=== PATIENT | male | born 1965 | race Caucasian/White ===

== ENCOUNTER 2016-08-04 14:54 | Emergency (ER) | payer OTHER ==
[2016-08-04 15:00] VITALS: BP 171/98; PULSE 112; RESP 20; TEMP 98.1
[2016-08-04] MEDS ORDERED: ACETAMINOPHEN TAB 500 MG TAB PO STA (15:48)
[2016-08-04] MEDS ORDERED: METHOCARBAMOL 500 MG TAB PO STA (15:49)
[2016-08-04] MEDS ORDERED: LIDOCAINE 5% PATCH TOPICAL STA (15:51)
--- NOTE | 2016-08-04 15:57 | ED ---
Fall HPI - General Chief Complaint: Fall Stated Complaint: Fall. Back pain Time Seen by Provider: 08/04/16 15:23 Source: patient Mode of arrival: ambulatory - History of Present Illness Initial Comments: Patient is a 50-year-old male with chronic back and chronic neck pain presenting after mechanical fall yesterday. Fall happened around 4 PM. Patient states he was walking on a deck and slipped on the top of the deck down the 5 stairs to the point where he hit his lower back and his neck on the stairs. Patient denies running. Patient states deck steps were normal and not excessively sloped. He denies hitting his head or loss of consciousness. Patient denies aspirin or anticoagulation. Patient took a [place] 7.5 for his pain. Patient states he lost "a little bit" of stool and urine from injury but that he normally has incontinence. Patient denies fever, chills, chest pain, shortness breath, nausea, vomiting, diarrhea. Patient was able to ambulate into the hospital. Patient was placed in a c-collar at triage. Patient denies weakness, saddle anesthesia. Chart review shows multiple visit for chronic neck and back pain. Last ortho consult 05/27 confirmed that patient has a history of chronic low back pain and right lower extremity radiculopathy. Patient has previously undergone a lumbar fusion at L4-L5 and L5-S1 in 2007 at [facility]. MRI was done 05/26 showing stable post surgical changes of the lumbar spine. - Related Data Home Medications Medication Instructions Recorded Confirmed Diltiazem Cd [Cardizem CD] 240 mg PO DAILY 01/19/14 08/04/16 Omeprazole 20 mg PO DAILY 10/04/14 08/04/16 HYDROcodone/APAP 7.5-325MG [[place] 1 tab PO QID PRN 06/13/16 08/04/16 7.5-325] Lisinopril 40 mg PO DAILY 06/13/16 08/04/16 Allergies Allergy/AdvReac Type Severity Reaction Status Date / Time morphine Allergy Rash/Hives Verified 08/04/16 16:08 ketorolac tromethamine AdvReac Itching Verified 08/04/16 16:08 [From Toradol] metoclopramide HCl AdvReac Unknown Verified 08/04/16 16:08 [From Reglan] prochlorperazine edisylate AdvReac Unknown Verified 08/04/16 16:08 [From Compazine] prochlorperazine maleate AdvReac Unknown Verified 08/04/16 16:08 [From Compazine] Review of Systems ROS Statement: Those systems with pertinent positive or pertinent negative responses have been documented in the HPI. Constitutional: No fever and no chills. HENT: No congestion, no rhinorrhea and no sore throat. Eyes: No discharge and no redness. Respiratory: No cough and no shortness of breath. Cardiovascular: No chest pain and no palpitations. Gastrointestinal: No nausea, no vomiting, no abdominal pain and no diarrhea. Genitourinary: No dysuria and no hematuria. Musculoskeletal: Positive neck and back pain. Skin: No pallor and no rash. Neurological: No dizziness and No headaches. ROS Other: All systems not noted in ROS Statement are negative. Past Medical History Past Medical History: GERD/Reflux, Hypertension, Myocardial Infarction ([place]), Mitral Valve Prolapse (MVP), Pulmonary Embolus (PE), Renal Disease Additional Past Medical History / Comment(s): kidney stones, UTI with urosepsis , renal cysts, chronic back pain with radiation down bilateral legs at times, mitral valve prolapse, "borderline" diabetes, R lower leg fx as 13 yr old, concussion. Last Myocardial Infarction Date:: 2011 History of Any Multi-Drug Resistant Organisms: C-DIFF, MRSA Date of last positivie culture/infection: 2012 MDRO Source:: stool Past Surgical History: Appendectomy, Back Surgery, Cholecystectomy, Heart Catheterization, Hernia Repair Additional Past Surgical History / Comment(s): 2007 back surgery with decompression fusion at [facility], 2011 cardiac cath and plaque "broke up" so no other intervention done, multiple ESWL/ureteral stents/ double J catheters, L inquinal hernia repair, PICC line for ABX for urosepsis-since removed, summer 2015 MRSA infection L axillae and I&D performed. Past Anesthesia/Blood Transfusion Reactions: No Reported Reaction Past Psychological History: No Psychological Hx Reported Additional Psychological History / Comment(s): Pt resides with his mother and stepfather. He uses a cane prn. He drives. He is a . Smoking Status: Never smoker Past Alcohol Use History: None Reported Past Drug Use History: None Reported - Past Family History Mother Family Medical History: Chest Pain / Angina, Congestive Heart Failure (CHF), Osteoarthritis (OA), Thyroid Disorder General Exam - General Exam Comments Initial Comments: Constitutional: Patient appears well-developed and well-nourished. No distress. Head: Normocephalic and atraumatic. Eyes: Conjunctivae and EOM are normal. Right eye exhibits no discharge. Left eye exhibits no discharge. No scleral icterus. Neck: Midline spinous process tenderness and off to the left. C-collar in place. Cardiovascular: Normal rate and regular rhythm. No murmur heard. Pulmonary/Chest: Effort normal and breath sounds normal. No respiratory distress. No wheezes. Abdominal: Soft. No distension. There is no tenderness. There is no rebound and no guarding. : Rectal exam completed with normal tone. Right shoulder: Nontender, no crepitus, no deformity Left shoulder: Nontender, no crepitus, no deformity Right arm: Nontender, no crepitus, no deformity Left arm: Nontender, no crepitus, no deformity Right hand: Nontender, no crepitus, no deformity Left hand: Nontender, no crepitus, no deformity Chest: Nontender, no crepitus, no deformity Pelvis: Stable, nontender, no crepitus, no deformity Back: Lower midline scar present with tenderness along the midline as well as right lower back, no crepitus, no deformity, no step-offs. Positive straight leg test of right leg. Right leg: Nontender, no crepitus, no deformity Left leg: Nontender, no crepitus, no deformity Distal sensation and pulses are present in all 4 extremities. No saddle anesthesia. Neurological: Patient alert and oriented to person, place, and time. Skin: Skin is warm and dry. Not diaphoretic. Nursing notes and vitals reviewed. Limitations: no limitations Course Vital Signs 08/04/16 14:57 Temperature 98.1 F Pulse Rate 112 H Respiratory 20 Rate Blood Pressure 171/98 O2 Sat by Pulse 98 Oximetry - Reevaluation(s) Reevaluation #1: 08/04/16 17:07 Patient given pain control with lidocaine, Tylenol, Robaxin. He is refusing Toradol as it causes him abdominal pain. Informed patient that we will be avoiding opiate medications until CT scan. He is agreeable to this. Medical Decision Making - Medical Decision Making Patient is a 50-year-old male with chronic back and neck pain presenting after mechanical fall. Patient tried [place] at home with some relief. Patient states he had some incontinence but that is old and typical for him. Patient with normal neurological exam, no sound seizure, and normal rectal tone. Patient was able to spontaneous void. Patient was given Robaxin, lidocaine, Tylenol, steroids for his pain. Computed tomography scan was unremarkable for any fracture/dislocations of neck or lumbar spine. Patient states he has [place] at home as well as Robaxin. Patient states he is unable to take Motrin. Patient not requesting lidocaine patch prescription. Patient encouraged to block the pain for 24 hours and then get into a regular back exercise program. Encouraged to return to primary care doctor for possible physical therapy. Also with concern for his narcotic usage -as in the past- he is encouraged to follow up with pain specialist. Prior to discharge, patient was resting comfortably in bed. Course of stay improved. Patient able to get dressed in the room without any difficulty noted. Discussed physical exam and diagnostic tests with patient. Questions answered and patient is agreeable to discharge with close follow up with Primary Care Physician. Instructed to return to Emergency Department if symptoms worsen. - Lab Data Lab Results 08/04/16 Range/Units 17:50 Urine Color Yellow Urine Appearance Clear (Clear) Urine pH 7.5 (5.0-8.0) Ur Specific [place] 1.018 (1.001-1.035) Urine Protein Trace H (Negative) Urine Glucose (UA) Negative (Negative) Urine Ketones Negative (Negative) Urine Blood Negative (Negative) Urine Nitrate Negative (Negative) Urine Bilirubin Negative (Negative) Urine Urobilinogen <2.0 (<2.0) mg/dL Ur Leukocyte Esterase Negative (Negative) Disposition Clinical Impression: Fall, Chronic back pain Disposition: HOME SELF-CARE Condition: Good Instructions: Fall Prevention for Older Adults (ED), Chronic Back Pain (ED), Lower Back Exercises (ED) Additional Instructions: Follow-up with your PCP and/or the pain management referral you're provided the past. Referrals: None,Stated [Primary Care Provider] - 1-2 days
[2016-08-04] MEDS ORDERED: methylPREDNISolone SOD SUCCI 125 MG/2 ML VIAL IM ONE (17:48)
--- NOTE | 2016-08-04 18:07 | CT ---
EXAMINATION TYPE: CT cervical spine wo con DATE OF EXAM: 08/04/2016 5:46 PM COMPARISON: October 28, 2014 HISTORY: Pain post fall yesterday CT DLP: 773.4 mGycm Automated exposure control for dose reduction was used. TECHNIQUE: CT scan of the cervical spine is obtained without contrast, axial images are obtained, sa gittal and coronal reformatted images are also reviewed. FINDINGS: Cervical spine is visualized in its entirety from C1 through upper thoracic levels, demonst rates satisfactory alignment without evidence of acute fracture or dislocation. Prevertebral soft ti ssue appears within normal limits. The C1-C2 articulation is within normal limits on the coronal miguel angel ges. Postsurgical changes are noted, as are scattered mild to moderate cervical spondylosis changes. IMPRESSION: There is no acute fracture or dislocation evident in the cervical spine.
--- NOTE | 2016-08-04 18:12 | CT ---
EXAMINATION TYPE: CT lumbar spine wo con DATE OF EXAM: 08/04/2016 5:45 PM COMPARISON: December 25, 2014 CT HISTORY: Pain post fall CT DLP: 1918.1 mGycm Automated exposure control for dose reduction was used. TECHNIQUE: Unenhanced CT of the lumbar spine was performed. Bone and soft tissue window settings are submitted as well as coronal and sagittal reconstructions. FINDINGS: There is no fracture or malalignment. Postsurgical spinal changes are appreciated: The orthopedic yamilet dware is intact. There is no focal disc protrusion/extrusion. No gokul nerve root impingement evidenc e. Multilevel degenerative disc changes are appreciated, most advanced at the lumbosacral junction. 2 cm right right renal simple appearing cyst appears stable. 2 mm nonobstructing left renal calcifica tion noted. IMPRESSION: NO ACUTE PROCESS.
[2016-08-04 18:21] LABS: Appearance,Urine Clear (Clear); Bilirubin,Urine Negative (Negative); Glucose,Urine (UA) Negative (Negative); Ketones,Urine Negative (Negative); Leukocyte Esterase,Urine Negative (Negative); Nitrite,Urine Negative (Negative); PH, Urine 7.5 (5.0-8.0); Protein,Urine Trace (Negative); Specific Gravity,Urine 1.018 (1.001-1.035); UA Billing (MACRO vs. MICRO) CHEM; Urobilinogen,Urine <2.0 mg/dL (<2.0)
== END 2016-08-04 18:51 | disposition home or self-care (01) ==
LOC: EC 14:54
DX: G89.29 Other chronic pain (principal); M54.5 Low back pain; M54.2 Cervicalgia; W10.8XXA Fall (on) (from) other stairs and steps, initial encounter; R32 Unspecified urinary incontinence; W19.XXXA Unspecified fall, initial encounter; I10 Essential (primary) hypertension; K21.9 Gastro-esophageal reflux disease without esophagitis; I34.1 Nonrheumatic mitral (valve) prolapse; I25.2 Old myocardial infarction; Z79.899 Other long term (current) drug therapy; Z86.711 Personal history of pulmonary embolism; Z88.5 Allergy status to narcotic agent; Z88.6 Allergy status to analgesic agent; Z88.8 Allergy status to other drugs, medicaments and biological substances; Z98.1 Arthrodesis status
CPT/HCPCS: 81003; 72125; 72131; 96372; 99284; J2930

== ENCOUNTER 2017-02-03 18:41 | Emergency (ER) | payer OTHER ==
[2017-02-03] MEDS ORDERED: ONDANSETRON 4 MG/2 ML VIAL IVP STA (20:23)
[2017-02-03] MEDS ORDERED: SODIUM CHLORIDE 0.9% 1,000 ML IV STA (20:23)
[2017-02-03] MEDS ORDERED: HYDROmorphone 1 MG/ML 1 ML SYRINGE IVP STA ×2 (20:23→23:29)
--- NOTE | 2017-02-03 20:31 | ED ---
Abdominal Pain HPI - General Chief Complaint: Abdominal Pain Stated Complaint: Abd Pain Time Seen by Provider: 02/03/17 20:12 Source: patient, RN notes reviewed Mode of arrival: ambulatory Limitations: no limitations - History of Present Illness Initial Comments: Patient is a 51-year-old male presents to the emergency room for evaluation of abdominal pain. Patient states about a month ago he was diagnosed with hiatal hernia. Patient states he is supposed to have a further test done regarding his hiatal hernia in about a week by Dr. Russell. Patient states today he was lifting up his mother and felt a pop and shooting pain in his mid epigastric area. Patient states he is having 10 out of 10 pain. Patient states he feels nauseous. Patient states this pain does feel consistent with his pain he's had over the past few months regarding his hiatal hernia. Patient states he has had cardiac workup in the past which has been negative. Patient denies shortness of breath. Patient denies chest pain. Patient denies headache or dizziness. Patient denies diarrhea or constipation. patient does state that week ago she noticed that he had darker stools. Patient denies any discoloration of stools or bright red blood in the stools currently. Patient states he is just getting over bronchitis. Patient states he recently finished a course of azithromycin. Patient denies cough, runny nose, ear pain, throat pain, headache. Patient states he has history cholecystectomy and appendectomy. - Related Data Home Medications Medication Instructions Recorded Confirmed Diltiazem Cd [Cardizem CD] 240 mg PO QAM 01/19/14 02/03/17 Omeprazole 20 mg PO QAM 10/04/14 02/03/17 HYDROcodone/APAP 7.5-325MG [[place] 1 tab PO TID PRN 06/13/16 02/03/17 7.5-325] Lisinopril 40 mg PO QAM 06/13/16 02/03/17 Atorvastatin [Lipitor] 40 mg PO DAILY 02/03/17 02/03/17 Chlorthalidone 25 mg PO DAILY 02/03/17 02/03/17 Methocarbamol [Robaxin-750] 750 mg PO DAILY PRN 02/03/17 02/03/17 Allergies Allergy/AdvReac Type Severity Reaction Status Date / Time ketorolac tromethamine Allergy Itching Verified 02/03/17 23:02 [From Toradol] morphine Allergy Rash/Hives Verified 02/03/17 19:03 metoclopramide HCl AdvReac Unknown Verified 02/03/17 19:03 [From Reglan] prochlorperazine edisylate AdvReac Unknown Verified 02/03/17 19:03 [From Compazine] prochlorperazine maleate AdvReac Unknown Verified 02/03/17 19:03 [From Compazine] Review of Systems ROS Statement: Those systems with pertinent positive or pertinent negative responses have been documented in the HPI. ROS Other: All systems not noted in ROS Statement are negative. Past Medical History Past Medical History: GERD/Reflux, Hyperlipidemia, Hypertension, Myocardial Infarction ([place]), Mitral Valve Prolapse (MVP), Pulmonary Embolus (PE), Renal Disease, Sleep Apnea/CPAP/BIPAP Additional Past Medical History / Comment(s): Hx kidney stones, UTI with urosepsis, renal cysts, chronic neck and back pain, "herniated, bulging discs, lumbar spine nerve damage" pain sometimes radiates down bilateral legs, R lower leg fx as 13 yr old, concussion. Current tracheal bronchitis, encouraged to notify Dr Russell. Uses CPAP machine. Last Myocardial Infarction Date:: 2011 History of Any Multi-Drug Resistant Organisms: C-DIFF, MRSA Date of last positivie culture/infection: 2015 MDRO Source:: left axilla Past Surgical History: Appendectomy, Back Surgery, Cholecystectomy, Heart Catheterization, Hernia Repair Additional Past Surgical History / Comment(s): 2007 back surgery with decompression fusion at [facility], 2011 cardiac cath, multiple ESWL/ ureteral stents/ double J catheters, L inquinal hernia repair, PICC line for ABX for urosepsis-since removed. Past Anesthesia/Blood Transfusion Reactions: No Reported Reaction Past Psychological History: No Psychological Hx Reported Smoking Status: Never smoker Past Alcohol Use History: None Reported Past Drug Use History: None Reported - Past Family History Mother Family Medical History: Chest Pain / Angina, Congestive Heart Failure (CHF), Osteoarthritis (OA), Thyroid Disorder General Exam - General Exam Comments Initial Comments: laying in exam room, no acute distress. Limitations: no limitations General appearance: alert, in no apparent distress Head exam: Present: atraumatic, normocephalic, normal inspection Eye exam: Present: normal appearance ENT exam: Present: normal exam Neck exam: Present: normal inspection Respiratory exam: Present: normal lung sounds bilaterally. Absent: respiratory distress Cardiovascular Exam: Present: normal rhythm, tachycardia, normal heart sounds GI/Abdominal exam: Present: soft, tenderness (mid epigastric), normal bowel sounds. Absent: distended, guarding, rebound, rigid Rectal exam: Present: normal inspection, normal rectal tone, heme (-) stool Extremities exam: Present: normal inspection Back exam: Present: normal inspection. Absent: CVA tenderness (R), CVA tenderness (L) Neurological exam: Present: alert, oriented X3, CN II-XII intact, normal gait Psychiatric exam: Present: normal affect, normal mood Skin exam: Present: warm, dry, intact, normal color. Absent: rash Course Vital Signs 02/03/17 02/03/17 02/03/17 19:01 22:10 23:37 Temperature 100.5 F H 98.3 F 98.4 F Pulse Rate 117 H 100 95 Respiratory 20 18 18 Rate Blood Pressure 185/103 174/86 181/99 O2 Sat by Pulse 100 98 96 Oximetry Medical Decision Making - Medical Decision Making patient is a 51-year-old male presents to the emergency of her evaluation of upper midepigastric pain. Patient states he was diagnosed with hiatal hernia about a month ago which is being further worked up by Dr. Russell. Labs show no concerning findings. Cardiac workup negative. CT of abdomen/pelvis negative for any acute findings. Fecal occult negative. Patient advised to follow-up with Dr. Russell. Return parameters discussed. Patient states she understands everything that was discussed with him. Case discussed with Dr. Carrillo. patient also and have elevated BP upon discharge. Patient states he hasn't taken his nighttime blood pressure medications yet. I did offer to give patient his medications here. Patient states he would rather take his medications when he gets home. - Lab Data Result diagrams: 02/03/17 21:25 02/03/17 21:25 Lab Results 02/03/17 02/03/17 02/03/17 Range/Units 21:25 21:25 21:25 WBC 9.1 (3.8-10.6) k/uL RBC 4.28 L (4.30-5.90) m/uL Hgb 12.9 L (13.0-17.5) gm/dL Hct 37.1 L (39.0-53.0) % MCV 86.8 (80.0-100.0) fL MCH 30.2 (25.0-35.0) pg MCHC 34.8 (31.0-37.0) g/dL RDW 14.4 (11.5-15.5) % Plt Count 270 (150-450) k/uL Neutrophils % 75 % Lymphocytes % 17 % Monocytes % 4 % Eosinophils % 2 % Basophils % 0 % Neutrophils # 6.8 (1.3-7.7) k/uL Lymphocytes # 1.6 (1.0-4.8) k/uL Monocytes # 0.4 (0-1.0) k/uL Eosinophils # 0.2 (0-0.7) k/uL Basophils # 0.0 (0-0.2) k/uL PT 9.7 (9.0-12.0) sec INR 0.9 (<1.2) APTT 21.0 L (22.0-30.0) sec Sodium 139 (137-145) mmol/L Potassium 4.3 (3.5-5.1) mmol/L Chloride 104 (98-107) mmol/L Carbon Dioxide 23 (22-30) mmol/L Anion Gap 12 mmol/L BUN 10 (9-20) mg/dL Creatinine 0.72 (0.66-1.25) mg/dL Est GFR (MDRD) Af Amer >60 (>60 ml/min/1.73 sqM) Est GFR (MDRD) Non-Af >60 (>60 ml/min/1.73 sqM) Glucose 98 (74-99) mg/dL Plasma Lactic Acid Edd (0.7-2.0) mmol/L Calcium 9.6 (8.4-10.2) mg/dL Magnesium 2.0 (1.6-2.3) mg/dL Total Bilirubin 0.5 (0.2-1.3) mg/dL AST 29 (17-59) U/L ALT 62 (21-72) U/L Alkaline Phosphatase 71 (38-126) U/L Total Creatine Kinase (55-170) U/L CK-MB (CK-2) (0.0-2.4) ng/mL CK-MB (CK-2) Rel Index Troponin I (0.000-0.034) ng/mL Total Protein 7.4 (6.3-8.2) g/dL Albumin 4.5 (3.5-5.0) g/dL Amylase 59 (30-110) U/L Lipase 128 (23-300) U/L Urine Color Urine Appearance (Clear) Urine pH (5.0-8.0) Ur Specific [place] (1.001-1.035) Urine Protein (Negative) Urine Glucose (UA) (Negative) Urine Ketones (Negative) Urine Blood (Negative) Urine Nitrite (Negative) Urine Bilirubin (Negative) Urine Urobilinogen (<2.0) mg/dL Ur Leukocyte Esterase (Negative) Stool Occult Blood (Negative) 02/03/17 02/03/17 02/03/17 Range/Units 21:25 21:25 22:35 WBC (3.8-10.6) k/uL RBC (4.30-5.90) m/uL Hgb (13.0-17.5) gm/dL Hct (39.0-53.0) % MCV (80.0-100.0) fL MCH (25.0-35.0) pg MCHC (31.0-37.0) g/dL RDW (11.5-15.5) % Plt Count (150-450) k/uL Neutrophils % % Lymphocytes % % Monocytes % % Eosinophils % % Basophils % % Neutrophils # (1.3-7.7) k/uL Lymphocytes # (1.0-4.8) k/uL Monocytes # (0-1.0) k/uL Eosinophils # (0-0.7) k/uL Basophils # (0-0.2) k/uL PT (9.0-12.0) sec INR (<1.2) APTT (22.0-30.0) sec Sodium (137-145) mmol/L Potassium (3.5-5.1) mmol/L Chloride (98-107) mmol/L Carbon Dioxide (22-30) mmol/L Anion Gap mmol/L BUN (9-20) mg/dL Creatinine (0.66-1.25) mg/dL Est GFR (MDRD) Af Amer (>60 ml/min/1.73 sqM) Est GFR (MDRD) Non-Af (>60 ml/min/1.73 sqM) Glucose (74-99) mg/dL Plasma Lactic Acid Edd 1.4 (0.7-2.0) mmol/L Calcium (8.4-10.2) mg/dL Magnesium (1.6-2.3) mg/dL Total Bilirubin (0.2-1.3) mg/dL AST (17-59) U/L ALT (21-72) U/L Alkaline Phosphatase (38-126) U/L Total Creatine Kinase 167 (55-170) U/L CK-MB (CK-2) 0.9 (0.0-2.4) ng/mL CK-MB (CK-2) Rel Index 0.5 Troponin I <0.012 (0.000-0.034) ng/mL Total Protein (6.3-8.2) g/dL Albumin (3.5-5.0) g/dL Amylase (30-110) U/L Lipase (23-300) U/L Urine Color Yellow Urine Appearance Clear (Clear) Urine pH 5.5 (5.0-8.0) Ur Specific [place] 1.022 (1.001-1.035) Urine Protein Negative (Negative) Urine Glucose (UA) Negative (Negative) Urine Ketones Negative (Negative) Urine Blood Negative (Negative) Urine Nitrite Negative (Negative) Urine Bilirubin Negative (Negative) Urine Urobilinogen <2.0 (<2.0) mg/dL Ur Leukocyte Esterase Negative (Negative) Stool Occult Blood (Negative) 02/03/17 Range/Units 22:35 WBC (3.8-10.6) k/uL RBC (4.30-5.90) m/uL Hgb (13.0-17.5) gm/dL Hct (39.0-53.0) % MCV (80.0-100.0) fL MCH (25.0-35.0) pg MCHC (31.0-37.0) g/dL RDW (11.5-15.5) % Plt Count (150-450) k/uL Neutrophils % % Lymphocytes % % Monocytes % % Eosinophils % % Basophils % % Neutrophils # (1.3-7.7) k/uL Lymphocytes # (1.0-4.8) k/uL Monocytes # (0-1.0) k/uL Eosinophils # (0-0.7) k/uL Basophils # (0-0.2) k/uL PT (9.0-12.0) sec INR (<1.2) APTT (22.0-30.0) sec Sodium (137-145) mmol/L Potassium (3.5-5.1) mmol/L Chloride (98-107) mmol/L Carbon Dioxide (22-30) mmol/L Anion Gap mmol/L BUN (9-20) mg/dL Creatinine (0.66-1.25) mg/dL Est GFR (MDRD) Af Amer (>60 ml/min/1.73 sqM) Est GFR (MDRD) Non-Af (>60 ml/min/1.73 sqM) Glucose (74-99) mg/dL Plasma Lactic Acid Edd (0.7-2.0) mmol/L Calcium (8.4-10.2) mg/dL Magnesium (1.6-2.3) mg/dL Total Bilirubin (0.2-1.3) mg/dL AST (17-59) U/L ALT (21-72) U/L Alkaline Phosphatase (38-126) U/L Total Creatine Kinase (55-170) U/L CK-MB (CK-2) (0.0-2.4) ng/mL CK-MB (CK-2) Rel Index Troponin I (0.000-0.034) ng/mL Total Protein (6.3-8.2) g/dL Albumin (3.5-5.0) g/dL Amylase (30-110) U/L Lipase (23-300) U/L Urine Color Urine Appearance (Clear) Urine pH (5.0-8.0) Ur Specific [place] (1.001-1.035) Urine Protein (Negative) Urine Glucose (UA) (Negative) Urine Ketones (Negative) Urine Blood (Negative) Urine Nitrite (Negative) Urine Bilirubin (Negative) Urine Urobilinogen (<2.0) mg/dL Ur Leukocyte Esterase (Negative) Stool Occult Blood Negative (Negative) - Radiology Data Radiology results: report reviewed, image reviewed Disposition Clinical Impression: Abdominal pain Disposition: HOME SELF-CARE Condition: Good Instructions: Abdominal Pain (ED) Additional Instructions: Please follow-up with GI specialist. If any new symptom arises or symptoms worsen, return to ER as soon as possible. Referrals: Trav Muniz MD [Primary Care Provider] - 1-2 days Geronimo Russell MD [STAFF PHYSICIAN] - 1-2 days Time of Disposition: 23:34
[2017-02-03 21:31] LABS: Basophils % (A) 0 %; CH 29.6; CHCM 34.2; Eosinophils # (A) 0.2 k/uL (0-0.7); Eosinophils % (A) 2 %; HCT 37.1 % (39.0-53.0); HGB 12.9 gm/dL (13.0-17.5); Luc # (Auto) 0.15; Luc % (Auto) 2; Lymphocytes # (A) 1.6 k/uL (1.0-4.8); Lymphocytes % (A) 17 %; MCH 30.2 pg (25.0-35.0); MCHC 34.8 g/dL (31.0-37.0); MCV 86.8 fL (80.0-100.0); Mean Platelet Volume 6.5; Monocytes # (A) 0.4 k/uL (0-1.0); Monocytes % (A) 4 %; Neutrophils # (A) 6.8 k/uL (1.3-7.7); Neutrophils % (A) 75 %; RBC 4.28 m/uL (4.30-5.90); RDW 14.4 % (11.5-15.5); WBC 9.1 k/uL (3.8-10.6); WBC (Perox) 9.37
[2017-02-03 21:39] LABS: INR 0.9 (<1.2); Prothrombin Time 9.7 sec (9.0-12.0)
[2017-02-03 21:42] LABS: ALT 62 U/L (21-72); AST 29 U/L (17-59); Alkaline Phosphatase 71 U/L (38-126); Amylase 59 U/L (30-110); Anion Gap 12 mmol/L; Blood Urea Nitrogen 10 mg/dL (9-20); Calcium 9.6 mg/dL (8.4-10.2); Carbon Dioxide 23 mmol/L (22-30); Chloride 104 mmol/L (98-107); Glucose 98 mg/dL (74-99); Non-African American GFR(MDRD) >60 (>60 ml/min/1.73 sqM); Potassium 4.3 mmol/L (3.5-5.1); Sodium 139 mmol/L (137-145); Total Bilirubin 0.5 mg/dL (0.2-1.3); Total Protein 7.4 g/dL (6.3-8.2)
[2017-02-03 21:50] LABS: Creatine Kinase 167 U/L (55-170)
--- NOTE | 2017-02-03 22:01 | XR ---
EXAMINATION TYPE: XR chest 2V DATE OF EXAM: 02/03/2017 COMPARISON: 06/13/2016 HISTORY: Chest pain TECHNIQUE: Frontal and lateral views of the chest are obtained. FINDINGS: There is no heart failure nor confluent pneumonic infiltrate. There are no hilar masses. T here is some pleural thickening along the left and right lateral chest wall probably related to lipom atosis. Bony thorax is intact. IMPRESSION: No active cardiopulmonary disease. No change.
[2017-02-03 22:03] LABS: Creatine Kinase MB 0.9 ng/mL (0.0-2.4); Troponin I <0.012 ng/mL (0.000-0.034)
[2017-02-03 22:12] VITALS: RESP 18
[2017-02-03] MEDS ORDERED: RX INFO: IV CONTRAST WAS GIVEN 1 EACH MISC MISCELLANE PRN (22:17)
[2017-02-03 22:48] LABS: Appearance,Urine Clear (Clear); Bilirubin,Urine Negative (Negative); Glucose,Urine (UA) Negative (Negative); Ketones,Urine Negative (Negative); Leukocyte Esterase,Urine Negative (Negative); Nitrite,Urine Negative (Negative); PH, Urine 5.5 (5.0-8.0); Protein,Urine Negative (Negative); Specific Gravity,Urine 1.022 (1.001-1.035); UA Billing (MACRO vs. MICRO) CHEM; Urobilinogen,Urine <2.0 mg/dL (<2.0)
--- NOTE | 2017-02-03 23:13 | CT ---
EXAM: CT Abdomen and Pelvis With Intravenous Contrast. CLINICAL HISTORY: Reason: Pain TECHNIQUE: Axial computed tomography images of the abdomen and pelvis with intravenous contrast. CTDI is 21.2 mGy and DLP is 1095.5 mGy-cm. This CT exam was performed using one or more of the following dose reduction techniques: automated exposure control, adjustment of the mA and/or kV according to patient size, and/or use of iterative reconstruction technique. COMPARISON: 10/05/14 FINDINGS: Lower thorax: No acute findings. ABDOMEN: Liver: Unremarkable. No mass. Gallbladder and bile ducts: Previous cholecystectomy. No ductal dilation. Pancreas: Unremarkable. No ductal dilation. No mass. Spleen: Unremarkable. No splenomegaly. Adrenals: Unremarkable. No mass. Kidneys and ureters: 2.5 cm right renal cyst. No hydronephrosis. PELVIS: Bladder: Unremarkable. No mass. Reproductive: Unremarkable as visualized. Appendix: No findings to suggest acute appendicitis. ABDOMEN + PELVIS: Stomach and bowel: Unremarkable. No obstruction. No mucosal thickening. Peritoneum: Unremarkable. No significant fluid collection. No free air. Lymph nodes: Unremarkable. No enlarged lymph nodes. Vasculature: Unremarkable. No aortic aneurysm. Bones: Changes of previous lower lumbar laminectomy and posterior fusion. No acute fracture. IMPRESSION: 1. No acute findings in the chest. 2. Previous cholecystectomy. 3. Simple appearing 2.5 cm right renal cyst.
[2017-02-03] MEDS ORDERED: FAMOTIDINE 20 MG/2 ML VIAL IV STA (23:28)
[2017-02-03 23:38] VITALS: PULSE 95; TEMP 98.4
[2017-02-03 23:41] VITALS: BP 181/99
== END 2017-02-03 23:56 | disposition home or self-care (01) ==
LOC: EC 18:41
DX: R10.13 Epigastric pain (principal); R11.0 Nausea; R00.0 Tachycardia, unspecified; E78.5 Hyperlipidemia, unspecified; I10 Essential (primary) hypertension; K21.9 Gastro-esophageal reflux disease without esophagitis; I25.2 Old myocardial infarction; N28.89 Other specified disorders of kidney and ureter; Z79.899 Other long term (current) drug therapy; Z88.5 Allergy status to narcotic agent; Z88.6 Allergy status to analgesic agent; Z88.8 Allergy status to other drugs, medicaments and biological substances; Z90.49 Acquired absence of other specified parts of digestive tract
CPT/HCPCS: 36415; 93005; 80053; 82150; 82550; 82553; 83605; 83690; 83735; 84484; 85025; 85610; 85730; 82272; 81003; 71020; 87040; 74177; 99284; 96374; 96375 ×2; 96376; 96361 ×2; J2405; J1170; Q9967

== ENCOUNTER 2017-03-06 16:03 | Emergency (ER) | payer OTHER ==
[2017-03-06] MEDS ORDERED: DIAZEPAM 5 MG/ML 2 ML SYRINGE IVP STA (16:27)
[2017-03-06] MEDS ORDERED: RX INFO: IV CONTRAST WAS GIVEN 1 EACH MISC MISCELLANE PRN (16:27)
[2017-03-06] MEDS ORDERED: SODIUM CHLORIDE 0.9% 1,000 ML IV ONE (16:27)
[2017-03-06] MEDS ORDERED: IOHEXOL 350 MG/ML 25 ML BOTTLE (ORAL USE) PO PRN (16:27)
--- NOTE | 2017-03-06 16:39 | ED ---
Abdominal Pain HPI - General Chief Complaint: Abdominal Pain Stated Complaint: Abd Pain Time Seen by Provider: 03/06/17 16:15 Source: patient Mode of arrival: ambulatory Limitations: no limitations - History of Present Illness Initial Comments: Patient is a 51-year-old male presents with a chief complaint of abdominal pain. Patient states he was diagnosed with a hernia that is associated with his previous cholecystectomy scar. Patient states that he has been seen by general surgery who is hesitant to operate. Patient states that today around 10 this morning he was lifting a heavy box and felt a pop. He says since that he has had increased pain. He states he takes [place] at home. Review of shows the patient has had several recent [place] prescriptions written. Pain is aggravated by certain movements, though the patient states it is constant today. It is alleviated by pressure MD Complaint: abdominal pain Onset/Timin -: hour(s) Location: RUQ Radiation: none Migration to: no migration Severity: moderate Quality: stabbing, sharp Consistency: constant Improves With: nothing Worsens With: nothing Context: other (Hernia) Associated Symptoms: denies other symptoms - Related Data Home Medications Medication Instructions Recorded Confirmed Diltiazem Cd [Cardizem CD] 240 mg PO DAILY 01/19/14 03/06/17 Omeprazole 20 mg PO DAILY 10/04/14 03/06/17 HYDROcodone/APAP 7.5-325MG [[place] 1 tab PO TID PRN 06/13/16 03/06/17 7.5-325] Lisinopril 40 mg PO DAILY 06/13/16 03/06/17 Atorvastatin [Lipitor] 40 mg PO DAILY 02/03/17 03/06/17 Chlorthalidone 25 mg PO DAILY 02/03/17 03/06/17 Allergies Allergy/AdvReac Type Severity Reaction Status Date / Time ketorolac tromethamine Allergy Itching Verified 03/06/17 17:24 [From Toradol] morphine Allergy Rash/Hives Verified 03/06/17 17:24 metoclopramide HCl AdvReac Unknown Verified 03/06/17 17:24 [From Reglan] prochlorperazine edisylate AdvReac Unknown Verified 03/06/17 17:24 [From Compazine] prochlorperazine maleate AdvReac Unknown Verified 03/06/17 17:24 [From Compazine] Review of Systems ROS Statement: Those systems with pertinent positive or pertinent negative responses have been documented in the HPI. ROS Other: All systems not noted in ROS Statement are negative. Constitutional: Denies: fever, chills Eyes: Denies: vision change ENT: Denies: ear pain, throat pain Respiratory: Denies: cough, dyspnea Cardiovascular: Denies: chest pain, dyspnea on exertion Endocrine: Denies: fatigue Gastrointestinal: Reports: abdominal pain. Denies: nausea, vomiting Genitourinary: Denies: urgency, dysuria Musculoskeletal: Denies: back pain Skin: Denies: rash Neurological: Denies: headache Past Medical History Past Medical History: GERD/Reflux, Hyperlipidemia, Hypertension, Myocardial Infarction ([place]), Mitral Valve Prolapse (MVP), Pulmonary Embolus (PE), Renal Disease, Sleep Apnea/CPAP/BIPAP Additional Past Medical History / Comment(s): Hx kidney stones, UTI with urosepsis, renal cysts, chronic neck and back pain, "herniated, bulging discs, lumbar spine nerve damage" pain sometimes radiates down bilateral legs, R lower leg fx as 13 yr old, concussion. Current tracheal bronchitis, encouraged to notify Dr Russell. Uses CPAP machine. Last Myocardial Infarction Date:: 2011 History of Any Multi-Drug Resistant Organisms: C-DIFF, MRSA Date of last positivie culture/infection: 2015 MDRO Source:: left axilla Past Surgical History: Appendectomy, Back Surgery, Cholecystectomy, Heart Catheterization, Hernia Repair Additional Past Surgical History / Comment(s): 2007 back surgery with decompression fusion at , 2011 cardiac cath, multiple ESWL/ ureteral stents/ double J catheters, L inquinal hernia repair, PICC line for ABX for urosepsis-since removed. Past Anesthesia/Blood Transfusion Reactions: No Reported Reaction Past Psychological History: No Psychological Hx Reported Smoking Status: Never smoker Past Alcohol Use History: None Reported Past Drug Use History: None Reported - Past Family History Mother Family Medical History: Chest Pain / Angina, Congestive Heart Failure (CHF), Osteoarthritis (OA), Thyroid Disorder General Exam Limitations: no limitations General appearance: alert, in distress (Patient is in mild distress secondary to pain.) Head exam: Present: atraumatic, normocephalic Eye exam: Present: normal appearance ENT exam: Present: normal exam Neck exam: Present: normal inspection Respiratory exam: Present: normal lung sounds bilaterally. Absent: respiratory distress, wheezes Cardiovascular Exam: Present: normal rhythm, tachycardia, normal heart sounds GI/Abdominal exam: Present: soft, tenderness (Patient has tenderness along the right upper quadrant incision that he got when he had an open cholecystectomy. There is no obvious defect felt. The skin overlying the affected area is not discolored and appears normal abdomen is non-peritoneal). Absent: distended Rectal exam: Present: deferred Extremities exam: Present: normal inspection Back exam: Present: normal inspection Neurological exam: Present: alert, oriented X3 Psychiatric exam: Present: anxious Skin exam: Present: warm, dry, intact Course Vital Signs 03/06/17 16:04 Temperature 98.5 F Pulse Rate 114 H Respiratory 20 Rate Blood Pressure 178/100 O2 Sat by Pulse 100 Oximetry Medical Decision Making - Medical Decision Making Patient presents with a chief complaint of acute onset abdominal pain starting at 10:00 this morning. Patient states that he has an incisional hernia that he had been followed with surgery for. History and physical examination is somewhat suspect as patient's pain seems out of proportion to exam findings. Exam is limited secondary to body habitus as patient's abdomen is obese. We'll send basic lab work, we'll likely send the patient for CT abdomen and pelvis with contrast. Nursing staff was unable to obtain IV access, therefore access was obtained via ultrasound guidance. 6:34 PM Review of patient's labs are unremarkable including a negative lactic acid, lipase, liver functions. CT exam with IV and oral contrast did not show any acute intra-abdominal abnormality. There is no evidence of incarcerated hernia at this time. On reexamination, after 5 mg of IV Valium, the patient still appears to be in significant pain. He was updated on his results and appears to be satisfied with discharge. report was reviewed, patient is prescribed [place] about every 2 weeks, and there are several different prescribers. This time there is suspicion for drug-seeking behavior. Patient was instructed to follow-up with his primary care doctor and general surgery as needed. He is further instructed to return to the emergency department if his symptoms worsen or change in any way. - Lab Data Result diagrams: 03/06/17 17:11 03/06/17 17:11 Lab Results 03/06/17 03/06/17 03/06/17 Range/Units 17:11 17:11 17:11 WBC 7.8 (3.8-10.6) k/uL RBC 4.53 (4.30-5.90) m/uL Hgb 13.3 (13.0-17.5) gm/dL Hct 40.2 (39.0-53.0) % MCV 88.7 (80.0-100.0) fL MCH 29.4 (25.0-35.0) pg MCHC 33.2 (31.0-37.0) g/dL RDW 14.8 (11.5-15.5) % Plt Count 291 (150-450) k/uL Neutrophils % 76 % Lymphocytes % 16 % Monocytes % 4 % Eosinophils % 2 % Basophils % 1 % Neutrophils # 5.9 (1.3-7.7) k/uL Lymphocytes # 1.3 (1.0-4.8) k/uL Monocytes # 0.3 (0-1.0) k/uL Eosinophils # 0.2 (0-0.7) k/uL Basophils # 0.1 (0-0.2) k/uL Sodium 139 (137-145) mmol/L Potassium 4.4 (3.5-5.1) mmol/L Chloride 106 (98-107) mmol/L Carbon Dioxide 23 (22-30) mmol/L Anion Gap 10 mmol/L BUN 12 (9-20) mg/dL Creatinine 0.75 (0.66-1.25) mg/dL Est GFR (MDRD) Af Amer >60 (>60 ml/min/1.73 sqM) Est GFR (MDRD) Non-Af >60 (>60 ml/min/1.73 sqM) Glucose 97 (74-99) mg/dL Plasma Lactic Acid Edd 1.4 (0.7-2.0) mmol/L Calcium 9.6 (8.4-10.2) mg/dL Magnesium 1.9 (1.6-2.3) mg/dL Total Bilirubin 0.5 (0.2-1.3) mg/dL AST 33 (17-59) U/L ALT 57 (21-72) U/L Alkaline Phosphatase 75 (38-126) U/L Total Protein 7.7 (6.3-8.2) g/dL Albumin 4.8 (3.5-5.0) g/dL Lipase 80 (23-300) U/L Disposition Clinical Impression: Abdominal pain, Muscle spasm, Constipation Disposition: HOME SELF-CARE Condition: Good Instructions: Abdominal Pain (ED), Ventral Hernia (ED) Referrals: Trav Muniz MD [Primary Care Provider] - 1-2 days
[2017-03-06 17:22] LABS: Basophils # (A) 0.1 k/uL (0-0.2); Basophils % (A) 1 %; CH 30.5; CHCM 34.6; Eosinophils # (A) 0.2 k/uL (0-0.7); Eosinophils % (A) 2 %; HCT 40.2 % (39.0-53.0); HDW 2.63; HGB 13.3 gm/dL (13.0-17.5); Luc # (Auto) 0.12; Luc % (Auto) 2; Lymphocytes # (A) 1.3 k/uL (1.0-4.8); Lymphocytes % (A) 16 %; MCH 29.4 pg (25.0-35.0); MCHC 33.2 g/dL (31.0-37.0); MCV 88.7 fL (80.0-100.0); Mean Platelet Volume 6.9; Monocytes # (A) 0.3 k/uL (0-1.0); Monocytes % (A) 4 %; Neutrophils # (A) 5.9 k/uL (1.3-7.7); Neutrophils % (A) 76 %; RBC 4.53 m/uL (4.30-5.90); RDW 14.8 % (11.5-15.5); WBC 7.8 k/uL (3.8-10.6); WBC (Perox) 7.89
[2017-03-06 17:31] LABS: ALT 57 U/L (21-72); AST 33 U/L (17-59); Alkaline Phosphatase 75 U/L (38-126); Anion Gap 10 mmol/L; Blood Urea Nitrogen 12 mg/dL (9-20); Calcium 9.6 mg/dL (8.4-10.2); Carbon Dioxide 23 mmol/L (22-30); Chloride 106 mmol/L (98-107); Glucose 97 mg/dL (74-99); Magnesium 1.9 mg/dL (1.6-2.3); Non-African American GFR(MDRD) >60 (>60 ml/min/1.73 sqM); Potassium 4.4 mmol/L (3.5-5.1); Sodium 139 mmol/L (137-145); Total Bilirubin 0.5 mg/dL (0.2-1.3); Total Protein 7.7 g/dL (6.3-8.2)
--- NOTE | 2017-03-06 18:30 | CT ---
EXAMINATION TYPE: CT abdomen pelvis w con DATE OF EXAM: 03/06/2017 COMPARISON: 01/26/2017 HISTORY: Upper abdominal pain. CT DLP: 1788 mGycm Automated exposure control for dose reduction was used. TECHNIQUE: Helical acquisition of images was performed from the lung bases through the pelvis. CONTRAST: Performed with Oral Contrast and with IV Contrast, patient injected with 100 mL of Omnipaque 300. FINDINGS: Lung bases are clear of consolidation. There is no pleural effusion. Liver shows no focal defect. The re are clips from cholecystectomy. Bile ducts are not dilated. Spleen and pancreas appear normal. There is no adrenal mass. There is a 3 cm cortical cyst on the anterior right kidney. There is no hyd ronephrosis. Ureters are not dilated. There is no retroperitoneal adenopathy. Bladder distends smooth ly. There is no ascites. There is no sign of a pelvic mass. Appendix is not seen. There is no sign of appendicitis. There is metal artifact from lumbar spine surgery. Vertebra have normal alignment. IMPRESSION: RIGHT RENAL CORTICAL CYST. NO SIGN OF ACUTE ABDOMEN AND PELVIS. NO ADVERSE CHANGE COMPARED TO OLD EXA M. I do not see a cause for upper abdominal pain.
[2017-03-06 19:08] VITALS: BP 170/108; PULSE 95; RESP 16; TEMP 97.8
== END 2017-03-06 19:21 | disposition home or self-care (01) ==
LOC: EC 16:03
DX: K59.00 Constipation, unspecified (principal); M62.838 Other muscle spasm; F41.9 Anxiety disorder, unspecified; R00.0 Tachycardia, unspecified; R10.11 Right upper quadrant pain; E78.5 Hyperlipidemia, unspecified; I10 Essential (primary) hypertension; K21.9 Gastro-esophageal reflux disease without esophagitis; N28.89 Other specified disorders of kidney and ureter; I25.2 Old myocardial infarction; Z88.5 Allergy status to narcotic agent; Z88.6 Allergy status to analgesic agent; Z88.8 Allergy status to other drugs, medicaments and biological substances; Z90.49 Acquired absence of other specified parts of digestive tract; Z79.899 Other long term (current) drug therapy
CPT/HCPCS: 36415; 80053; 83605; 83690; 83735; 85025; 74177; 99284; 96374; 96361; J3360; Q9967

== ENCOUNTER 2017-05-22 16:14 | Inpatient (IN) | payer OTHER ==
[2017-05-22] MEDS ORDERED: HYDROmorphone 0.5 MG/0.5 ML SYRINGE IVP STA ×2 (16:25→18:38)
[2017-05-22] MEDS ORDERED: LABETALOL 5 MG/ML VIAL MDV IVP STA (16:25)
[2017-05-22] MEDS ORDERED: SODIUM CHLORIDE 0.9% 500 ML IV STA (16:25)
[2017-05-22] MEDS ORDERED: SODIUM CHLORIDE 0.9% 1,000 ML IV STA (16:25)
[2017-05-22] MEDS ORDERED: ACETAMINOPHEN IV (For NPO) 1,000 MG in EMPTY BAG 1 BAG IVPB STA (16:27)
--- NOTE | 2017-05-22 16:28 | ED ---
General Adult HPI - General Chief complaint: Chest Pain Stated complaint: Chest Pain Time Seen by Provider: 05/22/17 16:24 Source: patient, RN notes reviewed, old records reviewed Mode of arrival: wheelchair Limitations: no limitations - History of Present Illness Initial comments: this is a 51-year-old male to the ER for evaluation. This patient presented for evaluation regarding chest pain service of breath chest heaviness. Patient is prolonged significant medical history. History of chest pain. Symptoms started after going for a walker today. He tried laid down to improved symptoms of symptoms came back and were worse. Patient notes his blood pressure was also elevated. He also had to be mildly sweaty with a recent fever. No travel history no known sick contacts. Patient does not remember when his last time he was evaluated regarding heart or chest pain - Related Data Home Medications Medication Instructions Recorded Confirmed Diltiazem Cd [Cardizem CD] 240 mg PO DAILY 01/19/14 05/22/17 Omeprazole 20 mg PO BID 10/04/14 05/22/17 HYDROcodone/APAP 7.5-325MG [[place] 1 tab PO QID PRN 06/13/16 05/22/17 7.5-325] Atorvastatin [Lipitor] 40 mg PO DAILY 02/03/17 05/22/17 Lisinopril [Prinivil] 20 mg PO DAILY 03/28/17 05/22/17 Chlorthalidone 25 mg PO DAILY 05/22/17 05/22/17 Methocarbamol [Robaxin] 750 mg PO TID 05/22/17 05/22/17 Tamsulosin HCl [Flomax] 0.4 mg PO DAILY 05/22/17 05/22/17 Allergies Allergy/AdvReac Type Severity Reaction Status Date / Time ketorolac tromethamine Allergy Itching Verified 05/22/17 16:59 [From Toradol] morphine Allergy Rash/Hives Verified 05/22/17 16:59 metoclopramide HCl AdvReac Unknown Verified 05/22/17 16:59 [From Reglan] prochlorperazine edisylate AdvReac Unknown Verified 05/22/17 16:59 [From Compazine] prochlorperazine maleate AdvReac Unknown Verified 05/22/17 16:59 [From Compazine] Review of Systems ROS Statement: Those systems with pertinent positive or pertinent negative responses have been documented in the HPI. ROS Other: All systems not noted in ROS Statement are negative. Past Medical History Past Medical History: GERD/Reflux, Hyperlipidemia, Hypertension, Myocardial Infarction ([place]), Mitral Valve Prolapse (MVP), Pulmonary Embolus (PE), Renal Disease, Sleep Apnea/CPAP/BIPAP Additional Past Medical History / Comment(s): Hx kidney stones, UTI with urosepsis, renal cysts, chronic neck and back pain, "herniated, bulging discs, lumbar spine nerve damage" pain sometimes radiates down bilateral legs, R lower leg fx as 13 yr old, concussion. Uses CPAP machine., PT STATES RESCHEDULED ESOPHAGEAL FUNCTION AND MANOMETRY TESTING DUE TO BRONCHITIS WHICH HAS RESOLVED. Last Myocardial Infarction Date:: 2011 History of Any Multi-Drug Resistant Organisms: C-DIFF, MRSA Date of last positivie culture/infection: 2015 MDRO Source:: left axilla Past Surgical History: Appendectomy, Back Surgery, Cholecystectomy, Heart Catheterization, Hernia Repair Additional Past Surgical History / Comment(s): 2007 back surgery with decompression fusion at [facility], 2011 cardiac cath, multiple ESWL/ ureteral stents/ double J catheters, L inquinal hernia repair, PICC line for ABX for urosepsis-since removed. Past Anesthesia/Blood Transfusion Reactions: No Reported Reaction Past Psychological History: No Psychological Hx Reported Smoking Status: Never smoker Past Alcohol Use History: None Reported Past Drug Use History: None Reported - Past Family History Mother Family Medical History: Chest Pain / Angina, Congestive Heart Failure (CHF), Osteoarthritis (OA), Thyroid Disorder General Exam Limitations: no limitations General appearance: alert, in no apparent distress, anxious, obese Head exam: Present: atraumatic, normocephalic, normal inspection Eye exam: Present: normal appearance, PERRL, EOMI. Absent: scleral icterus, conjunctival injection, periorbital swelling ENT exam: Present: normal exam, mucous membranes moist Neck exam: Present: normal inspection. Absent: tenderness, meningismus, lymphadenopathy Respiratory exam: Present: normal lung sounds bilaterally. Absent: respiratory distress, wheezes, rales, rhonchi, stridor Cardiovascular Exam: Present: normal rhythm, tachycardia, normal heart sounds. Absent: systolic murmur, diastolic murmur, rubs, gallop, clicks GI/Abdominal exam: Present: soft, normal bowel sounds. Absent: distended, tenderness, guarding, rebound, rigid Extremities exam: Present: normal inspection, full ROM, normal capillary refill. Absent: tenderness, pedal edema, joint swelling, calf tenderness Back exam: Present: normal inspection Neurological exam: Present: alert, oriented X3, CN II-XII intact Psychiatric exam: Present: normal affect, normal mood Skin exam: Present: warm, dry, intact, normal color. Absent: rash Course Vital Signs 05/22/17 05/22/17 05/22/17 16:15 16:53 17:21 Temperature 100.3 F H Pulse Rate 18 L 115 H 118 H Respiratory 126 H 24 22 Rate Blood Pressure 213/107 178/104 173/108 O2 Sat by Pulse 987 H 99 99 Oximetry 05/22/17 05/22/17 05/22/17 17:40 18:00 18:46 Temperature Pulse Rate 94 89 96 Respiratory 22 22 22 Rate Blood Pressure 153/86 144/84 160/87 O2 Sat by Pulse 97 97 99 Oximetry 05/22/17 19:07 Temperature 99.0 F Pulse Rate 90 Respiratory 18 Rate Blood Pressure 161/87 O2 Sat by Pulse 96 Oximetry - Reevaluation(s) Reevaluation #1: 05/22/17 16:27 patient's about pain control, fever control EKG Findings - EKG Comments: EKG Findings:: EKG shows sinus tachycardia rate of 1.5, para 4, QRS 110, QTc 461. repeat. EKG shows normal sinus rhythm rate of 95, WI 152, QRS 112, QTC 482 Medical Decision Making - Medical Decision Making 51 male the ER for evaluation regarding chest pain and shortness of breath. Patient has history of heart disease coming in for chest pain observation [place] patient is also fever of unknown origin. Will admit patient to observe for fever or febrile changes, symptoms. Otherwise CT at this time is negative for PE. Labwork otherwise normal. - Lab Data Result diagrams: 05/22/17 17:10 05/22/17 17:10 Lab Results 05/22/17 05/22/17 05/22/17 Range/Units 17:10 17:10 17:10 WBC 7.2 (3.8-10.6) k/uL RBC 5.02 (4.30-5.90) m/uL Hgb 14.2 (13.0-17.5) gm/dL Hct 43.5 (39.0-53.0) % MCV 86.8 (80.0-100.0) fL MCH 28.3 (25.0-35.0) pg MCHC 32.7 (31.0-37.0) g/dL RDW 13.7 (11.5-15.5) % Plt Count 305 (150-450) k/uL Neutrophils % 65 % Lymphocytes % 22 % Monocytes % 7 % Eosinophils % 2 % Basophils % 1 % Neutrophils # 4.7 (1.3-7.7) k/uL Lymphocytes # 1.6 (1.0-4.8) k/uL Monocytes # 0.5 (0-1.0) k/uL Eosinophils # 0.2 (0-0.7) k/uL Basophils # 0.1 (0-0.2) k/uL PT (9.0-12.0) sec INR (<1.2) APTT (22.0-30.0) sec D-Dimer (<0.60) mg/L FEU Sodium 142 (137-145) mmol/L Potassium 4.3 (3.5-5.1) mmol/L Chloride 105 (98-107) mmol/L Carbon Dioxide 24 (22-30) mmol/L Anion Gap 13 mmol/L BUN 14 (9-20) mg/dL Creatinine 0.90 (0.66-1.25) mg/dL Est GFR (MDRD) Af Amer >60 (>60 ml/min/1.73 sqM) Est GFR (MDRD) Non-Af >60 (>60 ml/min/1.73 sqM) Glucose 110 H (74-99) mg/dL Plasma Lactic Acid Edd (0.7-2.0) mmol/L Calcium 10.3 H (8.4-10.2) mg/dL Magnesium 2.1 (1.6-2.3) mg/dL Total Bilirubin 0.6 (0.2-1.3) mg/dL AST 34 (17-59) U/L ALT 55 (21-72) U/L Alkaline Phosphatase 83 (38-126) U/L Total Creatine Kinase 263 H (55-170) U/L CK-MB (CK-2) 1.0 (0.0-2.4) ng/mL CK-MB (CK-2) Rel Index 0.4 Troponin I <0.012 (0.000-0.034) ng/mL NT-Pro-B Natriuret Pep pg/mL Total Protein 8.0 (6.3-8.2) g/dL Albumin 4.8 (3.5-5.0) g/dL Lipase 58 (23-300) U/L 05/22/17 05/22/17 05/22/17 Range/Units 17:10 17:10 17:10 WBC (3.8-10.6) k/uL RBC (4.30-5.90) m/uL Hgb (13.0-17.5) gm/dL Hct (39.0-53.0) % MCV (80.0-100.0) fL MCH (25.0-35.0) pg MCHC (31.0-37.0) g/dL RDW (11.5-15.5) % Plt Count (150-450) k/uL Neutrophils % % Lymphocytes % % Monocytes % % Eosinophils % % Basophils % % Neutrophils # (1.3-7.7) k/uL Lymphocytes # (1.0-4.8) k/uL Monocytes # (0-1.0) k/uL Eosinophils # (0-0.7) k/uL Basophils # (0-0.2) k/uL PT 10.1 (9.0-12.0) sec INR 1.0 (<1.2) APTT 24.1 (22.0-30.0) sec D-Dimer 0.73 H (<0.60) mg/L FEU Sodium (137-145) mmol/L Potassium (3.5-5.1) mmol/L Chloride (98-107) mmol/L Carbon Dioxide (22-30) mmol/L Anion Gap mmol/L BUN (9-20) mg/dL Creatinine (0.66-1.25) mg/dL Est GFR (MDRD) Af Amer (>60 ml/min/1.73 sqM) Est GFR (MDRD) Non-Af (>60 ml/min/1.73 sqM) Glucose (74-99) mg/dL Plasma Lactic Acid Edd 1.1 (0.7-2.0) mmol/L Calcium (8.4-10.2) mg/dL Magnesium (1.6-2.3) mg/dL Total Bilirubin (0.2-1.3) mg/dL AST (17-59) U/L ALT (21-72) U/L Alkaline Phosphatase (38-126) U/L Total Creatine Kinase (55-170) U/L CK-MB (CK-2) (0.0-2.4) ng/mL CK-MB (CK-2) Rel Index Troponin I (0.000-0.034) ng/mL NT-Pro-B Natriuret Pep 26 pg/mL Total Protein (6.3-8.2) g/dL Albumin (3.5-5.0) g/dL Lipase (23-300) U/L - Radiology Data Radiology results: report reviewed (chest x-ray and CTA chest are negative for acute disease), image reviewed Critical Care Time Critical Care Time: Yes Total Critical Care Time: 31 Disposition Clinical Impression: Chest pain, Unstable angina pectoris Disposition: ADMITTED IP TO THIS [facility] Condition: Undetermined Referrals: Trav Muniz MD [Primary Care Provider] - 1-2 days
[2017-05-22 17:30] LABS: Basophils # (A) 0.1 k/uL (0-0.2); Basophils % (A) 1 %; CH 29.1; CHCM 33.7; Eosinophils # (A) 0.2 k/uL (0-0.7); Eosinophils % (A) 2 %; HCT 43.5 % (39.0-53.0); HDW 2.67; HGB 14.2 gm/dL (13.0-17.5); Luc # (Auto) 0.21; Luc % (Auto) 3; Lymphocytes # (A) 1.6 k/uL (1.0-4.8); Lymphocytes % (A) 22 %; MCH 28.3 pg (25.0-35.0); MCHC 32.7 g/dL (31.0-37.0); MCV 86.8 fL (80.0-100.0); Mean Platelet Volume 6.4; Monocytes # (A) 0.5 k/uL (0-1.0); Monocytes % (A) 7 %; Neutrophils # (A) 4.7 k/uL (1.3-7.7); Neutrophils % (A) 65 %; RBC 5.02 m/uL (4.30-5.90); RDW 13.7 % (11.5-15.5); WBC 7.2 k/uL (3.8-10.6); WBC (Perox) 6.94
[2017-05-22] MEDS ORDERED: HYDROmorphone 1 MG/ML 1 ML SYRINGE IVP STA ×2 (17:30→18:46)
[2017-05-22 17:40] LABS: ALT 55 U/L (21-72); AST 34 U/L (17-59); Alkaline Phosphatase 83 U/L (38-126); Anion Gap 13 mmol/L; Blood Urea Nitrogen 14 mg/dL (9-20); Calcium 10.3 mg/dL (8.4-10.2); Carbon Dioxide 24 mmol/L (22-30); Chloride 105 mmol/L (98-107); Glucose 110 mg/dL (74-99); Magnesium 2.1 mg/dL (1.6-2.3); Non-African American GFR(MDRD) >60 (>60 ml/min/1.73 sqM); Potassium 4.3 mmol/L (3.5-5.1); Sodium 142 mmol/L (137-145); Total Bilirubin 0.6 mg/dL (0.2-1.3)
[2017-05-22 17:42] LABS: Partial Thromboplastin Time 24.1 sec (22.0-30.0); Prothrombin Time 10.1 sec (9.0-12.0)
[2017-05-22 17:58] LABS: Creatine Kinase 263 U/L (55-170)
--- NOTE | 2017-05-22 18:00 | XR ---
EXAMINATION TYPE: XR chest 2V DATE OF EXAM: 05/22/2017 COMPARISON: EXAMINATION TYPE: XR chest 2V DATE OF EXAM: 05/22/2017 COMPARISON: 02/03/2017 HISTORY: Chest pain TECHNIQUE: 2 views FINDINGS: There is no heart failure nor confluent pneumonic infiltrate. There is symmetric pleural th ickening on the lateral chest wall probably related to lipomatosis. There are no hilar masses. There is no pleural effusion. Bony thorax is intact. IMPRESSION: No active cardiopulmonary disease. No change.
[2017-05-22] MEDS ORDERED: RX INFO: IV CONTRAST WAS GIVEN 1 EACH MISC MISCELLANE PRN (18:04)
[2017-05-22 18:08] LABS: Troponin I <0.012 ng/mL (0.000-0.034)
[2017-05-22] MEDS ORDERED: ONDANSETRON 4 MG/2 ML VIAL IVP STA (18:38)
--- NOTE | 2017-05-22 18:46 | CT ---
EXAMINATION TYPE: CT angio chest DATE OF EXAM: 05/22/2017 6:39 PM COMPARISON: NONE HISTORY: chest pain, SOB, hx of PE CT DLP: 847.4 mGycm Automated exposure control for dose reduction was used. CONTRAST: CTA scan of the thorax is performed with IV Contrast, patient injected with 65 mL of Omnipaque 350, p ulmonary embolism protocol. There are 3-D post processed images.. FINDINGS: The lungs are clear of consolidation. There is no pleural effusion. Heart size is normal. There is no pericardial effusion. Thoracic aorta appears normal. There is no sign of aneurysm or dissection. I see no filling defects i n the pulmonary arteries. There is no mediastinal adenopathy. There are no hilar masses. There are a few bronchial lymph nodes that measure less than 1 cm. The bony thorax is intact. IMPRESSION: NEGATIVE CT ANGIOGRAM OF THE CHEST. NO EVIDENCE OF PULMONARY EMBOLISM.
[2017-05-22] MEDS ORDERED: NITROGLYCERIN SL TABS 0.4 MG TAB SUBLINGUAL PRN (19:27)
[2017-05-22] MEDS ORDERED: HEPARIN SODIUM,PORCINE 5,000 UNIT/ML 1 ML VIAL IV ONE (19:27)
[2017-05-22] MEDS ORDERED: HEPARIN SODIUM,PORCINE 5,000 UNIT/ML 1 ML VIAL IV PRN (19:27)
[2017-05-22] MEDS ORDERED: ASPIRIN 81 MG PO STA (19:27)
[2017-05-22] MEDS ORDERED: HEPARIN SODIUM,PORCINE/D5W PMX 25,000 UNIT in DEXTROSE/WATER 1 500ML.BAG IV SCH (19:30)
[2017-05-22] MEDS: SODIUM CHLORIDE 0.9% 1,000 ML IV SCH (19:58)
[2017-05-22] MEDS: METOPROLOL TARTRATE 50 MG TAB PO SCH (21:01)
[2017-05-22] MEDS: HYDROmorphone 1 MG/ML 1 ML SYRINGE IVP PRN (23:04)
[2017-05-23] LABS: Creatine Kinase 221 U/L (55-170)
[2017-05-23 00:13] LABS: Creatine Kinase MB 0.8 ng/mL (0.0-2.4); Troponin I <0.012 ng/mL (0.000-0.034)
--- NOTE | 2017-05-23 00:13 | P.HPIM ---
History of Present Illness H&P Date: 05/22/17 Chief Complaint: Chest pain The patient is a 51-year-old morbidly obese male with a history of coronary artery disease with history of HI in 2011 reportedly requiring angioplasty at [facility], today he presents with chief complaint of left anterior chest pain. The patient reports he was in his previous normal state of health up until 2 days ago where he began feeling more fatigued week and tired. Earlier today the patient went for a walk with his dog and began feeling short of air and subsequently started having left-sided chest pressure described as squeezing with radiation into his neck associated diaphoresis shortness of air and nausea lightheadedness and presyncope, the patient subsequently went to lay down and took a nap for a couple hours on waking he still had some chest discomfort and subsequently presented here to the ER. The patient last presented here for cardiac workup possibly a year ago where he had left anterior chest wall pain at that time he had a normal stress test and stress echocardiogram. Today in the ER his EKG is negative for any acute ischemia and his troponins are negative Review of Systems Constitutional: Patient reports no fever, no chills, no weight changes, no change in appetite Eyes: Patient reports no double vision, no visual changes ENT: Patient reports no rhinorrhea, no post nasal drip, no sore throat Cardiovascular: Per HPI, no edema, no palpitations, no orthopnea, no paroxysmal nocturnal dyspnea. Respiratory: Patient reports no dyspnea, no cough, no wheeze Gastrointestinal: Patient reports no nausea, no vomiting, no constipation, no diarrhea Genitourinary: Patient reports no dysuria, no urinary frequency, no hematuria. Musculoskeletal: Chronic lumbar pain history of lumbar surgery, no joint swelling or weakness. Patient reports no muscular pain. Psychiatric: Patient reports no changes in mood, no sleeping problems. Patient reports no changes in memory. Endocrine: Patient reports no thirst, no polyuria, no cold intolerance, no heat intolerance. Neurological: Patient reports no unusual paresthesias, no seizures, no paresis , no paralysis, no facila droop, no headache. Heme/Lymphatic: Patient reports no easy bruising, no bleeding tendency, no lymphadenopathy. Allergic/ Immunologic: Patient reports no recent allergic reactions or immunologic history. Skin: Patient reports no rashes or unusual lesions. Past Medical History Past Medical History: GERD/Reflux, Hyperlipidemia, Hypertension, Myocardial Infarction (HI), Mitral Valve Prolapse (MVP), Pulmonary Embolus (PE), Renal Disease, Sleep Apnea/CPAP/BIPAP Additional Past Medical History / Comment(s): Hx kidney stones, UTI with urosepsis, renal cysts, chronic neck and back pain, "herniated, bulging discs, lumbar spine nerve damage" pain sometimes radiates down bilateral legs, R lower leg fx as 13 yr old, concussion. Uses CPAP machine., PT STATES RESCHEDULED ESOPHAGEAL FUNCTION AND MANOMETRY TESTING DUE TO BRONCHITIS WHICH HAS RESOLVED. Last Myocardial Infarction Date:: 2011 History of Any Multi-Drug Resistant Organisms: C-DIFF, MRSA Date of last positivie culture/infection: 2015 MDRO Source:: left axilla Past Surgical History: Appendectomy, Back Surgery, Cholecystectomy, Heart Catheterization, Hernia Repair Additional Past Surgical History / Comment(s): 2007 back surgery with decompression fusion at [facility], 2011 cardiac cath, multiple ESWL/ ureteral stents/ double J catheters, L inquinal hernia repair, PICC line for ABX for urosepsis-since removed. Past Anesthesia/Blood Transfusion Reactions: No Reported Reaction Smoking Status: Never smoker - Past Family History Mother Family Medical History: Chest Pain / Angina, Congestive Heart Failure (CHF), Osteoarthritis (OA), Thyroid Disorder Medications and Allergies Home Medications Medication Instructions Recorded Confirmed Type Diltiazem Cd [Cardizem CD] 240 mg PO DAILY 01/19/14 05/22/17 History Omeprazole 20 mg PO BID 10/04/14 05/22/17 History HYDROcodone/APAP 7.5-325MG [[place] 1 tab PO QID PRN 06/13/16 05/22/17 History 7.5-325] Atorvastatin [Lipitor] 40 mg PO DAILY 02/03/17 05/22/17 History Lisinopril [Prinivil] 20 mg PO DAILY 03/28/17 05/22/17 History Chlorthalidone 25 mg PO DAILY 05/22/17 05/22/17 History Methocarbamol [Robaxin] 750 mg PO TID 05/22/17 05/22/17 History Tamsulosin HCl [Flomax] 0.4 mg PO DAILY 05/22/17 05/22/17 History Allergies Allergy/AdvReac Type Severity Reaction Status Date / Time ketorolac tromethamine Allergy Itching Verified 05/22/17 20:47 [From Toradol] morphine Allergy Rash/Hives Verified 05/22/17 20:47 metoclopramide HCl AdvReac Unknown Verified 05/22/17 20:47 [From Reglan] prochlorperazine edisylate AdvReac Unknown Verified 05/22/17 20:47 [From Compazine] prochlorperazine maleate AdvReac Unknown Verified 05/22/17 20:47 [From Compazine] Physical Exam Vitals: Vital Signs Temp Pulse Pulse Resp BP BP Pulse Ox 05/22/17 23:31 20 05/22/17 20:49 20 05/22/17 20:23 97.8 F 92 20 141/87 99 05/22/17 19:59 88 18 153/80 98 05/22/17 19:07 99.0 F 90 18 161/87 96 05/22/17 18:46 96 22 160/87 99 05/22/17 18:00 89 22 144/84 97 05/22/17 17:40 94 22 153/86 97 05/22/17 17:21 118 H 22 173/108 99 05/22/17 16:53 115 H 24 178/104 99 05/22/17 16:15 100.3 F H 18 L 126 H 213/107 987 H Intake and Output 05/22/17 05/22/17 05/23/17 14:59 22:59 06:59 Other: Voiding Method Toilet Toilet Weight 134.1 kg Patient Weight 05/23/17 06:59 Weight 134.1 kg Constitutional: No acute distress, conversant, pleasant Eyes: Anicteric sclerae, moist conjunctiva, no lid-lag, PERRLA ENMT: NC/AT,Oropharynx clear, no erythema, exudates Neck:Supple, FROM, no masses, or JVD, No carotid bruits; No thyromegaly Lungs: Clear to auscultation, Clear to percussion, Normal respiratory effort, no accessory muscle use Cardiovascular: Heart regular in rate and rhythm, No murmurs, gallops, or rubs no peripheral edema Abdominal: Soft Nontender, nom distended, no guarding, no rebound or rigidity, Normoactive bowel sounds No hepatomegaly, No splenomegaly, No palpable mass No abdominal wall hernia noted Skin: Normal temperature, tone, texture, turgor, No induration No subcutaneous nodules, No rash, lesions, No ulcers Extremities:No digital cyanosis No clubbing, Pedal pulses intact and symmetrical Radial pulses intact and symmetrical Normal gait and station, No calf tenderness Psychiatric: Alert and oriented to person, place and time, Appropriate affect Intact judgement Neuro: Muscles Strength 5/5 in all 4 extremities, Sensation to light touch grossly present throughout, Cranial nerves II-XII grossly intact. No focal sensory deficits Results CBC & Chem 7: 05/22/17 17:10 05/22/17 17:10 Labs: Abnormal Lab Results - Last 24 Hours (Table) 05/22/17 05/22/17 05/22/17 Range/Units 17:10 17:10 17:10 D-Dimer 0.73 H (<0.60) mg/L FEU Glucose 110 H (74-99) mg/dL Calcium 10.3 H (8.4-10.2) mg/dL Total Creatine Kinase 263 H (55-170) U/L Thrombosis Risk Factor Assmnt - Choose All That Apply Any of the Below Risk Factors Present?: Yes Each Factor Represents 1 point: Age 41-60 years, Obesity (BMI >25), Swollen legs (current) Other Risk Factors: Yes Each Risk Factor Represents 3 Points: History of DVT/PE Thrombosis Risk Factor Assessment Total Risk Factor Score: 6 Thrombosis Risk Factor Assessment Level: High Risk Assessment and Plan (1) Chest pain Current Visit: Yes Status: Acute Code(s): R07.9 - CHEST PAIN, UNSPECIFIED SNOMED Code(s): 02037514 (2) Chronic neck pain Current Visit: No Status: Acute Code(s): M54.2 - CERVICALGIA SNOMED Code(s ): 0595691469245 (3) HTN (hypertension) Current Visit: Yes Status: Acute Code(s): I10 - ESSENTIAL (PRIMARY) HYPERTENSION SNOMED Code(s): 42216391 (4) Hyperlipidemia Current Visit: Yes Status: Acute Code(s): E78.5 - HYPERLIPIDEMIA, UNSPECIFIED SNOMED Code(s): 74407754 (5) Hx of coronary artery disease Current Visit: Yes Status: Acute Code(s): Z86.79 - PERSONAL HISTORY OF OTHER DISEASES OF THE CIRCULATORY SYSTEM SNOMED Code(s): 772976879 Plan: The patient is placed on observation anticipate a less than TWO midnight stay with chest pain his initial EKG and cardiac enzymes are negative for any acute ischemia we'll continue to trend his cardiac enzymes and will order a stress echocardiogram await further recommendations from cardiology. This elevated d- dimer subsequent CTA of the chest was ordered this was negative for pulmonary embolism. Continue routine chest pain order set. We'll resume his home medications and continue to monitor his clinical course
[2017-05-23 02:10] LABS: Mean Platelet Volume 7.3
[2017-05-23 02:25] LABS: Cholesterol 216 mg/dL (<200); HDL Cholesterol 32 mg/dL (40-60)
[2017-05-23] MEDS: HYDROmorphone 1 MG/ML 1 ML SYRINGE IVP PRN ×5 (02:48→21:38)
[2017-05-23] MEDS: HYDROcodone/APAP 7.5-325MG 1 EACH TAB PO PRN ×2 (05:28→14:58)
[2017-05-23 06:58] LABS: Creatine Kinase 190 U/L (55-170)
[2017-05-23 07:10] LABS: Creatine Kinase MB 1.1 ng/mL (0.0-2.4); Troponin I <0.012 ng/mL (0.000-0.034)
[2017-05-23] MEDS ORDERED: DOBUTamine DRIP for NUC MED 500 MG in DEXTROSE/WATER 1 250ML.BAG IV ONE (09:00)
[2017-05-23] MEDS ORDERED: ATORVASTATIN 40 MG TAB PO SCH (09:00)
[2017-05-23] MEDS ORDERED: ASPIRIN 325 MG TAB PO SCH (09:00)
[2017-05-23 09:24] LABS: Appearance,Urine Clear (Clear); Bilirubin,Urine Negative (Negative); Glucose,Urine (UA) Negative (Negative); Ketones,Urine Negative (Negative); Leukocyte Esterase,Urine Negative (Negative); Nitrite,Urine Negative (Negative); PH, Urine 5.5 (5.0-8.0); Protein,Urine Trace (Negative); Specific Gravity,Urine 1.039 (1.001-1.035); UA Billing (MACRO vs. MICRO) CHEM
[2017-05-23] MEDS ORDERED: REGADENOSON 0.4 MG/5 ML SYRINGE IV ONE ×2 (10:34→10:52)
[2017-05-23] MEDS ORDERED: AMINOPHYLLINE 500 MG/20 ML VIAL IV PRN ×2 (10:34→10:52)
--- NOTE | 2017-05-23 12:18 | P.CRDCN ---
History of Present Illness Consult date: 05/23/17 History of present illness: This is a 51-year-old male with past medical history significant for hyperlipidemia, hypertension, sleep apnea, PE, gastroesophageal reflux disease and obesity. He states he has underwent cardiac catheterization twice in his life. Once at [facility] and once he states was here, those records cannot be located. He states when he had cath at [facility] they told him he had disease and they performed balloon angioplasty but no stenting. He has followed with Dr. CECELIA Buckley once in the past. We have been asked to see him in consultation for complaints of chest pressure described as crushing chest pain while he was walking his dog yesterday. This was associated with shortness of breath, diaphoresis, nausea, dizziness and radiation of the pain down his left arm and into the left neck. The pain persisted until he went in and sat down. It has returned multiple times since admission and is still mildly present during my exam. Described as soreness. Not reproducible and not associated with cough or deep inspiration. He also states that on Monday he felt fatigued and weak prior to having this episode of chest pain. EKG sinus mechanism with non-specific T-wave abnormality. Chest xray negative for acute cardiopulmonary process. CTA negative for PE. Cardiac enzymes negative x3. LDL 216, triglycerides 496, HDL 32. D-dimer 0.73. On admission he was febril 100.3, tachycardic and hypertensive 213/107 with heart rate 115. Repeat this morning 126/76 and 78 bpm. He received labetolol and dilaudid in ER for pain and hypertension. Current cardiac home medications include lisinopril 20 mg daily, cardizem 240 mg daily, chlorthalidone 25 mg daily and atorvastatin 40 mg daily. Metoprolol and aspirin were added per ER physician. Review of Systems CONSTITUTIONAL: Denies fever. Denies chills. EYES: Denies blurred vision. Denies vision changes. Denies eye pain. EARS, NOSE, MOUTH & THROAT: Denies headache. Denies sore throat. Denies ear pain. CARDIOVASCULAR: Complains of ongoing, intermittent chest pain with associated shortness of breath. Denies orthopnea. Denies PND. Denies palpitations. RESPIRATORY: Denies cough. GASTROINTESTINAL: Denies abdominal pain. Denies diarrhea. Denies constipation. Complains of one episode of nausea. Denies vomiting. MUSCULOSKELETAL: Denies myalgias. INTEGUMENTARY: Denies pruitis. Denies rash. NEUROLOGIC: Denies numbness. Denies tingling. Denies weakness. PSYCHIATRIC: Denies anxiety. Denies depression. ENDOCRINE: Denies fatigue. Denies weight change. Denies polydipsia. Denies polyurina. GENITOURINARY: Denies burning, hematuria or urgency with micturation. HEMATOLOGIC: Denies history of anemia. Denies bleeding. Past Medical History Past Medical History: GERD/Reflux, Hyperlipidemia, Hypertension, Myocardial Infarction (NE), Mitral Valve Prolapse (MVP), Pulmonary Embolus (PE), Renal Disease, Sleep Apnea/CPAP/BIPAP Additional Past Medical History / Comment(s): Hx kidney stones, UTI with urosepsis, renal cysts, chronic neck and back pain, "herniated, bulging discs, lumbar spine nerve damage" pain sometimes radiates down bilateral legs, R lower leg fx as 13 yr old, concussion. Uses CPAP machine., PT STATES RESCHEDULED ESOPHAGEAL FUNCTION AND MANOMETRY TESTING DUE TO BRONCHITIS WHICH HAS RESOLVED. Last Myocardial Infarction Date:: 2011 History of Any Multi-Drug Resistant Organisms: C-DIFF, MRSA Date of last positivie culture/infection: 2015 MDRO Source:: left axilla Past Surgical History: Appendectomy, Back Surgery, Cholecystectomy, Heart Catheterization, Hernia Repair Additional Past Surgical History / Comment(s): 2007 back surgery with decompression fusion at [facility], 2011 cardiac cath, multiple ESWL/ ureteral stents/ double J catheters, L inquinal hernia repair, PICC line for ABX for urosepsis-since removed. Past Anesthesia/Blood Transfusion Reactions: No Reported Reaction Smoking Status: Never smoker - Past Family History Mother Family Medical History: Chest Pain / Angina, Congestive Heart Failure (CHF), Osteoarthritis (OA), Thyroid Disorder Medications and Allergies Home Medications Medication Instructions Recorded Confirmed Type Diltiazem Cd [Cardizem CD] 240 mg PO DAILY 01/19/14 05/22/17 History Omeprazole 20 mg PO BID 10/04/14 05/22/17 History HYDROcodone/APAP 7.5-325MG [[place] 1 tab PO QID PRN 06/13/16 05/22/17 History 7.5-325] Lisinopril [Prinivil] 20 mg PO DAILY 03/28/17 05/22/17 History Chlorthalidone 25 mg PO DAILY 05/22/17 05/22/17 History Methocarbamol [Robaxin] 750 mg PO TID 05/22/17 05/22/17 History Tamsulosin HCl [Flomax] 0.4 mg PO DAILY 05/22/17 05/22/17 History Atorvastatin [Lipitor] 80 mg PO DAILY #30 tab 05/23/17 Rx Allergies Allergy/AdvReac Type Severity Reaction Status Date / Time ketorolac tromethamine Allergy Itching Verified 05/22/17 20:47 [From Toradol] morphine Allergy Rash/Hives Verified 05/22/17 20:47 metoclopramide HCl AdvReac Unknown Verified 05/22/17 20:47 [From Reglan] prochlorperazine edisylate AdvReac Unknown Verified 05/22/17 20:47 [From Compazine] prochlorperazine maleate AdvReac Unknown Verified 05/22/17 20:47 [From Compazine] Physical Exam Vitals: Vital Signs Temp Pulse Pulse Resp BP BP Pulse Ox 05/23/17 07:26 98 F 78 18 126/76 99 05/23/17 04:00 97.9 F 70 20 133/82 05/23/17 03:27 20 05/22/17 23:51 98.1 F 95 20 137/83 95 05/22/17 23:31 20 05/22/17 20:49 20 05/22/17 20:23 97.8 F 92 20 141/87 99 05/22/17 19:59 88 18 153/80 98 05/22/17 19:07 99.0 F 90 18 161/87 96 05/22/17 18:46 96 22 160/87 99 05/22/17 18:00 89 22 144/84 97 05/22/17 17:40 94 22 153/86 97 05/22/17 17:21 118 H 22 173/108 99 05/22/17 16:53 115 H 24 178/104 99 05/22/17 16:15 100.3 F H 18 L 126 H 213/107 987 H Intake and Output 05/22/17 05/23/17 05/23/17 22:59 06:59 14:59 Intake Total 713.6 236 Balance 713.6 236 Intake: IV 280 Sodium Chloride 0.9% 1, 280 000 ml @ 100 mls/hr IV . Q10H [facility] Rx#:[id number] Intake, IV Titration 133.6 Amount Heparin Sodium,Porcine/ 133.6 D5w Pmx 25,000 unit In Dextrose/Water 1 500ml. bag @ 7.6 UNITS/KG/HR 19. 99 mls/hr IV .Q24H [facility] Rx #:[id number] Oral 300 236 Other: Voiding Method Toilet Toilet Toilet # Voids 2 Weight 134.1 kg GENERAL: This is a 51-year-old male in no apparent distress at the time of my examination. Morbidly obese. HEENT: Head is atraumatic, normocephalic. Pupils are equal, round. Sclerae anicteric. Conjunctivae are clear. Mucous membranes of the mouth are moist. Neck is supple. There is no jugular venous distention. No carotid bruit is heard. LUNGS: Clear to auscultation no wheezes, rales or rhonchi. No chest wall tenderness is noted on palpation or with deep breathing. HEART: Regular rate and rhythm without murmurs, rubs or gallops. S1 and S2 heard. ABDOMEN: Soft, nontender. Bowel sounds are heard. No organomegaly noted. EXTREMITIES: 2+ peripheral pulses with no evidence of peripheral edema and no calf tenderness noted. NEUROLOGIC: Patient is awake, alert and oriented x3. Results 05/23/17 01:55 05/22/17 17:10 Cardiac Enzymes 05/22/17 05/22/17 05/22/17 Range/Units 17:10 17:10 23:15 AST 34 (17-59) U/L CK-MB (CK-2) 1.0 0.8 (0.0-2.4) ng/mL Troponin I <0.012 <0.012 (0.000-0.034) ng/mL 05/23/17 Range/Units 05:29 AST (17-59) U/L CK-MB (CK-2) 1.1 (0.0-2.4) ng/mL Troponin I <0.012 (0.000-0.034) ng/mL Coagulation 05/22/17 05/23/17 Range/Units 17:10 01:38 PT 10.1 (9.0-12.0) sec APTT 24.1 23.5 (22.0-30.0) sec Lipids 05/23/17 Range/Units 01:55 Triglycerides 496 H (<150) mg/dL Cholesterol 216 H (<200) mg/dL HDL Cholesterol 32 L (40-60) mg/dL CBC 05/22/17 05/23/17 Range/Units 17:10 01:55 WBC 7.2 (3.8-10.6) k/uL RBC 5.02 (4.30-5.90) m/uL Hgb 14.2 (13.0-17.5) gm/dL Hct 43.5 (39.0-53.0) % Plt Count 305 264 (150-450) k/uL Comprehensive Metabolic Panel 05/22/17 Range/Units 17:10 Sodium 142 (137-145) mmol/L Potassium 4.3 (3.5-5.1) mmol/L Chloride 105 (98-107) mmol/L Carbon Dioxide 24 (22-30) mmol/L BUN 14 (9-20) mg/dL Creatinine 0.90 (0.66-1.25) mg/dL Glucose 110 H (74-99) mg/dL Calcium 10.3 H (8.4-10.2) mg/dL AST 34 (17-59) U/L ALT 55 (21-72) U/L Alkaline Phosphatase 83 (38-126) U/L Total Protein 8.0 (6.3-8.2) g/dL Albumin 4.8 (3.5-5.0) g/dL Current Medications Generic Name Dose Route Start Last Admin Trade Name Freq PRN Reason Stop Dose Admin Hydrocodone Bitart/Acetaminophen 1 each 05/22/17 23:21 05/23/17 05:28 [place] 7.5-325 PO 1 each QID PRN Administration pain scale 1-5 Aspirin 325 mg 05/23/17 09:00 Aspirin PO DAILY [facility] Atorvastatin Calcium 40 mg 05/23/17 09:00 Lipitor PO DAILY [facility] Chlorthalidone 25 mg 05/23/17 09:00 [place] PO DAILY [facility] Diltiazem HCl 240 mg 05/23/17 09:00 Cardizem Cd PO DAILY [facility] Heparin Sodium (Porcine) 0 unit 05/22/17 19:27 05/23/17 02:40 Heparin IV 4,000 unit Q6HR PRN Administration Low PTT Protocol Hydromorphone HCl 1 mg 05/22/17 19:29 05/23/17 07:22 Dilaudid IVP 1 mg Q4HR PRN Administration pain scale 6-10 Heparin Sodium/Dextrose 25,000 500 mls @ 19.99 mls/hr 05/22/17 19:30 02:35 unit/ IV Solution IV 10.6 units/kg/hr .Q24H JOEY 27.88 mls/hr Protocol Titration 7.6 UNITS/KG/HR Sodium Chloride 1,000 mls @ 100 mls/hr 05/22/17 19:30 05/22/17 19:58 Saline 0.9% IV 100 mls/hr .Q10H JOEY Administration Dobutamine HCl/Dextrose 500 mg 250 mls @ 40.23 mls/hr 05/23/17 09:00 / IV Solution IV 05/23/17 15:12 .Q6H13M ONE Protocol 10 MCG/KG/MIN Lisinopril 20 mg 05/23/17 09:00 Zestril PO DAILY [facility] Methocarbamol 750 mg 05/23/17 09:00 Robaxin PO TID [facility] Metoprolol Tartrate 50 mg 05/22/17 21:00 05/22/17 21:01 Lopressor PO 50 mg BID [facility]EY Administration Miscellaneous Information 1 each 05/22/17 18:04 05/22/17 18:52 Rx Info: Iv Contrast Was Given MISCELLANE 05/24/17 18:04 1 each DAILY PRN Administration Per Protocol Nitroglycerin 0.4 mg 05/22/17 19:27 Nitrostat SUBLINGUAL Q5M PRN Chest Pain Pantoprazole Sodium 40 mg 05/23/17 07:30 Protonix PO AC-BID JOEY Tamsulosin HCl 0.4 mg 05/23/17 09:00 Flomax PO DAILY [facility] Intake and Output 05/22/17 05/23/17 05/23/17 22:59 06:59 14:59 Intake Total 713.6 236 Balance 713.6 236 Intake: IV 280 Sodium Chloride 0.9% 1, 280 000 ml @ 100 mls/hr IV . Q10H [facility] Rx#:[id number] Intake, IV Titration 133.6 Amount Heparin Sodium,Porcine/ 133.6 D5w Pmx 25,000 unit In Dextrose/Water 1 500ml. bag @ 7.6 UNITS/KG/HR 19. 99 mls/hr IV .Q24H [facility] Rx #:[id number] Oral 300 236 Other: Voiding Method Toilet Toilet Toilet # Voids 2 Weight 134.1 kg 05/23/17 01:55 05/22/17 17:10 Assessment and Plan Assessment: ASSESSMENT 1. Chest pain, atypical. 2. Hypertension 3. Hyperlipidemia 4. Morbid obesity 5. History of CAD, records unavailable 6. Possible viral syndrome with fever and tachycardia present on admission PLAN Perform lexiscan stress test to rule out reversible cardiac ischemia. Increase atorvastatin to 80 mg daily for better cholesterol control. If stress test is normal, from cardiac perspective, he is stable for discharge home to follow up with Dr. Buckley in 2-3 weeks. Nurse Practitioner note has been reviewed, I agree with a documented findings and plan of care. Patient was seen and examined.
[2017-05-23] MEDS: DILTIAZEM CD 240 MG CAP.ER.24H PO SCH (13:21)
[2017-05-23] MEDS: LISINOPRIL 20 MG TAB PO SCH (13:21)
[2017-05-23] MEDS: TAMSULOSIN 0.4 MG CAP.ER.24H PO SCH (13:21)
[2017-05-23] MEDS: METHOCARBAMOL 750 MG TAB PO SCH ×3 (13:21→20:39)
[2017-05-23] MEDS: METOPROLOL TARTRATE 50 MG TAB PO SCH ×2 (13:21→20:39)
[2017-05-23] MEDS: CHLORTHALIDONE 25 MG TAB PO SCH (13:22)
[2017-05-23] MEDS: PANTOPRAZOLE 40 MG TABLET PO SCH ×2 (13:22→18:43)
--- NOTE | 2017-05-23 14:09 | NM ---
EXAMINATION TYPE: NM stress lexiscan cardiolite DATE OF EXAM: 05/23/2017 COMPARISON: NONE HISTORY: Chest pain TECHNIQUE: After the intravenous administration of 10.3 mCi Tc 99m Sestamibi - Cardiolite resting SP ECT images acquired 40 minutes post injection. The patient received 0.4mg Lexiscan, 29.3 mCi Tc 99m Sestamibi - Stress images obtained [address] injection FINDINGS: Review of stress and rest SPECT images demonstrates decreased uptake along the anterior and inferior devine on stress images as compared to rest images and also into the inferior apical region. Gated an alysis shows questionable paradoxical apical wall motion with an estimated left ventricular ejection fraction of 49 %. IMPRESSION: Pharmacologically induced left ventricular myocardial ischemia. Consider echocardiographic correlatio n for wall motion, ejection fraction
[2017-05-23] MEDS ORDERED: SODIUM CHLORIDE 0.9% 1,000 ML in EMPTY BAG 1 BAG IV ONE (14:32)
[2017-05-23] MEDS ORDERED: ALPRAZolam 0.5 MG TAB PO PRN (14:32)
[2017-05-23] MEDS ORDERED: ALPRAZolam 0.25 MG TAB PO PRN (14:32)
[2017-05-23] MEDS ORDERED: HEPARIN SODIUM,PORCINE 5,000 UNIT/ML 1 ML VIAL IV PRN (14:37)
--- NOTE | 2017-05-23 14:45 | P.PN ---
Progress Note - Text Progress Note Date: 05/23/17 Lexiscan stress test reveals pharmacologically induced left ventricular myocardial ischemia with decreased uptake along the anterior and inferior devine on stress images compared to rest images. These results have been discussed with Mr. Grossman's primary client service consultant Dr. CECELIA Buckley. Cardiac catheterization has been recommended. I have discussed the risks, benefits and alternative therapies for the above-mentioned procedure and for both sedation/ analgesia as well as necessary blood product administration, if indicated, as they pertain to this patient. The patient has indicated understanding and acceptance of the risks and procedures discussed. He has agreed to move forward with the procedure for tomorrow morning. Continue cardiac monitoring and restart heparin drip.
[2017-05-23] MEDS: HEPARIN SODIUM,PORCINE/D5W PMX 25,000 UNIT in DEXTROSE/WATER 1 500ML.BAG IV SCH (15:24)
--- NOTE | 2017-05-23 16:19 | P.PN ---
Subjective Progress Note Date: 05/23/17 Principal diagnosis: patient seen and examined in follow up for chest pain 51-year-old male with history of CAD status post stents back in 2011. Patient presented with the acute onset generalized fatigue. He was walking the dog when suddenly developed left-sided chest pain radiating to the neck associated with nausea and lightheadedness shortness of breath and diaphoresis he took a nap hoping for the pain to resolve however he woke up still having the pain decided to come the hospital. Patient was admitted under observation for further testing. Patient had a positive d-dimer upon presentation CT angiogram the chest was performed which was negative for pulmonary embolism. Patient had underwent Lexiscan stress test today, which showed decreased uptake along the anterior and inferior wall on stress images compared to resting images with clear evidence of pharmacologically-induced left ventricular myocardial ischemia. Cardiology recommended left heart catheterization in the morning. Patient currently continues to have chest pain retrosternal radiating to the left side of the neck and left arm. With some mild improvement with pain medications and nitro. Objective - Vital Signs Vital signs: Vital Signs Temp 98.9 F 05/23/17 15:38 Pulse 80 05/23/17 15:38 Resp 18 05/23/17 15:38 BP 138/78 05/23/17 15:38 Pulse Ox 97 05/23/17 15:38 Intake & Output 05/22/17 05/23/17 05/23/17 18:59 06:59 18:59 Intake Total 713.6 336 Balance 713.6 336 Weight 131.542 kg 134.1 kg Intake: IV 280 Sodium Chloride 0.9% 1, 280 000 ml @ 100 mls/hr IV . Q10H [facility] Rx#:[id number] Intake, IV Titration 133.6 Amount Heparin Sodium,Porcine/ 133.6 D5w Pmx 25,000 unit In Dextrose/Water 1 500ml. bag @ 7.6 UNITS/KG/HR 19. 99 mls/hr IV .Q24H [facility] Rx #:[id number] Oral 300 336 Other: Voiding Method Toilet Toilet # Voids 2 - Exam Constitutional: vital signs stable, patient seems to be in moderate pain, patient is not diaphoretic and able to talk short sentences interrupted by chest pain Lungs: Clear to auscultation bilaterally, clear to percussion Cardiovascular: Regular rate and rhythm, no murmurs, no gallops, no rubs, no peripheral edema Gastrointestinal: Soft, no tenderness to palpation, no palpable hepatosplenomegally, bowel sounds positive Extremities: No digital cyanosis or clubbing, peripheral pulses palpable and equal over bilateral radial arteries and dorsalis pedis artery, no calf muscle tenderness Psych: Alert, oriented to place, person and time - Labs CBC & Chem 7: 05/23/17 01:55 05/22/17 17:10 Labs: Abnormal Lab Results - Last 24 Hours (Table) 05/22/17 05/22/17 05/22/17 Range/Units 17:10 17:10 17:10 D-Dimer 0.73 H (<0.60) mg/L FEU Glucose 110 H (74-99) mg/dL Calcium 10.3 H (8.4-10.2) mg/dL Total Creatine Kinase 263 H (55-170) U/L Triglycerides (<150) mg/dL Cholesterol (<200) mg/dL HDL Cholesterol (40-60) mg/dL Ur Specific [place] (1.001-1.035) Urine Protein (Negative) 05/22/17 05/23/17 05/23/17 Range/Units 23:15 01:55 05:29 D-Dimer (<0.60) mg/L FEU Glucose (74-99) mg/dL Calcium (8.4-10.2) mg/dL Total Creatine Kinase 221 H 190 H (55-170) U/L Triglycerides 496 H (<150) mg/dL Cholesterol 216 H (<200) mg/dL HDL Cholesterol 32 L (40-60) mg/dL Ur Specific [place] (1.001-1.035) Urine Protein (Negative) 05/23/17 Range/Units 08:56 D-Dimer (<0.60) mg/L FEU Glucose (74-99) mg/dL Calcium (8.4-10.2) mg/dL Total Creatine Kinase (55-170) U/L Triglycerides (<150) mg/dL Cholesterol (<200) mg/dL HDL Cholesterol (40-60) mg/dL Ur Specific [place] 1.039 H (1.001-1.035) Urine Protein Trace H (Negative) Assessment and Plan Assessment: 51-year-old male with history of CAD status post stents back in 2011. Presented with acute onset chest pain not resolved with rest, admitted for further workup. D-dimer was positive in the ED CT image of the chest was negative for PE. Patient had underwent Lexiscan stress test today, which showed decreased uptake along the anterior and inferior wall on stress images compared to resting images with clear evidence of pharmacologically-induced left ventricular myocardial ischemia. Cardiology recommended left heart catheterization in the morning. (1) Unstable angina pectoris Narrative/Plan: Positive evidence of pharmacologically induced ischemia with Lexiscan Cardiology recommending left heart cath in the morning Continue with beta ousmane, ELIZABETH inhibitor, aspirin, statin, heparin drip Continue monitoring vital signs closely Morphine/Dilaudid when necessary for pain Oxygen when necessary to keep oxygen saturation above 92% Nitro when necessary Current Visit: Yes Status: Acute Code(s): I20.0 - UNSTABLE ANGINA SNOMED Code(s): 7730991 (2) HTN (hypertension) Current Visit: Yes Status: Acute Code(s): I10 - ESSENTIAL (PRIMARY) HYPERTENSION SNOMED Code(s): 36947576 (3) Hx of coronary artery disease Narrative/Plan: Continue aspirin, statin, beta ousmane, ELIZABETH inhibitor Current Visit: Yes Status: Acute Code(s): Z86.79 - PERSONAL HISTORY OF OTHER DISEASES OF THE CIRCULATORY SYSTEM SNOMED Code(s): 684233516 (4) Hyperlipidemia Narrative/Plan: Continue statin Current Visit: Yes Status: Acute Code(s): E78.5 - HYPERLIPIDEMIA, UNSPECIFIED SNOMED Code(s): 67904276 (5) DVT prophylaxis Narrative/Plan: Currently on heparin drip due to unstable angina Current Visit: Yes Status: Acute Code(s): DAE0305 - SNOMED Code(s): 920886541 Plan: Patient's will be converted to full admission due to active chest pain and positive evidence of pharmacologically induced ischemia on stress test with plans for left heart cath in the morning
[2017-05-23] MEDS: SODIUM CHLORIDE 0.9% 1,000 ML IV SCH ×2 (18:45→18:46)
[2017-05-23] MEDS: ATORVASTATIN 80 MG TAB PO SCH (20:39)
[2017-05-24] MEDS ORDERED: HYDROmorphone 1 MG/ML 1 ML SYRINGE ONE (01:45)
[2017-05-24 04:01] LABS: Basophils # (A) 0.1 k/uL (0-0.2); Basophils % (A) 1 %; CH 28.8; CHCM 32.4; Eosinophils # (A) 0.4 k/uL (0-0.7); Eosinophils % (A) 6 %; HCT 37.5 % (39.0-53.0); HDW 2.67; HGB 12.2 gm/dL (13.0-17.5); Luc # (Auto) 0.16; Luc % (Auto) 3; Lymphocytes # (A) 1.7 k/uL (1.0-4.8); Lymphocytes % (A) 30 %; MCH 29.1 pg (25.0-35.0); MCHC 32.5 g/dL (31.0-37.0); MCV 89.5 fL (80.0-100.0); Mean Platelet Volume 6.8; Monocytes # (A) 0.4 k/uL (0-1.0); Monocytes % (A) 6 %; Neutrophils # (A) 3.1 k/uL (1.3-7.7); Neutrophils % (A) 53 %; RBC 4.19 m/uL (4.30-5.90); RDW 13.8 % (11.5-15.5); WBC 5.7 k/uL (3.8-10.6); WBC (Perox) 6.05
[2017-05-24 04:04] LABS: Anion Gap 11 mmol/L; Blood Urea Nitrogen 21 mg/dL (9-20); Calcium 9.3 mg/dL (8.4-10.2); Carbon Dioxide 22 mmol/L (22-30); Chloride 103 mmol/L (98-107); Glucose 111 mg/dL (74-99); Non-African American GFR(MDRD) >60 (>60 ml/min/1.73 sqM); Potassium 4.2 mmol/L (3.5-5.1); Sodium 136 mmol/L (137-145)
[2017-05-24] MEDS: HYDROmorphone 1 MG/ML 1 ML SYRINGE IVP PRN ×4 (05:44→18:09)
[2017-05-24] MEDS: DILTIAZEM CD 240 MG CAP.ER.24H PO SCH (05:58)
[2017-05-24] MEDS: METHOCARBAMOL 750 MG TAB PO SCH ×3 (05:58→20:04)
[2017-05-24] MEDS: LISINOPRIL 20 MG TAB PO SCH (05:58)
[2017-05-24] MEDS: TAMSULOSIN 0.4 MG CAP.ER.24H PO SCH (05:58)
[2017-05-24] MEDS: METOPROLOL TARTRATE 50 MG TAB PO SCH ×2 (05:58→20:04)
[2017-05-24] MEDS: CHLORTHALIDONE 25 MG TAB PO SCH (05:58)
[2017-05-24] MEDS: PANTOPRAZOLE 40 MG TABLET PO SCH ×2 (05:59→15:22)
[2017-05-24] MEDS ORDERED: ASPIRIN 325 MG TAB PO ONE (06:00)
[2017-05-24] MEDS ORDERED: ATORVASTATIN 80 MG TAB PO SCH (09:00)
[2017-05-24] MEDS: HEPARIN SODIUM,PORCINE/D5W PMX 25,000 UNIT in DEXTROSE/WATER 1 500ML.BAG IV SCH (09:39)
[2017-05-24] MEDS: SODIUM CHLORIDE 0.9% 1,000 ML IV SCH ×2 (09:48→13:27)
--- NOTE | 2017-05-24 10:27 | ECHOF ---
Referral Reason:pain/shortness of breath/post procedure MEASUREMENTS -------- HEIGHT: 180.3 cm WEIGHT: 133.8 kg BP: 126/74 RVIDd: 3.4 cm (< 3.3) IVSd: 1.4 cm (0.6 - 1.1) LVIDd: 4.4 cm (3.9 - 5.3) LVPWd: 1.5 cm (0.6 - 1.1) IVSs: 1.6 cm LVIDs: 3.1 cm LVPWs: 1.9 cm LA Diam: 4.4 cm (2.7 - 3.8) LAESV Index (A-L): 28.40 ml/m Ao Diam: 3.1 cm (2.0 - 3.7) AV Cusp: 2.1 cm (1.5 - 2.6) MV EXCURSION: 12.495 mm (> 18.000) MV EF SLOPE: 109 mm/s (70 - 150) EPSS: 0.6 cm MV E Home: 1.05 m/s MV DecT: 199 ms MV A Home: 0.74 m/s MV E/A Ratio: 1.43 RAP: 15.00 mmHg RVSP: 30.86 mmHg FINDINGS -------- Sinus rhythm. This was a technically good study. The left ventricular size is normal. There is moderate concentric left ventricular hypertrophy. O verall left ventricular systolic function is normal with, an EF between 55 - 60 %. The right ventricle is mildly enlarged. Normal LA size by volume 22+/-6 ml/m2. The right atrium is normal in size. The aortic valve is trileaflet and appears structurally normal. There is trace to mild mitral regurgitation. Mild tricuspid regurgitation present. Right ventricular systolic pressure is normal at < 35 mmHg. The pulmonic valve was not well visualized. The aortic root size is normal. The inferior vena cava is dilated with poor inspiratory collapse which is consistent with estimated r ight atrial pressure of 20 mmHg. There is no pericardial effusion. CONCLUSIONS -------- 1. Sinus rhythm. 2. This was a technically good study. 3. The left ventricular size is normal. 4. There is moderate concentric left ventricular hypertrophy. 5. Overall left ventricular systolic function is normal with, an EF between 55 - 60 %. 6. The right ventricle is mildly enlarged. 7. Normal LA size by volume 22+/-6 ml/m2. 8. The right atrium is normal in size. 9. The aortic valve is trileaflet and appears structurally normal. 10. There is trace to mild mitral regurgitation. 11. Mild tricuspid regurgitation present. 12. Right ventricular systolic pressure is normal at < 35 mmHg. 13. The pulmonic valve was not well visualized. 14. The aortic root size is normal. 15. The inferior vena cava is dilated with poor inspiratory collapse which is consistent with estimat ed right atrial pressure of 20 mmHg. 16. There is no pericardial effusion. CASH REGISTER OPERATOR: Lyudmila Davidson RDCS
--- NOTE | 2017-05-24 10:40 | P.PN ---
Subjective Progress Note Date: 05/24/17 Principal diagnosis: patient seen and examined in follow up for unstable angina 51-year-old male with history of CAD status post stents back in 2011. Patient presented with the acute onset generalized fatigue. He was walking the dog when suddenly developed left-sided chest pain radiating to the neck associated with nausea and lightheadedness shortness of breath and diaphoresis he took a nap hoping for the pain to resolve however he woke up still having the pain decided to come the hospital. Patient was admitted under observation for further testing. Patient had a positive d-dimer upon presentation CT angiogram of the chest was performed which was negative for pulmonary embolism. Patient had underwent Lexiscan stress test today, which showed decreased uptake along the anterior and inferior wall on stress images compared to resting images with clear evidence of pharmacologically-induced left ventricular myocardial ischemia. Cardiology is evaluating old records and most recent left heart cath , to make a final decision wether to repeat one this admission or no. Patient Patient currently continues to have chest pain described as central heaviness and pressure. He feels frustrated about why things taking too long, I explained to him that cardiology team is yet to make a decision regarding left heart cath. otherwise he denies any trouble breathing, headache, nausea or vomiting. Objective - Vital Signs Vital signs: Vital Signs Temp 97.4 F L 05/24/17 07:33 Pulse 74 05/24/17 07:34 Resp 16 05/24/17 07:34 BP 126/74 05/24/17 07:33 Pulse Ox 95 05/24/17 07:33 Intake & Output 05/23/17 05/24/17 05/24/17 18:59 06:59 18:59 Intake Total 336 334.717 Balance 336 334.717 Intake: Intake, IV Titration 334.717 Amount Heparin Sodium,Porcine/ 334.717 D5w Pmx 25,000 unit In Dextrose/Water 1 500ml. bag @ 7.4 UNITS/KG/HR 19. 84 mls/hr IV .Q24H [facility] Rx #:[id number] Oral 336 Other: Voiding Method Toilet Toilet Urinal Urinal # Voids 1 - Exam Constitutional: vital signs stable, patient looks comfortable but does report some central chest heaviness, conversant Lungs: Clear to auscultation bilaterally, no wheezes or rales Cardiovascular: Regular rate and rhythm, no murmurs, no gallops, no rubs, no peripheral edema Gastrointestinal: Soft, no tenderness to palpation, no palpable hepatosplenomegally, bowel sounds positive Extremities: No digital cyanosis or ischemia, peripheral pulses palpable and equal over bilateral radial arteries and dorsalis pedis artery, no calf muscle tenderness Psych: Alert, oriented to place, person and time - Labs CBC & Chem 7: 05/24/17 02:00 05/24/17 02:00 Labs: Abnormal Lab Results - Last 24 Hours (Table) 05/24/17 05/24/17 Range/Units 02:00 02:00 RBC 4.19 L (4.30-5.90) m/uL Hgb 12.2 L (13.0-17.5) gm/dL Hct 37.5 L (39.0-53.0) % Sodium 136 L (137-145) mmol/L BUN 21 H (9-20) mg/dL Glucose 111 H (74-99) mg/dL Microbiology - Last 24 Hours (Table) 05/22/17 17:10 Blood Culture - Preliminary Blood No Growth after 24 hours Assessment and Plan Assessment: 51-year-old male with history of CAD status post stents back in 2011. Presented with acute onset chest pain not resolved with rest, admitted for further workup. D-dimer was positive in the ED CT image of the chest was negative for PE. Patient had underwent Lexiscan stress test today, which showed decreased uptake along the anterior and inferior wall on stress images compared to resting images with clear evidence of pharmacologically-induced left ventricular myocardial ischemia. Cardiology is evaluating old records and most recent left heart cath to make a decision regarding worthiness of repeating another left heart cath this admission (1) Unstable angina pectoris Narrative/Plan: Positive evidence of pharmacologically induced ischemia with Lexiscan Cardiology recommending possible left heart cath today Continue with beta ousmane, ELIZABETH inhibitor, aspirin, statin, heparin drip Continue monitoring vital signs closely Morphine/Dilaudid when necessary for pain Oxygen when necessary to keep oxygen saturation above 92% Nitro SL when necessary xanax low dose for anxiety PRN Current Visit: Yes Status: Acute Code(s): I20.0 - UNSTABLE ANGINA SNOMED Code(s): 8283682 (2) HTN (hypertension) Narrative/Plan: controlled Current Visit: Yes Status: Chronic Code(s): I10 - ESSENTIAL (PRIMARY) HYPERTENSION SNOMED Code(s): 14870506 (3) Hx of coronary artery disease Narrative/Plan: Continue aspirin, statin, beta ousmane, ELIZABETH inhibitor Current Visit: Yes Status: Acute Code(s): Z86.79 - PERSONAL HISTORY OF OTHER DISEASES OF THE CIRCULATORY SYSTEM SNOMED Code(s): 159687602 (4) Hyperlipidemia Narrative/Plan: Continue statin Current Visit: Yes Status: Acute Code(s): E78.5 - HYPERLIPIDEMIA, UNSPECIFIED SNOMED Code(s): 16749167 (5) DVT prophylaxis Narrative/Plan: Currently on heparin drip due to unstable angina Current Visit: Yes Status: Acute Code(s): PJW2484 - SNOMED Code(s): 449393540 Plan: vital signs stabel , labs reviewed and stable except for slight drop in hemoglobin most likely iatrogenic 2/2 frequent blood draws, patient denies any evidence of GI bleeding continue current treatment for unstable angina await cardiology decision regarding left heart cath Possible discharge in AM , to home
--- NOTE | 2017-05-24 11:57 | EST ---
EXERCISE STRESS AGE: 51 SEX: M HT: 72" WT: 295 PROTOCOL: Lexiscan Cardiolite Stress Test HEART RATE REST: 70 BLOOD PRESSURE REST: 230/94 MAXIMUM HEART RATE ACHIEVED: 81 MAXIMUM BLOOD PRESSURE: 200/90 85% MPHR: 145 100% MPHR 170 CLINICAL INFORMATION: Lexiscan nuclear study was performed. Peak heart rate of 81, was achieved, maximum blood pressure over 200/90 mmHg was noted. Resting EKG shows normal sinus rhythm with normal MA interval and QRS duration and normal ST-T waves. No ST-segment depression suggestive of ischemia was noted. The results of the nuclear study will follow. MMODL / IJN: [id number] /
[2017-05-24] MEDS ORDERED: LIDOCAINE 2% INJ 20 MG/ML (20 ML MDV) ONE (12:13)
[2017-05-24] MEDS ORDERED: IV FLUID CONTINUATION 1,000 ML IV ONE (12:35)
[2017-05-24] MEDS ORDERED: MIDAZOLAM 2 MG/2 ML VIAL ONE (12:37)
[2017-05-24] MEDS ORDERED: fentaNYL (PF) 50 MCG/ML 2 ML AMP ONE (12:38)
[2017-05-24] MEDS ORDERED: MIDAZOLAM 2 MG/2 ML VIAL IV ONE (12:41)
[2017-05-24] MEDS ORDERED: fentaNYL (PF) 50 MCG/ML 2 ML AMP IV ONE (12:41)
[2017-05-24] MEDS ORDERED: LIDOCAINE 2% INJ 20 MG/ML SQ ONE (12:44)
[2017-05-24] MEDS ORDERED: IOHEXOL 350 MG/ML 125ML BOTTLE INJ ONE (13:03)
[2017-05-24] MEDS ORDERED: RX INFO: IV CONTRAST WAS GIVEN 1 EACH MISC MISCELLANE PRN (13:30)
--- NOTE | 2017-05-24 15:18 | CC ---
CARDIAC CATHETERIZATION REPORT Mr. Morales is a 51-year-old gentleman who came to the hospital with symptoms suggestive of unstable angina syndrome. Patient's EKGs and cardiac enzymes are normal. Patient underwent cardiac stress test which showed evidence of anterior lateral perfusion defect. In view of that, the patient was recommended to have cardiac catheterization for definitive diagnosis. PROCEDURE: The right groin was prepped and draped in the usual manner and skin was infiltrated with 2% Xylocaine. The right femoral artery was entered using Seldinger technique. A #6-Frisian sheath was placed in. Selective coronary angiography was then performed in multiple projections and the left ventriculography was performed in 30 degree HENDERSON projection. Patient tolerated the procedure well. HEMODYNAMICS: Left ventricular end-diastolic pressure is 12 to 16 mmHg prior to angiography. No gradient is noted across the aortic valve. SELECTIVE CORONARY ANGIOGRAPHY: Left main coronary artery is normal and patent. LAD is a good caliber blood vessel and gives rise to good-sized diagonal branch. LAD and its branches are normal. Circumflex coronary artery gives rise to a good size obtuse marginal branch. Circumflex coronary artery and its branches are normal. Right coronary artery is dominant in distribution and it is normal. Left ventriculography reveals normal left ventricular systolic function. Ascending aorta is normal. FINAL IMPRESSION: This study reveals normal coronary arteries. Left ventricular systolic function is normal. RECOMMENDATIONS: Medical therapy and aggressive risk factor modification. MMODL / IJN: [id number] /
[2017-05-24] MEDS: HYDROcodone/APAP 7.5-325MG 1 EACH TAB PO PRN ×2 (15:21→23:07)
--- NOTE | 2017-05-24 15:27 | PN ---
PROGRESS NOTE This is a 51-year-old obese a gentleman who had a cardiac cath in June at [facility], which was unremarkable. He came in with chest pain yesterday. Pain was atypical. The nuclear scan revealed a question of anterior wall ischemia. However, there was also some artifact. I advised the patient that we will probably not do a cardiac cath since he received radiation already on the day he arrived in the form of CT angiography and again yesterday with a nuclear scan and I feel that the abnormality in the stress test is not very significant and it could be an artifact. I also explained to him that the cardiac cath in the last 11 months was normal. However, after this discussion, patient seemed comfortable, but he continued to have chest pressure and heaviness. I therefore came back and saw him and he was complaining of heaviness and pressure in the chest and seemed to be quite anxious with it. He insisted on having a cardiac catheterization and therefore I requested Dr. Monique Pope and also spoke to Dr. Arora who he sees regularly in the office. Dr. Pope will perform his cardiac cath. The patient is fully aware of the rationale, risks, benefits, and options. He wishes to proceed with the procedure. Vital signs are stable. S1, S2 heard normally, but distantly. Lungs are clear. Abdomen and lower chest exam is unchanged. MMODL / IJN: [id number] /
[2017-05-24] MEDS: ATORVASTATIN 80 MG TAB PO SCH (20:04)
[2017-05-25] MEDS: HYDROcodone/APAP 7.5-325MG 1 EACH TAB PO PRN (05:45)
[2017-05-25] MEDS: SODIUM CHLORIDE 0.9% 1,000 ML IV SCH ×2 (06:31→06:32)
[2017-05-25] MEDS: PANTOPRAZOLE 40 MG TABLET PO SCH (06:31)
[2017-05-25] MEDS: CHLORTHALIDONE 25 MG TAB PO SCH (08:42)
[2017-05-25] MEDS: DILTIAZEM CD 240 MG CAP.ER.24H PO SCH (08:42)
[2017-05-25] MEDS: TAMSULOSIN 0.4 MG CAP.ER.24H PO SCH ×2 (08:42→08:43)
[2017-05-25] MEDS: LISINOPRIL 20 MG TAB PO SCH (08:42)
[2017-05-25] MEDS: METOPROLOL TARTRATE 50 MG TAB PO SCH (08:43)
[2017-05-25] MEDS: METHOCARBAMOL 750 MG TAB PO SCH (08:43)
[2017-05-25 08:51] VITALS: BP 140/100; PULSE 76; RESP 16; TEMP 97.5
--- NOTE | 2017-05-25 10:12 | P.DS ---
Providers Date of admission: 05/23/17 14:59 Expected date of discharge: 05/25/17 Attending physician: Jose Conway MD Consults: 05/22/17 19:28 Consult Physician Urgent Consulting Provider: Obinna Naik Consult Reason/Comments: cp Do you want consulting provider notified?: Yes Primary care physician: Trav Muniz - Discharge Diagnosis(es) (1) Chest pain this is most likely related to non cardiac reasons at this point, patient had clean left heart cath recommendations to follow up with GI , get EGD and evaluated for GERD and esophageal spasms patient counseled regarding measures to decrease acid reflux continue with PPI consider following up with GI as OP Current Visit: Yes Status: Acute (2) Unstable angina pectoris left heart cath was clean Current Visit: Yes Status: Ruled-out (3) HTN (hypertension) controlled Current Visit: Yes Status: Chronic (4) Hx of coronary artery disease Current Visit: Yes Status: Acute (5) Hyperlipidemia Current Visit: Yes Status: Acute (6) DVT prophylaxis Current Visit: Yes Status: Acute Hospital Course: 51-year-old male with history of CAD. Patient presented with the acute onset generalized fatigue. He was walking the dog when suddenly developed left-sided chest pain radiating to the neck associated with nausea and lightheadedness shortness of breath and diaphoresis he took a nap hoping for the pain to resolve however he woke up still having the pain decided to come the hospital. Patient was admitted under observation for further testing. Patient had a positive d-dimer upon presentation CT angiogram of the chest was performed which was negative for pulmonary embolism. Patient had underwent Lexiscan stress test today, which showed decreased uptake along the anterior and inferior wall on stress images compared to resting images with clear evidence of pharmacologically-induced left ventricular myocardial ischemia. cardiology reviewed old records and seems like he does not have significant CAD based on most recent left heart cath, patient chose and insisted on repeating a left heart cath which was done on 05/24/2017 and result was negative, with normal left ventricular ejection fraction. Patient was counseled that the pain is most likely related to non cardiac causes, and recommended to him to follow up with GI , as he did have GERD and hiatal hernia, possibly this is resulting in his chest pain. Patient also reported to me that in the past GI specialist recommended some testing for esophageal spasm that he never got that done . patient seen and examined today, agress with above plan, denies any trouble breathing, GI bleeding, cough, fever, chills. He reports that his chest pain is minimal if any, and currently is chest pain free. Constitutional: vital signs stable, Not in acute distress, pleasant, conversant Lungs: Clear to auscultation bilaterally, clear to percussion, normal respiratory effort Cardiovascular: Regular rate and rhythm, no murmurs, no gallops, no rubs, no peripheral edema Gastrointestinal: Soft, no tenderness to palpation bowel sounds positive, no abdominal wall hernias Extremities: No digital cyanosis or ischemia, peripheral pulses palpable and equal over bilateral radial arteries and dorsalis pedis artery, no calf muscle tenderness, right groin cath access site unremarkable Psych: Alert, oriented to place, person and time patient will be discharged in stable condition to home follow up OP with GI and cardiology and PCP 35 minutes were spent discharging this patient, and more than 50% of the time was spent in counseling the patient and family and in coordinating care. Pertinent Studies: lexiscan stress test, showed changes suggestive of pharmacologically induced ischemic changes. Procedures: left heart cath , negative with normal left ventricular ejection fraction Patient Condition at Discharge: Stable Plan - Discharge Summary Discharge Rx Participant: No New Discharge Prescriptions: New Atorvastatin [Lipitor] 80 mg PO DAILY #30 tab Metoprolol Tartrate [Lopressor] 50 mg PO BID #60 tab Nitroglycerin Sl Tabs [Nitrostat] 0.4 mg SUBLINGUAL Q5M PRN tab PRN Reason: Chest Pain Continue Diltiazem Cd [Cardizem CD] 240 mg PO DAILY Omeprazole 20 mg PO BID HYDROcodone/APAP 7.5-325MG [[place] 7.5-325] 1 tab PO QID PRN PRN Reason: Pain Lisinopril [Prinivil] 20 mg PO DAILY Methocarbamol [Robaxin] 750 mg PO TID Chlorthalidone 25 mg PO DAILY Tamsulosin HCl [Flomax] 0.4 mg PO DAILY Discontinued Atorvastatin [Lipitor] 40 mg PO DAILY Discharge Medication List Diltiazem Cd [Cardizem CD] 240 mg PO DAILY 01/19/14 [History] Omeprazole 20 mg PO BID 10/04/14 [History] HYDROcodone/APAP 7.5-325MG [[place] 7.5-325] 1 tab PO QID PRN 06/13/16 [History] Lisinopril [Prinivil] 20 mg PO DAILY 03/28/17 [History] Chlorthalidone 25 mg PO DAILY 05/22/17 [History] Methocarbamol [Robaxin] 750 mg PO TID 05/22/17 [History] Tamsulosin HCl [Flomax] 0.4 mg PO DAILY 05/22/17 [History] Atorvastatin [Lipitor] 80 mg PO DAILY #30 tab 05/23/17 [Rx] Metoprolol Tartrate [Lopressor] 50 mg PO BID #60 tab 05/25/17 [Rx] Nitroglycerin Sl Tabs [Nitrostat] 0.4 mg SUBLINGUAL Q5M PRN tab 05/25/17 [Rx] Follow up Appointment(s)/Referral(s): Sunny Buckley MD [STAFF PHYSICIAN] - 2 Weeks Trav Muniz MD [Primary Care Provider] - 1-2 days Geronimo Russell MD [STAFF PHYSICIAN] - 1 Week Patient Instructions/Handouts: Diet for Stomach Ulcers and Gastritis (GEN), Gastroesophageal Reflux Disease (GEN), Esophageal Spasm (GEN) Activity/Diet/Wound Care/Special Instructions: diet as tolerated activity as tolerated Discharge Disposition: HOME SELF-CARE
--- NOTE | 2017-05-25 21:13 | CONS ---
CONSULTATION Mr. Jim Morales is doing well. His right groin is clean and dry. He had a cardiac cath performed by Dr. Monique Pope with no significant CAD. Vital signs stable. S1, S2 heard normally. LUNGS: Clear. ABDOMEN AND LOWER EXTREMITIES: Unchanged. PLAN: Discharge the patient and he will see nurse sophia Conteh in the office and then follow up with Dr. Arora on a regular basis. Discharge instructions regarding activity, diet and medications were given. I explained to the patient that there was no obstructive CAD and he was reassured. MMODL / IJN: [id number] /
== END 2017-05-25 10:44 | disposition home or self-care (01) | DRG 192 ==
LOC: EC 16:14 → 3OBS 19:29 → OBSVTOIN 05-23 14:59 → 6SEL 05-23 18:15
PROVIDERS: ADMIT Family Medicine; ATTEND Family Medicine
PROC: B2111ZZ Fluoroscopy of Multiple Coronary Arteries using Low Osmolar Contrast (ICD-10-PCS; 2017-05-24)
PROC: 4A023N7 Measurement of Cardiac Sampling and Pressure, Left Heart, Percutaneous Approach (ICD-10-PCS; principal; 2017-05-24 07:00)
DX: R07.89 Other chest pain (principal); E66.01 Morbid (severe) obesity due to excess calories; I10 Essential (primary) hypertension; K44.9 Diaphragmatic hernia without obstruction or gangrene; M54.2 Cervicalgia; E78.5 Hyperlipidemia, unspecified; G89.29 Other chronic pain; M51.36 Other intervertebral disc degeneration, lumbar region; G47.30 Sleep apnea, unspecified; K21.9 Gastro-esophageal reflux disease without esophagitis; I25.110 Atherosclerotic heart disease of native coronary artery with unstable angina pectoris; I34.1 Nonrheumatic mitral (valve) prolapse; Z88.6 Allergy status to analgesic agent; Z88.8 Allergy status to other drugs, medicaments and biological substances; Z79.899 Other long term (current) drug therapy; Z79.891 Long term (current) use of opiate analgesic; Z82.49 Family history of ischemic heart disease and other diseases of the circulatory system; Z82.61 Family history of arthritis; Z90.49 Acquired absence of other specified parts of digestive tract; Z87.19 Personal history of other diseases of the digestive system; I25.2 Old myocardial infarction; Z86.711 Personal history of pulmonary embolism; Z22.322 Carrier or suspected carrier of Methicillin resistant Staphylococcus aureus; Z86.19 Personal history of other infectious and parasitic diseases; Z87.442 Personal history of urinary calculi; Z95.5 Presence of coronary angioplasty implant and graft; Z87.440 Personal history of urinary (tract) infections
CPT/HCPCS: 36415; 71020; 71275; 78452; 80048; 80053; 80061; 81003; 82550; 82553; 83605; 83690; 83735; 83880; 84484; 85025; 85049; 85379; 85610; 85730; 87040; 93005; 93017; 93306; 93458; 96361; 96374; 96375; 96376; 99291

== ENCOUNTER 2017-07-12 20:46 | Emergency (ER) | payer OTHER ==
[2017-07-12] MEDS ORDERED: SODIUM CHLORIDE 0.9% 1,000 ML IV STA (22:33)
[2017-07-12] MEDS ORDERED: PANTOPRAZOLE 40 MG/10 ML VIAL IVP STA (22:33)
[2017-07-12] MEDS ORDERED: ONDANSETRON 4 MG/2 ML VIAL IVP STA (22:33)
--- NOTE | 2017-07-12 22:44 | ED ---
General Adult HPI - General Source: patient, RN notes reviewed, old records reviewed Mode of arrival: wheelchair Limitations: no limitations <Dwight Gonzales - Last Filed: 07/13/17 00:49> <Gatito Casas - Last Filed: 07/13/17 03:43> - General Chief complaint: Abdominal Pain Stated complaint: Abd Pain Time Seen by Provider: 07/12/17 21:56 - History of Present Illness Initial comments: Chief complaint and history of present illness is a 51-year-old male here with a complaint of epigastric pain. He reports she was showing snow and epigastric pain started he has dry heaves. He denies chest pain. No sweats. Feels nauseated almost vomits. Pain goes through to the back. (Dwight Gonzales) - Related Data Home Medications Medication Instructions Recorded Confirmed Diltiazem Cd [Cardizem CD] 240 mg PO DAILY 01/19/14 07/12/17 Lisinopril [Prinivil] 20 mg PO DAILY 03/28/17 07/12/17 Methocarbamol [Robaxin] 750 mg PO TID 05/22/17 07/12/17 Hydrochlorothiazide Unknown 1 tab PO DAILY 07/12/17 07/12/17 Lyrica Unknown 1 tab PO DIRECTED 07/12/17 07/12/17 Previous Rx's Medication Instructions Recorded Atorvastatin [Lipitor] 80 mg PO DAILY #30 tab 05/23/17 Allergies Allergy/AdvReac Type Severity Reaction Status Date / Time doxycycline Allergy Swelling Verified 07/12/17 21:48 ketorolac tromethamine Allergy Itching Verified 07/12/17 21:48 [From Toradol] morphine Allergy Rash/Hives Verified 07/12/17 21:48 metoclopramide HCl AdvReac Unknown Verified 07/12/17 21:48 [From Reglan] prochlorperazine edisylate AdvReac Unknown Verified 07/12/17 21:48 [From Compazine] prochlorperazine maleate AdvReac Unknown Verified 07/12/17 21:48 [From Compazine] Review of Systems ROS Other: All systems not noted in ROS Statement are negative. <Dwight Gonzales - Last Filed: 07/13/17 00:49> ROS Other: All systems not noted in ROS Statement are negative. <Gatito Casas - Last Filed: 07/13/17 03:43> ROS Statement: Those systems with pertinent positive or pertinent negative responses have been documented in the HPI. review of systems. No headache or visual acuity changes denies any shortness of breath. States the pain is epigastric increases with palpation of the epigastrium. States though it's a knife turning in his stomach area. Patient is having dry heaves. States the pain is being caused by his hiatal hernia. He states she's had this before. He states he's had heart issues in the past but this is different.all systems are reviewed Past medical problems; GERD, hyperlipidemia, hypertension, silent MA, MVP, PE, chronic renal disease, sleep apnea with CPAP and history of kidney stones. Surgeries appendectomy, back surgery, gallbladder, heart catheterization but no stent. Inguinal hernia repair. Back surgery. Patient, nonsmoker, nondrinker. (Dwight Gonzales) Past Medical History Past Medical History: GERD/Reflux, Hyperlipidemia, Hypertension, Myocardial Infarction (MA), Mitral Valve Prolapse (MVP), Pulmonary Embolus (PE), Renal Disease, Sleep Apnea/CPAP/BIPAP Additional Past Medical History / Comment(s): Hx kidney stones, UTI with urosepsis, renal cysts, chronic neck and back pain, "herniated, bulging discs, lumbar spine nerve damage" pain sometimes radiates down bilateral legs, R lower leg fx as 13 yr old, concussion. Uses CPAP machine., PT STATES RESCHEDULED ESOPHAGEAL FUNCTION AND MANOMETRY TESTING DUE TO BRONCHITIS WHICH HAS RESOLVED. Last Myocardial Infarction Date:: 2011 History of Any Multi-Drug Resistant Organisms: C-DIFF, MRSA Date of last positivie culture/infection: 2016 MDRO Source:: left axilla Past Surgical History: Appendectomy, Back Surgery, Cholecystectomy, Heart Catheterization, Hernia Repair Additional Past Surgical History / Comment(s): 2007 back surgery with decompression fusion at [facility], 2011 cardiac cath, multiple ESWL/ ureteral stents/ double J catheters, L inquinal hernia repair, PICC line for ABX for urosepsis-since removed. Past Anesthesia/Blood Transfusion Reactions: No Reported Reaction Past Psychological History: No Psychological Hx Reported Smoking Status: Never smoker Past Alcohol Use History: None Reported Past Drug Use History: None Reported - Past Family History Mother Family Medical History: Chest Pain / Angina, Congestive Heart Failure (CHF), Osteoarthritis (OA), Thyroid Disorder <Dwight Gonzales - Last Filed: 07/13/17 00:49> General Exam Limitations: no limitations <Dwight Gonzales - Last Filed: 07/13/17 00:49> General appearance: alert, in no apparent distress Head exam: Present: atraumatic, normocephalic, normal inspection Eye exam: Present: normal appearance, PERRL, EOMI. Absent: scleral icterus, conjunctival injection, periorbital swelling ENT exam: Present: normal exam, mucous membranes moist Neck exam: Present: normal inspection. Absent: tenderness, meningismus, lymphadenopathy Respiratory exam: Present: normal lung sounds bilaterally. Absent: respiratory distress, wheezes, rales, rhonchi, stridor Cardiovascular Exam: Present: regular rate, normal rhythm, normal heart sounds. Absent: systolic murmur, diastolic murmur, rubs, gallop, clicks GI/Abdominal exam: Present: soft, normal bowel sounds. Absent: distended, tenderness, guarding, rebound, rigid Extremities exam: Present: normal inspection, full ROM, normal capillary refill. Absent: tenderness, pedal edema, joint swelling, calf tenderness Back exam: Present: normal inspection Neurological exam: Present: alert, oriented X3, CN II-XII intact Psychiatric exam: Present: normal affect, normal mood Skin exam: Present: warm, dry, intact, normal color. Absent: rash <Gatito Casas - Last Filed: 07/13/17 03:43> - General Exam Comments Initial Comments: General: The patient is awake and alert, on her distress with dry heaves and epigastric pain that gets worse with pushing on his epigastrium. He states that the pain radiates to the back. Vital signs shows temperature 98.8 pulse 121 respiratory rate 20 pulse ox May percent room air blood pressure 165/100 Eye: Pupils are equal, round and reactive to light, extra-ocular movements are intact ; there is normal conjunctiva bilaterally. No signs of icterus. Ears, nose, mouth and throat: There are moist mucous membranes and no oral lesions. Neck: The neck is supple, there is no tenderness or JVD. Cardiovascular: tachycardic heart rate, 116.. No murmur, rub or gallop is appreciated. Respiratory: Lungs are clear to auscultation, respirations are non-labored, breath sounds are equal. No wheezes, stridor, rales, or rhonchi. Gastrointestinal: pain with palpation to the epigastric region. No organomegaly. Active bowel sounds. Dry heaves. Pain radiates to the back Back: There is no tenderness to palpation in the midline. There is no obvious deformity. No rashes noted. Musculoskeletal: Normal ROM, no tenderness, There is no pedal edema. There is no calf tenderness or swelling. Sensation intact. Neurological: no neuro deficits Skin: Skin is warm and dry and no rashes or lesions are noted. Psychiatric: Cooperative, appropriate mood & affect, normal judgment. (Dwight Gonzales) Course <Dwight Gonzales - Last Filed: 07/13/17 00:49> <Gatito Casas - Last Filed: 07/13/17 03:43> Vital Signs 07/12/17 07/13/17 07/13/17 20:58 00:27 03:13 Temperature 98.8 F Pulse Rate 121 H 106 H 97 Respiratory 20 24 16 Rate Blood Pressure 165/100 166/104 140/75 O2 Sat by Pulse 98 98 95 Oximetry - Reevaluation(s) Reevaluation #1: 07/13/17 03:41 Spoke with patient after CT exam, patient states is feeling much better as far as his symptoms, he would like to follow-up with his surgeon for his hernia instructed states his pain is just like his prior hiatal hernia pain (Gatito Casas) Reevaluation #2: 07/13/17 03:42 Prior heart catheterization is reviewed, normal coronary arteries (Gatito Casas) Medical Decision Making - Lab Data Result diagrams: 07/12/17 23:50 07/12/17 23:50 <Dwight Gonzales - Last Filed: 07/13/17 00:49> - Lab Data Result diagrams: 07/12/17 23:50 07/12/17 23:50 - Radiology Data Radiology results: report reviewed (Chest x-ray is negative for acute disease, CT abdomen and pelvis is negative), image reviewed <Gatito Casas - Last Filed: 07/13/17 03:43> - Medical Decision Making medical decision making; patient's come the emergency room because of epigastric pain that started while shoveling snow. Patient states is different than his chest pain and he states feels it's more like the pain in the epigastric region from hiatal hernia. The patient has been seeing physicians in this is been scheduled to get repaired. The pain goes through to the back.The patient's labs show white count of 10.4 hemoglobin 14 hematocrit of 42, INR 1.0, potassium 4.1. BUN 13 creatinine 0.8 GFR greater than 60. Glucose 1:30. Amylase lipase normal limits. CK 300 and troponin less than 0.012. X-ray of the chest was done and reviewed by radiologist his final impression is ; mild scarring at the left lung base without change compared to old exam. No active cardiopulmonary disease. Normal heart. As read by Dr. Cortes X-ray of the abdomen was done and reviewed by radiologist his findings are there is no sign of intestinal obstruction or pneumoperitoneum. Fecal pattern is normal. There is contrast in the urinary bladder. There is lower lumbar spine fusion surgery with multilevel laminectomy. There are clips from cholecystectomy. There are probably some bilateral renal calcifications. Impression ;nonacute abdomen. There are possible bilateral renal calculi. As read by Dr. Cortes (Dwight Gonzales) 51 male to ER for evaluation of chest pain anterior abdominal pain. Patient states feels is like his prior hiatal hernia pain. Patient is a CT of abdomen and pelvis which was negative, labwork which is normal. Patient stated this point he would now like to see the hospital he is feeling much improved, is reported negative 2 and can be discharged (Gatito Casas) - Lab Data Lab Results 07/12/17 07/12/17 07/12/17 Range/Units 23:50 23:50 23:50 WBC 10.4 (3.8-10.6) k/uL RBC 4.97 (4.30-5.90) m/uL Hgb 14.1 (13.0-17.5) gm/dL Hct 42.7 (39.0-53.0) % MCV 86.0 (80.0-100.0) fL MCH 28.3 (25.0-35.0) pg MCHC 33.0 (31.0-37.0) g/dL RDW 15.1 (11.5-15.5) % Plt Count 361 (150-450) k/uL Neutrophils % 77 % Lymphocytes % 15 % Monocytes % 6 % Eosinophils % 1 % Basophils % 1 % Neutrophils # 8.0 H (1.3-7.7) k/uL Lymphocytes # 1.5 (1.0-4.8) k/uL Monocytes # 0.6 (0-1.0) k/uL Eosinophils # 0.1 (0-0.7) k/uL Basophils # 0.1 (0-0.2) k/uL PT (9.0-12.0) sec INR (<1.2) APTT (22.0-30.0) sec Sodium 142 (137-145) mmol/L Potassium 4.1 (3.5-5.1) mmol/L Chloride 104 (98-107) mmol/L Carbon Dioxide 24 (22-30) mmol/L Anion Gap 14 mmol/L BUN 13 (9-20) mg/dL Creatinine 0.80 (0.66-1.25) mg/dL Est GFR (MDRD) Af Amer >60 (>60 ml/min/1.73 sqM) Est GFR (MDRD) Non-Af >60 (>60 ml/min/1.73 sqM) Glucose 130 H (74-99) mg/dL Plasma Lactic Acid Edd (0.7-2.0) mmol/L Calcium 10.3 H (8.4-10.2) mg/dL Total Bilirubin 0.7 (0.2-1.3) mg/dL AST 28 (17-59) U/L ALT 51 (21-72) U/L Alkaline Phosphatase 80 (38-126) U/L Total Creatine Kinase 300 H (55-170) U/L CK-MB (CK-2) 1.2 (0.0-2.4) ng/mL CK-MB (CK-2) Rel Index 0.4 Troponin I <0.012 (0.000-0.034) ng/mL Total Protein 8.0 (6.3-8.2) g/dL Albumin 4.9 (3.5-5.0) g/dL Amylase 59 (30-110) U/L Lipase 53 (23-300) U/L Urine Color Urine Appearance (Clear) Urine pH (5.0-8.0) Ur Specific [place] (1.001-1.035) Urine Protein (Negative) Urine Glucose (UA) (Negative) Urine Ketones (Negative) Urine Blood (Negative) Urine Nitrite (Negative) Urine Bilirubin (Negative) Urine Urobilinogen (<2.0) mg/dL Ur Leukocyte Esterase (Negative) Urine RBC (0-5) /hpf Urine WBC (0-5) /hpf Urine Mucus (None) /hpf 07/12/17 07/12/17 07/13/17 Range/Units 23:50 23:50 01:13 WBC (3.8-10.6) k/uL RBC (4.30-5.90) m/uL Hgb (13.0-17.5) gm/dL Hct (39.0-53.0) % MCV (80.0-100.0) fL MCH (25.0-35.0) pg MCHC (31.0-37.0) g/dL RDW (11.5-15.5) % Plt Count (150-450) k/uL Neutrophils % % Lymphocytes % % Monocytes % % Eosinophils % % Basophils % % Neutrophils # (1.3-7.7) k/uL Lymphocytes # (1.0-4.8) k/uL Monocytes # (0-1.0) k/uL Eosinophils # (0-0.7) k/uL Basophils # (0-0.2) k/uL PT 9.9 (9.0-12.0) sec INR 1.0 (<1.2) APTT 23.7 (22.0-30.0) sec Sodium (137-145) mmol/L Potassium (3.5-5.1) mmol/L Chloride (98-107) mmol/L Carbon Dioxide (22-30) mmol/L Anion Gap mmol/L BUN (9-20) mg/dL Creatinine (0.66-1.25) mg/dL Est GFR (MDRD) Af Amer (>60 ml/min/1.73 sqM) Est GFR (MDRD) Non-Af (>60 ml/min/1.73 sqM) Glucose (74-99) mg/dL Plasma Lactic Acid Edd 1.2 (0.7-2.0) mmol/L Calcium (8.4-10.2) mg/dL Total Bilirubin (0.2-1.3) mg/dL AST (17-59) U/L ALT (21-72) U/L Alkaline Phosphatase (38-126) U/L Total Creatine Kinase (55-170) U/L CK-MB (CK-2) (0.0-2.4) ng/mL CK-MB (CK-2) Rel Index Troponin I (0.000-0.034) ng/mL Total Protein (6.3-8.2) g/dL Albumin (3.5-5.0) g/dL Amylase (30-110) U/L Lipase (23-300) U/L Urine Color Yellow Urine Appearance Clear (Clear) Urine pH 5.5 (5.0-8.0) Ur Specific [place] 1.050 H (1.001-1.035) Urine Protein 1+ H (Negative) Urine Glucose (UA) Negative (Negative) Urine Ketones Negative (Negative) Urine Blood Trace H (Negative) Urine Nitrite Negative (Negative) Urine Bilirubin Negative (Negative) Urine Urobilinogen <2.0 (<2.0) mg/dL Ur Leukocyte Esterase Negative (Negative) Urine RBC 3 (0-5) /hpf Urine WBC 13 H (0-5) /hpf Urine Mucus Many H (None) /hpf Disposition <Dwight Gonzales - Last Filed: 07/13/17 00:49> <Gatito Casas - Last Filed: 07/13/17 03:43> Clinical Impression: Abdominal pain, Hiatal hernia Disposition: HOME SELF-CARE Condition: Good Instructions: Abdominal Pain (ED) Referrals: Trav Muniz MD [Primary Care Provider] - 1-2 days
--- NOTE | 2017-07-13 00:14 | XR ---
EXAMINATION TYPE: XR chest 2V DATE OF EXAM: 07/13/2017 COMPARISON: 05/22/2017 HISTORY: Chest pain TECHNIQUE: Frontal and lateral views of the chest are obtained. FINDINGS: Heart and mediastinum are normal. Lungs are clear of consolidation. There is small linear density at the left lung base. There is no pleural effusion. Bony thorax is intact. IMPRESSION: Mild scarring at the left lung base without change compared to old exam. No active cardi opulmonary disease. Normal heart.
[2017-07-13] MEDS ORDERED: HYDROmorphone 1 MG/ML 1 ML SYRINGE IVP STA ×3 (00:15→04:53)
[2017-07-13 00:16] LABS: Basophils # (A) 0.1 k/uL (0-0.2); Basophils % (A) 1 %; Eosinophils # (A) 0.1 k/uL (0-0.7); Eosinophils % (A) 1 %; HCT 42.7 % (39.0-53.0); HGB 14.1 gm/dL (13.0-17.5); Lymphocytes # (A) 1.5 k/uL (1.0-4.8); Lymphocytes % (A) 15 %; MCH 28.3 pg (25.0-35.0); Monocytes # (A) 0.6 k/uL (0-1.0); Monocytes % (A) 6 %; Neutrophils % (A) 77 %; Platelet Count 361 k/uL (150-450); RBC 4.97 m/uL (4.30-5.90); RDW 15.1 % (11.5-15.5); WBC 10.4 k/uL (3.8-10.6)
--- NOTE | 2017-07-13 00:16 | XR ---
EXAMINATION TYPE: XR abdomen 2V DATE OF EXAM: 07/13/2017 COMPARISON: 10/30/2015 HISTORY: Abdominal pain TECHNIQUE: 3 views FINDINGS: There is no sign of intestinal obstruction or pneumoperitoneum. Fecal pattern is normal. Th ere is contrast in the urinary bladder. There is lower lumbar spine fusion surgery with multilevel la minectomy. There are clips from cholecystectomy. There are probably some bilateral renal calcificatio ns. IMPRESSION: Nonacute abdomen. There are possible bilateral renal calculi.
[2017-07-13 00:24] LABS: Partial Thromboplastin Time 23.7 sec (22.0-30.0); Prothrombin Time 9.9 sec (9.0-12.0)
[2017-07-13 00:28] LABS: ALT 51 U/L (21-72); AST 28 U/L (17-59); Albumin 4.9 g/dL (3.5-5.0); Alkaline Phosphatase 80 U/L (38-126); Amylase 59 U/L (30-110); Anion Gap 14 mmol/L; Blood Urea Nitrogen 13 mg/dL (9-20); Calcium 10.3 mg/dL (8.4-10.2); Carbon Dioxide 24 mmol/L (22-30); Chloride 104 mmol/L (98-107); Glucose 130 mg/dL (74-99); Lipase 53 U/L (23-300); Potassium 4.1 mmol/L (3.5-5.1); Sodium 142 mmol/L (137-145); Total Bilirubin 0.7 mg/dL (0.2-1.3)
[2017-07-13 00:40] LABS: Creatine Kinase 300 U/L (55-170)
[2017-07-13 00:53] LABS: Creatine Kinase MB 1.2 ng/mL (0.0-2.4); Troponin I <0.012 ng/mL (0.000-0.034)
[2017-07-13] MEDS ORDERED: IOHEXOL 350 MG/ML 25 ML BOTTLE (ORAL USE) PO PRN (00:58)
[2017-07-13] MEDS ORDERED: RX INFO: IV CONTRAST WAS GIVEN 1 EACH MISC MISCELLANE PRN (00:58)
[2017-07-13 01:29] LABS: Appearance,Urine Clear (Clear); Bilirubin,Urine Negative (Negative); Blood,Urine Trace (Negative); Color,Urine Yellow; Glucose,Urine (UA) Negative (Negative); Ketones,Urine Negative (Negative); Leukocyte Esterase,Urine Negative (Negative); Mucus,Urine Many /hpf; Nitrite,Urine Negative (Negative); PH, Urine 5.5 (5.0-8.0); Protein,Urine 1+ (Negative); RBC,Urine 3 /hpf (0-5); Urobilinogen,Urine <2.0 mg/dL (<2.0); WBC,Urine 13 /hpf (0-5)
--- NOTE | 2017-07-13 03:21 | CT ---
EXAM: CT Abdomen and Pelvis With Intravenous Contrast CLINICAL HISTORY: Reason: mod severe epigastric pain hx hiatal hernia TECHNIQUE: Axial computed tomography images of the abdomen and pelvis with intravenous contrast. CTDI is 66.80 mGy and DLP is 2908 mGy-cm. This CT exam was performed using one or more of the following dose reduction techniques: automated exposure control, adjustment of the mA and/or kV according to patient size, and/or use of iterative reconstruction technique. Coronal and sagittal reformatted images were created and reviewed. COMPARISON: 03/06/2017 FINDINGS: Lower thorax: Small hiatal hernia stable in appearance. ABDOMEN: Liver: Fatty infiltration of the liver. Gallbladder and bile ducts: The gallbladder is surgically absent. No ductal dilation. Pancreas: Unremarkable. No mass. No ductal dilation. Spleen: Unremarkable. No splenomegaly. Adrenals: Unremarkable. No mass. Kidneys and ureters: The 3 cm cyst involving the anterior and superior aspect of the right kidney is stable. No calcifications or hydronephrosis. Stomach and bowel: There is a lipoma noted in the wall of the descending colon without evidence of mass effect, stenosis or obstruction. No mucosal thickening. Appendix: The appendix is not visualized. PELVIS: Bladder: Unremarkable. No mass. Reproductive: Unremarkable as visualized. ABDOMEN and PELVIS: Intraperitoneal space: Unremarkable. No free air. No significant fluid collection. Bones/joints: Posterior fusion from L4-S1 is noted with laminectomy defect. No acute fracture. No dislocation. Soft tissues: Unremarkable. Vasculature: Unremarkable. No abdominal aortic aneurysm. Lymph nodes: Unremarkable. No enlarged lymph nodes. IMPRESSION: No acute findings.
[2017-07-13] MEDS ORDERED: DICYCLOMINE 10 MG/ML 2 ML AMP IM STA (03:41)
[2017-07-13 16:26] VITALS: BP 135/78; PULSE 98; RESP 16
[2017-07-13 16:27] VITALS: TEMP 98
== END 2017-07-13 06:01 | disposition home or self-care (01) ==
LOC: EC 20:46
DX: K44.9 Diaphragmatic hernia without obstruction or gangrene (principal); I10 Essential (primary) hypertension; I25.2 Old myocardial infarction; G47.30 Sleep apnea, unspecified; Z86.14 Personal history of Methicillin resistant Staphylococcus aureus infection; Z90.49 Acquired absence of other specified parts of digestive tract; Z95.5 Presence of coronary angioplasty implant and graft; Z79.899 Other long term (current) drug therapy; Z88.1 Allergy status to other antibiotic agents; Z88.6 Allergy status to analgesic agent; Z88.5 Allergy status to narcotic agent; Z88.8 Allergy status to other drugs, medicaments and biological substances; Z99.89 Dependence on other enabling machines and devices
CPT/HCPCS: 99285 ×2; 96374 ×2; 96375 ×4; 96376 ×3; 96361 ×5; 96372 ×2; 36415 ×2; 93005; 80053; 82150; 82550; 82553; 83605; 83690; 84484 ×2; 85025; 85610; 85730; 81001; 87086; 71046; 74019; 74177; J0500; J2405; J1170; Q9967; C9113

== ENCOUNTER 2017-08-13 18:25 | Emergency (ER) | payer OTHER ==
[2017-08-13] MEDS ORDERED: KETOROLAC 30 MG/ML 1 ML VIAL IVP STA (19:09)
[2017-08-13] MEDS ORDERED: HYDROmorphone 4 MG/ML 1 ML SYRINGE IVP STA (19:09)
[2017-08-13] MEDS ORDERED: SODIUM CHLORIDE 0.9% 1,000 ML IV STA ×2 (19:09)
[2017-08-13] MEDS ORDERED: ONDANSETRON 4 MG/2 ML VIAL IVP STA (19:09)
[2017-08-13] MEDS ORDERED: diphenhydrAMINE 50 MG/ML 1 ML VIAL IVP STA (19:11)
[2017-08-13 19:25] LABS: Basophils # (A) 0.1 k/uL (0-0.2); Basophils % (A) 1 %; Eosinophils # (A) 0.5 k/uL (0-0.7); Eosinophils % (A) 5 %; HCT 43.6 % (39.0-53.0); HGB 14.7 gm/dL (13.0-17.5); Lymphocytes # (A) 1.8 k/uL (1.0-4.8); Lymphocytes % (A) 20 %; MCH 28.6 pg (25.0-35.0); MCHC 33.6 g/dL (31.0-37.0); MCV 85.1 fL (80.0-100.0); Mean Platelet Volume 6.7; Monocytes # (A) 0.4 k/uL (0-1.0); Monocytes % (A) 5 %; Neutrophils % (A) 67 %; Platelet Count 304 k/uL (150-450); RBC 5.12 m/uL (4.30-5.90); RDW 13.7 % (11.5-15.5)
--- NOTE | 2017-08-13 19:39 | ED ---
Abdominal Pain HPI - General Chief Complaint: Abdominal Pain Stated Complaint: Flank Pain Time Seen by Provider: 08/13/17 19:02 Source: patient, RN notes reviewed, old records reviewed Mode of arrival: EMS Limitations: no limitations - History of Present Illness Initial Comments: This is a 51-year-old male chief complaint of right-sided flank pain for approximately one day. He reports that he's had a history of multiple kidney stones and follow-up with specialist [facility]. He's had kidney stone removal surgeries. Patient states that he noticed some blood in his urine today and is having severe pain and nausea. He has not had any vomiting episodes normal bowel movements. Patient denies any recent fever, chills, shortness of breath, chest pain, back pain, abdominal pain, nausea vomiting, numbness or tingling, dysuria or hematuria, constipation or diarrhea, headaches or visual changes, or any other current symptoms - Related Data Home Medications Medication Instructions Recorded Confirmed Diltiazem Cd [Cardizem CD] 240 mg PO DAILY 01/19/14 08/13/17 Methocarbamol [Robaxin] 750 mg PO TID 05/22/17 08/13/17 HYDROcodone/APAP 10-325MG [[place] 1 tab PO QID PRN 08/01/17 08/13/17 10-325] Hydrochlorothiazide [Hydrodiuril] 25 mg PO DAILY 08/01/17 08/13/17 Lisinopril 40 mg PO DAILY 08/01/17 08/13/17 Atorvastatin [Lipitor] 20 mg PO DAILY 08/13/17 08/13/17 Tamsulosin HCl [Flomax] 0.4 mg PO DAILY 08/13/17 08/13/17 Allergies Allergy/AdvReac Type Severity Reaction Status Date / Time doxycycline Allergy Swelling Verified 08/13/17 19:06 ketorolac tromethamine Allergy Itching Verified 08/13/17 19:06 [From Toradol] morphine Allergy Rash/Hives Verified 08/13/17 19:06 metoclopramide HCl AdvReac Dystonic Verified 08/13/17 19:06 [From Reglan] Reaction prochlorperazine edisylate AdvReac Dystonic Verified 08/13/17 19:06 [From Compazine] Reaction prochlorperazine maleate AdvReac Dystonic Verified 08/13/17 19:06 [From Compazine] Reaction Review of Systems ROS Statement: Those systems with pertinent positive or pertinent negative responses have been documented in the HPI. ROS Other: All systems not noted in ROS Statement are negative. Past Medical History Past Medical History: Asthma, Chest Pain / Angina, GERD/Reflux, Hyperlipidemia, Hypertension, Myocardial Infarction ([place]), Mitral Valve Prolapse (MVP), Pulmonary Embolus (PE), Sleep Apnea/CPAP/BIPAP Additional Past Medical History / Comment(s): Hx kidney stones, UTI with urosepsis, renal cysts, chronic neck and back pain, "herniated, bulging discs, lumbar spine nerve damage" pain sometimes radiates down bilateral legs, R lower leg fx as 13 yr old, concussion. Uses CPAP machine., hx of bleeding ulcer. Last Myocardial Infarction Date:: 2011 History of Any Multi-Drug Resistant Organisms: MRSA Date of last positivie culture/infection: 2015 MDRO Source:: left axilla Past Surgical History: Appendectomy, Back Surgery, Cholecystectomy, Heart Catheterization, Hernia Repair Additional Past Surgical History / Comment(s): 2007 back surgery with decompression fusion at [facility], 2011 cardiac cath, multiple ESWL/ ureteral stents/ double J catheters, L inquinal hernia repair, PICC line for ABX for urosepsis-since removed., Hx of c-diff. Past Anesthesia/Blood Transfusion Reactions: No Reported Reaction Past Psychological History: No Psychological Hx Reported Smoking Status: Never smoker Past Alcohol Use History: None Reported Past Drug Use History: None Reported - Past Family History Mother Family Medical History: Cancer, Chest Pain / Angina, Congestive Heart Failure ( CHF), Osteoarthritis (OA), Thyroid Disorder General Exam - General Exam Comments Initial Comments: This patient is a 51-year-old male. No distress. Limitations: no limitations General appearance: alert, in no apparent distress Head exam: Present: atraumatic, normocephalic, normal inspection Eye exam: Present: normal appearance, PERRL, EOMI. Absent: scleral icterus, conjunctival injection, periorbital swelling ENT exam: Present: normal exam, mucous membranes moist Neck exam: Present: normal inspection. Absent: tenderness, meningismus, lymphadenopathy Respiratory exam: Present: normal lung sounds bilaterally Cardiovascular Exam: Present: regular rate, normal rhythm, normal heart sounds. Absent: systolic murmur, diastolic murmur, rubs, gallop, clicks GI/Abdominal exam: Present: soft, tenderness (Right lower quadrant and right flank tenderness.), normal bowel sounds. Absent: distended, guarding, rebound, rigid Extremities exam: Present: normal inspection, full ROM, normal capillary refill. Absent: tenderness, pedal edema, joint swelling, calf tenderness Back exam: Present: normal inspection Neurological exam: Present: alert, oriented X3, CN II-XII intact Psychiatric exam: Present: normal affect, normal mood Course Vital Signs 08/13/17 08/13/17 08/13/17 18:27 20:22 21:09 Temperature 98.8 F 98.7 F Pulse Rate 87 95 92 Respiratory 18 17 17 Rate Blood Pressure 173/98 158/94 147/92 O2 Sat by Pulse 98 96 97 Oximetry Medical Decision Making - Medical Decision Making his is a 51-year-old male chief complaint of right-sided flank pain for approximately one day. He reports that he's had a history of multiple kidney stones and follow-up with specialist [facility]. He's had kidney stone removal surgeries. Patient states that he noticed some blood in his urine today and is having severe pain and nausea. He has not had any vomiting episodes normal bowel movements. Patients lab work was I reviewed it with a normal limits. No blood in his urine. He did have something never get flank pain and tenderness, I was given IV fluids and pain medicine. Patients CT was negative for any acute process. Right cortical cyst with in the kidney. Patient will be discharged this time to take us at home he medicine. Discussed following up with urology and PCP. - Lab Data Result diagrams: 08/13/17 19:05 08/13/17 19:05 Lab Results 08/13/17 08/13/17 08/13/17 Range/Units 19:05 19:05 19:05 WBC 9.0 (3.8-10.6) k/uL RBC 5.12 (4.30-5.90) m/uL Hgb 14.7 (13.0-17.5) gm/dL Hct 43.6 (39.0-53.0) % MCV 85.1 (80.0-100.0) fL MCH 28.6 (25.0-35.0) pg MCHC 33.6 (31.0-37.0) g/dL RDW 13.7 (11.5-15.5) % Plt Count 304 (150-450) k/uL Neutrophils % 67 % Lymphocytes % 20 % Monocytes % 5 % Eosinophils % 5 % Basophils % 1 % Neutrophils # 6.0 (1.3-7.7) k/uL Lymphocytes # 1.8 (1.0-4.8) k/uL Monocytes # 0.4 (0-1.0) k/uL Eosinophils # 0.5 (0-0.7) k/uL Basophils # 0.1 (0-0.2) k/uL Sodium 139 (137-145) mmol/L Potassium 5.0 (3.5-5.1) mmol/L Chloride 105 (98-107) mmol/L Carbon Dioxide 20 L (22-30) mmol/L Anion Gap 14 mmol/L BUN 12 (9-20) mg/dL Creatinine 0.70 (0.66-1.25) mg/dL Est GFR (MDRD) Af Amer >60 (>60 ml/min/1.73 sqM) Est GFR (MDRD) Non-Af >60 (>60 ml/min/1.73 sqM) Glucose 112 H (74-99) mg/dL Calcium 10.2 (8.4-10.2) mg/dL Total Bilirubin 0.6 (0.2-1.3) mg/dL AST 53 (17-59) U/L ALT 116 H (21-72) U/L Alkaline Phosphatase 104 (38-126) U/L Total Protein 7.8 (6.3-8.2) g/dL Albumin 4.6 (3.5-5.0) g/dL Amylase 75 (30-110) U/L Lipase 58 (23-300) U/L Urine Color Yellow Urine Appearance Clear (Clear) Urine pH 6.5 (5.0-8.0) Ur Specific [place] 1.018 (1.001-1.035) Urine Protein Negative (Negative) Urine Glucose (UA) Negative (Negative) Urine Ketones Negative (Negative) Urine Blood Negative (Negative) Urine Nitrite Negative (Negative) Urine Bilirubin Negative (Negative) Urine Urobilinogen <2.0 (<2.0) mg/dL Ur Leukocyte Esterase Negative (Negative) - Radiology Data Radiology results: report reviewed Right renal cortical cyst. No evidence of renal stone or obstruction. No sign of acute abdomen or pelvis. No adverse changes compared to old exam. Disposition Clinical Impression: Right flank pain Disposition: HOME SELF-CARE Condition: Good Instructions: Abdominal Pain (ED) Additional Instructions: Patient should take at home pain medicine. Follow-up with urologist and return to the emergency department if any alarming signs or symptoms occur. Referrals: Trav Muniz MD [Primary Care Provider] - 1-2 days Nacho Gaitan MD [STAFF PHYSICIAN] - 1-2 days Time of Disposition: 20:55
[2017-08-13 19:43] LABS: ALT 116 U/L (21-72); AST 53 U/L (17-59); Albumin 4.6 g/dL (3.5-5.0); Alkaline Phosphatase 104 U/L (38-126); Amylase 75 U/L (30-110); Anion Gap 14 mmol/L; Blood Urea Nitrogen 12 mg/dL (9-20); Calcium 10.2 mg/dL (8.4-10.2); Carbon Dioxide 20 mmol/L (22-30); Chloride 105 mmol/L (98-107); Glucose 112 mg/dL (74-99); Lipase 58 U/L (23-300); Sodium 139 mmol/L (137-145); Total Bilirubin 0.6 mg/dL (0.2-1.3); Total Protein 7.8 g/dL (6.3-8.2)
[2017-08-13 19:57] LABS: Appearance,Urine Clear (Clear); Bilirubin,Urine Negative (Negative); Blood,Urine Negative (Negative); Color,Urine Yellow; Glucose,Urine (UA) Negative (Negative); Ketones,Urine Negative (Negative); Leukocyte Esterase,Urine Negative (Negative); Nitrite,Urine Negative (Negative); PH, Urine 6.5 (5.0-8.0); Protein,Urine Negative (Negative); Specific Gravity,Urine 1.018 (1.001-1.035); Urobilinogen,Urine <2.0 mg/dL (<2.0)
--- NOTE | 2017-08-13 20:16 | CT ---
EXAMINATION TYPE: CT abdomen pelvis wo con DATE OF EXAM: 08/13/2017 COMPARISON: 07/13/2017 HISTORY: Right sided flank pain CT DLP: 1871.3 mGycm Automated exposure control for dose reduction was used. TECHNIQUE: Helical acquisition of images was performed from the lung bases through the pelvis. FINDINGS: Lung bases are clear of consolidation. There is no pleural effusion. Liver spleen appear normal. Incr eased appears normal. There are clips from cholecystectomy. Bile ducts are not dilated. There is no adrenal mass. There is a 3 cm cortical cyst on the anterior right kidney. There is no hyd ronephrosis. There is no retroperitoneal adenopathy. Ureters are not dilated. I see no intestinal wall thickening. There are no dilated loops. Appendix is not definitely seen. The re is no sign of appendicitis. There is metal artifact from lumbar spine surgery. I see no bony destr uctive process. IMPRESSION: RIGHT RENAL CORTICAL CYST. NO EVIDENCE OF RENAL STONE OR OBSTRUCTION. NO SIGN OF ACUTE ABDOMEN AND PE LVIS. No adverse change compared to old exam.
--- NOTE | 2017-08-13 20:21 | XR ---
EXAMINATION TYPE: XR KUB DATE OF EXAM: 08/13/2017 COMPARISON: 10/30/2015 HISTORY: Abdominal pain TECHNIQUE: 2 views FINDINGS: There is no sign of intestinal obstruction or pneumoperitoneum. Fecal pattern is normal. Th ere are clips from cholecystectomy. There is lumbar spine fusion surgery. There are no pathologic kamryn cifications over the kidneys. IMPRESSION: Nonacute abdomen. No change.
[2017-08-13 20:23] VITALS: RESP 17
[2017-08-13] MEDS: MORPHINE SULFATE 4 MG/ML SYRINGE IVP STA ×2 (21:03→21:05)
[2017-08-13 21:10] VITALS: BP 147/92; PULSE 92; TEMP 98.7
== END 2017-08-13 21:17 | disposition home or self-care (01) ==
LOC: EC 18:25
DX: R10.9 Unspecified abdominal pain (principal); R31.9 Hematuria, unspecified; R11.0 Nausea; E78.5 Hyperlipidemia, unspecified; I10 Essential (primary) hypertension; I25.2 Old myocardial infarction; G47.30 Sleep apnea, unspecified; Z99.89 Dependence on other enabling machines and devices; Z86.14 Personal history of Methicillin resistant Staphylococcus aureus infection; Z90.49 Acquired absence of other specified parts of digestive tract; Z95.5 Presence of coronary angioplasty implant and graft; Z79.899 Other long term (current) drug therapy; Z88.1 Allergy status to other antibiotic agents; Z88.6 Allergy status to analgesic agent; Z88.5 Allergy status to narcotic agent; Z88.8 Allergy status to other drugs, medicaments and biological substances; Z53.20 Procedure and treatment not carried out because of patient's decision for unspecified reasons
CPT/HCPCS: 36415; 80053; 82150; 83690; 85025; 81003; 74018; 74176; 99285; 96374; 96375 ×3; 96361; J2270; J1200; J2405; J1170

== ENCOUNTER 2017-09-02 20:07 | Emergency (ER) | payer OTHER ==
[2017-09-02 20:20] VITALS: BP 173/84; PULSE 104; RESP 18; TEMP 98.3
[2017-09-02] MEDS ORDERED: methylPREDNISolone SOD SUCCI 125 MG/2 ML VIAL IM STA (20:29)
[2017-09-02] MEDS ORDERED: ORPHENADRINE 30 MG/ML 2 ML VIAL IM STA (20:30)
--- NOTE | 2017-09-02 20:37 | ED ---
Back Pain HPI - General Chief Complaint: Back Pain/Injury Stated Complaint: Back Pain Time Seen by Provider: 09/02/17 20:13 Source: patient, RN/MD, RN notes reviewed Limitations: no limitations - History of Present Illness Initial Comments: This is a 51-year-old male who presents to the emergency department with chief complaint of acute low back pain. Patient states that his mother has been bedridden at home. He states that he has been having to help lift her. Patient states that his mother had a fall last night and he had to help lift her from the ground. He states that today he helped lift her into the ambulance. These 2 incidents put strain on his low back. He states that he has sharp shooting pain down his right leg. Patient states that approximately 4 hours ago he went to get up out of a chair and felt a sharp pinch in his low back. He states he had an isolated incident of bowel and bladder incontinence at that time. Denies previous or subsequent loss of bladder or bowel function. He denies any saddle paresthesias. Patient states he has an extensive history of low back issues. He states he has a surgeon at [place] who is supposed to be performing a nerve block of his low back but patient has yet to follow-up. He states pain is localized to his central low back with radiation down the right leg. Denies fever, chills, chest pain, shortness of breath, abdominal pain, nausea or vomiting, constipation or diarrhea, dysuria or hematuria, headache or vision changes. - Related Data Home Medications Medication Instructions Recorded Confirmed Diltiazem Cd [Cardizem CD] 240 mg PO DAILY 01/19/14 08/13/17 Methocarbamol [Robaxin] 750 mg PO TID 05/22/17 08/13/17 HYDROcodone/APAP 10-325MG [[place] 1 tab PO QID PRN 08/01/17 08/13/17 10-325] Hydrochlorothiazide [Hydrodiuril] 25 mg PO DAILY 08/01/17 08/13/17 Lisinopril 40 mg PO DAILY 08/01/17 08/13/17 Atorvastatin [Lipitor] 20 mg PO DAILY 08/13/17 08/13/17 Tamsulosin HCl [Flomax] 0.4 mg PO DAILY 08/13/17 08/13/17 Allergies Allergy/AdvReac Type Severity Reaction Status Date / Time doxycycline Allergy Swelling Verified 09/02/17 20:15 ketorolac tromethamine Allergy Itching Verified 09/02/17 20:15 [From Toradol] morphine Allergy Rash/Hives Verified 09/02/17 20:15 metoclopramide HCl AdvReac Dystonic Verified 09/02/17 20:15 [From Reglan] Reaction prochlorperazine edisylate AdvReac Dystonic Verified 09/02/17 20:15 [From Compazine] Reaction prochlorperazine maleate AdvReac Dystonic Verified 09/02/17 20:15 [From Compazine] Reaction Review of Systems ROS Statement: Those systems with pertinent positive or pertinent negative responses have been documented in the HPI. ROS Other: All systems not noted in ROS Statement are negative. Past Medical History Past Medical History: Asthma, Chest Pain / Angina, GERD/Reflux, Hyperlipidemia, Hypertension, Myocardial Infarction ([place]), Mitral Valve Prolapse (MVP), Pulmonary Embolus (PE), Sleep Apnea/CPAP/BIPAP Additional Past Medical History / Comment(s): Hx kidney stones, UTI with urosepsis, renal cysts, chronic neck and back pain, "herniated, bulging discs, lumbar spine nerve damage" pain sometimes radiates down bilateral legs, R lower leg fx as 13 yr old, concussion. Uses CPAP machine., hx of bleeding ulcer. Last Myocardial Infarction Date:: 2011 History of Any Multi-Drug Resistant Organisms: C-DIFF, MRSA Date of last positivie culture/infection: 2015 MDRO Source:: left axilla Past Surgical History: Appendectomy, Back Surgery, Cholecystectomy, Heart Catheterization, Hernia Repair Additional Past Surgical History / Comment(s): 2007 back surgery with decompression fusion at [facility], 2011 cardiac cath, multiple ESWL/ ureteral stents/ double J catheters, L inquinal hernia repair, PICC line for ABX for urosepsis-since removed., Hx of c-diff. Past Anesthesia/Blood Transfusion Reactions: No Reported Reaction Past Psychological History: No Psychological Hx Reported Smoking Status: Never smoker Past Alcohol Use History: None Reported Past Drug Use History: None Reported - Past Family History Mother Family Medical History: Cancer, Chest Pain / Angina, Congestive Heart Failure ( CHF), Osteoarthritis (OA), Thyroid Disorder General Exam - General Exam Comments Initial Comments: General: Awake and alert, well-developed; in no apparent distress. Lying on his back on ED stretcher. HEENT: Head atraumatic, normocephalic. Pupils are equal, round and reactive to light. Extraocular movements intact. Oropharynx moist without erythema or exudate. Neck: Supple. Normal ROM. Cardiovascular: Regular rate and rhythm. No murmurs, rubs or gallops. Chest symmetrical. Respiratory: Lungs clear to auscultation bilaterally. No wheezes, rales or rhonchi. Normal respiratory effort with no use of accessory muscles. Musculoskeletal: Normal range of motion. Tenderness on palpation of mid low back. Previous surgical scars noted. Pedal pulses 2+ equal and palpable bilaterally. Sensation is intact. Skin: [place], warm and dry without rashes. Neurological: Alert and oriented x3. CN II-XII grossly intact. Speech is fluent and answers are appropriate. No focal neuro deficits. Psychiatric: Normal mood and affect. No overt signs of depression or anxiety noted. Limitations: no limitations Rectal exam: Present: normal inspection, normal rectal tone Course Vital Signs 09/02/17 20:15 Temperature 98.3 F Pulse Rate 104 H Respiratory 18 Rate Blood Pressure 173/84 O2 Sat by Pulse 100 Oximetry Medical Decision Making - Medical Decision Making This is a 51-year-old male with extensive history of low back issues that presents to the emergency department with chief complaint of acute low back pain. Patient states that pain began yesterday and progressively worsened today after helping to lift his mother who has been bed-ridden. He states that he did have an isolated incident of fecal and urinary incontinence upon standing up when he felt a sharp pinching pain in his low back. He has not had any episodes of incontinence previously or subsequently. In the emergency department, he was given medications which helped improve symptoms. He is able to bear weight, ambulate and rectal tone is normal. X-ray lumbar spine revealed no acute abnormalities. Patient's vital signs are stable and he is in no acute distress. He will be discharged home. He is in agreement and voices understanding. All questions were answered. Disposition Clinical Impression: Strain of lumbar region Disposition: HOME SELF-CARE Condition: Good Instructions: Acute Low Back Pain (ED), Low Back Strain (ED) Additional Instructions: Please follow up with primary care provider within 1-2 days. Return to emergency department if symptoms should worsen or any concerns arise. Referrals: Trav Muniz MD [Primary Care Provider] - 1-2 days Time of Disposition: 22:13
--- NOTE | 2017-09-02 20:49 | XR ---
EXAMINATION TYPE: XR lumbar spine 2 or 3V DATE OF EXAM: 09/02/2017 CLINICAL HISTORY: Low back pain after lifting injury today TECHNIQUE: Frontal, lateral, and oblique images of the lumbar spine are obtained. COMPARISON: CT abdomen and pelvis August 13, 2017 FINDINGS: There are 5 lumbar type vertebral bodies redemonstrated. The lumbar spine redemonstrates stable and satisfactory alignment without evidence of acute fracture or dislocation. There is redemon stration of posterior interpedicular rods and screws bilaterally L4-S1 levels. Laminectomy defects ar e spinous process resection L5 level is redemonstrated. Artificial disc material lumbosacral junction is again seen. There is stable mild to moderate disc space narrowing L4-L5 level. There is prominent spur from anterior superior L4 endplate. There is additional mild multilevel anterior and lateral sp urring. There is mild disc space narrowing with moderate anterior spurring at T11-T12 level redemonst rated. Cholecystectomy clips are noted in overlying soft tissue. IMPRESSION: No acute fracture or dislocation is seen in the lumbar spine. No significant change from recent CT.
[2017-09-02] MEDS ORDERED: HYDROmorphone 0.5 MG/0.5 ML SYRINGE IM STA (20:54)
== END 2017-09-02 23:10 | disposition home or self-care (01) ==
LOC: EC 20:07
DX: S39.012A Strain of muscle, fascia and tendon of lower back, initial encounter (principal); R32 Unspecified urinary incontinence; I10 Essential (primary) hypertension; E78.5 Hyperlipidemia, unspecified; I25.2 Old myocardial infarction; G47.30 Sleep apnea, unspecified; Z99.89 Dependence on other enabling machines and devices; Z86.14 Personal history of Methicillin resistant Staphylococcus aureus infection; Z90.49 Acquired absence of other specified parts of digestive tract; Z98.1 Arthrodesis status; Z79.899 Other long term (current) drug therapy; Z88.1 Allergy status to other antibiotic agents; Z88.5 Allergy status to narcotic agent; Z88.6 Allergy status to analgesic agent; Z88.8 Allergy status to other drugs, medicaments and biological substances; X50.0XXA Overexertion from strenuous movement or load, initial encounter; Y93.F2 Activity, caregiving, lifting; Y92.009 Unspecified place in unspecified non-institutional (private) residence as the place of occurrence of the external cause
CPT/HCPCS: 72100; 96372 ×3; 99284; J2360; J2930; J1170

== ENCOUNTER 2017-12-11 13:45 | Observation (INO) | payer OTHER ==
[2017-12-11] MEDS ORDERED: ASPIRIN 81 MG PO STA (13:58)
[2017-12-11] MEDS ORDERED: NITROGLYCERIN OINT 1 INCH/GM PACKET TOPICAL STA (13:58)
--- NOTE | 2017-12-11 14:01 | ED ---
General Adult HPI - General Chief complaint: Chest Pain Stated complaint: Chest Pain Time Seen by Provider: 12/11/17 13:45 Source: EMS, RN notes reviewed Mode of arrival: EMS Limitations: no limitations - History of Present Illness Initial comments: This is a 52-year-old male who presents emergency Department complaining of jaw pain last evening and chest pain today. Patient states she short of breath with the chest pain and it worsens with exertion. Patient states he has had coronary artery disease in the past and had angioplasty but no stent. Patient also states he has high blood pressure. Patient denies any family history or smoking history. Patient states the pain is currently there. Patient denies any jaw pain at this time. Patient denies any recent fever chills or cough. Patient denies abdominal pain patient denies any nausea vomiting. Patient denies any lightheadedness or dizziness. Patient denies any syncopal or near syncopal episodes. Patient denies headache patient denies numbness weakness. - Related Data Home Medications Medication Instructions Recorded Confirmed Diltiazem Cd [Cardizem CD] 240 mg PO DAILY 01/19/14 12/11/17 Hydrochlorothiazide [Hydrodiuril] 25 mg PO DAILY 08/01/17 12/11/17 Lisinopril 40 mg PO DAILY 08/01/17 12/11/17 Atorvastatin [Lipitor] 20 mg PO DAILY 08/13/17 12/11/17 Tamsulosin HCl [Flomax] 0.4 mg PO DAILY PRN 08/13/17 12/11/17 Hydrocodone/Acetaminophen [[place] 1 tab PO Q8H PRN 12/11/17 12/11/17 7.5-325] Methocarbamol [Robaxin] 500 mg PO TID PRN 12/11/17 12/11/17 Omeprazole [PriLOSEC] 20 mg PO DAILY 12/11/17 12/11/17 Pregabalin [Lyrica] 75 mg PO BID 12/11/17 12/11/17 Allergies Allergy/AdvReac Type Severity Reaction Status Date / Time doxycycline Allergy Swelling Verified 12/11/17 14:27 ketorolac tromethamine Allergy Itching Verified 12/11/17 14:27 [From Toradol] morphine Allergy Rash/Hives Verified 12/11/17 14:27 metoclopramide HCl AdvReac Dystonic Verified 12/11/17 14:27 [From Reglan] Reaction prochlorperazine edisylate AdvReac Dystonic Verified 12/11/17 14:27 [From Compazine] Reaction prochlorperazine maleate AdvReac Dystonic Verified 12/11/17 14:27 [From Compazine] Reaction Review of Systems ROS Statement: Those systems with pertinent positive or pertinent negative responses have been documented in the HPI. ROS Other: All systems not noted in ROS Statement are negative. Past Medical History Past Medical History: Asthma, Chest Pain / Angina, GERD/Reflux, Hyperlipidemia, Hypertension, Myocardial Infarction (MS), Mitral Valve Prolapse (MVP), Pulmonary Embolus (PE), Sleep Apnea/CPAP/BIPAP Additional Past Medical History / Comment(s): Hx kidney stones, UTI with urosepsis, renal cysts, chronic neck and back pain, "herniated, bulging discs, lumbar spine nerve damage" pain sometimes radiates down bilateral legs, R lower leg fx as 13 yr old, concussion. Uses CPAP machine., hx of bleeding ulcer. Last Myocardial Infarction Date:: 2011 History of Any Multi-Drug Resistant Organisms: C-DIFF, MRSA Date of last positivie culture/infection: 2015 MDRO Source:: left axilla Past Surgical History: Appendectomy, Back Surgery, Cholecystectomy, Heart Catheterization, Hernia Repair Additional Past Surgical History / Comment(s): 2007 back surgery with decompression fusion at [facility], 2011 cardiac cath, multiple ESWL/ ureteral stents/ double J catheters, L inquinal hernia repair, PICC line for ABX for urosepsis-since removed., Hx of c-diff. Past Anesthesia/Blood Transfusion Reactions: No Reported Reaction Past Psychological History: No Psychological Hx Reported Smoking Status: Never smoker Past Alcohol Use History: None Reported Past Drug Use History: None Reported - Past Family History Mother Family Medical History: Cancer, Chest Pain / Angina, Congestive Heart Failure ( CHF), Osteoarthritis (OA), Thyroid Disorder General Exam - General Exam Comments Initial Comments: GENERAL: Patient is well-developed and well-nourished. Patient is nontoxic and well- hydrated and is in mild distress. ENT: Neck is soft and supple. No significant lymphadenopathy is noted. Oropharynx is clear. Moist mucous membranes. Neck has full range of motion without eliciting any pain. EYES: The sclera were anicteric and conjunctiva were pink and moist. Extraocular movements were intact and pupils were equal round and reactive to light. Eyelids were unremarkable. PULMONARY: Unlabored respirations. Good breath sounds bilaterally. No audible rales rhonchi or wheezing was noted. CARDIOVASCULAR: There is a regular rate and rhythm without any murmurs gallops or rubs. ABDOMEN: Soft and nontender with normal bowel sounds. No palpable organomegaly was noted. There is no palpable pulsatile mass. SKIN: Skin is clear with no lesions or rashes and otherwise unremarkable. NEUROLOGIC: Patient is alert and oriented x3. Cranial nerves II through XII are grossly intact. Motor and sensory are also intact. Normal speech, volume and content. Symmetrical smile. MUSCULOSKELETAL: Normal extremities with adequate strength and full range of motion. No lower extremity swelling or edema. No calf tenderness. LYMPHATICS: No significant lymphadenopathy is noted PSYCHIATRIC: Normal psychiatric evaluation. Normal interpersonal interactions appears functionally intact in deals appropriately with others. No signs of depression. No signs of anxiety. Limitations: no limitations Course Vital Signs 12/11/17 12/11/17 12/11/17 13:47 14:35 15:03 Temperature 98.5 F Pulse Rate 124 H 108 H 106 H Respiratory 20 20 18 Rate Blood Pressure 138/91 128/84 154/94 O2 Sat by Pulse 100 97 97 Oximetry Medical Decision Making - Medical Decision Making EKG shows sinus tachycardia at 116 bpm NM interval 146 QRS is under 4 QT interval 336 QTC is 467. Patient's EKG shows no ST segment elevation or depression or T wave abnormalities are noted. Chest x-ray shows no acute abnormality. I spoke with the [place] [facility]ist agreed to admit the patient admitted the patient I consult to cardiology and I wrote admitting orders. - Lab Data Result diagrams: 12/11/17 14:30 12/11/17 14:30 Lab Results 12/11/17 12/11/17 12/11/17 Range/Units 14:30 14:30 14:30 WBC 7.1 (3.8-10.6) k/uL RBC 4.72 (4.30-5.90) m/uL Hgb 13.8 (13.0-17.5) gm/dL Hct 39.8 (39.0-53.0) % MCV 84.3 (80.0-100.0) fL MCH 29.1 (25.0-35.0) pg MCHC 34.5 (31.0-37.0) g/dL RDW 14.3 (11.5-15.5) % Plt Count 315 (150-450) k/uL Neutrophils % 73 % Lymphocytes % 18 % Monocytes % 4 % Eosinophils % 3 % Basophils % 1 % Neutrophils # 5.2 (1.3-7.7) k/uL Lymphocytes # 1.3 (1.0-4.8) k/uL Monocytes # 0.3 (0-1.0) k/uL Eosinophils # 0.2 (0-0.7) k/uL Basophils # 0.0 (0-0.2) k/uL Sodium 141 (137-145) mmol/L Potassium 4.4 (3.5-5.1) mmol/L Chloride 105 (98-107) mmol/L Carbon Dioxide 20 L (22-30) mmol/L Anion Gap 16 mmol/L BUN 14 (9-20) mg/dL Creatinine 0.70 (0.66-1.25) mg/dL Est GFR (CKD-EPI)AfAm >90 (>60 ml/min/1.73 sqM) Est GFR (CKD-EPI)NonAf >90 (>60 ml/min/1.73 sqM) Glucose 120 H (74-99) mg/dL Calcium 9.9 (8.4-10.2) mg/dL Magnesium 2.1 (1.6-2.3) mg/dL Total Bilirubin 0.4 (0.2-1.3) mg/dL AST 28 (17-59) U/L ALT 46 (21-72) U/L Alkaline Phosphatase 76 (38-126) U/L Total Creatine Kinase 270 H (55-170) U/L CK-MB (CK-2) 1.2 (0.0-2.4) ng/mL CK-MB (CK-2) Rel Index 0.4 Troponin I <0.012 (0.000-0.034) ng/mL Total Protein 7.4 (6.3-8.2) g/dL Albumin 4.5 (3.5-5.0) g/dL Disposition Clinical Impression: Unstable angina pectoris Disposition: ADMITTED IP TO THIS HOSP Referrals: Trav Muniz MD [Primary Care Provider] - 1-2 days Time of Disposition: 15:21
[2017-12-11 14:40] LABS: Basophils % (A) 1 %; Eosinophils # (A) 0.2 k/uL (0-0.7); Eosinophils % (A) 3 %; HCT 39.8 % (39.0-53.0); HGB 13.8 gm/dL (13.0-17.5); Lymphocytes # (A) 1.3 k/uL (1.0-4.8); Lymphocytes % (A) 18 %; MCH 29.1 pg (25.0-35.0); MCHC 34.5 g/dL (31.0-37.0); MCV 84.3 fL (80.0-100.0); Mean Platelet Volume 6.4; Monocytes # (A) 0.3 k/uL (0-1.0); Monocytes % (A) 4 %; Neutrophils # (A) 5.2 k/uL (1.3-7.7); Neutrophils % (A) 73 %; Platelet Count 315 k/uL (150-450); RBC 4.72 m/uL (4.30-5.90); RDW 14.3 % (11.5-15.5); WBC 7.1 k/uL (3.8-10.6)
[2017-12-11 14:49] LABS: ALT 46 U/L (21-72); AST 28 U/L (17-59); Albumin 4.5 g/dL (3.5-5.0); Alkaline Phosphatase 76 U/L (38-126); Anion Gap 16 mmol/L; Blood Urea Nitrogen 14 mg/dL (9-20); Calcium 9.9 mg/dL (8.4-10.2); Carbon Dioxide 20 mmol/L (22-30); Chloride 105 mmol/L (98-107); Glucose 120 mg/dL (74-99); Magnesium 2.1 mg/dL (1.6-2.3); Potassium 4.4 mmol/L (3.5-5.1); Sodium 141 mmol/L (137-145); Total Bilirubin 0.4 mg/dL (0.2-1.3); Total Protein 7.4 g/dL (6.3-8.2)
[2017-12-11 15:04] LABS: Creatine Kinase 270 U/L (55-170)
--- NOTE | 2017-12-11 15:08 | XR ---
EXAMINATION TYPE: XR chest 2V DATE OF EXAM: 12/11/2017 COMPARISON: Prior chest 07/13/2017 HISTORY: Chest pain TECHNIQUE: Frontal and lateral views of the chest are obtained. FINDINGS: There is no focal air space opacity, pleural effusion, or pneumothorax seen. The cardiac silhouette size is within normal limits. Pleural thickening along the lateral chest margins is stabl e and symmetric. Postop changes are present in the cervical spine. The osseous structures are intact. IMPRESSION: No acute cardiopulmonary process.
[2017-12-11 15:15] LABS: Creatine Kinase MB 1.2 ng/mL (0.0-2.4); Troponin I <0.012 ng/mL (0.000-0.034)
[2017-12-11 16:51] LABS: D-Dimer 0.33 mg/L FEU (<0.60); Prothrombin Time 9.5 sec (9.0-12.0)
[2017-12-11] MEDS: NITROGLYCERIN SL TABS 0.4 MG TAB SUBLINGUAL PRN ×5 (17:14→22:48)
[2017-12-11] MEDS ORDERED: METHOCARBAMOL 500 MG TAB PO PRN (17:21)
[2017-12-11] MEDS ORDERED: TAMSULOSIN 0.4 MG CAP.ER.24H PO PRN (17:21)
[2017-12-11] MEDS: HYDROmorphone 0.5 MG/0.5 ML SYRINGE IVP PRN ×2 (17:34→23:41)
[2017-12-11] MEDS: NITROGLYCERIN OINT 1 INCH/GM PACKET TOPICAL SCH ×2 (17:36→23:42)
[2017-12-11] MEDS: PREGABALIN 75 MG CAP PO SCH (20:54)
[2017-12-11] MEDS: HYDROcodone/APAP 7.5-325MG 1 EACH TAB PO PRN (21:33)
[2017-12-11 21:35] LABS: Creatine Kinase 240 U/L (55-170)
[2017-12-11 21:47] LABS: Creatine Kinase MB 0.9 ng/mL (0.0-2.4); Troponin I <0.012 ng/mL (0.000-0.034)
--- NOTE | 2017-12-12 03:29 | HP ---
HISTORY AND PHYSICAL DATE OF ADMISSION: 12/11/17 CHIEF COMPLAINT: Chest pain. HISTORY OF PRESENT ILLNESS: This 52-year-old gentleman with a past medical history of multiple medical problems including history of asthma, GERD, hypertension, hyperlipidemia, myocardial function, history ofpulmonary embolism being followed by Dr. Trav Muniz in the outpatient setting, was complaining of chest pain. The pain was felt initially as jaw pain and subsequently the pain was felt in the anterior part of the chest which was actually worsening with exertion. The patient does radiate into the shoulder and the patient came to [facility] and admitted for further evaluation and treatment. There is no history of any fever, rigor or chills. No history of headache, loss of consciousness or seizures. Initial EKG in the ER showed sinus tachycardia without any acute changes and a D-dimer was negative and troponin is also negative. There is no history of fever, rigors, chills. No history of headache, loss of consciousness , seizures. PAST MEDICAL HISTORY: History of asthma, GERD, hypertension, hyperlipidemia, history of myocardial infarction, history of , appendectomy, back surgery or MRSA. MEDS: Medications prior to admission include: 1. Flomax 0.4 daily p.r.n. 2. Robaxin 500 mg p.o. t.i.d. p.r.n. 3. HydroDIURIL 25 mg p.o. daily. 4. Lyrica 75 mg p.o. b.i.d. 5. Cardizem CD 240 mg p.o. daily. 6. Lipitor 20 mg p.o. daily. 7. Prilosec 20 mg p.o. daily. 8. [place] 7.5 q.8h p.r.n. 9. Lisinopril 40 mg p.o. daily. ALLERGIES: DOXYCYCLINE, KETOROLAC, MORPHINE, REGLAN, COMPAZINE. FAMILY HISTORY: History of cancer, chest pain, CHF, DJD, hypothyroidism, lung problems. SOCIAL HISTORY: No history of smoking. No history of alcohol intake. REVIEW OF SYSTEMS: ENT: No diminished hearing or vision. CARDIOVASCULAR: As mentioned earlier. RESPIRATORY SYSTEM: As mentioned earlier. GI no nausea. : No dysuria. Nervous system: No numbness or weakness. ALLERGY/IMMUNOLOGY: No asthma or hayfever. Musculoskeletal as mentioned earlier. Hematology/Oncology: No history of anemia. Endocrine: No history of diabetes or hypothyroidism. Constitutional: As mentioned earlier. Dermatology: Negative. Rheumatology: Negative. Psychiatry: As mentioned earlier. PHYSICAL EXAM: Pulse is 108, blood pressure 126/63, respiration 28, temperature 98.1, pulse ox 99% on 2 L. HEENT is conjunctivae normal. Oral mucosa moist. NECK is no jugular venous distention. No lymph node enlargement. CARDIOVASCULAR SYSTEM: S1, S2. RESPIRATION: Breath sounds diminished in the bases. No rhonchi. No crackles. ABDOMEN: Soft, nontender. No mass palpable. LEGS: No edema. No swelling. NERVOUS SYSTEM: Higher functions as mentioned earlier. Moves all 4 limbs. No focal motor or sensory deficits. LYMPHATICS: No lymph nodes palpable in the neck, axillae or groin. SKIN: No ulcer, rash or bleeding. LABS: At this time shows CBC within normal limits and CO2 is 20 and glucose 120. Creatine kinase is 270 and 240. ASSESSMENT: 1. Chest pain possible unstable angina. 2. Sinus tachycardia. 3. Increased creatine kinase. 4. History of asthma. 5. History of gastroesophageal reflux disease. 6. Hypertension. 7. Hyperlipidemia. 8. History of myocardial infarction. 9. History of mitral prolapse. 10.History of pulmonary embolus. 11.History of sleep apnea. 12.History of nephrolithiasis. 13.History of degenerative joint disease. 14.History of MRSA. 15.History of cholecystectomy. RECOMMENDATION AND DISCUSSION: In this 52-year-old gentleman presented with multiple medical issues at this time I recommend continue the current medication, continue symptomatic treatment. Rule out myocardial infarction. Cardiology consultation. Possible stress test. Resume the home medications. See orders for details. Prognosis guarded because of multiple complex medical issues and further recommendations to follow. Discussed with the patient who understands and agrees. MMODL / IJN: [id number] / MTDD
[2017-12-12 04:00] LABS: Cholesterol 221 mg/dL (<200); HDL Cholesterol 37 mg/dL (40-60); LDL Cholesterol,Calculated 112 mg/dL (0-99); Triglycerides 360 mg/dL (<150)
[2017-12-12 04:23] LABS: Creatine Kinase 229 U/L (55-170)
[2017-12-12 04:36] LABS: Creatine Kinase MB 0.8 ng/mL (0.0-2.4); Troponin I <0.012 ng/mL (0.000-0.034)
[2017-12-12] MEDS: HYDROmorphone 0.5 MG/0.5 ML SYRINGE IVP PRN (05:46)
[2017-12-12] MEDS: NITROGLYCERIN OINT 1 INCH/GM PACKET TOPICAL SCH ×2 (05:48→11:32)
[2017-12-12] MEDS ORDERED: ASPIRIN 325 MG TAB PO SCH (09:00)
[2017-12-12] MEDS: HYDROcodone/APAP 7.5-325MG 1 EACH TAB PO PRN ×2 (11:30→20:58)
[2017-12-12] MEDS: ATORVASTATIN 20 MG TAB PO SCH (11:46)
[2017-12-12] MEDS: PANTOPRAZOLE 40 MG TABLET PO SCH (11:46)
[2017-12-12] MEDS: PREGABALIN 75 MG CAP PO SCH ×2 (11:46→20:58)
[2017-12-12] MEDS: LISINOPRIL 20 MG TAB PO SCH (11:46)
[2017-12-12] MEDS: HYDROCHLOROTHIAZIDE 25 MG TAB PO SCH (11:46)
[2017-12-12] MEDS: DILTIAZEM CD 240 MG CAP.ER.24H PO SCH (12:59)
--- NOTE | 2017-12-12 15:13 | P.CRDCN ---
History of Present Illness History of present illness: Mr. Morales is a pleasant 52-year-old female past medical history significant for asthma, gastroesophageal reflux disease, hypertension, dyslipidemia and sleep apnea. We have been asked to see him in consultation for chest pain. He states for the past 2 days he has felt a sharp stabbing sensation in his left precordial region. The pain is intermittent with no specific aggravating or alleviating factors. It is associated with shortness of breath, nausea, diaphoresis, palpitations and dizziness. Yesterday the pain started and persisted for 6-7 hours straight. At the time of my exam he is chest pain free. He recently underwent catheterization in May 2017 after having an abnormal Lexiscan. The catheterization revealed normal coronary arteries with no obstructive disease. EKG reveals sinus mechanism with no acute ST or T-wave abnormalities. Chest xray reveals no acute cardiopulmonary process. Laboratory data reviewed, hgb 13.8, plt 315, d-dimer 0.33, sodium 141, potassium 4.4, cardiac enzymes negative x3, LDL 112, HDL 37, triglycerides 360. Current cardiac medications atorvastatin 20 mg daily, cardizem 240 mg daily, hydrochlorothiazide 25 mg daily, lisinopril 40 mg daily. Most recent echocardiogram 05/2017 revealed preserved LV systolic function with EF 55-60%, mild TR and mild MR. Review of Systems At the time of my exam: CONSTITUTIONAL: Denies fever. Denies chills. EYES: Denies blurred vision. Denies vision changes. Denies eye pain. EARS, NOSE, MOUTH & THROAT: Denies headache. Denies sore throat. Denies ear pain. CARDIOVASCULAR: Denies chest pain. Denies shortness of breath. Denies orthopnea. Denies PND. Denies palpitations. RESPIRATORY: Denies cough. GASTROINTESTINAL: Denies abdominal pain. Denies diarrhea. Denies constipation. Denies nausea. Denies vomiting. MUSCULOSKELETAL: Denies myalgias. INTEGUMENTARY: Denies pruitis. Denies rash. NEUROLOGIC: Denies numbness. Denies tingling. Denies weakness. PSYCHIATRIC: Denies anxiety. Denies depression. ENDOCRINE: Denies fatigue. Denies weight change. Denies polydipsia. Denies polyurina. GENITOURINARY: Denies burning, hematuria or urgency with micturation. HEMATOLOGIC: Denies history of anemia. Denies bleeding. Past Medical History Past Medical History: Asthma, Chest Pain / Angina, GERD/Reflux, Hyperlipidemia, Hypertension, Myocardial Infarction (CA), Mitral Valve Prolapse (MVP), Pulmonary Embolus (PE), Sleep Apnea/CPAP/BIPAP Additional Past Medical History / Comment(s): Hx kidney stones, UTI with urosepsis, renal cysts, chronic neck and back pain, "herniated, bulging discs, lumbar spine nerve damage" pain sometimes radiates down bilateral legs, R lower leg fx as 13 yr old, concussion. Uses CPAP machine., hx of bleeding ulcer.hx c-diff pt stated approx 4 years ago 2013 Last Myocardial Infarction Date:: 2011 History of Any Multi-Drug Resistant Organisms: MRSA Date of last positivie culture/infection: 2015 MDRO Source:: left axilla Past Surgical History: Appendectomy, Back Surgery, Cholecystectomy, Heart Catheterization, Hernia Repair Additional Past Surgical History / Comment(s): 2007 back surgery with decompression fusion at [facility], 2011 cardiac cath, multiple ESWL/ ureteral stents/ double J catheters, L inquinal hernia repair, PICC line for ABX for urosepsis-since removed., Hx of c-diff. Past Anesthesia/Blood Transfusion Reactions: No Reported Reaction Smoking Status: Never smoker - Past Family History Father Family Medical History: Chest Pain / Angina Additional Family Medical History / Comment(s): "lung problems" Mother Family Medical History: Cancer, Chest Pain / Angina, Congestive Heart Failure ( CHF), Osteoarthritis (OA), Thyroid Disorder Medications and Allergies Home Medications Medication Instructions Recorded Confirmed Type Diltiazem Cd [Cardizem CD] 240 mg PO DAILY 01/19/14 12/11/17 History Hydrochlorothiazide [Hydrodiuril] 25 mg PO DAILY 08/01/17 12/11/17 History Lisinopril 40 mg PO DAILY 08/01/17 12/11/17 History Atorvastatin [Lipitor] 20 mg PO DAILY 08/13/17 12/11/17 History Tamsulosin HCl [Flomax] 0.4 mg PO DAILY PRN 08/13/17 12/11/17 History Hydrocodone/Acetaminophen [[place] 1 tab PO Q8H PRN 12/11/17 12/11/17 History 7.5-325] Methocarbamol [Robaxin] 500 mg PO TID PRN 12/11/17 12/11/17 History Omeprazole [PriLOSEC] 20 mg PO DAILY 12/11/17 12/11/17 History Pregabalin [Lyrica] 75 mg PO BID 12/11/17 12/11/17 History Allergies Allergy/AdvReac Type Severity Reaction Status Date / Time doxycycline Allergy Swelling Verified 12/11/17 14:27 ketorolac tromethamine Allergy Itching Verified 12/11/17 14:27 [From Toradol] morphine Allergy Rash/Hives Verified 12/11/17 14:27 metoclopramide HCl AdvReac Dystonic Verified 12/11/17 14:27 [From Reglan] Reaction prochlorperazine edisylate AdvReac Dystonic Verified 12/11/17 14:27 [From Compazine] Reaction prochlorperazine maleate AdvReac Dystonic Verified 12/11/17 14:27 [From Compazine] Reaction Physical Exam Vitals: Vital Signs Temp Pulse Pulse Resp BP BP Pulse Ox 12/12/17 11:15 97.6 F 102 H 18 173/99 99 12/12/17 07:38 97.5 F L 95 18 138/93 97 12/12/17 04:00 97.4 F L 96 18 141/64 96 12/12/17 00:00 97.4 F L 104 H 18 149/98 97 12/11/17 20:00 99.1 F 112 H 18 127/78 97 12/11/17 17:15 97 F L 112 H 18 142/102 94 L 12/11/17 16:26 98.1 F 108 H 20 126/66 99 12/11/17 15:03 106 H 18 154/94 97 Intake and Output 12/11/17 12/12/17 12/12/17 22:59 06:59 14:59 Intake Total 222 240 Balance 222 240 Intake: Oral 222 240 Other: Weight 135.4 kg Blood pressure 138/93 heart rate 95 afebrile maintaining oxygen saturation on nasal cannula 2 L. GENERAL: This is a 52-year-old male in no apparent distress at the time of my examination. HEENT: Head is atraumatic, normocephalic. Pupils are equal, round. Sclerae anicteric. Conjunctivae are clear. Mucous membranes of the mouth are moist. Neck is supple. There is no jugular venous distention. No carotid bruit is heard. LUNGS: Clear to auscultation no wheezes, rales or rhonchi. No chest wall tenderness is noted on palpation or with deep breathing. HEART: Regular rate and rhythm without murmurs, rubs or gallops. S1 and S2 heard. ABDOMEN: Soft, nontender. Bowel sounds are heard. No organomegaly noted. EXTREMITIES: No evidence of peripheral edema and no calf tenderness noted. VASCULAR: Radial and dorsalis pedis pulses palpated, no evidence of clubbing. NEUROLOGIC: Patient is awake, alert and oriented x3. Results 12/11/17 14:30 12/11/17 14:30 Cardiac Enzymes 12/11/17 12/11/17 12/11/17 Range/Units 14:30 14:30 20:48 AST 28 (17-59) U/L CK-MB (CK-2) 1.2 0.9 (0.0-2.4) ng/mL Troponin I <0.012 <0.012 (0.000-0.034) ng/mL 12/12/17 Range/Units 03:06 AST (17-59) U/L CK-MB (CK-2) 0.8 (0.0-2.4) ng/mL Troponin I <0.012 (0.000-0.034) ng/mL Coagulation 12/11/17 Range/Units 16:20 PT 9.5 (9.0-12.0) sec APTT 22.0 (22.0-30.0) sec Lipids 12/12/17 Range/Units 03:06 Triglycerides 360 H (<150) mg/dL Cholesterol 221 H (<200) mg/dL HDL Cholesterol 37 L (40-60) mg/dL Comprehensive Metabolic Panel 12/11/17 Range/Units 14:30 Sodium 141 (137-145) mmol/L Potassium 4.4 (3.5-5.1) mmol/L Chloride 105 (98-107) mmol/L Carbon Dioxide 20 L (22-30) mmol/L BUN 14 (9-20) mg/dL Creatinine 0.70 (0.66-1.25) mg/dL Glucose 120 H (74-99) mg/dL Calcium 9.9 (8.4-10.2) mg/dL AST 28 (17-59) U/L ALT 46 (21-72) U/L Alkaline Phosphatase 76 (38-126) U/L Total Protein 7.4 (6.3-8.2) g/dL Albumin 4.5 (3.5-5.0) g/dL Current Medications Generic Name Dose Route Start Last Admin Trade Name Freq PRN Reason Stop Dose Admin Hydrocodone Bitart/Acetaminophen 1 each 12/11/17 21:05 12/12/17 11:30 [place] 7.5-325 PO 1 each Q8H PRN Administration Pain Aspirin 325 mg 12/12/17 09:00 12/12/17 11:46 Aspirin PO 325 mg DAILY JOEY Administration Atorvastatin Calcium 20 mg 12/12/17 09:00 12/12/17 11:46 Lipitor PO 20 mg DAILY JOEY Administration Diltiazem HCl 240 mg 12/12/17 09:00 12/12/17 12:59 Cardizem Cd PO 240 mg DAILY JOEY Administration Hydrochlorothiazide 25 mg 12/12/17 09:00 12/12/17 11:46 Hydrodiuril PO 25 mg DAILY JOEY Administration Lisinopril 40 mg 12/12/17 09:00 12/12/17 11:46 Zestril PO 40 mg DAILY JOEY Administration Methocarbamol 500 mg 12/11/17 17:21 12/11/17 22:39 Robaxin PO 500 mg TID PRN Administration Muscle Spasm Nitroglycerin 1 inch 12/11/17 18:00 12/12/17 11:32 Nitro-Bid Oint TOPICAL Not Given Q6HR [facility] Nitroglycerin 0.4 mg 12/11/17 15:22 12/11/17 22:48 Nitrostat SUBLINGUAL 0.4 mg Q5M PRN Administration Chest Pain Pantoprazole Sodium 40 mg 12/12/17 09:00 12/12/17 11:46 Protonix PO 40 mg DAILY [facility] Administration Pregabalin 75 mg 12/11/17 21:00 12/12/17 11:46 Lyrica PO 75 mg BID JOEY Administration Tamsulosin HCl 0.4 mg 12/11/17 17:21 Flomax PO DAILY [facility]N [facility] Intake and Output 12/11/17 12/12/17 12/12/17 22:59 06:59 14:59 Intake Total 222 240 Balance 222 240 Intake: Oral 222 240 Other: Weight 135.4 kg 12/11/17 14:30 12/11/17 14:30 Assessment and Plan Assessment: ASSESSMENT 1. Chest pain, atypical. An acute coronary event has been ruled out with no EKG evidence of ischemia and negative cardiac enzymes. 2. Hypertension, uncontrolled 3. Dyslipidemia 4. Gastroesophageal reflux disease 5. Obesity PLAN An acute coronary event has been ruled out with no EKG evidence of ischemia and negative cardiac enzymes. He has had 2 normal cardiac catheterizations since 2016, his pain is atypical and unlikely to be of cardiac origin. Discussed with him the thought of having an outpatient evaluation with GI services. Stable from a cardiac perspective, follow up with Dr. Arora in 2-3 weeks. Thank you kindly for this consultation. Nurse Practitioner note has been reviewed, I agree with a documented findings and plan of care. Patient was seen and examined.
[2017-12-12] MEDS: METOPROLOL TARTRATE 25 MG TAB PO SCH ×2 (15:21→22:48)
[2017-12-13] MEDS: HYDROcodone/APAP 7.5-325MG 1 EACH TAB PO PRN ×2 (04:48→12:01)
[2017-12-13] MEDS ORDERED: ASPIRIN 81 MG PO SCH (09:00)
[2017-12-13 09:18] VITALS: BP 137/76; PULSE 88; RESP 16; TEMP 97
[2017-12-13] MEDS: ATORVASTATIN 20 MG TAB PO SCH (09:20)
[2017-12-13] MEDS: PANTOPRAZOLE 40 MG TABLET PO SCH (09:20)
[2017-12-13] MEDS: HYDROCHLOROTHIAZIDE 25 MG TAB PO SCH (09:20)
[2017-12-13] MEDS: DILTIAZEM CD 240 MG CAP.ER.24H PO SCH (09:20)
[2017-12-13] MEDS: LISINOPRIL 20 MG TAB PO SCH (09:20)
[2017-12-13] MEDS: METOPROLOL TARTRATE 25 MG TAB PO SCH (09:20)
[2017-12-13] MEDS: PREGABALIN 75 MG CAP PO SCH (09:22)
--- NOTE | 2017-12-13 20:00 | P.PN ---
Subjective Progress Note Date: 12/12/17 Principal diagnosis: Chest pain Mr. Morales is a pleasant 52-year-old female past medical history significant for asthma, gastroesophageal reflux disease, hypertension, dyslipidemia and sleep apnea came to ER with complaints of chest pain.. He states for the past 2 days he has felt a sharp stabbing sensation in his left precordial region. The pain is intermittent with no specific aggravating or alleviating factors. It is associated with shortness of breath, nausea, diaphoresis, palpitations and dizziness. Yesterday the pain started and persisted for 6-7 hours straight. He recently underwent catheterization in May 2017 after having an abnormal Lexiscan. The catheterization revealed normal coronary arteries with no obstructive disease. EKG reveals sinus mechanism with no acute ST or T-wave abnormalities. Chest xray reveals no acute cardiopulmonary process. Laboratory data reviewed, hgb 13.8, plt 315, d-dimer 0.33, sodium 141, potassium 4.4, cardiac enzymes negative x3, LDL 112, HDL 37, triglycerides 360. Current cardiac medications atorvastatin 20 mg daily, cardizem 240 mg daily, hydrochlorothiazide 25 mg daily, lisinopril 40 mg daily. Most recent echocardiogram 05/2017 revealed preserved LV systolic function with EF 55-60%, mild TR and mild MR. 12/12/2017 Patient is still complaining of midsternal chest pain which is constant and is requesting pain medications on the clock. No nausea vomiting or abdominal pain. Patient also says that has difficulty swallowing sometimes and has seen gastroenterology previously. No fever no chills. No cough is from production. Patient was seen by cardiology and recommended no further workup at this time. Otherwise patient states that history having chest pain and not feeling very well. D-dimer is negative as well. Cardiac workup was negative recently. Continued on telemetry monitoring. All other review of systems negative except the above Current medications reviewed Objective - Vital Signs Vital signs: Vital Signs Temp 97.7 F 12/12/17 20:00 Pulse 72 12/12/17 20:00 Resp 18 12/12/17 20:00 BP 109/66 12/12/17 20:00 Pulse Ox 97 12/12/17 20:00 Intake & Output 12/12/17 12/12/17 12/13/17 06:59 18:59 06:59 Intake Total 840 Balance 840 Weight 135.4 kg 135.4 kg Intake: Oral 840 - Exam PHYSICAL EXAMINATION: Patient is lying in the bed comfortably, no acute distress, awake alert and oriented.. HEENT: Normocephalic. Neck is supple. Pupils reactive. Nostrils clear. Oral cavity is moist. Ears reveal no drainage. Neck reveals no JVD, carotid bruits, or thyromegaly. CHEST EXAMINATION: Trachea is central. Symmetrical expansion. Lung turner clear to auscultation and percussion. CARDIAC: Normal S1, S2 with no gallops. No murmurs ABDOMEN: Soft. Bowel sounds normal. No organomegaly. No abdominal bruits. Extremities: reveal no edema. No clubbing or cyanosis Neurologically awake, alert, oriented x3 with well-coordinated movements. No focal deficits noted Skin: No rash or skin lesions. Psychiatric: Cooperative. Nonsuicidal Musculoskeletal: No joint swelling or deformity. Normal range of motion. - Labs CBC & Chem 7: 12/11/17 14:30 12/11/17 14:30 Labs: Abnormal Lab Results - Last 24 Hours (Table) 12/12/17 12/12/17 Range/Units 03:06 03:06 Total Creatine Kinase 229 H (55-170) U/L Triglycerides 360 H (<150) mg/dL Cholesterol 221 H (<200) mg/dL LDL Cholesterol, Calc 112 H (0-99) mg/dL HDL Cholesterol 37 L (40-60) mg/dL Assessment and Plan Assessment: 1. Chest pain, atypical. An acute coronary event has been ruled out with no EKG evidence of ischemia and negative cardiac enzymes. 2. Hypertension, uncontrolled 3. Dyslipidemia 4. Gastroesophageal reflux disease 5. Morbid Obesity PLAN An acute coronary event has been ruled out with no EKG evidence of ischemia and negative cardiac enzymes. He has had 2 normal cardiac catheterizations since 2016, his pain is atypical and unlikely to be of cardiac origin. Discussed with him the thought of having an outpatient evaluation with GI services. Patient was seen by cardiology and recommended follow-up as outpatient with Dr. Arora. No further workup needed from cardiology standpoint. Discussed with patient in detail. Continued on pain management with Johnston 7.5. Patient claims that he takes Johnston's 10 at home but his medication showed he has been taking 7.5. Time with Patient: Greater than 30
--- NOTE | 2017-12-13 20:02 | P.DS ---
Providers Date of admission: 12/11/17 15:22 Expected date of discharge: 12/13/17 Attending physician: Redi Deal Consults: 12/11/17 15:22 Consult Physician Urgent Consulting Provider: [facility] Consult Reason/Comments: Unstable angina Do you want consulting provider notified?: Yes Primary care physician: Trav Muniz [facility] Course: Discharge diagnosis 1. Chest pain, atypical. An acute coronary event has been ruled out with no EKG evidence of ischemia and negative cardiac enzymes. 2. Hypertension, uncontrolled 3. Dyslipidemia 4. Gastroesophageal reflux disease 5. Morbid Obesity Hospital course Mr. Morales is a pleasant 52-year-old female past medical history significant for asthma, gastroesophageal reflux disease, hypertension, dyslipidemia and sleep apnea came to ER with complaints of chest pain.. He states for the past 2 days he has felt a sharp stabbing sensation in his left precordial region. The pain is intermittent with no specific aggravating or alleviating factors. It is associated with shortness of breath, nausea, diaphoresis, palpitations and dizziness. Yesterday the pain started and persisted for 6-7 hours straight. He recently underwent catheterization in May 2017 after having an abnormal Lexiscan. The catheterization revealed normal coronary arteries with no obstructive disease. EKG reveals sinus mechanism with no acute ST or T-wave abnormalities. Chest xray reveals no acute cardiopulmonary process. Laboratory data reviewed, hgb 13.8, plt 315, d-dimer 0.33, sodium 141, potassium 4.4, cardiac enzymes negative x3, LDL 112, HDL 37, triglycerides 360. Current cardiac medications atorvastatin 20 mg daily, cardizem 240 mg daily, hydrochlorothiazide 25 mg daily, lisinopril 40 mg daily. Most recent echocardiogram 05/2017 revealed preserved LV systolic function with EF 55-60%, mild TR and mild MR. 12/12/2017 Patient is still complaining of midsternal chest pain which is constant and is requesting pain medications on the clock. No nausea vomiting or abdominal pain. Patient also says that has difficulty swallowing sometimes and has seen gastroenterology previously. No fever no chills. No cough is from production. Patient was seen by cardiology and recommended no further workup at this time. Otherwise patient states that history having chest pain and not feeling very well. D-dimer is negative as well. Cardiac workup was negative recently. Continued on telemetry monitoring. 12/13/2017 Patient says that his chest pain is better today. No other issues at this time. Stable to be discharged home. Recommended to follow with GI clinic and as well as cardiology in 2 weeks. Patient is being discharged home today. Patient is requesting his pain medications to be given now and is also wants transportation to his home. acute coronary event has been ruled out with no EKG evidence of ischemia and negative cardiac enzymes. He has had 2 normal cardiac catheterizations since 2016, his pain is atypical and unlikely to be of cardiac origin. Discussed with him the thought of having an outpatient evaluation with GI services. Patient was seen by cardiology and recommended follow-up as outpatient with Dr. Arora. No further workup needed from cardiology standpoint. Discussed with patient in detail. Continued on pain management with [place] 7.5. Discharge physical examination was done and vitals reviewed. Vital Signs - 24 hr 12/13/17 12/13/17 12/13/17 00:00 04:00 08:00 Temperature 98.0 F 97.4 F L 97.0 F L Pulse Rate [ 107 H 78 88 Pulse Oximetery ] Respiratory 18 16 16 Rate Blood Pressure 128/66 139/79 137/76 [Right Arm] O2 Sat by Pulse 91 L 97 98 Oximetry Patient Condition at Discharge: Stable Plan - Discharge Summary Discharge Rx Participant: No New Discharge Prescriptions: New Metoprolol Tartrate [Lopressor] 25 mg PO BID #30 tab Continue Diltiazem Cd [Cardizem CD] 240 mg PO DAILY Lisinopril 40 mg PO DAILY Atorvastatin [Lipitor] 20 mg PO DAILY Tamsulosin HCl [Flomax] 0.4 mg PO DAILY PRN PRN Reason: KIDNEY STONES Methocarbamol [Robaxin] 500 mg PO TID PRN PRN Reason: Muscle Spasm Pregabalin [Lyrica] 75 mg PO BID Omeprazole [PriLOSEC] 20 mg PO DAILY Hydrocodone/Acetaminophen [[place] 7.5-325] 1 tab PO Q8H PRN PRN Reason: Pain No Action Hydrochlorothiazide [Hydrodiuril] 25 mg PO DAILY Discharge Medication List Diltiazem Cd [Cardizem CD] 240 mg PO DAILY 01/19/14 [History] Hydrochlorothiazide [Hydrodiuril] 25 mg PO DAILY 08/01/17 [History] Lisinopril 40 mg PO DAILY 08/01/17 [History] Atorvastatin [Lipitor] 20 mg PO DAILY 08/13/17 [History] Tamsulosin HCl [Flomax] 0.4 mg PO DAILY PRN 08/13/17 [History] Hydrocodone/Acetaminophen [[place] 7.5-325] 1 tab PO Q8H PRN 12/11/17 [History] Methocarbamol [Robaxin] 500 mg PO TID PRN 12/11/17 [History] Omeprazole [PriLOSEC] 20 mg PO DAILY 12/11/17 [History] Pregabalin [Lyrica] 75 mg PO BID 12/11/17 [History] Metoprolol Tartrate [Lopressor] 25 mg PO BID #30 tab 12/13/17 [Rx] Follow up Appointment(s)/Referral(s): Miguel Arora MD [STAFF PHYSICIAN] - 01/04/18 3:45 pm Trav Muinz MD [Primary Care Provider] - 3 Days (Patient requesting to make follow up appointment for transportation issues.) Patient Instructions/Handouts: Chest Pain (DC) Discharge Disposition: HOME SELF-CARE
== END 2017-12-13 13:39 | disposition home or self-care (01) ==
LOC: EC 13:45 → 6SEL 15:22
PROVIDERS: ADMIT Hospitalist; ATTEND Hospitalist
DX: R07.89 Other chest pain (principal); R61 Generalized hyperhidrosis; R42 Dizziness and giddiness; R11.0 Nausea; R00.2 Palpitations; R00.0 Tachycardia, unspecified; R74.8 Abnormal levels of other serum enzymes; J45.909 Unspecified asthma, uncomplicated; K21.9 Gastro-esophageal reflux disease without esophagitis; I10 Essential (primary) hypertension; E78.5 Hyperlipidemia, unspecified; I25.2 Old myocardial infarction; I34.1 Nonrheumatic mitral (valve) prolapse; G47.30 Sleep apnea, unspecified; G89.29 Other chronic pain; M54.9 Dorsalgia, unspecified; M54.2 Cervicalgia; M19.90 Unspecified osteoarthritis, unspecified site; E66.01 Morbid (severe) obesity due to excess calories; Z68.41 Body mass index [BMI] 40.0-44.9, adult; Z86.711 Personal history of pulmonary embolism; Z86.14 Personal history of Methicillin resistant Staphylococcus aureus infection; Z87.440 Personal history of urinary (tract) infections; Z99.89 Dependence on other enabling machines and devices; Z87.442 Personal history of urinary calculi; Z90.49 Acquired absence of other specified parts of digestive tract; Z98.61 Coronary angioplasty status; Z98.1 Arthrodesis status; Z79.899 Other long term (current) drug therapy; Z88.1 Allergy status to other antibiotic agents; Z88.5 Allergy status to narcotic agent; Z88.8 Allergy status to other drugs, medicaments and biological substances; Z82.49 Family history of ischemic heart disease and other diseases of the circulatory system; Z80.9 Family history of malignant neoplasm, unspecified; Z82.61 Family history of arthritis; Z83.49 Family history of other endocrine, nutritional and metabolic diseases
CPT/HCPCS: 99285 ×2; 96376 ×2; 96374; 36415; 93005; 85379; 80061; 80053; 82550 ×2; 82553 ×2; 83735; 84484 ×2; 85025; 85610; 85730; 71046; G0378 ×3; J1170 ×2

== ENCOUNTER 2018-03-25 10:11 | Observation (INO) | payer OTHER ==
[2018-03-25] MEDS ORDERED: SODIUM CHLORIDE 0.9% 1,000 ML IV STA (10:38)
[2018-03-25] MEDS ORDERED: MORPHINE SULFATE 4 MG/ML SYRINGE IV STA (10:38)
[2018-03-25 11:09] LABS: Basophils % (A) 0 %; Eosinophils # (A) 0.2 k/uL (0-0.7); Eosinophils % (A) 3 %; HCT 43.8 % (39.0-53.0); HGB 14.2 gm/dL (13.0-17.5); Lymphocytes # (A) 1.4 k/uL (1.0-4.8); Lymphocytes % (A) 21 %; MCH 28.2 pg (25.0-35.0); MCHC 32.5 g/dL (31.0-37.0); MCV 86.8 fL (80.0-100.0); Mean Platelet Volume 6.6; Monocytes # (A) 0.4 k/uL (0-1.0); Monocytes % (A) 6 %; Neutrophils # (A) 4.6 k/uL (1.3-7.7); Neutrophils % (A) 67 %; Platelet Count 356 k/uL (150-450); RBC 5.05 m/uL (4.30-5.90); RDW 14.2 % (11.5-15.5); WBC 6.8 k/uL (3.8-10.6)
[2018-03-25 11:22] LABS: ALT 36 U/L (21-72); AST 31 U/L (17-59); Albumin 4.6 g/dL (3.5-5.0); Alkaline Phosphatase 88 U/L (38-126); Anion Gap 10 mmol/L; Blood Urea Nitrogen 13 mg/dL (9-20); Calcium 10.3 mg/dL (8.4-10.2); Carbon Dioxide 22 mmol/L (22-30); Chloride 107 mmol/L (98-107); Glucose 138 mg/dL (74-99); Potassium 4.8 mmol/L (3.5-5.1); Sodium 139 mmol/L (137-145); Total Bilirubin 0.6 mg/dL (0.2-1.3); Total Protein 7.9 g/dL (6.3-8.2)
--- NOTE | 2018-03-25 11:49 | CT ---
EXAMINATION TYPE: CT lumbar spine wo con DATE OF EXAM: 03/25/2018 11:39 AM COMPARISON: Previous study dated 08/05/2016. HISTORY: Low back pain and right leg numbness CT DLP: 2507.4 mGycm Automated exposure control for dose reduction was used. Unenhanced CT of the lumbar spine was performed. Bone and soft tissue window settings are submitted as well as coronal and sagittal reconstructions. FINDINGS: Visualized portions of the lungs are clear. Once again a low attenuating lesion is noted in the anterior aspect of the right upper pole of the right kidney. This likely represents a small cyst . Paraspinal soft tissues are otherwise unremarkable. There is been a previous interpedicular fusion L4, L5 and S1. Vertebral body height and alignment rem ains normal. No fractures are identified. At T12-L1, no definite abnormality is seen. L1-L2: There is a mild, diffuse disc displacement. Intervertebral foramina are well maintained. There are mild hypertrophic changes within the facets. L2-L3: There is mild hypertrophic spondylosis anteriorly. Intervertebral foramina are well maintained . There is a diffuse disc displacement. There are mild hypertrophic changes in the facets. L3-L4: Intervertebral foramina appear well maintained. There is a diffuse disc displacement. There ar e hypertrophic changes in the facets. There is mild trefoiling of the thecal sac. L4-L5: This level is fused. There is bilateral intervertebral foraminal narrowing, worse on the right than the left. There is hypertrophic changes within the facets. There is no significant compressive discopathy. There has been a laminectomy. L5-S1: This level is fused. There is mild, bilateral intervertebral foraminal narrowing. There is no significant compressive discopathy. There is a laminectomy present. IMPRESSION: 1. POSTSURGICAL CHANGE. 2. NO SIGNIFICANT COMPRESSIVE DISCOPATHY. 3. MULTILEVEL INTERVERTEBRAL FORAMINAL NARROWING. 4. PROBABLE RIGHT RENAL CYST. THIS CAN BE CONFIRMED WITH ULTRASOUND.
[2018-03-25 12:11] LABS: Appearance,Urine Clear (Clear); Bilirubin,Urine Negative (Negative); Blood,Urine Negative (Negative); Color,Urine Yellow; Glucose,Urine (UA) Negative (Negative); Ketones,Urine Negative (Negative); Leukocyte Esterase,Urine Negative (Negative); Nitrite,Urine Negative (Negative); PH, Urine 5.5 (5.0-8.0); Protein,Urine Negative (Negative); Specific Gravity,Urine 1.018 (1.001-1.035); Urobilinogen,Urine <2.0 mg/dL (<2.0)
[2018-03-25] MEDS ORDERED: ORPHENADRINE 30 MG/ML 2 ML VIAL IVP STA (13:05)
[2018-03-25] MEDS ORDERED: MORPHINE SULFATE 4 MG/ML SYRINGE IVP STA (13:05)
--- NOTE | 2018-03-25 13:07 | ED ---
Back Pain HPI - General Chief Complaint: Back Pain/Injury Stated Complaint: Back pain Time Seen by Provider: 03/25/18 10:21 Source: patient, RN notes reviewed, old records reviewed Limitations: no limitations - History of Present Illness Initial Comments: Patient is a 52-year-old male with history of chronic back pain. He reports today when he stood up after having a bowel movement he felt a sharp pinching his back and has sudden loss of control his bowel movement. He reports that he had diarrhea his pants. He reports that he has had this happen in the past. He is seen by a orthopedic and is scheduled to have a nerve stimulator placed. His neurologist and back specialist is and [facility]. Patient states that he has increased numbness and tingling into the right leg but he does have range of motion. He reports that over the past few months he has been dealing with issues of this chronic back pain and muscle spasms. Patient has had no fevers or chills, any abdominal pain. Patient heating states that he has no loss of urine control. He denies saddle anesthesia. - Related Data Home Medications Medication Instructions Recorded Confirmed Diltiazem Cd [Cardizem CD] 240 mg PO DAILY 01/19/14 03/25/18 Lisinopril 40 mg PO DAILY 08/01/17 03/25/18 Atorvastatin [Lipitor] 20 mg PO DAILY 08/13/17 03/25/18 Omeprazole [PriLOSEC] 20 mg PO BID 12/11/17 03/25/18 HYDROcodone/APAP 10-325MG [[place] 1 tab PO Q6HR PRN 03/25/18 03/25/18 10-325] Methocarbamol [Robaxin-750] 750 mg PO TID PRN 03/25/18 03/25/18 Allergies Allergy/AdvReac Type Severity Reaction Status Date / Time doxycycline Allergy Swelling Verified 03/25/18 11:22 ketorolac tromethamine Allergy Itching Verified 03/25/18 11:22 [From Toradol] morphine Allergy Rash/Hives Verified 03/25/18 11:22 metoclopramide HCl AdvReac Dystonic Verified 03/25/18 11:22 [From Reglan] Reaction prochlorperazine edisylate AdvReac Dystonic Verified 03/25/18 11:22 [From Compazine] Reaction prochlorperazine maleate AdvReac Dystonic Verified 03/25/18 11:22 [From Compazine] Reaction Review of Systems ROS Statement: Those systems with pertinent positive or pertinent negative responses have been documented in the HPI. ROS Other: All systems not noted in ROS Statement are negative. Past Medical History Past Medical History: Asthma, Chest Pain / Angina, GERD/Reflux, Hyperlipidemia, Hypertension, Myocardial Infarction ([place]), Mitral Valve Prolapse (MVP), Pulmonary Embolus (PE), Sleep Apnea/CPAP/BIPAP Additional Past Medical History / Comment(s): Hx kidney stones, UTI with urosepsis, renal cysts, chronic neck and back pain, "herniated, bulging discs, lumbar spine nerve damage" pain sometimes radiates down bilateral legs, R lower leg fx as 13 yr old, concussion. Uses CPAP machine., hx of bleeding ulcer.hx c-diff pt stated approx 4 years ago 2013 Last Myocardial Infarction Date:: 2011 History of Any Multi-Drug Resistant Organisms: MRSA Date of last positivie culture/infection: 2015 MDRO Source:: left axilla Past Surgical History: Appendectomy, Back Surgery, Cholecystectomy, Heart Catheterization, Hernia Repair Additional Past Surgical History / Comment(s): 2007 back surgery with decompression fusion at [facility], 2011 cardiac cath, multiple ESWL/ ureteral stents/ double J catheters, L inquinal hernia repair, PICC line for ABX for urosepsis-since removed., Hx of c-diff. Past Anesthesia/Blood Transfusion Reactions: No Reported Reaction Past Psychological History: No Psychological Hx Reported Smoking Status: Never smoker Past Alcohol Use History: None Reported Past Drug Use History: None Reported - Past Family History Father Family Medical History: Chest Pain / Angina Additional Family Medical History / Comment(s): "lung problems" Mother Family Medical History: Cancer, Chest Pain / Angina, Congestive Heart Failure ( CHF), Osteoarthritis (OA), Thyroid Disorder General Exam - General Exam Comments Initial Comments: Patient's 52-year-old male presents emergency room today with chief complaint acute laceration chronic back pain. It appears in mild to moderate discomfort. Limitations: no limitations General appearance: alert, in no apparent distress Head exam: Present: atraumatic, normocephalic, normal inspection Eye exam: Present: normal appearance, PERRL, EOMI. Absent: scleral icterus, conjunctival injection, periorbital swelling ENT exam: Present: normal exam, mucous membranes moist Neck exam: Present: normal inspection. Absent: tenderness, meningismus, lymphadenopathy Respiratory exam: Present: normal lung sounds bilaterally. Absent: respiratory distress, wheezes, rales, rhonchi, stridor Cardiovascular Exam: Present: regular rate, normal rhythm, normal heart sounds. Absent: systolic murmur, diastolic murmur, rubs, gallop, clicks GI/Abdominal exam: Present: soft, normal bowel sounds. Absent: distended, tenderness, guarding, rebound, rigid Rectal exam: Present: normal inspection, decreased rectal tone (Patient has somewhat decreased rectal tone. Is still some tone noted on digital rectal exam. Patient had evidence of dried stool within his pants.) Extremities exam: Present: normal inspection, full ROM, normal capillary refill , other (Patient has normal sensation to the lower extremity. Can feel me touch. He has range of motion of the toes and leg. Strength is a 4 out of 5.) . Absent: tenderness, pedal edema, joint swelling, calf tenderness Back exam: Present: normal inspection, tenderness (Patient is lumbar spinal tenderness.) Neurological exam: Present: alert, oriented X3, CN II-XII intact Psychiatric exam: Present: normal affect, normal mood Skin exam: Present: warm, dry, intact, normal color. Absent: rash Course Vital Signs 03/25/18 03/25/18 03/25/18 10:14 11:08 13:31 Temperature 98.4 F 98.0 F Pulse Rate 129 H 111 H 120 H Respiratory 18 20 18 Rate Blood Pressure 167/101 211/109 168/95 O2 Sat by Pulse 97 96 96 Oximetry Medical Decision Making - Medical Decision Making 52-year-old male concerns for worsening chief complaint of acute onset of lower back pain after having a bowel movement stating. He reports that afterwards he had a loss of bowel intraoral and had an episode of Stool incontinence over his pants. He states that pain is worse with certain movements. Does have history of chronic pain. No recent falls or trauma. At this time he does have somewhat diminished rectal tone but it is still palpable on digital rectal exam. Patient has normal sensation to touch over the lower right and left extremity. Does have some mild weakness noted to the right lower extremity. I did discuss the case with on-call spinal physician Dr. Wynn. He recommended starting the Patient on IV steroids and will evaluate the Patient in the morning. Patient has had a similar symptoms in the past. He has no significant saddle anesthesias at this time. Discussed the above Patient for IV pain medication and steroids. Patient is agreeable to this plan. He is able to urinate on his own without difficulty. - Lab Data Result diagrams: 03/25/18 10:58 03/25/18 10:58 Lab Results 03/25/18 03/25/18 03/25/18 Range/Units 10:58 10:58 11:57 WBC 6.8 (3.8-10.6) k/uL RBC 5.05 (4.30-5.90) m/uL Hgb 14.2 (13.0-17.5) gm/dL Hct 43.8 (39.0-53.0) % MCV 86.8 (80.0-100.0) fL MCH 28.2 (25.0-35.0) pg MCHC 32.5 (31.0-37.0) g/dL RDW 14.2 (11.5-15.5) % Plt Count 356 (150-450) k/uL Neutrophils % 67 % Lymphocytes % 21 % Monocytes % 6 % Eosinophils % 3 % Basophils % 0 % Neutrophils # 4.6 (1.3-7.7) k/uL Lymphocytes # 1.4 (1.0-4.8) k/uL Monocytes # 0.4 (0-1.0) k/uL Eosinophils # 0.2 (0-0.7) k/uL Basophils # 0.0 (0-0.2) k/uL Sodium 139 (137-145) mmol/L Potassium 4.8 (3.5-5.1) mmol/L Chloride 107 (98-107) mmol/L Carbon Dioxide 22 (22-30) mmol/L Anion Gap 10 mmol/L BUN 13 (9-20) mg/dL Creatinine 0.64 L (0.66-1.25) mg/dL Est GFR (CKD-EPI)AfAm >90 (>60 ml/min/1.73 sqM) Est GFR (CKD-EPI)NonAf >90 (>60 ml/min/1.73 sqM) Glucose 138 H (74-99) mg/dL Calcium 10.3 H (8.4-10.2) mg/dL Total Bilirubin 0.6 (0.2-1.3) mg/dL AST 31 (17-59) U/L ALT 36 (21-72) U/L Alkaline Phosphatase 88 (38-126) U/L Total Protein 7.9 (6.3-8.2) g/dL Albumin 4.6 (3.5-5.0) g/dL Urine Color Yellow Urine Appearance Clear (Clear) Urine pH 5.5 (5.0-8.0) Ur Specific Sims 1.018 (1.001-1.035) Urine Protein Negative (Negative) Urine Glucose (UA) Negative (Negative) Urine Ketones Negative (Negative) Urine Blood Negative (Negative) Urine Nitrite Negative (Negative) Urine Bilirubin Negative (Negative) Urine Urobilinogen <2.0 (<2.0) mg/dL Ur Leukocyte Esterase Negative (Negative) - Radiology Data Radiology results: report reviewed CT shows postsurgical changes. No significant depression discopathy. Multilevel lunger for tubal foraminal narrowing. Probable right renal cyst. Confirmed with ultrasound. Disposition Clinical Impression: Lower back pain, Bowel incontinence Disposition: ADMITTED IP TO THIS [facility] Condition: Stable Is patient prescribed a controlled substance at d/c from ED?: No Referrals: Trav Muniz MD [Primary Care Provider] - 1-2 days Time of Disposition: 14:07
[2018-03-25] MEDS ORDERED: methylPREDNISolone SOD SUCCI 125 MG/2 ML VIAL IV STA (13:51)
[2018-03-25] MEDS ORDERED: LORazepam 2 MG/ML INJ IV PRN (14:07)
[2018-03-25] MEDS ORDERED: HYDROmorphone 1 MG/ML 1 ML SYRINGE IVP PRN (14:07)
[2018-03-25] MEDS ORDERED: ONDANSETRON 4 MG/2 ML VIAL IVP PRN (14:07)
[2018-03-25] MEDS ORDERED: IBUPROFEN 400 MG TAB PO PRN (14:07)
[2018-03-25] MEDS ORDERED: ACETAMINOPHEN TAB 325 MG TAB PO PRN (14:07)
[2018-03-25] MEDS ORDERED: KETOROLAC 30 MG/ML 1 ML VIAL IVP PRN (14:07)
[2018-03-25] MEDS ORDERED: NALOXONE 0.4 MG/ML 1 ML VIAL IV PRN (14:07)
[2018-03-25] MEDS ORDERED: METHOCARBAMOL 750 MG TAB PO PRN (14:10)
[2018-03-25] MEDS: LISINOPRIL 20 MG TAB PO SCH (15:20)
[2018-03-25] MEDS: DILTIAZEM CD 240 MG CAP.ER.24H PO SCH (15:20)
[2018-03-25] MEDS: PANTOPRAZOLE 40 MG TABLET PO SCH (15:20)
[2018-03-25] MEDS: SODIUM CHLORIDE 0.9% 1,000 ML IV SCH (15:22)
[2018-03-25] MEDS: MORPHINE SULFATE 4 MG/ML SYRINGE IV PRN ×2 (17:31→21:33)
[2018-03-25] MEDS: HYDROcodone/APAP 10-325MG 1 EACH TAB PO PRN (19:41)
[2018-03-25] MEDS ORDERED: TEMAZEPAM 15 MG CAP PO PRN (20:24)
[2018-03-25] MEDS: methylPREDNISolone SOD SUCCI 125 MG/2 ML VIAL IV SCH (21:11)
[2018-03-25] MEDS: ENOXAPARIN 40 MG/0.4 ML SYRINGE SQ SCH (21:11)
[2018-03-25 21:26] LABS: Glucose,Whole Blood 228 mg/dL (75-99)
[2018-03-25] MEDS: INSULIN ASPART 100 UNIT/ML 1 ML 10 ML VIAL SQ SCH (21:32)
--- NOTE | 2018-03-25 23:50 | CONS ---
CONSULTATION REASON FOR CONSULTATION: Advice regarding hypertension and hyperlipidemia requested by Orthopedic Surgery. HISTORY OF PRESENT ILLNESS: This 52-year-old gentleman with past medical history of asthma, GERD, hypertension, hyperlipidemia, pulmonary fibrosis, pulmonary embolism being followed by Dr. Bowens in the outpatient setting was complaining of back pain. The patient had previous back pain and surgery apparently in 2007. Last night the patient had severe back pain radiating into the right leg. Associated with incontinence. Patient came to [facility] and was admitted for further evaluation treatment. Difficulty walking also. CT scan of the lumbar spine showed postsurgical changes. No significant compressive discopathy but multilevel intervertebral foraminal narrowing and probable right renal cyst also. The patient admitted for further evaluation. There is no history of chest pain. No history of palpitations. No history of headache, loss of consciousness or seizures. PAST MEDICAL HISTORY: History of asthma, GERD, hypertension, hyperlipidemia, history of myocardial infarction and mitral valve prolapse and pulmonary embolism. MEDICATIONS: Home medications are: 1. Prilosec 20 mg p.o. b.i.d. 2. Robaxin 750 mg t.i.d. p.r.n. 3. Lisinopril 40 mg p.o. daily. 4. [place] 10 mg q.6 p.r.n. 5. Cardizem CD 240 mg p.o. daily. 6. Lipitor 10 mg p.o. daily. ALLERGIES: DOXYCYCLINE, KETORALAC, MORPHINE, REGLAN AND COMPAZINE. FAMILY HISTORY: History of cancer, chest pain, CHF, DJD, history hypothyroidism, lung problems. SOCIAL HISTORY: History of smoking. No alcohol intake. REVIEW OF SYSTEMS: ENT: No diminished hearing or vision. CARDIOVASCULAR: As mentioned earlier. RESPIRATORY: As mentioned earlier. GI: No nausea or vomiting. no dysuria. Nervous system as mentioned earlier. Musculoskeletal as mentioned earlier. NEUROLOGICAL: As mentioned earlier. Hematology/Oncology: No history of anemia. Endocrine no history of diabetes. Constitutional: As mentioned earlier. Dermatology: Negative. Rheumatology: Negative. Psychiatry: As mentioned earlier. PHYSICAL EXAMINATION: The patient is alert and oriented times three. Pulse 88, blood pressure 158/93, respiration 18, temp 98.4, pulse ox 98% on room air. HEENT: Conjunctivae normal. Oral mucosa moist. Neck is no jugular venous distention. No lymph node enlargement. Cardiovascular: S1, S2. No S3, no S4. RESPIRATORY: Breath sounds diminished in the bases. No rhonchi. No crackles. ABDOMEN: Soft, obese, nontender. No mass palpable. Legs no edema. No swelling. Straight leg raising test is positive on the on the right side. Otherwise nervous system: Higher functions as mentioned. The movements in the lower limbs as mentioned early. Some sensory abnormalities distally. Otherwise skin no ulcer, rash or bleeding. JOINTS: No active deformity arthropathy noted. Lymphatics: No lymph nodes palpable in the neck, axillae or groin. LABS: CBC within normal limits. Calcium 10.3. ASSESSMENT: 1. Back pain, degenerative joint disease, rule out radiculopathy. 2. History of asthma. 3. History of chest pain. 4. Gastroesophageal reflux disease. 5. Hypertension. 6. Hyperlipidemia. 7. History of myocardial infarction. 8. History of mitral valve prolapse. 9. History of pulmonary embolus. 10.Sleep apnea. 11.History of nephrolithiasis. 12.History of degenerative joint disease and back surgery. 13.History of Methicillin-resistant Staphylococcus aureus. 14.Appendectomy. 15.History of cholecystectomy. RECOMMENDATIONS AND DISCUSSION: In this is a 52-year-old gentleman who presented with multiple complex medical issues, we will continue the current medications, monitor the patient closely, continue the current management and recommend symptomatic treatment. Resume the home medications. DVT prophylaxis. IV steroids have been initiated. I would recommend Accu-Cheks a.c. and at bedtime and continue to monitor. We will also order repeat labs also. Thank you for letting us participate in the care of this patient. MMODL / IJN: [id number] / KAY
[2018-03-26] MEDS: methylPREDNISolone SOD SUCCI 125 MG/2 ML VIAL IV SCH ×5 (00:03→23:22)
[2018-03-26] MEDS: MORPHINE SULFATE 4 MG/ML SYRINGE IV PRN ×6 (00:51→23:23)
[2018-03-26] MEDS: HYDROcodone/APAP 10-325MG 1 EACH TAB PO PRN ×4 (03:19→22:21)
[2018-03-26 07:16] LABS: Glucose,Whole Blood 215 mg/dL (75-99)
[2018-03-26 07:23] LABS: Basophils % (A) 0 %; Eosinophils % (A) 1 %; HCT 41.7 % (39.0-53.0); HGB 13.4 gm/dL (13.0-17.5); Lymphocytes # (A) 0.9 k/uL (1.0-4.8); Lymphocytes % (A) 9 %; MCH 28.1 pg (25.0-35.0); MCHC 32.1 g/dL (31.0-37.0); MCV 87.6 fL (80.0-100.0); Mean Platelet Volume 6.8; Monocytes # (A) 0.2 k/uL (0-1.0); Monocytes % (A) 3 %; Neutrophils # (A) 8.4 k/uL (1.3-7.7); Neutrophils % (A) 87 %; Platelet Count 339 k/uL (150-450); RBC 4.76 m/uL (4.30-5.90); RDW 14.1 % (11.5-15.5); WBC 9.6 k/uL (3.8-10.6)
[2018-03-26 07:42] LABS: Anion Gap 16 mmol/L; Blood Urea Nitrogen 19 mg/dL (9-20); Calcium 9.7 mg/dL (8.4-10.2); Carbon Dioxide 16 mmol/L (22-30); Chloride 106 mmol/L (98-107); Glucose 231 mg/dL (74-99); Potassium 4.9 mmol/L (3.5-5.1); Sodium 138 mmol/L (137-145)
[2018-03-26] MEDS: PANTOPRAZOLE 40 MG TABLET PO SCH ×2 (07:48→18:43)
[2018-03-26] MEDS: LISINOPRIL 20 MG TAB PO SCH (07:48)
[2018-03-26] MEDS: ATORVASTATIN 20 MG TAB PO SCH (07:48)
[2018-03-26] MEDS: DILTIAZEM CD 240 MG CAP.ER.24H PO SCH (07:48)
[2018-03-26] MEDS: INSULIN ASPART 100 UNIT/ML 1 ML 10 ML VIAL SQ SCH ×4 (07:48→20:22)
[2018-03-26] MEDS: ENOXAPARIN 40 MG/0.4 ML SYRINGE SQ SCH (07:48)
[2018-03-26] MEDS ORDERED: DILTIAZEM CD 240 MG CAP.ER.24H PO SCH (09:00)
[2018-03-26] MEDS ORDERED: LISINOPRIL 20 MG TAB PO SCH (09:00)
[2018-03-26] MEDS ORDERED: PANTOPRAZOLE 40 MG/10 ML VIAL IV SCH (09:00)
[2018-03-26 12:07] LABS: Glucose,Whole Blood 293 mg/dL (75-99)
[2018-03-26 12:58] LABS: Hemoglobin A1C 6.9 % (4.0-6.0)
[2018-03-26 17:12] LABS: Glucose,Whole Blood 278 mg/dL (75-99)
--- NOTE | 2018-03-26 17:12 | PN ---
PROGRESS NOTE DATE OF SERVICE: 03/26/2018. INTERVAL HISTORY: This 52-year-old gentleman who was admitted after back pain and DJD has possible radiculopathy. The patient is on IV steroids. No chest pain. No palpitations. No fever. Otherwise Orthopedic surgery following the patient closely. Patient also has some mild incontinence also. PHYSICAL EXAM: Alert and oriented times three. Pulse 91, blood pressure 149/78, respiration 18, temperature 97.8, pulse ox 98% on room air. HEENT: Conjunctivae normal. Oral mucosa moist. Neck is no jugular venous distention. No carotid bruit. No lymph node enlargement. Cardiovascular: S1, S2. Breath sounds diminished in the bases. No rhonchi. No crackles. ABDOMEN: Soft, nontender. Legs: Right leg movements are slightly painful. Nervous System: No focal deficits. LABS: CBC within normal limits and glucose to 215, 293. ASSESSMENT: 1. Back pain, degenerative joint disease, possible radiculopathy. 2. History of asthma. 3. 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 4. History of chest pain. 5. Gastroesophageal reflux disease. 6. Hypertension. 7. History of hyperlipidemia. 8. History of myocardial infarction. 9. History of mitral valve prolapse. 10.History of pulmonary embolism. 11.History of sleep apnea. 12.History of nephrolithiasis. 13.History of degenerative joint disease. 14.History of Methicillin-resistant Staphylococcus aureus. 15.Appendectomy. 16.History of cholecystectomy. RECOMMENDATIONS AND DISCUSSION: In this 52-year-old gentleman who presented with multiple complex medical issues, we will monitor the patient closely. Continue the symptomatic treatment. Continue with IV steroids. Monitor blood sugars closely. Recommend continue insulin. I would also recommend Lantus insulin also at least for now since the patient is on IV steroids. Further recommendations to follow. Closely follow with Orthopedic Surgery. MMODL / IJN: [id number] /
--- NOTE | 2018-03-26 17:33 | P.HPOR ---
History of Present Illness H&P Date: 03/26/18 Chief Complaint: Loss of bowel control, intractable LBP, right lower extremity radiculopathy Patient pleasant 52-year-old male who is seen and examined the bedside for further treatment and evaluation in regards to bowel incontinence. Patient states he went to sit on the toilet yesterday when he sttod over the toilet it caused severe pain to his lumbar spine. He states his back locked up at that time. He states he lost control of his bowels and defecated over his pants. He states since that time he has had significant pain and numbness radiating down the right anterior thigh and over the right lower extremity towards the foot. He denies any left lower extremity radiculopathy. He does have some weakness of the right lower extremity as well and has difficulty performing hip flexion and knee flexion. He denies any left lower extremity weakness. He states he has had these similar symptoms happened to him approximately 4 times this year and previously his symptoms improved with rest and steroid medications. He has a history of previous lumbosacral fusion with hardware intact at L4-5 and L5-S1. He states his surgery on his lumbar spine was performed in 2007 at [facility] by an orthopedic spine surgeon. He has been following with a neurosurgeon for further treatment and evaluation he states he is planning to have a neurostimulator placed. He states placement of this neurostimulator has been on hold due to approval by insurance. He has worked through consultation with psychiatric evaluation prior to neurostimulator placement and states he has been cleared. This morning he received his second dose of Solu-Medrol 60 mg and states so far he has not had significant change in her symptoms. He feels he was having some urinary retention yesterday which is resolved. He is urinating without difficulty. He denies specific injury. He states when his back goes out on him happens with light activities including lumbar running and twisting. Patient states since his admittance they have found some elevated glucose levels even though he had not eaten approximately 12 hours. He continues to be seen and examined by medicine. Past Medical History Past Medical History: Asthma, Chest Pain / Angina, GERD/Reflux, Hyperlipidemia, Hypertension, Myocardial Infarction ([place]), Mitral Valve Prolapse ([place]), Pulmonary Embolus ([place]), Sleep Apnea/CPAP/BIPAP Additional Past Medical History / Comment(s): Hx kidney stones, UTI with urosepsis, renal cysts, chronic neck and back pain, "herniated, bulging discs, lumbar spine nerve damage" pain sometimes radiates down bilateral legs, R lower leg fx as 13 yr old, concussion. Uses CPAP machine., hx of bleeding ulcer.hx c-diff pt stated approx 4 years ago 2013 Last Myocardial Infarction Date:: 2011 History of Any Multi-Drug Resistant Organisms: MRSA Date of last positivie culture/infection: 2015 MDRO Source:: left axilla Past Surgical History: Appendectomy, Back Surgery, Cholecystectomy, Heart Catheterization, Hernia Repair Additional Past Surgical History / Comment(s): 2007 back surgery with decompression fusion at [facility], 2011 cardiac cath, multiple ESWL/ ureteral stents/ double J catheters, L inquinal hernia repair, PICC line for ABX for urosepsis-since removed., Hx of c-diff. 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 Smoking Status: Never smoker Past Alcohol Use History: None Reported Past Drug Use History: None Reported - Past Family History Father Family Medical History: Chest Pain / Angina Additional Family Medical History / Comment(s): "lung problems" Mother Family Medical History: Cancer, Chest Pain / Angina, Congestive Heart Failure ( CHF), Osteoarthritis (OA), Thyroid Disorder Medications and Allergies Home Medications Medication Instructions Recorded Confirmed Type Diltiazem Cd [Cardizem CD] 240 mg PO DAILY 01/19/14 03/25/18 History Lisinopril 40 mg PO DAILY 08/01/17 03/25/18 History Atorvastatin [Lipitor] 20 mg PO DAILY 08/13/17 03/25/18 History Omeprazole [PriLOSEC] 20 mg PO BID 12/11/17 03/25/18 History HYDROcodone/APAP 10-325MG [[place] 1 tab PO Q6HR PRN 03/25/18 03/25/18 History 10-325] Methocarbamol [Robaxin-750] 750 mg PO TID PRN 03/25/18 03/25/18 History Allergies Allergy/AdvReac Type Severity Reaction Status Date / Time doxycycline Allergy Swelling Verified 03/25/18 11:22 ketorolac tromethamine Allergy Itching Verified 03/25/18 11:22 [From Toradol] morphine Allergy Rash/Hives Verified 03/25/18 11:22 metoclopramide HCl AdvReac Dystonic Verified 03/25/18 11:22 [From Reglan] Reaction prochlorperazine edisylate AdvReac Dystonic Verified 03/25/18 11:22 [From Compazine] Reaction prochlorperazine maleate AdvReac Dystonic Verified 03/25/18 11:22 [From Compazine] Reaction Physical Examination Physical exam: Patient is awake, alert, and oriented 3 Vital signs stable Good chest excursion with deep inspiration and expiration Abdomen soft nontender Examination of lumbar spine reveals skin is intact with no abrasions, lacerations, or bruises; no erythema, purulence or signs of infection Evidence of large well-healed incision along the midline of the lumbar spine No significant pain with palpation along the lumbar spine Dorsiflexion, plantarflexion, and extensor hallucis longus positive sustained bilaterally Lower extremity strength 5/5 on the left Difficulty with performing right hip flexion and knee extension No lower extremity hyperreflexia bilaterally Positive Lasegue's test in the right No signs or symptoms of DVT; no calf pain No pain with internal and external rotation of the hips bilaterally Neurovascularly intact Results Pertinent studies: CT of the lumbar spine: Postsurgical changes in which rods and screws appeared to be in good alignment and good position at L4-5 and L5-S1; no evidence of significant spinal canal or neuroforaminal compromise; no evidence of vertebral body compression fracture - Labs Labs: Abnormal Lab Results - Last 24 Hours (Table) 03/25/18 03/26/18 03/26/18 Range/Units 21:15 07:07 07:07 Neutrophils # 8.4 H (1.3-7.7) k/uL Lymphocytes # 0.9 L (1.0-4.8) k/uL Carbon Dioxide 16 L (22-30) mmol/L Glucose 231 H (74-99) mg/dL POC Glucose (mg/dL) 228 H (75-99) mg/dL 03/26/18 03/26/18 Range/Units 07:14 12:01 Neutrophils # (1.3-7.7) k/uL Lymphocytes # (1.0-4.8) k/uL Carbon Dioxide (22-30) mmol/L Glucose (74-99) mg/dL POC Glucose (mg/dL) 215 H 293 H (75-99) mg/dL Microbiology - Last 24 Hours (Table) 03/25/18 11:57 Urine Culture - Preliminary Urine,Voided H & H 03/25/18 03/26/18 Range/Units 10:58 07:07 Hgb 14.2 13.4 (13.0-17.5) gm/dL Hct 43.8 41.7 (39.0-53.0) % Result Diagrams: 03/26/18 07:07 03/26/18 07:07 Assessment and Plan Assessment: Assessment: Loss of bowel control Intractable low back pain Right lower extremity radiculopathy with weakness History of lumbosacral fusion L4-5 and L5-S1 (1) Intractable low back pain Current Visit: Yes Status: Acute Code(s): M54.5 - LOW BACK PAIN SNOMED Code(s): 17215332783950114 (2) Lumbar back pain with radiculopathy affecting right lower extremity Current Visit: Yes Status: Acute Code(s): M54.16 - RADICULOPATHY, LUMBAR REGION SNOMED Code(s): 003964455 (3) Bowel incontinence Current Visit: Yes Status: Acute Code(s): R15.9 - FULL INCONTINENCE OF FECES SNOMED Code(s): 07804921 (4) Fusion of spine of lumbosacral region Current Visit: No Status: Acute Code(s): M43.27 - FUSION OF SPINE, LUMBOSACRAL REGION SNOMED Code(s): 17279547 (5) Weakness of right lower extremity Current Visit: No Status: Acute Code(s): M62.81 - MUSCLE WEAKNESS ( GENERALIZED) SNOMED Code(s): 275090222 Plan: Plan: 1. After physical examination of the patient, further discussion with patient and review of imaging, we'll plan to continue conservative treatment at this time in regards to his lumbosacral spine. Patient is also been discussed in detail with Dr. Hai Short. He will continue with Solu-Medrol 60 mg IV every 6 hours to see if this will help improve his symptoms regards to his bowel incontinence and right lower extremity radiculopathy weakness. He has a history of these symptoms which has happened approximately 4 times in 2018. He has a history of previous lumbosacral fusion. He follows with a neurosurgeon at [facility] who is planning for neurostimulator placement. At this time we are not currently planning for surgical intervention in regards to his lumbosacral spine. We're trying to control his pain and symptoms with conservative treatment in anticipation for discharge at which time he may plan a follow-up with his neurosurgeon for further evaluation treatment. 2. Medicine will continue following the patient closely including further evaluation for increased glucose levels 3. Continue pain control with morphine 4 mg IV, [place] 10 M/325 mg, and Dilaudid as ordered as prescribed 4. We'll continue to follow patient closely 5. Patient has been discussed in detail with Dr. Hai Short he agrees with this plan Time with Patient: Greater than 30
[2018-03-26] MEDS: SODIUM CHLORIDE 0.9% 1,000 ML IV SCH (18:57)
[2018-03-26 20:10] LABS: Glucose,Whole Blood 296 mg/dL (75-99)
[2018-03-26] MEDS ORDERED: INSULIN DETEMIR 100 UNIT/ML 10 ML VIAL SQ SCH (21:00)
[2018-03-27] MEDS: MORPHINE SULFATE 4 MG/ML SYRINGE IV PRN ×2 (02:51→06:34)
[2018-03-27] MEDS: HYDROcodone/APAP 10-325MG 1 EACH TAB PO PRN ×2 (04:27→10:55)
[2018-03-27] MEDS: methylPREDNISolone SOD SUCCI 125 MG/2 ML VIAL IV SCH ×2 (06:35→12:23)
[2018-03-27 06:40] LABS: Glucose,Whole Blood 213 mg/dL (75-99)
[2018-03-27 07:35] VITALS: BP 144/79; PULSE 93; RESP 16; TEMP 97.9
[2018-03-27] MEDS: ATORVASTATIN 20 MG TAB PO SCH (08:13)
[2018-03-27] MEDS: DILTIAZEM CD 240 MG CAP.ER.24H PO SCH (08:13)
[2018-03-27] MEDS: PANTOPRAZOLE 40 MG TABLET PO SCH (08:13)
[2018-03-27] MEDS: ENOXAPARIN 40 MG/0.4 ML SYRINGE SQ SCH (08:13)
[2018-03-27] MEDS: INSULIN ASPART 100 UNIT/ML 1 ML 10 ML VIAL SQ SCH ×2 (08:14→12:57)
[2018-03-27] MEDS: LISINOPRIL 20 MG TAB PO SCH (08:14)
[2018-03-27] MEDS: SODIUM CHLORIDE 0.9% 1,000 ML IV SCH (08:18)
[2018-03-27 08:52] LABS: Anion Gap 14 mmol/L; Blood Urea Nitrogen 23 mg/dL (9-20); Calcium 9.7 mg/dL (8.4-10.2); Carbon Dioxide 20 mmol/L (22-30); Chloride 107 mmol/L (98-107); Glucose 227 mg/dL (74-99); Potassium 4.8 mmol/L (3.5-5.1); Sodium 141 mmol/L (137-145)
[2018-03-27 09:13] LABS: Basophils % (A) 0 %; Eosinophils # (A) 0.1 k/uL (0-0.7); Eosinophils % (A) 1 %; HGB 12.9 gm/dL (13.0-17.5); Lymphocytes # (A) 0.9 k/uL (1.0-4.8); Lymphocytes % (A) 6 %; MCH 28.6 pg (25.0-35.0); MCHC 33.2 g/dL (31.0-37.0); MCV 86.1 fL (80.0-100.0); Mean Platelet Volume 7.5; Monocytes # (A) 0.4 k/uL (0-1.0); Monocytes % (A) 3 %; Neutrophils # (A) 13.1 k/uL (1.3-7.7); Neutrophils % (A) 90 %; Platelet Count 390 k/uL (150-450); RBC 4.52 m/uL (4.30-5.90); RDW 14.3 % (11.5-15.5); WBC 14.6 k/uL (3.8-10.6)
[2018-03-27 12:53] LABS: Glucose,Whole Blood 204 mg/dL (75-99)
--- NOTE | 2018-03-27 13:14 | P.DS ---
Providers Date of admission: 03/25/18 13:48 Expected date of discharge: 03/27/18 Attending physician: Paul Short Consults: 03/25/18 14:07 Consult Physician Stat Consulting Provider: Reid Deal Consult Reason/Comments: Medical Management, Back pain, incontinence Do you want consulting provider notified?: Yes Primary care physician: Trav Muniz - Discharge Diagnosis(es) (1) Intractable low back pain Current Visit: Yes Status: Acute (2) Lumbar back pain with radiculopathy affecting right lower extremity Current Visit: Yes Status: Acute (3) Bowel incontinence Current Visit: Yes Status: Acute (4) Fusion of spine of lumbosacral region Current Visit: No Status: Acute (5) Weakness of right lower extremity Current Visit: No Status: Acute Hospital Course: This is a pleasant 52-year-old male who presented with bowel incontinence with exacerbation of low back pain. He is continuing to receive Solu-Medrol 60 mg every 6 hours since his admission. Since being seen him yesterday, his symptoms have improved. He is now able to ambulate the hallways. He feels his legs are stronger. He continues to have ongoing low back pain but states his low back pain is better controlled. His right lower extremity weakness has improved. He feels he is more at his baseline. At this time, he does feel he is ready for discharge home. He does not wish to have a steroid taper discharge as he is currently scheduled to have an epidural injection this coming 03/30/2018, and does not want that medication to have an effect on his ability to have the injection. He will continue to follow up with his neurosurgeon as scheduled for further evaluation and treatment in anticipation for placement of a neurostimulator. He is eating and voiding without difficulty today. He continues to be seen by medicine for further treatment of elevated glucose levels. We discussed he is cleared for discharge from an orthopedic spine stand point once cleared by medicine. We are not planning to have him follow up in outpatient setting for further treatment or evaluation is he will continue to follow with his neurosurgeon at [facility]. May continue with pain medications and outpatient setting as per as he prescribed as needed for relief of his symptoms. We're not planning for prescribing of narcotic pain medications at discharge. Physical exam: Patient is awake, alert, and oriented 3 Vital signs stable Good chest excursion with deep inspiration and expiration Abdomen soft nontender Examination of lumbar spine reveals skin is intact with no abrasions, lacerations, or bruises; no erythema, purulence or signs of infection Evidence of large well-healed incision along the midline of the lumbar spine No significant pain with palpation along the lumbar spine Dorsiflexion, plantarflexion, and extensor hallucis longus positive sustained bilaterally Lower extremity strength 5/5 laterally No signs or symptoms of DVT; no calf pain No pain with internal and external rotation of the hips bilaterally Neurovascularly intact Patient Condition at Discharge: Stable Plan - Discharge Summary Discharge Rx Participant: No New Discharge Prescriptions: No Action Diltiazem Cd [Cardizem CD] 240 mg PO DAILY Lisinopril 40 mg PO DAILY Atorvastatin [Lipitor] 20 mg PO DAILY Omeprazole [PriLOSEC] 20 mg PO BID HYDROcodone/APAP 10-325MG [[place] 10-325] 1 tab PO Q6HR PRN PRN Reason: Pain Methocarbamol [Robaxin-750] 750 mg PO TID PRN PRN Reason: Pain Discharge Medication List Diltiazem Cd [Cardizem CD] 240 mg PO DAILY 01/19/14 [History] Lisinopril 40 mg PO DAILY 08/01/17 [History] Atorvastatin [Lipitor] 20 mg PO DAILY 08/13/17 [History] Omeprazole [PriLOSEC] 20 mg PO BID 12/11/17 [History] HYDROcodone/APAP 10-325MG [[place] 10-325] 1 tab PO Q6HR PRN 03/25/18 [History] Methocarbamol [Robaxin-750] 750 mg PO TID PRN 03/25/18 [History] Follow up Appointment(s)/Referral(s): Trav Muniz MD [Primary Care Provider] - 1-2 days Pool Lin PAC [PHYSICIAN RESOURCING ADVISOR] - As Needed (Patient may follow-up with Pool Lin PA-C or Dr. Hai Short at [facility] on an as-needed basis following discharge. ) Discharge Disposition: HOME SELF-CARE
== END 2018-03-27 15:12 | disposition home or self-care (01) ==
LOC: EC 10:11 → 3OBS 13:48
PROVIDERS: ADMIT Orthopaedic Surgery Orthopaedic Surgery of the Spine; ATTEND Orthopaedic Surgery Orthopaedic Surgery of the Spine
DX: M54.5 Low back pain (principal); M54.16 Radiculopathy, lumbar region; R15.9 Full incontinence of feces; R73.9 Hyperglycemia, unspecified; I10 Essential (primary) hypertension; E78.5 Hyperlipidemia, unspecified; R53.1 Weakness; M54.2 Cervicalgia; G89.29 Other chronic pain; K21.9 Gastro-esophageal reflux disease without esophagitis; J45.909 Unspecified asthma, uncomplicated; I34.1 Nonrheumatic mitral (valve) prolapse; G47.30 Sleep apnea, unspecified; Z99.89 Dependence on other enabling machines and devices; J84.10 Pulmonary fibrosis, unspecified; R26.2 Difficulty in walking, not elsewhere classified; M19.90 Unspecified osteoarthritis, unspecified site; N28.1 Cyst of kidney, acquired; Z79.899 Other long term (current) drug therapy; Z88.1 Allergy status to other antibiotic agents; Z88.5 Allergy status to narcotic agent; Z88.8 Allergy status to other drugs, medicaments and biological substances; Z90.49 Acquired absence of other specified parts of digestive tract; Z98.1 Arthrodesis status; I25.2 Old myocardial infarction; Z86.711 Personal history of pulmonary embolism; Z86.14 Personal history of Methicillin resistant Staphylococcus aureus infection; Z87.442 Personal history of urinary calculi; Z87.820 Personal history of traumatic brain injury; Z87.440 Personal history of urinary (tract) infections; Z87.19 Personal history of other diseases of the digestive system; Z90.89 Acquired absence of other organs; Z87.891 Personal history of nicotine dependence; Z83.49 Family history of other endocrine, nutritional and metabolic diseases; Z82.49 Family history of ischemic heart disease and other diseases of the circulatory system; Z82.61 Family history of arthritis; Z83.6 Family history of other diseases of the respiratory system; Z80.9 Family history of malignant neoplasm, unspecified
CPT/HCPCS: 96375 ×3; 96361 ×3; 96376 ×5; 96374 ×2; 99285 ×2; 96372 ×2; 36415; 80053; 80048 ×2; 85025 ×3; 81003; 87086; 83036; 72131; G0378 ×3; J2270 ×3; J2360; J2930 ×3; J1650 ×2

== ENCOUNTER 2018-04-24 00:12 | Emergency (ER) | payer OTHER ==
[2018-04-24 00:20] VITALS: RESP 20
[2018-04-24] MEDS ORDERED: ORPHENADRINE 30 MG/ML 2 ML VIAL IM STA (01:06)
[2018-04-24] MEDS ORDERED: methylPREDNISolone SOD SUCCI 125 MG/2 ML VIAL IM ONE (01:06)
[2018-04-24] MEDS ORDERED: ONDANSETRON ODT 4 MG TAB PO STA (01:07)
[2018-04-24] MEDS ORDERED: MORPHINE SULFATE 4 MG/ML SYRINGE IM STA (01:27)
--- NOTE | 2018-04-24 01:36 | ED ---
Back Pain HPI - General Chief Complaint: Back Pain/Injury Stated Complaint: Back pain Time Seen by Provider: 04/24/18 00:20 Source: patient Limitations: no limitations - History of Present Illness Initial Comments: This patient is a 52-year-old man who presents to be evaluated for an exacerbation of chronic back pain. The patient states that he was getting out of the shower and slipped on the floor. He was able to reach out to catch himself but states that it did jar his back somewhat. This set off his chronic right lower back pain. He does have radiation to his right leg as he usually does. He has some numbness and tingling to the right leg. The patient states that this is identical to previous episodes. MD Complaint: back pain, back injury Onset/Timin -: hour(s) Similar Symptoms Previously: Yes Place: home Radiation: right leg Severity: severe Quality: burning, aching Consistency: constant Improves With: none Worsens With: movement Context: turning/twisting Associated Symptoms: numbness - Related Data Home Medications Medication Instructions Recorded Confirmed Diltiazem Cd [Cardizem CD] 240 mg PO DAILY 01/19/14 04/24/18 Lisinopril 40 mg PO DAILY 08/01/17 04/24/18 Atorvastatin [Lipitor] 20 mg PO DAILY 08/13/17 04/24/18 Omeprazole [PriLOSEC] 20 mg PO BID 12/11/17 04/24/18 HYDROcodone/APAP 10-325MG [[place] 1 tab PO Q6HR PRN 03/25/18 04/24/18 10-325] Methocarbamol [Robaxin-750] 750 mg PO TID PRN 03/25/18 04/24/18 metFORMIN HCL [Glucophage] 500 mg PO BID 04/24/18 04/24/18 Allergies Allergy/AdvReac Type Severity Reaction Status Date / Time doxycycline Allergy Swelling Verified 03/25/18 11:22 ketorolac tromethamine Allergy Itching Verified 03/25/18 11:22 [From Toradol] morphine Allergy Rash/Hives Verified 03/25/18 11:22 metoclopramide HCl AdvReac Dystonic Verified 03/25/18 11:22 [From Reglan] Reaction prochlorperazine edisylate AdvReac Dystonic Verified 09/16/18 11:22 [From Compazine] Reaction prochlorperazine maleate AdvReac Dystonic Verified 03/25/18 11:22 [From Compazine] Reaction Review of Systems ROS Statement: Those systems with pertinent positive or pertinent negative responses have been documented in the HPI. ROS Other: All systems not noted in ROS Statement are negative. Constitutional: Denies: fever, chills, weakness Respiratory: Denies: cough, dyspnea Cardiovascular: Denies: chest pain Gastrointestinal: Denies: abdominal pain, vomiting Musculoskeletal: Reports: as per HPI, back pain Neurological: Reports: paresthesias. Denies: headache, weakness Past Medical History Past Medical History: Asthma, Chest Pain / Angina, Diabetes Mellitus, GERD/ Reflux, Hyperlipidemia, Hypertension, Myocardial Infarction ([place]), Mitral Valve Prolapse (MVP), Pulmonary Embolus (PE), Sleep Apnea/CPAP/BIPAP Additional Past Medical History / Comment(s): Hx kidney stones, UTI with urosepsis, renal cysts, chronic neck and back pain, "herniated, bulging discs, lumbar spine nerve damage" pain sometimes radiates down bilateral legs, R lower leg fx as 13 yr old, concussion. Uses CPAP machine., hx of bleeding ulcer.hx c-diff pt stated approx 4 years ago 2013 Last Myocardial Infarction Date:: 2011 History of Any Multi-Drug Resistant Organisms: MRSA Date of last positivie culture/infection: 2015 MDRO Source:: left axilla Past Surgical History: Appendectomy, Back Surgery, Cholecystectomy, Heart Catheterization, Hernia Repair Additional Past Surgical History / Comment(s): 2007 back surgery with decompression fusion at [facility], 2011 cardiac cath, multiple ESWL/ ureteral stents/ double J catheters, L inquinal hernia repair, PICC line for ABX for urosepsis-since removed., Hx of c-diff. Past Anesthesia/Blood Transfusion Reactions: No Reported Reaction Past Psychological History: No Psychological Hx Reported Smoking Status: Never smoker Past Alcohol Use History: None Reported Past Drug Use History: None Reported - Past Family History Father Family Medical History: Chest Pain / Angina Additional Family Medical History / Comment(s): "lung problems" Mother Family Medical History: Cancer, Chest Pain / Angina, Congestive Heart Failure ( CHF), Osteoarthritis (OA), Thyroid Disorder General Exam Limitations: no limitations General appearance: alert, in no apparent distress Head exam: Present: atraumatic, normocephalic Eye exam: Present: normal appearance. Absent: scleral icterus, conjunctival injection Neck exam: Present: full ROM Respiratory exam: Present: normal lung sounds bilaterally. Absent: respiratory distress, wheezes, rales, rhonchi, stridor Cardiovascular Exam: Present: regular rate, normal rhythm, normal heart sounds. Absent: systolic murmur, diastolic murmur, rubs, gallop GI/Abdominal exam: Present: soft. Absent: distended, tenderness, guarding, rebound, rigid, mass, pulsatile mass Back exam: Present: normal inspection, full ROM, muscle spasm, paraspinal tenderness. Absent: CVA tenderness (R), CVA tenderness (L), vertebral tenderness Neurological exam: Present: alert, normal gait, reflexes normal. Absent: motor sensory deficit Skin exam: Present: warm, dry, intact, normal color. Absent: rash Course Vital Signs 04/24/18 04/24/18 04/24/18 00:15 01:38 03:25 Temperature 98.5 F 98.4 F Pulse Rate 99 113 H 99 Respiratory 20 20 20 Rate Blood Pressure 209/109 183/97 181/92 O2 Sat by Pulse 98 97 98 Oximetry Disposition Clinical Impression: Back pain Disposition: HOME SELF-CARE Condition: Good Instructions: Chronic Back Pain (ED) Is patient prescribed a controlled substance at d/c from ED?: No Referrals: Trav Muniz MD [Primary Care Provider] - 1-2 days
[2018-04-24] MEDS ORDERED: MORPHINE SULFATE 4 MG/ML SYRINGE IV STA (03:12)
[2018-04-24 04:06] VITALS: BP 181/92; PULSE 99; TEMP 98.4
== END 2018-04-24 03:36 | disposition home or self-care (01) ==
LOC: EC 00:12
DX: M54.5 Low back pain (principal); R20.0 Anesthesia of skin; E11.9 Type 2 diabetes mellitus without complications; E78.5 Hyperlipidemia, unspecified; I10 Essential (primary) hypertension; I25.2 Old myocardial infarction; G47.30 Sleep apnea, unspecified; Z99.89 Dependence on other enabling machines and devices; Z86.14 Personal history of Methicillin resistant Staphylococcus aureus infection; Z79.84 Long term (current) use of oral hypoglycemic drugs; Z79.899 Other long term (current) drug therapy; Z88.1 Allergy status to other antibiotic agents; Z88.5 Allergy status to narcotic agent; Z88.6 Allergy status to analgesic agent; Z88.8 Allergy status to other drugs, medicaments and biological substances; Z98.890 Other specified postprocedural states; Z95.818 Presence of other cardiac implants and grafts; W01.0XXA Fall on same level from slipping, tripping and stumbling without subsequent striking against object, initial encounter; Y92.009 Unspecified place in unspecified non-institutional (private) residence as the place of occurrence of the external cause
CPT/HCPCS: 99283; 96374; 96372 ×3; J2270; J2360; J2930

== ENCOUNTER 2018-05-21 19:32 | Observation (INO) | payer OTHER ==
--- NOTE | 2018-05-21 20:00 | ED ---
Chest Pain HPI - General Chief Complaint: Chest Pain Stated Complaint: chest pain, weakness Time Seen by Provider: 05/21/18 19:44 Source: patient, RN notes reviewed, old records reviewed Mode of arrival: wheelchair Limitations: no limitations - History of Present Illness Initial Comments: This is a 52-year-old male the ER for evaluation of severe chest pain chest pain with nausea anxiety not feeling well. Patient denies any fever no cough positive shortness of breath or abdominal pain as well. Patient states he may have pancreatitis disease history of pancreatitis in the past. Patient feels mildly sweaty. Patient states she's been taking all medication as prescribed MD Complaint: chest pain -: days(s) Onset: during rest, during exertion, after eating Pain Location: left chest, epigastric Pain Radiation: back Severity: moderate Severity scale (1-10): 5 Quality: aching, sharp Consistency: constant Improves With: nothing Worsens With: nothing Anginal Symptoms: nausea, vomiting Treatments Prior to Arrival: none - Related Data Home Medications Medication Instructions Recorded Confirmed Lisinopril 40 mg PO DAILY 08/01/17 05/21/18 Omeprazole [PriLOSEC] 20 mg PO BID 12/11/17 05/21/18 HYDROcodone/APAP 10-325MG [[place] 1 tab PO Q6HR PRN 03/25/18 05/21/18 10-325] Methocarbamol [Robaxin-750] 750 mg PO TID PRN 03/25/18 05/21/18 metFORMIN HCL [Glucophage] 500 mg PO BID 04/24/18 05/21/18 Hydrochlorothiazide [Hydrodiuril] 25 mg PO DAILY 05/21/18 05/21/18 Previous Rx's Medication Instructions Recorded Atorvastatin [Lipitor] 40 mg PO DAILY #90 tab 05/22/18 Diltiazem Cd [Cardizem CD] 300 mg PO DAILY #90 cap.er.[id number] 05/22/18 Allergies Allergy/AdvReac Type Severity Reaction Status Date / Time doxycycline Allergy Swelling Verified 05/21/18 23:46 ketorolac tromethamine Allergy Rash/Hives Verified 05/21/18 23:46 [From Toradol] morphine Allergy Rash/Hives Verified 05/21/18 23:46 metoclopramide HCl AdvReac Dystonic Verified 05/21/18 23:46 [From Reglan] Reaction prochlorperazine edisylate AdvReac Dystonic Verified 05/21/18 23:46 [From Compazine] Reaction prochlorperazine maleate AdvReac Dystonic Verified 05/21/18 23:46 [From Compazine] Reaction Review of Systems ROS Statement: Those systems with pertinent positive or pertinent negative responses have been documented in the HPI. ROS Other: All systems not noted in ROS Statement are negative. EKG Findings - EKG Comments: EKG Findings:: EKG shows sinus tachycardia rate 123, GA 150, QRS 06, QTc 458 Past Medical History Past Medical History: Asthma, Chest Pain / Angina, Diabetes Mellitus, GERD/ Reflux, Hyperlipidemia, Hypertension, Myocardial Infarction ([place]), Mitral Valve Prolapse (MVP), Pulmonary Embolus (PE), Sleep Apnea/CPAP/BIPAP Additional Past Medical History / Comment(s): Hx kidney stones, UTI with urosepsis, renal cysts, chronic neck and back pain, "herniated, bulging discs, lumbar spine nerve damage" pain sometimes radiates down bilateral legs, R lower leg fx as 13 yr old, concussion. Uses CPAP machine., hx of bleeding ulcer.hx c-diff pt stated approx 4 years ago 2013 Last Myocardial Infarction Date:: 2011 History of Any Multi-Drug Resistant Organisms: MRSA Date of last positivie culture/infection: 2015 MDRO Source:: left axilla Past Surgical History: Appendectomy, Back Surgery, Cholecystectomy, Heart Catheterization, Hernia Repair Additional Past Surgical History / Comment(s): 2007 back surgery with decompression fusion at [facility], 2011 cardiac cath, multiple ESWL/ ureteral stents/ double J catheters, L inquinal hernia repair, PICC line for ABX for urosepsis-since removed., Hx of c-diff. Past Anesthesia/Blood Transfusion Reactions: No Reported Reaction Past Psychological History: No Psychological Hx Reported Smoking Status: Never smoker Past Alcohol Use History: None Reported Past Drug Use History: None Reported - Past Family History Father Family Medical History: Chest Pain / Angina Additional Family Medical History / Comment(s): "lung problems" Mother Family Medical History: Cancer, Chest Pain / Angina, Congestive Heart Failure ( CHF), Osteoarthritis (OA), Thyroid Disorder General Exam Limitations: no limitations General appearance: alert, anxious, in distress, obese Head exam: Present: atraumatic, normocephalic, normal inspection Eye exam: Present: normal appearance, PERRL, EOMI. Absent: scleral icterus, conjunctival injection, periorbital swelling ENT exam: Present: normal exam, mucous membranes moist Neck exam: Present: normal inspection. Absent: tenderness, meningismus, lymphadenopathy Respiratory exam: Present: normal lung sounds bilaterally. Absent: respiratory distress, wheezes, rales, rhonchi, stridor Cardiovascular Exam: Present: regular rate, normal rhythm, tachycardia, normal heart sounds. Absent: systolic murmur, diastolic murmur, rubs, gallop, clicks GI/Abdominal exam: Present: soft, normal bowel sounds. Absent: distended, tenderness, guarding, rebound, rigid Extremities exam: Present: normal inspection, full ROM, normal capillary refill. Absent: tenderness, pedal edema, joint swelling, calf tenderness Back exam: Present: normal inspection Neurological exam: Present: alert, oriented X3, CN II-XII intact Psychiatric exam: Present: normal affect, normal mood Skin exam: Present: warm, dry, intact, normal color. Absent: rash Course Vital Signs 05/21/18 05/21/18 05/21/18 19:37 19:52 20:00 Temperature 98.3 F Pulse Rate 131 H 122 H Respiratory 20 20 12 Rate Blood Pressure 197/106 185/112 O2 Sat by Pulse 98 97 Oximetry 05/21/18 05/21/18 05/21/18 20:24 20:30 20:37 Temperature Pulse Rate 128 H 123 H 131 H Respiratory 16 Rate Blood Pressure 144/111 O2 Sat by Pulse 98 Oximetry 05/21/18 05/21/18 05/21/18 21:00 21:30 21:45 Temperature Pulse Rate 125 H 122 H Respiratory 19 16 Rate Blood Pressure 178/119 177/115 138/92 O2 Sat by Pulse 91 L 94 L Oximetry 05/21/18 05/21/18 22:13 22:30 Temperature Pulse Rate 115 H 111 H Respiratory 16 14 Rate Blood Pressure 114/95 114/95 O2 Sat by Pulse 100 95 Oximetry - Reevaluation(s) Reevaluation #1: Medical record is reviewed Patient continuing to have chest pain and elevated blood pressure Studies Patient is CT of chest and abdomen pelvis is negative for acute disease Chest Pain MDM - MDM 52 male the ER for evaluation significant hypertension and chest pain. Pain blood pressure improved here in the emergency room, patient's CAT scan is normal , patient sta and not feeling safe for discharge, patient be admitted for cardiology evaluation and observationtes the pain is been persistent Critical Care Time Critical Care Time: Yes Total Critical Care Time: 31 Disposition Clinical Impression: Chest pain, HTN (hypertension) Disposition: ADMITTED IP TO THIS HOSP Condition: Undetermined Is patient prescribed a controlled substance at d/c from ED?: No
[2018-05-21] MEDS ORDERED: IPRATROPIUM-ALBUTEROL 3 ML NEB INHALATION STA (20:02)
[2018-05-21] MEDS ORDERED: HYDROmorphone 1 MG/ML 1 ML SYRINGE IVP STA ×2 (20:02→21:23)
[2018-05-21] MEDS ORDERED: SODIUM CHLORIDE 0.9% 1,000 ML IV STA ×3 (20:42→22:54)
[2018-05-21] MEDS ORDERED: ENALAPRILAT 1.25 MG/ML 1 ML VIAL IVP STA (20:50)
[2018-05-21 21:12] LABS: Basophils % (A) 1 %; Eosinophils # (A) 0.2 k/uL (0-0.7); Eosinophils % (A) 2 %; HCT 43.8 % (39.0-53.0); HGB 14.4 gm/dL (13.0-17.5); Lymphocytes % (A) 22 %; MCH 27.9 pg (25.0-35.0); MCHC 32.8 g/dL (31.0-37.0); MCV 85.1 fL (80.0-100.0); Mean Platelet Volume 6.2; Monocytes # (A) 0.5 k/uL (0-1.0); Monocytes % (A) 6 %; Neutrophils % (A) 67 %; Platelet Count 361 k/uL (150-450); RBC 5.15 m/uL (4.30-5.90); RDW 14.2 % (11.5-15.5)
--- NOTE | 2018-05-21 21:21 | XR ---
EXAMINATION TYPE: XR chest 2V DATE OF EXAM: 05/21/2018 COMPARISON: Prior chest x-ray 12/11/2017 HISTORY: Chest pain TECHNIQUE: Frontal and lateral views of the chest are obtained. FINDINGS: There is no focal air space opacity, pleural effusion, or pneumothorax seen. The cardiac silhouette size is within normal limits. The osseous structures are intact. There are overlying car diac leads. IMPRESSION: No acute cardiopulmonary process.
[2018-05-21 21:22] LABS: ALT 45 U/L (21-72); AST 29 U/L (17-59); Albumin 4.8 g/dL (3.5-5.0); Alkaline Phosphatase 80 U/L (38-126); Anion Gap 12 mmol/L; Blood Urea Nitrogen 13 mg/dL (9-20); Calcium 10.4 mg/dL (8.4-10.2); Carbon Dioxide 20 mmol/L (22-30); Chloride 106 mmol/L (98-107); Glucose 145 mg/dL (74-99); Lipase 148 U/L (23-300); Potassium 4.4 mmol/L (3.5-5.1); Sodium 138 mmol/L (137-145); Total Bilirubin 0.6 mg/dL (0.2-1.3); Total Protein 7.9 g/dL (6.3-8.2)
[2018-05-21 21:24] LABS: Creatine Kinase 286 U/L (55-170)
[2018-05-21 21:37] LABS: Creatine Kinase MB 1.1 ng/mL (0.0-2.4); Partial Thromboplastin Time 24.5 sec (22.0-30.0); Prothrombin Time 9.8 sec (9.0-12.0); Troponin I <0.012 ng/mL (0.000-0.034)
[2018-05-21] MEDS: LORazepam 2 MG/ML INJ IV STA ×2 (22:01→22:03)
--- NOTE | 2018-05-21 22:04 | CT ---
EXAMINATION TYPE: CT angio chest DATE OF EXAM: 05/21/2018 COMPARISON: Prior chest CT 05/22/2017 HISTORY: Chest and epigastric pain today CT DLP: 675.4 mGycm Automated exposure control for dose reduction was used. CONTRAST: CTA scan of the thorax is performed with IV Contrast, patient injected with 100 mL of Isovue 370, pul monary embolism protocol. MIP images are created and reviewed. 3D reconstructed images are created on an independent workstation and reviewed. FINDINGS: LUNGS: The lungs are grossly clear, there is no concerning parenchymal mass or nodule identified. T here is no pleural effusion or pneumothorax seen. The tracheobronchial tree is patent. AORTA: No additional significant abnormality is seen. MEDIASTINUM: There is satisfactory enhancement of the pulmonary artery and its branches, there is no CT evidence for pulmonary embolism. There are no greater than 1 cm hilar or mediastinal lymph nodes. No pericardial effusion is seen. OTHER: Liver shows low attenuation likely due to hepatic steatosis and may be enlarged. Patient is p ost cholecystectomy. Cortical cyst associated with the right kidney measures 3 cm.. IMPRESSION: NO EVIDENT PULMONARY EMBOLISM.
[2018-05-21] MEDS ORDERED: NITROGLYCERIN SL TABS 0.4 MG TAB SUBLINGUAL PRN (22:53)
[2018-05-21] MEDS ORDERED: IPRATROPIUM-ALBUTEROL 3 ML NEB INHALATION PRN (22:54)
[2018-05-21] MEDS ORDERED: methylPREDNISolone SOD SUCCI 125 MG/2 ML VIAL IV STA (22:54)
[2018-05-21] MEDS ORDERED: LORazepam 2 MG/ML INJ IV PRN (22:54)
[2018-05-21 23:57] VITALS: RESP 18
--- NOTE | 2018-05-22 00:10 | CT ---
EXAMINATION TYPE: CT abdomen pelvis w con DATE OF EXAM: 05/21/2018 COMPARISON: August 13, 2017 HISTORY: Chest and epigastric pain today CT DLP: 1194.6 mGycm Automated exposure control for dose reduction was used. TECHNIQUE: Helical acquisition of images was performed from the lung bases through the pelvis. CONTRAST: Performed without Oral Contrast and with IV Contrast, patient injected with 100 mL of Isovue 370. FINDINGS: Lung bases are clear of consolidation. There is no pleural effusion. There is some fatty infiltration of the liver. Spleen appears normal. There is no pancreatic mass. There are clips from cholecystecto my. Bile ducts are not dilated. Stomach appears normal. There is no adrenal mass. There is 3 cm cyst on the anterior right kidney. There is no hydronephrosis . Ureters are not dilated. Kidneys show satisfactory contrast opacification. There is no retroperiton eal adenopathy. There are rods and screws fusing the lower lumbar spine. Bladder distends smoothly. T here is no inguinal hernia. There is no free fluid in the pelvis. Appendix is not seen. There is no s ign of appendicitis. There is no mesenteric edema or adenopathy. I see no intestinal wall thickening. There are no dilated loops. There is no bony destructive process. There is mild disc space narrowing at L4-5 and L5-S1. IMPRESSION: NEGATIVE CT SCAN ABDOMEN AND PELVIS. I DO NOT SEE A CAUSE FOR ABDOMINAL PAIN. MINIMAL FATTY INFILTRAT ION OF THE LIVER.
[2018-05-22] MEDS: methylPREDNISolone SOD SUCCI 125 MG/2 ML VIAL IV SCH ×3 (00:54→12:08)
[2018-05-22 02:05] LABS: Creatine Kinase 228 U/L (55-170)
[2018-05-22 02:18] LABS: Creatine Kinase MB 0.9 ng/mL (0.0-2.4); Troponin I <0.012 ng/mL (0.000-0.034)
[2018-05-22] MEDS: HYDROmorphone 1 MG/ML 1 ML SYRINGE IVP PRN ×2 (02:19→06:20)
[2018-05-22 06:56] LABS: Glucose,Whole Blood 223 mg/dL (75-99)
[2018-05-22 08:44] LABS: Creatine Kinase 198 U/L (55-170)
[2018-05-22 08:55] LABS: Creatine Kinase MB 0.8 ng/mL (0.0-2.4); Troponin I <0.012 ng/mL (0.000-0.034)
[2018-05-22] MEDS ORDERED: HYDROCHLOROTHIAZIDE 25 MG TAB PO SCH (09:00)
[2018-05-22] MEDS ORDERED: DILTIAZEM CD 240 MG CAP.ER.24H PO SCH (09:00)
[2018-05-22] MEDS ORDERED: LISINOPRIL 20 MG TAB PO SCH (09:00)
[2018-05-22] MEDS ORDERED: ATORVASTATIN 20 MG TAB PO SCH (09:00)
[2018-05-22] MEDS ORDERED: ASPIRIN 325 MG TAB PO SCH (09:00)
[2018-05-22] MEDS ORDERED: DILTIAZEM CD 300 MG CAP.ER.24H PO SCH (09:00)
[2018-05-22] MEDS: INSULIN ASPART 100 UNIT/ML 1 ML 10 ML VIAL SQ SCH ×2 (09:04→12:15)
--- NOTE | 2018-05-22 09:43 | P.CRDCN ---
History of Present Illness History of present illness: This is a pleasant 52-year-old male past medical history significant for hypertension, dyslipidemia, diabetes mellitus, gastroesophageal reflux disease, obstructive sleep apnea and obesity. He has no history of myocardial infarction. He follows with Dr. Arora in the office. We've been asked to see him in consultation for chest pain. He states he took the dog for a walk yesterday without incident or symptoms. Once he came back home and sat down on the couch he started feeling pain in his chest described as a tight sensation with radiation to the upper abdomen with nausea, shortness of breath and palpitations. His symptoms persisted off and on all day with no specific aggravating or alleviating factors. His symptoms have subsided since admission. He talks about having palpitations frequently as well. Mostly when he sits down at night to go to bed he feels his heart start racing. It is described as a regular but fast sensation. He denies dizziness, shortness of breath, diaphoresis, nausea, vomiting or chest pain during his episodes of palpitations. EKG on arrival reveals sinus tachycardia with heart rate 123, no acute ST or T- wave abnormalities. Chest xray negative for an acute cardiopulmonary process. CT angio of the chest negative for pulmonary embolism. Laboratory data reviewed, WBC 9, hemoglobin 14.4, platelets 361, sodium 130, potassium 4.4, creatinine 0.1, magnesium 2.0, cardiac enzymes negative 3, and T proBNP 33. Current cardiac medications include atorvastatin 20 mg daily, Cardizem 240 mg daily, hydrochlorothiazide 25 mg daily, lisinopril 40 mg daily. He underwent cardiac catheterization in May 2017 which revealed normal coronary arteries with no evidence of obstructive disease. At the time of my exam: CONSTITUTIONAL: Denies fever. Denies chills. EYES: Denies blurred vision. Denies vision changes. Denies eye pain. EARS, NOSE, MOUTH & THROAT: Denies headache. Denies sore throat. Denies ear pain. CARDIOVASCULAR: Denies chest pain. Denies shortness of breath. Denies orthopnea. Denies PND. Denies palpitations. RESPIRATORY: Denies cough. GASTROINTESTINAL: Denies abdominal pain. Denies diarrhea. Denies constipation. Denies nausea. Denies vomiting. MUSCULOSKELETAL: Denies myalgias. INTEGUMENTARY: Denies pruitis. Denies rash. NEUROLOGIC: Denies numbness. Denies tingling. Denies weakness. PSYCHIATRIC: Denies anxiety. Denies depression. ENDOCRINE: Denies fatigue. Denies weight change. Denies polydipsia. Denies polyurina. GENITOURINARY: Denies burning, hematuria or urgency with micturation. HEMATOLOGIC: Denies history of anemia. Denies bleeding. Blood pressure 124/83 heart rate 94 afebrile maintaining oxygen saturation on room air GENERAL: This is a 52-year-old male in no apparent distress at the time of my examination. Obese. HEENT: Head is atraumatic, normocephalic. Pupils are equal, round. Sclerae anicteric. Conjunctivae are clear. Mucous membranes of the mouth are moist. Neck is supple. There is no jugular venous distention. No carotid bruit is heard. LUNGS: Clear to auscultation no wheezes, rales or rhonchi. No chest wall tenderness is noted on palpation or with deep breathing. HEART: Regular rate and rhythm without murmurs, rubs or gallops. S1 and S2 heard. ABDOMEN: Soft, nontender. Bowel sounds are heard. No organomegaly noted. EXTREMITIES: No evidence of peripheral edema and no calf tenderness noted. VASCULAR: Radial and dorsalis pedis pulses palpated, no evidence of clubbing. NEUROLOGIC: Patient is awake, alert and oriented x3. ASSESSMENT Chest pain, atypical. An acute coronary event has ruled out with no EKG evidence of ischemia and negative cardiac enzymes. Palpitations Abdominal pain Hypertension, uncontrolled Dyslipidemia Diabetes mellitus Gastroesophageal reflux disease Obstructive sleep apnea Obesity, BMI 41 PLAN An acute coronary event has been ruled out. Normal coronary arteries per catheterization in May 2017. No evidence of obstructive disease. Obtain 2-D echocardiogram and Doppler study to assess cardiac structure and function. Increase diltiazem to 300 mg daily. Check TSH. Apply 15 day event monitor, report to Dr. Arora. Follow up appointment with Dr. Arora in 4 weeks. Thank you kindly for this consultation. Nurse Practitioner note has been reviewed, I agree with a documented findings and plan of care. Patient was seen and examined. Past Medical History Past Medical History: Asthma, Chest Pain / Angina, Diabetes Mellitus, GERD/ Reflux, Hyperlipidemia, Hypertension, Myocardial Infarction ([place]), Mitral Valve Prolapse (MVP), Pulmonary Embolus (PE), Sleep Apnea/CPAP/BIPAP Additional Past Medical History / Comment(s): Hx kidney stones, UTI with urosepsis, renal cysts, chronic neck and back pain, "herniated, bulging discs, lumbar spine nerve damage" pain sometimes radiates down bilateral legs, R lower leg fx as 13 yr old, concussion. Uses CPAP machine., hx of bleeding ulcer.hx c-diff pt stated approx 4 years ago 2013 Last Myocardial Infarction Date:: 2016 History of Any Multi-Drug Resistant Organisms: C-DIFF, MRSA Date of last positivie culture/infection: 2015 MDRO Source:: left axilla Past Surgical History: Appendectomy, Back Surgery, Cholecystectomy, Heart Catheterization, Hernia Repair Additional Past Surgical History / Comment(s): 2007 back surgery with decompression fusion at [facility], 2011 cardiac cath, multiple ESWL/ ureteral stents/ double J catheters, L inquinal hernia repair, PICC line for ABX for urosepsis-since removed., Hx of c-diff. Past Anesthesia/Blood Transfusion Reactions: No Reported Reaction Smoking Status: Never smoker - Past Family History Father Family Medical History: Chest Pain / Angina Additional Family Medical History / Comment(s): "lung problems" Mother Family Medical History: Cancer, Chest Pain / Angina, Congestive Heart Failure ( CHF), Osteoarthritis (OA), Thyroid Disorder Medications and Allergies Home Medications Medication Instructions Recorded Confirmed Type Diltiazem Cd [Cardizem CD] 240 mg PO DAILY 01/19/14 05/21/18 History Lisinopril 40 mg PO DAILY 08/01/17 05/21/18 History Atorvastatin [Lipitor] 20 mg PO DAILY 08/13/17 05/21/18 History Omeprazole [PriLOSEC] 20 mg PO BID 12/11/17 05/21/18 History HYDROcodone/APAP 10-325MG [[place] 1 tab PO Q6HR PRN 03/25/18 05/21/18 History 10-325] Methocarbamol [Robaxin-750] 750 mg PO TID PRN 03/25/18 05/21/18 History metFORMIN HCL [Glucophage] 500 mg PO BID 04/24/18 05/21/18 History Hydrochlorothiazide [Hydrodiuril] 25 mg PO DAILY 05/21/18 05/21/18 History Allergies Allergy/AdvReac Type Severity Reaction Status Date / Time doxycycline Allergy Swelling Verified 11/12/18 23:46 ketorolac tromethamine Allergy Rash/Hives Verified 05/21/18 23:46 [From Toradol] morphine Allergy Rash/Hives Verified 05/21/18 23:46 metoclopramide HCl AdvReac Dystonic Verified 05/21/18 23:46 [From Reglan] Reaction prochlorperazine edisylate AdvReac Dystonic Verified 05/21/18 23:46 [From Compazine] Reaction prochlorperazine maleate AdvReac Dystonic Verified 05/21/18 23:46 [From Compazine] Reaction Physical Exam Vitals: Vital Signs Temp Pulse Pulse Resp BP BP Pulse Ox 05/22/18 04:00 18 05/22/18 03:36 98.2 F 83 18 135/74 96 05/22/18 00:00 18 05/21/18 23:55 97.7 F 103 H 18 171/97 94 L 05/21/18 22:30 111 H 14 114/95 95 05/21/18 22:13 115 H 16 114/95 100 05/21/18 21:45 138/92 05/21/18 21:30 122 H 16 177/115 94 L 05/21/18 21:00 125 H 19 178/119 91 L 05/21/18 20:37 131 H 05/21/18 20:30 123 H 16 144/111 98 05/21/18 20:24 128 H 05/21/18 20:00 122 H 12 185/112 97 05/21/18 19:52 20 05/21/18 19:37 98.3 F 131 H 20 197/106 98 Intake and Output 05/21/18 05/22/18 05/22/18 22:59 06:59 14:59 Other: Voiding Method Toilet Weight 133.81 kg Results 05/21/18 20:05 05/21/18 20:05 Cardiac Enzymes 05/21/18 05/21/18 05/22/18 Range/Units 20:05 20:05 01:14 AST 29 (17-59) U/L CK-MB (CK-2) 1.1 0.9 (0.0-2.4) ng/mL Troponin I <0.012 <0.012 (0.000-0.034) ng/mL Coagulation 05/21/18 Range/Units 20:05 PT 9.8 (9.0-12.0) sec APTT 24.5 (22.0-30.0) sec CBC 05/21/18 Range/Units 20:05 WBC 9.0 (3.8-10.6) k/uL RBC 5.15 (4.30-5.90) m/uL Hgb 14.4 (13.0-17.5) gm/dL Hct 43.8 (39.0-53.0) % Plt Count 361 (150-450) k/uL Comprehensive Metabolic Panel 05/21/18 Range/Units 20:05 Sodium 138 (137-145) mmol/L Potassium 4.4 (3.5-5.1) mmol/L Chloride 106 (98-107) mmol/L Carbon Dioxide 20 L (22-30) mmol/L BUN 13 (9-20) mg/dL Creatinine 0.81 (0.66-1.25) mg/dL Glucose 145 H (74-99) mg/dL Calcium 10.4 H (8.4-10.2) mg/dL AST 29 (17-59) U/L ALT 45 (21-72) U/L Alkaline Phosphatase 80 (38-126) U/L Total Protein 7.9 (6.3-8.2) g/dL Albumin 4.8 (3.5-5.0) g/dL Current Medications Generic Name Dose Route Start Last Admin Trade Name Freq PRN Reason Stop Dose Admin Albuterol/Ipratropium 3 ml 05/21/18 22:54 Duoneb 0.5 Mg-3 Mg/3 Ml Soln INHALATION RT-QID PRN Shortness Of Breath Or Wheezing Aspirin 325 mg 05/22/18 09:00 Aspirin PO DAILY [facility] Atorvastatin Calcium 20 mg 05/22/18 09:00 Lipitor PO DAILY JOEY Diltiazem HCl 240 mg 05/22/18 09:00 Cardizem Cd PO DAILY JOEY Hydrochlorothiazide 25 mg 05/22/18 09:00 Hydrodiuril PO DAILY JOE[facility] Hydromorphone HCl 1 mg 05/21/18 22:54 05/22/18 06:20 Dilaudid IVP 1 mg Q4HR PRN Administration Pain Insulin Aspart 0 unit 05/22/18 07:30 Novolog SQ ACHS JOEY Protocol Lorazepam 1 mg 05/21/18 22:54 Ativan IV Q4HR PRN Anxiety Methylprednisolone Sodium Succinate 60 mg 05/22/18 00:00 05/22/18 05:57 Solu-Medrol IV 60 mg Q6HR [facility] Administration Nitroglycerin 0.4 mg 05/21/18 22:53 Nitrostat SUBLINGUAL Q5M PRN Chest Pain Non-Formulary Medication 40 mg 05/22/18 09:00 Lisinopril [Lisinopril] PO DAILY [facility] Intake and Output 05/21/18 05/22/18 05/22/18 22:59 06:59 14:59 Other: Voiding Method Toilet Weight 133.81 kg 05/21/18 20:05 05/21/18 20:05
[2018-05-22] MEDS ORDERED: HYDROcodone/APAP 10-325MG 1 EACH TAB PO PRN (09:48)
[2018-05-22 11:39] VITALS: BP 143/83; PULSE 105; TEMP 98.4
--- NOTE | 2018-05-22 12:04 | ECHOF ---
Referral Reason:cp MEASUREMENTS -------- HEIGHT: 180.3 cm WEIGHT: 133.8 kg BP: 135/78 RVIDd: 3.2 cm (< 3.3) IVSd: 1.3 cm (0.6 - 1.1) LVIDd: 5.4 cm (3.9 - 5.3) LVPWd: 1.2 cm (0.6 - 1.1) IVSs: 1.9 cm LVIDs: 3.5 cm LVPWs: 1.6 cm LA Diam: 3.5 cm (2.7 - 3.8) LAESV Index (A-L): 25.63 ml/m Ao Diam: 3.6 cm (2.0 - 3.7) AV Cusp: 2.4 cm (1.5 - 2.6) MV EXCURSION: 11.432 mm (> 18.000) MV EF SLOPE: 43 mm/s (70 - 150) EPSS: 0.8 cm MV E Home: 1.19 m/s MV DecT: 284 ms MV A Home: 1.28 m/s MV E/A Ratio: 0.93 AV maxP.93 mmHg AV meanP.94 mmHg FINDINGS -------- Resting tachycardia (HR>100bpm). This was a technically difficult study with suboptimal apical views. The left ventricular size is normal. There is mild concentric left ventricular hypertrophy. Overa ll left ventricular systolic function is normal with, an EF between 55 - 60 %. The right ventricle is normal in size. Normal LA size by volume 22+/-6 ml/m2. The right atrium is normal in size. Lumason used The aortic valve is trileaflet and appears structurally normal. There is trace to mild mitral regurgitation. The tricuspid valve appears structurally normal. Trace/mild (physiologic) pulmonic regurgitation. The aortic root size is normal. IVC Not well visulized. There is no pericardial effusion. CONCLUSIONS -------- 1. Resting tachycardia (HR>100bpm). 2. This was a technically difficult study with suboptimal apical views. 3. The left ventricular size is normal. 4. There is mild concentric left ventricular hypertrophy. 5. Overall left ventricular systolic function is normal with, an EF between 55 - 60 %. 6. The right ventricle is normal in size. 7. Normal LA size by volume 22+/-6 ml/m2. 8. The right atrium is normal in size. 9. Lumason used 10. The aortic valve is trileaflet and appears structurally normal. 11. There is trace to mild mitral regurgitation. 12. The tricuspid valve appears structurally normal. 13. Trace/mild (physiologic) pulmonic regurgitation. 14. The aortic root size is normal. 15. IVC Not well visulized. 16. There is no pericardial effusion. [employer]SEMBLER: Lyudmila Davidson RDCS
[2018-05-22 12:06] LABS: Glucose,Whole Blood 222 mg/dL (75-99)
[2018-05-22 12:40] LABS: Hemoglobin A1C 6.8 % (4.0-6.0)
--- NOTE | 2018-05-22 13:40 | P.HPIM ---
History of Present Illness 52-year-old gentleman with known history of atrial fibrillation came in with chest discomfort tightness sensation radiating to the upper abdomen along with nausea some shortness of breath and palpitations nonpleuritic pain denied any fever chills. Patient had a CAT scan of the abdomen and pelvis along with CAT scan of the chest CAT scan of the chest did not show any pulmonary embolism abdominal CAT scan is not impressive for any acute abnormality. was evaluated by cardiology because of palpitations and the heart racing symptoms along with had his tachycardia and increased his Cardizem dose patient's LDL is elevated as well statin dose was increased and echocardiac was opted by cardiology the cleared him for for discharge. Patient may have gastroesophageal reflux disease because of which I advised him to take Prilosec [id number] 20 mg twice a day for 14 days and received that improves his symptoms his pain is moderate in severity and constant. Review of Systems REVIEW OF SYSTEMS: CONSTITUTIONAL: No fever, no malaise, no fatigue. HEENT: No recent visual problems or hearing problems. Denied any sore throat. CARDIOVASCULAR: No orthopnea, PND, no palpitations, no syncope. PULMONARY: No shortness of breath, no cough, no hemoptysis. GASTROINTESTINAL: No diarrhea, no nausea, no vomiting, Normoactive bowel sounds. NEUROLOGICAL: No headaches, no weakness, no numbness. HEMATOLOGICAL: Denies any bleeding or petechiae. GENITOURINARY: Denies any burning micturition, frequency, or urgency. MUSCULOSKELETAL/RHEUMATOLOGICAL: Denies any joint pain, swelling, or any muscle pain. ENDOCRINE: Denies any polyuria or polydipsia. The rest of the 14-point review of systems is negative. Past Medical History Past Medical History: Asthma, Chest Pain / Angina, Diabetes Mellitus, GERD/ Reflux, Hyperlipidemia, Hypertension, Myocardial Infarction ([place]), Mitral Valve Prolapse (MVP), Pulmonary Embolus (PE), Sleep Apnea/CPAP/BIPAP Additional Past Medical History / Comment(s): Hx kidney stones, UTI with urosepsis, renal cysts, chronic neck and back pain, "herniated, bulging discs, lumbar spine nerve damage" pain sometimes radiates down bilateral legs, R lower leg fx as 13 yr old, concussion. Uses CPAP machine., hx of bleeding ulcer.hx c-diff pt stated approx 4 years ago 2013 Last Myocardial Infarction Date:: 2017 History of Any Multi-Drug Resistant Organisms: C-DIFF, MRSA Date of last positivie culture/infection: 2016 MDRO Source:: left axilla Past Surgical History: Appendectomy, Back Surgery, Cholecystectomy, Heart Catheterization, Hernia Repair Additional Past Surgical History / Comment(s): 2007 back surgery with decompression fusion at [facility], 2011 cardiac cath, multiple ESWL/ ureteral stents/ double J catheters, L inquinal hernia repair, PICC line for ABX for urosepsis-since removed., Hx of c-diff. Past Anesthesia/Blood Transfusion Reactions: No Reported Reaction Smoking Status: Never smoker - Past Family History Father Family Medical History: Chest Pain / Angina Additional Family Medical History / Comment(s): "lung problems" Mother Family Medical History: Cancer, Chest Pain / Angina, Congestive Heart Failure ( CHF), Osteoarthritis (OA), Thyroid Disorder Medications and Allergies Home Medications Medication Instructions Recorded Confirmed Type Lisinopril 40 mg PO DAILY 08/01/17 05/21/18 History Omeprazole [PriLOSEC] 20 mg PO BID 12/11/17 05/21/18 History HYDROcodone/APAP 10-325MG [[place] 1 tab PO Q6HR PRN 03/25/18 05/21/18 History 10-325] Methocarbamol [Robaxin-750] 750 mg PO TID PRN 03/25/18 05/21/18 History metFORMIN HCL [Glucophage] 500 mg PO BID 04/24/18 05/21/18 History Hydrochlorothiazide [Hydrodiuril] 25 mg PO DAILY 05/21/18 05/21/18 History Atorvastatin [Lipitor] 40 mg PO DAILY #90 tab 05/22/18 Rx Diltiazem Cd [Cardizem CD] 300 mg PO DAILY #90 cap.er.24h 05/22/18 Rx Allergies Allergy/AdvReac Type Severity Reaction Status Date / Time doxycycline Allergy Swelling Verified 05/21/18 23:46 ketorolac tromethamine Allergy Rash/Hives Verified 05/21/18 23:46 [From Toradol] morphine Allergy Rash/Hives Verified 05/21/18 23:46 metoclopramide HCl AdvReac Dystonic Verified 05/21/18 23:46 [From Reglan] Reaction prochlorperazine edisylate AdvReac Dystonic Verified 05/21/18 23:46 [From Compazine] Reaction prochlorperazine maleate AdvReac Dystonic Verified 05/21/18 23:46 [From Compazine] Reaction Physical Exam Vitals: Vital Signs Temp Pulse Pulse Resp BP BP Pulse Ox 05/22/18 11:38 98.4 F 105 H 18 143/83 95 05/22/18 09:00 18 05/22/18 07:35 98.3 F 94 18 124/83 95 05/22/18 04:00 18 05/22/18 03:36 98.2 F 83 18 135/74 96 05/22/18 00:00 18 05/21/18 23:55 97.7 F 103 H 18 171/97 94 L 05/21/18 22:30 111 H 14 114/95 95 05/21/18 22:13 115 H 16 114/95 100 05/21/18 21:45 138/92 05/21/18 21:30 122 H 16 177/115 94 L 05/21/18 21:00 125 H 19 178/119 91 L 05/21/18 20:37 131 H 05/21/18 20:30 123 H 16 144/111 98 05/21/18 20:24 128 H 05/21/18 20:00 122 H 12 185/112 97 05/21/18 19:52 20 05/21/18 19:37 98.3 F 131 H 20 197/106 98 Intake and Output 05/21/18 05/22/18 05/22/18 22:59 06:59 14:59 Intake Total 222 Balance 222 Intake: Oral 222 Other: Voiding Method Toilet Weight 133.81 kg PHYSICAL EXAMINATION: GENERAL: The patient is alert and oriented x3, not in any acute distress. Morbidly obese HEENT: Pupils are round and equally reacting to light. EOMI. No scleral icterus. No conjunctival pallor. Normocephalic, atraumatic. No pharyngeal erythema. No thyromegaly. CARDIOVASCULAR: S1 and S2 present. No murmurs, rubs, or gallops. PULMONARY: Chest is clear to auscultation, no wheezing or crackles. ABDOMEN: Soft, nontender, nondistended, normoactive bowel sounds. No palpable organomegaly. MUSCULOSKELETAL: No joint swelling or deformity. EXTREMITIES: No cyanosis, clubbing, or pedal edema. NEUROLOGICAL: Gross neurological examination did not reveal any focal deficits. SKIN: No rashes. Results CBC & Chem 7: 05/21/18 20:05 05/21/18 20:05 Labs: Abnormal Lab Results - Last 24 Hours (Table) 05/21/18 05/21/18 05/22/18 Range/Units 20:05 20:05 01:14 Carbon Dioxide 20 L (22-30) mmol/L Glucose 145 H (74-99) mg/dL POC Glucose (mg/dL) (75-99) mg/dL Hemoglobin A1c (4.0-6.0) % Calcium 10.4 H (8.4-10.2) mg/dL Total Creatine Kinase 286 H 228 H (55-170) U/L Triglycerides (<150) mg/dL Cholesterol (<200) mg/dL LDL Cholesterol, Calc (0-99) mg/dL HDL Cholesterol (40-60) mg/dL 05/22/18 05/22/18 05/22/18 Range/Units 01:14 01:14 06:53 Carbon Dioxide (22-30) mmol/L Glucose (74-99) mg/dL POC Glucose (mg/dL) 223 H (75-99) mg/dL Hemoglobin A1c 6.8 H (4.0-6.0) % Calcium (8.4-10.2) mg/dL Total Creatine Kinase (55-170) U/L Triglycerides 347 H (<150) mg/dL Cholesterol 250 H (<200) mg/dL LDL Cholesterol, Calc 145 H (0-99) mg/dL HDL Cholesterol 36 L (40-60) mg/dL 05/22/18 05/22/18 Range/Units 08:00 12:04 Carbon Dioxide (22-30) mmol/L Glucose (74-99) mg/dL POC Glucose (mg/dL) 222 H (75-99) mg/dL Hemoglobin A1c (4.0-6.0) % Calcium (8.4-10.2) mg/dL Total Creatine Kinase 198 H (55-170) U/L Triglycerides (<150) mg/dL Cholesterol (<200) mg/dL LDL Cholesterol, Calc (0-99) mg/dL HDL Cholesterol (40-60) mg/dL Thrombosis Risk Factor Assmnt - Choose All That Apply Any of the Below Risk Factors Present?: Yes Each Factor Represents 1 point: Abnormal pulmonary function (COPD), Age 41-60 years, Obesity (BMI >25) Other Risk Factors: Yes Each Risk Factor Represents 3 Points: History of DVT/PE Other congenital or acquired thrombophilia - If yes, enter type in comment: No Thrombosis Risk Factor Assessment Total Risk Factor Score: 6 Thrombosis Risk Factor Assessment Level: High Risk Assessment and Plan Plan: -t atypical chest pain: Rule out acute coronary syndromes was a valid by cardiology, cleared for discharge echocardiogram was obtained which did not show any wall motion abnormalities normal ejection fraction -Abdominal pain: May be gastritis Prilosec as mentioned above, CAT scan of the abdomen did not show any other significant abnormality -Rule out pulmonary embolism -Palpitations: Patient was tachycardic for which patient the was given Cardizem appears to be sinus tachycardia dose of 4 Cardizem was increased. Patient is being discharged on Holter monitor -Hypertension -Hyperlipidemia -Type 2 diabetes mellitus -Gastroesophageal reflux disease -Obstructive sleep apnea morbid obesity For other medication problems which are chronic, not changing any of the medications patient will follow with primary care physician in about 3-7 days. And follow with Dr. Naik as an outpatient.
--- NOTE | 2018-05-22 13:40 | P.DS ---
Providers Date of admission: 05/21/18 22:56 Attending physician: Reid Deal Consults: 05/21/18 22:53 Consult Physician Urgent Consulting Provider: Saira Oliveira Consult Reason/Comments: cp Do you want consulting provider notified?: Yes Primary care physician: Trav Muniz [facility] Course: Please refer to my HPI Patient Condition at Discharge: Undetermined Plan - Discharge Summary Discharge Rx Participant: No New Discharge Prescriptions: New Diltiazem Cd [Cardizem CD] 300 mg PO DAILY #90 cap.er.24h Atorvastatin [Lipitor] 40 mg PO DAILY #90 tab Discontinued Diltiazem Cd [Cardizem CD] 240 mg PO DAILY Atorvastatin [Lipitor] 20 mg PO DAILY No Action Lisinopril 40 mg PO DAILY Omeprazole [PriLOSEC] 20 mg PO BID HYDROcodone/APAP 10-325MG [[place] 10-325] 1 tab PO Q6HR PRN PRN Reason: Pain Methocarbamol [Robaxin-750] 750 mg PO TID PRN PRN Reason: Pain metFORMIN HCL [Glucophage] 500 mg PO BID Hydrochlorothiazide [Hydrodiuril] 25 mg PO DAILY Discharge Medication List Lisinopril 40 mg PO DAILY 08/01/17 [History] Omeprazole [PriLOSEC] 20 mg PO BID 12/11/17 [History] HYDROcodone/APAP 10-325MG [[place] 10-325] 1 tab PO Q6HR PRN 03/25/18 [History] Methocarbamol [Robaxin-750] 750 mg PO TID PRN 03/25/18 [History] metFORMIN HCL [Glucophage] 500 mg PO BID 04/24/18 [History] Hydrochlorothiazide [Hydrodiuril] 25 mg PO DAILY 05/21/18 [History] Atorvastatin [Lipitor] 40 mg PO DAILY #90 tab 05/22/18 [Rx] Diltiazem Cd [Cardizem CD] 300 mg PO DAILY #90 cap.er.24h 05/22/18 [Rx] Follow up Appointment(s)/Referral(s): Miguel Arora MD [STAFF PHYSICIAN] - 06/19/18 1:30 pm Trav Muniz MD [Primary Care Provider] - 1-2 days Patient Instructions/Handouts: Chest Pain (ED) Discharge Disposition: HOME SELF-CARE
[2018-05-23] MEDS ORDERED: ATORVASTATIN 40 MG TAB PO SCH (09:00)
== END 2018-05-22 13:45 | disposition home or self-care (01) ==
LOC: EC 19:32 → 1SOBS 22:56
PROVIDERS: ADMIT Hospitalist; ATTEND Hospitalist
DX: R07.89 Other chest pain (principal); R10.13 Epigastric pain; R00.0 Tachycardia, unspecified; I10 Essential (primary) hypertension; E78.5 Hyperlipidemia, unspecified; E11.9 Type 2 diabetes mellitus without complications; K21.9 Gastro-esophageal reflux disease without esophagitis; G47.33 Obstructive sleep apnea (adult) (pediatric); E66.01 Morbid (severe) obesity due to excess calories; Z68.41 Body mass index [BMI] 40.0-44.9, adult; J45.909 Unspecified asthma, uncomplicated; I34.1 Nonrheumatic mitral (valve) prolapse; G89.29 Other chronic pain; M54.2 Cervicalgia; M54.9 Dorsalgia, unspecified; Z99.89 Dependence on other enabling machines and devices; Z79.84 Long term (current) use of oral hypoglycemic drugs; Z79.899 Other long term (current) drug therapy; Z88.1 Allergy status to other antibiotic agents; Z88.5 Allergy status to narcotic agent; Z88.8 Allergy status to other drugs, medicaments and biological substances; Z86.711 Personal history of pulmonary embolism; Z87.442 Personal history of urinary calculi; Z87.440 Personal history of urinary (tract) infections; Z86.14 Personal history of Methicillin resistant Staphylococcus aureus infection; Z90.89 Acquired absence of other organs; Z90.49 Acquired absence of other specified parts of digestive tract; Z98.1 Arthrodesis status; I25.2 Old myocardial infarction; Z87.820 Personal history of traumatic brain injury; Z86.79 Personal history of other diseases of the circulatory system; Z82.49 Family history of ischemic heart disease and other diseases of the circulatory system; Z82.61 Family history of arthritis; Z83.49 Family history of other endocrine, nutritional and metabolic diseases; Z83.6 Family history of other diseases of the respiratory system; Z80.9 Family history of malignant neoplasm, unspecified
CPT/HCPCS: 96376 ×2; 96361; 96374; 96375; 99291; 36415; 94640; 93005; 93270; 93271; 83880; 80061; 80053; 84443; 82550 ×2; 82553 ×2; 83690; 83735; 84484 ×2; 85025; 85610; 85730; 83036; 71046; 71275; 74177; G0378 ×2; C8929; J2930 ×2; J1170 ×2; Q9950; Q9967; 93306

== ENCOUNTER 2018-08-11 15:42 | Inpatient (IN) | payer OTHER ==
[2018-08-11] MEDS ORDERED: SODIUM CHLORIDE 0.9% 1,000 ML IV STA (15:48)
[2018-08-11] MEDS ORDERED: NITROGLYCERIN SL TABS 0.4 MG TAB SUBLINGUAL STA ×2 (15:48)
--- NOTE | 2018-08-11 15:54 | ED ---
Chest Pain HPI - General Stated Complaint: CHEST PAIN Time Seen by Provider: 08/11/18 15:42 Source: patient, EMS, RN notes reviewed, old records reviewed Mode of arrival: EMS Limitations: no limitations - History of Present Illness Initial Comments: This is a 52-year-old male with a history of cholecystectomy in the past who states he been having some intermittent episodes of chest pain since May of this past year who states he had the onset today of chest pain it seemed to resolved and he walked to his mailbox and back which is a quarter mile he started developing retrosternal chest pain or radiated to his back and neck area. It was 6/10 squeezing-type pain. He was given 324 aspirin and one nitroglycerin by paramedics there is some improvement in his squeezing pain he still has some discomfort however at this time. Some shortness of breath no fevers chills or sweats no nausea vomiting. He did take extra blood pressure medication thinking this would help but did not thus far MD Complaint: chest pain - Related Data Home Medications Medication Instructions Recorded Confirmed Lisinopril 40 mg PO DAILY 08/01/17 08/11/18 Omeprazole [PriLOSEC] 20 mg PO BID 12/11/17 08/11/18 HYDROcodone/APAP 10-325MG [[place] 1 tab PO Q6HR PRN 03/25/18 08/11/18 10-325] Methocarbamol [Robaxin-750] 750 mg PO TID PRN 03/25/18 08/11/18 metFORMIN HCL [Glucophage] 500 mg PO BID 04/24/18 08/11/18 Hydrochlorothiazide [Hydrodiuril] 25 mg PO DAILY 05/21/18 08/11/18 Previous Rx's Medication Instructions Recorded Atorvastatin [Lipitor] 40 mg PO DAILY #90 tab 05/22/18 Diltiazem Cd [Cardizem CD] 300 mg PO DAILY #90 cap.er.24h 05/22/18 Allergies Allergy/AdvReac Type Severity Reaction Status Date / Time doxycycline Allergy Swelling Verified 08/11/18 16:15 ketorolac tromethamine Allergy Rash/Hives Verified 08/11/18 16:15 [From Toradol] morphine Allergy Rash/Hives Verified 08/11/18 16:15 metoclopramide HCl AdvReac Dystonic Verified 08/11/18 16:15 [From Reglan] Reaction prochlorperazine edisylate AdvReac Dystonic Verified 08/11/18 16:15 [From Compazine] Reaction prochlorperazine maleate AdvReac Dystonic Verified 08/11/18 16:15 [From Compazine] Reaction Review of Systems ROS Statement: Those systems with pertinent positive or pertinent negative responses have been documented in the HPI. ROS Other: All systems not noted in ROS Statement are negative. EKG Findings - EKG Results: EKG: interpreted by ERMD, sinus rhythm (Sinus tachycardia with a rate 126. Interval 148 QRS duration 108 QT since QTC of 412/96 and complete right bundle- branch block pattern this is consistent with that submitted by EMS today this also is consistent with an EKG submitted from 05/21/2018) Past Medical History Past Medical History: Asthma, Chest Pain / Angina, Diabetes Mellitus, GERD/ Reflux, Hyperlipidemia, Hypertension, Myocardial Infarction ([place]), Mitral Valve Prolapse (MVP), Pulmonary Embolus (PE), Sleep Apnea/CPAP/BIPAP Additional Past Medical History / Comment(s): Hx kidney stones, UTI with urosepsis, renal cysts, chronic neck and back pain, "herniated, bulging discs, lumbar spine nerve damage" pain sometimes radiates down bilateral legs, R lower leg fx as 13 yr old, concussion. Uses CPAP machine., hx of bleeding ulcer.hx c-diff pt stated approx 4 years ago 2013 Last Myocardial Infarction Date:: 2011 History of Any Multi-Drug Resistant Organisms: MRSA Date of last positivie culture/infection: 2015 MDRO Source:: left axilla Past Surgical History: Appendectomy, Back Surgery, Cholecystectomy, Heart Catheterization, Hernia Repair Additional Past Surgical History / Comment(s): 2007 back surgery with decompression fusion at [facility], 2011 cardiac cath, multiple ESWL/ ureteral stents/ double J catheters, L inquinal hernia repair, PICC line for ABX for urosepsis-since removed., Hx of c-diff. Past Anesthesia/Blood Transfusion Reactions: No Reported Reaction Past Psychological History: No Psychological Hx Reported Smoking Status: Never smoker Past Alcohol Use History: None Reported Past Drug Use History: None Reported - Past Family History Father Family Medical History: Chest Pain / Angina Additional Family Medical History / Comment(s): "lung problems" Mother Family Medical History: Cancer, Chest Pain / Angina, Congestive Heart Failure ( CHF), Osteoarthritis (OA), Thyroid Disorder General Exam - General Exam Comments Initial Comments: This is a well-developed well-nourished awake alert oriented 3 male Limitations: no limitations General appearance: alert, anxious Head exam: Present: atraumatic, normocephalic, normal inspection Eye exam: Present: normal appearance, PERRL, EOMI. Absent: scleral icterus, conjunctival injection, periorbital swelling ENT exam: Present: normal exam, mucous membranes moist Neck exam: Present: normal inspection, full ROM, other (No stridor JVD or bruits ). Absent: tenderness, meningismus, lymphadenopathy Respiratory exam: Present: normal lung sounds bilaterally. Absent: respiratory distress, wheezes, rales, rhonchi, stridor, chest wall tenderness Cardiovascular Exam: Present: normal rhythm, tachycardia, normal heart sounds. Absent: systolic murmur, diastolic murmur, rubs, gallop, clicks GI/Abdominal exam: Present: soft, normal bowel sounds. Absent: distended, tenderness, guarding, rebound, rigid Extremities exam: Present: normal inspection, full ROM, normal capillary refill. Absent: tenderness, pedal edema, joint swelling, calf tenderness Back exam: Present: normal inspection Neurological exam: Present: alert, oriented X3, CN II-XII intact Psychiatric exam: Present: normal affect, normal mood Skin exam: Present: warm, dry, intact, normal color. Absent: rash Course Vital Signs 08/11/18 08/11/18 08/11/18 15:46 16:00 17:25 Temperature 98.9 F Pulse Rate 121 H 115 H 108 H Respiratory 24 22 24 Rate Blood Pressure 143/133 143/113 131/89 O2 Sat by Pulse 98 95 96 Oximetry Chest Pain MDM - MDM Patient did get some relief from a component of the pain in the extremes. This will work up however is negative he will be admitted for evaluation by cardiology. I did discuss the case with Dr. Anderson Disposition Clinical Impression: Chest pain, Angina pectoris Disposition: ADMITTED IP TO THIS [facility] Condition: Stable Referrals: Trav Muniz MD [Primary Care Provider] - 1-2 days
--- NOTE | 2018-08-11 16:31 | XR ---
EXAMINATION TYPE: XR chest 2V DATE OF EXAM: 08/11/2018 COMPARISON: Chest x-ray and CT May 21, 2018. HISTORY: Chest pain. TECHNIQUE: Frontal and lateral views of the chest are obtained. FINDINGS: There is no focal air space opacity, pleural effusion, or pneumothorax seen. The cardiac silhouette size is within normal limits. Artificial metallic discs in the lower cervical spine are re demonstrated. IMPRESSION: No acute cardiopulmonary process.
[2018-08-11 16:36] LABS: Basophils % (A) 0 %; Eosinophils # (A) 0.3 k/uL (0-0.7); Eosinophils % (A) 4 %; HCT 40.4 % (39.0-53.0); HGB 13.4 gm/dL (13.0-17.5); Lymphocytes # (A) 1.6 k/uL (1.0-4.8); Lymphocytes % (A) 20 %; MCH 27.9 pg (25.0-35.0); MCHC 33.1 g/dL (31.0-37.0); MCV 84.2 fL (80.0-100.0); Mean Platelet Volume 6.4; Monocytes # (A) 0.4 k/uL (0-1.0); Monocytes % (A) 5 %; Neutrophils # (A) 5.6 k/uL (1.3-7.7); Neutrophils % (A) 69 %; Platelet Count 332 k/uL (150-450); RDW 14.4 % (11.5-15.5)
[2018-08-11 16:50] LABS: D-Dimer 0.31 mg/L FEU (<0.60); INR 0.9 (<1.2); Partial Thromboplastin Time 23.1 sec (22.0-30.0); Prothrombin Time 9.5 sec (9.0-12.0)
[2018-08-11 16:56] LABS: ALT 41 U/L (21-72); AST 33 U/L (17-59); Albumin 4.6 g/dL (3.5-5.0); Alkaline Phosphatase 82 U/L (38-126); Amylase 77 U/L (30-110); Anion Gap 11 mmol/L; Blood Urea Nitrogen 11 mg/dL (9-20); Calcium 9.6 mg/dL (8.4-10.2); Carbon Dioxide 23 mmol/L (22-30); Chloride 108 mmol/L (98-107); Creatine Kinase 317 U/L (55-170); Glucose 170 mg/dL (74-99); Lipase 58 U/L (23-300); Potassium 3.8 mmol/L (3.5-5.1); Sodium 142 mmol/L (137-145); Total Bilirubin 0.5 mg/dL (0.2-1.3)
[2018-08-11 17:08] LABS: Creatine Kinase MB 1.1 ng/mL (0.0-2.4); Troponin I <0.012 ng/mL (0.000-0.034)
[2018-08-11] MEDS ORDERED: HYDROmorphone 1 MG/ML 1 ML SYRINGE IVP STA (17:18)
[2018-08-11] MEDS ORDERED: HEPARIN SODIUM,PORCINE 5,000 UNIT/ML 1 ML VIAL IV ONE (18:14)
[2018-08-11] MEDS ORDERED: NITROGLYCERIN SL TABS 0.4 MG TAB SUBLINGUAL PRN (18:14)
[2018-08-11] MEDS ORDERED: HEPARIN SOD,PORK IN 0.45% NACL 25,000 UNIT in 0.45% NACL 1 250ML.BAG IV SCH (18:15)
[2018-08-11 19:35] VITALS: BMI 43.3
[2018-08-11 19:58] LABS: Glucose,Whole Blood 171 mg/dL (75-99)
[2018-08-11] MEDS: INSULIN ASPART (NovoLOG) 100 UNIT/ML VIAL SQ SCH (21:21)
[2018-08-11] MEDS: HYDROcodone/APAP 10-325MG 1 EACH TAB PO PRN (21:24)
[2018-08-11] MEDS: metFORMIN 500 MG TAB PO SCH (21:24)
[2018-08-11] MEDS: PANTOPRAZOLE 40 MG TABLET PO SCH (21:24)
[2018-08-11] MEDS: SODIUM CHLORIDE 0.9% 1,000 ML IV SCH (21:27)
[2018-08-11] MEDS: METHOCARBAMOL 750 MG TAB PO PRN (22:53)
[2018-08-11] MEDS: NITROGLYCERIN OINT 1 INCH/GM PACKET TOPICAL SCH (23:36)
[2018-08-12] MEDS ORDERED: HYDROmorphone 0.5 MG/0.5 ML SYRINGE IM STA (00:19)
[2018-08-12] MEDS ORDERED: HYDROmorphone 0.5 MG/0.5 ML SYRINGE IVP STA ×2 (00:23→10:48)
[2018-08-12] MEDS ORDERED: HYDROmorphone 1 MG/ML 1 ML SYRINGE ONE (00:30)
[2018-08-12 00:46] LABS: Creatine Kinase 263 U/L (55-170)
[2018-08-12] MEDS ORDERED: HEPARIN SODIUM,PORCINE 5,000 UNIT/ML 1 ML VIAL ONE (00:57)
[2018-08-12] MEDS ORDERED: HEPARIN SODIUM,PORCINE 5,000 UNIT/ML 1 ML VIAL IV PRN (00:58)
[2018-08-12 00:59] LABS: Creatine Kinase MB 0.9 ng/mL (0.0-2.4); Troponin I <0.012 ng/mL (0.000-0.034)
[2018-08-12 03:04] LABS: Cholesterol 215 mg/dL (<200); HDL Cholesterol 33 mg/dL (40-60); LDL Cholesterol,Calculated 139 mg/dL (0-99); Triglycerides 213 mg/dL (<150)
[2018-08-12 04:28] LABS: Creatine Kinase 245 U/L (55-170)
[2018-08-12] MEDS: HYDROcodone/APAP 10-325MG 1 EACH TAB PO PRN ×4 (04:30→21:48)
[2018-08-12] MEDS: NITROGLYCERIN OINT 1 INCH/GM PACKET TOPICAL SCH (04:31)
[2018-08-12 04:41] LABS: Troponin I <0.012 ng/mL (0.000-0.034)
[2018-08-12 06:49] LABS: Glucose,Whole Blood 128 mg/dL (75-99)
[2018-08-12] MEDS: METHOCARBAMOL 750 MG TAB PO PRN (06:49)
[2018-08-12] MEDS: INSULIN ASPART (NovoLOG) 100 UNIT/ML VIAL SQ SCH ×4 (07:26→20:04)
[2018-08-12] MEDS: metFORMIN 500 MG TAB PO SCH ×2 (08:51→20:16)
[2018-08-12] MEDS: ATORVASTATIN 40 MG TAB PO SCH (08:52)
[2018-08-12] MEDS: HYDROCHLOROTHIAZIDE 25 MG TAB PO SCH (08:52)
[2018-08-12] MEDS: DILTIAZEM CD 300 MG CAP.ER.24H PO SCH (08:52)
[2018-08-12] MEDS: LISINOPRIL 20 MG TAB PO SCH (08:52)
[2018-08-12] MEDS: PANTOPRAZOLE 40 MG TABLET PO SCH ×2 (08:52→20:16)
[2018-08-12] MEDS: ASPIRIN 81 MG PO SCH (08:52)
[2018-08-12] MEDS ORDERED: ASPIRIN 325 MG TAB PO SCH (09:00)
--- NOTE | 2018-08-12 10:59 | CONS ---
CONSULTATION HISTORY: Mr. Hager is a 52-year-old male who presented with symptoms of chest discomfort. He is followed usually with Dr. Arora. Has a history of hypertension, hyperlipidemia, diabetes mellitus, but no history of smoking. He has been having discomfort in the chest, worse yesterday. He felt it is may be a little bit worse when he was exerting himself, associated with dyspnea. The discomfort lasted for few hours. He had some dyspnea with it as well as dizziness and mild nausea. He had some palpitations. The patient has been feeling progressively fatigued. He has no history of significant peripheral edema. No PND. No orthopnea. No syncope. He has underwent cardiac catheterization May 2017 that revealed no evidence of obstructive coronary disease. An echocardiogram in May 2018 showed a preserved ventricular size and systolic function. His coronary risk factors are positive for hypertension, hyperlipidemia, and diabetes. MEDICATIONS: Include Glucophage, Prilosec 20 mg twice a day, Robaxin, lisinopril 40 mg daily, hydrochlorothiazide 25 mg daily, diltiazem CD 300 mg daily and atorvastatin 40 mg daily. REVIEW OF SYSTEMS: RESPIRATORY SYSTEM: He has some history of dyspnea. Occasional seasonal asthma. GI SYSTEM: He had remote history of GI bleeding. No recent episodes. No nausea, no vomiting. SYSTEM: No dysuria or hematuria. NERVOUS SYSTEM: No history of stroke or seizure. PHYSICAL EXAMINATION: 52-year-old male, alert, oriented, no apparent distress, obese. Blood pressure 135/70 with a heart in the 80s. HEAD: Normocephalic. Eyes sclerae anicteric. NECK: Good upstroke. No bruit, no jugular venous distention. LUNGS: Clear to auscultation. HEART: Regular rhythm S1, S2. No S3. No S4. No rub. ABDOMEN: Soft, obese, nontender. Positive bowel sounds no megaly. EXTREMITIES: No edema. Intact distal pulses. LAB DATA: Troponin less than 0.012. Cholesterol 215, LDL 139. BUN and creatinine of 11 and 0.77. Hemoglobin of 13.4. Chest x-ray shows no acute infiltrate. EKG revealed a sinus mechanism, rate of [address]-T wave changes. IMPRESSION: 1. Chest discomfort, has atypical features for ischemic heart disease, probably noncardiac. 2. History of hypertension. 3. Hyperlipidemia. 4. Diabetes mellitus. 5. Obesity. RECOMMENDATIONS: From the cardiac standpoint, I see no evidence of active ischemic disease. The patient has underwent cardiac catheterization about a year ago that was unremarkable and his systolic function is normal. From the cardiac standpoint, I will increase his activity. I would expect he should be able to be discharged home soon and follow up as an outpatient with Dr. Arora as scheduled in the next 2 weeks. No further cardiac workup will be needed at this point. Thank you for this consult. MAYA / JORDANN: [id number] /
--- NOTE | 2018-08-12 11:03 | P.HPIM ---
History of Present Illness This is a pleasant 52 years old male with past medical history of possible coronary artery disease, negative stress test in 2017, asthma, diabetes mellitus , GERD, hyperlipidemia, hypertension, mitral valve prolapse, PE, sleep apnea. He presents because of chest pain of one-day duration. He is a patient of Dr. Jane bynum and follow-up with Dr. Arora the fine jewelry sales associate however he missed his appointment last week and he scheduled again for 08/21/2018. Patient states yesterday he woke up around 10:00 in the morning with central chest pain radiating to the back, left jaw and left shoulder, felt sick wheezing and in the deep parts he felt that is like sharp like a knife. 47/10 in severity. When it was started yesterday it was mild, when he went out to get his mail he noticed that it become more severe with exertion he opted to risk for 1 hours and that did not help relieve the pain so decided to come to the hospital. Patient says that his lately has been having worsening exertional dyspnea associated with some dizziness and dry cough however he denies phlegm or hemoptysis. 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 No alcohol or illicit tracts. CBC and BMP were unremarkable. Lipid profile slightly elevated. Chest x-ray: No acute process per Radiologist. Patient has been already evaluated by fine jewelry sales associate and cleared him for discharge from their perspective. Review of Systems CONSTITUTIONAL: No fever, no malaise, no fatigue. HEENT: No recent visual problems or hearing problems. Denied any sore throat. CARDIOVASCULAR: No orthopnea, PND, no palpitations, no syncope. PULMONARY: No shortness of breath, no cough, no hemoptysis. GASTROINTESTINAL: No diarrhea, no nausea, no vomiting, no abdominal pain. Normoactive bowel sounds. NEUROLOGICAL: No headaches, no weakness, no numbness. HEMATOLOGICAL: Denies any bleeding or petechiae. GENITOURINARY: Denies any burning micturition, frequency, or urgency. MUSCULOSKELETAL/RHEUMATOLOGICAL: Denies any joint pain, swelling, or any muscle pain. ENDOCRINE: Denies any polyuria or polydipsia. Past Medical History Past Medical History: Asthma, Chest Pain / Angina, Diabetes Mellitus, GERD/ Reflux, Hyperlipidemia, Hypertension, Myocardial Infarction ([place]), Mitral Valve Prolapse (MVP), Pulmonary Embolus (PE), Sleep Apnea/CPAP/BIPAP Additional Past Medical History / Comment(s): Hx kidney stones, UTI with urosepsis, renal cysts, chronic back pain, "herniated, bulging discs, lumbar spine nerve damage" pain sometimes radiates down bilateral legs, R lower leg fx as 13 yr old, concussion. Uses CPAP machine., hx of bleeding ulcer.hx c-diff pt stated approx 4 years ago 2013 Last Myocardial Infarction Date:: 2011 History of Any Multi-Drug Resistant Organisms: C-DIFF, MRSA Date of last positivie culture/infection: 2015 MDRO Source:: left axilla Past Surgical History: Appendectomy, Back Surgery, Cholecystectomy, Heart Catheterization, Hernia Repair Additional Past Surgical History / Comment(s): 2007 back surgery with decompression fusion at [facility], 2011, 2016 cardiac cath, multiple ESWL/ureteral stents/ double J catheters, L inquinal hernia repair, PICC line for ABX for urosepsis-since removed., Hx of c-diff. 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 Smoking Status: Never smoker Past Alcohol Use History: None Reported Past Drug Use History: None Reported - Past Family History Father Family Medical History: Chest Pain / Angina Additional Family Medical History / Comment(s): "lung problems" Mother Family Medical History: Cancer, Chest Pain / Angina, Congestive Heart Failure ( CHF), Osteoarthritis (OA), Thyroid Disorder Medications and Allergies Home Medications Medication Instructions Recorded Confirmed Type Lisinopril 40 mg PO DAILY 08/01/17 08/11/18 History Omeprazole [PriLOSEC] 20 mg PO BID 12/11/17 08/11/18 History HYDROcodone/APAP 10-325MG [[place] 1 tab PO Q6HR PRN 03/25/18 08/11/18 History 10-325] Methocarbamol [Robaxin-750] 750 mg PO TID PRN 03/25/18 08/11/18 History metFORMIN HCL [Glucophage] 500 mg PO BID 04/24/18 08/11/18 History Hydrochlorothiazide [Hydrodiuril] 25 mg PO DAILY 05/21/18 08/11/18 History Atorvastatin [Lipitor] 40 mg PO DAILY #90 tab 05/22/18 08/11/18 Rx Diltiazem Cd [Cardizem CD] 300 mg PO DAILY #90 cap.er.24h 05/22/18 08/11/18 Rx Allergies Allergy/AdvReac Type Severity Reaction Status Date / Time doxycycline Allergy Swelling Verified 08/11/18 16:15 ketorolac tromethamine Allergy Rash/Hives Verified 08/11/18 16:15 [From Toradol] morphine Allergy Rash/Hives Verified 08/11/18 16:15 metoclopramide HCl AdvReac Dystonic Verified 08/11/18 16:15 [From Reglan] Reaction prochlorperazine edisylate AdvReac Dystonic Verified 08/11/18 16:15 [From Compazine] Reaction prochlorperazine maleate AdvReac Dystonic Verified 08/11/18 16:15 [From Compazine] Reaction Physical Exam Vitals: Vital Signs Temp Pulse Pulse Resp BP BP Pulse Ox 08/12/18 07:36 89 18 08/12/18 07:15 98.3 F 89 18 135/72 95 08/12/18 04:00 97.4 F L 98 16 132/74 94 L 08/12/18 00:00 101 H 15 08/11/18 23:36 98.4 F 101 H 15 164/91 96 08/11/18 20:00 100 16 08/11/18 18:59 97.9 F 100 16 145/89 98 08/11/18 18:51 98.3 F 08/11/18 17:25 108 H 24 131/89 96 08/11/18 16:00 115 H 22 143/113 95 08/11/18 15:46 98.9 F 121 H 24 143/133 98 Intake and Output 08/11/18 08/12/18 08/12/18 22:59 06:59 14:59 Intake Total 60.762 200 Output Total 400 Balance 60.762 -200 Intake: Intake, IV Titration 60.762 Amount Heparin Sod,Pork in 0.45% 60.762 NaCl 25,000 unit In 0.45 % NaCl 1 250ml.bag @ 7.6 UNITS/KG/HR 9.88 mls/hr IV .Q24H [facility] Rx#: [id number] Other 200 Output: Urine 400 Other: Voiding Method Urinal # Voids 2 Weight 130 kg 135.2 kg GENERAL: The patient is alert and oriented x3, not in any acute distress. Obese HEENT: Pupils are round and equally reacting to light. EOMI. No scleral icterus. No conjunctival pallor. Normocephalic, atraumatic. No pharyngeal erythema. No thyromegaly. CARDIOVASCULAR: S1 and S2 present. No murmurs, rubs, or gallops. -PULMONARY: Chest is clear to auscultation, harsh breath sounds bilaterally. no wheezing or crackles. ABDOMEN: Soft, nontender, nondistended, normoactive bowel sounds. No palpable organomegaly. MUSCULOSKELETAL: No joint swelling or deformity. EXTREMITIES: No cyanosis, clubbing, or pedal edema. NEUROLOGICAL: Gross neurological examination did not reveal any focal deficits. SKIN: No rashes. Results CBC & Chem 7: 08/11/18 16:00 08/11/18 16:00 Labs: Abnormal Lab Results - Last 24 Hours (Table) 08/11/18 08/11/18 08/11/18 Range/Units 16:00 16:00 16:00 Chloride 108 H (98-107) mmol/L Glucose 170 H (74-99) mg/dL POC Glucose (mg/dL) (75-99) mg/dL Total Creatine Kinase 317 H (55-170) U/L Triglycerides 213 H (<150) mg/dL Cholesterol 215 H (<200) mg/dL LDL Cholesterol, Calc 139 H (0-99) mg/dL HDL Cholesterol 33 L (40-60) mg/dL 08/11/18 08/12/18 08/12/18 Range/Units 19:57 00:15 03:43 Chloride (98-107) mmol/L Glucose (74-99) mg/dL POC Glucose (mg/dL) 171 H (75-99) mg/dL Total Creatine Kinase 263 H 245 H (55-170) U/L Triglycerides (<150) mg/dL Cholesterol (<200) mg/dL LDL Cholesterol, Calc (0-99) mg/dL HDL Cholesterol (40-60) mg/dL 08/12/18 Range/Units 06:47 Chloride (98-107) mmol/L Glucose (74-99) mg/dL POC Glucose (mg/dL) 128 H (75-99) mg/dL Total Creatine Kinase (55-170) U/L Triglycerides (<150) mg/dL Cholesterol (<200) mg/dL LDL Cholesterol, Calc (0-99) mg/dL HDL Cholesterol (40-60) mg/dL Thrombosis Risk Factor Assmnt - Choose All That Apply Any of the Below Risk Factors Present?: Yes Each Factor Represents 1 point: Age 41-60 years Other Risk Factors: Yes Each Risk Factor Represents 3 Points: History of DVT/PE Other congenital or acquired thrombophilia - If yes, enter type in comment: No Thrombosis Risk Factor Assessment Total Risk Factor Score: 4 Thrombosis Risk Factor Assessment Level: Moderate Risk Assessment and Plan Assessment: Chest pain, cardiac causes has been ruled out. Exertional dyspnea History of asthma History of hypertension Diabetes mellitus History of coronary artery disease History of GERD History of mitral valve prolapse History of PE Sleep apnea Chronic pain, on contract with his PCP Dr. Muniz Obesity Plan: This is a pleasant 52 years old male who presents because of chest pain and exertional dyspnea. Continue with breathing treatment. Senior Financial Analyst evaluated the patient and found him stable for discharge. We'll call pulmonary team for further evaluation Labs and medication were reviewed.. Continue same treatment. Continue with symptomatic treatment. Resume home medication. Monitor lytes and vitals. DVT and GI prophylaxis. Further recommendations of the clinical course of the patient DVT prophylaxis: Subcutaneous heparin GI Prophylaxis: Pepcid Prognosis is guarded
[2018-08-12] MEDS: FAMOTIDINE 20 MG/2 ML VIAL IV SCH ×2 (11:20→20:16)
[2018-08-12] MEDS: HEPARIN SODIUM,PORCINE 5,000 UNIT/ML 1 ML VIAL SQ SCH ×3 (11:21→23:23)
[2018-08-12 11:52] LABS: Glucose,Whole Blood 109 mg/dL (75-99)
[2018-08-12] MEDS: SODIUM CHLORIDE 0.9% 1,000 ML IV SCH (13:24)
[2018-08-12 16:58] LABS: Glucose,Whole Blood 114 mg/dL (75-99)
[2018-08-12 20:03] LABS: Glucose,Whole Blood 125 mg/dL (75-99)
[2018-08-12] MEDS ORDERED: HYDROcodone/APAP 5-325MG 1 EACH TAB PO PRN (23:19)
[2018-08-13 06:39] LABS: Glucose,Whole Blood 124 mg/dL (75-99)
[2018-08-13] MEDS: INSULIN ASPART (NovoLOG) 100 UNIT/ML VIAL SQ SCH ×4 (08:35→23:54)
[2018-08-13] MEDS: ASPIRIN 81 MG PO SCH (09:14)
[2018-08-13] MEDS: ATORVASTATIN 40 MG TAB PO SCH (09:14)
[2018-08-13] MEDS: DILTIAZEM CD 300 MG CAP.ER.24H PO SCH (09:14)
[2018-08-13] MEDS: metFORMIN 500 MG TAB PO SCH ×2 (09:14→23:53)
[2018-08-13] MEDS: HYDROCHLOROTHIAZIDE 25 MG TAB PO SCH (09:14)
[2018-08-13] MEDS: PANTOPRAZOLE 40 MG TABLET PO SCH ×2 (09:15→19:59)
[2018-08-13] MEDS: LISINOPRIL 20 MG TAB PO SCH (09:15)
[2018-08-13] MEDS: HEPARIN SODIUM,PORCINE 5,000 UNIT/ML 1 ML VIAL SQ SCH ×3 (09:15→23:57)
[2018-08-13] MEDS ORDERED: IPRATROPIUM-ALBUTEROL 3 ML NEB INHALATION PRN (11:20)
--- NOTE | 2018-08-13 11:49 | P.PN ---
Subjective This is a pleasant 52-year-old male past medical history significant for hypertension, dyslipidemia and diabetes mellitus. He follows in the office with Dr. Arora. He is being seen and examined this morning resting comfortably in bed laying flat in no acute distress. He presents to the hospital initially with symptoms of chest pain, shortness of breath. He states he has ongoing chest pain described as a squeezing in the mid-sternal region that seems worse with activity and exertion and is associated with dyspnea. An acute coronary event has been ruled out. Laboratory data reviewed, cardiac enzymes negative 3. Blood pressure 102/70 heart rate 78 afebrile maintaining oxygen saturation on room air. Currently maintained on atorvastatin 40 mg daily, diltiazem 300 mg daily, hydrochlorothiazide 25 mg daily and lisinopril 40 mg daily. GENERAL: Well-appearing, well-nourished and in no acute distress. Obese. NECK: Supple without JVD or thyromegaly. LUNGS: Breath sounds clear to auscultation bilaterally. Respiration equal and unlabored. No wheezes, rales or rhonchi. HEART: Regular rate and rhythm without murmurs, rubs or gallops. S1 and S2 heard. EXTREMITIES: Normal range of motion, no edema. No clubbing or cyanosis. Peripheral pulses intact. ASSESSMENT Chest pain, atypical. An acute event has been ruled out. Ongoing chest pain with exertion. Hypertension Dyslipidemia Diabetes mellitus Obesity, BMI 41 PLAN Perform stress echocardiogram to assess for stress induced ischemia. If negative he is stable for discharge home. Other etiology to be investigated per primary care team. Normal heart cath 05/2017, symptoms not suggestive of angina. Nurse Practitioner note has been reviewed, I agree with a documented findings and plan of care. Patient was seen and examined. Objective - Vital Signs Vital signs: Vital Signs Temp 98.4 F 08/13/18 07:11 Pulse 78 08/13/18 07:11 Resp 18 08/13/18 07:11 BP 102/70 08/13/18 07:11 Pulse Ox 97 08/13/18 07:11 Intake & Output 08/12/18 08/13/18 08/13/18 18:59 06:59 18:59 Intake Total 940 Output Total 400 Balance 540 Intake: Oral 540 Other 400 Output: Urine 400 Other: Voiding Method Urinal Urinal # Voids 1 - Labs CBC & Chem 7: 08/11/18 16:00 08/11/18 16:00 Labs: Abnormal Lab Results - Last 24 Hours (Table) 08/12/18 08/12/18 08/12/18 Range/Units 11:49 16:54 20:01 POC Glucose (mg/dL) 109 H 114 H 125 H (75-99) mg/dL 08/13/18 Range/Units 06:37 POC Glucose (mg/dL) 124 H (75-99) mg/dL
[2018-08-13 11:50] LABS: Glucose,Whole Blood 121 mg/dL (75-99)
[2018-08-13] MEDS: HYDROcodone/APAP 5-325MG 1 EACH TAB PO PRN ×2 (11:51→19:59)
--- NOTE | 2018-08-13 11:55 | P.PN ---
Subjective This is a pleasant 52 years old male with past medical history of possible coronary artery disease, negative stress test in 2017, asthma, diabetes mellitus , GERD, hyperlipidemia, hypertension, mitral valve prolapse, PE, sleep apnea. He presents because of chest pain of one-day duration. He is a patient of Dr. Jane bynum and follow-up with Dr. Arora the software asset management analyst however he missed his appointment last week and he scheduled again for 08/21/2018. Patient states yesterday he woke up around 10:00 in the morning with central chest pain radiating to the back, left jaw and left shoulder, felt sick wheezing and in the deep parts he felt that is like sharp like a knife. 47/10 in severity. When it was started yesterday it was mild, when he went out to get his mail he noticed that it become more severe with exertion he opted to risk for 1 hours and that did not help relieve the pain so decided to come to the hospital. Patient says that his lately has been having worsening exertional dyspnea associated with some dizziness and dry cough however he denies phlegm or hemoptysis. 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 No alcohol or illicit tracts. CBC and BMP were unremarkable. Lipid profile slightly elevated. Chest x-ray: No acute process per Radiologist. Patient has been already evaluated by software asset management analyst and cleared him for discharge from their perspective. 08/13/2018 Patient had stress test today after cystoscopy she has some breathing difficulties are not sure if it's related to exertion, he has some scattered wheezing and his lung examined and breathing treatment as provided for the patient. Patient states she still have chest pain. Caldwell is a provided for him however yesterday he told me he was taking 10 mg at home when I checked MAPS but did not show he was prescribed Caldwell by any doctor. Currently we keep him on Caldwell 11/09/2024 every 8 hours. The result of stress test still pending. Pulmonary team are going to see the patient. Objective - Vital Signs Vital signs: Vital Signs Temp 99.3 F 08/13/18 11:22 Pulse 114 H 08/13/18 11:22 Resp 18 08/13/18 11:22 BP 154/84 08/13/18 11:22 Pulse Ox 98 08/13/18 11:22 Intake & Output 08/12/18 08/13/18 08/13/18 18:59 06:59 18:59 Intake Total 940 240 Output Total 400 Balance 540 240 Intake: Oral 540 240 Other 400 Output: Urine 400 Other: Voiding Method Urinal Urinal # Voids 1 - Exam GENERAL: The patient is alert and oriented x3, not in any acute distress. Well developed, well nourished. HEENT: Pupils are round and equally reacting to light. EOMI. No scleral icterus. No conjunctival pallor. Normocephalic, atraumatic. No pharyngeal erythema. No thyromegaly. CARDIOVASCULAR: S1 and S2 present. No murmurs, rubs, or gallops. -PULMONARY: Chest is clear to auscultation, scattered expiratory wheezing and prolonged expiration. ABDOMEN: Soft, nontender, nondistended, normoactive bowel sounds. No palpable organomegaly. MUSCULOSKELETAL: No joint swelling or deformity. EXTREMITIES: No cyanosis, clubbing, or pedal edema. NEUROLOGICAL: Gross neurological examination did not reveal any focal deficits. SKIN: No rashes. - Labs CBC & Chem 7: 08/11/18 16:00 08/11/18 16:00 Labs: Abnormal Lab Results - Last 24 Hours (Table) 08/12/18 08/12/18 08/12/18 Range/Units 11:49 16:54 20:01 POC Glucose (mg/dL) 109 H 114 H 125 H (75-99) mg/dL 08/13/18 Range/Units 06:37 POC Glucose (mg/dL) 124 H (75-99) mg/dL Assessment and Plan Assessment: Chest pain, cardiac causes has been ruled out. Exertional dyspnea History of asthma History of hypertension Diabetes mellitus History of coronary artery disease History of GERD History of mitral valve prolapse History of PE Sleep apnea Chronic pain, on contract with his PCP Dr. Muniz Obesity Plan: This is a pleasant 52 years old male who presents because of chest pain and exertional dyspnea. Continue with breathing treatment. Clinical Trials Specialist evaluated the patient and stress test is pending. We'll call pulmonary team for further evaluation. Continue with pain management and breathing treatment for now.. Labs and medication were reviewed.. Continue same treatment. Continue with symptomatic treatment. Resume home medication. Monitor lytes and vitals. DVT and GI prophylaxis. Further recommendations of the clinical course of the patient DVT prophylaxis: Subcutaneous heparin GI Prophylaxis: Protonix Prognosis is guarded
--- NOTE | 2018-08-13 12:33 | ECHOS ---
STRESS ECHOCARDIOGRAM INDICATIONS: Chest pain. BASELINE HEART RATE: 116 BASELINE BLOOD PRESSURE: 158/73 MAXIMUM HEART RATE: 146 MAXIMUM BLOOD PRESSURE: 161/70 85% MPHR: 144 100% MPHR: 169 METS: 5.6 MAXIMUM STAGE REACHED: 2 TOTAL EXERCISE TIME: 4:00 CLINICAL INFORMATION: The patient was exercised for a total period of 4 minutes a peak heart rate of 146 was achieved. Maximum blood pressure of 161/70 mmHg is noted. Resting EKG shows normal sinus rhythm with normal UT interval and QRS duration and normal ST-T waves. No ST- segment depression suggestive of ischemia is noted. The baseline echocardiographic images reveals normal left ventricular chamber size with normal left ventricular systolic function. In the immediate postexercise period normal increase in the wall thickness and contractility is noted. FINAL IMPRESSION: This stress echocardiographic study is negative for stress-induced ischemia. EKG portion of the stress test is not suggestive of ischemia. Patient's exercise tolerance is below average. MMODL / IJN: [id number] /
--- NOTE | 2018-08-13 14:04 | P.CNPUL ---
History of Present Illness Consult date: 08/13/18 Reason for consult: chest pain History of present illness: 52-year-old male patient, obese with known history of chronic asthmatic bronchitis and obstructive sleep apnea in addition to history of diabetes mellitus hypertension and hyperlipidemia. The patient was having increased cough congestion chest that is wheezing. Subsequently his pain localized over the left lateral chest area and was rather constant and spasming. He also reported some pain which was squeezing in the midsternal area. For that reason he came into the hospital. He was hemodynamically stable. Troponins were negative. EKG was negative. This morning the patient underwent a stress echocardiogram that was negative for any stress-induced ischemia. EKG portion did not show any changes to suggest ischemia. The d-dimer was also negative. Note the patient had history of pulmonary embolism 3 years ago and he was briefly treated with anticoagulation and he was subsequently taken off the anticoagulation. Influenza screen is negative. No leg swelling. No Pain or tenderness. No hemoptysis. The pain is obviously nonpleuritic in nature. Review of Systems Constitutional: Denies chills, Denies fever Eyes: denies as per HPI, denies blurred vision, denies bulging eye, denies decreased vision, denies diplopia, denies discharge, denies dry eye, denies irritation, denies itching, denies pain, denies photophobia, denies loss of peripheral vision, denies loss of vision, denies tunnel vision/blind spots Ears: deny: decreased hearing, ear discharge, earache, tinnitus Ears, nose, mouth and throat: Denies headache, Denies sore throat Cardiovascular: Reports chest pain, Reports dyspnea on exertion Respiratory: Reports dyspnea Gastrointestinal: Denies abdominal pain, Denies diarrhea, Denies nausea, Denies vomiting Genitourinary: Reports as per HPI Musculoskeletal: Reports as per HPI Musculoskeletal: absent: ankle pain, ankle stiffness, ankle swelling, as per HPI , elbow pain, elbow stiffness, elbow swelling, foot pain, foot stiffness, foot swelling, hand pain, hand stiffness, hand swelling, hip pain, hip stiffness, hip swelling, knee pain, knee stiffness, knee swelling, shoulder pain, shoulder stiffness, shoulder swelling, wrist pain, wrist stiffness, wrist swelling Integumentary: Reports as per HPI Neurological: Reports as per HPI Psychiatric: Reports as per HPI Endocrine: Reports as per HPI Hematologic/Lymphatic: Reports as per HPI Allergic/Immunologic: Reports as per HPI Past Medical History Past Medical History: Asthma, Chest Pain / Angina, Diabetes Mellitus, GERD/ Reflux, Hyperlipidemia, Hypertension, Myocardial Infarction (OK), Mitral Valve Prolapse (MVP), Pulmonary Embolus (PE), Sleep Apnea/CPAP/BIPAP Additional Past Medical History / Comment(s): Obesity, chronic asthmatic bronchitis, previous history of pulmonary embolism, objective sleep apnea, diabetes mellitus, hypertension, hyperlipidemia, previous history of myocardial infarction with underlying coronary artery disease, renal cysts, chronic back pain secondary to herniated lumbar disc disease with symptoms of sciatica, history of right lower extremity fracture at the age of 13, history of C. diff colitis approximately 4 years ago, history of bleeding peptic ulcer, nephrolithiasis, previous history of UTI and secondary sepsis. Last Myocardial Infarction Date:: 2011 History of Any Multi-Drug Resistant Organisms: C-DIFF, MRSA Date of last positivie culture/infection: 2015 MDRO Source:: left axilla Past Surgical History: Appendectomy, Back Surgery, Cholecystectomy, Heart Catheterization, Hernia Repair Additional Past Surgical History / Comment(s): 2008 back surgery with decompression fusion at [facility], 2011, 2016 cardiac cath, multiple ESWL/ureteral stents/ double J catheters, L inquinal hernia repair, PICC line for ABX for urosepsis-since removed., Hx of c-diff. 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 Smoking Status: Never smoker Past Alcohol Use History: None Reported Past Drug Use History: None Reported - Past Family History Father Family Medical History: Chest Pain / Angina Additional Family Medical History / Comment(s): "lung problems" Mother Family Medical History: Cancer, Chest Pain / Angina, Congestive Heart Failure ( CHF), Osteoarthritis (OA), Thyroid Disorder Medications and Allergies Home Medications Medication Instructions Recorded Confirmed Type Lisinopril 40 mg PO DAILY 08/01/17 08/11/18 History Omeprazole [PriLOSEC] 20 mg PO BID 12/11/17 08/11/18 History HYDROcodone/APAP 10-325MG [[place] 1 tab PO Q6HR PRN 03/25/18 08/11/18 History 10-325] Methocarbamol [Robaxin-750] 750 mg PO TID PRN 03/25/18 08/11/18 History metFORMIN HCL [Glucophage] 500 mg PO BID 04/24/18 08/11/18 History Hydrochlorothiazide [Hydrodiuril] 25 mg PO DAILY 05/21/18 08/11/18 History Atorvastatin [Lipitor] 40 mg PO DAILY #90 tab 05/22/18 08/11/18 Rx Diltiazem Cd [Cardizem CD] 300 mg PO DAILY #90 cap.er.24h 05/22/18 08/11/18 Rx Allergies Allergy/AdvReac Type Severity Reaction Status Date / Time doxycycline Allergy Swelling Verified 08/11/18 16:15 ketorolac tromethamine Allergy Rash/Hives Verified 08/11/18 16:15 [From Toradol] morphine Allergy Rash/Hives Verified 08/11/18 16:15 metoclopramide HCl AdvReac Dystonic Verified 08/11/18 16:15 [From Reglan] Reaction prochlorperazine edisylate AdvReac Dystonic Verified 08/11/18 16:15 [From Compazine] Reaction prochlorperazine maleate AdvReac Dystonic Verified 08/11/18 16:15 [From Compazine] Reaction Physical Exam Vitals: Vital Signs Temp Pulse Pulse Resp BP BP Pulse Ox 08/13/18 12:53 92 08/13/18 12:43 96 08/13/18 11:22 99.3 F 114 H 18 154/84 98 08/13/18 07:11 98.4 F 78 18 102/70 97 08/13/18 04:00 98.2 F 90 18 150/71 97 08/13/18 00:00 20 08/12/18 23:24 98.2 F 80 20 107/55 96 08/12/18 20:00 18 08/12/18 19:17 98.2 F 82 18 105/68 93 L 08/12/18 16:00 83 18 08/12/18 15:37 98.2 F 83 18 130/75 96 Intake and Output 08/12/18 08/13/18 08/13/18 22:59 06:59 14:59 Intake Total 500 684 Balance 500 684 Intake: Oral 300 684 Other 200 Other: Voiding Method Urinal Urinal # Voids 1 Gen. appearance, comfortable no acute distress obese Head exam was generally normal. There was no scleral icterus or corneal arcus. Mucous membranes were moist. Neck was supple and without jugular venous distension, thyromegaly, or carotid bruits. Carotids were easily palpable bilaterally. There was no adenopathy. Lymphatic less for and the patient has significant crowding of the posterior oropharynx. Lungs sounds are diminished and there is some scattered expiratory wheezes throughout the lung turner bilaterally. No chest wall deformity. Cardiac exam revealed the PMI to be normally situated and sized. The rhythm was regular and no extrasystoles were noted during several minutes of auscultation. The first and second heart sounds were normal and physiologic splitting of the second heart sound was noted. There were no murmurs, rubs, clicks, or gallops. Abdominal exam revealed normal bowel sounds. The abdomen was soft, non-tender, and without masses, organomegaly, or appreciable enlargement of the abdominal aorta. Examination of the extremities revealed easily palpable radial, femoral and pedal pulses. There was no cyanosis, clubbing or edema. Examination of the skin revealed no evidence of significant rashes, suspicious appearing nevi or other concerning lesions. Neurologically awake and alert and there is no focal neurological deficits Psychiatric negative for anxiety or depression Examination of the skin revealed no evidence of significant rashes, suspicious appearing nevi or other concerning lesions. Results - Laboratory Findings CBC and BMP: 08/11/18 16:00 08/11/18 16:00 PT/INR, D-dimer PT 9.5 sec (9.0-12.0) 08/11/18 16:00 INR 0.9 (<1.2) 08/11/18 16:00 D-Dimer 0.31 mg/L FEU (<0.60) 08/11/18 16:00 Abnormal lab findings: Abnormal Labs 08/11/18 08/11/18 08/11/18 16:00 16:00 16:00 Chloride 108 H Glucose 170 H POC Glucose (mg/dL) Total Creatine Kinase 317 H Triglycerides 213 H Cholesterol 215 H LDL Cholesterol, Calc 139 H HDL Cholesterol 33 L 08/11/18 08/12/18 08/12/18 19:57 00:15 03:43 Chloride Glucose POC Glucose (mg/dL) 171 H Total Creatine Kinase 263 H 245 H Triglycerides Cholesterol LDL Cholesterol, Calc HDL Cholesterol 08/12/18 08/12/18 08/12/18 06:47 11:49 16:54 Chloride Glucose POC Glucose (mg/dL) 128 H 109 H 114 H Total Creatine Kinase Triglycerides Cholesterol LDL Cholesterol, Calc HDL Cholesterol 08/12/18 08/13/18 08/13/18 20:01 06:37 11:48 Chloride Glucose POC Glucose (mg/dL) 125 H 124 H 121 H Total Creatine Kinase Triglycerides Cholesterol LDL Cholesterol, Calc HDL Cholesterol - Diagnostic Findings Chest x-ray: image reviewed Assessment and Plan Plan: 1 chest pain, likely skeletal in nature. Cardiac causes have been ruled out and the patient was asked to be seen by pulmonology for the same. Doubt pulmonary embolism session that the patient has a d-dimer that negative and the patient's symptoms are not suggestive. Very much likely the patient had symptoms of bronchitis and secondary to vigorous cough is having pain and spasming along his sternal and left lateral chest area. 2 chronic asthmatic bronchitis with exacerbation 3 obesity with BMI 41.6 4 obstructive sleep apnea maintained on CPAP therapy 5 coronary artery disease 6 diabetes mellitus 7 hypertension 8 remote history of pulmonary embolism 9 comorbidities all mentioned above in history of present illness Plan Put the patient on DuoNeb nebulized treatments around the clock. Put the patient IV Solu Medrol 40 mg every 8 hours. Monitor the blood sugar and tighten the blood sugar control. Obtain a CTA of the chest looking for any parenchymal lung disease along the left lateral chest area and this will be a good opportunity to evaluate this patient for pulmonary embolism. Clinically however my overall suspicion is quite low for pulmonary embolism and it is very much like and we are dealing with a skeletal pain for the reasons mentioned above.
[2018-08-13] MEDS: methylPREDNISolone SOD SUCCI 40 MG/ML 1 ML VIAL IV SCH ×2 (14:27→17:35)
[2018-08-13] MEDS: IPRATROPIUM-ALBUTEROL 3 ML NEB INHALATION SCH ×2 (16:00→20:27)
[2018-08-13 16:45] LABS: Glucose,Whole Blood 205 mg/dL (75-99)
[2018-08-13 20:21] LABS: Glucose,Whole Blood 251 mg/dL (75-99)
[2018-08-13] MEDS: SODIUM CHLORIDE 0.9% 1,000 ML IV SCH (21:20)
[2018-08-14] MEDS: IPRATROPIUM-ALBUTEROL 3 ML NEB INHALATION SCH ×5 (00:23→15:37)
[2018-08-14] MEDS: HYDROcodone/APAP 5-325MG 1 EACH TAB PO PRN ×2 (01:58→10:18)
[2018-08-14] MEDS: methylPREDNISolone SOD SUCCI 40 MG/ML 1 ML VIAL IV SCH ×3 (01:58→12:32)
[2018-08-14 03:41] VITALS: RESP 18
[2018-08-14 06:57] LABS: Glucose,Whole Blood 198 mg/dL (75-99)
[2018-08-14] MEDS: HEPARIN SODIUM,PORCINE 5,000 UNIT/ML 1 ML VIAL SQ SCH ×2 (08:18→16:25)
[2018-08-14] MEDS: INSULIN ASPART (NovoLOG) 100 UNIT/ML VIAL SQ SCH ×3 (08:19→17:30)
[2018-08-14] MEDS: DILTIAZEM CD 300 MG CAP.ER.24H PO SCH (08:19)
[2018-08-14] MEDS: HYDROCHLOROTHIAZIDE 25 MG TAB PO SCH (08:19)
[2018-08-14] MEDS: ATORVASTATIN 40 MG TAB PO SCH (08:19)
[2018-08-14] MEDS: metFORMIN 500 MG TAB PO SCH (08:19)
[2018-08-14] MEDS: LISINOPRIL 20 MG TAB PO SCH (08:19)
[2018-08-14] MEDS: PANTOPRAZOLE 40 MG TABLET PO SCH (08:19)
[2018-08-14] MEDS: ASPIRIN 81 MG PO SCH (08:19)
[2018-08-14 11:15] LABS: Glucose,Whole Blood 185 mg/dL (75-99)
[2018-08-14] MEDS ORDERED: HYDROcodone/APAP 5-325MG 1 EACH TAB PO PRN (11:39)
--- NOTE | 2018-08-14 14:49 | CT ---
EXAMINATION TYPE: CT angio chest DATE OF EXAM: 08/14/2018 COMPARISON: 05/21/2018 HISTORY: Shortness of breath CT DLP: 877.8 mGycm CONTRAST: CT chest with contrast and 3D reconstruction with MIP imaging is performed with IV Contrast, patient injected with 100 mL of Isovue 370. Contrast-enhanced CT of the chest was performed through the course of the pulmonary arteries with mary g and mediastinal window settings submitted. 3D reconstruction with MIP imaging was also performed. PULMONARY ARTERIES: The pulmonary arteries and their major tributaries are patent. I do not see moe dence for sizable filling defect to suggest pulmonary embolic process. LUNGS: The lungs are clear and free of infiltrate. No evidence for atelectasis. No pulmonary nodule or mass is detected. No pleural effusion. MEDIASTINUM: Thoracic aorta is of normal caliber,however, evaluation is limited given timing of the contrast bolus. If there is concern for thoracic aortic pathology consider NGUYỄN. Correlate clinicall y . The heart is not enlarged. No evidence for mediastinal mass. No mediastinal lymph nodes greater than 1cm. HILAR STRUCTURES: No evidence for mass. No hilar lymph nodes greater than 1 cm. UPPER ABDOMEN: No significant abnormality is seen. IMPRESSION: 1. No evidence for Pulmonary embolism at this time.
[2018-08-14 15:38] VITALS: BP 122/71; TEMP 98.1
--- NOTE | 2018-08-14 16:11 | P.PN ---
Subjective Progress Note Date: 08/14/18 Principal diagnosis: Chest pain, likely skeletal in nature, pulmonary embolism has been ruled out, cardiac causes have been ruled out 52-year-old male patient, obese with known history of chronic asthmatic bronchitis and obstructive sleep apnea in addition to history of diabetes mellitus hypertension and hyperlipidemia. The patient was having increased cough congestion chest that is wheezing. Subsequently his pain localized over the left lateral chest area and was rather constant and spasming. He also reported some pain which was squeezing in the midsternal area. For that reason he came into the hospital. He was hemodynamically stable. Troponins were negative. EKG was negative. This morning the patient underwent a stress echocardiogram that was negative for any stress-induced ischemia. EKG portion did not show any changes to suggest ischemia. The d-dimer was also negative. Note the patient had history of pulmonary embolism 3 years ago and he was briefly treated with anticoagulation and he was subsequently taken off the anticoagulation. Influenza screen is negative. No leg swelling. No Pain or tenderness. No hemoptysis. The pain is obviously nonpleuritic in nature. On review 2019 patient seen in follow-up in the observation unit, patient had a CT angios chest today showed no evidence of pulmonary embolism, the lungs were clear and free of infiltrates, no atelectasis, no pulmonary nodules or masses, no pleural effusion. No evidence for mediastinal mass, no mediastinal lymph nodes greater than 1 cm. Vital signs have been stable, room air pulse ox is 95% , hemodynamically patient is stable, afebrile, lung sounds are diminished, no rhonchi or wheezing. No acute events overnight. Stress echocardiogram was negative for stress-induced ischemia. EKG portion of the stress test was not suggestive of ischemia. No new labs or chest x-rays today. From my perspective patient could be discharged home today Objective - Vital Signs Vital signs: Vital Signs Temp 98.1 F 08/14/18 15:37 Pulse 103 H 08/14/18 15:44 Resp 18 08/14/18 15:38 BP 122/71 08/14/18 15:37 Pulse Ox 95 08/14/18 15:37 Intake & Output 08/13/18 08/14/18 08/14/18 18:59 06:59 18:59 Intake Total 906 480 Balance 906 480 Intake: Oral 906 480 Other: Voiding Method Urinal Urinal # Voids 2 - Exam GENERAL EXAM: Alert, obese 52-year-old white male comfortable in no apparent distress. HEAD: Normocephalic/atraumatic. EYES: Normal reaction of pupils, equal size. Conjunctiva pink, sclera white. NOSE: Clear with pink turbinates. THROAT: No erythema or exudates. NECK: No masses, no JVD, no thyroid enlargement, no adenopathy. CHEST: No chest wall deformity. Symmetrical expansion. LUNGS: Equal air entry dementia breath sounds CVS: Regular rate and rhythm, normal S1 and S2, no gallops, no murmurs, no rubs ABDOMEN: Soft, nontender. No hepatosplenomegaly, normal bowel sounds, no guarding or rigidity. EXTREMITIES: No clubbing, no edema, no cyanosis, 2+ pulses and upper and lower extremities. MUSCULOSKELETAL: Muscle strength and tone normal. SPINE: No scoliosis or deformity SKIN: No rashes CENTRAL NERVOUS SYSTEM: Alert and oriented -3. No focal deficits, tone is normal in all 4 extremities. PSYCHIATRIC: Alert and oriented -3. Appropriate affect. Intact judgment and insight. - Labs CBC & Chem 7: 08/11/18 16:00 08/11/18 16:00 Labs: Abnormal Lab Results - Last 24 Hours (Table) 08/13/18 08/13/18 08/14/18 Range/Units 16:34 20:08 06:55 POC Glucose (mg/dL) 205 H 251 H 198 H (75-99) mg/dL 08/14/18 Range/Units 11:14 POC Glucose (mg/dL) 185 H (75-99) mg/dL Assessment and Plan Plan: 1 chest pain, likely skeletal in nature. Cardiac causes have been ruled out and the patient was asked to be seen by pulmonology for the same. Doubt pulmonary embolism session that the patient has a d-dimer that negative and the patient's symptoms are not suggestive. Very much likely the patient had symptoms of bronchitis and secondary to vigorous cough is having pain and spasming along his sternal and left lateral chest area. 2 chronic asthmatic bronchitis with exacerbation 3 obesity with BMI 41.6 4 obstructive sleep apnea maintained on CPAP therapy 5 coronary artery disease 6 diabetes mellitus 7 hypertension 8 remote history of pulmonary embolism 9 comorbidities all mentioned above in history of present illness Plan: CTA chest has been reviewed, and was negative for any evidence of pulmonary embolism, infiltrates, masses, lymphadenopathy. Vital signs are stable, patient is on room air, no fever or chills, patient has been cleared from cardiac standpoint to go home. From pulmonary perspective patient is stable for discharge home today on the oral course of prednisone taper. Need follow- up in the outpatient setting with Dr. Winters in I performed a history & physical examination of the patient and discussed their management with my nurse practitioner, Iva Sutton. I reviewed the nurse practitioner's note and agree with the documented findings and plan of care. Lung sounds are positive for diminished sounds. The findings and the impression was discussed with the patient. I attest to the documentation by the nurse practitioner. Time with Patient: Less than 30
[2018-08-14 16:19] LABS: Glucose,Whole Blood 162 mg/dL (75-99)
[2018-08-14 16:35] VITALS: PULSE 98
--- NOTE | 2018-08-14 16:51 | P.DS ---
Providers Date of admission: 08/14/18 08:19 Expected date of discharge: 08/14/18 Attending physician: Leonard Anderson MD Consults: 08/11/18 18:14 Consult Physician Urgent Consulting Provider: Miguel Arora Consult Reason/Comments: Chest pain Do you want consulting provider notified?: Yes 08/12/18 11:08 Consult Physician Urgent Consulting Provider: Lamont Barrett Consult Reason/Comments: exertional SOB, Chest pain w/cardio clearance Do you want consulting provider notified?: Yes Primary care physician: [facility] Course: Discharge diagnosis Chest pain, cardiac causes has been ruled out. Likely musculoskeletal in nature. D-dimer negative. Exertional dyspnea Acute on chronic persistent asthma hypertension Diabetes mellitus2 History of coronary artery disease GERD History of mitral valve prolapse Remote History of PE Obstructive Sleep apnea Chronic pain, on contract with his PCP Dr. Muniz Morbid obesity with BMI 41.6 This is a pleasant 52 years old male with past medical history of possible coronary artery disease, negative stress test in 2017, asthma, diabetes mellitus , GERD, hyperlipidemia, hypertension, mitral valve prolapse, PE, sleep apnea. He presents because of chest pain of one-day duration. He is a patient of Dr. Jane bynum and follow-up with Dr. Arora the cycle liaison however he missed his appointment last week and he scheduled again for 08/21/2018. Patient states yesterday he woke up around 10:00 in the morning with central chest pain radiating to the back, left jaw and left shoulder, felt sick wheezing and in the deep parts he felt that is like sharp like a knife. 47/10 in severity. When it was started yesterday it was mild, when he went out to get his mail he noticed that it become more severe with exertion he opted to risk for 1 hours and that did not help relieve the pain so decided to come to the hospital. Patient says that his lately has been having worsening exertional dyspnea associated with some dizziness and dry cough however he denies phlegm or hemoptysis. 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 No alcohol or illicit tracts. CBC and BMP were unremarkable. Lipid profile slightly elevated. Chest x-ray: No acute process per Radiologist. Patient has been already evaluated by cycle liaison and cleared him for discharge from their perspective. 08/13/2018 Patient had stress test today after cystoscopy she has some breathing difficulties are not sure if it's related to exertion, he has some scattered wheezing and his lung examined and breathing treatment as provided for the patient. Patient states she still have chest pain. Tolleson is a provided for him however yesterday he told me he was taking 10 mg at home when I checked MAPS but did not show he was prescribed Tolleson by any doctor. Currently we keep him on Tolleson 11/09/2024 every 8 hours. The result of stress test still pending. Pulmonary team are going to see the patient. 08/14/18 Patient denied any complaints of chest pain. No worsening shortness of breath. Patient still having wheezing which is mainly in the operated this. CT angiogram of the chest showed no evidence of pulmonary embolism. Patient is being continued on IV steroids while in the hospital. Pulmonary clear the patient for discharge. Recommended outpatient follow-up. Patient did have stress echocardiogram. Negative for stress-induced ischemia. EKG portion of the stress test is not suggestive of ischemia. Patient's exercise tolerance is below average. Patient was recommended to follow with pulmonary as an outpatient and primary care physician. Discharge physical examination PHYSICAL EXAMINATION: Patient is lying in the bed comfortably, no acute distress, awake alert and oriented.. HEENT: Normocephalic. Neck is supple. Pupils reactive. Nostrils clear. Oral cavity is moist. Ears reveal no drainage. Neck reveals no JVD, carotid bruits, or thyromegaly. CHEST EXAMINATION: Trachea is central. Symmetrical expansion. Bibasilar air entry clear to auscultation. Wheezing with cough mainly upper airways.. CARDIAC: Normal S1, S2 with no gallops. No murmurs ABDOMEN: Soft. Bowel sounds normal. No organomegaly. No abdominal bruits. Extremities: reveal no edema. No clubbing or cyanosis Neurologically awake, alert, oriented x3 with well-coordinated movements. No focal deficits noted Skin: No rash or skin lesions. Psychiatric: Coperative. Nonsuicidal Musculoskeletal: No joint swelling or deformity. Normal range of motion. Vital Signs 08/14/18 08/14/18 08/14/18 08:52 09:02 11:33 Temperature 97.7 F Pulse Rate 92 92 Pulse Rate [ 100 Pulse Oximetery ] Respiratory 18 Rate Blood Pressure 146/81 [Left Arm] O2 Sat by Pulse 97 Oximetry 08/14/18 08/14/18 08/14/18 12:00 12:02 12:11 Temperature Pulse Rate 92 104 H Pulse Rate [ 100 Pulse Oximetery ] Respiratory 18 Rate Blood Pressure [Left Arm] O2 Sat by Pulse Oximetry 08/14/18 08/14/18 08/14/18 15:37 15:38 15:44 Temperature 98.1 F Pulse Rate 101 H 103 H Pulse Rate [ 98 Pulse Oximetery ] Respiratory 18 18 Rate Blood Pressure 122/71 [Left Arm] O2 Sat by Pulse 95 Oximetry 08/14/18 16:00 Temperature Pulse Rate Pulse Rate [ 98 Pulse Oximetery ] Respiratory 18 Rate Blood Pressure [Left Arm] O2 Sat by Pulse Oximetry Total time taken greater than 35 minutes including 18 minutes for counseling and coordination of care. Patient Condition at Discharge: Stable Plan - Discharge Summary Discharge Rx Participant: Yes New Discharge Prescriptions: New predniSONE 40 mg PO DAILY 4 Days #16 tab Continue Lisinopril 40 mg PO DAILY Omeprazole [PriLOSEC] 20 mg PO BID HYDROcodone/APAP 10-325MG [Tolleson 10-325] 1 tab PO Q6HR PRN PRN Reason: Pain Methocarbamol [Robaxin-750] 750 mg PO TID PRN PRN Reason: Pain metFORMIN HCL [Glucophage] 500 mg PO BID Hydrochlorothiazide [Hydrodiuril] 25 mg PO DAILY Diltiazem Cd [Cardizem CD] 300 mg PO DAILY #90 cap.er.24h Atorvastatin [Lipitor] 40 mg PO DAILY #90 tab Discharge Medication List Lisinopril 40 mg PO DAILY 08/01/17 [History] Omeprazole [PriLOSEC] 20 mg PO BID 12/11/17 [History] HYDROcodone/APAP 10-325MG [Tolleson 10-325] 1 tab PO Q6HR PRN 03/25/18 [History] Methocarbamol [Robaxin-750] 750 mg PO TID PRN 03/25/18 [History] metFORMIN HCL [Glucophage] 500 mg PO BID 04/24/18 [History] Hydrochlorothiazide [Hydrodiuril] 25 mg PO DAILY 05/21/18 [History] Atorvastatin [Lipitor] 40 mg PO DAILY #90 tab 05/22/18 [Rx] Diltiazem Cd [Cardizem CD] 300 mg PO DAILY #90 cap.er.24h 05/22/18 [Rx] predniSONE 40 mg PO DAILY 4 Days #16 tab 08/14/18 [Rx] Follow up Appointment(s)/Referral(s): Miguel Arora MD [STAFF PHYSICIAN] - 08/21/18 9:45 am Trav Muniz MD [Primary Care Provider] - 1-2 days Caio Jorge MD [STAFF PHYSICIAN] - 2 Weeks Activity/Diet/Wound Care/Special Instructions: Pt to call insurance for transportation home at discharge and would also like dc rx. Discharge Disposition: HOME SELF-CARE
== END 2018-08-14 17:45 | disposition home or self-care (01) | DRG 202 ==
LOC: EC 15:42 → 1SOBS 18:18 → OBSVTOIN 08-14 08:19
PROVIDERS: ADMIT Internal Medicine; ATTEND Internal Medicine
PROC: 05HF33Z Insertion of Infusion Device into Left Cephalic Vein, Percutaneous Approach (ICD-10-PCS; principal; 2018-08-14 13:45)
DX: J45.31 Mild persistent asthma with (acute) exacerbation (principal); Z68.41 Body mass index [BMI] 40.0-44.9, adult; E11.9 Type 2 diabetes mellitus without complications; E66.01 Morbid (severe) obesity due to excess calories; N28.1 Cyst of kidney, acquired; R07.89 Other chest pain; I25.10 Atherosclerotic heart disease of native coronary artery without angina pectoris; E78.5 Hyperlipidemia, unspecified; G47.33 Obstructive sleep apnea (adult) (pediatric); G89.29 Other chronic pain; I10 Essential (primary) hypertension; I25.2 Old myocardial infarction; I34.1 Nonrheumatic mitral (valve) prolapse; J44.9 Chronic obstructive pulmonary disease, unspecified; K21.9 Gastro-esophageal reflux disease without esophagitis; M51.26 Other intervertebral disc displacement, lumbar region; M54.30 Sciatica, unspecified side; M54.2 Cervicalgia; Z79.84 Long term (current) use of oral hypoglycemic drugs; Z79.899 Other long term (current) drug therapy; Z90.49 Acquired absence of other specified parts of digestive tract; Z87.442 Personal history of urinary calculi; Z86.711 Personal history of pulmonary embolism; Z87.440 Personal history of urinary (tract) infections; Z88.1 Allergy status to other antibiotic agents; Z88.5 Allergy status to narcotic agent; Z88.8 Allergy status to other drugs, medicaments and biological substances; Z98.1 Arthrodesis status; Z82.49 Family history of ischemic heart disease and other diseases of the circulatory system; Z82.61 Family history of arthritis; Z83.49 Family history of other endocrine, nutritional and metabolic diseases
CPT/HCPCS: 36410; 36415; 71046; 71275; 76937; 80053; 80061; 82150; 82550; 82553; 83690; 83735; 83880; 84484; 85025; 85379; 85610; 85730; 87502; 93005; 93351; 94640; 96374; 96375; 99285

== ENCOUNTER 2018-10-03 12:19 | Emergency (ER) | payer OTHER ==
[2018-10-03] MEDS ORDERED: HYDROmorphone 1 MG/ML 1 ML SYRINGE IVP STA ×2 (12:40→16:17)
--- NOTE | 2018-10-03 12:44 | ED ---
General Adult HPI - General Chief complaint: Back Pain/Injury Stated complaint: Fall,back pain Time Seen by Provider: 10/03/18 12:27 Source: patient, EMS Mode of arrival: EMS Limitations: no limitations - History of Present Illness Initial comments: Dictation was produced using [employer] dictation software. please excuse any grammatical, word or spelling errors. Chief Complaint: 52-year-old male with recent lumbar spinal surgery and showed mentation presents with back pain. History of Present Illness: Patient is a 52-year-old male. Approximately 3 weeks ago patient had emergent back surgery performed for acute nerve compression. States that he had multiple piece of hardware placed in his lower back. Patient states that he did report improvement after the surgery. He is here today via EMS for worsening recurrent back pain. She states he did also have 3 episodes of stool incontinence. He called the spinal surgeons office and was told to come to the emergency department. Patient is procedure done to [facility]. Patient was at his spinal surgeons office yesterday. He did report that his pain started after a fall 2 days ago. States that since then he has been having pain as being progressively worse. Patient complains of intense back pain especially to his right lower back and worsened with any sort of movement. The ROS documented in this emergency department record has been reviewed and confirmed by me. Those systems with pertinent positive or negative responses have been documented in the HPI. All other systems are other negative and/or noncontributory. PHYSICAL EXAM: General Impression: Alert and oriented x3, acute distress secondary to pain HEENT: Normocephalic atraumatic, extra-ocular movements intact, pupils equal and reactive to light bilaterally, mucous membranes moist. Cardiovascular: Heart regular rate and rhythm, S1&S2 audible, no murmurs, rubs or gallops Chest: Lungs clear to auscultation bilaterally, no rhonchi, no wheeze, no rales Abdomen: Bowel sounds present, abdomen soft, non-tender, non-distended, no organomegaly Musculoskeletal: Pulses present and equal in all extremities, no peripheral edema Motor: no focal deficits noted Neurological: CN II-XII grossly intact, no focal motor or sensory deficits noted, no clonus, no hyperreflexia to the lower extremities with sensation intact Skin: Intact with no visualized rashes Psych: Normal affect and mood ED course: 52yo male presents with worsening back pain after fall. 3 weeks ago he had spinal surgery performed at [facility]. Vital signs upon arrival shows heart rate of 109, blood pressure 180 10/08/2001, slow signs within acceptable limits. Patient was in significant distress initially. He is given half a milligram of Dilaudid with improvement of symptoms. Laboratory evaluation obtained showing no acute processes. Given patient had recent surgery and has been falling CT was performed for concerns of periprosthetic injury. No acute processes noted at this time. There are findings of postsurgical changes. Patient reevaluated [facility]. Patient case was discussed in detail with Dr. Mendez performed patient's lumbar surgery recently course the patient be transferred to [facility] for stat MRI patient be transferred down to [facility] for stat MRI and further management of back symptoms. Discussed patient case with Dr. Montemayor of [facility] emergency department was willing to accept the transfer. - Related Data Home Medications Medication Instructions Recorded Confirmed Lisinopril 40 mg PO DAILY 08/01/17 10/03/18 Omeprazole [PriLOSEC] 20 mg PO BID 12/11/17 10/03/18 Methocarbamol [Robaxin-750] 750 mg PO TID PRN 03/25/18 10/03/18 metFORMIN HCL [Glucophage] 500 mg PO BID 04/24/18 10/03/18 Hydrochlorothiazide [Hydrodiuril] 25 mg PO DAILY 05/21/18 10/03/18 methylPREDNISolone Dose Pack See Taper PO DIRECTED 10/03/18 10/03/18 [Medrol Dose Pack] oxyCODONE-APAP 10-325MG [Percocet 1 tab PO Q6H 10/03/18 10/03/18 10-325 mg] Previous Rx's Medication Instructions Recorded Atorvastatin [Lipitor] 40 mg PO DAILY #90 tab 05/22/18 Diltiazem Cd [Cardizem CD] 300 mg PO DAILY #90 cap.er.24h 05/22/18 Allergies Allergy/AdvReac Type Severity Reaction Status Date / Time doxycycline Allergy Swelling Verified 10/03/18 13:21 ketorolac tromethamine Allergy Rash/Hives Verified 10/03/18 13:21 [From Toradol] morphine Allergy Rash/Hives Verified 10/03/18 13:21 metoclopramide HCl AdvReac Dystonic Verified 10/03/18 13:21 [From Reglan] Reaction prochlorperazine edisylate AdvReac Dystonic Verified 10/03/18 13:21 [From Compazine] Reaction prochlorperazine maleate AdvReac Dystonic Verified 10/03/18 13:21 [From Compazine] Reaction Review of Systems ROS Statement: Those systems with pertinent positive or pertinent negative responses have been documented in the HPI. ROS Other: All systems not noted in ROS Statement are negative. Past Medical History Past Medical History: Asthma, Chest Pain / Angina, Diabetes Mellitus, GERD/Reflux, Hyperlipidemia, Hypertension, Myocardial Infarction (ID), Mitral Valve Prolapse (MVP), Pulmonary Embolus (PE), Sleep Apnea/CPAP/BIPAP Additional Past Medical History / Comment(s): Obesity, chronic asthmatic bronchitis, previous history of pulmonary embolism, objective sleep apnea, diabetes mellitus, hypertension, hyperlipidemia, previous history of myocardial infarction with underlying coronary artery disease, renal cysts, chronic back pain secondary to herniated lumbar disc disease with symptoms of sciatica, history of right lower extremity fracture at the age of 13, history of C. diff colitis approximately 4 years ago, history of bleeding peptic ulcer, nephrolithiasis, previous history of UTI and secondary sepsis. Last Myocardial Infarction Date:: 2011 History of Any Multi-Drug Resistant Organisms: C-DIFF, MRSA Date of last positivie culture/infection: 2015 MDRO Source:: left axilla Past Surgical History: Appendectomy, Back Surgery, Cholecystectomy, Heart Catheterization, Hernia Repair Additional Past Surgical History / Comment(s): 2007 back surgery with decompression fusion at [facility], 2011, 2016 cardiac cath, multiple ESWL/ureteral stents/ double J catheters, L inquinal hernia repair, PICC line for ABX for urosepsis-since removed., Hx of c-diff. Past Anesthesia/Blood Transfusion Reactions: No Reported Reaction Past Psychological History: No Psychological Hx Reported Smoking Status: Never smoker Past Alcohol Use History: None Reported Past Drug Use History: None Reported - Past Family History Father Family Medical History: Chest Pain / Angina Additional Family Medical History / Comment(s): "lung problems" Mother Family Medical History: Cancer, Chest Pain / Angina, Congestive Heart Failure (CHF), Osteoarthritis (OA), Thyroid Disorder General Exam Limitations: no limitations Course Vital Signs 10/03/18 10/03/18 10/03/18 12:21 13:57 15:00 Temperature 98.2 F Pulse Rate 109 H 104 H 106 H Respiratory 20 20 18 Rate Blood Pressure 184/102 161/99 162/93 O2 Sat by Pulse 99 98 97 Oximetry Medical Decision Making - Lab Data Result diagrams: 10/03/18 13:28 10/03/18 13:28 Lab Results 10/03/18 10/03/18 10/03/18 Range/Units 13:28 13:28 13:28 WBC 7.5 (3.8-10.6) k/uL RBC 4.66 (4.30-5.90) m/uL Hgb 13.1 (13.0-17.5) gm/dL Hct 40.1 (39.0-53.0) % MCV 86.2 (80.0-100.0) fL MCH 28.2 (25.0-35.0) pg MCHC 32.7 (31.0-37.0) g/dL RDW 15.0 (11.5-15.5) % Plt Count 342 (150-450) k/uL Neutrophils % 74 % Lymphocytes % 17 % Monocytes % 5 % Eosinophils % 2 % Basophils % 0 % Neutrophils # 5.5 (1.3-7.7) k/uL Lymphocytes # 1.3 (1.0-4.8) k/uL Monocytes # 0.4 (0-1.0) k/uL Eosinophils # 0.2 (0-0.7) k/uL Basophils # 0.0 (0-0.2) k/uL PT 10.2 (9.0-12.0) sec INR 0.9 (<1.2) Sodium 138 (137-145) mmol/L Potassium 4.7 (3.5-5.1) mmol/L Chloride 106 (98-107) mmol/L Carbon Dioxide 22 (22-30) mmol/L Anion Gap 10 mmol/L BUN 12 (9-20) mg/dL Creatinine 0.71 (0.66-1.25) mg/dL Est GFR (CKD-EPI)AfAm >90 (>60 ml/min/1.73 sqM) Est GFR (CKD-EPI)NonAf >90 (>60 ml/min/1.73 sqM) Glucose 115 H (74-99) mg/dL Calcium 9.9 (8.4-10.2) mg/dL Disposition Clinical Impression: Back pain Disposition: OTHER INSTITUTION NOT DEFINED Condition: Fair Referrals: Trav Muniz MD [Primary Care Provider] - 1-2 days Time of Disposition: 15:24 - Out of Hospital Transfer - Req. Specs Out of Hospital Transfer - Requested Specifics: Other Emergency Center ([facility])
--- NOTE | 2018-10-03 13:19 | CT ---
EXAMINATION TYPE: CT lumbar spine wo con DATE OF EXAM: 10/03/2018 1:07 PM COMPARISON: 05/21/2018 HISTORY: Fall, low back pain, back surgery [address] DLP: 1508 mGycm Automated exposure control for dose reduction was used. TECHNIQUE: Unenhanced CT of the lumbar spine was performed. Bone and soft tissue window settings are submitted as well as coronal and sagittal reconstructions. FINDINGS: The lumbar spine vertebral bodies maintain normal vertebral body height and alignment. Inte rvertebral disc cages seen at L3-L4. Pedicular screws and fixation rods traverse the L3-S1 vertebral bodies. Multilevel facet arthropathy and posterior projecting osteophyte at L5-S1 contributing to mil d bilateral neural foraminal narrowing at L5-S1. No significant scoliosis is seen. Transverse process es and visualized ribs appear intact. Multilevel anterior osteophytes are seen. Donor site for interv ertebral disc autograft is seen of the right iliac bone. L1-L2: There is a broad-based disc bulge without spinal canal stenosis or neural foraminal narrowing. L2-L3: There is a broad-based disc bulge and mild facet arthropathy without significant spinal canal stenosis nor neural foraminal narrowing. L3-L4: Intervertebral disc cages seen with persistent facet arthropathy. No significant spinal canal stenosis. Mild right neural foraminal narrowing is suspected however limited evaluation due to spray artifact from the postsurgical change. L4-L5: Resection of the posterior elements is present. No spinal canal stenosis nor neural foraminal narrowing. L5-S1: Resection of the posterior elements is seen. Mild bilateral neural foraminal narrowing from a small posterior osteophyte and facet arthropathy. IMPRESSION: No lumbar spine vertebral body height loss or malalignment. Postsurgical change and mild multilevel d egenerative disc disease as described
[2018-10-03 13:48] LABS: Basophils % (A) 0 %; Eosinophils # (A) 0.2 k/uL (0-0.7); Eosinophils % (A) 2 %; HCT 40.1 % (39.0-53.0); HGB 13.1 gm/dL (13.0-17.5); Lymphocytes # (A) 1.3 k/uL (1.0-4.8); Lymphocytes % (A) 17 %; MCH 28.2 pg (25.0-35.0); MCHC 32.7 g/dL (31.0-37.0); MCV 86.2 fL (80.0-100.0); Mean Platelet Volume 6.9; Monocytes # (A) 0.4 k/uL (0-1.0); Monocytes % (A) 5 %; Neutrophils # (A) 5.5 k/uL (1.3-7.7); Neutrophils % (A) 74 %; Platelet Count 342 k/uL (150-450); RBC 4.66 m/uL (4.30-5.90); WBC 7.5 k/uL (3.8-10.6)
[2018-10-03 14:02] LABS: Anion Gap 10 mmol/L; Blood Urea Nitrogen 12 mg/dL (9-20); Calcium 9.9 mg/dL (8.4-10.2); Carbon Dioxide 22 mmol/L (22-30); Chloride 106 mmol/L (98-107); Glucose 115 mg/dL (74-99); Sodium 138 mmol/L (137-145)
[2018-10-03 14:04] LABS: INR 0.9 (<1.2); Prothrombin Time 10.2 sec (9.0-12.0)
[2018-10-03 14:14] LABS: Potassium 4.7 mmol/L (3.5-5.1)
[2018-10-03 15:01] VITALS: RESP 18
[2018-10-03 16:20] VITALS: BP 130/95; PULSE 91; TEMP 97.8
== END 2018-10-03 16:42 | disposition short-term general hospital (02) ==
LOC: EC 12:19
DX: M54.5 Low back pain (principal); R15.9 Full incontinence of feces; E11.9 Type 2 diabetes mellitus without complications; I10 Essential (primary) hypertension; J45.909 Unspecified asthma, uncomplicated; I25.119 Atherosclerotic heart disease of native coronary artery with unspecified angina pectoris; I25.2 Old myocardial infarction; K21.9 Gastro-esophageal reflux disease without esophagitis; G47.33 Obstructive sleep apnea (adult) (pediatric); Z82.61 Family history of arthritis; Z88.1 Allergy status to other antibiotic agents; Z88.5 Allergy status to narcotic agent; Z88.6 Allergy status to analgesic agent; Z88.8 Allergy status to other drugs, medicaments and biological substances; Z79.52 Long term (current) use of systemic steroids; Z79.84 Long term (current) use of oral hypoglycemic drugs; Z79.891 Long term (current) use of opiate analgesic; Z79.899 Other long term (current) drug therapy; Z86.14 Personal history of Methicillin resistant Staphylococcus aureus infection; Z98.1 Arthrodesis status; Z99.89 Dependence on other enabling machines and devices; W19.XXXA Unspecified fall, initial encounter
CPT/HCPCS: 36415; 80048; 85025; 85610; 72131; 99285; 96374; 96376; J1170

== ENCOUNTER 2018-10-22 14:15 | Emergency (ER) | payer OTHER ==
[2018-10-22 14:25] VITALS: RESP 18
--- NOTE | 2018-10-22 14:38 | ED ---
Abdominal Pain HPI - General Chief Complaint: Abdominal Pain Stated Complaint: Abd Pain Time Seen by Provider: 10/22/18 14:26 Source: patient Limitations: no limitations - History of Present Illness Initial Comments: 52-year-old male presenting today for chief complaint of right flank pain. Patient states he has history of kidney stones as well as right renal cyst. He states in 2013 he had kidney stones however has not had many issues since. Patient states is chronic low back pain however this feels different. He states symptoms began earlier today ~ 12 hours prior to presentation. He states pain is localized to the "right kidney area". He states he has had increased urgency and frequency of urination. He states he is able to urinate however states a small amount. He denies any prostate issues are known to himself. Patient states he feels as though his right flank is going to explode from the pain. Pt states he had blood in his urine. Pt has seen Dr. Gaitan in the past for urological care. Patient denies any recent trauma injury to the back. He did have a surgery in July, he denies any fever or nightsweats. Denies midline back pain, loss of bowel bladder control loss sensation lower extremities or muscle weakness of the lower extremities. He states he does not feel this is associated with his spine. Pt denies abdominal pain, vomiting diarrhea chest pain dyspnea and dyspnea on exertion. Remaining review of systems negative upon arrival patient appears well. Ambulating without difficulty. - Related Data Home Medications Medication Instructions Recorded Confirmed Lisinopril 40 mg PO DAILY 08/01/17 10/22/18 Omeprazole [PriLOSEC] 20 mg PO BID 12/11/17 10/22/18 Methocarbamol [Robaxin-750] 750 mg PO TID PRN 03/25/18 10/22/18 metFORMIN HCL [Glucophage] 500 mg PO BID 04/24/18 10/22/18 Diclofenac Sodium [Voltaren] 75 mg PO BID 10/22/18 10/22/18 HYDROcodone/APAP 10-325MG [[place] 1 tab PO QID PRN 10/22/18 10/22/18 10-325] Hydrochlorothiazide 12.5 mg PO BID 10/22/18 10/22/18 Previous Rx's Medication Instructions Recorded Atorvastatin [Lipitor] 40 mg PO DAILY #90 tab 11/13/18 Diltiazem Cd [Cardizem CD] 300 mg PO DAILY #90 cap.er.24h 05/22/18 Allergies Allergy/AdvReac Type Severity Reaction Status Date / Time doxycycline Allergy Swelling Verified 10/22/18 14:58 ketorolac tromethamine Allergy Rash/Hives Verified 10/22/18 14:58 [From Toradol] morphine Allergy Rash/Hives Verified 10/22/18 14:58 metoclopramide HCl AdvReac Dystonic Verified 10/22/18 14:58 [From Reglan] Reaction prochlorperazine edisylate AdvReac Dystonic Verified 10/22/18 14:58 [From Compazine] Reaction prochlorperazine maleate AdvReac Dystonic Verified 10/22/18 14:58 [From Compazine] Reaction Review of Systems ROS Statement: Those systems with pertinent positive or pertinent negative responses have been documented in the HPI. ROS Other: All systems not noted in ROS Statement are negative. Past Medical History Past Medical History: Asthma, Chest Pain / Angina, Diabetes Mellitus, GERD/Reflux, Hyperlipidemia, Hypertension, Myocardial Infarction ([place]), Mitral Valve Prolapse (MVP), Pulmonary Embolus (PE), Sleep Apnea/CPAP/BIPAP Additional Past Medical History / Comment(s): Obesity, chronic asthmatic bronchitis, previous history of pulmonary embolism, objective sleep apnea, diabetes mellitus, hypertension, hyperlipidemia, previous history of myocardial infarction with underlying coronary artery disease, renal cysts, chronic back pain secondary to herniated lumbar disc disease with symptoms of sciatica, history of right lower extremity fracture at the age of 13, history of C. diff colitis approximately 4 years ago, history of bleeding peptic ulcer, nephrolithiasis, previous history of UTI and secondary sepsis. Last Myocardial Infarction Date:: 2011 History of Any Multi-Drug Resistant Organisms: C-DIFF, MRSA Date of last positivie culture/infection: 2016 MDRO Source:: left axilla Past Surgical History: Appendectomy, Back Surgery, Cholecystectomy, Heart Catheterization, Hernia Repair Additional Past Surgical History / Comment(s): 2008 back surgery with decompression fusion at [facility], 2011, 2016 cardiac cath, multiple ESWL/ureteral stents/ double J catheters, L inquinal hernia repair, PICC line for ABX for urosepsis-since removed., Hx of c-diff. Past Anesthesia/Blood Transfusion Reactions: No Reported Reaction Past Psychological History: No Psychological Hx Reported Smoking Status: Never smoker Past Alcohol Use History: None Reported Past Drug Use History: None Reported - Past Family History Father Family Medical History: Chest Pain / Angina Additional Family Medical History / Comment(s): "lung problems" Mother Family Medical History: Cancer, Chest Pain / Angina, Congestive Heart Failure (CHF), Osteoarthritis (OA), Thyroid Disorder General Exam - General Exam Comments Initial Comments: General: The patient is awake and alert, in no distress, and does not appear acutely ill. Eye: Pupils are equal, round and reactive to light, extra-ocular movements are intact. No nystagmus. There is normal conjunctiva bilaterally. No signs of icterus. Ears, nose, mouth and throat: There are moist mucous membranes and no oral lesi ons. Neck: The neck is supple, there is no tenderness or JVD. Cardiovascular: There is a regular rate and rhythm. No murmur, rub or gallop is appreciated. Respiratory: Lungs are clear to auscultation, respirations are non-labored, breath sounds are equal. No wheezes, stridor, rales, or rhonchi. Gastrointestinal: Soft, non-distended, non-tender abdomen without masses or organomegaly noted. There is no rebound or guarding present. No CVA tenderness. Bowel sounds are unremarkable. Musculoskeletal: Upon inspection of the cervicothoracic and lumbar spine there are healing scars of the lumbar region. No erythema or tenderness to palpation. No midline tension patient from the cervicothoracic and lumbar spine. Normal ROM, no tenderness of the lower extremities equal and comparison bilaterally. Strength 5/5 of the lower extremities equal comparison bilaterally. Sensation intact of the lower extremities equal and comparison bilaterally including the saddle region. Radial pulses equal bilaterally 2+. Neurological: A&O x 3. CN II-XII intact, There are no obvious motor or sensory deficits. Coordination appears grossly intact. Speech is normal. Skin: Skin is warm and dry and no rashes or lesions are noted. Psychiatric: Cooperative, appropriate mood & affect, normal judgment. Limitations: no limitations Course Vital Signs 10/22/18 10/22/18 10/22/18 14:23 16:38 16:46 Temperature 98.5 F 98.2 F Pulse Rate 113 H 97 Respiratory 18 18 Rate Blood Pressure 168/107 155/100 O2 Sat by Pulse 99 98 Oximetry Medical Decision Making - Medical Decision Making 52-year-old male well-known to the emergency department presenting today for right flank pain. Patient states he is experiencing similar pain in the past. He states it feels like his right kidney. Patient states he use to follow urology for this complaint. Patient states he has had increased urgency or frequency. Urinalysis revealed glucose. No ketones. No findings consistent with infection. No hematuria. Patient pain and right CVA region. No midline or paravertebral tenderness of the spine. Denies numbness tingling or loss sensation of the lower extremities. Patient denies fever or chills night sweats. Patient has no abdominal pain on examination. Patient given pain medication stating and can only take Dilaudid. Pt ambulatory with no neurovascu lar deficits. Denies loss of bowel or bladder control. Patient has history of renal cyst and stones. No stones on US, or evidence of obstruction. I discussed the case and reviewed imaging studies with attending provider and labs Dr. Mishra who is agreeable/recommends discharge at this time. Pt appears well. I discussed return parameters as well as importance of outpatient follow-up, patient verbalizes stating. Patient discharged appearing well. Agreeable with return parameters and outpatient f/u. Ambulated without difficulty upon discharge. - Lab Data Result diagrams: 10/22/18 15:08 10/22/18 15:08 Lab Results 10/22/18 10/22/18 10/22/18 Range/Units 14:00 15:08 15:08 WBC 8.4 (3.8-10.6) k/uL RBC 4.09 L (4.30-5.90) m/uL Hgb 11.6 L (13.0-17.5) gm/dL Hct 34.5 L (39.0-53.0) % MCV 84.4 (80.0-100.0) fL MCH 28.5 (25.0-35.0) pg MCHC 33.7 (31.0-37.0) g/dL RDW 15.0 (11.5-15.5) % Plt Count 317 (150-450) k/uL Neutrophils % 70 % Lymphocytes % 20 % Monocytes % 5 % Eosinophils % 2 % Basophils % 1 % Neutrophils # 5.9 (1.3-7.7) k/uL Lymphocytes # 1.7 (1.0-4.8) k/uL Monocytes # 0.4 (0-1.0) k/uL Eosinophils # 0.2 (0-0.7) k/uL Basophils # 0.0 (0-0.2) k/uL Sodium 140 (137-145) mmol/L Potassium 3.9 (3.5-5.1) mmol/L Chloride 108 H (98-107) mmol/L Carbon Dioxide 21 L (22-30) mmol/L Anion Gap 11 mmol/L BUN 16 (9-20) mg/dL Creatinine 0.69 (0.66-1.25) mg/dL Est GFR (CKD-EPI)AfAm >90 (>60 ml/min/1.73 sqM) Est GFR (CKD-EPI)NonAf >90 (>60 ml/min/1.73 sqM) Glucose 148 H (74-99) mg/dL Calcium 9.9 (8.4-10.2) mg/dL Total Bilirubin 0.4 (0.2-1.3) mg/dL AST 18 (17-59) U/L ALT 62 (21-72) U/L Alkaline Phosphatase 113 (38-126) U/L Total Protein 7.0 (6.3-8.2) g/dL Albumin 4.3 (3.5-5.0) g/dL Urine Color Yellow Urine Appearance Clear (Clear) Urine pH 5.5 (5.0-8.0) Ur Specific [place] 1.025 (1.001-1.035) Urine Protein Trace H (Negative) Urine Glucose (UA) 3+ H (Negative) Urine Ketones Negative (Negative) Urine Blood Negative (Negative) Urine Nitrite Negative (Negative) Urine Bilirubin Negative (Negative) Urine Urobilinogen <2.0 (<2.0) mg/dL Ur Leukocyte Esterase Negative (Negative) Disposition Clinical Impression: Right flank pain Disposition: HOME SELF-CARE Condition: Good Instructions (If sedation given, give patient instructions): Flank Pain (ED) Additional Instructions: Please use medication as discussed. Please follow-up with family doctor in the next 2 days, and urology in next 2-3 days. Please return to emergency room if the symptoms increase or worsen or for any other concerns. Is patient prescribed a controlled substance at d/c from ED?: No Referrals: Trav Muniz MD [Primary Care Provider] - 1-2 days Nacho Gaitan MD [STAFF PHYSICIAN] - 1-2 days Time of Disposition: 16:34
[2018-10-22 15:03] LABS: Appearance,Urine Clear (Clear); Bilirubin,Urine Negative (Negative); Blood,Urine Negative (Negative); Color,Urine Yellow; Glucose,Urine (UA) 3+ (Negative); Ketones,Urine Negative (Negative); Leukocyte Esterase,Urine Negative (Negative); Nitrite,Urine Negative (Negative); PH, Urine 5.5 (5.0-8.0); Protein,Urine Trace (Negative); Specific Gravity,Urine 1.025 (1.001-1.035); Urobilinogen,Urine <2.0 mg/dL (<2.0)
[2018-10-22 15:18] LABS: Basophils % (A) 1 %; Eosinophils # (A) 0.2 k/uL (0-0.7); Eosinophils % (A) 2 %; HCT 34.5 % (39.0-53.0); HGB 11.6 gm/dL (13.0-17.5); Lymphocytes # (A) 1.7 k/uL (1.0-4.8); Lymphocytes % (A) 20 %; MCH 28.5 pg (25.0-35.0); MCHC 33.7 g/dL (31.0-37.0); MCV 84.4 fL (80.0-100.0); Mean Platelet Volume 6.3; Monocytes # (A) 0.4 k/uL (0-1.0); Monocytes % (A) 5 %; Neutrophils # (A) 5.9 k/uL (1.3-7.7); Neutrophils % (A) 70 %; Platelet Count 317 k/uL (150-450); RBC 4.09 m/uL (4.30-5.90); WBC 8.4 k/uL (3.8-10.6)
[2018-10-22] MEDS ORDERED: HYDROmorphone 0.5 MG/0.5 ML SYRINGE IVP STA (15:19)
[2018-10-22 15:27] LABS: ALT 62 U/L (21-72); AST 18 U/L (17-59); Albumin 4.3 g/dL (3.5-5.0); Alkaline Phosphatase 113 U/L (38-126); Anion Gap 11 mmol/L; Blood Urea Nitrogen 16 mg/dL (9-20); Calcium 9.9 mg/dL (8.4-10.2); Carbon Dioxide 21 mmol/L (22-30); Chloride 108 mmol/L (98-107); Glucose 148 mg/dL (74-99); Potassium 3.9 mmol/L (3.5-5.1); Sodium 140 mmol/L (137-145); Total Bilirubin 0.4 mg/dL (0.2-1.3)
--- NOTE | 2018-10-22 16:07 | US ---
EXAMINATION TYPE: US kidneys/renal and bladder DATE OF EXAM: 10/22/2018 COMPARISON: CT May 21, 2018 CLINICAL HISTORY: Pain. Pain right side and back x 12 hours. Hx kidney stones, right renal cyst, righ t ureteral stent, lithotripsy, nephrostomy, ureteroscopy, cystoscopy. EXAM MEASUREMENTS: Right Kidney: 12.8 x 7.2 x 5.5 cm Left Kidney: 14.0 x 5.9 x 7.1 cm Post Void Residual Volume: Not performed Right Kidney: Hypoechoic area seen superior/medial measurin.7 x 3.5 x 3.5 cm. Left Kidney: No hydronephrosis or masses seen Bladder: Not fully distended. Appears anechoic. Bilateral Jets seen: Yes Adjacent liver is heterogeneously hyperechoic with scanning right kidney. Technologist roche 3.7 cm r ound hypoechoic anechoic lesion correlates with simple appearing cyst anteriorly upper pole level rig ht kidney. No hydronephrosis is evident in either kidney. Bladder is poorly distended without intralu ysabel mass. Bilateral distal ureter jets are seen. IMPRESSION: No renal stones or hydronephrosis is evident bilaterally on the ultrasound images saved.
[2018-10-22 16:41] VITALS: BP 155/100; PULSE 97
[2018-10-22 16:47] VITALS: TEMP 98.2
== END 2018-10-22 16:46 | disposition home or self-care (01) ==
LOC: EC 14:15
DX: R10.9 Unspecified abdominal pain (principal); R35.0 Frequency of micturition; R39.15 Urgency of urination; M54.5 Low back pain; G89.29 Other chronic pain; I10 Essential (primary) hypertension; E11.9 Type 2 diabetes mellitus without complications; K21.9 Gastro-esophageal reflux disease without esophagitis; I25.2 Old myocardial infarction; G47.33 Obstructive sleep apnea (adult) (pediatric); I25.119 Atherosclerotic heart disease of native coronary artery with unspecified angina pectoris; Z88.1 Allergy status to other antibiotic agents; Z88.5 Allergy status to narcotic agent; Z88.6 Allergy status to analgesic agent; Z88.8 Allergy status to other drugs, medicaments and biological substances; Z79.1 Long term (current) use of non-steroidal anti-inflammatories (NSAID); Z79.84 Long term (current) use of oral hypoglycemic drugs; Z79.899 Other long term (current) drug therapy; Z87.442 Personal history of urinary calculi; Z87.448 Personal history of other diseases of urinary system; Z90.49 Acquired absence of other specified parts of digestive tract; Z95.818 Presence of other cardiac implants and grafts; Z98.1 Arthrodesis status; Z96.0 Presence of urogenital implants; Z99.89 Dependence on other enabling machines and devices
CPT/HCPCS: 36415; 80053; 85025; 81003; 76770; 99284; 96374; J1170

== ENCOUNTER 2018-11-21 20:55 | Emergency (ER) | payer OTHER ==
[2018-11-21] MEDS ORDERED: HYDROmorphone 0.5 MG/0.5 ML SYRINGE IM STA ×2 (22:10→22:54)
--- NOTE | 2018-11-21 23:14 | CT ---
EXAM: CT Lumbar Spine Without Intravenous Contrast CLINICAL HISTORY: Pain TECHNIQUE: Axial computed tomography images of the lumbar spine without intravenous contrast. CTDI is 0.199, 0.285, 49.4 mGy and DLP is 1751.4 mGy-cm. This CT exam was performed using one or more of the following dose reduction techniques: automated exposure control, adjustment of the mA and/or kV according to patient size, and/or use of iterative reconstruction technique. COMPARISON: 10/03/2018 FINDINGS: Vertebrae: Stable postsurgical changes in the lumbosacral spine with posterior fusion of L3-S1 with pedicle screws and fusion rods. Orthopedic hardware appears intact and there is near-anatomic alignment. No acute fracture. Other bones/joints: Stable postsurgical changes in the right ilium. Discs/spinal canal/neural foramina: Intervertebral disc prosthesis at L3-L4. Mild multilevel degenerative changes with facet arthropathy, thickening of the ligamentum flavum, and minimal multilevel foraminal narrowing. No significant osseous spinal stenosis. Soft tissues: Unremarkable. Kidneys and ureters: Small fluid attenuating right renal lesion, likely a cyst. IMPRESSION: No acute osseous abnormality. Mild multilevel degenerative changes are not significantly progressed since prior exam.
[2018-11-21 23:39] VITALS: BP 130/95; RESP 18; TEMP 97.8
--- NOTE | 2018-11-21 23:44 | ED ---
General Adult HPI - General Chief complaint: Back Pain/Injury Stated complaint: Back pain Time Seen by Provider: 11/21/18 21:40 Source: patient, RN notes reviewed, old records reviewed Mode of arrival: wheelchair Limitations: no limitations - History of Present Illness Initial comments: 53-year-old male patient past medical history of fall in September of 2018 which resulted in a number fracture and cord compression for which she had emergent surgery. Patient continued to exacerbation of back pain. Patient reports that he stood up off couch and felt pain in his back. Patient states the pain is in his midline lumbar back region. Patient states that the pain was great causing him to drop down to his knees. Patient states that this was a controlled d escent, denies any fall. Patient denies any paresthesias. Patient denies any loss of bowel or bladder control. Patient denies any lower extremity weakness. Patient is able ambulatory with pain. Patient denies other complaints. Systemic: Pt denies fatigue, ever/chills, rash. Pt denies weakness, night sweats, weight loss. Neuro: Pt denies headache, visual disturbances, syncope or pre-syncope. HEENT: Pt denies ocular discharge or irritation, otalgia, rhinorrhea, pharyngitis or notable lymphadenopathy. Cardiopulmonary: Pt denies chest pain, SOB, heart palpitations, dyspnea on exertion. Abdominal/GI: Pt denies abdominal pain, n/v/d. : Pt denies dysuria, burning w/ urination, frequency/urgency. Denies new onset urinary or bowel incontinence. MSK: Pt denies loss of strength or function in extremities. Neuro: Pt denies new onset weakness, paresthesias. - Related Data Home Medications Medication Instructions Recorded Confirmed Lisinopril 40 mg PO DAILY 08/01/17 11/21/18 Omeprazole [PriLOSEC] 20 mg PO BID 12/11/17 11/21/18 Methocarbamol [Robaxin-750] 750 mg PO TID PRN 03/25/18 11/21/18 metFORMIN HCL [Glucophage] 500 mg PO BID 04/24/18 11/21/18 Diclofenac Sodium [Voltaren] 75 mg PO BID 10/22/18 11/21/18 HYDROcodone/APAP 10-325MG [[place] 1 tab PO QID PRN 10/22/18 11/21/18 10-325] Hydrochlorothiazide 12.5 mg PO BID 10/22/18 11/21/18 Previous Rx's Medication Instructions Recorded Atorvastatin [Lipitor] 40 mg PO DAILY #90 tab 05/22/18 Diltiazem Cd [Cardizem CD] 300 mg PO DAILY #90 cap.er.24h 05/22/18 Allergies Allergy/AdvReac Type Severity Reaction Status Date / Time doxycycline Allergy Swelling Verified 11/21/18 21:21 ketorolac tromethamine Allergy Rash/Hives Verified 11/21/18 21:21 [From Toradol] morphine Allergy Rash/Hives Verified 11/21/18 21:21 metoclopramide HCl AdvReac Dystonic Verified 11/21/18 21:21 [From Reglan] Reaction prochlorperazine edisylate AdvReac Dystonic Verified 11/21/18 21:21 [From Compazine] Reaction prochlorperazine maleate AdvReac Dystonic Verified 11/21/18 21:21 [From Compazine] Reaction Review of Systems ROS Statement: Those systems with pertinent positive or pertinent negative responses have been documented in the HPI. ROS Other: All systems not noted in ROS Statement are negative. Past Medical History Past Medical History: Asthma, Chest Pain / Angina, Diabetes Mellitus, GERD/Reflux, Hyperlipidemia, Hypertension, Myocardial Infarction ([place]), Mitral Valve Prolapse (MVP), Pulmonary Embolus (PE), Sleep Apnea/CPAP/BIPAP Additional Past Medical History / Comment(s): Obesity, chronic asthmatic bronchitis, previous history of pulmonary embolism, objective sleep apnea, diabetes mellitus, hypertension, hyperlipidemia, previous history of myocardial infarction with underlying coronary artery disease, renal cysts, chronic back pain secondary to herniated lumbar disc disease with symptoms of sciatica, history of right lower extremity fracture at the age of 13, history of C. diff colitis approximately 4 years ago, history of bleeding peptic ulcer, nephrolithiasis, previous history of UTI and secondary sepsis. Last Myocardial Infarction Date:: 2011 History of Any Multi-Drug Resistant Organisms: C-DIFF, MRSA Date of last positivie culture/infection: 2016 MDRO Source:: left axilla Past Surgical History: Appendectomy, Back Surgery, Cholecystectomy, Heart Catheterization, Hernia Repair Additional Past Surgical History / Comment(s): 2007 back surgery with decompression fusion at [facility], 2011, 2016 cardiac cath, multiple ESWL/ureteral stents/ double J catheters, L inquinal hernia repair, PICC line for ABX for urosepsis-since removed., Hx of c-diff. Past Anesthesia/Blood Transfusion Reactions: No Reported Reaction Past Psychological History: No Psychological Hx Reported Smoking Status: Never smoker Past Alcohol Use History: None Reported Past Drug Use History: None Reported - Past Family History Father Family Medical History: Chest Pain / Angina Additional Family Medical History / Comment(s): "lung problems" Mother Family Medical History: Cancer, Chest Pain / Angina, Congestive Heart Failure (CHF), Osteoarthritis (OA), Thyroid Disorder General Exam - General Exam Comments Initial Comments: Constitutional: NAD, AOX3, Pt has pleasant affect. HEENT: NC/AT, trachea midline, neck supple, no lymphadenopathy. Posterior pharynx non erythematous, without exudates. External ears appear normal, without discharge. Mucous membranes moist. Eyes PERRLA, EOM intact. There is no scleral icterus. No pallor noted. Cardiopulmonary: RRR, no murmurs, rubs or gallops, no JVD noted. Lungs CTAB in anterior and posterior turner. No peripheral edema. Abdominal exam: Abdomen soft and non-distended. Abdomen non-tender to palpation in all 4 quadrants. Bowel sounds active in LLQ. No hepatosplenomegaly. No ecchymosis Neuro: CN II-XII grossly intact. No nuchal rigidity. MSK: 5 out of 5 strength psoas and quadriceps muscles. Patient laboratory. Sensation intact in upper and lower extremities. No midline tenderness to palpation cervical thoracic spine. Mild tenderness to palpation in lumbar spine. No posterior calf tenderness bilaterally, homans sign negative bilaterally. Posterior tibialis and radial pulse +2 bilaterally. Sensation int act in upper and lower extremities. Full active ROM in upper and lower extremities, 5/5 stregnth. Limitations: no limitations Course Vital Signs 11/21/18 11/21/18 20:57 23:38 Temperature 97.9 F 97.8 F Pulse Rate 110 H 107 H Respiratory 20 18 Rate Blood Pressure 172/95 130/95 O2 Sat by Pulse 98 96 Oximetry Medical Decision Making - Medical Decision Making 53-year-old male patient past medical history of fall in September of 2018 which resulted in a number fracture and cord compression for which she had emergent surgery. Patient continued to exacerbation of back pain. Patient reports that he stood up off couch and felt pain in his back. Patient states the pain is in his midline lumbar back region. Patient states that the pain was great causing him to drop down to his knees. Patient states that this was a controlled descent, denies any fall. Patient denies any paresthesias. Patient denies any loss of bowel or bladder control. Patient denies any lower extremity weakness. Patient is able ambulatory with pain. Patient denies other complaints. Patient vital signs initially displayed hypertension, resolved after adequate analgesia. Physical exam displayed: 5 out of 5 strength psoas and quadriceps muscles. Patient laboratory. Sensation intact in upper and lower extremities. No midline tenderness to palpation cervical thoracic spine. Mild tenderness to palpation in lumbar spine. Acute lumbar displayed no acute osseous abnormality. Mild multilevel degenerative changes are not significantly progressed since prior exam. Patient will be discharged with follow-up with primary care physi ayesha as well as orthopedic surgeon who conducted surgery. Patient return to ER immediately if condition worsens. Case discussed with Dr. Bates. PT not driving home. Disposition Clinical Impression: Back pain Disposition: HOME SELF-CARE Condition: Stable Instructions (If sedation given, give patient instructions): Acute Low Back Pain (ED), Chronic Back Pain (ED) Additional Instructions: Patient to adhere to previously discussed treatment plan and will take medication(s) as directed. Patient to follow up with PCP in 1-2 days. Patient to return to ED if symptoms do not improve. Follow-up with primary care provider. Follow up with orthopedic surgeon who conducted back operation. Follow-up with both within 1-2 days. Return to ER immediately if condition worsens. Is patient prescribed a controlled substance at d/c from ED?: No Referrals: Trav Muniz MD [Primary Care Provider] - 1-2 days
[2018-11-21 23:51] VITALS: PULSE 104
== END 2018-11-21 23:50 | disposition home or self-care (01) ==
LOC: EC 20:55
DX: M54.9 Dorsalgia, unspecified (principal); I10 Essential (primary) hypertension; K21.9 Gastro-esophageal reflux disease without esophagitis; E11.9 Type 2 diabetes mellitus without complications; I25.2 Old myocardial infarction; G47.30 Sleep apnea, unspecified; I25.119 Atherosclerotic heart disease of native coronary artery with unspecified angina pectoris; E66.9 Obesity, unspecified; Z68.41 Body mass index [BMI] 40.0-44.9, adult; Z79.84 Long term (current) use of oral hypoglycemic drugs; Z79.899 Other long term (current) drug therapy; Z88.1 Allergy status to other antibiotic agents; Z88.5 Allergy status to narcotic agent; Z88.8 Allergy status to other drugs, medicaments and biological substances; Z95.5 Presence of coronary angioplasty implant and graft; Z86.711 Personal history of pulmonary embolism
CPT/HCPCS: 72131; 99284; 96372 ×2; J1170

== ENCOUNTER 2018-11-30 01:46 | Emergency (ER) | payer OTHER ==
[2018-11-30] MEDS ORDERED: HYDROmorphone 1 MG/ML 1 ML SYRINGE IM STA ×2 (02:25→03:14)
--- NOTE | 2018-11-30 02:59 | CT ---
EXAM: CT Lumbar Spine Without Intravenous Contrast CLINICAL HISTORY: ITS.REASON CT Reason: Pain, fall TECHNIQUE: Axial computed tomography images of the lumbar spine without intravenous contrast. CTDI is 41 mGy and DLP is 1698 mGy-cm. This CT exam was performed using one or more of the following dose reduction techniques: automated exposure control, adjustment of the mA and/or kV according to patient size, and/or use of iterative reconstruction technique. COMPARISON: 11/21/18 CT lumbar spine FINDINGS: Vertebrae: No acute fracture. Discs/spinal canal/neural foramina: No spinal canal stenosis. Soft tissues: Unremarkable. Fusion hardware and postsurgical changes are unchanged. IMPRESSION: No acute fracture or subluxation.
--- NOTE | 2018-11-30 03:10 | ED ---
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 Witnessed: no Place Fall Occurred: home Loss of Consciousness: none Prolonged Down Time?: no Location: back Severity: moderate Quality: dull Context: tripped/slipped - Related Data Home Medications Medication Instructions Recorded Confirmed Lisinopril 40 mg PO DAILY 08/01/17 11/21/18 Omeprazole [PriLOSEC] 20 mg PO BID 12/11/17 11/21/18 Methocarbamol [Robaxin-750] 750 mg PO TID PRN 03/25/18 11/21/18 metFORMIN HCL [Glucophage] 500 mg PO BID 04/24/18 11/21/18 Diclofenac Sodium [Voltaren] 75 mg PO BID 10/22/18 11/21/18 HYDROcodone/APAP 10-325MG [[place] 1 tab PO QID PRN 10/22/18 11/21/18 10-325] Hydrochlorothiazide 12.5 mg PO BID 10/22/18 11/21/18 Previous Rx's Medication Instructions Recorded Atorvastatin [Lipitor] 40 mg PO DAILY #90 tab 05/22/18 Diltiazem Cd [Cardizem CD] 300 mg PO DAILY #90 cap.er.24h 05/22/18 Allergies Allergy/AdvReac Type Severity Reaction Status Date / Time doxycycline Allergy Swelling Verified 11/30/18 02:01 ketorolac tromethamine Allergy Rash/Hives Verified 11/30/18 02:01 [From Toradol] morphine Allergy Rash/Hives Verified 11/30/18 02:01 metoclopramide HCl AdvReac Dystonic Verified 11/30/18 02:01 [From Reglan] Reaction prochlorperazine edisylate AdvReac Dystonic Verified 11/30/18 02:01 [From Compazine] Reaction prochlorperazine maleate AdvReac Dystonic Verified 11/30/18 02:01 [From Compazine] Reaction Review of Systems ROS Statement: Those systems with pertinent positive or pertinent negative responses have been documented in the HPI. ROS Other: All systems not noted in ROS Statement are negative. Constitutional: Denies: fever, chills, weakness Respiratory: Denies: cough, dyspnea Cardiovascular: Denies: chest pain, syncope Gastrointestinal: Denies: abdominal pain Genitourinary: Denies: dysuria, frequency Musculoskeletal: Reports: back pain Skin: Denies: rash Neurological: Denies: headache, weakness, numbness Past Medical History Past Medical History: Asthma, Chest Pain / Angina, Diabetes Mellitus, GERD/Reflux, Hyperlipidemia, Hypertension, Myocardial Infarction ([place]), Mitral Valve Prolapse (MVP), Pulmonary Embolus (PE), Sleep Apnea/CPAP/BIPAP Additional Past Medical History / Comment(s): Obesity, chronic asthmatic bronchitis, previous history of pulmonary embolism, objective sleep apnea, diabetes mellitus, hypertension, hyperlipidemia, previous history of myocardial infarction with underlying coronary artery disease, renal cysts, chronic back pain secondary to herniated lumbar disc disease with symptoms of sciatica, history of right lower extremity fracture at the age of 13, history of C. diff colitis approximately 4 years ago, history of bleeding peptic ulcer, nephrolithiasis, previous history of UTI and secondary sepsis. Last Myocardial Infarction Date:: 2011 History of Any Multi-Drug Resistant Organisms: C-DIFF, MRSA Date of last positivie culture/infection: 2015 MDRO Source:: left axilla Past Surgical History: Appendectomy, Back Surgery, Cholecystectomy, Heart Catheterization, Hernia Repair Additional Past Surgical History / Comment(s): 2008 back surgery with decompression fusion at [facility], 2011, 2016 cardiac cath, multiple ESWL/ureteral stents/ double J catheters, L inquinal hernia repair, PICC line for ABX for urosepsis-since removed., Hx of c-diff. Past Anesthesia/Blood Transfusion Reactions: No Reported Reaction Past Psychological History: No Psychological Hx Reported Smoking Status: Never smoker Past Alcohol Use History: None Reported Past Drug Use History: None Reported - Past Family History Father Family Medical History: Chest Pain / Angina Additional Family Medical History / Comment(s): "lung problems" Mother Family Medical History: Cancer, Chest Pain / Angina, Congestive Heart Failure (CHF), Osteoarthritis (OA), Thyroid Disorder General Exam Limitations: no limitations General appearance: alert, in no apparent distress Head exam: Present: atraumatic, normocephalic Eye exam: Present: normal appearance. Absent: scleral icterus, conjunctival injection Respiratory exam: Present: normal lung sounds bilaterally. Absent: respiratory distress, wheezes, rales, rhonchi, stridor Cardiovascular Exam: Present: regular rate, normal rhythm, normal heart sounds. Absent: systolic murmur, diastolic murmur, rubs, gallop GI/Abdominal exam: Present: soft. Absent: tenderness, guarding, rebound, rigid Extremities exam: Present: normal inspection, normal capillary refill. Absent: pedal edema, calf tenderness Back exam: Present: normal inspection, paraspinal tenderness, vertebral tenderness. Absent: CVA tenderness (R), CVA tenderness (L) Skin exam: Present: warm, dry, intact, normal color. Absent: rash Course Vital Signs 11/30/18 11/30/18 01:57 03:32 Temperature 98.9 F 98 F Pulse Rate 126 H 77 Respiratory 22 18 Rate Blood Pressure 183/107 143/79 O2 Sat by Pulse 98 97 Oximetry Medical Decision Making - Medical Decision Making Patient's 53-year-old man with low back pain. He has had recent surgery and therefore imaging ordered, despite relatively low mechanism fall area patient's study is negative and he is feeling somewhat better and wanted to go home. Disposition Clinical Impression: Fall, Low back pain Disposition: HOME SELF-CARE Condition: Fair Instructions (If sedation given, give patient instructions): Fall Prevention for Older Adults (ED), Chronic Back Pain ([place]) Is patient prescribed a controlled substance at d/c from ED?: No Referrals: Trav Muniz MD [Primary Care Provider] - 1-2 days
[2018-11-30 03:33] VITALS: BP 143/79; PULSE 77; RESP 18; TEMP 98
== END 2018-11-30 03:35 | disposition home or self-care (01) ==
LOC: EC 01:46
DX: M54.5 Low back pain (principal); E11.9 Type 2 diabetes mellitus without complications; K21.9 Gastro-esophageal reflux disease without esophagitis; I10 Essential (primary) hypertension; I25.2 Old myocardial infarction; I25.10 Atherosclerotic heart disease of native coronary artery without angina pectoris; G47.30 Sleep apnea, unspecified; Z99.89 Dependence on other enabling machines and devices; E66.9 Obesity, unspecified; Z68.41 Body mass index [BMI] 40.0-44.9, adult; Z86.711 Personal history of pulmonary embolism; Z86.14 Personal history of Methicillin resistant Staphylococcus aureus infection; Z79.84 Long term (current) use of oral hypoglycemic drugs; Z79.899 Other long term (current) drug therapy; Z88.1 Allergy status to other antibiotic agents; Z88.5 Allergy status to narcotic agent; Z88.6 Allergy status to analgesic agent; Z88.8 Allergy status to other drugs, medicaments and biological substances; Z95.818 Presence of other cardiac implants and grafts; W01.0XXA Fall on same level from slipping, tripping and stumbling without subsequent striking against object, initial encounter; Y92.89 Other specified places as the place of occurrence of the external cause
CPT/HCPCS: 99284; 96372 ×2; 72131; J1170

== ENCOUNTER 2018-12-29 08:34 | Emergency (ER) | payer OTHER ==
[2018-12-29 08:42] VITALS: BP 151/87; PULSE 116; RESP 18; TEMP 98.2
[2018-12-29] MEDS ORDERED: HYDROmorphone 0.5 MG/0.5 ML SYRINGE IVP STA (09:12)
--- NOTE | 2018-12-29 09:17 | ED ---
Back Pain HPI - General Chief Complaint: Back Pain/Injury Stated Complaint: back pain, leg numbness Time Seen by Provider: 12/29/18 08:47 Source: patient Limitations: no limitations - History of Present Illness Initial Comments: 53-year-old male with history of cauda equina, degenerative changes of the back and previous herniations presenting today for chief complaint of low back pain right leg is weakness and numbness and loss of bowel control. Patient states this morning he felt like he strained his back. Stand up his right leg gave out secondary to weakness. He states that he has a tingling sensation radial the right leg and this feels similar to the time that he had cauda equina in the past. Patient states that he lost bowel control and this was very concerning to him. Patient states he has not urinated this morning. Patient denies urge to. Patient denies any fever chills night sweats. Patient denies any headache dizziness nausea. Remaining review of system negative. Upon arrival patient appears uncomfortable. - Related Data Home Medications Medication Instructions Recorded Confirmed Lisinopril 40 mg PO DAILY 08/01/17 12/29/18 Omeprazole [PriLOSEC] 20 mg PO BID 12/11/17 12/29/18 Methocarbamol [Robaxin-750] 750 mg PO TID PRN 03/25/18 12/29/18 metFORMIN HCL [Glucophage] 500 mg PO BID 04/24/18 12/29/18 Diclofenac Sodium [Voltaren] 75 mg PO BID 10/22/18 12/29/18 HYDROcodone/APAP 10-325MG [[place] 1 tab PO QID PRN 10/22/18 12/29/18 10-325] Hydrochlorothiazide 12.5 mg PO BID 10/22/18 12/29/18 Previous Rx's Medication Instructions Recorded Atorvastatin [Lipitor] 40 mg PO DAILY #90 tab 05/22/18 Diltiazem Cd [Cardizem CD] 300 mg PO DAILY #90 cap.er.24h 05/22/18 Allergies Allergy/AdvReac Type Severity Reaction Status Date / Time doxycycline Allergy Swelling Verified 12/29/18 09:19 ketorolac tromethamine Allergy Rash/Hives Verified 12/29/18 09:19 [From Toradol] morphine Allergy Rash/Hives Verified 12/29/18 09:19 metoclopramide HCl AdvReac Dystonic Verified 12/29/18 09:19 [From Reglan] Reaction prochlorperazine edisylate AdvReac Dystonic Verified 12/29/18 09:19 [From Compazine] Reaction prochlorperazine maleate AdvReac Dystonic Verified 12/29/18 09:19 [From Compazine] Reaction Review of Systems ROS Statement: Those systems with pertinent positive or pertinent negative responses have been documented in the HPI. ROS Other: All systems not noted in ROS Statement are negative. Past Medical History Past Medical History: Asthma, Chest Pain / Angina, Diabetes Mellitus, SOFÍA D/Reflux, Hyperlipidemia, Hypertension, Myocardial Infarction ([place]), Mitral Valve Prolapse (MVP), Pulmonary Embolus (PE), Sleep Apnea/CPAP/BIPAP Additional Past Medical History / Comment(s): Obesity, chronic asthmatic bronchitis, previous history of pulmonary embolism, objective sleep apnea, diabetes mellitus, hypertension, hyperlipidemia, previous history of myocardial infarction with underlying coronary artery disease, renal cysts, chronic back pain secondary to herniated lumbar disc disease with symptoms of sciatica, history of right lower extremity fracture at the age of 13, history of C. diff colitis approximately 4 years ago, history of bleeding peptic ulcer, nephrolithiasis, previous history of UTI and secondary sepsis. Last Myocardial Infarction Date:: 2011 History of Any Multi-Drug Resistant Organisms: C-DIFF, MRSA Date of last positivie culture/infection: 2016 MDRO Source:: left axilla Past Surgical History: Appendectomy, Back Surgery, Cholecystectomy, Heart Catheterization, Hernia Repair Additional Past Surgical History / Comment(s): 2007 back surgery with decompression fusion at [facility], 2011, 2016 cardiac cath, multiple ESWL/ureteral stents/ double J catheters, L inquinal hernia repair, PICC line for ABX for urosepsis-since removed., Hx of c-diff. Past Anesthesia/Blood Transfusion Reactions: No Reported Reaction Past Psychological History: No Psychological Hx Reported Smoking Status: Never smoker Past Alcohol Use History: None Reported Past Drug Use History: None Reported - Past Family History Father Family Medical History: Chest Pain / Angina Additional Family Medical History / Comment(s): "lung problems" Mother Family Medical History: Cancer, Chest Pain / Angina, Congestive Heart Failure (CHF), Osteoarthritis (OA), Thyroid Disorder General Exam - General Exam Comments Initial Comments: General: The patient is awake and alert, in no distress, and does not appear ac utely ill. Eye: Pupils are equal, round and reactive to light, extra-ocular movements are intact. No nystagmus. There is normal conjunctiva bilaterally. No signs of icterus. Ears, nose, mouth and throat: There are moist mucous membranes and no oral lesions. Neck: The neck is supple, there is no tenderness or JVD. Cardiovascular: There is a regular rate and rhythm. No murmur, rub or gallop is appreciated. Respiratory: Lungs are clear to auscultation, respirations are non-labored, breath sounds are equal. No wheezes, stridor, rales, or rhonchi. Gastrointestinal: Soft, non-distended, non-tender abdomen without masses or organomegaly noted. There is no rebound or guarding present. No CVA tenderness. Bowel sounds are unremarkable. Musculoskeletal: Decreased strenght of RLE. Pt states sensation in right LE is decreased in comparison with left. Decreased DTR on right LE. Normal ROM of hips/knees b/l. Patient complains of bakc pain. (+) SLR b/l. Strength 5/5 of the left LE. Sensation intact left LE. DP pulses equal bilaterally 2+. No rectal tone on exam. Neurological: A&O x 3. CN II-XII intact, There are no obvious motor or sensory deficits. Coordination appears grossly intact. Speech is normal. Skin: Skin is warm and dry and no rashes or lesions are noted. Psychiatric: Cooperative, appropriate mood & affect, normal judgment. Limitations: no limitations Course Vital Signs 12/29/18 08:39 Temperature 98.2 F Pulse Rate 116 H Respiratory 18 Rate Blood Pressure 151/87 O2 Sat by Pulse 99 Oximetry Medical Decision Making - Medical Decision Making 53-year-old male presenting for low back pain and right leg weakness and loss sensation and loss of bowel control. Physical examination findings concerning for cauda equina. Patient had no rectal tone. Patient had weakness of the right leg with decreased/near absent DTR in the right LE. Patient states he refuses to go to [facility] where he previously received emergent decompression. Patient requesting [facility] transfer. I discussed case attending provider he is agreeable to transfer for emergent MRI and surgical decompression. I contacted [facility] speaking with emergency physician, Dr. Butts who accepted transfer. Patient was given IV analagesics and decadron 20mg IV in the ER. Jaramillo placed. Patient transferred by EMS. Disposition Clinical Impression: Cauda equina syndrome Disposition: OTHER INSTITUTION NOT DEFINED Condition: Serious Is patient prescribed a controlled substance at d/c from ED?: No Referrals: Trav Muniz MD [Primary Care Provider] - 1-2 days Time of Disposition: 09:32 - Out of Hospital Transfer - Req. Specs Out of Hospital Transfer - Requested Specifics: Other Emergency Center (Dr. Butts)
[2018-12-29] MEDS ORDERED: DEXAMETHASONE SOD PHOSPHATE 20 MG in DEXTROSE 5% IN WATER 50 ML IV STA ×2 (09:25)
== END 2018-12-29 10:19 | disposition other institution (70) ==
LOC: EC 08:34
DX: G83.4 Cauda equina syndrome (principal); E11.9 Type 2 diabetes mellitus without complications; I10 Essential (primary) hypertension; K21.9 Gastro-esophageal reflux disease without esophagitis; G47.39 Other sleep apnea; I25.2 Old myocardial infarction; Z79.84 Long term (current) use of oral hypoglycemic drugs; Z79.899 Other long term (current) drug therapy; Z88.5 Allergy status to narcotic agent; Z88.8 Allergy status to other drugs, medicaments and biological substances; Z88.1 Allergy status to other antibiotic agents; Z88.6 Allergy status to analgesic agent; Z86.14 Personal history of Methicillin resistant Staphylococcus aureus infection; Z87.440 Personal history of urinary (tract) infections; Z97.8 Presence of other specified devices; Z95.818 Presence of other cardiac implants and grafts; Z99.89 Dependence on other enabling machines and devices
CPT/HCPCS: 99284; 96365; 96375; 51702; J1100; J1170

== ENCOUNTER 2019-01-24 22:08 | Observation (INO) | payer OTHER ==
[2019-01-24] MEDS ORDERED: NITROGLYCERIN SL TABS 0.4 MG TAB SUBLINGUAL PRN (22:42)
[2019-01-24] MEDS ORDERED: HEPARIN SOD,PORK IN 0.45% NACL 25,000 UNIT in 0.45% NACL 1 250ML.BAG IV SCH (22:45)
[2019-01-24] MEDS: NITROGLYCERIN OINT 1 INCH/GM PACKET TOPICAL SCH (22:56)
--- NOTE | 2019-01-24 22:59 | ED ---
General Adult HPI - General Chief complaint: Chest Pain Stated complaint: Chest pain Time Seen by Provider: 01/24/19 22:10 Source: patient, EMS Mode of arrival: EMS Limitations: no limitations - History of Present Illness Initial comments: Dictation was produced using [facility] [facility] dictation software. please excuse any grammatical, word or spelling errors. Chief Complaint: 53-year-old male transferred from [facility] for chest pain. History of Present Illness: CT-year-old male transferred from [facility] for chest pain. Patient states that he initially went to [facility] for chief complaint of chest pain. Patient states that his pain is sharp with radiation to the back. He reports that he was cutting his grass was happening. He also complains of some mild shortness of breath. Patient has history of coronary artery disease. He was seen and evaluated [facility] and transferred for unstable angina. The ROS documented in this emergency department record has been reviewed and confirmed by me. Those systems with pertinent positive or negative responses have been documented in the HPI. All other systems are other negative and/or noncontributory. PHYSICAL EXAM: General Impression: Alert and oriented x3, not in acute distress HEENT: Normocephalic atraumatic, extra-ocular movements intact, pupils equal and reactive to light bilaterally, mucous membranes moist. Cardiovascular: Heart regular rate and rhythm, S1&S2 audible, no murmurs, rubs or gallops Chest: Lungs clear to auscultation bilaterally, no rhonchi, no wheeze, no rales Abdomen: Bowel sounds present, abdomen soft, non-tender, non-distended, no organomegaly Musculoskeletal: Pulses present and equal in all extremities, no peripheral edema Motor: no focal deficits noted Neurological: CN II-XII grossly intact, no focal motor or sensory deficits noted Skin: Intact with no visualized rashes Psych: Normal affect and mood ED course: 53-year-old male transferred from [facility] for concerns of chest pain. He was sent over for tendon diagnosis of unstable angina. Chart was reviewed from [facility]. Patient evaluated bedside from been stable medical condition. EKG was performed here with no acute findings of ischemia or infarction. Patient resting comfortably at [facility]. Continue on heparin and converted to Nitropaste. Patient be admitted to observation for surgical and cardiology consultation. EKG interpretation: Ventricular rate 104, sinus tachycardia,. 162, QRS 110, QTc 512. No ND prolongation, no QTC prolongation, no ST or T-wave changes noted. EKG compared to fibular second 2018 showing no changes. Overall, this EKG is unremarkable - Related Data Home Medications Medication Instructions Recorded Confirmed Lisinopril 40 mg PO DAILY 08/01/17 01/24/19 Omeprazole [PriLOSEC] 20 mg PO BID 12/11/17 01/24/19 Methocarbamol [Robaxin-750] 750 mg PO TID PRN 03/25/18 01/24/19 metFORMIN HCL [Glucophage] 500 mg PO BID 04/24/18 01/24/19 Diclofenac Sodium [Voltaren] 75 mg PO BID 10/22/18 01/24/19 HYDROcodone/APAP 10-325MG [[place] 1 tab PO QID PRN 10/22/18 01/24/19 10-325] Hydrochlorothiazide 12.5 mg PO BID 10/22/18 01/24/19 Previous Rx's Medication Instructions Recorded Atorvastatin [Lipitor] 40 mg PO DAILY #90 tab 05/22/18 Diltiazem Cd [Cardizem CD] 300 mg PO DAILY #90 cap.er.24h 05/22/18 Allergies Allergy/AdvReac Type Severity Reaction Status Date / Time doxycycline Allergy Swelling Verified 01/24/19 22:16 ketorolac tromethamine Allergy Rash/Hives Verified 01/24/19 22:16 [From Toradol] morphine Allergy Rash/Hives Verified 01/24/19 22:16 metoclopramide HCl AdvReac Dystonic Verified 01/24/19 22:16 [From Reglan] Reaction prochlorperazine edisylate AdvReac Dystonic Verified 01/24/19 22:16 [From Compazine] Reaction prochlorperazine maleate AdvReac Dystonic Verified 01/24/19 22:16 [From Compazine] Reaction Review of Systems ROS Statement: Those systems with pertinent positive or pertinent negative responses have been documented in the HPI. ROS Other: All systems not noted in ROS Statement are negative. Past Medical History Past Medical History: Asthma, Chest Pain / Angina, Diabetes Mellitus, GERD/Reflux, Hyperlipidemia, Hypertension, Myocardial Infarction ([place]), Mitral Valve Prolapse (MVP), Pulmonary Embolus ([place]), Sleep Apnea/CPAP/BIPAP Additional Past Medical History / Comment(s): Obesity, chronic asthmatic bronchitis, previous history of pulmonary embolism, objective sleep apnea, diabetes mellitus, hypertension, hyperlipidemia, previous history of myocardial infarction with underlying coronary artery disease, renal cysts, chronic back pain secondary to herniated lumbar disc disease with symptoms of sciatica, history of right lower extremity fracture at the age of 13, history of C. diff colitis approximately 4 years ago, history of bleeding peptic ulcer, nephrolithiasis, previous history of UTI and secondary sepsis. Last Myocardial Infarction Date:: 2011 History of Any Multi-Drug Resistant Organisms: C-DIFF, MRSA Date of last positivie culture/infection: 2015 MDRO Source:: left axilla Past Surgical History: Appendectomy, Back Surgery, Cholecystectomy, Heart Catheterization, Hernia Repair Additional Past Surgical History / Comment(s): 2007 back surgery with deco mpression fusion at [facility], 2011, 2016 cardiac cath, multiple ESWL/ureteral stents/ double J catheters, L inquinal hernia repair, PICC line for ABX for urosepsis-since removed., Hx of c-diff. Past Anesthesia/Blood Transfusion Reactions: No Reported Reaction Past Psychological History: No Psychological Hx Reported Smoking Status: Never smoker Past Alcohol Use History: None Reported Past Drug Use History: None Reported - Past Family History Father Family Medical History: Chest Pain / Angina Additional Family Medical History / Comment(s): "lung problems" Mother Family Medical History: Cancer, Chest Pain / Angina, Congestive Heart Failure (CHF), Osteoarthritis ([place]), Thyroid Disorder General Exam Limitations: no limitations Course Vital Signs 01/24/19 22:33 Temperature 98.7 F Pulse Rate 98 Respiratory 20 Rate Blood Pressure 147/100 O2 Sat by Pulse 100 Oximetry Disposition Clinical Impression: Chest pain Disposition: ADMITTED IP TO THIS HOSP Condition: Fair Referrals: Trav Muniz MD [Primary Care Provider] - 1-2 days Decision Time: 22:59
[2019-01-25] MEDS: HYDROcodone/APAP 10-325MG 1 EACH TAB PO PRN ×3 (00:32→13:59)
[2019-01-25] MEDS: NITROGLYCERIN OINT 1 INCH/GM PACKET TOPICAL SCH (06:16)
[2019-01-25 06:49] LABS: Glucose,Whole Blood 149 mg/dL (75-99)
[2019-01-25 07:22] LABS: Cholesterol 198 mg/dL (<200); HDL Cholesterol 34 mg/dL (40-60); LDL Cholesterol,Calculated 90 mg/dL (0-99); Triglycerides 369 mg/dL (<150)
--- NOTE | 2019-01-25 10:56 | P.CRDCN ---
History of Present Illness History of present illness: This is a pleasant 53-year-old male past medical history significant for diabetes mellitus, hypertension, dyslipidemia, asthma, chronic back pain s/p recent lumbar surgery 2 months ago per the patient. He follows in the office with Dr. Arora. We have been asked to see him in consultation for chest pain. He states yesterday he was cutting grass in the afternoon and became extremely hot and tired. Afterwards he went in to sit down and rest and started having a sharp stabbing pain in the mid-sternal region with radiation to the left shoulder, left upper back and left neck. The pain was constant and persistent. He initially presented to [facility] for evaluation. Initial troponin was negative, EKG unremarkable, chest xray negative for an acute process, CT chest revealed infiltrate in the right lower base with no evidence of aortic dissection or aneurysm. He was transferred here for further evaluation. At the time of my exam he is seen and examined laying flat in bed groaning in pain. He states the pain has been ongoing since yesterday with no relief. He has been given nitro and states it did not relieve his pain and caused a headache. He is also complaining of significant pain in the lower back. EKG reveals sinus mechanism, mildly tachycardic at [address] or T- wave changes. Laboratory reviewed, troponin negative x2, potassium 3.5, sodium 137, lactic acid 2.8, WBC 7.3, hgb 12.5. Current cardiac medications include atorvastatin 40 mg daily, diltiazem 300 mg daily, hydrochlorothiazide 12.5 mg BID and lisinopril 40 mg daily. Most recent stress test performed 08/2018 was a stress echo revealed no evidence of stress induced ischemia. Most recent echocardiogram 05/2018 revealed preserved LV systolic function with EF 55-60%. Most recent catheterization 2016 revealed normal coronary arteries with no obstructive CAD. At the time of my exam: CONSTITUTIONAL: Denies fever. Denies chills. EYES: Denies blurred vision. Denies vision changes. Denies eye pain. EARS, NOSE, MOUTH & THROAT: Denies headache. Denies sore throat. Denies ear pain. CARDIOVASCULAR: Complains of sharp stabbing midsternal chest pain. Denies shortness of breath. Denies orthopnea. Denies PND. Denies palpitations. RESPIRATORY: Denies cough. GASTROINTESTINAL: Denies abdominal pain. Denies diarrhea. Denies constipation. Denies nausea. Denies vomiting. MUSCULOSKELETAL: Complains of aching making lower back pain. INTEGUMENTARY: Denies pruitis. Denies rash. NEUROLOGIC: Denies numbness. Denies tingling. Denies weakness. PSYCHIATRIC: Denies anxiety. Denies depression. ENDOCRINE: Denies fatigue. Denies weight change. Denies polydipsia. Denies polyurina. GENITOURINARY: Denies burning, hematuria or urgency with micturation. HEMATOLOGIC: Denies history of anemia. Denies bleeding. Blood pressure 155/94 heart rate 72 afebrile maintaining oxygen saturation on r oom air GENERAL: This is a 53-year-old male in no apparent distress at the time of my examination. HEENT: Head is atraumatic, normocephalic. Pupils are equal, round. Sclerae anicteric. Conjunctivae are clear. Mucous membranes of the mouth are moist. Neck is supple. There is no jugular venous distention. No carotid bruit is heard. LUNGS: Clear to auscultation no wheezes, rales or rhonchi. No chest wall tenderness is noted on palpation or with deep breathing. HEART: Regular rate and rhythm without murmurs, rubs or gallops. S1 and S2 heard. ABDOMEN: Soft, nontender. Bowel sounds are heard. No organomegaly noted. EXTREMITIES: No evidence of peripheral edema and no calf tenderness noted. VASCULAR: Radial and dorsalis pedis pulses palpated, no evidence of clubbing. NEUROLOGIC: Patient is awake, alert and oriented x3. ASSESSMENT Chest pain, atypical for angina. An acute coronary event has been ruled out. Hypertension Dyslipidemia Diabetes mellitus Chronic back pain PLAN There is no evidence to suggest ischemic coronary artery disease. Recent stress test was unremarkable and normal catheterization in 2017 with no evidence of obstructive disease. An acute coronary event has been ruled out. Repeat echocardiogram and doppler study to assess cardiac structure and function. Follow up with Dr. Arora in 2 weeks. Thank you kindly for this consultation. Nurse Practitioner note has been reviewed, I agree with a documented findings and plan of care. Patient was seen and examined. Past Medical History Past Medical History: Asthma, Chest Pain / Angina, Diabetes Mellitus, GERD/Reflux, Hyperlipidemia, Hypertension, Myocardial Infarction ([place]), Mitral Valve Prolapse (MVP), Pulmonary Embolus (PE), Sleep Apnea/CPAP/BIPAP Additional Past Medical History / Comment(s): Obesity, chronic asthmatic bronchitis, previous history of pulmonary embolism, objective sleep apnea, diabetes mellitus, hypertension, hyperlipidemia, previous history of myocardial infarction with underlying coronary artery disease, renal cysts, chronic back pain secondary to herniated lumbar disc disease with symptoms of sciatica, histo ry of right lower extremity fracture at the age of 13, history of C. diff colitis approximately 4 years ago, history of bleeding peptic ulcer, nephrolithiasis, previous history of UTI and secondary sepsis. Last Myocardial Infarction Date:: 2011 History of Any Multi-Drug Resistant Organisms: C-DIFF, MRSA Date of last positivie culture/infection: 2015 MDRO Source:: left axilla Past Surgical History: Appendectomy, Back Surgery, Cholecystectomy, Heart Catheterization, Hernia Repair Additional Past Surgical History / Comment(s): 2007 back surgery with decompression fusion at [facility], 2011, 2016 cardiac cath, multiple ESWL/ureteral stents/ double J catheters, L inquinal hernia repair, PICC line for ABX for urosepsis-since removed., Hx of c-diff. 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 Smoking Status: Never smoker Past Alcohol Use History: None Reported Past Drug Use History: None Reported - Past Family History Father Family Medical History: Chest Pain / Angina Additional Family Medical History / Comment(s): "lung problems" Mother Family Medical History: Cancer, Chest Pain / Angina, Congestive Heart Failure (CHF), Osteoarthritis (OA), Thyroid Disorder Medications and Allergies Home Medications Medication Instructions Recorded Confirmed Type Lisinopril 40 mg PO DAILY 08/01/17 01/24/19 History Omeprazole [PriLOSEC] 20 mg PO BID 12/11/17 01/24/19 History Methocarbamol [Robaxin-750] 750 mg PO TID PRN 03/25/18 01/24/19 History metFORMIN HCL [Glucophage] 500 mg PO BID 04/24/18 01/24/19 History Atorvastatin [Lipitor] 40 mg PO DAILY #90 tab 05/22/18 01/24/19 Rx Diltiazem Cd [Cardizem CD] 300 mg PO DAILY #90 cap.er.24h 05/22/18 01/24/19 Rx Diclofenac Sodium [Voltaren] 75 mg PO BID 10/22/18 01/24/19 History HYDROcodone/APAP 10-325MG [[place] 1 tab PO QID PRN 10/22/18 01/24/19 History 10-325] Hydrochlorothiazide 12.5 mg PO BID 10/22/18 01/24/19 History Allergies Allergy/AdvReac Type Severity Reaction Status Date / Time doxycycline Allergy Swelling Verified 01/24/19 22:16 ketorolac tromethamine Allergy Rash/Hives Verified 01/24/19 22:16 [From Toradol] morphine Allergy Rash/Hives Verified 01/24/19 22:16 metoclopramide HCl AdvReac Dystonic Verified 01/24/19 22:16 [From Reglan] Reaction prochlorperazine edisylate AdvReac Dystonic Verified 01/24/19 22:16 [From Compazine] Reaction prochlorperazine maleate AdvReac Dystonic Verified 01/24/19 22:16 [From Compazine] Reaction Physical Exam Vitals: Vital Signs Temp Pulse Pulse Resp BP BP Pulse Ox 01/25/19 04:00 97.5 F L 87 16 132/73 96 01/24/19 23:54 98.6 F 99 20 170/76 97 01/24/19 23:33 88 20 140/98 100 01/24/19 22:33 98.7 F 98 20 147/100 100 Intake and Output 01/24/19 01/25/19 01/25/19 22:59 06:59 14:59 Other: Weight 124 kg Results Cardiac Enzymes 01/25/19 Range/Units 06:34 Troponin I <0.012 (0.000-0.034) ng/mL Lipids 01/25/19 Range/Units 06:34 Triglycerides 369 H (<150) mg/dL Cholesterol 198 (<200) mg/dL HDL Cholesterol 34 L (40-60) mg/dL Current Medications Generic Name Dose Route Start Last Admin Trade Name Freq PRN Reason Stop Dose Admin Hydrocodone Bitart/Acetaminophen 1 each 01/25/19 00:17 01/25/19 00:32 [place] 10 PO 1 each Q6H PRN Administration Pain Heparin Sodium/Sodium Chloride 250 mls @ 9.92 mls/hr 01/24/19 22:45 01/24/19 22:59 25,000 unit/ Sodium Chloride IV 8 units/kg/hr .Q24H JOEY 9.92 mls/hr Administration Protocol 8 UNITS/KG/HR Nitroglycerin 1 inch 01/25/19 00:00 01/25/19 06:16 Nitro-Bid Oint TOPICAL Not Given Q6HR [facility] Nitroglycerin 0.4 mg 01/24/19 22:42 Nitrostat SUBLINGUAL Q5M PRN Chest Pain Intake and Output 01/24/19 01/25/19 01/25/19 22:59 06:59 14:59 Other: Weight 124 kg
[2019-01-25 11:49] LABS: Glucose,Whole Blood 138 mg/dL (75-99)
--- NOTE | 2019-01-25 11:57 | ECHOF ---
Referral Reason:cp MEASUREMENTS -------- HEIGHT: 180.3 cm WEIGHT: 123.8 kg BP: 132/3 RVIDd: 3.3 cm (< 3.3) IVSd: 1.4 cm (0.6 - 1.1) LVIDd: 5.4 cm (3.9 - 5.3) LVPWd: 1.6 cm (0.6 - 1.1) IVSs: 1.7 cm LVIDs: 3.9 cm LVPWs: 1.9 cm LA Diam: 3.8 cm (2.7 - 3.8) LAESV Index (A-L): 22.35 ml/m Ao Diam: 2.9 cm (2.0 - 3.7) AV Cusp: 1.8 cm (1.5 - 2.6) MV EXCURSION: 19.783 mm (> 18.000) MV EF SLOPE: 77 mm/s (70 - 150) EPSS: 0.9 cm MV E Home: 0.95 m/s MV DecT: 195 ms MV A Home: 0.82 m/s MV E/A Ratio: 1.15 FINDINGS -------- Sinus rhythm. This was a technically difficult study with suboptimal views. The left ventricular size is normal. There is moderate concentric left ventricular hypertrophy. O verall left ventricular systolic function is normal with, an EF between 60 - 65 %. The right ventricle is mildly enlarged. Normal LA size by volume 22+/-6 ml/m2. The right atrium is normal in size. 5 ml of Lumason was utilized for enhancement of images. The aortic valve is trileaflet and appears structurally normal. Mild mitral regurgitation is present. The tricuspid valve appears structurally normal. There is no pulmonic regurgitation present. The aortic root size is normal. IVC Not well visulized. There is no pericardial effusion. CONCLUSIONS -------- 1. Sinus rhythm. 2. This was a technically difficult study with suboptimal views. 3. The left ventricular size is normal. 4. There is moderate concentric left ventricular hypertrophy. 5. Overall left ventricular systolic function is normal with, an EF between 60 - 65 %. 6. The right ventricle is mildly enlarged. 7. Normal LA size by volume 22+/-6 ml/m2. 8. The right atrium is normal in size. 9. 5 ml of Lumason was utilized for enhancement of images. 10. The aortic valve is trileaflet and appears structurally normal. 11. Mild mitral regurgitation is present. 12. The tricuspid valve appears structurally normal. 13. There is no pulmonic regurgitation present. 14. The aortic root size is normal. 15. IVC Not well visulized. 16. There is no pericardial effusion. SOC[employer] COMMUNITY MANAGER: Lyudmila Davidson RDCS
[2019-01-25 12:13] VITALS: BP 148/96; PULSE 87; RESP 20; TEMP 98.3
--- NOTE | 2019-01-25 15:28 | P.HPIM ---
History of Present Illness Chief Complaint: Chest pains This is a, any significant physical and discharge summary for this patient This very pleasant 53-year-old male with a past medical history significant for hypertension, diabetes, hyperlipidemia, asthma, chronic back pain comes in for chest pain. The patient actually is a transfer from [facility] for evaluation and management for chest pain. He said that he was cutting grass yesterday afternoon and started having stabbing chest pain in the midsternal area radiating to the left shoulder and left upper back in the left neck pain was constant and persistent so he went to [facility]. The patient had extensive work up done and were [facility] including EKG which was unremarkable, troponins were negative, CT of the chest was done which was negative but revealed infiltrate in the right lower lobe. Patient was transferred over here for further evaluation and management of his chest pain. At the time of evaluation the patient was complaining of chest pain which is bet ter but still persistent. He does not complain of any cough or shortness of breath, no abdominal pain, nausea and vomiting, or diarrhea constipation, no tingling numbness on his extremities,, no itch no rash. ER course patient had EKG done in the ER which showed sinus rhythm slightly tachycardic. Temperature is 97.5 pulse 60 blood pressure 130/73 satting 96% on room air presents his troponins have been negative so far. Patient was admitted for further evaluation and management and cardiology consult Review of Systems All systems: negative Past Medical History Past Medical History: Asthma, Chest Pain / Angina, Diabetes Mellitus, GERD/Reflux, Hyperlipidemia, Hypertension, Myocardial Infarction ([place]), Mitral Va lve Prolapse (MVP), Pulmonary Embolus (PE), Sleep Apnea/CPAP/BIPAP Additional Past Medical History / Comment(s): Obesity, chronic asthmatic bronchitis, previous history of pulmonary embolism, objective sleep apnea, diabetes mellitus, hypertension, hyperlipidemia, previous history of myocardial infarction with underlying coronary artery disease, renal cysts, chronic back pa in secondary to herniated lumbar disc disease with symptoms of sciatica, history of right lower extremity fracture at the age of 13, history of C. diff colitis approximately 4 years ago, history of bleeding peptic ulcer, nephrolithiasis, previous history of UTI and secondary sepsis. Last Myocardial Infarction Date:: 2011 History of Any Multi-Drug Resistant Organisms: C-DIFF, MRSA Date of last positivie culture/infection: 2016 MDRO Source:: left axilla Past Surgical History: Appendectomy, Back Surgery, Cholecystectomy, Heart Catheterization, Hernia Repair Additional Past Surgical History / Comment(s): 2007 back surgery with decompression fusion at [facility], 2011, 2016 cardiac cath, multiple ESWL/ureteral stents/ double J catheters, L inquinal hernia repair, PICC line for ABX for urosepsis-since removed., Hx of c-diff. 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 Smoking Status: Never smoker Past Alcohol Use History: None Reported Past Drug Use History: None Reported - Past Family History Father Family Medical History: Chest Pain / Angina Additional Family Medical History / Comment(s): "lung problems" Mother Family Medical History: Cancer, Chest Pain / Angina, Congestive Heart Failure (CHF), Osteoarthritis (OA), Thyroid Disorder Medications and Allergies Home Medications Medication Instructions Recorded Confirmed Type Lisinopril 40 mg PO DAILY 08/01/17 01/24/19 History Omeprazole [PriLOSEC] 20 mg PO BID 12/11/17 01/24/19 History Methocarbamol [Robaxin-750] 750 mg PO TID PRN 03/25/18 01/24/19 History metFORMIN HCL [Glucophage] 500 mg PO BID 04/24/18 01/24/19 History Atorvastatin [Lipitor] 40 mg PO DAILY #90 tab 05/22/18 01/24/19 Rx Diltiazem Cd [Cardizem CD] 300 mg PO DAILY #90 cap.er.24h 05/22/18 01/24/19 Rx Diclofenac Sodium [Voltaren] 75 mg PO BID 10/22/18 01/24/19 History HYDROcodone/APAP 10-325MG [[place] 1 tab PO QID PRN 10/22/18 01/24/19 History 10-325] Hydrochlorothiazide 12.5 mg PO BID 10/22/18 01/24/19 History Allergies Allergy/AdvReac Type Severity Reaction Status Date / Time doxycycline Allergy Swelling Verified 01/24/19 22:16 ketorolac tromethamine Allergy Rash/Hives Verified 01/24/19 22:16 [From Toradol] morphine Allergy Rash/Hives Verified 01/24/19 22:16 metoclopramide HCl AdvReac Dystonic Verified 01/24/19 22:16 [From Reglan] Reaction prochlorperazine edisylate AdvReac Dystonic Verified 01/24/19 22:16 [From Compazine] Reaction prochlorperazine maleate AdvReac Dystonic Verified 01/24/19 22:16 [From Compazine] Reaction Physical Exam Vitals: Vital Signs Temp Pulse Pulse Resp BP BP Pulse Ox 01/25/19 12:00 98.3 F 87 20 148/96 98 01/25/19 08:00 97.5 F L 72 18 155/94 95 01/25/19 04:00 97.5 F L 87 16 132/73 96 01/24/19 23:54 98.6 F 99 20 170/76 97 01/24/19 23:33 88 20 140/98 100 01/24/19 22:33 98.7 F 98 20 147/100 100 On exam, alert and oriented x3. HEENT: Conjunctivae normal. eyes normal. NECK: No JVD. No thyroid enlargement. No LNs CARDIOVASCULAR: S1, S2 muffled. No murmur RESPIRATION: Breath sounds diminished in the bases. No rhonchi or crackles. No bronchial breathing. ABDOMEN: Soft, nontender . No guarding. no masses palpable. No ascites, No hepatosplenomegaly.Bowel sounds heard. LEGS: No edema. no swelling NERVOUS SYSTEM: Cranial N 2-12 grossly normal. Moves all 4 limbs. No focal deficits. No sensory deficit. No signs of cerebellar dysfucntion. Skin: no ulcer no rash Joints: No active swelling. No inflammation. Lymphatic system. No LN neck axilla or groin. Results Labs: Abnormal Lab Results - Last 24 Hours (Table) 01/25/19 01/25/19 01/25/19 Range/Units 06:34 06:47 11:48 POC Glucose (mg/dL) 149 H 138 H (75-99) mg/dL Triglycerides 369 H (<150) mg/dL HDL Cholesterol 34 L (40-60) mg/dL Thrombosis Risk Factor Assmnt - Choose All That Apply Any of the Below Risk Factors Present?: Yes Each Factor Represents 1 point: Abnormal pulmonary function (COPD), Age 41-60 years, Obesity (BMI >25) Other Risk Factors: Yes Each Risk Factor Represents 3 Points: Family history of DVT/PE, History of DVT/PE Thrombosis Risk Factor Assessment Total Risk Factor Score: 9 Thrombosis Risk Factor Assessment Level: High Risk Assessment and Plan Assessment: - Chest pain cardiac causes were ruled out - Probably providing in nature - CT of the chest showing evidence of right lobe infiltrate, patient having no cough no shortness of breath at this time. - Hypertension - Hyperlipidemia - Diabetes mellitus - Chronic back pain Plan - Patient will be admitted to observation with telemetry - Cardiology is consulted. Patient had a recent stress test which was negative. He'll be having an echocardiogram - Continue rest of the medical care - We'll start him on Augmentin for possible pneumonia patient doesn't behave like pneumonia but he's having chest pains which are pruritic in nature - We will resume the patient's medications - DVT and GI prophylaxis - Patient can be discharged if cleared by cardiology on Augmentin to go home. He is ALLERGIC to doxycycline and his QTC is pretty prolonged for him to be put on Levaquin or azithromycin
== END 2019-01-25 15:46 | disposition home or self-care (01) ==
LOC: EC 22:08 → 1SOBS 22:42
PROVIDERS: ADMIT Hospitalist; ATTEND Hospitalist
DX: R07.89 Other chest pain (principal); R91.8 Other nonspecific abnormal finding of lung field; I34.1 Nonrheumatic mitral (valve) prolapse; I25.10 Atherosclerotic heart disease of native coronary artery without angina pectoris; R00.0 Tachycardia, unspecified; I10 Essential (primary) hypertension; E78.5 Hyperlipidemia, unspecified; E11.9 Type 2 diabetes mellitus without complications; G89.29 Other chronic pain; M54.5 Low back pain; K21.9 Gastro-esophageal reflux disease without esophagitis; J44.9 Chronic obstructive pulmonary disease, unspecified; G47.33 Obstructive sleep apnea (adult) (pediatric); Z99.89 Dependence on other enabling machines and devices; N28.1 Cyst of kidney, acquired; G44.40 Drug-induced headache, not elsewhere classified, not intractable; T46.3X5A Adverse effect of coronary vasodilators, initial encounter; M51.16 Intervertebral disc disorders with radiculopathy, lumbar region; E66.9 Obesity, unspecified; Z68.38 Body mass index [BMI] 38.0-38.9, adult; Z79.84 Long term (current) use of oral hypoglycemic drugs; Z79.891 Long term (current) use of opiate analgesic; Z79.899 Other long term (current) drug therapy; Z88.1 Allergy status to other antibiotic agents; Z88.5 Allergy status to narcotic agent; Z88.8 Allergy status to other drugs, medicaments and biological substances; I25.2 Old myocardial infarction; Z87.11 Personal history of peptic ulcer disease; Z87.19 Personal history of other diseases of the digestive system; Z87.440 Personal history of urinary (tract) infections; Z87.442 Personal history of urinary calculi; Z86.19 Personal history of other infectious and parasitic diseases; Z86.711 Personal history of pulmonary embolism; Z86.14 Personal history of Methicillin resistant Staphylococcus aureus infection; Z16.24 Resistance to multiple antibiotics; Z90.49 Acquired absence of other specified parts of digestive tract; Z98.1 Arthrodesis status; Z82.61 Family history of arthritis; Z82.49 Family history of ischemic heart disease and other diseases of the circulatory system; Z83.49 Family history of other endocrine, nutritional and metabolic diseases; Z83.6 Family history of other diseases of the respiratory system; Z80.9 Family history of malignant neoplasm, unspecified
CPT/HCPCS: 99285; 93005; 80061; 84484; 85730; G0378 ×2; C8929; Q9950; J1644; 93306

== ENCOUNTER 2019-02-11 20:16 | Emergency (ER) | payer OTHER ==
[2019-02-11 20:34] VITALS: TEMP 98.5
[2019-02-11] MEDS ORDERED: SODIUM CHLORIDE 0.9% 1,000 ML IV STA (21:20)
[2019-02-11] MEDS ORDERED: HYDROmorphone 1 MG/ML 1 ML SYRINGE IVP STA (21:20)
--- NOTE | 2019-02-11 21:25 | ED ---
General Adult HPI - General Chief complaint: Fall Stated complaint: Fall, back pain Time Seen by Provider: 02/11/19 21:05 Source: patient Mode of arrival: wheelchair Limitations: no limitations - History of Present Illness Initial comments: Dictation was produced using [employer] dictation software. please excuse any grammatical, word or spelling errors. Chief Complaint: 53-year-old male presents with back pain after fall. History of Present Illness: 53-year-old male who presents with lower back pain after fall. Back in September he was seen by me for back pain. This transferred over to [facility]w or he had lumbar spine surgery. Patient states his surgery was back in September. Patient today at approximately noon was in a shower when he slipped. He fell backwards landing on his coccyx. He tried to catch his fall with his hands however is not successfully able to break his fall. After the fall he noted sharp pain in his lower back. Patient states he had itch mentation performed to his lower back for back pain. Patient states he has 40% nerve damage to his right lower extremity. He denies any worsening neuro deficits to the legs. He reports that his pain is worse with moving. The ROS documented in this emergency department record has been reviewed and confirmed by me. Those systems with pertinent positive or negative responses have been documented in the HPI. All other systems are other negative and/or noncontributory. PHYSICAL EXAM: General Impression: Alert and oriented x3, acute distress secondary to pain HEENT: Normocephalic atraumatic, extra-ocular movements intact, pupils equal and reactive to light bilaterally, mucous membranes moist. Cardiovascular: Heart regular rate and rhythm, S1&S2 audible, no murmurs, rubs or gallops Chest: Lungs clear to auscultation bilaterally, no rhonchi, no wheeze, no rales Abdomen: Bowel sounds present, abdomen soft, non-tender, non-distended, no o rganomegaly Musculoskeletal: Pulses present and equal in all extremities, no peripheral edema, tenderness to palpation over the L1-L2 region. Surgical site is clean dry intact. There is a well formed scar vertically over the lumbar spine Motor: no focal deficits noted Neurological: CN II-XII grossly intact, no focal motor or sensory deficits noted Skin: Intact with no visualized rashes Psych: Normal affect and mood ED course: 53 y Old male presents with back pain after fall. Patient has his tory of back surgery. Vital signs upon arrival shows heart rate of 121, first vital signs within acceptable limits. Laboratory evaluation is obtained showing no acute processes. Lumbar spine CT was obtained given that he fell and has history of recent back surgery. Lumbar spine CT shows no acute processes. Patient given analgesia with improved symptoms. Patient's time. Bedside. States his pain is improved however still slightly there. Patient clear for discharge. Told to follow up with his spine surgeon. - Related Data Home Medications Medication Instructions Recorded Confirmed Lisinopril 40 mg PO DAILY 08/01/17 02/11/19 Omeprazole [PriLOSEC] 20 mg PO BID 12/11/17 02/11/19 Methocarbamol [Robaxin-750] 750 mg PO TID PRN 03/25/18 02/11/19 metFORMIN HCL [Glucophage] 500 mg PO BID 04/24/18 02/11/19 Diclofenac Sodium [Voltaren] 75 mg PO BID 10/22/18 02/11/19 HYDROcodone/APAP 10-325MG [[place] 1 tab PO QID PRN 10/22/18 02/11/19 10-325] Hydrochlorothiazide 12.5 mg PO BID 10/22/18 02/11/19 Previous Rx's Medication Instructions Recorded Atorvastatin [Lipitor] 40 mg PO DAILY #90 tab 05/22/18 Diltiazem Cd [Cardizem CD] 300 mg PO DAILY #90 cap.er.24h 05/22/18 Allergies Allergy/AdvReac Type Severity Reaction Status Date / Time doxycycline Allergy Swelling Verified 02/11/19 21:13 ketorolac tromethamine Allergy Rash/Hives Verified 02/11/19 21:13 [From Toradol] morphine Allergy Rash/Hives Verified 02/11/19 21:13 metoclopramide HCl AdvReac Dystonic Verified 02/11/19 21:13 [From Reglan] Reaction prochlorperazine edisylate AdvReac Dystonic Verified 02/11/19 21:13 [From Compazine] Reaction prochlorperazine maleate AdvReac Dystonic Verified 02/11/19 21:13 [From Compazine] Reaction Review of Systems ROS Statement: Those systems with pertinent positive or pertinent negative responses have been documented in the HPI. ROS Other: All systems not noted in ROS Statement are negative. Past Medical History Past Medical History: Asthma, Chest Pain / Angina, Diabetes Mellitus, GERD/Reflux, Hyperlipidemia, Hypertension, Myocardial Infarction (MO), Mitral Valve Prolapse (MVP), Pulmonary Embolus (PE), Sleep Apnea/CPAP/BIPAP Additional Past Medical History / Comment(s): Obesity, chronic asthmatic bronchitis, previous history of pulmonary embolism, objective sleep apnea, diabetes mellitus, hypertension, hyperlipidemia, previous history of myocardial infarction with underlying coronary artery disease, renal cysts, chronic back pain secondary to herniated lumbar disc disease with symptoms of sciatica, history of right lower extremity fracture at the age of 13, history of C. diff colitis approximately 4 years ago, history of bleeding peptic ulcer, nephrolithiasis, previous history of UTI and secondary sepsis. Last Myocardial Infarction Date:: 2011 History of Any Multi-Drug Resistant Organisms: C-DIFF, MRSA Date of last positivie culture/infection: 2015 MDRO Source:: left axilla Past Surgical History: Appendectomy, Back Surgery, Cholecystectomy, Heart Catheterization, Hernia Repair Additional Past Surgical History / Comment(s): 2008 back surgery with decompression fusion at [facility], 2011, 2016 cardiac cath, multiple ESWL/ureteral stents/ double J catheters, L inquinal hernia repair, PICC line for ABX for urosepsis-since removed., Hx of c-diff. Past Anesthesia/Blood Transfusion Reactions: No Reported Reaction Past Psychological History: No Psychological Hx Reported Smoking Status: Never smoker Past Alcohol Use History: None Reported Past Drug Use History: None Reported - Past Family History Father Family Medical History: Chest Pain / Angina Additional Family Medical History / Comment(s): "lung problems" Mother Family Medical History: Cancer, Chest Pain / Angina, Congestive Heart Failure (CHF), Osteoarthritis (OA), Thyroid Disorder General Exam Limitations: no limitations Course Vital Signs 02/11/19 20:30 Temperature 98.5 F Pulse Rate 121 H Respiratory 20 Rate Blood Pressure 163/114 O2 Sat by Pulse 96 Oximetry Medical Decision Making - Lab Data Result diagrams: 02/11/19 21:20 Lab Results 02/11/19 Range/Units 21:20 WBC 7.5 (3.8-10.6) k/uL RBC 4.62 (4.30-5.90) m/uL Hgb 13.2 (13.0-17.5) gm/dL Hct 38.9 L (39.0-53.0) % MCV 84.2 (80.0-100.0) fL MCH 28.6 (25.0-35.0) pg MCHC 33.9 (31.0-37.0) g/dL RDW 14.6 (11.5-15.5) % Plt Count 266 (150-450) k/uL Neutrophils % 63 % Lymphocytes % 25 % Monocytes % 6 % Eosinophils % 3 % Basophils % 1 % Neutrophils # 4.7 (1.3-7.7) k/uL Lymphocytes # 1.9 (1.0-4.8) k/uL Monocytes # 0.5 (0-1.0) k/uL Eosinophils # 0.2 (0-0.7) k/uL Basophils # 0.0 (0-0.2) k/uL Disposition Clinical Impression: Fall, Back pain Disposition: HOME SELF-CARE Condition: Good Instructions (If sedation given, give patient instructions): Fall Prevention for Older Adults (ED) Is patient prescribed a controlled substance at d/c from ED?: No Referrals: Trav Muniz MD [Primary Care Provider] - 1-2 days Time of Disposition: 23:56
[2019-02-11] MEDS ORDERED: HYDROmorphone 1 MG/ML 1 ML SYRINGE IM STA (22:25)
--- NOTE | 2019-02-11 23:13 | CT ---
EXAM: CT Lumbar Spine Without Intravenous Contrast CLINICAL HISTORY: Pain TECHNIQUE: Axial computed tomography images of the lumbar spine without intravenous contrast. CTDI is 0.199, 0.285, 53.1 mGy and DLP is 1980.4 mGy-cm. This CT exam was performed using one or more of the following dose reduction techniques: automated exposure control, adjustment of the mA and/or kV according to patient size, and/or use of iterative reconstruction technique. COMPARISON: 11/30/2018 FINDINGS: Vertebrae: No acute fracture or malalignment. Discs/spinal canal/neural foramina: Fusion hardware postsurgical changes, similar to prior. No significant osseous spinal canal stenosis. Soft tissues: Unremarkable. Kidneys and ureters: Similar hypoattenuating right renal lesion, likely a cyst. No hydronephrosis. IMPRESSION: No acute findings.
[2019-02-11 23:41] LABS: Basophils % (A) 1 %; Eosinophils # (A) 0.2 k/uL (0-0.7); Eosinophils % (A) 3 %; HCT 38.9 % (39.0-53.0); HGB 13.2 gm/dL (13.0-17.5); Lymphocytes # (A) 1.9 k/uL (1.0-4.8); Lymphocytes % (A) 25 %; MCH 28.6 pg (25.0-35.0); MCHC 33.9 g/dL (31.0-37.0); MCV 84.2 fL (80.0-100.0); Mean Platelet Volume 6.5; Monocytes # (A) 0.5 k/uL (0-1.0); Monocytes % (A) 6 %; Neutrophils # (A) 4.7 k/uL (1.3-7.7); Neutrophils % (A) 63 %; Platelet Count 266 k/uL (150-450); RBC 4.62 m/uL (4.30-5.90); RDW 14.6 % (11.5-15.5); WBC 7.5 k/uL (3.8-10.6)
[2019-02-11 23:56] LABS: African American GFR (CKD) >90 (>60 ml/min/1.73 sqM); Anion Gap 11 mmol/L; Blood Urea Nitrogen 12 mg/dL (9-20); Calcium 9.1 mg/dL (8.4-10.2); Carbon Dioxide 23 mmol/L (22-30); Chloride 105 mmol/L (98-107); Glucose 168 mg/dL (74-99); Potassium 3.7 mmol/L (3.5-5.1); Sodium 139 mmol/L (137-145)
[2019-02-12] MEDS ORDERED: HYDROmorphone 1 MG/ML 1 ML SYRINGE IM STA (00:25)
[2019-02-12 00:30] VITALS: BP 180/99; PULSE 96; RESP 18
== END 2019-02-12 00:50 | disposition home or self-care (01) ==
LOC: EC 20:16
DX: M54.5 Low back pain (principal); E11.9 Type 2 diabetes mellitus without complications; K21.9 Gastro-esophageal reflux disease without esophagitis; I10 Essential (primary) hypertension; I25.2 Old myocardial infarction; I25.10 Atherosclerotic heart disease of native coronary artery without angina pectoris; G47.30 Sleep apnea, unspecified; E66.9 Obesity, unspecified; Z68.41 Body mass index [BMI] 40.0-44.9, adult; Z79.84 Long term (current) use of oral hypoglycemic drugs; Z79.899 Other long term (current) drug therapy; Z88.1 Allergy status to other antibiotic agents; Z88.5 Allergy status to narcotic agent; Z88.8 Allergy status to other drugs, medicaments and biological substances; Z95.5 Presence of coronary angioplasty implant and graft; Z98.2 Presence of cerebrospinal fluid drainage device; Z86.711 Personal history of pulmonary embolism; W01.0XXA Fall on same level from slipping, tripping and stumbling without subsequent striking against object, initial encounter; Y93.E1 Activity, personal bathing and showering; Y92.002 Bathroom of unspecified non-institutional (private) residence as the place of occurrence of the external cause
CPT/HCPCS: 36415; 80048; 85025; 72131; 99284; 96372 ×2; J1170 ×2

== ENCOUNTER 2019-03-12 11:34 | Observation (INO) | payer OTHER ==
[2019-03-12] MEDS ORDERED: HYDROmorphone 1 MG/ML 1 ML SYRINGE IM STA (12:05)
[2019-03-12] MEDS ORDERED: DEXAMETHASONE 4 MG TAB PO STA (12:05)
[2019-03-12] MEDS ORDERED: DIAZEPAM 5 MG TAB PO STA (12:05)
[2019-03-12] MEDS ORDERED: IBUPROFEN 800 MG TAB PO STA (12:05)
--- NOTE | 2019-03-12 12:48 | ED ---
Back Pain HPI - General Chief Complaint: Back Pain/Injury Stated Complaint: back pain Time Seen by Provider: 03/12/19 11:48 Source: patient, RN notes reviewed, old records reviewed Limitations: no limitations - History of Present Illness Initial Comments: This is a 53-year-old male the ER for evaluation. Patient under facility for similar visits, patient having severe back pain today. Patient has had significant surgery on his back as well as trials with different kinds of therapy including neural stimulators. Patient states he had some back pain last night and woke up and was worse today, no specific traumatic injury. He denies any neurological complaints he states specifically he has no loss of bowel or bladder able to ambulate and did come in to the ER ambulatory today. Patient states the pain is is very severe he has had his back up before feels similar to that. Patient not currently taking any significant pain medications MD Complaint: back pain -: days(s) Similar Symptoms Previously: Yes Place: home Radiation: none Severity: severe Severity scale (1-10): 10 Quality: sharp, aching Consistency: constant Improves With: none Worsens With: movement, walking Context: while lifting, turning/twisting Associated Symptoms: denies other symptoms - Related Data Home Medications Medication Instructions Recorded Confirmed Lisinopril 40 mg PO DAILY 08/01/17 03/12/19 Omeprazole [PriLOSEC] 20 mg PO BID 12/11/17 03/12/19 Methocarbamol [Robaxin-750] 750 mg PO TID PRN 03/25/18 03/12/19 metFORMIN HCL [Glucophage] 500 mg PO BID 04/24/18 03/12/19 Diclofenac Sodium [Voltaren] 75 mg PO BID PRN 10/22/18 03/12/19 HYDROcodone/APAP 10-325MG [[place] 1 tab PO QID PRN 10/22/18 03/12/19 10-325] Hydrochlorothiazide 12.5 mg PO BID 10/22/18 03/12/19 Carvedilol [Coreg] 12.5 mg PO BID 03/12/19 03/12/19 Previous Rx's Medication Instructions Recorded Atorvastatin [Lipitor] 40 mg PO DAILY #90 tab 05/22/18 Diltiazem Cd [Cardizem CD] 300 mg PO DAILY #90 cap.er.24h 05/22/18 Allergies Allergy/AdvReac Type Severity Reaction Status Date / Time doxycycline Allergy Swelling Verified 03/12/19 12:04 ketorolac tromethamine Allergy Rash/Hives Verified 03/12/19 12:04 [From Toradol] morphine Allergy Rash/Hives Verified 03/12/19 12:04 metoclopramide HCl AdvReac Dystonic Verified 03/12/19 12:04 [From Reglan] Reaction prochlorperazine edisylate AdvReac Dystonic Verified 03/12/19 12:04 [From Compazine] Reaction prochlorperazine maleate AdvReac Dystonic Verified 03/12/19 12:04 [From Compazine] Reaction Review of Systems ROS Statement: Those systems with pertinent positive or pertinent negative responses have been documented in the HPI. ROS Other: All systems not noted in ROS Statement are negative. Past Medical History Past Medical History: Asthma, Chest Pain / Angina, Diabetes Mellitus, GERD/Reflux, Hyperlipidemia, Hypertension, Myocardial Infarction (PR), Mitral Valve Prolapse (MVP), Pulmonary Embolus (PE), Sleep Apnea/CPAP/BIPAP Additional Past Medical History / Comment(s): Obesity, chronic asthmatic bronchitis, previous history of pulmonary embolism, objective sleep apnea, diabetes mellitus, hypertension, hyperlipidemia, previous history of myocardial infarction with underlying coronary artery disease, renal cysts, chronic back pain secondary to herniated lumbar disc disease with symptoms of sciatica, history of right lower extremity fracture at the age of 13, history of C. diff colitis approximately 4 years ago, history of bleeding peptic ulcer, nephrolithiasis, previous history of UTI and secondary sepsis. Last Myocardial Infarction Date:: 2011 History of Any Multi-Drug Resistant Organisms: C-DIFF, MRSA Date of last positivie culture/infection: 2016 MDRO Source:: left axilla Past Surgical History: Appendectomy, Back Surgery, Cholecystectomy, Heart Catheterization, Hernia Repair Additional Past Surgical History / Comment(s): 2008 back surgery with decompression fusion at [facility], 2011, 2016 cardiac cath, multiple ESWL/ureteral stents/ double J catheters, L inquinal hernia repair, PICC line for ABX for urosepsis-since removed., Hx of c-diff. Past Anesthesia/Blood Transfusion Reactions: No Reported Reaction Past Psychological History: No Psychological Hx Reported Smoking Status: Never smoker Past Alcohol Use History: None Reported Past Drug Use History: None Reported - Past Family History Father Family Medical History: Chest Pain / Angina Additional Family Medical History / Comment(s): "lung problems" Mother Family Medical History: Cancer, Chest Pain / Angina, Congestive Heart Failure (CHF), Osteoarthritis (OA), Thyroid Disorder General Exam Limitations: no limitations General appearance: alert, in no apparent distress Head exam: Present: atraumatic, normocephalic, normal inspection Eye exam: Present: normal appearance, PERRL, EOMI. Absent: scleral icterus, conjunctival injection, periorbital swelling ENT exam: Present: normal exam, mucous membranes moist Neck exam: Present: normal inspection. Absent: tenderness, meningismus, lymphadenopathy Respiratory exam: Present: normal lung sounds bilaterally. Absent: respiratory distress, wheezes, rales, rhonchi, stridor Cardiovascular Exam: Present: normal rhythm, tachycardia, normal heart sounds. Absent: systolic murmur, diastolic murmur, rubs, gallop, clicks GI/Abdominal exam: Present: soft, normal bowel sounds. Absent: distended, tenderness, guarding, rebound, rigid Extremities exam: Present: normal inspection, full ROM, normal capillary refill. Absent: tenderness, pedal edema, joint swelling, calf tenderness Back exam: Present: normal inspection Neurological exam: Present: alert, oriented X3, CN II-XII intact Psychiatric exam: Present: normal affect, normal mood Skin exam: Present: warm, dry, intact, normal color. Absent: rash Course Vital Signs 03/12/19 11:37 Temperature 98.1 F Pulse Rate 107 H Respiratory 18 Rate Blood Pressure 173/114 O2 Sat by Pulse 99 Oximetry - Reevaluation(s) Reevaluation #1: 03/12/19 13:07 Medical record review Reevaluation #2: 03/12/19 13:07 Patient has adequate pain control care, and ambulation is better Medical Decision Making - Medical Decision Making 53 male the ER for evaluation presents today for evaluation of back pain acute on chronic back pain states his back went out. Denies any need for imaging currently. Patient has no neurological findings, pain is controlled and can be discharged home Disposition Clinical Impression: Back pain, Low back pain Disposition: HOME SELF-CARE Condition: Good Instructions (If sedation given, give patient instructions): Acute Low Back Pain (ED) Is patient prescribed a controlled substance at d/c from ED?: No Referrals: Trav Muniz MD [Primary Care Provider] - 1-2 days
[2019-03-12] MEDS ORDERED: SODIUM CHLORIDE 0.9% 1,000 ML IV STA (13:51)
[2019-03-12] MEDS ORDERED: HYDROmorphone 1 MG/ML 1 ML SYRINGE IVP STA (13:51)
[2019-03-12] MEDS ORDERED: DIAZEPAM 5 MG/ML 2 ML INJ IVP PRN (15:01)
[2019-03-12] MEDS ORDERED: SODIUM CHLORIDE 0.9% 1,000 ML IV ONE (15:01)
--- NOTE | 2019-03-12 15:03 | ED ---
Medical Decision Making - Medical Decision Making 53 male the ER for evaluation. Patient has back pain intractable here in the ER, we'll observe for continued back pain control and monitoring. Disposition Clinical Impression: Back pain, Low back pain Disposition: ADMITTED IP TO THIS HOSP Condition: Good Instructions (If sedation given, give patient instructions): Acute Low Back Pain (ED) Referrals: Trav Muniz MD [Primary Care Provider] - 1-2 days
[2019-03-12] MEDS ORDERED: METHOCARBAMOL 750 MG TAB PO PRN (15:57)
[2019-03-12] MEDS ORDERED: DICLOFENAC SODIUM 75 MG PO PRN (15:57)
[2019-03-12] MEDS ORDERED: ALPRAZolam 0.25 MG TAB PO PRN (15:59)
[2019-03-12] MEDS ORDERED: TEMAZEPAM 15 MG CAP PO PRN (15:59)
[2019-03-12] MEDS: HYDROcodone/APAP 10-325MG 1 EACH TAB PO PRN (17:06)
[2019-03-12] MEDS ORDERED: CARVEDILOL 12.5 MG TAB PO SCH (17:30)
[2019-03-12] MEDS ORDERED: hydrALAZINE HCL 20 MG/ML 1 ML VIAL IVP PRN (17:53)
[2019-03-12] MEDS: metFORMIN 500 MG TAB PO SCH (18:20)
[2019-03-12] MEDS: ACETAMINOPHEN TAB 325 MG TAB PO SCH ×2 (18:20→21:24)
[2019-03-12] MEDS: ATORVASTATIN 40 MG TAB PO SCH (18:20)
[2019-03-12] MEDS: CARVEDILOL 12.5 MG TAB PO SCH (18:20)
[2019-03-12] MEDS: HYDROmorphone 1 MG/ML 1 ML SYRINGE IVP PRN (18:21)
[2019-03-12 18:38] VITALS: BMI 43.8
[2019-03-12 20:54] LABS: Glucose,Whole Blood 270 mg/dL (75-99)
[2019-03-12] MEDS ORDERED: NON-FORMULARY DRUG (Omeprazole 20 MG) PO SCH (21:00)
[2019-03-12] MEDS: HEPARIN SODIUM,PORCINE 5,000 UNIT/ML 1 ML VIAL SQ SCH (21:23)
[2019-03-12] MEDS: HYDROCHLOROTHIAZIDE 12.5 MG CAP PO SCH (21:24)
[2019-03-12] MEDS: INSULIN ASPART (NovoLOG) 100 UNIT/ML VIAL SQ SCH (21:24)
--- NOTE | 2019-03-12 22:00 | HP ---
HISTORY AND PHYSICAL DATE OF SERVICE: 03/12/2019 CHIEF COMPLAINT: Back pain. HISTORY OF PRESENT ILLNESS: This 53-year-old gentleman with a past medical history of multiple medical problems, including history of asthma, chest pain, diabetes mellitus, hypertension, hyperlipidemia, history of myocardial infarction, mitral valve prolapse, history of sleep apnea, obesity, being followed by Dr. Muniz in the outpatient setting, was complaining of severe back pain. The pain is in the right side, mid back, radiating downwards. The patient also had multiple previous issues, including severe DJD, and the patient was supposed to have a pain pump insertion by Dr. Mustafa from [facility]. There is no history of any fever, rigor or chills. No history of headache, loss of consciousness. The patient came to [facility], and even despite multiple IV pain medications, the patient is not improving significantly. No chest pain. No palpitations. No fever. PAST MEDICAL HISTORY: 1. History of asthma. 2. Chest pain. 3. Diabetes mellitus. 4. GERD. 5. Hypertension. 6. Hyperlipidemia. 7. History of myocardial infarction. 8. Mitral valve prolapse. 9. Pulmonary embolism. 10.Sleep apnea. HOME MEDICATIONS: 1. Metformin 500 mg p.o. b.i.d. 2. Prilosec 20 mg b.i.d. 3. Robaxin 750 mg t.i.d. p.r.n. 4. Lisinopril 40 mg p.o. daily. 5. Hydrochlorothiazide 12.5 mg b.i.d. 6. [place] 10 mg q.i.d. p.r.n. 7. Cardizem CD 300 mg daily. 8. Voltaren 75 mg b.i.d. p.r.n. 9. Coreg 12.5 mg p.o. b.i.d. 10.Lipitor 40 mg p.o. daily. ALLERGIES: 1. DOXYCYCLINE. 2. KETOROLAC. 3. MORPHINE. 4. REGLAN. 5. COMPAZINE. FAMILY HISTORY: History of lung problems, cancer, CHF, DJD, hypothyroidism. SOCIAL HISTORY: No history of smoking. No history of alcohol intake. REVIEW OF SYSTEMS: ENT: No diminished hearing. No diminished vision. CARDIOVASCULAR SYSTEM: No angina, palpitations. RESPIRATORY SYSTEM: As mentioned earlier. GI: No nausea, vomiting. : No dysuria or retention. NERVOUS SYSTEM: No numbness, weakness. ALLERGY/IMMUNOLOGY: As mentioned earlier. MUSCULOSKELETAL: As mentioned earlier. HEMATOLOGY/ONCOLOGY: No history of anemia. ENDOCRINE: Diabetes mellitus. CONSTITUTIONAL: As mentioned earlier. DERMATOLOGY: Negative. RHEUMATOLOGY: Negative. PSYCHIATRY: As mentioned earlier. PHYSICAL EXAMINATION: Patient alert and oriented x3. Pulse 106, blood pressure 151/89, respiration 18, temperature 98.2, pulse ox 96% on room air. HEENT: Conjunctivae normal. NECK: No jugular venous distention. No carotid bruit. No lymph node enlargement. CARDIOVASCULAR SYSTEM: S1, S2 muffled. No S3. No S4. RESPIRATORY SYSTEM: Breath sounds diminished at the bases. A few rhonchi. No crackles. ABDOMEN: Soft, obese, non-tender. No mass palpable. LEGS: No edema. No swelling. NERVOUS SYSTEM: Higher functions as mentioned earlier. Moves all 4 limbs. No focal motor or sensory deficit. LYMPHATIC: No lymph node palpable in neck or axillae. SKIN: No ulcer, rash, bleeding. JOINTS: No active deforming arthropathy. LABS: Recent labs: hematology is normal. Chemistry shows glucose 138. ASSESSMENT: 1. Severe back pain, acute degenerative joint disease, acute exacerbation, with failure of outpatient treatment. 2. History of asthma. 3. History of chest pain, angina. 4. Diabetes mellitus, type 2. 5. Gastroesophageal reflux disease. 6. Hypertension. 7. Hyperlipidemia. 8. History of myocardial infarction. 9. History of mitral valve prolapse. 10.History of pulmonary embolism. 11.Sleep apnea. 12.History of obesity. 13.Chronic asthmatic bronchitis. 14.History of back surgery and decompression at [facility]. 15.For neurostimulator transplantation. 16.History of Clostridium difficile. 17.History of methicillin-resistant Staphylococcus aeruginosa. 18.Obesity with body mass index 41.3. RECOMMENDATIONS AND DISCUSSION: In this 53-year-old gentleman who presented with multiple complex medical issues, we will monitor the patient closely, continue the current management, continue symptomatic treatment. I recommend resuming the home medications. Otherwise, symptomatic treatment of the pain. I would also recommend orthopedic evaluation and DVT prophylaxis. Prognosis is guarded because of multiple complex medical problems. Further recommendations to follow. A copy of this dictation is being forwarded to Dr. Muniz, who is the primary physician. MMODL / IJN: [id number] / KAY
[2019-03-12] MEDS: HYDROmorphone 0.5 MG/0.5 ML SYRINGE IVP PRN (22:31)
[2019-03-13] MEDS: HYDROcodone/APAP 10-325MG 1 EACH TAB PO PRN ×2 (00:32→14:31)
[2019-03-13] MEDS: HYDROmorphone 1 MG/ML 1 ML SYRINGE IVP PRN (02:32)
[2019-03-13] MEDS: ACETAMINOPHEN TAB 325 MG TAB PO SCH ×2 (05:39→12:27)
[2019-03-13 07:02] LABS: Glucose,Whole Blood 274 mg/dL (75-99)
[2019-03-13] MEDS ORDERED: PANTOPRAZOLE 40 MG TABLET PO SCH (07:30)
[2019-03-13] MEDS ORDERED: CARVEDILOL 12.5 MG TAB PO SCH (07:30)
[2019-03-13] MEDS: HYDROmorphone 0.5 MG/0.5 ML SYRINGE IVP PRN ×2 (07:35→12:13)
[2019-03-13] MEDS: CARVEDILOL 12.5 MG TAB PO SCH (08:07)
[2019-03-13] MEDS: metFORMIN 500 MG TAB PO SCH (08:08)
[2019-03-13] MEDS: HEPARIN SODIUM,PORCINE 5,000 UNIT/ML 1 ML VIAL SQ SCH (08:08)
[2019-03-13] MEDS: ATORVASTATIN 40 MG TAB PO SCH (08:08)
[2019-03-13] MEDS: INSULIN ASPART (NovoLOG) 100 UNIT/ML VIAL SQ SCH ×2 (08:12→14:19)
[2019-03-13 08:32] LABS: Basophils % (A) 0 %; Eosinophils % (A) 0 %; HCT 40.6 % (39.0-53.0); HGB 13.4 gm/dL (13.0-17.5); Lymphocytes # (A) 0.8 k/uL (1.0-4.8); Lymphocytes % (A) 10 %; MCH 27.7 pg (25.0-35.0); MCV 83.9 fL (80.0-100.0); Mean Platelet Volume 6.7; Monocytes # (A) 0.4 k/uL (0-1.0); Monocytes % (A) 5 %; Neutrophils # (A) 7.4 k/uL (1.3-7.7); Neutrophils % (A) 85 %; Platelet Count 293 k/uL (150-450); RBC 4.84 m/uL (4.30-5.90); RDW 14.6 % (11.5-15.5); WBC 8.7 k/uL (3.8-10.6)
[2019-03-13 08:58] LABS: African American GFR (CKD) >90 (>60 ml/min/1.73 sqM); Anion Gap 18 mmol/L; Blood Urea Nitrogen 15 mg/dL (9-20); Calcium 9.9 mg/dL (8.4-10.2); Carbon Dioxide 19 mmol/L (22-30); Chloride 100 mmol/L (98-107); Glucose 254 mg/dL (74-99); Potassium 4.1 mmol/L (3.5-5.1); Sodium 137 mmol/L (137-145)
[2019-03-13] MEDS ORDERED: DILTIAZEM CD 300 MG CAP.ER.24H PO SCH (09:00)
[2019-03-13] MEDS ORDERED: LISINOPRIL 20 MG TAB PO SCH (09:00)
[2019-03-13 11:22] LABS: Glucose,Whole Blood 198 mg/dL (75-99)
[2019-03-13] MEDS: HYDROCHLOROTHIAZIDE 12.5 MG CAP PO SCH (12:13)
[2019-03-13 12:18] VITALS: BP 151/82; PULSE 93; RESP 17; TEMP 98.1
--- NOTE | 2019-03-13 15:14 | P.DS ---
Providers Date of admission: 03/12/19 15:01 Expected date of discharge: 03/13/19 Attending physician: Reid Deal Consults: 03/12/19 15:58 Consult Physician Routine Consulting Provider: Paul Short Consult Reason/Comments: back pain Do you want consulting provider notified?: Yes [facility] Course: Final diagnosis Severe back pain, acute degenerative joint disease, acute exacerbation, with failure of outpatient treatment History of asthma History of chest pain, angina Diabetes mellitus type 2 Gastroesophageal reflux disease Hypertension Hyperlipidemia History of myocardial infarction History of mitral valve prolapse History of pulmonary embolism Sleep apnea History of obesity with body mass index of 41.3 Chronic asthmatic bronchitis History of back surgery and decompression at [facility] Neurostimulator transplantation History of Clostridium difficile History of methicillin-resistant Staphylococcus aeruginosa Discharge disposition Patient is being discharged in a stable condition with guarded prognosis to home and will follow-up with Dr. Mustafa from [facility] on Monday as scheduled. Patient will follow-up with Dr. Trav Muniz in the outpatient setting as his primary care provider. History of present illness This is a 53-year-old male with a past medical history of multiple medical problems and was recently admitted for severe back pain and was being closely monitored. Patient continues to have back pain which has minimized since admission. Patient was on IV pain medications in the form of Dilaudid and states that it was helping. Patient is to be receiving a pain pump or stimulator with Dr. Mustafa out of [facility] on Monday. Patient denies any chest pain, palpitations, or shortness of breath at this time. Patient denies any nausea or vomiting and is tolerating diet. Patient's gait is steady. Patient remains afebrile. Patient was also having some blood pressure control issues and has been recently adjusting his medications for better blood pressure control. Patient will follow-up with Dr. Muniz in the outpatient setting. Currently patient's condition is stable with improvement. Guarded prognosis. On exam vital signs are stable. Blood pressure is 151/82, temp is 98.1F, respirations are 17, pulse is 93, oxygen saturation is 95% on room air. 1 and S2 are muffled. Respiratory system shows diminished breath sounds at the bases with a few scattered rhonchi. Abdomen is soft, obese, non-tender. Nervous system shows no focal deficits and gait is steady. Please refer to medication reconciliation sheet for a list of medications. Patient Condition at Discharge: Good Plan - Discharge Summary Discharge Rx Participant: No New Discharge Prescriptions: Continue Lisinopril 40 mg PO DAILY Omeprazole [PriLOSEC] 20 mg PO BID Methocarbamol [Robaxin-750] 750 mg PO TID PRN PRN Reason: Pain metFORMIN HCL [Glucophage] 500 mg PO BID Diltiazem Cd [Cardizem CD] 300 mg PO DAILY #90 cap.er.24h Atorvastatin [Lipitor] 40 mg PO DAILY #90 tab Hydrochlorothiazide 12.5 mg PO BID HYDROcodone/APAP 10-325MG [[place] 10-325] 1 tab PO QID PRN PRN Reason: Pain Diclofenac Sodium [Voltaren] 75 mg PO BID PRN PRN Reason: Pain Carvedilol [Coreg] 12.5 mg PO BID 30 Days #60 tab Discharge Medication List Lisinopril 40 mg PO DAILY 08/01/17 [History] Omeprazole [PriLOSEC] 20 mg PO BID 12/11/17 [History] Methocarbamol [Robaxin-750] 750 mg PO TID PRN 03/25/18 [History] metFORMIN HCL [Glucophage] 500 mg PO BID 04/24/18 [History] Atorvastatin [Lipitor] 40 mg PO DAILY #90 tab 05/22/18 [Rx] Diltiazem Cd [Cardizem CD] 300 mg PO DAILY #90 cap.er.24h 05/22/18 [Rx] Diclofenac Sodium [Voltaren] 75 mg PO BID PRN 10/22/18 [History] HYDROcodone/APAP 10-325MG [[place] 10-325] 1 tab PO QID PRN 10/22/18 [History] Hydrochlorothiazide 12.5 mg PO BID 10/22/18 [History] Carvedilol [Coreg] 12.5 mg PO BID 30 Days #60 tab 03/13/19 [Rx] Follow up Appointment(s)/Referral(s): Trav Muniz MD [Primary Care Provider] - 03/20/19 10:00 am Patient Instructions/Handouts: Carvedilol (By mouth), Acute Low Back Pain (ED) Activity/Diet/Wound Care/Special Instructions: Activity limited until follow up continue current diet follow up with pain specialist on Monday as scheduled Discharge Disposition: HOME SELF-CARE
--- NOTE | 2019-03-13 17:35 | P.CNOR ---
History of Present Illness - [facility] Consult date: 03/13/19 Requesting physician: Reid Deal Consult reason: low back pain History of present illness: Patient is a very pleasant 53-year-old male who was previously seen and examined in the outpatient setting regards his low back pain. Patient states yesterday he performed a twisting movement of the lumbar spine which exacerbate his back pain. He has had significant neck pain since that time. He is not currently experiencing any significant lower extremity radiculopathy or bilaterally. He does state he has some soreness in the right leg. He denies any changes with bowel or bladder function. He has a significant surgical history which includes previous multiple laminectomies and decompressions performed followed with an L4-5 and L5-S1 posterior lateral decompression and fusion performed in 2007 or 2008. At the time he was seen in our office, his imaging was stable and there were no indications for surgical intervention at that time. He states he had an accident and presented to [facility] for further evaluation. He states within 24 hours of his arrival to the hospital he underwent surgical intervention at his lumbar spine requiring a fusion at L3-4 due to spinal cord compression. He states at that time he had loss of bowel and bladder. He states he continue to follow with the surgeon who performed his surgery for 2 visits postoperatively. He is no longer following with that surgeon. He has a regular spine surgeon who performed his previous lumbar spinal fusion. He states he's also undergone a cervical fusion with the same surgeon. At the time of his accident and subsequent surgical intervention on 09/07/2018, he states his regular surgeon was on vacation and his surgery was performed by different surgeon. He is currently scheduled for follow-up with his regular spine surgeon next week and also for follow-up evaluation with his plate painter apprentice. He states he is currently having further workup for possible placement of a neurostimulator. He states his neurostimulator would have been placed already but he was having some difficulty with hypertension. At this time he does not feel he needs further treatment or evaluation. He would like to have his symptoms to be controlled with medication so he can be discharged home and he may follow-up with his other medical providers as scheduled next week. Past Medical History Past Medical History: Asthma, Chest Pain / Angina, Diabetes Mellitus, GERD/Reflux, Hyperlipidemia, Hypertension, Myocardial Infarction ([place]), Mitral Valve Prolapse (MVP), Pulmonary Embolus (PE), Sleep Apnea/CPAP/BIPAP Additional Past Medical History / Comment(s): Obesity, chronic asthmatic bronchitis, previous history of pulmonary embolism, objective sleep apnea, diabetes mellitus, hypertension, hyperlipidemia, previous history of myocardial infarction with underlying coronary artery disease, renal cysts, chronic back pain secondary to herniated lumbar disc disease with symptoms of sciatica, history of right lower extremity fracture at the age of 13, history of C. diff colitis approximately 4 years ago, history of bleeding peptic ulcer, nephrolithiasis, previous history of UTI and secondary sepsis. Last Myocardial Infarction Date:: 2011 History of Any Multi-Drug Resistant Organisms: MRSA Year Discovered:: 2016 MDRO Source:: left axilla Past Surgical History: Appendectomy, Back Surgery, Cholecystectomy, Heart Catheterization, Hernia Repair Additional Past Surgical History / Comment(s): 2007 back surgery with decompression fusion at , 2011, 2016 cardiac cath, multiple ESWL/ureteral stents/ double J catheters, L inquinal hernia repair, PICC line for ABX for urosepsis-since removed., Hx of c-diff. 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 Smoking Status: Never smoker Past Alcohol Use History: None Reported Past Drug Use History: None Reported - Past Family History Father Family Medical History: Chest Pain / Angina Additional Family Medical History / Comment(s): "lung problems" Mother Family Medical History: Cancer, Chest Pain / Angina, Congestive Heart Failure (CHF), Osteoarthritis (OA), Thyroid Disorder Medications and Allergies Home Medications Medication Instructions Recorded Confirmed Type Lisinopril 40 mg PO DAILY 08/01/17 03/12/19 History Omeprazole [PriLOSEC] 20 mg PO BID 12/11/17 03/12/19 History Methocarbamol [Robaxin-750] 750 mg PO TID PRN 03/25/18 03/12/19 History metFORMIN HCL [Glucophage] 500 mg PO BID 04/24/18 03/12/19 History Atorvastatin [Lipitor] 40 mg PO DAILY #90 tab 05/22/18 03/12/19 Rx Diltiazem Cd [Cardizem CD] 300 mg PO DAILY #90 cap.er.24h 05/22/18 03/12/19 Rx Diclofenac Sodium [Voltaren] 75 mg PO BID PRN 10/22/18 03/12/19 History HYDROcodone/APAP 10-325MG [[place] 1 tab PO QID PRN 10/22/18 03/12/19 History 10-325] Hydrochlorothiazide 12.5 mg PO BID 10/22/18 03/12/19 History Carvedilol [Coreg] 25 mg PO BID 30 Days #60 tablet 03/13/19 Rx Allergies Allergy/AdvReac Type Severity Reaction Status Date / Time doxycycline Allergy Swelling Verified 03/12/19 12:04 ketorolac tromethamine Allergy Rash/Hives Verified 03/12/19 12:04 [From Toradol] morphine Allergy Rash/Hives Verified 03/12/19 12:04 metoclopramide HCl AdvReac Dystonic Verified 03/12/19 12:04 [From Reglan] Reaction prochlorperazine edisylate AdvReac Dystonic Verified 03/12/19 12:04 [From Compazine] Reaction prochlorperazine maleate AdvReac Dystonic Verified 03/12/19 12:04 [From Compazine] Reaction Physical Examination Physical exam: Patient is awake, alert, and oriented 3 Vital signs stable Good chest excursion with deep inspiration and expiration Abdomen soft nontender Examination of lumbar spine reveals skin is intact with no abrasions, lacerations, or bruises; no erythema, purulence or signs of infection No significant pain with palpation over the lumbar spine Evidence of a well-healed long midline incision over the lumbar spine Evidence of 2 smaller healed incisions over the paraspinal muscles bilaterally Dorsiflexion, plantarflexion, and extensor hallucis longus positive sustained bilaterally Lower extremity strength 5/5 bilaterally Patellar reflex 0+ bilaterally and Achilles reflexes 0+ bilaterally No lower extremity hyperreflexia bilaterally No signs or symptoms of DVT; no calf pain No pain with internal and external rotation of the hips bilaterally Neurovascularly intact Results Pertinent studies: CT of the lumbar spine taken on 03/12/2019: Screws appear to be in good alignment and position with pedicle screws at L3, L4, L5, and S1 bilaterally; evidence of rods extending from L3-L4 and also from L5-S1; evidence of interbody spacer at L3-4; evidence of previous fusion at L4-S1; no evidence of vertebral body compression fracture - Labs Labs: Abnormal Lab Results - Last 24 Hours (Table) 03/12/19 03/13/19 03/13/19 Range/Units 20:53 07:01 08:00 Lymphocytes # 0.8 L (1.0-4.8) k/uL Carbon Dioxide (22-30) mmol/L Glucose (74-99) mg/dL POC Glucose (mg/dL) 270 H 274 H (75-99) mg/dL 03/13/19 03/13/19 Range/Units 08:00 11:21 Lymphocytes # (1.0-4.8) k/uL Carbon Dioxide 19 L (22-30) mmol/L Glucose 254 H (74-99) mg/dL POC Glucose (mg/dL) 198 H (75-99) mg/dL H & H 03/13/19 Range/Units 08:00 Hgb 13.4 (13.0-17.5) gm/dL Hct 40.6 (39.0-53.0) % Result Diagrams: 03/13/19 08:00 03/13/19 08:00 Assessment and Plan Assessment: Assessment: Acute exacerbation of low back pain History of recent L3-4 posterior lateral decompression and fusion with transforaminal lumbar interbody fusion performed on 09/07/2018 at [facility] History of previous L4-5 and L5-S1 posterior lateral decompression and fusion History of multiple lumbar laminectomies Hypertension (1) Acute low back pain Status: Acute Code(s): M54.5 - LOW BACK PAIN SNOMED Code(s): 718239484 (2) History of lumbar fusion Status: Acute Code(s): Z98.1 - ARTHRODESIS STATUS SNOMED Code(s): 65034548186383 (3) History of laminectomy Status: Acute Code(s): Z98.890 - OTHER SPECIFIED POSTPROCEDURAL STATES SNOMED Code(s): 656686684 (4) HTN (hypertension) Status: Chronic Code(s): I10 - ESSENTIAL (PRIMARY) HYPERTENSION SNOMED Code(s): 69923104 Plan: Plan: 1. Patient has been discussed in detail with Dr. Hai Short and we have reviewed the patient's imaging. After physical examination the patient, further discussion with the patient, and review of imaging, we will plan to continue conservative treatment at this time. Patient has undergone multiple surgical interventions at his lumbar spine with his most recent being performed with a lumbar fusion at L3-4 on 09/07/2018. He is currently scheduled for further evaluation with his regular spine surgeon and plate painter apprentice next week. He is considering neurostimulator placement. At this time we would recommend him continue following with his other medical providers as scheduled. Patient states he does not wish to have any further workup or discuss possible surgical intervention while here at [facility]. He wishes to follow-up in the outpatient setting with his other medical providers as scheduled. We discussed we feel this is a good plan of care. At this time, patient is clear for discharge from an orthopedic spine standpoint. Patient will plan to follow-up with his regular spine surgeon in plate painter apprentice. 2. Patient will continue be seeing examined by medicine. Time with Patient: Greater than 30 (Including obtaining history, physical examination, reviewing of imaging, and dictation.)
== END 2019-03-13 14:35 | disposition home or self-care (01) ==
LOC: EC 11:34 → 3NMEDONC 15:01
PROVIDERS: ADMIT Hospitalist; ATTEND Hospitalist
DX: G89.29 Other chronic pain (principal); M54.5 Low back pain; M54.2 Cervicalgia; M19.90 Unspecified osteoarthritis, unspecified site; E11.9 Type 2 diabetes mellitus without complications; K21.9 Gastro-esophageal reflux disease without esophagitis; M51.16 Intervertebral disc disorders with radiculopathy, lumbar region; I10 Essential (primary) hypertension; I25.10 Atherosclerotic heart disease of native coronary artery without angina pectoris; E78.5 Hyperlipidemia, unspecified; I25.2 Old myocardial infarction; I34.1 Nonrheumatic mitral (valve) prolapse; G47.33 Obstructive sleep apnea (adult) (pediatric); Z99.89 Dependence on other enabling machines and devices; E66.9 Obesity, unspecified; Z68.41 Body mass index [BMI] 40.0-44.9, adult; J44.9 Chronic obstructive pulmonary disease, unspecified; Z98.1 Arthrodesis status; Z79.84 Long term (current) use of oral hypoglycemic drugs; Z79.899 Other long term (current) drug therapy; Z79.891 Long term (current) use of opiate analgesic; Z88.5 Allergy status to narcotic agent; Z88.8 Allergy status to other drugs, medicaments and biological substances; Z88.1 Allergy status to other antibiotic agents; Z87.11 Personal history of peptic ulcer disease; Z86.711 Personal history of pulmonary embolism; Z86.14 Personal history of Methicillin resistant Staphylococcus aureus infection; Z87.440 Personal history of urinary (tract) infections; Z86.19 Personal history of other infectious and parasitic diseases; Z87.442 Personal history of urinary calculi; Z90.49 Acquired absence of other specified parts of digestive tract; Z83.6 Family history of other diseases of the respiratory system; Z80.9 Family history of malignant neoplasm, unspecified; Z82.49 Family history of ischemic heart disease and other diseases of the circulatory system; Z83.49 Family history of other endocrine, nutritional and metabolic diseases; Z82.61 Family history of arthritis
CPT/HCPCS: 80048; 85025; 96361; 96372; 96374; 96376; 99284

== ENCOUNTER 2019-04-29 20:44 | Emergency (ER) | payer OTHER ==
[2019-04-29 20:55] VITALS: TEMP 99.8
[2019-04-29 21:59] VITALS: RESP 18
[2019-04-29] MEDS ORDERED: HYDROmorphone 1 MG/ML 1 ML SYRINGE IM STA (22:48)
--- NOTE | 2019-04-29 22:52 | ED ---
Back Pain HPI - General Chief Complaint: Back Pain/Injury Stated Complaint: Post Op back Pain Time Seen by Provider: 04/29/19 22:30 Source: patient Limitations: no limitations - History of Present Illness Initial Comments: This 53-year-old white male presents with a complaint of low back pain. He states that this is primarily in the midline and does have some radiation down his right leg. It started after lifting some furniture today. He does have a long history of chronic back pain problems. He states that he had surgery in 2007 on his lower back. He then had it again emergently in September of this year. He had a spinal stimulator placed and removed several weeks ago. He sees Dr. Mustafa from neurosurgery about of [facility]. He denies any fevers or chills. There is been no bowel or bladder abnormalities. He has been able to ambulate without difficulty. No other complaints or modifying factors. There is a significantly chronicity into his pain and he does follow up with a pain management doctor. His home [place] has not been helping. - Related Data Home Medications Medication Instructions Recorded Confirmed Lisinopril 40 mg PO DAILY 08/01/17 04/29/19 Omeprazole [PriLOSEC] 20 mg PO BID 12/11/17 04/29/19 metFORMIN HCL [Glucophage] 500 mg PO BID 04/24/18 04/29/19 Diclofenac Sodium [Voltaren] 75 mg PO BID PRN 10/22/18 04/29/19 HYDROcodone/APAP 10-325MG [[place] 1 tab PO QID PRN 10/22/18 04/29/19 10-325] Hydrochlorothiazide 12.5 mg PO BID 10/22/18 04/29/19 Previous Rx's Medication Instructions Recorded Atorvastatin [Lipitor] 40 mg PO DAILY #90 tab 05/22/18 Diltiazem Cd [Cardizem CD] 300 mg PO DAILY #90 cap.er.24h 05/22/18 Carvedilol [Coreg] 25 mg PO BID 30 Days #60 tablet 03/13/19 Allergies Allergy/AdvReac Type Severity Reaction Status Date / Time doxycycline Allergy Swelling Verified 04/29/19 22:04 ketorolac tromethamine Allergy Rash/Hives Verified 04/29/19 22:04 [From Toradol] morphine Allergy Rash/Hives Verified 04/29/19 22:04 metoclopramide HCl AdvReac Dystonic Verified 04/29/19 22:04 [From Reglan] Reaction prochlorperazine edisylate AdvReac Dystonic Verified 04/29/19 22:04 [From Compazine] Reaction prochlorperazine maleate AdvReac Dystonic Verified 04/29/19 22:04 [From Compazine] Reaction Review of Systems ROS Statement: Those systems with pertinent positive or pertinent negative responses have been documented in the HPI. ROS Other: All systems not noted in ROS Statement are negative. Past Medical History Past Medical History: Asthma, Chest Pain / Angina, Diabetes Mellitus, GERD/Reflux, Hyperlipidemia, Hypertension, Myocardial Infarction ([place]), Mitral Valve Prolapse (MVP), Pulmonary Embolus (PE), Sleep Apnea/CPAP/BIPAP Additional Past Medical History / Comment(s): Obesity, chronic asthmatic bronchitis, previous history of pulmonary embolism, objective sleep apnea, diabetes mellitus, hypertension, hyperlipidemia, previous history of myocardial infarction with underlying coronary artery disease, renal cysts, chronic back pain secondary to herniated lumbar disc disease with symptoms of sciatica, history of right lower extremity fracture at the age of 13, history of C. diff colitis approximately 4 years ago, history of bleeding peptic ulcer, nephrolithiasis, previous history of UTI and secondary sepsis. Last Myocardial Infarction Date:: 2011 History of Any Multi-Drug Resistant Organisms: MRSA Date of last positivie culture/infection: 2016 MDRO Source:: left axilla Past Surgical History: Appendectomy, Back Surgery, Cholecystectomy, Heart Catheterization, Hernia Repair Additional Past Surgical History / Comment(s): 2008 back surgery with decompression fusion at [facility], 2011, 2016 cardiac cath, multiple ESWL/ureteral stents/ double J catheters, L inquinal hernia repair, PICC line for ABX for urosepsis-since removed., Hx of c-diff. Past Anesthesia/Blood Transfusion Reactions: No Reported Reaction Past Psychological History: No Psychological Hx Reported Smoking Status: Never smoker Past Alcohol Use History: None Reported Past Drug Use History: None Reported - Past Family History Father Family Medical History: Chest Pain / Angina Additional Family Medical History / Comment(s): "lung problems" Mother Family Medical History: Cancer, Chest Pain / Angina, Congestive Heart Failure (CHF), Osteoarthritis (OA), Thyroid Disorder General Exam - General Exam Comments Initial Comments: GENERAL: The patient is well nourished and well hydrated. VITAL SIGNS: Heart rate, blood pressure, respiratory rate reviewed as recorded in nurse's notes. EYES: Pupils are round and reactive. Extraocular movements are intact. No conjunctival / lid redness or swelling. ENT: No external evidence of injury, swelling, or ecchymosis. Airway is patent. Throat is clear. NECK: Nontender. No swelling or evidence of injury. No subcutaneous emphysema. Trachea is midline. No thyroid mass. HEART: Regular rate and rhythm. Good peripheral pulses. LUNGS/CHEST: Breath sounds clear and equal bilaterally. No rales, rhonchi, or wheezes. No ecchymosis, subcutaneous emphysema, or tenderness. ABDOMEN: Abdomen soft without tenderness. No palpable masses or organomegaly. No peritoneal signs. No abdominal wall swelling or ecchymosis. EXTREMITIES: No extremity tenderness. Normal muscle tone and function. There is some mild tenderness in the midline lower back/lumbar region. NEUROLOGIC: Sensation is grossly intact. Cranial nerve exam reveals face is symmetrical, tongue is midline, speech is clear. SKIN: No abrasions or ecchymosis is noted. No induration or masses noted. PSYCHIATRIC: Alert and oriented. Appropriate behavior and judgment. Limitations: no limitations Course Vital Signs 04/29/19 04/29/19 20:50 21:56 Temperature 99.8 F H Pulse Rate 118 H 114 H Respiratory 20 18 Rate Blood Pressure 155/97 189/116 O2 Sat by Pulse 96 97 Oximetry Medical Decision Making - Medical Decision Making The patient was seen and examined. Old records are reviewed. It does appear that patient does have chronic back pain problems. It appears that he has a acute exacerbation. He is given Dilaudid 2 mg IM and it is felt as though he stable for discharge. He is to follow-up closely with his neurosurgeon. Disposition Clinical Impression: Acute low back pain, Chronic back pain Disposition: HOME SELF-CARE Condition: Good Instructions (If sedation given, give patient instructions): Acute Low Back Pain (ED), Chronic Back Pain (DC) Is patient prescribed a controlled substance at d/c from ED?: No Referrals: Trav Muniz MD [Primary Care Provider] - 1-2 days Time of Disposition: 22:52
[2019-04-29 23:02] VITALS: BP 143/102; PULSE 109
== END 2019-04-29 23:02 | disposition home or self-care (01) ==
LOC: EC 20:44
DX: G89.29 Other chronic pain (principal); M54.5 Low back pain; I25.2 Old myocardial infarction; E11.9 Type 2 diabetes mellitus without complications; K21.9 Gastro-esophageal reflux disease without esophagitis; E78.5 Hyperlipidemia, unspecified; I10 Essential (primary) hypertension; E66.9 Obesity, unspecified; I34.1 Nonrheumatic mitral (valve) prolapse; I25.10 Atherosclerotic heart disease of native coronary artery without angina pectoris; G47.30 Sleep apnea, unspecified; Z79.84 Long term (current) use of oral hypoglycemic drugs; Z79.899 Other long term (current) drug therapy; Z88.1 Allergy status to other antibiotic agents; Z88.5 Allergy status to narcotic agent; Z88.6 Allergy status to analgesic agent; Z88.8 Allergy status to other drugs, medicaments and biological substances; Z86.711 Personal history of pulmonary embolism; Z99.89 Dependence on other enabling machines and devices; Z95.5 Presence of coronary angioplasty implant and graft; Z98.890 Other specified postprocedural states; Z86.14 Personal history of Methicillin resistant Staphylococcus aureus infection; Z68.41 Body mass index [BMI] 40.0-44.9, adult
CPT/HCPCS: 96372; 99283; J1170

== ENCOUNTER 2019-04-30 11:49 | Emergency (ER) | payer OTHER ==
[2019-04-30] MEDS ORDERED: SODIUM CHLORIDE 0.9% 1,000 ML IV STA (13:09)
[2019-04-30] MEDS ORDERED: DIAZEPAM 5 MG/ML 2 ML INJ IVP STA (13:09)
[2019-04-30] MEDS ORDERED: HYDROmorphone 1 MG/ML 1 ML SYRINGE IVP STA (13:10)
--- NOTE | 2019-04-30 14:09 | ED ---
Back Pain HPI - General Chief Complaint: Back Pain/Injury Stated Complaint: Back pain Time Seen by Provider: 04/30/19 12:38 Source: patient, RN notes reviewed, old records reviewed Limitations: no limitations - History of Present Illness Initial Comments: Patient is a 53-year-old male with complaint of back pain. He had outpatient surgery 2 weeks ago when she had a temporary spinal stimulator placed. Patient reports that he had this removed. Yesterday he was seen emergency Department after lifting furniture. He states he tweaked his back. Given IM pain medication, and discharged home. Patient reports that he is continuing to have worsening pain since his last ER visit. No fall or direct trauma to the back. Denies saddle anesthesia. Patient reports that his senior benefits specialist is Dr. Mustafa at [place]. - Related Data Home Medications Medication Instructions Recorded Confirmed Lisinopril 40 mg PO DAILY 08/01/17 04/30/19 Omeprazole [PriLOSEC] 20 mg PO BID 12/11/17 04/30/19 metFORMIN HCL [Glucophage] 500 mg PO BID 04/24/18 04/30/19 Diclofenac Sodium [Voltaren] 75 mg PO BID PRN 10/22/18 04/30/19 HYDROcodone/APAP 10-325MG [[place] 1 tab PO QID PRN 10/22/18 04/30/19 10-325] Hydrochlorothiazide 12.5 mg PO BID 10/22/18 04/30/19 Previous Rx's Medication Instructions Recorded Atorvastatin [Lipitor] 40 mg PO DAILY #90 tab 05/22/18 Diltiazem Cd [Cardizem CD] 300 mg PO DAILY #90 cap.er.24h 05/22/18 Carvedilol [Coreg] 25 mg PO BID 30 Days #60 tablet 03/13/19 Allergies Allergy/AdvReac Type Severity Reaction Status Date / Time doxycycline Allergy Swelling Verified 04/29/19 22:04 ketorolac tromethamine Allergy Rash/Hives Verified 04/29/19 22:04 [From Toradol] morphine Allergy Rash/Hives Verified 04/29/19 22:04 metoclopramide HCl AdvReac Dystonic Verified 04/29/19 22:04 [From Reglan] Reaction prochlorperazine edisylate AdvReac Dystonic Verified 04/29/19 22:04 [From Compazine] Reaction prochlorperazine maleate AdvReac Dystonic Verified 04/29/19 22:04 [From Compazine] Reaction Review of Systems ROS Statement: Those systems with pertinent positive or pertinent negative responses have been documented in the HPI. ROS Other: All systems not noted in ROS Statement are negative. Past Medical History Past Medical History: Asthma, Chest Pain / Angina, Diabetes Mellitus, GERD/Reflux, Hyperlipidemia, Hypertension, Myocardial Infarction ([place]), Mitral Valve Prolapse (MVP), Pulmonary Embolus (PE), Sleep Apnea/CPAP/BIPAP Additional Past Medical History / Comment(s): Obesity, chronic asthmatic bronchitis, previous history of pulmonary embolism, objective sleep apnea, melinda betes mellitus, hypertension, hyperlipidemia, previous history of myocardial infarction with underlying coronary artery disease, renal cysts, chronic back pain secondary to herniated lumbar disc disease with symptoms of sciatica, history of right lower extremity fracture at the age of 13, history of C. diff colitis approximately 4 years ago, history of bleeding peptic ulcer, nephrolithiasis, previous history of UTI and secondary sepsis. Last Myocardial Infarction Date:: 2011 History of Any Multi-Drug Resistant Organisms: MRSA Date of last positivie culture/infection: 2015 MDRO Source:: left axilla Past Surgical History: Appendectomy, Back Surgery, Cholecystectomy, Heart Catheterization, Hernia Repair Additional Past Surgical History / Comment(s): 2007 back surgery with decompression fusion at [facility], 2011, 2016 cardiac cath, multiple ESWL/ureteral stents/ double J catheters, L inquinal hernia repair, PICC line for ABX for urosepsis-since removed., Hx of c-diff. Past Anesthesia/Blood Transfusion Reactions: No Reported Reaction Past Psychological History: No Psychological Hx Reported Smoking Status: Never smoker Past Alcohol Use History: None Reported Past Drug Use History: None Reported - Past Family History Father Family Medical History: Chest Pain / Angina Additional Family Medical History / Comment(s): "lung problems" Mother Family Medical History: Cancer, Chest Pain / Angina, Congestive Heart Failure (CHF), Osteoarthritis (OA), Thyroid Disorder General Exam - General Exam Comments Initial Comments: 53-year-old male. Patient appears in moderate discomfort. Limitations: no limitations General appearance: alert, in no apparent distress Head exam: Present: atraumatic, normocephalic, normal inspection Eye exam: Present: normal appearance, PERRL, EOMI. Absent: scleral icterus, conjunctival injection, periorbital swelling ENT exam: Present: normal exam, mucous membranes moist Neck exam: Present: normal inspection. Absent: tenderness, meningismus, lymp hadenopathy Respiratory exam: Present: normal lung sounds bilaterally Cardiovascular Exam: Present: regular rate GI/Abdominal exam: Present: soft, normal bowel sounds. Absent: distended, tenderness, guarding, rebound, rigid Extremities exam: Present: normal inspection, full ROM, normal capillary refill. Absent: tenderness, pedal edema, joint swelling, calf tenderness Back exam: Present: normal inspection, tenderness (Lower lumbar spine tenderness.) Neurological exam: Present: alert, oriented X3, CN II-XII intact Psychiatric exam: Present: normal affect, normal mood Skin exam: Present: warm, dry, intact, normal color. Absent: rash Course Vital Signs 04/30/19 04/30/19 12:17 16:50 Temperature 99.2 F 98.2 F Pulse Rate 114 H 112 H Respiratory 18 16 Rate Blood Pressure 156/97 161/97 O2 Sat by Pulse 97 95 Oximetry Medical Decision Making - Medical Decision Making 51-year-old male with a chronic back pain. He presents today after taking second sheet. He was seen here at that time was given IM pain medicine and's discharged home. Patient reports he's had persistent pain since then. Symptoms started after an furniture. At this time Patient has no saddle anesthesias. He reports the pain radiates down towards his right leg. He states that is chronic as well. His back specialist is Dr. Perez [facility]. This time Patient seen and drinking without significant difficulty. He was given IM pain medication, muscle x-ray. We did obtain blood work with his history of back procedure and his white blood cell count is normal. Vital signs are stable. U rinalysis negative for infection. At this time Patient had did have a CT of his lumbar spine. Negative for any acute changes compared to last CT arch of this past year. Patient was improving his results. I discussed the Patient have further pain or any other symptoms he could return. He has no saddle anesthesia this time discussed no need for direct transfer at this time. Patient is agreeable to this plan states he has a lot of has to take care of at home and taking care of his family prefers to be discharged home at this time. Discussed resuming his at home pain medication and if there is any worsening signs or symptoms he can always return to ER. - Lab Data Result diagrams: 04/30/19 14:40 04/30/19 14:40 Lab Results 04/30/19 04/30/19 04/30/19 Range/Units 14:40 14:40 15:10 WBC 9.1 (3.8-10.6) k/uL RBC 4.89 (4.30-5.90) m/uL Hgb 14.3 (13.0-17.5) gm/dL Hct 41.9 (39.0-53.0) % MCV 85.8 (80.0-100.0) fL MCH 29.2 (25.0-35.0) pg MCHC 34.1 (31.0-37.0) g/dL RDW 13.6 (11.5-15.5) % Plt Count 337 (150-450) k/uL Neutrophils % 72 % Lymphocytes % 13 % Monocytes % 8 % Eosinophils % 3 % Basophils % 1 % Neutrophils # 6.6 (1.3-7.7) k/uL Lymphocytes # 1.2 (1.0-4.8) k/uL Monocytes # 0.7 (0-1.0) k/uL Eosinophils # 0.2 (0-0.7) k/uL Basophils # 0.1 (0-0.2) k/uL Sodium 136 L (137-145) mmol/L Potassium 4.6 (3.5-5.1) mmol/L Chloride 103 (98-107) mmol/L Carbon Dioxide 18 L (22-30) mmol/L Anion Gap 15 mmol/L BUN 10 (9-20) mg/dL Creatinine 0.56 L (0.66-1.25) mg/dL Est GFR (CKD-EPI)AfAm >90 (>60 ml/min/1.73 sqM) Est GFR (CKD-EPI)NonAf >90 (>60 ml/min/1.73 sqM) Glucose 191 H (74-99) mg/dL Calcium 9.6 (8.4-10.2) mg/dL Total Bilirubin 0.9 (0.2-1.3) mg/dL AST 62 H (17-59) U/L ALT 67 (21-72) U/L Alkaline Phosphatase 123 (38-126) U/L Total Protein 7.8 (6.3-8.2) g/dL Albumin 4.5 (3.5-5.0) g/dL Urine Color Yellow Urine Appearance Cloudy (Clear) Urine pH 5.0 (5.0-8.0) Ur Specific [place] 1.026 (1.001-1.035) Urine Protein Trace H (Negative) Urine Glucose (UA) 4+ H (Negative) Urine Ketones Negative (Negative) Urine Blood Negative (Negative) Urine Nitrite Negative (Negative) Urine Bilirubin Negative (Negative) Urine Urobilinogen <2.0 (<2.0) mg/dL Ur Leukocyte Esterase Trace H (Negative) Urine RBC 2 (0-5) /hpf Urine WBC 11 H (0-5) /hpf Ur Squamous Epith Cells 11 H (0-4) /hpf Urine Mucus Many H (None) /hpf Urine Sperm Rare (None) /hpf Disposition Clinical Impression: Back pain with right-sided radiculopathy, DDD (degenerative disc disease), lumbar Disposition: HOME SELF-CARE Condition: Good Instructions (If sedation given, give patient instructions): Acute Low Back Pain (ED) Additional Instructions: Please use medication as discussed. Please follow up with family doctor if symptoms have not improved over the next two days. Please return to the emergency room if your symptoms increase or worsen or for any other concerns. Is patient prescribed a controlled substance at d/c from ED?: No Referrals: Trav Muniz MD [Primary Care Provider] - 1-2 days Time of Disposition: 16:42
[2019-04-30 14:58] LABS: Basophils # (A) 0.1 k/uL (0-0.2); Basophils % (A) 1 %; Eosinophils # (A) 0.2 k/uL (0-0.7); Eosinophils % (A) 3 %; HCT 41.9 % (39.0-53.0); HGB 14.3 gm/dL (13.0-17.5); Lymphocytes # (A) 1.2 k/uL (1.0-4.8); Lymphocytes % (A) 13 %; MCH 29.2 pg (25.0-35.0); MCHC 34.1 g/dL (31.0-37.0); MCV 85.8 fL (80.0-100.0); Mean Platelet Volume 6.5; Monocytes # (A) 0.7 k/uL (0-1.0); Monocytes % (A) 8 %; Neutrophils # (A) 6.6 k/uL (1.3-7.7); Neutrophils % (A) 72 %; Platelet Count 337 k/uL (150-450); RBC 4.89 m/uL (4.30-5.90); RDW 13.6 % (11.5-15.5); WBC 9.1 k/uL (3.8-10.6)
[2019-04-30 15:10] LABS: ALT 67 U/L (21-72); AST 62 U/L (17-59); African American GFR (CKD) >90 (>60 ml/min/1.73 sqM); Albumin 4.5 g/dL (3.5-5.0); Alkaline Phosphatase 123 U/L (38-126); Anion Gap 15 mmol/L; Blood Urea Nitrogen 10 mg/dL (9-20); Calcium 9.6 mg/dL (8.4-10.2); Carbon Dioxide 18 mmol/L (22-30); Chloride 103 mmol/L (98-107); Glucose 191 mg/dL (74-99); Sodium 136 mmol/L (137-145); Total Bilirubin 0.9 mg/dL (0.2-1.3); Total Protein 7.8 g/dL (6.3-8.2)
[2019-04-30 15:16] LABS: Potassium 4.6 mmol/L (3.5-5.1)
[2019-04-30 15:41] LABS: Appearance,Urine Cloudy (Clear); Bilirubin,Urine Negative (Negative); Blood,Urine Negative (Negative); Color,Urine Yellow; Glucose,Urine (UA) 4+ (Negative); Ketones,Urine Negative (Negative); Leukocyte Esterase,Urine Trace (Negative); Mucus,Urine Many /hpf; Nitrite,Urine Negative (Negative); Protein,Urine Trace (Negative); RBC,Urine 2 /hpf (0-5); Specific Gravity,Urine 1.026 (1.001-1.035); Sperm,Urine Rare /hpf; Squamous Epithelial Cell,Urine 11 /hpf (0-4); Urobilinogen,Urine <2.0 mg/dL (<2.0); WBC,Urine 11 /hpf (0-5)
--- NOTE | 2019-04-30 15:57 | CT ---
EXAMINATION TYPE: CT lumbar spine wo con DATE OF EXAM: 04/30/2019 3:48 PM COMPARISON: CT lumbar spine dated 10/03/2018 HISTORY: Lower back pain CT DLP: 1401.4 mGycm Automated exposure control for dose reduction was used. TECHNIQUE: Unenhanced CT of the lumbar spine was performed. Bone and soft tissue window settings are submitted as well as coronal and sagittal reconstructions. FINDINGS: There is fusion of the L2-S1 vertebral levels with intervertebral disc at L2-L3 and postsur gical changes of the disks at L3-L4 and L4-L5. Vertebral body heights and alignment are maintained. S urgical screws create spray artifact limiting evaluation of the surrounding structures. Slight atroph y of the lower paraspinal musculature. Surgical excision of the spinous processes from L4 inferiorly. Probable right renal cyst measuring 2.9 cm. Partially visualized hepatic steatosis. Mild atheroscler osis of the abdominal aorta. L1-L2: Broad-based disc bulge with bilateral mild neural foraminal narrowing. L2-L3: Facet arthropathy and broad-based disc bulge resulting in mild bilateral neural foraminal narr owing. No spinal canal stenosis. L3-L4: Intervertebral disc age and facet arthropathy. Evaluation of the neural foramina are limited h owever there appears to be at least moderate bilateral neural foraminal narrowing. L4-L5: Resection of the posterior elements and postsurgical change of the disc space. At least mild b ilateral neural foraminal narrowing from facet arthropathy. No spinal canal stenosis. L5-S1: Resection of posterior elements and postsurgical changes of the discs. Evaluation of the neura l foramen are nondiagnostic given spray artifact from the pedicular screws. Donor site for autograft is seen within the right iliac crest. IMPRESSION: Postsurgical change although lumbosacral spine with no new vertebral body height or malalignment. If there is persistent pain MR with contrast could evaluate for epidural fibrosis.
[2019-04-30] MEDS ORDERED: HYDROmorphone 1 MG/ML 1 ML SYRINGE IM STA (16:39)
[2019-04-30] MEDS ORDERED: ORPHENADRINE 30 MG/ML 2 ML VIAL IM STA (16:40)
[2019-04-30 16:57] VITALS: BP 161/97; PULSE 112; RESP 16; TEMP 98.2
== END 2019-04-30 16:50 | disposition home or self-care (01) ==
LOC: EC 11:49
DX: M51.16 Intervertebral disc disorders with radiculopathy, lumbar region (principal); G89.29 Other chronic pain; I10 Essential (primary) hypertension; E11.9 Type 2 diabetes mellitus without complications; I25.2 Old myocardial infarction; G47.30 Sleep apnea, unspecified; I25.10 Atherosclerotic heart disease of native coronary artery without angina pectoris; E66.9 Obesity, unspecified; Z68.41 Body mass index [BMI] 40.0-44.9, adult; Z79.84 Long term (current) use of oral hypoglycemic drugs; Z79.899 Other long term (current) drug therapy; Z88.1 Allergy status to other antibiotic agents; Z88.5 Allergy status to narcotic agent; Z88.8 Allergy status to other drugs, medicaments and biological substances; Z86.711 Personal history of pulmonary embolism
CPT/HCPCS: 36415; 80053; 85025; 81001; 72131; 99284; 96374; 96375; 96372; J3360; J1170

== ENCOUNTER 2019-05-04 18:01 | Emergency (ER) | payer OTHER ==
[2019-05-04 18:20] VITALS: RESP 18; TEMP 99.4
[2019-05-04] MEDS ORDERED: HYDROmorphone 1 MG/ML 1 ML SYRINGE IVP STA (18:46)
[2019-05-04] MEDS ORDERED: HYDROmorphone 1 MG/ML 1 ML SYRINGE IM STA (19:22)
--- NOTE | 2019-05-04 19:31 | ED ---
General Adult HPI - General Chief complaint: Back Pain/Injury Stated complaint: back pain Time Seen by Provider: 05/04/19 18:25 Source: patient, RN notes reviewed, old records reviewed Mode of arrival: ambulatory Limitations: no limitations - History of Present Illness Initial comments: 53-year-old male patient passed history of chronic back pain, COPD exacerbation of chronic back pain. Patient reports that approximately 4 days ago he moved a table and has been having pain in his right lumbar region since. Patient has been seen in this emergency department 2 times last week for similar symptoms. Denies any new or concerning symptoms. Patient does report that today he had an episode of urinary or bowel incontinence. Patient does report that this is a chronic issue for him,. Patient otherwise denies any red flag symptoms. Denies any saddle anesthesia, lower extremity weakness. Denies any recent falls or trauma. Denies any other complaints. Systemic: Pt denies fatigue, fever/chills, rash. Pt denies weakness, night sweats, weight loss. Neuro: Pt denies headache, visual disturbances, syncope or pre-syncope. HEENT: Pt denies ocular discharge or irritation, otalgia, rhinorrhea, pharyngitis or notable lymphadenopathy. Cardiopulmonary: Pt denies chest pain, SOB, heart palpitations, dyspnea on exertion. Abdominal/GI: Pt denies abdominal pain, n/v/d. : Pt denies dysuria, burning w/ urination, frequency/urgency. MSK: Pt denies loss of strength or function in extremities. Neuro: Pt denies new onset weakness, paresthesias. - Related Data Home Medications Medication Instructions Recorded Confirmed Lisinopril 40 mg PO DAILY 08/01/17 04/30/19 Omeprazole [PriLOSEC] 20 mg PO BID 12/11/17 04/30/19 metFORMIN HCL [Glucophage] 500 mg PO BID 04/24/18 04/30/19 Diclofenac Sodium [Voltaren] 75 mg PO BID PRN 10/22/18 04/30/19 HYDROcodone/APAP 10-325MG [[place] 1 tab PO QID PRN 10/22/18 04/30/19 10-325] Hydrochlorothiazide 12.5 mg PO BID 10/22/18 04/30/19 Previous Rx's Medication Instructions Recorded Atorvastatin [Lipitor] 40 mg PO DAILY #90 tab 05/22/18 Diltiazem Cd [Cardizem CD] 300 mg PO DAILY #90 cap.er.24h 05/22/18 Carvedilol [Coreg] 25 mg PO BID 30 Days #60 tablet 03/13/19 Allergies Allergy/AdvReac Type Severity Reaction Status Date / Time doxycycline Allergy Swelling Verified 05/04/19 18:20 ketorolac tromethamine Allergy Rash/Hives Verified 05/04/19 18:20 [From Toradol] morphine Allergy Rash/Hives Verified 05/04/19 18:20 metoclopramide HCl AdvReac Dystonic Verified 05/04/19 18:20 [From Reglan] Reaction prochlorperazine edisylate AdvReac Dystonic Verified 05/04/19 18:20 [From Compazine] Reaction prochlorperazine maleate AdvReac Dystonic Verified 05/04/19 18:20 [From Compazine] Reaction Review of Systems ROS Statement: Those systems with pertinent positive or pertinent negative responses have been documented in the HPI. ROS Other: All systems not noted in ROS Statement are negative. Past Medical History Past Medical History: Asthma, Chest Pain / Angina, Diabetes Mellitus, GERD/Reflux, Hyperlipidemia, Hypertension, Myocardial Infarction ([place]), Mitral Valve Prolapse (MVP), Pulmonary Embolus (PE), Sleep Apnea/CPAP/BIPAP Additional Past Medical History / Comment(s): Obesity, chronic asthmatic bronch itis, previous history of pulmonary embolism, objective sleep apnea, diabetes mellitus, hypertension, hyperlipidemia, previous history of myocardial infarction with underlying coronary artery disease, renal cysts, chronic back pain secondary to herniated lumbar disc disease with symptoms of sciatica, history of right lower extremity fracture at the age of 13, history of C. diff colitis approximately 4 years ago, history of bleeding peptic ulcer, nephrolithiasis, previous history of UTI and secondary sepsis. Last Myocardial Infarction Date:: 2011 History of Any Multi-Drug Resistant Organisms: MRSA Date of last positivie culture/infection: 2015 MDRO Source:: left axilla Past Surgical History: Appendectomy, Back Surgery, Cholecystectomy, Heart Catheterization, Hernia Repair Additional Past Surgical History / Comment(s): 2007 back surgery with decompression fusion at [facility], 2011, 2016 cardiac cath, multiple ESWL/ureteral stents/ double J catheters, L inquinal hernia repair, PICC line for ABX for urosepsis-since removed., Hx of c-diff. Past Anesthesia/Blood Transfusion Reactions: No Reported Reaction Past Psychological History: No Psychological Hx Reported Smoking Status: Never smoker Past Alcohol Use History: None Reported Past Drug Use History: None Reported - Past Family History Father Family Medical History: Chest Pain / Angina Additional Family Medical History / Comment(s): "lung problems" Mother Family Medical History: Cancer, Chest Pain / Angina, Congestive Heart Failure (CHF), Osteoarthritis (OA), Thyroid Disorder General Exam - General Exam Comments Initial Comments: Constitutional: NAD, AOX3, Pt has pleasant affect. HEENT: NC/AT, trachea midline, neck supple, no lymphadenopathy. Posterior pharynx non erythematous, without exudates. External ears appear normal, without discharge. Mucous membranes moist. Eyes PERRLA, EOM intact. There is no scleral icterus. No pallor noted. Cardiopulmonary: RRR, no murmurs, rubs or gallops, no JVD noted. Lungs CTAB in anterior and posterior turner. No peripheral edema. Abdominal exam: Abdomen soft and non-distended. Abdomen non-tender to palpation in all 4 quadrants. Bowel sounds active in LLQ. No hepatosplenomegaly. No ecchymosis Neuro: CN II-XII grossly intact. No nuchal rigidity. No raccon eyes, no zavaleta sign, no hemotympanum. No cervical spinal tenderness. MSK: Right straight leg raise positive, left straight leg raise negative. Cervical thoracic lumbar spine region nontender palpation. No skin changes. 5 out of 5 strength psoas quadriceps muscles. Rectal tone intact. Sensation intact. No posterior calf tenderness bilaterally, homans sign negative bilaterally. Posterior tibialis and radial pulse +2 bilaterally. Sensation in tact in upper and lower extremities. Full active ROM in upper and lower extremities, 5/5 stregnth. Limitations: no limitations Course Vital Signs 05/04/19 18:17 Temperature 99.4 F Pulse Rate 117 H Respiratory 18 Rate Blood Pressure 193/94 O2 Sat by Pulse 97 Oximetry Medical Decision Making - Medical Decision Making 53-year-old male patient does ED for chief complaint of exacerbation of chronic back pain. Patient was signed displayed hypertension, otherwise stable. Physical exam displayed right straight leg raise positive, strength and sensation intact. Rectal tone intact. Denies any otherwise red flag symptoms. Patient is able to bear weight. Discussed case with Dr. Mustafa who operated on patient approximately 3 years ago. Confirms that bowel and bladder incontinence are chronic issues. Patient pain well-controlled ED. Patient was discharged with follow-up with surgeon. Case discussed in depth with Dr. Gusman. Disposition Clinical Impression: Lumbar back pain Disposition: HOME SELF-CARE Condition: Stable Instructions (If sedation given, give patient instructions): Acute Low Back Pain (ED) Additional Instructions: Patient to adhere to previously discussed treatment plan and will take medication(s) as directed. Patient to follow up with PCP in 1-2 days. Patient to return to ED if symptoms do not improve. Follow-up with surgeon Dr. Horowitz tomorrow. Return to ER if condition worsens in any way. Is patient prescribed a controlled substance at d/c from ED?: No Referrals: Trav Muniz MD [Primary Care Provider] - 1-2 days
[2019-05-04] MEDS ORDERED: DIAZEPAM 5 MG TAB PO STA (19:47)
[2019-05-04] MEDS ORDERED: HYDROmorphone 0.5 MG/0.5 ML SYRINGE IM STA (20:39)
[2019-05-04 21:15] VITALS: BP 160/98; PULSE 91
== END 2019-05-04 21:13 | disposition home or self-care (01) ==
LOC: EC 18:01
DX: G89.29 Other chronic pain (principal); M54.5 Low back pain; I10 Essential (primary) hypertension; R32 Unspecified urinary incontinence; K21.9 Gastro-esophageal reflux disease without esophagitis; E11.9 Type 2 diabetes mellitus without complications; I25.2 Old myocardial infarction; I25.119 Atherosclerotic heart disease of native coronary artery with unspecified angina pectoris; E78.5 Hyperlipidemia, unspecified; I34.1 Nonrheumatic mitral (valve) prolapse; G47.33 Obstructive sleep apnea (adult) (pediatric); E66.9 Obesity, unspecified; Z79.84 Long term (current) use of oral hypoglycemic drugs; Z79.899 Other long term (current) drug therapy; Z88.1 Allergy status to other antibiotic agents; Z88.6 Allergy status to analgesic agent; Z88.5 Allergy status to narcotic agent; Z88.8 Allergy status to other drugs, medicaments and biological substances; Z98.890 Other specified postprocedural states; Z95.5 Presence of coronary angioplasty implant and graft; Z99.89 Dependence on other enabling machines and devices; Z86.711 Personal history of pulmonary embolism; Z87.11 Personal history of peptic ulcer disease; Z68.41 Body mass index [BMI] 40.0-44.9, adult; Z86.14 Personal history of Methicillin resistant Staphylococcus aureus infection
CPT/HCPCS: 99284; 96372 ×2; J1170 ×2

== ENCOUNTER 2019-07-20 13:55 | Emergency (ER) | payer OTHER ==
[2019-07-20] MEDS ORDERED: ONDANSETRON 4 MG/2 ML VIAL IVP STA (14:37)
[2019-07-20] MEDS ORDERED: SODIUM CHLORIDE 0.9% 1,000 ML IV STA (14:37)
[2019-07-20] MEDS ORDERED: HYDROmorphone 1 MG/ML 1 ML SYRINGE IVP STA (14:39)
[2019-07-20 14:58] LABS: Glucose,Whole Blood 318 mg/dL (75-99)
--- NOTE | 2019-07-20 14:59 | ED ---
Abdominal Pain HPI - General Chief Complaint: Abdominal Pain Stated Complaint: Flank pain Time Seen by Provider: 07/20/19 14:22 Source: patient Mode of arrival: ambulatory - History of Present Illness Initial Comments: Patient is a 53-year-old male, with multiple comorbidities including diabetes, hypertension, chronic back pain, presenting with a right-sided flank pain since yesterday as well as an increase in urination. Patient states he has a history of kidney stones although he hasn't had one in years. He has history of cholecystectomy and appendectomy, no other abdominal surgeries. He had regular bowel movements. Patient also states his PCP recently switched his insulin and he ran out 2 days ago. Patient states he checked his blood sugar this morning and it was in the 300s. Patient denies fever, chills. He does admit to mild nausea, no vomiting. He has no other complaints at this time. Upon arrival to ER, patient was tachycardia at 128, BP is 169/123, rest of vitals normal. - Related Data Home Medications Medication Instructions Recorded Confirmed Lisinopril 40 mg PO DAILY 08/01/17 04/30/19 Omeprazole [PriLOSEC] 20 mg PO BID 12/11/17 04/30/19 metFORMIN HCL [Glucophage] 500 mg PO BID 04/24/18 04/30/19 Diclofenac Sodium [Voltaren] 75 mg PO BID PRN 10/22/18 04/30/19 HYDROcodone/APAP 10-325MG [[place] 1 tab PO QID PRN 10/22/18 04/30/19 10-325] Hydrochlorothiazide 12.5 mg PO BID 10/22/18 04/30/19 Previous Rx's Medication Instructions Recorded Atorvastatin [Lipitor] 40 mg PO DAILY #90 tab 05/22/18 Diltiazem Cd [Cardizem CD] 300 mg PO DAILY #90 cap.er.24h 05/22/18 Carvedilol [Coreg] 25 mg PO BID 30 Days #60 tablet 03/13/19 Allergies Allergy/AdvReac Type Severity Reaction Status Date / Time doxycycline Allergy Swelling Verified 07/20/19 14:28 ketorolac tromethamine Allergy Rash/Hives Verified 07/20/19 14:28 [From Toradol] morphine Allergy Rash/Hives Verified 07/20/19 14:28 metoclopramide HCl AdvReac Dystonic Verified 07/20/19 14:28 [From Reglan] Reaction prochlorperazine edisylate AdvReac Dystonic Verified 07/20/19 14:28 [From Compazine] Reaction prochlorperazine maleate AdvReac Dystonic Verified 07/20/19 14:28 [From Compazine] Reaction Review of Systems ROS Statement: Those systems with pertinent positive or pertinent negative responses have been documented in the HPI. ROS Other: All systems not noted in ROS Statement are negative. Past Medical History Past Medical History: Asthma, Chest Pain / Angina, Diabetes Mellitus, GERD/Reflux, Hyperlipidemia, Hypertension, Myocardial Infarction ([place]), Mitral Valve Prolapse (MVP), Pulmonary Embolus (PE), Sleep Apnea/CPAP/BIPAP Additional Past Medical History / Comment(s): Obesity, chronic asthmatic bronchitis, previous history of pulmonary embolism, objective sleep apnea, diabetes mellitus, hypertension, hyperlipidemia, previous history of myocardial infarction with underlying coronary artery disease, renal cysts, chronic back pain secondary to herniated lumbar disc disease with symptoms of sciatica, history of right lower extremity fracture at the age of 13, history of C. diff colitis approximately 4 years ago, history of bleeding peptic ulcer, nephrolithiasis, previous history of UTI and secondary sepsis. Last Myocardial Infarction Date:: 2011 History of Any Multi-Drug Resistant Organisms: MRSA Date of last positivie culture/infection: 2015 MDRO Source:: left axilla Past Surgical History: Appendectomy, Back Surgery, Cholecystectomy, Heart Catheterization, Hernia Repair Additional Past Surgical History / Comment(s): 2007 back surgery with decompression fusion at [facility], 2011, 2016 cardiac cath, multiple ESWL/ureteral stents/ double J catheters, L inquinal hernia repair, PICC line for ABX for urosepsis-since removed., Hx of c-diff. Past Anesthesia/Blood Transfusion Reactions: No Reported Reaction Past Psychological History: No Psychological Hx Reported Smoking Status: Never smoker Past Alcohol Use History: None Reported Past Drug Use History: None Reported - Past Family History Father Family Medical History: Chest Pain / Angina Additional Family Medical History / Comment(s): "lung problems" Mother Family Medical History: Cancer, Chest Pain / Angina, Congestive Heart Failure (CHF), Osteoarthritis (OA), Thyroid Disorder General Exam - General Exam Comments Initial Comments: GENERAL: Patient appears anxious, no acute distress. HEAD: Atraumatic, normocephalic. EYES: Pupils equal round and reactive to light, extraocular movements intact, sclera anicteric, conjunctiva are normal. ENT: TMs normal, nares patent, oropharynx clear without exudates. Moist mucous membranes. NECK: Normal range of motion, supple without lymphadenopathy or JVD. LUNGS: Breath sounds clear to auscultation bilaterally and equal. No wheezes rales or rhonchi. HEART: Tachycardia rate and rhythm without murmurs, rubs or gallops. ABDOMEN: Tender to palpation of the right lower quadrant and right sided abdomen. Soft, normoactive bowel sounds. No guarding, no rebound. No masses appreciated. : Deferred EXTREMITIES: Normal range of motion, no pitting or edema. No clubbing or cyanosis. NEUROLOGICAL: Normal speech, normal gait. PSYCH: Normal mood, normal affect. SKIN: Warm, Dry, normal turgor, no rashes or lesions noted. Course Vital Signs 07/20/19 07/20/19 07/20/19 14:22 15:00 16:00 Temperature 98.1 F 97.8 F Pulse Rate 128 H 117 H 112 H Respiratory 22 17 18 Rate Blood Pressure 169/123 155/97 O2 Sat by Pulse 97 98 95 Oximetry 07/20/19 17:00 Temperature Pulse Rate 110 H Respiratory 18 Rate Blood Pressure 140/100 O2 Sat by Pulse 97 Oximetry Medical Decision Making - Medical Decision Making Patient is a 53-year-old male presenting with right flank pain and elevated gluc ose. Patient was recently switched to insulin pen and he is out for the last 2 days. Glucose 318 today. Lab work is unremarkable. Urine shows 4+ glucose, no blood, no signs of infection. Acetone is negative. KUB shows a nonacute abdomen. Patient was given fluids, Zofran, Dilaudid. He reports improvement of symptoms. Blood glucose recheck was 230. I discussed these findings with the patient. Patient is stable for discharge at this time. He'll follow up with his PCP on Monday regarding his insulin. He is in agreement this plan of care. Case discussed with Dr. Dwyer. - Lab Data Result diagrams: 07/20/19 15:14 07/20/19 15:14 Lab Results 07/20/19 07/20/19 07/20/19 Range/Units 14:54 15:14 15:14 WBC 6.7 (3.8-10.6) k/uL RBC 4.81 (4.30-5.90) m/uL Hgb 13.8 (13.0-17.5) gm/dL Hct 40.7 (39.0-53.0) % MCV 84.6 (80.0-100.0) fL MCH 28.7 (25.0-35.0) pg MCHC 33.9 (31.0-37.0) g/dL RDW 13.6 (11.5-15.5) % Plt Count 294 (150-450) k/uL Neutrophils % 66 % Lymphocytes % 22 % Monocytes % 6 % Eosinophils % 3 % Basophils % 1 % Neutrophils # 4.4 (1.3-7.7) k/uL Lymphocytes # 1.5 (1.0-4.8) k/uL Monocytes # 0.4 (0-1.0) k/uL Eosinophils # 0.2 (0-0.7) k/uL Basophils # 0.0 (0-0.2) k/uL PT (9.0-12.0) sec INR (<1.2) APTT (22.0-30.0) sec Sodium 136 L (137-145) mmol/L Potassium 4.4 (3.5-5.1) mmol/L Chloride 102 (98-107) mmol/L Carbon Dioxide 21 L (22-30) mmol/L Anion Gap 13 mmol/L BUN 12 (9-20) mg/dL Creatinine 0.68 (0.66-1.25) mg/dL Est GFR (CKD-EPI)AfAm >90 (>60 ml/min/1.73 sqM) Est GFR (CKD-EPI)NonAf >90 (>60 ml/min/1.73 sqM) Glucose 320 H (74-99) mg/dL POC Glucose (mg/dL) 318 H (75-99) mg/dL POC Glu Assorter ID Rossy Leal Calcium 9.8 (8.4-10.2) mg/dL Total Bilirubin 0.5 (0.2-1.3) mg/dL AST 47 (17-59) U/L ALT 50 H (4-49) U/L Alkaline Phosphatase 138 H (38-126) U/L Total Protein 7.4 (6.3-8.2) g/dL Albumin 4.4 (3.5-5.0) g/dL Amylase 53 (30-110) U/L Lipase 134 (23-300) U/L Urine Color Urine Appearance (Clear) Urine pH (5.0-8.0) Ur Specific [place] (1.001-1.035) Urine Protein (Negative) Urine Glucose (UA) (Negative) Urine Ketones (Negative) Urine Blood (Negative) Urine Nitrite (Negative) Urine Bilirubin (Negative) Urine Urobilinogen (<2.0) mg/dL Ur Leukocyte Esterase (Negative) Acetone, Qual Negative (Negative) 07/20/19 07/20/19 07/20/19 Range/Units 15:14 15:14 17:26 WBC (3.8-10.6) k/uL RBC (4.30-5.90) m/uL Hgb (13.0-17.5) gm/dL Hct (39.0-53.0) % MCV (80.0-100.0) fL MCH (25.0-35.0) pg MCHC (31.0-37.0) g/dL RDW (11.5-15.5) % Plt Count (150-450) k/uL Neutrophils % % Lymphocytes % % Monocytes % % Eosinophils % % Basophils % % Neutrophils # (1.3-7.7) k/uL Lymphocytes # (1.0-4.8) k/uL Monocytes # (0-1.0) k/uL Eosinophils # (0-0.7) k/uL Basophils # (0-0.2) k/uL PT 9.4 (9.0-12.0) sec INR 0.9 (<1.2) APTT 21.0 L (22.0-30.0) sec Sodium (137-145) mmol/L Potassium (3.5-5.1) mmol/L Chloride (98-107) mmol/L Carbon Dioxide (22-30) mmol/L Anion Gap mmol/L BUN (9-20) mg/dL Creatinine (0.66-1.25) mg/dL Est GFR (CKD-EPI)AfAm (>60 ml/min/1.73 sqM) Est GFR (CKD-EPI)NonAf (>60 ml/min/1.73 sqM) Glucose (74-99) mg/dL POC Glucose (mg/dL) 230 H (75-99) mg/dL POC Glu Assorter ID Rossy Leal Calcium (8.4-10.2) mg/dL Total Bilirubin (0.2-1.3) mg/dL AST (17-59) U/L ALT (4-49) U/L Alkaline Phosphatase (38-126) U/L Total Protein (6.3-8.2) g/dL Albumin (3.5-5.0) g/dL Amylase (30-110) U/L Lipase (23-300) U/L Urine Color Light Yellow Urine Appearance Clear (Clear) Urine pH 5.0 (5.0-8.0) Ur Specific [place] 1.033 (1.001-1.035) Urine Protein Negative (Negative) Urine Glucose (UA) 4+ H (Negative) Urine Ketones Negative (Negative) Urine Blood Negative (Negative) Urine Nitrite Negative (Negative) Urine Bilirubin Negative (Negative) Urine Urobilinogen <2.0 (<2.0) mg/dL Ur Leukocyte Esterase Negative (Negative) Acetone, Qual (Negative) Disposition Clinical Impression: Abdominal pain, Hyperglycemia due to type 2 diabetes mellitus Disposition: HOME SELF-CARE Condition: Stable Instructions (If sedation given, give patient instructions): Abdominal Pain (ED) Additional Instructions: Please return to the Emergency Department if symptoms worsen or any other concerns. Follow-up with PCP on Monday as discussed. Is patient prescribed a controlled substance at d/c from ED?: No Referrals: Trav Muniz MD [Primary Care Provider] - 1-2 days
[2019-07-20 15:30] LABS: Basophils % (A) 1 %; Eosinophils # (A) 0.2 k/uL (0-0.7); Eosinophils % (A) 3 %; HCT 40.7 % (39.0-53.0); HGB 13.8 gm/dL (13.0-17.5); Lymphocytes # (A) 1.5 k/uL (1.0-4.8); Lymphocytes % (A) 22 %; MCH 28.7 pg (25.0-35.0); MCHC 33.9 g/dL (31.0-37.0); MCV 84.6 fL (80.0-100.0); Mean Platelet Volume 7.3; Monocytes # (A) 0.4 k/uL (0-1.0); Monocytes % (A) 6 %; Neutrophils # (A) 4.4 k/uL (1.3-7.7); Neutrophils % (A) 66 %; Platelet Count 294 k/uL (150-450); RBC 4.81 m/uL (4.30-5.90); RDW 13.6 % (11.5-15.5); WBC 6.7 k/uL (3.8-10.6)
[2019-07-20 15:35] LABS: Appearance,Urine Clear (Clear); Bilirubin,Urine Negative (Negative); Blood,Urine Negative (Negative); Color,Urine Light Yellow; Glucose,Urine (UA) 4+ (Negative); Ketones,Urine Negative (Negative); Leukocyte Esterase,Urine Negative (Negative); Nitrite,Urine Negative (Negative); Protein,Urine Negative (Negative); Specific Gravity,Urine 1.033 (1.001-1.035); Urobilinogen,Urine <2.0 mg/dL (<2.0)
--- NOTE | 2019-07-20 15:38 | XR ---
EXAMINATION TYPE: XR KUB DATE OF EXAM: 07/20/2019 COMPARISON: 08/13/2017 HISTORY: Right flank pain TECHNIQUE: 2 views upright FINDINGS: Bowel gas pattern is normal. There is no sign of intestinal obstruction or pneumoperitoneum . Fecal pattern is normal. There is no sign of a mass. There is some pleural thickening on the left a nd right lateral chest wall. There is multilevel lumbar spine fusion surgery. There are clips from ch olecystectomy. IMPRESSION: Nonacute abdomen. No adverse change.
[2019-07-20 15:42] LABS: ALT 50 U/L (4-49); AST 47 U/L (17-59); African American GFR (CKD) >90 (>60 ml/min/1.73 sqM); Albumin 4.4 g/dL (3.5-5.0); Alkaline Phosphatase 138 U/L (38-126); Amylase 53 U/L (30-110); Anion Gap 13 mmol/L; Blood Urea Nitrogen 12 mg/dL (9-20); Calcium 9.8 mg/dL (8.4-10.2); Carbon Dioxide 21 mmol/L (22-30); Chloride 102 mmol/L (98-107); Glucose 320 mg/dL (74-99); Non-African American GFR(CKD) >90 (>60 ml/min/1.73 sqM); Potassium 4.4 mmol/L (3.5-5.1); Sodium 136 mmol/L (137-145); Total Bilirubin 0.5 mg/dL (0.2-1.3); Total Protein 7.4 g/dL (6.3-8.2)
[2019-07-20 16:02] LABS: INR 0.9 (<1.2); Prothrombin Time 9.4 sec (9.0-12.0)
[2019-07-20 16:21] VITALS: RESP 18; TEMP 97.8
[2019-07-20] MEDS ORDERED: HYDROmorphone 0.5 MG/0.5 ML SYRINGE IVP STA (16:42)
[2019-07-20 17:29] VITALS: BP 140/100; PULSE 110
[2019-07-20 17:29] LABS: Glucose,Whole Blood 230 mg/dL (75-99)
== END 2019-07-20 17:38 | disposition home or self-care (01) ==
LOC: EC 13:55
DX: E11.65 Type 2 diabetes mellitus with hyperglycemia (principal); K21.9 Gastro-esophageal reflux disease without esophagitis; I10 Essential (primary) hypertension; I25.2 Old myocardial infarction; G47.30 Sleep apnea, unspecified; Z99.89 Dependence on other enabling machines and devices; E66.9 Obesity, unspecified; Z68.41 Body mass index [BMI] 40.0-44.9, adult; Z87.442 Personal history of urinary calculi; Z86.14 Personal history of Methicillin resistant Staphylococcus aureus infection; Z90.49 Acquired absence of other specified parts of digestive tract; Z95.818 Presence of other cardiac implants and grafts; Z79.84 Long term (current) use of oral hypoglycemic drugs; Z79.899 Other long term (current) drug therapy; Z88.1 Allergy status to other antibiotic agents; Z88.6 Allergy status to analgesic agent; Z88.5 Allergy status to narcotic agent; Z88.8 Allergy status to other drugs, medicaments and biological substances
CPT/HCPCS: 36415; 80053; 82150; 82009; 83690; 85025; 85610; 85730; 81003; 74018; 99284; 96374; 96375; 96376; 96361 ×2; J2405; J1170 ×2

== ENCOUNTER 2019-07-22 14:47 | Observation (INO) | payer OTHER ==
[2019-07-22] MEDS ORDERED: SODIUM CHLORIDE 0.9% 500 ML 500 ML IV STA (15:31)
--- NOTE | 2019-07-22 15:35 | ED ---
General Adult HPI - General Chief complaint: Recheck/Abnormal Lab/Rx Stated complaint: blood sugar level high Time Seen by Provider: 07/22/19 15:05 Source: patient, RN notes reviewed, old records reviewed Mode of arrival: ambulatory Limitations: no limitations - History of Present Illness Initial comments: This is a 53-year-old male who presents emergency department with past medical history significant for diabetes. Patient states she was recently started on insulin. Patient states he was in on Monday because his glucose was elevated. Patient states he also is having some near syncopal episodes. Patient states today he had a near syncopal episode again and he states if he didn't sit down he would've passed out. Patient also is noted that he feels warm but has not taken his temperature. Patient denies any cough. Patient denies shortness of breath or difficulty breathing. Patient denies any chest pain or palpitations. Patient denies any headache patient denies numbness weakness. Patient does complain of some right flank pain. Patient states she does have history of UTIs and kidney stones but he has not had a kidney stone in years. Patient denies any anterior abdominal pain. Patient denies any vomiting or diarrhea. Patient denies any skin lesions or rashes. - Related Data Home Medications Medication Instructions Recorded Confirmed Omeprazole [PriLOSEC] 20 mg PO DAILY PRN 12/11/17 07/22/19 metFORMIN HCL [Glucophage] 1,000 mg PO BID 04/24/18 07/22/19 Diclofenac Sodium [Voltaren] 75 mg PO BID 10/22/18 07/22/19 HYDROcodone/APAP 10-325MG [[place] 1 tab PO QID PRN 10/22/18 07/22/19 10-325] Carvedilol [Coreg] 12.5 mg PO BID 07/22/19 07/22/19 Hydrochlorothiazide 25 mg PO BID 07/22/19 07/22/19 Insulin Glargine,Hum.rec.anlog 15 unit SQ HS 07/22/19 07/22/19 [Basaglar Kwikpen U-100] glipiZIDE XL [Glucotrol Xl] 5 mg PO DAILY 07/22/19 07/22/19 Allergies Allergy/AdvReac Type Severity Reaction Status Date / Time doxycycline Allergy Swelling Verified 07/22/19 16:30 ketorolac tromethamine Allergy Rash/Hives Verified 07/22/19 16:30 [From Toradol] morphine Allergy Rash/Hives Verified 07/22/19 16:30 metoclopramide HCl AdvReac Dystonic Verified 07/22/19 16:30 [From Reglan] Reaction prochlorperazine edisylate AdvReac Dystonic Verified 07/22/19 16:30 [From Compazine] Reaction prochlorperazine maleate AdvReac Dystonic Verified 07/22/19 16:30 [From Compazine] Reaction Review of Systems ROS Statement: Those systems with pertinent positive or pertinent negative responses have been documented in the HPI. ROS Other: All systems not noted in ROS Statement are negative. Past Medical History Past Medical History: Asthma, Chest Pain / Angina, Diabetes Mellitus, GERD/Reflux, Hyperlipidemia, Hypertension, Myocardial Infarction ([place]), Mitral Valve Prolapse (MVP), Pulmonary Embolus (PE), Sleep Apnea/CPAP/BIPAP Additional Past Medical History / Comment(s): Obesity, chronic asthmatic bronchitis, previous history of pulmonary embolism, objective sleep apnea, diabetes mellitus, hypertension, hyperlipidemia, previous history of myocardial infarction with underlying coronary artery disease, renal cysts, chronic back pain secondary to herniated lumbar disc disease with symptoms of sciatica, history of right lower extremity fracture at the age of 13, history of C. diff colitis approximately 4 years ago, history of bleeding peptic ulcer, nephrolithiasis, previous history of UTI and secondary sepsis. Last Myocardial Infarction Date:: 2011 History of Any Multi-Drug Resistant Organisms: MRSA Date of last positivie culture/infection: 2015 MDRO Source:: left axilla Past Surgical History: Appendectomy, Back Surgery, Cholecystectomy, Heart C atheterization, Hernia Repair Additional Past Surgical History / Comment(s): 2008 back surgery with decompression fusion at [facility], 2011, 2016 cardiac cath, multiple ESWL/ureteral stents/ double J catheters, L inquinal hernia repair, PICC line for ABX for urosepsis-since removed., Hx of c-diff. Past Anesthesia/Blood Transfusion Reactions: No Reported Reaction Past Psychological History: No Psychological Hx Reported Smoking Status: Never smoker Past Alcohol Use History: None Reported Past Drug Use History: None Reported - Past Family History Father Family Medical History: Chest Pain / Angina Additional Family Medical History / Comment(s): "lung problems" Mother Family Medical History: Cancer, Chest Pain / Angina, Congestive Heart Failure (CHF), Osteoarthritis (OA), Thyroid Disorder General Exam - General Exam Comments Initial Comments: GENERAL: Patient is well-developed and well-nourished. Patient is nontoxic and well- hydrated and is in mild distress. ENT: Neck is soft and supple. No significant lymphadenopathy is noted. Oropharynx is clear. Moist mucous membranes. Neck has full range of motion without eliciting any pain. EYES: The sclera were anicteric and conjunctiva were pink and moist. Extraocular movements were intact and pupils were equal round and reactive to light. Eyelids were unremarkable. PULMONARY: Unlabored respirations. Good breath sounds bilaterally. No audible rales rhonchi or wheezing was noted. CARDIOVASCULAR: Patient is tachycardic. ABDOMEN: Soft and nontender with normal bowel sounds. SKIN: Skin is clear with no lesions or rashes and otherwise unremarkable. NEUROLOGIC: Patient is alert and oriented x3. Cranial nerves II through XII are grossly intact. Motor and sensory are also intact. Normal speech, volume and content. Symmetrical smile. MUSCULOSKELETAL: Normal extremities with adequate strength and full range of motion. No lower extremity swelling or edema. No calf tenderness. LYMPHATICS: No significant lymphadenopathy is noted PSYCHIATRIC: Normal psychiatric evaluation. Limitations: no limitations Course Vital Signs 07/22/19 07/22/19 15:06 16:05 Temperature 99.5 F 99.2 F Pulse Rate 127 H Pulse Rate [ 129 H Sitting] Pulse Rate [ 135 H Standing] Pulse Rate [ 126 H Supine] Respiratory 20 20 Rate Blood Pressure 177/101 Blood Pressure 161/114 [Sitting] Blood Pressure 174/100 [Standing] Blood Pressure 153/106 [Supine] O2 Sat by Pulse 96 95 Oximetry Medical Decision Making - Medical Decision Making EKG shows sinus tachycardia at 127 bpm SC interval is 146 dresses 104 QT interval 412 QTC is 598. Patient has no ST segment elevation or depression Patient was given a liter of fluid but he still felt lightheaded. Patient also was given insulin in the emergency department. I [facility] the [facility] agreed to admit the patient admitted the patient I wrote admitting orders. - Lab Data Result diagrams: 07/22/19 15:30 07/22/19 15:30 Lab Results 07/22/19 07/22/19 07/22/19 Range/Units 15:29 15:30 15:30 WBC 7.7 (3.8-10.6) k/uL RBC 5.08 (4.30-5.90) m/uL Hgb 14.1 (13.0-17.5) gm/dL Hct 43.5 (39.0-53.0) % MCV 85.6 (80.0-100.0) fL MCH 27.7 (25.0-35.0) pg MCHC 32.3 (31.0-37.0) g/dL RDW 13.8 (11.5-15.5) % Plt Count 303 (150-450) k/uL Neutrophils % 70 % Lymphocytes % 19 % Monocytes % 5 % Eosinophils % 3 % Basophils % 1 % Neutrophils # 5.4 (1.3-7.7) k/uL Lymphocytes # 1.4 (1.0-4.8) k/uL Monocytes # 0.4 (0-1.0) k/uL Eosinophils # 0.2 (0-0.7) k/uL Basophils # 0.1 (0-0.2) k/uL Sodium 134 L (137-145) mmol/L Potassium 4.6 (3.5-5.1) mmol/L Chloride 101 (98-107) mmol/L Carbon Dioxide 19 L (22-30) mmol/L Anion Gap 14 mmol/L BUN 16 (9-20) mg/dL Creatinine 0.88 (0.66-1.25) mg/dL Est GFR (CKD-EPI)AfAm >90 (>60 ml/min/1.73 sqM) Est GFR (CKD-EPI)NonAf >90 (>60 ml/min/1.73 sqM) Glucose 414 H (74-99) mg/dL POC Glucose (mg/dL) 403 H (75-99) mg/dL POC Glu Private Equity Associate ID Plasma Lactic Acid Edd (0.7-2.0) mmol/L Calcium 9.7 (8.4-10.2) mg/dL Total Bilirubin 0.4 (0.2-1.3) mg/dL AST 48 (17-59) U/L ALT 39 (4-49) U/L Alkaline Phosphatase 159 H (38-126) U/L Troponin I (0.000-0.034) ng/mL Total Protein 7.5 (6.3-8.2) g/dL Albumin 4.4 (3.5-5.0) g/dL Amylase 74 (30-110) U/L Lipase 325 H (23-300) U/L Urine Color Urine Appearance (Clear) Urine pH (5.0-8.0) Ur Specific [place] (1.001-1.035) Urine Protein (Negative) Urine Glucose (UA) (Negative) Urine Ketones (Negative) Urine Blood (Negative) Urine Nitrite (Negative) Urine Bilirubin (Negative) Urine Urobilinogen (<2.0) mg/dL Ur Leukocyte Esterase (Negative) Influenza Type A RNA (Not Detectd) Influenza Type B (PCR) (Not Detectd) 07/22/19 07/22/19 07/22/19 Range/Units 15:30 15:30 15:30 WBC (3.8-10.6) k/uL RBC (4.30-5.90) m/uL Hgb (13.0-17.5) gm/dL Hct (39.0-53.0) % MCV (80.0-100.0) fL MCH (25.0-35.0) pg MCHC (31.0-37.0) g/dL RDW (11.5-15.5) % Plt Count (150-450) k/uL Neutrophils % % Lymphocytes % % Monocytes % % Eosinophils % % Basophils % % Neutrophils # (1.3-7.7) k/uL Lymphocytes # (1.0-4.8) k/uL Monocytes # (0-1.0) k/uL Eosinophils # (0-0.7) k/uL Basophils # (0-0.2) k/uL Sodium (137-145) mmol/L Potassium (3.5-5.1) mmol/L Chloride (98-107) mmol/L Carbon Dioxide (22-30) mmol/L Anion Gap mmol/L BUN (9-20) mg/dL Creatinine (0.66-1.25) mg/dL Est GFR (CKD-EPI)AfAm (>60 ml/min/1.73 sqM) Est GFR (CKD-EPI)NonAf (>60 ml/min/1.73 sqM) Glucose (74-99) mg/dL POC Glucose (mg/dL) (75-99) mg/dL POC Glu Private Equity Associate ID Plasma Lactic Acid Edd 3.6 H* (0.7-2.0) mmol/L Calcium (8.4-10.2) mg/dL Total Bilirubin (0.2-1.3) mg/dL AST (17-59) U/L ALT (4-49) U/L Alkaline Phosphatase (38-126) U/L Troponin I (0.000-0.034) ng/mL Total Protein (6.3-8.2) g/dL Albumin (3.5-5.0) g/dL Amylase (30-110) U/L Lipase (23-300) U/L Urine Color Light Yellow Urine Appearance Clear (Clear) Urine pH 5.0 (5.0-8.0) Ur Specific [place] 1.029 (1.001-1.035) Urine Protein Negative (Negative) Urine Glucose (UA) 4+ H (Negative) Urine Ketones Negative (Negative) Urine Blood Negative (Negative) Urine Nitrite Negative (Negative) Urine Bilirubin Negative (Negative) Urine Urobilinogen <2.0 (<2.0) mg/dL Ur Leukocyte Esterase Negative (Negative) Influenza Type A RNA Not Detected (Not Detectd) Influenza Type B (PCR) Not Detected (Not Detectd) 07/22/19 Range/Units 15:30 WBC (3.8-10.6) k/uL RBC (4.30-5.90) m/uL Hgb (13.0-17.5) gm/dL Hct (39.0-53.0) % MCV (80.0-100.0) fL MCH (25.0-35.0) pg MCHC (31.0-37.0) g/dL RDW (11.5-15.5) % Plt Count (150-450) k/uL Neutrophils % % Lymphocytes % % Monocytes % % Eosinophils % % Basophils % % Neutrophils # (1.3-7.7) k/uL Lymphocytes # (1.0-4.8) k/uL Monocytes # (0-1.0) k/uL Eosinophils # (0-0.7) k/uL Basophils # (0-0.2) k/uL Sodium (137-145) mmol/L Potassium (3.5-5.1) mmol/L Chloride (98-107) mmol/L Carbon Dioxide (22-30) mmol/L Anion Gap mmol/L BUN (9-20) mg/dL Creatinine (0.66-1.25) mg/dL Est GFR (CKD-EPI)AfAm (>60 ml/min/1.73 sqM) Est GFR (CKD-EPI)NonAf (>60 ml/min/1.73 sqM) Glucose (74-99) mg/dL POC Glucose (mg/dL) (75-99) mg/dL POC Glu Private Equity Associate ID Plasma Lactic Acid Edd (0.7-2.0) mmol/L Calcium (8.4-10.2) mg/dL Total Bilirubin (0.2-1.3) mg/dL AST (17-59) U/L ALT (4-49) U/L Alkaline Phosphatase (38-126) U/L Troponin I <0.012 (0.000-0.034) ng/mL Total Protein (6.3-8.2) g/dL Albumin (3.5-5.0) g/dL Amylase (30-110) U/L Lipase (23-300) U/L Urine Color Urine Appearance (Clear) Urine pH (5.0-8.0) Ur Specific [place] (1.001-1.035) Urine Protein (Negative) Urine Glucose (UA) (Negative) Urine Ketones (Negative) Urine Blood (Negative) Urine Nitrite (Negative) Urine Bilirubin (Negative) Urine Urobilinogen (<2.0) mg/dL Ur Leukocyte Esterase (Negative) Influenza Type A RNA (Not Detectd) Influenza Type B (PCR) (Not Detectd) Disposition Clinical Impression: Near syncope, Hyperglycemia, Dehydration Disposition: ADMITTED IP TO THIS HOSP Referrals: Trav Muniz MD [Primary Care Provider] - 1-2 days Time of Disposition: 17:12
[2019-07-22 15:41] LABS: Glucose,Whole Blood 403 mg/dL (75-99)
[2019-07-22 16:05] LABS: Basophils # (A) 0.1 k/uL (0-0.2); Basophils % (A) 1 %; Eosinophils # (A) 0.2 k/uL (0-0.7); Eosinophils % (A) 3 %; HCT 43.5 % (39.0-53.0); HGB 14.1 gm/dL (13.0-17.5); Lymphocytes # (A) 1.4 k/uL (1.0-4.8); Lymphocytes % (A) 19 %; MCH 27.7 pg (25.0-35.0); MCHC 32.3 g/dL (31.0-37.0); MCV 85.6 fL (80.0-100.0); Monocytes # (A) 0.4 k/uL (0-1.0); Monocytes % (A) 5 %; Neutrophils # (A) 5.4 k/uL (1.3-7.7); Neutrophils % (A) 70 %; Platelet Count 303 k/uL (150-450); RBC 5.08 m/uL (4.30-5.90); RDW 13.8 % (11.5-15.5); WBC 7.7 k/uL (3.8-10.6)
[2019-07-22 16:08] LABS: Appearance,Urine Clear (Clear); Bilirubin,Urine Negative (Negative); Blood,Urine Negative (Negative); Color,Urine Light Yellow; Glucose,Urine (UA) 4+ (Negative); Ketones,Urine Negative (Negative); Leukocyte Esterase,Urine Negative (Negative); Nitrite,Urine Negative (Negative); Protein,Urine Negative (Negative); Specific Gravity,Urine 1.029 (1.001-1.035); Urobilinogen,Urine <2.0 mg/dL (<2.0)
[2019-07-22 16:16] LABS: ALT 39 U/L (4-49); AST 48 U/L (17-59); African American GFR (CKD) >90 (>60 ml/min/1.73 sqM); Albumin 4.4 g/dL (3.5-5.0); Alkaline Phosphatase 159 U/L (38-126); Amylase 74 U/L (30-110); Anion Gap 14 mmol/L; Blood Urea Nitrogen 16 mg/dL (9-20); Calcium 9.7 mg/dL (8.4-10.2); Carbon Dioxide 19 mmol/L (22-30); Chloride 101 mmol/L (98-107); Glucose 414 mg/dL (74-99); Non-African American GFR(CKD) >90 (>60 ml/min/1.73 sqM); Potassium 4.6 mmol/L (3.5-5.1); Sodium 134 mmol/L (137-145); Total Bilirubin 0.4 mg/dL (0.2-1.3); Total Protein 7.5 g/dL (6.3-8.2)
--- NOTE | 2019-07-22 16:23 | XR ---
EXAMINATION TYPE: XR chest 2V DATE OF EXAM: 07/22/2019 COMPARISON: CT January 24, 2019. CTA chest August 14, 2018 outside chest x-ray January 24, 2019 HISTORY: Right flank and chest pain. Hyperglycemia. TECHNIQUE: Frontal and lateral views of the chest are obtained. FINDINGS: Overlying EKG leads are now present. There is no focal air space opacity, pleural effusion, or pneumothorax seen. The cardiac silhouette size is stable and upper limits of normal. The osseo us structures are intact. IMPRESSION: No acute cardiopulmonary process. No significant change from prior studies.
[2019-07-22] MEDS ORDERED: INSULIN ASPART (NovoLOG) 100 UNIT/ML VIAL SQ ONE (16:59)
[2019-07-22] MEDS ORDERED: SODIUM CHLORIDE 0.9% 1,000 ML IV ONE ×2 (17:01→17:13)
[2019-07-22] MEDS ORDERED: HYDROmorphone 1 MG/ML 1 ML SYRINGE IVP STA (17:11)
[2019-07-22 19:19] LABS: Glucose,Whole Blood 197 mg/dL (75-99)
[2019-07-22] MEDS ORDERED: PANTOPRAZOLE 40 MG TABLET PO PRN (22:29)
[2019-07-22] MEDS ORDERED: ETODOLAC 400 MG TAB PO PRN (22:29)
[2019-07-22] MEDS ORDERED: INSULIN DETEMIR (LEVEMIR) 100 UNIT/ML SYR SQ SCH (22:30)
[2019-07-22] MEDS: HYDROcodone/APAP 10-325MG 1 EACH TAB PO PRN (23:00)
[2019-07-22] MEDS: metFORMIN 500 MG TAB PO SCH (23:25)
[2019-07-22 23:26] LABS: Glucose,Whole Blood 258 mg/dL (75-99)
[2019-07-22] MEDS: CARVEDILOL 12.5 MG TAB PO SCH (23:26)
[2019-07-22] MEDS: HYDROCHLOROTHIAZIDE 25 MG TAB PO SCH (23:26)
[2019-07-23] MEDS ORDERED: HYDROmorphone 1 MG/ML 1 ML SYRINGE IVP STA (01:49)
[2019-07-23] MEDS: HYDROcodone/APAP 10-325MG 1 EACH TAB PO PRN ×3 (05:08→18:55)
[2019-07-23 06:48] LABS: Basophils # (A) 0.1 k/uL (0-0.2); Basophils % (A) 1 %; Eosinophils # (A) 0.3 k/uL (0-0.7); Eosinophils % (A) 5 %; HCT 40.9 % (39.0-53.0); HGB 13.1 gm/dL (13.0-17.5); Lymphocytes # (A) 1.5 k/uL (1.0-4.8); Lymphocytes % (A) 27 %; MCH 27.9 pg (25.0-35.0); MCHC 31.9 g/dL (31.0-37.0); MCV 87.2 fL (80.0-100.0); Mean Platelet Volume 7.7; Monocytes # (A) 0.4 k/uL (0-1.0); Monocytes % (A) 6 %; Neutrophils # (A) 3.3 k/uL (1.3-7.7); Neutrophils % (A) 58 %; Platelet Count 244 k/uL (150-450); RBC 4.69 m/uL (4.30-5.90); RDW 13.8 % (11.5-15.5); WBC 5.7 k/uL (3.8-10.6)
[2019-07-23 07:04] LABS: African American GFR (CKD) >90 (>60 ml/min/1.73 sqM); Anion Gap 11 mmol/L; Blood Urea Nitrogen 14 mg/dL (9-20); Calcium 8.9 mg/dL (8.4-10.2); Carbon Dioxide 23 mmol/L (22-30); Chloride 102 mmol/L (98-107); Glucose 214 mg/dL (74-99); Non-African American GFR(CKD) >90 (>60 ml/min/1.73 sqM); Potassium 4.3 mmol/L (3.5-5.1); Sodium 136 mmol/L (137-145)
[2019-07-23] MEDS: CARVEDILOL 12.5 MG TAB PO SCH ×2 (08:27→17:27)
[2019-07-23] MEDS: metFORMIN 500 MG TAB PO SCH ×2 (08:27→20:51)
[2019-07-23] MEDS: DILTIAZEM CD 300 MG CAP.ER.24H PO SCH (08:27)
[2019-07-23] MEDS: HYDROCHLOROTHIAZIDE 25 MG TAB PO SCH ×2 (08:27→21:10)
--- NOTE | 2019-07-23 10:28 | P.HPIM ---
History of Present Illness This is a pleasant 53 years old male with past medical history of asthma, diabetes mellitus, hyperlipidemia, hypertension, mitral valve prolapse, pulmonary embolism, sleep apnea on CPAP, chronic back pain secondary to herniated lumbar disc with sciatica, peptic ulcer disease and kidney stones. Status post urological procedure about 6 years ago with his urologist Dr. Gaitan. Patient came to the hospital because he was feeling unwell, he has polyuria and polydipsia, he had 2 episodes of presyncope associated with palpitation, d izziness and sweating, one happened 3 days ago and the other one just before coming to the hospital. He called his PCP Dr. Muniz he will instructed him to come to the hospital. During both episodes he checked his sugar was elevated more than 300 and 350. On admission his sugar was elevated more than 400. Patient hemoglobin A1c was 10.4% about 3 weeks ago and his PCP Dr. garcia put him on insulin Levemir 12 units and then increase it to 15 units. Patient was able to get his diabetes medication.Patient also is diabetic on metformin 1000 twice a day, glipizide 2.5 mg twice daily, and Levemir 15 units at bedtime. Patient denies smoking, alcohol or illicit drugs The patient has been complaining of from right flank pain for the last 3 days Vitas looks stable. Labs reviewed shown unremarkable CBC and BMP, liver enzymes not elevated. High lactic acid 3.6 came back to normal at 1.8. Troponin is negative at less than 0.012. Showing glucosuria with no suspicious of infection. Influenza B negative. EKG showed sinus tachycardia at [address]-T changes. Chest x-ray: No acute process. Review of Systems CONSTITUTIONAL: No fever, no malaise, no fatigue. HEENT: No recent visual problems or hearing problems. Denied any sore throat. CARDIOVASCULAR: No orthopnea, PND, no palpitations, no syncope. PULMONARY: No shortness of breath, no cough, no hemoptysis. GASTROINTESTINAL: No diarrhea, no nausea, no vomiting, no abdominal pain. Normoactive bowel sounds. NEUROLOGICAL: No headaches, no weakness, no numbness. HEMATOLOGICAL: Denies any bleeding or petechiae. GENITOURINARY: Denies any burning micturition, frequency, or urgency. MUSCULOSKELETAL/RHEUMATOLOGICAL: Denies any joint pain, swelling, or any muscle pain. ENDOCRINE: Denies any polyuria or polydipsia. Past Medical History Past Medical History: Asthma, Chest Pain / Angina, Diabetes Mellitus, GERD/Reflux, Hyperlipidemia, Hypertension, Myocardial Infarction (IA), Mitral Valve Prolapse (MVP), Pulmonary Embolus (PE), Sleep Apnea/CPAP/BIPAP Additional Past Medical History / Comment(s): Obesity, chronic asthmatic bronchitis, previous history of pulmonary embolism, objective sleep apnea, diabetes mellitus, hypertension, hyperlipidemia, previous history of myocardial infarction with underlying coronary artery disease, renal cysts, chronic back pain secondary to herniated lumbar disc disease with symptoms of sciatica, history of right lower extremity fracture at the age of 13, history of C. diff colitis approximately 4 years ago, history of bleeding peptic ulcer, nephrolithiasis, previous history of UTI and secondary sepsis. Last Myocardial Infarction Date:: 2011 History of Any Multi-Drug Resistant Organisms: MRSA Date of last positivie culture/infection: 2015 MDRO Source:: left axilla Past Surgical History: Appendectomy, Back Surgery, Cholecystectomy, Heart Catheterization, Hernia Repair Additional Past Surgical History / Comment(s): 2007 back surgery with decompression fusion at [facility], 2011, 2016 cardiac cath, multiple ESWL/ureteral stents/ double J catheters, L inquinal hernia repair, PICC line for ABX for urosepsis-since removed., Hx of c-diff. 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 Smoking Status: Never smoker Past Alcohol Use History: None Reported Past Drug Use History: None Reported - Past Family History Father Family Medical History: Chest Pain / Angina Additional Family Medical History / Comment(s): "lung problems" Mother Family Medical History: Cancer, Chest Pain / Angina, Congestive Heart Failure (CHF), Osteoarthritis (OA), Thyroid Disorder Medications and Allergies Home Medications Medication Instructions Recorded Confirmed Type Omeprazole [PriLOSEC] 20 mg PO DAILY PRN 12/11/17 07/22/19 History metFORMIN HCL [Glucophage] 1,000 mg PO BID 04/24/18 07/22/19 History Diclofenac Sodium [Voltaren] 75 mg PO BID PRN 10/22/18 07/22/19 History HYDROcodone/APAP 10-325MG [[place] 1 tab PO QID PRN 10/22/18 07/22/19 History 10-325] Carvedilol [Coreg] 12.5 mg PO BID 07/22/19 07/22/19 History Diltiazem HCl [Diltiazem 24Hr ER] 300 mg PO DAILY 07/22/19 07/22/19 History Hydrochlorothiazide 12.5 mg PO BID 07/22/19 07/22/19 History Insulin Glargine,Hum.rec.anlog 15 unit SQ HS 07/22/19 07/22/19 History [Basaglar Kwikpen U-100] glipiZIDE XL [Glucotrol Xl] 5 mg PO DAILY 07/22/19 07/22/19 History Allergies Allergy/AdvReac Type Severity Reaction Status Date / Time doxycycline Allergy Swelling Verified 07/22/19 16:30 ketorolac tromethamine Allergy Rash/Hives Verified 07/22/19 16:30 [From Toradol] morphine Allergy Rash/Hives Verified 07/22/19 16:30 metoclopramide HCl AdvReac Dystonic Verified 07/22/19 16:30 [From Reglan] Reaction prochlorperazine edisylate AdvReac Dystonic Verified 07/22/19 16:30 [From Compazine] Reaction prochlorperazine maleate AdvReac Dystonic Verified 07/22/19 16:30 [From Compazine] Reaction Physical Exam Vitals: Vital Signs Temp Pulse Pulse Pulse Pulse Resp BP 07/23/19 04:00 93 18 07/23/19 00:00 96 22 07/22/19 20:00 102 H 22 07/22/19 19:15 98.1 F 98 21 160/99 07/22/19 17:25 118 H 20 160/99 07/22/19 16:30 108 H 20 150/97 07/22/19 16:05 99.2 F 129 H 135 H 126 H 20 07/22/19 15:06 99.5 F 127 H 20 177/101 BP BP BP Pulse Ox 07/23/19 04:00 107/79 99 07/23/19 00:00 172/109 99 07/22/19 20:00 166/109 97 07/22/19 19:15 99 07/22/19 17:25 97 07/22/19 16:30 95 01/13/20 16:05 161/114 174/100 153/106 95 07/22/19 15:06 96 Intake and Output 07/22/19 07/23/19 07/23/19 22:59 06:59 14:59 Intake Total 237 Output Total 450 Balance -213 Intake: Oral 237 Output: Urine 450 Other: Voiding Method Urinal Urinal Weight 141.521 kg -GENERAL: The patient is alert and oriented x3, not in any acute distress. Obese HEENT: Pupils are round and equally reacting to light. EOMI. No scleral icterus. No conjunctival pallor. Normocephalic, atraumatic. No pharyngeal erythema. No thyromegaly. CARDIOVASCULAR: S1 and S2 present. No murmurs, rubs, or gallops. PULMONARY: Chest is clear to auscultation, no wheezing or crackles. -ABDOMEN: Soft, nontender, nondistended, normoactive bowel sounds. No palpable organomegaly. Right costovertebral angle tenderness MUSCULOSKELETAL: No joint swelling or deformity. EXTREMITIES: No cyanosis, clubbing, or pedal edema. NEUROLOGICAL: Gross neurological examination did not reveal any focal deficits. SKIN: No rashes. No petechiae Results CBC & Chem 7: 07/23/19 06:10 07/23/19 06:10 Labs: Abnormal Lab Results - Last 24 Hours (Table) 07/22/19 07/22/19 07/22/19 Range/Units 15:29 15:30 15:30 Sodium 134 L (137-145) mmol/L Carbon Dioxide 19 L (22-30) mmol/L Creatinine (0.66-1.25) mg/dL Glucose 414 H (74-99) mg/dL POC Glucose (mg/dL) 403 H (75-99) mg/dL Plasma Lactic Acid Edd (0.7-2.0) mmol/L Alkaline Phosphatase 159 H (38-126) U/L Lipase 325 H (23-300) U/L Urine Glucose (UA) 4+ H (Negative) 07/22/19 07/22/19 07/22/19 Range/Units 15:30 19:17 23:24 Sodium (137-145) mmol/L Carbon Dioxide (22-30) mmol/L Creatinine (0.66-1.25) mg/dL Glucose (74-99) mg/dL POC Glucose (mg/dL) 197 H 258 H (75-99) mg/dL Plasma Lactic Acid Edd 3.6 H* (0.7-2.0) mmol/L Alkaline Phosphatase (38-126) U/L Lipase (23-300) U/L Urine Glucose (UA) (Negative) 07/23/19 Range/Units 06:10 Sodium 136 L (137-145) mmol/L Carbon Dioxide (22-30) mmol/L Creatinine 0.64 L (0.66-1.25) mg/dL Glucose 214 H (74-99) mg/dL POC Glucose (mg/dL) (75-99) mg/dL Plasma Lactic Acid Edd (0.7-2.0) mmol/L Alkaline Phosphatase (38-126) U/L Lipase (23-300) U/L Urine Glucose (UA) (Negative) Thrombosis Risk Factor Assmnt - Choose All That Apply Any of the Below Risk Factors Present?: Yes Each Factor Represents 1 point: Age 41-60 years Other Risk Factors: No Other congenital or acquired thrombophilia - If yes, enter type in comment: No Thrombosis Risk Factor Assessment Total Risk Factor Score: 1 Thrombosis Risk Factor Assessment Level: Low Risk Assessment and Plan Assessment: Presyncope, mostly related to dehydration. Rule out cardiology causes Dehydration Uncontrolled Diabetes mellitus with hyperglycemia right flank pain Elevated lactic acid on admission, came back to normal. Hypertension Hyperlipidemia Mitral valve prolapse History of pulmonary embolism Sleep apnea on CPAP Chronic back pain secondary to herniated lumbar disc with sciatica History of peptic ulcer disease Kidney stones Plan: This is a pleasant 53 years old female who presents with presyncope, Related mostly to dehydration and hyperglycemia cardiology consult.Continue with IV hydration. Increase his insulin. Check hemoglobin A1c. Check renal ultrasound Labs and medication were reviewed.. Continue same treatment. Continue with symptomatic treatment. Resume home medication. Monitor lytes and vitals. DVT and GI prophylaxis. Further recommendations of the clinical course of the patient DVT prophylaxis: Subcutaneous heparin GI Prophylaxis: Pepcid PT/OT: Pending Prognosis is guarded
[2019-07-23] MEDS ORDERED: INSULIN DETEMIR (LEVEMIR) 100 UNIT/ML SYR SQ ONE (11:00)
--- NOTE | 2019-07-23 11:16 | US ---
EXAMINATION TYPE: US renals and bladder DATE OF EXAM: 07/23/2019 COMPARISON: CT 05/21/2018, US 10/22/[address] 01/24/2019 CLINICAL HISTORY: History of kidney stone, right flank pain. EXAM MEASUREMENTS: Right Kidney: 11.1 x 6.1 x 6.4 cm Left Kidney: 13.1 x 5.9 x 6.1 cm Right Kidney: No hydronephrosis. Hypoechoic area upper pole measuring 3.1 cm, difficult to visualize on this exam. Possible cyst as seen on previous US Left Kidney: No hydronephrosis or masses seen Bladder: wnl Bilateral Jets seen: Yes Difficult exam due to patient body habitus and overlying bowel gas Kidneys show normal cortical medullary differentiation. Left renal cortex somewhat lobular. IMPRESSION: Cortical cyst upper pole the right kidney is not as well seen on today's exam. No hydronephrosis. Exa m is somewhat limited technically.
[2019-07-23] MEDS: HYDROmorphone 0.5 MG/0.5 ML SYRINGE IVP PRN ×3 (13:13→22:12)
[2019-07-23 13:18] LABS: Glucose,Whole Blood 174 mg/dL (75-99)
[2019-07-23] MEDS: INSULIN ASPART (NovoLOG) 100 UNIT/ML VIAL SQ SCH ×3 (13:18→20:50)
[2019-07-23] MEDS: SODIUM CHLORIDE 0.9% 1,000 ML IV SCH (13:18)
[2019-07-23 16:26] LABS: Hemoglobin A1C 11.1 % (4.0-6.0)
[2019-07-23 16:53] LABS: Glucose,Whole Blood 158 mg/dL (75-99)
[2019-07-23 19:51] LABS: Glucose,Whole Blood 184 mg/dL (75-99)
[2019-07-23] MEDS: FAMOTIDINE 20 MG TAB PO SCH (20:49)
[2019-07-23] MEDS: HEPARIN SODIUM,PORCINE 5,000 UNIT/ML 1 ML VIAL SQ SCH (20:50)
[2019-07-23] MEDS: INSULIN DETEMIR (LEVEMIR) 100 UNIT/ML SYR SQ SCH (20:51)
[2019-07-23] MEDS ORDERED: FAMOTIDINE 20 MG/2 ML VIAL IV SCH (21:00)
[2019-07-24] MEDS: SODIUM CHLORIDE 0.9% 1,000 ML IV SCH ×2 (02:19→13:27)
[2019-07-24] MEDS: HYDROmorphone 0.5 MG/0.5 ML SYRINGE IVP PRN ×2 (02:20→06:22)
[2019-07-24] MEDS: HYDROcodone/APAP 10-325MG 1 EACH TAB PO PRN ×5 (03:51→22:55)
[2019-07-24 07:01] LABS: Glucose,Whole Blood 182 mg/dL (75-99)
[2019-07-24] MEDS: INSULIN ASPART (NovoLOG) 100 UNIT/ML VIAL SQ SCH ×4 (07:45→20:31)
[2019-07-24] MEDS: HEPARIN SODIUM,PORCINE 5,000 UNIT/ML 1 ML VIAL SQ SCH ×2 (07:45→20:33)
[2019-07-24] MEDS: DILTIAZEM CD 300 MG CAP.ER.24H PO SCH (07:46)
[2019-07-24] MEDS: CARVEDILOL 12.5 MG TAB PO SCH ×2 (07:46→17:21)
[2019-07-24] MEDS: FAMOTIDINE 20 MG TAB PO SCH ×2 (07:46→20:32)
[2019-07-24] MEDS: HYDROCHLOROTHIAZIDE 25 MG TAB PO SCH ×2 (07:47→20:32)
[2019-07-24] MEDS: metFORMIN 500 MG TAB PO SCH ×2 (07:47→20:33)
--- NOTE | 2019-07-24 08:05 | P.PN ---
Subjective This is a pleasant 53 years old male with past medical history of asthma, diabetes mellitus, hyperlipidemia, hypertension, mitral valve prolapse, p ulmonary embolism, sleep apnea on CPAP, chronic back pain secondary to herniated lumbar disc with sciatica, peptic ulcer disease and kidney stones. Status post urological procedure about 6 years ago with his urologist Dr. Gaitan. Patient came to the hospital because he was feeling unwell, he has polyuria and polydipsia, he had 2 episodes of presyncope associated with palpitation, dizziness and sweating, one happened 3 days ago and the other one just before coming to the hospital. He called his PCP Dr. Bellamy he will instructed him to come to the hospital. During both episodes he checked his sugar was elevated more than 300 and 350. On admission his sugar was elevated more than 400. Patient hemoglobin A1c was 10.4% about 3 weeks ago and his PCP Dr. garcia put him on insulin Levemir 12 units and then increase it to 15 units. Patient was able to get his diabetes medication.Patient also is diabetic on metformin 1000 twice a day, glipizide 2.5 mg twice daily, and Levemir 15 units at bedtime. Patient denies smoking, alcohol or illicit drugs The patient has been complaining of from right flank pain for the last 3 days Vitas looks stable. Labs reviewed shown unremarkable CBC and BMP, liver enzymes not elevated. High lactic acid 3.6 came back to normal at 1.8. Troponin is negative at less than 0.012. Showing glucosuria with no suspicious of infection. Influenza B negative. EKG showed sinus tachycardia at [address]-T changes. Chest x-ray: No acute process. 07/24/2019 Patient feels better today, his strength is better. No more dizziness. No nausea vomiting, no change in bowel habits. No chest pain or dyspnea. This still complaining of from flank pain, although renal ultrasound was negative. Patient states that he has history of double ureter and sometimes stones that don't show up on imaging test, he said that his right flank pain is exactly the same whenever he has kidney stone. He was asking if he can see a urologist. His hemoglobin A1c is elevated to 11.1, his uncontrolled diabetes contributed to his dehydration and symptoms on presentation which is improved with therapy. We will increase his Levemir from 15 up to 23 units, patient was still in me today he was not getting his Levemir because his prescription was sent to the pharmacy. He stated that he has a follow-up appointment with Dr. bellamy sometimes next week Going to continue with normal saline at 50 mL per hour, stop IV Dilaudid and increased frequency of [place] 10 mg from every 6 to every 4 hours and patient agrees. Patient does not want NSAIDs as his possible going for spinal surgery for his back pain in 2 weeks as is telling me Possible discharge in 24-48 hrs Review of systems CONSTITUTIONAL: No fever, no malaise, no fatigue. HEENT: No recent visual problems or hearing problems. Denied any sore throat. CARDIOVASCULAR: No orthopnea, PND, no palpitations, no syncope. PULMONARY: No shortness of breath, no cough, no hemoptysis. GASTROINTESTINAL: No diarrhea, no nausea, no vomiting, no abdominal pain. Normoactive bowel sounds. NEUROLOGICAL: No headaches, no weakness, no numbness. HEMATOLOGICAL: Denies any bleeding or petechiae. GENITOURINARY: Denies any burning micturition, frequency, or urgency. MUSCULOSKELETAL/RHEUMATOLOGICAL: Denies any joint pain, swelling, or any muscle pain. ENDOCRINE: Denies any polyuria or polydipsia. Objective - Vital Signs Vital signs: Vital Signs Temp 98.1 F 07/24/19 05:38 Pulse 81 07/24/19 05:38 Resp 20 07/24/19 05:38 BP 138/86 07/24/19 05:38 Pulse Ox 97 07/24/19 05:38 Intake & Output 07/23/19 07/24/19 07/24/19 18:59 06:59 18:59 Intake Total 1620 Output Total 1825 500 Balance -205 -500 Weight 136.5 kg Intake: Intake, IV Titration 900 Amount Sodium Chloride 0.9% 1, 900 000 ml @ 75 mls/hr IV . [id number] Rx#:[id number] Oral 720 Output: Urine 1825 500 Other: Voiding Method Toilet Toilet Urinal Urinal # Voids 1 - Exam -GENERAL: The patient is alert and oriented x3, not in any acute distress. Obese HEENT: Pupils are round and equally reacting to light. EOMI. No scleral icterus. No conjunctival pallor. Normocephalic, atraumatic. No pharyngeal erythema. No thyromegaly. CARDIOVASCULAR: S1 and S2 present. No murmurs, rubs, or gallops. PULMONARY: Chest is clear to auscultation, no wheezing or crackles. -ABDOMEN: Soft, nontender, nondistended, normoactive bowel sounds. No palpable organomegaly. Mild right flank tenderness MUSCULOSKELETAL: No joint swelling or deformity. EXTREMITIES: No cyanosis, clubbing, or pedal edema. NEUROLOGICAL: Gross neurological examination did not reveal any focal deficits. SKIN: No rashes. No petechiae - Labs CBC & Chem 7: 07/23/19 06:10 07/23/19 06:10 Labs: Abnormal Lab Results - Last 24 Hours (Table) 07/23/19 07/23/19 07/23/19 Range/Units 06:10 13:17 16:51 POC Glucose (mg/dL) 174 H 158 H (75-99) mg/dL Hemoglobin A1c 11.1 H (4.0-6.0) % 07/23/19 07/24/19 Range/Units 19:50 07:00 POC Glucose (mg/dL) 184 H 182 H (75-99) mg/dL Hemoglobin A1c (4.0-6.0) % Assessment and Plan Assessment: Presyncope, mostly related to dehydration. Improved with hydration Dehydration, improving Uncontrolled Diabetes mellitus with hyperglycemia . Increase Levemir, sugar better controlled right flank pain, mostly renal colic Elevated lactic acid on admission, came back to normal. Hypertension Hyperlipidemia Mitral valve prolapse History of pulmonary embolism Sleep apnea on CPAP Obesity Chronic back pain secondary to herniated lumbar disc with sciatica History of peptic ulcer disease Kidney stones Plan: This is a pleasant 53 years old female who presents with presyncope, Related mostly to dehydration and hyperglycemia .Continue with IV hydration. Increase his insulin. Call urology consult, start Dilaudid, lower IV fluids to 50 mL per hour, continue with [place] every 4 hours. Labs and medication were reviewed.. Continue same treatment. Continue with symptomatic treatment. Resume home medication. Monitor lytes and vitals. DVT and GI prophylaxis. Further recommendations of the clinical course of the patient DVT prophylaxis: Subcutaneous heparin GI Prophylaxis: Pepcid PT/OT: Pending Possible discharge in 24-48 source
[2019-07-24 08:07] LABS: Basophils # (A) 0.1 k/uL (0-0.2); Basophils % (A) 1 %; Eosinophils # (A) 0.2 k/uL (0-0.7); Eosinophils % (A) 4 %; HCT 41.6 % (39.0-53.0); HGB 13.6 gm/dL (13.0-17.5); Lymphocytes # (A) 1.2 k/uL (1.0-4.8); Lymphocytes % (A) 19 %; MCH 28.2 pg (25.0-35.0); MCHC 32.7 g/dL (31.0-37.0); MCV 86.2 fL (80.0-100.0); Monocytes # (A) 0.3 k/uL (0-1.0); Monocytes % (A) 5 %; Neutrophils # (A) 4.3 k/uL (1.3-7.7); Neutrophils % (A) 70 %; Platelet Count 272 k/uL (150-450); RBC 4.83 m/uL (4.30-5.90); RDW 13.7 % (11.5-15.5); WBC 6.2 k/uL (3.8-10.6)
[2019-07-24 08:32] LABS: African American GFR (CKD) >90 (>60 ml/min/1.73 sqM); Anion Gap 13 mmol/L; Blood Urea Nitrogen 13 mg/dL (9-20); Calcium 9.3 mg/dL (8.4-10.2); Carbon Dioxide 21 mmol/L (22-30); Chloride 101 mmol/L (98-107); Glucose 170 mg/dL (74-99); Non-African American GFR(CKD) >90 (>60 ml/min/1.73 sqM); Potassium 4.2 mmol/L (3.5-5.1); Sodium 135 mmol/L (137-145)
[2019-07-24 11:36] LABS: Glucose,Whole Blood 156 mg/dL (75-99)
[2019-07-24 13:02] VITALS: BMI 41.9
--- NOTE | 2019-07-24 13:29 | P.CRDCN ---
History of Present Illness History of present illness: HISTORY OF PRESENTING ILLNESS This is a pleasant 53-year-old male past medical history significant for diabetes mellitus, hypertension, dyslipidemia, asthma, chronic back pain status post surgery and morbid obesity. He follows in the office with Dr. Arora. We have been asked to see in consultation for near syncope. States for the previous 4-5 days his blood sugars have been extremely uncontrolled. History at home have been ranging in the 400's. He has been having right flank pain, nausea, dizziness, headaches and diaphoresis. He denies chest pain, shortness of breath or palpitations. He states when he is feeling this way he eats something and his symptoms subside then he checks his sugar and it is over 400. Since arriving at the hospital in the ER yesterday he continued to feel dizzy until last evening. He id seen and examined sitting up in bed in no acute distress. DIAGNOSTICS EKG reveals sinus tachycardia heart rate 127. Telemetry tracings unremarkable for an acute arrhythmia. Chest xray negative for an acute process. Laboratory reviewed, CBC unremarkable, sodium 135, potassium 4.2, creatinine 0.61, lactic on admission 3.6 repeat 1.8, alkaline phosphate 159, lipase 325 and cardiac enzymes negative x1. Current cardiac medications include hydrochlorothiazide 12.5 mg BID and coreg 12.5 mg BID. Most recent echocardiogram obtained January 2019 reveals preserved LV systolic function with ejection fraction 60-65%. He underwent cardiac catheterization in 2017 revealing normal coronary arteries with nonobstructive CAD. Most recent stress test performed in the office August 2018 was a stress echocardiogram revealing no evidence of stress-induced ischemia. REVIEW OF SYSTEMS At the time of my exam: CONSTITUTIONAL: Denies fever or chills. CARDIOVASCULAR: Denies chest pain, shortness of breath, orthopnea, PND or palpitations. RESPIRATORY: Denies cough. GASTROINTESTINAL: Denies abdominal pain, diarrhea, constipation, nausea or vomiting. MUSCULOSKELETAL: Denies myalgias. NEUROLOGIC: Denies numbness, tingling or weakness. ENDOCRINE: Denies fatigue, weight change, polydipsia or polyurina. GENITOURINARY: Denies burning, hematuria or urgency with micturation. HEMATOLOGIC: Denies history of anemia or bleeding. PHYSICAL EXAMINATION Blood pressure 136 over heart rate 92 afebrile and maintaining oxygen saturation on room air. CONSTITUTIONAL: No apparent distress. HEENT: Head is normocephalic. Pupils are equal, round. Sclerae anicteric. Mucous membranes of the mouth are moist. No JVD. No carotid bruit. CHEST EXAMINATION: Lungs are clear to auscultation. No chest wall tenderness is noted on palpation or with deep breathing. HEART EXAMINATION: Regular rate and rhythm. S1, S2 heard. No murmurs, gallops or rub. ABDOMEN: Soft, nontender. Positive bowel sounds. EXTREMITIES: 2+ peripheral pulses, no lower extremity edema and no calf tenderness. NEUROLOGIC EXAMINATION: Patient is awake, alert and oriented x3. ASSESSMENT Near syncope secondary to dehydration Sinus tachycardia secondary to dehydration and lactic acidosis Lactic acidosis on admission, improved Diabetes mellitus, uncontrolled Right flank pain Hypertension Dyslipidemia Morbid obesity, BMI 42 PLAN Telemetry tracings are unremarkable. Heart rates have improved with hydration. Near syncope secondary to dehydration. Ongoing medical management and evaluation. Follow-up with Dr. Arora upon discharge. We will continue to follow as needed. Thank you kindly for this consultation. Nurse Practitioner note has been reviewed, I agree with a documented findings and plan of care. Patient was seen and examined. Past Medical History Past Medical History: Asthma, Chest Pain / Angina, Diabetes Mellitus, GERD/Reflux, Hyperlipidemia, Hypertension, Myocardial Infarction ([place]), Mitral Valve Prolapse (MVP), Pulmonary Embolus (PE), Sleep Apnea/CPAP/BIPAP Additional Past Medical History / Comment(s): Obesity, chronic asthmatic bronchitis, previous history of pulmonary embolism, objective sleep apnea, diabetes mellitus, hypertension, hyperlipidemia, previous history of myocardial infarction with underlying coronary artery disease, renal cysts, chronic back pain secondary to herniated lumbar disc disease with symptoms of sciatica, history of right lower extremity fracture at the age of 13, history of C. diff colitis approximately 4 years ago, history of bleeding peptic ulcer, nephrolithiasis, previous history of UTI and secondary sepsis. Last Myocardial Infarction Date:: 2011 History of Any Multi-Drug Resistant Organisms: MRSA Date of last positivie culture/infection: 2015 MDRO Source:: left axilla Past Surgical History: Appendectomy, Back Surgery, Cholecystectomy, Heart C atheterization, Hernia Repair Additional Past Surgical History / Comment(s): 2008 back surgery with decompression fusion at [facility], 2011, 2016 cardiac cath, multiple ESWL/ureteral stents/ double J catheters, L inquinal hernia repair, PICC line for ABX for urosepsis-since removed., Hx of c-diff. 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 Smoking Status: Never smoker Past Alcohol Use History: None Reported Past Drug Use History: None Reported - Past Family History Father Family Medical History: Chest Pain / Angina Additional Family Medical History / Comment(s): "lung problems" Mother Family Medical History: Cancer, Chest Pain / Angina, Congestive Heart Failure (CHF), Osteoarthritis (OA), Thyroid Disorder Medications and Allergies Home Medications Medication Instructions Recorded Confirmed Type Omeprazole [PriLOSEC] 20 mg PO DAILY PRN 12/11/17 07/22/19 History metFORMIN HCL [Glucophage] 1,000 mg PO BID 04/24/18 07/22/19 History Diclofenac Sodium [Voltaren] 75 mg PO BID PRN 10/22/18 07/22/19 History HYDROcodone/APAP 10-325MG [[place] 1 tab PO QID PRN 10/22/18 07/22/19 History 10-325] Carvedilol [Coreg] 12.5 mg PO BID 07/22/19 07/22/19 History Diltiazem HCl [Diltiazem 24Hr ER] 300 mg PO DAILY 07/22/19 07/22/19 History Hydrochlorothiazide 12.5 mg PO BID 07/22/19 07/22/19 History Insulin Glargine,Hum.rec.anlog 15 unit SQ HS 07/22/19 07/22/19 History [Basaglar Kwikpen U-100] glipiZIDE XL [Glucotrol Xl] 5 mg PO DAILY 07/22/19 07/22/19 History Allergies Allergy/AdvReac Type Severity Reaction Status Date / Time doxycycline Allergy Swelling Verified 07/22/19 16:30 ketorolac tromethamine Allergy Rash/Hives Verified 07/22/19 16:30 [From Toradol] morphine Allergy Rash/Hives Verified 07/22/19 16:30 metoclopramide HCl AdvReac Dystonic Verified 07/22/19 16:30 [From Reglan] Reaction prochlorperazine edisylate AdvReac Dystonic Verified 07/22/19 16:30 [From Compazine] Reaction prochlorperazine maleate AdvReac Dystonic Verified 07/22/19 16:30 [From Compazine] Reaction Physical Exam Vitals: Vital Signs Temp Pulse Pulse Resp BP Pulse Ox 07/24/19 11:51 98.1 F 92 17 136/89 95 07/24/19 05:38 98.1 F 81 20 138/86 97 07/23/19 20:00 98.5 F 94 20 116/65 93 L 07/23/19 15:15 97.6 F 102 H 18 127/78 98 Intake and Output 07/23/19 07/24/19 07/24/19 22:59 06:59 14:59 Output Total 500 Balance -500 Output: Urine 500 Other: Voiding Method Toilet Toilet Urinal Urinal Weight 136.5 kg 136.5 kg Results 07/24/19 07:07 07/24/19 07:07 CBC 07/24/19 Range/Units 07:07 WBC 6.2 (3.8-10.6) k/uL RBC 4.83 (4.30-5.90) m/uL Hgb 13.6 (13.0-17.5) gm/dL Hct 41.6 (39.0-53.0) % Plt Count 272 (150-450) k/uL Comprehensive Metabolic Panel 07/24/19 Range/Units 07:07 Sodium 135 L (137-145) mmol/L Potassium 4.2 (3.5-5.1) mmol/L Chloride 101 (98-107) mmol/L Carbon Dioxide 21 L (22-30) mmol/L BUN 13 (9-20) mg/dL Creatinine 0.61 L (0.66-1.25) mg/dL Glucose 170 H (74-99) mg/dL Calcium 9.3 (8.4-10.2) mg/dL Current Medications Generic Name Dose Route Start Last Admin Trade Name Freq PRN Reason Stop Dose Admin Hydrocodone Bitart/Acetaminophen 1 each 07/24/19 08:02 07/24/19 13:08 [place] 10 PO 1 each Q4HR PRN Administration Pain Carvedilol 12.5 mg 07/22/19 22:30 07/24/19 07:46 Coreg PO 12.5 mg AC-BID JOEY Administration Diltiazem HCl 300 mg 07/23/19 09:00 07/24/19 07:46 Cardizem Cd PO 300 mg DAILY JOEY Administration Etodolac 400 mg 07/22/19 22:29 [place] PO BID PRN as needed for inflammation Famotidine 20 mg 07/23/19 21:00 07/24/19 07:46 Pepcid PO 20 mg Q12HR JOEY Administration Glipizide 2.5 mg 07/23/19 09:00 07/24/19 07:46 Glucotrol PO 2.5 mg BID JOEY Administration Heparin Sodium (Porcine) 5,000 unit 07/23/19 21:00 07/24/19 07:45 Heparin SQ 5,000 unit Q12HR JOEY Administration Hydrochlorothiazide 12.5 mg 07/22/19 22:30 07/24/19 07:47 Hydrodiuril PO 12.5 mg BID JOEY Administration Sodium Chloride 1,000 mls @ 50 mls/hr 07/23/19 10:30 07/24/19 02:19 Saline 0.9% IV 75 mls/hr .Q20H JOEY Administration Insulin Aspart 0 unit 07/23/19 12:30 07/24/19 13:08 Novolog SQ 2 unit ACHS JOEY Administration Protocol Insulin Detemir 23 unit 07/23/19 21:00 07/23/19 20:51 Levemir SQ 23 unit HS JOEY Administration Metformin HCl 1,000 mg 07/22/19 22:30 07/24/19 07:47 Glucophage PO 1,000 mg BID JOEY Administration Pantoprazole Sodium 40 mg 07/22/19 22:29 Protonix PO DAILY PRN GI Upset Intake and Output 07/23/19 07/24/19 07/24/19 22:59 06:59 14:59 Output Total 500 Balance -500 Output: Urine 500 Other: Voiding Method Toilet Toilet Urinal Urinal Weight 136.5 kg 136.5 kg Patient Weight 07/25/19 06:59 Weight 136.5 kg 07/24/19 07:07 07/24/19 07:07
--- NOTE | 2019-07-24 17:01 | P.GSCN ---
History of Present Illness Consult date: 07/24/19 Reason for Consult: Right flank pain Requesting physician: Leonard E Sheet History of present illness: The patient is a 53-year-old white male well known to Dr. Gaitan. He has a history of intermittent right flank pain which was believed to be secondary to a 7 mm calculus in the lower pole of the right kidney. The patient was initially evaluated at the [facility] in December 2012 and ureteroscopy was performed on 01/05/2013. At that time the calculus appeared to be located within a calyceal diverticulum. The infundibulum was dilated but the calculus could not be well visualized through the flexible ureteroscope. Percutaneous nephrostolithotomy was recommended at that time. The patient was evaluated in [facility] in January 2013 and el ected to proceed with ESWL instead and this was performed on 02/04/13 but was unsuccessful. His pain persisted and he underwent repeat ureteroscopy in April 2013 but the infundibulum to the calyceal diverticulum could not be visualized. He ultimately saw Dr. Ad Quick at [facility], and the calculus was removed via a percutaneous approach. He is now admitted with a four-day history of right flank pain, which he states is identical to the pain which he experienced in 2012. Review of Systems - Constitutional Reports sweats - Gastrointestinal Denies nausea, Denies vomiting - Genitourinary Reports flank pain, Denies dysuria, Denies hematuria Past Medical History Past Medical History: Asthma, Chest Pain / Angina, Diabetes Mellitus, GERD/Reflux, Hyperlipidemia, Hypertension, Myocardial Infarction ([place]), Mitral Valve Prolapse (MVP), Pulmonary Embolus (PE), Sleep Apnea/CPAP/BIPAP Additional Past Medical History / Comment(s): Obesity, chronic asthmatic bronchitis, previous history of pulmonary embolism, objective sleep apnea, diabetes mellitus, hypertension, hyperlipidemia, previous history of myocardial infarction with underlying coronary artery disease, renal cysts, chronic back pain secondary to herniated lumbar disc disease with symptoms of sciatica, history of right lower extremity fracture at the age of 13, history of C. diff colitis approximately 4 years ago, history of bleeding peptic ulcer, nephrolithiasis, previous history of UTI and secondary sepsis. Last Myocardial Infarction Date:: 2011 History of Any Multi-Drug Resistant Organisms: MRSA Year Discovered:: 2016 MDRO Source:: left axilla Past Surgical History: Appendectomy, Back Surgery, Cholecystectomy, Heart Catheterization, Hernia Repair Additional Past Surgical History / Comment(s): 2008 back surgery with decompression fusion at [facility], 2011, 2017 cardiac cath, multiple ESWL/ureteral stents/ double J catheters, L inquinal hernia repair, PICC line for ABX for urosepsis-since removed., Hx of c-diff. 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 Smoking Status: Never smoker Past Alcohol Use History: None Reported Past Drug Use History: None Reported - Past Family History Father Family Medical History: Chest Pain / Angina Additional Family Medical History / Comment(s): "lung problems" Mother Family Medical History: Cancer, Chest Pain / Angina, Congestive Heart Failure (CHF), Osteoarthritis (OA), Thyroid Disorder Medications and Allergies Home Medications Medication Instructions Recorded Confirmed Type Omeprazole [PriLOSEC] 20 mg PO DAILY PRN 12/11/17 07/22/19 History metFORMIN HCL [Glucophage] 1,000 mg PO BID 04/24/18 07/22/19 History Diclofenac Sodium [Voltaren] 75 mg PO BID PRN 10/22/18 07/22/19 History HYDROcodone/APAP 10-325MG [[place] 1 tab PO QID PRN 10/22/18 07/22/19 History 10-325] Carvedilol [Coreg] 12.5 mg PO BID 07/22/19 07/22/19 History Diltiazem HCl [Diltiazem 24Hr ER] 300 mg PO DAILY 07/22/19 07/22/19 History Hydrochlorothiazide 12.5 mg PO BID 07/22/19 07/22/19 History Insulin Glargine,Hum.rec.anlog 15 unit SQ HS 07/22/19 07/22/19 History [Basaglar Kwikpen U-100] glipiZIDE XL [Glucotrol Xl] 5 mg PO DAILY 07/22/19 07/22/19 History Allergies Allergy/AdvReac Type Severity Reaction Status Date / Time doxycycline Allergy Swelling Verified 07/22/19 16:30 ketorolac tromethamine Allergy Rash/Hives Verified 07/22/19 16:30 [From Toradol] morphine Allergy Rash/Hives Verified 07/22/19 16:30 metoclopramide HCl AdvReac Dystonic Verified 07/22/19 16:30 [From Reglan] Reaction prochlorperazine edisylate AdvReac Dystonic Verified 07/22/19 16:30 [From Compazine] Reaction prochlorperazine maleate AdvReac Dystonic Verified 07/22/19 16:30 [From Compazine] Reaction Surgical - Exam Vital Signs Temp Pulse Resp BP Pulse Ox 99.5 F 127 H 20 177/101 96 07/22/19 15:06 07/22/19 15:06 07/22/19 15:06 07/22/19 15:06 07/22/19 15:06 - General well developed, well nourished, no distress - Respiratory normal respiratory effort - Abdomen Abdomen: soft, tender (Right lower quadrant tenderness to palpation), no guard ing, no rigid, no rebound - Genitourinary normal penis with no external lesions, testicles non-tender - Psychiatric oriented to time, oriented to person, oriented to place, speech is normal, memory intact Results - Labs 07/24/19 07:07 07/24/19 07:07 Abnormal Lab Results - Last 24 Hours (Table) 07/23/19 07/23/19 07/23/19 Range/Units 06:10 16:51 19:50 Sodium (137-145) mmol/L Carbon Dioxide (22-30) mmol/L Creatinine (0.66-1.25) mg/dL Glucose (74-99) mg/dL POC Glucose (mg/dL) 158 H 184 H (75-99) mg/dL Hemoglobin A1c 11.1 H (4.0-6.0) % 07/24/19 07/24/19 07/24/19 Range/Units 07:00 07:07 11:30 Sodium 135 L (137-145) mmol/L Carbon Dioxide 21 L (22-30) mmol/L Creatinine 0.61 L (0.66-1.25) mg/dL Glucose 170 H (74-99) mg/dL POC Glucose (mg/dL) 182 H 156 H (75-99) mg/dL Hemoglobin A1c (4.0-6.0) % Diabetes panel 07/23/19 07/24/19 Range/Units 06:10 07:07 Sodium 135 L (137-145) mmol/L Potassium 4.2 (3.5-5.1) mmol/L Chloride 101 (98-107) mmol/L Carbon Dioxide 21 L (22-30) mmol/L BUN 13 (9-20) mg/dL Creatinine 0.61 L (0.66-1.25) mg/dL Glucose 170 H (74-99) mg/dL Hemoglobin A1c 11.1 H (4.0-6.0) % Calcium 9.3 (8.4-10.2) mg/dL Calcium panel 07/24/19 Range/Units 07:07 Calcium 9.3 (8.4-10.2) mg/dL Pituitary panel 07/24/19 Range/Units 07:07 Sodium 135 L (137-145) mmol/L Potassium 4.2 (3.5-5.1) mmol/L Chloride 101 (98-107) mmol/L Carbon Dioxide 21 L (22-30) mmol/L BUN 13 (9-20) mg/dL Creatinine 0.61 L (0.66-1.25) mg/dL Glucose 170 H (74-99) mg/dL Calcium 9.3 (8.4-10.2) mg/dL Adrenal panel 07/24/19 Range/Units 07:07 Sodium 135 L (137-145) mmol/L Potassium 4.2 (3.5-5.1) mmol/L Chloride 101 (98-107) mmol/L Carbon Dioxide 21 L (22-30) mmol/L BUN 13 (9-20) mg/dL Creatinine 0.61 L (0.66-1.25) mg/dL Glucose 170 H (74-99) mg/dL Calcium 9.3 (8.4-10.2) mg/dL - Imaging US - kidney/bladder: report reviewed Assessment and Plan (1) Renal colic on right side Current Visit: Yes Status: Acute Code(s): N23 - UNSPECIFIED RENAL COLIC SNOMED Code(s): 1750330 Plan: Given the patient's history and the fact that his current symptoms are identical to those in 2013, a CT scan of the abdomen and pelvis has been ordered for further evaluation as this wound healed considerably more information than the renal ultrasound, which was unremarkable. Time with Patient: Greater than 30
[2019-07-24 17:15] LABS: Glucose,Whole Blood 131 mg/dL (75-99)
--- NOTE | 2019-07-24 18:19 | CT ---
EXAMINATION TYPE: CT abdomen pelvis wo con DATE OF EXAM: 07/24/2019 COMPARISON: 05/21/2018 HISTORY: right flank pain CT DLP: 2277.1 mGycm Automated exposure control for dose reduction was used. Multiple axial sections were obtained from the diaphragm to the floor the pelvis with no contrast. Lung bases are clear. There is no pleural effusion. Heart size is normal. There is low attenuation throughout the liver related to fatty infiltration. Spleen is intact. Stomac h is intact. There is no pancreatic mass. There are clips from cholecystectomy. The bile ducts are no t dilated. There is no adrenal mass. Kidneys show normal size and contour. There is 3 cm cortical cyst anterior right kidney. Ureters are not dilated. There is no hydronephrosis. There is no retroperitoneal adenop athy. Bladder distends smoothly. There is no inguinal hernia. There is no free fluid in the pelvis. There is no mesenteric edema. There is no ascites or free air. There is no evidence of a bowel obstru ction. Appendix is not seen. There is no sign of thickened appendix. There is posterior fusion surgery in the lower lumbar spine from L3 to S1. Vertebra have normal align ment. Bony pelvis is intact. IMPRESSION: Negative CT scan abdomen and pelvis. Fatty infiltration of the liver. No adverse change compared to o ld exam.
[2019-07-24 19:59] LABS: Glucose,Whole Blood 188 mg/dL (75-99)
[2019-07-24] MEDS: INSULIN DETEMIR (LEVEMIR) 100 UNIT/ML SYR SQ SCH (20:31)
[2019-07-25] MEDS: HYDROcodone/APAP 10-325MG 1 EACH TAB PO PRN ×3 (03:10→12:47)
[2019-07-25 07:05] LABS: Glucose,Whole Blood 159 mg/dL (75-99)
[2019-07-25] MEDS: INSULIN ASPART (NovoLOG) 100 UNIT/ML VIAL SQ SCH ×2 (07:57→12:48)
[2019-07-25] MEDS: CARVEDILOL 12.5 MG TAB PO SCH (07:59)
[2019-07-25] MEDS: HEPARIN SODIUM,PORCINE 5,000 UNIT/ML 1 ML VIAL SQ SCH (09:14)
--- NOTE | 2019-07-25 09:50 | P.PN ---
Progress Note - Text Progress Note Date: 07/25/19 Mr. Morales states that his symptoms are unchanged. I reviewed his CT scan, which shows evidence of a 3 cm right simple renal cyst, but no evidence of urolithiasis or hydronephrosis. A renal cyst would not be expected to cause symptoms, particularly acute symptoms. Urinalysis is negative, and I do not have a reason to suspect that his symptoms are urologic in origin. Please notify me if I can be of any further assistance.
[2019-07-25] MEDS: HYDROCHLOROTHIAZIDE 25 MG TAB PO SCH (10:36)
[2019-07-25] MEDS: metFORMIN 500 MG TAB PO SCH (10:36)
[2019-07-25] MEDS: DILTIAZEM CD 300 MG CAP.ER.24H PO SCH (10:36)
[2019-07-25] MEDS: FAMOTIDINE 20 MG TAB PO SCH (10:36)
[2019-07-25] MEDS: SODIUM CHLORIDE 0.9% 1,000 ML IV SCH (10:39)
[2019-07-25 11:16] LABS: Glucose,Whole Blood 200 mg/dL (75-99)
[2019-07-25 11:35] VITALS: BP 131/82; PULSE 97; RESP 17; TEMP 98.6
--- NOTE | 2019-07-25 12:30 | P.DS ---
Providers Date of admission: 07/22/19 17:13 Attending physician: Víctor Cook Consults: 07/23/19 10:08 Consult Physician Urgent Consulting Provider: Sunny Buckley Consult Reason/Comments: pre-syncope Do you want consulting provider notified?: Yes 07/24/19 08:03 Consult Physician Urgent Consulting Provider: Rickey Ac Consult Reason/Comments: right flank pain similar to his kid stone pain Do you want consulting provider notified?: Yes Primary care physician: Trav Bellamy [facility] Course: Diagnoses: Presyncope, mostly related to dehydration. Improved with hydration Dehydration, improving Uncontrolled Diabetes mellitus with hyperglycemia . Increase Levemir, sugar better controlled right flank pain, mostly renal colic, as it is exactly to his previous renal pain as per patient Elevated lactic acid on admission, came back to normal. 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 Status post urological procedure about 6 years ago with his urologist Dr. Gaitan. Patient came to the hospital because he was feeling unwell, he has polyuria and polydipsia, he had 2 episodes of presyncope associated with palpitation, dizziness and sweating, one happened 3 days ago and the other one just before coming to the hospital. He called his PCP Dr. Bellamy he will instructed him to come to the hospital. During both episodes he checked his sugar was elevated more than 300 and 350. On admission his sugar was elevated more than 400. Patient hemoglobin A1c was 10.4% about 3 weeks ago and his PCP Dr. bellamy put him on insulin Levemir 12 units and then increase it to 15 units. Patient was unable to get his diabetes medication because prescription was sent to the pharmacy.Patient also is diabetic on metformin 1000 twice a day, glipizide 2.5 mg twice daily, and Levemir 15 units at bedtime. Patient on admission was treated with IV fluids, also his Levemir was increased to 23 units, patient hydration status improved and his symptoms of dizziness and others as above all improved. His sugar is running 130s to 180s. Patient was discharge on Levemir 23 units at bedtime because his blood sugar medication. Patient was instructed to keep checking his sugar 4 times a day and he agrees The patient has been complaining of from right flank pain for the last 4 days, patient states is exactly similar to his renal colic. Patient has been evaluated by urologist. Ultrasound and CT of the abdomen were unremarkable. His pain was stable and is not getting worse, possibly related to renal colic, could be related to passage of recent stone, could be musculoskeletal. I offered for the patient to keep him in the hospital and monitor him however he insists on being discharged and follow-up with his PCP in one week. Patient states he already has an appointment with his PCP with the information at his home. Besides his pain is not affecting his mobility as he is Up and go test is normal. No other functional abnormality noted with the patient. Patient was instructed if he develop worsening pain, worsening symptoms or new symptoms to call 911 on come to emergency room immediately and he agrees. Symptoms are explained to him including but not limited to nausea vomiting, change in bowel habits, worsening abdominal pain, fever, blood in stool or anywhere else. Patient denies other symptoms. He denies chest pain or dyspnea. No change in urine or bowel habits. No nausea vomiting. No fever. Patient was cleared for discharge by cardiology and urology services Problems and management plan were discussed with the patient and he verbalized understanding and acceptance Patient was found stable and can be discharged home however he needs follow-up as an outpatient. Patient was instructed to follow up with PCP within one week and patient agrees Gen: patient is a AAOx3, no distress CVS: S1-S2, RRR, no murmur Lungs: B/L CTA, no wheezing Abdomen: soft, no distention, no tenderness, positive bowel sounds Extremity: no leg edema or induration Time spent more than 35 minutes Plan - Discharge Summary Discharge Rx Participant: No New Discharge Prescriptions: New Insulin Detemir (Levemir) [Levemir] 23 unit SQ HS #1 syr Continue Omeprazole [PriLOSEC] 20 mg PO DAILY PRN PRN Reason: Gi Upset metFORMIN HCL [Glucophage] 1,000 mg PO BID HYDROcodone/APAP 10-325MG [[place] 10-325] 1 tab PO QID PRN PRN Reason: Pain Hydrochlorothiazide 12.5 mg PO BID glipiZIDE XL [Glucotrol XL] 5 mg PO DAILY Carvedilol [Coreg] 12.5 mg PO BID Diltiazem HCl [Diltiazem 24Hr ER] 300 mg PO DAILY Discontinued Diclofenac Sodium [Voltaren] 75 mg PO BID PRN PRN Reason: as needed for inflammation Insulin Glargine,Hum.rec.anlog [Basaglar Kwikpen U-100] 15 unit SQ HS Discharge Medication List Omeprazole [PriLOSEC] 20 mg PO DAILY PRN 12/11/17 [History] metFORMIN HCL [Glucophage] 1,000 mg PO BID 04/24/18 [History] HYDROcodone/APAP 10-325MG [[place] 10-325] 1 tab PO QID PRN 10/22/18 [History] Carvedilol [Coreg] 12.5 mg PO BID 07/22/19 [History] Diltiazem HCl [Diltiazem 24Hr ER] 300 mg PO DAILY 07/22/19 [History] Hydrochlorothiazide 12.5 mg PO BID 07/22/19 [History] glipiZIDE XL [Glucotrol XL] 5 mg PO DAILY 07/22/19 [History] Insulin Detemir (Levemir) [Levemir] 23 unit SQ HS #1 syr 07/25/19 [Rx] Follow up Appointment(s)/Referral(s): Nacho Gaitan MD [STAFF PHYSICIAN] - 08/07/19 11:00 am Miguel Arora MD [STAFF PHYSICIAN] - 08/01/19 9:45 am Trav Bellamy MD [Primary Care Provider] - 07/31/19 2:00 pm Patient Instructions/Handouts: Insulin Detemir (By injection), Dehydration (DC), Syncope (DC), Diabetic Hyperglycemia (DC) Activity/Diet/Wound Care/Special Instructions: Diabetic 18 kcal diet Activity is limited till you see your doctor Keep checking her blood sugar 4 times a day, before each meal and at bedtime. Keep it in the leg and presented to Check her sugar and if the level of less than 70 or more than 400 come to emergency room Discharge Disposition: HOME SELF-CARE
== END 2019-07-25 15:30 | disposition home or self-care (01) ==
LOC: EC 14:47 → 3SCARD 17:13 → INTOOBSV 17:13 → 3SCARD 23:11 → 5NMEDONC 07-23 14:11
PROVIDERS: ADMIT Internal Medicine; ATTEND Internal Medicine
DX: R55 Syncope and collapse (principal); E86.0 Dehydration; E87.2 Acidosis; N23 Unspecified renal colic; I10 Essential (primary) hypertension; E78.5 Hyperlipidemia, unspecified; I34.1 Nonrheumatic mitral (valve) prolapse; M54.30 Sciatica, unspecified side; I25.10 Atherosclerotic heart disease of native coronary artery without angina pectoris; G47.33 Obstructive sleep apnea (adult) (pediatric); Z99.89 Dependence on other enabling machines and devices; E66.01 Morbid (severe) obesity due to excess calories; Z68.41 Body mass index [BMI] 40.0-44.9, adult; G89.29 Other chronic pain; M54.9 Dorsalgia, unspecified; Z87.11 Personal history of peptic ulcer disease; Z87.442 Personal history of urinary calculi; I25.2 Old myocardial infarction; Z86.711 Personal history of pulmonary embolism; J45.20 Mild intermittent asthma, uncomplicated; N28.1 Cyst of kidney, acquired; J44.9 Chronic obstructive pulmonary disease, unspecified; E11.65 Type 2 diabetes mellitus with hyperglycemia; Z86.14 Personal history of Methicillin resistant Staphylococcus aureus infection; Z86.19 Personal history of other infectious and parasitic diseases; Z98.1 Arthrodesis status; M51.26 Other intervertebral disc displacement, lumbar region; Z82.49 Family history of ischemic heart disease and other diseases of the circulatory system; Z82.61 Family history of arthritis; Z83.49 Family history of other endocrine, nutritional and metabolic diseases; Z87.440 Personal history of urinary (tract) infections; Z79.4 Long term (current) use of insulin; Z79.899 Other long term (current) drug therapy; Z88.6 Allergy status to analgesic agent; Z88.1 Allergy status to other antibiotic agents; Z88.5 Allergy status to narcotic agent; Z88.8 Allergy status to other drugs, medicaments and biological substances
CPT/HCPCS: 96376 ×2; 96361 ×3; 96372; 96374; 99285; 36415; 93005; 80053; 80048 ×2; 82150; 83605; 83690; 84484; 85025 ×3; 81003; 87502; 83036; 71046; 76770; 74176; G0378 ×5; J1644; J1170 ×4

== ENCOUNTER 2019-07-28 10:51 | Emergency (ER) | payer OTHER ==
[2019-07-28 11:13] VITALS: BP 188/127; PULSE 131; RESP 18; TEMP 99.1
[2019-07-28 11:34] LABS: Glucose,Whole Blood 295 mg/dL (75-99)
[2019-07-28] MEDS ORDERED: SODIUM CHLORIDE 0.9% 1,000 ML IV ONE (11:58)
[2019-07-28] MEDS ORDERED: SODIUM CHLORIDE 0.9% 500 ML 500 ML IV ONE (11:58)
--- NOTE | 2019-07-28 12:09 | ED ---
General Adult HPI - General Chief complaint: Recheck/Abnormal Lab/Rx Stated complaint: High Blood Sugar Time Seen by Provider: 07/28/19 11:10 Source: patient, RN notes reviewed, old records reviewed Mode of arrival: ambulatory Limitations: no limitations - History of Present Illness Initial comments: This is a 53-year-old male who presents emergency Department with a past medical history significant for diabetes. Patient states he was just admitted to the hospital with a high sugar and he went home in for a couple days it was fine but today it was 350 and he started feeling sick so he decided come the emergency department. Patient denies any fever chills or cough. Patient denies any chest pain palpitations or difficulty breathing. Patient denies any abdominal pain patient denies nausea vomiting diarrhea. Patient denies headache patient denies numbness weakness. Patient denies any lightheadedness or dizziness. - Related Data Home Medications Medication Instructions Recorded Confirmed Omeprazole [PriLOSEC] 20 mg PO DAILY PRN 12/11/17 07/22/19 metFORMIN HCL [Glucophage] 1,000 mg PO BID 04/24/18 07/22/19 HYDROcodone/APAP 10-325MG [[place] 1 tab PO QID PRN 10/22/18 07/22/19 10-325] Carvedilol [Coreg] 12.5 mg PO BID 07/22/19 07/22/19 Diltiazem HCl [Diltiazem 24Hr ER] 300 mg PO DAILY 07/22/19 07/22/19 Hydrochlorothiazide 12.5 mg PO BID 07/22/19 07/22/19 glipiZIDE XL [Glucotrol XL] 5 mg PO DAILY 07/22/19 07/22/19 Previous Rx's Medication Instructions Recorded Insulin Detemir (Levemir) [Levemir] 23 unit SQ HS #1 syr 07/25/19 Allergies Allergy/AdvReac Type Severity Reaction Status Date / Time doxycycline Allergy Swelling Verified 07/28/19 11:13 ketorolac tromethamine Allergy Rash/Hives Verified 07/28/19 11:13 [From Toradol] morphine Allergy Rash/Hives Verified 07/28/19 11:13 metoclopramide HCl AdvReac Dystonic Verified 07/28/19 11:13 [From Reglan] Reaction prochlorperazine edisylate AdvReac Dystonic Verified 07/28/19 11:13 [From Compazine] Reaction prochlorperazine maleate AdvReac Dystonic Verified 07/28/19 11:13 [From Compazine] Reaction Review of Systems ROS Statement: Those systems with pertinent positive or pertinent negative responses have been documented in the HPI. ROS Other: All systems not noted in ROS Statement are negative. Past Medical History Past Medical History: Asthma, Chest Pain / Angina, Diabetes Mellitus, GERD/Reflux, Hyperlipidemia, Hypertension, Myocardial Infarction (AR), Mitral Valve Prolapse (MVP), Pulmonary Embolus (PE), Sleep Apnea/CPAP/BIPAP Additional Past Medical History / Comment(s): Obesity, chronic asthmatic bronchitis, previous history of pulmonary embolism, objective sleep apnea, diab etes mellitus, hypertension, hyperlipidemia, previous history of myocardial infarction with underlying coronary artery disease, renal cysts, chronic back pain secondary to herniated lumbar disc disease with symptoms of sciatica, history of right lower extremity fracture at the age of 13, history of C. diff colitis approximately 4 years ago, history of bleeding peptic ulcer, nephrolithiasis, previous history of UTI and secondary sepsis. Last Myocardial Infarction Date:: 2011 History of Any Multi-Drug Resistant Organisms: MRSA Date of last positivie culture/infection: 2016 MDRO Source:: left axilla Past Surgical History: Appendectomy, Back Surgery, Cholecystectomy, Heart Catheterization, Hernia Repair Additional Past Surgical History / Comment(s): 2008 back surgery with decompression fusion at [facility], 2011, 2016 cardiac cath, multiple ESWL/ureteral stents/ double J catheters, L inquinal hernia repair, PICC line for ABX for urosepsis-since removed., Hx of c-diff. Past Anesthesia/Blood Transfusion Reactions: No Reported Reaction Past Psychological History: No Psychological Hx Reported Smoking Status: Never smoker Past Alcohol Use History: None Reported Past Drug Use History: None Reported - Past Family History Father Family Medical History: Chest Pain / Angina Additional Family Medical History / Comment(s): "lung problems" Mother Family Medical History: Cancer, Chest Pain / Angina, Congestive Heart Failure (CHF), Osteoarthritis (OA), Thyroid Disorder General Exam - General Exam Comments Initial Comments: GENERAL: Patient is well-developed and well-nourished. Patient is nontoxic and well- hydrated and is in mild distress. ENT: Neck is soft and supple. No significant lymphadenopathy is noted. Oropharynx is clear. Moist mucous membranes. Neck has full range of motion without eliciting any pain. EYES: The sclera were anicteric and conjunctiva were pink and moist. Extraocular movements were intact and pupils were equal round and reactive to light. Eyelids were unremarkable. PULMONARY: Unlabored respirations. Good breath sounds bilaterally. No audible rales rhonchi or wheezing was noted. CARDIOVASCULAR: There is a regular rate and rhythm without any murmurs gallops or rubs. ABDOMEN: Soft and nontender with normal bowel sounds. SKIN: Skin is clear with no lesions or rashes and otherwise unremarkable. NEUROLOGIC: Patient is alert and oriented x3. Cranial nerves II through XII are grossly intact. Motor and sensory are also intact. Normal speech, volume and content. Symmetrical smile. MUSCULOSKELETAL: Normal extremities with adequate strength and full range of motion. No lower extremity swelling or edema. No calf tenderness. LYMPHATICS: No significant lymphadenopathy is noted PSYCHIATRIC: Normal psychiatric evaluation. Limitations: no limitations Course Vital Signs 07/28/19 11:11 Temperature 99.1 F Pulse Rate 131 H Respiratory 18 Rate Blood Pressure 188/127 O2 Sat by Pulse 98 Oximetry Medical Decision Making - Medical Decision Making EKG shows sinus tachycardia at 122 bpm WA interval 148 QRS 110 QT interval 3:30 QTC is 470. Patient's EKG shows no ST segment elevation or depression. Patient was asking for Dilaudid on multiple occasions. Initially patient did not express to me that he was having any pain whatsoever. Patient states she's been having some chronic right flank pain and is supposed to follow-up with his doctor this week. Patient also states he has [place] home which she will be taking when he gets home. Patient had no vomiting here patient denies any belly pain here. - Lab Data Result diagrams: 07/28/19 12:32 07/28/19 12:32 Lab Results 07/28/19 07/28/19 07/28/19 Range/Units 11:32 12:32 12:32 WBC 8.0 (3.8-10.6) k/uL RBC 5.02 (4.30-5.90) m/uL Hgb 14.4 (13.0-17.5) gm/dL Hct 42.4 (39.0-53.0) % MCV 84.5 (80.0-100.0) fL MCH 28.6 (25.0-35.0) pg MCHC 33.9 (31.0-37.0) g/dL RDW 13.5 (11.5-15.5) % Plt Count 282 (150-450) k/uL Neutrophils % 82 % Lymphocytes % 11 % Monocytes % 3 % Eosinophils % 1 % Basophils % 1 % Neutrophils # 6.6 (1.3-7.7) k/uL Lymphocytes # 0.9 L (1.0-4.8) k/uL Monocytes # 0.3 (0-1.0) k/uL Eosinophils # 0.1 (0-0.7) k/uL Basophils # 0.1 (0-0.2) k/uL Sodium 136 L (137-145) mmol/L Potassium 4.6 (3.5-5.1) mmol/L Chloride 104 (98-107) mmol/L Carbon Dioxide 20 L (22-30) mmol/L Anion Gap 12 mmol/L BUN 15 (9-20) mg/dL Creatinine 0.72 (0.66-1.25) mg/dL Est GFR (CKD-EPI)AfAm >90 (>60 ml/min/1.73 sqM) Est GFR (CKD-EPI)NonAf >90 (>60 ml/min/1.73 sqM) Glucose 271 H (74-99) mg/dL POC Glucose (mg/dL) 295 H (75-99) mg/dL POC Glu Assistant [employer] [facility] Plasma Lactic Acid Edd (0.7-2.0) mmol/L Calcium 9.7 (8.4-10.2) mg/dL Total Bilirubin 0.5 (0.2-1.3) mg/dL AST 68 H (17-59) U/L ALT 67 H (4-49) U/L Alkaline Phosphatase 168 H (38-126) U/L Total Protein 7.8 (6.3-8.2) g/dL Albumin 4.6 (3.5-5.0) g/dL Urine Color Urine Appearance (Clear) Urine pH (5.0-8.0) Ur Specific [place] (1.001-1.035) Urine Protein (Negative) Urine Glucose (UA) (Negative) Urine Ketones (Negative) Urine Blood (Negative) Urine Nitrite (Negative) Urine Bilirubin (Negative) Urine Urobilinogen (<2.0) mg/dL Ur Leukocyte Esterase (Negative) Acetone, Qual Negative (Negative) 07/28/19 07/28/19 07/28/19 Range/Units 12:32 14:05 Unknown WBC (3.8-10.6) k/uL RBC (4.30-5.90) m/uL Hgb (13.0-17.5) gm/dL Hct (39.0-53.0) % MCV (80.0-100.0) fL MCH (25.0-35.0) pg MCHC (31.0-37.0) g/dL RDW (11.5-15.5) % Plt Count (150-450) k/uL Neutrophils % % Lymphocytes % % Monocytes % % Eosinophils % % Basophils % % Neutrophils # (1.3-7.7) k/uL Lymphocytes # (1.0-4.8) k/uL Monocytes # (0-1.0) k/uL Eosinophils # (0-0.7) k/uL Basophils # (0-0.2) k/uL Sodium (137-145) mmol/L Potassium (3.5-5.1) mmol/L Chloride (98-107) mmol/L Carbon Dioxide (22-30) mmol/L Anion Gap mmol/L BUN (9-20) mg/dL Creatinine (0.66-1.25) mg/dL Est GFR (CKD-EPI)AfAm (>60 ml/min/1.73 sqM) Est GFR (CKD-EPI)NonAf (>60 ml/min/1.73 sqM) Glucose (74-99) mg/dL POC Glucose (mg/dL) 283 H (75-99) mg/dL POC Glu Assistant Professor [employer] ID [facility] [place] Plasma Lactic Acid Edd 2.9 H* (0.7-2.0) mmol/L Calcium (8.4-10.2) mg/dL Total Bilirubin (0.2-1.3) mg/dL AST (17-59) U/L ALT (4-49) U/L Alkaline Phosphatase (38-126) U/L Total Protein (6.3-8.2) g/dL Albumin (3.5-5.0) g/dL Urine Color Light Yellow Urine Appearance Clear (Clear) Urine pH 5.5 (5.0-8.0) Ur Specific [place] 1.026 (1.001-1.035) Urine Protein Negative (Negative) Urine Glucose (UA) 4+ H (Negative) Urine Ketones 1+ H (Negative) Urine Blood Negative (Negative) Urine Nitrite Negative (Negative) Urine Bilirubin Negative (Negative) Urine Urobilinogen <2.0 (<2.0) mg/dL Ur Leukocyte Esterase Negative (Negative) Acetone, Qual (Negative) Disposition Clinical Impression: Hyperglycemia Disposition: HOME SELF-CARE Condition: Good Instructions (If sedation given, give patient instructions): Diabetic Hyperglycemia (ED) Is patient prescribed a controlled substance at d/c from ED?: No Referrals: Trav Muniz MD [Primary Care Provider] - 1-2 days Time of Disposition: 14:19
[2019-07-28] MEDS ORDERED: INSULIN ASPART (NovoLOG) 100 UNIT/ML VIAL SQ ONE (12:46)
[2019-07-28 12:52] LABS: Basophils # (A) 0.1 k/uL (0-0.2); Basophils % (A) 1 %; Eosinophils # (A) 0.1 k/uL (0-0.7); Eosinophils % (A) 1 %; HCT 42.4 % (39.0-53.0); HGB 14.4 gm/dL (13.0-17.5); Lymphocytes # (A) 0.9 k/uL (1.0-4.8); Lymphocytes % (A) 11 %; MCH 28.6 pg (25.0-35.0); MCHC 33.9 g/dL (31.0-37.0); MCV 84.5 fL (80.0-100.0); Monocytes # (A) 0.3 k/uL (0-1.0); Monocytes % (A) 3 %; Neutrophils # (A) 6.6 k/uL (1.3-7.7); Neutrophils % (A) 82 %; Platelet Count 282 k/uL (150-450); RBC 5.02 m/uL (4.30-5.90); RDW 13.5 % (11.5-15.5)
[2019-07-28 13:03] LABS: ALT 67 U/L (4-49); AST 68 U/L (17-59); African American GFR (CKD) >90 (>60 ml/min/1.73 sqM); Albumin 4.6 g/dL (3.5-5.0); Alkaline Phosphatase 168 U/L (38-126); Anion Gap 12 mmol/L; Blood Urea Nitrogen 15 mg/dL (9-20); Calcium 9.7 mg/dL (8.4-10.2); Carbon Dioxide 20 mmol/L (22-30); Chloride 104 mmol/L (98-107); Glucose 271 mg/dL (74-99); Non-African American GFR(CKD) >90 (>60 ml/min/1.73 sqM); Potassium 4.6 mmol/L (3.5-5.1); Sodium 136 mmol/L (137-145); Total Bilirubin 0.5 mg/dL (0.2-1.3); Total Protein 7.8 g/dL (6.3-8.2)
--- NOTE | 2019-07-28 13:12 | XR ---
EXAMINATION TYPE: XR chest 2V DATE OF EXAM: 07/28/2019 HISTORY: Difficulty breathing . REFERENCE: Previous study dated 07/22/2019. FINDINGS: There is been previous cervical surgery. The lungs are clear. Pleural spaces are clear. Heart size upper limits of normal. IMPRESSION: BORDERLINE CARDIOMEGALY.
[2019-07-28 13:27] LABS: Appearance,Urine Clear (Clear); Bilirubin,Urine Negative (Negative); Blood,Urine Negative (Negative); Color,Urine Light Yellow; Glucose,Urine (UA) 4+ (Negative); Ketones,Urine 1+ (Negative); Leukocyte Esterase,Urine Negative (Negative); Nitrite,Urine Negative (Negative); PH, Urine 5.5 (5.0-8.0); Protein,Urine Negative (Negative); Specific Gravity,Urine 1.026 (1.001-1.035); Urobilinogen,Urine <2.0 mg/dL (<2.0)
[2019-07-28 14:07] LABS: Glucose,Whole Blood 283 mg/dL (75-99)
== END 2019-07-28 14:25 | disposition home or self-care (01) ==
LOC: EC 10:51
DX: E11.65 Type 2 diabetes mellitus with hyperglycemia (principal); R00.0 Tachycardia, unspecified; G89.29 Other chronic pain; R10.9 Unspecified abdominal pain; K21.9 Gastro-esophageal reflux disease without esophagitis; I10 Essential (primary) hypertension; I25.2 Old myocardial infarction; I25.119 Atherosclerotic heart disease of native coronary artery with unspecified angina pectoris; G47.33 Obstructive sleep apnea (adult) (pediatric); Z88.1 Allergy status to other antibiotic agents; Z88.5 Allergy status to narcotic agent; Z88.6 Allergy status to analgesic agent; Z88.8 Allergy status to other drugs, medicaments and biological substances; Z79.84 Long term (current) use of oral hypoglycemic drugs; Z79.891 Long term (current) use of opiate analgesic; Z79.899 Other long term (current) drug therapy; Z86.14 Personal history of Methicillin resistant Staphylococcus aureus infection; Z99.89 Dependence on other enabling machines and devices; Z98.1 Arthrodesis status
CPT/HCPCS: 36415; 71046; 80053; 81003; 82009; 83605; 85025; 93005; 96360; 99285

== ENCOUNTER 2019-08-25 15:18 | Inpatient (IN) | payer OTHER ==
[2019-08-25] MEDS ORDERED: IPRATROPIUM-ALBUTEROL 3 ML NEB INHALATION STA ×2 (16:09→17:21)
[2019-08-25] MEDS ORDERED: methylPREDNISolone SOD SUCCI 125 MG/2 ML VIAL IV STA (16:09)
--- NOTE | 2019-08-25 16:14 | ED ---
General Adult HPI - General Source: patient, RN notes reviewed Mode of arrival: ambulatory Limitations: no limitations <Carroll Dawson - Last Filed: 08/25/19 17:17> <Gatito Casas - Last Filed: 08/25/19 19:00> - General Chief complaint: Shortness of Breath Stated complaint: Dyspnea Time Seen by Provider: 08/25/19 15:51 - History of Present Illness Initial comments: Patient is a pleasant 53-year-old male presenting to the emergency Department with complaints of cough and source of breath. Onset of symptoms was a couple of days ago. Patient was seen and [address] and did have CT angios chest reported negative for pulmonary embolism. They were going to keep him secondary to high heart rate however he was able to talk to them into discharging him. Patient has had cough that is been nonproductive. Patient has had some mild chest discomfort. Patient has had some low-grade fevers. No leg pain or leg swelling. Patient does have distant history of asthma. (Carroll Dawson) - Related Data Home Medications Medication Instructions Recorded Confirmed Omeprazole [PriLOSEC] 20 mg PO DAILY PRN 12/11/17 07/22/19 metFORMIN HCL [Glucophage] 1,000 mg PO BID 04/24/18 07/22/19 HYDROcodone/APAP 10-325MG [[place] 1 tab PO QID PRN 10/22/18 07/22/19 10-325] Carvedilol [Coreg] 12.5 mg PO BID 07/22/19 07/22/19 Diltiazem HCl [Diltiazem HCl 24Hr 300 mg PO DAILY 07/22/19 07/22/19 ER] Hydrochlorothiazide 12.5 mg PO BID 07/22/19 07/22/19 glipiZIDE XL [Glucotrol XL] 5 mg PO DAILY 07/22/19 07/22/19 Previous Rx's Medication Instructions Recorded Insulin Detemir (Levemir) [Levemir] 23 unit SQ HS #1 syr 07/25/19 Allergies Allergy/AdvReac Type Severity Reaction Status Date / Time doxycycline Allergy Swelling Verified 07/28/19 11:13 ketorolac tromethamine Allergy Rash/Hives Verified 07/28/19 11:13 [From Toradol] morphine Allergy Rash/Hives Verified 07/28/19 11:13 metoclopramide HCl AdvReac Dystonic Verified 07/28/19 11:13 [From Reglan] Reaction prochlorperazine edisylate AdvReac Dystonic Verified 07/28/19 11:13 [From Compazine] Reaction prochlorperazine maleate AdvReac Dystonic Verified 07/28/19 11:13 [From Compazine] Reaction Review of Systems ROS Other: All systems not noted in ROS Statement are negative. Constitutional: Reports: as per HPI Eyes: Denies: eye pain ENT: Denies: throat pain Respiratory: Reports: cough, dyspnea Cardiovascular: Reports: chest pain Endocrine: Denies: fatigue Gastrointestinal: Denies: abdominal pain Genitourinary: Denies: dysuria Musculoskeletal: Denies: back pain Skin: Denies: rash Neurological: Denies: confusion <Carroll Dawson - Last Filed: 08/25/19 17:17> ROS Other: All systems not noted in ROS Statement are negative. <Gatito Casas - Last Filed: 08/25/19 19:00> ROS Statement: Those systems with pertinent positive or pertinent negative responses have been documented in the HPI. Past Medical History Past Medical History: Asthma, Chest Pain / Angina, Diabetes Mellitus, GERD/Reflux, Hyperlipidemia, Hypertension, Myocardial Infarction ([place]), Mitral Valve Prolapse (MVP), Pulmonary Embolus (PE), Sleep Apnea/CPAP/BIPAP Additional Past Medical History / Comment(s): Obesity, chronic asthmatic bronchitis, previous history of pulmonary embolism, objective sleep apnea, diabetes mellitus, hypertension, hyperlipidemia, previous history of myocardial infarction with underlying coronary artery disease, renal cysts, chronic back pain secondary to herniated lumbar disc disease with symptoms of sciatica, history of right lower extremity fracture at the age of 13, history of C. diff colitis approximately 4 years ago, history of bleeding peptic ulcer, nephrolithiasis, previous history of UTI and secondary sepsis. Last Myocardial Infarction Date:: 2011 History of Any Multi-Drug Resistant Organisms: MRSA Date of last positivie culture/infection: 2016 MDRO Source:: left axilla Past Surgical History: Appendectomy, Back Surgery, Cholecystectomy, Heart Catheterization, Hernia Repair Additional Past Surgical History / Comment(s): 2007 back surgery with decompression fusion at [facility], 2011, 2016 cardiac cath, multiple ESWL/ureteral stents/ double J catheters, L inquinal hernia repair, PICC line for ABX for urosepsis-since removed., Hx of c-diff. Past Anesthesia/Blood Transfusion Reactions: No Reported Reaction Past Psychological History: No Psychological Hx Reported Smoking Status: Never smoker Past Alcohol Use History: None Reported Past Drug Use History: None Reported - Past Family History Father Family Medical History: Chest Pain / Angina Additional Family Medical History / Comment(s): "lung problems" Mother Family Medical History: Cancer, Chest Pain / Angina, Congestive Heart Failure (CHF), Osteoarthritis (OA), Thyroid Disorder <Carroll Dawson - Last Filed: 08/25/19 17:17> General Exam Limitations: no limitations General appearance: alert, in no apparent distress Head exam: Present: normocephalic Eye exam: Present: normal appearance, PERRL ENT exam: Present: normal oropharynx Neck exam: Present: normal inspection Respiratory exam: Present: wheezes Cardiovascular Exam: Present: tachycardia Expanded Peripheral pulses: 2+: Radial (R), Radial (L), Dorsalis Pedis (R), Dorsalis Pedis (L) GI/Abdominal exam: Present: soft. Absent: tenderness Extremities exam: Present: normal inspection. 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 Casas (Carroll Dawson) Reevaluation #2: 08/25/19 18:59 Patient feeling improved with pain control. Treatment here in the ER (Gatito Casas) - Consultations Consultation #1: spoke w QASIM andrade for admission (Gatito Casas) EKG Findings - EKG Comments: EKG Findings:: Sinus tachycardia 121. WI 14. QRS 112. QT 334. QTC 474. Norm al axis. Normal QRS. Nonspecific ST-T. <Carroll Dawson - Last Filed: 08/25/19 17:17> Medical Decision Making - Lab Data Result diagrams: 08/25/19 17:01 08/25/19 17:01 - Radiology Data Radiology results: report reviewed (Chest x-ray is negative for acute disease), image reviewed <Gatito Casas - Last Filed: 08/25/19 19:00> - Medical Decision Making 53 male DF for evaluation patient has a for evaluation of shortness of breath chest pain continued chest pain currently patient does have positive flu Reese ette for treatment of flu watch of cardiopulmonary status (Gatito Casas) - Lab Data Lab Results 08/25/19 08/25/19 08/25/19 Range/Units 16:24 17:01 17:01 WBC 7.6 (3.8-10.6) k/uL RBC 4.81 (4.30-5.90) m/uL Hgb 13.4 (13.0-17.5) gm/dL Hct 40.8 (39.0-53.0) % MCV 84.9 (80.0-100.0) fL MCH 27.9 (25.0-35.0) pg MCHC 32.8 (31.0-37.0) g/dL RDW 14.0 (11.5-15.5) % Plt Count 253 (150-450) k/uL Neutrophils % 79 % Lymphocytes % 11 % Monocytes % 5 % Eosinophils % 1 % Basophils % 2 % Neutrophils # 6.1 (1.3-7.7) k/uL Lymphocytes # 0.8 L (1.0-4.8) k/uL Monocytes # 0.4 (0-1.0) k/uL Eosinophils # 0.1 (0-0.7) k/uL Basophils # 0.1 (0-0.2) k/uL PT 9.4 (9.0-12.0) sec INR 0.9 (<1.2) APTT 16.9 L (22.0-30.0) sec Sodium (137-145) mmol/L Potassium (3.5-5.1) mmol/L Chloride (98-107) mmol/L Carbon Dioxide (22-30) mmol/L Anion Gap mmol/L BUN (9-20) mg/dL Creatinine (0.66-1.25) mg/dL Est GFR (CKD-EPI)AfAm (>60 ml/min/1.73 sqM) Est GFR (CKD-EPI)NonAf (>60 ml/min/1.73 sqM) Glucose (74-99) mg/dL Plasma Lactic Acid Edd (0.7-2.0) mmol/L Calcium (8.4-10.2) mg/dL Total Bilirubin (0.2-1.3) mg/dL AST (17-59) U/L ALT (4-49) U/L Alkaline Phosphatase (38-126) U/L Creatine Kinase (55-170) U/L Troponin I (0.000-0.034) ng/mL NT-Pro-B Natriuret Pep pg/mL Total Protein (6.3-8.2) g/dL Albumin (3.5-5.0) g/dL Influenza Type A RNA Detected H (Not Detectd) Influenza Type B (PCR) Not Detected (Not Detectd) 08/25/19 08/25/19 08/25/19 Range/Units 17:01 17:01 17:01 WBC (3.8-10.6) k/uL RBC (4.30-5.90) m/uL Hgb (13.0-17.5) gm/dL Hct (39.0-53.0) % MCV (80.0-100.0) fL MCH (25.0-35.0) pg MCHC (31.0-37.0) g/dL RDW (11.5-15.5) % Plt Count (150-450) k/uL Neutrophils % % Lymphocytes % % Monocytes % % Eosinophils % % Basophils % % Neutrophils # (1.3-7.7) k/uL Lymphocytes # (1.0-4.8) k/uL Monocytes # (0-1.0) k/uL Eosinophils # (0-0.7) k/uL Basophils # (0-0.2) k/uL PT (9.0-12.0) sec INR (<1.2) APTT (22.0-30.0) sec Sodium 132 L (137-145) mmol/L Potassium 4.0 (3.5-5.1) mmol/L Chloride 98 (98-107) mmol/L Carbon Dioxide 20 L (22-30) mmol/L Anion Gap 14 mmol/L BUN 19 (9-20) mg/dL Creatinine 0.83 (0.66-1.25) mg/dL Est GFR (CKD-EPI)AfAm >90 (>60 ml/min/1.73 sqM) Est GFR (CKD-EPI)NonAf >90 (>60 ml/min/1.73 sqM) Glucose 360 H (74-99) mg/dL Plasma Lactic Acid Edd 2.9 H* (0.7-2.0) mmol/L Calcium 9.4 (8.4-10.2) mg/dL Total Bilirubin 0.6 (0.2-1.3) mg/dL AST 67 H (17-59) U/L ALT 52 H (4-49) U/L Alkaline Phosphatase 106 (38-126) U/L Creatine Kinase 414 H (55-170) U/L Troponin I <0.012 (0.000-0.034) ng/mL NT-Pro-B Natriuret Pep pg/mL Total Protein 7.1 (6.3-8.2) g/dL Albumin 4.2 (3.5-5.0) g/dL Influenza Type A RNA (Not Detectd) Influenza Type B (PCR) (Not Detectd) 08/25/19 Range/Units 17:01 WBC (3.8-10.6) k/uL RBC (4.30-5.90) m/uL Hgb (13.0-17.5) gm/dL Hct (39.0-53.0) % MCV (80.0-100.0) fL MCH (25.0-35.0) pg MCHC (31.0-37.0) g/dL RDW (11.5-15.5) % Plt Count (150-450) k/uL Neutrophils % % Lymphocytes % % Monocytes % % Eosinophils % % Basophils % % Neutrophils # (1.3-7.7) k/uL Lymphocytes # (1.0-4.8) k/uL Monocytes # (0-1.0) k/uL Eosinophils # (0-0.7) k/uL Basophils # (0-0.2) k/uL PT (9.0-12.0) sec INR (<1.2) APTT (22.0-30.0) sec Sodium (137-145) mmol/L Potassium (3.5-5.1) mmol/L Chloride (98-107) mmol/L Carbon Dioxide (22-30) mmol/L Anion Gap mmol/L BUN (9-20) mg/dL Creatinine (0.66-1.25) mg/dL Est GFR (CKD-EPI)AfAm (>60 ml/min/1.73 sqM) Est GFR (CKD-EPI)NonAf (>60 ml/min/1.73 sqM) Glucose (74-99) mg/dL Plasma Lactic Acid Edd (0.7-2.0) mmol/L Calcium (8.4-10.2) mg/dL Total Bilirubin (0.2-1.3) mg/dL AST (17-59) U/L ALT (4-49) U/L Alkaline Phosphatase (38-126) U/L Creatine Kinase (55-170) U/L Troponin I (0.000-0.034) ng/mL NT-Pro-B Natriuret Pep 113 pg/mL Total Protein (6.3-8.2) g/dL Albumin (3.5-5.0) g/dL Influenza Type A RNA (Not Detectd) Influenza Type B (PCR) (Not Detectd) Disposition <Carroll Dawson - Last Filed: 08/25/19 17:17> Is patient prescribed a controlled substance at d/c from ED?: No <Gatito Casas - Last Filed: 08/25/19 19:00> Clinical Impression: Asthma with acute exacerbation, Acute exacerbation of chronic obstructive pulmonary disease, Chest pain, Influenza A Disposition: ADMITTED IP TO THIS HOSP Condition: Good Referrals: Trav Muniz MD [Primary Care Provider] - 1-2 days
[2019-08-25 17:18] LABS: Basophils # (A) 0.1 k/uL (0-0.2); Basophils % (A) 2 %; Eosinophils # (A) 0.1 k/uL (0-0.7); Eosinophils % (A) 1 %; HCT 40.8 % (39.0-53.0); HGB 13.4 gm/dL (13.0-17.5); Lymphocytes # (A) 0.8 k/uL (1.0-4.8); Lymphocytes % (A) 11 %; MCH 27.9 pg (25.0-35.0); MCHC 32.8 g/dL (31.0-37.0); MCV 84.9 fL (80.0-100.0); Mean Platelet Volume 7.3; Monocytes # (A) 0.4 k/uL (0-1.0); Monocytes % (A) 5 %; Neutrophils # (A) 6.1 k/uL (1.3-7.7); Neutrophils % (A) 79 %; Platelet Count 253 k/uL (150-450); RBC 4.81 m/uL (4.30-5.90); WBC 7.6 k/uL (3.8-10.6)
[2019-08-25] MEDS ORDERED: diphenhydrAMINE 50 MG/ML 1 ML VIAL IVP STA (17:21)
[2019-08-25] MEDS ORDERED: NAPROXEN 250 MG TAB PO STA (17:21)
[2019-08-25] MEDS ORDERED: HYDROmorphone 1 MG/ML 1 ML SYRINGE IVP STA (17:21)
[2019-08-25 17:28] LABS: ALT 52 U/L (4-49); AST 67 U/L (17-59); African American GFR (CKD) >90 (>60 ml/min/1.73 sqM); Albumin 4.2 g/dL (3.5-5.0); Alkaline Phosphatase 106 U/L (38-126); Anion Gap 14 mmol/L; Blood Urea Nitrogen 19 mg/dL (9-20); Calcium 9.4 mg/dL (8.4-10.2); Carbon Dioxide 20 mmol/L (22-30); Chloride 98 mmol/L (98-107); Creatine Kinase 414 U/L (55-170); Glucose 360 mg/dL (74-99); Non-African American GFR(CKD) >90 (>60 ml/min/1.73 sqM); Sodium 132 mmol/L (137-145); Total Bilirubin 0.6 mg/dL (0.2-1.3); Total Protein 7.1 g/dL (6.3-8.2)
[2019-08-25 17:33] LABS: INR 0.9 (<1.2); Prothrombin Time 9.4 sec (9.0-12.0)
[2019-08-25 17:35] LABS: Partial Thromboplastin Time 16.9 sec (22.0-30.0)
--- NOTE | 2019-08-25 17:52 | XR ---
EXAMINATION TYPE: XR chest 2V DATE OF EXAM: 08/25/2019 COMPARISON: 07/28/2019 TECHNIQUE: PA and lateral views submitted. HISTORY: Difficulty breathing FINDINGS: The lungs are clear and there is no pneumothorax, pleural effusion, or focal pneumonia. Findings chavarria ggest previous surgery and cervical spine. Stable pleural-based thickening bilaterally. Hypertrophic and degenerative change of the spine. Heart size is stable and borderline in size. IMPRESSION: 1. No acute process. Stable bilateral pleural thickening.
[2019-08-25] MEDS ORDERED: ASPIRIN 81 MG PO STA (18:50)
[2019-08-25] MEDS ORDERED: NITROGLYCERIN SL TABS 0.4 MG TAB SUBLINGUAL PRN (18:50)
[2019-08-25] MEDS ORDERED: SODIUM CHLORIDE 0.9% 1,000 ML IV STA (19:00)
[2019-08-25] MEDS ORDERED: OSELTAMIVIR 75 MG CAP PO STA (19:00)
[2019-08-25] MEDS ORDERED: SODIUM CHLORIDE 0.9% 500 ML 500 ML IV STA (19:00)
[2019-08-25 19:01] LABS: Glucose,Whole Blood 347 mg/dL (75-99)
[2019-08-25] MEDS: SODIUM CHLORIDE 0.9% 1,000 ML IV SCH (19:03)
[2019-08-25] MEDS: HYDROmorphone 1 MG/ML 1 ML SYRINGE IVP PRN ×2 (19:43→23:21)
[2019-08-25] MEDS: IPRATROPIUM-ALBUTEROL 3 ML NEB INHALATION SCH ×2 (20:07→23:20)
[2019-08-26] MEDS: IPRATROPIUM-ALBUTEROL 3 ML NEB INHALATION SCH ×6 (03:55→23:49)
[2019-08-26] MEDS: HYDROmorphone 1 MG/ML 1 ML SYRINGE IVP PRN ×4 (04:26→21:53)
[2019-08-26] MEDS: diphenhydrAMINE 50 MG/ML 1 ML VIAL IVP PRN ×2 (04:34→14:22)
[2019-08-26] MEDS: SODIUM CHLORIDE 0.9% 1,000 ML IV SCH ×2 (05:36→18:12)
[2019-08-26] MEDS ORDERED: PANTOPRAZOLE 40 MG TABLET PO PRN (06:02)
[2019-08-26 06:13] LABS: Glucose,Whole Blood 472 mg/dL (75-99)
[2019-08-26 06:40] LABS: Cholesterol 169 mg/dL (<200); HDL Cholesterol 32 mg/dL (40-60); LDL Cholesterol,Calculated 98 mg/dL (0-99); Triglycerides 197 mg/dL (<150)
[2019-08-26] MEDS: INSULIN ASPART (NovoLOG) 100 UNIT/ML VIAL SQ SCH ×4 (07:02→21:32)
[2019-08-26] MEDS: CARVEDILOL 12.5 MG TAB PO SCH ×2 (07:02→17:29)
[2019-08-26] MEDS: ASPIRIN 325 MG TAB PO SCH (08:44)
[2019-08-26] MEDS: OSELTAMIVIR 75 MG CAP PO SCH ×2 (08:44→20:43)
[2019-08-26] MEDS: DILTIAZEM CD 300 MG CAP.ER.24H PO SCH (08:44)
[2019-08-26] MEDS: ENOXAPARIN 40 MG/0.4 ML SYRINGE SQ SCH (08:44)
[2019-08-26] MEDS: HYDROcodone/APAP 10-325MG 1 EACH TAB PO PRN ×2 (11:01→17:29)
[2019-08-26 12:15] LABS: Glucose,Whole Blood 244 mg/dL (75-99)
[2019-08-26] MEDS ORDERED: diphenhydrAMINE 25 MG CAP PO PRN (15:04)
[2019-08-26 16:47] LABS: Glucose,Whole Blood 196 mg/dL (75-99)
--- NOTE | 2019-08-26 17:19 | P.HPIM ---
History of Present Illness This is a pleasant 53 years old male with past medical history of asthma, chest pain, diabetes mellitus, GERD, hyperlipidemia, hypertension, pulmonary embolism, multiple ESWL status post ureteral stent, C. diff He presents this time because of central chest pain of 2 days' duration, not radiating to the back about 10/10, down to 5/10 currently, felt like sharp increased by deep breathing and coughing. Associated with dyspnea which was the main problem for him at some exertional dizziness and low-grade fever. Also patient was covering was some greenish phlegm He denies alcohol or illicit drugs He was recently admitted to the hospital for 2 days for his diabetic problem No abdominal complaints or change in urine or bowel habits On admission patient had low-grade fever of 99.8. Risks of Vitas looks stable, he is slightly tachypneic at 20/m. BMP is unremarkable. Sugar is 200-400. Troponin is negative. He has elevated lactic acid 2.9 came back to normal at 1.2. Liver enzymes slightly elevated at AST 67 and ALT 52, bilirubin is normal 0.6, sodium 132, rest of BMP is unremarkable. Troponins negative less than 0.0 12. Influenza A is positive. Patient was started on Tamiflu and emergency room and normal saline at 100 mL per hour EKG: Sinus tachycardia at [address]-T abnormality, DC is 474. Chest x-ray: No acute process and bilateral pleural thickening by a radiologist MAPS was checked and he is on [place] 10 mg, was started on Dilaudid and I discussed with him and he agrees to be tapered off gradually lowered to day to every 8 hours instead of every 4 hours. Cardiology team already consulted Review of Systems CONSTITUTIONAL: No fever, no malaise, no fatigue. HEENT: No recent visual problems or hearing problems. Denied any sore throat. CARDIOVASCULAR: No orthopnea, PND, no palpitations, no syncope. PULMONARY: No shortness of breath, no cough, no hemoptysis. GASTROINTESTINAL: No diarrhea, no nausea, no vomiting, no abdominal pain. Normoactive bowel sounds. NEUROLOGICAL: No headaches, no weakness, no numbness. HEMATOLOGICAL: Denies any bleeding or petechiae. GENITOURINARY: Denies any burning micturition, frequency, or urgency. MUSCULOSKELETAL/RHEUMATOLOGICAL: Denies any joint pain, swelling, or any muscle pain. ENDOCRINE: Denies any polyuria or polydipsia. Past Medical History Past Medical History: Asthma, Chest Pain / Angina, Diabetes Mellitus, GERD/Reflux, Hyperlipidemia, Hypertension, Myocardial Infarction ([place]), Mitral Valve Prolapse (MVP), Pulmonary Embolus (PE), Sleep Apnea/CPAP/BIPAP Additional Past Medical History / Comment(s): Obesity, chronic asthmatic bron chitis, previous history of pulmonary embolism, objective sleep apnea, diabetes mellitus, hypertension, hyperlipidemia, previous history of myocardial infarction with underlying coronary artery disease, renal cysts, chronic back pain secondary to herniated lumbar disc disease with symptoms of sciatica, history of right lower extremity fracture at the age of 13, history of C. diff colitis approximately 4 years ago, history of bleeding peptic ulcer, nephrolithiasis, previous history of UTI and secondary sepsis. Last Myocardial Infarction Date:: 2011 History of Any Multi-Drug Resistant Organisms: MRSA Date of last positivie culture/infection: 2015 MDRO Source:: left axilla Past Surgical History: Appendectomy, Back Surgery, Cholecystectomy, Heart Catheterization, Hernia Repair Additional Past Surgical History / Comment(s): 2007 back surgery with decompression fusion at [facility], 2011, 2016 cardiac cath, multiple ESWL/ureteral stents/ double J catheters, L inquinal hernia repair, PICC line for ABX for urosepsis-since removed., Hx of c-diff. 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 Smoking Status: Never smoker Past Alcohol Use History: None Reported Past Drug Use History: None Reported - Past Family History Father Family Medical History: Chest Pain / Angina Additional Family Medical History / Comment(s): "lung problems" Mother Family Medical History: Cancer, Chest Pain / Angina, Congestive Heart Failure (CHF), Osteoarthritis (OA), Thyroid Disorder Medications and Allergies Home Medications Medication Instructions Recorded Confirmed Type Omeprazole [PriLOSEC] 20 mg PO DAILY 12/11/17 08/26/19 History metFORMIN HCL [Glucophage] 500 mg PO BID 04/24/18 08/26/19 History HYDROcodone/APAP 10-325MG [[place] 1 tab PO QID PRN 10/22/18 08/26/19 History 10-325] Carvedilol [Coreg] 12.5 mg PO BID 07/22/19 08/26/19 History Hydrochlorothiazide 25 mg PO BID 07/22/19 08/26/19 History glipiZIDE XL [Glucotrol XL] 5 mg PO DAILY 07/22/19 08/26/19 History Atorvastatin [Lipitor] 20 mg PO DAILY 08/26/19 08/26/19 History Diltiazem HCl [Diltiazem HCl 24Hr 240 mg PO DAILY 08/26/19 08/26/19 History ER] Insulin Glargine,Hum.rec.anlog 15 unit SQ HS 08/26/19 08/26/19 History [Basaglar Kwikpen U-100] Lisinopril [Zestril] 40 mg PO DAILY 08/26/19 08/26/19 History Allergies Allergy/AdvReac Type Severity Reaction Status Date / Time doxycycline Allergy Swelling Verified 08/26/19 10:27 ketorolac tromethamine Allergy Rash/Hives Verified 08/26/19 10:27 [From Toradol] morphine Allergy Rash/Hives Verified 08/26/19 10:27 metoclopramide HCl AdvReac Dystonic Verified 08/26/19 10:27 [From Reglan] Reaction prochlorperazine edisylate AdvReac Dystonic Verified 08/26/19 10:27 [From Compazine] Reaction prochlorperazine maleate AdvReac Dystonic Verified 08/26/19 10:27 [From Compazine] Reaction Physical Exam Vitals: Vital Signs Temp Pulse Pulse Resp BP BP Pulse Ox 08/26/19 15:54 98.3 F 87 18 129/70 94 L 08/26/19 12:38 104 H 08/26/19 12:27 100 08/26/19 11:15 98.4 F 89 20 127/70 96 08/26/19 09:12 98.2 F 96 18 124/74 94 L 08/26/19 08:00 96 18 08/26/19 04:10 104 H 08/26/19 04:00 97.9 F 93 20 114/71 96 08/26/19 03:55 100 08/26/19 00:00 97.8 F 100 20 127/71 95 08/25/19 20:45 97.6 F 107 H 20 137/77 95 08/25/19 20:00 98.4 F 113 H 106 H 16 138/77 157/86 98 08/25/19 19:20 99.8 F H 118 H 20 146/85 95 08/25/19 19:07 121 H 24 118/81 93 L 08/25/19 18:27 120 H 08/25/19 18:17 126 H 24 Intake and Output 08/26/19 08/26/19 08/26/19 06:59 14:59 22:59 Intake Total 1000 480 Balance 1000 480 Intake: Oral 1000 480 Other: # Voids 1 Weight 139.4 kg GENERAL: The patient is alert and oriented x3, not in any acute distress. Well developed, well nourished. HEENT: Pupils are round and equally reacting to light. EOMI. No scleral icterus. No conjunctival pallor. Normocephalic, atraumatic. No pharyngeal erythema. No thyromegaly. CARDIOVASCULAR: S1 and S2 present. No murmurs, rubs, or gallops. -PULMONARY: Chest is clear to auscultation, bilateral expiratory wheezing however it looks, from the upper airways as well ABDOMEN: Soft, nontender, nondistended, normoactive bowel sounds. No palpable organomegaly. MUSCULOSKELETAL: No joint swelling or deformity. EXTREMITIES: No cyanosis, clubbing, or pedal edema. NEUROLOGICAL: Gross neurological examination did not reveal any focal deficits. SKIN: No rashes. No petechiae Results CBC & Chem 7: 08/25/19 17:01 08/25/19 17:01 Labs: Abnormal Lab Results - Last 24 Hours (Table) 08/25/19 08/25/19 08/25/19 Range/Units 16:24 17:01 17:01 Lymphocytes # 0.8 L (1.0-4.8) k/uL APTT 16.9 L (22.0-30.0) sec Sodium (137-145) mmol/L Carbon Dioxide (22-30) mmol/L Glucose (74-99) mg/dL POC Glucose (mg/dL) (75-99) mg/dL Plasma Lactic Acid Edd (0.7-2.0) mmol/L AST (17-59) U/L ALT (4-49) U/L Creatine Kinase (55-170) U/L Triglycerides (<150) mg/dL HDL Cholesterol (40-60) mg/dL Influenza Type A RNA Detected H (Not Detectd) 08/25/19 08/25/19 08/25/19 Range/Units 17:01 17:01 19:01 Lymphocytes # (1.0-4.8) k/uL APTT (22.0-30.0) sec Sodium 132 L (137-145) mmol/L Carbon Dioxide 20 L (22-30) mmol/L Glucose 360 H (74-99) mg/dL POC Glucose (mg/dL) 347 H (75-99) mg/dL Plasma Lactic Acid Edd 2.9 H* (0.7-2.0) mmol/L AST 67 H (17-59) U/L ALT 52 H (4-49) U/L Creatine Kinase 414 H (55-170) U/L Triglycerides (<150) mg/dL HDL Cholesterol (40-60) mg/dL Influenza Type A RNA (Not Detectd) 08/26/19 08/26/19 08/26/19 Range/Units 06:06 06:12 11:50 Lymphocytes # (1.0-4.8) k/uL APTT (22.0-30.0) sec Sodium (137-145) mmol/L Carbon Dioxide (22-30) mmol/L Glucose (74-99) mg/dL POC Glucose (mg/dL) 472 H 244 H (75-99) mg/dL Plasma Lactic Acid Edd (0.7-2.0) mmol/L AST (17-59) U/L ALT (4-49) U/L Creatine Kinase (55-170) U/L Triglycerides 197 H (<150) mg/dL HDL Cholesterol 32 L (40-60) mg/dL Influenza Type A RNA (Not Detectd) 08/26/19 Range/Units 16:38 Lymphocytes # (1.0-4.8) k/uL APTT (22.0-30.0) sec Sodium (137-145) mmol/L Carbon Dioxide (22-30) mmol/L Glucose (74-99) mg/dL POC Glucose (mg/dL) 196 H (75-99) mg/dL Plasma Lactic Acid Edd (0.7-2.0) mmol/L AST (17-59) U/L ALT (4-49) U/L Creatine Kinase (55-170) U/L Triglycerides (<150) mg/dL HDL Cholesterol (40-60) mg/dL Influenza Type A RNA (Not Detectd) Assessment and Plan Assessment: Influenza A infection Acute tracheobronchitis secondary to above Elevated lactic acid came back to normal Diabetes mellitus Hypertension Hyperlipidemia Sleep apnea on CPAP/BiPAP History of pulmonary embolism Mitral valve prolapse Gastroesophageal reflux disease History of asthma, not an active issue History of multiple ESWL status post ureteral stents History of C. diff chronic back pain status post back surgery in 2007 with decompression and fusion at [facility] Plan: This is a pleasant 53 years old male who presents with influenza. Continue with Tamiflu, continue with hydration. Follow-up recommendation by switchboard installer. Continue with Levemir Labs and medication were reviewed.. Continue same treatment. Continue with symptomatic treatment. Resume home medication. Monitor lytes and vitals. DVT and GI prophylaxis. Further recommendations of the clinical course of the pat ient DVT prophylaxis: Subcutaneous heparin GI Prophylaxis: Pepcid PT/OT: Pending Prognosis is guarded
[2019-08-26 20:40] LABS: Glucose,Whole Blood 247 mg/dL (75-99)
[2019-08-26] MEDS: INSULIN DETEMIR (LEVEMIR) 100 UNIT/ML SYR SQ SCH (21:32)
[2019-08-27] MEDS: SODIUM CHLORIDE 0.9% 1,000 ML IV SCH ×2 (00:40→18:07)
[2019-08-27] MEDS: HYDROcodone/APAP 10-325MG 1 EACH TAB PO PRN ×3 (00:44→19:51)
[2019-08-27] MEDS: IPRATROPIUM-ALBUTEROL 3 ML NEB INHALATION SCH ×5 (03:37→18:54)
[2019-08-27] MEDS: CARVEDILOL 12.5 MG TAB PO SCH ×2 (06:04→18:07)
[2019-08-27] MEDS: HYDROmorphone 1 MG/ML 1 ML SYRINGE IVP PRN ×3 (06:04→23:58)
[2019-08-27 06:34] LABS: ALT 75 U/L (4-49); AST 154 U/L (17-59); African American GFR (CKD) >90 (>60 ml/min/1.73 sqM); Alkaline Phosphatase 97 U/L (38-126); Anion Gap 14 mmol/L; Bilirubin, Delta 0.4 mg/dL (0.0-0.2); Bilirubin,Unconjugated 0.2 mg/dL (0.0-1.1); Blood Urea Nitrogen 21 mg/dL (9-20); Calcium 9.3 mg/dL (8.4-10.2); Carbon Dioxide 18 mmol/L (22-30); Chloride 104 mmol/L (98-107); Glucose 186 mg/dL (74-99); Non-African American GFR(CKD) >90 (>60 ml/min/1.73 sqM); Potassium 4.1 mmol/L (3.5-5.1); Sodium 136 mmol/L (137-145); Total Bilirubin 0.6 mg/dL (0.2-1.3); Total Protein 6.8 g/dL (6.3-8.2)
--- NOTE | 2019-08-27 08:50 | P.PN ---
Subjective This is a pleasant 53 years old male with past medical history of asthma, chest pain, diabetes mellitus, GERD, hyperlipidemia, hypertension, pulmonary embolism, multiple ESWL status post ureteral stent, C. diff He presents this time because of central chest pain of 2 days' duration, not radiating to the back about 10/10, down to 5/10 currently, felt like sharp increased by deep breathing and coughing. Associated with dyspnea which was the main problem for him at some exertional dizziness and low-grade fever. Also patient was covering was some greenish phlegm He denies alcohol or illicit drugs He was recently admitted to the hospital for 2 days for his diabetic problem No abdominal complaints or change in urine or bowel habits On admission patient had low-grade fever of 99.8. Risks of Vitas looks stable, he is slightly tachypneic at 20/m. BMP is unremarkable. Sugar is 200-400. Troponin is negative. He has elevated lactic acid 2.9 came back to normal at 1.2. Liver enzymes slightly elevated at AST 67 and ALT 52, bilirubin is normal 0.6, sodium 132, rest of BMP is unremarkable. Troponins negative less than 0.012. Influenza A is positive. Patient was started on Tamiflu and emergency room and normal saline at 100 mL per hour EKG: Sinus tachycardia at [address]-T abnormality, DC is 474. Chest x-ray: No acute process and bilateral pleural thickening by a radiologist MAPS was checked and he is on Nisula 10 mg, was started on Dilaudid and I discussed with him and he agrees to be tapered off gradually lowered to day to every 8 hours instead of every 4 hours. Cardiology team already consulted 08/27/2019 Patient still feeling dyspneic with some pleuritic-like chest pain central and on the rib cage especially in the right lower side, he still have coughing with greenish phlegm, Robitussin is added, he can walk to the restroom but he is dizzy at times, vitals stable, no fever, sodium 136, creatinine 0.7, sugar controlled around 196-247, magnesium is normal 2.0. Is slightly worsened, we'll check liver ultrasound and hepatitis panel. Patient continuous on Tamiflu and normal saline at 75 mL/h, his Levemir 23 units and the glipizide 2.5 mg as well as aspirin. Review of systems CONSTITUTIONAL: No fever, no malaise, no fatigue. HEENT: No recent visual problems or hearing problems. Denied any sore throat. CARDIOVASCULAR: No orthopnea, PND, no palpitations, no syncope. PULMONARY: no hemoptysis. GASTROINTESTINAL: No diarrhea, no nausea, no vomiting, no abdominal pain. Normoactive bowel sounds. NEUROLOGICAL: no weakness, no numbness. HEMATOLOGICAL: Denies any bleeding or petechiae. GENITOURINARY: Denies any burning micturition, frequency, or urgency. MUSCULOSKELETAL/RHEUMATOLOGICAL: Denies any joint pain, swelling, or any muscle pain. ENDOCRINE: Denies any polyuria or polydipsia. Active Medications Generic Name Dose Route Start Last Admin Trade Name Freq PRN Reason Stop Dose Admin Hydrocodone Bitart/Acetaminophen 1 each 08/26/19 06:02 08/27/19 00:44 Nisula 10 PO 1 each QID PRN Administration Pain Albuterol/Ipratropium 3 ml 08/25/19 21:00 08/27/19 07:38 Duoneb 0.5 Mg-3 Mg/3 Ml Soln INHALATION 3 ml RT-Q4H JOEY Administration Aspirin 325 mg 08/26/19 09:00 08/26/19 08:44 Aspirin PO 325 mg DAILY JOEY Administration Carvedilol 12.5 mg 08/26/19 07:30 08/27/19 06:04 Coreg PO 12.5 mg AC-BID JOEY Administration Diltiazem HCl 300 mg 08/26/19 09:00 08/26/19 08:44 Cardizem Cd PO 300 mg DAILY JOEY Administration Diphenhydramine HCl 25 mg 08/26/19 15:04 08/26/19 21:52 Benadryl PO 25 mg QID PRN Administration Allergy Symptoms Enoxaparin Sodium 40 mg 08/26/19 09:00 08/26/19 08:44 Lovenox SQ 40 mg DAILY JOEY Administration Glipizide 2.5 mg 08/26/19 09:00 08/26/19 20:43 Glucotrol PO 2.5 mg BID JOEY Administration Hydromorphone HCl 1 mg 08/26/19 17:16 08/27/19 06:04 Dilaudid IVP 1 mg Q8HR PRN Administration Pain Sodium Chloride 1,000 mls @ 75 mls/hr 08/25/19 19:00 08/27/19 00:40 Saline 0.9% IV Not Given .[id number] JOEY Insulin Aspart 0 unit 08/26/19 07:30 08/26/19 21:32 Novolog SQ 5 unit AC-TID JOEY Administration Protocol Insulin Detemir 23 unit 08/26/19 21:00 08/26/19 21:32 Levemir SQ 23 unit HS JOEY Administration Nitroglycerin 0.4 mg 08/25/19 18:50 Nitrostat SUBLINGUAL Q5M PRN Chest Pain Oseltamivir Phosphate 75 mg 08/26/19 09:00 08/26/19 20:43 Tamiflu PO 08/30/19 09:01 75 mg Q12HR JOEY Administration Pantoprazole Sodium 40 mg 08/26/19 06:02 Protonix PO DAILY PRN GI Upset Objective - Vital Signs Vital signs: Vital Signs Temp 97.9 F 08/27/19 04:00 Pulse 100 08/27/19 07:47 Resp 20 08/27/19 04:00 BP 117/76 08/27/19 04:00 Pulse Ox 97 08/27/19 04:00 Intake & Output 08/26/19 08/27/19 08/27/19 18:59 06:59 18:59 Intake Total 720 944 Output Total 600 Balance 720 344 Weight 135.9 kg Intake: Intake, IV Titration 0 Amount Sodium Chloride 0.9% 1, 0 000 ml @ 75 mls/hr IV . [id number] JOEY Rx#:[id number] Oral 720 944 Output: Urine 600 Other: # Voids 1 3 # Bowel Movements 1 - Exam GENERAL: The patient is alert and oriented x3, not in any acute distress. Well developed, well nourished. HEENT: Pupils are round and equally reacting to light. EOMI. No scleral icterus. No conjunctival pallor. Normocephalic, atraumatic. No pharyngeal erythema. No thyromegaly. CARDIOVASCULAR: S1 and S2 present. No murmurs, rubs, or gallops. -PULMONARY: Chest is clear to auscultation, bilateral expiratory wheezing however it looks, from the upper airways as well ABDOMEN: Soft, nontender, nondistended, normoactive bowel sounds. No palpable organomegaly. MUSCULOSKELETAL: No joint swelling or deformity. EXTREMITIES: No cyanosis, clubbing, or pedal edema. NEUROLOGICAL: Gross neurological examination did not reveal any focal deficits. SKIN: No rashes. No petechiae - Labs CBC & Chem 7: 08/25/19 17:01 08/27/19 05:44 Labs: Abnormal Lab Results - Last 24 Hours (Table) 08/26/19 08/26/19 08/26/19 Range/Units 11:50 16:38 20:39 Sodium (137-145) mmol/L Carbon Dioxide (22-30) mmol/L BUN (9-20) mg/dL Glucose (74-99) mg/dL POC Glucose (mg/dL) 244 H 196 H 247 H (75-99) mg/dL Delta Bilirubin (0.0-0.2) mg/dL AST (17-59) U/L ALT (4-49) U/L 08/27/19 Range/Units 05:44 Sodium 136 L (137-145) mmol/L Carbon Dioxide 18 L (22-30) mmol/L BUN 21 H (9-20) mg/dL Glucose 186 H (74-99) mg/dL POC Glucose (mg/dL) (75-99) mg/dL Delta Bilirubin 0.4 H (0.0-0.2) mg/dL AST 154 H (17-59) U/L ALT 75 H (4-49) U/L Assessment and Plan Assessment: Influenza A infection Acute tracheobronchitis secondary to above Elevated lactic acid came back to normal Diabetes mellitus Hypertension Hyperlipidemia Sleep apnea on CPAP/BiPAP History of pulmonary embolism Mitral valve prolapse Gastroesophageal reflux disease History of asthma, not an active issue History of multiple ESWL status post ureteral stents History of C. diff chronic back pain status post back surgery in 2007 with decompression and fusion at [facility] Plan: This is a pleasant 53 years old male who presents with influenza. Continue with Tamiflu, continue with hydration. 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 Continue with Levemir Labs and medication were reviewed.. Continue same treatment. Continue with symptomatic treatment. Resume home medication. Monitor lytes and vitals. DVT and GI prophylaxis. Further recommendations of the clinical course of the patient DVT prophylaxis: Subcutaneous heparin GI Prophylaxis: Pepcid PT/OT: Pending Prognosis is guarded
[2019-08-27] MEDS: OSELTAMIVIR 75 MG CAP PO SCH ×2 (10:07→19:51)
[2019-08-27] MEDS: DILTIAZEM CD 300 MG CAP.ER.24H PO SCH (10:07)
[2019-08-27] MEDS: ASPIRIN 325 MG TAB PO SCH (10:07)
[2019-08-27] MEDS: ENOXAPARIN 40 MG/0.4 ML SYRINGE SQ SCH (10:09)
--- NOTE | 2019-08-27 11:26 | US ---
EXAMINATION TYPE: US liver DATE OF EXAM: 08/27/2019 COMPARISON: NONE CLINICAL HISTORY: elevated liver enz. EXAM MEASUREMENTS: Liver Length: 23.0 cm Gallbladder Wall: Surgically absent CBD: 0.7 cm Right Kidney: 10.9 x 4.3 x 6.1 cm Morbidly obese patient with extensive overlying bowel gas, technically difficult, limited study. Pancreas: Obscured by bowel gas Liver: attenuating, difficult to penetrate, enlarged Gallbladder: Surgically absent Evidence for sonographic Capone's sign: no CBD: wnl Right Kidney: cyst measuring 3.7 x 2.9 x3.2cm IMPRESSION: 1. Hepatomegaly correlate for hepatitis, hepatic steatosis or diffuse hepatocellular disease. 2. Postcholecystectomy.
[2019-08-27 12:25] LABS: Glucose,Whole Blood 186 mg/dL (75-99)
[2019-08-27] MEDS: INSULIN ASPART (NovoLOG) 100 UNIT/ML VIAL SQ SCH ×2 (12:36→18:07)
--- NOTE | 2019-08-27 12:53 | P.CNPUL ---
History of Present Illness Consult date: 08/27/19 Reason for consult: dyspnea Chief complaint: Shortness of breath History of present illness: A pleasant 53-year-old male patient, morbidly obese, history of mild intermittent bronchial asthma, diabetes mellitus hypertension and hyperlipidemia and remote history of pulmonary embolism along with history of obstructive sleep apnea maintained on CPAP therapy. The patient got sick approximately she days back. He was visiting another friend at where he got quite uncomfortable, sick, tachycardic, congested and he started having increased cough. He was taken to the ED and he was suggested to stay overnight however the patient up leaving the hospital. He came in to our ED with similar complaints of chest congestion wheezing shortness of breath and increased respiratory distress. Denies having any fevers. His temperature was 99.8 in the ED. His vitals were stable. He was slightly tachypneic. His blood sugars were slightly elevated. Lactic acid level was at 2.9. LFTs showed some mild abnormalities with elevation of AST compared today of the. The bilirubin was within normal limits. Influenza screen was positive for influenza A. Troponin first set was 0.012. EKG showed no acute abnormalities. Chest x-ray shows some increased interstitial markings. There was no evidence of any clear airspace disease or pneumonia. The patient was started on Tamiflu. The patient was started on bronchodilators and steroids and the patient was admitted to the hospital. He is cardiac catheterization from 2 years back in 2017 was within normal limits. Review of Systems Constitutional: Denies chills, Denies fever Eyes: denies as per HPI, denies blurred vision, denies bulging eye, denies decreased vision, denies diplopia, denies discharge, denies dry eye, denies irritation, denies itching, denies pain, denies photophobia, denies loss of peripheral vision, denies loss of vision, denies tunnel vision/blind spots Ears: deny: decreased hearing, ear discharge, earache, tinnitus Ears, nose, mouth and throat: Denies headache, Denies sore throat Cardiovascular: Reports chest pain, Reports dyspnea on exertion Respiratory: Reports dyspnea, dyspnea, increased cough congestion and wheezing and the patient has obstructive sleep apnea. Gastrointestinal: Denies abdominal pain, Denies diarrhea, Denies nausea, Denies vomiting Genitourinary: Reports as per HPI Musculoskeletal: Reports as per HPI Musculoskeletal: absent: ankle pain, ankle stiffness, ankle swelling, as per HPI, elbow pain, elbow stiffness, elbow swelling, foot pain, foot stiffness, foot swelling, hand pain, hand stiffness, hand swelling, hip pain, hip stiffness, hip swelling, knee pain, knee stiffness, knee swelling, shoulder pain, shoulder stiffness, shoulder swelling, wrist pain, wrist stiffness, wrist swelling Integumentary: Reports as per HPI Neurological: Reports as per HPI Psychiatric: Reports as per HPI Endocrine: Reports as per HPI Hematologic/Lymphatic: Reports as per HPI Allergic/Immunologic: Reports as per HPI Past Medical History Past Medical History: Asthma, Chest Pain / Angina, Diabetes Mellitus, GERD/Reflux, Hyperlipidemia, Hypertension, Myocardial Infarction (NE), Mitral Valve Prolapse (MVP), Pulmonary Embolus (PE), Sleep Apnea/CPAP/BIPAP Additional Past Medical History / Comment(s): Obesity, chronic asthmatic bronchitis, previous history of pulmonary embolism, objective sleep apnea, diab etes mellitus, hypertension, hyperlipidemia, previous history of myocardial infarction with underlying coronary artery disease, renal cysts, chronic back pain secondary to herniated lumbar disc disease with symptoms of sciatica, history of right lower extremity fracture at the age of 13, history of C. diff colitis approximately 4 years ago, history of bleeding peptic ulcer, nephrolithiasis, previous history of UTI and secondary sepsis. Last Myocardial Infarction Date:: 2011 History of Any Multi-Drug Resistant Organisms: MRSA Date of last positivie culture/infection: 2015 MDRO Source:: left axilla Past Surgical History: Appendectomy, Back Surgery, Cholecystectomy, Heart Catheterization, Hernia Repair Additional Past Surgical History / Comment(s): 2007 back surgery with decompression fusion at , 2011, 2016 cardiac cath, multiple ESWL/ureteral stents/ double J catheters, L inquinal hernia repair, PICC line for ABX for urosepsis-since removed., Hx of c-diff. 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 Smoking Status: Never smoker Past Alcohol Use History: None Reported Past Drug Use History: None Reported - Past Family History Father Family Medical History: Chest Pain / Angina Additional Family Medical History / Comment(s): "lung problems" Mother Family Medical History: Cancer, Chest Pain / Angina, Congestive Heart Failure (CHF), Osteoarthritis (OA), Thyroid Disorder Medications and Allergies Home Medications Medication Instructions Recorded Confirmed Type Omeprazole [PriLOSEC] 20 mg PO DAILY 12/11/17 08/26/19 History metFORMIN HCL [Glucophage] 500 mg PO BID 04/24/18 08/26/19 History HYDROcodone/APAP 10-325MG [[place] 1 tab PO QID PRN 10/22/18 08/26/19 History 10-325] Carvedilol [Coreg] 12.5 mg PO BID 07/22/19 08/26/19 History Hydrochlorothiazide 25 mg PO BID 07/22/19 08/26/19 History glipiZIDE XL [Glucotrol XL] 5 mg PO DAILY 07/22/19 08/26/19 History Atorvastatin [Lipitor] 20 mg PO DAILY 08/26/19 08/26/19 History Diltiazem HCl [Diltiazem HCl 24Hr 240 mg PO DAILY 08/26/19 08/26/19 History ER] Insulin Glargine,Hum.rec.anlog 15 unit SQ HS 08/26/19 08/26/19 History [Basaglar Kwikpen U-100] Lisinopril [Zestril] 40 mg PO DAILY 08/26/19 08/26/19 History Allergies Allergy/AdvReac Type Severity Reaction Status Date / Time doxycycline Allergy Swelling Verified 08/26/19 10:27 ketorolac tromethamine Allergy Rash/Hives Verified 08/26/19 10:27 [From Toradol] morphine Allergy Rash/Hives Verified 08/26/19 10:27 metoclopramide HCl AdvReac Dystonic Verified 08/26/19 10:27 [From Reglan] Reaction prochlorperazine edisylate AdvReac Dystonic Verified 08/26/19 10:27 [From Compazine] Reaction prochlorperazine maleate AdvReac Dystonic Verified 08/26/19 10:27 [From Compazine] Reaction Physical Exam Vitals: Vital Signs Temp Pulse Pulse Resp BP Pulse Ox 08/27/19 12:00 98.4 F 74 18 117/57 95 08/27/19 11:45 104 H 08/27/19 11:33 100 08/27/19 10:18 98.6 F 82 20 133/72 95 08/27/19 07:47 100 08/27/19 07:39 96 08/27/19 04:00 97.9 F 94 20 117/76 97 08/26/19 20:00 98.0 F 96 20 101/56 95 08/26/19 17:27 100 08/26/19 17:15 100 08/26/19 15:54 98.3 F 87 18 129/70 94 L Intake and Output 08/26/19 08/27/19 08/27/19 22:59 06:59 14:59 Intake Total 240 944 120 Output Total 600 Balance 240 344 120 Intake: Intake, IV Titration 0 Amount Sodium Chloride 0.9% 1, 0 000 ml @ 75 mls/hr IV . [id number] JOEY Rx#:[id number] Oral 240 944 120 Output: Urine 600 Other: # Voids 1 3 1 # Bowel Movements 1 1 Weight 135.9 kg Gen. appearance, comfortable no acute distress obese Head exam was generally normal. There was no scleral icterus or corneal arcus. Mucous membranes were moist. Neck was supple and without jugular venous distension, thyromegaly, or carotid bruits. Carotids were easily palpable bilaterally. There was no adenopathy. Lymphatic less for and the patient has significant crowding of the posterior oropharynx. Lungs sounds are diminished and there is some scattered expiratory wheezes throughout the lung turner bilaterally. No chest wall deformity. Cardiac exam revealed the PMI to be normally situated and sized. The rhythm was regular and no extrasystoles were noted during several minutes of auscultation. The first and second heart sounds were normal and physiologic splitting of the second heart sound was noted. There were no murmurs, rubs, clicks, or gallops. Abdominal exam revealed normal bowel sounds. The abdomen was soft, non-tender, and without masses, organomegaly, or appreciable enlargement of the abdominal aorta. Examination of the extremities revealed easily palpable radial, femoral and pedal pulses. There was no cyanosis, clubbing or edema. Examination of the skin revealed no evidence of significant rashes, suspicious appearing nevi or other concerning lesions. Neurologically awake and alert and there is no focal neurological deficits Psychiatric negative for anxiety or depression Examination of the skin revealed no evidence of significant rashes, suspicious appearing nevi or other concerning lesions. Results - Laboratory Findings CBC and BMP: 08/25/19 17:01 08/27/19 05:44 PT/INR, D-dimer PT 9.4 sec (9.0-12.0) 08/25/19 17:01 INR 0.9 (<1.2) 08/25/19 17:01 Abnormal lab findings: Abnormal Labs 08/25/19 08/25/19 08/25/19 16:24 17:01 17:01 Lymphocytes # 0.8 L APTT 16.9 L Sodium Carbon Dioxide BUN Glucose POC Glucose (mg/dL) Plasma Lactic Acid Edd Delta Bilirubin AST ALT Creatine Kinase Triglycerides HDL Cholesterol Influenza Type A RNA Detected H 08/25/19 08/25/19 08/25/19 17:01 17:01 19:01 Lymphocytes # APTT Sodium 132 L Carbon Dioxide 20 L BUN Glucose 360 H POC Glucose (mg/dL) 347 H Plasma Lactic Acid Edd 2.9 H* Delta Bilirubin AST 67 H ALT 52 H Creatine Kinase 414 H Triglycerides HDL Cholesterol Influenza Type A RNA 08/26/19 08/26/19 08/26/19 06:06 06:12 11:50 Lymphocytes # APTT Sodium Carbon Dioxide BUN Glucose POC Glucose (mg/dL) 472 H 244 H Plasma Lactic Acid Edd Delta Bilirubin AST ALT Creatine Kinase Triglycerides 197 H HDL Cholesterol 32 L Influenza Type A RNA 08/26/19 08/26/19 08/27/19 16:38 20:39 05:44 Lymphocytes # APTT Sodium 136 L Carbon Dioxide 18 L BUN 21 H Glucose 186 H POC Glucose (mg/dL) 196 H 247 H Plasma Lactic Acid Edd Delta Bilirubin 0.4 H AST 154 H ALT 75 H Creatine Kinase Triglycerides HDL Cholesterol Influenza Type A RNA 08/27/19 11:59 Lymphocytes # APTT Sodium Carbon Dioxide BUN Glucose POC Glucose (mg/dL) 186 H Plasma Lactic Acid Edd Delta Bilirubin AST ALT Creatine Kinase Triglycerides HDL Cholesterol Influenza Type A RNA - Diagnostic Findings Chest x-ray: image reviewed Assessment and Plan Plan: 1 acute influenza a tracheobronchitis with secondary asthma exacerbation. The patient is quite symptomatic bronchospastic wheezing shortness of breath. Underlying early interstitial pneumonia cannot be completely excluded. The patient was started on Tamiflu. The patient is also started on a combination of bronchodilators and steroids. 2 chronic asthmatic bronchitis with exacerbation 3 obesity with BMI 41.6 4 obstructive sleep apnea maintained on CPAP therapy 5 coronary artery disease 6 diabetes mellitus 7 hypertension 8 remote history of pulmonary embolism, currently on no anticoagulants 9 comorbidities all mentioned above in history of present illness, in addition to chronic back pain, previous back and neck surgeries and the patient is cu rrently on medical disability. Plan Agree on Tamiflu Agree on IV Solu-Medrol Monitor the blood sugar and watch for any steroid-induced hyperglycemia. The patient is currently on Lantus along with a sliding-scale coverage Droplet isolation Past the patient to utilize his CPAP machine from home Chest x-ray reviewed Ultrasound of the liver ordered regarding some abnormalities in the liver function is. Nevertheless I think this is related to the viral infection and the ultrasound is within normal limits We'll continue to follow
--- NOTE | 2019-08-27 13:17 | P.CRDCN ---
History of Present Illness Consult date: 08/27/19 Chief complaint: Shortness of breath History of present illness: This is a very pleasant 53-year-old gentleman with a past medical history signif icant for diabetes, hypertension, dyslipidemia, and history of asthma, as well as obesity, presented to the hospital complaining of shortness of breath. The patient initially was visiting a friend at [facility] and at that point he did not feel well where he was experiencing shortness of breath associated with increasing in his heart rate and blood pressure. He presented to the emergency room over there where he had a workup according to him including a computed tomography scan of the chest which did not show any PE and the patient was discharged same day. He was running a fever at that point. He continues not feeling well and because of that he presented to the emergency room. He was seen by the pulmonary team where he was diagnosed with acute tracheobronchitis along with asthma exacerbation. We involved in the care of the patient for chest discomfort. The patient described discomfort in the mid of the chest, as a pressure on the chest, without any radiation to the arms or neck or shoulders, and without any associated symptoms of sweating, nausea, or vomiting. The car diac enzymes were checked and came in to be unremarkable. The EKG showed sinus rhythm with nonspecific changes in the high lateral leads. The patient had a workup for the chest pain back in 2017 and at that point he underwent a stress test and that revealed reversible defect but subsequent heart catheterization showed normal coronaries. Also he underwent an echocardiogram and that showed normal left ventricular systolic function without any significant valvular abnormalities. Past Medical History Past Medical History: Asthma, Chest Pain / Angina, Diabetes Mellitus, GERD/Reflux, Hyperlipidemia, Hypertension, Myocardial Infarction (IN), Mitral Valve Prolapse (MVP), Pulmonary Embolus (PE), Sleep Apnea/CPAP/BIPAP Additional Past Medical History / Comment(s): Obesity, chronic asthmatic bronchitis, previous history of pulmonary embolism, objective sleep apnea, diabetes mellitus, hypertension, hyperlipidemia, previous history of myocardial infarction with underlying coronary artery disease, renal cysts, chronic back pain secondary to herniated lumbar disc disease with symptoms of sciatica, history of right lower extremity fracture at the age of 13, history of C. diff colitis approximately 4 years ago, history of bleeding peptic ulcer, nephrolithiasis, previous history of UTI and secondary sepsis. Last Myocardial Infarction Date:: 2011 History of Any Multi-Drug Resistant Organisms: MRSA Date of last positivie culture/infection: 2016 MDRO Source:: left axilla Past Surgical History: Appendectomy, Back Surgery, Cholecystectomy, Heart Catheterization, Hernia Repair Additional Past Surgical History / Comment(s): 2007 back surgery with decompression fusion at [facility], 2011, 2016 cardiac cath, multiple ESWL/ureteral stents/ double J catheters, L inquinal hernia repair, PICC line for ABX for urosepsis-since removed., Hx of c-diff. 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 Smoking Status: Never smoker Past Alcohol Use History: None Reported Past Drug Use History: None Reported - Past Family History Father Family Medical History: Chest Pain / Angina Additional Family Medical History / Comment(s): "lung problems" Mother Family Medical History: Cancer, Chest Pain / Angina, Congestive Heart Failure (CHF), Osteoarthritis (OA), Thyroid Disorder Medications and Allergies Home Medications Medication Instructions Recorded Confirmed Type Omeprazole [PriLOSEC] 20 mg PO DAILY 12/11/17 08/26/19 History metFORMIN HCL [Glucophage] 500 mg PO BID 04/24/18 08/26/19 History HYDROcodone/APAP 10-325MG [Venus 1 tab PO QID PRN 10/22/18 08/26/19 History 10-325] Carvedilol [Coreg] 12.5 mg PO BID 07/22/19 08/26/19 History Hydrochlorothiazide 25 mg PO BID 07/22/19 08/26/19 History glipiZIDE XL [Glucotrol XL] 5 mg PO DAILY 07/22/19 08/26/19 History Atorvastatin [Lipitor] 20 mg PO DAILY 08/26/19 08/26/19 History Diltiazem HCl [Diltiazem HCl 24Hr 240 mg PO DAILY 08/26/19 08/26/19 History ER] Insulin Glargine,Hum.rec.anlog 15 unit SQ HS 08/26/19 08/26/19 History [Basaglar Kwikpen U-100] Lisinopril [Zestril] 40 mg PO DAILY 08/26/19 08/26/19 History Allergies Allergy/AdvReac Type Severity Reaction Status Date / Time doxycycline Allergy Swelling Verified 08/26/19 10:27 ketorolac tromethamine Allergy Rash/Hives Verified 08/26/19 10:27 [From Toradol] morphine Allergy Rash/Hives Verified 08/26/19 10:27 metoclopramide HCl AdvReac Dystonic Verified 08/26/19 10:27 [From Reglan] Reaction prochlorperazine edisylate AdvReac Dystonic Verified 08/26/19 10:27 [From Compazine] Reaction prochlorperazine maleate AdvReac Dystonic Verified 08/26/19 10:27 [From Compazine] Reaction Physical Exam Vitals: Vital Signs Temp Pulse Pulse Resp BP Pulse Ox 08/27/19 12:00 98.4 F 74 18 117/57 95 08/27/19 11:45 104 H 08/27/19 11:33 100 08/27/19 10:18 98.6 F 82 20 133/72 95 08/27/19 07:47 100 08/27/19 07:39 96 08/27/19 04:00 97.9 F 94 20 117/76 97 08/26/19 20:00 98.0 F 96 20 101/56 95 08/26/19 17:27 100 08/26/19 17:15 100 08/26/19 15:54 98.3 F 87 18 129/70 94 L Intake and Output 08/26/19 08/27/19 08/27/19 22:59 06:59 14:59 Intake Total 240 944 120 Output Total 600 Balance 240 344 120 Intake: Intake, IV Titration 0 Amount Sodium Chloride 0.9% 1, 0 000 ml @ 75 mls/hr IV . [id number] [facility] Rx#:[id number] Oral 240 944 120 Output: Urine 600 Other: # Voids 1 3 1 # Bowel Movements 1 1 Weight 135.9 kg - Constitutional General appearance: no acute distress Results 08/25/19 17:01 08/27/19 05:44 Cardiac Enzymes 08/27/19 Range/Units 05:44 AST 154 H (17-59) U/L Comprehensive Metabolic Panel 08/27/19 Range/Units 05:44 Sodium 136 L (137-145) mmol/L Potassium 4.1 (3.5-5.1) mmol/L Chloride 104 (98-107) mmol/L Carbon Dioxide 18 L (22-30) mmol/L BUN 21 H (9-20) mg/dL Creatinine 0.71 (0.66-1.25) mg/dL Glucose 186 H (74-99) mg/dL Calcium 9.3 (8.4-10.2) mg/dL Unconjugated Bilirubin 0.2 (0.0-1.1) mg/dL AST 154 H (17-59) U/L ALT 75 H (4-49) U/L Alkaline Phosphatase 97 (38-126) U/L Total Protein 6.8 (6.3-8.2) g/dL Albumin 4.0 (3.5-5.0) g/dL Current Medications Generic Name Dose Route Start Last Admin Trade Name Freq PRN Reason Stop Dose Admin Hydrocodone Bitart/Acetaminophen 1 each 08/26/19 06:02 08/27/19 10:07 [place] 10 PO 1 each QID PRN Administration Pain Albuterol/Ipratropium 3 ml 08/25/19 21:00 08/27/19 11:31 Duoneb 0.5 Mg-3 Mg/3 Ml Soln INHALATION 3 ml RT-Q4H JOEY Administration Aspirin 325 mg 08/26/19 09:00 08/27/19 10:07 Aspirin PO 325 mg DAILY JOEY Administration Carvedilol 12.5 mg 08/26/19 07:30 08/27/19 06:04 Coreg PO 12.5 mg AC-BID JOEY Administration Diltiazem HCl 300 mg 08/26/19 09:00 08/27/19 10:07 Cardizem Cd PO 300 mg DAILY JOEY Administration Diphenhydramine HCl 25 mg 08/26/19 15:04 08/26/19 21:52 Benadryl PO 25 mg QID PRN Administration Allergy Symptoms Enoxaparin Sodium 40 mg 08/26/19 09:00 08/27/19 10:09 Lovenox SQ 40 mg DAILY JOEY Administration Glipizide 2.5 mg 08/26/19 09:00 08/27/19 10:07 Glucotrol PO 2.5 mg BID JOEY Administration Hydromorphone HCl 1 mg 08/26/19 17:16 08/27/19 06:04 Dilaudid IVP 1 mg Q8HR PRN Administration Pain Sodium Chloride 1,000 mls @ 75 mls/hr 08/25/19 19:00 08/27/19 00:40 Saline 0.9% IV Not Given .[id number] JOEY Insulin Aspart 0 unit 08/26/19 07:30 08/27/19 12:36 Novolog SQ 3 unit AC-TID JOEY Administration Protocol Insulin Detemir 23 unit 08/26/19 21:00 08/26/19 21:32 Levemir SQ 23 unit HS JOEY Administration Nitroglycerin 0.4 mg 08/25/19 18:50 Nitrostat SUBLINGUAL Q5M PRN Chest Pain Oseltamivir Phosphate 75 mg 08/26/19 09:00 08/27/19 10:07 Tamiflu PO 08/30/19 09:01 75 mg Q12HR JOEY Administration Pantoprazole Sodium 40 mg 08/26/19 06:02 Protonix PO DAILY PRN GI Upset Intake and Output 08/26/19 08/27/19 08/27/19 22:59 06:59 14:59 Intake Total 240 944 120 Output Total 600 Balance 240 344 120 Intake: Intake, IV Titration 0 Amount Sodium Chloride 0.9% 1, 0 000 ml @ 75 mls/hr IV . [id number] JOEY Rx#:[id number] Oral 240 944 120 Output: Urine 600 Other: # Voids 1 3 1 # Bowel Movements 1 1 Weight 135.9 kg 08/25/19 17:01 08/27/19 05:44 Assessment and Plan Assessment: assessment #1 acute influenza tracheobronchitis with secondary asthma exacerbation #2 chest discomfort seems to be atypical #3 diabetes #4 hypertension #5 dyslipidemia Plan #1 acute coronary syndrome was ruled out #2 currently the patient is chest pain-free #3 please note that the patient did have a heart cath in 2017 and that was unremarkable #4 consider repeating the stress test once his tracheobronchitis/asthma improved #5 follow-up with the patient Thank you for allowing us participate in his care
[2019-08-27 17:13] LABS: Glucose,Whole Blood 199 mg/dL (75-99)
[2019-08-27 18:25] LABS: Hepatitis A Antibody IgM Non-Reactive (Non-Reactive); Hepatitis B Core IgM Non-Reactive (Non-Reactive); Hepatitis B Surface Antigen Non-Reactive (Non-Reactive); Hepatitis C IgG Antibody Non-Reactive (Non-Reactive)
[2019-08-27] MEDS: INSULIN DETEMIR (LEVEMIR) 100 UNIT/ML SYR SQ SCH (21:35)
[2019-08-27 21:44] LABS: Glucose,Whole Blood 173 mg/dL (75-99)
[2019-08-27] MEDS: methylPREDNISolone SOD SUCCI 40 MG/ML 1 ML VIAL IV SCH (22:42)
[2019-08-28] MEDS: IPRATROPIUM-ALBUTEROL 3 ML NEB INHALATION SCH ×5 (01:15→20:59)
[2019-08-28] MEDS: SODIUM CHLORIDE 0.9% 1,000 ML IV SCH ×2 (02:24→16:56)
[2019-08-28] MEDS: HYDROcodone/APAP 10-325MG 1 EACH TAB PO PRN ×3 (03:56→18:20)
[2019-08-28 07:30] LABS: Glucose,Whole Blood 354 mg/dL (75-99)
[2019-08-28] MEDS: DILTIAZEM CD 300 MG CAP.ER.24H PO SCH (07:38)
[2019-08-28] MEDS: ASPIRIN 325 MG TAB PO SCH (07:38)
[2019-08-28] MEDS: OSELTAMIVIR 75 MG CAP PO SCH ×2 (07:38→21:12)
[2019-08-28] MEDS: methylPREDNISolone SOD SUCCI 40 MG/ML 1 ML VIAL IV SCH ×2 (07:39→16:53)
[2019-08-28] MEDS: ENOXAPARIN 40 MG/0.4 ML SYRINGE SQ SCH (07:39)
[2019-08-28] MEDS: CARVEDILOL 12.5 MG TAB PO SCH ×2 (07:39→16:54)
[2019-08-28] MEDS: HYDROmorphone 1 MG/ML 1 ML SYRINGE IVP PRN ×2 (07:48→15:56)
[2019-08-28] MEDS: INSULIN ASPART (NovoLOG) 100 UNIT/ML VIAL SQ SCH ×3 (07:48→17:17)
--- NOTE | 2019-08-28 07:48 | P.PN ---
Subjective This is a pleasant 53 years old male with past medical history of asthma, chest pain, diabetes mellitus, GERD, hyperlipidemia, hypertension, pulmonary embolism, multiple ESWL status post ureteral stent, C. diff He presents this time because of central chest pain of 2 days' duration, not radiating to the back about 10/10, down to 5/10 currently, felt like sharp increased by deep breathing and coughing. Associated with dyspnea which was the main problem for him at some exertional dizziness and low-grade fever. Also patient was covering was some greenish phlegm He denies alcohol or illicit drugs He was recently admitted to the hospital for 2 days for his diabetic problem No abdominal complaints or change in urine or bowel habits On admission patient had low-grade fever of 99.8. Risks of Vitas looks stable, he is slightly tachypneic at 20/m. BMP is unremarkable. Sugar is 200-400. Troponin is negative. He has elevated lactic acid 2.9 came back to normal at 1.2. Liver enzymes slightly elevated at AST 67 and ALT 52, bilirubin is normal 0.6, sodium 132, rest of BMP is unremarkable. Troponins negative less than 0.012. Influenza A is positive. Patient was started on Tamiflu and emergency room and normal saline at 100 mL per hour EKG: Sinus tachycardia at [address]-T abnormality, DC is 474. Chest x-ray: No acute process and bilateral pleural thickening by a radiologist MAPS was checked and he is on [place] 10 mg, was started on Dilaudid and I discussed with him and he agrees to be tapered off gradually lowered to day to every 8 hours instead of every 4 hours. Cardiology team already consulted 08/27/2019 Patient still feeling dyspneic with some pleuritic-like chest pain central and on the rib cage especially in the right lower side, he still have coughing with greenish phlegm, Robitussin is added, he can walk to the restroom but he is dizzy at times, vitals stable, no fever, sodium 136, creatinine 0.7, sugar controlled around 196-247, magnesium is normal 2.0. Is slightly worsened, we'll check liver ultrasound and hepatitis panel. Patient continuous on Tamiflu and normal saline at 75 mL/h, his Levemir 23 units and the glipizide 2.5 mg as well as aspirin. 08/28/2019 Patient still with respiratory distress, he has dyspnea and cough with green phlegm, patient dizziness improved with IV fluid however patient started having diarrhea this morning 3, he had a regular bowel movement yesterday, no abdominal pain, no nausea vomiting. He is hemodynamically stable. Liver Enzymes were trending up slightly, hepatitis panel was negative, liver ultrasound showing hepatoma medially suspicious for hepatitis, hepatocellular disease versus other. Patient informed with this problem. We'll check for C. diff continue with normal saline at 75 mL/h. Continue with Tamiflu and Solu- Medrol. Continue monitor sugar. Bladder Cleaner evaluated the patient and recommended a stress test after his epidural was infection resolves, patient informed and he agrees. Review of systems CONSTITUTIONAL: No fever, no malaise, no fatigue. HEENT: No recent visual problems or hearing problems. Denied any sore throat. CARDIOVASCULAR: no palpitations, no syncope. PULMONARY: no hemoptysis. GASTROINTESTINAL: no nausea, no vomiting, no abdominal pain. Normoactive bowel sounds. NEUROLOGICAL: no weakness, no numbness. HEMATOLOGICAL: Denies any bleeding or petechiae. GENITOURINARY: Denies any burning micturition, frequency, or urgency. MUSCULOSKELETAL/RHEUMATOLOGICAL: Denies any joint pain, swelling, or any muscle pain. ENDOCRINE: Denies any polyuria or polydipsia. Active Medications Generic Name Dose Route Start Last Admin Trade Name Freq PRN Reason Stop Dose Admin Hydrocodone Bitart/Acetaminophen 1 each 08/26/19 06:02 08/28/19 03:56 [place] 10 PO 1 each QID PRN Administration Pain Albuterol/Ipratropium 3 ml 08/25/19 21:00 08/28/19 07:41 Duoneb 0.5 Mg-3 Mg/3 Ml Soln INHALATION 3 ml RT-Q4H JOEY Administration Aspirin 325 mg 08/26/19 09:00 08/27/19 10:07 Aspirin PO 325 mg DAILY JOEY Administration Carvedilol 12.5 mg 08/26/19 07:30 08/27/19 18:07 Coreg PO 12.5 mg AC-BID JOEY Administration Diltiazem HCl 300 mg 08/26/19 09:00 08/27/19 10:07 Cardizem Cd PO 300 mg DAILY JOEY Administration Diphenhydramine HCl 25 mg 08/26/19 15:04 08/26/19 21:52 Benadryl PO 25 mg QID PRN Administration Allergy Symptoms Enoxaparin Sodium 40 mg 08/26/19 09:00 08/27/19 10:09 Lovenox SQ 40 mg DAILY JOEY Administration Glipizide 2.5 mg 08/27/19 20:25 Glucotrol PO AC-BID [facility] Hydromorphone HCl 1 mg 08/26/19 17:16 08/27/19 23:58 Dilaudid IVP 1 mg Q8HR PRN Administration Pain Sodium Chloride 1,000 mls @ 75 mls/hr 08/25/19 19:00 08/28/19 02:24 Saline 0.9% IV Not Given .[id number] [facility] Insulin Aspart 0 unit 08/26/19 07:30 08/27/19 18:07 Novolog SQ 3 unit AC-TID JOEY Administration Protocol Insulin Detemir 23 unit 08/26/19 21:00 08/27/19 21:35 Levemir SQ 23 unit HS [facility] Administration Methylprednisolone Sodium Succinate 40 mg 08/27/19 22:30 08/27/19 22:42 Solu-Medrol IV 40 mg Q12HR [facility] Administration Nitroglycerin 0.4 mg 08/25/19 18:50 Nitrostat SUBLINGUAL Q5M PRN Chest Pain Oseltamivir Phosphate 75 mg 08/26/19 09:00 08/27/19 19:51 Tamiflu PO 08/30/19 09:01 75 mg Q12HR JOEY Administration Pantoprazole Sodium 40 mg 08/26/19 06:02 Protonix PO DAILY PRN GI Upset Objective - Vital Signs Vital signs: Vital Signs Temp 98.3 F 08/28/19 05:17 Pulse 87 08/28/19 05:17 Resp 18 08/28/19 05:17 BP 118/81 08/28/19 05:17 Pulse Ox 96 08/28/19 05:17 Intake & Output 08/27/19 08/28/19 08/28/19 18:59 06:59 18:59 Intake Total 360 Balance 360 Intake: Oral 360 Other: # Voids 1 2 # Bowel Movements 1 1 - Exam GENERAL: The patient is alert and oriented x3, not in any acute distress. Well developed, well nourished. HEENT: Pupils are round and equally reacting to light. EOMI. No scleral icterus. No conjunctival pallor. Normocephalic, atraumatic. No pharyngeal erythema. No thyromegaly. CARDIOVASCULAR: S1 and S2 present. No murmurs, rubs, or gallops. -PULMONARY: Chest is clear to auscultation, bilateral expiratory wheezing however it looks, from the upper airways as well ABDOMEN: Soft, nontender, nondistended, normoactive bowel sounds. No palpable organomegaly. MUSCULOSKELETAL: No joint swelling or deformity. EXTREMITIES: No cyanosis, clubbing, or pedal edema. NEUROLOGICAL: Gross neurological examination did not reveal any focal deficits. SKIN: No rashes. No petechiae - Labs CBC & Chem 7: 08/25/19 17:01 08/27/19 05:44 Labs: Abnormal Lab Results - Last 24 Hours (Table) 08/27/19 08/27/19 08/27/19 Range/Units 11:59 17:00 21:25 POC Glucose (mg/dL) 186 H 199 H 173 H (75-99) mg/dL 08/28/19 Range/Units 07:24 POC Glucose (mg/dL) 354 H (75-99) mg/dL Assessment and Plan Assessment: Influenza A infection Acute tracheobronchitis secondary to above Hepatomegaly with elevated liver enzymes, mostly hepatitis related to his viral illness Elevated lactic acid came back to normal Diabetes mellitus Hypertension Hyperlipidemia Sleep apnea on CPAP/BiPAP History of pulmonary embolism Mitral valve prolapse Gastroesophageal reflux disease History of asthma, not an active issue History of multiple ESWL status post ureteral stents History of C. diff chronic back pain status post back surgery in 2007 with decompression and fusion at [facility] Plan: This is a pleasant 53 years old male who presents with influenza. Continue with Tamiflu, and Levaquin and steroids, continue with hydration. Following recommendation by loss prevention research engineer. Follow-up recommendation by ux engineer. Continue with Levemir Labs and medication were reviewed.. Continue same treatment. Continue with symptomatic treatment. Resume home medication. Monitor lytes and vitals. DVT and GI prophylaxis. Further recommendations of the clinical course of the patient DVT prophylaxis: Subcutaneous heparin GI Prophylaxis: Pepcid PT/OT: Pending Prognosis is guarded
[2019-08-28] MEDS ORDERED: ONDANSETRON 4 MG/2 ML VIAL IVP PRN (08:32)
[2019-08-28 10:44] LABS: ALT 69 U/L (4-49); AST 77 U/L (17-59); African American GFR (CKD) >90 (>60 ml/min/1.73 sqM); Albumin 4.1 g/dL (3.5-5.0); Alkaline Phosphatase 101 U/L (38-126); Anion Gap 13 mmol/L; Bilirubin, Delta 0.2 mg/dL (0.0-0.2); Bilirubin,Unconjugated 0.5 mg/dL (0.0-1.1); Blood Urea Nitrogen 18 mg/dL (9-20); Calcium 9.8 mg/dL (8.4-10.2); Carbon Dioxide 21 mmol/L (22-30); Chloride 99 mmol/L (98-107); Glucose 394 mg/dL (74-99); Non-African American GFR(CKD) >90 (>60 ml/min/1.73 sqM); Sodium 133 mmol/L (137-145); Total Bilirubin 0.7 mg/dL (0.2-1.3); Total Protein 6.8 g/dL (6.3-8.2)
[2019-08-28 10:45] LABS: Basophils % (A) 0 %; Eosinophils % (A) 0 %; HCT 45.5 % (39.0-53.0); HGB 14.6 gm/dL (13.0-17.5); Lymphocytes # (A) 0.5 k/uL (1.0-4.8); Lymphocytes % (A) 7 %; MCH 27.4 pg (25.0-35.0); MCHC 32.2 g/dL (31.0-37.0); MCV 85.3 fL (80.0-100.0); Mean Platelet Volume 7.5; Monocytes # (A) 0.1 k/uL (0-1.0); Monocytes % (A) 1 %; Neutrophils # (A) 6.3 k/uL (1.3-7.7); Neutrophils % (A) 90 %; Platelet Count 264 k/uL (150-450); RBC 5.34 m/uL (4.30-5.90); RDW 13.8 % (11.5-15.5)
[2019-08-28 12:06] LABS: Glucose,Whole Blood 290 mg/dL (75-99)
[2019-08-28] MEDS ORDERED: IPRATROPIUM-ALBUTEROL 3 ML NEB INHALATION PRN (13:01)
--- NOTE | 2019-08-28 13:03 | P.PN ---
Subjective Progress Note Date: 08/28/19 A pleasant 53-year-old male patient, morbidly obese, history of mild intermittent bronchial asthma, diabetes mellitus hypertension and hyperlipidemia and remote history of pulmonary embolism along with history of obstructive sleep apnea maintained on CPAP therapy. The patient got sick approximately she days back. He was visiting another friend at [facility] where he got quite uncomfortable, sick, tachycardic, congested and he started having increased cough. He was taken to the ED and he was suggested to stay overnight however the patient up leaving the hospital. He came in to our ED with similar complaints of chest congestion wheezing shortness of breath and increased respiratory distress. Denies having any fevers. His temperature was 99.8 in the ED. His vitals were stable. He was slightly tachypneic. His blood sugars were slightly elevated. Lactic acid level was at 2.9. LFTs showed some mild abnormalities with elevation of AST compared today of the. The bilirubin was within normal limits. Influenza screen was positive for influenza A. Troponin first set was 0.012. EKG showed no acute abnormalities. Chest x-ray shows some increased interstitial markings. There was no evidence of any clear airspace disease or pneumonia. The patient was started on Tamiflu. The patient was started on bronchodilators and steroids and the patient was admitted to the hospital. He is cardiac catheterization from 2 years back in 2017 was within normal limits. On today's evaluation, the patient states that his improvement has been limited. I'm seeing on follow-up on 08/28/2019. I saw him yesterday in the emergency department. He was diagnosed having an acute influenza taken bronchitis with an acute asthma exacerbation. He was extensively bronchospastic and wheezy. On examination he is moving better air compared to yesterday. He seems to be much less bronchospastic and wheezy on today's evaluation. No fever. He did have some loose diarrhea 3 times. I think it's worthwhile to check stool for C. diff. He remains on Tamiflu. He remains on IV Solu Medrol 40 mg every 12 hours. He has developed some steroid-induced hyperglycemia. Objective - Vital Signs Vital signs: Vital Signs Temp 98.3 F 08/28/19 05:17 Pulse 78 08/28/19 11:20 Resp 18 08/28/19 05:17 BP 118/81 08/28/19 05:17 Pulse Ox 96 08/28/19 05:17 Intake & Output 08/27/19 08/28/19 08/28/19 18:59 06:59 18:59 Intake Total 360 Balance 360 Intake: Oral 360 Other: Voiding Method Toilet # Voids 1 2 # Bowel Movements 1 1 - Exam Gen. appearance, comfortable no acute distress obese Head exam was generally normal. There was no scleral icterus or corneal arcus. Mucous membranes were moist. Neck was supple and without jugular venous distension, thyromegaly, or carotid bruits. Carotids were easily palpable bilaterally. There was no adenopathy. Lymphatic less for and the patient has significant crowding of the posterior oropharynx. Lungs sounds are diminished and there is some scattered expiratory wheezes throughout the lung turner bilaterally. No chest wall deformity. Cardiac exam revealed the PMI to be normally situated and sized. The rhythm was regular and no extrasystoles were noted during several minutes of auscultation. The first and second heart sounds were normal and physiologic splitting of the second heart sound was noted. There were no murmurs, rubs, clicks, or gallops. Abdominal exam revealed normal bowel sounds. The abdomen was soft, non-tender, and without masses, organomegaly, or appreciable enlargement of the abdominal aorta. Examination of the extremities revealed easily palpable radial, femoral and pedal pulses. There was no cyanosis, clubbing or edema. Examination of the skin revealed no evidence of significant rashes, suspicious appearing nevi or other concerning lesions. Neurologically awake and alert and there is no focal neurological deficits Psychiatric negative for anxiety or depression Examination of the skin revealed no evidence of significant rashes, suspicious appearing nevi or other concerning lesions. - Labs CBC & Chem 7: 08/28/19 09:53 08/28/19 09:53 Labs: Abnormal Lab Results - Last 24 Hours (Table) 08/27/19 08/27/19 08/28/19 Range/Units 17:00 21:25 07:24 Lymphocytes # (1.0-4.8) k/uL Sodium (137-145) mmol/L Carbon Dioxide (22-30) mmol/L Glucose (74-99) mg/dL POC Glucose (mg/dL) 199 H 173 H 354 H (75-99) mg/dL AST (17-59) U/L ALT (4-49) U/L 08/28/19 08/28/19 08/28/19 Range/Units 09:53 09:53 12:03 Lymphocytes # 0.5 L (1.0-4.8) k/uL Sodium 133 L (137-145) mmol/L Carbon Dioxide 21 L (22-30) mmol/L Glucose 394 H (74-99) mg/dL POC Glucose (mg/dL) 290 H (75-99) mg/dL AST 77 H (17-59) U/L ALT 69 H (4-49) U/L Assessment and Plan Plan: 1 acute influenza a tracheobronchitis with secondary asthma exacerbation. The patient is quite symptomatic bronchospastic wheezing shortness of breath. Underlying early interstitial pneumonia cannot be completely excluded. The patient was started on Tamiflu. The patient is also started on a combination of bronchodilators and steroids. On today's evaluation of 08/28/2019, clinically still symptomatic although on examination there is improved air entry and much less bronchospastic and wheezy compared to yesterday. We'll continue the same treatment for another 24 hours anticipating further improvement. 2 chronic asthmatic bronchitis with exacerbation 3 obesity with BMI 41.6 4 obstructive sleep apnea maintained on CPAP therapy 5 coronary artery disease 6 diabetes mellitus 7 hypertension 8 remote history of pulmonary embolism, currently on no anticoagulants 9 comorbidities all mentioned above in history of present illness, in addition to chronic back pain, previous back and neck surgeries and the patient is currently on medical disability. Plan Continue on Tamiflu Agree on IV Solu-Medrol and he was 40 mg every 6 hours and monitor the blood sugars Add Perforomist and Pulmicort neb treatments twice a day Monitor the blood sugar and watch for any steroid-induced hyperglycemia. The patient is currently on Lantus along with a sliding-scale coverage Droplet isolation ask to bring CPAP machine from home Chest x-ray reviewed, and the repeat chest x-ray will be done tomorrow We'll continue to follow
[2019-08-28 16:58] LABS: Glucose,Whole Blood 274 mg/dL (75-99)
[2019-08-28 20:30] LABS: Glucose,Whole Blood 285 mg/dL (75-99)
[2019-08-28] MEDS: FORMOTEROL FUMARATE 20 MCG/2 ML NEBU INHALATION SCH (20:59)
[2019-08-28] MEDS: BUDESONIDE 1 MG/2 ML NEBU INHALATION SCH (20:59)
[2019-08-28] MEDS: INSULIN DETEMIR (LEVEMIR) 100 UNIT/ML SYR SQ SCH (21:12)
[2019-08-28] MEDS ORDERED: INSULIN DETEMIR (LEVEMIR) 100 UNIT/ML SYR SQ ONE (22:15)
[2019-08-29] MEDS: methylPREDNISolone SOD SUCCI 40 MG/ML 1 ML VIAL IV SCH ×3 (00:38→11:05)
[2019-08-29] MEDS: HYDROcodone/APAP 10-325MG 1 EACH TAB PO PRN ×3 (02:41→17:27)
--- NOTE | 2019-08-29 07:00 | P.PN ---
Subjective This is a pleasant 53 years old male with past medical history of asthma, chest pain, diabetes mellitus, GERD, hyperlipidemia, hypertension, pulmonary embolism, multiple ESWL status post ureteral stent, C. diff He presents this time because of central chest pain of 2 days' duration, not radiating to the back about 10/10, down to 5/10 currently, felt like sharp increased by deep breathing and coughing. Associated with dyspnea which was the main problem for him at some exertional dizziness and low-grade fever. Also patient was covering was some greenish phlegm He denies alcohol or illicit drugs He was recently admitted to the hospital for 2 days for his diabetic problem No abdominal complaints or change in urine or bowel habits On admission patient had low-grade fever of 99.8. Risks of Vitas looks stable, he is slightly tachypneic at 20/m. BMP is unremarkable. Sugar is 200-400. Troponin is negative. He has elevated lactic acid 2.9 came back to normal at 1.2. Liver enzymes slightly elevated at AST 67 and ALT 52, bilirubin is normal 0.6, sodium 132, rest of BMP is unremarkable. Troponins negative less than 0.012. Influenza A is positive. Patient was started on Tamiflu and emergency room and normal saline at 100 mL per hour EKG: Sinus tachycardia at [address]-T abnormality, DC is 474. Chest x-ray: No acute process and bilateral pleural thickening by a radiologist MAPS was checked and he is on Dietrich 10 mg, was started on Dilaudid and I discussed with him and he agrees to be tapered off gradually lowered to day to every 8 hours instead of every 4 hours. Cardiology team already consulted 08/27/2019 Patient still feeling dyspneic with some pleuritic-like chest pain central and on the rib cage especially in the right lower side, he still have coughing with greenish phlegm, Robitussin is added, he can walk to the restroom but he is dizzy at times, vitals stable, no fever, sodium 136, creatinine 0.7, sugar controlled around 196-247, magnesium is normal 2.0. Is slightly worsened, we'll check liver ultrasound and hepatitis panel. Patient continuous on Tamiflu and normal saline at 75 mL/h, his Levemir 23 units and the glipizide 2.5 mg as well as aspirin. 08/28/2019 Patient still with respiratory distress, he has dyspnea and cough with green phlegm, patient dizziness improved with IV fluid however patient started having diarrhea this morning 3, he had a regular bowel movement yesterday, no abdominal pain, no nausea vomiting. He is hemodynamically stable. Liver Enzymes were trending up slightly, hepatitis panel was negative, liver ultrasound showing hepatoma medially suspicious for hepatitis, hepatocellular disease versus other. Patient informed with this problem. We'll check for C. diff continue with normal saline at 75 mL/h. Continue with Tamiflu and Solu- Medrol. Continue monitor sugar. Diesel Fitter Mechanic evaluated the patient and recommended a stress test after his epidural was infection resolves, patient informed and he agrees. 08/29/2019 Patient feels some improvement, it looks more comfortable however he still complaining of from dyspnea especially on exertion and with cough and is still mildly dizzy with some chest tightness although the recent looks improved. His strength is slightly better as well. Patient appropriately gradually. Repeat x-ray and labs are ordered and pending. Chest x-ray looks clear pending final report. Patient aware he needs stress test after his influenza improves as per senior asp net developer Patient liver enzymes started improving yesterday, hepatitis panel negative, ultrasound showing hepatomegaly and patient informed. Looks like secondary to his influenza infection and is improving gradually. Hemodynamically stable, sugar on the high side due to steroid effect, his Levemir decreased from 23 units on admission to 35 units Patient remains on Tamiflu, prior dose of Solu-Medrol and glipizide and aspirin Objective - Vital Signs Vital signs: Vital Signs Temp 98.4 F 08/29/19 06:11 Pulse 86 08/29/19 06:11 Resp 16 08/29/19 06:11 BP 128/76 08/29/19 06:11 Pulse Ox 96 08/29/19 06:11 Intake & Output 08/28/19 08/28/19 08/29/19 06:59 18:59 06:59 Other: Voiding Method Toilet Toilet # Voids 2 2 2 # Bowel Movements 1 - Exam GENERAL: The patient is alert and oriented x3, not in any acute distress. Well developed, well nourished. HEENT: Pupils are round and equally reacting to light. EOMI. No scleral icterus. No conjunctival pallor. Normocephalic, atraumatic. No pharyngeal erythema. No thyromegaly. CARDIOVASCULAR: S1 and S2 present. No murmurs, rubs, or gallops. -PULMONARY: Chest is clear to auscultation, bilateral expiratory wheezing however it looks, from the upper airways as well ABDOMEN: Soft, nontender, nondistended, normoactive bowel sounds. No palpable organomegaly. MUSCULOSKELETAL: No joint swelling or deformity. EXTREMITIES: No cyanosis, clubbing, or pedal edema. NEUROLOGICAL: Gross neurological examination did not reveal any focal deficits. SKIN: No rashes. No petechiae - Labs CBC & Chem 7: 08/28/19 09:53 08/28/19 09:53 Labs: Abnormal Lab Results - Last 24 Hours (Table) 08/28/19 08/28/19 08/28/19 Range/Units 07:24 09:53 09:53 Lymphocytes # 0.5 L (1.0-4.8) k/uL Sodium 133 L (137-145) mmol/L Carbon Dioxide 21 L (22-30) mmol/L Glucose 394 H (74-99) mg/dL POC Glucose (mg/dL) 354 H (75-99) mg/dL AST 77 H (17-59) U/L ALT 69 H (4-49) U/L 08/28/19 08/28/19 08/28/19 Range/Units 12:03 16:54 20:28 Lymphocytes # (1.0-4.8) k/uL Sodium (137-145) mmol/L Carbon Dioxide (22-30) mmol/L Glucose (74-99) mg/dL POC Glucose (mg/dL) 290 H 274 H 285 H (75-99) mg/dL AST (17-59) U/L ALT (4-49) U/L Assessment and Plan Assessment: Influenza A infection Acute tracheobronchitis secondary to above Hepatomegaly with elevated liver enzymes, mostly hepatitis related to his viral illness Elevated lactic acid came back to normal Diabetes mellitus Hypertension Hyperlipidemia Sleep apnea on CPAP/BiPAP History of pulmonary embolism Mitral valve prolapse Gastroesophageal reflux disease History of asthma, not an active issue History of multiple ESWL status post ureteral stents History of C. diff chronic back pain status post back surgery in 2007 with decompression and fusion at [facility] Plan: This is a pleasant 53 years old male who presents with influenza. Continue with Tamiflu, and Levaquin and steroids, continue with hydration. Following recommendation by high school french teacher. Follow-up recommendation by senior asp net developer. Continue with Levemir Labs and medication were reviewed.. Continue same treatment. Continue with symptomatic treatment. Resume home medication. Monitor lytes and vitals. DVT and GI prophylaxis. Further recommendations of the clinical course of the patient DVT prophylaxis: Subcutaneous heparin GI Prophylaxis: Pepcid PT/OT: Pending Prognosis is guarded
[2019-08-29 07:11] LABS: Glucose,Whole Blood 273 mg/dL (75-99)
[2019-08-29] MEDS: ENOXAPARIN 40 MG/0.4 ML SYRINGE SQ SCH (07:11)
[2019-08-29] MEDS: CARVEDILOL 12.5 MG TAB PO SCH ×2 (07:11→17:23)
[2019-08-29] MEDS: OSELTAMIVIR 75 MG CAP PO SCH ×2 (07:11→21:11)
[2019-08-29] MEDS: ASPIRIN 325 MG TAB PO SCH (07:11)
[2019-08-29] MEDS: DILTIAZEM CD 300 MG CAP.ER.24H PO SCH (07:12)
[2019-08-29] MEDS ORDERED: INSULIN DETEMIR (LEVEMIR) 100 UNIT/ML SYR SQ ONE (07:30)
[2019-08-29] MEDS: INSULIN ASPART (NovoLOG) 100 UNIT/ML VIAL SQ SCH ×3 (07:35→17:23)
[2019-08-29] MEDS: HYDROmorphone 1 MG/ML 1 ML SYRINGE IVP PRN ×3 (07:57→15:59)
[2019-08-29] MEDS: IPRATROPIUM-ALBUTEROL 3 ML NEB INHALATION SCH ×3 (08:07→20:27)
[2019-08-29] MEDS: BUDESONIDE 1 MG/2 ML NEBU INHALATION SCH ×2 (08:07→20:27)
[2019-08-29] MEDS: FORMOTEROL FUMARATE 20 MCG/2 ML NEBU INHALATION SCH ×2 (08:07→20:27)
[2019-08-29 09:43] LABS: ALT 50 U/L (4-49); AST 33 U/L (17-59); African American GFR (CKD) >90 (>60 ml/min/1.73 sqM); Alkaline Phosphatase 94 U/L (38-126); Anion Gap 14 mmol/L; Bilirubin, Delta 0.1 mg/dL (0.0-0.2); Bilirubin,Unconjugated 0.7 mg/dL (0.0-1.1); Blood Urea Nitrogen 18 mg/dL (9-20); Calcium 9.4 mg/dL (8.4-10.2); Carbon Dioxide 19 mmol/L (22-30); Chloride 100 mmol/L (98-107); Glucose 391 mg/dL (74-99); Non-African American GFR(CKD) >90 (>60 ml/min/1.73 sqM); Potassium 4.6 mmol/L (3.5-5.1); Sodium 133 mmol/L (137-145); Total Bilirubin 0.8 mg/dL (0.2-1.3); Total Protein 6.8 g/dL (6.3-8.2)
[2019-08-29 09:49] LABS: Basophils % (A) 0 %; Eosinophils % (A) 0 %; HCT 41.4 % (39.0-53.0); HGB 13.4 gm/dL (13.0-17.5); Lymphocytes # (A) 0.7 k/uL (1.0-4.8); Lymphocytes % (A) 7 %; MCH 27.7 pg (25.0-35.0); MCHC 32.4 g/dL (31.0-37.0); MCV 85.4 fL (80.0-100.0); Mean Platelet Volume 7.7; Monocytes # (A) 0.2 k/uL (0-1.0); Monocytes % (A) 2 %; Neutrophils # (A) 7.9 k/uL (1.3-7.7); Neutrophils % (A) 90 %; Platelet Count 297 k/uL (150-450); RBC 4.84 m/uL (4.30-5.90); RDW 13.6 % (11.5-15.5); WBC 8.8 k/uL (3.8-10.6)
--- NOTE | 2019-08-29 11:13 | XR ---
EXAMINATION TYPE: XR chest 1V DATE OF EXAM: 08/29/2019 COMPARISON: Prior chest 08/25/2019, CT 07/24/2019 HISTORY: Follow-up, abnormal chest x-ray TECHNIQUE: Single frontal view of the chest is obtained. FINDINGS: There is no focal air space opacity, pleural effusion, or pneumothorax seen. The cardiac silhouette size is stable, overlying enlarged appearance likely due to prominent epicardial fat. Th e osseous structures are stable, suspect postprocedural changes to the cervical spine. Pleural thicke jamie noted along the lateral pleural margins bilaterally. IMPRESSION: No acute process. Stable findings.
--- NOTE | 2019-08-29 11:57 | P.PN ---
Subjective Progress Note Date: 08/29/19 A pleasant 53-year-old male patient, morbidly obese, history of mild intermittent bronchial asthma, diabetes mellitus hypertension and hyperlipidemia and remote history of pulmonary embolism along with history of obstructive sleep apnea maintained on CPAP therapy. The patient got sick approximately she days back. He was visiting another friend at [facility] where he got quite uncomfortable, sick, tachycardic, congested and he started having increased cough. He was taken to the ED and he was suggested to stay overnight however the patient up leaving the hospital. He came in to our ED with similar complaints of chest congestion wheezing shortness of breath and increased respiratory distress. Denies having any fevers. His temperature was 99.8 in the ED. His vitals were stable. He was slightly tachypneic. His blood sugars were slightly elevated. Lactic acid level was at 2.9. LFTs showed some mild abnormalities with elevation of AST compared today of the. The bilirubin was within normal limits. Influenza screen was positive for influenza A. Troponin first set was 0.012. EKG showed no acute abnormalities. Chest x-ray shows some increased interstitial markings. There was no evidence of any clear airspace disease or pneumonia. The patient was started on Tamiflu. The patient was started on bronchodilators and steroids and the patient was admitted to the hospital. He is cardiac catheterization from 2 years back in 2017 was within normal limits. On today's evaluation, the patient states that his improvement has been limited. I'm seeing on follow-up on 08/28/2019. I saw him yesterday in the emergency department. He was diagnosed having an acute influenza taken bronchitis with an acute asthma exacerbation. He was extensively bronchospastic and wheezy. On examination he is moving better air compared to yesterday. He seems to be much less bronchospastic and wheezy on today's evaluation. No fever. He did have some loose diarrhea 3 times. I think it's worthwhile to check stool for C. diff. He remains on Tamiflu. He remains on IV Solu Medrol 40 mg every 12 hours. He has developed some steroid-induced hyperglycemia. On today's evaluation of 08/29/2019 the patient is improving. Less bronchospastic and wheezy. He is being treated for an acute influenza tracheobronchitis complicated by significant bronchospasm and wheezing. On yesterday's evaluation I had to intensify his IV Solu-Medrol and I also added a combination of Perforomist and Pulmicort nebulized treatments. Obviously things have improved and the patient is less short of breath although not completely recovered. No fever. No chills. He is currently on room air oxygen. Blood sugar is elevated due to steroids. No other significant events overnight. Objective - Vital Signs Vital signs: Vital Signs Temp 98.4 F 08/29/19 06:11 Pulse 84 08/29/19 08:30 Resp 16 08/29/19 06:11 BP 128/76 08/29/19 06:11 Pulse Ox 96 08/29/19 08:10 Intake & Output 08/28/19 08/29/19 08/29/19 18:59 06:59 18:59 Other: Voiding Method Toilet Toilet Toilet # Voids 2 2 3 # Bowel Movements 1 - Exam Gen. appearance, comfortable no acute distress obese Head exam was generally normal. There was no scleral icterus or corneal arcus. Mucous membranes were moist. Neck was supple and without jugular venous distension, thyromegaly, or carotid bruits. Carotids were easily palpable bilaterally. There was no adenopathy. Lymphatic less for and the patient has significant crowding of the posterior oropharynx. Lungs sounds are diminished and adequate air entry bilaterally, less bronchospastic and wheezy. Cardiac exam revealed the PMI to be normally situated and sized. The rhythm was regular and no extrasystoles were noted during several minutes of auscultation. The first and second heart sounds were normal and physiologic splitting of the second heart sound was noted. There were no murmurs, rubs, clicks, or gallops. Abdominal exam revealed normal bowel sounds. The abdomen was soft, non-tender, and without masses, organomegaly, or appreciable enlargement of the abdominal aorta. Examination of the extremities revealed easily palpable radial, femoral and pedal pulses. There was no cyanosis, clubbing or edema. Examination of the skin revealed no evidence of significant rashes, suspicious appearing nevi or other concerning lesions. Neurologically awake and alert and there is no focal neurological deficits Psychiatric negative for anxiety or depression Examination of the skin revealed no evidence of significant rashes, suspicious appearing nevi or other concerning lesions. - Labs CBC & Chem 7: 08/29/19 09:02 08/29/19 09:02 Labs: Abnormal Lab Results - Last 24 Hours (Table) 08/28/19 08/28/19 08/28/19 Range/Units 12:03 16:54 20:28 Neutrophils # (1.3-7.7) k/uL Lymphocytes # (1.0-4.8) k/uL Sodium (137-145) mmol/L Carbon Dioxide (22-30) mmol/L Glucose (74-99) mg/dL POC Glucose (mg/dL) 290 H 274 H 285 H (75-99) mg/dL ALT (4-49) U/L 08/29/19 08/29/19 08/29/19 Range/Units 07:06 09:02 09:02 Neutrophils # 7.9 H (1.3-7.7) k/uL Lymphocytes # 0.7 L (1.0-4.8) k/uL Sodium 133 L (137-145) mmol/L Carbon Dioxide 19 L (22-30) mmol/L Glucose 391 H (74-99) mg/dL POC Glucose (mg/dL) 273 H (75-99) mg/dL ALT 50 H (4-49) U/L Assessment and Plan Plan: 1 acute influenza a tracheobronchitis with secondary asthma exacerbation. Clinically improving 2 chronic asthmatic bronchitis with exacerbation 3 obesity with BMI 41.6 4 obstructive sleep apnea maintained on CPAP therapy 5 coronary artery disease 6 diabetes mellitus 7 hypertension 8 remote history of pulmonary embolism, currently on no anticoagulants 9 comorbidities all mentioned above in history of present illness, in addition to chronic back pain, previous back and neck surgeries and the patient is currently on medical disability. Plan Continue on Tamiflu This continued IV Solu-Medrol and put the patient prednisone burst taper starting with 40 mg Perforomist and Pulmicort neb treatments twice a day Monitor the blood sugar and watch for any steroid-induced hyperglycemia. The patient is currently on Lantus along with a sliding-scale coverage Droplet isolation Chronically improving. Reevaluate in a.m. Possible discharge within the next 24-48 hours.
[2019-08-29 12:07] LABS: Glucose,Whole Blood 272 mg/dL (75-99)
[2019-08-29 17:10] LABS: Glucose,Whole Blood 392 mg/dL (75-99)
[2019-08-29] MEDS: SODIUM CHLORIDE 0.9% 1,000 ML IV SCH (17:30)
[2019-08-29 20:51] LABS: Glucose,Whole Blood 252 mg/dL (75-99)
[2019-08-29] MEDS ORDERED: INSULIN DETEMIR (LEVEMIR) 100 UNIT/ML SYR SQ SCH (21:00)
[2019-08-29] MEDS: INSULIN DETEMIR (LEVEMIR) 100 UNIT/ML SYR SQ SCH (21:11)
[2019-08-30] MEDS: HYDROmorphone 1 MG/ML 1 ML SYRINGE IVP PRN ×4 (00:01→23:47)
[2019-08-30] MEDS: HYDROcodone/APAP 10-325MG 1 EACH TAB PO PRN ×3 (04:02→18:01)
[2019-08-30 07:11] LABS: Glucose,Whole Blood 267 mg/dL (75-99)
[2019-08-30] MEDS: FORMOTEROL FUMARATE 20 MCG/2 ML NEBU INHALATION SCH ×2 (07:19→18:10)
[2019-08-30] MEDS: IPRATROPIUM-ALBUTEROL 3 ML NEB INHALATION SCH ×3 (07:19→18:12)
[2019-08-30] MEDS: BUDESONIDE 1 MG/2 ML NEBU INHALATION SCH ×2 (07:19→18:10)
[2019-08-30] MEDS: ASPIRIN 325 MG TAB PO SCH (07:23)
[2019-08-30] MEDS: OSELTAMIVIR 75 MG CAP PO SCH (07:23)
[2019-08-30] MEDS: INSULIN ASPART (NovoLOG) 100 UNIT/ML VIAL SQ SCH ×3 (07:24→17:19)
[2019-08-30] MEDS: CARVEDILOL 12.5 MG TAB PO SCH ×2 (07:24→17:09)
[2019-08-30] MEDS: predniSONE 20 MG TAB PO SCH (07:24)
[2019-08-30] MEDS: ENOXAPARIN 40 MG/0.4 ML SYRINGE SQ SCH (07:25)
[2019-08-30] MEDS: DILTIAZEM CD 300 MG CAP.ER.24H PO SCH (07:25)
[2019-08-30 09:47] LABS: Basophils % (A) 0 %; Eosinophils % (A) 0 %; HCT 42.5 % (39.0-53.0); HGB 14.2 gm/dL (13.0-17.5); Lymphocytes # (A) 1.6 k/uL (1.0-4.8); Lymphocytes % (A) 17 %; MCHC 33.5 g/dL (31.0-37.0); MCV 83.5 fL (80.0-100.0); Monocytes # (A) 0.7 k/uL (0-1.0); Monocytes % (A) 7 %; Neutrophils # (A) 7.3 k/uL (1.3-7.7); Neutrophils % (A) 75 %; Platelet Count 237 k/uL (150-450); RBC 5.09 m/uL (4.30-5.90); RDW 13.6 % (11.5-15.5); WBC 9.7 k/uL (3.8-10.6)
[2019-08-30 09:57] LABS: African American GFR (CKD) >90 (>60 ml/min/1.73 sqM); Anion Gap 13 mmol/L; Blood Urea Nitrogen 22 mg/dL (9-20); Calcium 9.5 mg/dL (8.4-10.2); Carbon Dioxide 20 mmol/L (22-30); Chloride 104 mmol/L (98-107); Glucose 215 mg/dL (74-99); Non-African American GFR(CKD) >90 (>60 ml/min/1.73 sqM); Potassium 4.5 mmol/L (3.5-5.1); Sodium 137 mmol/L (137-145)
[2019-08-30 11:41] LABS: Glucose,Whole Blood 313 mg/dL (75-99)
--- NOTE | 2019-08-30 13:28 | P.PN ---
Subjective Progress Note Date: 08/30/19 A pleasant 53-year-old male patient, morbidly obese, history of mild intermittent bronchial asthma, diabetes mellitus hypertension and hyperlipidemia and remote history of pulmonary embolism along with history of obstructive sleep apnea maintained on CPAP therapy. The patient got sick approximately she days back. He was visiting another friend at [facility] where he got quite uncomfortable, sick, tachycardic, congested and he started having increased cough. He was taken to the ED and he was suggested to stay overnight however the patient up leaving the hospital. He came in to our ED with similar complaints of chest congestion wheezing shortness of breath and increased respiratory distress. Denies having any fevers. His temperature was 99.8 in the ED. His vitals were stable. He was slightly tachypneic. His blood sugars were slightly elevated. Lactic acid level was at 2.9. LFTs showed some mild abnormalities with elevation of AST compared today of the. The bilirubin was within normal limits. Influenza screen was positive for influenza A. Troponin first set was 0.012. EKG showed no acute abnormalities. Chest x-ray shows some increased interstitial markings. There was no evidence of any clear airspace disease or pneumonia. The patient was started on Tamiflu. The patient was started on bronchodilators and steroids and the patient was admitted to the hospital. He is cardiac catheterization from 2 years back in 2017 was within normal limits. On today's evaluation, the patient states that his improvement has been limited. I'm seeing on follow-up on 08/28/2019. I saw him yesterday in the emergency department. He was diagnosed having an acute influenza taken bronchitis with an acute asthma exacerbation. He was extensively bronchospastic and wheezy. On examination he is moving better air compared to yesterday. He seems to be much less bronchospastic and wheezy on today's evaluation. No fever. He did have some loose diarrhea 3 times. I think it's worthwhile to check stool for C. diff. He remains on Tamiflu. He remains on IV Solu Medrol 40 mg every 12 hours. He has developed some steroid-induced hyperglycemia. On today's evaluation of 08/29/2019 the patient is improving. Less bronchospastic and wheezy. He is being treated for an acute influenza tracheobronchitis complicated by significant bronchospasm and wheezing. On yesterday's evaluation I had to intensify his IV Solu-Medrol and I also added a combination of Perforomist and Pulmicort nebulized treatments. Obviously things have improved and the patient is less short of breath although not completely recovered. No fever. No chills. He is currently on room air oxygen. Blood sugar is elevated due to steroids. No other significant events overnight. Days evaluation of 08/30/2019 and the patient for a follow-up. The patient was feeling better yesterday. Earlier this morning the patient had an acute asthmatic attack and the patient became short of breath and bronchospastic. He was given breathing treatments is improved. He is not fluid recovered. He thinks that he may benefit from another day of inpatient treatment with IV steroids. No angina. Chest is on and off sore. Is doing limited amount of activity. He is being treated for his influenza with Tamiflu. His and droplet isolation. Objective - Vital Signs Vital signs: Vital Signs Temp 99.6 F 08/30/19 04:47 Pulse 88 08/30/19 07:42 Resp 18 08/30/19 04:47 BP 147/84 08/30/19 04:47 Pulse Ox 95 08/30/19 04:47 Intake & Output 08/29/19 08/30/19 08/30/19 18:59 06:59 18:59 Intake Total 540 Balance 540 Intake: Oral 540 Other: Voiding Method Toilet Toilet Toilet # Voids 3 2 # Bowel Movements 1 - Exam Gen. appearance, comfortable no acute distress obese Head exam was generally normal. There was no scleral icterus or corneal arcus. Mucous membranes were moist. Neck was supple and without jugular venous distension, thyromegaly, or carotid bruits. Carotids were easily palpable bilaterally. There was no adenopathy. Lymphatic less for and the patient has significant crowding of the posterior oropharynx. Lungs sounds are diminished and adequate air entry bilaterally, less bronchospastic and wheezy. Cardiac exam revealed the PMI to be normally situated and sized. The rhythm was regular and no extrasystoles were noted during several minutes of auscultation. The first and second heart sounds were normal and physiologic splitting of the second heart sound was noted. There were no murmurs, rubs, clicks, or gallops. Abdominal exam revealed normal bowel sounds. The abdomen was soft, non-tender, and without masses, organomegaly, or appreciable enlargement of the abdominal aorta. Examination of the extremities revealed easily palpable radial, femoral and pedal pulses. There was no cyanosis, clubbing or edema. Examination of the skin revealed no evidence of significant rashes, suspicious appearing nevi or other concerning lesions. Neurologically awake and alert and there is no focal neurological deficits Psychiatric negative for anxiety or depression Examination of the skin revealed no evidence of significant rashes, suspicious appearing nevi or other concerning lesions. - Labs CBC & Chem 7: 08/30/19 07:42 08/30/19 07:42 Labs: Abnormal Lab Results - Last 24 Hours (Table) 08/29/19 08/29/19 08/30/19 Range/Units 17:04 20:50 07:08 Carbon Dioxide (22-30) mmol/L BUN (9-20) mg/dL Glucose (74-99) mg/dL POC Glucose (mg/dL) 392 H 252 H 267 H (75-99) mg/dL 08/30/19 08/30/19 Range/Units 07:42 11:39 Carbon Dioxide 20 L (22-30) mmol/L BUN 22 H (9-20) mg/dL Glucose 215 H (74-99) mg/dL POC Glucose (mg/dL) 313 H (75-99) mg/dL Assessment and Plan Plan: 1 acute influenza a tracheobronchitis with secondary asthma exacerbation. Patient is still being treated for influenza A in addition to asthma exacerbation with a combination of bronchodilators and systemic steroids. His wheezing has somewhat become more active as the patient was tapered to oral steroids. 2 chronic asthmatic bronchitis with exacerbation 3 obesity with BMI 41.6 4 obstructive sleep apnea maintained on CPAP therapy 5 coronary artery disease 6 diabetes mellitus 7 hypertension 8 remote history of pulmonary embolism, currently on no anticoagulants 9 comorbidities all mentioned above in history of present illness, in addition to chronic back pain, previous back and neck surgeries and the patient is currently on medical disability. Plan Continue on Tamiflu prednisone burst taper starting with 40 mg Perforomist and Pulmicort neb treatments twice a day Chronically improving. Reevaluate in a.m. Possible discharge within the next 24-48 hours.
[2019-08-30 16:59] LABS: Glucose,Whole Blood 276 mg/dL (75-99)
--- NOTE | 2019-08-30 17:09 | P.PN ---
Subjective Progress Note Date: 08/30/19 08/30/2019 patient is seen and evaluated for a follow-up. The patient reports that pulmonary evaluated him earlier in the morning and they think he sounds worse than yesterday. Earlier this morning the patient had an acute asthmatic attack and the patient became short of breath and bronchospastic. He was given breathing treatments is improved. He reports that pulmonary service thinks that he may benefit from another day of inpatient treatment with IV steroids. He is being treated for his influenza with Tamiflu. Remains in droplet isolation. Per pulmonary note patient is requesting to continue IV steroids We will continue IV steroids for another 24 hours and discharge patient home tomorrow; this was discussed with patient who refuses to comment on it Objective - Vital Signs Vital signs: Vital Signs Temp 99.6 F 08/30/19 04:47 Pulse 88 08/30/19 07:42 Resp 18 08/30/19 04:47 BP 147/84 08/30/19 04:47 Pulse Ox 95 08/30/19 04:47 Intake & Output 08/29/19 08/30/19 08/30/19 18:59 06:59 18:59 Intake Total 540 Balance 540 Intake: Oral 540 Other: Voiding Method Toilet Toilet Toilet # Voids 3 2 # Bowel Movements 1 - Exam PHYSICAL EXAMINATION: GENERAL: The patient is alert and oriented x3, not in any acute distress. Well developed, well nourished. HEENT: Pupils are round and equally reacting to light. EOMI. No scleral icterus. No conjunctival pallor. Normocephalic, atraumatic. No pharyngeal erythema. No thyromegaly. CARDIOVASCULAR: S1 and S2 present. No murmurs, rubs, or gallops. PULMONARY: Fair air entry with scattered wheezing and rhonchi. ABDOMEN: Soft, nontender, nondistended, normoactive bowel sounds. No palpable organomegaly. MUSCULOSKELETAL: No joint swelling or deformity. EXTREMITIES: No cyanosis, clubbing, or pedal edema. NEUROLOGICAL: Gross neurological examination did not reveal any focal deficits. SKIN: No rashes. - Labs CBC & Chem 7: 08/30/19 07:42 08/30/19 07:42 Labs: Abnormal Lab Results - Last 24 Hours (Table) 08/29/19 08/29/19 08/30/19 Range/Units 17:04 20:50 07:08 Carbon Dioxide (22-30) mmol/L BUN (9-20) mg/dL Glucose (74-99) mg/dL POC Glucose (mg/dL) 392 H 252 H 267 H (75-99) mg/dL 08/30/19 08/30/19 Range/Units 07:42 11:39 Carbon Dioxide 20 L (22-30) mmol/L BUN 22 H (9-20) mg/dL Glucose 215 H (74-99) mg/dL POC Glucose (mg/dL) 313 H (75-99) mg/dL Assessment and Plan Assessment: 1 acute influenza a tracheobronchitis with secondary asthma exacerbation. Patient is still being treated for influenza A in addition to asthma exa cerbation with a combination of bronchodilators and systemic steroids. His wheezing has somewhat become more active as the patient was tapered to oral steroids. 2 chronic asthmatic bronchitis with exacerbation 3 obesity with BMI 41.6 4 obstructive sleep apnea maintained on CPAP therapy 5 coronary artery disease 6 diabetes mellitus 7 hypertension 8 remote history of pulmonary embolism, currently on no anticoagulants 9 comorbidities all mentioned above in history of present illness, in addition to chronic back pain, previous back and neck surgeries and the patient is currently on medical disability.
[2019-08-30] MEDS: SODIUM CHLORIDE 0.9% 1,000 ML IV SCH (17:10)
[2019-08-30 21:11] LABS: Glucose,Whole Blood 152 mg/dL (75-99)
[2019-08-30] MEDS: INSULIN DETEMIR (LEVEMIR) 100 UNIT/ML SYR SQ SCH (21:28)
[2019-08-31] MEDS: HYDROcodone/APAP 10-325MG 1 EACH TAB PO PRN ×2 (02:54→10:15)
[2019-08-31 07:12] LABS: Glucose,Whole Blood 151 mg/dL (75-99)
[2019-08-31] MEDS: IPRATROPIUM-ALBUTEROL 3 ML NEB INHALATION SCH ×2 (07:16→11:13)
[2019-08-31] MEDS: BUDESONIDE 1 MG/2 ML NEBU INHALATION SCH (07:16)
[2019-08-31] MEDS: FORMOTEROL FUMARATE 20 MCG/2 ML NEBU INHALATION SCH (07:16)
[2019-08-31 07:48] VITALS: TEMP 97.9
[2019-08-31] MEDS: predniSONE 20 MG TAB PO SCH (08:17)
[2019-08-31] MEDS: DILTIAZEM CD 300 MG CAP.ER.24H PO SCH (08:18)
[2019-08-31] MEDS: ASPIRIN 325 MG TAB PO SCH (08:18)
[2019-08-31] MEDS: CARVEDILOL 12.5 MG TAB PO SCH (08:18)
[2019-08-31] MEDS: HYDROmorphone 1 MG/ML 1 ML SYRINGE IVP PRN (08:18)
[2019-08-31] MEDS: ENOXAPARIN 40 MG/0.4 ML SYRINGE SQ SCH (08:19)
[2019-08-31] MEDS: INSULIN ASPART (NovoLOG) 100 UNIT/ML VIAL SQ SCH ×2 (08:19→13:30)
[2019-08-31 08:44] LABS: HGB 15.4 gm/dL (13.0-17.5); MCH 28.7 pg (25.0-35.0); MCHC 34.2 g/dL (31.0-37.0); MCV 83.9 fL (80.0-100.0); Mean Platelet Volume 8.2; Platelet Count 195 k/uL (150-450); RBC 5.36 m/uL (4.30-5.90); RDW 13.6 % (11.5-15.5); WBC 7.6 k/uL (3.8-10.6)
--- NOTE | 2019-08-31 10:48 | P.PN ---
Subjective Progress Note Date: 08/31/19 The patient is seen today in August 31 2019 in follow-up on the regular medical floor. He is awake and alert in no acute distress. Maintaining O2 saturation in the 90s on room air. He still has an occasional dry nonproductive cough. No fever chills or night sweats.White count 7.6. Hemoglobin 15.4. Glucose 151. He is continued on DuoNeb inhalations, [place] and Perforomist inhalations, oral prednisone. He has completed his course of Tamiflu. Objective - Vital Signs Vital signs: Vital Signs Temp 97.9 F 08/31/19 07:06 Pulse 100 08/31/19 07:39 Resp 21 08/31/19 07:06 BP 144/81 08/31/19 07:06 Pulse Ox 96 08/31/19 07:06 Intake & Output 08/30/19 08/31/19 08/31/19 18:59 06:59 18:59 Output Total 400 Balance -400 Output: Urine 400 Other: Voiding Method Toilet Toilet # Voids 2 0 # Bowel Movements 1 0 - Exam GENERAL EXAM: Alert, obese 53-year-old gentleman, on room air, comfortable in no apparent distress. HEAD: Normocephalic. EYES: Normal reaction of pupils, equal size. NOSE: Clear with pink turbinates. THROAT: No erythema or exudates. NECK: No masses, no JVD. CHEST: No chest wall deformity. LUNGS: Equal air entry with no crackles, wheeze, rhonchi or dullness. CVS: S1 and S2 normal with no audible murmur, regular rhythm. ABDOMEN: No hepatosplenomegaly, normal bowel sounds, no guarding or rigidity. SPINE: No scoliosis or deformity SKIN: No rashes CENTRAL NERVOUS SYSTEM: No focal deficits, tone is normal in all 4 extremities. EXTREMITIES: There is no peripheral edema. No clubbing, no cyanosis. Peripheral pulses are intact. - Labs CBC & Chem 7: 08/31/19 07:39 08/30/19 07:42 Labs: Abnormal Lab Results - Last 24 Hours (Table) 08/30/19 08/30/19 08/30/19 Range/Units 11:39 16:57 21:08 POC Glucose (mg/dL) 313 H 276 H 152 H (75-99) mg/dL 08/31/19 Range/Units 07:00 POC Glucose (mg/dL) 151 H (75-99) mg/dL Assessment and Plan Assessment: 1 acute influenza A tracheobronchitis with secondary asthma exacerbation. Improved. 2 chronic asthmatic bronchitis with exacerbation 3 obesity with BMI 41.8 4 obstructive sleep apnea maintained on CPAP therapy 5 coronary artery disease 6 diabetes mellitus 7 hypertension 8 remote history of pulmonary embolism, currently on no anticoagulants 9 comorbidities all mentioned above in history of present illness, in addition to chronic back pain, previous back and neck surgeries and the patient is currently on medical disability. Plan The patient was seen and evaluated by Dr. Jorge He is cleared for discharge from the pulmonary standpoint Continue prednisone taper Continue rhonchi dilators and home pulmonary medications Follow-up in our office within 1-2 weeks' He is encouraged to call sooner with any recurrence of symptoms or other questions or concerns I, the cosigning physician, performed a history & physical examination of the patient. Lungs sounds are clear. Maintaining good O2 saturations in the 90s on room air. I discussed the assessment and plan of care with my nurse Yusra bullard. I attest to the above note as dictated by her.
[2019-08-31 10:54] LABS: Lymphocytes # (M) 2.58 k/uL (1.0-4.8); Monocytes # (M) 0.84 k/uL (0-1.0); Neutrophils # (M) 4.18 k/uL (1.3-7.7); Neutrophils % (M) 55 %; Nucleated Red Blood Cells 0 /100 WBC (0-0); Total Cells Counted 100
[2019-08-31 11:59] LABS: Glucose,Whole Blood 229 mg/dL (75-99)
[2019-08-31 13:11] VITALS: BP 145/68; PULSE 87; RESP 20
== END 2019-08-31 14:10 | disposition home or self-care (01) | DRG 194 ==
LOC: EC 15:18 → 1SOBS 18:52 → 3SCARD 21:07 → OBSVTOIN 08-27 09:26 → 6NMEDSUR 08-27 18:36
PROVIDERS: ADMIT Hospitalist; ATTEND Hospitalist
DX: J10.1 Influenza due to other identified influenza virus with other respiratory manifestations (principal); Z68.41 Body mass index [BMI] 40.0-44.9, adult; J44.0 Chronic obstructive pulmonary disease with (acute) lower respiratory infection; J44.1 Chronic obstructive pulmonary disease with (acute) exacerbation; J45.21 Mild intermittent asthma with (acute) exacerbation; E66.01 Morbid (severe) obesity due to excess calories; R16.0 Hepatomegaly, not elsewhere classified; K21.9 Gastro-esophageal reflux disease without esophagitis; J20.9 Acute bronchitis, unspecified; E11.65 Type 2 diabetes mellitus with hyperglycemia; T38.0X5A Adverse effect of glucocorticoids and synthetic analogues, initial encounter; G47.33 Obstructive sleep apnea (adult) (pediatric); I34.1 Nonrheumatic mitral (valve) prolapse; E78.5 Hyperlipidemia, unspecified; G89.29 Other chronic pain; M51.26 Other intervertebral disc displacement, lumbar region; M54.31 Sciatica, right side; I10 Essential (primary) hypertension; I25.10 Atherosclerotic heart disease of native coronary artery without angina pectoris; I25.2 Old myocardial infarction; Z79.4 Long term (current) use of insulin; Z79.899 Other long term (current) drug therapy; Z86.711 Personal history of pulmonary embolism; Z87.448 Personal history of other diseases of urinary system; Z86.19 Personal history of other infectious and parasitic diseases; Z86.14 Personal history of Methicillin resistant Staphylococcus aureus infection; Z87.11 Personal history of peptic ulcer disease; Z87.442 Personal history of urinary calculi; Z87.440 Personal history of urinary (tract) infections; Z87.81 Personal history of (healed) traumatic fracture; Z90.49 Acquired absence of other specified parts of digestive tract; Z98.1 Arthrodesis status; Z99.89 Dependence on other enabling machines and devices; Z98.890 Other specified postprocedural states; Z88.6 Allergy status to analgesic agent; Z88.1 Allergy status to other antibiotic agents; Z88.5 Allergy status to narcotic agent; Z88.8 Allergy status to other drugs, medicaments and biological substances; Z82.49 Family history of ischemic heart disease and other diseases of the circulatory system; Z83.49 Family history of other endocrine, nutritional and metabolic diseases; Z82.61 Family history of arthritis; Z80.9 Family history of malignant neoplasm, unspecified
CPT/HCPCS: 36415; 71045; 71046; 76705; 80048; 80053; 80061; 80074; 80076; 82550; 83605; 83735; 83880; 84484; 85025; 85610; 85730; 87502; 93005; 94640; 94760; 96361; 96374; 96375; 96376; 99285

== ENCOUNTER 2019-09-01 07:58 | Observation (INO) | payer OTHER ==
--- NOTE | 2019-09-01 08:33 | ED ---
General Adult HPI - General Chief complaint: Shortness of Breath Stated complaint: SIRENA/positive flu A/pneumonia Time Seen by Provider: 09/01/19 08:00 Source: patient, RN notes reviewed, old records reviewed Mode of arrival: EMS Limitations: no limitations - History of Present Illness Initial comments: This a 53-year-old male who presents to the emergency department stating he was just discharged from hospital yesterday. Patient states she was in for pneumonia and influenza. Patient states throughout the night he couldn't stop coughing and he describes chest pain radiating to his back secondary to sciatica back to the emergency department. Patient states he had a 99.6 fever this morning. Patient states his chest pain is there even when he is not coughing but it is worsened by coughing. Patient states he is coughing up some sputum. Patient states the chest pain is in the center of his chest. Patient denies any diaphoretic episodes. Patient denies any nausea. Patient states he is short of breath. Patient denies any abdominal pain. Patient denies nausea vomiting diarrhea. Patient denies any swelling to the legs or calf tenderness. - Related Data Home Medications Medication Instructions Recorded Confirmed Omeprazole [PriLOSEC] 20 mg PO DAILY 12/11/17 09/01/19 metFORMIN HCL [Glucophage] 500 mg PO BID 04/24/18 09/01/19 HYDROcodone/APAP 10-325MG [[place] 1 tab PO QID PRN 10/22/18 09/01/19 10-325] Carvedilol [Coreg] 12.5 mg PO BID 07/22/19 09/01/19 Hydrochlorothiazide 25 mg PO BID 07/22/19 09/01/19 glipiZIDE XL [Glucotrol XL] 5 mg PO DAILY 07/22/19 09/01/19 Atorvastatin [Lipitor] 20 mg PO DAILY 08/26/19 09/01/19 Insulin Glargine,Hum.rec.anlog 15 unit SQ HS 08/26/19 09/01/19 [Basaglar Kwikpen U-100] Lisinopril [Zestril] 40 mg PO DAILY 08/26/19 09/01/19 Diltiazem Cd [Cardizem Cd] 300 mg PO DAILY 09/01/19 09/01/19 Previous Rx's Medication Instructions Recorded predniSONE [Deltasone] 40 mg PO DAILY #5 tab 08/31/19 Allergies Allergy/AdvReac Type Severity Reaction Status Date / Time doxycycline Allergy Swelling Verified 09/01/19 10:18 ketorolac tromethamine Allergy Rash/Hives Verified 09/01/19 10:18 [From Toradol] morphine Allergy Rash/Hives Verified 09/01/19 10:18 metoclopramide HCl AdvReac Dystonic Verified 09/01/19 10:18 [From Reglan] Reaction prochlorperazine edisylate AdvReac Dystonic Verified 09/01/19 10:18 [From Compazine] Reaction prochlorperazine maleate AdvReac Dystonic Verified 09/01/19 10:18 [From Compazine] Reaction Review of Systems ROS Statement: Those systems with pertinent positive or pertinent negative responses have been documented in the HPI. ROS Other: All systems not noted in ROS Statement are negative. Past Medical History Past Medical History: Asthma, Chest Pain / Angina, Diabetes Mellitus, GERD/Reflux, Hyperlipidemia, Hypertension, Myocardial Infarction (MO), Mitral Valve Prolapse (MVP), Pulmonary Embolus (PE), Sleep Apnea/CPAP/BIPAP Additional Past Medical History / Comment(s): Obesity, chronic asthmatic bronchitis, previous history of pulmonary embolism, objective sleep apnea, diabetes mellitus, hypertension, hyperlipidemia, previous history of myocardial infarction with underlying coronary artery disease, renal cysts, chronic back pain secondary to herniated lumbar disc disease with symptoms of sciatica, history of right lower extremity fracture at the age of 13, history of C. diff colitis approximately 4 years ago, history of bleeding peptic ulcer, nephrolithiasis, previous history of UTI and secondary sepsis. Last Myocardial Infarction Date:: 2011 History of Any Multi-Drug Resistant Organisms: MRSA Date of last positivie culture/infection: 2016 MDRO Source:: left axilla Past Surgical History: Appendectomy, Back Surgery, Cholecystectomy, Heart Catheterization, Hernia Repair Additional Past Surgical History / Comment(s): 2007 back surgery with decompression fusion at [facility], 2011, 2016 cardiac cath, multiple ESWL/ureteral stents/ double J catheters, L inquinal hernia repair, PICC line for ABX for urosepsis-since removed., Hx of c-diff. Past Anesthesia/Blood Transfusion Reactions: No Reported Reaction Past Psychological History: No Psychological Hx Reported Smoking Status: Never smoker Past Alcohol Use History: None Reported Past Drug Use History: None Reported - Past Family History Father Family Medical History: Chest Pain / Angina Additional Family Medical History / Comment(s): "lung problems" Mother Family Medical History: Cancer, Chest Pain / Angina, Congestive Heart Failure (CHF), Osteoarthritis (OA), Thyroid Disorder General Exam - General Exam Comments Initial Comments: GENERAL: Patient is well-developed and well-nourished. Patient is nontoxic and well- hydrated and is in mild distress. ENT: Neck is soft and supple. No significant lymphadenopathy is noted. Oropharynx is clear. Moist mucous membranes. Neck has full range of motion without eliciting any pain. EYES: The sclera were anicteric and conjunctiva were pink and moist. Extraocular movements were intact and pupils were equal round and reactive to light. Eyelids were unremarkable. PULMONARY: Unlabored respirations. Good breath sounds bilaterally. No audible rales rhonchi or wheezing was noted. CARDIOVASCULAR: There is a regular rate and rhythm without any murmurs gallops or rubs. ABDOMEN: Soft and nontender with normal bowel sounds. SKIN: Skin is clear with no lesions or rashes and otherwise unremarkable. NEUROLOGIC: Patient is alert and oriented x3. Cranial nerves II through XII are grossly intact. Motor and sensory are also intact. Normal speech, volume and content. Symmetrical smile. MUSCULOSKELETAL: Normal extremities with adequate strength and full range of motion. No lower extremity swelling or edema. No calf tenderness. LYMPHATICS: No significant lymphadenopathy is noted PSYCHIATRIC: Normal psychiatric evaluation. 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 Patient was given aspirin and Nitropaste in the emergency department. Patient was asked for narcotics. - Lab Data Result diagrams: 09/01/19 09:44 09/01/19 09:44 Lab Results 09/01/19 09/01/19 09/01/19 Range/Units 09:44 09:44 09:44 WBC 9.6 (3.8-10.6) k/uL RBC 5.25 (4.30-5.90) m/uL Hgb 14.6 (13.0-17.5) gm/dL Hct 44.3 (39.0-53.0) % MCV 84.3 (80.0-100.0) fL MCH 27.9 (25.0-35.0) pg MCHC 33.0 (31.0-37.0) g/dL RDW 13.4 (11.5-15.5) % Plt Count 292 (150-450) k/uL Neutrophils % 65 % Lymphocytes % 26 % Monocytes % 6 % Eosinophils % 2 % Basophils % 0 % Neutrophils # 6.2 (1.3-7.7) k/uL Lymphocytes # 2.5 (1.0-4.8) k/uL Monocytes # 0.6 (0-1.0) k/uL Eosinophils # 0.2 (0-0.7) k/uL Basophils # 0.0 (0-0.2) k/uL Sodium 133 L (137-145) mmol/L Potassium 4.3 (3.5-5.1) mmol/L Chloride 104 (98-107) mmol/L Carbon Dioxide 18 L (22-30) mmol/L Anion Gap 11 mmol/L BUN 16 (9-20) mg/dL Creatinine 0.63 L (0.66-1.25) mg/dL Est GFR (CKD-EPI)AfAm >90 (>60 ml/min/1.73 sqM) Est GFR (CKD-EPI)NonAf >90 (>60 ml/min/1.73 sqM) Glucose 203 H (74-99) mg/dL Plasma Lactic Acid Edd 2.8 H* (0.7-2.0) mmol/L Calcium 8.9 (8.4-10.2) mg/dL Magnesium 1.8 (1.6-2.3) mg/dL Total Bilirubin 0.7 (0.2-1.3) mg/dL AST 37 (17-59) U/L ALT 47 (4-49) U/L Alkaline Phosphatase 107 (38-126) U/L Troponin I (0.000-0.034) ng/mL Total Protein 6.6 (6.3-8.2) g/dL Albumin 3.9 (3.5-5.0) g/dL 09/01/19 Range/Units 09:44 WBC (3.8-10.6) k/uL RBC (4.30-5.90) m/uL Hgb (13.0-17.5) gm/dL Hct (39.0-53.0) % MCV (80.0-100.0) fL MCH (25.0-35.0) pg MCHC (31.0-37.0) g/dL RDW (11.5-15.5) % Plt Count (150-450) k/uL Neutrophils % % Lymphocytes % % Monocytes % % Eosinophils % % Basophils % % Neutrophils # (1.3-7.7) k/uL Lymphocytes # (1.0-4.8) k/uL Monocytes # (0-1.0) k/uL Eosinophils # (0-0.7) k/uL Basophils # (0-0.2) k/uL Sodium (137-145) mmol/L Potassium (3.5-5.1) mmol/L Chloride (98-107) mmol/L Carbon Dioxide (22-30) mmol/L Anion Gap mmol/L BUN (9-20) mg/dL Creatinine (0.66-1.25) mg/dL Est GFR (CKD-EPI)AfAm (>60 ml/min/1.73 sqM) Est GFR (CKD-EPI)NonAf (>60 ml/min/1.73 sqM) Glucose (74-99) mg/dL Plasma Lactic Acid Edd (0.7-2.0) mmol/L Calcium (8.4-10.2) mg/dL Magnesium (1.6-2.3) mg/dL Total Bilirubin (0.2-1.3) mg/dL AST (17-59) U/L ALT (4-49) U/L Alkaline Phosphatase (38-126) U/L Troponin I <0.012 (0.000-0.034) ng/mL Total Protein (6.3-8.2) g/dL Albumin (3.5-5.0) g/dL Disposition Clinical Impression: Chest pain, Cough Disposition: ADMITTED IP TO THIS HOSP Referrals: Trav Muniz MD [Primary Care Provider] - 1-2 days Time of Disposition: 10:40
[2019-09-01] MEDS ORDERED: IPRATROPIUM-ALBUTEROL 3 ML NEB INHALATION STA (08:47)
--- NOTE | 2019-09-01 09:00 | XR ---
EXAMINATION TYPE: XR chest 2V DATE OF EXAM: 09/01/2019 HISTORY: difficulty breathing. REFERENCE: Previous study dated 08/29/2019. FINDINGS: There has been a previous cervical fusion. The lungs are clear. Pleural space are clear. The heart is not enlarged. IMPRESSION: NO ACTIVE INTRATHORACIC DISEASE.
[2019-09-01] MEDS ORDERED: NITROGLYCERIN OINT 1 INCH/GM PACKET TOPICAL STA (09:59)
[2019-09-01] MEDS ORDERED: LISINOPRIL 20 MG TAB PO STA (10:00)
[2019-09-01] MEDS ORDERED: HYDROCHLOROTHIAZIDE 25 MG TAB PO STA (10:00)
[2019-09-01 10:05] LABS: ALT 47 U/L (4-49); AST 37 U/L (17-59); African American GFR (CKD) >90 (>60 ml/min/1.73 sqM); Albumin 3.9 g/dL (3.5-5.0); Alkaline Phosphatase 107 U/L (38-126); Anion Gap 11 mmol/L; Blood Urea Nitrogen 16 mg/dL (9-20); Calcium 8.9 mg/dL (8.4-10.2); Carbon Dioxide 18 mmol/L (22-30); Chloride 104 mmol/L (98-107); Glucose 203 mg/dL (74-99); Magnesium 1.8 mg/dL (1.6-2.3); Non-African American GFR(CKD) >90 (>60 ml/min/1.73 sqM); Potassium 4.3 mmol/L (3.5-5.1); Sodium 133 mmol/L (137-145); Total Bilirubin 0.7 mg/dL (0.2-1.3); Total Protein 6.6 g/dL (6.3-8.2)
[2019-09-01] MEDS ORDERED: SODIUM CHLORIDE 0.9% 1,000 ML IV ONE (10:05)
[2019-09-01] MEDS ORDERED: ASPIRIN 81 MG PO STA (10:05)
[2019-09-01 10:14] LABS: INR 0.9 (<1.2); Prothrombin Time 9.5 sec (9.0-12.0)
[2019-09-01 10:23] LABS: Basophils % (A) 0 %; Eosinophils # (A) 0.2 k/uL (0-0.7); Eosinophils % (A) 2 %; HCT 44.3 % (39.0-53.0); HGB 14.6 gm/dL (13.0-17.5); Lymphocytes # (A) 2.5 k/uL (1.0-4.8); Lymphocytes % (A) 26 %; MCH 27.9 pg (25.0-35.0); MCV 84.3 fL (80.0-100.0); Mean Platelet Volume 7.6; Monocytes # (A) 0.6 k/uL (0-1.0); Monocytes % (A) 6 %; Neutrophils # (A) 6.2 k/uL (1.3-7.7); Neutrophils % (A) 65 %; Platelet Count 292 k/uL (150-450); RBC 5.25 m/uL (4.30-5.90); RDW 13.4 % (11.5-15.5); WBC 9.6 k/uL (3.8-10.6)
[2019-09-01] MEDS ORDERED: NITROGLYCERIN SL TABS 0.4 MG TAB SUBLINGUAL PRN (10:40)
[2019-09-01 10:41] LABS: Partial Thromboplastin Time 17.8 sec (22.0-30.0)
[2019-09-01 11:58] LABS: Glucose,Whole Blood 186 mg/dL (75-99)
[2019-09-01] MEDS ORDERED: ACETAMINOPHEN TAB 325 MG TAB PO PRN (12:32)
[2019-09-01] MEDS ORDERED: guaiFENesin-DM 100-10MG/5ML 10 ML CUP PO PRN (12:33)
[2019-09-01] MEDS ORDERED: KETOROLAC 30 MG/ML 1 ML VIAL IVP PRN (12:57)
[2019-09-01] MEDS: NITROGLYCERIN OINT 1 INCH/GM PACKET TOPICAL SCH ×2 (13:13→17:05)
[2019-09-01] MEDS: guaiFENesin-Coden 100-10MG/5ML 10 ML CUP PO PRN ×2 (13:48→20:27)
[2019-09-01] MEDS: HYDROcodone/APAP 10-325MG 1 EACH TAB PO PRN ×2 (13:48→20:27)
--- NOTE | 2019-09-01 14:48 | P.HPIM ---
History of Present Illness 53-year-old the female came in with compensative chest pain secondary to coughing and musculoskeletal in origin. Constant chest pain. The reason I kept him year is secondary to lactic acidosis lactic acid is 3.5, from 2.6 this is s econdary to metformin and postdated by hydrochlorothiazide patient was started on IV fluids. Patient will not need any further evaluation by cardiology as the patient does have noncardiac chest pain which is musculoskeletal in origin EKG was reviewed. Patient was recently treated in the hospital for influenza pneumonia. Patient denied and diaphoresis patient's chest pain is nonpleuritic worsens with coughing patient is not able to bring up anything. Chest pain constant nonexertional Review of Systems REVIEW OF SYSTEMS: CONSTITUTIONAL: As mentioned in HPI HEENT: No recent visual problems or hearing problems. Denied any sore throat. CARDIOVASCULAR: No orthopnea, PND, no palpitations, no syncope. PULMONARY: No shortness of breath, no cough, no hemoptysis. GASTROINTESTINAL: No diarrhea, no nausea, no vomiting, no abdominal pain. NEUROLOGICAL: No headaches, no weakness, no numbness. HEMATOLOGICAL: Denies any bleeding or petechiae. GENITOURINARY: Denies any burning micturition, frequency, or urgency. MUSCULOSKELETAL/RHEUMATOLOGICAL: Denies any joint pain, swelling, or any muscle pain. ENDOCRINE: Denies any polyuria or polydipsia. The rest of the 14-point review of systems is negative. Past Medical History Past Medical History: Asthma, Chest Pain / Angina, Diabetes Mellitus, GERD/Reflux, Hyperlipidemia, Hypertension, Myocardial Infarction (HI), Mitral Valve Prolapse (MVP), Pulmonary Embolus (PE), Sleep Apnea/CPAP/BIPAP Additional Past Medical History / Comment(s): Obesity, chronic asthmatic bronchitis, previous history of pulmonary embolism, objective sleep apnea, diab etes mellitus, hypertension, hyperlipidemia, previous history of myocardial infarction with underlying coronary artery disease, renal cysts, chronic back pain secondary to herniated lumbar disc disease with symptoms of sciatica, history of right lower extremity fracture at the age of 13, history of C. diff colitis approximately 4 years ago, history of bleeding peptic ulcer, nephrolithiasis, previous history of UTI and secondary sepsis. Last Myocardial Infarction Date:: 2011 History of Any Multi-Drug Resistant Organisms: MRSA Date of last positivie culture/infection: 2015 MDRO Source:: left axilla Past Surgical History: Appendectomy, Back Surgery, Cholecystectomy, Heart Catheterization, Hernia Repair Additional Past Surgical History / Comment(s): 2008 back surgery with decompression fusion at [facility], 2011, 2016 cardiac cath, multiple ESWL/ureteral stents/ double J catheters, L inquinal hernia repair, PICC line for ABX for urosepsis-since removed., Hx of c-diff. 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 Smoking Status: Never smoker Past Alcohol Use History: None Reported Past Drug Use History: None Reported - Past Family History Father Family Medical History: Chest Pain / Angina Additional Family Medical History / Comment(s): "lung problems" Mother Family Medical History: Cancer, Chest Pain / Angina, Congestive Heart Failure (CHF), Osteoarthritis (OA), Thyroid Disorder Medications and Allergies Home Medications Medication Instructions Recorded Confirmed Type Omeprazole [PriLOSEC] 20 mg PO DAILY 12/11/17 09/01/19 History metFORMIN HCL [Glucophage] 500 mg PO BID 04/24/18 09/01/19 History HYDROcodone/APAP 10-325MG [[place] 1 tab PO QID PRN 10/22/18 09/01/19 History 10-325] Carvedilol [Coreg] 12.5 mg PO BID 07/22/19 09/01/19 History Hydrochlorothiazide 25 mg PO BID 07/22/19 09/01/19 History glipiZIDE XL [Glucotrol XL] 5 mg PO DAILY 07/22/19 09/01/19 History Atorvastatin [Lipitor] 20 mg PO DAILY 08/26/19 09/01/19 History Insulin Glargine,Hum.rec.anlog 15 unit SQ HS 08/26/19 09/01/19 History [Basaglar Kwikpen U-100] Lisinopril [Zestril] 40 mg PO DAILY 08/26/19 09/01/19 History predniSONE [Deltasone] 40 mg PO DAILY #5 tab 08/31/19 09/01/19 Rx Diclofenac Sodium [Voltaren] 75 mg PO BID PRN 09/01/19 09/01/19 History Diltiazem Cd [Cardizem Cd] 300 mg PO DAILY 09/01/19 09/01/19 History Allergies Allergy/AdvReac Type Severity Reaction Status Date / Time doxycycline Allergy Swelling Verified 09/01/19 10:18 ketorolac tromethamine Allergy Rash/Hives Verified 09/01/19 10:18 [From Toradol] morphine Allergy Rash/Hives Verified 09/01/19 10:18 metoclopramide HCl AdvReac Dystonic Verified 09/01/19 10:18 [From Reglan] Reaction prochlorperazine edisylate AdvReac Dystonic Verified 09/01/19 10:18 [From Compazine] Reaction prochlorperazine maleate AdvReac Dystonic Verified 09/01/19 10:18 [From Compazine] Reaction Physical Exam Vitals: Vital Signs Temp Pulse Pulse Pulse Resp BP BP 09/01/19 11:33 98.4 F 101 H 131/82 09/01/19 11:02 98.0 F 108 H 20 136/82 09/01/19 10:00 99 20 149/97 09/01/19 09:36 102 H 20 141/103 09/01/19 09:10 120 H 09/01/19 09:00 116 H 09/01/19 08:03 80 20 09/01/19 08:01 98.3 F 121 H 22 149/115 Pulse Ox 09/01/19 11:33 95 09/01/19 11:02 98 09/01/19 10:00 98 09/01/19 09:36 98 09/01/19 09:10 09/01/19 09:00 09/01/19 08:03 09/01/19 08:01 99 Intake and Output 08/31/19 09/01/19 09/01/19 22:59 06:59 14:59 Other: Voiding Method Toilet Weight 136.078 kg PHYSICAL EXAMINATION: GENERAL: The patient is alert and oriented x3, not in any acute distress. Obese HEENT: Pupils are round and equally reacting to light. EOMI. No scleral icterus. No conjunctival pallor. Normocephalic, atraumatic. No pharyngeal erythema. No thyromegaly. CARDIOVASCULAR: S1 and S2 present. No murmurs, rubs, or gallops. PULMONARY: Chest is clear to auscultation, no wheezing or crackles. ABDOMEN: Soft, nontender, nondistended, normoactive bowel sounds. No palpable organomegaly. MUSCULOSKELETAL: No joint swelling or deformity. EXTREMITIES: No cyanosis, clubbing, or pedal edema. NEUROLOGICAL: Gross neurological examination did not reveal any focal deficits. SKIN: No rashes. Results CBC & Chem 7: 09/01/19 09:44 09/01/19 09:44 Labs: Abnormal Lab Results - Last 24 Hours (Table) 09/01/19 09/01/19 09/01/19 Range/Units 09:44 09:44 09:44 APTT 17.8 L (22.0-30.0) sec Sodium 133 L (137-145) mmol/L Carbon Dioxide 18 L (22-30) mmol/L Creatinine 0.63 L (0.66-1.25) mg/dL Glucose 203 H (74-99) mg/dL POC Glucose (mg/dL) (75-99) mg/dL Plasma Lactic Acid Edd 2.8 H* (0.7-2.0) mmol/L 09/01/19 09/01/19 Range/Units 11:56 13:14 APTT (22.0-30.0) sec Sodium (137-145) mmol/L Carbon Dioxide (22-30) mmol/L Creatinine (0.66-1.25) mg/dL Glucose (74-99) mg/dL POC Glucose (mg/dL) 186 H (75-99) mg/dL Plasma Lactic Acid Edd 3.2 H* (0.7-2.0) mmol/L Thrombosis Risk Factor Assmnt - Choose All That Apply Any of the Below Risk Factors Present?: Yes Each Factor Represents 1 point: Age 41-60 years, Obesity (BMI >25) Other Risk Factors: No Other congenital or acquired thrombophilia - If yes, enter type in comment: No Thrombosis Risk Factor Assessment Total Risk Factor Score: 2 Thrombosis Risk Factor Assessment Level: Low Risk Assessment and Plan Plan: -Lactic acidosis: Secondary to metformin and this is frustrated by hydrochlorothiazide both of these medications will be discontinued patient was started on IV fluids repeat met lactic acid tomorrow if that's okay patient will be discharged tomorrow -COPD doubt any present acute exacerbation patient will be continued on inhalational treatments. -Gastroesophageal visual reflux disease -Recent influenza completed his flu treatment -Sleep apnea CPAP machine at home -History of PE presently there is no evidence of pulmonary embolism -Uncontrollable cough for which we'll use Robitussin-DM along with Tessalon Perles and breathing treatments -Chest pain musculoskeletal origin ruled out acute colitis syndromes
[2019-09-01] MEDS: IPRATROPIUM-ALBUTEROL 3 ML NEB INHALATION SCH ×2 (15:21→20:46)
[2019-09-01 16:55] LABS: Glucose,Whole Blood 189 mg/dL (75-99)
[2019-09-01] MEDS: SODIUM CHLORIDE 0.9% 1,000 ML IV SCH (17:05)
[2019-09-01] MEDS: INSULIN ASPART (NovoLOG) 100 UNIT/ML VIAL SQ SCH ×2 (17:05→20:26)
[2019-09-01 20:18] LABS: Glucose,Whole Blood 167 mg/dL (75-99)
[2019-09-01] MEDS: CARVEDILOL 12.5 MG TAB PO SCH (20:27)
[2019-09-01] MEDS ORDERED: INSULIN DETEMIR (LEVEMIR) 100 UNIT/ML SYR SQ SCH (21:00)
[2019-09-01] MEDS ORDERED: metFORMIN 500 MG TAB PO SCH (21:00)
[2019-09-02] MEDS: IPRATROPIUM-ALBUTEROL 3 ML NEB INHALATION SCH ×3 (00:33→07:39)
[2019-09-02 00:47] VITALS: RESP 18
[2019-09-02] MEDS: SODIUM CHLORIDE 0.9% 1,000 ML IV SCH (02:56)
[2019-09-02] MEDS: NITROGLYCERIN OINT 1 INCH/GM PACKET TOPICAL SCH ×2 (02:56→06:35)
[2019-09-02] MEDS: HYDROcodone/APAP 10-325MG 1 EACH TAB PO PRN (02:59)
[2019-09-02] MEDS: guaiFENesin-Coden 100-10MG/5ML 10 ML CUP PO PRN (02:59)
[2019-09-02 06:02] LABS: Cholesterol 162 mg/dL (<200); HDL Cholesterol 44 mg/dL (40-60); LDL Cholesterol,Calculated 60 mg/dL (0-99); Triglycerides 290 mg/dL (<150)
[2019-09-02 07:12] LABS: Glucose,Whole Blood 172 mg/dL (75-99)
[2019-09-02] MEDS ORDERED: PANTOPRAZOLE 40 MG TABLET PO SCH (07:30)
[2019-09-02] MEDS: CARVEDILOL 12.5 MG TAB PO SCH (08:31)
[2019-09-02] MEDS: INSULIN ASPART (NovoLOG) 100 UNIT/ML VIAL SQ SCH (08:31)
[2019-09-02 08:43] VITALS: BP 140/86; PULSE 92; TEMP 98.1
[2019-09-02] MEDS ORDERED: ATORVASTATIN 20 MG TAB PO SCH (09:00)
[2019-09-02] MEDS ORDERED: ASPIRIN 325 MG TAB PO SCH (09:00)
[2019-09-02] MEDS ORDERED: DILTIAZEM CD 300 MG CAP.ER.24H PO SCH (09:00)
[2019-09-02] MEDS ORDERED: predniSONE 20 MG TAB PO SCH ×2 (09:00)
[2019-09-02] MEDS ORDERED: LISINOPRIL 20 MG TAB PO SCH (09:00)
--- NOTE | 2019-09-03 08:44 | P.DS ---
Providers Date of admission: 09/01/19 10:40 Expected date of discharge: 09/02/19 Attending physician: Grey Reynoso MD Primary care physician: Trav Muniz [facility] Course: Final Diagnosis -Lactic acidosis: Secondary to metformin and this is frustrated by hydrochlorothiazide -COPD, not in acute exacerbation -Gastroesophageal reflux disease -Recent influenza completed his flu treatment -Sleep apnea -History of PE presently there is no evidence of pulmonary embolism -Uncontrollable cough -Chest pain musculoskeletal origin ruled out acute coronary syndromes -Hyponatremia Discharge disposition Patient is being discharged in a stable condition with guarded prognosis to home and will follow-up with Dr. Muniz in the outpatient setting upon discharge. Patient will continue on Robitussin along with Tessalon Perles as needed for the cough. Total time taken is 35 minutes History of present illness 53-year-old the female came in with compensative chest pain secondary to coughing and musculoskeletal in origin. Constant chest pain. The reason I kept him year is secondary to lactic acidosis lactic acid is 3.5, from 2.6 this is secondary to metformin and postdated by hydrochlorothiazide patient was started on IV fluids. Patient will not need any further evaluation by cardiology as the patient does have noncardiac chest pain which is musculoskeletal in origin EKG was reviewed. Patient was recently treated in the hospital for influenza pneumonia. Patient denied and diaphoresis patient's chest pain is nonpleuritic worsens with coughing patient is not able to bring up anything. Chest pain constant non-exertional 09/02/2019 Patient is sitting up in bed states that his breathing has improved although he continues to have a cough and unable to expectorate much. Patient's repeat lactic acid was within normal limits patient will like to go home today. Patient states that he has an appointment with his neurologist at 10:30 that he cannot miss. Patient instructed to continue with inhalers and Robitussin before meals along with Tessalon Perles will be provided upon discharge. Currently patient has no reports of chest pain, worsening shortness of breath, or palpitations. Patient is afebrile. No reports of nausea or vomiting and patient is tolerating diet. Patient's condition is stable and is ready for discharge today. On exam vital signs are stable. Temp is 98.1F, pulse is 92, respirations are 18, blood pressure is 140/86, oxygen saturation is 98% on room air. Cardio S1, S2 are present. Respiratory shows diminished breath sounds at the bases otherwise clear to auscultation. Abdomen is soft, obese, nontender. Nervous system shows no focal deficits. Please refer to medication reconciliation sheet for a list of medications. Patient Condition at Discharge: Stable Plan - Discharge Summary Discharge Rx Participant: No New Discharge Prescriptions: New Aspirin 325 mg PO DAILY 30 Days #30 tab guaiFENesin-Coden 100-10MG/5ML [Robitussin AC] 10 ml PO Q6H PRN #120 ml PRN Reason: Cough Benzonatate [Tessalon Perles] 100 mg PO TID PRN #20 cap PRN Reason: Cough Continue Omeprazole [PriLOSEC] 20 mg PO DAILY HYDROcodone/APAP 10-325MG [Fraser 10-325] 1 tab PO QID PRN PRN Reason: Pain glipiZIDE XL [Glucotrol XL] 5 mg PO DAILY Carvedilol [Coreg] 12.5 mg PO BID Lisinopril [Zestril] 40 mg PO DAILY Insulin Glargine,Hum.rec.anlog [Basaglar Kwikpen U-100] 15 unit SQ HS Atorvastatin [Lipitor] 20 mg PO DAILY predniSONE [Deltasone] 40 mg PO DAILY #5 tab Diltiazem Cd [Cardizem CD] 300 mg PO DAILY Diclofenac Sodium [Voltaren] 75 mg PO BID PRN PRN Reason: Pain Discontinued metFORMIN HCL [Glucophage] 500 mg PO BID Hydrochlorothiazide 25 mg PO BID Discharge Medication List Omeprazole [PriLOSEC] 20 mg PO DAILY 12/11/17 [History] HYDROcodone/APAP 10-325MG [Fraser 10-325] 1 tab PO QID PRN 10/22/18 [History] Carvedilol [Coreg] 12.5 mg PO BID 07/22/19 [History] glipiZIDE XL [Glucotrol XL] 5 mg PO DAILY 07/22/19 [History] Atorvastatin [Lipitor] 20 mg PO DAILY 08/26/19 [History] Insulin Glargine,Hum.rec.anlog [Basaglar Kwikpen U-100] 15 unit SQ HS 08/26/19 [History] Lisinopril [Zestril] 40 mg PO DAILY 08/26/19 [History] predniSONE [Deltasone] 40 mg PO DAILY #5 tab 08/31/19 [Rx] Diclofenac Sodium [Voltaren] 75 mg PO BID PRN 09/01/19 [History] Diltiazem Cd [Cardizem CD] 300 mg PO DAILY 09/01/19 [History] Aspirin 325 mg PO DAILY 30 Days #30 tab 09/02/19 [Rx] Benzonatate [Tessalon Perles] 100 mg PO TID PRN #20 cap 09/02/19 [Rx] guaiFENesin-Coden 100-10MG/5ML [Robitussin AC] 10 ml PO Q6H PRN #120 ml 09/02/19 [Rx] Follow up Appointment(s)/Referral(s): Trav Muniz MD [Primary Care Provider] - 1-2 days Activity/Diet/Wound Care/Special Instructions: Activity Limited until follow-up Follow up with primary care provider upon discharge Continue current diet Continue to monitor blood sugars before meals at bedtime and keep a diary Continue to hold metformin and hydrochlorothiazide and discuss with primary care provider May use Robitussin-AC or Tessalon Perles as needed for cough Discharge Disposition: HOME SELF-CARE
== END 2019-09-02 09:20 | disposition home or self-care (01) ==
LOC: EC 07:58 → 1SOBS 10:40
PROVIDERS: ADMIT Internal Medicine; ATTEND Internal Medicine
DX: E87.2 Acidosis (principal); T38.3X5A Adverse effect of insulin and oral hypoglycemic [antidiabetic] drugs, initial encounter; J44.0 Chronic obstructive pulmonary disease with (acute) lower respiratory infection; G47.30 Sleep apnea, unspecified; E87.1 Hypo-osmolality and hyponatremia; Z86.711 Personal history of pulmonary embolism; K21.9 Gastro-esophageal reflux disease without esophagitis; I34.1 Nonrheumatic mitral (valve) prolapse; I10 Essential (primary) hypertension; E78.5 Hyperlipidemia, unspecified; E11.9 Type 2 diabetes mellitus without complications; I25.2 Old myocardial infarction; I25.119 Atherosclerotic heart disease of native coronary artery with unspecified angina pectoris; E66.9 Obesity, unspecified; Z68.41 Body mass index [BMI] 40.0-44.9, adult; N28.1 Cyst of kidney, acquired; M51.26 Other intervertebral disc displacement, lumbar region; G89.29 Other chronic pain; Z88.5 Allergy status to narcotic agent; Z88.1 Allergy status to other antibiotic agents; Z88.8 Allergy status to other drugs, medicaments and biological substances; Z79.899 Other long term (current) drug therapy; Z79.52 Long term (current) use of systemic steroids; Z79.4 Long term (current) use of insulin; Z86.14 Personal history of Methicillin resistant Staphylococcus aureus infection; Z90.49 Acquired absence of other specified parts of digestive tract; Z98.1 Arthrodesis status; Z83.49 Family history of other endocrine, nutritional and metabolic diseases; Z82.49 Family history of ischemic heart disease and other diseases of the circulatory system; Z80.9 Family history of malignant neoplasm, unspecified
CPT/HCPCS: 99285; 36415; 94640 ×2; 93005; 80061; 80053; 83605 ×2; 83735; 84484; 85025; 85610; 85730; 71046; G0378 ×2; J7512

== ENCOUNTER 2019-10-12 13:51 | Inpatient (IN) | payer OTHER ==
[2019-10-12] MEDS ORDERED: SODIUM CHLORIDE 0.9% 1,000 ML IV STA ×2 (14:01→16:08)
[2019-10-12] MEDS ORDERED: ACETAMINOPHEN TAB 500 MG TAB PO STA (14:03)
--- NOTE | 2019-10-12 14:35 | ED ---
General Adult HPI - General Stated complaint: Vomiting Time Seen by Provider: 10/12/19 13:53 Source: patient, EMS, RN notes reviewed Mode of arrival: EMS Limitations: no limitations - History of Present Illness Initial comments: 53-year-old male well-known to this emergency department presents for several complaints. Patient states he has had a cough and shortness of breath since a week ago. States he did have fevers at that time as well. Patient was admitted to [facility] for this last Monday where he had negative Covid testing done. Patient was discharged home however he has not had improvement symptoms. Continues to have cough and fever. He did also vomit today. He has mild chest pain as well which she has had since his cough started. Pain is exacerbated with cough.Patient has no other complaints at this time including chest pain, abdominal pain, headache, or visual changes. - Related Data Home Medications Medication Instructions Recorded Confirmed Omeprazole [PriLOSEC] 20 mg PO DAILY 12/11/17 10/12/19 Carvedilol [Coreg] 12.5 mg PO BID 07/22/19 10/12/19 glipiZIDE XL [Glucotrol XL] 5 mg PO DAILY 07/22/19 10/12/19 Atorvastatin [Lipitor] 20 mg PO DAILY 08/26/19 10/12/19 Insulin Glargine,Hum.rec.anlog 20 unit SQ HS 08/26/19 10/12/19 [Basaglar Kwikpen U-100] Lisinopril [Zestril] 40 mg PO DAILY 08/26/19 10/12/19 Diclofenac Sodium [Voltaren] 75 mg PO BID PRN 09/01/19 10/12/19 Diltiazem Cd [Cardizem CD] 300 mg PO DAILY 09/01/19 10/12/19 Gabapentin [Neurontin] 300 mg PO BID 10/12/19 10/12/19 oxyCODONE-APAP 10-325MG [Percocet 1 tab PO TID PRN 10/12/19 10/12/19 10-325 mg] Previous Rx's Medication Instructions Recorded Aspirin 325 mg PO DAILY 30 Days #30 tab 09/02/19 Allergies Allergy/AdvReac Type Severity Reaction Status Date / Time doxycycline Allergy Swelling Verified 10/12/19 16:28 ketorolac tromethamine Allergy Rash/Hives Verified 10/12/19 16:28 [From Toradol] morphine Allergy Rash/Hives Verified 10/12/19 16:28 metoclopramide HCl AdvReac Dystonic Verified 10/12/19 16:28 [From Reglan] Reaction prochlorperazine edisylate AdvReac Dystonic Verified 10/12/19 16:28 [From Compazine] Reaction prochlorperazine maleate AdvReac Dystonic Verified 10/12/19 16:28 [From Compazine] Reaction Review of Systems ROS Statement: Those systems with pertinent positive or pertinent negative responses have been documented in the HPI. ROS Other: All systems not noted in ROS Statement are negative. Past Medical History Past Medical History: Asthma, Chest Pain / Angina, Diabetes Mellitus, GERD/Reflux, Hyperlipidemia, Hypertension, Myocardial Infarction ([place]), Mitral Valve Prolapse (MVP), Pulmonary Embolus (PE), Sleep Apnea/CPAP/BIPAP Additional Past Medical History / Comment(s): Obesity, chronic asthmatic bronchitis, previous history of pulmonary embolism, objective sleep apnea, diabetes mellitus, hypertension, hyperlipidemia, previous history of myocardial infarction with underlying coronary artery disease, renal cysts, chronic back pain secondary to herniated lumbar disc disease with symptoms of sciatica, history of right lower extremity fracture at the age of 13, history of C. diff colitis approximately 4 years ago, history of bleeding peptic ulcer, nephrolithiasis, previous history of UTI and secondary sepsis. Last Myocardial Infarction Date:: 2011 History of Any Multi-Drug Resistant Organisms: MRSA Date of last positivie culture/infection: 2015 MDRO Source:: left axilla Past Surgical History: Appendectomy, Back Surgery, Cholecystectomy, Heart Catheterization, Hernia Repair Additional Past Surgical History / Comment(s): 2008 back surgery with decompression fusion at [facility], 2011, 2016 cardiac cath, multiple ESWL/ureteral stents/ double J catheters, L inquinal hernia repair, PICC line for ABX for urosepsis-since removed., Hx of c-diff. Past Anesthesia/Blood Transfusion Reactions: No Reported Reaction Past Psychological History: No Psychological Hx Reported Smoking Status: Never smoker Past Alcohol Use History: None Reported Past Drug Use History: None Reported - Past Family History Father Family Medical History: Chest Pain / Angina Additional Family Medical History / Comment(s): "lung problems" Mother Family Medical History: Cancer, Chest Pain / Angina, Congestive Heart Failure (CHF), Osteoarthritis (OA), Thyroid Disorder General Exam Limitations: no limitations General appearance: alert, anxious Head exam: Present: atraumatic, normocephalic, normal inspection Eye exam: Present: normal appearance, PERRL, EOMI. Absent: scleral icterus, conjunctival injection, periorbital swelling ENT exam: Present: normal exam, mucous membranes moist Neck exam: Present: normal inspection, full ROM. Absent: tenderness, meningismus, lymphadenopathy Respiratory exam: Present: normal lung sounds bilaterally. Absent: respiratory distress, wheezes, rales, rhonchi, stridor Cardiovascular Exam: Present: regular rate, normal rhythm, normal heart sounds. Absent: systolic murmur, diastolic murmur, rubs, gallop, clicks GI/Abdominal exam: Present: soft, normal bowel sounds. Absent: distended, tenderness, guarding, rebound, rigid Neurological exam: Present: alert Psychiatric exam: Present: normal affect, normal mood Course Vital Signs 10/12/19 10/12/19 13:55 17:03 Temperature 103.0 F H 101.4 F H Pulse Rate 149 H 135 H Respiratory 19 19 Rate Blood Pressure 192/104 136/73 O2 Sat by Pulse 98 97 Oximetry EKG Findings - EKG Comments: EKG Findings:: Supraventricular tachycardia, ventricular rate 150, QRS 96, QTc 450. 1750: Sinus tachycardia, short NJ interval, ventricular rate 37, NJ interval 104, QTC 576 Medical Decision Making - Medical Decision Making Patient initially presents tachycardic and febrile with a temperature of 103. Patient has many complaints however his main complaint is cough and shortness of breath. Patient states he has had a cough and fever for the past week. States he was admitted at [facility] for tachycardia fever and cough 1 week ago and discharged home. At that time she apparently had a negative covid test and had received a computed tomography scan although we're unsure what this was of. We are unable to obtain his records from [facility] after several attempts. On examination he is well appearing. Blood pressure is stable. He is alert and oriented. He is complaining of some nausea as well, no vomiting. He was given Tylenol and started on IV fluids. X-ray is negative for pneumonia. Urinalysis does not show evidence of infection either. Abdomen is nontender. CBC does not show any evidence of leukocytosis. Lymphocytopenia is present. CMP does show evidence of lactic acidosis with an anion gap of 16. Plasma lactic acid 3.7. patient was given > 30 mls/kg of fluids and given empiric antibiotics in the emergency department. Patient was bolused and heart rate did start to improve. Repeat EKG showed evidence for sinus tachycardia. CT chest angio was additionally obtained which demonstrated he has shows no evidence for PE. Minimal interstitial density at the left lung base slightly increased compared to old exam. No pulmonary consolidation.. I suspect patient likely has coronavirus despite reportedly negative test last week. This is on the basis of lymphocytopenia as well as fever and cough. It is possible that this previous test may have been a false negative or perhaps patient was exposed while at [facility]. PCR pending. Dr. Balbuena evaluated the patient several times at bedside as well. Patient was admitted, they recommended pulm and ID consul ts. - Lab Data Result diagrams: 10/12/19 15:21 10/12/19 15:21 Lab Results 10/12/19 10/12/19 10/12/19 Range/Units 15:21 15:21 15:21 WBC 7.4 (3.8-10.6) k/uL RBC 5.22 (4.30-5.90) m/uL Hgb 15.0 (13.0-17.5) gm/dL Hct 45.4 (39.0-53.0) % MCV 87.0 (80.0-100.0) fL MCH 28.7 (25.0-35.0) pg MCHC 33.0 (31.0-37.0) g/dL RDW 13.9 (11.5-15.5) % Plt Count 250 (150-450) k/uL Neutrophils % 92 % Lymphocytes % 2 % Monocytes % 4 % Eosinophils % 1 % Basophils % 0 % Neutrophils # 6.8 (1.3-7.7) k/uL Lymphocytes # 0.2 L (1.0-4.8) k/uL Monocytes # 0.3 (0-1.0) k/uL Eosinophils # 0.1 (0-0.7) k/uL Basophils # 0.0 (0-0.2) k/uL PT 9.5 (9.0-12.0) sec INR 0.9 (<1.2) APTT 19.4 L (22.0-30.0) sec Sodium 136 L (137-145) mmol/L Potassium 4.7 (3.5-5.1) mmol/L Chloride 100 (98-107) mmol/L Carbon Dioxide 20 L (22-30) mmol/L Anion Gap 16 mmol/L BUN 13 (9-20) mg/dL Creatinine 0.65 L (0.66-1.25) mg/dL Est GFR (CKD-EPI)AfAm >90 (>60 ml/min/1.73 sqM) Est GFR (CKD-EPI)NonAf >90 (>60 ml/min/1.73 sqM) Glucose 332 H (74-99) mg/dL Plasma Lactic Acid Edd (0.7-2.0) mmol/L Calcium 9.4 (8.4-10.2) mg/dL Magnesium 1.5 L (1.6-2.3) mg/dL Total Bilirubin 1.2 (0.2-1.3) mg/dL AST 42 (17-59) U/L ALT 40 (4-49) U/L Alkaline Phosphatase 138 H (38-126) U/L Troponin I (0.000-0.034) ng/mL Total Protein 7.5 (6.3-8.2) g/dL Albumin 4.6 (3.5-5.0) g/dL Urine Color Urine Appearance (Clear) Urine pH (5.0-8.0) Ur Specific Crescent (1.001-1.035) Urine Protein (Negative) Urine Glucose (UA) (Negative) Urine Ketones (Negative) Urine Blood (Negative) Urine Nitrite (Negative) Urine Bilirubin (Negative) Urine Urobilinogen (<2.0) mg/dL Ur Leukocyte Esterase (Negative) 10/12/19 10/12/19 10/12/19 Range/Units 15:21 15:21 15:40 WBC (3.8-10.6) k/uL RBC (4.30-5.90) m/uL Hgb (13.0-17.5) gm/dL Hct (39.0-53.0) % MCV (80.0-100.0) fL MCH (25.0-35.0) pg MCHC (31.0-37.0) g/dL RDW (11.5-15.5) % Plt Count (150-450) k/uL Neutrophils % % Lymphocytes % % Monocytes % % Eosinophils % % Basophils % % Neutrophils # (1.3-7.7) k/uL Lymphocytes # (1.0-4.8) k/uL Monocytes # (0-1.0) k/uL Eosinophils # (0-0.7) k/uL Basophils # (0-0.2) k/uL PT (9.0-12.0) sec INR (<1.2) APTT (22.0-30.0) sec Sodium (137-145) mmol/L Potassium (3.5-5.1) mmol/L Chloride (98-107) mmol/L Carbon Dioxide (22-30) mmol/L Anion Gap mmol/L BUN (9-20) mg/dL Creatinine (0.66-1.25) mg/dL Est GFR (CKD-EPI)AfAm (>60 ml/min/1.73 sqM) Est GFR (CKD-EPI)NonAf (>60 ml/min/1.73 sqM) Glucose (74-99) mg/dL Plasma Lactic Acid Edd 3.7 H* (0.7-2.0) mmol/L Calcium (8.4-10.2) mg/dL Magnesium (1.6-2.3) mg/dL Total Bilirubin (0.2-1.3) mg/dL AST (17-59) U/L ALT (4-49) U/L Alkaline Phosphatase (38-126) U/L Troponin I <0.012 (0.000-0.034) ng/mL Total Protein (6.3-8.2) g/dL Albumin (3.5-5.0) g/dL Urine Color Yellow Urine Appearance Clear (Clear) Urine pH 5.0 (5.0-8.0) Ur Specific Crescent 1.043 H (1.001-1.035) Urine Protein Trace H (Negative) Urine Glucose (UA) 4+ H (Negative) Urine Ketones 1+ H (Negative) Urine Blood Negative (Negative) Urine Nitrite Negative (Negative) Urine Bilirubin Negative (Negative) Urine Urobilinogen <2.0 (<2.0) mg/dL Ur Leukocyte Esterase Negative (Negative) Disposition Clinical Impression: Tachycardia, Fever, Cough Disposition: ADMITTED IP TO THIS HOSP Condition: Fair Is patient prescribed a controlled substance at d/c from ED?: No Time of Disposition: 18:36
--- NOTE | 2019-10-12 15:04 | XR ---
EXAMINATION TYPE: XR chest 1V portable DATE OF EXAM: 10/12/2019 COMPARISON: 09/01/2019 HISTORY: Short of breath. TECHNIQUE: Single view FINDINGS: Heart and mediastinum are normal. Lungs are clear. Diaphragm is normal. Bony thorax appears normal. IMPRESSION: No active cardiopulmonary disease. No change.
[2019-10-12] MEDS ORDERED: HYDROmorphone 0.5 MG/0.5 ML SYRINGE IVP STA ×2 (15:37→17:19)
[2019-10-12 15:40] LABS: AST 42 U/L (17-59); African American GFR (CKD) >90 (>60 ml/min/1.73 sqM); Albumin 4.6 g/dL (3.5-5.0); Alkaline Phosphatase 138 U/L (38-126); Anion Gap 16 mmol/L; Blood Urea Nitrogen 13 mg/dL (9-20); Calcium 9.4 mg/dL (8.4-10.2); Carbon Dioxide 20 mmol/L (22-30); Chloride 100 mmol/L (98-107); Glucose 332 mg/dL (74-99); Magnesium 1.5 mg/dL (1.6-2.3); Non-African American GFR(CKD) >90 (>60 ml/min/1.73 sqM); Potassium 4.7 mmol/L (3.5-5.1); Sodium 136 mmol/L (137-145); Total Bilirubin 1.2 mg/dL (0.2-1.3); Total Protein 7.5 g/dL (6.3-8.2)
[2019-10-12 15:45] LABS: Basophils % (A) 0 %; Eosinophils # (A) 0.1 k/uL (0-0.7); Eosinophils % (A) 1 %; HCT 45.4 % (39.0-53.0); Lymphocytes # (A) 0.2 k/uL (1.0-4.8); Lymphocytes % (A) 2 %; MCH 28.7 pg (25.0-35.0); Mean Platelet Volume 7.5; Monocytes # (A) 0.3 k/uL (0-1.0); Monocytes % (A) 4 %; Neutrophils # (A) 6.8 k/uL (1.3-7.7); Neutrophils % (A) 92 %; Platelet Count 250 k/uL (150-450); RBC 5.22 m/uL (4.30-5.90); RDW 13.9 % (11.5-15.5); WBC 7.4 k/uL (3.8-10.6)
[2019-10-12 15:46] LABS: ALT 40 U/L (4-49)
[2019-10-12 15:48] LABS: INR 0.9 (<1.2); Prothrombin Time 9.5 sec (9.0-12.0)
[2019-10-12 15:54] LABS: Appearance,Urine Clear (Clear); Bilirubin,Urine Negative (Negative); Blood,Urine Negative (Negative); Color,Urine Yellow; Glucose,Urine (UA) 4+ (Negative); Ketones,Urine 1+ (Negative); Leukocyte Esterase,Urine Negative (Negative); Nitrite,Urine Negative (Negative); Protein,Urine Trace (Negative); Specific Gravity,Urine 1.043 (1.001-1.035); Urobilinogen,Urine <2.0 mg/dL (<2.0)
[2019-10-12 15:54] LABS: Partial Thromboplastin Time 19.4 sec (22.0-30.0)
[2019-10-12] MEDS ORDERED: cefTRIAXone IN SWFI 1,000 MG/10 ML SYRINGE IVP STA (16:09)
[2019-10-12] MEDS ORDERED: MAGNESIUM SULFATE-D5W PMX 1 GM in DEXTROSE/WATER 1 100ML.BAG IVPB ONE (16:09)
[2019-10-12] MEDS ORDERED: VANCOMYCIN IV PER PHARMACY 1 EACH MISC MISCELLANE PRN (16:32)
[2019-10-12] MEDS ORDERED: SODIUM CHLORIDE 0.9% 1,000 ML IV ONE (16:33)
[2019-10-12] MEDS ORDERED: VANCOMYCIN 2,000 MG in SODIUM CHLORIDE 0.9% 500 ML 500 ML IVPB ONE (17:00)
[2019-10-12] MEDS ORDERED: NALOXONE 0.4 MG/ML 1 ML VIAL IV PRN (17:07)
[2019-10-12] MEDS ORDERED: ACETAMINOPHEN TAB 325 MG TAB PO PRN (18:25)
--- NOTE | 2019-10-12 18:32 | CT ---
EXAMINATION TYPE: CT chest angio for PE DATE OF EXAM: 10/12/2019 COMPARISON: 08/14/2018 HISTORY: fever, cough CT DLP: 1054.4 mGycm Automated exposure control for dose reduction was used. CONTRAST: Performed with IV Contrast, patient injected with 100 mL of Isovue 370. There are 3-D post processed images. The lungs are clear of consolidation. There is no evidence of a pulmonary mass. There is no pleural e ffusion. Heart size is fairly normal. There is no pericardial effusion. There is low attenuation in t he liver consistent with some fatty infiltration. There is no hilar mass. There is no mediastinal adenopathy. Thoracic aorta is intact without sign of aneurysm or dissection. There is no evidence of filling defect in the pulmonary arteries. Thoracic sp ine is intact. Bony thorax is intact. IMPRESSION: No evidence of pulmonary embolism. Minimal interstitial density at the left lung base slightly increa sed compared to old exam. No pulmonary consolidation.
[2019-10-12 19:54] LABS: C Reactive Protein 37.2 mg/L (<10.0)
[2019-10-12] MEDS ORDERED: oxyCODONE-APAP 10-325MG 1 EACH TAB PO PRN (20:04)
[2019-10-12 20:23] LABS: Glucose,Whole Blood 512 mg/dL (75-99)
[2019-10-12] MEDS ORDERED: INSULIN ASPART (NovoLOG) 100 UNIT/ML VIAL SQ ONE (20:25)
[2019-10-12] MEDS: CARVEDILOL 12.5 MG TAB PO SCH (21:09)
[2019-10-12] MEDS: GABAPENTIN 300 MG CAP PO SCH (21:09)
[2019-10-12] MEDS: INSULIN DETEMIR (LEVEMIR) 100 UNIT/ML SYR SQ SCH (21:10)
[2019-10-12] MEDS: INSULIN ASPART (NovoLOG) 100 UNIT/ML VIAL SQ SCH (21:11)
[2019-10-12] MEDS: HEPARIN SODIUM,PORCINE 5,000 UNIT/ML 1 ML VIAL SQ SCH (23:05)
[2019-10-12] MEDS: SODIUM CHLORIDE 0.9% 1,000 ML IV SCH (23:05)
[2019-10-13] MEDS ORDERED: HYDROmorphone 0.5 MG/0.5 ML SYRINGE IM PRN (00:41)
[2019-10-13] MEDS: ONDANSETRON 4 MG/2 ML VIAL IVP PRN (00:46)
[2019-10-13] MEDS: VANCOMYCIN 2,000 MG in SODIUM CHLORIDE 0.9% 500 ML 500 ML IVPB SCH ×2 (02:11→13:03)
[2019-10-13] MEDS: SODIUM CHLORIDE 0.9% 1,000 ML IV SCH ×3 (02:11→18:24)
[2019-10-13 04:14] LABS: ALT 28 U/L (4-49); AST 28 U/L (17-59); African American GFR (CKD) >90 (>60 ml/min/1.73 sqM); Albumin 3.3 g/dL (3.5-5.0); Alkaline Phosphatase 78 U/L (38-126); Anion Gap 10 mmol/L; Blood Urea Nitrogen 10 mg/dL (9-20); Calcium 7.9 mg/dL (8.4-10.2); Carbon Dioxide 21 mmol/L (22-30); Chloride 102 mmol/L (98-107); Glucose 245 mg/dL (74-99); Magnesium 1.6 mg/dL (1.6-2.3); Non-African American GFR(CKD) >90 (>60 ml/min/1.73 sqM); Potassium 3.6 mmol/L (3.5-5.1); Sodium 133 mmol/L (137-145); Total Bilirubin 0.8 mg/dL (0.2-1.3); Total Protein 5.7 g/dL (6.3-8.2)
[2019-10-13 04:28] LABS: Basophils % (A) 0 %; Eosinophils # (A) 0.1 k/uL (0-0.7); Eosinophils % (A) 1 %; HCT 36.9 % (39.0-53.0); HGB 12.1 gm/dL (13.0-17.5); Lymphocytes # (A) 0.6 k/uL (1.0-4.8); Lymphocytes % (A) 15 %; MCH 28.1 pg (25.0-35.0); MCHC 32.9 g/dL (31.0-37.0); MCV 85.3 fL (80.0-100.0); Mean Platelet Volume 7.7; Monocytes # (A) 0.3 k/uL (0-1.0); Monocytes % (A) 7 %; Neutrophils # (A) 2.9 k/uL (1.3-7.7); Neutrophils % (A) 74 %; Platelet Count 192 k/uL (150-450); RBC 4.32 m/uL (4.30-5.90); RDW 13.9 % (11.5-15.5); WBC 3.9 k/uL (3.8-10.6)
[2019-10-13] MEDS: HYDROmorphone 0.5 MG/0.5 ML SYRINGE IVP PRN ×3 (04:45→13:01)
[2019-10-13 06:14] LABS: Glucose,Whole Blood 277 mg/dL (75-99)
[2019-10-13] MEDS: PANTOPRAZOLE 40 MG TABLET PO SCH (06:18)
[2019-10-13] MEDS: CARVEDILOL 12.5 MG TAB PO SCH ×2 (06:18→15:55)
[2019-10-13] MEDS: INSULIN ASPART (NovoLOG) 100 UNIT/ML VIAL SQ SCH ×4 (06:18→21:33)
[2019-10-13] MEDS: LISINOPRIL 20 MG TAB PO SCH (09:24)
[2019-10-13] MEDS: HEPARIN SODIUM,PORCINE 5,000 UNIT/ML 1 ML VIAL SQ SCH ×2 (09:24→15:55)
[2019-10-13] MEDS: DILTIAZEM CD 300 MG CAP.ER.24H PO SCH (09:24)
[2019-10-13] MEDS: ASPIRIN 325 MG TAB PO SCH (09:24)
[2019-10-13] MEDS: ATORVASTATIN 20 MG TAB PO SCH (09:24)
[2019-10-13] MEDS: guaiFENesin 600 MG TABLET.ER PO SCH ×2 (09:24→21:34)
[2019-10-13] MEDS: GABAPENTIN 300 MG CAP PO SCH ×2 (09:24→21:34)
--- NOTE | 2019-10-13 10:49 | P.CNPUL ---
History of Present Illness Consult date: 10/12/19 Reason for consult: dyspnea History of present illness: A pleasant 53-year-old male patient, morbidly obese, history of mild intermittent bronchial asthma, diabetes mellitus hypertension and hyperlipidemia and remote history of pulmonary embolism along with history of obstructive sleep apnea maintained on CPAP therapy. his patient was recently admitted to the hospital on 08/27/2019 for acute influenza A tracheobronchitis with secondary asthma exacerbation. The patient is quite symptomatic bronchospastic wheezing shortness of breath. The patient was started on Tamiflu. The patient is also started on a combination of bronchodilators and steroids. The patient improved and he was discharged home. The patient came today to the ED with fever and cough and shortness of breath. Apparently this patient had cough admitted to [facility] for similar symptoms approximately became symptomatic approximately week ago and he admitted himself to [facility]. At that time she apparently had a negative covid test. He is complaining of some nausea as well, no vomiting. CXR-ray is negative for pneumonia. Urinalysis does not show evidence of infection either. CBC does not show any evidence of leukocytosis. L ymphocytopenia is present. CMP does show evidence of lactic acidosis with an anion gap of 16. Plasma lactic acid 3.7. patient was given > 30 mls/kg of fluids n the emergency department and he was given empiric antibiotics in the emergency department. Patient was bolused and heart rate did start to improve. Repeat EKG showed evidence for sinus tachycardia. CT chest angio was additionally obtained which demonstrated he has shows no evidence for PE. Minimal interstitial density at the left lung base slightly increased compared to old exam. No pulmonary consolidation.. The patient was suspected to have coronavirus despite reportedly negative test last week. He was retested and he was admitted to the hospital for further evaluation. Review of Systems Constitutional: Denies chills, the patient has high grade fever Eyes: denies as per HPI, denies blurred vision, denies bulging eye, denies de creased vision, denies diplopia, denies discharge, denies dry eye, denies irritation, denies itching, denies pain, denies photophobia, denies loss of peripheral vision, denies loss of vision, denies tunnel vision/blind spots Ears: deny: decreased hearing, ear discharge, earache, tinnitus Ears, nose, mouth and throat: Denies headache, Denies sore throat Cardiovascular: Reports chest pain, Reports dyspnea on exertion Respiratory: Reports dyspnea, dyspnea, increased cough congestion and wheezing and the patient has obstructive sleep apnea. Gastrointestinal: Denies abdominal pain, Denies diarrhea, Denies nausea, Denies vomiting Genitourinary: Reports as per HPI Musculoskeletal: Reports as per HPI Musculoskeletal: absent: ankle pain, ankle stiffness, ankle swelling, as per HPI, elbow pain, elbow stiffness, elbow swelling, foot pain, foot stiffness, foot swelling, hand pain, hand stiffness, hand swelling, hip pain, hip stiffness, hip swelling, knee pain, knee stiffness, knee swelling, shoulder pain, shoulder stiffness, shoulder swelling, wrist pain, wrist stiffness, wrist swelling Integumentary: Reports as per HPI Neurological: Reports as per HPI Psychiatric: Reports as per HPI Endocrine: Reports as per HPI Hematologic/Lymphatic: Reports as per HPI Allergic/Immunologic: Reports as per HPI Past Medical History Past Medical History: Asthma, Chest Pain / Angina, Diabetes Mellitus, GERD/Reflux, Hyperlipidemia, Hypertension, Myocardial Infarction (AR), Mitral Valve Prolapse (MVP), Pulmonary Embolus (PE), Sleep Apnea/CPAP/BIPAP Additional Past Medical History / Comment(s): Obesity, chronic asthmatic bronchitis, previous history of pulmonary embolism, objective sleep apnea, diabetes mellitus, hypertension, hyperlipidemia, previous history of myocardial infarction with underlying coronary artery disease, renal cysts, chronic back pain secondary to herniated lumbar disc disease with symptoms of sciatica, history of right lower extremity fracture at the age of 13, history of C. diff colitis approximately 4 years ago, history of bleeding peptic ulcer, nephrolithiasis, previous history of UTI and secondary sepsis. Last Myocardial Infarction Date:: 2011 History of Any Multi-Drug Resistant Organisms: MRSA Date of last positivie culture/infection: 2016 MDRO Source:: left axilla Past Surgical History: Appendectomy, Back Surgery, Cholecystectomy, Heart Catheterization, Hernia Repair Additional Past Surgical History / Comment(s): 2007 back surgery with decompression fusion at [facility], 2011, 2016 cardiac cath, multiple ESWL/ureteral stents/ double J catheters, L inquinal hernia repair, PICC line for ABX for urosepsis-since removed., Hx of c-diff. Past Anesthesia/Blood Transfusion Reactions: No Reported Reaction Past Psychological History: No Psychological Hx Reported Smoking Status: Never smoker Past Alcohol Use History: None Reported Past Drug Use History: None Reported - Past Family History Father Family Medical History: Chest Pain / Angina Additional Family Medical History / Comment(s): "lung problems" Mother Family Medical History: Cancer, Chest Pain / Angina, Congestive Heart Failure (CHF), Osteoarthritis (OA), Thyroid Disorder Medications and Allergies Home Medications Medication Instructions Recorded Confirmed Type Omeprazole [PriLOSEC] 20 mg PO DAILY 12/11/17 10/12/19 History Carvedilol [Coreg] 12.5 mg PO BID 07/22/19 10/12/19 History glipiZIDE XL [Glucotrol XL] 5 mg PO DAILY 07/22/19 10/12/19 History Atorvastatin [Lipitor] 20 mg PO DAILY 08/26/19 10/12/19 History Insulin Glargine,Hum.rec.anlog 20 unit SQ HS 08/26/19 10/12/19 History [Basaglar Kwikpen U-100] Lisinopril [Zestril] 40 mg PO DAILY 08/26/19 10/12/19 History Diclofenac Sodium [Voltaren] 75 mg PO BID PRN 09/01/19 10/12/19 History Diltiazem Cd [Cardizem CD] 300 mg PO DAILY 09/01/19 10/12/19 History Aspirin 325 mg PO DAILY 30 Days #30 tab 09/02/19 10/12/19 Rx Gabapentin [Neurontin] 300 mg PO BID 10/12/19 10/12/19 History oxyCODONE-APAP 10-325MG [Percocet 1 tab PO TID PRN 10/12/19 10/12/19 History 10-325 mg] Allergies Allergy/AdvReac Type Severity Reaction Status Date / Time doxycycline Allergy Swelling Verified 10/12/19 16:28 ketorolac tromethamine Allergy Rash/Hives Verified 10/12/19 16:28 [From Toradol] morphine Allergy Rash/Hives Verified 10/12/19 16:28 metoclopramide HCl AdvReac Dystonic Verified 10/12/19 16:28 [From Reglan] Reaction prochlorperazine edisylate AdvReac Dystonic Verified 10/12/19 16:28 [From Compazine] Reaction prochlorperazine maleate AdvReac Dystonic Verified 10/12/19 16:28 [From Compazine] Reaction Physical Exam Vitals: Vital Signs Temp Pulse Resp BP Pulse Ox 10/12/19 17:03 101.4 F H 135 H 19 136/73 97 10/12/19 13:55 103.0 F H 149 H 19 192/104 98 Intake and Output 10/12/19 10/12/19 10/12/19 06:59 14:59 22:59 Other: Weight 126.099 kg Gen. appearance, comfortable no acute distress obese Head exam was generally normal. There was no scleral icterus or corneal arcus. Mucous membranes were moist. Neck was supple and without jugular venous distension, thyromegaly, or carotid bruits. Carotids were easily palpable bilaterally. There was no adenopathy. Lymphatic less for and the patient has significant crowding of the posterior oropharynx. Lungs sounds are diminished and there is some scattered expiratory wheezes throughout the lung turner bilaterally. No chest wall deformity. Cardiac exam revealed the PMI to be normally situated and sized. The rhythm was regular and no extrasystoles were noted during several minutes of auscultation. The first and second heart sounds were normal and physiologic splitting of the second heart sound was noted. There were no murmurs, rubs, clicks, or gallops. Abdominal exam revealed normal bowel sounds. The abdomen was soft, non-tender, and without masses, organomegaly, or appreciable enlargement of the abdominal aorta. Examination of the extremities revealed easily palpable radial, femoral and pedal pulses. There was no cyanosis, clubbing or edema. Examination of the skin revealed no evidence of significant rashes, suspicious appearing nevi or other concerning lesions. Neurologically awake and alert and there is no focal neurological deficits Psychiatric negative for anxiety or depression Examination of the skin revealed no evidence of significant rashes, suspicious appearing nevi or other concerning lesions. Results - Laboratory Findings CBC and BMP: 10/13/19 03:30 10/13/19 03:30 PT/INR, D-dimer PT 9.5 sec (9.0-12.0) 10/12/19 15:21 INR 0.9 (<1.2) 10/12/19 15:21 Abnormal lab findings: Abnormal Labs 10/12/19 10/12/19 10/12/19 15:21 15:21 15:21 Lymphocytes # 0.2 L APTT 19.4 L Sodium 136 L Carbon Dioxide 20 L Creatinine 0.65 L Glucose 332 H Plasma Lactic Acid Edd Magnesium 1.5 L Alkaline Phosphatase 138 H Ur Specific [place] Urine Protein Urine Glucose (UA) Urine Ketones 10/12/19 10/12/19 15:21 15:40 Lymphocytes # APTT Sodium Carbon Dioxide Creatinine Glucose Plasma Lactic Acid Edd 3.7 H* Magnesium Alkaline Phosphatase Ur Specific [place] 1.043 H Urine Protein Trace H Urine Glucose (UA) 4+ H Urine Ketones 1+ H Assessment and Plan Plan: 1 acute febrile illness along with a dry cough and SOB. The patient was checked for COVID 19 infection and was found to be negative. Nevertheless, this can be a false negative testing and the test needs to be repeated especially that the cli nical suspicion is high. The patient has fever, lymphopenia and increased cough and SOB. The CT of chest is showing minimal ground glass changes in the lung base. The patient presented with tachicardia and some mild lactic acidosis and he was given IV fluids. 2 chronic asthmatic bronchitis 3 Influenza A tracheobronchitis, requiring hospitalization and the patient was admitted on 08/27/2019 and was treated with Tamiflu and was discharged home 4 obstructive sleep apnea maintained on CPAP therapy 5 coronary artery disease 6 diabetes mellitus 7 hypertension 8 remote history of pulmonary embolism, currently on no anticoagulants 9 obesity with BMI 41.6 9 comorbidities all mentioned above in history of present illness, in addition to chronic back pain, previous back and neck surgeries and the patient is currently on medical disability. plan Droplet isolation Repeat the covid 19 testing and a nasal s swab was obtained IV fluids Tylenol for fever monitor oxygenation Monitor lactic acid level resume all medications including insulin I suggest holding on CPAP therapy We'll continue to follow
[2019-10-13 12:02] LABS: Glucose,Whole Blood 219 mg/dL (75-99)
[2019-10-13] MEDS ORDERED: Magnesium Replacement Protocol 1 EACH MISC MISCELLANE PRN (12:23)
--- NOTE | 2019-10-13 14:58 | P.PN ---
Subjective Progress Note Date: 10/13/19 A pleasant 53-year-old male patient, morbidly obese, history of mild intermittent bronchial asthma, diabetes mellitus hypertension and hyperlipidemia and remote history of pulmonary embolism along with history of obstructive sleep apnea maintained on CPAP therapy. his patient was recently admitted to the hospital on 08/27/2019 for acute influenza A tracheobronchitis with secondary asthma exacerbation. The patient is quite symptomatic bronchospastic wheezing shortness of breath. The patient was started on Tamiflu. The patient is also started on a combination of bronchodilators and steroids. The patient improved and he was discharged home. The patient came today to the ED with fever and cough and shortness of breath. Apparently this patient had cough admitted to [facility] for similar symptoms approximately became symptomatic approximately week ago and he admitted himself to [facility]. At that time she apparently had a negative covid test. He is complaining of some nausea as well, no vomiting. CXR-ray is negative for pneumonia. Urinalysis does not show evidence of infection either. CBC does not show any evidence of leukocytosis. Lymphocytopenia is present. CMP does show evidence of lactic acidosis with an anion gap of 16. Plasma lactic acid 3.7. patient was given > 30 mls/kg of fluids n the emergency department and he was given empiric antibiotics in the emergency department. Patient was bolused and heart rate did start to improve. Repeat EKG showed evidence for sinus tachycardia. CT chest angio was additionally obtained which demonstrated he has shows no evidence for PE. Minimal interstitial density at the left lung base slightly increased compared to old exam. No pulmonary consolidation.. The patient was suspected to have coronavirus despite reportedly negative test last week. He was retested and he was admitted to the hospital for further evaluation. On 10/13/2019 on seeing the patient for a follow-up. Covid 19 evaluation was done and the results came back negative. He has a white cell count of 3.9 with a hemoglobin 12.1. He is acting as limited improvement sounds 1.2. Some limited cough and congestion is still present. No fever. No chills. No night sweats. He is pulse ox of 98% on room air oxygen. His breathing is nonlabored at this point in time. Objective - Vital Signs Vital signs: Vital Signs Temp 98.9 F 10/13/19 08:00 Pulse 102 H 10/13/19 12:00 Resp 22 10/13/19 12:00 BP 160/88 10/13/19 08:00 Pulse Ox 98 10/13/19 08:00 Intake & Output 10/12/19 10/13/19 10/13/19 18:59 06:59 18:59 Intake Total 240 Output Total 450 Balance -450 240 Weight 126.099 kg 135 kg Intake: Oral 240 Output: Urine 450 Other: # Voids 1 1 # Bowel Movements 1 0 - Exam Gen. appearance, comfortable no acute distress obese Head exam was generally normal. There was no scleral icterus or corneal arcus. Mucous membranes were moist. Neck was supple and without jugular venous distension, thyromegaly, or carotid bruits. Carotids were easily palpable bilaterally. There was no adenopathy. Lymphatic less for and the patient has significant crowding of the posterior oropharynx. Lungs sounds are diminished and there is some scattered expiratory wheezes throughout the lung turner bilaterally. No chest wall deformity. Cardiac exam revealed the PMI to be normally situated and sized. The rhythm was regular and no extrasystoles were noted during several minutes of auscultation. The first and second heart sounds were normal and physiologic splitting of the second heart sound was noted. There were no murmurs, rubs, clicks, or gallops. Abdominal exam revealed normal bowel sounds. The abdomen was soft, non-tender, and without masses, organomegaly, or appreciable enlargement of the abdominal aorta. Examination of the extremities revealed easily palpable radial, femoral and pedal pulses. There was no cyanosis, clubbing or edema. Examination of the skin revealed no evidence of significant rashes, suspicious appearing nevi or other concerning lesions. Neurologically awake and alert and there is no focal neurological deficits Psychiatric negative for anxiety or depression Examination of the skin revealed no evidence of significant rashes, suspicious appearing nevi or other concerning lesions. - Labs CBC & Chem 7: 10/13/19 03:30 10/13/19 03:30 Labs: Abnormal Lab Results - Last 24 Hours (Table) 10/12/19 10/12/19 10/12/19 Range/Units 15:21 15:21 15:21 Hgb (13.0-17.5) gm/dL Hct (39.0-53.0) % Lymphocytes # 0.2 L (1.0-4.8) k/uL APTT 19.4 L (22.0-30.0) sec D-Dimer (<0.60) mg/L FEU Sodium 136 L (137-145) mmol/L Carbon Dioxide 20 L (22-30) mmol/L Creatinine 0.65 L (0.66-1.25) mg/dL Glucose 332 H (74-99) mg/dL POC Glucose (mg/dL) (75-99) mg/dL Plasma Lactic Acid Edd (0.7-2.0) mmol/L Calcium (8.4-10.2) mg/dL Magnesium 1.5 L (1.6-2.3) mg/dL Alkaline Phosphatase 138 H (38-126) U/L C-Reactive Protein (<10.0) mg/L Total Protein (6.3-8.2) g/dL Albumin (3.5-5.0) g/dL Ur Specific [place] (1.001-1.035) Urine Protein (Negative) Urine Glucose (UA) (Negative) Urine Ketones (Negative) 10/12/19 10/12/19 10/12/19 Range/Units 15:21 15:36 15:36 Hgb (13.0-17.5) gm/dL Hct (39.0-53.0) % Lymphocytes # (1.0-4.8) k/uL APTT (22.0-30.0) sec D-Dimer 1.78 H (<0.60) mg/L FEU Sodium (137-145) mmol/L Carbon Dioxide (22-30) mmol/L Creatinine (0.66-1.25) mg/dL Glucose (74-99) mg/dL POC Glucose (mg/dL) (75-99) mg/dL Plasma Lactic Acid Edd 3.7 H* (0.7-2.0) mmol/L Calcium (8.4-10.2) mg/dL Magnesium (1.6-2.3) mg/dL Alkaline Phosphatase (38-126) U/L C-Reactive Protein 37.2 H (<10.0) mg/L Total Protein (6.3-8.2) g/dL Albumin (3.5-5.0) g/dL Ur Specific [place] (1.001-1.035) Urine Protein (Negative) Urine Glucose (UA) (Negative) Urine Ketones (Negative) 10/12/19 10/12/19 10/12/19 Range/Units 15:40 19:21 20:20 Hgb (13.0-17.5) gm/dL Hct (39.0-53.0) % Lymphocytes # (1.0-4.8) k/uL APTT (22.0-30.0) sec D-Dimer (<0.60) mg/L FEU Sodium (137-145) mmol/L Carbon Dioxide (22-30) mmol/L Creatinine (0.66-1.25) mg/dL Glucose (74-99) mg/dL POC Glucose (mg/dL) 512 H (75-99) mg/dL Plasma Lactic Acid Edd 2.5 H* (0.7-2.0) mmol/L Calcium (8.4-10.2) mg/dL Magnesium (1.6-2.3) mg/dL Alkaline Phosphatase (38-126) U/L C-Reactive Protein (<10.0) mg/L Total Protein (6.3-8.2) g/dL Albumin (3.5-5.0) g/dL Ur Specific [place] 1.043 H (1.001-1.035) Urine Protein Trace H (Negative) Urine Glucose (UA) 4+ H (Negative) Urine Ketones 1+ H (Negative) 10/12/19 10/13/19 10/13/19 Range/Units 23:09 03:30 03:30 Hgb 12.1 L (13.0-17.5) gm/dL Hct 36.9 L (39.0-53.0) % Lymphocytes # 0.6 L (1.0-4.8) k/uL APTT (22.0-30.0) sec D-Dimer (<0.60) mg/L FEU Sodium 133 L (137-145) mmol/L Carbon Dioxide 21 L (22-30) mmol/L Creatinine 0.54 L (0.66-1.25) mg/dL Glucose 245 H (74-99) mg/dL POC Glucose (mg/dL) (75-99) mg/dL Plasma Lactic Acid Edd 2.2 H* (0.7-2.0) mmol/L Calcium 7.9 L (8.4-10.2) mg/dL Magnesium (1.6-2.3) mg/dL Alkaline Phosphatase (38-126) U/L C-Reactive Protein (<10.0) mg/L Total Protein 5.7 L (6.3-8.2) g/dL Albumin 3.3 L (3.5-5.0) g/dL Ur Specific [place] (1.001-1.035) Urine Protein (Negative) Urine Glucose (UA) (Negative) Urine Ketones (Negative) 10/13/19 10/13/19 Range/Units 06:13 11:55 Hgb (13.0-17.5) gm/dL Hct (39.0-53.0) % Lymphocytes # (1.0-4.8) k/uL APTT (22.0-30.0) sec D-Dimer (<0.60) mg/L FEU Sodium (137-145) mmol/L Carbon Dioxide (22-30) mmol/L Creatinine (0.66-1.25) mg/dL Glucose (74-99) mg/dL POC Glucose (mg/dL) 277 H 219 H (75-99) mg/dL Plasma Lactic Acid Edd (0.7-2.0) mmol/L Calcium (8.4-10.2) mg/dL Magnesium (1.6-2.3) mg/dL Alkaline Phosphatase (38-126) U/L C-Reactive Protein (<10.0) mg/L Total Protein (6.3-8.2) g/dL Albumin (3.5-5.0) g/dL Ur Specific [place] (1.001-1.035) Urine Protein (Negative) Urine Glucose (UA) (Negative) Urine Ketones (Negative) Assessment and Plan Plan: 1 acute febrile illness along with a dry cough and SOB. The patient was checked for COVID 19 infection and was found to be negative. Nevertheless, this can be a false negative testing and the test needs to be repeated especially that the clinical suspicion is high. The patient has fever, lymphopenia and increased cough and SOB. The CT of chest is showing minimal ground glass changes in the lung base. The patient presented with tachicardia and some mild lactic acidosis and he was given IV fluids. The evaluation for Covid 19 was reported on 10/13/2019 being negative and the patient is on room air oxygen with a pulse of 78%. 2 chronic asthmatic bronchitis 3 Influenza A tracheobronchitis, requiring hospitalization and the patient was admitted on 08/27/2019 and was treated with Tamiflu and was discharged home 4 obstructive sleep apnea maintained on CPAP therapy 5 coronary artery disease 6 diabetes mellitus 7 hypertension 8 remote history of pulmonary embolism, currently on no anticoagulants 9 obesity with BMI 41.6 9 comorbidities all mentioned above in history of present illness, in addition to chronic back pain, previous back and neck surgeries and the patient is currently on medical disability. plan repeat Covid 19 reevaluation came back negative Continued IV IV fluids Tylenol for fever monitor oxygenation Monitor lactic acid level in the lactic acid level is improving Add DuoNeb nebulized treatments around the clock May restart using CPAP from home Suggest discontinuing the vancomycin
[2019-10-13] MEDS: oxyCODONE-APAP 10-325MG 1 EACH TAB PO PRN (15:54)
[2019-10-13] MEDS: metroNIDAZOLE 500 MG TAB PO SCH ×2 (15:55→21:34)
[2019-10-13] MEDS: IOPAMIDOL CONTRAST (ORAL USE) VIAL PO PRN ×2 (15:55→16:37)
[2019-10-13] MEDS ORDERED: IPRATROPIUM-ALBUTEROL 3 ML NEB INHALATION SCH (16:00)
[2019-10-13] MEDS: ALBUTEROL HFA INHALER INHALATION SCH (16:10)
[2019-10-13 17:01] LABS: Glucose,Whole Blood 144 mg/dL (75-99)
[2019-10-13] MEDS ORDERED: Potassium Replacement Protocol 1 EACH MISC MISCELLANE PRN (17:26)
--- NOTE | 2019-10-13 17:50 | CT ---
EXAMINATION TYPE: CT abdomen pelvis wo con DATE OF EXAM: 10/13/2019 COMPARISON: 07/24/2019 HISTORY: abdominal pain, fever CT DLP: 1791.2 mGycm Automated exposure control for dose reduction was used. Multiple axial sections were obtained from the diaphragm to the floor the pelvis with no IV contrast. There is oral contrast. There is mild interstitial density at the lung bases. There is diffuse fatty infiltration of the live r. There are clips from cholecystectomy. Spleen is intact. Stomach is intact. There is no evidence of a pancreatic mass. There is no adrenal mass. There is 3 cm cortical cyst anterior right kidney. Kidneys have normal size . There is no hydronephrosis. Ureters are not dilated. There is no retroperitoneal adenopathy. There is hysterectomy. There is high attenuation in the bladder consistent with contrast exam yesterday. Th ere is no inguinal hernia. There is no free fluid in the pelvis. There is no evidence of a pelvic mas s. There are some large bowel fluid levels down to the rectum. There is no mesenteric edema. There is no ascites or free air. There is no sign of a bowel obstructio n. There are some loops of jejunum in the left upper quadrant with mild wall thickening up to 1 cm. There is posterior fusion surgery from L3 to S1. Lumbar vertebra have normal alignment. There is no c ompression fracture. The bony pelvis appears intact. IMPRESSION: There are a few jejunal loops with wall thickening that could relate to gastroenteritis. This appears new compared to old exam. Fatty infiltration of the liver. Large bowel fluid down to the rectum consistent with diarrhea. Mild interstitial increased density in the lower lobes appears new compared to old exam.
[2019-10-13] MEDS ORDERED: POTASSIUM CHLORIDE ER 20 MEQ TAB.ER PO SCH (18:00)
[2019-10-13] MEDS: MAGNESIUM SULFATE-D5W PMX 1 GM in DEXTROSE/WATER 1 100ML.BAG IVPB SCH ×2 (18:24→21:34)
[2019-10-13 20:37] LABS: Glucose,Whole Blood 143 mg/dL (75-99)
[2019-10-13] MEDS: INSULIN DETEMIR (LEVEMIR) 100 UNIT/ML SYR SQ SCH (21:33)
--- NOTE | 2019-10-13 22:33 | P.HPIM ---
History of Present Illness H&P Date: 10/13/19 Chief Complaint: Fever and shortness of breath Patient is a 53-year-old male with a known history of asthma, diabetes type 2, hypertension, hyperlipidemia, GERD, history of [place], mitral valve prolapse, history of PE and obstructive sleep apnea and also morbid obesity came to ER with complaints of fever and shortness of breath and cough. Patient says that he was admitted to [facility] with similar complaints about a week ago and was in the hospital for 4 days. Patient was tested negative for Covid and was sent home. Patient never recovered completely. Has been having nausea vomiting and also diarrhea along with fever and shortness of breath. Patient wa s febrile when he initially presented to the hospital with T-max of 103F and was also tachycardic with shallow breathing. Patient was given empiric antibiotics and IV fluids in the ER. EKG showed sinus tachycardia Chest x-ray showed no acute cardio pulmonary process. No evidence of pneumonia.. CT angiogram showed no evidence of pulmonary embolism. Minimal interstitial density at the left lung base slightly increased compared to old exam. No pulmonary consolidation. Due to fever shortness of breath and dry cough, Covid 90 test was again sent. WBC 7.4 Lymphocytes 0.2, d-dimer 1.78 Lactic acid 3.7, magnesium 1.5, blood sugar 332, CRP 37.2 Covid repeat test is negative. Patient was seen by ID and CT of the abdomen pelvis was ordered due to diarrhea and nausea vomiting. Review of Systems Constitutional: Patient does have fever, chills and generalized weakness.. Abdomen: Nausea vomiting and diarrhea. Minimal abdominal pain. Cardiovascular: Patient denies any chest pain or short of breath no palpitations. Respiratory: patient denied any cough is from production. No shortness of breath Neurologic: Patient denied any numbness or tingling headache. Musculoskeletal: Patient denies any complaints of joint swelling or deformity. Skin: Negative Psychiatric: Negative Endocrine: No heat or cold intolerance. No recent weight gain. Genitourinary: No dysuria or hematuria. All other 14 point ROS negative except the above Past Medical History Past Medical History: Asthma, Chest Pain / Angina, Diabetes Mellitus, GERD/Reflux, Hyperlipidemia, Hypertension, Myocardial Infarction ([place]), Mitral Valve Prolapse (MVP), Pulmonary Embolus (PE), Sleep Apnea/CPAP/BIPAP Additional Past Medical History / Comment(s): Obesity, chronic asthmatic bronch itis, previous history of pulmonary embolism, objective sleep apnea, diabetes mellitus, hypertension, hyperlipidemia, previous history of myocardial infarction with underlying coronary artery disease, renal cysts, chronic back pain secondary to herniated lumbar disc disease with symptoms of sciatica, history of right lower extremity fracture at the age of 13, history of C. diff colitis approximately 4 years ago, history of bleeding peptic ulcer, nephrolithiasis, previous history of UTI and secondary sepsis. Last Myocardial Infarction Date:: 2011 History of Any Multi-Drug Resistant Organisms: MRSA Date of last positivie culture/infection: 2016 MDRO Source:: left axilla Past Surgical History: Appendectomy, Back Surgery, Cholecystectomy, Heart Catheterization, Hernia Repair Additional Past Surgical History / Comment(s): 2007 back surgery with decompression fusion at [facility], 2011, 2016 cardiac cath, multiple ESWL/ureteral stents/ double J catheters, L inquinal hernia repair, PICC line for ABX for urosepsis-since removed., Hx of c-diff. Past Anesthesia/Blood Transfusion Reactions: No Reported Reaction Past Psychological History: No Psychological Hx Reported Smoking Status: Never smoker Past Alcohol Use History: None Reported Past Drug Use History: None Reported - Past Family History Father Family Medical History: Chest Pain / Angina Additional Family Medical History / Comment(s): "lung problems" Mother Family Medical History: Cancer, Chest Pain / Angina, Congestive Heart Failure (CHF), Osteoarthritis (OA), Thyroid Disorder Medications and Allergies Home Medications Medication Instructions Recorded Confirmed Type Omeprazole [PriLOSEC] 20 mg PO DAILY 12/11/17 10/12/19 History Carvedilol [Coreg] 12.5 mg PO BID 07/22/19 10/12/19 History glipiZIDE XL [Glucotrol XL] 5 mg PO DAILY 07/22/19 10/12/19 History Atorvastatin [Lipitor] 20 mg PO DAILY 08/26/19 10/12/19 History Insulin Glargine,Hum.rec.anlog 20 unit SQ HS 08/26/19 10/12/19 History [Basaglar Kwikpen U-100] Lisinopril [Zestril] 40 mg PO DAILY 08/26/19 10/12/19 History Diclofenac Sodium [Voltaren] 75 mg PO BID PRN 09/01/19 10/12/19 History Diltiazem Cd [Cardizem CD] 300 mg PO DAILY 09/01/19 10/12/19 History Aspirin 325 mg PO DAILY 30 Days #30 tab 09/02/19 10/12/19 Rx Gabapentin [Neurontin] 300 mg PO BID 10/12/19 10/12/19 History oxyCODONE-APAP 10-325MG [Percocet 1 tab PO TID PRN 10/12/19 10/12/19 History 10-325 mg] Allergies Allergy/AdvReac Type Severity Reaction Status Date / Time doxycycline Allergy Swelling Verified 10/12/19 16:28 ketorolac tromethamine Allergy Rash/Hives Verified 10/12/19 16:28 [From Toradol] morphine Allergy Rash/Hives Verified 10/12/19 16:28 metoclopramide HCl AdvReac Dystonic Verified 10/12/19 16:28 [From Reglan] Reaction prochlorperazine edisylate AdvReac Dystonic Verified 10/12/19 16:28 [From Compazine] Reaction prochlorperazine maleate AdvReac Dystonic Verified 10/12/19 16:28 [From Compazine] Reaction Physical Exam Vitals: Vital Signs Temp Pulse Pulse Resp BP BP Pulse Ox 10/13/19 12:00 102 H 22 10/13/19 08:00 98.9 F 102 H 22 160/88 98 10/13/19 03:10 98.3 F 111 H 20 130/83 97 10/12/19 23:05 99.4 F 112 H 20 118/64 98 10/12/19 21:00 99.7 F H 10/12/19 20:00 100.1 F H 130 H 22 169/88 97 10/12/19 19:30 22 10/12/19 17:03 101.4 F H 135 H 19 136/73 97 Intake and Output 10/12/19 10/13/19 10/13/19 22:59 06:59 14:59 Intake Total 240 Output Total 450 Balance -450 240 Intake: Oral 240 Output: Urine 450 Other: # Voids 1 1 # Bowel Movements 2 1 0 Weight 126.099 kg 135 kg PHYSICAL EXAMINATION: Patient is lying in the bed comfortably, mild distress, awake alert and oriented.. HEENT: Normocephalic. Neck is supple. Pupils reactive. Nostrils clear. Oral cavity is moist. Ears reveal no drainage. Neck reveals no JVD, carotid bruits, or thyromegaly. CHEST EXAMINATION: Trachea is central. Symmetrical expansion. Bibasilar diminished air entry, scattered rhonchi. Lung turner clear to auscultation and percussion. CARDIAC: Normal S1, S2 with no gallops. No murmurs ABDOMEN: Soft. Bowel sounds normal. No organomegaly. No abdominal bruits. Extremities: reveal no edema. No clubbing or cyanosis Neurologically awake, alert, oriented x3 with well-coordinated movements. No focal deficits noted Skin: No rash or skin lesions. Psychiatric: Coperative. Nonsuicidal Musculoskeletal: No joint swelling or deformity. Normal range of motion. Results CBC & Chem 7: 10/13/19 03:30 10/13/19 03:30 Labs: Abnormal Lab Results - Last 24 Hours (Table) 10/12/19 10/12/19 10/12/19 Range/Units 15:21 15:21 15:21 Hgb (13.0-17.5) gm/dL Hct (39.0-53.0) % Lymphocytes # 0.2 L (1.0-4.8) k/uL APTT 19.4 L (22.0-30.0) sec D-Dimer (<0.60) mg/L FEU Sodium 136 L (137-145) mmol/L Carbon Dioxide 20 L (22-30) mmol/L Creatinine 0.65 L (0.66-1.25) mg/dL Glucose 332 H (74-99) mg/dL POC Glucose (mg/dL) (75-99) mg/dL Plasma Lactic Acid Edd (0.7-2.0) mmol/L Calcium (8.4-10.2) mg/dL Magnesium 1.5 L (1.6-2.3) mg/dL Alkaline Phosphatase 138 H (38-126) U/L C-Reactive Protein (<10.0) mg/L Total Protein (6.3-8.2) g/dL Albumin (3.5-5.0) g/dL Ur Specific [place] (1.001-1.035) Urine Protein (Negative) Urine Glucose (UA) (Negative) Urine Ketones (Negative) 10/12/19 10/12/19 10/12/19 Range/Units 15:21 15:36 15:36 Hgb (13.0-17.5) gm/dL Hct (39.0-53.0) % Lymphocytes # (1.0-4.8) k/uL APTT (22.0-30.0) sec D-Dimer 1.78 H (<0.60) mg/L FEU Sodium (137-145) mmol/L Carbon Dioxide (22-30) mmol/L Creatinine (0.66-1.25) mg/dL Glucose (74-99) mg/dL POC Glucose (mg/dL) (75-99) mg/dL Plasma Lactic Acid Edd 3.7 H* (0.7-2.0) mmol/L Calcium (8.4-10.2) mg/dL Magnesium (1.6-2.3) mg/dL Alkaline Phosphatase (38-126) U/L C-Reactive Protein 37.2 H (<10.0) mg/L Total Protein (6.3-8.2) g/dL Albumin (3.5-5.0) g/dL Ur Specific [place] (1.001-1.035) Urine Protein (Negative) Urine Glucose (UA) (Negative) Urine Ketones (Negative) 10/12/19 10/12/19 10/12/19 Range/Units 15:40 19:21 20:20 Hgb (13.0-17.5) gm/dL Hct (39.0-53.0) % Lymphocytes # (1.0-4.8) k/uL APTT (22.0-30.0) sec D-Dimer (<0.60) mg/L FEU Sodium (137-145) mmol/L Carbon Dioxide (22-30) mmol/L Creatinine (0.66-1.25) mg/dL Glucose (74-99) mg/dL POC Glucose (mg/dL) 512 H (75-99) mg/dL Plasma Lactic Acid Edd 2.5 H* (0.7-2.0) mmol/L Calcium (8.4-10.2) mg/dL Magnesium (1.6-2.3) mg/dL Alkaline Phosphatase (38-126) U/L C-Reactive Protein (<10.0) mg/L Total Protein (6.3-8.2) g/dL Albumin (3.5-5.0) g/dL Ur Specific [place] 1.043 H (1.001-1.035) Urine Protein Trace H (Negative) Urine Glucose (UA) 4+ H (Negative) Urine Ketones 1+ H (Negative) 10/12/19 10/13/19 10/13/19 Range/Units 23:09 03:30 03:30 Hgb 12.1 L (13.0-17.5) gm/dL Hct 36.9 L (39.0-53.0) % Lymphocytes # 0.6 L (1.0-4.8) k/uL APTT (22.0-30.0) sec D-Dimer (<0.60) mg/L FEU Sodium 133 L (137-145) mmol/L Carbon Dioxide 21 L (22-30) mmol/L Creatinine 0.54 L (0.66-1.25) mg/dL Glucose 245 H (74-99) mg/dL POC Glucose (mg/dL) (75-99) mg/dL Plasma Lactic Acid Edd 2.2 H* (0.7-2.0) mmol/L Calcium 7.9 L (8.4-10.2) mg/dL Magnesium (1.6-2.3) mg/dL Alkaline Phosphatase (38-126) U/L C-Reactive Protein (<10.0) mg/L Total Protein 5.7 L (6.3-8.2) g/dL Albumin 3.3 L (3.5-5.0) g/dL Ur Specific [place] (1.001-1.035) Urine Protein (Negative) Urine Glucose (UA) (Negative) Urine Ketones (Negative) 10/13/19 10/13/19 Range/Units 06:13 11:55 Hgb (13.0-17.5) gm/dL Hct (39.0-53.0) % Lymphocytes # (1.0-4.8) k/uL APTT (22.0-30.0) sec D-Dimer (<0.60) mg/L FEU Sodium (137-145) mmol/L Carbon Dioxide (22-30) mmol/L Creatinine (0.66-1.25) mg/dL Glucose (74-99) mg/dL POC Glucose (mg/dL) 277 H 219 H (75-99) mg/dL Plasma Lactic Acid Edd (0.7-2.0) mmol/L Calcium (8.4-10.2) mg/dL Magnesium (1.6-2.3) mg/dL Alkaline Phosphatase (38-126) U/L C-Reactive Protein (<10.0) mg/L Total Protein (6.3-8.2) g/dL Albumin (3.5-5.0) g/dL Ur Specific [place] (1.001-1.035) Urine Protein (Negative) Urine Glucose (UA) (Negative) Urine Ketones (Negative) Thrombosis Risk Factor Assmnt - DVT/VTE Prophylaxis DVT/VTE Prophylaxis: Pharmacologic Prophylaxis ordered - Choose All That Apply Any of the Below Risk Factors Present?: Yes Each Factor Represents 1 point: Abnormal pulmonary function (COPD), Age 41-60 years, Obesity (BMI >25), Serious lung disease incl. pneumonia (< 1month), Swollen legs (current) Other Risk Factors: Yes Each Risk Factor Represents 3 Points: History of DVT/PE Other congenital or acquired thrombophilia - If yes, enter type in comment: No Thrombosis Risk Factor Assessment Total Risk Factor Score: 8 Thrombosis Risk Factor Assessment Level: High Risk Assessment and Plan Assessment: Fever, dry cough and shortness of breath. Suspected Covid 19 while infection. Repeat test is negative. Nausea vomiting and diarrhea. Improving Lactic acidosis Chronic bronchial asthma Recent history of influenza a bronchitis and hospitalization in August 2019 Obstructive sleep apnea on CPAP Morbid obesity BMI 41.5 Hypertension Diabetes type 2 History of pulmonary embolism Mitral valve prolapse history History of C. diff colitis 4 years ago History of peptic ulcer disease. Nephrolithiasis GI and DVT prophylaxis with heparin subcu plan Patient will be continued on IV hydration and follow-up lactic acid level. Replace electrolyte. Was given broad-spectrum antibiotics. Repeat Covid 19 test is negative. Pulmonary is following. Patient was started on ceftriaxone and Flagyl. CT of the abdomen and pelvis was ordered due to diarrhea and abdominal discomfort. Continue with home medications and follow closely. Follow-up culture reports. Fever has resolved now. Anticipate discharge next 24-48 hours once patient improves clinically. Time with Patient: Greater than 30
[2019-10-14] MEDS: oxyCODONE-APAP 10-325MG 1 EACH TAB PO PRN ×3 (00:04→21:20)
[2019-10-14] MEDS: HEPARIN SODIUM,PORCINE 5,000 UNIT/ML 1 ML VIAL SQ SCH ×4 (00:04→23:41)
[2019-10-14] MEDS: SODIUM CHLORIDE 0.9% 1,000 ML IV SCH ×4 (03:59→23:42)
[2019-10-14] MEDS: ALBUTEROL HFA INHALER INHALATION SCH ×5 (06:16→20:07)
[2019-10-14] MEDS: ONDANSETRON 4 MG/2 ML VIAL IVP PRN (06:32)
[2019-10-14 07:00] LABS: Glucose,Whole Blood 179 mg/dL (75-99)
[2019-10-14] MEDS: guaiFENesin 600 MG TABLET.ER PO SCH ×2 (08:00→21:19)
[2019-10-14] MEDS: PANTOPRAZOLE 40 MG TABLET PO SCH (08:00)
[2019-10-14] MEDS: ATORVASTATIN 20 MG TAB PO SCH (08:00)
[2019-10-14] MEDS: DILTIAZEM CD 300 MG CAP.ER.24H PO SCH (08:00)
[2019-10-14] MEDS: ASPIRIN 325 MG TAB PO SCH (08:00)
[2019-10-14] MEDS: GABAPENTIN 300 MG CAP PO SCH ×2 (08:00→21:21)
[2019-10-14] MEDS: metroNIDAZOLE 500 MG TAB PO SCH ×3 (08:00→21:21)
[2019-10-14] MEDS: CARVEDILOL 12.5 MG TAB PO SCH ×2 (08:00→17:27)
[2019-10-14] MEDS: LISINOPRIL 20 MG TAB PO SCH (08:01)
[2019-10-14] MEDS: INSULIN ASPART (NovoLOG) 100 UNIT/ML VIAL SQ SCH ×4 (08:01→21:19)
--- NOTE | 2019-10-14 08:24 | P.CONS ---
History of Present Illness - Reason for Consult Consult date: 10/13/19 FUO Requesting physician: Maximilian Chaparro - Chief Complaint vomiting , diarrhea and fever x few days - History of Present Illness Patient is a 53-year male presenting to the ER with chief complaints of nausea vomiting diarrhea and fever the patient symptom has been going on on for more than a week now patient was recently admitted at [facility] with similar symptoms He did have COVID19 testing that was negative and the patient subsequent discharged home with no further work-up patient did have multiple source of vomiting no hematemesis has been complaining some cramping lower abdominal pain intensity 4 to 5-10 and no radiation and also have multiple loose stools but denies any blood or mucus in the stool with the symptom had the patient was evaluated by the ER physician on arrival to the ER patient did have a fever of 103 F patient has been tachycardic with heart rate 130s patient did have a normal white count did have some lymphopenia LDH was normal blood culture results are currently negative patient did have a chest x-ray which was negative for any acute cardiopulmonary disease CT angiogram was done as well the lungs are clear of consolidation some atelectasis infectious was consulted for further recommendation regarding his persistent fever and no clear source patient did have a UA that was negative influenza PCR was done negative in the coronary tree and repeat testing came back negative as well, patient did mention that he did have a low mom some similar symptoms at home Review of Systems Positive point has been mentioned in HPI rest of the systems are negative Past Medical History Past Medical History: Asthma, Chest Pain / Angina, Diabetes Mellitus, SOFÍA D/Reflux, Hyperlipidemia, Hypertension, Myocardial Infarction ([place]), Mitral Valve Prolapse (MVP), Pulmonary Embolus (PE), Sleep Apnea/CPAP/BIPAP Additional Past Medical History / Comment(s): Obesity, chronic asthmatic bronchitis, previous history of pulmonary embolism, objective sleep apnea, diabetes mellitus, hypertension, hyperlipidemia, previous history of myocardial infarction with underlying coronary artery disease, renal cysts, chronic back pain secondary to herniated lumbar disc disease with symptoms of sciatica, history of right lower extremity fracture at the age of 13, history of C. diff colitis approximately 4 years ago, history of bleeding peptic ulcer, ne phrolithiasis, previous history of UTI and secondary sepsis. Last Myocardial Infarction Date:: 2011 History of Any Multi-Drug Resistant Organisms: MRSA Year Discovered:: 2016 MDRO Source:: left axilla Past Surgical History: Appendectomy, Back Surgery, Cholecystectomy, Heart Catheterization, Hernia Repair Additional Past Surgical History / Comment(s): 2007 back surgery with decompression fusion at [facility], 2011, 2016 cardiac cath, multiple ESWL/ureteral stents/ double J catheters, L inquinal hernia repair, PICC line for ABX for urosepsis-since removed., Hx of c-diff. Past Anesthesia/Blood Transfusion Reactions: No Reported Reaction Past Psychological History: No Psychological Hx Reported Smoking Status: Never smoker Past Alcohol Use History: None Reported Past Drug Use History: None Reported - Past Family History Father Family Medical History: Chest Pain / Angina Additional Family Medical History / Comment(s): "lung problems" Mother Family Medical History: Cancer, Chest Pain / Angina, Congestive Heart Failure (CHF), Osteoarthritis (OA), Thyroid Disorder Medications and Allergies Home Medications Medication Instructions Recorded Confirmed Type Omeprazole [PriLOSEC] 20 mg PO DAILY 12/11/17 10/12/19 History Carvedilol [Coreg] 12.5 mg PO BID 07/22/19 10/12/19 History glipiZIDE XL [Glucotrol XL] 5 mg PO DAILY 07/22/19 10/12/19 History Atorvastatin [Lipitor] 20 mg PO DAILY 08/26/19 10/12/19 History Insulin Glargine,Hum.rec.anlog 20 unit SQ HS 08/26/19 10/12/19 History [Basaglar Kwikpen U-100] Lisinopril [Zestril] 40 mg PO DAILY 08/26/19 10/12/19 History Diclofenac Sodium [Voltaren] 75 mg PO BID PRN 09/01/19 10/12/19 History Diltiazem Cd [Cardizem CD] 300 mg PO DAILY 09/01/19 10/12/19 History Aspirin 325 mg PO DAILY 30 Days #30 tab 09/02/19 10/12/19 Rx Gabapentin [Neurontin] 300 mg PO BID 10/12/19 10/12/19 History oxyCODONE-APAP 10-325MG [Percocet 1 tab PO TID PRN 10/12/19 10/12/19 History 10-325 mg] Allergies Allergy/AdvReac Type Severity Reaction Status Date / Time doxycycline Allergy Swelling Verified 10/12/19 16:28 ketorolac tromethamine Allergy Rash/Hives Verified 10/12/19 16:28 [From Toradol] morphine Allergy Rash/Hives Verified 10/12/19 16:28 metoclopramide HCl AdvReac Dystonic Verified 10/12/19 16:28 [From Reglan] Reaction prochlorperazine edisylate AdvReac Dystonic Verified 10/12/19 16:28 [From Compazine] Reaction prochlorperazine maleate AdvReac Dystonic Verified 10/12/19 16:28 [From Compazine] Reaction Physical Exam Vitals: Vital Signs Temp Pulse Resp BP BP Pulse Ox 10/13/19 20:30 98.2 F 85 20 130/73 97 10/13/19 16:00 98.9 F 86 20 128/73 95 10/13/19 12:00 98.8 F 90 20 135/72 96 10/13/19 08:00 98.9 F 102 H 22 160/88 98 10/13/19 03:10 98.3 F 111 H 20 130/83 97 10/12/19 23:05 99.4 F 112 H 20 118/64 98 Intake and Output 10/13/19 10/13/19 10/13/19 06:59 14:59 22:59 Intake Total 240 240 Balance 240 240 Intake: Oral 240 240 Other: # Voids 1 1 1 # Bowel Movements 1 0 1 Weight 135 kg GENERAL DESCRIPTION: Middle-aged male lying in bed, no distress. No tachypnea or accessory muscle of respiration use. HEENT: Shows Pallor , no scleral icterus. Oral mucous membrane is dry. NECK: Trachea central, no thyromegaly. LUNGS: Unlabored breathing. Clear to auscultation anteriorly. No wheeze or crackle. HEART: S1, S2, regular rate and rhythm. ABDOMEN: Soft, no tenderness , guarding or rigidity EXTREMITIES: No edema of feet. SKIN: No rash, no masses palpable. NEUROLOGICAL: The patient is awake, alert, oriented x3, mood and affect normal. Results CBC & Chem 7: 10/13/19 03:30 10/13/19 03:30 Labs: Abnormal Lab Results - Last 24 Hours (Table) 10/12/19 10/13/19 10/13/19 Range/Units 23:09 03:30 03:30 Hgb 12.1 L (13.0-17.5) gm/dL Hct 36.9 L (39.0-53.0) % Lymphocytes # 0.6 L (1.0-4.8) k/uL Sodium 133 L (137-145) mmol/L Carbon Dioxide 21 L (22-30) mmol/L Creatinine 0.54 L (0.66-1.25) mg/dL Glucose 245 H (74-99) mg/dL POC Glucose (mg/dL) (75-99) mg/dL Plasma Lactic Acid Edd 2.2 H* (0.7-2.0) mmol/L Calcium 7.9 L (8.4-10.2) mg/dL Total Protein 5.7 L (6.3-8.2) g/dL Albumin 3.3 L (3.5-5.0) g/dL 10/13/19 10/13/19 10/13/19 Range/Units 06:13 11:55 16:50 Hgb (13.0-17.5) gm/dL Hct (39.0-53.0) % Lymphocytes # (1.0-4.8) k/uL Sodium (137-145) mmol/L Carbon Dioxide (22-30) mmol/L Creatinine (0.66-1.25) mg/dL Glucose (74-99) mg/dL POC Glucose (mg/dL) 277 H 219 H 144 H (75-99) mg/dL Plasma Lactic Acid Edd (0.7-2.0) mmol/L Calcium (8.4-10.2) mg/dL Total Protein (6.3-8.2) g/dL Albumin (3.5-5.0) g/dL 10/13/19 Range/Units 20:29 Hgb (13.0-17.5) gm/dL Hct (39.0-53.0) % Lymphocytes # (1.0-4.8) k/uL Sodium (137-145) mmol/L Carbon Dioxide (22-30) mmol/L Creatinine (0.66-1.25) mg/dL Glucose (74-99) mg/dL POC Glucose (mg/dL) 143 H (75-99) mg/dL Plasma Lactic Acid Edd (0.7-2.0) mmol/L Calcium (8.4-10.2) mg/dL Total Protein (6.3-8.2) g/dL Albumin (3.5-5.0) g/dL Microbiology - Last 24 Hours (Table) 10/13/19 16:45 Stool Culture - Preliminary Stool 10/12/19 15:21 Blood Culture - Preliminary Blood No Growth after 24 hours Assessment and Plan Assessment: patient presented to the hospital with sepsis in this patient did have a fever and tachycardia patient did have predominantly GI symptoms with concern for gastroenteritis questionably viral versus bacterial versus other intra-abdominal pathology recommend covering for enteric gram-negative both aerobes and anaerobes while waiting for the work-up to finalize (1) Sepsis Current Visit: Yes Status: Acute Code(s): A41.9 - SEPSIS, UNSPECIFIED ORGANISM SNOMED Code(s): 86252783 (2) Gastroenteritis Current Visit: Yes Status: Acute Code(s): K52.9 - NONINFECTIVE GASTROENTERITIS AND COLITIS, UNSPECIFIED SNOMED Code(s): 20930889 Plan: 1-we will check a stool for C. difficile and check stool culture 2-we will obtain a CT of abdominal pelvis 3-empirically add Rocephin 1 g daily and Flagyl 500 p.o. every 8 hour 4-gentle IV fluid We will follow on clinical condition and cultures to further adjust medication if needed Thank you for this consultation we will follow the patient along with you Time with Patient: Greater than 30
[2019-10-14] MEDS ORDERED: VANCOMYCIN TROUGH DUE 1 EACH MISC MISCELLANE ONE (09:00)
[2019-10-14 09:31] LABS: African American GFR (CKD) >90 (>60 ml/min/1.73 sqM); Anion Gap 8 mmol/L; Blood Urea Nitrogen 10 mg/dL (9-20); Calcium 7.9 mg/dL (8.4-10.2); Carbon Dioxide 22 mmol/L (22-30); Chloride 107 mmol/L (98-107); Glucose 172 mg/dL (74-99); Magnesium 1.8 mg/dL (1.6-2.3); Non-African American GFR(CKD) >90 (>60 ml/min/1.73 sqM); Potassium 3.5 mmol/L (3.5-5.1); Sodium 137 mmol/L (137-145)
[2019-10-14 09:45] LABS: Basophils % (A) 0 %; Eosinophils # (A) 0.2 k/uL (0-0.7); Eosinophils % (A) 5 %; HCT 35.1 % (39.0-53.0); HGB 11.7 gm/dL (13.0-17.5); Lymphocytes # (A) 0.8 k/uL (1.0-4.8); Lymphocytes % (A) 20 %; MCH 28.5 pg (25.0-35.0); MCHC 33.4 g/dL (31.0-37.0); MCV 85.4 fL (80.0-100.0); Mean Platelet Volume 7.3; Monocytes # (A) 0.2 k/uL (0-1.0); Monocytes % (A) 5 %; Neutrophils # (A) 2.5 k/uL (1.3-7.7); Neutrophils % (A) 65 %; Platelet Count 220 k/uL (150-450); RBC 4.11 m/uL (4.30-5.90); RDW 13.7 % (11.5-15.5); WBC 3.8 k/uL (3.8-10.6)
[2019-10-14 11:31] LABS: Glucose,Whole Blood 131 mg/dL (75-99)
--- NOTE | 2019-10-14 13:00 | ECHOF ---
Referral Reason:Sepsis, tachycardia MEASUREMENTS -------- HEIGHT: 180.3 cm WEIGHT: 89.4 kg BP: 130/69 RVIDd: 3.8 cm (< 3.3) IVSd: 1.0 cm (0.6 - 1.1) LVIDd: 3.9 cm (3.9 - 5.3) LVPWd: 1.5 cm (0.6 - 1.1) IVSs: 1.7 cm LVIDs: 3.2 cm LVPWs: 2.1 cm LAESV Index (A-L): 33.25 ml/m Ao Diam: 3.0 cm (2.0 - 3.7) AV Cusp: 2.0 cm (1.5 - 2.6) LA Diam: 3.6 cm (2.7 - 3.8) MV EXCURSION: 14.837 mm (> 18.000) MV EF SLOPE: 158 mm/s (70 - 150) EPSS: 0.7 cm MV E Home: 1.17 m/s MV DecT: 130 ms MV A Home: 0.79 m/s MV E/A Ratio: 1.49 RAP: 5.00 mmHg RVSP: 10.74 mmHg FINDINGS -------- Sinus rhythm. This was a technically difficult study with suboptimal views. The left ventricular size is normal. There is mild concentric left ventricular hypertrophy. Overa ll left ventricular systolic function is normal with, an EF between 55 - 60 %. The diastolic fillin g pattern is normal for the age of the patient 10.12. The right ventricle is mild to moderately enlarged. LA is midly dilated 29-33ml/m2. The right atrial size is normal. Lumason used The aortic valve is trileaflet, and appears structurally normal. No aortic stenosis or regurgitation. The mitral valve is normal. There is trace mitral regurgitation. The tricuspid valve appears structurally normal. Mild tricuspid regurgitation present. Right vent ricular systolic pressure is normal at < 35 mmHg. There is no pulmonic regurgitation present. The aortic root size is normal. IVC Not well visulized. There is no pericardial effusion. CONCLUSIONS -------- 1. There is mild concentric left ventricular hypertrophy. 2. Overall left ventricular systolic function is normal with, an EF between 55 - 60 %. 3. The diastolic filling pattern is normal for the age of the patient 10.12 4. The right ventricle is mild to moderately enlarged. 5. LA is midly dilated 29-33ml/m2. 6. Lumason used 7. The aortic valve is trileaflet, and appears structurally normal. No aortic stenosis or regurgitati on. 8. There is trace mitral regurgitation. 9. Mild tricuspid regurgitation present. 10. Right ventricular systolic pressure is normal at < 35 mmHg. 11. IVC Not well visulized. STACK YIELD ENGINEER: Divina Turpin RDCS
--- NOTE | 2019-10-14 13:16 | P.PN ---
Subjective Progress Note Date: 10/14/19 A pleasant 53-year-old male patient, morbidly obese, history of mild intermittent bronchial asthma, diabetes mellitus hypertension and hyperlipidemia and remote history of pulmonary embolism along with history of obstructive sleep apnea maintained on CPAP therapy. his patient was recently admitted to the hospital on 08/27/2019 for acute influenza A tracheobronchitis with secondary asthma exacerbation. The patient is quite symptomatic bronchospastic wheezing shortness of breath. The patient was started on Tamiflu. The patient is also started on a combination of bronchodilators and steroids. The patient improved and he was discharged home. The patient came today to the ED with fever and cough and shortness of breath. Apparently this patient had cough admitted to [facility] for similar symptoms approximately became symptomatic approximately week ago and he admitted himself to [facility]. At that time she apparently had a negative covid test. He is complaining of some nausea as well, no vomiting. CXR-ray is negative for pneumonia. Urinalysis does not show evidence of infection either. CBC does not show any evidence of leukocytosis. Lymphocytopenia is present. CMP does show evidence of lactic acidosis with an anion gap of 16. Plasma lactic acid 3.7. patient was given > 30 mls/kg of fluids n the emergency department and he was given empiric antibiotics in the emergency department. Patient was bolused and heart rate did start to improve. Repeat EKG showed evidence for sinus tachycardia. CT chest angio was additionally obtained which demonstrated he has shows no evidence for PE. Minimal interstitial density at the left lung base slightly increased compared to old exam. No pulmonary consolidation.. The patient was suspected to have coronavirus despite reportedly negative test last week. He was retested and he was admitted to the hospital for further evaluation. On 10/13/2019 on seeing the patient for a follow-up. Covid 19 evaluation was done and the results came back negative. He has a white cell count of 3.9 with a hemoglobin 12.1. He is acting as limited improvement sounds 1.2. Some limited cough and congestion is still present. No fever. No chills. No night sweats. He is pulse ox of 98% on room air oxygen. His breathing is nonlabored at this point in time. The patient is seen today 10/14/2019 in follow-up on the regular medical floor. He is currently resting comfortably in bed laying flat. Awake and alert in no acute distress. Stating he is feeling better today compared to yesterday. Not quite back to his baseline. Continues with a loose nonproductive cough. No fever, chills or night sweats. Blood and stool cultures reveal no growth. White count 3.8. Hemoglobin 11.7. Platelets 220. Sodium 137. Potassium 3.5. Creatinine 0.59. Objective - Vital Signs Vital signs: Vital Signs Temp 97.3 F L 10/14/19 04:50 Pulse 86 10/14/19 04:50 Resp 20 10/14/19 04:50 BP 130/69 10/14/19 04:50 Pulse Ox 97 10/14/19 04:50 Intake & Output 10/13/19 10/14/19 10/14/19 18:59 06:59 18:59 Intake Total 668 796 6077 Output Total 2 Balance 511 491 7447 Intake: IV 1050 Sodium Chloride 0.9% 1, 1000 000 ml @ 125 mls/hr IV . Q8H JOEY Rx#:[id number] cefTRIAXone 2 gm In 50 Sodium Chloride 0.9% 50 ml @ 100 mls/hr IVPB Q24HR JOEY Rx#:[id number] Oral 480 400 Output: Urine/Stool Mix 2 Other: # Voids 1 1 # Bowel Movements 1 1 - Exam GENERAL EXAM: Alert, active, comfortable in no apparent distress. HEAD: Normocephalic. EYES: Normal reaction of pupils, equal size. NOSE: Clear with pink turbinates. THROAT: No erythema or exudates. NECK: No masses, no JVD. CHEST: No chest wall deformity. LUNGS: Equal air entry with no crackles, wheeze, rhonchi or dullness. CVS: S1 and S2 normal with no audible murmur, regular rhythm. ABDOMEN: No hepatosplenomegaly, normal bowel sounds, no guarding or rigidity. SPINE: No scoliosis or deformity SKIN: No rashes CENTRAL NERVOUS SYSTEM: No focal deficits, tone is normal in all 4 extremities. EXTREMITIES: There is no peripheral edema. No clubbing, no cyanosis. Peripheral pulses are intact. - Labs CBC & Chem 7: 10/14/19 09:01 10/14/19 09:01 Labs: Abnormal Lab Results - Last 24 Hours (Table) 10/13/19 10/13/19 10/14/19 Range/Units 16:50 20:29 06:57 RBC (4.30-5.90) m/uL Hgb (13.0-17.5) gm/dL Hct (39.0-53.0) % Lymphocytes # (1.0-4.8) k/uL Creatinine (0.66-1.25) mg/dL Glucose (74-99) mg/dL POC Glucose (mg/dL) 144 H 143 H 179 H (75-99) mg/dL Calcium (8.4-10.2) mg/dL 10/14/19 10/14/19 10/14/19 Range/Units 09:01 09:01 11:27 RBC 4.11 L (4.30-5.90) m/uL Hgb 11.7 L (13.0-17.5) gm/dL Hct 35.1 L (39.0-53.0) % Lymphocytes # 0.8 L (1.0-4.8) k/uL Creatinine 0.59 L (0.66-1.25) mg/dL Glucose 172 H (74-99) mg/dL POC Glucose (mg/dL) 131 H (75-99) mg/dL Calcium 7.9 L (8.4-10.2) mg/dL Microbiology - Last 24 Hours (Table) 10/13/19 16:45 Stool Culture - Preliminary Stool 10/12/19 15:21 Blood Culture - Preliminary Blood No Growth after 24 hours Assessment and Plan Assessment: 1 acute febrile illness along with a dry cough and SOB. The patient was checked for COVID 19 infection and was found to be negative. Nevertheless, this can be a false Recent activity as toleratedgative testing and the test needs to be repeated especially that the clinical suspicion is high. The patient has fever, lymphopenia and increased cough and SOB. The CT of chest is showing minimal ground glass changes in the lung base. The patient presented with tachicardia and some mild lactic acidosis and he was given IV fluids. The evaluation for Covid 19 was reported on 10/13/2019 being negative and the patient is on room air oxygen with a pulse of 78%. 2 chronic asthmatic bronchitis 3 Influenza A tracheobronchitis, requiring hospitalization and the patient was admitted on 08/27/2019 and was treated with Tamiflu and was discharged home 4 obstructive sleep apnea maintained on CPAP therapy 5 coronary artery disease 6 diabetes mellitus 7 hypertension 8 remote history of pulmonary embolism, currently on no anticoagulants 9 obesity with BMI 41.6 9 comorbidities all mentioned above in history of present illness, in addition to chronic back pain, previous back and neck surgeries and the patient is currently on medical disability. plan The patient was seen and evaluated by Dr. Nena Esquivel from the pulmonary standpoint Continue current medications We will continue to follow I, the cosigning physician, performed a history & physical examination of the patient. Lungs sounds are clear. Maintaining good O2 saturations in the 90s on room air. I discussed the assessment and plan of care with my nurse practitioner, Yusra Fernando. I attest to the above note as dictated by her.
[2019-10-14 13:53] VITALS: BMI 41.5
[2019-10-14] MEDS ORDERED: oxyCODONE-APAP 10-325MG 1 EACH TAB PO ONE (14:00)
--- NOTE | 2019-10-14 16:43 | CDI ---
Documentation Clarification Form Date: 10/14/2019 04:15:15 PM From: Georgia Malcolm RN CCDS Admit Date: 10/12/2019 04:40:00 PM Patient Name: Jose Morales Visit Number: [id number] Discharge Date: ATTENTION: The Clinical Documentation Specialists (CDI) and [facility] Coding Staff appreciate your assistance in clarifying documentation. Please respond to the clarification below the line at the bottom and electronically sign. The CDI & [facility] Coding staff will review the response and follow-up if needed. Please note: Queries are made part of the Legal Health Record. If you have any questions, please contact the author of this message via ITS. Dr. Reid Deal Sepsis is documented in the ID consult 10/12 History/Risk Factors: 53-year-old male presents to the ED with fever and shortness of breath. Recent admission to [facility] with negative COVID 19 sent home and still not feeling well. Medical History, Asthma, DM2, HTN, JARED and recent hospitalization in August 2019 for Influenza and bronchitis. Clinical Indicators: Labs 10/11 Wbc 7.4, Lymphocytes 0.2, D-dimer 1.78, Lactic acid 3.7, Mag 1.5, Alk phos 139, c reactive protein 37.2 COVID 19 test Not detected. Vitals signs on admission 10/11: 192/104 149 103.0 F 19 98% ra Treatment: ID Consult: 10/12 patient presented to the hospital with sepsis in this patient did have a fever and tachycardia. patient did have predominantly GI symptoms with concern for gastroenteritis questionably viral vs bacterial vs other intra- abdominal pathology. Antibiotics: IV Bolus: 10/11 0.9ns 3L bolus followed by 125cc/hr, 10/11 Rocephin Ivpb Daily, 10/12 Flagyl po Tid Daily, 10/11 Vancomycin Ivpb Q 8 hrs d/c on 10/12 In your professional opinion, can you please clarify if these findings signify one of the following conditions, whether the condition is POA, and cause, if known? Sepsis POA Sepsis Ruled Out Unable to determine Other, please specify Identify the (suspected) organism SIRS Criteria (2 or more of the following may indicate SIRS): -Core Temperature: < 96.8F(36C) or > 101.3F (38.5C) -Heart Rate: Tachycardia > 2 SD above normal for age or Bradycardia <10th percentile for age (not due to other stimuli or specific causes) -Respiratory Rate: > 2 SD above normal for age or mechanical ventilation (not due to anesthesia or neuromuscular disease) -White Blood Cell Count: Elevated or depressed for age or > 10% bands (not due to chemo) (Last Revision: April 2017) Unable to determine MTDD
[2019-10-14 16:53] LABS: Glucose,Whole Blood 137 mg/dL (75-99)
[2019-10-14 20:49] LABS: Glucose,Whole Blood 135 mg/dL (75-99)
[2019-10-14] MEDS: INSULIN DETEMIR (LEVEMIR) 100 UNIT/ML SYR SQ SCH (21:19)
--- NOTE | 2019-10-15 02:20 | P.PN ---
Subjective Patient is a 53-year-old male with a known history of asthma, diabetes type 2, hypertension, hyperlipidemia, GERD, history of [place], mitral valve prolapse, history of PE and obstructive sleep apnea and also morbid obesity came to ER with complaints of fever and shortness of breath and cough. Patient says that he was admitted to [facility] with similar complaints about a week ago and was in the hospital for 4 days. Patient was tested negative for Covid and was sent home. Patient never recovered completely. Has been having nausea vomiting and also diarrhea along with fever and shortness of breath. Patient was febrile when he initially presented to the hospital with T-max of 103F and was also tachycardic with shallow breathing. Patient was given empiric antibiotics and IV fluids in the ER. EKG showed sinus tachycardia Chest x-ray showed no acute cardio pulmonary process. No evidence of pneumonia.. CT angiogram showed no evidence of pulmonary embolism. Minimal interstitial density at the left lung base slightly increased compared to old exam. No pulmonary consolidation. Due to fever shortness of breath and dry cough, Covid 90 test was again sent. WBC 7.4 Lymphocytes 0.2, d-dimer 1.78 Lactic acid 3.7, magnesium 1.5, blood sugar 332, CRP 37.2 Covid repeat test is negative. Patient was seen by ID and CT of the abdomen pelvis was ordered due to diarrhea and nausea vomiting. 10/15/2019 Patient lying in bed comfortable , pt is still has Some GI symptoms of nausea vomiting and diarrhea but improving gradually and slowly. Patient most likely has Tinnitus per CAT Scan. Covid This Is Negative. Patient was febrile 103 upon admission, his been afebrile for more than 24 hours, his labs including CBC and BMP are stable Blood culture and stool cultures are ordered and results are still pending Continue with Rocephin and Flagyl normal saline at a lower rate of 75 mL/h. Patient is also followed closely by ID and pulmonary teams Patient was asking for more pain medication although he is not in distress Review of systems CONSTITUTIONAL: No fever, no malaise, no fatigue. HEENT: No recent visual problems or hearing problems. Denied any sore throat. CARDIOVASCULAR: No orthopnea, PND, no palpitations, no syncope. PULMONARY: No shortness of breath, no cough, no hemoptysis. NEUROLOGICAL: No headaches, no weakness, no numbness. HEMATOLOGICAL: Denies any bleeding or petechiae. GENITOURINARY: Denies any burning micturition, frequency, or urgency. MUSCULOSKELETAL/RHEUMATOLOGICAL: Denies any joint pain, swelling, or any muscle pain. ENDOCRINE: Denies any polyuria or polydipsia. Active Medications Generic Name Dose Route Start Last Admin Trade Name Freq PRN Reason Stop Dose Admin Acetaminophen 650 mg 10/12/19 18:25 Tylenol Tab PO Q4H PRN Fever Albuterol Sulfate 2 puff 10/13/19 16:00 10/14/19 20:07 Ventolin Hfa Inhaler INHALATION 2 puff RT-QID JOEY Administration Aspirin 325 mg 10/13/19 09:00 10/14/19 08:00 Aspirin PO 325 mg DAILY JOEY Administration Atorvastatin Calcium 20 mg 10/13/19 09:00 10/14/19 08:00 Lipitor PO 20 mg DAILY JOEY Administration Carvedilol 12.5 mg 10/12/19 21:00 10/14/19 17:27 Coreg PO 12.5 mg BID-W/MEALS JOEY Administration Diltiazem HCl 300 mg 10/13/19 09:00 10/14/19 08:00 Cardizem Cd PO 300 mg DAILY JOEY Administration Gabapentin 300 mg 10/12/19 21:00 10/14/19 21:21 Neurontin PO 300 mg BID JOEY Administration Glipizide 2.5 mg 10/13/19 09:00 10/14/19 21:26 Glucotrol PO Not Given BID [facility] Guaifenesin 1,200 mg 10/13/19 09:00 10/14/19 21:19 Mucinex PO 1,200 mg Q12HR JOEY Administration Heparin Sodium (Porcine) 5,000 unit 10/13/19 00:00 10/14/19 23:41 Heparin SQ 5,000 unit Q8HR JOEY Administration Sodium Chloride 1,000 mls @ 125 mls/hr 10/12/19 17:15 10/14/19 23:42 Saline 0.9% IV Not Given .Q8H JOEY Ceftriaxone Sodium 2 gm/ 50 mls @ 100 mls/hr 10/13/19 15:15 10/14/19 08:09 Sodium Chloride IVPB 100 mls/hr Q24HR JOEY Administration Insulin Aspart 0 unit 10/12/19 21:00 10/14/19 21:19 Novolog SQ 1 unit ACHS JOEY Administration Protocol Insulin Detemir 20 unit 10/12/19 21:00 10/14/19 21:19 Levemir SQ 20 unit HS JOEY Administration Lisinopril 40 mg 10/13/19 09:00 10/14/19 08:01 Zestril PO 40 mg DAILY JOEY Administration Metronidazole 500 mg 10/13/19 16:00 10/14/19 21:21 Flagyl PO 500 mg TID JOEY Administration Miscellaneous Information 1 each 10/13/19 12:23 Magnesium Per Protocol MISCELLANE DAILY PRN Per Protocol Protocol Miscellaneous Information 1 each 10/13/19 17:26 Potassium Per Protocol MISCELLANE DAILY PRN Per Protocol Protocol Naloxone HCl 0.2 mg 10/12/19 17:07 Narcan IV Q2M PRN Opioid Reversal Ondansetron HCl 4 mg 10/13/19 00:42 10/14/19 06:32 Zofran IVP 4 mg Q6HR PRN Administration Nausea And Vomiting Oxycodone/Acetaminophen 1 each 10/13/19 15:37 10/14/19 21:20 Percocet 10-325 PO 1 each TID PRN Administration Pain Pantoprazole Sodium 40 mg 10/13/19 07:30 10/14/19 08:00 Protonix PO 40 mg AC-[id number] JOEY Administration Objective - Vital Signs Vital signs: Vital Signs Temp 97.9 F 10/14/19 13:34 Pulse 81 10/14/19 13:34 Resp 18 10/14/19 13:34 BP 131/78 10/14/19 13:34 Pulse Ox 95 10/14/19 13:34 Intake & Output 10/14/19 10/14/19 10/15/19 06:59 18:59 06:59 Intake Total 400 1050 Output Total 2 400 Balance 398 650 Weight 135 kg Intake: IV 1050 Sodium Chloride 0.9% 1, 1000 000 ml @ 125 mls/hr IV . Q8H JOEY Rx#:[id number] cefTRIAXone 2 gm In 50 Sodium Chloride 0.9% 50 ml @ 100 mls/hr IVPB Q24HR JOEY Rx#:[id number] Oral 400 Output: Urine 400 Urine/Stool Mix 2 Other: # Voids 1 # Bowel Movements 1 - Exam GENERAL: The patient is alert and oriented x3, not in any acute distress. Well developed, well nourished. HEENT: Pupils are round and equally reacting to light. EOMI. No scleral icterus. No conjunctival pallor. Normocephalic, atraumatic. No pharyngeal erythema. No thyromegaly. CARDIOVASCULAR: S1 and S2 present. No murmurs, rubs, or gallops. PULMONARY: Chest is clear to auscultation, no wheezing or crackles. ABDOMEN: Soft, nontender, nondistended, normoactive bowel sounds. No palpable organomegaly. MUSCULOSKELETAL: No joint swelling or deformity. EXTREMITIES: No cyanosis, clubbing, or pedal edema. NEUROLOGICAL: Gross neurological examination did not reveal any focal deficits. SKIN: No rashes. no petechiae. - Labs CBC & Chem 7: 10/14/19 09:01 10/14/19 09:01 Labs: Abnormal Lab Results - Last 24 Hours (Table) 10/14/19 10/14/19 10/14/19 Range/Units 06:57 09:01 09:01 RBC 4.11 L (4.30-5.90) m/uL Hgb 11.7 L (13.0-17.5) gm/dL Hct 35.1 L (39.0-53.0) % Lymphocytes # 0.8 L (1.0-4.8) k/uL Creatinine 0.59 L (0.66-1.25) mg/dL Glucose 172 H (74-99) mg/dL POC Glucose (mg/dL) 179 H (75-99) mg/dL Calcium 7.9 L (8.4-10.2) mg/dL 10/14/19 10/14/19 10/14/19 Range/Units 11:27 16:51 20:42 RBC (4.30-5.90) m/uL Hgb (13.0-17.5) gm/dL Hct (39.0-53.0) % Lymphocytes # (1.0-4.8) k/uL Creatinine (0.66-1.25) mg/dL Glucose (74-99) mg/dL POC Glucose (mg/dL) 131 H 137 H 135 H (75-99) mg/dL Calcium (8.4-10.2) mg/dL Microbiology - Last 24 Hours (Table) 10/12/19 15:21 Blood Culture - Preliminary Blood No Growth after 48 hours 10/13/19 16:45 Stool Culture - Preliminary Stool Assessment and Plan Assessment: Fever, dry cough and shortness of breath. Suspected Covid 19 infection. Repeat test is negative. Patient is stable by pulmonary service team evaluation Acute febrile gastroenteritis. Improving Lactic acidosis, improved to normal Chronic bronchial asthma Recent history of influenza a bronchitis and hospitalization in August 2019 Obstructive sleep apnea on CPAP Morbid obesity BMI 41.5 Hypertension Diabetes type 2 History of pulmonary embolism Mitral valve prolapse history History of C. diff colitis 4 years ago History of peptic ulcer disease. Nephrolithiasis GI and DVT prophylaxis with heparin subcu Plan: Patient will be continued on IV hydration and follow-up lactic acid level. Replace electrolyte. Was given broad-spectrum antibiotics. Repeat Covid 19 test is negative. Pulmonary is following. Patient was started on ceftriaxone and Flagyl. Infectious disease on the case. Continue with home medications and follow closely. Follow-up culture reports. Fever has resolved now.
[2019-10-15] MEDS: oxyCODONE-APAP 10-325MG 1 EACH TAB PO PRN ×3 (05:17→20:08)
--- NOTE | 2019-10-15 05:39 | PN ---
PROGRESS NOTE DATE OF SERVICE: 10/14/2019 REASON FOR FOLLOWUP: Acute gastroenteritis possible bacterial. INTERVAL HISTORY: The patient is currently afebrile, has been breathing comfortably. Denies having any chest pain or shortness of breath or cough. No abdominal pain. Still have some vomiting and diarrhea. PHYSICAL EXAMINATION: Blood pressure 131/78 with a pulse of 81, temperature 97.9. He is 95% on room air. General description is a middle-aged male lying in bed in no distress. RESPIRATORY SYSTEM: Unlabored breathing, clear to auscultation anteriorly. HEART: S1, S2. Regular rate and rhythm. ABDOMEN: Soft, no tenderness. LABS: Hemoglobin 11.7, white count 3.8, BUN of 10, creatinine 0.59. Stool culture is pending. DIAGNOSTIC IMPRESSION AND PLAN: Patient admitted to the hospital with fever and acute gastroenteritis, question of bacterial versus viral. Stool culture pending. The patient to continue Rocephin and Flagyl and monitor clinical course closely. MMODL / IJN: [id number] /
[2019-10-15 07:12] LABS: Glucose,Whole Blood 184 mg/dL (75-99)
[2019-10-15] MEDS: ALBUTEROL HFA INHALER INHALATION SCH ×2 (08:06→11:31)
[2019-10-15 08:21] LABS: African American GFR (CKD) >90 (>60 ml/min/1.73 sqM); Anion Gap 8 mmol/L; Blood Urea Nitrogen 11 mg/dL (9-20); Calcium 8.1 mg/dL (8.4-10.2); Carbon Dioxide 20 mmol/L (22-30); Chloride 107 mmol/L (98-107); Glucose 171 mg/dL (74-99); Non-African American GFR(CKD) >90 (>60 ml/min/1.73 sqM); Potassium 3.7 mmol/L (3.5-5.1); Sodium 135 mmol/L (137-145)
[2019-10-15 08:28] LABS: Basophils % (A) 1 %; Eosinophils # (A) 0.3 k/uL (0-0.7); Eosinophils % (A) 6 %; HCT 33.9 % (39.0-53.0); HGB 11.3 gm/dL (13.0-17.5); Lymphocytes # (A) 1.1 k/uL (1.0-4.8); Lymphocytes % (A) 23 %; MCH 28.6 pg (25.0-35.0); MCHC 33.4 g/dL (31.0-37.0); MCV 85.5 fL (80.0-100.0); Mean Platelet Volume 7.9; Monocytes # (A) 0.3 k/uL (0-1.0); Monocytes % (A) 5 %; Neutrophils % (A) 61 %; Platelet Count 241 k/uL (150-450); RBC 3.97 m/uL (4.30-5.90); RDW 13.7 % (11.5-15.5); WBC 4.9 k/uL (3.8-10.6)
[2019-10-15] MEDS: GABAPENTIN 300 MG CAP PO SCH ×2 (09:14→20:10)
[2019-10-15] MEDS: metroNIDAZOLE 500 MG TAB PO SCH ×3 (09:14→20:10)
[2019-10-15] MEDS: LISINOPRIL 20 MG TAB PO SCH (09:14)
[2019-10-15] MEDS: PANTOPRAZOLE 40 MG TABLET PO SCH (09:14)
[2019-10-15] MEDS: guaiFENesin 600 MG TABLET.ER PO SCH ×2 (09:14→20:10)
[2019-10-15] MEDS: ATORVASTATIN 20 MG TAB PO SCH (09:14)
[2019-10-15] MEDS: ASPIRIN 325 MG TAB PO SCH (09:14)
[2019-10-15] MEDS: INSULIN ASPART (NovoLOG) 100 UNIT/ML VIAL SQ SCH ×4 (09:15→20:37)
[2019-10-15] MEDS: CARVEDILOL 12.5 MG TAB PO SCH ×2 (09:15→17:53)
[2019-10-15] MEDS: HEPARIN SODIUM,PORCINE 5,000 UNIT/ML 1 ML VIAL SQ SCH ×3 (09:15→23:13)
[2019-10-15] MEDS: DILTIAZEM CD 300 MG CAP.ER.24H PO SCH (09:17)
--- NOTE | 2019-10-15 10:10 | CDI ---
Documentation Clarification Form Date: 10/15/2019 08:50 AM From: Georgia Malcolm RN CCDS Admit Date: 10/12/2019 04:40:00 PM Patient Name: Jose Morales Visit Number: [id number] Discharge Date: ATTENTION: The Clinical Documentation Specialists (CDI) and [facility] Coding Staff appreciate your assistance in clarifying documentation. Please respond to the clarification below the line at the bottom and electronically sign. The CDI & [facility] Coding staff will review the response and follow-up if needed. Please note: Queries are made part of the Legal Health Record. If you have any questions, please contact the author of this message via ITS. Dr. Reid Deal Suspected COVID 19 infection is documented in the H&P 10/12 and in progress note 10/13 Repeat COVID 19 test is negative is documented in the H&P 10/12 and in progress note 10/13 Patient history/risk factors: 53-year-old male presents to ED with a cough and shortness of breath. Was discharged a week ago from [facility] with negative COVID 19 testing. Medical history asthma, DM2, HTN, [smoking, vaping, COPD, Asthma and Sleep Apnea. Clinical Indicators: Nausea, vomiting, Diarrhea, Fever and Shortness of Breath CXR: 10/11 Lungs are clear Per Pulmonary consult CT of chest is showing minimal ground glass changes in the lung base. Labs: 10/11 Lymphocytes 0.2, D dimer 1.78, Na 136, Lactic acid 3.7, Mag 1.5, Ferritin 148.9, Alk phos 138, Lactate Dehydrogenase 589, C reactive protein 37.2 Viral Panel: 10/11 Coronavirus (PCR) not detected, Influenza Type A and Type B not detected Vital Signs: 10/11 192/104 149 103.0 F 19 98% ra Treatment: 10/11 0.9ns 3L bolus 10/11 Ceftriaxone Ivpb Daily, 10/12 Flagyl po TID, 10/11 Vancomycin Ivpb Q 8hrs d/c 10/12. Consult ID: 10/12 patient presented to hospital with sepsis in this patient did have a fever and tachycardia patient di have predominantly GI symptoms with concern for gastroenteritis questionably viral vs bacterial vs other intra- abdominal pathology recommend covering for enteric gram negative both aerobes and anaerobes while waiting for the work- up to finalize. Stool culture, CT Abd pelvis, empirically add Rocephin and Flagyl In order to capture the severity of condition, please clarify if the above treatment/clinical indicators signify: COVID-19 ruled out COVID-19 ruled in Other, please specify Unable to determine Answered in Progress Note 10/14 COVID [address] Deal (Last Form Revision: September 2019) MTDD
[2019-10-15] MEDS: SODIUM CHLORIDE 0.9% 1,000 ML IV SCH ×2 (11:04→20:39)
--- NOTE | 2019-10-15 12:13 | XR ---
EXAMINATION TYPE: XR chest 1V portable DATE OF EXAM: 10/15/2019 Comparison: 10/12/2019 Clinical History: 53-year-old male shortness of breath Findings: Heart upper limits of normal in size. Mild interstitial prominence. No progressive consolidation. IMPRESSION: Borderline heart size. Chronic appearing changes. No definite acute process.
[2019-10-15] MEDS ORDERED: IPRATROPIUM-ALBUTEROL 3 ML NEB INHALATION PRN (12:21)
[2019-10-15 12:28] LABS: Glucose,Whole Blood 131 mg/dL (75-99)
--- NOTE | 2019-10-15 12:44 | PN ---
PROGRESS NOTE DATE OF SERVICE: 10/15/2019. The patient is again seen today in the room. The patient was seen on October 12 and and today October 14. The patient states that he is doing a bit better. He did apparently have an asthma attack sometime this morning. He states he is still a little bit short of breath. Still wheezing and still coughing. Not producing any phlegm. No fever or chills. No nausea, vomiting or diarrhea. The patient actually looks clinically well to me. It is only after we started evaluating him and examining him that he started coughing and also apparently started to have some wheezes. PHYSICAL EXAMINATION: VITAL SIGNS: Current vital signs are reviewed. Temperature is 98.6, heart rate 76, respiratory rate 24, blood pressure 106/67, mean 80, saturations are 98%. GENERAL: Appears in no acute distress. HEENT: Examination is grossly unremarkable. Mucous membranes are moist. No oral lesions. NECK: Supple. Full range of motion. No adenopathy. Neck veins are flat. CARDIOVASCULAR: Examination reveals regular rhythm and rate. S1, S2 normal. No S3, S4, or murmur. LUNGS: Reveal a few scattered expiratory wheezes. No rhonchi. No crackles. ABDOMEN: Soft. Bowel sounds are heard. EXTREMITIES: Are intact. No cyanosis, clubbing, or edema. SKIN: Without rash. NEUROLOGIC: Examination is brief but nonfocal. LAB DATA: Lab data is reviewed. White count 4.9, hemoglobin 11.3, hematocrit 33.9, platelet count 241,000. Sodium 135, potassium 3.7, chloride 107, CO2 of 20, anion gap 8. BUN and creatinine were 11 and 0.58. Microbiologic data is negative. Chest x-ray from October 14 shows nothing acute. There is some mild cardiomegaly. MEDICATIONS: Medications are reviewed. From the pulmonary standpoint, he has got an albuterol inhaler. He is not on any steroids nor is he on any other inhalers or bronchodilators. ASSESSMENT: 1. Asthma exacerbation complicated by purulent tracheobronchitis. Generally improved but not completely resolved. 2. COVID negative, testing negative x2. 3. Chronic asthmatic bronchitis. 4. Previous admission for influenza A tracheobronchitis in August of this year. 5. History of sleep apnea syndrome. 6. Coronary artery disease. 7. Diabetes mellitus. 8. Hypertension. 9. Remote history of pulmonary embolism. 10.Obesity. 11.Chronic back pain. PLAN: I will go ahead and increase the bronchodilators and anti-inflammatories. Additional recommendations and suggestions are forthcoming. Prognosis is guarded. Hopeful discharge within the next 24 to 48 hours. RIOL / IJN: [id number] /
[2019-10-15] MEDS: predniSONE 20 MG TAB PO SCH (12:46)
[2019-10-15] MEDS: CHOLESTYRAMINE (WITH SUGAR) 4 GM PACKET PO SCH ×2 (12:47→17:53)
[2019-10-15] MEDS: IPRATROPIUM-ALBUTEROL 3 ML NEB INHALATION SCH ×2 (15:56→20:20)
[2019-10-15 17:38] LABS: Glucose,Whole Blood 218 mg/dL (75-99)
--- NOTE | 2019-10-15 17:48 | PN ---
PROGRESS NOTE DATE OF SERVICE: 10/15/2019 This 53-year-old gentleman with a past medical history of multiple medical problems, being followed by Dr. Muniz in the outpatient setting, was admitted with asthma, acute bronchial asthma exacerbation. The patient had possibly tracheobronchitis as well. The patient is complaining of significant diarrhea at this time; multiple episodes with watery loose stools. Interestingly, the patient apparently was also evaluated in [facility] because of fever, tachycardia and respiratory symptoms with recent COVID testing, and the COVID test was repeated. Both tests were negative so far. The patient is being closely monitored, but again the patient is complaining of continued diarrhea and had fever and dry cough also. A CT scan of the abdomen and pelvis was also done which showed thickening of a few jejunal loops and some features of diarrhea. No other acute abnormalities are appreciated. A CTA of the chest was done which is reported as showing no evidence of pulmonary embolism; minimal atelectasis; and slightly increased interstitial density in the left lung base was also noted. Past medical history reviewed. REVIEW OF SYSTEMS: CARDIOVASCULAR SYSTEM: No angina, palpitations. RESPIRATORY SYSTEM: As mentioned earlier. GI: As mentioned earlier. : No dysuria or retention. NERVOUS SYSTEM: No numbness, weakness. CURRENT MEDICATIONS: Reviewed. They include: 1. Tylenol p.r.n. 2. DuoNeb q.i.d. and p.r.n. 3. Lipitor. 4. Symbicort 160/4.5 b.i.d. 5. Coreg 12.5 b.i.d. 6. Rocephin 2 grams daily. 7. Questran. 8. Cardizem. 9. Glucotrol. 10.Mucinex. 11.Zestril. 12.Flagyl. 13.Replacement protocol. 14.Percocet. 15.Protonix. 16.Prednisone. 17.IV fluids. PHYSICAL EXAMINATION: Patient is alert, oriented x3. Pulse is 80, blood pressure 117/76, respirations 16, temperature 97.2, pulse ox 97% on room air. HEENT: Conjunctivae normal. Oral mucosa moist. NECK: No jugular venous distention. No carotid bruit. No lymph node enlargement. CARDIOVASCULAR SYSTEM: S1, S2 muffled. RESPIRATORY SYSTEM: Breath sounds diminished at the bases. Scattered rhonchi and crackles. ABDOMEN: Soft, obese, non-tender. No mass palpable. No guarding. No rigidity. LEGS: No edema. No swelling. NERVOUS SYSTEM: No focal deficit. LABS: Labs at this time show WBC 4.9, hemoglobin 11.3. Sodium 135, potassium 3.7 and glucose 131. Calcium is 8.1. Lactic acid 2.2. C difficile is negative. ASSESSMENT: 1. Bronchial asthma, acute exacerbation, with acute purulent tracheobronchitis and left lower lobe pneumonia, possibly interstitial pneumonia. 2. Fever, dry cough and shortness of breath; COVID-19 ruled out x2. 3. Continued diarrhea and gastrointestinal symptoms; possible acute gastroenteritis. 4. Lactic acidosis, present on admission, improved. 5. Elevated D-dimer. 6. History of chronic bronchial asthma, intermittent. 7. History of recent influenza and hospital admission. 8. Elevated lactic acid, present on admission. 9. Hypomagnesemia, present on admission. 10.Hyponatremia. 11.Anemia, normocytic; anemia of chronic disease. 12.Obesity with a body mass index of 41.5. 13.History of diabetes mellitus, type 2. 14.History of gastroesophageal reflux disease. 15.Hypertension. 16.Hyperlipidemia. 17.Myocardial infarction. 18.History of mitral valve prolapse. 19.History of pulmonary embolism. 20.Sleep apnea. 21.Obesity. 22.History of asthmatic bronchitis. 23.History of obstructive sleep apnea. 24.History of chronic back pain and degenerative joint disease, herniated disc. 25.History of Clostridium difficile colitis. 26.History of bleeding peptic ulcer. 27.Nephrolithiasis. 28.History of urinary tract infection with sepsis. 29.History of methicillin-resistant Staphylococcus aeruginosa. 30.History of degenerative joint disease. 31.History of cholecystectomy. 32.History of urolithiasis with the ESWL and ureteral stents, double. 33.FULL CODE. RECOMMENDATIONS AND DISCUSSION: In this 53-year-old gentleman who presented with multiple complex medical issues, we will monitor the patient closely, continue the antibiotics, continue the bronchodilators and other medication recommended by Pulmonary. However, diarrhea is a concern and COVID is negative x2. I would recommend to continue symptomatic treatment. Questran has been added. Continue with contact precautions. We will continue to monitor. Overall prognosis is guarded because of multiple complex medical issues. We will cut down the diet to clear liquids and order n.p.o. diet if the diarrhea does not subside. IV fluids may be stopped for the time being, to be restarted in case the p.o. intake is poor. Prognosis guarded. Further recommendations to follow. A copy of this dictation is being forwarded to Dr. Muniz, who is the primary physician. MMLORIEL / IJN: [id number] /
[2019-10-15] MEDS ORDERED: SODIUM CHLORIDE 0.9% 1,000 ML IV SCH (18:45)
[2019-10-15 19:08] LABS: ALT 38 U/L (4-49); AST 45 U/L (17-59); African American GFR (CKD) >90 (>60 ml/min/1.73 sqM); Albumin 3.4 g/dL (3.5-5.0); Alkaline Phosphatase 97 U/L (38-126); Anion Gap 8 mmol/L; Blood Urea Nitrogen 11 mg/dL (9-20); Calcium 8.7 mg/dL (8.4-10.2); Carbon Dioxide 19 mmol/L (22-30); Chloride 107 mmol/L (98-107); Glucose 238 mg/dL (74-99); Non-African American GFR(CKD) >90 (>60 ml/min/1.73 sqM); Potassium 4.1 mmol/L (3.5-5.1); Sodium 134 mmol/L (137-145); Total Bilirubin 0.2 mg/dL (0.2-1.3); Total Protein 5.9 g/dL (6.3-8.2)
[2019-10-15] MEDS: SYMBICORT 160-4.5 MCG INHALER INHALATION SCH (20:20)
[2019-10-15] MEDS: INSULIN DETEMIR (LEVEMIR) 100 UNIT/ML SYR SQ SCH (20:37)
[2019-10-15 20:41] LABS: Glucose,Whole Blood 240 mg/dL (75-99)
[2019-10-16] MEDS: oxyCODONE-APAP 10-325MG 1 EACH TAB PO PRN ×4 (03:06→22:19)
--- NOTE | 2019-10-16 06:24 | PN ---
PROGRESS NOTE DATE OF SERVICE: 10/15/2019 REASON FOR FOLLOWUP: Acute gastroenteritis. INTERVAL HISTORY: The patient is currently afebrile, has been breathing comfortably. Still having diarrhea, though slightly forming up. Denies having any chest pain, shortness of breath or cough. No abdominal pain. PHYSICAL EXAMINATION: Blood pressure 131/82 with a pulse of 84, temperature of 97.8. He is 95% on room air. General description is a middle-aged male up in the chair in no distress. RESPIRATORY SYSTEM: Unlabored breathing, clear to auscultation anteriorly. HEART: S1, S2. Regular rate and rhythm. ABDOMEN: Soft, no tenderness. LABS: BUN of 11, creatinine 0.57. Blood culture negative and stool culture currently pending. DIAGNOSTIC IMPRESSION AND PLAN: Patient admitted to the hospital with fever and vomiting, diarrhea, acute gastroenteritis possible bacterial. Stool cultures currently pending. The patient is covered with Rocephin and Flagyl. We will add Questran for symptomatic relief and follow up on the stool cultures. Continue supportive care. MMODL / IJN: [id number] /
[2019-10-16] MEDS ORDERED: ALBUTEROL HFA INHALER INHALATION PRN (07:27)
[2019-10-16 07:41] LABS: Glucose,Whole Blood 186 mg/dL (75-99)
[2019-10-16 07:42] LABS: Basophils % (A) 0 %; Eosinophils # (A) 0.1 k/uL (0-0.7); Eosinophils % (A) 1 %; HCT 36.1 % (39.0-53.0); HGB 11.7 gm/dL (13.0-17.5); Lymphocytes # (A) 1.6 k/uL (1.0-4.8); Lymphocytes % (A) 19 %; MCH 27.7 pg (25.0-35.0); MCHC 32.5 g/dL (31.0-37.0); MCV 85.3 fL (80.0-100.0); Mean Platelet Volume 7.5; Monocytes # (A) 0.4 k/uL (0-1.0); Monocytes % (A) 5 %; Neutrophils # (A) 5.8 k/uL (1.3-7.7); Neutrophils % (A) 71 %; Platelet Count 281 k/uL (150-450); RBC 4.23 m/uL (4.30-5.90); RDW 13.8 % (11.5-15.5); WBC 8.2 k/uL (3.8-10.6)
[2019-10-16] MEDS: SYMBICORT 160-4.5 MCG INHALER INHALATION SCH ×2 (08:08→19:21)
[2019-10-16] MEDS: ALBUTEROL HFA INHALER INHALATION SCH ×4 (08:08→19:21)
[2019-10-16] MEDS: CARVEDILOL 12.5 MG TAB PO SCH ×2 (09:52→16:52)
[2019-10-16] MEDS: predniSONE 20 MG TAB PO SCH (09:52)
[2019-10-16] MEDS: guaiFENesin 600 MG TABLET.ER PO SCH ×2 (09:53→20:13)
[2019-10-16] MEDS: GABAPENTIN 300 MG CAP PO SCH ×2 (09:53→20:13)
[2019-10-16] MEDS: PANTOPRAZOLE 40 MG TABLET PO SCH (09:53)
[2019-10-16] MEDS: metroNIDAZOLE 500 MG TAB PO SCH ×3 (09:53→20:13)
[2019-10-16] MEDS: LISINOPRIL 20 MG TAB PO SCH (09:53)
[2019-10-16] MEDS: ATORVASTATIN 20 MG TAB PO SCH (09:53)
[2019-10-16] MEDS: HEPARIN SODIUM,PORCINE 5,000 UNIT/ML 1 ML VIAL SQ SCH ×2 (09:54→16:52)
[2019-10-16] MEDS: CHOLESTYRAMINE (WITH SUGAR) 4 GM PACKET PO SCH ×2 (09:54→16:52)
[2019-10-16] MEDS: ASPIRIN 325 MG TAB PO SCH (10:00)
[2019-10-16] MEDS: DILTIAZEM CD 300 MG CAP.ER.24H PO SCH (10:00)
[2019-10-16] MEDS: INSULIN ASPART (NovoLOG) 100 UNIT/ML VIAL SQ SCH ×4 (11:16→20:38)
[2019-10-16] MEDS ORDERED: LOPERAMIDE 2 MG CAP PO PRN (11:39)
[2019-10-16 12:10] LABS: Glucose,Whole Blood 237 mg/dL (75-99)
--- NOTE | 2019-10-16 12:16 | P.PN ---
Subjective Progress Note Date: 10/16/19 Principal diagnosis: Acute febrile illness, dry cough and shortness of breath, COVID 19 ruled out A pleasant 53-year-old male patient, morbidly obese, history of mild intermittent bronchial asthma, diabetes mellitus hypertension and hyperlipidemia and remote history of pulmonary embolism along with history of obstructive sleep apnea maintained on CPAP therapy. his patient was recently admitted to the hospital on 08/27/2019 for acute influenza A tracheobronchitis with secondary asthma exacerbation. The patient is quite symptomatic bronchospastic wheezing shortness of breath. The patient was started on Tamiflu. The patient is also started on a combination of bronchodilators and steroids. The patient improved and he was discharged home. The patient came today to the ED with fever and cough and shortness of breath. Apparently this patient had cough admitted to [facility] for similar symptoms approximately became symptomatic approximately week ago and he admitted himself to [facility]. At that time she apparently had a negative covid test. He is complaining of some nausea as well, no vomiting. CXR-ray is negative for pneumonia. Urinalysis does not show evidence of infection either. CBC does not show any evidence of leukocytosis. Lymphocytopenia is present. CMP does show evidence of lactic acidosis with an anion gap of 16. Plasma lactic acid 3.7. patient was given > 30 mls/kg of fluids n the emergency department and he was given empiric antibiotics in the emergency department. Patient was bolused and heart rate did start to improve. Repeat EKG showed evidence for sinus tachycardia. CT chest angio was additionally obtained which demonstrated he has shows no evidence for PE. Minimal interstitial density at the left lung base slightly increased compared to old exam. No pulmonary consolidation.. The patient was suspected to have coronavirus despite reportedly negative test last week. He was retested and he was admitted to the hospital for further evaluation. On 10/13/2019 on seeing the patient for a follow-up. Covid 19 evaluation was done and the results came back negative. He has a white cell count of 3.9 with a hemoglobin 12.1. He is acting as limited improvement sounds 1.2. Some limited cough and congestion is still present. No fever. No chills. No night sweats. He is pulse ox of 98% on room air oxygen. His breathing is nonlabored at this point in time. The patient is seen today 10/14/2019 in follow-up on the regular medical floor. He is currently resting comfortably in bed laying flat. Awake and alert in no acute distress. Stating he is feeling better today compared to yesterday. Not quite back to his baseline. Continues with a loose nonproductive cough. No fever, chills or night sweats. Blood and stool cultures reveal no growth. White count 3.8. Hemoglobin 11.7. Platelets 220. Sodium 137. Potassium 3.5. Creatinine 0.59. On 10/16/2019 patient seen in follow-up on general medical floor, he still complains of wheezing, and dyspnea, but overall she is improving, room air pulse ox of 98%, vital signs are stable, patient has been afebrile lung sounds reveal minimal wheezing, patient has been transitioned over to oral prednisone, no acute events overnight. C. diff was negative, blood culture showed no growth, stool culture is pending, ID service is following. Yesterday chest x-ray showed no definite acute process, clinically patient is stable, from pulmonary perspective patient can be considered for discharge home today. Objective - Vital Signs Vital signs: Vital Signs Temp 97.2 F L 10/16/19 05:59 Pulse 82 10/16/19 05:59 Resp 18 10/16/19 05:59 BP 128/70 10/16/19 05:59 Pulse Ox 98 10/16/19 05:59 Intake & Output 10/15/19 10/16/19 10/16/19 18:59 06:59 18:59 Intake Total 200 650 Output Total 400 500 Balance -200 150 Intake: Intake, IV Titration 500 Amount Sodium Chloride 0.9% 1, 500 000 ml @ 50 mls/hr IV . Q20H [facility] Rx#:[id number] Oral 200 150 Output: Urine 400 500 Other: Voiding Method Urinal # Voids 1 500 # Bowel Movements 0 - Exam GENERAL EXAM: Alert, very pleasant, 53-year-old white male, on room air, with pulse ox of 90% comfortable in no apparent distress. HEAD: Normocephalic/atraumatic. EYES: Normal reaction of pupils, equal size. Conjunctiva pink, sclera white. NOSE: Clear with pink turbinates. THROAT: No erythema or exudates. NECK: No masses, no JVD, no thyroid enlargement, no adenopathy. CHEST: No chest wall deformity. minimal end expiratory wheezes, no crackles, wheeze, rhonchi or dullness. CVS: Regular rate and rhythm, normal S1 and S2, no gallops, no murmurs, no rubs ABDOMEN: Soft, nontender. No hepatosplenomegaly, normal bowel sounds, no guarding or rigidity. EXTREMITIES: No clubbing, no edema, no cyanosis, 2+ pulses and upper and lower extremities. MUSCULOSKELETAL: Muscle strength and tone normal. SPINE: No scoliosis or deformity SKIN: No rashes CENTRAL NERVOUS SYSTEM: Alert and oriented -3. No focal deficits, tone is normal in all 4 extremities. PSYCHIATRIC: Alert and oriented -3. Appropriate affect. Intact judgment and insight. - Labs CBC & Chem 7: 10/16/19 07:09 10/15/19 18:26 Labs: Abnormal Lab Results - Last 24 Hours (Table) 10/15/19 10/15/19 10/15/19 Range/Units 12:21 17:17 18:26 RBC (4.30-5.90) m/uL Hgb (13.0-17.5) gm/dL Hct (39.0-53.0) % Sodium 134 L (137-145) mmol/L Carbon Dioxide 19 L (22-30) mmol/L Creatinine 0.57 L (0.66-1.25) mg/dL Glucose 238 H (74-99) mg/dL POC Glucose (mg/dL) 131 H 218 H (75-99) mg/dL C-Reactive Protein (<10.0) mg/L Total Protein 5.9 L (6.3-8.2) g/dL Albumin 3.4 L (3.5-5.0) g/dL 10/15/19 10/16/19 10/16/19 Range/Units 20:27 07:09 07:09 RBC 4.23 L (4.30-5.90) m/uL Hgb 11.7 L (13.0-17.5) gm/dL Hct 36.1 L (39.0-53.0) % Sodium (137-145) mmol/L Carbon Dioxide (22-30) mmol/L Creatinine (0.66-1.25) mg/dL Glucose (74-99) mg/dL POC Glucose (mg/dL) 240 H (75-99) mg/dL C-Reactive Protein 16.6 H (<10.0) mg/L Total Protein (6.3-8.2) g/dL Albumin (3.5-5.0) g/dL 10/16/19 10/16/19 Range/Units 07:36 12:07 RBC (4.30-5.90) m/uL Hgb (13.0-17.5) gm/dL Hct (39.0-53.0) % Sodium (137-145) mmol/L Carbon Dioxide (22-30) mmol/L Creatinine (0.66-1.25) mg/dL Glucose (74-99) mg/dL POC Glucose (mg/dL) 186 H 237 H (75-99) mg/dL C-Reactive Protein (<10.0) mg/L Total Protein (6.3-8.2) g/dL Albumin (3.5-5.0) g/dL Microbiology - Last 24 Hours (Table) 10/12/19 15:21 Blood Culture - Preliminary Blood No Growth after 72 hours Assessment and Plan Plan: Assessment: 1 acute febrile illness along with a dry cough and SOB. The patient was checked for COVID 19 infection and was found to be negative. Nevertheless, this can be a false Recent activity as toleratedgative testing and the test needs to be repeated especially that the clinical suspicion is high. The patient has fever, lymphopenia and increased cough and SOB. The CT of chest is showing minimal ground glass changes in the lung base. The patient presented with tachicardia and some mild lactic acidosis and he was given IV fluids. The evaluation for Covid 19 was reported on 10/13/2019 being negative and the patient is on room air oxygen with a pulse of 78%. 2 chronic asthmatic bronchitis 3 Influenza A tracheobronchitis, requiring hospitalization and the patient was admitted on 08/27/2019 and was treated with Tamiflu and was discharged home 4 obstructive sleep apnea maintained on CPAP therapy 5 coronary artery disease 6 diabetes mellitus 7 hypertension 8 remote history of pulmonary embolism, currently on no anticoagulants 9 obesity with BMI 41.6 9 comorbidities all mentioned above in history of present illness, in addition to chronic back pain, previous back and neck surgeries and the patient is currently on medical disability. Plan: Clinically patient is stable, breathing is improving, yesterday chest x-ray showed no acute process, no fever or chills, Covid 19 has been ruled out. No acute events overnight, from pulmonary perspective patient can be considered for discharge home today. He eats his attending physician will likely discharge home tomorrow, pulmonary service will sign off and continue seen the patient on as-needed basis. Patient has been transitioned to oral prednisone, he remains on Ventolin and Symbicort. I performed a history & physical examination of the patient and discussed their management with my nurse practitioner, Iva Sutton. I reviewed the nurse practitioner's note and agree with the documented findings and plan of care. Lung sounds are positive for minimal wheezes throughout the lung turner. The findings and the impression was discussed with the patient. I attest to the documentation by the nurse practitioner. Time with Patient: Less than 30
[2019-10-16] MEDS: SODIUM CHLORIDE 0.9% 1,000 ML IV SCH (12:32)
--- NOTE | 2019-10-16 15:57 | PN ---
PROGRESS NOTE DATE OF SERVICE: 10/16/2019 This 53-year-old gentleman who was admitted with acute bronchial asthma with acute purulent tracheobronchitis and left lower lobe pneumonia, possibly interstitial pneumonia, is being closely monitored. The patient had fever, also. The patient is complaining of significant diarrhea at this time. Multiple consultants are following the patient closely. COVID test has been negative twice. Past medical history reviewed. REVIEW OF SYSTEMS: CARDIOVASCULAR SYSTEM: No angina, palpitations. RESPIRATORY SYSTEM: As mentioned earlier. GI: As mentioned earlier. : No dysuria or retention. NERVOUS SYSTEM: No numbness, weakness. CURRENT MEDICATIONS: Reviewed. They include: 1. Tylenol p.r.n. 2. Ventolin q.i.d. p.r.n. 3. Aspirin 325 mg daily. 4. Lipitor 20 mg daily. 5. Symbicort 160/4.5 two puffs b.i.d. 6. Coreg. 7. Rocephin 2 grams daily. 8. Questran. 9. Cardizem CD. 10.Neurontin. 11.Glucotrol. 12.Mucinex. 13.Heparin. 14.NovoLog scale. 15.Levemir. 16.Zestril. 17.Imodium. 18.Flagyl. 19.Narcan. 20.Percocet. 21.Protonix. 22.Prednisone. Doses are reviewed. PHYSICAL EXAMINATION: Patient is alert, oriented x3. Pulse is 82, blood pressure 128/70, respiration 18, temperature 97.2, pulse ox 98% on room air. HEENT: Conjunctivae normal. NECK: No jugular venous distention. CARDIOVASCULAR SYSTEM: S1, S2 muffled. RESPIRATORY SYSTEM: Breath sounds diminished at the bases. A few scattered rhonchi and crackles. ABDOMEN: Soft, non-tender. No mass palpable. LEGS: No edema. No swelling. NERVOUS SYSTEM: Diffusely weak. LABS: WBC 8.2, hemoglobin 11.7, glucose 187. C-reactive protein 16.6. ASSESSMENT: 1. Acute bronchial asthma, acute exacerbation, with acute purulent tracheobronchitis and left lower pneumonia, possibly interstitial pneumonia. 2. Fever, dry cough and shortness of breath. COVID-19 test negative x2. 3. Continued diarrhea and gastrointestinal symptoms; possible acute gastroenteritis, viral. 4. Lactic acidosis, present on admission, improved. 5. Elevated D-dimer. 6. History of chronic bronchial asthma, intermittent. 7. History of recent influenza hospital admission. 8. Elevated lactic acid, present on admission. 9. Hypomagnesemia, present on admission. 10.Hyponatremia. 11.Anemia, normocytic; anemia of chronic disease. 12.Obesity with body mass index of 41.5. 13.History of diabetes mellitus, type 2. 14.History of gastroesophageal reflux disease. 15.Hypertension. 16.Hyperlipidemia. 17.History of myocardial infarction. 18.History of mitral valve prolapse. 19.History of pulmonary embolus. 20.History of sleep apnea. 21.History of obesity. 22.History of asthmatic bronchitis. 23.History of obstructive sleep apnea. 24.History of chronic back pain, degenerative joint disease, herniated disc. 25.History of Clostridium difficile colitis. 26.History of bleeding peptic ulcer. 27.Nephrolithiasis. 28.History of urinary tract infection with sepsis. 29.History of methicillin-resistant Staphylococcus aeruginosa. 30.History of degenerative joint disease. 31.History of cholecystectomy. 32.History urolithiasis with ESWL as well as ureteral stents, double. 33.FULL CODE. RECOMMENDATIONS AND DISCUSSION: In this 53-year-old gentleman who presented with multiple complex medical issues, we will monitor the patient closely, continue the current medications, continue with symptomatic treatment. Otherwise, we will increase the pain medications and use Imodium p.r.n. Continue the empiric antibiotics currently. Continue the bronchodilators. Otherwise, we will keep the patient n.p.o. except medications until the diarrhea is controlled. Once the diarrhea is better, we will start clear liquids and advance as tolerated. Closely follow with multiple consultants and repeat labs also will be ordered for tomorrow. Further recommendations to follow. MMODL / IJN: [id number] /
[2019-10-16 17:14] LABS: Glucose,Whole Blood 250 mg/dL (75-99)
[2019-10-16 20:24] LABS: Glucose,Whole Blood 266 mg/dL (75-99)
[2019-10-16] MEDS: INSULIN DETEMIR (LEVEMIR) 100 UNIT/ML SYR SQ SCH (20:57)
[2019-10-16 21:03] VITALS: RESP 20
--- NOTE | 2019-10-17 00:21 | PN ---
PROGRESS NOTE DATE OF SERVICE: 10/16/2019 REASON FOR FOLLOWUP: Acute gastroenteritis, possibly bacterial. INTERVAL HISTORY: The patient is currently afebrile, has been breathing comfortably. The patient's diarrhea has slowed down. Denies any abdominal pain. No further vomiting. No chest pain, shortness of breath or cough. PHYSICAL EXAMINATION: Blood pressure 151/82 with a pulse of 88, temperature of 98. He is 97% on room air. General description is a middle-aged male lying in bed in no distress. RESPIRATORY SYSTEM: Unlabored breathing. Clear to auscultation anteriorly. HEART: S1, S2. Regular rate and rhythm. ABDOMEN: Soft. Mildly distended. No guarding or rigidity. LABS: Hemoglobin is 11.7, white count 8.2. CRP 16.6. Stool has been negative. DIAGNOSTIC IMPRESSION AND PLAN: Patient admitted to hospital with sepsis in this patient with evidence of acute gastroenteritis with predominant gastrointestinal symptoms. The patient is covered with Rocephin and Flagyl. Cultures remain negative. The patient will continue to finish therapy with a short course of oral Ceftin and Flagyl. Monitor clinical course closely. MMODL / IJN: [id number] /
[2019-10-17] MEDS: HEPARIN SODIUM,PORCINE 5,000 UNIT/ML 1 ML VIAL SQ SCH ×2 (00:50→08:00)
[2019-10-17] MEDS: SODIUM CHLORIDE 0.9% 1,000 ML IV SCH (00:53)
[2019-10-17] MEDS: oxyCODONE-APAP 10-325MG 1 EACH TAB PO PRN ×2 (04:22→10:24)
[2019-10-17] MEDS: CARVEDILOL 12.5 MG TAB PO SCH (04:28)
[2019-10-17 04:53] VITALS: BP 160/102; PULSE 77; TEMP 97.7
[2019-10-17 07:07] LABS: Glucose,Whole Blood 139 mg/dL (75-99)
[2019-10-17 07:29] LABS: Basophils % (A) 0 %; Eosinophils # (A) 0.2 k/uL (0-0.7); Eosinophils % (A) 3 %; HCT 33.6 % (39.0-53.0); HGB 11.4 gm/dL (13.0-17.5); Lymphocytes # (A) 2.2 k/uL (1.0-4.8); Lymphocytes % (A) 26 %; MCH 28.2 pg (25.0-35.0); MCHC 33.8 g/dL (31.0-37.0); MCV 83.4 fL (80.0-100.0); Mean Platelet Volume 8.1; Monocytes # (A) 0.5 k/uL (0-1.0); Monocytes % (A) 6 %; Neutrophils # (A) 5.4 k/uL (1.3-7.7); Neutrophils % (A) 63 %; Platelet Count 293 k/uL (150-450); RBC 4.02 m/uL (4.30-5.90); WBC 8.5 k/uL (3.8-10.6)
[2019-10-17 07:54] LABS: African American GFR (CKD) >90 (>60 ml/min/1.73 sqM); Anion Gap 9 mmol/L; Blood Urea Nitrogen 11 mg/dL (9-20); Calcium 8.5 mg/dL (8.4-10.2); Carbon Dioxide 22 mmol/L (22-30); Chloride 107 mmol/L (98-107); Glucose 113 mg/dL (74-99); Non-African American GFR(CKD) >90 (>60 ml/min/1.73 sqM); Potassium 3.7 mmol/L (3.5-5.1); Sodium 138 mmol/L (137-145)
[2019-10-17] MEDS: ASPIRIN 325 MG TAB PO SCH (07:59)
[2019-10-17] MEDS: INSULIN ASPART (NovoLOG) 100 UNIT/ML VIAL SQ SCH ×2 (07:59→12:30)
[2019-10-17] MEDS: guaiFENesin 600 MG TABLET.ER PO SCH (07:59)
[2019-10-17] MEDS: metroNIDAZOLE 500 MG TAB PO SCH (08:00)
[2019-10-17] MEDS: predniSONE 20 MG TAB PO SCH (08:00)
[2019-10-17] MEDS: ATORVASTATIN 20 MG TAB PO SCH (08:00)
[2019-10-17] MEDS: PANTOPRAZOLE 40 MG TABLET PO SCH (08:00)
[2019-10-17] MEDS: GABAPENTIN 300 MG CAP PO SCH (08:00)
[2019-10-17] MEDS: CHOLESTYRAMINE (WITH SUGAR) 4 GM PACKET PO SCH (08:00)
[2019-10-17] MEDS: LISINOPRIL 20 MG TAB PO SCH (08:00)
[2019-10-17] MEDS: DILTIAZEM CD 300 MG CAP.ER.24H PO SCH (08:02)
[2019-10-17] MEDS: ALBUTEROL HFA INHALER INHALATION SCH ×2 (08:47→12:29)
[2019-10-17] MEDS: SYMBICORT 160-4.5 MCG INHALER INHALATION SCH (08:47)
[2019-10-17 12:00] LABS: Glucose,Whole Blood 189 mg/dL (75-99)
--- NOTE | 2019-10-17 14:07 | P.DS ---
Providers Date of admission: 10/12/19 16:40 Expected date of discharge: 10/17/19 Attending physician: Maximilian Chaparro Consults: 10/12/19 17:53 Consult Physician Routine Consulting Provider: Yaritza Leigh Consult Reason/Comments: FUO Do you want consulting provider notified?: Yes 10/12/19 17:54 Consult Physician Routine Consulting Provider: Caio Jorge Consult Reason/Comments: cough, SOB Do you want consulting provider notified?: Yes Primary care physician: [facility] Course: Final diagnosis Acute bronchial asthma, acute exacerbation, with acute purulent tracheobronchitis and left lower lobe pneumonia, possibly interstitial pneumonia Fever, dry cough, and shortness of breath Covid 19 ruled out with negative tests 2 Continue diarrhea and gastrointestinal symptoms, possibly acute gastroenteritis, viral Lactic acidosis, present on admission, improved Elevated d-dimer History of chronic bronchial asthma, intermittent History of recent influenza hospital admission Elevated lactic acid, present on admission Hypomagnesemia, present on admission Hyponatremia Anemia, normocytic, anemia of chronic disease Obesity with body mass index of 41.5 history of diabetes mellitus, type II history of gastroesophageal reflux disease Hypertension Hyperlipidemia History of myocardial infarction History of mitral valve prolapse History of pulmonary embolus history of sleep apnea History of obesity history of asthmatic bronchitis History of obstructive sleep apnea history of chronic back pain, degenerative joint disease, herniated disc History of clostridium difficile colitis history of bleeding peptic ulcer Nephrolithiasis History of UTI with sepsis History of MRSA History of DJD history of cholecystectomy History of urolithiasis with ESWL as well as ureteral stents, double Full code Discharge disposition Patient is being discharged in a stable condition with guarded prognosis to home. Patient will follow-up with Dr. Muniz upon discharge. Patient will continue on a short course of oral antibiotics in the form of Flagyl 500 mg 3 times a day along with Ceftin 5 mg twice a day for the next one week. Patient will also continue on a prednisone taper in the outpatient setting. Total time taken is 35 minutes. History of present illness This is a 53-year-old male who was recently admitted with acute bronchial asthma with acute purulent tracheobronchitis and left lower lobe pneumonia possibly interstitial pneumonia and was being closely monitored. Patient was tested Covid 19 and was negative 2. Pulmonary was following. During hospitalization patient continue to have significant diarrhea although states has improved and is no longer having diarrhea at this time. Infectious disease was following. Patient will continue on oral antibiotics in the form of Flagyl and Ceftin for the next week. Patient is continue with bronchodilators along with a prednisone taper in the outpatient setting as well. Currently no reports of chest pain, shortness of breath, or palpitations. Patient is afebrile. No reports of nausea or vomiting and patient is tolerating diet. On exam vital signs are stable. Temp is 97.7F, pulse is 77, respirations are 20, blood pressure is 160/102, oxygen saturation is 97% on room air. Cardio S1, S2 are muffled. Respiratory system shows a few scattered rhonchi noted. Abdomen is soft and nontender. Nervous system shows no new focal deficits. Please refer to medication reconciliation sheet for a list of medications. Patient Condition at Discharge: Good Plan - Discharge Summary Discharge Rx Participant: Yes New Discharge Prescriptions: New guaiFENesin [Mucinex] 1,200 mg PO Q12HR 6 Days #12 tablet.er predniSONE 10 mg PO DIRECTED #30 tab Budesonide-Formot 160-4.5 Mcg [Symbicort 160-4.5 Mcg Inhaler] 2 puff INHALATION RT-BID 30 Days #1 puff Albuterol Inhaler [Ventolin Hfa Inhaler] 2 puff INHALATION RT-QID 30 Days #1 puff Albuterol Inhaler [Ventolin Hfa Inhaler] 2 puff INHALATION RT-QID PRN puff PRN Reason: Shortness Of Breath Cefuroxime Axetil [Ceftin] 500 mg PO BID 7 Days #14 tab metroNIDAZOLE [Flagyl] 500 mg PO TID 7 Days #21 tab Continue Omeprazole [PriLOSEC] 20 mg PO DAILY glipiZIDE XL [Glucotrol XL] 5 mg PO DAILY Carvedilol [Coreg] 12.5 mg PO BID Lisinopril [Zestril] 40 mg PO DAILY Insulin Glargine,Hum.rec.anlog [Basaglar Kwikpen U-100] 20 unit SQ HS Atorvastatin [Lipitor] 20 mg PO DAILY Diltiazem Cd [Cardizem CD] 300 mg PO DAILY Diclofenac Sodium [Voltaren] 75 mg PO BID PRN PRN Reason: Pain Aspirin 325 mg PO DAILY 30 Days #30 tab oxyCODONE-APAP 10-325MG [Percocet 10-325 mg] 1 tab PO TID PRN PRN Reason: Pain Gabapentin [Neurontin] 300 mg PO BID Discharge Medication List Omeprazole [PriLOSEC] 20 mg PO DAILY 12/11/17 [History] Carvedilol [Coreg] 12.5 mg PO BID 07/22/19 [History] glipiZIDE XL [Glucotrol XL] 5 mg PO DAILY 07/22/19 [History] Atorvastatin [Lipitor] 20 mg PO DAILY 08/26/19 [History] Insulin Glargine,Hum.rec.anlog [Basaglar Kwikpen U-100] 20 unit SQ HS 08/26/19 [History] Lisinopril [Zestril] 40 mg PO DAILY 08/26/19 [History] Diclofenac Sodium [Voltaren] 75 mg PO BID PRN 09/01/19 [History] Diltiazem Cd [Cardizem CD] 300 mg PO DAILY 09/01/19 [History] Aspirin 325 mg PO DAILY 30 Days #30 tab 09/02/19 [Rx] Gabapentin [Neurontin] 300 mg PO BID 10/12/19 [History] oxyCODONE-APAP 10-325MG [Percocet 10-325 mg] 1 tab PO TID PRN 10/12/19 [History] Albuterol Inhaler [Ventolin Hfa Inhaler] 2 puff INHALATION RT-QID 30 Days #1 puff 10/17/19 [Rx] Albuterol Inhaler [Ventolin Hfa Inhaler] 2 puff INHALATION RT-QID PRN puff 10/17/19 [Rx] Budesonide-Formot 160-4.5 Mcg [Symbicort 160-4.5 Mcg Inhaler] 2 puff INHALATION RT-BID 30 Days #1 puff 10/17/19 [Rx] Cefuroxime Axetil [Ceftin] 500 mg PO BID 7 Days #14 tab 10/17/19 [Rx] guaiFENesin [Mucinex] 1,200 mg PO Q12HR 6 Days #12 tablet.er 10/17/19 [Rx] metroNIDAZOLE [Flagyl] 500 mg PO TID 7 Days #21 tab 10/17/19 [Rx] predniSONE 10 mg PO DIRECTED #30 tab 10/17/19 [Rx] Follow up Appointment(s)/Referral(s): Trav Muniz MD [Primary Care Provider] - 1-2 days Activity/Diet/Wound Care/Special Instructions: Activity Limited until follow-up Follow-up with primary care provider upon discharge Continue with antibiotics until finished Continue with the prednisone taper Consistent Carb diet Discharge Disposition: HOME SELF-CARE
--- NOTE | 2019-10-17 14:21 | PN ---
PROGRESS NOTE DATE OF SERVICE: 10/17/2019 REASON FOR FOLLOWUP: Acute gastroenteritis, possibly bacterial. INTERVAL HISTORY: The patient was seen on rounds this morning. The patient overall is feeling better and breathing comfortably. Denies having any chest pain or any cough. No further nausea or vomiting and diarrhea has resolved. PHYSICAL EXAMINATION: Blood pressure 160/100 with a pulse of 77, temperature 97.7. He is 97% on room air. General description is a middle-aged male lying in bed in no distress. RESPIRATORY SYSTEM: Unlabored breathing. Clear to auscultation anteriorly. HEART: S1, S2. Regular rate and rhythm. ABDOMEN: Soft. No tenderness. LABS: Hemoglobin is 11.4, white count 8.5. Creatinine 0.53. DIAGNOSTIC IMPRESSION AND PLAN: Patient with acute gastroenteritis, possibly bacterial, overall improvement on Rocephin and Flagyl. To finish therapy with oral Ceftin and Flagyl for about a week. Continue with supportive care. MMODL / IJN: [id number] /
== END 2019-10-17 13:27 | disposition home or self-care (01) | DRG 202 ==
LOC: EC 13:51 → 3SCARD 16:40 → 6NMEDSUR 10-13 19:09
PROVIDERS: ADMIT Internal Medicine; ATTEND Internal Medicine
DX: J45.21 Mild intermittent asthma with (acute) exacerbation (principal); J84.9 Interstitial pulmonary disease, unspecified; E87.2 Acidosis; Z68.41 Body mass index [BMI] 40.0-44.9, adult; E87.1 Hypo-osmolality and hyponatremia; J44.0 Chronic obstructive pulmonary disease with (acute) lower respiratory infection; J20.9 Acute bronchitis, unspecified; D63.8 Anemia in other chronic diseases classified elsewhere; A08.4 Viral intestinal infection, unspecified; Z20.828 Contact with and (suspected) exposure to other viral communicable diseases; E66.01 Morbid (severe) obesity due to excess calories; D72.810 Lymphocytopenia; E78.5 Hyperlipidemia, unspecified; K21.9 Gastro-esophageal reflux disease without esophagitis; I10 Essential (primary) hypertension; I25.2 Old myocardial infarction; G47.33 Obstructive sleep apnea (adult) (pediatric); I25.10 Atherosclerotic heart disease of native coronary artery without angina pectoris; I34.1 Nonrheumatic mitral (valve) prolapse; G89.29 Other chronic pain; E83.42 Hypomagnesemia; E11.9 Type 2 diabetes mellitus without complications; H93.19 Tinnitus, unspecified ear; M19.90 Unspecified osteoarthritis, unspecified site; N28.1 Cyst of kidney, acquired; M51.26 Other intervertebral disc displacement, lumbar region; N20.0 Calculus of kidney; Z79.82 Long term (current) use of aspirin; Z79.4 Long term (current) use of insulin; Z79.899 Other long term (current) drug therapy; Z86.19 Personal history of other infectious and parasitic diseases; Z86.711 Personal history of pulmonary embolism; Z86.14 Personal history of Methicillin resistant Staphylococcus aureus infection; Z99.89 Dependence on other enabling machines and devices; Z87.442 Personal history of urinary calculi; Z87.440 Personal history of urinary (tract) infections; Z90.49 Acquired absence of other specified parts of digestive tract; Z98.1 Arthrodesis status; Z87.11 Personal history of peptic ulcer disease; Z98.890 Other specified postprocedural states; Z71.3 Dietary counseling and surveillance; Z88.6 Allergy status to analgesic agent; Z88.1 Allergy status to other antibiotic agents; Z88.5 Allergy status to narcotic agent; Z88.8 Allergy status to other drugs, medicaments and biological substances; Z82.49 Family history of ischemic heart disease and other diseases of the circulatory system; Z82.61 Family history of arthritis; Z83.49 Family history of other endocrine, nutritional and metabolic diseases; Z80.9 Family history of malignant neoplasm, unspecified
CPT/HCPCS: 36415; 71045; 71275; 74176; 80048; 80053; 81003; 82728; 83605; 83615; 83735; 84484; 85025; 85379; 85610; 85730; 86140; 87040; 87045; 87046; 87324; 87502; 87635; 93005; 93306; 94640; 96361; 96365; 96368; 96375; 96376; 99285

== ENCOUNTER 2019-11-02 16:26 | Emergency (ER) | payer OTHER ==
[2019-11-02 16:32] VITALS: TEMP 98.7
[2019-11-02] MEDS ORDERED: HYDROmorphone 0.5 MG/0.5 ML SYRINGE IM STA (17:21)
[2019-11-02] MEDS ORDERED: methylPREDNISolone SOD SUCCI 125 MG/2 ML VIAL IM ONE (17:22)
--- NOTE | 2019-11-02 17:26 | ED ---
General Adult HPI - General Chief complaint: Back Pain/Injury Stated complaint: pinched nerve Time Seen by Provider: 11/02/19 17:05 Source: patient, RN notes reviewed Mode of arrival: ambulatory Limitations: no limitations - History of Present Illness Initial comments: 53-year-old male complicated past medical history including lumbar disc disease, chronic back pain, previous spinal surgery presents to the emergency department for a chief complaint of low back pain. Patient states that he was supposed to have surgery in September. States that he was taking care of his mother yesterday when she fell. States he went to pick her up and felt a sudden pain in his back. Patient denies any weakness of the lower extremities. Denies any numbness or tingling of the groin or buttock. Patient states he is ambulating but it is painful. He denies any fevers. Denies any abdominal pain.Patient has no other complaints at this time including shortness of breath, chest pain, abdominal pain, nausea or vomiting, headache, or visual changes. - Related Data Home Medications Medication Instructions Recorded Confirmed Omeprazole [PriLOSEC] 20 mg PO DAILY 12/11/17 10/12/19 Carvedilol [Coreg] 12.5 mg PO BID 07/22/19 10/12/19 glipiZIDE XL [Glucotrol XL] 5 mg PO DAILY 07/22/19 10/12/19 Atorvastatin [Lipitor] 20 mg PO DAILY 08/26/19 10/12/19 Insulin Glargine,Hum.rec.anlog 20 unit SQ HS 08/26/19 10/12/19 [Basaglar Kwikpen U-100] Lisinopril [Zestril] 40 mg PO DAILY 08/26/19 10/12/19 Diclofenac Sodium [Voltaren] 75 mg PO BID PRN 09/01/19 10/12/19 Diltiazem Cd [Cardizem CD] 300 mg PO DAILY 09/01/19 10/12/19 Gabapentin [Neurontin] 300 mg PO BID 10/12/19 10/12/19 oxyCODONE-APAP 10-325MG [Percocet 1 tab PO TID PRN 10/12/19 10/12/19 10-325 mg] Previous Rx's Medication Instructions Recorded Aspirin 325 mg PO DAILY 30 Days #30 tab 09/02/19 Albuterol Inhaler [Ventolin Hfa 2 puff INHALATION RT-QID 30 Days 10/17/19 Inhaler] #1 puff Albuterol Inhaler [Ventolin Hfa 2 puff INHALATION RT-QID PRN puff 10/17/19 Inhaler] Budesonide-Formot 160-4.5 Mcg 2 puff INHALATION RT-BID 30 Days 10/17/19 [Symbicort 160-4.5 Mcg Inhaler] #1 puff Cefuroxime Axetil [Ceftin] 500 mg PO BID 7 Days #14 tab 10/17/19 guaiFENesin [Mucinex] 1,200 mg PO Q12HR 6 Days #12 10/17/19 tablet.er metroNIDAZOLE [Flagyl] 500 mg PO TID 7 Days #21 tab 10/17/19 predniSONE 10 mg PO DIRECTED #30 tab 10/17/19 Allergies Allergy/AdvReac Type Severity Reaction Status Date / Time doxycycline Allergy Swelling Verified 11/02/19 16:32 ketorolac tromethamine Allergy Rash/Hives Verified 11/02/19 16:32 [From Toradol] morphine Allergy Rash/Hives Verified 11/02/19 16:32 metoclopramide HCl AdvReac Dystonic Verified 11/02/19 16:32 [From Reglan] Reaction prochlorperazine edisylate AdvReac Dystonic Verified 11/02/19 16:32 [From Compazine] Reaction prochlorperazine maleate AdvReac Dystonic Verified 11/02/19 16:32 [From Compazine] Reaction Review of Systems ROS Statement: Those systems with pertinent positive or pertinent negative responses have been documented in the HPI. ROS Other: All systems not noted in ROS Statement are negative. Past Medical History Past Medical History: Asthma, Chest Pain / Angina, Diabetes Mellitus, GERD/Reflux, Hyperlipidemia, Hypertension, Myocardial Infarction ([place]), Mitral Valve Prolapse (MVP), Pulmonary Embolus (PE), Sleep Apnea/CPAP/BIPAP Additional Past Medical History / Comment(s): Obesity, chronic asthmatic bronchitis, previous history of pulmonary embolism, objective sleep apnea, diabetes mellitus, hypertension, hyperlipidemia, previous history of myocardial infarction with underlying coronary artery disease, renal cysts, chronic back pain secondary to herniated lumbar disc disease with symptoms of sciatica, history of right lower extremity fracture at the age of 13, history of C. diff colitis approximately 4 years ago, history of bleeding peptic ulcer, nephrolithiasis, previous history of UTI and secondary sepsis. Last Myocardial Infarction Date:: 2011 History of Any Multi-Drug Resistant Organisms: MRSA Date of last positivie culture/infection: 2016 MDRO Source:: left axilla Past Surgical History: Appendectomy, Back Surgery, Cholecystectomy, Heart Catheterization, Hernia Repair Additional Past Surgical History / Comment(s): 2007 back surgery with decompression fusion at , 2011, 2016 cardiac cath, multiple ESWL/ureteral stents/ double J catheters, L inquinal hernia repair, PICC line for ABX for urosepsis-since removed., Hx of c-diff. Past Anesthesia/Blood Transfusion Reactions: No Reported Reaction Past Psychological History: No Psychological Hx Reported Smoking Status: Never smoker Past Alcohol Use History: None Reported Past Drug Use History: None Reported - Past Family History Father Family Medical History: Chest Pain / Angina Additional Family Medical History / Comment(s): "lung problems" Mother Family Medical History: Cancer, Chest Pain / Angina, Congestive Heart Failure (CHF), Osteoarthritis (OA), Thyroid Disorder General Exam Limitations: no limitations General appearance: alert, in no apparent distress Head exam: Present: atraumatic, normocephalic, normal inspection Eye exam: Present: normal appearance, PERRL, EOMI. Absent: scleral icterus, conjunctival injection, periorbital swelling ENT exam: Present: normal exam, mucous membranes moist Neck exam: Present: normal inspection, full ROM. Absent: tenderness, meningismus, lymphadenopathy Respiratory exam: Present: normal lung sounds bilaterally. Absent: respiratory distress, wheezes, rales, rhonchi, stridor Cardiovascular Exam: Present: regular rate, normal rhythm, normal heart sounds. Absent: systolic murmur, diastolic murmur, rubs, gallop, clicks GI/Abdominal exam: Present: soft, normal bowel sounds. Absent: distended, tenderness, guarding, rebound, rigid Extremities exam: Present: other (Sensation intact, strength 5 out of 5 in the lower extremities bilaterally. DP pulse 2+ bilaterally.) Back exam: Present: paraspinal tenderness (Bilateral paraspinal lumbar tenderness. No significant vertebral tenderness.). Absent: CVA tenderness (R), CVA tenderness (L) Neurological exam: Present: alert Course Vital Signs 11/02/19 11/02/19 16:28 17:48 Temperature 98.7 F Pulse Rate 112 H 104 H Respiratory 18 16 Rate Blood Pressure 162/123 188/118 O2 Sat by Pulse 99 98 Oximetry Medical Decision Making - Medical Decision Making 53-year-old male with a Located past medical history including chronic back pain presents to the emergency department for a chief complaint of back injury. Patient states he went to pick his mother about the floor and felt a strain in his low back. It has been painful despite taking his Percocet. He does not have any difficulty walking but does have pain when doing so. He denies bladder or bowel changes, numbness or tingling or weakness of the lower extremities. He denies fevers or chills. Patient was given Dilaudid and had significant improvement in pain. He is already on steroids at home. Patient was able to ambulate in the emergency room. Patient will be discharged home to follow up with primary care. Patient was hypertensive upon arrival which was likely secondary to pain. This improved throughout patient's stay. He is asymptomat ic, will follow up with primary care for high blood pressure. Disposition Clinical Impression: Mechanical back pain Disposition: HOME SELF-CARE Condition: Good Instructions (If sedation given, give patient instructions): Acute Low Back Pain (ED) Additional Instructions: Please continue to take your pain medication at home. Follow-up with your doctor and surgeon. If you have any worsening symptoms such as numbness or tingling in the groin or buttock, difficulty ambulating, fevers, or weakness of the lower extremities return to the emergency department. Is patient prescribed a controlled substance at d/c from ED?: No Referrals: Trav Muniz MD [Primary Care Provider] - 1-2 days Time of Disposition: 18:09
[2019-11-02 17:48] VITALS: RESP 16
[2019-11-02 18:19] VITALS: BP 154/98; PULSE 86
== END 2019-11-02 18:18 | disposition home or self-care (01) ==
LOC: EC 16:26
DX: G89.29 Other chronic pain (principal); M54.5 Low back pain; S39.92XA Unspecified injury of lower back, initial encounter; I10 Essential (primary) hypertension; I25.2 Old myocardial infarction; E11.9 Type 2 diabetes mellitus without complications; K21.9 Gastro-esophageal reflux disease without esophagitis; E78.5 Hyperlipidemia, unspecified; I34.1 Nonrheumatic mitral (valve) prolapse; G47.30 Sleep apnea, unspecified; E66.9 Obesity, unspecified; G47.39 Other sleep apnea; Z88.8 Allergy status to other drugs, medicaments and biological substances; I25.10 Atherosclerotic heart disease of native coronary artery without angina pectoris; Z79.899 Other long term (current) drug therapy; Z79.4 Long term (current) use of insulin; Z88.1 Allergy status to other antibiotic agents; Z88.6 Allergy status to analgesic agent; Z88.5 Allergy status to narcotic agent; Z99.89 Dependence on other enabling machines and devices; Z95.5 Presence of coronary angioplasty implant and graft; Z98.890 Other specified postprocedural states; Z86.14 Personal history of Methicillin resistant Staphylococcus aureus infection; Z68.37 Body mass index [BMI] 37.0-37.9, adult; W19.XXXA Unspecified fall, initial encounter
CPT/HCPCS: 99283; 96372 ×2; J2930; J1170

== ENCOUNTER 2019-12-01 21:05 | Emergency (ER) | payer OTHER ==
[2019-12-01 21:30] VITALS: TEMP 99
[2019-12-01] MEDS ORDERED: HYDROmorphone 1 MG/ML 1 ML SYRINGE IM STA (21:39)
[2019-12-01] MEDS ORDERED: HYDROmorphone 0.5 MG/0.5 ML SYRINGE IM STA (21:41)
--- NOTE | 2019-12-01 22:42 | ED ---
General Adult HPI - General Chief complaint: Back Pain/Injury Stated complaint: Back Pain Time Seen by Provider: 12/01/19 21:34 Source: patient, RN notes reviewed, old records reviewed Mode of arrival: wheelchair Limitations: physical limitation - History of Present Illness Initial comments: 54-year-old male patient presents to ED for evaluation of back pain. Patient was the pain is chronic in nature. States that he was bending over picking up a laundry basket approximately 3 days ago and believes he strained his lumbar spine region. Denies red flag symptoms. Denies any weakness loss of bowel or bladder control, states that from time to time he has some very very mild paresthesias down the right posterior aspect of the leg which he states is normal for him. Denies any falls. Denies any other complaints. Systemic: Pt denies fatigue, fever/chills, rash. Pt denies weakness, night sweats, weight loss. Neuro: Pt denies headache, visual disturbances, syncope or pre-syncope. HEENT: Pt denies ocular discharge or irritation, otalgia, rhinorrhea, pharyngitis or notable lymphadenopathy. Cardiopulmonary: Pt denies chest pain, SOB, heart palpitations, dyspnea on exertion. Abdominal/GI: Pt denies abdominal pain, n/v/d. : Pt denies dysuria, burning w/ urination, frequency/urgency. Denies new onset urinary or bowel incontinence. MSK: Pt denies myalgia, loss of strength or function in extremities. Neuro: Pt denies new onset weakness, paresthesias. - Related Data Home Medications Medication Instructions Recorded Confirmed Omeprazole [PriLOSEC] 20 mg PO DAILY 12/11/17 10/12/19 Carvedilol [Coreg] 12.5 mg PO BID 07/22/19 10/12/19 glipiZIDE XL [Glucotrol XL] 5 mg PO DAILY 07/22/19 10/12/19 Atorvastatin [Lipitor] 20 mg PO DAILY 08/26/19 10/12/19 Insulin Glargine,Hum.rec.anlog 20 unit SQ HS 08/26/19 10/12/19 [Basaglar Kwikpen U-100] Lisinopril [Zestril] 40 mg PO DAILY 08/26/19 10/12/19 Diclofenac Sodium [Voltaren] 75 mg PO BID PRN 09/01/19 10/12/19 Diltiazem Cd [Cardizem CD] 300 mg PO DAILY 09/01/19 10/12/19 Gabapentin [Neurontin] 300 mg PO BID 10/12/19 10/12/19 oxyCODONE-APAP 10-325MG [Percocet 1 tab PO TID PRN 10/12/19 10/12/19 10-325 mg] Previous Rx's Medication Instructions Recorded Aspirin 325 mg PO DAILY 30 Days #30 tab 09/02/19 Albuterol Inhaler [Ventolin Hfa 2 puff INHALATION RT-QID 30 Days 10/17/19 Inhaler] #1 puff Albuterol Inhaler [Ventolin Hfa 2 puff INHALATION RT-QID PRN puff 10/17/19 Inhaler] Budesonide-Formot 160-4.5 Mcg 2 puff INHALATION RT-BID 30 Days 10/17/19 [Symbicort 160-4.5 Mcg Inhaler] #1 puff Cefuroxime Axetil [Ceftin] 500 mg PO BID 7 Days #14 tab 10/17/19 guaiFENesin [Mucinex] 1,200 mg PO Q12HR 6 Days #12 10/17/19 tablet.er metroNIDAZOLE [Flagyl] 500 mg PO TID 7 Days #21 tab 10/17/19 predniSONE 10 mg PO DIRECTED #30 tab 10/17/19 Allergies Allergy/AdvReac Type Severity Reaction Status Date / Time doxycycline Allergy Swelling Verified 12/01/19 21:30 ketorolac tromethamine Allergy Rash/Hives Verified 12/01/19 21:30 [From Toradol] morphine Allergy Rash/Hives Verified 12/01/19 21:30 metoclopramide HCl AdvReac Dystonic Verified 12/01/19 21:30 [From Reglan] Reaction prochlorperazine edisylate AdvReac Dystonic Verified 12/01/19 21:30 [From Compazine] Reaction prochlorperazine maleate AdvReac Dystonic Verified 12/01/19 21:30 [From Compazine] Reaction Review of Systems ROS Statement: Those systems with pertinent positive or pertinent negative responses have been documented in the HPI. ROS Other: All systems not noted in ROS Statement are negative. Past Medical History Past Medical History: Asthma, Chest Pain / Angina, Diabetes Mellitus, GERD/Reflux, Hyperlipidemia, Hypertension, Myocardial Infarction ([place]), Mitral Valve Prolapse (MVP), Pulmonary Embolus (PE), Sleep Apnea/CPAP/BIPAP Additional Past Medical History / Comment(s): Obesity, chronic asthmatic bronchitis, previous history of pulmonary embolism, objective sleep apnea, diabetes mellitus, hypertension, hyperlipidemia, previous history of myocardial infarction with underlying coronary artery disease, renal cysts, chronic back pain secondary to herniated lumbar disc disease with symptoms of sciatica, history of right lower extremity fracture at the age of 13, history of C. diff colitis approximately 4 years ago, history of bleeding peptic ulcer, nephrolithiasis, previous history of UTI and secondary sepsis. Last Myocardial Infarction Date:: 2011 History of Any Multi-Drug Resistant Organisms: MRSA Date of last positivie culture/infection: 2015 MDRO Source:: left axilla Past Surgical History: Appendectomy, Back Surgery, Cholecystectomy, Heart Catheterization, Hernia Repair Additional Past Surgical History / Comment(s): 2007 back surgery with decompression fusion at [facility], 2011, 2016 cardiac cath, multiple ESWL/ureteral stents/ double J catheters, L inquinal hernia repair, PICC line for ABX for urosepsis-since removed., Hx of c-diff. Past Anesthesia/Blood Transfusion Reactions: No Reported Reaction Past Psychological History: No Psychological Hx Reported Smoking Status: Never smoker Past Alcohol Use History: None Reported Past Drug Use History: None Reported - Past Family History Father Family Medical History: Chest Pain / Angina Additional Family Medical History / Comment(s): "lung problems" Mother Family Medical History: Cancer, Chest Pain / Angina, Congestive Heart Failure (CHF), Osteoarthritis (OA), Thyroid Disorder General Exam - General Exam Comments Initial Comments: Constitutional: NAD, AOX3, Pt has pleasant affect. HEENT: NC/AT, trachea midline, neck supple, no lymphadenopathy. Posterior pharynx non erythematous, without exudates. External ears appear normal, without discharge. Mucous membranes moist. Eyes PERRLA, EOM intact. There is no scleral icterus. No pallor noted. Cardiopulmonary: RRR, no murmurs, rubs or gallops, no JVD noted. Lungs CTAB in anterior and posterior turner. No peripheral edema. Abdominal exam: Abdomen soft and non-distended. Abdomen non-tender to palpation in all 4 quadrants. Bowel sounds active in LLQ. No hepatosplenomegaly. No ecchymosis Neuro: CN II-XII grossly intact. No nuchal rigidity. No raccon eyes, no zavaleta sign, no hemotympanum. No cervical spinal tenderness. MSK: No posterior calf tenderness bilaterally, homans sign negative bilaterally. Posterior tibialis and radial pulse +2 bilaterally. Sensation intact in upper and lower extremities. Full active ROM in upper and lower extremities, 5/5 stregnth. heel to toe walking is intact. 5 out of 5 strength psoas quadriceps muscles. ambulatory without difficulty. Lumbar spine region mildly tender to palpation. No skin changes. Limitations: physical limitation Course Vital Signs 12/01/19 12/01/19 21:25 22:51 Temperature 99.0 F Pulse Rate 132 H 72 Respiratory 22 16 Rate Blood Pressure 145/98 144/86 O2 Sat by Pulse 97 98 Oximetry Medical Decision Making - Medical Decision Making 54-year-old male patient presents to ED for evaluation of back pain. Patient was the pain is chronic in nature. States that he was bending over picking up a laundry basket approximately 3 days ago and believes he strained his lumbar spine region. Denies red flag symptoms. Denies any weakness loss of bowel or bladder control, states that from time to time he has some very very mild paresthesias down the right posterior aspect of the leg which he states is normal for him. Denies any falls. Denies any other complaints. Patient will signs initial displayed mild tachycardia likely secondary to pain. Stable secondary to pain control.. Physical exam displayed heel to toe walking is int act. 5 out of 5 strength psoas quadriceps muscles. Ambulatory without difficulty. Lower Lumbar spine region mildly tender to palpation. No skin changes. Patient was provided analgesia. Is feeling much improved. Discharge will follow-up with primary care provider as well as surgeon on outpatient basis. Case discussed with Dr. Dawson. Disposition Clinical Impression: Chronic back pain Disposition: HOME SELF-CARE Condition: Stable Instructions (If sedation given, give patient instructions): Acute Low Back Pain (ED) Additional Instructions: Follow-up with primary care provider tomorrow. Return to ER if condition worsens. Is patient prescribed a controlled substance at d/c from ED?: No Referrals: Trav Muniz MD [Primary Care Provider] - 1-2 days
[2019-12-01 22:51] VITALS: BP 144/86; PULSE 72; RESP 16
== END 2019-12-01 22:56 | disposition home or self-care (01) ==
LOC: EC 21:05
DX: G89.29 Other chronic pain (principal); M54.9 Dorsalgia, unspecified; R20.2 Paresthesia of skin; E11.9 Type 2 diabetes mellitus without complications; E66.9 Obesity, unspecified; E78.5 Hyperlipidemia, unspecified; I10 Essential (primary) hypertension; I25.2 Old myocardial infarction; I34.1 Nonrheumatic mitral (valve) prolapse; K21.9 Gastro-esophageal reflux disease without esophagitis; I25.119 Atherosclerotic heart disease of native coronary artery with unspecified angina pectoris; G47.39 Other sleep apnea; Z79.4 Long term (current) use of insulin; Z79.899 Other long term (current) drug therapy; R00.0 Tachycardia, unspecified; Z88.1 Allergy status to other antibiotic agents; Z88.6 Allergy status to analgesic agent; Z88.5 Allergy status to narcotic agent; Z88.8 Allergy status to other drugs, medicaments and biological substances; Z99.89 Dependence on other enabling machines and devices; Z87.19 Personal history of other diseases of the digestive system; Z98.890 Other specified postprocedural states; Z86.711 Personal history of pulmonary embolism; Z86.14 Personal history of Methicillin resistant Staphylococcus aureus infection; Z68.39 Body mass index [BMI] 39.0-39.9, adult
CPT/HCPCS: 96372; 99283; J1170

== ENCOUNTER 2019-12-12 21:36 | Emergency (ER) | payer OTHER ==
[2019-12-12] MEDS ORDERED: HYDROmorphone 1 MG/ML 1 ML SYRINGE IM STA ×2 (22:38→23:52)
--- NOTE | 2019-12-12 22:55 | ED ---
Back Pain [facility] - General Chief Complaint: Back Pain/Injury Stated Complaint: Fall, back pain Time Seen by Provider: 12/12/19 22:08 Source: patient Limitations: no limitations - History of Present Illness Initial Comments: Patient is a 54-year-old male presenting to emergency Department with complaints of back pain that has been increasing after he fell 2 days ago. Patient does have history of chronic back pain and states he is having surgery on Monday. Patient states he slipped and fell into a small ditch 2 days ago and ever since then he's been having a lot of spasms and increase in pain. Patient states he did take a pain medicine approximately 3 hours prior to arrival however is not helping. He states he wants to make sure he didn't do anything to his back. He denies any numbness and tingling into his extremities. He denies any bowel or bladder incontinence. He has no further complaints. - Related Data Home Medications Medication Instructions Recorded Confirmed Omeprazole [PriLOSEC] 20 mg PO DAILY 12/11/17 10/12/19 Carvedilol [Coreg] 12.5 mg PO BID 07/22/19 10/12/19 glipiZIDE XL [Glucotrol XL] 5 mg PO DAILY 07/22/19 10/12/19 Atorvastatin [Lipitor] 20 mg PO DAILY 08/26/19 10/12/19 Insulin Glargine,Hum.rec.anlog 20 unit SQ HS 08/26/19 10/12/19 [Basaglar Kwikpen U-100] Lisinopril [Zestril] 40 mg PO DAILY 08/26/19 10/12/19 Diclofenac Sodium [Voltaren] 75 mg PO BID PRN 09/01/19 10/12/19 Diltiazem Cd [Cardizem CD] 300 mg PO DAILY 09/01/19 10/12/19 Gabapentin [Neurontin] 300 mg PO BID 10/12/19 10/12/19 oxyCODONE-APAP 10-325MG [Percocet 1 tab PO TID PRN 10/12/19 10/12/19 10-325 mg] Previous Rx's Medication Instructions Recorded Aspirin 325 mg PO DAILY 30 Days #30 tab 09/02/19 Albuterol Inhaler [Ventolin Hfa 2 puff INHALATION RT-QID 30 Days 10/17/19 Inhaler] #1 puff Albuterol Inhaler [Ventolin Hfa 2 puff INHALATION RT-QID PRN puff 10/17/19 Inhaler] Budesonide-Formot 160-4.5 Mcg 2 puff INHALATION RT-BID 30 Days 10/17/19 [Symbicort 160-4.5 Mcg Inhaler] #1 puff Cefuroxime Axetil [Ceftin] 500 mg PO BID 7 Days #14 tab 10/17/19 guaiFENesin [Mucinex] 1,200 mg PO Q12HR 6 Days #12 10/17/19 tablet.er metroNIDAZOLE [Flagyl] 500 mg PO TID 7 Days #21 tab 10/17/19 predniSONE 10 mg PO DIRECTED #30 tab 10/17/19 Allergies Allergy/AdvReac Type Severity Reaction Status Date / Time doxycycline Allergy Swelling Verified 12/12/19 21:58 ketorolac tromethamine Allergy Rash/Hives Verified 12/12/19 21:58 [From Toradol] morphine Allergy Rash/Hives Verified 12/12/19 21:58 metoclopramide HCl AdvReac Dystonic Verified 12/12/19 21:58 [From Reglan] Reaction prochlorperazine edisylate AdvReac Dystonic Verified 12/12/19 21:58 [From Compazine] Reaction prochlorperazine maleate AdvReac Dystonic Verified 12/12/19 21:58 [From Compazine] Reaction Review of Systems ROS Statement: Those systems with pertinent positive or pertinent negative responses have been documented in the HPI. ROS Other: All systems not noted in ROS Statement are negative. Past Medical History Past Medical History: Asthma, Chest Pain / Angina, Diabetes Mellitus, GERD/Reflux, Hyperlipidemia, Hypertension, Myocardial Infarction ([place]), Mitral Valve Prolapse (MVP), Pulmonary Embolus (PE), Sleep Apnea/CPAP/BIPAP Additional Past Medical History / Comment(s): Obesity, chronic asthmatic bronchitis, previous history of pulmonary embolism, objective sleep apnea, diabetes mellitus, hypertension, hyperlipidemia, previous history of myocardial infarction with underlying coronary artery disease, renal cysts, chronic back pain secondary to herniated lumbar disc disease with symptoms of sciatica, history of right lower extremity fracture at the age of 13, history of C. diff colitis approximately 4 years ago, history of bleeding peptic ulcer, nephrolithiasis, previous history of UTI and secondary sepsis. Last Myocardial Infarction Date:: 2011 History of Any Multi-Drug Resistant Organisms: MRSA Date of last positivie culture/infection: 2016 MDRO Source:: left axilla Past Surgical History: Appendectomy, Back Surgery, Cholecystectomy, Heart Catheterization, Hernia Repair Additional Past Surgical History / Comment(s): 2007 back surgery with decompression fusion at [facility], 2011, 2016 cardiac cath, multiple ESWL/ureteral stents/ double J catheters, L inquinal hernia repair, PICC line for ABX for urosepsis-since removed., Hx of c-diff. Past Anesthesia/Blood Transfusion Reactions: No Reported Reaction Past Psychological History: No Psychological Hx Reported Smoking Status: Never smoker Past Alcohol Use History: None Reported Past Drug Use History: None Reported - Past Family History Father Family Medical History: Chest Pain / Angina Additional Family Medical History / Comment(s): "lung problems" Mother Family Medical History: Cancer, Chest Pain / Angina, Congestive Heart Failure (CHF), Osteoarthritis (OA), Thyroid Disorder General Exam - General Exam Comments Initial Comments: GENERAL: Well-appearing, well-nourished and in no acute distress, but appears uncomfortable. HEAD: Atraumatic, normocephalic. EYES: Pupils equal round and reactive to light, extraocular movements intact, sclera anicteric, conjunctiva are normal. ENT: TMs normal, nares patent, oropharynx clear without exudates. Moist mucous membranes. NECK: Normal range of motion, supple without lymphadenopathy or JVD. LUNGS: Breath sounds clear to auscultation bilaterally and equal. No wheezes rales or rhonchi. HEART: Regular rate and rhythm without murmurs, rubs or gallops. ABDOMEN: Soft, nontender, normoactive bowel sounds. No guarding, no rebound. No masses appreciated. : Deferred EXTREMITIES: No pitting or edema. No clubbing or cyanosis. 5 out of 5 strength in lower extremities. Sensation is equal bilateral. Patient has adequate glut squeeze. Patient has pain with trunk flexion and full extension. NEUROLOGICAL: Cranial nerves II through XII grossly intact. Normal speech, normal gait. PSYCH: Normal mood, normal affect. SKIN: Warm, Dry, normal turgor, no rashes or lesions noted. Limitations: no limitations Course Vital Signs 12/12/19 12/13/19 21:58 00:03 Temperature 98.0 F 97.5 F L Pulse Rate 133 H 126 H Respiratory 22 20 Rate Blood Pressure 155/116 168/101 O2 Sat by Pulse 98 97 Oximetry Medical Decision Making - Medical Decision Making Patient is a 54-year-old male here for acute on chronic low back pain. Patient is having surgery on his back on Monday. Exam reveals no red flag symptoms, no neuro deficits. X-rays revealed no acute changes. Patient was given pain control here in the ER. He will follow up with his back doctor. Patient stable for discharge. He is in agreement with this plan of care. Return parameters were discussed with the patient and he verbalized understanding. Disposition Clinical Impression: Chronic back pain, Fall Disposition: HOME SELF-CARE Condition: Stable Instructions (If sedation given, give patient instructions): Chronic Back Pain (DC) Additional Instructions: Please return to the Emergency Department if symptoms worsen or any other concerns. Follow-up with surgeon as discussed. Is patient prescribed a controlled substance at d/c from ED?: No Referrals: Trav Muniz MD [Primary Care Provider] - 1-2 days
--- NOTE | 2019-12-12 23:26 | XR ---
EXAMINATION TYPE: XR lumbar spine 2 or 3V DATE OF EXAM: 12/12/2019 COMPARISON: 09/02/2017 HISTORY: Back pain TECHNIQUE: 3 views FINDINGS: Vertebra have fairly normal alignment. There is posterior fusion surgery from L3 to S1. The re is disc prosthesis at L3-4. The sacroiliac joints are intact. There is laminectomy defect in the l ower lumbar spine. There are clips from cholecystectomy. Sacroiliac joints are intact. There is mild narrowing of the L4-5 and L5-S1 disc spaces. IMPRESSION: Posterior fusion surgery. Minor spondylotic changes. No significant progression compared to old exam.
[2019-12-13 00:05] VITALS: BP 168/101; PULSE 126; RESP 20; TEMP 97.5
== END 2019-12-13 00:08 | disposition home or self-care (01) ==
LOC: EC 21:36
DX: G89.29 Other chronic pain (principal); M54.5 Low back pain; I25.119 Atherosclerotic heart disease of native coronary artery with unspecified angina pectoris; E11.9 Type 2 diabetes mellitus without complications; I10 Essential (primary) hypertension; E78.5 Hyperlipidemia, unspecified; I25.2 Old myocardial infarction; G47.30 Sleep apnea, unspecified; G47.33 Obstructive sleep apnea (adult) (pediatric); E66.9 Obesity, unspecified; Z68.41 Body mass index [BMI] 40.0-44.9, adult; Z79.02 Long term (current) use of antithrombotics/antiplatelets; Z79.4 Long term (current) use of insulin; Z79.899 Other long term (current) drug therapy; Z88.1 Allergy status to other antibiotic agents; Z88.5 Allergy status to narcotic agent; Z88.8 Allergy status to other drugs, medicaments and biological substances; Z99.89 Dependence on other enabling machines and devices; W01.0XXA Fall on same level from slipping, tripping and stumbling without subsequent striking against object, initial encounter
CPT/HCPCS: 72100; 99283; 96372 ×2; J1170

== ENCOUNTER 2019-12-31 16:21 | Emergency (ER) | payer OTHER ==
--- NOTE | 2019-12-31 17:56 | CT ---
EXAMINATION TYPE: CT thor lumbar spine wo con DATE OF EXAM: 12/31/2019 COMPARISON: 10/12/2019 HISTORY: pain following fall, 5 days post lumbar sx CT DLP: 3211.5 mGycm Automated exposure control for dose reduction was used. Images were obtained from the level of T1-S2 vertebra without contrast. The thoracic and lumbar vertebra have normal alignment. There is disc prosthesis at L3-4. There is mi ld disc space narrowing from L3 to S1. There is posterior fusion surgery from L3 to S1. There is neur al stimulator implant in the lower thoracic spine at T11 and T10 and T9 level. There is no thoracic p araspinal mass. The posterior elements are intact. I see no bony destructive process. There is leslie ctomy defect at L5 level. The sacroiliac joints are intact. IMPRESSION: Mild spondylotic changes as above. No fracture seen. There is no evidence of thoracic or lumbar compr ession fracture. Previous surgery in the lower lumbar spine. Thoracic and lumbar spine appear unchang ed compared to old CT scans of 10/12/2019 and 07/24/2019.
[2019-12-31] MEDS: SODIUM CHLORIDE 0.9% 500 ML 500 ML IV SCH (18:01)
--- NOTE | 2019-12-31 18:05 | XR ---
EXAMINATION TYPE: XR chest 2V DATE OF EXAM: 12/31/2019 COMPARISON: 10/15/2019 HISTORY: Fever TECHNIQUE: FINDINGS: Heart and mediastinum are normal. Lungs are clear. Diaphragm is normal. Bony thorax is inta ct. There is neural stimulator in the lower thoracic spine. IMPRESSION: Normal chest. No change.
--- NOTE | 2019-12-31 18:44 | ED ---
General Adult HPI - General Chief complaint: Back Pain/Injury Stated complaint: Fall, hip injury, spin surgery monday Time Seen by Provider: 12/31/19 16:46 Source: patient, RN notes reviewed Mode of arrival: ambulatory Limitations: no limitations - History of Present Illness Initial comments: 54-year-old male well known to this emergency department with a complicated past medical history presents to the emergency department for back pain. Patient sta trindiad he had a laminectomy and spinal cord stimulator placed 5 days ago. Patient states today he was letting his dog out when he slipped on his deck and fell on his back. Patient reports he has had back pain and left hip pain since that time. Patient denies any bladder or bowel changes, numbness or tingling in the lower extremities, able to ambulating, weakness of the lower extremities. He does report that he had a fever yesterday of 100.0. He states that he has an appointment with his doctor in the next week. Patient states he knows he should have conduct waited for a [facility] as this is where his surgery was performed but did not have a ride.Patient has no other complaints at this time including shortness of breath, chest pain, abdominal pain, nausea or vomiting, headache, or visual changes. - Related Data Home Medications Medication Instructions Recorded Confirmed Omeprazole [PriLOSEC] 20 mg PO DAILY 12/11/17 10/12/19 Carvedilol [Coreg] 12.5 mg PO BID 07/22/19 10/12/19 glipiZIDE XL [Glucotrol XL] 5 mg PO DAILY 07/22/19 10/12/19 Atorvastatin [Lipitor] 20 mg PO DAILY 08/26/19 10/12/19 Insulin Glargine,Hum.rec.anlog 20 unit SQ HS 08/26/19 10/12/19 [Basaglar Kwikpen U-100] Lisinopril [Zestril] 40 mg PO DAILY 08/26/19 10/12/19 Diclofenac Sodium [Voltaren] 75 mg PO BID PRN 09/01/19 10/12/19 Diltiazem Cd [Cardizem CD] 300 mg PO DAILY 09/01/19 10/12/19 Gabapentin [Neurontin] 300 mg PO BID 10/12/19 10/12/19 oxyCODONE-APAP 10-325MG [Percocet 1 tab PO TID PRN 10/12/19 10/12/19 10-325 mg] Previous Rx's Medication Instructions Recorded Aspirin 325 mg PO DAILY 30 Days #30 tab 09/02/19 Albuterol Inhaler [Ventolin Hfa 2 puff INHALATION RT-QID 30 Days 10/17/19 Inhaler] #1 puff Albuterol Inhaler [Ventolin Hfa 2 puff INHALATION RT-QID PRN puff 10/17/19 Inhaler] Budesonide-Formot 160-4.5 Mcg 2 puff INHALATION RT-BID 30 Days 10/17/19 [Symbicort 160-4.5 Mcg Inhaler] #1 puff Cefuroxime Axetil [Ceftin] 500 mg PO BID 7 Days #14 tab 10/17/19 guaiFENesin [Mucinex] 1,200 mg PO Q12HR 6 Days #12 10/17/19 tablet.er metroNIDAZOLE [Flagyl] 500 mg PO TID 7 Days #21 tab 10/17/19 predniSONE 10 mg PO DIRECTED #30 tab 10/17/19 Allergies Allergy/AdvReac Type Severity Reaction Status Date / Time doxycycline Allergy Swelling Verified 12/31/19 16:40 ketorolac tromethamine Allergy Rash/Hives Verified 12/31/19 16:40 [From Toradol] morphine Allergy Rash/Hives Verified 12/31/19 16:40 metoclopramide HCl AdvReac Dystonic Verified 12/31/19 16:40 [From Reglan] Reaction prochlorperazine edisylate AdvReac Dystonic Verified 12/31/19 16:40 [From Compazine] Reaction prochlorperazine maleate AdvReac Dystonic Verified 12/31/19 16:40 [From Compazine] Reaction Review of Systems ROS Statement: Those systems with pertinent positive or pertinent negative responses have been documented in the HPI. ROS Other: All systems not noted in ROS Statement are negative. Past Medical History Past Medical History: Asthma, Chest Pain / Angina, Diabetes Mellitus, GERD/Reflux, Hyperlipidemia, Hypertension, Myocardial Infarction ([place]), Mitral Valve Prolapse (MVP), Pulmonary Embolus (PE), Sleep Apnea/CPAP/BIPAP Additional Past Medical History / Comment(s): Obesity, chronic asthmatic bronchitis, previous history of pulmonary embolism, objective sleep apnea, diabetes mellitus, hypertension, hyperlipidemia, previous history of myocardial infarction with underlying coronary artery disease, renal cysts, chronic back pain secondary to herniated lumbar disc disease with symptoms of sciatica, history of right lower extremity fracture at the age of 13, history of C. diff colitis approximately 4 years ago, history of bleeding peptic ulcer, nephrolithiasis, previous history of UTI and secondary sepsis. Last Myocardial Infarction Date:: 2011 History of Any Multi-Drug Resistant Organisms: MRSA Date of last positivie culture/infection: 2016 MDRO Source:: left axilla Past Surgical History: Appendectomy, Back Surgery, Cholecystectomy, Heart Catheterization, Hernia Repair Additional Past Surgical History / Comment(s): 2007 back surgery with decompression fusion at [facility], 2011, 2016 cardiac cath, multiple ESWL/ureteral stents/ double J catheters, L inquinal hernia repair, PICC line for ABX for urosepsis-since removed., spinal stimulator and lumbar laminectomy 12/27 Past Anesthesia/Blood Transfusion Reactions: No Reported Reaction Past Psychological History: No Psychological Hx Reported Smoking Status: Never smoker Past Alcohol Use History: None Reported Past Drug Use History: None Reported - Past Family History Father Family Medical History: Chest Pain / Angina Additional Family Medical History / Comment(s): "lung problems" Mother Family Medical History: Cancer, Chest Pain / Angina, Congestive Heart Failure (CHF), Osteoarthritis (OA), Thyroid Disorder General Exam Limitations: no limitations General appearance: alert, in no apparent distress Head exam: Present: atraumatic, normocephalic, normal inspection Eye exam: Present: normal appearance, PERRL, EOMI. Absent: scleral icterus, conjunctival injection, periorbital swelling ENT exam: Present: normal exam, mucous membranes moist Neck exam: Present: normal inspection, full ROM. Absent: tenderness, meningismus, lymphadenopathy Respiratory exam: Present: normal lung sounds bilaterally. Absent: respiratory distress, wheezes, rales, rhonchi, stridor Cardiovascular Exam: Present: regular rate, normal rhythm, normal heart sounds. Absent: systolic murmur, diastolic murmur, rubs, gallop, clicks GI/Abdominal exam: Present: soft, normal bowel sounds. Absent: distended, tend erness, guarding, rebound, rigid Extremities exam: Present: normal capillary refill (Capillary refill less than 2 seconds, DP pulse 2+ in lower extremities bilaterally), other (Sensation intact in lower extremities. Strength 5 out of 5 in lower extremities bilaterally) Back exam: Present: vertebral tenderness (Mild thoracolumbar spine tenderness. Surgical incisions with lucia appear healing and noninfectious. There is no erythema or drainage.). Absent: CVA tenderness (R), CVA tenderness (L) Neurological exam: Present: alert Course Vital Signs 12/31/19 12/31/19 16:34 18:59 Temperature 98.6 F Pulse Rate 120 H 101 H Respiratory 20 18 Rate Blood Pressure 155/97 145/92 O2 Sat by Pulse 97 100 Oximetry Medical Decision Making - Medical Decision Making Patient initially presents tachycardic. Patient had laminectomy 5 days ago at [facility] by Dr Fields. Unsure if he had a fusion at that time. Patient here because he had a fever yesterday of 100.0 and then today fell against the stair on his back and has had significantly increased pain. Denies any neurologic deficits in the legs such as weakness or loss of sensation. Denies bladder or bowel changes. CBC is unremarkable. There is no evidence of leukocytosis. Patient is afebrile here, antibiotics were held. Blood culture pending. As patient will be transferred to another facility we will let his surgeon decide on course of antibiotic therapy. CMP does show hyperglycemia of 621. Patient does have a history of insulin-dependent diabetes. Anion gap of 15 without ketones in the urine. Lactic acid also elevated at 2.7, likely secondary to dehydration, patient was given fluids. CT thoracic or lumbar spine showed mild spondylitic changes without fracture seen. No evidence of thoracic or lumbar compression fracture. Thoracic and lumbar spine appear unchanged compared to old CT scans. X-ray of the left hip and pelvis also negative. Given fall postop 5 days as well as possible fever patient will be transferred to [facility] where he had his surgery. - Lab Data Result diagrams: 12/31/19 18:46 12/31/19 18:46 Lab Results 12/31/19 12/31/19 12/31/19 Range/Units 18:46 18:46 18:46 WBC 7.1 (3.8-10.6) k/uL RBC 4.54 (4.30-5.90) m/uL Hgb 12.9 L (13.0-17.5) gm/dL Hct 39.7 (39.0-53.0) % MCV 87.5 (80.0-100.0) fL MCH 28.4 (25.0-35.0) pg MCHC 32.4 (31.0-37.0) g/dL RDW 13.7 (11.5-15.5) % Plt Count 286 (150-450) k/uL Neutrophils % 66 % Lymphocytes % 21 % Monocytes % 6 % Eosinophils % 5 % Basophils % 1 % Neutrophils # 4.7 (1.3-7.7) k/uL Lymphocytes # 1.5 (1.0-4.8) k/uL Monocytes # 0.4 (0-1.0) k/uL Eosinophils # 0.4 (0-0.7) k/uL Basophils # 0.0 (0-0.2) k/uL PT <9.2 (9.0-12.0) sec INR 0.9 (<1.2) APTT 19.3 L (22.0-30.0) sec Sodium 130 L (137-145) mmol/L Potassium 4.8 (3.5-5.1) mmol/L Chloride 95 L (98-107) mmol/L Carbon Dioxide 20 L (22-30) mmol/L Anion Gap 15 mmol/L BUN 20 (9-20) mg/dL Creatinine 0.56 L (0.66-1.25) mg/dL Est GFR (CKD-EPI)AfAm >90 (>60 ml/min/1.73 sqM) Est GFR (CKD-EPI)NonAf >90 (>60 ml/min/1.73 sqM) Glucose 621 H* (74-99) mg/dL Plasma Lactic Acid Edd (0.7-2.0) mmol/L Calcium 9.8 (8.4-10.2) mg/dL Total Bilirubin 0.5 (0.2-1.3) mg/dL AST 44 (17-59) U/L ALT 125 H (4-49) U/L Alkaline Phosphatase 222 H (38-126) U/L Total Protein 6.9 (6.3-8.2) g/dL Albumin 4.1 (3.5-5.0) g/dL Urine Color Urine Appearance (Clear) Urine pH (5.0-8.0) Ur Specific [place] (1.001-1.035) Urine Protein (Negative) Urine Glucose (UA) (Negative) Urine Ketones (Negative) Urine Blood (Negative) Urine Nitrite (Negative) Urine Bilirubin (Negative) Urine Urobilinogen (<2.0) mg/dL Ur Leukocyte Esterase (Negative) 12/31/19 12/31/19 Range/Units 18:46 18:50 WBC (3.8-10.6) k/uL RBC (4.30-5.90) m/uL Hgb (13.0-17.5) gm/dL Hct (39.0-53.0) % MCV (80.0-100.0) fL MCH (25.0-35.0) pg MCHC (31.0-37.0) g/dL RDW (11.5-15.5) % Plt Count (150-450) k/uL Neutrophils % % Lymphocytes % % Monocytes % % Eosinophils % % Basophils % % Neutrophils # (1.3-7.7) k/uL Lymphocytes # (1.0-4.8) k/uL Monocytes # (0-1.0) k/uL Eosinophils # (0-0.7) k/uL Basophils # (0-0.2) k/uL PT (9.0-12.0) sec INR (<1.2) APTT (22.0-30.0) sec Sodium (137-145) mmol/L Potassium (3.5-5.1) mmol/L Chloride (98-107) mmol/L Carbon Dioxide (22-30) mmol/L Anion Gap mmol/L BUN (9-20) mg/dL Creatinine (0.66-1.25) mg/dL Est GFR (CKD-EPI)AfAm (>60 ml/min/1.73 sqM) Est GFR (CKD-EPI)NonAf (>60 ml/min/1.73 sqM) Glucose (74-99) mg/dL Plasma Lactic Acid Edd 2.7 H* (0.7-2.0) mmol/L Calcium (8.4-10.2) mg/dL Total Bilirubin (0.2-1.3) mg/dL AST (17-59) U/L ALT (4-49) U/L Alkaline Phosphatase (38-126) U/L Total Protein (6.3-8.2) g/dL Albumin (3.5-5.0) g/dL Urine Color Light Yellow Urine Appearance Clear (Clear) Urine pH 5.0 (5.0-8.0) Ur Specific [place] 1.028 (1.001-1.035) Urine Protein Negative (Negative) Urine Glucose (UA) 4+ H (Negative) Urine Ketones Negative (Negative) Urine Blood Negative (Negative) Urine Nitrite Negative (Negative) Urine Bilirubin Negative (Negative) Urine Urobilinogen <2.0 (<2.0) mg/dL Ur Leukocyte Esterase Negative (Negative) Disposition Clinical Impression: Back pain, Hyperglycemia, Post-op pain Disposition: OTHER INSTITUTION NOT DEFINED Condition: Fair Is patient prescribed a controlled substance at d/c from ED?: No Referrals: Trav Muniz MD [Primary Care Provider] - 1-2 days Time of Disposition: 20:35 - Out of Hospital Transfer - Req. Specs Out of Hospital Transfer - Requested Specifics: Other Emergency Center ([facility])
[2019-12-31 19:00] VITALS: RESP 18
[2019-12-31 19:00] LABS: Appearance,Urine Clear (Clear); Bilirubin,Urine Negative (Negative); Blood,Urine Negative (Negative); Color,Urine Light Yellow; Glucose,Urine (UA) 4+ (Negative); Ketones,Urine Negative (Negative); Leukocyte Esterase,Urine Negative (Negative); Nitrite,Urine Negative (Negative); Protein,Urine Negative (Negative); Specific Gravity,Urine 1.028 (1.001-1.035); Urobilinogen,Urine <2.0 mg/dL (<2.0)
--- NOTE | 2019-12-31 19:01 | XR ---
EXAMINATION TYPE: XR Hip LT and AP Pelvis DATE OF EXAM: 12/31/2019 COMPARISON: NONE HISTORY: Left hip pain TECHNIQUE: 3 views FINDINGS: The pelvic ring is intact. The sacroiliac joints appear normal. Proximal left femur and hip joint appear intact. Hip joint space is fairly normal. IMPRESSION: No acute abnormality of the pelvis and left hip. No fracture.
[2019-12-31 19:02] LABS: Basophils % (A) 1 %; Eosinophils # (A) 0.4 k/uL (0-0.7); Eosinophils % (A) 5 %; HCT 39.7 % (39.0-53.0); HGB 12.9 gm/dL (13.0-17.5); Lymphocytes # (A) 1.5 k/uL (1.0-4.8); Lymphocytes % (A) 21 %; MCH 28.4 pg (25.0-35.0); MCHC 32.4 g/dL (31.0-37.0); MCV 87.5 fL (80.0-100.0); Mean Platelet Volume 7.7; Monocytes # (A) 0.4 k/uL (0-1.0); Monocytes % (A) 6 %; Neutrophils # (A) 4.7 k/uL (1.3-7.7); Neutrophils % (A) 66 %; Platelet Count 286 k/uL (150-450); RBC 4.54 m/uL (4.30-5.90); RDW 13.7 % (11.5-15.5); WBC 7.1 k/uL (3.8-10.6)
[2019-12-31 19:09] LABS: African American GFR (CKD) >90 (>60 ml/min/1.73 sqM); Albumin 4.1 g/dL (3.5-5.0); Anion Gap 15 mmol/L; Blood Urea Nitrogen 20 mg/dL (9-20); Calcium 9.8 mg/dL (8.4-10.2); Carbon Dioxide 20 mmol/L (22-30); Chloride 95 mmol/L (98-107); Non-African American GFR(CKD) >90 (>60 ml/min/1.73 sqM); Sodium 130 mmol/L (137-145); Total Bilirubin 0.5 mg/dL (0.2-1.3); Total Protein 6.9 g/dL (6.3-8.2)
[2019-12-31 19:36] LABS: ALT 125 U/L (4-49); AST 44 U/L (17-59); Alkaline Phosphatase 222 U/L (38-126); Potassium 4.8 mmol/L (3.5-5.1)
[2019-12-31] MEDS ORDERED: HYDROmorphone 0.5 MG/0.5 ML SYRINGE IVP STA (19:37)
[2019-12-31 19:48] LABS: INR 0.9 (<1.2); Partial Thromboplastin Time 19.3 sec (22.0-30.0); Prothrombin Time <9.2 sec (9.0-12.0)
[2019-12-31 19:59] LABS: Glucose 621 mg/dL (74-99)
[2019-12-31] MEDS ORDERED: SODIUM CHLORIDE 0.9% 1,000 ML IV STA (20:00)
[2019-12-31] MEDS ORDERED: INSULIN REGULAR 100 UNIT/ML VIAL IV STA (20:00)
[2019-12-31 20:52] LABS: Glucose,Whole Blood 377 mg/dL (75-99)
[2019-12-31 20:56] VITALS: BP 160/100; PULSE 110; TEMP 97.6
== END 2019-12-31 22:04 | disposition other institution (70) ==
LOC: EC 16:21
DX: M54.5 Low back pain (principal); G89.18 Other acute postprocedural pain; M25.552 Pain in left hip; E11.65 Type 2 diabetes mellitus with hyperglycemia; K21.9 Gastro-esophageal reflux disease without esophagitis; E78.5 Hyperlipidemia, unspecified; I10 Essential (primary) hypertension; I25.2 Old myocardial infarction; G47.30 Sleep apnea, unspecified; I25.110 Atherosclerotic heart disease of native coronary artery with unstable angina pectoris; I34.1 Nonrheumatic mitral (valve) prolapse; Z88.1 Allergy status to other antibiotic agents; Z88.6 Allergy status to analgesic agent; Z88.5 Allergy status to narcotic agent; Z86.14 Personal history of Methicillin resistant Staphylococcus aureus infection; Z79.899 Other long term (current) drug therapy; Z79.4 Long term (current) use of insulin; Z88.8 Allergy status to other drugs, medicaments and biological substances; Z95.5 Presence of coronary angioplasty implant and graft; Z98.1 Arthrodesis status; Z99.89 Dependence on other enabling machines and devices; W01.198A Fall on same level from slipping, tripping and stumbling with subsequent striking against other object, initial encounter; Y92.89 Other specified places as the place of occurrence of the external cause
CPT/HCPCS: 99285; 96374; 96361 ×2; 36415; 80053; 83605; 85025; 85610; 85730; 81003; 87040; 73502; 71046; 72128; 72131; J1170

== ENCOUNTER 2020-02-09 16:15 | Emergency (ER) | payer OTHER ==
[2020-02-09 16:20] VITALS: BP 156/89; PULSE 105; RESP 20; TEMP 98
[2020-02-09] MEDS ORDERED: HYDROmorphone 1 MG/ML 1 ML SYRINGE IM STA (16:29)
--- NOTE | 2020-02-09 16:35 | ED ---
General Adult HPI - General Chief complaint: Extremity Injury, Lower Stated complaint: Knee popped out of place Time Seen by Provider: 02/09/20 16:22 Source: patient, RN notes reviewed Mode of arrival: wheelchair Limitations: no limitations - History of Present Illness Initial comments: Patient is a 54-year-old male who presents emergency department today for evaluation for concern for left hip and back pain after he fell. He reports that he twisted his right knee and he fell. He heard a pop. Patient states he has pain with ambulation or range of motion of the right knee and left hip. Patient reports that he had spinal stimulator placed on the lower back months ago. Patient denies any head or neck injury. Denies any other significant complaints of pain. He does take Percocet chronically home. - Related Data Home Medications Medication Instructions Recorded Confirmed Omeprazole [PriLOSEC] 20 mg PO DAILY 12/11/17 10/12/19 Carvedilol [Coreg] 12.5 mg PO BID 07/22/19 10/12/19 glipiZIDE XL [Glucotrol XL] 5 mg PO DAILY 07/22/19 10/12/19 Atorvastatin [Lipitor] 20 mg PO DAILY 08/26/19 10/12/19 Insulin Glargine,Hum.rec.anlog 20 unit SQ HS 08/26/19 10/12/19 [Basaglrodrigo Díaz U-100] lisinopriL [Zestril] 40 mg PO DAILY 08/26/19 10/12/19 Diclofenac Sodium [Voltaren] 75 mg PO BID PRN 09/01/19 10/12/19 Diltiazem Cd [Cardizem CD] 300 mg PO DAILY 09/01/19 10/12/19 Gabapentin [Neurontin] 300 mg PO BID 10/12/19 10/12/19 oxyCODONE-APAP 10-325MG [Percocet 1 tab PO TID PRN 10/12/19 10/12/19 10-325 mg] Previous Rx's Medication Instructions Recorded Aspirin 325 mg PO DAILY 30 Days #30 tab 09/02/19 Albuterol Inhaler [Ventolin Hfa 2 puff INHALATION RT-QID 30 Days 10/17/19 Inhaler] #1 puff Albuterol Inhaler [Ventolin Hfa 2 puff INHALATION RT-QID PRN puff 10/17/19 Inhaler] Budesonide-Formot 160-4.5 Mcg 2 puff INHALATION RT-BID 30 Days 10/17/19 [Symbicort 160-4.5 Mcg Inhaler] #1 puff Cefuroxime Axetil [Ceftin] 500 mg PO BID 7 Days #14 tab 10/17/19 guaiFENesin [Mucinex] 1,200 mg PO Q12HR 6 Days #12 10/17/19 tablet.er metroNIDAZOLE [Flagyl] 500 mg PO TID 7 Days #21 tab 10/17/19 predniSONE 10 mg PO DIRECTED #30 tab 10/17/19 Allergies Allergy/AdvReac Type Severity Reaction Status Date / Time doxycycline Allergy Swelling Verified 02/09/20 16:20 ketorolac tromethamine Allergy Rash/Hives Verified 02/09/20 16:20 [From Toradol] morphine Allergy Rash/Hives Verified 02/09/20 16:20 metoclopramide HCl AdvReac Dystonic Verified 02/09/20 16:20 [From Reglan] Reaction prochlorperazine edisylate AdvReac Dystonic Verified 02/09/20 16:20 [From Compazine] Reaction prochlorperazine maleate AdvReac Dystonic Verified 02/09/20 16:20 [From Compazine] Reaction Review of Systems ROS Statement: Those systems with pertinent positive or pertinent negative responses have been documented in the HPI. ROS Other: All systems not noted in ROS Statement are negative. Past Medical History Past Medical History: Asthma, Chest Pain / Angina, Diabetes Mellitus, GERD/Reflux, Hyperlipidemia, Hypertension, Myocardial Infarction ([place]), Mitral Valve Prolapse (MVP), Pulmonary Embolus (PE), Sleep Apnea/CPAP/BIPAP Additional Past Medical History / Comment(s): Obesity, chronic asthmatic bronchitis, previous history of pulmonary embolism, objective sleep apnea, diabetes mellitus, hypertension, hyperlipidemia, previous history of myocardial infarction with underlying coronary artery disease, renal cysts, chronic back pain secondary to herniated lumbar disc disease with symptoms of sciatica, history of right lower extremity fracture at the age of 13, history of C. diff colitis approximately 4 years ago, history of bleeding peptic ulcer, nephrolithiasis, previous history of UTI and secondary sepsis. Last Myocardial Infarction Date:: 2011 History of Any Multi-Drug Resistant Organisms: MRSA Date of last positivie culture/infection: 2016 MDRO Source:: left axilla Past Surgical History: Appendectomy, Back Surgery, Cholecystectomy, Heart Catheterization, Hernia Repair Additional Past Surgical History / Comment(s): 2007 back surgery with decompression fusion at [facility], 2011, 2016 cardiac cath, multiple ESWL/ureteral stents/ double J catheters, L inquinal hernia repair, PICC line for ABX for urosepsis-since removed., spinal stimulator and lumbar laminectomy 12/27 Past Anesthesia/Blood Transfusion Reactions: No Reported Reaction Past Psychological History: No Psychological Hx Reported Smoking Status: Never smoker Past Alcohol Use History: None Reported Past Drug Use History: None Reported - Past Family History Father Family Medical History: Chest Pain / Angina Additional Family Medical History / Comment(s): "lung problems" Mother Family Medical History: Cancer, Chest Pain / Angina, Congestive Heart Failure (CHF), Osteoarthritis (OA), Thyroid Disorder General Exam - General Exam Comments Initial Comments: 4-year-old male. Patient is in moderate discomfort. Limitations: no limitations General appearance: alert, in no apparent distress Head exam: Present: atraumatic, normocephalic, normal inspection Eye exam: Present: normal appearance, PERRL, EOMI. Absent: scleral icterus, conjunctival injection, periorbital swelling ENT exam: Present: normal exam, mucous membranes moist Neck exam: Present: normal inspection. Absent: tenderness, meningismus, lymphadenopathy Respiratory exam: Present: normal lung sounds bilaterally. Absent: respiratory distress, wheezes, rales, rhonchi, stridor Cardiovascular Exam: Present: regular rate GI/Abdominal exam: Present: soft Extremities exam: Present: normal inspection, full ROM Right Upper Leg exam: Present: normal inspection, full ROM Knee exam: Present: normal inspection, tenderness (Patient has tenderness to palpation over the medial and lateral meniscus patella. No significant bruising or swelling noted at this time.) Lower Leg exam: Present: normal inspection, full ROM Ankle exam: Present: normal inspection, full ROM Neurovascular tendon exam: Present: no vascular compromise Back exam: Present: normal inspection, full ROM Neurological exam: Present: alert, oriented X3, CN II-XII intact Psychiatric exam: Present: normal affect, normal mood Skin exam: Present: warm, dry, intact, normal color. Absent: rash Course Vital Signs 02/09/20 16:17 Temperature 98.0 F Pulse Rate 105 H Respiratory 20 Rate Blood Pressure 156/89 O2 Sat by Pulse 96 Oximetry Medical Decision Making - Medical Decision Making Patient is a 54-year-old male presents today with back, left hip pain after fall as well as right knee pain after twisting injury today. Patient has a history of chronic back pain has multiple back surgeries and spinal stimulators back. He has normal sensation to lower extremities at this time. Full range of motion of the legs and toes. Patient x-ray of the lower spine shows no acute changes. Hip x-ray shows no evidence of fracture and right knee x-ray shows no fracture. Patient does complain mainly of right knee pain. Patient be given Bonilla wrap and knee immobilizer. Advise follow-up with psych specialist. - Radiology Data Radiology results: report reviewed Postsurgical changes. No, getting process seen. No change compared old exam. No fracture. Hip x-ray shows minimal spurring. No fracture seen. No adverse changes compared old exam. Negative for any exam. No fracture. Disposition Clinical Impression: Knee sprain, Fall Disposition: HOME SELF-CARE Condition: Good Instructions (If sedation given, give patient instructions): Knee Sprain (ED) Additional Instructions: Follow-up with orthopedic. Remain in the knee immobilizer. Rest ice and elevate the knee. Take at home pain medication. Is patient prescribed a controlled substance at d/c from ED?: No Referrals: Trav Muniz MD [Primary Care Provider] - 1-2 days Paul Short DO [Doctor of Osteopathic Medicine] - 1-2 days Time of Disposition: 18:09
--- NOTE | 2020-02-09 17:24 | XR ---
EXAMINATION TYPE: XR Hip LT and AP Pelvis DATE OF EXAM: 02/09/2020 COMPARISON: 12/31/2019 HISTORY: Fall. Hip pain TECHNIQUE: 3 views FINDINGS: The pelvic ring is intact. Proximal femurs are intact. There is acetabular mild spurring. T here is no evidence of a fracture. There is multilevel lumbar spine fusion surgery. There is no evide nce of hip dysplasia. IMPRESSION: Minimal spurring. No fracture seen. No adverse change compared to old exam.
--- NOTE | 2020-02-09 17:26 | XR ---
EXAMINATION TYPE: XR lumbar spine 2 or 3V DATE OF EXAM: 02/09/2020 COMPARISON: 12/12/2019 HISTORY: Pain TECHNIQUE: 3 views FINDINGS: Lumbar vertebra have normal alignment. There is posterior fusion surgery from L3 to S1. The re is laminectomy defect at L4 and L5. There is disc prosthesis at L3-4. There is narrowing of L4-5 a nd L5-S1 disc spaces. There is no compression fracture. Sacroiliac joints appear intact. I see no foc al bone destruction. There is neural stimulator in the lower thoracic spine. IMPRESSION: Postsurgical changes. No complicating process seen. No change compared to old exam. No fr acture.
--- NOTE | 2020-02-09 17:27 | XR ---
EXAMINATION TYPE: XR knee complete RT DATE OF EXAM: 02/09/2020 COMPARISON: NONE HISTORY: Knee pain TECHNIQUE: 3 views FINDINGS: I see no fracture nor dislocation. Joint spaces are normal. There is no sign of joint effus ion. IMPRESSION: Negative right knee exam. No fracture seen.
[2020-02-09] MEDS ORDERED: traMADol 50 MG TAB PO STA (18:05)
[2020-02-09] MEDS ORDERED: IBUPROFEN 600 MG TAB PO STA (18:05)
== END 2020-02-09 18:14 | disposition home or self-care (01) ==
LOC: EC 16:15
DX: S83.91XA Sprain of unspecified site of right knee, initial encounter (principal); M25.552 Pain in left hip; G89.29 Other chronic pain; M54.5 Low back pain; I25.2 Old myocardial infarction; E11.9 Type 2 diabetes mellitus without complications; K21.9 Gastro-esophageal reflux disease without esophagitis; E78.5 Hyperlipidemia, unspecified; I10 Essential (primary) hypertension; G47.39 Other sleep apnea; I25.119 Atherosclerotic heart disease of native coronary artery with unspecified angina pectoris; Z79.899 Other long term (current) drug therapy; Z79.4 Long term (current) use of insulin; Z95.5 Presence of coronary angioplasty implant and graft; Z96.82 Presence of neurostimulator; Z86.711 Personal history of pulmonary embolism; Z99.89 Dependence on other enabling machines and devices; X50.1XXA Overexertion from prolonged static or awkward postures, initial encounter; Y93.01 Activity, walking, marching and hiking; Y92.89 Other specified places as the place of occurrence of the external cause
CPT/HCPCS: 72100; 73502; 73562; 96372; 99283; L1830; J1170

== ENCOUNTER 2020-02-16 16:02 | Inpatient (IN) | payer OTHER ==
[2020-02-16] MEDS ORDERED: SODIUM CHLORIDE 0.9% 1,000 ML IV STA (16:19)
[2020-02-16] MEDS ORDERED: HYDROmorphone 1 MG/ML 1 ML SYRINGE IVP STA ×2 (16:19→18:02)
--- NOTE | 2020-02-16 16:21 | ED ---
Chest Pain HPI - General Chief Complaint: Chest Pain Stated Complaint: Chest Pain Time Seen by Provider: 02/16/20 16:13 Source: patient, EMS, RN notes reviewed, old records reviewed Mode of arrival: EMS Limitations: no limitations - History of Present Illness Initial Comments: This is a 51-year-old male DF for evaluation patient Dese for evaluation regards to chest pain patient on her facility for chest pain back pain and multiple different issues of pain no real psychiatric history. Patient states the pain started today while he was doing a walk walking to the store walking home the loculated severely short of breath with severe chest pain chest pain his back and between his shoulder blades. No fevers cough or congestion MD Complaint: chest pain -: hour(s) Onset: during rest, during exertion Pain Location: substernal, left chest Pain Radiation: none Severity: mild Severity scale (1-10): 3 Quality: aching Consistency: constant Improves With: nothing Worsens With: nothing Other Symptoms: palpitations Treatments Prior to Arrival: aspirin, nitroglycerin - Related Data Home Medications Medication Instructions Recorded Confirmed Omeprazole [PriLOSEC] 20 mg PO DAILY 12/11/17 10/12/19 Carvedilol [Coreg] 12.5 mg PO BID 07/22/19 10/12/19 glipiZIDE XL [Glucotrol XL] 5 mg PO DAILY 07/22/19 10/12/19 Atorvastatin [Lipitor] 20 mg PO DAILY 08/26/19 10/12/19 Insulin Glargine,Hum.rec.anlog 20 unit SQ HS 08/26/19 10/12/19 [Basaglar Kwikpen U-100] lisinopriL [Zestril] 40 mg PO DAILY 08/26/19 10/12/19 Diclofenac Sodium [Voltaren] 75 mg PO BID PRN 09/01/19 10/12/19 Diltiazem Cd [Cardizem CD] 300 mg PO DAILY 09/01/19 10/12/19 Gabapentin [Neurontin] 300 mg PO BID 10/12/19 10/12/19 oxyCODONE-APAP 10-325MG [Percocet 1 tab PO TID PRN 10/12/19 10/12/19 10-325 mg] Previous Rx's Medication Instructions Recorded Aspirin 325 mg PO DAILY 30 Days #30 tab 09/02/19 Albuterol Inhaler [Ventolin Hfa 2 puff INHALATION RT-QID 30 Days 10/17/19 Inhaler] #1 puff Albuterol Inhaler [Ventolin Hfa 2 puff INHALATION RT-QID PRN puff 10/17/19 Inhaler] Budesonide-Formot 160-4.5 Mcg 2 puff INHALATION RT-BID 30 Days 10/17/19 [Symbicort 160-4.5 Mcg Inhaler] #1 puff Cefuroxime Axetil [Ceftin] 500 mg PO BID 7 Days #14 tab 10/17/19 guaiFENesin [Mucinex] 1,200 mg PO Q12HR 6 Days #12 10/17/19 tablet.er metroNIDAZOLE [Flagyl] 500 mg PO TID 7 Days #21 tab 10/17/19 predniSONE 10 mg PO DIRECTED #30 tab 10/17/19 Allergies Allergy/AdvReac Type Severity Reaction Status Date / Time doxycycline Allergy Swelling Verified 02/09/20 16:20 ketorolac tromethamine Allergy Rash/Hives Verified 02/09/20 16:20 [From Toradol] morphine Allergy Rash/Hives Verified 02/09/20 16:20 metoclopramide HCl AdvReac Dystonic Verified 02/09/20 16:20 [From Reglan] Reaction prochlorperazine edisylate AdvReac Dystonic Verified 02/09/20 16:20 [From Compazine] Reaction prochlorperazine maleate AdvReac Dystonic Verified 02/09/20 16:20 [From Compazine] Reaction Review of Systems ROS Statement: Those systems with pertinent positive or pertinent negative responses have been documented in the HPI. ROS Other: All systems not noted in ROS Statement are negative. EKG Findings - EKG Comments: EKG Findings:: EKG sinus tachycardia 101. MD 158 QRS 110 QTc 505 Past Medical History Past Medical History: Asthma, Chest Pain / Angina, Diabetes Mellitus, GERD/Reflux, Hyperlipidemia, Hypertension, Myocardial Infarction ([place]), Mitral Valve Prolapse (MVP), Pulmonary Embolus (PE), Sleep Apnea/CPAP/BIPAP Additional Past Medical History / Comment(s): Obesity, chronic asthmatic bronchitis, previous history of pulmonary embolism, objective sleep apnea, diabetes mellitus, hypertension, hyperlipidemia, previous history of myocardial infarction with underlying coronary artery disease, renal cysts, chronic back pain secondary to herniated lumbar disc disease with symptoms of sciatica, hi story of right lower extremity fracture at the age of 13, history of C. diff colitis approximately 4 years ago, history of bleeding peptic ulcer, nephrolithiasis, previous history of UTI and secondary sepsis. Last Myocardial Infarction Date:: 2011 History of Any Multi-Drug Resistant Organisms: MRSA Date of last positivie culture/infection: 2015 MDRO Source:: left axilla Past Surgical History: Appendectomy, Back Surgery, Cholecystectomy, Heart Catheterization, Hernia Repair Additional Past Surgical History / Comment(s): 2007 back surgery with decompression fusion at [facility], 2011, 2016 cardiac cath, multiple ESWL/ureteral stents/ double J catheters, L inquinal hernia repair, PICC line for ABX for urosepsis-since removed., spinal stimulator and lumbar laminectomy 12/27 Past Anesthesia/Blood Transfusion Reactions: No Reported Reaction Past Psychological History: No Psychological Hx Reported Smoking Status: Never smoker Past Alcohol Use History: None Reported Past Drug Use History: None Reported - Past Family History Father Family Medical History: Chest Pain / Angina Additional Family Medical History / Comment(s): "lung problems" Mother Family Medical History: Cancer, Chest Pain / Angina, Congestive Heart Failure (CHF), Osteoarthritis (OA), Thyroid Disorder General Exam Limitations: no limitations General appearance: alert, in no apparent distress Head exam: Present: atraumatic, normocephalic, normal inspection Eye exam: Present: normal appearance, PERRL, EOMI. Absent: scleral icterus, conjunctival injection, periorbital swelling ENT exam: Present: normal exam, mucous membranes moist Neck exam: Present: normal inspection. Absent: tenderness, meningismus, lymphadenopathy Respiratory exam: Present: normal lung sounds bilaterally. Absent: respiratory distress, wheezes, rales, rhonchi, stridor Cardiovascular Exam: Present: regular rate, normal rhythm, normal heart sounds. Absent: systolic murmur, diastolic murmur, rubs, gallop, clicks GI/Abdominal exam: Present: soft, normal bowel sounds. Absent: distended, tenderness, guarding, rebound, rigid Extremities exam: Present: normal inspection, full ROM, normal capillary refill. Absent: tenderness, pedal edema, joint swelling, calf tenderness Back exam: Present: normal inspection Neurological exam: Present: alert, oriented X3, CN II-XII intact Psychiatric exam: Present: normal affect, normal mood Skin exam: Present: warm, dry, intact, normal color. Absent: rash Course Vital Signs 02/16/20 02/16/20 02/16/20 16:05 16:09 16:30 Temperature 98.8 F Pulse Rate 109 H 105 H Respiratory 18 17 Rate Blood Pressure 174/104 174/104 174/104 O2 Sat by Pulse 98 98 Oximetry 02/16/20 02/16/20 02/16/20 17:00 17:30 18:00 Temperature Pulse Rate 99 96 92 Respiratory 15 16 14 Rate Blood Pressure 165/105 160/95 179/110 O2 Sat by Pulse 99 97 97 Oximetry - Reevaluation(s) Reevaluation #1: 02/16/20 18:15 Medical records reviewed Reevaluation #2: 02/16/20 18:16 Patient has improved blood pressure and pain control Reevaluation #3: 02/16/20 18:16 Patient informed of results does not fill comfortable with discharge Chest Pain MDM - MDM 51 female DF for evaluation with chest pain patient is history of heart disease will admit for chest pain observation Disposition Clinical Impression: Chest pain, HTN (hypertension) Disposition: ADMITTED IP TO THIS HOSP Condition: Undetermined Is patient prescribed a controlled substance at d/c from ED?: No Referrals: Trav Muniz MD [Primary Care Provider] - 1-2 days
[2020-02-16 17:13] LABS: Basophils # (A) 0.1 k/uL (0-0.2); Basophils % (A) 1 %; Eosinophils # (A) 0.4 k/uL (0-0.7); Eosinophils % (A) 5 %; HGB 13.6 gm/dL (13.0-17.5); Lymphocytes # (A) 1.8 k/uL (1.0-4.8); Lymphocytes % (A) 24 %; MCH 27.4 pg (25.0-35.0); MCHC 32.5 g/dL (31.0-37.0); MCV 84.2 fL (80.0-100.0); Mean Platelet Volume 7.1; Monocytes # (A) 0.4 k/uL (0-1.0); Monocytes % (A) 5 %; Neutrophils # (A) 4.5 k/uL (1.3-7.7); Neutrophils % (A) 62 %; Platelet Count 239 k/uL (150-450); RBC 4.98 m/uL (4.30-5.90); RDW 13.7 % (11.5-15.5); WBC 7.3 k/uL (3.8-10.6)
--- NOTE | 2020-02-16 17:25 | XR ---
EXAMINATION TYPE: XR chest 2V DATE OF EXAM: 02/16/2020 COMPARISON: 12/31/2019 HISTORY: Chest pain. Cough TECHNIQUE: FINDINGS: Heart and mediastinum are normal. Lungs are clear. Costophrenic angles are clear. There is some mild pleural thickening along the lateral chest wall that could relate to lipomatosis. There is neural stimulator in the lower thoracic spine. There are chest leads. Bony thorax is intact. IMPRESSION: No active cardiopulmonary disease. No change.
[2020-02-16 17:29] LABS: ALT 40 U/L (4-49); AST 29 U/L (17-59); African American GFR (CKD) >90 (>60 ml/min/1.73 sqM); Albumin 4.3 g/dL (3.5-5.0); Alkaline Phosphatase 109 U/L (38-126); Anion Gap 10 mmol/L; Blood Urea Nitrogen 11 mg/dL (9-20); Calcium 9.5 mg/dL (8.4-10.2); Carbon Dioxide 22 mmol/L (22-30); Chloride 105 mmol/L (98-107); Glucose 141 mg/dL (74-99); Magnesium 1.8 mg/dL (1.6-2.3); Non-African American GFR(CKD) >90 (>60 ml/min/1.73 sqM); Potassium 4.3 mmol/L (3.5-5.1); Sodium 137 mmol/L (137-145); Total Bilirubin 0.7 mg/dL (0.2-1.3); Total Protein 7.1 g/dL (6.3-8.2)
[2020-02-16 17:32] LABS: INR 0.9 (<1.2); Prothrombin Time 9.5 sec (9.0-12.0)
[2020-02-16 17:37] LABS: Partial Thromboplastin Time 21.4 sec (22.0-30.0)
[2020-02-16] MEDS ORDERED: hydrALAZINE HCL 20 MG/ML 1 ML VIAL IVP STA (17:56)
[2020-02-16] MEDS ORDERED: NITROGLYCERIN SL TABS 0.4 MG TAB SUBLINGUAL PRN (18:14)
--- NOTE | 2020-02-16 18:53 | CT ---
EXAMINATION TYPE: CT angio chest DATE OF EXAM: 02/16/2020 COMPARISON: 10/12/2019 HISTORY: Chest pain with shortness of breath. CT DLP: 851.6 mGycm Automated exposure control for dose reduction was used. CONTRAST: Performed with IV Contrast, patient injected with 100 mL of Isovue 370. There are 3-D post processed images. The lungs are clear of consolidation. There is minimal subsegmental atelectasis at the lung bases. Th ere is no pericardial effusion. Heart size is fairly normal. There are no hilar masses. There is no m ediastinal adenopathy. Thoracic aorta is intact. There is no aneurysm or dissection. There is normal contrast opacification of the pulmonary arteries. There are no filling defects. There is 3.7 cm cortical cyst anterior right kidney. There is some fatty infiltration of the liver. IMPRESSION: No evidence of pulmonary embolism. Fatty infiltration of the liver. No significant change compared to old exam.
[2020-02-16] MEDS ORDERED: METOPROLOL TARTRATE 50 MG TAB PO SCH (21:00)
[2020-02-16] MEDS: HYDROmorphone 1 MG/ML 1 ML SYRINGE IVP PRN (22:38)
[2020-02-17] MEDS: HYDROmorphone 1 MG/ML 1 ML SYRINGE IVP PRN ×5 (03:24→22:20)
[2020-02-17] MEDS: PANTOPRAZOLE 40 MG TABLET PO SCH (06:10)
[2020-02-17 06:27] LABS: Glucose,Whole Blood 178 mg/dL (75-99)
[2020-02-17 06:38] LABS: Cholesterol 178 mg/dL (<200); HDL Cholesterol 40 mg/dL (40-60); LDL Cholesterol,Calculated 74 mg/dL (0-99); Triglycerides 321 mg/dL (<150)
[2020-02-17] MEDS ORDERED: DOBUTamine DRIP for NUC MED 500 MG in DEXTROSE/WATER 1 250ML.BAG IV ONE (08:10)
[2020-02-17] MEDS ORDERED: ASPIRIN 325 MG TAB PO SCH ×2 (09:00)
[2020-02-17] MEDS: ATORVASTATIN 20 MG TAB PO SCH (09:44)
[2020-02-17] MEDS: GABAPENTIN 300 MG CAP PO SCH ×2 (09:44→22:09)
[2020-02-17] MEDS: HEPARIN SODIUM,PORCINE 5,000 UNIT/ML 1 ML VIAL SQ SCH ×2 (09:44→22:09)
[2020-02-17] MEDS: ASPIRIN 81 MG PO SCH (09:44)
[2020-02-17] MEDS: lisinopriL 10 MG TAB PO SCH (09:44)
[2020-02-17] MEDS: glipiZIDE 5 MG TAB PO SCH ×2 (09:45→22:10)
[2020-02-17 12:01] LABS: Glucose,Whole Blood 149 mg/dL (75-99)
[2020-02-17] MEDS: carvediloL 12.5 MG TAB PO SCH ×2 (12:15→19:35)
[2020-02-17] MEDS: INSULIN DETEMIR (LEVEMIR) 100 UNIT/ML SYR SQ SCH ×2 (12:15→22:10)
[2020-02-17] MEDS: INSULIN ASPART (NovoLOG) 100 UNIT/ML VIAL SQ SCH ×6 (12:15→22:09)
--- NOTE | 2020-02-17 12:20 | P.CRDCN ---
History of Present Illness History of present illness: HISTORY OF PRESENTING ILLNESS This is a pleasant 54-year-old male past medical history significant for diabetes mellitus, hypertension, dyslipidemia, asthma, obstructive sleep apnea, morbid obesity and gastroesophageal reflux. He follows in the office with Dr. Arora. We have been asked to see in consultation for chest pain. States yesterday he had to walk approximately 1 mile to check on his car that is in the shock. After returning from the walk he started having chest pressure in the left precordial region associated with shortness of breath and nausea. He took 2 sublingual nitroglycerin and unfortunately started to have a headache so he lay down to rest. When he woke up he continued to have discomfort in his chest but instead of being a pressure was now sharp stabbing pain in the left precordial region that radiated straight through to his back. He continues to have chest discomfort this morning and has been receiving IV Dilaudid for relief. He underwent cardiac catheterization in 2016 that was negative for obstructive disease with normal coronary arteries. Most recent echocardiogram obtained in October 2019 revealed preserved LV systolic function with ejection fraction 55-60% with mild TR noted. DIAGNOSTICS EKG reveals sinus yachycardia. Chest xray negative for an acute cardiopulmonary process. CTA negative for pulmonary embolism with normal-appearing aorta. Laboratory reviewed, cardiac enzymes negative 3, LDL 74, HDL 40, CBC unremarkable, sodium 137, potassium 4.3, creatinine 0.6 and magnesium 1.8. Current cardiac medications include aspirin 325 mg daily, atorvastatin 20 mg daily, Correctol 0.5 mg 3 times a day and Ranexa prescribed by his primary care physician and he is unsure of the dose. REVIEW OF SYSTEMS At the time of my exam: CONSTITUTIONAL: Denies fever or chills. CARDIOVASCULAR: Denies chest pain, shortness of breath, orthopnea, PND or palpitations. RESPIRATORY: Denies cough. GASTROINTESTINAL: Denies abdominal pain, diarrhea, constipation, nausea or vomiting. MUSCULOSKELETAL: Denies myalgias. NEUROLOGIC: Denies numbness, tingling or weakness. ENDOCRINE: Denies fatigue, weight change, polydipsia or polyurina. GENITOURINARY: Denies burning, hematuria or urgency with micturation. HEMATOLOGIC: Denies history of anemia or bleeding. PHYSICAL EXAMINATION Blood pressure 155/103 heart rate 88 afebrile and maintaining oxygen saturation on room air. CONSTITUTIONAL: No apparent distress. HEENT: Head is normocephalic. Pupils are equal, round. Sclerae anicteric. Mucous membranes of the mouth are moist. No JVD. No carotid bruit. CHEST EXAMINATION: Lungs are clear to auscultation. No chest wall tenderness is noted on palpation or with deep breathing. HEART EXAMINATION: Regular rate and rhythm. S1, S2 heard. No murmurs, gallops or rub. ABDOMEN: Soft, nontender. Positive bowel sounds. EXTREMITIES: 2+ peripheral pulses, no lower extremity edema and no calf tenderness. NEUROLOGIC EXAMINATION: Patient is awake, alert and oriented x3. ASSESSMENT Chest pain, an acute coronary event has been ruled out. Recent cardiac catheterization revealing normal coronary arteries. Hypertension, uncontrolled Diabetes mellitus Dyslipidemia Asthma Morbid obesity, BMI 40 PLAN Initiate lisinopril 10 mg daily. Perform dobutamine stress echocardiogram to assess for stress-induced cardiac ischemia. If stress test is normal he is stable for discharge from a cardiac perspective. Given his normal catheterization 3 years ago Ranexa should be discontinued. Follow-up in the office with Dr. Arora upon discharge. Thank you kindly for this consultation. Nurse Practitioner note has been reviewed, I agree with a documented findings and plan of care. Patient was seen and examined. Past Medical History Past Medical History: Asthma, Chest Pain / Angina, Diabetes Mellitus, GERD/Reflux, Hyperlipidemia, Hypertension, Myocardial Infarction ([place]), Mitral Valve Prolapse (MVP), Pulmonary Embolus (PE), Sleep Apnea/CPAP/BIPAP Additional Past Medical History / Comment(s): Obesity, chronic asthmatic bronchitis, previous history of pulmonary embolism, objective sleep apnea, diabetes mellitus, hypertension, hyperlipidemia, previous history of myocardial infarction with underlying coronary artery disease, renal cysts, chronic back pain secondary to herniated lumbar disc disease with symptoms of sciatica, history of right lower extremity fracture at the age of 13, history of C. diff colitis approximately 4 years ago, history of bleeding peptic ulcer, nephrolithiasis, previous history of UTI and secondary sepsis. Last Myocardial Infarction Date:: 2011 History of Any Multi-Drug Resistant Organisms: MRSA Date of last positivie culture/infection: 2015 MDRO Source:: left axilla Past Surgical History: Appendectomy, Back Surgery, Cholecystectomy, Heart Catheterization, Hernia Repair Additional Past Surgical History / Comment(s): 2007 back surgery with decompression fusion at [facility], 2011, 2016 cardiac cath, multiple ESWL/ureteral stents/ double J catheters, L inquinal hernia repair, PICC line for ABX for urosepsis-since removed., spinal stimulator and lumbar laminectomy 12/27 Past Anesthesia/Blood Transfusion Reactions: No Reported Reaction Past Psychological History: No Psychological Hx Reported Smoking Status: Never smoker Past Alcohol Use History: None Reported Past Drug Use History: None Reported - Past Family History Father Family Medical History: Chest Pain / Angina Additional Family Medical History / Comment(s): "lung problems" Mother Family Medical History: Cancer, Chest Pain / Angina, Congestive Heart Failure (CHF), Osteoarthritis (OA), Thyroid Disorder Medications and Allergies Home Medications Medication Instructions Recorded Confirmed Type Omeprazole [PriLOSEC] 20 mg PO DAILY 12/11/17 02/16/20 History Carvedilol [Coreg] 12.5 mg PO BID 07/22/19 02/16/20 History glipiZIDE XL [Glucotrol XL] 5 mg PO BID 07/22/19 02/16/20 History Atorvastatin [Lipitor] 20 mg PO DAILY 08/26/19 02/16/20 History Insulin Glargine,Hum.rec.anlog 30 unit SQ BID 08/26/19 02/16/20 History [Basaglar Kwikpen U-100] Diclofenac Sodium [Voltaren] 75 mg PO BID PRN 09/01/19 02/16/20 History Aspirin 325 mg PO DAILY 30 Days #30 tab 09/02/19 02/16/20 Rx Gabapentin [Neurontin] 300 mg PO BID 10/12/19 02/16/20 History oxyCODONE-APAP 10-325MG [Percocet 1 tab PO QID PRN 10/12/19 02/16/20 History 10-325 mg] INSULIN LISPRO (HumaLOG) [humaLOG] 10 unit SQ TID-W/MEALS 02/16/20 02/16/20 History Ranexa (Unknown Strength) 1 tab PO DIRECTED 02/16/20 02/16/20 History Allergies Allergy/AdvReac Type Severity Reaction Status Date / Time doxycycline Allergy Swelling Verified 02/16/20 20:25 ketorolac tromethamine Allergy Rash/Hives Verified 02/16/20 20:25 [From Toradol] morphine Allergy Rash/Hives Verified 02/16/20 20:25 metoclopramide HCl AdvReac Dystonic Verified 02/16/20 20:25 [From Reglan] Reaction prochlorperazine edisylate AdvReac Dystonic Verified 02/16/20 20:25 [From Compazine] Reaction prochlorperazine maleate AdvReac Dystonic Verified 02/16/20 20:25 [From Compazine] Reaction Physical Exam Vitals: Vital Signs Temp Pulse Pulse Resp BP BP Pulse Ox 02/17/20 03:00 98.4 F 88 18 155/103 99 02/16/20 20:21 97 18 02/16/20 20:15 97.8 F 97 18 155/106 99 02/16/20 19:17 90 18 149/95 98 02/16/20 18:42 97.8 F 82 97 18 165/92 155/106 99 02/16/20 18:14 99 02/16/20 18:00 92 14 179/110 97 02/16/20 17:30 96 16 160/95 97 02/16/20 17:00 99 15 165/105 99 02/16/20 16:30 105 H 17 174/104 98 02/16/20 16:09 174/104 02/16/20 16:05 98.8 F 109 H 18 174/104 98 Intake and Output 02/16/20 02/17/20 02/17/20 22:59 06:59 14:59 Output Total 1400 Balance -1400 Output: Urine 1400 Other: Voiding Method Toilet Toilet # Voids 1 Weight 131.542 kg Results 02/16/20 16:54 02/16/20 16:54 Cardiac Enzymes 02/16/20 02/16/20 02/16/20 Range/Units 16:54 16:54 19:54 AST 29 (17-59) U/L Troponin I <0.012 <0.012 (0.000-0.034) ng/mL 02/16/20 Range/Units 22:31 AST (17-59) U/L Troponin I <0.012 (0.000-0.034) ng/mL Coagulation 02/16/20 Range/Units 16:54 PT 9.5 (9.0-12.0) sec APTT 21.4 L (22.0-30.0) sec Lipids 02/17/20 Range/Units 05:55 Triglycerides 321 H (<150) mg/dL Cholesterol 178 (<200) mg/dL HDL Cholesterol 40 (40-60) mg/dL CBC 02/16/20 Range/Units 16:54 WBC 7.3 (3.8-10.6) k/uL RBC 4.98 (4.30-5.90) m/uL Hgb 13.6 (13.0-17.5) gm/dL Hct 42.0 (39.0-53.0) % Plt Count 239 (150-450) k/uL Comprehensive Metabolic Panel 02/16/20 Range/Units 16:54 Sodium 137 (137-145) mmol/L Potassium 4.3 (3.5-5.1) mmol/L Chloride 105 (98-107) mmol/L Carbon Dioxide 22 (22-30) mmol/L BUN 11 (9-20) mg/dL Creatinine 0.60 L (0.66-1.25) mg/dL Glucose 141 H (74-99) mg/dL Calcium 9.5 (8.4-10.2) mg/dL AST 29 (17-59) U/L ALT 40 (4-49) U/L Alkaline Phosphatase 109 (38-126) U/L Total Protein 7.1 (6.3-8.2) g/dL Albumin 4.3 (3.5-5.0) g/dL Current Medications Generic Name Dose Route Start Last Admin Trade Name Freq PRN Reason Stop Dose Admin Aspirin 81 mg 02/17/20 09:00 Aspirin PO DAILY [facility] Atorvastatin Calcium 20 mg 02/17/20 09:00 Lipitor PO DAILY [facility] Gabapentin 300 mg 02/17/20 09:00 Neurontin PO BID [facility] Glipizide 5 mg 02/17/20 09:00 Glucotrol PO BID [facility] Heparin Sodium (Porcine) 5,000 unit 02/17/20 09:00 Heparin SQ Q12HR [facility] Hydromorphone HCl 1 mg 02/16/20 18:02 02/17/20 03:24 Dilaudid IVP 1 mg Q4HR PRN Administration Pain Insulin Aspart 10 unit 02/17/20 12:00 Novolog SQ TID-W/MEALS [facility] Insulin Aspart 0 unit 02/17/20 12:00 Novolog SQ ACHS [facility] Protocol Insulin Detemir 30 unit 02/17/20 12:00 Levemir SQ BID [facility] Nitroglycerin 0.4 mg 02/16/20 18:14 Nitrostat SUBLINGUAL Q5M PRN Chest Pain Pantoprazole Sodium 40 mg 02/17/20 07:30 02/17/20 06:10 Protonix PO Not Given AC-BRKFST JOEY Intake and Output 02/16/20 02/17/20 02/17/20 22:59 06:59 14:59 Output Total 1400 Balance -1400 Output: Urine 1400 Other: Voiding Method Toilet Toilet # Voids 1 Weight 131.542 kg 02/16/20 16:54 02/16/20 16:54
--- NOTE | 2020-02-17 13:30 | ECHOS ---
STRESS ECHOCARDIOGRAM LUMASON: Vial INDICATIONS: Chest Pain. MEDICATIONS: BASELINE HEART RATE: 89 BASELINE BLOOD PRESSURE: 148/89 MAXIMUM HEART RATE: 145 MAXIMUM BLOOD PRESSURE: 167/87 85% MPHR: 142 100% MPHR: 167 METS: MAXIMUM STAGE REACHED: 3 TOTAL EXERCISE TIME: CLINICAL INFORMATION: Baseline EKG shows sinus rhythm, normal axis, normal intervals. Patient was given intravenous dobutamine over a period of 8 minutes as per protocol. Did not have chest pain or diagnostic ST-segment depression. Baseline echo shows normal left ventricular size, wall motion and systolic function. Post dobutamine, there is normal hyperdynamic response of all segments of myocardium noted. A lumason contrast agent was used used to enhance endocardial visualization. CONCLUSION: 1. Negative stress test by EKG criteria. 2. Negative dobutamine echo. MMODL / IJN: [id number] /
--- NOTE | 2020-02-17 16:13 | P.HPIM ---
History of Present Illness H&P Date: 02/17/20 Chief Complaint: Chest pain Patient is a 54-year-old male with a known history of hypertension, diabetes type 2 insulin-dependent, hyperlipidemia, history of [place], cardiac catheterization with normal coronaries, history of PE, obstructive sleep apnea on CPAP, morbid obesity with a BMI 40.4 and a chronic back pain secondary to herniated disc disease and history of neurostimulator placement on December 27, 2019 and other multiple medical problems presents to ER with complaints of chest pain and also lower back pain. 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 After returning home patient suddenly developed midsternal chest pain rating to the back associated with shortness of breath and diaphoresis and nauseated. Patient took about 2 nitroglycerin tablets and 3 aspirins which did not relieve her symptoms much. Patient also continues to have chest pressure and also lower back pain and lower abdominal pain shooting down to the back. Patient states that he had kidney stones in the past. No fever no chills. No recent illnesses otherwise. Chest x-ray showed no acute cardiopulmonary process. No change. EKG showed sinus tachycardia on admission CT angiogram of the chest was done showed no evidence of pulmonary embolism. Fatty infiltration of the liver. No significant change compared to old exam. Laboratory data showed WBC 7.3, hemoglobin 13.6 and platelets 239 Sodium 137, potassium 4.3, bicarbonate 22 BUN 11 and creatinine 0.60 Troponin x3- Magnesium 1.8 BNP 36 Lipase level is 92 Triglycerides 321, total cholesterol 178 and LDL 74 HDL 40 Review of Systems Constitutional: Patient denies any fever or chills . No generalized weakness or weight loss. Abdomen: Patient denied nausea vomiting and diarrhea and abdominal pain. Cardiovascular: patient complaint of chest pain, shortness of breath. No leg swelling. No palpitations.. Respiratory: patient denied any cough is from production. No shortness of breath Neurologic: Patient denied any numbness or tingling headache. Musculoskeletal: Patient denies any complaints of joint swelling or deformity.patient does have back pain. Skin: Negative Psychiatric: Negative Endocrine: No heat or cold intolerance. No recent weight gain. Genitourinary: No dysuria or hematuria. All other 14 point ROS negative except the above Past Medical History Past Medical History: Asthma, Chest Pain / Angina, Diabetes Mellitus, GERD/ Reflux, Hyperlipidemia, Hypertension, Myocardial Infarction ([place]), Mitral Valve Prolapse (MVP), Pulmonary Embolus (PE), Sleep Apnea/CPAP/BIPAP Additional Past Medical History / Comment(s): Obesity, chronic asthmatic bronchitis, previous history of pulmonary embolism, objective sleep apnea, diabetes mellitus, hypertension, hyperlipidemia, previous history of myocardial infarction with underlying coronary artery disease, renal cysts, chronic back pain secondary to herniated lumbar disc disease with symptoms of sciatica, history of right lower extremity fracture at the age of 13, history of C. diff colitis approximately 4 years ago, history of bleeding peptic ulcer, neph rolithiasis, previous history of UTI and secondary sepsis. Last Myocardial Infarction Date:: 2011 History of Any Multi-Drug Resistant Organisms: MRSA Date of last positivie culture/infection: 2015 MDRO Source:: left axilla Past Surgical History: Appendectomy, Back Surgery, Cholecystectomy, Heart Catheterization, Hernia Repair Additional Past Surgical History / Comment(s): 2007 back surgery with decompression fusion at [facility], 2011, 2016 cardiac cath, multiple ESWL/ureteral stents/ double J catheters, L inquinal hernia repair, PICC line for ABX for urosepsis-since removed., spinal stimulator and lumbar laminectomy 12/27 Past Anesthesia/Blood Transfusion Reactions: No Reported Reaction Past Psychological History: No Psychological Hx Reported Smoking Status: Never smoker Past Alcohol Use History: None Reported Past Drug Use History: None Reported - Past Family History Father Family Medical History: Chest Pain / Angina Additional Family Medical History / Comment(s): "lung problems" Mother Family Medical History: Cancer, Chest Pain / Angina, Congestive Heart Failure (CHF), Osteoarthritis (OA), Thyroid Disorder Medications and Allergies Home Medications Medication Instructions Recorded Confirmed Type Omeprazole [PriLOSEC] 20 mg PO DAILY 12/11/17 02/16/20 History Carvedilol [Coreg] 12.5 mg PO BID 07/22/19 02/16/20 History glipiZIDE XL [Glucotrol XL] 5 mg PO BID 07/22/19 02/16/20 History Atorvastatin [Lipitor] 20 mg PO DAILY 08/26/19 02/16/20 History Insulin Glargine,Hum.rec.anlog 30 unit SQ BID 08/26/19 02/16/20 History [Basaglar Kwikpen U-100] Aspirin 325 mg PO DAILY 30 Days #30 tab 09/02/19 02/16/20 Rx Gabapentin [Neurontin] 300 mg PO BID 10/12/19 02/16/20 History oxyCODONE-APAP 10-325MG [Percocet 1 tab PO QID PRN 10/12/19 02/16/20 History 10-325 mg] INSULIN LISPRO (HumaLOG) [humaLOG] 10 unit SQ TID-W/MEALS 02/16/20 02/16/20 History lisinopriL [Zestril] 10 mg PO DAILY #30 tab 02/17/20 Rx Allergies Allergy/AdvReac Type Severity Reaction Status Date / Time doxycycline Allergy Swelling Verified 02/16/20 20:25 ketorolac tromethamine Allergy Rash/Hives Verified 02/16/20 20:25 [From Toradol] morphine Allergy Rash/Hives Verified 02/16/20 20:25 metoclopramide HCl AdvReac Dystonic Verified 02/16/20 20:25 [From Reglan] Reaction prochlorperazine edisylate AdvReac Dystonic Verified 02/16/20 20:25 [From Compazine] Reaction prochlorperazine maleate AdvReac Dystonic Verified 02/16/20 20:25 [From Compazine] Reaction Physical Exam Vitals: Vital Signs Temp Pulse Pulse Resp BP BP Pulse Ox 02/17/20 03:00 98.4 F 88 18 155/103 99 02/16/20 20:21 97 18 02/16/20 20:15 97.8 F 97 18 155/106 99 02/16/20 19:17 90 18 149/95 98 02/16/20 18:42 97.8 F 82 97 18 165/92 155/106 99 02/16/20 18:14 99 02/16/20 18:00 92 14 179/110 97 02/16/20 17:30 96 16 160/95 97 02/16/20 17:00 99 15 165/105 99 02/16/20 16:30 105 H 17 174/104 98 02/16/20 16:09 174/104 02/16/20 16:05 98.8 F 109 H 18 174/104 98 Intake and Output 08/09/20 08/10/20 08/10/20 22:59 06:59 14:59 Output Total 1400 Balance -1400 Output: Urine 1400 Other: Voiding Method Toilet Toilet # Voids 1 Weight 131.542 kg PHYSICAL EXAMINATION: Patient is lying in the bed comfortably, no acute distress, awake alert and oriented.morbidly obese. HEENT: Normocephalic. Neck is supple. Pupils reactive. Nostrils clear. Oral cavity is moist. Ears reveal no drainage. Neck reveals no JVD, carotid bruits, or thyromegaly. CHEST EXAMINATION: Trachea is central. Symmetrical expansion.bibasilar diminished air entry.Lung turner clear to auscultation and percussion. CARDIAC: Normal S1, S2 with no gallops. No murmurs ABDOMEN: Soft. Bowel sounds normal. No organomegaly. No abdominal bruits. Extremities: reveal no edema. No clubbing or cyanosis Neurologically awake, alert, oriented x3 with well-coordinated movements. No focal deficits noted Skin: No rash or skin lesions. Psychiatric: Coperative. Nonsuicidal, anxious. Musculoskeletal: No joint swelling or deformity. Normal range of motion. Results CBC & Chem 7: 02/16/20 16:54 02/16/20 16:54 Labs: Abnormal Lab Results - Last 24 Hours (Table) 02/16/20 02/16/20 02/17/20 Range/Units 16:54 16:54 05:55 APTT 21.4 L (22.0-30.0) sec Creatinine 0.60 L (0.66-1.25) mg/dL Glucose 141 H (74-99) mg/dL POC Glucose (mg/dL) (75-99) mg/dL Triglycerides 321 H (<150) mg/dL 02/17/20 Range/Units 06:25 APTT (22.0-30.0) sec Creatinine (0.66-1.25) mg/dL Glucose (74-99) mg/dL POC Glucose (mg/dL) 178 H (75-99) mg/dL Triglycerides (<150) mg/dL Thrombosis Risk Factor Assmnt - DVT/VTE Prophylaxis DVT/VTE Prophylaxis: Pharmacologic Prophylaxis ordered - Choose All That Apply Any of the Below Risk Factors Present?: Yes Each Factor Represents 1 point: Age 41-60 years, Obesity (BMI >25) Thrombosis Risk Factor Assessment Total Risk Factor Score: 2 Thrombosis Risk Factor Assessment Level: Low Risk Assessment and Plan Assessment: Atypical chest pain/pressure. Ruled out ACS. Recent cardiac cath showed normal coronaries. Uncontrolled hypertension on admission. Chronic lower back pain status post neurostimulator placement in December 2019 Hypertriglyceridemia Diabetes type 2 insulin-dependent Hyperlipidemia Asthma not in exacerbation Obstructive sleep apnea on CPAP at home History of PE DVT prophylaxis with heparin subcu Plan: Patient will be continued on telemetry monitoring. Serial troponin and EKG x3-. Tachycardia improved. Cardiology recommends dobutamine stress test. Continue with home medications and lisinopril was added to better control blood pressure. Continue with insulin sliding scale and home insulin regimen. Pain management and follow-up closely. Cardiology is on board. Time with Patient: Greater than 30
[2020-02-17 17:08] LABS: Glucose,Whole Blood 136 mg/dL (75-99)
--- NOTE | 2020-02-17 18:02 | XR ---
EXAMINATION TYPE: XR KUB DATE OF EXAM: 02/17/2020 4:51 PM CLINICAL HISTORY: Abdominal and back pain. TECHNIQUE: Two supine KUB images of the abdomen are obtained. COMPARISON: CT abdomen and pelvis October 13, 2019.. FINDINGS there is some positive bowel gas gas seen in mildly prominent stomach. Scattered gas seen in nondistended small and large bowel loops. Postsurgical change to the mid to lower lumbar spine redem onstrated. Spinal stimulator device terminating in the lower thoracic spinal canal is now present. Ch olecystectomy clips are redemonstrated. Lung bases are clear. [id number] axial joint space loss and spurring in both hip joints. IMPRESSION: Overall nonspecific but strongly favor nonobstructive bowel gas pattern.
[2020-02-17 18:48] LABS: Amorphous Sediment,Urine Rare /hpf; Appearance,Urine Cloudy (Clear); Bilirubin,Urine Negative (Negative); Blood,Urine Large (Negative); Color,Urine Yellow; Glucose,Urine (UA) Trace (Negative); Ketones,Urine Negative (Negative); Leukocyte Esterase,Urine Negative (Negative); Mucus,Urine Rare /hpf; Nitrite,Urine Negative (Negative); Protein,Urine Negative (Negative); RBC,Urine >182 /hpf (0-5); Specific Gravity,Urine 1.018 (1.001-1.035); Urobilinogen,Urine <2.0 mg/dL (<2.0); WBC,Urine 1 /hpf (0-5)
[2020-02-17 22:01] LABS: Glucose,Whole Blood 150 mg/dL (75-99)
[2020-02-18] MEDS: HYDROmorphone 1 MG/ML 1 ML SYRINGE IVP PRN ×3 (03:38→11:50)
[2020-02-18 07:08] LABS: Glucose,Whole Blood 157 mg/dL (75-99)
[2020-02-18] MEDS: PANTOPRAZOLE 40 MG TABLET PO SCH (07:12)
[2020-02-18] MEDS: INSULIN ASPART (NovoLOG) 100 UNIT/ML VIAL SQ SCH ×7 (07:12→21:26)
[2020-02-18] MEDS: carvediloL 12.5 MG TAB PO SCH ×2 (07:12→16:54)
[2020-02-18] MEDS: INSULIN DETEMIR (LEVEMIR) 100 UNIT/ML SYR SQ SCH ×2 (07:13→21:34)
[2020-02-18] MEDS: lisinopriL 10 MG TAB PO SCH (09:49)
[2020-02-18] MEDS: HEPARIN SODIUM,PORCINE 5,000 UNIT/ML 1 ML VIAL SQ SCH (09:49)
[2020-02-18] MEDS: GABAPENTIN 300 MG CAP PO SCH ×2 (09:49→21:32)
[2020-02-18] MEDS: ASPIRIN 81 MG PO SCH (09:49)
[2020-02-18] MEDS: ATORVASTATIN 20 MG TAB PO SCH (09:49)
[2020-02-18] MEDS: glipiZIDE 5 MG TAB PO SCH ×2 (09:49→21:32)
[2020-02-18] MEDS: SODIUM CHLORIDE 0.9% 1,000 ML IV SCH (11:12)
[2020-02-18] MEDS ORDERED: ONDANSETRON 4 MG/2 ML VIAL IVP PRN (11:15)
[2020-02-18 11:35] LABS: Glucose,Whole Blood 131 mg/dL (75-99)
[2020-02-18] MEDS: oxyCODONE-APAP 10-325MG 1 EACH TAB PO PRN ×2 (13:57→21:32)
[2020-02-18 16:35] LABS: Glucose,Whole Blood 148 mg/dL (75-99)
--- NOTE | 2020-02-18 18:01 | P.GSCN ---
History of Present Illness Consult date: 02/18/20 Reason for Consult: Hematuria and flank pain History of present illness: The patient is a 54-year-old male admitted through the emergency room for observation on 02/15 after he experienced chest pain with exertion earlier in the day. His cardiac evaluation so far has shown no definite abnormality. At the time of admission the patient also was complaining of intermittent flank pain in the left and right sides. He says that he has experienced some "blood streaks" in his urine over the last few days. I was asked to see the patient for further evaluation as there is concern that he may be passing a kidney stone. The patient is well-known to me but I have not seen him since 2014. At that time he had a calculus in the right lower pole calyx which could not be visualized via ureteroscopy and was eventually successfully treated with per cutaneous nephrostolithotomy at [facility]. He says that he thinks he passed a few small stones since then but has not required any further surgical intervention. He was evaluated by Dr. Ac in 10/2019 due to flank pain but at that time a noncontrast CT scan of the abdomen and pelvis showed no evidence of urolithiasis or hydronephrosis. A benign-appearing cyst was noted in the upper pole of the right kidney. Patient also had a lumbar CT scan on 01/06/2020 and there was no evidence of calculus present in the right or left kidneys at that time. KUB performed earlier today showed no identifiable in the region of the kidneys or ureters.The patient describes his current pain as "stabbing" he says it will sometimes last for only a few minutes and then resolved. He says that his pain is very similar to that experienced with ureteral colic in the past. Review of Systems - Genitourinary Reports as per HPI, Reports urinary frequency, Denies dysuria Past Medical History Past Medical History: Asthma, Chest Pain / Angina, Diabetes Mellitus, GERD/Reflux, Hyperlipidemia, Hypertension, Myocardial Infarction (NH), Mitral Valve Prolapse (MVP), Pulmonary Embolus (PE), Sleep Apnea/CPAP/BIPAP Additional Past Medical History / Comment(s): Obesity, chronic asthmatic bronchitis, previous history of pulmonary embolism, objective sleep apnea, diabetes mellitus, hypertension, hyperlipidemia, previous history of myocardial infarction with underlying coronary artery disease, renal cysts, chronic back pain secondary to herniated lumbar disc disease with symptoms of sciatica, history of right lower extremity fracture at the age of 13, history of C. diff colitis approximately 4 years ago, history of bleeding peptic ulcer, nephrolithiasis, previous history of UTI and secondary sepsis. Last Myocardial Infarction Date:: 2011 History of Any Multi-Drug Resistant Organisms: MRSA Year Discovered:: 2016 MDRO Source:: left axilla Past Surgical History: Appendectomy, Back Surgery, Cholecystectomy, Heart Catheterization, Hernia Repair Additional Past Surgical History / Comment(s): 2007 back surgery with decompression fusion at [facility], 2011, 2016 cardiac cath, multiple ESWL/ureteral stents/ double J catheters, L inquinal hernia repair, PICC line for ABX for urosepsis-since removed., spinal stimulator and lumbar laminectomy 12/27 Past Anesthesia/Blood Transfusion Reactions: No Reported Reaction Past Psychological History: No Psychological Hx Reported Smoking Status: Never smoker Past Alcohol Use History: None Reported Past Drug Use History: None Reported - Past Family History Father Family Medical History: Chest Pain / Angina Additional Family Medical History / Comment(s): "lung problems" Mother Family Medical History: Cancer, Chest Pain / Angina, Congestive Heart Failure (CHF), Osteoarthritis (OA), Thyroid Disorder Medications and Allergies Home Medications Medication Instructions Recorded Confirmed Type Omeprazole [PriLOSEC] 20 mg PO DAILY 12/11/17 02/16/20 History Carvedilol [Coreg] 12.5 mg PO BID 07/22/19 02/16/20 History glipiZIDE XL [Glucotrol XL] 5 mg PO BID 07/22/19 02/16/20 History Atorvastatin [Lipitor] 20 mg PO DAILY 08/26/19 02/16/20 History Insulin Glargine,Hum.rec.anlog 30 unit SQ BID 08/26/19 02/16/20 History [Basaglar Kwikpen U-100] Aspirin 325 mg PO DAILY 30 Days #30 tab 09/02/19 02/16/20 Rx Gabapentin [Neurontin] 300 mg PO BID 10/12/19 02/16/20 History oxyCODONE-APAP 10-325MG [Percocet 1 tab PO QID PRN 10/12/19 02/16/20 History 10-325 mg] INSULIN LISPRO (HumaLOG) [humaLOG] 10 unit SQ TID-W/MEALS 02/16/20 02/16/20 History lisinopriL [Zestril] 10 mg PO DAILY #30 tab 02/17/20 Rx Allergies Allergy/AdvReac Type Severity Reaction Status Date / Time doxycycline Allergy Swelling Verified 02/16/20 20:25 ketorolac tromethamine Allergy Rash/Hives Verified 02/16/20 20:25 [From Toradol] morphine Allergy Rash/Hives Verified 02/16/20 20:25 metoclopramide HCl AdvReac Dystonic Verified 02/16/20 20:25 [From Reglan] Reaction prochlorperazine edisylate AdvReac Dystonic Verified 02/16/20 20:25 [From Compazine] Reaction prochlorperazine maleate AdvReac Dystonic Verified 02/16/20 20:25 [From Compazine] Reaction Surgical - Exam Vital Signs Temp Pulse Resp BP Pulse Ox 98.8 F 109 H 18 174/104 98 02/16/20 16:05 02/16/20 16:05 02/16/20 16:05 02/16/20 16:05 02/16/20 16:05 - General well developed, well nourished, no distress, obese - ENT no hearing loss - Neck no masses, no lymphadectomy - Respiratory normal respiratory effort - Abdomen Abdomen: soft, non tender, no organomegaly Results - Labs 02/16/20 16:54 02/16/20 16:54 Abnormal Lab Results - Last 24 Hours (Table) 02/17/20 02/17/20 02/18/20 Range/Units 17:55 21:59 07:02 POC Glucose (mg/dL) 150 H 157 H (75-99) mg/dL Urine Glucose (UA) Trace H (Negative) Urine Blood Large H (Negative) Urine RBC >182 H (0-5) /hpf Amorphous Sediment Rare H (None) /hpf Urine Mucus Rare H (None) /hpf 02/18/20 02/18/20 Range/Units 11:34 16:33 POC Glucose (mg/dL) 131 H 148 H (75-99) mg/dL Urine Glucose (UA) (Negative) Urine Blood (Negative) Urine RBC (0-5) /hpf Amorphous Sediment (None) /hpf Urine Mucus (None) /hpf - Imaging Abdominal x-ray: image reviewed CT scan - abdomen: image reviewed CT scan - pelvis: image reviewed Assessment and Plan (1) Gross hematuria Narrative/Plan: The source of the patient's flank pain and gross hematuria is not clear. I personally reviewed the CT scans from 10/27 and 12/27 as well as his most recent KUB. It would be unusual for a calculus to have formed over the last 5 weeks since the time of his lumbosacral CT scan and if a calculus has formed it is most likely small and likely to pass spontaneously. I told the patient for the time being would be reasonable for him to continue observation. If his pain continues then outpatient noncontrast CT scan of the abdomen and pelvis and possibly cystoscopy could be set up. Current Visit: Yes Status: Acute Code(s): R31.0 - GROSS HEMATURIA SNOMED Code(s): 855068293
[2020-02-18 21:25] LABS: Glucose,Whole Blood 112 mg/dL (75-99)
--- NOTE | 2020-02-18 22:57 | P.PN ---
Subjective Progress Note Date: 02/18/20 Principal diagnosis: Chest pain abd. pain Patient is a 54-year-old male with a known history of hypertension, diabetes type 2 insulin-dependent, hyperlipidemia, history of ID, cardiac catheterization with normal coronaries, history of PE, obstructive sleep apnea on CPAP, morbid obesity with a BMI 40.4 and a chronic back pain secondary to herniated disc disease and history of neurostimulator placement on December 27, 2019 and other multiple medical problems presents to ER with complaints of chest pain and also lower back pain. Patient states that he went to the car dealership to order picker for his car but was not ready and he has to walk back about 1 mile. After returning home patient suddenly developed midsternal chest pain rating to the back associated with shortness of breath and diaphoresis and nauseated. Patient took about 2 nitroglycerin tablets and 3 aspirins which did not relieve her symptoms much. Patient also continues to have chest pressure and also lower ba ck pain and lower abdominal pain shooting down to the back. Patient states that he had kidney stones in the past. No fever no chills. No recent illnesses otherwise. Chest x-ray showed no acute cardiopulmonary process. No change. EKG showed sinus tachycardia on admission CT angiogram of the chest was done showed no evidence of pulmonary embolism. Fatty infiltration of the liver. No significant change compared to old exam. Laboratory data showed WBC 7.3, hemoglobin 13.6 and platelets 239 Sodium 137, potassium 4.3, bicarbonate 22 BUN 11 and creatinine 0.60 Troponin x3- Magnesium 1.8 BNP 36 Lipase level is 92 Triglycerides 321, total cholesterol 178 and LDL 74 HDL 40 02/18/20 Patient is currently lying in the bed comfortably. Denied any complaints of chest pain. Patient states that he has been having left lower back pain and radiating down the groin area. Patient states that he has been having dark- colored urine. Urinalysis showed greater than 182. Due to prior history of jeannie al stones, urology was consulted for evaluation. Patient otherwise denies any complaints of fever or chills. No leukocytosis. Denied any dysuria. Patient was started on gentle hydration. Current medications reviewed. Objective - Vital Signs Vital signs: Vital Signs Temp 97.9 F 02/18/20 14:26 Pulse 88 02/18/20 14:28 Resp 16 02/18/20 14:28 BP 165/80 02/18/20 14:26 Pulse Ox 95 02/18/20 14:26 Intake & Output 02/18/20 02/18/20 02/19/20 06:59 18:59 06:59 Intake Total 75 480 Output Total 650 Balance 75 -170 Intake: Oral 75 480 Output: Urine 650 Other: Voiding Method Toilet Toilet # Voids 1 2 - Exam PHYSICAL EXAMINATION: Patient is lying in the bed comfortably, no acute distress, awake alert and oriented.morbidly obese. HEENT: Normocephalic. Neck is supple. Pupils reactive. Nostrils clear. Oral cavity is moist. Ears reveal no drainage. Neck reveals no JVD, carotid bruits, or thyromegaly. CHEST EXAMINATION: Trachea is central. Symmetrical expansion.bibasilar diminished air entry.Lung turner clear to auscultation and percussion. CARDIAC: Normal S1, S2 with no gallops. No murmurs ABDOMEN: Soft. Bowel sounds normal. No organomegaly. No abdominal bruits. Extremities: reveal no edema. No clubbing or cyanosis Neurologically awake, alert, oriented x3 with well-coordinated movements. No focal deficits noted Skin: No rash or skin lesions. Psychiatric: Coperative. Nonsuicidal, anxious. Musculoskeletal: No joint swelling or deformity. Normal range of motion. - Labs CBC & Chem 7: 02/16/20 16:54 02/16/20 16:54 Labs: Abnormal Lab Results - Last 24 Hours (Table) 02/17/20 02/18/20 02/18/20 Range/Units 21:59 07:02 11:34 POC Glucose (mg/dL) 150 H 157 H 131 H (75-99) mg/dL 02/18/20 Range/Units 16:33 POC Glucose (mg/dL) 148 H (75-99) mg/dL Assessment and Plan Assessment: Hematuria with history of renal stones. Atypical chest pain/pressure. Ruled out ACS. Recent cardiac cath showed normal coronaries. Uncontrolled hypertension on admission. Chronic lower back pain status post neurostimulator placement in December 2019 Hypertriglyceridemia Diabetes type 2 insulin-dependent Hyperlipidemia Asthma not in exacerbation Obstructive sleep apnea on CPAP at home History of PE DVT prophylaxis with heparin subcu Plan: Patient will be continued on telemetry monitoring. Serial troponin and EKG x3-. Tachycardia improved. Negative dobutamine stress test. Patient was seen by cardiology.Due to hematuria patient was started on IV hydration and monitor H&H. Urology was consulted. Continue with home medications and lisinopril was added to better control blood pressure. Continue with insulin sliding scale and home insulin regimen. Pain management and follow-up closely. Time with Patient: Greater than 30
[2020-02-19] MEDS: oxyCODONE-APAP 10-325MG 1 EACH TAB PO PRN ×3 (03:19→11:43)
[2020-02-19] MEDS: SODIUM CHLORIDE 0.9% 1,000 ML IV SCH (03:33)
[2020-02-19 07:05] LABS: Glucose,Whole Blood 184 mg/dL (75-99)
[2020-02-19] MEDS: carvediloL 12.5 MG TAB PO SCH (07:08)
[2020-02-19] MEDS: INSULIN DETEMIR (LEVEMIR) 100 UNIT/ML SYR SQ SCH (07:08)
[2020-02-19] MEDS: INSULIN ASPART (NovoLOG) 100 UNIT/ML VIAL SQ SCH ×4 (07:08→12:07)
[2020-02-19 08:00] VITALS: BP 142/89; PULSE 58; RESP 20; TEMP 97.8
[2020-02-19] MEDS: PANTOPRAZOLE 40 MG TABLET PO SCH (08:06)
[2020-02-19] MEDS: ATORVASTATIN 20 MG TAB PO SCH (08:06)
[2020-02-19] MEDS: lisinopriL 10 MG TAB PO SCH (08:06)
[2020-02-19] MEDS: GABAPENTIN 300 MG CAP PO SCH (08:06)
[2020-02-19] MEDS: ASPIRIN 81 MG PO SCH (08:06)
[2020-02-19] MEDS: glipiZIDE 5 MG TAB PO SCH (08:09)
[2020-02-19 09:42] LABS: Basophils % (A) 1 %; Eosinophils # (A) 0.4 k/uL (0-0.7); Eosinophils % (A) 7 %; HCT 40.2 % (39.0-53.0); HGB 13.2 gm/dL (13.0-17.5); Lymphocytes # (A) 1.4 k/uL (1.0-4.8); Lymphocytes % (A) 25 %; MCH 28.1 pg (25.0-35.0); MCHC 32.9 g/dL (31.0-37.0); MCV 85.6 fL (80.0-100.0); Mean Platelet Volume 7.2; Monocytes # (A) 0.3 k/uL (0-1.0); Monocytes % (A) 6 %; Neutrophils # (A) 3.4 k/uL (1.3-7.7); Neutrophils % (A) 60 %; Platelet Count 226 k/uL (150-450); RDW 13.4 % (11.5-15.5); WBC 5.7 k/uL (3.8-10.6)
[2020-02-19 09:58] LABS: African American GFR (CKD) >90 (>60 ml/min/1.73 sqM); Anion Gap 8 mmol/L; Blood Urea Nitrogen 10 mg/dL (9-20); Calcium 9.2 mg/dL (8.4-10.2); Carbon Dioxide 22 mmol/L (22-30); Chloride 106 mmol/L (98-107); Glucose 187 mg/dL (74-99); Non-African American GFR(CKD) >90 (>60 ml/min/1.73 sqM); Potassium 4.4 mmol/L (3.5-5.1); Sodium 136 mmol/L (137-145)
[2020-02-19 11:39] LABS: Glucose,Whole Blood 126 mg/dL (75-99)
--- NOTE | 2020-02-21 12:24 | CDI ---
Documentation Clarification Form Date: 02/21/20 From: Bethany Rivers Phone: If you have a question about this query, please contact Carla Gonzalez, Policy Writer Typist at [phone] between 8am and 5pm. Admit Date: 02/19/20 Discharge Date: 02/19/20 Patient Name: MAIN CHEUNG Visit Number: [id number] ATTENTION: The Clinical Documentation Specialists (CDI) and [facility] Coding Staff appreciate your assistance in clarifying documentation. Please respond to the clarification below the line at the bottom and electronically sign. The CDI & [facility] Coding staff will review the response and follow-up if needed. Please note: Queries are made part of the Legal Health Record. If you have any questions, please contact the author of this message via ITS. Dear Dr. Maximilian Chaparro, The patient had uncontrolled hypertension on admission. History/Risk Factors: gross hematuria, morbid obesity, COPD/Asthma, DM Clinical Indicators: Per H&P - uncontrolled hypertension on admission. BP: 02/15-02/18 Unspecified: -174/104, 174/104, 174/104,165/105, 160/95, 179/110, 165/95 Left arm - 155/106, 155/106, 155/103, 161/106, 121/83, 102/70, 128/83, 157/106, 165/80, 114/79, 108/64, 142/89 Treatment: IV fluids, Apresoline IVP 10 mg, Loopressor 50 mg po bid, In your professional opinion, can you please clarify the type of uncontrolled hypertension? Hypertensive urgency Hypertensive emergency Other, please specify Unable to determine Uncontrolled hypertension. Not hypertensive urgency or emergency. MTDD
== END 2020-02-19 12:50 | disposition home or self-care (01) | DRG 696 ==
LOC: EC 16:02 → 3NCARDOBS 18:14 → OBSVTOIN 02-19 09:00
PROVIDERS: ADMIT Hospitalist; ATTEND Hospitalist
DX: R31.0 Gross hematuria (principal); Z68.41 Body mass index [BMI] 40.0-44.9, adult; R07.89 Other chest pain; K76.0 Fatty (change of) liver, not elsewhere classified; E66.01 Morbid (severe) obesity due to excess calories; J44.9 Chronic obstructive pulmonary disease, unspecified; Z79.4 Long term (current) use of insulin; Z20.828 Contact with and (suspected) exposure to other viral communicable diseases; I10 Essential (primary) hypertension; I34.1 Nonrheumatic mitral (valve) prolapse; E78.1 Pure hyperglyceridemia; E78.5 Hyperlipidemia, unspecified; I25.10 Atherosclerotic heart disease of native coronary artery without angina pectoris; G89.29 Other chronic pain; M51.16 Intervertebral disc disorders with radiculopathy, lumbar region; G47.33 Obstructive sleep apnea (adult) (pediatric); K21.9 Gastro-esophageal reflux disease without esophagitis; I25.2 Old myocardial infarction; Z79.82 Long term (current) use of aspirin; Z79.899 Other long term (current) drug therapy; Z87.442 Personal history of urinary calculi; Z86.14 Personal history of Methicillin resistant Staphylococcus aureus infection; Z86.711 Personal history of pulmonary embolism; Z87.448 Personal history of other diseases of urinary system; Z87.11 Personal history of peptic ulcer disease; Z86.19 Personal history of other infectious and parasitic diseases; Z90.49 Acquired absence of other specified parts of digestive tract; Z87.19 Personal history of other diseases of the digestive system; Z98.1 Arthrodesis status; Z96.82 Presence of neurostimulator; Z98.890 Other specified postprocedural states; Z88.6 Allergy status to analgesic agent; Z88.1 Allergy status to other antibiotic agents; Z88.5 Allergy status to narcotic agent; Z88.8 Allergy status to other drugs, medicaments and biological substances; Z82.49 Family history of ischemic heart disease and other diseases of the circulatory system; Z82.61 Family history of arthritis; Z83.49 Family history of other endocrine, nutritional and metabolic diseases; Z80.9 Family history of malignant neoplasm, unspecified
CPT/HCPCS: 36415; 71046; 71275; 74018; 80048; 80053; 80061; 81001; 82550; 83690; 83735; 83880; 84484; 85025; 85610; 85730; 93005; 93351; 96361; 96374; 96375; 96376; 99285

== ENCOUNTER 2020-04-08 14:26 | Emergency (ER) | payer OTHER ==
[2020-04-08 14:34] VITALS: RESP 16; TEMP 100.1
[2020-04-08] MEDS ORDERED: HYDROmorphone 0.5 MG/0.5 ML SYRINGE IVP STA (14:54)
[2020-04-08] MEDS ORDERED: ONDANSETRON 4 MG/2 ML VIAL IVP STA (14:54)
[2020-04-08] MEDS ORDERED: PANTOPRAZOLE 40 MG/10 ML VIAL IVP STA (14:54)
[2020-04-08] MEDS ORDERED: SODIUM CHLORIDE 0.9% 1,000 ML IV STA ×2 (14:54)
--- NOTE | 2020-04-08 15:13 | ED ---
Abdominal Pain HPI - General Source: patient, RN notes reviewed Mode of arrival: ambulatory Limitations: no limitations <Vernell Siddiqui - Last Filed: 04/08/20 18:40> <Yin Gusman - Last Filed: 04/08/20 23:57> - General Chief Complaint: Abdominal Pain Stated Complaint: Post op Abdominal Pain Time Seen by Provider: 04/08/20 14:44 - History of Present Illness Initial Comments: Patient is a 54-year-old male present today with abdominal pain nausea and vomiting for the past 24 hours. Pain is localized left sides abdomen. 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 Pt surgeon was Dr. Foy. Patient states that he has had nausea and vomiting today, as well as fever and chills. Patient states that he's also noticed some dark stools in the past 4 hours, he is not on blood thinners. (Vernell Siddiqui) - Related Data Home Medications Medication Instructions Recorded Confirmed Omeprazole [PriLOSEC] 20 mg PO DAILY 12/11/17 04/08/20 Carvedilol [Coreg] 12.5 mg PO BID 07/22/19 04/08/20 glipiZIDE XL [Glucotrol XL] 5 mg PO BID 07/22/19 04/08/20 Atorvastatin [Lipitor] 20 mg PO DAILY 08/26/19 04/08/20 Insulin Glargine,Hum.rec.anlog 30 unit SQ BID 08/26/19 04/08/20 [Basaglar Kwikpen U-100] Gabapentin [Neurontin] 300 mg PO BID 10/12/19 04/08/20 oxyCODONE-APAP 10-325MG [Percocet 1 tab PO QID PRN 10/12/19 04/08/20 10-325 mg] INSULIN LISPRO (HumaLOG) [humaLOG] 10 unit SQ TID-W/MEALS 02/16/20 04/08/20 Simethicone Chew [Mylicon Chew] 80 mg PO BID PRN 04/08/20 04/08/20 Tamsulosin [Flomax] 0.4 mg PO DAILY 04/08/20 04/08/20 Previous Rx's Medication Instructions Recorded Aspirin 325 mg PO DAILY 30 Days #30 tab 09/02/19 lisinopriL [Zestril] 10 mg PO DAILY #30 tab 02/17/20 Allergies Allergy/AdvReac Type Severity Reaction Status Date / Time doxycycline Allergy Swelling Verified 04/08/20 16:08 ketorolac tromethamine Allergy Rash/Hives Verified 04/08/20 16:08 [From Toradol] morphine Allergy Rash/Hives Verified 04/08/20 16:08 metoclopramide HCl AdvReac Dystonic Verified 04/08/20 16:08 [From Reglan] Reaction prochlorperazine edisylate AdvReac Dystonic Verified 04/08/20 16:08 [From Compazine] Reaction prochlorperazine maleate AdvReac Dystonic Verified 04/08/20 16:08 [From Compazine] Reaction Review of Systems ROS Other: All systems not noted in ROS Statement are negative. <Vernell Siddiqui - Last Filed: 04/08/20 18:40> ROS Other: All systems not noted in ROS Statement are negative. <Yin Gusman - Last Filed: 04/08/20 23:57> ROS Statement: Those systems with pertinent positive or pertinent negative responses have been documented in the HPI. Past Medical History Past Medical History: Asthma, Chest Pain / Angina, Diabetes Mellitus, GERD/Reflux, Hyperlipidemia, Hypertension, Myocardial Infarction (IN), Mitral Valve Prolapse (MVP), Pulmonary Embolus (PE), Sleep Apnea/CPAP/BIPAP Additional Past Medical History / Comment(s): Obesity, chronic asthmatic bronchitis, previous history of pulmonary embolism, objective sleep apnea, diabe [place] mellitus, hypertension, hyperlipidemia, previous history of myocardial infarction with underlying coronary artery disease, renal cysts, chronic back pain secondary to herniated lumbar disc disease with symptoms of sciatica, history of right lower extremity fracture at the age of 13, history of C. diff colitis approximately 4 years ago, history of bleeding peptic ulcer, nephrolithiasis, previous history of UTI and secondary sepsis. Last Myocardial Infarction Date:: 2011 History of Any Multi-Drug Resistant Organisms: MRSA Date of last positivie culture/infection: 2016 MDRO Source:: left axilla Past Surgical History: Appendectomy, Back Surgery, Cholecystectomy, Heart Catheterization, Hernia Repair Additional Past Surgical History / Comment(s): 2007 back surgery with decompression fusion at [facility], 2011, 2016 cardiac cath, multiple ESWL/ureteral stents/ double J catheters, L inquinal hernia repair, PICC line for ABX for urosepsis-since removed., spinal stimulator and lumbar laminectomy 12/27. Colectomy February 2020 Past Anesthesia/Blood Transfusion Reactions: No Reported Reaction Past Psychological History: No Psychological Hx Reported Smoking Status: Never smoker Past Alcohol Use History: None Reported Past Drug Use History: None Reported - Past Family History Father Family Medical History: Chest Pain / Angina Additional Family Medical History / Comment(s): "lung problems" Mother Family Medical History: Cancer, Chest Pain / Angina, Congestive Heart Failure (CHF), Osteoarthritis (OA), Thyroid Disorder <Vernell Siddiqui - Last Filed: 04/08/20 18:40> General Exam Limitations: no limitations General appearance: alert, in no apparent distress Head exam: Present: atraumatic, normocephalic, normal inspection Eye exam: Present: normal appearance, PERRL, EOMI. Absent: scleral icterus, conjunctival injection, periorbital swelling ENT exam: Present: normal exam, mucous membranes moist Neck exam: Present: normal inspection. Absent: tenderness, meningismus, lymphadenopathy Respiratory exam: Present: normal lung sounds bilaterally. Absent: respiratory distress, wheezes, rales, rhonchi, stridor Cardiovascular Exam: Present: regular rate, normal rhythm, normal heart sounds. Absent: systolic murmur, diastolic murmur, rubs, gallop, clicks GI/Abdominal exam: Present: soft, tenderness (Lower abdominal tenderness reading towards left upper and lower quadrant., well-appearing midline incision site.), normal bowel sounds. Absent: distended, guarding, rebound, rigid Extremities exam: Present: normal inspection, full ROM, normal capillary refill. Absent: tenderness, pedal edema, joint swelling, calf tenderness Back exam: Present: normal inspection, full ROM Neurological exam: Present: alert, oriented X3, CN II-XII intact Psychiatric exam: Present: normal affect, normal mood Skin exam: Present: warm, dry, intact, normal color. Absent: rash <Vernell Siddiqui - Last Filed: 04/08/20 18:40> - General Exam Comments Initial Comments: 54-year-old male. Moderate discomfort. (Vernell Siddiqui) Course <Vernell Siddiqui - Last Filed: 04/08/20 18:40> Vital Signs 04/08/20 04/08/20 14:30 18:35 Temperature 100.1 F H Pulse Rate 116 H 86 Respiratory 16 16 Rate Blood Pressure 161/106 174/86 O2 Sat by Pulse 100 99 Oximetry - Reevaluation(s) Reevaluation #1: 04/08/20 18:41 was a difficult IV start. Patient had to have 2 ultrasound that I guided IVs to establish access. (EarleneVernell kelley) Medical Decision Making - Lab Data Result diagrams: 04/08/20 15:40 04/08/20 15:40 - Radiology Data Radiology results: report reviewed <Vernell Siddiqui - Last Filed: 04/08/20 18:40> - Lab Data Result diagrams: 04/08/20 15:40 04/08/20 15:40 <Yin Gusman - Last Filed: 04/08/20 23:57> - Medical Decision Making 54-year-old male presents emergency room today with fever nausea vomiting abdominal pain. Symptoms have been more progressive over the past 2 days. He also reports she's noticed dark stools. His fecal occult was negative at this time. White blood cell count was within normal limits and hemoglobin is stable. Chemistry panels are unremarkable. Patient had a fever 100.1 upon arrival to be diaphoretic. Denies chest pain shortness of breath or other complaints besides abdominal pain. Patient had recent colectomy with lymphoma removal within the past month at [facility]. Patient is a difficult IV start and had an ultrasound guided IV placement Patient was able to have computed tomography scan. CT shows no acute focal abscess there is fat stranding around the left paracolic gutter. This is where Patient is tender. With the fever and fat stranding discussed starting the Patient on empiric antibiotics. Patient was started on IV Zosyn I discussed the case with Attending physician Dr. Gusman, recommend transfer to facility where he had surgery. Discussed with Dr. Darling, whom accepts transfer to [facility]. (Vernell Siddiqui) I was available for consultation in the emergency department. The history and physical exam were done by the midlevel provider. I was consulted for this patients care. I reviewed the case with the midlevel provider and based on their presentation of the patient, I agree with the assessment, medical decision making and plan of care as documented. Chart was dictated using [employer] dictation software. Attempts were made to correct any dictation errors however some typographical errors may persist. Patient was seen during a national state of emergency due to the Covid-19 pandemic. (Yin Gusman) - Lab Data Lab Results 04/08/20 04/08/20 04/08/20 Range/Units 15:40 15:40 15:40 WBC 5.4 (3.8-10.6) k/uL RBC 4.95 (4.30-5.90) m/uL Hgb 13.6 (13.0-17.5) gm/dL Hct 41.9 (39.0-53.0) % MCV 84.5 (80.0-100.0) fL MCH 27.5 (25.0-35.0) pg MCHC 32.6 (31.0-37.0) g/dL RDW 13.8 (11.5-15.5) % Plt Count 236 (150-450) k/uL Neutrophils % 59 % Lymphocytes % 26 % Monocytes % 7 % Eosinophils % 5 % Basophils % 1 % Neutrophils # 3.2 (1.3-7.7) k/uL Lymphocytes # 1.4 (1.0-4.8) k/uL Monocytes # 0.4 (0-1.0) k/uL Eosinophils # 0.3 (0-0.7) k/uL Basophils # 0.1 (0-0.2) k/uL PT 9.5 (9.0-12.0) sec INR 0.9 (<1.2) APTT 22.0 (22.0-30.0) sec Sodium (137-145) mmol/L Potassium (3.5-5.1) mmol/L Chloride (98-107) mmol/L Carbon Dioxide (22-30) mmol/L Anion Gap mmol/L BUN (9-20) mg/dL Creatinine (0.66-1.25) mg/dL Est GFR (CKD-EPI)AfAm (>60 ml/min/1.73 sqM) Est GFR (CKD-EPI)NonAf (>60 ml/min/1.73 sqM) Glucose (74-99) mg/dL Plasma Lactic Acid Edd (0.7-2.0) mmol/L Calcium (8.4-10.2) mg/dL Total Bilirubin (0.2-1.3) mg/dL AST (17-59) U/L ALT (4-49) U/L Alkaline Phosphatase (38-126) U/L Total Protein (6.3-8.2) g/dL Albumin (3.5-5.0) g/dL Amylase (30-110) U/L Lipase (23-300) U/L Urine Color Yellow Urine Appearance Clear (Clear) Urine pH 6.0 (5.0-8.0) Ur Specific [place] 1.025 (1.001-1.035) Urine Protein Negative (Negative) Urine Glucose (UA) 3+ H (Negative) Urine Ketones Negative (Negative) Urine Blood Negative (Negative) Urine Nitrite Negative (Negative) Urine Bilirubin Negative (Negative) Urine Urobilinogen <2.0 (<2.0) mg/dL Ur Leukocyte Esterase Negative (Negative) Stool Occult Blood (Negative) Blood Type Blood Type Recheck Bld Type Recheck Status Antibody Screen Spec Expiration Date 04/08/20 04/08/20 04/08/20 Range/Units 15:40 15:40 15:40 WBC (3.8-10.6) k/uL RBC (4.30-5.90) m/uL Hgb (13.0-17.5) gm/dL Hct (39.0-53.0) % MCV (80.0-100.0) fL MCH (25.0-35.0) pg MCHC (31.0-37.0) g/dL RDW (11.5-15.5) % Plt Count (150-450) k/uL Neutrophils % % Lymphocytes % % Monocytes % % Eosinophils % % Basophils % % Neutrophils # (1.3-7.7) k/uL Lymphocytes # (1.0-4.8) k/uL Monocytes # (0-1.0) k/uL Eosinophils # (0-0.7) k/uL Basophils # (0-0.2) k/uL PT (9.0-12.0) sec INR (<1.2) APTT (22.0-30.0) sec Sodium 138 (137-145) mmol/L Potassium 4.2 (3.5-5.1) mmol/L Chloride 109 H (98-107) mmol/L Carbon Dioxide 19 L (22-30) mmol/L Anion Gap 10 mmol/L BUN 12 (9-20) mg/dL Creatinine 0.56 L (0.66-1.25) mg/dL Est GFR (CKD-EPI)AfAm >90 (>60 ml/min/1.73 sqM) Est GFR (CKD-EPI)NonAf >90 (>60 ml/min/1.73 sqM) Glucose 139 H (74-99) mg/dL Plasma Lactic Acid Edd 1.8 (0.7-2.0) mmol/L Calcium 9.3 (8.4-10.2) mg/dL Total Bilirubin 0.5 (0.2-1.3) mg/dL AST 26 (17-59) U/L ALT 30 (4-49) U/L Alkaline Phosphatase 114 (38-126) U/L Total Protein 7.3 (6.3-8.2) g/dL Albumin 4.4 (3.5-5.0) g/dL Amylase 51 (30-110) U/L Lipase 35 (23-300) U/L Urine Color Urine Appearance (Clear) Urine pH (5.0-8.0) Ur Specific [place] (1.001-1.035) Urine Protein (Negative) Urine Glucose (UA) (Negative) Urine Ketones (Negative) Urine Blood (Negative) Urine Nitrite (Negative) Urine Bilirubin (Negative) Urine Urobilinogen (<2.0) mg/dL Ur Leukocyte Esterase (Negative) Stool Occult Blood (Negative) Blood Type O Positive Blood Type Recheck No Previous Record Bld Type Recheck Status CABO Indicated Antibody Screen NEGATIVE Spec Expiration Date 04/11/2020 - 233904/08/20 Range/Units 15:40 WBC (3.8-10.6) k/uL RBC (4.30-5.90) m/uL Hgb (13.0-17.5) gm/dL Hct (39.0-53.0) % MCV (80.0-100.0) fL MCH (25.0-35.0) pg MCHC (31.0-37.0) g/dL RDW (11.5-15.5) % Plt Count (150-450) k/uL Neutrophils % % Lymphocytes % % Monocytes % % Eosinophils % % Basophils % % Neutrophils # (1.3-7.7) k/uL Lymphocytes # (1.0-4.8) k/uL Monocytes # (0-1.0) k/uL Eosinophils # (0-0.7) k/uL Basophils # (0-0.2) k/uL PT (9.0-12.0) sec INR (<1.2) APTT (22.0-30.0) sec Sodium (137-145) mmol/L Potassium (3.5-5.1) mmol/L Chloride (98-107) mmol/L Carbon Dioxide (22-30) mmol/L Anion Gap mmol/L BUN (9-20) mg/dL Creatinine (0.66-1.25) mg/dL Est GFR (CKD-EPI)AfAm (>60 ml/min/1.73 sqM) Est GFR (CKD-EPI)NonAf (>60 ml/min/1.73 sqM) Glucose (74-99) mg/dL Plasma Lactic Acid Edd (0.7-2.0) mmol/L Calcium (8.4-10.2) mg/dL Total Bilirubin (0.2-1.3) mg/dL AST (17-59) U/L ALT (4-49) U/L Alkaline Phosphatase (38-126) U/L Total Protein (6.3-8.2) g/dL Albumin (3.5-5.0) g/dL Amylase (30-110) U/L Lipase (23-300) U/L Urine Color Urine Appearance (Clear) Urine pH (5.0-8.0) Ur Specific [place] (1.001-1.035) Urine Protein (Negative) Urine Glucose (UA) (Negative) Urine Ketones (Negative) Urine Blood (Negative) Urine Nitrite (Negative) Urine Bilirubin (Negative) Urine Urobilinogen (<2.0) mg/dL Ur Leukocyte Esterase (Negative) Stool Occult Blood Negative (Negative) Blood Type Blood Type Recheck Bld Type Recheck Status Antibody Screen Spec Expiration Date - Radiology Data All CT shows previous surgery and splenic flexure. Surgeries new compared old exam. Stranding in the pericolonic gutter and left upper quadrant could be postsurg ical changes. There is mild diverticulosis without definite sign of diverticulitis. Read by Dr. Cortes. (Vernell Siddiqui) Disposition Is patient prescribed a controlled substance at d/c from ED?: No Time of Disposition: 18:45 <Vernell Siddiqui - Last Filed: 04/08/20 18:40> <Yin Gusman - Last Filed: 04/08/20 23:57> Clinical Impression: Fever, Abdominal pain, Post-op pain Disposition: ADMITTED IP TO THIS HOSP Condition: Stable Referrals: Trav Muniz MD [Primary Care Provider] - 1-2 days
[2020-04-08 15:51] LABS: Basophils # (A) 0.1 k/uL (0-0.2); Basophils % (A) 1 %; Eosinophils # (A) 0.3 k/uL (0-0.7); Eosinophils % (A) 5 %; HCT 41.9 % (39.0-53.0); HGB 13.6 gm/dL (13.0-17.5); Lymphocytes # (A) 1.4 k/uL (1.0-4.8); Lymphocytes % (A) 26 %; MCH 27.5 pg (25.0-35.0); MCHC 32.6 g/dL (31.0-37.0); MCV 84.5 fL (80.0-100.0); Mean Platelet Volume 6.8; Monocytes # (A) 0.4 k/uL (0-1.0); Monocytes % (A) 7 %; Neutrophils # (A) 3.2 k/uL (1.3-7.7); Neutrophils % (A) 59 %; Platelet Count 236 k/uL (150-450); RBC 4.95 m/uL (4.30-5.90); RDW 13.8 % (11.5-15.5); WBC 5.4 k/uL (3.8-10.6)
[2020-04-08 16:00] LABS: ALT 30 U/L (4-49); AST 26 U/L (17-59); African American GFR (CKD) >90 (>60 ml/min/1.73 sqM); Albumin 4.4 g/dL (3.5-5.0); Alkaline Phosphatase 114 U/L (38-126); Amylase 51 U/L (30-110); Anion Gap 10 mmol/L; Blood Urea Nitrogen 12 mg/dL (9-20); Calcium 9.3 mg/dL (8.4-10.2); Carbon Dioxide 19 mmol/L (22-30); Chloride 109 mmol/L (98-107); Glucose 139 mg/dL (74-99); Non-African American GFR(CKD) >90 (>60 ml/min/1.73 sqM); Potassium 4.2 mmol/L (3.5-5.1); Sodium 138 mmol/L (137-145); Total Bilirubin 0.5 mg/dL (0.2-1.3); Total Protein 7.3 g/dL (6.3-8.2)
[2020-04-08] MEDS ORDERED: ACETAMINOPHEN TAB 500 MG TAB PO STA (16:03)
[2020-04-08 16:04] LABS: INR 0.9 (<1.2); Prothrombin Time 9.5 sec (9.0-12.0)
[2020-04-08] MEDS ORDERED: HYDROmorphone 1 MG/ML 1 ML SYRINGE IVP STA ×2 (16:48→19:21)
--- NOTE | 2020-04-08 17:16 | CT ---
EXAMINATION TYPE: CT abdomen pelvis w con DATE OF EXAM: 04/08/2020 COMPARISON: 10/13/2019 HISTORY: Abdominal pain and black stool CT DLP: 09721.8 mGycm Automated exposure control for dose reduction was used. CONTRAST: Performed with IV Contrast, patient injected with 100 mL of Isovue 300. Lung bases are clear. There is no pleural effusion. Heart size is normal. There is no pericardial eff usion. Liver spleen pancreas stomach appear normal. Bile ducts are nondilated. There are clips from c holecystectomy. There are surgical clips at the splenic flexure of the colon. There is no adrenal mass. There is 3 cm cyst anterior right kidney. There is normal contrast opacific ation. There is no hydronephrosis. Delayed images show fairly normal renal excretion. Ureters are not dilated. There is no retroperitoneal adenopathy. Bladder distends smoothly. There is no inguinal her malini. There is no free fluid in the pelvis. There is multilevel posterior fusion surgery from L3 to S1 with rods and screws. There is multilevel laminectomy defect. There are some minimal subcutaneous density at the umbilicus consistent with post surgical changes. Appendix is not seen. There is no sign of thickened appendix. The urinary bladder is somewhat dilated and measures 14.5 cm in length. There is no mesenteric edema. There is no ascites. There is no evidence of free air. There are a few sigmoid diverticula. There is minimal fat stranding in the left paracolic gutter. There is no bowel o bstruction. IMPRESSION: Previous surgery at the splenic flexure of the colon. Surgery is new compared to old exam. Fat strand ing in the paracolic gutter and left upper quadrant could be postsurgical changes. There is mild dive rticulosis without definite sign for diverticulitis.
[2020-04-08 17:22] LABS: Appearance,Urine Clear (Clear); Bilirubin,Urine Negative (Negative); Blood,Urine Negative (Negative); Color,Urine Yellow; Glucose,Urine (UA) 3+ (Negative); Ketones,Urine Negative (Negative); Leukocyte Esterase,Urine Negative (Negative); Nitrite,Urine Negative (Negative); Protein,Urine Negative (Negative); Specific Gravity,Urine 1.025 (1.001-1.035); Urobilinogen,Urine <2.0 mg/dL (<2.0)
[2020-04-08] MEDS ORDERED: PIPERACILLIN-TAZOBACTAM 3.375 GM in SODIUM CHLORIDE 0.9% 100 ML IVPB STA (18:26)
[2020-04-08 18:40] VITALS: BP 174/86; PULSE 86
== END 2020-04-08 19:57 | disposition other institution (70) ==
LOC: EC 14:26
DX: G89.18 Other acute postprocedural pain (principal); R10.9 Unspecified abdominal pain; R50.9 Fever, unspecified; R11.2 Nausea with vomiting, unspecified; I10 Essential (primary) hypertension; E78.5 Hyperlipidemia, unspecified; E11.9 Type 2 diabetes mellitus without complications; K21.9 Gastro-esophageal reflux disease without esophagitis; J44.9 Chronic obstructive pulmonary disease, unspecified; I25.2 Old myocardial infarction; G47.33 Obstructive sleep apnea (adult) (pediatric); Z79.4 Long term (current) use of insulin; Z79.899 Other long term (current) drug therapy; Z79.02 Long term (current) use of antithrombotics/antiplatelets; Z88.1 Allergy status to other antibiotic agents; Z88.5 Allergy status to narcotic agent; Z88.8 Allergy status to other drugs, medicaments and biological substances; Z86.711 Personal history of pulmonary embolism; Z99.89 Dependence on other enabling machines and devices; Z85.72 Personal history of non-Hodgkin lymphomas
CPT/HCPCS: 36415; 86900; 86901; 80053; 82150; 83605; 83690; 85025; 85610; 85730; 86850; 82272; 81003; 87040; 74177; 99285; 96365; 96375 ×3; 96376; 96361 ×4; J2543; J2405; J1170 ×2; C9113; Q9967

== ENCOUNTER 2020-05-07 09:51 | Emergency (ER) | payer OTHER ==
[2020-05-07] MEDS ORDERED: SODIUM CHLORIDE 0.9% 1,000 ML IV STA (10:08)
[2020-05-07] MEDS ORDERED: HYDROmorphone 0.5 MG/0.5 ML SYRINGE IVP STA ×2 (10:29→11:59)
[2020-05-07] MEDS ORDERED: ONDANSETRON 4 MG/2 ML VIAL IVP STA (10:29)
--- NOTE | 2020-05-07 10:33 | ED ---
Abdominal Pain HPI - General Chief Complaint: Abdominal Pain Stated Complaint: abd pain/nausea/vomiting Time Seen by Provider: 05/07/20 10:05 Source: patient, RN notes reviewed Mode of arrival: ambulatory Limitations: no limitations - History of Present Illness Initial Comments: 54-year-old male presents emergency Department chief complaint of left-sided abdominal pain. Patient states that he had this pain one month ago and was evaluated by his surgeon and they told him that he has some narrowing and he can have intermittent pain but there is no surgical knee. Patient is 2 months postoperative for cancerous mass and intussusception on the left side of his colon. Patient states that she's been having bowel movements he states that he gets backed up and causes pain. He did have some nausea and reports no significant fever currently denies any chest pain, headache, dizziness, shortness of breath. Patient states he has no dysuria no hematuria he states he has dark stools but was told this was normal and he also was evaluated for this one month ago. - Related Data Home Medications Medication Instructions Recorded Confirmed Omeprazole [PriLOSEC] 20 mg PO DAILY 12/11/17 05/07/20 Carvedilol [Coreg] 12.5 mg PO BID 07/22/19 05/07/20 glipiZIDE XL [Glucotrol XL] 5 mg PO BID 07/22/19 05/07/20 Atorvastatin [Lipitor] 20 mg PO DAILY 08/26/19 05/07/20 Insulin Glargine,Hum.rec.anlog 30 unit SQ BID 08/26/19 05/07/20 [Basaglar Kwikpen U-100] Gabapentin [Neurontin] 300 mg PO BID 10/12/19 05/07/20 INSULIN LISPRO (HumaLOG) [humaLOG] 10 unit SQ TID-W/MEALS 02/16/20 05/07/20 Simethicone Chew [Mylicon Chew] 80 mg PO BID PRN 04/08/20 05/07/20 Tamsulosin [Flomax] 0.4 mg PO DAILY 04/08/20 05/07/20 Dicyclomine HCl 20 mg PO QID PRN 05/07/20 05/07/20 Mag Hydrox/Aluminum Hyd/Simeth 10 - 20 ml PO ACHS PRN 05/07/20 05/07/20 [Mylanta Maximum Strength Liq] Ondansetron [Zofran] 4 mg PO Q6H PRN 05/07/20 05/07/20 methocarbamoL [Robaxin] 750 mg PO TID PRN 05/07/20 05/07/20 oxyCODONE-APAP 7.5-325MG [Percocet 1 tab PO Q6HR PRN 05/07/20 05/07/20 7.5-325 mg] Previous Rx's Medication Instructions Recorded Aspirin 325 mg PO DAILY 30 Days #30 tab 09/02/19 lisinopriL [Zestril] 10 mg PO DAILY #30 tab 02/17/20 Sennosides/Docusate Sodium [Senna 1 each PO BID PRN #10 tablet 05/07/20 Plus 8.6-50 mg Tablet] Allergies Allergy/AdvReac Type Severity Reaction Status Date / Time doxycycline Allergy Swelling Verified 05/07/20 10:04 ketorolac tromethamine Allergy Rash/Hives Verified 05/07/20 10:04 [From Toradol] morphine Allergy Rash/Hives Verified 05/07/20 10:04 metoclopramide HCl AdvReac Dystonic Verified 05/07/20 10:04 [From Reglan] Reaction prochlorperazine edisylate AdvReac Dystonic Verified 05/07/20 10:04 [From Compazine] Reaction prochlorperazine maleate AdvReac Dystonic Verified 05/07/20 10:04 [From Compazine] Reaction Review of Systems ROS Statement: Those systems with pertinent positive or pertinent negative responses have been documented in the HPI. ROS Other: All systems not noted in ROS Statement are negative. Past Medical History Past Medical History: Asthma, Chest Pain / Angina, Diabetes Mellitus, GERD/Reflux, Hyperlipidemia, Hypertension, Myocardial Infarction (NC), Mitral Valve Prolapse (MVP), Pulmonary Embolus (PE), Sleep Apnea/CPAP/BIPAP Additional Past Medical History / Comment(s): Obesity, chronic asthmatic bronchitis, previous history of pulmonary embolism, objective sleep apnea, diabetes mellitus, hypertension, hyperlipidemia, previous history of myocardial infarction with underlying coronary artery disease, renal cysts, chronic back pain secondary to herniated lumbar disc disease with symptoms of sciatica, history of right lower extremity fracture at the age of 13, history of C. diff colitis approximately 4 years ago, history of bleeding peptic ulcer, nephrolithiasis, previous history of UTI and secondary sepsis. Last Myocardial Infarction Date:: 2011 History of Any Multi-Drug Resistant Organisms: MRSA Date of last positivie culture/infection: 2015 MDRO Source:: left axilla Past Surgical History: Appendectomy, Back Surgery, Cholecystectomy, Heart Catheterization, Hernia Repair Additional Past Surgical History / Comment(s): 2007 back surgery with decompression fusion at [facility], 2011, 2016 cardiac cath, multiple ESWL/ureteral stents/ double J catheters, L inquinal hernia repair, PICC line for ABX for urosepsis-since removed., spinal stimulator and lumbar laminectomy 12/27. Colectomy February 2020 Past Anesthesia/Blood Transfusion Reactions: No Reported Reaction Past Psychological History: No Psychological Hx Reported Smoking Status: Never smoker Past Alcohol Use History: None Reported Past Drug Use History: None Reported - Past Family History Father Family Medical History: Chest Pain / Angina Additional Family Medical History / Comment(s): "lung problems" Mother Family Medical History: Cancer, Chest Pain / Angina, Congestive Heart Failure (CHF), Osteoarthritis (OA), Thyroid Disorder General Exam Limitations: no limitations General appearance: alert, in no apparent distress Head exam: Present: atraumatic, normocephalic, normal inspection Eye exam: Present: normal appearance, PERRL, EOMI. Absent: scleral icterus, conjunctival injection, periorbital swelling ENT exam: Present: normal exam, mucous membranes moist Neck exam: Present: normal inspection, full ROM. Absent: tenderness, meningismus, lymphadenopathy Respiratory exam: Present: normal lung sounds bilaterally. Absent: respiratory distress, wheezes, rales, rhonchi, stridor Cardiovascular Exam: Present: regular rate, normal rhythm, normal heart sounds. Absent: systolic murmur, diastolic murmur, rubs, gallop, clicks GI/Abdominal exam: Present: soft, tenderness (Mild left-sided, healed incision noted), normal bowel sounds. Absent: distended, guarding, rebound, rigid Back exam: Absent: CVA tenderness (R), CVA tenderness (L) Neurological exam: Present: alert, oriented X3 Course Vital Signs 05/07/20 05/07/20 05/07/20 10:01 11:07 11:41 Temperature 97.6 F Pulse Rate 94 86 82 Respiratory 18 18 16 Rate Blood Pressure 160/89 169/109 188/109 O2 Sat by Pulse 100 98 100 Oximetry Medical Decision Making - Medical Decision Making Patient's labs are unremarkable. Patient's symptoms are consistent with prior postsurgical changes. Patient's symptoms are consistent when he was evaluated by his surgeon and was told this was getting ongoing issue. Patient will be discharged in stable condition return parameters were discussed. Patient does have some mild ileus, stool occult up on the left side. Patient states is what happened last time. - Lab Data Result diagrams: 05/07/20 11:07 05/07/20 11:07 Lab Results 05/07/20 05/07/20 05/07/20 Range/Units 11:00 11:07 11:07 WBC 7.5 (3.8-10.6) k/uL RBC 4.75 (4.30-5.90) m/uL Hgb 13.2 (13.0-17.5) gm/dL Hct 39.9 (39.0-53.0) % MCV 83.9 (80.0-100.0) fL MCH 27.8 (25.0-35.0) pg MCHC 33.2 (31.0-37.0) g/dL RDW 14.0 (11.5-15.5) % Plt Count 315 (150-450) k/uL Neutrophils % 78 % Lymphocytes % 15 % Monocytes % 3 % Eosinophils % 3 % Basophils % 0 % Neutrophils # 5.8 (1.3-7.7) k/uL Lymphocytes # 1.1 (1.0-4.8) k/uL Monocytes # 0.2 (0-1.0) k/uL Eosinophils # 0.2 (0-0.7) k/uL Basophils # 0.0 (0-0.2) k/uL PT 9.6 (9.0-12.0) sec INR 0.9 (<1.2) APTT 22.0 (22.0-30.0) sec Sodium (137-145) mmol/L Potassium (3.5-5.1) mmol/L Chloride (98-107) mmol/L Carbon Dioxide (22-30) mmol/L Anion Gap mmol/L BUN (9-20) mg/dL Creatinine (0.66-1.25) mg/dL Est GFR (CKD-EPI)AfAm (>60 ml/min/1.73 sqM) Est GFR (CKD-EPI)NonAf (>60 ml/min/1.73 sqM) Glucose (74-99) mg/dL Plasma Lactic Acid Edd (0.7-2.0) mmol/L Calcium (8.4-10.2) mg/dL Total Bilirubin (0.2-1.3) mg/dL AST (17-59) U/L ALT (4-49) U/L Alkaline Phosphatase (38-126) U/L Total Protein (6.3-8.2) g/dL Albumin (3.5-5.0) g/dL Amylase (30-110) U/L Lipase (23-300) U/L Urine Color Yellow Urine Appearance Clear (Clear) Urine pH 8.0 (5.0-8.0) Ur Specific Crane 1.019 (1.001-1.035) Urine Protein Negative (Negative) Urine Glucose (UA) 1+ H (Negative) Urine Ketones Negative (Negative) Urine Blood Negative (Negative) Urine Nitrite Negative (Negative) Urine Bilirubin Negative (Negative) Urine Urobilinogen <2.0 (<2.0) mg/dL Ur Leukocyte Esterase Negative (Negative) 05/07/20 05/07/20 Range/Units 11:07 11:07 WBC (3.8-10.6) k/uL RBC (4.30-5.90) m/uL Hgb (13.0-17.5) gm/dL Hct (39.0-53.0) % MCV (80.0-100.0) fL MCH (25.0-35.0) pg MCHC (31.0-37.0) g/dL RDW (11.5-15.5) % Plt Count (150-450) k/uL Neutrophils % % Lymphocytes % % Monocytes % % Eosinophils % % Basophils % % Neutrophils # (1.3-7.7) k/uL Lymphocytes # (1.0-4.8) k/uL Monocytes # (0-1.0) k/uL Eosinophils # (0-0.7) k/uL Basophils # (0-0.2) k/uL PT (9.0-12.0) sec INR (<1.2) APTT (22.0-30.0) sec Sodium 137 (137-145) mmol/L Potassium 4.0 (3.5-5.1) mmol/L Chloride 104 (98-107) mmol/L Carbon Dioxide 23 (22-30) mmol/L Anion Gap 10 mmol/L BUN 10 (9-20) mg/dL Creatinine 0.68 (0.66-1.25) mg/dL Est GFR (CKD-EPI)AfAm >90 (>60 ml/min/1.73 sqM) Est GFR (CKD-EPI)NonAf >90 (>60 ml/min/1.73 sqM) Glucose 168 H (74-99) mg/dL Plasma Lactic Acid Edd 1.2 (0.7-2.0) mmol/L Calcium 10.0 (8.4-10.2) mg/dL Total Bilirubin 0.6 (0.2-1.3) mg/dL AST 21 (17-59) U/L ALT 29 (4-49) U/L Alkaline Phosphatase 115 (38-126) U/L Total Protein 7.5 (6.3-8.2) g/dL Albumin 4.4 (3.5-5.0) g/dL Amylase 52 (30-110) U/L Lipase 65 (23-300) U/L Urine Color Urine Appearance (Clear) Urine pH (5.0-8.0) Ur Specific Crane (1.001-1.035) Urine Protein (Negative) Urine Glucose (UA) (Negative) Urine Ketones (Negative) Urine Blood (Negative) Urine Nitrite (Negative) Urine Bilirubin (Negative) Urine Urobilinogen (<2.0) mg/dL Ur Leukocyte Esterase (Negative) Disposition Clinical Impression: Abdominal pain Disposition: HOME SELF-CARE Condition: Stable Instructions (If sedation given, give patient instructions): Abdominal Pain (ED) Additional Instructions: Please return to the Emergency Department if symptoms worsen or any other concerns. Prescriptions: Sennosides/Docusate Sodium [Senna Plus 8.6-50 mg Tablet] 1 each PO BID PRN #10 tablet PRN Reason: Constipation Is patient prescribed a controlled substance at d/c from ED?: No Referrals: Trav Muniz MD [Primary Care Provider] - 1-2 days Time of Disposition: 12:02
[2020-05-07 11:13] LABS: Basophils % (A) 0 %; Eosinophils # (A) 0.2 k/uL (0-0.7); Eosinophils % (A) 3 %; HCT 39.9 % (39.0-53.0); HGB 13.2 gm/dL (13.0-17.5); Lymphocytes # (A) 1.1 k/uL (1.0-4.8); Lymphocytes % (A) 15 %; MCH 27.8 pg (25.0-35.0); MCHC 33.2 g/dL (31.0-37.0); MCV 83.9 fL (80.0-100.0); Mean Platelet Volume 6.7; Monocytes # (A) 0.2 k/uL (0-1.0); Monocytes % (A) 3 %; Neutrophils # (A) 5.8 k/uL (1.3-7.7); Neutrophils % (A) 78 %; Platelet Count 315 k/uL (150-450); RBC 4.75 m/uL (4.30-5.90); WBC 7.5 k/uL (3.8-10.6)
[2020-05-07 11:21] LABS: ALT 29 U/L (4-49); AST 21 U/L (17-59); African American GFR (CKD) >90 (>60 ml/min/1.73 sqM); Albumin 4.4 g/dL (3.5-5.0); Alkaline Phosphatase 115 U/L (38-126); Amylase 52 U/L (30-110); Anion Gap 10 mmol/L; Blood Urea Nitrogen 10 mg/dL (9-20); Carbon Dioxide 23 mmol/L (22-30); Chloride 104 mmol/L (98-107); Glucose 168 mg/dL (74-99); Lipase 65 U/L (23-300); Non-African American GFR(CKD) >90 (>60 ml/min/1.73 sqM); Sodium 137 mmol/L (137-145); Total Bilirubin 0.6 mg/dL (0.2-1.3); Total Protein 7.5 g/dL (6.3-8.2)
[2020-05-07 11:23] LABS: INR 0.9 (<1.2); Prothrombin Time 9.6 sec (9.0-12.0)
--- NOTE | 2020-05-07 11:24 | XR ---
KUB HISTORY: Pain, nausea Frontal KUB and 2 images correlated to prior KUB 02/17/2020 Instrumentation is stable. Lung bases are clear. No evident bowel obstruction or pneumoperitoneum. Ca lcifications are unchanged in the pelvis. There are some air-fluid levels without bowel distention. IMPRESSION: There may be underlying ileus or enteritis, follow-up as indicated
[2020-05-07 11:44] LABS: Appearance,Urine Clear (Clear); Bilirubin,Urine Negative (Negative); Blood,Urine Negative (Negative); Color,Urine Yellow; Glucose,Urine (UA) 1+ (Negative); Ketones,Urine Negative (Negative); Leukocyte Esterase,Urine Negative (Negative); Nitrite,Urine Negative (Negative); Protein,Urine Negative (Negative); Specific Gravity,Urine 1.019 (1.001-1.035); Urobilinogen,Urine <2.0 mg/dL (<2.0)
[2020-05-07] MEDS ORDERED: DOCUSATE 283 MG/5 ML ENEMA RECTAL STA (11:59)
[2020-05-07 12:29] VITALS: BP 169/109; PULSE 86; RESP 18; TEMP 98.3
== END 2020-05-07 12:28 | disposition home or self-care (01) ==
LOC: EC 09:51
DX: R10.9 Unspecified abdominal pain (principal); K56.7 Ileus, unspecified; I10 Essential (primary) hypertension; I25.119 Atherosclerotic heart disease of native coronary artery with unspecified angina pectoris; E11.9 Type 2 diabetes mellitus without complications; E78.5 Hyperlipidemia, unspecified; K21.9 Gastro-esophageal reflux disease without esophagitis; G89.29 Other chronic pain; M54.9 Dorsalgia, unspecified; G47.33 Obstructive sleep apnea (adult) (pediatric); I25.2 Old myocardial infarction; Z79.899 Other long term (current) drug therapy; Z79.4 Long term (current) use of insulin; Z88.1 Allergy status to other antibiotic agents; Z88.6 Allergy status to analgesic agent; Z88.5 Allergy status to narcotic agent; Z88.8 Allergy status to other drugs, medicaments and biological substances; Z86.711 Personal history of pulmonary embolism; Z90.89 Acquired absence of other organs; Z90.49 Acquired absence of other specified parts of digestive tract; Z99.89 Dependence on other enabling machines and devices
CPT/HCPCS: 36415; 80053; 82150; 83605; 83690; 85025; 85610; 85730; 81003; 74018; 99284; 96374; 96375; 96376; 96361; J2405; J1170

== ENCOUNTER 2020-05-19 18:19 | Emergency (ER) | payer OTHER ==
[2020-05-19] MEDS ORDERED: PANTOPRAZOLE 40 MG/10 ML VIAL IVP STA (21:39)
[2020-05-19] MEDS ORDERED: HYDROmorphone 0.5 MG/0.5 ML SYRINGE IVP STA (21:39)
--- NOTE | 2020-05-19 21:56 | XR ---
EXAMINATION TYPE: XR chest 2V DATE OF EXAM: 05/19/2020 COMPARISON: 02/16/2020 HISTORY: Chest pain TECHNIQUE: FINDINGS: Heart and mediastinum are normal. Lungs are clear. Diaphragm is normal. Bony thorax is inta ct. There is neural stimulator in the lower thoracic spine. IMPRESSION: No active cardiopulmonary disease. Normal heart. No change.
[2020-05-19 23:10] LABS: Basophils # (A) 0.1 k/uL (0-0.2); Basophils % (A) 1 %; Eosinophils # (A) 0.3 k/uL (0-0.7); Eosinophils % (A) 3 %; HCT 36.9 % (39.0-53.0); HGB 12.7 gm/dL (13.0-17.5); Lymphocytes # (A) 1.5 k/uL (1.0-4.8); Lymphocytes % (A) 17 %; MCH 28.5 pg (25.0-35.0); MCHC 34.4 g/dL (31.0-37.0); MCV 82.8 fL (80.0-100.0); Mean Platelet Volume 6.6; Monocytes # (A) 0.4 k/uL (0-1.0); Monocytes % (A) 5 %; Neutrophils # (A) 6.1 k/uL (1.3-7.7); Neutrophils % (A) 72 %; Platelet Count 262 k/uL (150-450); RBC 4.45 m/uL (4.30-5.90); RDW 14.2 % (11.5-15.5); WBC 8.4 k/uL (3.8-10.6)
--- NOTE | 2020-05-19 23:12 | ED ---
General Adult HPI - General Source: patient Mode of arrival: wheelchair Limitations: no limitations <Felicity Wiley - Last Filed: 05/19/20 23:08> <Edmond Hernandez - Last Filed: 05/20/20 01:14> - General Chief complaint: Shortness of Breath Stated complaint: SOB Time Seen by Provider: 05/19/20 21:20 - History of Present Illness Initial comments: 54-year-old male presenting today for chief complaint of abdominal pain x 2 weeks. Patient states ever since he had a mass removed from his abdomen that was found be cancerous however he did not need any chemotherapy or radiation he states that he has had chronic on and off abdominal pain. Patient does endorse some shortness of breath and the pain is very intense. He states when he is resting he has no shortness of breath or if he is not moving. Patient states it does not feel like "lungs shortness of breath. He denies any chest pain. Deep inspiration leg swelling or calf pain.. Patient denies any bloody stools dark stools vomiting hematemesis. Patient states she has had nausea this week and was evaluated last week and had an x-ray which showed an ileus. Patient does endorse loose stools he denies constipation. patient denies additional complaints and upon arrival he does appear well nontoxic in no acute respiratory distress. (Felicity Wiley) - Related Data Home Medications Medication Instructions Recorded Confirmed Omeprazole [PriLOSEC] 20 mg PO DAILY 12/11/17 05/19/20 Carvedilol [Coreg] 12.5 mg PO BID 07/22/19 05/19/20 glipiZIDE XL [Glucotrol XL] 5 mg PO BID 07/22/19 05/19/20 Atorvastatin [Lipitor] 20 mg PO DAILY 08/26/19 05/19/20 Insulin Glargine,Hum.rec.anlog 30 unit SQ BID 08/26/19 05/19/20 [Basaglar Kwikpen U-100] Gabapentin [Neurontin] 300 mg PO BID 10/12/19 05/19/20 INSULIN LISPRO (HumaLOG) [humaLOG] 10 unit SQ TID-W/MEALS 02/16/20 05/19/20 Simethicone Chew [Mylicon Chew] 80 mg PO BID PRN 04/08/20 05/19/20 Tamsulosin [Flomax] 0.4 mg PO DAILY 04/08/20 05/19/20 Dicyclomine HCl 20 mg PO QID PRN 05/07/20 05/19/20 Mag Hydrox/Aluminum Hyd/Simeth 10 - 20 ml PO ACHS PRN 05/07/20 05/19/20 [Mylanta Maximum Strength Liq] Ondansetron [Zofran] 4 mg PO Q6H PRN 05/07/20 05/19/20 methocarbamoL [Robaxin] 750 mg PO TID PRN 05/07/20 05/19/20 oxyCODONE-APAP 7.5-325MG [Percocet 1 tab PO Q6HR PRN 05/07/20 05/19/20 7.5-325 mg] Previous Rx's Medication Instructions Recorded Aspirin 325 mg PO DAILY 30 Days #30 tab 09/02/19 lisinopriL [Zestril] 10 mg PO DAILY #30 tab 02/17/20 Sennosides/Docusate Sodium [Senna 1 each PO BID PRN #10 tablet 05/07/20 Plus 8.6-50 mg Tablet] Allergies Allergy/AdvReac Type Severity Reaction Status Date / Time doxycycline Allergy Swelling Verified 05/19/20 23:42 ketorolac tromethamine Allergy Rash/Hives Verified 05/19/20 23:42 [From Toradol] morphine Allergy Rash/Hives Verified 05/19/20 23:42 metoclopramide HCl AdvReac Dystonic Verified 05/19/20 23:42 [From Reglan] Reaction prochlorperazine edisylate AdvReac Dystonic Verified 05/19/20 23:42 [From Compazine] Reaction prochlorperazine maleate AdvReac Dystonic Verified 05/19/20 23:42 [From Compazine] Reaction Review of Systems ROS Other: All systems not noted in ROS Statement are negative. <Felicity Wiley - Last Filed: 05/19/20 23:08> ROS Other: All systems not noted in ROS Statement are negative. <Edmond Hernandez - Last Filed: 05/20/20 01:14> ROS Statement: Those systems with pertinent positive or pertinent negative responses have been documented in the HPI. Past Medical History Past Medical History: Asthma, Chest Pain / Angina, Diabetes Mellitus, GERD/Reflux, Hyperlipidemia, Hypertension, Myocardial Infarction (MS), Mitral Valve Prolapse (MVP), Pulmonary Embolus (PE), Sleep Apnea/CPAP/BIPAP Additional Past Medical History / Comment(s): Obesity, chronic asthmatic bronchitis, previous history of pulmonary embolism, objective sleep apnea, diab etes mellitus, hypertension, hyperlipidemia, previous history of myocardial infarction with underlying coronary artery disease, renal cysts, chronic back pain secondary to herniated lumbar disc disease with symptoms of sciatica, history of right lower extremity fracture at the age of 13, history of C. diff colitis approximately 4 years ago, history of bleeding peptic ulcer, nephrolithiasis, previous history of UTI and secondary sepsis. Last Myocardial Infarction Date:: 2011 History of Any Multi-Drug Resistant Organisms: MRSA Date of last positivie culture/infection: 2016 MDRO Source:: left axilla Past Surgical History: Appendectomy, Back Surgery, Cholecystectomy, Heart Catheterization, Hernia Repair Additional Past Surgical History / Comment(s): 2007 back surgery with decompression fusion at [facility], 2011, 2016 cardiac cath, multiple ESWL/ureteral stents/ double J catheters, L inquinal hernia repair, PICC line for ABX for urosepsis-since removed., spinal stimulator and lumbar laminectomy 12/27. Colectomy February 2020 Past Anesthesia/Blood Transfusion Reactions: No Reported Reaction Past Psychological History: No Psychological Hx Reported Smoking Status: Never smoker Past Alcohol Use History: None Reported Past Drug Use History: None Reported - Past Family History Father Family Medical History: Chest Pain / Angina Additional Family Medical History / Comment(s): "lung problems" Mother Family Medical History: Cancer, Chest Pain / Angina, Congestive Heart Failure (CHF), Osteoarthritis (OA), Thyroid Disorder <Felicity Wiley L - Last Filed: 05/19/20 23:08> General Exam Limitations: no limitations <Felicity Wiley - Last Filed: 05/19/20 23:08> - General Exam Comments Initial Comments: General: The patient is awake and alert, in no distress Eye: +3 mm pupils are equal, round and reactive to light, extra-ocular movements are intact. No nystagmus. There is normal conjunctiva bilaterally. No signs of icterus. Ears, nose, mouth and throat: There are moist mucous membranes and no oral lesions. Neck: The neck is supple, there is no tenderness or JVD. Cardiovascular: There is a regular rate and rhythm. No murmur, rub or gallop is appreciated. Respiratory: Lungs are clear to auscultation, respirations are non-labored, breath sounds are equal. No wheezes, stridor, rales, or rhonchi. Gastrointestinal: Soft, non-distended, Left mid abdominal tenderness to palpation, abdomlen without masses or organomegaly noted. There is no rebound or guarding present. Musculoskeletal: Normal ROM, no tenderness. Strength 5/5. Sensation intact. Radial pulses equal bilaterally 2+. Neurological: A&O x 3. CN II-XII intact, There are no obvious motor or sensory deficits. Coordination appears grossly intact. Speech is normal. Skin: Skin is warm and dry and no rashes or lesions are noted. Psychiatric: Cooperative, appropriate mood & affect, normal judgment. (Felicity Wiley) Course Vital Signs 05/19/20 05/19/20 05/19/20 18:21 20:53 22:05 Temperature 99.3 F 97.9 F Pulse Rate 92 83 82 Respiratory 22 20 18 Rate Blood Pressure 125/76 134/79 140/77 O2 Sat by Pulse 98 99 100 Oximetry 05/19/20 05/19/20 23:00 23:59 Temperature 98.5 F Pulse Rate 78 79 Respiratory 18 18 Rate Blood Pressure 143/70 147/66 O2 Sat by Pulse 99 100 Oximetry EKG Findings - EKG Results: EKG: interpreted by ERMD, sinus rhythm, normal axis, normal QRS, normal ST/T - Blocks, [place], Hypertrophy, ST Abn: Repolarization changes or abnormalities: Q-T interval prolongation <Edmond Hernandez - Last Filed: 05/20/20 01:14> Medical Decision Making <Felicity Wiley - Last Filed: 05/19/20 23:08> - Lab Data Result diagrams: 05/19/20 22:56 05/19/20 22:56 <Edmond Hernandez - Last Filed: 05/20/20 01:14> - Medical Decision Making 54yo male presenting for cc of abdominal pain. Patient brought back after 3+ hours in waiting room. VS stable. Patient was a hard stick and Dr. Leiva performed US guided. 11PM was shift change, patient case discussed with Dr. Hernandez who will take patient as sign out. (Felicity Wiley) I saw this patient in conjunction with the physician certified teacher assistant. I performed independent history and physical exam. Agree with case management. I followed up with the patient and reviewed the study results. The patient is feeling a bit better following the analgesic medication. We discussed appropriate further care and follow-up and the patient would like to follow with the gastrologist he is known to through [facility]. Also discussed that he has had recent known covid exposure and discussed appropriate return parametersfor both abdominal pain and for possible covid exposure (Edmond Hernandez) - Lab Data Lab Results 05/19/20 05/19/20 05/19/20 Range/Units 22:56 22:56 22:56 WBC 8.4 (3.8-10.6) k/uL RBC 4.45 (4.30-5.90) m/uL Hgb 12.7 L (13.0-17.5) gm/dL Hct 36.9 L (39.0-53.0) % MCV 82.8 (80.0-100.0) fL MCH 28.5 (25.0-35.0) pg MCHC 34.4 (31.0-37.0) g/dL RDW 14.2 (11.5-15.5) % Plt Count 262 (150-450) k/uL MPV 6.6 Neutrophils % 72 % Lymphocytes % 17 % Monocytes % 5 % Eosinophils % 3 % Basophils % 1 % Neutrophils # 6.1 (1.3-7.7) k/uL Lymphocytes # 1.5 (1.0-4.8) k/uL Monocytes # 0.4 (0-1.0) k/uL Eosinophils # 0.3 (0-0.7) k/uL Basophils # 0.1 (0-0.2) k/uL PT 9.7 (9.0-12.0) sec INR 0.9 (<1.2) APTT 20.7 L (22.0-30.0) sec Sodium 134 L (137-145) mmol/L Potassium 4.1 (3.5-5.1) mmol/L Chloride 104 (98-107) mmol/L Carbon Dioxide 23 (22-30) mmol/L Anion Gap 7 mmol/L BUN 17 (9-20) mg/dL Creatinine 0.75 (0.66-1.25) mg/dL Est GFR (CKD-EPI)AfAm >90 (>60 ml/min/1.73 sqM) Est GFR (CKD-EPI)NonAf >90 (>60 ml/min/1.73 sqM) Glucose 134 H (74-99) mg/dL Calcium 9.3 (8.4-10.2) mg/dL Magnesium 2.0 (1.6-2.3) mg/dL Total Bilirubin 0.8 (0.2-1.3) mg/dL AST 24 (17-59) U/L ALT 48 (4-49) U/L Alkaline Phosphatase 104 (38-126) U/L Troponin I (0.000-0.034) ng/mL NT-Pro-B Natriuret Pep pg/mL Total Protein 7.2 (6.3-8.2) g/dL Albumin 4.3 (3.5-5.0) g/dL Lipase 74 (23-300) U/L 05/19/20 05/19/20 Range/Units 22:56 22:56 WBC (3.8-10.6) k/uL RBC (4.30-5.90) m/uL Hgb (13.0-17.5) gm/dL Hct (39.0-53.0) % MCV (80.0-100.0) fL MCH (25.0-35.0) pg MCHC (31.0-37.0) g/dL RDW (11.5-15.5) % Plt Count (150-450) k/uL MPV Neutrophils % % Lymphocytes % % Monocytes % % Eosinophils % % Basophils % % Neutrophils # (1.3-7.7) k/uL Lymphocytes # (1.0-4.8) k/uL Monocytes # (0-1.0) k/uL Eosinophils # (0-0.7) k/uL Basophils # (0-0.2) k/uL PT (9.0-12.0) sec INR (<1.2) APTT (22.0-30.0) sec Sodium (137-145) mmol/L Potassium (3.5-5.1) mmol/L Chloride (98-107) mmol/L Carbon Dioxide (22-30) mmol/L Anion Gap mmol/L BUN (9-20) mg/dL Creatinine (0.66-1.25) mg/dL Est GFR (CKD-EPI)AfAm (>60 ml/min/1.73 sqM) Est GFR (CKD-EPI)NonAf (>60 ml/min/1.73 sqM) Glucose (74-99) mg/dL Calcium (8.4-10.2) mg/dL Magnesium (1.6-2.3) mg/dL Total Bilirubin (0.2-1.3) mg/dL AST (17-59) U/L ALT (4-49) U/L Alkaline Phosphatase (38-126) U/L Troponin I <0.012 (0.000-0.034) ng/mL NT-Pro-B Natriuret Pep <11 pg/mL Total Protein (6.3-8.2) g/dL Albumin (3.5-5.0) g/dL Lipase (23-300) U/L Disposition <Felicity Wiley - Last Filed: 05/19/20 23:08> Is patient prescribed a controlled substance at d/c from ED?: No <Edmond Hernandez - Last Filed: 05/20/20 01:14> Clinical Impression: Abdominal pain Disposition: HOME SELF-CARE Condition: Fair Instructions (If sedation given, give patient instructions): Chronic Abdominal Pain (ED) Referrals: None,Stated [Primary Care Provider] - 1-2 days
[2020-05-19 23:17] LABS: ALT 48 U/L (4-49); AST 24 U/L (17-59); African American GFR (CKD) >90 (>60 ml/min/1.73 sqM); Albumin 4.3 g/dL (3.5-5.0); Alkaline Phosphatase 104 U/L (38-126); Anion Gap 7 mmol/L; Blood Urea Nitrogen 17 mg/dL (9-20); Calcium 9.3 mg/dL (8.4-10.2); Carbon Dioxide 23 mmol/L (22-30); Chloride 104 mmol/L (98-107); Glucose 134 mg/dL (74-99); Lipase 74 U/L (23-300); Non-African American GFR(CKD) >90 (>60 ml/min/1.73 sqM); Potassium 4.1 mmol/L (3.5-5.1); Sodium 134 mmol/L (137-145); Total Bilirubin 0.8 mg/dL (0.2-1.3); Total Protein 7.2 g/dL (6.3-8.2)
[2020-05-19 23:45] LABS: INR 0.9 (<1.2); Prothrombin Time 9.7 sec (9.0-12.0)
--- NOTE | 2020-05-19 23:45 | CT ---
EXAMINATION TYPE: CT abdomen pelvis w con DATE OF EXAM: 05/19/2020 COMPARISON: 04/08/2020 HISTORY: abd pain with diarrhea CT DLP: 2259.5 mGycm Automated exposure control for dose reduction was used. CONTRAST: Performed with IV Contrast, patient injected with 100 mL of Isovue 300. Lung bases are clear of consolidation. There is no pleural effusion. Heart size is normal. Liver spleen pancreas appear normal. Bile ducts are not dilated. There are clips from cholecystectomy . There is no adrenal mass. Kidneys show satisfactory contrast opacification. There is no hydronephrosi s. There is 3 cm cortical cyst anterior right kidney. There is no retroperitoneal adenopathy. Ureters are not dilated. Bladder distends smoothly with contrast. There is no inguinal hernia. There is no e vidence of pelvic mass. There is no free fluid in the pelvis. There are surgical clips at the splenic flexure of the colon. There is no evidence of a bowel obstruc tion. There is no mesenteric edema. There is no ascites. There is no free air. There is spinal cathet er noted in the lower thoracic spine with pump implanted on the posterior left side of the lower lumb ar spine. IMPRESSION: No acute abnormality of the abdomen pelvis. No significant change compared to old exam. There is mini mal chronic fat stranding in the left upper quadrant at the surgery site not significantly different than old exam.
[2020-05-19 23:57] VITALS: RESP 18
[2020-05-20] LABS: Partial Thromboplastin Time 20.7 sec (22.0-30.0)
[2020-05-20] MEDS ORDERED: HYDROmorphone 1 MG/ML 1 ML SYRINGE IVP STA (01:12)
[2020-05-20 01:38] VITALS: BP 144/68; PULSE 83; TEMP 98.1
== END 2020-05-20 01:29 | disposition home or self-care (01) ==
LOC: EC 18:19
DX: R10.815 Periumbilic abdominal tenderness (principal); R06.02 Shortness of breath; I20.9 Angina pectoris, unspecified; E11.9 Type 2 diabetes mellitus without complications; K21.9 Gastro-esophageal reflux disease without esophagitis; E78.5 Hyperlipidemia, unspecified; I10 Essential (primary) hypertension; I25.2 Old myocardial infarction; G47.33 Obstructive sleep apnea (adult) (pediatric); Z79.4 Long term (current) use of insulin; Z79.899 Other long term (current) drug therapy; Z95.5 Presence of coronary angioplasty implant and graft; Z90.49 Acquired absence of other specified parts of digestive tract; Z88.1 Allergy status to other antibiotic agents; Z88.5 Allergy status to narcotic agent; Z88.8 Allergy status to other drugs, medicaments and biological substances; Z82.49 Family history of ischemic heart disease and other diseases of the circulatory system; Z20.828 Contact with and (suspected) exposure to other viral communicable diseases; Z86.14 Personal history of Methicillin resistant Staphylococcus aureus infection
CPT/HCPCS: 36415; 93005; 83880; 80053; 83690; 83735; 84484; 85025; 85610; 85730; 71046; 74177; 99285; 96374; 96375; 96376; C9113; J1170; Q9967

== ENCOUNTER 2020-06-02 13:24 | Emergency (ER) | payer OTHER ==
[2020-06-02 13:32] VITALS: BP 167/85; PULSE 112; RESP 20; TEMP 99.1
[2020-06-02] MEDS ORDERED: HYDROmorphone 0.5 MG/0.5 ML SYRINGE IM STA (13:54)
--- NOTE | 2020-06-02 13:55 | ED ---
Back Pain HPI - General Chief Complaint: Back Pain/Injury Stated Complaint: Back pain Time Seen by Provider: 06/02/20 13:42 Source: patient Limitations: no limitations - History of Present Illness Initial Comments: 54-year-old male who frequents the ER frequently for chronic back pain presenting to the ER today for chief complaint of back pain. He states he's been helping a lot with his mother and lifted her he states he had low back pain rating down the right leg he states that that is unlikely usually radiates down he denies weakness sensation deficits. He denies urinary retention loss of bowel bladder control he denies falls or trauma IV drug use. Patient states he does follow up with neurosurgery and has an appointment on Monday. Patient states he does take Percocet for the pain. Patient is able to ambulate. Patient is able to weight-bear on the right leg he denies any sensation loss upon arrival patient appears well and nontoxic. He denies any chest pain or upper back pain - Related Data Home Medications Medication Instructions Recorded Confirmed Omeprazole [PriLOSEC] 20 mg PO DAILY 12/11/17 05/19/20 Carvedilol [Coreg] 12.5 mg PO BID 07/22/19 05/19/20 glipiZIDE XL [Glucotrol XL] 5 mg PO BID 07/22/19 05/19/20 Atorvastatin [Lipitor] 20 mg PO DAILY 08/26/19 05/19/20 Insulin Glargine,Hum.rec.anlog 30 unit SQ BID 08/26/19 05/19/20 [Basaglar Kwikpen U-100] Gabapentin [Neurontin] 300 mg PO BID 10/12/19 05/19/20 INSULIN LISPRO (HumaLOG) [humaLOG] 10 unit SQ TID-W/MEALS 02/16/20 05/19/20 Simethicone Chew [Mylicon Chew] 80 mg PO BID PRN 04/08/20 05/19/20 Tamsulosin [Flomax] 0.4 mg PO DAILY 04/08/20 05/19/20 Dicyclomine HCl 20 mg PO QID PRN 05/07/20 05/19/20 Mag Hydrox/Aluminum Hyd/Simeth 10 - 20 ml PO ACHS PRN 05/07/20 05/19/20 [Mylanta Maximum Strength Liq] Ondansetron [Zofran] 4 mg PO Q6H PRN 05/07/20 05/19/20 methocarbamoL [Robaxin] 750 mg PO TID PRN 05/07/20 05/19/20 oxyCODONE-APAP 7.5-325MG [Percocet 1 tab PO Q6HR PRN 05/07/20 05/19/20 7.5-325 mg] Previous Rx's Medication Instructions Recorded Aspirin 325 mg PO DAILY 30 Days #30 tab 09/02/19 lisinopriL [Zestril] 10 mg PO DAILY #30 tab 02/17/20 Sennosides/Docusate Sodium [Senna 1 each PO BID PRN #10 tablet 05/07/20 Plus 8.6-50 mg Tablet] Allergies Allergy/AdvReac Type Severity Reaction Status Date / Time doxycycline Allergy Swelling Verified 06/02/20 13:32 ketorolac tromethamine Allergy Rash/Hives Verified 06/02/20 13:32 [From Toradol] morphine Allergy Rash/Hives Verified 06/02/20 13:32 metoclopramide HCl AdvReac Dystonic Verified 06/02/20 13:32 [From Reglan] Reaction prochlorperazine edisylate AdvReac Dystonic Verified 06/02/20 13:32 [From Compazine] Reaction prochlorperazine maleate AdvReac Dystonic Verified 06/02/20 13:32 [From Compazine] Reaction Review of Systems ROS Statement: Those systems with pertinent positive or pertinent negative responses have been documented in the HPI. ROS Other: All systems not noted in ROS Statement are negative. Past Medical History Past Medical History: Asthma, Chest Pain / Angina, Diabetes Mellitus, GERD/Reflux, Hyperlipidemia, Hypertension, Myocardial Infarction ([place]), Mitral Valve Prolapse (MVP), Pulmonary Embolus (PE), Sleep Apnea/CPAP/BIPAP Additional Past Medical History / Comment(s): Obesity, chronic asthmatic bronchitis, previous history of pulmonary embolism, objective sleep apnea, diabetes mellitus, hypertension, hyperlipidemia, previous history of myocardial infarction with underlying coronary artery disease, renal cysts, chronic back pain secondary to herniated lumbar disc disease with symptoms of sciatica, history of right lower extremity fracture at the age of 13, history of C. diff colitis approximately 4 years ago, history of bleeding peptic ulcer, nephrolithiasis, previous history of UTI and secondary sepsis. Last Myocardial Infarction Date:: 2011 History of Any Multi-Drug Resistant Organisms: MRSA Date of last positivie culture/infection: 2015 MDRO Source:: left axilla Past Surgical History: Appendectomy, Back Surgery, Cholecystectomy, Heart Catheterization, Hernia Repair Additional Past Surgical History / Comment(s): 2007 back surgery with decompression fusion at [facility], 2011, 2016 cardiac cath, multiple ESWL/ureteral stents/ double J catheters, L inquinal hernia repair, PICC line for ABX for urosepsis-since removed., spinal stimulator and lumbar laminectomy 12/27. Colectomy February 2020 Past Anesthesia/Blood Transfusion Reactions: No Reported Reaction Past Psychological History: No Psychological Hx Reported Smoking Status: Never smoker Past Alcohol Use History: None Reported Past Drug Use History: None Reported - Past Family History Father Family Medical History: Chest Pain / Angina Additional Family Medical History / Comment(s): "lung problems" Mother Family Medical History: Cancer, Chest Pain / Angina, Congestive Heart Failure (CHF), Osteoarthritis (OA), Thyroid Disorder General Exam - General Exam Comments Initial Comments: General: The patient is awake and alert, in no distress Eye: Pupils are equal, round and reactive to light, extra-ocular movements are intact. No nystagmus. There is normal conjunctiva bilaterally. No signs of icterus. Ears, nose, mouth and throat: There are moist mucous membranes and no oral lesions. Neck: The neck is supple, there is no tenderness or JVD. Cardiovascular: There is a regular rate and rhythm. No murmur, rub or gallop is appreciated. Respiratory: Lungs are clear to auscultation, respirations are non-labored, breath sounds are equal. No wheezes, stridor, rales, or rhonchi. Gastrointestinal: Soft, non-distended, non-tender abdomen without masses or organomegaly noted. There is no rebound or guarding present. No pulsatile masses. Musculoskeletal: Normal inspection of the cervical thoracic and lumbar spine. Some midline lumbar pain, as well as paraspinal. Normal ROM, of the LE b/l-SLR + right side. Strength 5/5 of the LE b/l. Sensation intact of the LE b/l including the saddle region. Radial and DP pulses equal bilaterally 2+. Neurological: A&O x 3. CN II-XII intact grossly, There are no obvious motor or sensory deficits. Coordination appears grossly intact. Speech is normal. Skin: Skin is warm and dry and no rashes or lesions are noted. Psychiatric: Cooperative, appropriate mood & affect, normal judgment. Limitations: no limitations Course Vital Signs 06/02/20 13:28 Temperature 99.1 F Pulse Rate 112 H Respiratory 20 Rate Blood Pressure 167/85 O2 Sat by Pulse 100 Oximetry Medical Decision Making - Medical Decision Making Patient given 1 IM dose of Dilaudid. He has no concerning clinical features or history for cauda equina. Patient takes Percocet at home he is to follow up with neurosurgery on Monday and return for worsening symptoms. Pt discharged appearing well. ambulatory. Disposition Clinical Impression: Chronic back pain, Exacerbation of chronic back pain Disposition: HOME SELF-CARE Condition: Good Instructions (If sedation given, give patient instructions): Acute Low Back Pain (ED) Additional Instructions: Please use medication as discussed. Please follow-up with family doctor in the next 2 days. Please return to emergency room if the symptoms increase or worsen or for any other concerns. Is patient prescribed a controlled substance at d/c from ED?: No Referrals: None,Stated [Primary Care Provider] - 1-2 days Time of Disposition: 13:55
== END 2020-06-02 14:31 | disposition home or self-care (01) ==
LOC: EC 13:24
DX: M54.5 Low back pain (principal); G89.29 Other chronic pain; E11.9 Type 2 diabetes mellitus without complications; I20.9 Angina pectoris, unspecified; K21.9 Gastro-esophageal reflux disease without esophagitis; E78.5 Hyperlipidemia, unspecified; I10 Essential (primary) hypertension; I25.2 Old myocardial infarction; G47.33 Obstructive sleep apnea (adult) (pediatric); Z79.01 Long term (current) use of anticoagulants; Z99.89 Dependence on other enabling machines and devices; Z79.4 Long term (current) use of insulin; Z88.1 Allergy status to other antibiotic agents; Z88.5 Allergy status to narcotic agent; Z88.6 Allergy status to analgesic agent; Z88.8 Allergy status to other drugs, medicaments and biological substances; Z86.711 Personal history of pulmonary embolism; Z86.14 Personal history of Methicillin resistant Staphylococcus aureus infection; Z95.5 Presence of coronary angioplasty implant and graft; Z90.49 Acquired absence of other specified parts of digestive tract; X50.0XXA Overexertion from strenuous movement or load, initial encounter
CPT/HCPCS: 96372; 99283; J1170

== ENCOUNTER 2020-07-06 18:44 | Emergency (ER) | payer OTHER ==
[2020-07-06 18:50] VITALS: TEMP 98
[2020-07-06] MEDS ORDERED: HYDROmorphone 1 MG/ML 1 ML SYRINGE IVP STA (19:13)
[2020-07-06] MEDS ORDERED: DEXAMETHASONE SOD PHOSPHATE 10 MG/ML 1 ML VIAL IV STA (19:36)
[2020-07-06 20:41] VITALS: BP 152/102; PULSE 108; RESP 20
[2020-07-06] MEDS ORDERED: HYDROmorphone 0.5 MG/0.5 ML SYRINGE IVP STA (20:56)
--- NOTE | 2020-07-06 20:57 | ED ---
General Adult HPI - General Chief complaint: Back Pain/Injury Stated complaint: back pain Time Seen by Provider: 07/06/20 19:01 Source: patient, RN notes reviewed, old records reviewed Mode of arrival: wheelchair Limitations: no limitations - History of Present Illness Initial comments: 54-year-old male patient ED for evaluation of right paralumbar back pain. Patient reports that his mother had fallen he was helping her up he felt a pop in his right paralumbar back region. Patient really began having radiculopathy extending down the right lower extremity. While in route to hospital patient did have a loss of bowel or bladder control. Patient reports some paresthesias down the right lower extremity as well. He reports that his right lower extremity feels weaker as well. Patient does history of back surgery most recently he had a neurostimulator placed by Dr. Fields in December 2019. Denying any other complaints. Denies falling to the ground. Systemic: Pt denies fatigue, fever/chills, rash. Pt denies weakness, night sweats, weight loss. Neuro: Pt denies headache, visual disturbances, syncope or pre-syncope. HEENT: Pt denies ocular discharge or irritation, otalgia, rhinorrhea, pharyngitis or notable lymphadenopathy. Cardiopulmonary: Pt denies chest pain, SOB, heart palpitations, dyspnea on exertion. Abdominal/GI: Pt denies abdominal pain, n/v/d. : Pt denies dysuria, burning w/ urination, frequency/urgency. MSK: Pt denies loss of strength or function in extremities. - Related Data Home Medications Medication Instructions Recorded Confirmed Omeprazole [PriLOSEC] 20 mg PO DAILY 12/11/17 05/19/20 Carvedilol [Coreg] 12.5 mg PO BID 07/22/19 05/19/20 glipiZIDE XL [Glucotrol XL] 5 mg PO BID 07/22/19 05/19/20 Atorvastatin [Lipitor] 20 mg PO DAILY 08/26/19 05/19/20 Insulin Glargine,Hum.rec.anlog 30 unit SQ BID 08/26/19 05/19/20 [Basaglar Kwikpen U-100] Gabapentin [Neurontin] 300 mg PO BID 10/12/19 05/19/20 INSULIN LISPRO (HumaLOG) [humaLOG] 10 unit SQ TID-W/MEALS 08/09/20 11/10/20 Simethicone Chew [Mylicon Chew] 80 mg PO BID PRN 04/08/20 05/19/20 Tamsulosin [Flomax] 0.4 mg PO DAILY 04/08/20 05/19/20 Dicyclomine HCl 20 mg PO QID PRN 05/07/20 05/19/20 Mag Hydrox/Aluminum Hyd/Simeth 10 - 20 ml PO ACHS PRN 05/07/20 05/19/20 [Mylanta Maximum Strength Liq] Ondansetron [Zofran] 4 mg PO Q6H PRN 05/07/20 05/19/20 methocarbamoL [Robaxin] 750 mg PO TID PRN 05/07/20 05/19/20 oxyCODONE-APAP 7.5-325MG [Percocet 1 tab PO Q6HR PRN 05/07/20 05/19/20 7.5-325 mg] Previous Rx's Medication Instructions Recorded Aspirin 325 mg PO DAILY 30 Days #30 tab 09/02/19 lisinopriL [Zestril] 10 mg PO DAILY #30 tab 02/17/20 Sennosides/Docusate Sodium [Senna 1 each PO BID PRN #10 tablet 05/07/20 Plus 8.6-50 mg Tablet] Allergies Allergy/AdvReac Type Severity Reaction Status Date / Time doxycycline Allergy Swelling Verified 06/02/20 13:32 ketorolac tromethamine Allergy Rash/Hives Verified 06/02/20 13:32 [From Toradol] morphine Allergy Rash/Hives Verified 06/02/20 13:32 metoclopramide HCl AdvReac Dystonic Verified 06/02/20 13:32 [From Reglan] Reaction prochlorperazine edisylate AdvReac Dystonic Verified 06/02/20 13:32 [From Compazine] Reaction prochlorperazine maleate AdvReac Dystonic Verified 06/02/20 13:32 [From Compazine] Reaction Review of Systems ROS Statement: Those systems with pertinent positive or pertinent negative responses have been documented in the HPI. ROS Other: All systems not noted in ROS Statement are negative. Past Medical History Past Medical History: Asthma, Chest Pain / Angina, Diabetes Mellitus, GERD/Reflux, Hyperlipidemia, Hypertension, Myocardial Infarction ([place]), Mitral Valve Prolapse (MVP), Pulmonary Embolus (PE), Sleep Apnea/CPAP/BIPAP Additional Past Medical History / Comment(s): Obesity, chronic asthmatic bronchitis, previous history of pulmonary embolism, objective sleep apnea, diabetes mellitus, hypertension, hyperlipidemia, previous history of myocardial infarction with underlying coronary artery disease, renal cysts, chronic back pain secondary to herniated lumbar disc disease with symptoms of sciatica, history of right lower extremity fracture at the age of 13, history of C. diff colitis approximately 4 years ago, history of bleeding peptic ulcer, nephrolithiasis, previous history of UTI and secondary sepsis. Last Myocardial Infarction Date:: 2011 History of Any Multi-Drug Resistant Organisms: MRSA Date of last positivie culture/infection: 2015 MDRO Source:: left axilla Past Surgical History: Appendectomy, Back Surgery, Cholecystectomy, Heart Catheterization, Hernia Repair Additional Past Surgical History / Comment(s): 2007 back surgery with decompression fusion at [facility], 2011, 2016 cardiac cath, multiple ESWL/ureteral stents/ double J catheters, L inquinal hernia repair, PICC line for ABX for urosepsis-since removed., spinal stimulator and lumbar laminectomy 12/27. Colectomy February 2020 Past Anesthesia/Blood Transfusion Reactions: No Reported Reaction Past Psychological History: No Psychological Hx Reported Smoking Status: Never smoker Past Alcohol Use History: None Reported Past Drug Use History: None Reported - Past Family History Father Family Medical History: Chest Pain / Angina Additional Family Medical History / Comment(s): "lung problems" Mother Family Medical History: Cancer, Chest Pain / Angina, Congestive Heart Failure (CHF), Osteoarthritis (OA), Thyroid Disorder General Exam - General Exam Comments Initial Comments: Constitutional: NAD, AOX3, Pt has pleasant affect. HEENT: NC/AT, trachea midline, neck supple, no lymphadenopathy. External ears appear normal, without discharge. Mucous membranes moist. Eyes PERRLA, EOM intact. There is no scleral icterus. No pallor noted. Cardiopulmonary: RRR, no murmurs, rubs or gallops, no JVD noted. Lungs CTAB in anterior and posterior turner. No peripheral edema. Abdominal exam: Abdomen soft and non-distended. Abdomen non-tender to palpation in all 4 quadrants. Neuro: CN II-XII grossly intact. No nuchal rigidity. MSK: Right paralumbar region moderately tender to palpation. 45 strength right lower extremity 5 out of 5 strength left lower extremity. Gross sensation in lower extremity intact patient subjectively reports that feels slightly diminished on the right side. Slightly decreased rectal tone. Limitations: no limitations Course Vital Signs 07/06/20 07/06/20 18:47 20:38 Temperature 98.0 F Pulse Rate 121 H 108 H Respiratory 18 20 Rate Blood Pressure 180/101 152/102 O2 Sat by Pulse 98 98 Oximetry Medical Decision Making - Medical Decision Making 54-year-old male patient ED for evaluation of a back injury with radiculopathy and loss of bowel or bladder control. Physical exam doesn't display some weakness with a slightly diminished rectal tone. PVR is 100mL. I discussed case with our orthopedic consult team Hakan Cox PA-C who discussed case with his attending physician Dr. Wilkins. He recommended IV steroids 10 mg of Decadron and transferred to facility where patient surgery operates out of. Patient is agreeable to this care plan. Patient will be transferred to [facility] Dr. Hemphill accepts transfer. Patient surgeon Dr. Fields is aware of patient. Case was discussed with Dr. Dawson. Disposition Clinical Impression: Back pain with radiculopathy Disposition: OTHER INSTITUTION NOT DEFINED Condition: Serious Referrals: Trav Muniz MD [Primary Care Provider] - 1-2 days - Out of Hospital Transfer - Req. Specs Out of Hospital Transfer - Requested Specifics: Other Emergency Center ([facility] - Neurosurgery)
== END 2020-07-06 21:21 | disposition other institution (70) ==
LOC: EC 18:44
DX: M54.10 Radiculopathy, site unspecified (principal); I10 Essential (primary) hypertension; E11.9 Type 2 diabetes mellitus without complications; I25.119 Atherosclerotic heart disease of native coronary artery with unspecified angina pectoris; K21.9 Gastro-esophageal reflux disease without esophagitis; E78.5 Hyperlipidemia, unspecified; G47.33 Obstructive sleep apnea (adult) (pediatric); I25.2 Old myocardial infarction; Z79.899 Other long term (current) drug therapy; Z79.4 Long term (current) use of insulin; Z88.1 Allergy status to other antibiotic agents; Z88.5 Allergy status to narcotic agent; Z88.6 Allergy status to analgesic agent; Z88.8 Allergy status to other drugs, medicaments and biological substances; Z99.89 Dependence on other enabling machines and devices; Z86.711 Personal history of pulmonary embolism
CPT/HCPCS: 51798; 99285; 96374; 96375; 96376; J1100; J1170 ×2

== ENCOUNTER 2020-07-19 18:53 | Emergency (ER) | payer OTHER ==
[2020-07-19 19:05] VITALS: TEMP 99.1
[2020-07-19] MEDS ORDERED: HYDROmorphone 1 MG/ML 1 ML SYRINGE IM STA (19:14)
--- NOTE | 2020-07-19 19:34 | ED ---
General Adult HPI - General Chief complaint: Back Pain/Injury Stated complaint: Back pain Time Seen by Provider: 07/19/20 19:06 Source: patient, RN notes reviewed Mode of arrival: ambulatory Limitations: no limitations - History of Present Illness Initial comments: 54-year-old male with a complicated past medical history per since to the emergency room for a chief complaint of acute on chronic back pain. Patient reports that this morning he was getting out of bed when he felt that he "pinched nerve" in his back. States that this tip of penis happened before. He has not had any bladder or bowel changes whatsoever today. He denies any weakness in the lower extremities. Denies any saddle anesthesia. No fevers or chills. Patient did have a nerve stimulator placed in December. He was seen in the emergency room about 2 weeks ago and transferred to the facility where his neurosurgeon works. They turned off the nerve stimulator and patient is going to see his neurosurgeon in 2 days and have an MRI performed. She states overall his pain is improving since that time however when he tweaked it today it worsened somewhat.Patient has no other complaints at this time including shortness of breath, chest pain, abdominal pain, nausea or vomiting, headache, or visual changes. - Related Data Home Medications Medication Instructions Recorded Confirmed Omeprazole [PriLOSEC] 20 mg PO DAILY 12/11/17 05/19/20 Carvedilol [Coreg] 12.5 mg PO BID 07/22/19 05/19/20 glipiZIDE XL [Glucotrol XL] 5 mg PO BID 07/22/19 05/19/20 Atorvastatin [Lipitor] 20 mg PO DAILY 08/26/19 05/19/20 Insulin Glargine,Hum.rec.anlog 30 unit SQ BID 08/26/19 05/19/20 [Basaglar Kwikpen U-100] Gabapentin [Neurontin] 300 mg PO BID 10/12/19 05/19/20 INSULIN LISPRO (HumaLOG) [humaLOG] 10 unit SQ TID-W/MEALS 02/16/20 05/19/20 Simethicone Chew [Mylicon Chew] 80 mg PO BID PRN 04/08/20 05/19/20 Tamsulosin [Flomax] 0.4 mg PO DAILY 04/08/20 05/19/20 Dicyclomine HCl 20 mg PO QID PRN 05/07/20 05/19/20 Mag Hydrox/Aluminum Hyd/Simeth 10 - 20 ml PO ACHS PRN 05/07/20 05/19/20 [Mylanta Maximum Strength Liq] Ondansetron [Zofran] 4 mg PO Q6H PRN 05/07/20 05/19/20 methocarbamoL [Robaxin] 750 mg PO TID PRN 05/07/20 05/19/20 oxyCODONE-APAP 7.5-325MG [Percocet 1 tab PO Q6HR PRN 05/07/20 05/19/20 7.5-325 mg] Previous Rx's Medication Instructions Recorded Aspirin 325 mg PO DAILY 30 Days #30 tab 09/02/19 lisinopriL [Zestril] 10 mg PO DAILY #30 tab 02/17/20 Sennosides/Docusate Sodium [Senna 1 each PO BID PRN #10 tablet 05/07/20 Plus 8.6-50 mg Tablet] Allergies Allergy/AdvReac Type Severity Reaction Status Date / Time doxycycline Allergy Swelling Verified 07/19/20 19:05 ketorolac tromethamine Allergy Rash/Hives Verified 07/19/20 19:05 [From Toradol] morphine Allergy Rash/Hives Verified 07/19/20 19:05 metoclopramide HCl AdvReac Dystonic Verified 07/19/20 19:05 [From Reglan] Reaction prochlorperazine edisylate AdvReac Dystonic Verified 07/19/20 19:05 [From Compazine] Reaction prochlorperazine maleate AdvReac Dystonic Verified 07/19/20 19:05 [From Compazine] Reaction Review of Systems ROS Statement: Those systems with pertinent positive or pertinent negative responses have been documented in the HPI. ROS Other: All systems not noted in ROS Statement are negative. Past Medical History Past Medical History: Asthma, Chest Pain / Angina, Diabetes Mellitus, GERD/Reflux, Hyperlipidemia, Hypertension, Myocardial Infarction ([place]), Mitral Valve Prolapse (MVP), Pulmonary Embolus (PE), Sleep Apnea/CPAP/BIPAP Additional Past Medical History / Comment(s): Obesity, chronic asthmatic bronchitis, previous history of pulmonary embolism, objective sleep apnea, diab etes mellitus, hypertension, hyperlipidemia, previous history of myocardial infarction with underlying coronary artery disease, renal cysts, chronic back pain secondary to herniated lumbar disc disease with symptoms of sciatica, history of right lower extremity fracture at the age of 13, history of C. diff colitis approximately 4 years ago, history of bleeding peptic ulcer, nephrolithiasis, previous history of UTI and secondary sepsis. Last Myocardial Infarction Date:: 2011 History of Any Multi-Drug Resistant Organisms: MRSA Date of last positivie culture/infection: 2015 MDRO Source:: left axilla Past Surgical History: Appendectomy, Back Surgery, Cholecystectomy, Heart Catheterization, Hernia Repair Additional Past Surgical History / Comment(s): 2007 back surgery with decompression fusion at [facility], 2011, 2016 cardiac cath, multiple ESWL/ureteral stents/ double J catheters, L inquinal hernia repair, PICC line for ABX for urosepsis-since removed., spinal stimulator and lumbar laminectomy 12/27. Colectomy February 2020 Past Anesthesia/Blood Transfusion Reactions: No Reported Reaction Past Psychological History: No Psychological Hx Reported Smoking Status: Never smoker Past Alcohol Use History: None Reported Past Drug Use History: None Reported - Past Family History Father Family Medical History: Chest Pain / Angina Additional Family Medical History / Comment(s): "lung problems" Mother Family Medical History: Cancer, Chest Pain / Angina, Congestive Heart Failure (CHF), Osteoarthritis (OA), Thyroid Disorder General Exam Limitations: no limitations General appearance: alert Head exam: Present: atraumatic Eye exam: Present: normal appearance, PERRL, EOMI. Absent: scleral icterus ENT exam: Present: normal exam, mucous membranes moist Neck exam: Present: normal inspection. Absent: tenderness, meningismus, lymphadenopathy Respiratory exam: Present: normal lung sounds bilaterally. Absent: respiratory distress, wheezes, rales, rhonchi, stridor Cardiovascular Exam: Present: regular rate, normal rhythm, normal heart sounds. Absent: clicks GI/Abdominal exam: Present: soft. Absent: distended, tenderness Extremities exam: Present: normal capillary refill (Capillary refill less than 2 seconds in bilateral lower extremities) Back exam: Present: paraspinal tenderness, vertebral tenderness (Generalized low back tenderness without any evidence of trauma) Course Vital Signs 07/19/20 07/19/20 07/19/20 19:02 19:50 19:59 Temperature 99.1 F Pulse Rate 100 104 H 107 H Respiratory 18 18 18 Rate Blood Pressure 153/111 164/114 O2 Sat by Pulse 98 98 98 Oximetry 07/19/20 20:19 Temperature Pulse Rate 107 H Respiratory 20 Rate Blood Pressure 173/107 O2 Sat by Pulse 99 Oximetry Medical Decision Making - Medical Decision Making Patient is complaining of acute on chronic back pain. He does have a significant history of back pain with multiple surgeries. Patient was just evaluated by his neurosurgeon last week and has another follow-up in 2 days. He is not having any red flag symptoms such as bladder or bowel changes, weakness of the lower extremities, numbness of the lower extremities, fevers or saddle anesthesia. Patient will be tested for Covid as he was exposed about 2 weeks ago and developed a cough 3 days ago. Denies fevers. COVID neg. Patient was given pain medication and did have improvement in symptoms. Patient is hyper tensive. Patient reports he did not take his evening blood pressure medication. Patient states his blood pressure is always high. He does not want to wait around for her to go down. He is asymptomatic at this time with no chest pain, shortness of breath, headache or dizziness. He will follow-up with his doctor for high blood pressure. He will return here for any worsening symptoms. - Lab Data Lab Results 07/19/20 Range/Units 19:22 Coronavirus (PCR) Not Detected (Not Detectd) Disposition Clinical Impression: Mechanical back pain Disposition: HOME SELF-CARE Condition: Good Instructions (If sedation given, give patient instructions): Acute Low Back Pain (ED) Additional Instructions: Please follow-up with your doctor in one to 2 days. Return to the emergency room for any worsening symptoms. Is patient prescribed a controlled substance at d/c from ED?: No Referrals: Trav Muniz MD [Primary Care Provider] - 1-2 days Time of Disposition: 20:21
[2020-07-19] MEDS ORDERED: carvediloL 12.5 MG TAB PO STA (19:53)
[2020-07-19 20:19] VITALS: RESP 20
[2020-07-19 20:33] VITALS: BP 150/105; PULSE 110
== END 2020-07-19 20:30 | disposition home or self-care (01) ==
LOC: EC 18:53
DX: G89.29 Other chronic pain (principal); M54.9 Dorsalgia, unspecified; R05 Cough; I10 Essential (primary) hypertension; E11.9 Type 2 diabetes mellitus without complications; E78.5 Hyperlipidemia, unspecified; K21.9 Gastro-esophageal reflux disease without esophagitis; I25.119 Atherosclerotic heart disease of native coronary artery with unspecified angina pectoris; G47.33 Obstructive sleep apnea (adult) (pediatric); E66.9 Obesity, unspecified; Z68.39 Body mass index [BMI] 39.0-39.9, adult; I25.2 Old myocardial infarction; Z79.899 Other long term (current) drug therapy; Z79.4 Long term (current) use of insulin; Z88.1 Allergy status to other antibiotic agents; Z88.6 Allergy status to analgesic agent; Z88.5 Allergy status to narcotic agent; Z88.8 Allergy status to other drugs, medicaments and biological substances; Z99.89 Dependence on other enabling machines and devices; Z86.711 Personal history of pulmonary embolism; Z98.890 Other specified postprocedural states; Z20.822 Contact with and (suspected) exposure to COVID-19
CPT/HCPCS: 99283; 96372; 87635; J1170

== ENCOUNTER 2020-08-20 07:59 | Emergency (ER) | payer OTHER ==
[2020-08-20 08:06] VITALS: RESP 18; TEMP 98.4
[2020-08-20] MEDS ORDERED: oxyCODONE-APAP 7.5-325MG 1 EACH TAB PO STA (08:32)
--- NOTE | 2020-08-20 08:36 | ED ---
Fall HPI - General Source: patient, RN notes reviewed Mode of arrival: wheelchair Limitations: no limitations <Karson Silverman - Last Filed: 08/20/20 10:01> <Yin Gusman - Last Filed: 08/24/20 22:07> - General Chief Complaint: Fall Stated Complaint: fall/back pain Time Seen by Provider: 08/20/20 08:08 - History of Present Illness Initial Comments: This a 54-year-old male presents emergency Department chief complaint of fall, back pain. Patient has chronic back issues in which she states that he try to catch his mom from slipping and falling yesterday getting into the van states that he fell onto his back. Patient complains of diffuse neck pain no localized pain. He denies any bowel, bladder incontinence or retention no saddle anesthesias no lower shunted paresthesias. Patient states he sees a surgeon out of [place]. Patient had multiple surgeries, stimulator placed. Patient has no abdominal pain denies headache dizziness head injury or loss conscious. (Karson Silverman) - Related Data Home Medications Medication Instructions Recorded Confirmed Omeprazole [PriLOSEC] 20 mg PO DAILY 12/11/17 05/19/20 Carvedilol [Coreg] 12.5 mg PO BID 07/22/19 05/19/20 glipiZIDE XL [Glucotrol XL] 5 mg PO BID 07/22/19 05/19/20 Atorvastatin [Lipitor] 20 mg PO DAILY 08/26/19 05/19/20 Insulin Glargine,Hum.rec.anlog 30 unit SQ BID 08/26/19 05/19/20 [Basaglar Kwikpen U-100] Gabapentin [Neurontin] 300 mg PO BID 10/12/19 05/19/20 INSULIN LISPRO (HumaLOG) [humaLOG] 10 unit SQ TID-W/MEALS 02/16/20 05/19/20 Simethicone Chew [Mylicon Chew] 80 mg PO BID PRN 04/08/20 05/19/20 Tamsulosin [Flomax] 0.4 mg PO DAILY 04/08/20 05/19/20 Dicyclomine HCl 20 mg PO QID PRN 05/07/20 05/19/20 Mag Hydrox/Aluminum Hyd/Simeth 10 - 20 ml PO ACHS PRN 05/07/20 05/19/20 [Mylanta Maximum Strength Liq] Ondansetron [Zofran] 4 mg PO Q6H PRN 05/07/20 05/19/20 methocarbamoL [Robaxin] 750 mg PO TID PRN 05/07/20 05/19/20 oxyCODONE-APAP 7.5-325MG [Percocet 1 tab PO Q6HR PRN 05/07/20 05/19/20 7.5-325 mg] Previous Rx's Medication Instructions Recorded Aspirin 325 mg PO DAILY 30 Days #30 tab 09/02/19 lisinopriL [Zestril] 10 mg PO DAILY #30 tab 02/17/20 Sennosides/Docusate Sodium [Senna 1 each PO BID PRN #10 tablet 05/07/20 Plus 8.6-50 mg Tablet] Allergies Allergy/AdvReac Type Severity Reaction Status Date / Time doxycycline Allergy Swelling Verified 08/20/20 19:29 ketorolac tromethamine Allergy Rash/Hives Verified 08/20/20 19:29 [From Toradol] morphine Allergy Rash/Hives Verified 08/20/20 19:29 metoclopramide HCl AdvReac Dystonic Verified 08/20/20 19:29 [From Reglan] Reaction prochlorperazine edisylate AdvReac Dystonic Verified 08/20/20 19:29 [From Compazine] Reaction prochlorperazine maleate AdvReac Dystonic Verified 08/20/20 19:29 [From Compazine] Reaction Review of Systems ROS Other: All systems not noted in ROS Statement are negative. <Karson Silverman - Last Filed: 08/20/20 10:01> ROS Other: All systems not noted in ROS Statement are negative. <Yin Gusman - Last Filed: 08/24/20 22:07> ROS Statement: Those systems with pertinent positive or pertinent negative responses have been documented in the HPI. Past Medical History Past Medical History: Asthma, Chest Pain / Angina, Diabetes Mellitus, GERD/Reflux, Hyperlipidemia, Hypertension, Myocardial Infarction ([place]), Mitral Valve Prolapse (MVP), Pulmonary Embolus (PE), Sleep Apnea/CPAP/BIPAP Additional Past Medical History / Comment(s): Obesity, chronic asthmatic bronchitis, previous history of pulmonary embolism, objective sleep apnea, diabetes mellitus, hypertension, hyperlipidemia, previous history of myocardial infarction with underlying coronary artery disease, renal cysts, chronic back pain secondary to herniated lumbar disc disease with symptoms of sciatica, history of right lower extremity fracture at the age of 13, history of C. diff colitis approximately 4 years ago, history of bleeding peptic ulcer, nephrolithiasis, previous history of UTI and secondary sepsis. Last Myocardial Infarction Date:: 2011 History of Any Multi-Drug Resistant Organisms: MRSA Date of last positivie culture/infection: 2016 MDRO Source:: left axilla Past Surgical History: Appendectomy, Back Surgery, Cholecystectomy, Heart Catheterization, Hernia Repair Additional Past Surgical History / Comment(s): 2007 back surgery with decompression fusion at [facility], 2011, 2016 cardiac cath, multiple ESWL/ureteral stents/ double J catheters, L inquinal hernia repair, PICC line for ABX for urosepsis-since removed., spinal stimulator and lumbar laminectomy 12/27. Colectomy February 2020 Past Anesthesia/Blood Transfusion Reactions: No Reported Reaction Past Psychological History: No Psychological Hx Reported Smoking Status: Never smoker Past Alcohol Use History: None Reported Past Drug Use History: None Reported - Past Family History Father Family Medical History: Chest Pain / Angina Additional Family Medical History / Comment(s): "lung problems" Mother Family Medical History: Cancer, Chest Pain / Angina, Congestive Heart Failure (CHF), Osteoarthritis (OA), Thyroid Disorder <Karson Silverman - Last Filed: 08/20/20 10:01> General Exam Limitations: no limitations General appearance: alert, in no apparent distress Head exam: Present: atraumatic, normocephalic, normal inspection Eye exam: Present: normal appearance, PERRL, EOMI. Absent: scleral icterus, conjunctival injection, periorbital swelling Neck exam: Present: normal inspection, full ROM. Absent: tenderness, meningismus, lymphadenopathy Respiratory exam: Present: normal lung sounds bilaterally. Absent: respiratory distress, wheezes, rales, rhonchi, stridor Cardiovascular Exam: Present: regular rate, normal rhythm, normal heart sounds. Absent: systolic murmur, diastolic murmur, rubs, gallop, clicks GI/Abdominal exam: Present: soft, normal bowel sounds. Absent: distended, tenderness, guarding, rebound, rigid Extremities exam: Present: other (Lower extremity strength equal bilaterally there is equal color equal warmth and neurovascular intact) Back exam: Present: full ROM (Patient does have full range of motion but reports discomfort with any movement.), tenderness (Diffuse thoracic and lumbar), paraspinal tenderness. Absent: normal inspection (Multiple old surgical scars are noted, no erythema), CVA tenderness (R), CVA tenderness (L), muscle spasm, vertebral tenderness Neurological exam: Present: alert, oriented X3, CN II-XII intact, reflexes normal. Absent: motor sensory deficit Skin exam: Present: warm, dry, intact, normal color. Absent: rash <Karson Silverman - Last Filed: 08/20/20 10:01> Course Vital Signs 08/20/20 08/20/20 08:00 10:06 Temperature 98.4 F Pulse Rate 85 88 Respiratory 18 18 Rate Blood Pressure 177/85 132/82 O2 Sat by Pulse 100 99 Oximetry Medical Decision Making <Karson Silverman - Last Filed: 08/20/20 10:01> <Yin Gusman - Last Filed: 08/24/20 22:07> - Medical Decision Making 54-year-old presented for a fall back pain patient is chronic back pain he has no red flag symptoms patient is an bleeding on the room with no difficulty. Patient has a appointment with his surgeon tomorrow will follow-up return parameters were discussed. (Karson Silverman) I was available for consultation in the emergency department. The history and p hysical exam were done by the midlevel provider. I was consulted for this patients care. I reviewed the case with the midlevel provider and based on their presentation of the patient, I agree with the assessment, medical decision making and plan of care as documented. Chart was dictated using [employer] dictation software. Attempts were made to correct any dictation errors however some typographical errors may persist. Patient was seen during a national state of emergency due to the Covid-19 pandemic. (Yin Gusman) Disposition Is patient prescribed a controlled substance at d/c from ED?: No Time of Disposition: 10:02 <Karson Silverman - Last Filed: 08/20/20 10:01> <Yin Gusman - Last Filed: 08/24/20 22:07> Clinical Impression: Chronic back pain, Fall Disposition: HOME SELF-CARE Condition: Stable Instructions (If sedation given, give patient instructions): Fall Prevention for Older Adults (ED) Additional Instructions: Please return to the Emergency Department if symptoms worsen or any other concerns. Referrals: Trav Muniz MD [Primary Care Provider] - 1-2 days
--- NOTE | 2020-08-20 09:35 | XR ---
Thoracic spine and thoracic spine HISTORY: Pain, trauma Frontal lateral views of the thoracic spine submitted on 3 images, frontal lateral views of the lumba r spine submitted on [address] thoracic lumbar spine 12/31/2019 Postop changes are noted in the cervical spine. Surgical clips noted incidentally in the right upper quadrant. Posterior lumbar fusion changes are present at L3-S1, laminectomies are present at L5. Cord stimulato r is noted incidentally with its termination at approximately T9-10. There is multilevel spondylosis present. Thoracic and lumbar vertebral bodies show preserved height, alignment, and bone mineralizati on. Loss of disc height present at intervertebral levels L4-5, L1-2 and L5-S1, intervertebral spacing block present L3-4. Some loss of disc height present at intervertebral levels the midthoracic spine. IMPRESSION: Postop changes. Degenerative disc disease. No acute fracture or subluxation.
[2020-08-20 10:08] VITALS: BP 132/82; PULSE 88
== END 2020-08-20 10:08 | disposition home or self-care (01) ==
LOC: EC 07:59
DX: G89.29 Other chronic pain (principal); M54.9 Dorsalgia, unspecified; J45.909 Unspecified asthma, uncomplicated; I10 Essential (primary) hypertension; E11.9 Type 2 diabetes mellitus without complications; K21.9 Gastro-esophageal reflux disease without esophagitis; E78.5 Hyperlipidemia, unspecified; G47.33 Obstructive sleep apnea (adult) (pediatric); I25.2 Old myocardial infarction; Z79.899 Other long term (current) drug therapy; Z79.4 Long term (current) use of insulin; Z88.1 Allergy status to other antibiotic agents; Z88.6 Allergy status to analgesic agent; Z88.8 Allergy status to other drugs, medicaments and biological substances; Z86.711 Personal history of pulmonary embolism; Z99.89 Dependence on other enabling machines and devices; Z98.890 Other specified postprocedural states
CPT/HCPCS: 99283 ×2; 96372; 72070; 72100; J1170 ×2

== ENCOUNTER 2020-08-20 19:25 | Emergency (ER) | payer OTHER ==
[2020-08-20 19:29] VITALS: RESP 18; TEMP 98
[2020-08-20] MEDS ORDERED: HYDROmorphone 1 MG/ML 1 ML SYRINGE IM STA (19:55)
[2020-08-20] MEDS ORDERED: ONDANSETRON ODT 4 MG TAB PO STA (19:55)
[2020-08-20] MEDS ORDERED: carvediloL 12.5 MG TAB PO STA (19:56)
[2020-08-20] MEDS ORDERED: lisinopriL 10 MG TAB PO STA (19:56)
--- NOTE | 2020-08-20 20:15 | ED ---
General Adult HPI - General Chief complaint: Back Pain/Injury Stated complaint: Back pain-fall Time Seen by Provider: 08/20/20 19:45 Source: patient Mode of arrival: ambulatory Limitations: no limitations - History of Present Illness Initial comments: 54-year-old male with a compensated past medical history including hypertension and chronic back pain presents to the emergency room for back pain. He reports that 2 days ago he was helping his mother into the car when she started to fall and he had to catch her. He strained his back. Patient reports that he consistent with a normal strain for him. He does not have any bladder or bowel changes, numbness or tingling of the lower extremities, fevers, or weakness of the legs. He reports that he came to the hospital earlier and he had a pill that did not work. He went home and pain continued so he came back. He states the pain caused nausea and he was not able to keep down his blood pressure medications. He reports he has an appointment with his surgeon tomorrow. Patient's last surgery was 8 months ago and it was placement of a neurostimulator that is now off. Tomorrow it will be turned back on apparently.Patient has no other complaints at this time including shortness of breath, chest pain, abdominal pain, nausea or vomiting, headache, or visual changes. - Related Data Home Medications Medication Instructions Recorded Confirmed Omeprazole [PriLOSEC] 20 mg PO DAILY 12/11/17 05/19/20 Carvedilol [Coreg] 12.5 mg PO BID 07/22/19 05/19/20 glipiZIDE XL [Glucotrol XL] 5 mg PO BID 07/22/19 05/19/20 Atorvastatin [Lipitor] 20 mg PO DAILY 08/26/19 05/19/20 Insulin Glargine,Hum.rec.anlog 30 unit SQ BID 08/26/19 05/19/20 [Basaglar Kwikpen U-100] Gabapentin [Neurontin] 300 mg PO BID 10/12/19 05/19/20 INSULIN LISPRO (HumaLOG) [humaLOG] 10 unit SQ TID-W/MEALS 02/16/20 05/19/20 Simethicone Chew [Mylicon Chew] 80 mg PO BID PRN 04/08/20 05/19/20 Tamsulosin [Flomax] 0.4 mg PO DAILY 04/08/20 05/19/20 Dicyclomine HCl 20 mg PO QID PRN 05/07/20 05/19/20 Mag Hydrox/Aluminum Hyd/Simeth 10 - 20 ml PO ACHS PRN 05/07/20 05/19/20 [Mylanta Maximum Strength Liq] Ondansetron [Zofran] 4 mg PO Q6H PRN 05/07/20 05/19/20 methocarbamoL [Robaxin] 750 mg PO TID PRN 05/07/20 05/19/20 oxyCODONE-APAP 7.5-325MG [Percocet 1 tab PO Q6HR PRN 05/07/20 05/19/20 7.5-325 mg] Previous Rx's Medication Instructions Recorded Aspirin 325 mg PO DAILY 30 Days #30 tab 09/02/19 lisinopriL [Zestril] 10 mg PO DAILY #30 tab 02/17/20 Sennosides/Docusate Sodium [Senna 1 each PO BID PRN #10 tablet 05/07/20 Plus 8.6-50 mg Tablet] Allergies Allergy/AdvReac Type Severity Reaction Status Date / Time doxycycline Allergy Swelling Verified 08/20/20 19:29 ketorolac tromethamine Allergy Rash/Hives Verified 08/20/20 19:29 [From Toradol] morphine Allergy Rash/Hives Verified 08/20/20 19:29 metoclopramide HCl AdvReac Dystonic Verified 08/20/20 19:29 [From Reglan] Reaction prochlorperazine edisylate AdvReac Dystonic Verified 08/20/20 19:29 [From Compazine] Reaction prochlorperazine maleate AdvReac Dystonic Verified 08/20/20 19:29 [From Compazine] Reaction Review of Systems ROS Statement: Those systems with pertinent positive or pertinent negative responses have been documented in the HPI. ROS Other: All systems not noted in ROS Statement are negative. Past Medical History Past Medical History: Asthma, Chest Pain / Angina, Diabetes Mellitus, GERD/Reflux, Hyperlipidemia, Hypertension, Myocardial Infarction ([place]), Mitral Va lve Prolapse (MVP), Pulmonary Embolus (PE), Sleep Apnea/CPAP/BIPAP Additional Past Medical History / Comment(s): Obesity, chronic asthmatic bronchitis, previous history of pulmonary embolism, objective sleep apnea, diabetes mellitus, hypertension, hyperlipidemia, previous history of myocardial infarction with underlying coronary artery disease, renal cysts, chronic back pa in secondary to herniated lumbar disc disease with symptoms of sciatica, history of right lower extremity fracture at the age of 13, history of C. diff colitis approximately 4 years ago, history of bleeding peptic ulcer, nephrolithiasis, previous history of UTI and secondary sepsis. Last Myocardial Infarction Date:: 2011 History of Any Multi-Drug Resistant Organisms: MRSA Date of last positivie culture/infection: 2015 MDRO Source:: left axilla Past Surgical History: Appendectomy, Back Surgery, Cholecystectomy, Heart Catheterization, Hernia Repair Additional Past Surgical History / Comment(s): 2007 back surgery with decompression fusion at [facility], 2011, 2016 cardiac cath, multiple ESWL/ureteral stents/ double J catheters, L inquinal hernia repair, PICC line for ABX for urosepsis-since removed., spinal stimulator and lumbar laminectomy 12/27. Colectomy February 2020 Past Anesthesia/Blood Transfusion Reactions: No Reported Reaction Past Psychological History: No Psychological Hx Reported Smoking Status: Never smoker Past Alcohol Use History: None Reported Past Drug Use History: None Reported - Past Family History Father Family Medical History: Chest Pain / Angina Additional Family Medical History / Comment(s): "lung problems" Mother Family Medical History: Cancer, Chest Pain / Angina, Congestive Heart Failure (CHF), Osteoarthritis (OA), Thyroid Disorder General Exam Limitations: no limitations General appearance: alert Head exam: Present: atraumatic, normocephalic Eye exam: Present: normal appearance, PERRL, EOMI ENT exam: Present: normal exam, mucous membranes moist Neck exam: Present: normal inspection, full ROM. Absent: tenderness Respiratory exam: Present: normal lung sounds bilaterally. Absent: respiratory distress, wheezes Cardiovascular Exam: Present: regular rate, normal rhythm, normal heart sounds GI/Abdominal exam: Present: soft, normal bowel sounds. Absent: distended, tenderness Extremities exam: Present: normal capillary refill (Refill less than 2 seconds, DP pulses 2+ in lower external ears bilaterally.), other (Strength is 5 out of 5 in lower extremities bilaterally) Back exam: Present: paraspinal tenderness (Minimal lumbar paraspinal tenderness), vertebral tenderness (Minimal lumbar vertebral tenderness) Course Vital Signs 08/20/20 08/20/20 08/20/20 19:26 20:36 21:09 Temperature 98.0 F Pulse Rate 93 84 83 Respiratory 18 18 18 Rate Blood Pressure 166/115 148/108 167/103 O2 Sat by Pulse 99 98 99 Oximetry Medical Decision Making - Medical Decision Making Vitals are stable. Patient initially hypertensive but did not take his evening medications. This did improve with his medications. Patient's pain was treated. He is feeling ready for discharge. He will follow-up with his neurosurgeon tomorrow. He will return for any worsening symptoms. Disposition Clinical Impression: Acute exacerbation of chronic low back pain Disposition: HOME SELF-CARE Instructions (If sedation given, give patient instructions): Acute Low Back Pain (ED) Additional Instructions: Please take your pain medications at home. Follow up with your surgeon. Is patient prescribed a controlled substance at d/c from ED?: No Referrals: Trav Muniz MD [Primary Care Provider] - 1-2 days Time of Disposition: 21:57
[2020-08-20 21:11] VITALS: BP 167/103; PULSE 83
[2020-08-20] MEDS ORDERED: HYDROmorphone 0.5 MG/0.5 ML SYRINGE IM STA (21:56)
== END 2020-08-20 22:05 | disposition home or self-care (01) ==
LOC: EC 19:25
DX: G89.29 Other chronic pain (principal); M54.5 Low back pain; I10 Essential (primary) hypertension; G47.33 Obstructive sleep apnea (adult) (pediatric); E11.9 Type 2 diabetes mellitus without complications; E78.5 Hyperlipidemia, unspecified; K21.9 Gastro-esophageal reflux disease without esophagitis; I25.119 Atherosclerotic heart disease of native coronary artery with unspecified angina pectoris; I25.2 Old myocardial infarction; Z79.899 Other long term (current) drug therapy; Z79.4 Long term (current) use of insulin; Z88.5 Allergy status to narcotic agent; Z88.1 Allergy status to other antibiotic agents; Z88.8 Allergy status to other drugs, medicaments and biological substances; Z88.6 Allergy status to analgesic agent; Z98.1 Arthrodesis status; Z99.89 Dependence on other enabling machines and devices; Z86.711 Personal history of pulmonary embolism
CPT/HCPCS: 99283; 96372 ×2; J1170 ×2

== ENCOUNTER 2020-08-31 19:39 | Observation (INO) | payer OTHER ==
[2020-08-31] MEDS ORDERED: SODIUM CHLORIDE 0.9% 1,000 ML IV STA (20:10)
[2020-08-31] MEDS ORDERED: ONDANSETRON 4 MG/2 ML VIAL IVP STA (20:10)
[2020-08-31] MEDS ORDERED: HYDROmorphone 1 MG/ML 1 ML SYRINGE IVP STA (20:10)
--- NOTE | 2020-08-31 20:30 | ED ---
GI Bleed HPI <SamirCarroll - Last Filed: 08/31/20 22:45> - General Source: patient, RN notes reviewed Mode of arrival: ambulatory Limitations: no limitations <Stas Tristan - Last Filed: 08/31/20 22:51> - General Chief complaint: GI Bleed Stated complaint: Loss of bowel control,Blood in stool Time Seen by Provider: 08/31/20 19:58 - History of Present Illness Initial comments: Patient is a 54-year-old male with a history of colon cancer. He noted that he recently had a scope done and they found an adenoma. He noted this morning when he was helping his mother get ready to come to ER she started about a car he reached down to grab her and kept her awake. He noted that he injured his back started to have increase in bloody stools. He noted that ever since the scope and the diagnosis he's been having difficulties. He does follow-up with Dr. Arora. He said that the pain started off [place] 3-4 out of 10, it is now a 7- 9 out of 10 with no relief from any pain medications or remedies. He noted that he is having severe pain in the left lower quadrant that does not radiate anywhere. At that the last several days she's been having bright red blood per rectum that increased in quantity. He denied any chest pain shortness of breath nausea vomiting constipation fever fatigue chills. (Stas Tristan) - Related Data Home Medications Medication Instructions Recorded Confirmed Omeprazole [PriLOSEC] 20 mg PO DAILY 12/11/17 05/19/20 Carvedilol [Coreg] 12.5 mg PO BID 07/22/19 05/19/20 glipiZIDE XL [Glucotrol XL] 5 mg PO BID 07/22/19 05/19/20 Atorvastatin [Lipitor] 20 mg PO DAILY 08/26/19 05/19/20 Insulin Glargine,Hum.rec.anlog 30 unit SQ BID 08/26/19 05/19/20 [Basaglar Kwikpen U-100] Gabapentin [Neurontin] 300 mg PO BID 10/12/19 05/19/20 INSULIN LISPRO (HumaLOG) [humaLOG] 10 unit SQ TID-W/MEALS 02/16/20 05/19/20 Simethicone Chew [Mylicon Chew] 80 mg PO BID PRN 04/08/20 05/19/20 Tamsulosin [Flomax] 0.4 mg PO DAILY 04/08/20 05/19/20 Dicyclomine HCl 20 mg PO QID PRN 05/07/20 05/19/20 Mag Hydrox/Aluminum Hyd/Simeth 10 - 20 ml PO ACHS PRN 05/07/20 05/19/20 [Mylanta Maximum Strength Liq] Ondansetron [Zofran] 4 mg PO Q6H PRN 05/07/20 05/19/20 methocarbamoL [Robaxin] 750 mg PO TID PRN 05/07/20 05/19/20 oxyCODONE-APAP 7.5-325MG [Percocet 1 tab PO Q6HR PRN 05/07/20 05/19/20 7.5-325 mg] Previous Rx's Medication Instructions Recorded Aspirin 325 mg PO DAILY 30 Days #30 tab 09/02/19 lisinopriL [Zestril] 10 mg PO DAILY #30 tab 02/17/20 Sennosides/Docusate Sodium [Senna 1 each PO BID PRN #10 tablet 05/07/20 Plus 8.6-50 mg Tablet] Allergies Allergy/AdvReac Type Severity Reaction Status Date / Time doxycycline Allergy Swelling Verified 08/31/20 19:50 ketorolac tromethamine Allergy Rash/Hives Verified 08/31/20 19:50 [From Toradol] morphine Allergy Rash/Hives Verified 08/31/20 19:50 metoclopramide HCl AdvReac Dystonic Verified 08/31/20 19:50 [From Reglan] Reaction prochlorperazine edisylate AdvReac Dystonic Verified 08/31/20 19:50 [From Compazine] Reaction prochlorperazine maleate AdvReac Dystonic Verified 08/31/20 19:50 [From Compazine] Reaction Review of Systems ROS Other: All systems not noted in ROS Statement are negative. <Carroll Dawson - Last Filed: 08/31/20 22:45> ROS Other: All systems not noted in ROS Statement are negative. <Stas Tristan - Last Filed: 08/31/20 22:51> ROS Statement: Those systems with pertinent positive or pertinent negative responses have been documented in the HPI. Past Medical History Past Medical History: Asthma, Chest Pain / Angina, Diabetes Mellitus, GERD/Reflux, Hyperlipidemia, Hypertension, Myocardial Infarction ([place]), Mitral Valve Prolapse (MVP), Pulmonary Embolus (PE), Sleep Apnea/CPAP/BIPAP Additional Past Medical History / Comment(s): Obesity, chronic asthmatic bronchitis, previous history of pulmonary embolism, objective sleep apnea, diabetes mellitus, hypertension, hyperlipidemia, previous history of myocardial infarction with underlying coronary artery disease, renal cysts, chronic back pain secondary to herniated lumbar disc disease with symptoms of sciatica, history of right lower extremity fracture at the age of 13, history of C. diff colitis approximately 4 years ago, history of bleeding peptic ulcer, nephrolithiasis, previous history of UTI and secondary sepsis. Last Myocardial Infarction Date:: 2011 History of Any Multi-Drug Resistant Organisms: MRSA Date of last positivie culture/infection: 2015 MDRO Source:: left axilla Past Surgical History: Appendectomy, Back Surgery, Cholecystectomy, Heart Catheterization, Hernia Repair Additional Past Surgical History / Comment(s): 2007 back surgery with decompression fusion at [facility], 2011, 2016 cardiac cath, multiple ESWL/ureteral stents/ double J catheters, L inquinal hernia repair, PICC line for ABX for urosepsis-since removed., spinal stimulator and lumbar laminectomy 12/27. Colectomy February 2020 Past Anesthesia/Blood Transfusion Reactions: No Reported Reaction Past Psychological History: No Psychological Hx Reported Smoking Status: Never smoker Past Alcohol Use History: None Reported Past Drug Use History: None Reported - Past Family History Father Family Medical History: Chest Pain / Angina Additional Family Medical History / Comment(s): "lung problems" Mother Family Medical History: Cancer, Chest Pain / Angina, Congestive Heart Failure (CHF), Osteoarthritis (OA), Thyroid Disorder <Stas Tristan - Last Filed: 08/31/20 22:51> General Exam Limitations: no limitations General appearance: alert, in no apparent distress, obese Head exam: Present: atraumatic, normocephalic, normal inspection Eye exam: Present: normal appearance, PERRL, EOMI. Absent: scleral icterus, conjunctival injection, periorbital swelling Neck exam: Present: normal inspection. Absent: tenderness, meningismus, lymphadenopathy Respiratory exam: Present: normal lung sounds bilaterally. Absent: respiratory distress, wheezes, rales, rhonchi, stridor Cardiovascular Exam: Present: regular rate, normal rhythm, normal heart sounds. Absent: systolic murmur, diastolic murmur, rubs, gallop, clicks GI/Abdominal exam: Present: soft, tenderness (Left lower quadrant), guarding, hypoactive bowel sounds. Absent: distended, rebound, rigid Rectal exam: Present: normal inspection, decreased rectal tone Extremities exam: Present: normal inspection, full ROM, normal capillary refill. Absent: tenderness, pedal edema, joint swelling, calf tenderness Neurological exam: Present: alert, oriented X3, CN II-XII intact Psychiatric exam: Present: normal affect, normal mood Skin exam: Present: warm, dry, intact, normal color. Absent: rash <Stas Tristan - Last Filed: 08/31/20 22:51> Course Vital Signs 08/31/20 19:44 Temperature 98.3 F Pulse Rate 127 H Respiratory 20 Rate Blood Pressure 142/95 O2 Sat by Pulse 97 Oximetry Medical Decision Making - Lab Data Result diagrams: 08/31/20 20:28 08/31/20 20:28 <Carroll Dawson - Last Filed: 08/31/20 22:45> - Lab Data Result diagrams: 08/31/20 20:28 08/31/20 20:28 - Radiology Data Radiology results: report reviewed, image reviewed <Stas Tristan - Last Filed: 08/31/20 22:51> - Medical Decision Making Patient reevaluated by myself, Dr. Dawson. Patient states he's been having abdominal discomfort since his colostomy 2 weeks ago. Patient states he was told he had adenoma and would likely need further treatment. Abdomen is soft with mild tenderness left lower abdomen. Patient states he is having approximately 3 episodes daily of GI hemorrhage. Case discussed with Dr. Mike, who will admit for observation with consult with GI. (Carroll Dawson) 54-year-old male complaining of bright red blood per rectum, with a history of diagnosis of rectal cancer and an adenoma on recent scope. Labs, 1 mg Dilaudid, 4 mg Zofran, 1 L normal saline bolus, CT of abdomen and pelvis with contrast ordered. Occult blood test ordered. Occult blood negative. Rest of labs unremarkable. Case discussed with Dr. Dawson, was decided the patient could be admitted to observation. (Stas Tristan) - Lab Data Lab Results 08/31/20 08/31/20 08/31/20 Range/Units 20:28 20:28 20:28 WBC 7.1 (3.8-10.6) k/uL RBC 5.22 (4.30-5.90) m/uL Hgb 14.6 (13.0-17.5) gm/dL Hct 43.5 (39.0-53.0) % MCV 83.3 (80.0-100.0) fL MCH 27.9 (25.0-35.0) pg MCHC 33.6 (31.0-37.0) g/dL RDW 14.1 (11.5-15.5) % Plt Count 245 (150-450) k/uL MPV 8.0 Neutrophils % 63 % Lymphocytes % 24 % Monocytes % 7 % Eosinophils % 4 % Basophils % 1 % Neutrophils # 4.5 (1.3-7.7) k/uL Lymphocytes # 1.7 (1.0-4.8) k/uL Monocytes # 0.5 (0-1.0) k/uL Eosinophils # 0.3 (0-0.7) k/uL Basophils # 0.0 (0-0.2) k/uL Manual Slide Review Performed RBC Morphology Normal PT (9.0-12.0) sec INR (<1.2) APTT (22.0-30.0) sec Sodium 137 (137-145) mmol/L Potassium 4.1 (3.5-5.1) mmol/L Chloride 104 (98-107) mmol/L Carbon Dioxide 20 L (22-30) mmol/L Anion Gap 13 mmol/L BUN 12 (9-20) mg/dL Creatinine 0.58 L (0.66-1.25) mg/dL Est GFR (CKD-EPI)AfAm >90 (>60 ml/min/1.73 sqM) Est GFR (CKD-EPI)NonAf >90 (>60 ml/min/1.73 sqM) Glucose 210 H (74-99) mg/dL Calcium 9.8 (8.4-10.2) mg/dL Magnesium 1.9 (1.6-2.3) mg/dL Total Bilirubin 0.7 (0.2-1.3) mg/dL AST 44 (17-59) U/L ALT 66 H (4-49) U/L Alkaline Phosphatase 124 (38-126) U/L Troponin I <0.012 (0.000-0.034) ng/mL Total Protein 7.8 (6.3-8.2) g/dL Albumin 4.7 (3.5-5.0) g/dL Lipase 91 (23-300) U/L Stool Occult Blood (Negative) Blood Type Blood Type Recheck Bld Type Recheck Status Antibody Screen Spec Expiration Date 08/31/20 08/31/20 08/31/20 Range/Units 20:46 20:56 21:05 WBC (3.8-10.6) k/uL RBC (4.30-5.90) m/uL Hgb (13.0-17.5) gm/dL Hct (39.0-53.0) % MCV (80.0-100.0) fL MCH (25.0-35.0) pg MCHC (31.0-37.0) g/dL RDW (11.5-15.5) % Plt Count (150-450) k/uL MPV Neutrophils % % Lymphocytes % % Monocytes % % Eosinophils % % Basophils % % Neutrophils # (1.3-7.7) k/uL Lymphocytes # (1.0-4.8) k/uL Monocytes # (0-1.0) k/uL Eosinophils # (0-0.7) k/uL Basophils # (0-0.2) k/uL Manual Slide Review RBC Morphology PT 9.7 (9.0-12.0) sec INR 0.9 (<1.2) APTT 21.1 L (22.0-30.0) sec Sodium (137-145) mmol/L Potassium (3.5-5.1) mmol/L Chloride (98-107) mmol/L Carbon Dioxide (22-30) mmol/L Anion Gap mmol/L BUN (9-20) mg/dL Creatinine (0.66-1.25) mg/dL Est GFR (CKD-EPI)AfAm (>60 ml/min/1.73 sqM) Est GFR (CKD-EPI)NonAf (>60 ml/min/1.73 sqM) Glucose (74-99) mg/dL Calcium (8.4-10.2) mg/dL Magnesium (1.6-2.3) mg/dL Total Bilirubin (0.2-1.3) mg/dL AST (17-59) U/L ALT (4-49) U/L Alkaline Phosphatase (38-126) U/L Troponin I (0.000-0.034) ng/mL Total Protein (6.3-8.2) g/dL Albumin (3.5-5.0) g/dL Lipase (23-300) U/L Stool Occult Blood Negative (Negative) Blood Type O Positive Blood Type Recheck O Pos Bld Type Recheck Status No Antibody Screen NEGATIVE Spec Expiration Date 09/03/20202355 - Radiology Data CT of abdomen and pelvis.: No acute abnormality. (Stas Tristan) Disposition <Carroll Dawson - Last Filed: 08/31/20 22:45> Is patient prescribed a controlled substance at d/c from ED?: No Time of Disposition: 22:51 <Stas Tristan - Last Filed: 08/31/20 22:51> Clinical Impression: Abdominal pain, GI bleed Disposition: ADMITTED IP TO THIS [facility] Condition: Stable Referrals: None,Stated [Primary Care Provider] - 1-2 days
[2020-08-31 20:37] LABS: Basophils % (A) 1 %; Eosinophils # (A) 0.3 k/uL (0-0.7); Eosinophils % (A) 4 %; HCT 43.5 % (39.0-53.0); HGB 14.6 gm/dL (13.0-17.5); Lymphocytes # (A) 1.7 k/uL (1.0-4.8); Lymphocytes % (A) 24 %; MCH 27.9 pg (25.0-35.0); MCHC 33.6 g/dL (31.0-37.0); MCV 83.3 fL (80.0-100.0); Monocytes # (A) 0.5 k/uL (0-1.0); Monocytes % (A) 7 %; Neutrophils # (A) 4.5 k/uL (1.3-7.7); Neutrophils % (A) 63 %; Platelet Count 245 k/uL (150-450); RBC 5.22 m/uL (4.30-5.90); RDW 14.1 % (11.5-15.5); WBC 7.1 k/uL (3.8-10.6)
[2020-08-31 20:43] LABS: Sodium 137 mmol/L (137-145)
[2020-08-31 20:44] LABS: ALT 66 U/L (4-49); AST 44 U/L (17-59); African American GFR (CKD) >90 (>60 ml/min/1.73 sqM); Albumin 4.7 g/dL (3.5-5.0); Alkaline Phosphatase 124 U/L (38-126); Anion Gap 13 mmol/L; Blood Urea Nitrogen 12 mg/dL (9-20); Calcium 9.8 mg/dL (8.4-10.2); Carbon Dioxide 20 mmol/L (22-30); Chloride 104 mmol/L (98-107); Glucose 210 mg/dL (74-99); Lipase 91 U/L (23-300); Magnesium 1.9 mg/dL (1.6-2.3); Non-African American GFR(CKD) >90 (>60 ml/min/1.73 sqM); Potassium 4.1 mmol/L (3.5-5.1); Total Bilirubin 0.7 mg/dL (0.2-1.3); Total Protein 7.8 g/dL (6.3-8.2)
[2020-08-31 21:36] LABS: INR 0.9 (<1.2); Prothrombin Time 9.7 sec (9.0-12.0)
[2020-08-31 21:48] LABS: Partial Thromboplastin Time 21.1 sec (22.0-30.0)
--- NOTE | 2020-08-31 21:51 | CT ---
EXAMINATION TYPE: CT abdomen pelvis w con DATE OF EXAM: 08/31/2020 COMPARISON: 05/19/2020. HISTORY: LLQ abdominal pain and blood in stool. CT DLP: 2302.3 mGycm Automated exposure control for dose reduction was used. TECHNIQUE: Helical acquisition of images was performed from the lung bases through the pelvis. CONTRAST: Performed without Oral Contrast and with IV Contrast, patient injected with 100ml mL of Isovue 300. FINDINGS: LUNG BASES: No significant abnormality is appreciated. LIVER/GB: No acute abnormality is appreciated. Hepatic steatosis and cholecystectomy. PANCREAS: No significant abnormality is seen. SPLEEN: No significant abnormality is seen. ADRENALS: No significant abnormality is seen. KIDNEYS: No acute abnormality is seen. Stable 3.5 cm right renal cyst. Additional sub-5 mm left renal cyst also seen, stable. FREE AIR: No free air is visualized. RETROPERITONEAL ADENOPATHY: None visualized REPRODUCTIVE ORGANS: No significant abnormality is seen URINARY BLADDER: No significant abnormality is seen. PELVIC ADENOPATHY: None visualized. OSSEOUS STRUCTURES: No acute abnormality is seen. L3-S1 fusion and thoracic neurostimulator device s een. BOWEL: No acute abnormality is seen. Post surgical changes involving the splenic colonic flexure. OTHER: None. IMPRESSION: NO ACUTE ABNORMALITY.
[2020-08-31] MEDS ORDERED: ONDANSETRON 4 MG/2 ML VIAL IVP PRN (22:46)
[2020-08-31] MEDS ORDERED: NALOXONE 0.4 MG/ML 1 ML VIAL IV PRN (22:46)
[2020-08-31] MEDS: HYDROmorphone 1 MG/ML 1 ML SYRINGE IVP PRN (23:13)
[2020-08-31] MEDS ORDERED: methocarbamoL 750 MG TAB PO PRN (23:26)
[2020-08-31] MEDS ORDERED: ONDANSETRON 4 MG TAB PO PRN (23:26)
[2020-08-31] MEDS ORDERED: DICYCLOMINE 20 MG TAB PO PRN (23:26)
[2020-08-31] MEDS ORDERED: SIMETHICONE 80 MG CHEWABLE PO PRN (23:26)
[2020-08-31] MEDS ORDERED: SENNOSIDES-DOCUSATE SODIUM 1 EACH TAB PO PRN (23:26)
--- NOTE | 2020-08-31 23:37 | P.HPIM ---
History of Present Illness H&P Date: 08/31/20 Chief Complaint: Left lower quadrant abdominal pain 54-year-old male with hypertension, diabetes Patient comes in due to severe left lower quadrant abdominal pain stabbing in nature localized nonradiating not related to food or mobility no aggravating or alleviating factor. Patient takes Percocet to lower back pain however it was not helping with his abdominal pain he claims that this has been going on for couple days and getting worse. Everything goes back to 2 weeks ago when he had a colonoscopy adenoma was found and biopsy was taken he still waiting for results however since then he noticed initially black bowel movements and then later became over the past couple days loose bowel movement with red colored blood in it he denies any tenesmus he denies any urinary changes he denies any nausea or vomiting. He reports that these loose red bowel movements are h appening couple times a day made him concerned however over the past 2 days he noticed increase left lower quadrant abdominal pain which made him decide to come in today He also claims some weight loss about 10 pounds over the past 2 weeks. He denies any recent traveling Denies any unsanitary food or drink he denies any sick contact denies any fevers chills nausea vomiting chest pain trouble ernestina thing He recalls back in February he was found to have intussusception and mass blocking his bowels which was removed and then surgery was complicated with infection and bleeding at that time. 2 weeks ago he was having a follow-up colonoscopy He also adds that about a year ago back in July or August of last year he had a severe case of recurrent diverticulitis in July and then again in [facility]. In the ED blood work was done showed stable normal hemoglobin no leukocytosis. Labs overall unremarkable. Occult blood test and stool was negative CT of the abdomen was negative showed no acute process However patient kept complaining of severe left lower quadrant abdominal pain barely controlled with IV pain meds for which he is kept in the hospital for pain control IV hydration and evaluation by GI Review of Systems Pertinent positives as noted in HPI. All other systems were reviewed and are negative Past Medical History Past Medical History: Asthma, Chest Pain / Angina, Diabetes Mellitus, GERD/Reflux, Hyperlipidemia, Hypertension, Myocardial Infarction ([place]), Mitral Valve Prolapse (MVP), Pulmonary Embolus (PE), Sleep Apnea/CPAP/BIPAP Additional Past Medical History / Comment(s): Obesity, chronic asthmatic bronchitis, previous history of pulmonary embolism, objective sleep apnea, diabetes mellitus, hypertension, hyperlipidemia, previous history of myocardial infarction with underlying coronary artery disease, renal cysts, chronic back pain secondary to herniated lumbar disc disease with symptoms of sciatica, history of right lower extremity fracture at the age of 13, history of C. diff colitis approximately 4 years ago, history of bleeding peptic ulcer, nephrolithiasis, previous history of UTI and secondary sepsis. Last Myocardial Infarction Date:: 2011 History of Any Multi-Drug Resistant Organisms: MRSA Date of last positivie culture/infection: 2016 MDRO Source:: left axilla Past Surgical History: Appendectomy, Back Surgery, Cholecystectomy, Heart Catheterization, Hernia Repair Additional Past Surgical History / Comment(s): 2007 back surgery with decompression fusion at [facility], 2011, 2016 cardiac cath, multiple ESWL/ureteral stents/ double J catheters, L inquinal hernia repair, PICC line for ABX for urosepsis-since removed., spinal stimulator and lumbar laminectomy 12/27. Colectomy February 2020 Past Anesthesia/Blood Transfusion Reactions: No Reported Reaction Past Psychological History: No Psychological Hx Reported Smoking Status: Never smoker Past Alcohol Use History: None Reported Past Drug Use History: None Reported - Past Family History Father Family Medical History: Chest Pain / Angina Additional Family Medical History / Comment(s): "lung problems" Mother Family Medical History: Cancer, Chest Pain / Angina, Congestive Heart Failure (CHF), Osteoarthritis (OA), Thyroid Disorder Medications and Allergies Home Medications Medication Instructions Recorded Confirmed Type Omeprazole [PriLOSEC] 20 mg PO DAILY 12/11/17 05/19/20 History Carvedilol [Coreg] 12.5 mg PO BID 07/22/19 05/19/20 History glipiZIDE XL [Glucotrol XL] 5 mg PO BID 07/22/19 05/19/20 History Atorvastatin [Lipitor] 20 mg PO DAILY 08/26/19 05/19/20 History Insulin Glargine,Hum.rec.anlog 30 unit SQ BID 08/26/19 05/19/20 History [Basaglar Kwikpen U-100] Aspirin 325 mg PO DAILY 30 Days #30 tab 09/02/19 05/19/20 Rx Gabapentin [Neurontin] 300 mg PO BID 10/12/19 05/19/20 History INSULIN LISPRO (HumaLOG) [humaLOG] 10 unit SQ TID-W/MEALS 02/16/20 05/19/20 History lisinopriL [Zestril] 10 mg PO DAILY #30 tab 02/17/20 05/19/20 Rx Simethicone Chew [Mylicon Chew] 80 mg PO BID PRN 04/08/20 05/19/20 History Tamsulosin [Flomax] 0.4 mg PO DAILY 04/08/20 05/19/20 History Dicyclomine HCl 20 mg PO QID PRN 05/07/20 05/19/20 History Mag Hydrox/Aluminum Hyd/Simeth 10 - 20 ml PO ACHS PRN 05/07/20 05/19/20 History [Mylanta Maximum Strength Liq] Ondansetron [Zofran] 4 mg PO Q6H PRN 05/07/20 05/19/20 History Sennosides/Docusate Sodium [Senna 1 each PO BID PRN #10 tablet 05/07/20 05/19/20 Rx Plus 8.6-50 mg Tablet] methocarbamoL [Robaxin] 750 mg PO TID PRN 05/07/20 05/19/20 History oxyCODONE-APAP 7.5-325MG [Percocet 1 tab PO Q6HR PRN 05/07/20 05/19/20 History 7.5-325 mg] Allergies Allergy/AdvReac Type Severity Reaction Status Date / Time doxycycline Allergy Swelling Verified 08/31/20 19:50 ketorolac tromethamine Allergy Rash/Hives Verified 08/31/20 19:50 [From Toradol] morphine Allergy Rash/Hives Verified 08/31/20 19:50 metoclopramide HCl AdvReac Dystonic Verified 08/31/20 19:50 [From Reglan] Reaction prochlorperazine edisylate AdvReac Dystonic Verified 08/31/20 19:50 [From Compazine] Reaction prochlorperazine maleate AdvReac Dystonic Verified 08/31/20 19:50 [From Compazine] Reaction Physical Exam Vitals: Vital Signs Temp Pulse Resp BP Pulse Ox 08/31/20 19:44 98.3 F 127 H 20 142/95 97 Intake and Output 08/31/20 08/31/2008/31/21 06:59 14:59 22:59 Other: Weight 130.771 kg Constitutional: No acute distress, conversant, pleasant Eyes: Anicteric sclerae, moist conjunctiva, Pupils equal round reactive to light ENMT: NC/AT Oropharynx clear, no erythema, or exudates Neck: Supple, FROM, no masses, or JVD No carotid bruits No thyromegaly Lungs: Clear to auscultation Clear to percussion Normal respiratory effort, no accessory muscle use Cardiovascular: Heart regular in rate and rhythm, No murmurs, gallops, or rubs No peripheral edema Abdominal: Soft Left lower quadrant tenderness to deep palpation, no guarding, rebound or rigidity Abdomen moving with respiration Normoactive bowel sounds No hepatomegaly, No splenomegaly No palpable mass No abdominal wall hernia noted Skin: Normal temperature, tone, texture, turgor No induration No subcutaneous nodules No rash, lesions No ulcers Extremities: No digital cyanosis No clubbing Pedal pulses intact and symmetrical Radial pulses intact and symmetrical No calf tenderness Psychiatric: Alert and oriented to person, place and time Appropriate affect fair judgement Neuro Muscles Strength 5/5 in all 4 extremities Sensation to light touch grossly present throughout Cranial nerves II-XII grossly intact No focal sensory deficits Lymphatics: no palpable cervical or supraclavicular , or inguinal lymph nodes Results CBC & Chem 7: 08/31/20 20:28 08/31/20 20:28 Labs: Abnormal Lab Results - Last 24 Hours (Table) 08/31/20 08/31/20 Range/Units 20:28 21:05 APTT 21.1 L (22.0-30.0) sec Carbon Dioxide 20 L (22-30) mmol/L Creatinine 0.58 L (0.66-1.25) mg/dL Glucose 210 H (74-99) mg/dL ALT 66 H (4-49) U/L Assessment and Plan Assessment: Severe uncontrolled left lower quadrant abdominal pain Rule out GI bleeding Plan Nothing by mouth IV fluid hydration with normal saline Pain control with Dilaudid GI evaluation Monitor hemoglobin PPI Resume home meds simethicone, Bentyl CT abdomen showed no acute pathology Chronic conditions Diabetes mellitus, insulin sliding scale hold oral hypoglycemic agent hold long- acting insulin while patient nothing by mouth Hypertension resume Coreg BPH resume Flomax Preformed a thorough record review from recent hospitalization as summarized in HPI CODE STATUS: Full code DVT prophylaxis: Mechanical Discussed with: Patient, ER, Anticipated length of stay less than [address]: Home A total of 65 minutes was spent on the care of this complex patient more than 50% of the time was spent in counseling and care coordination.
[2020-09-01] MEDS: SODIUM CHLORIDE 0.9% 1,000 ML IV SCH ×2 (01:14→12:30)
[2020-09-01] MEDS: carvediloL 12.5 MG TAB PO SCH ×2 (01:18→09:16)
[2020-09-01] MEDS: HYDROmorphone 1 MG/ML 1 ML SYRINGE IVP PRN ×4 (02:23→12:30)
[2020-09-01] MEDS ORDERED: PANTOPRAZOLE 40 MG TABLET PO SCH (07:30)
[2020-09-01] MEDS: INSULIN ASPART (NovoLOG) 100 UNIT/ML VIAL SQ SCH ×2 (09:00→12:32)
[2020-09-01] MEDS ORDERED: ATORVASTATIN 20 MG TAB PO SCH (09:00)
[2020-09-01] MEDS ORDERED: lisinopriL 10 MG TAB PO SCH (09:00)
[2020-09-01] MEDS ORDERED: GABAPENTIN 300 MG CAP PO SCH (09:00)
[2020-09-01] MEDS ORDERED: TAMSULOSIN 0.4 MG CAP.ER.24H PO SCH (09:00)
[2020-09-01 09:07] LABS: Glucose,Whole Blood 155 mg/dL (75-99)
[2020-09-01 09:12] LABS: Basophils # (A) 0.04 X 10*3/uL (0.00-0.10); Basophils % (A) 0.6 %; Eosinophils # (A) 0.33 X 10*3/uL (0.04-0.35); HCT 37.6 % (39.6-50.0); Lymphocytes # (A) 1.54 X 10*3/uL (0.90-5.00); Lymphocytes % (A) 23.3 %; MCH 27.6 pg (27.0-32.0); MCHC 31.9 g/dL (32.0-37.0); MCV 86.4 fL (80.0-97.0); Mean Platelet Volume 9.8 fL (9.5-12.2); Monocytes # (A) 0.63 X 10*3/uL (0.20-1.00); Monocytes % (A) 9.5 %; Neutrophils # (A) 4.06 X 10*3/uL (1.80-7.70); Neutrophils % (A) 61.3 %; Platelet Count 263 X 10*3/uL (140-440); RBC 4.35 X 10*6/uL (4.40-5.60); RDW 14.3 % (11.5-14.5); WBC 6.62 X 10*3/uL (4.50-10.00)
[2020-09-01] MEDS: oxyCODONE-APAP 7.5-325MG 1 EACH TAB PO PRN ×2 (10:22→16:33)
[2020-09-01 11:43] LABS: Glucose,Whole Blood 161 mg/dL (75-99)
[2020-09-01 14:39] VITALS: BP 103/65; PULSE 78; RESP 14; TEMP 98.1
--- NOTE | 2020-09-01 14:39 | P.PN ---
Subjective Progress Note Date: 09/01/20 Principal diagnosis: Lower GI bleed Hospital course: Patient is a 54-year-old male with a past medical history of CAD with previous [place], hypertension, hyperlipidemia, type 2 insulin-dependent diabetes mellitus, diverticulosis with previous episode of diverticulitis, neuropathy, GERD, BPH, and chronic back pain.. Patient currently admitted under our services for reports of lower GI bleed. Patient reports that he had a colonoscopy 2 weeks ago in which he was told he had findings of an adenoma and a biopsy was o btained. Patient reports over the past 2 weeks he has had a couple episodes of dark black tarry stools and 3 days ago he developed significant pain in his left lower quadrant which was followed the next day with episodes of bright red bloody stools. CT abdomen and pelvis completed in the emergency department was negative for acute abnormality. Labs monitored and have revealed a drop in patient's hemoglobin from 14.6 down to 12.0 over an 8 hour period. Physical exam: Patient was seen and fully evaluated at the bedside this morning. He reports significant tenderness upon palpation to left lower quadrant of abdomen. He denies having any further episodes of hematochezia since admission. Patient denies having any other complaints including headache, lightheadedness, dizziness, chest pain, palpitations, shortness of breath, nausea, or vomiting. Hemoglobin currently 12.0. General: Non toxic, no distress, appears at stated age Derm: warm, dry Head: atraumatic, normocephalic, symmetric Eyes: EOMI, no lid lag, anicteric sclera Mouth: no lip lesion, mucus membranes moist Cardiovascular: S1S2 normal with regular rate and rhythm. No murmur, positive posterior tibial pulses bilaterally, and cap refill less than 2 seconds. Lungs: Respirations even, regular, and unlabored on room air. Lungs CTA bilaterally. No wheezing, rhonchi, or rales noted. No accessory muscle usage. Abdominal: Obese abdomen, soft bowel sounds 4 quadrants, Positive tenderness to palpation in left lower quadrant. No guarding, no appreciable organomegaly. Ext: no gross muscle atrophy, no edema, no contractures Neuro: GCS 15. Speech clear. CN II-XI grossly intact, no focal neuro deficits Psych: Alert, oriented, appropriate affect Assessment and Plan of Care: Lower GI bleed -CT abdomen and pelvis negative for acute process. -GI following, appreciate recommendations. -Awaiting colonoscopy report to be received. -Hemoglobin 12.0 from previous 14.6 yesterday evening. -Will trend H&H every 6 hours. -Continue to monitor for episodes of hematochezia and/or melena. -GI prophylaxis with Protonix 40 mg daily. Diabetes mellitus -Glycemic protocol with NovoLog sliding scale. -Heart healthy and carb consistent low fiber diet. Hypertension -Continue daily medication management with carvedilol and lisinopril. GERD -GI prophylaxis with Protonix 40 mg daily Chronic lower back pain with neuropathy and sciatica -Continue daily medication regimen with gabapentin, dicyclomine, and Percocet. BPH -Continue Flomax CODE STATUS: Full code DVT prophylaxis: SCDs Discussed with: Patient and RN Anticipated discharge date: Clinical course to determine Anticipated discharge place: Home A total of 40 minutes was spent on the care of this complex patient more than 50% of the time was spent in counseling and care coordination. Objective - Vital Signs Vital signs: Vital Signs Temp 98.2 F 09/01/20 08:39 Pulse 81 09/01/20 08:39 Resp 17 09/01/20 08:39 BP 138/78 09/01/20 08:39 Pulse Ox 94 L 09/01/20 08:39 Intake & Output 08/31/20 09/01/20 09/01/20 18:59 06:59 18:59 Weight 130.771 kg - Labs CBC & Chem 7: 09/01/20 04:43 08/31/20 20:28 Labs: Abnormal Lab Results - Last 24 Hours (Table) 08/31/20 08/31/20 09/01/20 Range/Units 20:28 21:05 04:43 RBC 4.35 L (4.40-5.60) X 10*6/uL Hgb 12.0 L (13.0-17.0) g/dL Hct 37.6 L (39.6-50.0) % MCHC 31.9 L (32.0-37.0) g/dL APTT 21.1 L (22.0-30.0) sec Carbon Dioxide 20 L (22-30) mmol/L Creatinine 0.58 L (0.66-1.25) mg/dL Glucose 210 H (74-99) mg/dL POC Glucose (mg/dL) (75-99) mg/dL ALT 66 H (4-49) U/L 09/01/20 Range/Units 08:53 RBC (4.40-5.60) X 10*6/uL Hgb (13.0-17.0) g/dL Hct (39.6-50.0) % MCHC (32.0-37.0) g/dL APTT (22.0-30.0) sec Carbon Dioxide (22-30) mmol/L Creatinine (0.66-1.25) mg/dL Glucose (74-99) mg/dL POC Glucose (mg/dL) 155 H (75-99) mg/dL ALT (4-49) U/L
[2020-09-01 15:25] LABS: HCT 38.8 % (39.0-53.0); HGB 12.9 gm/dL (13.0-17.5); MCH 27.6 pg (25.0-35.0); MCHC 33.4 g/dL (31.0-37.0); MCV 82.6 fL (80.0-100.0); Mean Platelet Volume 6.9; Platelet Count 267 k/uL (150-450); RBC 4.69 m/uL (4.30-5.90); RDW 14.5 % (11.5-15.5)
--- NOTE | 2020-09-01 15:51 | P.DS ---
Providers Date of admission: 08/31/20 22:45 Expected date of discharge: 09/01/20 Attending physician: Cherry Sheikh MD Consults: 08/31/20 22:46 Consult Physician Stat Consulting Provider: Rachael Arora Consult Reason/Comments: GI bleed Do you want consulting provider notified?: Yes Primary care physician: Stated None Hospital Course: Discharge diagnoses : Lower GI bleed Diabetes mellitus Hypertension GERD Chronic lower back pain with neuropathy and sciatica BPH Hospital course: Patient is a 54-year-old male with a past medical history of CAD with previous [place], hypertension, hyperlipidemia, type 2 insulin-dependent diabetes mellitus, diverticulosis with previous episode of diverticulitis, neuropathy, GERD, BPH, and chronic back pain.. Patient currently admitted under our services for reports of lower GI bleed. CT abdomen and pelvis completed in the emergency department was negative for acute abnormality. Labs completing in ED showed CBC, BMP, and coags revealing no significant abnormalities. Upon examination, patient reports that he had a colonoscopy 2 weeks ago in which he was told he had findings of an adenoma and a biopsy was obtained. Patient reports over the past 2 weeks he has had a couple episodes of dark black tarry stools and 3 days ago he developed significant pain in his left lower quadrant which was followed the next day with episodes of bright red bloody stools. Patient was monitored overnight and reports having no further episodes of hematochezia. He was seen and evaluated by GI. Gastroenterology was able to obtain copy of colonoscopy report and cleared patient for discharge at this time. Hgb upon discharge stable at 12.0. Patient being discharged home at this time and to follow up as instructed in 1 week with gastroenterology. Physical exam: Patient was seen and fully evaluated at the bedside. He continues to deny having any further episodes of hematochezia since admission. Patient denies having any other complaints including headache, lightheadedness, dizziness, chest pain, palpitations, shortness of breath, nausea, or vomiting. Hemoglobin currently 12.0. General: Non toxic, no distress, appears at stated age Derm: warm, dry Head: atraumatic, normocephalic, symmetric Eyes: EOMI, no lid lag, anicteric sclera Mouth: no lip lesion, mucus membranes moist Cardiovascular: S1S2 normal with regular rate and rhythm. No murmur, positive posterior tibial pulses bilaterally, and cap refill less than 2 seconds. Lungs: Respirations even, regular, and unlabored on room air. Lungs CTA bilaterally. No wheezing, rhonchi, or rales noted. No accessory muscle usage. Abdominal: Obese abdomen, soft bowel sounds 4 quadrants, Positive tenderness to palpation in left lower quadrant. No guarding, no appreciable organomegaly. Ext: no gross muscle atrophy, no edema, no contractures Neuro: GCS 15. Speech clear. CN II-XI grossly intact, no focal neuro deficits Psych: Alert, oriented, appropriate affect A total of 45 minutes of time were spent preparing this complex discharge summary. Patient Condition at Discharge: Stable Plan - Discharge Summary Discharge Rx Participant: No New Discharge Prescriptions: Continue Omeprazole [PriLOSEC] 20 mg PO BID Carvedilol [Coreg] 12.5 mg PO BID Insulin Glargine,Hum.rec.anlog [Basaglar Kwikpen U-100] 30 unit SQ BID Atorvastatin [Lipitor] 20 mg PO DAILY Gabapentin [Neurontin] 300 mg PO TID PRN PRN Reason: Pain INSULIN LISPRO (HumaLOG) [humaLOG] 10 unit SQ TID-W/MEALS lisinopriL [Zestril] 10 mg PO DAILY #30 tab Tamsulosin [Flomax] 0.4 mg PO DAILY oxyCODONE-APAP 7.5-325MG [Percocet 7.5-325 mg] 1 tab PO Q6HR PRN PRN Reason: Pain Dicyclomine HCl 20 mg PO QID PRN PRN Reason: ibs Discharge Medication List Omeprazole [PriLOSEC] 20 mg PO BID 12/11/17 [History] Carvedilol [Coreg] 12.5 mg PO BID 07/22/19 [History] Atorvastatin [Lipitor] 20 mg PO DAILY 08/26/19 [History] Insulin Glargine,Hum.rec.anlog [Basaglar Kwikpen U-100] 30 unit SQ BID 08/26/19 [History] Gabapentin [Neurontin] 300 mg PO TID PRN 10/12/19 [History] INSULIN LISPRO (HumaLOG) [humaLOG] 10 unit SQ TID-W/MEALS 02/16/20 [History] lisinopriL [Zestril] 10 mg PO DAILY #30 tab 02/17/20 [Rx] Tamsulosin [Flomax] 0.4 mg PO DAILY 04/08/20 [History] Dicyclomine HCl 20 mg PO QID PRN 05/07/20 [History] oxyCODONE-APAP 7.5-325MG [Percocet 7.5-325 mg] 1 tab PO Q6HR PRN 05/07/20 [History] Follow up Appointment(s)/Referral(s): Mike Diallo MD [STAFF PHYSICIAN] - 1 Week Francois Pinon [STAFF PHYSICIAN] - 1-2 Days Activity/Diet/Wound Care/Special Instructions: Activity: As tolerated Diet: Heart healthy carb consistent diet Special Instructions: Avoid NSAIDs. Follow-up with gastroenterology in 1 week. Follow-up with PCP in 1-2 days. Discharge Disposition: HOME SELF-CARE
--- NOTE | 2020-09-02 10:17 | P.CONS ---
History of Present Illness - Reason for Consult Consult date: 09/01/20 GI bleed Requesting physician: Cherry Sheikh - Chief Complaint Blood per rectum - History of Present Illness 54-year-old male with multiple medical comorbidities including asthma, diabetes mellitus, hyperlipidemia, hypertension, prior [place], mitral valve prolapse, prior PE, JARED, obesity, and prior hospitalization for diverticulitis. He reports having EGD and colonoscopy and these were performed on 09/01/2020 with polypectomy and internal hemorrhoids noted on colonoscopy and EGD on 08/18/2020 significant for hiatal hernia and gastritis. Patient presented to the hospital on this occasion with complaints of bright red blood per rectum. However stool testing was negative for occult blood and patient's hemoglobin was found to be stable at 14.6. No further bleeding at that time. He is reporting some cramping diffuse abdominal pain. Review of Systems REVIEW OF SYSTEMS: CONSTITUTIONAL: Denies any fevers, chills, weight change or fatigue. CARDIOVASCULAR: Denies any chest pain, palpitations high or low blood pressures RESPIRATORY: Denies any shortness of breath, hemoptysis or cough. GENITOURINARY: No dysuria or hematuria. MUSCULOSKELETAL: No weakness reported. SKIN: Denies any new rashes or lesions, jaundice or pallor. PSYCHIATRIC: Denies any depression or anxiety. NEUROLOGY: Denies headache, denies any new focal deficits. EARS/NOSE/THROAT: No recent hearing change, congestion, nasal discharge or sore throat. EYES: No pain in eyes, discharge or change in vision. GASTROINTESTINAL: As per HPI. Past Medical History Past Medical History: Asthma, Chest Pain / Angina, Diabetes Mellitus, GERD/Reflux, Hyperlipidemia, Hypertension, Myocardial Infarction (RI), Mitral Valve Prolapse (MVP), Pulmonary Embolus (PE), Sleep Apnea/CPAP/BIPAP Additional Past Medical History / Comment(s): Obesity, chronic asthmatic bronc hitis, previous history of pulmonary embolism, objective sleep apnea, diabetes mellitus, hypertension, hyperlipidemia, previous history of myocardial infarction with underlying coronary artery disease, renal cysts, chronic back pain secondary to herniated lumbar disc disease with symptoms of sciatica, history of right lower extremity fracture at the age of 13, history of C. diff colitis approximately 4 years ago, history of bleeding peptic ulcer, nephrolithiasis, previous history of UTI and secondary sepsis. Last Myocardial Infarction Date:: 2011 History of Any Multi-Drug Resistant Organisms: MRSA Year Discovered:: 2016 MDRO Source:: left axilla Past Surgical History: Appendectomy, Back Surgery, Cholecystectomy, Heart Catheterization, Hernia Repair Additional Past Surgical History / Comment(s): 2007 back surgery with decompression fusion at [facility], 2011, 2016 cardiac cath, multiple ESWL/ureteral stents/ double J catheters, L inquinal hernia repair, PICC line for ABX for urosepsis-since removed., spinal stimulator and lumbar laminectomy 12/27. Colectomy February 2020 Past Anesthesia/Blood Transfusion Reactions: No Reported Reaction Past Psychological History: No Psychological Hx Reported Smoking Status: Never smoker Past Alcohol Use History: None Reported Past Drug Use History: None Reported - Past Family History Father Family Medical History: Chest Pain / Angina Additional Family Medical History / Comment(s): "lung problems" Mother Family Medical History: Cancer, Chest Pain / Angina, Congestive Heart Failure (CHF), Osteoarthritis (OA), Thyroid Disorder Medications and Allergies Home Medications Medication Instructions Recorded Confirmed Type Omeprazole [PriLOSEC] 20 mg PO BID 12/11/17 08/31/20 History Carvedilol [Coreg] 12.5 mg PO BID 07/22/19 08/31/20 History Atorvastatin [Lipitor] 20 mg PO DAILY 08/26/19 08/31/20 History Insulin Glargine,Hum.rec.anlog 30 unit SQ BID 08/26/19 08/31/20 History [Basaglar Kwikpen U-100] Gabapentin [Neurontin] 300 mg PO TID PRN 10/12/19 08/31/20 History INSULIN LISPRO (HumaLOG) [humaLOG] 10 unit SQ TID-W/MEALS 02/16/20 08/31/20 History lisinopriL [Zestril] 10 mg PO DAILY #30 tab 02/17/20 08/31/20 Rx Tamsulosin [Flomax] 0.4 mg PO DAILY 04/08/20 08/31/20 History Dicyclomine HCl 20 mg PO QID PRN 05/07/20 08/31/20 History oxyCODONE-APAP 7.5-325MG [Percocet 1 tab PO Q6HR PRN 05/07/20 08/31/20 History 7.5-325 mg] Allergies Allergy/AdvReac Type Severity Reaction Status Date / Time doxycycline Allergy Swelling Verified 08/31/20 19:50 ketorolac tromethamine Allergy Rash/Hives Verified 08/31/20 19:50 [From Toradol] morphine Allergy Rash/Hives Verified 08/31/20 19:50 metoclopramide HCl AdvReac Dystonic Verified 08/31/20 19:50 [From Reglan] Reaction prochlorperazine edisylate AdvReac Dystonic Verified 08/31/20 19:50 [From Compazine] Reaction prochlorperazine maleate AdvReac Dystonic Verified 08/31/20 19:50 [From Compazine] Reaction Physical Exam Vitals: Vital Signs Temp Pulse Pulse Resp BP BP Pulse Ox 09/01/20 08:39 98.2 F 81 17 138/78 94 L 09/01/20 05:36 99 F 90 18 133/86 96 09/01/20 01:20 98 F 97 18 167/99 97 08/31/20 23:07 104 H 16 167/99 96 08/31/20 19:44 98.3 F 127 H 20 142/95 97 Intake and Output 08/31/20 09/01/20 09/01/20 22:59 06:59 14:59 Output Total 100 Balance -100 Output: Urine 100 Other: # Voids 1 Weight 130.771 kg On physical examination, patient appears comfortable in no apparent distress. HEAD: Normocephalic, atraumatic. EYES: No scleral icterus. No conjunctival injection. MOUTH: No lesions, tongue midline. NECK: Trachea midline, no gross abnormalities. CHEST: Clear to auscultation with no wheezing or rhonchi appreciated. HEART: S1-S2 appreciated. ABDOMEN: Soft, nontender to palpation. Bowel sounds are positive. No organomegaly. No guarding or rigidity. EXTREMITIES: No pedal edema. SKIN: No rashes, no jaundice. NEUROLOGIC: Alert and oriented x3. No focal deficits. Results CBC & Chem 7: 09/01/20 14:59 08/31/20 20:28 Labs: Abnormal Lab Results - Last 24 Hours (Table) 08/31/20 08/31/20 09/01/20 Range/Units 20:28 21:05 04:43 RBC 4.35 L (4.40-5.60) X 10*6/uL Hgb 12.0 L (13.0-17.0) g/dL Hct 37.6 L (39.6-50.0) % MCHC 31.9 L (32.0-37.0) g/dL APTT 21.1 L (22.0-30.0) sec Carbon Dioxide 20 L (22-30) mmol/L Creatinine 0.58 L (0.66-1.25) mg/dL Glucose 210 H (74-99) mg/dL POC Glucose (mg/dL) (75-99) mg/dL ALT 66 H (4-49) U/L 09/01/20 09/01/20 Range/Units 08:53 11:42 RBC (4.40-5.60) X 10*6/uL Hgb (13.0-17.0) g/dL Hct (39.6-50.0) % MCHC (32.0-37.0) g/dL APTT (22.0-30.0) sec Carbon Dioxide (22-30) mmol/L Creatinine (0.66-1.25) mg/dL Glucose (74-99) mg/dL POC Glucose (mg/dL) 155 H 161 H (75-99) mg/dL ALT (4-49) U/L Assessment and Plan (1) GI bleed Narrative/Plan: 54-year-old male with multiple medical comorbidities presenting with blood per rectum. He reports a prior episode of diverticulitis. He has had both EGD and colonoscopy in 08/2020 with findings of gastritis, hiatal hernia, polypectomy and hemorrhoids. Unclear if GI bleed is secondary to hemorrhoids with normal hemoglobin of 14.6, diverticular bleed, or other etiology. No further bleeding since presentation. Status: Acute Code(s): K92.2 - GASTROINTESTINAL HEMORRHAGE, UNSPECIFIED SNOMED Code(s): 88195043 (2) Abdominal pain Status: Acute Code(s): R10.9 - UNSPECIFIED ABDOMINAL PAIN SNOMED Code(s): 78181957 Plan: Supportive care Okay for diet as tolerated Continue dicyclomine therapy Continue to monitor hemoglobin and hematocrit and transfuse as needed No plan for endoscopic evaluation is a patient underwent EGD and colonoscopy at [facility] in 08/2019 Okay for discharge when otherwise medically stable Patient can follow-up in the GI clinic with the rubber stamp maker who performed his EGD and colonoscopy for results of polypectomy and biopsies Thank you for allowing us to participate in the care of the patient
== END 2020-09-01 17:18 | disposition home or self-care (01) ==
LOC: EC 19:39 → 6NMEDSUR 22:45
PROVIDERS: ADMIT Internal Medicine; ATTEND Internal Medicine
DX: K92.1 Melena (principal); R10.32 Left lower quadrant pain; K21.9 Gastro-esophageal reflux disease without esophagitis; D12.6 Benign neoplasm of colon, unspecified; K64.8 Other hemorrhoids; K57.91 Diverticulosis of intestine, part unspecified, without perforation or abscess with bleeding; E78.5 Hyperlipidemia, unspecified; I10 Essential (primary) hypertension; I34.1 Nonrheumatic mitral (valve) prolapse; J44.9 Chronic obstructive pulmonary disease, unspecified; G47.33 Obstructive sleep apnea (adult) (pediatric); Z99.89 Dependence on other enabling machines and devices; I25.10 Atherosclerotic heart disease of native coronary artery without angina pectoris; N28.1 Cyst of kidney, acquired; N40.0 Benign prostatic hyperplasia without lower urinary tract symptoms; E11.42 Type 2 diabetes mellitus with diabetic polyneuropathy; G89.29 Other chronic pain; M51.16 Intervertebral disc disorders with radiculopathy, lumbar region; E66.9 Obesity, unspecified; Z68.41 Body mass index [BMI] 40.0-44.9, adult; Z79.4 Long term (current) use of insulin; Z79.82 Long term (current) use of aspirin; Z79.891 Long term (current) use of opiate analgesic; Z79.899 Other long term (current) drug therapy; Z88.1 Allergy status to other antibiotic agents; Z88.5 Allergy status to narcotic agent; Z88.8 Allergy status to other drugs, medicaments and biological substances; Z85.048 Personal history of other malignant neoplasm of rectum, rectosigmoid junction, and anus; I25.2 Old myocardial infarction; Z86.711 Personal history of pulmonary embolism; Z87.11 Personal history of peptic ulcer disease; Z87.440 Personal history of urinary (tract) infections; Z86.14 Personal history of Methicillin resistant Staphylococcus aureus infection; Z86.19 Personal history of other infectious and parasitic diseases; Z87.442 Personal history of urinary calculi; Z87.81 Personal history of (healed) traumatic fracture; Z90.49 Acquired absence of other specified parts of digestive tract; Z98.1 Arthrodesis status; Z96.82 Presence of neurostimulator; Z98.890 Other specified postprocedural states; Z87.19 Personal history of other diseases of the digestive system; Z86.010 Personal history of colon polyps; Z82.61 Family history of arthritis; Z80.9 Family history of malignant neoplasm, unspecified; Z83.6 Family history of other diseases of the respiratory system; Z83.49 Family history of other endocrine, nutritional and metabolic diseases
CPT/HCPCS: 36415; 74177; 80053; 82272; 83690; 83735; 84484; 85025; 85027; 85610; 85730; 86850; 86900; 86901; 96361; 96374; 96375; 96376; 99285

== ENCOUNTER 2020-10-18 20:29 | Emergency (ER) | payer OTHER ==
[2020-10-18] MEDS ORDERED: HYDROmorphone 1 MG/ML 1 ML SYRINGE IVP STA (22:18)
[2020-10-18] MEDS ORDERED: methylPREDNISolone SOD SUCCI 125 MG/2 ML VIAL IV STA (22:18)
[2020-10-18] MEDS ORDERED: ORPHENADRINE 30 MG/ML 2 ML VIAL IVP STA (22:18)
--- NOTE | 2020-10-18 22:23 | ED ---
Back Pain HPI - General Chief Complaint: Back Pain/Injury Stated Complaint: Back Pain Time Seen by Provider: 10/18/20 22:08 Source: patient, RN notes reviewed Limitations: no limitations - History of Present Illness Initial Comments: Patient is a 54-year-old male that presents to the emergency department complaining of low back pain. He notes that he is in the process of moving and was lifting boxes last week. He noted that over the weekend he was basically couch ridden and couldn't move he was taken as Percocets that he gets from his spine surgeon and muscle relaxers with no relief. He notes that he follows up with spine surgeons at [facility] and has regular else that he does attend. He notes that he needs something today to get him through the night so he can sleep as he has mailed asleep. He noted that he did recently have an MRI that showed several new herniated disks but no cauda equina. She did note that he has an extensive history of back injuries and low back injuries that he's had several spinal surgeons consult good and several procedures done. He denied any urinary bladder incontinence or retention chest pain shortness of breath heada myrtle nausea vomiting diarrhea constipation fever fatigue chills. - Related Data Home Medications Medication Instructions Recorded Confirmed Omeprazole [PriLOSEC] 20 mg PO BID 12/11/17 08/31/20 Carvedilol [Coreg] 12.5 mg PO BID 07/22/19 08/31/20 Atorvastatin [Lipitor] 20 mg PO DAILY 08/26/19 08/31/20 Insulin Glargine,Hum.rec.anlog 30 unit SQ BID 08/26/19 08/31/20 [Basaglar Kwikpen U-100] Gabapentin [Neurontin] 300 mg PO TID PRN 10/12/19 08/31/20 INSULIN LISPRO (HumaLOG) [humaLOG] 10 unit SQ TID-W/MEALS 02/16/20 08/31/20 Tamsulosin [Flomax] 0.4 mg PO DAILY 04/08/20 08/31/20 Dicyclomine HCl 20 mg PO QID PRN 05/07/20 08/31/20 oxyCODONE-APAP 7.5-325MG [Percocet 1 tab PO Q6HR PRN 05/07/20 08/31/20 7.5-325 mg] Previous Rx's Medication Instructions Recorded lisinopriL [Zestril] 10 mg PO DAILY #30 tab 02/17/20 methylPREDNISolone [Medrol Dose 4 mg PO DIRECTED #1 pack 10/18/20 Pack] Allergies Allergy/AdvReac Type Severity Reaction Status Date / Time doxycycline Allergy Swelling Verified 10/18/20 21:41 ketorolac tromethamine Allergy Rash/Hives Verified 10/18/20 21:41 [From Toradol] morphine Allergy Rash/Hives Verified 10/18/20 21:41 metoclopramide HCl AdvReac Dystonic Verified 10/18/20 21:41 [From Reglan] Reaction prochlorperazine edisylate AdvReac Dystonic Verified 10/18/20 21:41 [From Compazine] Reaction prochlorperazine maleate AdvReac Dystonic Verified 10/18/20 21:41 [From Compazine] Reaction Review of Systems ROS Statement: Those systems with pertinent positive or pertinent negative responses have been documented in the HPI. ROS Other: All systems not noted in ROS Statement are negative. Past Medical History Past Medical History: Asthma, Chest Pain / Angina, Diabetes Mellitus, GERD/Reflux, Hyperlipidemia, Hypertension, Myocardial Infarction ([place]), Mitral Valve Prolapse (MVP), Pulmonary Embolus (PE), Sleep Apnea/CPAP/BIPAP Additional Past Medical History / Comment(s): Obesity, chronic asthmatic bronchitis, previous history of pulmonary embolism, objective sleep apnea, diabetes mellitus, hypertension, hyperlipidemia, previous history of myocardial infarction with underlying coronary artery disease, renal cysts, chronic back pain secondary to herniated lumbar disc disease with symptoms of sciatica, history of right lower extremity fracture at the age of 13, history of C. diff colitis approximately 4 years ago, history of bleeding peptic ulcer, nephrolithiasis, previous history of UTI and secondary sepsis. Last Myocardial Infarction Date:: 2011 History of Any Multi-Drug Resistant Organisms: MRSA Date of last positivie culture/infection: 2015 MDRO Source:: left axilla Past Surgical History: Appendectomy, Back Surgery, Cholecystectomy, Heart Catheterization, Hernia Repair Additional Past Surgical History / Comment(s): 2007 back surgery with decompression fusion at [facility], 2011, 2016 cardiac cath, multiple ESWL/ureteral stents/ double J catheters, L inquinal hernia repair, PICC line for ABX for urosepsis-since removed., spinal stimulator and lumbar laminectomy 12/27. Colectomy February 2020 Past Anesthesia/Blood Transfusion Reactions: No Reported Reaction Past Psychological History: No Psychological Hx Reported Smoking Status: Never smoker Past Alcohol Use History: None Reported Past Drug Use History: None Reported - Past Family History Father Family Medical History: Chest Pain / Angina Additional Family Medical History / Comment(s): "lung problems" Mother Family Medical History: Cancer, Chest Pain / Angina, Congestive Heart Failure (CHF), Osteoarthritis (OA), Thyroid Disorder Additional Family Medical History / Comment(s): "female cancer" General Exam Limitations: no limitations General appearance: alert, in no apparent distress, obese Head exam: Present: atraumatic, normocephalic, normal inspection Eye exam: Present: normal appearance, PERRL, EOMI. Absent: scleral icterus, conjunctival injection, periorbital swelling Neck exam: Present: normal inspection. Absent: tenderness, meningismus, lymphadenopathy Respiratory exam: Present: normal lung sounds bilaterally. Absent: respiratory distress, wheezes, rales, rhonchi, stridor Cardiovascular Exam: Present: regular rate, normal rhythm, normal heart sounds. Absent: systolic murmur, diastolic murmur, rubs, gallop, clicks GI/Abdominal exam: Present: soft, normal bowel sounds. Absent: distended, tenderness, guarding, rebound, rigid Extremities exam: Present: normal inspection, full ROM, normal capillary refill. Absent: tenderness, pedal edema, joint swelling, calf tenderness Back exam: Present: normal inspection, tenderness (Dominantly over the right and middle lower back), other (Positive well leg raise test on the right side.) Neurological exam: Present: alert, oriented X3, CN II-XII intact Psychiatric exam: Present: normal affect, normal mood Skin exam: Present: warm, dry, intact, normal color. Absent: rash Course Vital Signs 10/18/20 21:37 Temperature 97.7 F Pulse Rate 112 H Respiratory 20 Rate Blood Pressure 152/102 O2 Sat by Pulse 96 Oximetry Medical Decision Making - Medical Decision Making 54-year-old male with low back pain. X-ray of the lumbar spine, 1 mg of Dilaudid, 60 mg of Norflex, 125 mg of Solu- Medrol ordered. Case discussed with Dr. Dwyer, patient can discharge home with follow-up to his orthopedic spinal surgeon. - Radiology Data Radiology results: report reviewed, image reviewed X-ray of the lumbar spine: There are rods and screws fusing posteriorly of the lumbar spine from L3 to S1 there is disc prosthesis at L3 to 4. Vertebrae have normal alignment. There is no compression fracture. There is a laminectomy at L4-L5. The sacroiliac joints are intact. I see no focal bone destruction. There is no neural stimulator in the lower thoracic spine. Mild narrowing of the disc spaces in the lower lumbar spine. No fracture seen no change compared to recent exam. Disposition Clinical Impression: Low back pain, Right lumbar radiculopathy Disposition: HOME SELF-CARE Condition: Stable Instructions (If sedation given, give patient instructions): Acute Low Back Pain (ED) Additional Instructions: Please return to the Emergency Department if symptoms worsen or any other concerns. Follow-up with orthopedic spinal surgeon as planned. Continue take at home pain medication as prescribed. Avoid any strenuous activity, irregular bending twisting or heavy lifting. Is patient prescribed a controlled substance at d/c from ED?: No Referrals: Trav Muniz MD [Primary Care Provider] - 1-2 days Time of Disposition: 22:57
--- NOTE | 2020-10-18 22:38 | XR ---
EXAMINATION TYPE: XR lumbar spine 2 or 3V DATE OF EXAM: 10/18/2020 COMPARISON: 08/20/2020 HISTORY: Back pain TECHNIQUE: 3 views FINDINGS: There are rods and screws fusing posteriorly the lumbar spine from L3 to S1. There is disc prosthesis at L3-4. Vertebra have normal alignment. There is no compression fracture. There is leslie ctomy at L4 and L5. The sacroiliac joints are intact. I see no focal bone destruction. There is neura l stimulator in the lower thoracic spine. IMPRESSION: Previous surgery. Mild narrowing of the disc spaces in the lower lumbar spine. No fractur e seen. No change compared to recent exam.
[2020-10-18] MEDS ORDERED: HYDROmorphone 1 MG/ML 1 ML SYRINGE IM STA (22:51)
[2020-10-18] MEDS ORDERED: methylPREDNISolone SOD SUCCI 125 MG/2 ML VIAL IM ONE (22:52)
[2020-10-18] MEDS ORDERED: ORPHENADRINE 30 MG/ML 2 ML VIAL IM STA (22:52)
[2020-10-18 23:38] VITALS: BP 156/98; PULSE 90; RESP 18; TEMP 98
== END 2020-10-18 23:36 | disposition home or self-care (01) ==
LOC: EC 20:29
DX: M54.16 Radiculopathy, lumbar region (principal); E11.9 Type 2 diabetes mellitus without complications; J44.9 Chronic obstructive pulmonary disease, unspecified; K21.9 Gastro-esophageal reflux disease without esophagitis; E78.5 Hyperlipidemia, unspecified; I10 Essential (primary) hypertension; I25.2 Old myocardial infarction; I25.10 Atherosclerotic heart disease of native coronary artery without angina pectoris; E66.9 Obesity, unspecified; Z86.711 Personal history of pulmonary embolism; Z95.5 Presence of coronary angioplasty implant and graft; Z90.49 Acquired absence of other specified parts of digestive tract; Z79.52 Long term (current) use of systemic steroids; Z79.4 Long term (current) use of insulin; Z68.41 Body mass index [BMI] 40.0-44.9, adult
CPT/HCPCS: 72100; 99283; 96372 ×3; J2360; J2930; J1170

== ENCOUNTER 2020-10-26 08:01 | Emergency (ER) | payer OTHER ==
[2020-10-26 08:05] VITALS: TEMP 97.6
[2020-10-26 08:15] LABS: Glucose,Whole Blood 316 mg/dL (75-99)
--- NOTE | 2020-10-26 08:30 | ED ---
General Adult HPI - General Chief complaint: Chest Pain Stated complaint: SOB/chest pain Time Seen by Provider: 10/26/20 08:11 Source: patient Mode of arrival: wheelchair Limitations: physical limitation - History of Present Illness Initial comments: 54-year-old male well-known to this emergency room with a complicated past medical history presents to the emergency room for a chief complaint of chest pain. Patient reports that he has had chest pain since last night or about 12 hours. Patient describes the pain as a sharp pain in the center of his chest. Patient nausea or diaphoresis. Patient does state he sentences shortness of breath with this. Patient is also complaining of his blood sugars are high. States he has been using his insulin at home however has been unable to completely control this. Patient was admitted last week for this at another facility.Patient has no other complaints at this time including shortness of breath, abdominal pain, nausea or vomiting, headache, or visual changes. - Related Data Home Medications Medication Instructions Recorded Confirmed RX: Omeprazole [PriLOSEC] 20 mg PO BID 12/11/17 10/26/20 RX: Carvedilol [Coreg] 12.5 mg PO BID 07/22/19 10/26/20 RX: Atorvastatin [Lipitor] 20 mg PO HS 08/26/19 10/26/20 RX: Insulin Glargine,Hum.rec.anlog 30 unit SQ BID 08/26/19 10/26/20 [Basaglar Kwikpen U-100] RX: Gabapentin [Neurontin] 300 mg PO TID 10/12/19 10/26/20 RX: INSULIN LISPRO (HumaLOG) 10 unit SQ AC-TID 02/16/20 10/26/20 [humaLOG] RX: Tamsulosin [Flomax] 0.8 mg PO DAILY 04/08/20 10/26/20 Albuterol Sulfate [Proair Hfa] 2 puff INHALATION RT-QID PRN 10/26/20 10/26/20 Methocarbamol [Robaxin-750] 750 mg PO TID 10/26/20 10/26/20 oxyCODONE-APAP 10-325MG [Percocet 1 tab PO QID 10/26/20 10/26/20 10-325 mg] Previous Rx's Medication Instructions Recorded RX: lisinopriL [Zestril] 10 mg PO DAILY #30 tab 08/10/20 Allergies Allergy/AdvReac Type Severity Reaction Status Date / Time doxycycline Allergy Swelling Verified 10/26/20 11:09 ketorolac tromethamine Allergy Rash/Hives Verified 10/26/20 11:09 [From Toradol] morphine Allergy Rash/Hives Verified 10/26/20 11:09 metoclopramide HCl AdvReac Dystonic Verified 10/26/20 11:09 [From Reglan] Reaction prochlorperazine edisylate AdvReac Dystonic Verified 10/26/20 11:09 [From Compazine] Reaction prochlorperazine maleate AdvReac Dystonic Verified 10/26/20 11:09 [From Compazine] Reaction Review of Systems ROS Statement: Those systems with pertinent positive or pertinent negative responses have been documented in the HPI. ROS Other: All systems not noted in ROS Statement are negative. Past Medical History Past Medical History: Asthma, Chest Pain / Angina, Diabetes Mellitus, GERD/Reflux, Hyperlipidemia, Hypertension, Myocardial Infarction ([place]), Mitral Valve Prolapse (MVP), Pulmonary Embolus (PE), Sleep Apnea/CPAP/BIPAP Additional Past Medical History / Comment(s): Obesity, chronic asthmatic bronchitis, previous history of pulmonary embolism, objective sleep apnea, diabetes mellitus, hypertension, hyperlipidemia, previous history of myocardial infarction with underlying coronary artery disease, renal cysts, chronic back pain secondary to herniated lumbar disc disease with symptoms of sciatica, history of right lower extremity fracture at the age of 13, history of C. diff colitis approximately 4 years ago, history of bleeding peptic ulcer, nephrolithiasis, previous history of UTI and secondary sepsis. Last Myocardial Infarction Date:: 2011 History of Any Multi-Drug Resistant Organisms: MRSA Date of last positivie culture/infection: 2015 MDRO Source:: left axilla Past Surgical History: Appendectomy, Back Surgery, Cholecystectomy, Heart Catheterization, Hernia Repair Additional Past Surgical History / Comment(s): 2007 back surgery with decompression fusion at [facility], 2011, 2016 cardiac cath, multiple ESWL/ureteral stents/ double J catheters, L inquinal hernia repair, PICC line for ABX for urosepsis-since removed., spinal stimulator and lumbar laminectomy 12/27. Colectomy February 2020 Past Anesthesia/Blood Transfusion Reactions: No Reported Reaction Past Psychological History: No Psychological Hx Reported Smoking Status: Never smoker Past Alcohol Use History: None Reported Past Drug Use History: None Reported - Past Family History Father Family Medical History: Chest Pain / Angina Additional Family Medical History / Comment(s): "lung problems" Mother Family Medical History: Cancer, Chest Pain / Angina, Congestive Heart Failure (CHF), Osteoarthritis (OA), Thyroid Disorder Additional Family Medical History / Comment(s): "female cancer" General Exam Limitations: physical limitation General appearance: alert, in no apparent distress Head exam: Present: atraumatic, normocephalic, normal inspection Eye exam: Present: normal appearance, PERRL, EOMI. Absent: scleral icterus, c onjunctival injection, periorbital swelling ENT exam: Present: normal exam, mucous membranes moist Neck exam: Present: normal inspection. Absent: tenderness, meningismus, lymphadenopathy Respiratory exam: Present: normal lung sounds bilaterally. Absent: respiratory distress, wheezes, rales, rhonchi, stridor Cardiovascular Exam: Present: regular rate, normal rhythm, normal heart sounds. Absent: systolic murmur, diastolic murmur, rubs, gallop, clicks GI/Abdominal exam: Present: soft, normal bowel sounds. Absent: distended, tenderness, guarding, rebound, rigid Course Vital Signs 10/26/20 10/26/20 08:03 10:10 Temperature 97.6 F Pulse Rate 121 H 113 H Respiratory 24 18 Rate Blood Pressure 156/95 130/108 O2 Sat by Pulse 99 98 Oximetry - Reevaluation(s) Reevaluation #1: 10/26/20 11:31 Patient did have a negative stress test within the past year. EKG Findings - EKG Comments: EKG Findings:: Sinus tachycardia, ventricular rate 116, OR interval 138, QTc 486 Medical Decision Making - Medical Decision Making Vitals are stable. Patient is tachycardic which is his baseline. He is often tachycardic when seen through the emergency room. CBC is unremarkable. CMP does show mild hyperglycemia of 290. EKG nonischemic. Troponin is negative. Chest x-ray shows no acute cardiopulmonary process. Repeat 3 hour troponin ordered Patient left AGAINST MEDICAL ADVICE, did not want to wait for further evaluation and repeat troponin. - Lab Data Result diagrams: 10/26/20 09:28 10/26/20 09:28 Lab Results 04/10/26/20 10/26/20 Range/Units 08:12 09:28 09:28 WBC 7.1 (3.8-10.6) k/uL RBC 5.57 (4.30-5.90) m/uL Hgb 15.6 (13.0-17.5) gm/dL Hct 45.4 (39.0-53.0) % MCV 81.5 (80.0-100.0) fL MCH 28.0 (25.0-35.0) pg MCHC 34.3 (31.0-37.0) g/dL RDW 14.2 (11.5-15.5) % Plt Count 300 (150-450) k/uL MPV 6.7 Neutrophils % 73 % Lymphocytes % 19 % Monocytes % 5 % Eosinophils % 3 % Basophils % 0 % Neutrophils # 5.1 (1.3-7.7) k/uL Lymphocytes # 1.3 (1.0-4.8) k/uL Monocytes # 0.3 (0-1.0) k/uL Eosinophils # 0.2 (0-0.7) k/uL Basophils # 0.0 (0-0.2) k/uL PT 9.5 (9.0-12.0) sec INR 0.9 (<1.2) APTT 19.4 L (22.0-30.0) sec D-Dimer 0.48 (<0.60) mg/L FEU Sodium (137-145) mmol/L Potassium (3.5-5.1) mmol/L Chloride (98-107) mmol/L Carbon Dioxide (22-30) mmol/L Anion Gap mmol/L BUN (9-20) mg/dL Creatinine (0.66-1.25) mg/dL Est GFR (CKD-EPI)AfAm (>60 ml/min/1.73 sqM) Est GFR (CKD-EPI)NonAf (>60 ml/min/1.73 sqM) Glucose (74-99) mg/dL POC Glucose (mg/dL) 316 H (75-99) mg/dL POC Glu Sand Temperer ID Arzola, Natalie Calcium (8.4-10.2) mg/dL Magnesium (1.6-2.3) mg/dL Total Bilirubin (0.2-1.3) mg/dL AST (17-59) U/L ALT (4-49) U/L Alkaline Phosphatase (38-126) U/L Troponin I (0.000-0.034) ng/mL Total Protein (6.3-8.2) g/dL Albumin (3.5-5.0) g/dL 10/26/20 10/26/20 10/26/20 Range/Units 09:28 09:28 11:57 WBC (3.8-10.6) k/uL RBC (4.30-5.90) m/uL Hgb (13.0-17.5) gm/dL Hct (39.0-53.0) % MCV (80.0-100.0) fL MCH (25.0-35.0) pg MCHC (31.0-37.0) g/dL RDW (11.5-15.5) % Plt Count (150-450) k/uL MPV Neutrophils % % Lymphocytes % % Monocytes % % Eosinophils % % Basophils % % Neutrophils # (1.3-7.7) k/uL Lymphocytes # (1.0-4.8) k/uL Monocytes # (0-1.0) k/uL Eosinophils # (0-0.7) k/uL Basophils # (0-0.2) k/uL PT (9.0-12.0) sec INR (<1.2) APTT (22.0-30.0) sec D-Dimer (<0.60) mg/L FEU Sodium 134 L (137-145) mmol/L Potassium 4.7 (3.5-5.1) mmol/L Chloride 99 (98-107) mmol/L Carbon Dioxide 22 (22-30) mmol/L Anion Gap 13 mmol/L BUN 13 (9-20) mg/dL Creatinine 0.57 L (0.66-1.25) mg/dL Est GFR (CKD-EPI)AfAm >90 (>60 ml/min/1.73 sqM) Est GFR (CKD-EPI)NonAf >90 (>60 ml/min/1.73 sqM) Glucose 290 H (74-99) mg/dL POC Glucose (mg/dL) 182 H (75-99) mg/dL POC Glu Sand Temperer ID Rossy Leal Calcium 9.8 (8.4-10.2) mg/dL Magnesium 1.9 (1.6-2.3) mg/dL Total Bilirubin 0.5 (0.2-1.3) mg/dL AST 26 (17-59) U/L ALT 35 (4-49) U/L Alkaline Phosphatase 138 H (38-126) U/L Troponin I <0.012 (0.000-0.034) ng/mL Total Protein 6.9 (6.3-8.2) g/dL Albumin 4.2 (3.5-5.0) g/dL Disposition Clinical Impression: Chest pain Disposition: Left Against Medical Advice Instructions (If sedation given, give patient instructions): Chest Pain (ED) Additional Instructions: You are leaving AGAINST MEDICAL ADVICE. Please follow up with primary care. Return to the emergency room for any worsening symptoms. Is patient prescribed a controlled substance at d/c from ED?: No Referrals: Trav Muniz MD [Primary Care Provider] - 1-2 days Time of Disposition: 12:01
--- NOTE | 2020-10-26 08:49 | XR ---
EXAMINATION TYPE: XR chest 2V DATE OF EXAM: 10/26/2020 COMPARISON: Chest x-ray 05/19/2020 HISTORY: Chest pain TECHNIQUE: Frontal and lateral views of the chest are obtained. FINDINGS: There is no focal air space opacity, pleural effusion, or pneumothorax seen. The cardiac silhouette size is within normal limits. Thoracic cord stimulator is present as on prior exam over t he midline in the lower thoracic spine. There are overlying leads. Pleural thickening again noted sayra ng the lateral chest margins is stable. The osseous structures are intact. IMPRESSION: No acute cardiopulmonary process.
[2020-10-26] MEDS ORDERED: HYDROmorphone 0.5 MG/0.5 ML SYRINGE IM STA ×2 (09:42→11:09)
[2020-10-26] MEDS ORDERED: ASPIRIN 81 MG PO STA (09:42)
[2020-10-26 09:48] LABS: Basophils % (A) 0 %; Eosinophils # (A) 0.2 k/uL (0-0.7); Eosinophils % (A) 3 %; HCT 45.4 % (39.0-53.0); HGB 15.6 gm/dL (13.0-17.5); Lymphocytes # (A) 1.3 k/uL (1.0-4.8); Lymphocytes % (A) 19 %; MCHC 34.3 g/dL (31.0-37.0); MCV 81.5 fL (80.0-100.0); Mean Platelet Volume 6.7; Monocytes # (A) 0.3 k/uL (0-1.0); Monocytes % (A) 5 %; Neutrophils # (A) 5.1 k/uL (1.3-7.7); Neutrophils % (A) 73 %; Platelet Count 300 k/uL (150-450); RBC 5.57 m/uL (4.30-5.90); RDW 14.2 % (11.5-15.5); WBC 7.1 k/uL (3.8-10.6)
[2020-10-26 10:07] LABS: INR 0.9 (<1.2); Prothrombin Time 9.5 sec (9.0-12.0)
[2020-10-26 10:11] VITALS: BP 130/108; PULSE 113; RESP 18
[2020-10-26 10:21] LABS: Partial Thromboplastin Time 19.4 sec (22.0-30.0)
[2020-10-26 10:34] LABS: ALT 35 U/L (4-49); AST 26 U/L (17-59); African American GFR (CKD) >90 (>60 ml/min/1.73 sqM); Albumin 4.2 g/dL (3.5-5.0); Alkaline Phosphatase 138 U/L (38-126); Anion Gap 13 mmol/L; Blood Urea Nitrogen 13 mg/dL (9-20); Calcium 9.8 mg/dL (8.4-10.2); Carbon Dioxide 22 mmol/L (22-30); Chloride 99 mmol/L (98-107); Glucose 290 mg/dL (74-99); Magnesium 1.9 mg/dL (1.6-2.3); Non-African American GFR(CKD) >90 (>60 ml/min/1.73 sqM); Potassium 4.7 mmol/L (3.5-5.1); Sodium 134 mmol/L (137-145); Total Bilirubin 0.5 mg/dL (0.2-1.3); Total Protein 6.9 g/dL (6.3-8.2)
[2020-10-26] MEDS ORDERED: INSULIN ASPART (NovoLOG) 100 UNIT/ML VIAL SQ STA (11:03)
[2020-10-26 11:58] LABS: Glucose,Whole Blood 182 mg/dL (75-99)
== END 2020-10-26 12:04 | disposition left against medical advice (07) ==
LOC: EC 08:01
DX: R07.9 Chest pain, unspecified (principal); R06.02 Shortness of breath; E11.65 Type 2 diabetes mellitus with hyperglycemia; K21.9 Gastro-esophageal reflux disease without esophagitis; E78.5 Hyperlipidemia, unspecified; I10 Essential (primary) hypertension; I25.2 Old myocardial infarction; E66.9 Obesity, unspecified; G47.33 Obstructive sleep apnea (adult) (pediatric); I25.10 Atherosclerotic heart disease of native coronary artery without angina pectoris; Z86.718 Personal history of other venous thrombosis and embolism; Z79.51 Long term (current) use of inhaled steroids; Z79.4 Long term (current) use of insulin; Z79.899 Other long term (current) drug therapy; Z68.41 Body mass index [BMI] 40.0-44.9, adult
CPT/HCPCS: 36415; 93005; 85379; 80053; 83735; 84484; 85025; 85610; 85730; 71046; 99285; 96372 ×2; J1170

== ENCOUNTER 2020-10-26 18:58 | Observation (INO) | payer OTHER ==
--- NOTE | 2020-10-26 20:06 | ED ---
Chest Pain HPI - General Chief Complaint: Chest Pain Stated Complaint: chest pain Time Seen by Provider: 10/26/20 20:05 Source: patient Mode of arrival: wheelchair Limitations: no limitations - History of Present Illness Initial Comments: 54-year-old male with complex medical history presents to the emergency department with a chief complaint of chest pain. Patient reports chest pain started last night and is located in the mid sternum. States it pain is sharp and occasionally radiates to his jaw. He denies any associated shortness of breath. States he is also concern for his inability to control his blood glucose levels. Patient states he was evaluated this morning in emergency department and had a negative troponin initially. They were going to perform repeat troponins but patient decided to leave AGAINST MEDICAL ADVICE. Patient states after he returned home, he began to develop the pain again around 1600. Patient is also requesting some medical control with Dilaudid. He takes Percocet for chronic pain. He reports feeling slightly lightheaded but not dizzy. Does report feeling clammy as well. - Related Data Home Medications Medication Instructions Recorded Confirmed Omeprazole [PriLOSEC] 20 mg PO BID 12/11/17 10/26/20 Carvedilol [Coreg] 12.5 mg PO BID 07/22/19 10/26/20 Atorvastatin [Lipitor] 20 mg PO HS 08/26/19 10/26/20 Insulin Glargine,Hum.rec.anlog 30 unit SQ BID 08/26/19 10/26/20 [Basaglar Kwikpen U-100] Gabapentin [Neurontin] 300 mg PO TID 10/12/19 10/26/20 INSULIN LISPRO (HumaLOG) [humaLOG] 10 unit SQ AC-TID 02/16/20 10/26/20 Tamsulosin [Flomax] 0.8 mg PO DAILY 04/08/20 10/26/20 Albuterol Sulfate [Proair Hfa] 2 puff INHALATION RT-QID PRN 10/26/20 10/26/20 Methocarbamol [Robaxin-750] 750 mg PO TID 10/26/20 10/26/20 oxyCODONE-APAP 10-325MG [Percocet 1 tab PO QID 10/26/20 10/26/20 10-325 mg] Previous Rx's Medication Instructions Recorded lisinopriL [Zestril] 10 mg PO DAILY #30 tab 02/17/20 Allergies Allergy/AdvReac Type Severity Reaction Status Date / Time doxycycline Allergy Swelling Verified 10/26/20 21:38 ketorolac tromethamine Allergy Rash/Hives Verified 10/26/20 21:38 [From Toradol] morphine Allergy Rash/Hives Verified 10/26/20 21:38 metoclopramide HCl AdvReac Dystonic Verified 10/26/20 21:38 [From Reglan] Reaction prochlorperazine edisylate AdvReac Dystonic Verified 10/26/20 21:38 [From Compazine] Reaction prochlorperazine maleate AdvReac Dystonic Verified 10/26/20 21:38 [From Compazine] Reaction tramadol AdvReac Nausea & Verified 10/26/20 21:38 Vomiting Review of Systems ROS Statement: Those systems with pertinent positive or pertinent negative responses have been documented in the HPI. ROS Other: All systems not noted in ROS Statement are negative. Past Medical History Past Medical History: Asthma, Chest Pain / Angina, Diabetes Mellitus, GERD/Reflux, Hyperlipidemia, Hypertension, Myocardial Infarction ([place]), Mitral Valve Prolapse (MVP), Pulmonary Embolus (PE), Sleep Apnea/CPAP/BIPAP Additional Past Medical History / Comment(s): Obesity, chronic asthmatic bronchitis, previous history of pulmonary embolism, objective sleep apnea, diabetes mellitus, hypertension, hyperlipidemia, previous history of myocardial infarction with underlying coronary artery disease, renal cysts, chronic back pain secondary to herniated lumbar disc disease with symptoms of sciatica, history of right lower extremity fracture at the age of 13, history of C. diff colitis approximately 4 years ago, history of bleeding peptic ulcer, nephrolithiasis, previous history of UTI and secondary sepsis. Last Myocardial Infarction Date:: 2011 History of Any Multi-Drug Resistant Organisms: MRSA Date of last positivie culture/infection: 2015 MDRO Source:: left axilla Past Surgical History: Appendectomy, Back Surgery, Cholecystectomy, Heart Catheterization, Hernia Repair Additional Past Surgical History / Comment(s): 2007 back surgery with de compression fusion at [facility], 2011, 2016 cardiac cath, multiple ESWL/ureteral stents/ double J catheters, L inquinal hernia repair, PICC line for ABX for urosepsis-since removed., spinal stimulator and lumbar laminectomy 6/20. Colectomy February 2020 Past Anesthesia/Blood Transfusion Reactions: No Reported Reaction Past Psychological History: No Psychological Hx Reported Smoking Status: Never smoker Past Alcohol Use History: None Reported Past Drug Use History: None Reported - Past Family History Father Family Medical History: Chest Pain / Angina Additional Family Medical History / Comment(s): "lung problems" Mother Family Medical History: Cancer, Chest Pain / Angina, Congestive Heart Failure (CHF), Osteoarthritis (OA), Thyroid Disorder Additional Family Medical History / Comment(s): "female cancer" General Exam Limitations: no limitations General appearance: alert, in no apparent distress, anxious Head exam: Present: atraumatic, normocephalic, normal inspection Eye exam: Present: normal appearance, PERRL, EOMI Pupils: Present: normal accommodation ENT exam: Present: normal exam, normal oropharynx, mucous membranes moist, TM's normal bilaterally, normal external ear exam Neck exam: Present: normal inspection, full ROM. Absent: tenderness Respiratory exam: Present: normal lung sounds bilaterally. Absent: respiratory distress, wheezes, rales, rhonchi, stridor, chest wall tenderness, accessory muscle use Cardiovascular Exam: Present: regular rate, normal rhythm, normal heart sounds. Absent: systolic murmur, diastolic murmur Extremities exam: Present: normal inspection, full ROM, normal capillary refill. Absent: tenderness, pedal edema, joint swelling Back exam: Present: normal inspection, full ROM. Absent: tenderness, CVA tenderness (R), CVA tenderness (L) Neurological exam: Present: alert, oriented X3, CN II-XII intact, normal gait Psychiatric exam: Present: normal affect, normal mood, anxious Skin exam: Present: warm, dry, intact, normal color Course Vital Signs 10/26/20 10/26/20 19:53 21:53 Temperature 97 F L Pulse Rate 122 H 120 H Respiratory 20 16 Rate Blood Pressure 128/89 155/106 O2 Sat by Pulse 98 Oximetry Chest Pain MDM - MDM 54-year-old male with complex medical history presents emergency Department with chief complaint of chest pain. On physical examination, patient does appear to be slightly anxious. He is tachycardic at baseline. I reviewed his medical records and he was evaluated this morning for the same chief complaint. His cardiac workup was unremarkable. Negative troponins. He left AMA before a second troponin was redrawn. They also obtain a d-dimer which was negative during the same visit. Repeat cardiac evaluation was obtained shows no acute findings. He continues to be tachycardic ranging between low 110 to 120. I did evaluate his previous visit is the patient appears to be tachycardic at baseline. I did apply Nitropaste on him with no significant improvement in his symptoms. Patient was requesting Dilaudid which typically helps with this pain. Does take Percocet for chronic pain. I spoke with Maximus Johnson NP who will admit for Dr Deal. Case discussed with Disposition Clinical Impression: Chest pain Disposition: ADMITTED IP TO THIS HOSP Condition: Fair Instructions (If sedation given, give patient instructions): Chest Pain (ED) Is patient prescribed a controlled substance at d/c from ED?: No Referrals: Trav Muniz MD [Primary Care Provider] - 1-2 days Time of Disposition: 23:03
[2020-10-26] MEDS ORDERED: NITROGLYCERIN OINT 1 INCH/GM PACKET TOPICAL STA (20:15)
[2020-10-26 21:02] LABS: Basophils % (A) 0 %; Eosinophils # (A) 0.3 k/uL (0-0.7); Eosinophils % (A) 3 %; HCT 42.3 % (39.0-53.0); HGB 14.9 gm/dL (13.0-17.5); Lymphocytes # (A) 2.2 k/uL (1.0-4.8); Lymphocytes % (A) 22 %; MCH 28.6 pg (25.0-35.0); MCHC 35.1 g/dL (31.0-37.0); MCV 81.4 fL (80.0-100.0); Mean Platelet Volume 6.7; Monocytes # (A) 0.6 k/uL (0-1.0); Monocytes % (A) 6 %; Neutrophils # (A) 6.8 k/uL (1.3-7.7); Neutrophils % (A) 68 %; Platelet Count 308 k/uL (150-450); RBC 5.19 m/uL (4.30-5.90); RDW 14.5 % (11.5-15.5); WBC 9.9 k/uL (3.8-10.6)
[2020-10-26 21:11] LABS: ALT 33 U/L (4-49); AST 25 U/L (17-59); African American GFR (CKD) >90 (>60 ml/min/1.73 sqM); Albumin 4.2 g/dL (3.5-5.0); Alkaline Phosphatase 136 U/L (38-126); Anion Gap 13 mmol/L; Blood Urea Nitrogen 16 mg/dL (9-20); Calcium 10.4 mg/dL (8.4-10.2); Carbon Dioxide 24 mmol/L (22-30); Chloride 97 mmol/L (98-107); Glucose 261 mg/dL (74-99); Non-African American GFR(CKD) >90 (>60 ml/min/1.73 sqM); Potassium 4.2 mmol/L (3.5-5.1); Sodium 134 mmol/L (137-145); Total Bilirubin 0.3 mg/dL (0.2-1.3); Total Protein 6.8 g/dL (6.3-8.2)
[2020-10-26] MEDS ORDERED: traMADol 50 MG TAB PO STA (21:26)
[2020-10-26 21:32] LABS: INR 0.9 (<1.2); Prothrombin Time 9.6 sec (9.0-12.0)
[2020-10-26] MEDS ORDERED: HYDROmorphone 1 MG/ML 1 ML SYRINGE IVP STA (21:46)
--- NOTE | 2020-10-26 22:18 | XR ---
EXAMINATION TYPE: XR chest 2V DATE OF EXAM: 10/26/2020 CLINICAL HISTORY: Chest Pain that radiates to left shoulder. TECHNIQUE: Frontal and lateral view of the chest. COMPARISON: 10/26/2020 at 8:47 AM, chest radiograph FINDINGS: Redemonstrated thoracic spine stimulator device. It silhouette likely accentuated by sligh tly decreased lung volumes versus prior comparison. Pulmonary vasculature is normal. There is no foca l air space opacity, pleural effusion, or pneumothorax seen. Degenerative changes of the spine. IMPRESSION: Slightly more prominent cardiac silhouette versus comparison at 8:47 AM. Findings may be due to lung volumes versus represent borderline cardiomegaly.
[2020-10-26] MEDS ORDERED: NITROGLYCERIN SL TABS 0.4 MG TAB SUBLINGUAL PRN (22:41)
[2020-10-26] MEDS ORDERED: INSULIN ASPART (NovoLOG) 100 UNIT/ML VIAL SQ ONE (23:21)
[2020-10-27] MEDS: HYDROmorphone 1 MG/ML 1 ML SYRINGE IVP PRN ×6 (02:08→23:45)
[2020-10-27 05:15] LABS: Cholesterol 183 mg/dL (<200); HDL Cholesterol 40 mg/dL (40-60); Triglycerides 420 mg/dL (<150)
[2020-10-27 07:56] LABS: Glucose,Whole Blood 276 mg/dL (75-99)
[2020-10-27] MEDS: ASPIRIN 325 MG TAB PO SCH (08:06)
[2020-10-27] MEDS: INSULIN ASPART (NovoLOG) 100 UNIT/ML VIAL SQ SCH ×5 (08:06→17:53)
[2020-10-27] MEDS ORDERED: ALBUTEROL NEBULIZED 2.5 MG/3 ML INHALATION PRN (10:15)
[2020-10-27] MEDS ORDERED: LIDOCAINE 1% INJ 10MG/ML (20 ML MDV) ONE (10:30)
[2020-10-27] MEDS ORDERED: carvediloL 12.5 MG TAB PO SCH (10:30)
--- NOTE | 2020-10-27 10:46 | P.CRDCN ---
History of Present Illness Consult date: 10/27/20 Chief complaint: Chest pain History of present illness: This is a very pleasant 54-year-old gentleman who sees Dr. Arora in the office on regular basis with a past medical history significant for diabetes and hypertension and dyslipidemia and recurrent hospital admission with a chest discomfort presented back to the hospital complaining of chest discomfort again. He was in his usual state of health until yesterday when he woke up from sleep complaining of chest discomfort in the middle of the chest as a squeezing sensation and he states also sometimes sharp discomfort with radiation to the jaw as well as radiation to the left arm. No associated symptoms of sweating or dizziness or lightheadedness or any feeling of heart racing or fluttering or syncope. Because of that he decided to come to the emergency department. This is his third admission within the last several months. In the past he underwent stress test multiple times and everything came in to be unremarkable. This time the EKG showed sinus rhythm without any significant or ischemic ST or T-wave abnormalities. The troponin came in to be unremarkable. Currently he stated that his chest pain free. Giving the multiple and recurrent hospital admission with a chest discomfort and he is multiple risk factors I think he will benefit from coronary angiogram for definitive diagnosis. The procedure in details was explained to the patient including the risks and benefits as well as alternative and the patient is in full understanding. Past Medical History Past Medical History: Asthma, Chest Pain / Angina, Diabetes Mellitus, GERD/Reflux, Hyperlipidemia, Hypertension, Myocardial Infarction ([place]), Mitral Valve Prolapse (MVP), Pulmonary Embolus (PE), Sleep Apnea/CPAP/BIPAP Additional Past Medical History / Comment(s): Obesity, chronic asthmatic bronchitis, previous history of pulmonary embolism, objective sleep apnea, diabetes mellitus, hypertension, hyperlipidemia, previous history of myocardial infarction with underlying coronary artery disease, renal cysts, chronic back pain secondary to herniated lumbar disc disease with symptoms of sciatica, history of right lower extremity fracture at the age of 13, history of C. diff colitis approximately 4 years ago, history of bleeding peptic ulcer, nephrolithiasis, previous history of UTI and secondary sepsis. Last Myocardial Infarction Date:: 2011 History of Any Multi-Drug Resistant Organisms: MRSA Date of last positivie culture/infection: 2015 MDRO Source:: left axilla Past Surgical History: Appendectomy, Back Surgery, Cholecystectomy, Heart Catheterization, Hernia Repair Additional Past Surgical History / Comment(s): 2007 back surgery with decompression fusion at [facility], 2011, 2016 cardiac cath, multiple ESWL/ureteral stents/ double J catheters, L inquinal hernia repair, PICC line for ABX for urosepsis-since removed., spinal stimulator and lumbar laminectomy 12/27. Colectomy February 2020 Past Anesthesia/Blood Transfusion Reactions: No Reported Reaction Past Psychological History: No Psychological Hx Reported Smoking Status: Never smoker Past Alcohol Use History: None Reported Past Drug Use History: None Reported - Past Family History Father Family Medical History: Chest Pain / Angina Additional Family Medical History / Comment(s): "lung problems" Mother Family Medical History: Cancer, Chest Pain / Angina, Congestive Heart Failure (CHF), Osteoarthritis (OA), Thyroid Disorder Additional Family Medical History / Comment(s): "female cancer" Medications and Allergies Home Medications Medication Instructions Recorded Confirmed Type Omeprazole [PriLOSEC] 20 mg PO BID 12/11/17 10/26/20 History Carvedilol [Coreg] 12.5 mg PO BID 07/22/19 10/26/20 History Atorvastatin [Lipitor] 20 mg PO HS 08/26/19 10/26/20 History Insulin Glargine,Hum.rec.anlog 30 unit SQ BID 08/26/19 10/26/20 History [Basaglar Kwikpen U-100] Gabapentin [Neurontin] 300 mg PO TID 10/12/19 10/26/20 History INSULIN LISPRO (HumaLOG) [humaLOG] 10 unit SQ AC-TID 02/16/20 10/26/20 History lisinopriL [Zestril] 10 mg PO DAILY #30 tab 02/17/20 10/26/20 Rx Tamsulosin [Flomax] 0.8 mg PO DAILY 04/08/20 10/26/20 History Albuterol Sulfate [Proair Hfa] 2 puff INHALATION RT-QID PRN 10/26/20 10/26/20 History Methocarbamol [Robaxin-750] 750 mg PO TID 10/26/20 10/26/20 History oxyCODONE-APAP 10-325MG [Percocet 1 tab PO QID 10/26/20 10/26/20 History 10-325 mg] Allergies Allergy/AdvReac Type Severity Reaction Status Date / Time doxycycline Allergy Swelling Verified 10/26/20 21:38 ketorolac tromethamine Allergy Rash/Hives Verified 10/26/20 21:38 [From Toradol] morphine Allergy Rash/Hives Verified 10/26/20 21:38 metoclopramide HCl AdvReac Dystonic Verified 10/26/20 21:38 [From Reglan] Reaction prochlorperazine edisylate AdvReac Dystonic Verified 10/26/20 21:38 [From Compazine] Reaction prochlorperazine maleate AdvReac Dystonic Verified 10/26/20 21:38 [From Compazine] Reaction tramadol AdvReac Nausea & Verified 10/26/20 21:38 Vomiting Physical Exam Vitals: Vital Signs Temp Pulse Pulse Resp BP Pulse Ox 10/27/20 10:32 98.6 F 112 H 18 140/97 96 10/27/20 08:36 108 H 10/27/20 08:10 110 H 22 137/95 99 10/27/20 06:41 97.9 F 102 H 16 138/96 98 10/27/20 05:03 103 H 16 113/77 98 10/27/20 01:27 112 H 24 127/98 10/26/20 22:30 110 H 22 121/92 96 10/26/20 21:53 120 H 16 155/106 10/26/20 19:53 97 F L 122 H 20 128/89 98 Intake and Output 10/26/20 10/27/20 10/27/20 22:59 06:59 14:59 Other: Voiding Method Toilet Weight 131.542 kg - Constitutional General appearance: no acute distress - Respiratory Respiratory: bilateral: CTA - Cardiovascular Rhythm: regular Heart sounds: normal: S1, S2 Results 10/26/20 20:50 10/26/20 20:50 Cardiac Enzymes 10/26/20 10/26/20 10/26/20 Range/Units 20:50 20:50 23:17 AST 25 (17-59) U/L Troponin I <0.012 <0.012 (0.000-0.034) ng/mL 10/27/20 Range/Units 03:58 AST (17-59) U/L Troponin I <0.012 (0.000-0.034) ng/mL Coagulation 10/26/20 Range/Units 20:50 PT 9.6 (9.0-12.0) sec APTT 19.0 L (22.0-30.0) sec Lipids 10/27/20 Range/Units 03:58 Triglycerides 420 H (<150) mg/dL Cholesterol 183 (<200) mg/dL HDL Cholesterol 40 (40-60) mg/dL CBC 10/26/20 Range/Units 20:50 WBC 9.9 (3.8-10.6) k/uL RBC 5.19 (4.30-5.90) m/uL Hgb 14.9 (13.0-17.5) gm/dL Hct 42.3 (39.0-53.0) % Plt Count 308 (150-450) k/uL Comprehensive Metabolic Panel 10/26/20 Range/Units 20:50 Sodium 134 L (137-145) mmol/L Potassium 4.2 (3.5-5.1) mmol/L Chloride 97 L (98-107) mmol/L Carbon Dioxide 24 (22-30) mmol/L BUN 16 (9-20) mg/dL Creatinine 0.59 L (0.66-1.25) mg/dL Glucose 261 H (74-99) mg/dL Calcium 10.4 H (8.4-10.2) mg/dL AST 25 (17-59) U/L ALT 33 (4-49) U/L Alkaline Phosphatase 136 H (38-126) U/L Total Protein 6.8 (6.3-8.2) g/dL Albumin 4.2 (3.5-5.0) g/dL Current Medications Generic Name Dose Route Start Last Admin Trade Name Freq PRN Reason Stop Dose Admin Albuterol Sulfate 2.5 mg 10/27/20 10:15 Albuterol Nebulized 2.5 Mg/3 Ml INHALATION RT-QID PRN Shortness Of Breath Aspirin 325 mg 10/27/20 09:00 10/27/20 08:06 Aspirin 325 Mg Tab PO 325 mg DAILY JOEY Administration Atorvastatin Calcium 20 mg 10/27/20 21:00 Atorvastatin 20 Mg Tab PO HS JOEY Carvedilol 12.5 mg 10/27/20 10:30 10/27/20 10:23 Carvedilol 12.5 Mg Tab PO 12.5 mg BID-W/MEALS JOEY Administration Gabapentin 300 mg 10/27/20 16:00 Gabapentin 300 Mg Cap PO TID JOEY Hydromorphone HCl 1 mg 10/27/20 01:59 10/27/20 10:22 Hydromorphone 1 Mg/Ml 1 Ml Syringe IVP 1 mg Q4HR PRN Administration Pain Insulin Aspart 0 unit 10/27/20 07:30 10/27/20 08:06 Insulin Aspart (Novolog) 100 Unit/Ml Vial SQ 7 unit AC-TID [facility] Administration Protocol Insulin Aspart 10 unit 10/27/20 12:30 Insulin Aspart (Novolog) 100 Unit/Ml Vial SQ AC-TID JOEY Insulin Detemir 30 unit 10/27/20 21:00 Insulin Detemir (Levemir) 100 Unit/Ml Syr SQ BID@0700,2100 [facility] Lisinopril 10 mg 10/28/20 09:00 Lisinopril 10 Mg Tab PO DAILY JOEY Nitroglycerin 0.4 mg 10/26/20 22:41 Nitroglycerin Sl Tabs 0.4 Mg Tab SUBLINGUAL Q5M PRN Chest Pain Oxycodone/Acetaminophen 1 each 10/27/20 10:15 Oxycodone-Apap 10-325mg 1 Each Tab PO QID PRN Pain Pantoprazole Sodium 40 mg 10/27/20 10:30 Pantoprazole 40 Mg Tablet PO AC-BRKFST [facility] Tamsulosin HCl 0.8 mg 10/28/20 09:00 Tamsulosin 0.4 Mg Cap.Er.24h PO DAILY [facility] Intake and Output 10/26/20 10/27/20 10/27/20 22:59 06:59 14:59 Other: Voiding Method Toilet Weight 131.542 kg 10/26/20 20:50 10/26/20 20:50 Assessment and Plan Assessment: Assessment #1 recurrent chest discomfort #2 multiple risk factors for CAD Plan #1 proceed with coronary angiogram #2 follow-up with the patient
[2020-10-27] MEDS ORDERED: IV FLUID CONTINUATION 925 ML IV ONE (11:00)
[2020-10-27] MEDS: MIDAZOLAM 2 MG/2 ML VIAL IVP ONE ×2 (11:05→11:14)
[2020-10-27] MEDS ORDERED: fentaNYL (PF) 50 MCG/ML 2 ML AMP ONE (11:11)
[2020-10-27] MEDS ORDERED: fentaNYL (PF) 50 MCG/ML 2 ML AMP IVP ONE (11:12)
[2020-10-27] MEDS ORDERED: LIDOCAINE 1% INJ 10MG/ML (20 ML MDV) SQ ONE (11:15)
[2020-10-27] MEDS ORDERED: METOPROLOL TARTRATE 5 MG/5 ML VIAL IVP ONE ×2 (11:22→11:25)
[2020-10-27] MEDS ORDERED: IOPAMIDOL-370 125ML BTL INJ ONE (11:32)
[2020-10-27] MEDS ORDERED: RX INFO: IV CONTRAST WAS GIVEN 1 EACH MISC MISCELLANE PRN (11:36)
[2020-10-27 11:42] LABS: African American GFR (CKD) >90 (>60 ml/min/1.73 sqM); Anion Gap 10 mmol/L; Blood Urea Nitrogen 17 mg/dL (9-20); Calcium 9.5 mg/dL (8.4-10.2); Carbon Dioxide 22 mmol/L (22-30); Chloride 100 mmol/L (98-107); Glucose 237 mg/dL (74-99); Non-African American GFR(CKD) >90 (>60 ml/min/1.73 sqM); Potassium 4.4 mmol/L (3.5-5.1); Sodium 132 mmol/L (137-145)
[2020-10-27] MEDS: SODIUM CHLORIDE 0.9% 1,000 ML IV SCH (11:50)
--- NOTE | 2020-10-27 12:10 | CC ---
CARDIAC CATHETERIZATION REPORT INDICATION: Unstable angina. This is a 54-year-old gentleman who presented to hospital with recurrent episodes of chest discomfort. Dr. Ochoaaf my associate who evaluated him in the emergency room and advised him to undergo cardiac catheterization and I was asked to perform the cardiac catheterization. The patient was explained of risks, benefits and alternatives. PROCEDURE NOTE: After obtaining informed consent, left heart catheterization, coronary angiogram are performed via the right femoral artery using standard Dotty catheters. Patient tolerated the procedure well without any obvious immediate complications. A femoral angiogram was performed and Angio-Seal will be deployed for hemostasis. Patient received moderate conscious sedation. Total sedation time was 12 minutes. FINDINGS: 1. HEMODYNAMICS: Left ventricular end-diastolic pressure is 12 mm. There is no significant gradient across the aortic valve. 2. LEFT VENTRICULOGRAM: Left ventriculogram was not performed. 3. ANGIOGRAPHIC DATA: Left Main Coronary Artery: Left main coronary artery is a normal-sized vessel and is free of stenosis. Divides into left anterior descending coronary artery and circumflex coronary artery. LAD and its branches, circumflex coronary artery and its branches are free of significant stenosis. Right coronary artery is a large dominant vessel and is free of significant disease. CONCLUSIONS: 1. Normal coronary arteries. 2. Patient had sinus tachycardia throughout the study and I gave him intravenous metoprolol. Going back through his records, the patient has had tachycardia at his previous admissions also. I am going to stop the Coreg and put him on Toprol-XL 50 mg daily and give him a dose blood pressure tolerating and if the heart rate continues to be elevated, increase the dose up to 100 mg daily. MMODL / IJN: [id number] /
[2020-10-27 12:14] LABS: Glucose,Whole Blood 199 mg/dL (75-99)
[2020-10-27] MEDS: PANTOPRAZOLE 40 MG TABLET PO SCH (16:52)
[2020-10-27] MEDS: METOPROLOL SUCCINATE (ER) 50 MG TAB.ER.24H PO SCH (16:52)
[2020-10-27] MEDS: GABAPENTIN 300 MG CAP PO SCH ×2 (16:58→19:50)
[2020-10-27] MEDS: oxyCODONE-APAP 10-325MG 1 EACH TAB PO PRN (16:58)
[2020-10-27 17:27] LABS: Glucose,Whole Blood 182 mg/dL (75-99)
[2020-10-27] MEDS: ATORVASTATIN 20 MG TAB PO SCH (19:50)
[2020-10-27 20:40] LABS: Glucose,Whole Blood 141 mg/dL (75-99)
[2020-10-27] MEDS: INSULIN DETEMIR (LEVEMIR) 100 UNIT/ML SYR SQ SCH (21:26)
--- NOTE | 2020-10-28 00:11 | P.HPIM ---
History of Present Illness H&P Date: 10/27/20 Chief Complaint: Chest pain History of ureter stent placement patient is a 54-year-old male with known history of hypertension, hyperlipidemia, GERD, asthma, diabetes type 2 insulin- dependent history of [place], mitral valve prolapse, history of PE, obstructive sleep apnea and morbid obesity with BMI 40.4, chronic back pain due to herniated lumbar disc disease, sciatica and history of cardiac catheterization with no PCI and spinal stimulator and lumbar laminectomy 12/27, history of ureteral stent placement and no prior history of smoking presents to ER with complaints of [address] pain. Patient states that he woke up yesterday with chest pain. Patient also noticed that his blood sugar is high and took his insulin dose. By 3 PM patient had chest pain again and is getting worse. Patient could not walk and also had difficulty in breathing. Patient was catching of breath. Came to ER for evaluation. Patient was evaluated yesterday morning in the ER and had a negative troponin initially. ACS is being ruled out. Patient left AMA and returned to the ER at 4 PM after having chest pain started at 3 PM. Patient states that he takes Percocet at home for chronic pain. Patient states that he was admitted to the hospital 1 week ago at [facility] due to DKA. Patient also had MRI done showed disc herniation as per the patient. Laboratory data showed WBC 9.9, hemoglobin 14.9 and platelets 308 Sodium 134 potassium 4.2 chloride 97 BUN 16 and creatinine 0.59 blood sugar is 261 and calcium 10.4 and troponin x3 - Review of Systems Constitutional: Patient denies any fever or chills . No generalized weakness or weight loss. Abdomen: Patient denied nausea vomiting and diarrhea and abdominal pain. Cardiovascular: Patient is complaining of chest pain associated shortness of breath and exertional dyspnea and no leg swelling. No palpitations. Respiratory: patient denied any cough or sputum production. No shortness of breath Neurologic: Patient denied any numbness or tingling headache. Musculoskeletal: Patient denies any complaints of joint swelling or deformity. Skin: Negative Psychiatric: Negative Endocrine: No heat or cold intolerance. No recent weight gain. Genitourinary: No dysuria or hematuria. All other 14 point ROS negative except the above Past Medical History Past Medical History: Asthma, Chest Pain / Angina, Diabetes Mellitus, GERD/Reflux, Hyperlipidemia, Hypertension, Myocardial Infarction (MO), Mitral Valve Prolapse (MVP), Pulmonary Embolus (PE), Sleep Apnea/CPAP/BIPAP Additional Past Medical History / Comment(s): Obesity, chronic asthmatic br onchitis, previous history of pulmonary embolism, objective sleep apnea, diabetes mellitus, hypertension, hyperlipidemia, previous history of myocardial infarction with underlying coronary artery disease, renal cysts, chronic back pain secondary to herniated lumbar disc disease with symptoms of sciatica, history of right lower extremity fracture at the age of 13, history of C. diff colitis approximately 4 years ago, history of bleeding peptic ulcer, nephrolithiasis, previous history of UTI and secondary sepsis. Last Myocardial Infarction Date:: 2011 History of Any Multi-Drug Resistant Organisms: MRSA Date of last positivie culture/infection: 2015 MDRO Source:: left axilla Past Surgical History: Appendectomy, Back Surgery, Cholecystectomy, Heart Catheterization, Hernia Repair Additional Past Surgical History / Comment(s): 2007 back surgery with decompression fusion at [facility], 2011, 2016 cardiac cath, multiple ESWL/ureteral stents/ double J catheters, L inquinal hernia repair, PICC line for ABX for urosepsis-since removed., spinal stimulator and lumbar laminectomy 12/27. Colectomy February 2020 Past Anesthesia/Blood Transfusion Reactions: No Reported Reaction Past Psychological History: No Psychological Hx Reported Smoking Status: Never smoker Past Alcohol Use History: None Reported Past Drug Use History: None Reported - Past Family History Father Family Medical History: Chest Pain / Angina Additional Family Medical History / Comment(s): "lung problems" Mother Family Medical History: Cancer, Chest Pain / Angina, Congestive Heart Failure (CHF), Osteoarthritis (OA), Thyroid Disorder Additional Family Medical History / Comment(s): "female cancer" Medications and Allergies Home Medications Medication Instructions Recorded Confirmed Type Omeprazole [PriLOSEC] 20 mg PO BID 12/11/17 10/26/20 History Carvedilol [Coreg] 12.5 mg PO BID 07/22/19 10/26/20 History Atorvastatin [Lipitor] 20 mg PO HS 08/26/19 10/26/20 History Insulin Glargine,Hum.rec.anlog 30 unit SQ BID 08/26/19 10/26/20 History [Basaglar Kwikpen U-100] Gabapentin [Neurontin] 300 mg PO TID 10/12/19 10/26/20 History INSULIN LISPRO (HumaLOG) [humaLOG] 10 unit SQ AC-TID 02/16/20 10/26/20 History lisinopriL [Zestril] 10 mg PO DAILY #30 tab 02/17/20 10/26/20 Rx Tamsulosin [Flomax] 0.8 mg PO DAILY 04/08/20 10/26/20 History Albuterol Sulfate [Proair Hfa] 2 puff INHALATION RT-QID PRN 10/26/20 10/26/20 History Methocarbamol [Robaxin-750] 750 mg PO TID 10/26/20 10/26/20 History oxyCODONE-APAP 10-325MG [Percocet 1 tab PO QID 10/26/20 10/26/20 History 10-325 mg] Allergies Allergy/AdvReac Type Severity Reaction Status Date / Time doxycycline Allergy Swelling Verified 10/26/20 21:38 ketorolac tromethamine Allergy Rash/Hives Verified 10/26/20 21:38 [From Toradol] morphine Allergy Rash/Hives Verified 10/26/20 21:38 metoclopramide HCl AdvReac Dystonic Verified 10/26/20 21:38 [From Reglan] Reaction prochlorperazine edisylate AdvReac Dystonic Verified 10/26/20 21:38 [From Compazine] Reaction prochlorperazine maleate AdvReac Dystonic Verified 10/26/20 21:38 [From Compazine] Reaction tramadol AdvReac Nausea & Verified 10/26/20 21:38 Vomiting Physical Exam Vitals: Vital Signs Temp Pulse Pulse Resp BP Pulse Ox 10/27/20 08:36 108 H 10/27/20 08:10 110 H 22 137/95 99 10/27/20 06:41 97.9 F 102 H 16 138/96 98 10/27/20 05:03 103 H 16 113/77 98 10/27/20 01:27 112 H 24 127/98 10/26/20 22:30 110 H 22 121/92 96 10/26/20 21:53 120 H 16 155/106 10/26/20 19:53 97 F L 122 H 20 128/89 98 Intake and Output 10/26/20 10/27/20 10/27/20 22:59 06:59 14:59 Other: Voiding Method Toilet Weight 131.542 kg PHYSICAL EXAMINATION: Patient is lying in the bed comfortably, no acute distress, awake alert and oriented.. HEENT: Normocephalic. Neck is supple. Pupils reactive. Nostrils clear. Oral cavity is moist. Ears reveal no drainage. Neck reveals no JVD, carotid bruits, or thyromegaly. CHEST EXAMINATION: Trachea is central. Symmetrical expansion. Lung turnre clear to auscultation and percussion. CARDIAC: Normal S1, S2 with no gallops. No murmurs ABDOMEN: Soft. Bowel sounds normal. No organomegaly. No abdominal bruits. Extremities: reveal no edema. No clubbing or cyanosis Neurologically awake, alert, oriented x3 with well-coordinated movements. No focal deficits noted Skin: No rash or skin lesions. Psychiatric: Coperative. Nonsuicidal Musculoskeletal: No joint swelling or deformity. Normal range of motion. Results CBC & Chem 7: 10/26/20 20:50 10/27/20 10:24 Labs: Abnormal Lab Results - Last 24 Hours (Table) 10/26/20 10/26/20 10/27/20 Range/Units 20:50 20:50 03:58 APTT 19.0 L (22.0-30.0) sec Sodium 134 L (137-145) mmol/L Chloride 97 L (98-107) mmol/L Creatinine 0.59 L (0.66-1.25) mg/dL Glucose 261 H (74-99) mg/dL POC Glucose (mg/dL) (75-99) mg/dL Calcium 10.4 H (8.4-10.2) mg/dL Alkaline Phosphatase 136 H (38-126) U/L Triglycerides 420 H (<150) mg/dL 10/27/20 Range/Units 07:41 APTT (22.0-30.0) sec Sodium (137-145) mmol/L Chloride (98-107) mmol/L Creatinine (0.66-1.25) mg/dL Glucose (74-99) mg/dL POC Glucose (mg/dL) 276 H (75-99) mg/dL Calcium (8.4-10.2) mg/dL Alkaline Phosphatase (38-126) U/L Triglycerides (<150) mg/dL Thrombosis Risk Factor Assmnt - DVT/VTE Prophylaxis DVT/VTE Prophylaxis: Pharmacologic Prophylaxis ordered Assessment and Plan Assessment: Atypical chest pain with multiple risk factors. Ruled out ACS. Uncontrolled diabetes type 2 with hyperglycemia insulin-dependent History of mitral valve prolapse History of [place] Hypertension Hyperlipidemia GERD History of PE Check for sleep apnea Morbid obesity BMI 40.4 Chronic back pain due to herniated lumbar disc disease, Sciatica. Follows with pain management clinic. History of cardiac catheterization History of spinal stimulator placement and lumbar laminectomy History of ureteral stent placement DVT prophylaxis Plan: Patient will be continued on aspirin, statins and continue with telemetry monitoring. Serial troponin x3 -. Continue with insulin regimen and insulin sliding scale for better blood sugar control. Continue with IV hydration and cardiology is planning for cardiac catheterization today. Continue pain management with Percocet and follow-up closely. Further recommendations based on clinical course. Prognosis guarded with multiple medical problems and comorbid conditions. Time with Patient: Greater than 30
[2020-10-28] MEDS: SODIUM CHLORIDE 0.9% 1,000 ML IV SCH ×2 (04:13→16:55)
[2020-10-28] MEDS: HYDROmorphone 1 MG/ML 1 ML SYRINGE IVP PRN ×5 (04:23→21:39)
[2020-10-28] MEDS: oxyCODONE-APAP 10-325MG 1 EACH TAB PO PRN ×2 (06:16→15:37)
[2020-10-28 08:07] LABS: Glucose,Whole Blood 211 mg/dL (75-99)
[2020-10-28] MEDS: INSULIN ASPART (NovoLOG) 100 UNIT/ML VIAL SQ SCH ×6 (08:10→17:42)
[2020-10-28] MEDS: PANTOPRAZOLE 40 MG TABLET PO SCH (09:00)
[2020-10-28] MEDS: METOPROLOL SUCCINATE (ER) 50 MG TAB.ER.24H PO SCH (09:00)
[2020-10-28] MEDS: ASPIRIN 325 MG TAB PO SCH (09:00)
[2020-10-28] MEDS: INSULIN DETEMIR (LEVEMIR) 100 UNIT/ML SYR SQ SCH ×2 (09:00→20:31)
[2020-10-28] MEDS: lisinopriL 10 MG TAB PO SCH (09:00)
[2020-10-28] MEDS: TAMSULOSIN 0.4 MG CAP.ER.24H PO SCH (09:00)
[2020-10-28] MEDS: GABAPENTIN 300 MG CAP PO SCH ×3 (09:04→21:39)
[2020-10-28 12:07] LABS: Glucose,Whole Blood 224 mg/dL (75-99)
--- NOTE | 2020-10-28 14:14 | P.PN ---
Subjective This a 54-year-old gentleman who sees Dr. Arora in the office on regular basis with a past medical history significant for diabetes and hypertension, obstructive sleep apnea, GERD and dyslipidemia and recurrent hospital admission with a chest discomfort presented back to the hospital complaining of chest discomfort again and exertional shortness of breath. This is his third admission within the last several months. In the past he underwent stress test multiple times and everything came in to be unremarkable. EKG showed sinus rhythm without any significant or ischemic ST or T-wave abnormalities. The troponin negative x 3. Giving the multiple and recurrent hospital admission with a chest discomfort and he is multiple risk factors he will benefit from coronary angiogram for definitive diagnosis. Patient underwent cardiac catheterization with Dr. Arora yesterday 10/27/20 which revealed normal coronary arteries. Patient had sinus tachycardia throughout cardiac cath patient was given IV metoprolol. Patient was switched from Coreg to ToprolXL 50 mg daily. Patient seen and examined at bedside, no acute distress. His vital signs have been stable. He has been in sinus rhythm on the monitor HR 70-80s, occasionally HR 90s. States he continues to have some left- sided chest pain which has improved from yesterday. She also endorses exertional shortness of breath that has been chronic for him. PHYSICAL EXAMINATION Blood pressure 145/81 heart rate 93 afebrile and maintaining oxygen saturation 97% on room air CONSTITUTIONAL: No apparent distress. HEENT: Head is normocephalic. Pupils are equal, round. Sclerae anicteric. Mucous membranes of the mouth are moist. No JVD. No carotid bruit. CHEST EXAMINATION: Lungs are clear to auscultation. No chest wall tenderness is noted on palpation or with deep breathing. HEART EXAMINATION: Regular rate and rhythm. S1, S2 heard. No murmurs, gallops or rub. ABDOMEN: Soft, nontender. Positive bowel sounds. EXTREMITIES: 2+ peripheral pulses, no lower extremity edema and no calf tendern ess. R femoral Cath site, open to air, clean no hematoma noted NEUROLOGIC EXAMINATION: Patient is awake, alert and oriented x3. ASSESSMENT Chest pain, atypical troponin negative x 3, EKG with no evidence of ischemia Type 2 Diabetes Hypertension Obstructive Sleep Apnea GERD Dyslipidemia PLAN Giving the multiple and recurrent hospital admission with a chest discomfort and he is multiple risk factors patient underwent coronary angiogram for definitive diagnosis and revealed normal coronary arteries. At this time we do not believe his symptoms are cardiac related at this time We will discontinue Carvedilol, Start Metoprolol succinate 50mg daily Continue statin Continue lisinopril 10mg daily From cardiology perspective, no further recommendations or workup at this time. We will sign off. Franky reach out for further questions or concerns Patient will follow up with Dr. Arora in the office within 1 week. Nurse Practitioner note has been reviewed, I agree with a documented findings and plan of care. Patient was seen and examined. Objective - Vital Signs Vital signs: Vital Signs Temp 97.5 F L 10/28/20 00:42 Pulse 93 10/28/20 00:42 Resp 16 10/28/20 00:42 BP 145/81 10/28/20 00:42 Pulse Ox 97 10/28/20 00:42 Intake & Output 10/27/20 10/28/20 10/28/20 18:59 06:59 18:59 Intake Total 150 Balance 150 Weight 131.542 kg Intake: IV 150 Other: Voiding Method Toilet # Voids 2 # Bowel Movements 0 - Labs CBC & Chem 7: 10/26/20 20:50 10/27/20 10:24 Labs: Abnormal Lab Results - Last 24 Hours (Table) 10/27/20 10/27/20 10/27/20 Range/Units 12:11 17:26 20:39 POC Glucose (mg/dL) 199 H 182 H 141 H (75-99) mg/dL 10/28/20 Range/Units 08:06 POC Glucose (mg/dL) 211 H (75-99) mg/dL
[2020-10-28 17:15] LABS: Glucose,Whole Blood 179 mg/dL (75-99)
[2020-10-28 20:14] LABS: Glucose,Whole Blood 247 mg/dL (75-99)
[2020-10-28] MEDS: ATORVASTATIN 20 MG TAB PO SCH (20:31)
--- NOTE | 2020-10-28 22:08 | P.PN ---
Subjective Progress Note Date: 10/28/20 Principal diagnosis: Atypical chest pain with multiple risk factors. Ruled out ACS.Cardiac catheterization on 10/27/2020 showed normal coronaries. History of ureter stent placement patient is a 54-year-old male with known history of hypertension, hyperlipidemia, GERD, asthma, diabetes type 2 insulin- dependent history of [place], mitral valve prolapse, history of PE, obstructive sleep apnea and morbid obesity with BMI 40.4, chronic back pain due to herniated lumbar disc disease, sciatica and history of cardiac catheterization with no PCI and spinal stimulator and lumbar laminectomy 12/27, history of ureteral stent placement and no prior history of smoking presents to ER with complaints of chest pain. Patient states that he woke up yesterday with chest pain. Patient also noticed that his blood sugar is high and took his insulin dose. By 3 PM patient had chest pain again and is getting worse. Patient could not walk and also had difficulty in breathing. Patient was catching of breath. Came to ER for evaluation. Patient was evaluated yesterday morning in the ER and had a negative troponin initially. ACS is being ruled out. Patient left AMA and returned to the ER at 4 PM after having chest pain started at 3 PM. Patient states that he takes Percocet at home for chronic pain. Patient states that he was admitted to the hospital 1 week ago at [facility] due to DKA. Patient also had MRI done showed disc herniation as per the patient. Laboratory data showed WBC 9.9, hemoglobin 14.9 and platelets 308 Sodium 134 potassium 4.2 chloride 97 BUN 16 and creatinine 0.59 blood sugar is 261 and calcium 10.4 and troponin x3 - 10/28/2020 Patient is currently lying in the bed awake alert oriented x3. Complains of palpitations and patient states that he woke up with palpitations. Also complaining of back pain. Also complains of exertional short of breath. Yarely ent is requesting to continue his pain medications. Patient underwent cardiac catheterization on 10/27/2020 and revealed normal coronary arteries. Coreg has been discontinued and changed to Toprol-XL 50 mg daily. However his heart rate is controlled in 70s to 80s. No complaints of nausea vomiting abdominal pain or diarrhea. No fever no chills. Laboratory reviewed. Blood sugar was 211 this morning. Continue with insulin sliding scale and with his home regimen. Current medications reviewed. Objective - Vital Signs Vital signs: Vital Signs Temp 97.8 F 10/28/20 19:24 Pulse 90 10/28/20 19:24 Resp 14 10/28/20 19:24 BP 105/66 10/28/20 19:24 Pulse Ox 98 10/28/20 19:24 Intake & Output 10/28/20 10/28/20 10/29/20 06:59 18:59 06:59 Output Total 1 Balance -1 Output: Stool 1 Other: # Voids 2 2 1 # Bowel Movements 0 - Labs CBC & Chem 7: 10/26/20 20:50 10/27/20 10:24 Labs: Abnormal Lab Results - Last 24 Hours (Table) 10/28/20 10/28/20 10/28/20 Range/Units 08:06 12:05 17:07 POC Glucose (mg/dL) 211 H 224 H 179 H (75-99) mg/dL 10/28/20 Range/Units 20:13 POC Glucose (mg/dL) 247 H (75-99) mg/dL Assessment and Plan Assessment: Atypical chest pain with multiple risk factors. Ruled out ACS.Cardiac catheterization on 10/27/2020 showed normal coronaries. Uncontrolled diabetes type 2 with hyperglycemia insulin-dependent History of mitral valve prolapse History of [place] Hypertension Hyperlipidemia GERD History of PE Check for sleep apnea Morbid obesity BMI 40.4 Chronic back pain due to herniated lumbar disc disease, Sciatica. Follows with pain management clinic. History of cardiac catheterization History of spinal stimulator placement and lumbar laminectomy History of ureteral stent placement DVT prophylaxis Plan: Patient will be continued on aspirin, statins and continue with telemetry monitoring. Serial troponin x3 -. Coreg changed to Toprol-XL due to sinus tachycardia. Continue with insulin regimen and insulin sliding scale for better blood sugar control. s/p cardiac catheterization. Continue pain management with Percocet and follow-up closely. Further recommendations based on clinical course. Prognosis guarded with multiple medical problems and comorbid conditions. Time with Patient: Greater than 30
[2020-10-29] MEDS: oxyCODONE-APAP 10-325MG 1 EACH TAB PO PRN ×3 (00:08→14:19)
[2020-10-29] MEDS: SODIUM CHLORIDE 0.9% 1,000 ML IV SCH (00:09)
[2020-10-29] MEDS: HYDROmorphone 1 MG/ML 1 ML SYRINGE IVP PRN ×3 (02:04→10:12)
[2020-10-29 07:11] LABS: Glucose,Whole Blood 188 mg/dL (75-99)
[2020-10-29] MEDS: METOPROLOL SUCCINATE (ER) 50 MG TAB.ER.24H PO SCH (08:58)
[2020-10-29] MEDS: ASPIRIN 325 MG TAB PO SCH (08:58)
[2020-10-29] MEDS: lisinopriL 10 MG TAB PO SCH (08:58)
[2020-10-29] MEDS: TAMSULOSIN 0.4 MG CAP.ER.24H PO SCH (08:58)
[2020-10-29] MEDS: GABAPENTIN 300 MG CAP PO SCH (08:58)
[2020-10-29] MEDS: INSULIN DETEMIR (LEVEMIR) 100 UNIT/ML SYR SQ SCH (08:59)
[2020-10-29] MEDS: INSULIN ASPART (NovoLOG) 100 UNIT/ML VIAL SQ SCH ×4 (08:59→13:08)
[2020-10-29] MEDS: PANTOPRAZOLE 40 MG TABLET PO SCH (09:00)
[2020-10-29 10:10] LABS: Anion Gap 10.1 mmol/L (4.00-12.00); Calcium 8.4 mg/dL (8.7-10.3); Carbon Dioxide 21.9 mmol/L (21.6-31.8); Non-African American GFR(CKD) 114.8 (60.0-200.0); Potassium 4.5 mmol/L (3.5-5.5)
[2020-10-29 11:46] LABS: Glucose,Whole Blood 173 mg/dL (75-99)
[2020-10-29 15:04] VITALS: BP 160/78; PULSE 89; RESP 18; TEMP 97.9
== END 2020-10-29 14:25 | disposition home health service (06) ==
LOC: EC 18:58 → 6NMEDSUR 22:33
PROVIDERS: ADMIT Hospitalist; ATTEND Hospitalist
DX: R07.9 Chest pain, unspecified (principal); R07.2 Precordial pain; R00.0 Tachycardia, unspecified; E11.65 Type 2 diabetes mellitus with hyperglycemia; I34.1 Nonrheumatic mitral (valve) prolapse; I10 Essential (primary) hypertension; E78.5 Hyperlipidemia, unspecified; K21.9 Gastro-esophageal reflux disease without esophagitis; E66.01 Morbid (severe) obesity due to excess calories; Z68.41 Body mass index [BMI] 40.0-44.9, adult; G89.29 Other chronic pain; J45.909 Unspecified asthma, uncomplicated; M54.30 Sciatica, unspecified side; I25.2 Old myocardial infarction; G47.33 Obstructive sleep apnea (adult) (pediatric); J44.9 Chronic obstructive pulmonary disease, unspecified; I25.110 Atherosclerotic heart disease of native coronary artery with unstable angina pectoris; M51.26 Other intervertebral disc displacement, lumbar region; Z79.899 Other long term (current) drug therapy; Z79.891 Long term (current) use of opiate analgesic; Z79.4 Long term (current) use of insulin; Z88.5 Allergy status to narcotic agent; Z88.8 Allergy status to other drugs, medicaments and biological substances; Z88.1 Allergy status to other antibiotic agents; Z96.0 Presence of urogenital implants; Z20.822 Contact with and (suspected) exposure to COVID-19; Z90.49 Acquired absence of other specified parts of digestive tract; Z86.711 Personal history of pulmonary embolism; Z86.14 Personal history of Methicillin resistant Staphylococcus aureus infection; Z87.440 Personal history of urinary (tract) infections; Z98.890 Other specified postprocedural states; Z95.5 Presence of coronary angioplasty implant and graft; Z87.448 Personal history of other diseases of urinary system; Z82.61 Family history of arthritis; Z80.9 Family history of malignant neoplasm, unspecified; Z82.49 Family history of ischemic heart disease and other diseases of the circulatory system
CPT/HCPCS: 96374; 99285; 36415; 94640; 93005 ×2; 93458; 80061; 80053; 80048 ×2; 83735; 84484 ×2; 85025; 85610; 85730; 87635; 71046; G0378 ×4; C1760; C1894; C1769; J2250; J2001; J3010; J1170 ×4; Q9967; 85379; 96372

== ENCOUNTER 2020-10-31 03:58 | Observation (INO) | payer OTHER ==
[2020-10-31] MEDS ORDERED: HYDROmorphone 1 MG/ML 1 ML SYRINGE IVP STA (04:48)
--- NOTE | 2020-10-31 04:49 | ED ---
Recheck HPI - General Chief Complaint: Chest Pain Stated Complaint: Chest Pain Time Seen by Provider: 10/31/20 04:02 Source: patient, EMS, RN notes reviewed, old records reviewed Mode of arrival: EMS Limitations: no limitations - History of Present Illness Initial Comments: This is a 34-year-old male well-known to this facility for chest pain and chroni c pain bodyaches body pain. Patient presents for chest pain today. Patient states recent heart catheterization was done and he felt maybe improved but currently for the last day. She was had significant chest pain. No fever cough or congestion. No other complaints MD Complaint: medication refill request -: days(s) Returns Today for: persistent/worsening pain related to initial visit Symptoms Since Prior Visit: worsening pain Context: ran out of medication Associated Symptoms: none Treatments Prior to Arrival: Given Pain Meds on - Related Data Home Medications Medication Instructions Recorded Confirmed Omeprazole [PriLOSEC] 20 mg PO BID 12/11/17 10/31/20 Atorvastatin [Lipitor] 20 mg PO HS 08/26/19 10/31/20 Insulin Glargine,Hum.rec.anlog 30 unit SQ BID 08/26/19 10/31/20 [Basaglar Kwikpen U-100] Gabapentin [Neurontin] 300 mg PO TID 10/12/19 10/31/20 INSULIN LISPRO (HumaLOG) [humaLOG] 10 unit SQ AC-TID 02/16/20 10/31/20 Tamsulosin [Flomax] 0.8 mg PO DAILY 04/08/20 10/31/20 Albuterol Sulfate [Proair Hfa] 2 puff INHALATION RT-QID PRN 10/26/20 10/31/20 Methocarbamol [Robaxin-750] 750 mg PO TID 10/26/20 10/31/20 oxyCODONE-APAP 10-325MG [Percocet 1 tab PO QID 10/26/20 10/31/20 10-325 mg] Previous Rx's Medication Instructions Recorded lisinopriL [Zestril] 10 mg PO DAILY #30 tab 02/17/20 Isosorbide Mononitrate ER [Imdur] 30 mg PO DAILY #30 tab.er.24h 11/01/20 Metoprolol Tartrate [Lopressor] 75 mg PO BID #60 tab 11/01/20 Nitroglycerin Sl Tabs [Nitrostat] 0.4 mg SUBLINGUAL Q5M PRN #20 tab 11/01/20 Allergies Allergy/AdvReac Type Severity Reaction Status Date / Time doxycycline Allergy Swelling Verified 10/31/20 07:41 ketorolac tromethamine Allergy Rash/Hives Verified 10/31/20 07:41 [From Toradol] morphine Allergy Rash/Hives Verified 10/31/20 07:41 metoclopramide HCl AdvReac Dystonic Verified 10/31/20 07:41 [From Reglan] Reaction prochlorperazine edisylate AdvReac Dystonic Verified 10/31/20 07:41 [From Compazine] Reaction prochlorperazine maleate AdvReac Dystonic Verified 10/31/20 07:41 [From Compazine] Reaction tramadol AdvReac Nausea & Verified 10/31/20 07:41 Vomiting Review of Systems ROS Statement: Those systems with pertinent positive or pertinent negative responses have been documented in the HPI. ROS Other: All systems not noted in ROS Statement are negative. Past Medical History Past Medical History: Asthma, Chest Pain / Angina, Diabetes Mellitus, GERD/Reflux, Hyperlipidemia, Hypertension, Myocardial Infarction ([place]), Mitral Valve Prolapse (MVP), Pulmonary Embolus (PE), Sleep Apnea/CPAP/BIPAP Additional Past Medical History / Comment(s): Obesity, chronic asthmatic bronchitis, previous history of pulmonary embolism, objective sleep apnea, diabetes mellitus, hypertension, hyperlipidemia, previous history of myocardial infarction with underlying coronary artery disease, renal cysts, chronic back pain secondary to herniated lumbar disc disease with symptoms of sciatica, history of right lower extremity fracture at the age of 13, history of C. diff colitis approximately 4 years ago, history of bleeding peptic ulcer, nephrolithiasis, previous history of UTI and secondary sepsis. Last Myocardial Infarction Date:: 2011 History of Any Multi-Drug Resistant Organisms: MRSA Date of last positivie culture/infection: 2016 MDRO Source:: left axilla Past Surgical History: Appendectomy, Back Surgery, Cholecystectomy, Heart Catheterization, Hernia Repair Additional Past Surgical History / Comment(s): 2007 back surgery with decompression fusion at [facility], 2011, 2016 cardiac cath, multiple ESWL/ureteral stents/ double J catheters, L inquinal hernia repair, PICC line for ABX for urosepsis-since removed., spinal stimulator and lumbar laminectomy 12/27. Colectomy February 2020 Past Anesthesia/Blood Transfusion Reactions: No Reported Reaction Past Psychological History: No Psychological Hx Reported Smoking Status: Never smoker Past Alcohol Use History: None Reported Past Drug Use History: None Reported - Past Family History Father Family Medical History: Chest Pain / Angina Additional Family Medical History / Comment(s): "lung problems" Mother Family Medical History: Cancer, Chest Pain / Angina, Congestive Heart Failure (CHF), Osteoarthritis (OA), Thyroid Disorder Additional Family Medical History / Comment(s): "female cancer" General Exam Limitations: no limitations General appearance: alert, in no apparent distress, anxious, obese Head exam: Present: atraumatic, normocephalic, normal inspection Eye exam: Present: normal appearance, PERRL, EOMI. Absent: scleral icterus, conjunctival injection, periorbital swelling ENT exam: Present: normal exam, mucous membranes moist Neck exam: Present: normal inspection. Absent: tenderness, meningismus, lymphadenopathy Respiratory exam: Present: normal lung sounds bilaterally. Absent: respiratory distress, wheezes, rales, rhonchi, stridor Cardiovascular Exam: Present: normal rhythm, tachycardia, normal heart sounds. Absent: systolic murmur, diastolic murmur, rubs, gallop, clicks GI/Abdominal exam: Present: soft, normal bowel sounds. Absent: distended, tenderness, guarding, rebound, rigid Extremities exam: Present: normal inspection, full ROM, normal capillary refill. Absent: tenderness, pedal edema, joint swelling, calf tenderness Back exam: Present: normal inspection Neurological exam: Present: alert, oriented X3, CN II-XII intact Psychiatric exam: Present: normal affect, normal mood Skin exam: Present: warm, dry, intact, normal color. Absent: rash Course Vital Signs 10/31/20 10/31/20 10/31/20 04:06 05:00 05:09 Temperature Pulse Rate 119 H 99 Pulse Rate [ 108 H [employer] ] Respiratory 16 20 Rate Blood Pressure 160/97 160/96 O2 Sat by Pulse 98 99 Oximetry 10/31/20 10/31/20 10/31/20 06:40 06:52 07:18 Temperature 98.2 F 97.9 F Pulse Rate 101 H 105 H Pulse Rate [ [employer] ] Respiratory 20 16 Rate Blood Pressure 171/104 O2 Sat by Pulse 99 98 Oximetry 10/31/20 10/31/20 09:00 12:56 Temperature Pulse Rate 105 H 80 Pulse Rate [ [employer] ] Respiratory 16 16 Rate Blood Pressure 152/102 137/91 O2 Sat by Pulse 98 100 Oximetry - Reevaluation(s) Reevaluation #1: Medical record is reviewed Patient symptoms are significantly improved here in the emergency department Patient family informed of results, questions answered Medical Decision Making - Medical Decision Making 51 female DF for evaluation will admit for recurrent chest pain - Lab Data Result diagrams: 10/31/20 04:47 10/31/20 04:47 Lab Results 10/31/20 10/31/20 10/31/20 Range/Units 04:47 04:47 04:47 WBC 9.2 (3.8-10.6) k/uL RBC 4.79 (4.30-5.90) m/uL Hgb 13.7 (13.0-17.5) gm/dL Hct 39.2 (39.0-53.0) % MCV 81.8 (80.0-100.0) fL MCH 28.5 (25.0-35.0) pg MCHC 34.8 (31.0-37.0) g/dL RDW 14.5 (11.5-15.5) % Plt Count 250 (150-450) k/uL MPV 6.9 Neutrophils % 75 % Lymphocytes % 16 % Monocytes % 6 % Eosinophils % 2 % Basophils % 0 % Neutrophils # 6.8 (1.3-7.7) k/uL Lymphocytes # 1.4 (1.0-4.8) k/uL Monocytes # 0.6 (0-1.0) k/uL Eosinophils # 0.2 (0-0.7) k/uL Basophils # 0.0 (0-0.2) k/uL PT 9.5 (9.0-12.0) sec INR 0.9 (<1.2) APTT 20.1 L (22.0-30.0) sec Sodium 133 L (137-145) mmol/L Potassium 4.5 (3.5-5.1) mmol/L Chloride 101 (98-107) mmol/L Carbon Dioxide 22 (22-30) mmol/L Anion Gap 10 mmol/L BUN 11 (9-20) mg/dL Creatinine 0.50 L (0.66-1.25) mg/dL Est GFR (CKD-EPI)AfAm >90 (>60 ml/min/1.73 sqM) Est GFR (CKD-EPI)NonAf >90 (>60 ml/min/1.73 sqM) Glucose 239 H (74-99) mg/dL Calcium 9.8 (8.4-10.2) mg/dL Magnesium 1.7 (1.6-2.3) mg/dL Total Bilirubin 0.6 (0.2-1.3) mg/dL AST 23 (17-59) U/L ALT 25 (4-49) U/L Alkaline Phosphatase 111 (38-126) U/L Troponin I (0.000-0.034) ng/mL Total Protein 6.8 (6.3-8.2) g/dL Albumin 4.2 (3.5-5.0) g/dL Triglycerides (<150) mg/dL Cholesterol (<200) mg/dL LDL Cholesterol, Calc (0-99) mg/dL HDL Cholesterol (40-60) mg/dL 10/31/20 10/31/20 Range/Units 04:47 04:47 WBC (3.8-10.6) k/uL RBC (4.30-5.90) m/uL Hgb (13.0-17.5) gm/dL Hct (39.0-53.0) % MCV (80.0-100.0) fL MCH (25.0-35.0) pg MCHC (31.0-37.0) g/dL RDW (11.5-15.5) % Plt Count (150-450) k/uL MPV Neutrophils % % Lymphocytes % % Monocytes % % Eosinophils % % Basophils % % Neutrophils # (1.3-7.7) k/uL Lymphocytes # (1.0-4.8) k/uL Monocytes # (0-1.0) k/uL Eosinophils # (0-0.7) k/uL Basophils # (0-0.2) k/uL PT (9.0-12.0) sec INR (<1.2) APTT (22.0-30.0) sec Sodium (137-145) mmol/L Potassium (3.5-5.1) mmol/L Chloride (98-107) mmol/L Carbon Dioxide (22-30) mmol/L Anion Gap mmol/L BUN (9-20) mg/dL Creatinine (0.66-1.25) mg/dL Est GFR (CKD-EPI)AfAm (>60 ml/min/1.73 sqM) Est GFR (CKD-EPI)NonAf (>60 ml/min/1.73 sqM) Glucose (74-99) mg/dL Calcium (8.4-10.2) mg/dL Magnesium (1.6-2.3) mg/dL Total Bilirubin (0.2-1.3) mg/dL AST (17-59) U/L ALT (4-49) U/L Alkaline Phosphatase (38-126) U/L Troponin I <0.012 (0.000-0.034) ng/mL Total Protein (6.3-8.2) g/dL Albumin (3.5-5.0) g/dL Triglycerides 233 H (<150) mg/dL Cholesterol 185 (<200) mg/dL LDL Cholesterol, Calc 93 (0-99) mg/dL HDL Cholesterol 45 (40-60) mg/dL - EKG Data -: EKG Interpreted by Me (EKG shows sinus tachycardia 102 OR 140 QRS 108 QTc 490) - Radiology Data Radiology results: report reviewed (Chest x-rays negative for acute disease), image reviewed Disposition Clinical Impression: Atypical chest pain, Abdominal pain Disposition: HOME SELF-CARE Condition: Good Is patient prescribed a controlled substance at d/c from ED?: No
[2020-10-31 05:30] LABS: Basophils % (A) 0 %; Eosinophils # (A) 0.2 k/uL (0-0.7); Eosinophils % (A) 2 %; HCT 39.2 % (39.0-53.0); HGB 13.7 gm/dL (13.0-17.5); Lymphocytes # (A) 1.4 k/uL (1.0-4.8); Lymphocytes % (A) 16 %; MCH 28.5 pg (25.0-35.0); MCHC 34.8 g/dL (31.0-37.0); MCV 81.8 fL (80.0-100.0); Mean Platelet Volume 6.9; Monocytes # (A) 0.6 k/uL (0-1.0); Monocytes % (A) 6 %; Neutrophils # (A) 6.8 k/uL (1.3-7.7); Neutrophils % (A) 75 %; Platelet Count 250 k/uL (150-450); RBC 4.79 m/uL (4.30-5.90); RDW 14.5 % (11.5-15.5); WBC 9.2 k/uL (3.8-10.6)
[2020-10-31 05:38] LABS: ALT 25 U/L (4-49); AST 23 U/L (17-59); African American GFR (CKD) >90 (>60 ml/min/1.73 sqM); Albumin 4.2 g/dL (3.5-5.0); Alkaline Phosphatase 111 U/L (38-126); Anion Gap 10 mmol/L; Blood Urea Nitrogen 11 mg/dL (9-20); Calcium 9.8 mg/dL (8.4-10.2); Carbon Dioxide 22 mmol/L (22-30); Chloride 101 mmol/L (98-107); Glucose 239 mg/dL (74-99); Magnesium 1.7 mg/dL (1.6-2.3); Non-African American GFR(CKD) >90 (>60 ml/min/1.73 sqM); Potassium 4.5 mmol/L (3.5-5.1); Sodium 133 mmol/L (137-145); Total Bilirubin 0.6 mg/dL (0.2-1.3); Total Protein 6.8 g/dL (6.3-8.2)
[2020-10-31 05:48] LABS: INR 0.9 (<1.2); Prothrombin Time 9.5 sec (9.0-12.0)
--- NOTE | 2020-10-31 05:55 | XR ---
EXAM: XR Chest, 2 Views CLINICAL HISTORY: Its. reason XR Reason: Chest Pain TECHNIQUE: Frontal and lateral views of the chest. COMPARISON: 10/26/20 FINDINGS: Lungs: Slight prominence of the central markings which may reflect low lung volume. This may reflect mild congestion Lung bases suboptimally visualized due to underpenetrated technique. Tiny left effusion is difficult to exclude Pleural space: Unremarkable. No pneumothorax. Heart: Cardiovascular silhouette, upper limits of normal likely accentuated by low lung volume. This is unchanged. Mediastinum: Tortuous thoracic aorta, unchanged. Bones/joints: Unremarkable. Tubes, lines and devices: Overlying chest leads obscure portion of the chest. IMPRESSION: 1. Stable prominent cardiovascular silhouette. 2. Possible mild congestion versus prominent lung markings due to low lung volume.
[2020-10-31 05:58] LABS: Partial Thromboplastin Time 20.1 sec (22.0-30.0)
[2020-10-31] MEDS ORDERED: NITROGLYCERIN SL TABS 0.4 MG TAB SUBLINGUAL PRN (06:23)
[2020-10-31] MEDS ORDERED: ASPIRIN 81 MG PO STA (06:23)
[2020-10-31] MEDS: SODIUM CHLORIDE 0.9% 1,000 ML IV SCH ×2 (06:41→14:37)
[2020-10-31] MEDS: HYDROmorphone 1 MG/ML 1 ML SYRINGE IVP PRN ×4 (06:47→20:57)
[2020-10-31] MEDS ORDERED: METOPROLOL TARTRATE 50 MG TAB PO SCH (09:00)
--- NOTE | 2020-10-31 14:27 | P.CRDCN ---
History of Present Illness History of present illness: HISTORY OF PRESENTING ILLNESS Patient is a 54-year-old male with history of diabetes mellitus type 2, hypertension, hyperlipidemia, asthma, obstructive sleep apnea, morbid obesity, GERD and frequent chest pains who presents secondary to recurrent chest pain. Patient was just seen 5 days ago for episodes of chest pain. He was worked up with normal troponins however given prior normal stress test and recurrent symptoms heart catheterization was recommended which showed normal coronary arteries on 10/27/2020. He states that the chest pain is improved with nitroglycerin as well as Dilaudid. He was told that his blood pressures been somewhat elevated and therefore wonders if there is a correlation and is also concerned that tachycardia may be causing his chest pain as well. Patient has had elevated pressures, 137/91 up to 171/104 and heart rates 80s to low 100 100s. He was recently changed from atenolol to metoprolol however has not noticed any difference however only has been a few days. Patient states there are 2 different types of chest pain when it feels like a pressure, squeezing sensation like someone is squeezing his heart and another one that feels like someone is stabbing his chest. No associated nausea, diaphoresis or shortness breath. No association with any exercise or activity. He states his debilitating enough that he cannot do much of anything. Blood work showed normal troponins and no other acute process. He has been receiving Dilaudid every 4 hours for pain. Blood pressures have been somewhat elevated however also states he is in severe pain currently. REVIEW OF SYSTEMS At the time of my exam: CONSTITUTIONAL: Denies fever or chills. CARDIOVASCULAR: + chest pain, no shortness of breath, orthopnea, PND or palpitations. RESPIRATORY: Denies cough. GASTROINTESTINAL: Chronic abdominal pain, no diarrhea, constipation, nausea or vomiting. MUSCULOSKELETAL: Denies myalgias. NEUROLOGIC: Denies numbness, tingling or weakness. ENDOCRINE: Denies fatigue, weight change, polydipsia or polyurina. GENITOURINARY: Denies burning, hematuria or urgency with micturation. HEMATOLOGIC: Denies history of anemia or bleeding. PHYSICAL EXAMINATION Vital signs reviewed. CONSTITUTIONAL: No apparent distress, obese HEENT: Head is normocephalic. Pupils are equal, round. Sclerae anicteric. Mucous membranes of the mouth are moist. No JVD. No carotid bruit. CHEST EXAMINATION: Lungs are clear to auscultation. No chest wall tenderness is noted on palpation or with deep breathing. HEART EXAMINATION: Regular rate and rhythm. S1, S2 heard. No murmurs, gallops or rub. ABDOMEN: Soft, nontender. Positive bowel sounds. EXTREMITIES: 2+ peripheral pulses, no lower extremity edema and no calf tenderness. NEUROLOGIC EXAMINATION: Patient is awake, alert and oriented x3. ASSESSMENT 1. Atypical chest pain with troponins normal 3 and recent workup with left heart catheterization 10/27/2020 showing normal coronary arteries 2. Hypertension, likely elevated from pain 3. Sinus tachycardia likely related to pain 4. Morbid obesity 5. Diabetes mellitus type 2 6. Hyperlipidemia PLAN Patient's chest pain is atypical and extensive workup with normal heart catheterization 4 days ago. Discussed optimization of antianginals for possible microvascular dysfunction although doubtful chest pain is cardiac in nature and patient is agreeable. Therefore we will increase metoprolol to 75mg and will add Imdur. Question if there is some drug seeking behavior. Would consider non-narcotic pain regimen. No further workup as an inpatient and followup with Dr Arora in 1 week. Please call with questions. Past Medical History Past Medical History: Asthma, Chest Pain / Angina, Diabetes Mellitus, GERD/Reflux, Hyperlipidemia, Hypertension, Myocardial Infarction (ND), Mitral Valve Prolapse (MVP), Pulmonary Embolus (PE), Sleep Apnea/CPAP/BIPAP Additional Past Medical History / Comment(s): Obesity, chronic asthmatic bronchitis, previous history of pulmonary embolism, objective sleep apnea, diabetes mellitus, hypertension, hyperlipidemia, previous history of myocardial infarction with underlying coronary artery disease, renal cysts, chronic back pain secondary to herniated lumbar disc disease with symptoms of sciatica, history of right lower extremity fracture at the age of 13, history of C. diff colitis approximately 4 years ago, history of bleeding peptic ulcer, nephrolithiasis, previous history of UTI and secondary sepsis. Last Myocardial Infarction Date:: 2011 History of Any Multi-Drug Resistant Organisms: MRSA Date of last positivie culture/infection: 2016 MDRO Source:: left axilla Past Surgical History: Appendectomy, Back Surgery, Cholecystectomy, Heart Catheterization, Hernia Repair Additional Past Surgical History / Comment(s): 2007 back surgery with decompression fusion at [facility], 2011, 2016 cardiac cath, multiple ESWL/ureteral stents/ double J catheters, L inquinal hernia repair, PICC line for ABX for urosepsis-since removed., spinal stimulator and lumbar laminectomy 12/27. Colectomy February 2020 Past Anesthesia/Blood Transfusion Reactions: No Reported Reaction Past Psychological History: No Psychological Hx Reported Smoking Status: Never smoker Past Alcohol Use History: None Reported Past Drug Use History: None Reported - Past Family History Father Family Medical History: Chest Pain / Angina Additional Family Medical History / Comment(s): "lung problems" Mother Family Medical History: Cancer, Chest Pain / Angina, Congestive Heart Failure (CHF), Osteoarthritis (OA), Thyroid Disorder Additional Family Medical History / Comment(s): "female cancer" Medications and Allergies Home Medications Medication Instructions Recorded Confirmed Type Omeprazole [PriLOSEC] 20 mg PO BID 12/11/17 10/31/20 History Atorvastatin [Lipitor] 20 mg PO HS 08/26/19 10/31/20 History Insulin Glargine,Hum.rec.anlog 30 unit SQ BID 08/26/19 10/31/20 History [Basaglar Kwikpen U-100] Gabapentin [Neurontin] 300 mg PO TID 10/12/19 10/31/20 History INSULIN LISPRO (HumaLOG) [humaLOG] 10 unit SQ AC-TID 02/16/20 10/31/20 History lisinopriL [Zestril] 10 mg PO DAILY #30 tab 02/17/20 10/31/20 Rx Tamsulosin [Flomax] 0.8 mg PO DAILY 04/08/20 10/31/20 History Albuterol Sulfate [Proair Hfa] 2 puff INHALATION RT-QID PRN 10/26/20 10/31/20 History Methocarbamol [Robaxin-750] 750 mg PO TID 10/26/20 10/31/20 History oxyCODONE-APAP 10-325MG [Percocet 1 tab PO QID 10/26/20 10/31/20 History 10-325 mg] Metoprolol Succinate (ER) [Toprol 50 mg PO DAILY 30 Days #30 10/28/20 10/31/20 Rx XL] tab.er.24h Allergies Allergy/AdvReac Type Severity Reaction Status Date / Time doxycycline Allergy Swelling Verified 10/31/20 07:41 ketorolac tromethamine Allergy Rash/Hives Verified 10/31/20 07:41 [From Toradol] morphine Allergy Rash/Hives Verified 10/31/20 07:41 metoclopramide HCl AdvReac Dystonic Verified 10/31/20 07:41 [From Reglan] Reaction prochlorperazine edisylate AdvReac Dystonic Verified 10/31/20 07:41 [From Compazine] Reaction prochlorperazine maleate AdvReac Dystonic Verified 10/31/20 07:41 [From Compazine] Reaction tramadol AdvReac Nausea & Verified 10/31/20 07:41 Vomiting Physical Exam Vitals: Vital Signs Temp Pulse Pulse Resp BP Pulse Ox 10/31/20 12:56 80 16 137/91 100 10/31/20 09:00 105 H 16 152/102 98 10/31/20 07:18 97.9 F 105 H 16 98 10/31/20 06:52 98.2 F 10/31/20 06:40 101 H 20 171/104 99 10/31/20 05:09 99 20 160/96 99 10/31/20 05:00 108 H 10/31/20 04:06 119 H 16 160/97 98 Intake and Output 10/30/20 10/31/20 10/31/20 22:59 06:59 14:59 Other: Weight 131.542 kg Results 10/31/20 04:47 10/31/20 04:47 Cardiac Enzymes 10/31/20 10/31/20 10/31/20 Range/Units 04:47 04:47 09:12 AST 23 (17-59) U/L Troponin I <0.012 <0.012 (0.000-0.034) ng/mL 10/31/20 Range/Units 12:13 AST (17-59) U/L Troponin I <0.012 (0.000-0.034) ng/mL Coagulation 10/31/20 Range/Units 04:47 PT 9.5 (9.0-12.0) sec APTT 20.1 L (22.0-30.0) sec CBC 10/31/20 Range/Units 04:47 WBC 9.2 (3.8-10.6) k/uL RBC 4.79 (4.30-5.90) m/uL Hgb 13.7 (13.0-17.5) gm/dL Hct 39.2 (39.0-53.0) % Plt Count 250 (150-450) k/uL Comprehensive Metabolic Panel 10/31/20 Range/Units 04:47 Sodium 133 L (137-145) mmol/L Potassium 4.5 (3.5-5.1) mmol/L Chloride 101 (98-107) mmol/L Carbon Dioxide 22 (22-30) mmol/L BUN 11 (9-20) mg/dL Creatinine 0.50 L (0.66-1.25) mg/dL Glucose 239 H (74-99) mg/dL Calcium 9.8 (8.4-10.2) mg/dL AST 23 (17-59) U/L ALT 25 (4-49) U/L Alkaline Phosphatase 111 (38-126) U/L Total Protein 6.8 (6.3-8.2) g/dL Albumin 4.2 (3.5-5.0) g/dL Current Medications Generic Name Dose Route Start Last Admin Trade Name Freq PRN Reason Stop Dose Admin Aspirin 325 mg 11/01/20 09:00 Aspirin 325 Mg Tab PO DAILY JOEY Hydromorphone HCl 1 mg 10/31/20 06:24 10/31/20 11:53 Hydromorphone 1 Mg/Ml 1 Ml Syringe IVP 1 mg Q4HR PRN Administration Pain Sodium Chloride 1,000 mls @ 100 mls/hr 10/31/20 06:30 10/31/20 06:41 Saline 0.9% IV 100 mls/hr .Q10H JOEY Administration Metoprolol Tartrate 50 mg 10/31/20 09:00 10/31/20 09:20 Metoprolol Tartrate 50 Mg Tab PO 50 mg BID JOEY Administration Nitroglycerin 0.4 mg 10/31/20 06:23 10/31/20 06:47 Nitroglycerin Sl Tabs 0.4 Mg Tab SUBLINGUAL 0.4 mg Q5M PRN Administration Chest Pain Intake and Output 10/30/20 10/31/20 10/31/20 22:59 06:59 14:59 Other: Weight 131.542 kg 10/31/20 04:47 10/31/20 04:47
[2020-10-31] MEDS: ISOSORBIDE MONONITRATE ER 30 MG TAB.ER.24H PO SCH (14:37)
[2020-10-31] MEDS: PANTOPRAZOLE 40 MG TABLET PO SCH (15:59)
[2020-10-31] MEDS: GABAPENTIN 300 MG CAP PO SCH ×2 (15:59→20:58)
[2020-10-31] MEDS: methocarbamoL 750 MG TAB PO SCH ×2 (16:13→21:28)
[2020-10-31 17:25] LABS: Glucose,Whole Blood 206 mg/dL (75-99)
[2020-10-31] MEDS: INSULIN ASPART (NovoLOG) 100 UNIT/ML VIAL SQ SCH ×2 (17:27→20:57)
[2020-10-31 20:07] LABS: Glucose,Whole Blood 194 mg/dL (75-99)
[2020-10-31] MEDS: INSULIN DETEMIR (LEVEMIR) 100 UNIT/ML SYR SQ SCH (20:56)
[2020-10-31] MEDS: METOPROLOL TARTRATE 25 MG TAB PO SCH (20:59)
[2020-10-31] MEDS ORDERED: ATORVASTATIN 20 MG TAB PO SCH (21:00)
--- NOTE | 2020-11-01 01:22 | P.HPIM ---
History of Present Illness H&P Date: 10/31/20 Chief Complaint: chest pain Mr. Morales is a 54-year-old male with a past medical history of hypertension, hyperlipidemia, GERD, asthma, type 2 diabetes mellitus, [place], mitral valve prolapse, history of PE, JARED, morbid obesity, ureteral stent placement coming into the ER with a chief complaint of chest pain. Patient states that he woke up with chest pain yesterday and for 12 hours he continuously had this pain so came in for further evaluation. Patient states its mostly substernal, nonradiating. It is not associated with any nausea vomiting or diaphoresis. Patient denies having any orthopnea or PND. No fevers chills or rigors. No cough or difficulty in breathing. No palpitations. He was recently seen in the hospital 5 days back and had a normal stress test done. He also had cardiac catheterization which showed normal coronaries on 10/27/2020. In the ER he had blood work done showing white count of 9.2, hemoglobin 13.7, platelets 250. Sodium 133, potassium 4.5, chloride 101, bicarb 20, BUN 11, creatinine 0.50 blood sugar slightly elevated in 200s to 250s. Coronavirus PCR is negative. Review of Systems All systems: negative Constitutional: none Eyes: denies blurred vision, denies pain Ears, nose, mouth and throat: Denies headache, Denies sore throat Cardiovascular: as per HPI Respiratory: Reports cough with sputum, Reports dyspnea, Denies cough Gastrointestinal: Denies abdominal pain, Denies diarrhea, Denies nausea, Denies vomiting Genitourinary: Denies dysuria, Denies hematuria Musculoskeletal: Denies myalgias Integumentary: Denies pruritus, Denies rash Neurological: Denies numbness, Denies weakness Psychiatric: Denies anxiety, Denies depression Endocrine: Denies fatigue, Denies weight change Past Medical History Past Medical History: Asthma, Chest Pain / Angina, Diabetes Mellitus, GERD/Reflux, Hyperlipidemia, Hypertension, Myocardial Infarction ([place]), Mitral Valve Prolapse (MVP), Pulmonary Embolus (PE), Sleep Apnea/CPAP/BIPAP Additional Past Medical History / Comment(s): Obesity, chronic asthmatic bronchitis, previous history of pulmonary embolism, objective sleep apnea, diabetes mellitus, hypertension, hyperlipidemia, previous history of myocardial infarction with underlying coronary artery disease, renal cysts, chronic back pain secondary to herniated lumbar disc disease with symptoms of sciatica, history of right lower extremity fracture at the age of 13, history of C. diff colitis approximately 4 years ago, history of bleeding peptic ulcer, nephrolithiasis, previous history of UTI and secondary sepsis. Last Myocardial Infarction Date:: 2011 History of Any Multi-Drug Resistant Organisms: MRSA Date of last positivie culture/infection: 2016 MDRO Source:: left axilla Past Surgical History: Appendectomy, Back Surgery, Cholecystectomy, Heart Cath eterization, Hernia Repair Additional Past Surgical History / Comment(s): 2007 back surgery with decompression fusion at [facility], 2011, 2016 cardiac cath, multiple E SWL/ureteral stents/ double J catheters, L inquinal hernia repair, PICC line for ABX for urosepsis-since removed., spinal stimulator and lumbar laminectomy 12/27. Colectomy February 2020 Past Anesthesia/Blood Transfusion Reactions: No Reported Reaction Past Psychological History: No Psychological Hx Reported Smoking Status: Never smoker Past Alcohol Use History: None Reported Past Drug Use History: None Reported - Past Family History Father Family Medical History: Chest Pain / Angina Additional Family Medical History / Comment(s): "lung problems" Mother Family Medical History: Cancer, Chest Pain / Angina, Congestive Heart Failure (CHF), Osteoarthritis (OA), Thyroid Disorder Additional Family Medical History / Comment(s): "female cancer" Medications and Allergies Home Medications Medication Instructions Recorded Confirmed Type Omeprazole [PriLOSEC] 20 mg PO BID 12/11/17 10/31/20 History Atorvastatin [Lipitor] 20 mg PO HS 08/26/19 10/31/20 History Insulin Glargine,Hum.rec.anlog 30 unit SQ BID 08/26/19 10/31/20 History [Basaglar Kwikpen U-100] Gabapentin [Neurontin] 300 mg PO TID 10/12/19 10/31/20 History INSULIN LISPRO (HumaLOG) [humaLOG] 10 unit SQ AC-TID 02/16/20 10/31/20 History lisinopriL [Zestril] 10 mg PO DAILY #30 tab 02/17/20 10/31/20 Rx Tamsulosin [Flomax] 0.8 mg PO DAILY 04/08/20 10/31/20 History Albuterol Sulfate [Proair Hfa] 2 puff INHALATION RT-QID PRN 10/26/20 10/31/20 History Methocarbamol [Robaxin-750] 750 mg PO TID 10/26/20 10/31/20 History oxyCODONE-APAP 10-325MG [Percocet 1 tab PO QID 10/26/20 10/31/20 History 10-325 mg] Metoprolol Succinate (ER) [Toprol 50 mg PO DAILY 30 Days #30 10/28/20 10/31/20 Rx XL] tab.er.24h Allergies Allergy/AdvReac Type Severity Reaction Status Date / Time doxycycline Allergy Swelling Verified 10/31/20 07:41 ketorolac tromethamine Allergy Rash/Hives Verified 10/31/20 07:41 [From Toradol] morphine Allergy Rash/Hives Verified 10/31/20 07:41 metoclopramide HCl AdvReac Dystonic Verified 10/31/20 07:41 [From Reglan] Reaction prochlorperazine edisylate AdvReac Dystonic Verified 10/31/20 07:41 [From Compazine] Reaction prochlorperazine maleate AdvReac Dystonic Verified 10/31/20 07:41 [From Compazine] Reaction tramadol AdvReac Nausea & Verified 10/31/20 07:41 Vomiting Physical Exam Vitals: Vital Signs Temp Pulse Pulse Resp BP Pulse Ox 10/31/20 09:00 105 H 16 152/102 98 10/31/20 07:18 97.9 F 105 H 16 98 10/31/20 06:52 98.2 F 10/31/20 06:40 101 H 20 171/104 99 10/31/20 05:09 99 20 160/96 99 10/31/20 05:00 108 H 10/31/20 04:06 119 H 16 160/97 98 Intake and Output 10/30/20 10/31/20 10/31/20 22:59 06:59 14:59 Other: Weight 131.542 kg GENERAL: The patient is alert and oriented x3, not in any acute distress. Well developed, well nourished. HEENT: Pupils are round and equally reacting to light. EOMI. No scleral icterus. No conjunctival pallor. CARDIOVASCULAR: S1 and S2 present. No murmurs, rubs, or gallops. PULMONARY: Chest is clear to auscultation, no wheezing or crackles. ABDOMEN: Soft, nontender, nondistended, normoactive bowel sounds. No palpable organomegaly. MUSCULOSKELETAL: No joint swelling or deformity. EXTREMITIES: No cyanosis, clubbing, or pedal edema. NEUROLOGICAL: Gross neurological examination did not reveal any focal deficits. SKIN: No rashes. no petechiae. Results CBC & Chem 7: 10/31/20 04:47 10/31/20 04:47 Labs: Abnormal Lab Results - Last 24 Hours (Table) 10/31/20 10/31/20 Range/Units 04:47 04:47 APTT 20.1 L (22.0-30.0) sec Sodium 133 L (137-145) mmol/L Creatinine 0.50 L (0.66-1.25) mg/dL Glucose 239 H (74-99) mg/dL Assessment and Plan Assessment: ASSESSMENT Atypical chest pain Hypertension Sinus tachycardia Type 2 diabetes mellitus poorly controlled Mild hyponatremia Morbid obesity with BMI of 40.4 Hyperlipidemia PLAN: Patient had serial troponins that have been negative. He recently had a cardiac cath on 10/27/2020 which was showing normal coronaries. Cardiology has been consulted, his metoprolol dose has been increased and Imdur was added. Continue with the current medication regimen. Further recommendations to follow depending on the progress of the patient.
[2020-11-01 03:42] LABS: Cholesterol 185 mg/dL (<200); HDL Cholesterol 45 mg/dL (40-60); LDL Cholesterol,Calculated 93 mg/dL (0-99); Triglycerides 233 mg/dL (<150)
[2020-11-01] MEDS: SODIUM CHLORIDE 0.9% 1,000 ML IV SCH ×2 (04:49→11:01)
[2020-11-01 07:10] LABS: Glucose,Whole Blood 237 mg/dL (75-99)
[2020-11-01] MEDS: GABAPENTIN 300 MG CAP PO SCH ×2 (07:51→17:13)
[2020-11-01] MEDS: PANTOPRAZOLE 40 MG TABLET PO SCH (07:51)
[2020-11-01] MEDS: METOPROLOL TARTRATE 25 MG TAB PO SCH (07:51)
[2020-11-01] MEDS: ISOSORBIDE MONONITRATE ER 30 MG TAB.ER.24H PO SCH (07:51)
[2020-11-01] MEDS: INSULIN DETEMIR (LEVEMIR) 100 UNIT/ML SYR SQ SCH (07:52)
[2020-11-01] MEDS: INSULIN ASPART (NovoLOG) 100 UNIT/ML VIAL SQ SCH ×4 (07:52→12:00)
[2020-11-01] MEDS: oxyCODONE-APAP 10-325MG 1 EACH TAB PO SCH ×3 (07:57→17:13)
[2020-11-01] MEDS: methocarbamoL 750 MG TAB PO SCH ×2 (07:57→17:12)
[2020-11-01 08:21] VITALS: BP 156/95; PULSE 77; RESP 18; TEMP 97.5
[2020-11-01] MEDS ORDERED: TAMSULOSIN 0.4 MG CAP.ER.24H PO SCH (09:00)
[2020-11-01] MEDS ORDERED: ASPIRIN 325 MG TAB PO SCH (09:00)
[2020-11-01] MEDS ORDERED: lisinopriL 10 MG TAB PO SCH (09:00)
[2020-11-01 11:40] LABS: Glucose,Whole Blood 206 mg/dL (75-99)
--- NOTE | 2020-11-01 17:06 | P.DS ---
Providers Date of admission: 10/31/20 06:23 Expected date of discharge: 11/01/20 Attending physician: Reid Deal Consults: 10/31/20 06:23 Consult Physician Urgent Consulting Provider: Saira Oliveira Consult Reason/Comments: cp Do you want consulting provider notified?: Yes Primary care physician: [facility] Course: Mr. Morales is a 54-year-old male with a past medical history of hypertension, hyperlipidemia, GERD, asthma, type 2 diabetes mellitus, [place], mitral valve prolapse, history of PE, JARED, morbid obesity, ureteral stent placement coming into the ER with a chief complaint of chest pain. Patient states that he woke up with chest pain yesterday and for 12 hours he continuously had this pain so came in for further evaluation. Patient states its mostly substernal, nonradiating. It is not associated with any nausea vomiting or diaphoresis. Patient denies having any orthopnea or PND. No fevers chills or rigors. No cough or difficulty in breathing. No palpitations. He was recently seen in the hospital 5 days back and had a normal stress test done. He also had cardiac catheterization which showed normal coronaries on 10/27/2020. In the ER he had blood work done showing white count of 9.2, hemoglobin 13.7, platelets 250. Sodium 133, potassium 4.5, chloride 101, bicarb 20, BUN 11, creatinine 0.50 blood sugar slightly elevated in 200s to 250s. Coronavirus PCR is negative. Hospital course - Patient had serial troponins that have been negative. He recently had a cardiac cath on 10/27/2020 which was showing normal coronaries. Cardiology has been consulted, his metoprolol dose has been increased and Imdur was added. And he was cleared by cardiology to be discharged home. So patient is being discharged home in a stable condition, advised him to be compliant with his medications. He was started on Imdur and his metoprolol dose has been increased, these medications have been sent to his pharmacy. He is advised to follow-up with his primary care physician in 2-3 days. DISCHARGE DIAGNOSIS Atypical chest pain Hypertension Sinus tachycardia Type 2 diabetes mellitus poorly controlled Mild hyponatremia Morbid obesity with BMI of 40.4 Hyperlipidemia Follow-up: Advised to follow-up with his PCP in 2-3 days. Patient Condition at Discharge: Good Plan - Discharge Summary New Discharge Prescriptions: New Nitroglycerin Sl Tabs [Nitrostat] 0.4 mg SUBLINGUAL Q5M PRN #20 tab PRN Reason: Chest Pain Isosorbide Mononitrate ER [Imdur] 30 mg PO DAILY #30 tab.er.24h Metoprolol Tartrate [Lopressor] 75 mg PO BID #60 tab Continue Omeprazole [PriLOSEC] 20 mg PO BID Insulin Glargine,Hum.rec.anlog [Basaglar Kwikpen U-100] 30 unit SQ BID Atorvastatin [Lipitor] 20 mg PO HS Gabapentin [Neurontin] 300 mg PO TID INSULIN LISPRO (HumaLOG) [humaLOG] 10 unit SQ AC-TID lisinopriL [Zestril] 10 mg PO DAILY #30 tab Tamsulosin [Flomax] 0.8 mg PO DAILY Methocarbamol [Robaxin-750] 750 mg PO TID Albuterol Sulfate [Proair Hfa] 2 puff INHALATION RT-QID PRN PRN Reason: Shortness Of Breath Metoprolol Succinate (ER) [Toprol XL] 50 mg PO DAILY 30 Days #30 tab.er.24h oxyCODONE-APAP 10-325MG [Percocet 10-325 mg] 1 tab PO QID Discharge Medication List Omeprazole [PriLOSEC] 20 mg PO BID 12/11/17 [History] Atorvastatin [Lipitor] 20 mg PO HS 08/26/19 [History] Insulin Glargine,Hum.rec.anlog [Basaglar Kwikpen U-100] 30 unit SQ BID 08/26/19 [History] Gabapentin [Neurontin] 300 mg PO TID 10/12/19 [History] INSULIN LISPRO (HumaLOG) [humaLOG] 10 unit SQ AC-TID 02/16/20 [History] lisinopriL [Zestril] 10 mg PO DAILY #30 tab 02/17/20 [Rx] Tamsulosin [Flomax] 0.8 mg PO DAILY 04/08/20 [History] Albuterol Sulfate [Proair Hfa] 2 puff INHALATION RT-QID PRN 10/26/20 [History] Methocarbamol [Robaxin-750] 750 mg PO TID 10/26/20 [History] oxyCODONE-APAP 10-325MG [Percocet 10-325 mg] 1 tab PO QID 10/26/20 [History] Metoprolol Succinate (ER) [Toprol XL] 50 mg PO DAILY 30 Days #30 tab.er.24h 10/28/20 [Rx] Isosorbide Mononitrate ER [Imdur] 30 mg PO DAILY #30 tab.er.24h 11/01/20 [Rx] Metoprolol Tartrate [Lopressor] 75 mg PO BID #60 tab 11/01/20 [Rx] Nitroglycerin Sl Tabs [Nitrostat] 0.4 mg SUBLINGUAL Q5M PRN #20 tab 11/01/20 [Rx] Follow up Appointment(s)/Referral(s): Trav Muniz MD [Primary Care Provider] - 1-2 days Patient Instructions/Handouts: Chest Pain (DC) Discharge Disposition: HOME SELF-CARE
== END 2020-11-01 17:30 | disposition home or self-care (01) ==
LOC: EC 03:58 → 6NMEDSUR 06:23
PROVIDERS: ADMIT Hospitalist; ATTEND Hospitalist
DX: R07.89 Other chest pain (principal); E87.1 Hypo-osmolality and hyponatremia; I10 Essential (primary) hypertension; E11.65 Type 2 diabetes mellitus with hyperglycemia; R00.0 Tachycardia, unspecified; E78.5 Hyperlipidemia, unspecified; I25.10 Atherosclerotic heart disease of native coronary artery without angina pectoris; I34.1 Nonrheumatic mitral (valve) prolapse; J44.9 Chronic obstructive pulmonary disease, unspecified; K21.9 Gastro-esophageal reflux disease without esophagitis; G47.33 Obstructive sleep apnea (adult) (pediatric); Z99.89 Dependence on other enabling machines and devices; G89.29 Other chronic pain; M51.26 Other intervertebral disc displacement, lumbar region; E66.01 Morbid (severe) obesity due to excess calories; Z68.41 Body mass index [BMI] 40.0-44.9, adult; N28.1 Cyst of kidney, acquired; Z20.822 Contact with and (suspected) exposure to COVID-19; Z79.4 Long term (current) use of insulin; Z79.891 Long term (current) use of opiate analgesic; Z79.899 Other long term (current) drug therapy; Z88.1 Allergy status to other antibiotic agents; Z88.5 Allergy status to narcotic agent; Z88.8 Allergy status to other drugs, medicaments and biological substances; I25.2 Old myocardial infarction; Z86.14 Personal history of Methicillin resistant Staphylococcus aureus infection; Z90.49 Acquired absence of other specified parts of digestive tract; Z98.890 Other specified postprocedural states; Z86.711 Personal history of pulmonary embolism; Z98.1 Arthrodesis status; Z87.440 Personal history of urinary (tract) infections; Z87.442 Personal history of urinary calculi; Z87.11 Personal history of peptic ulcer disease; Z87.81 Personal history of (healed) traumatic fracture; Z80.9 Family history of malignant neoplasm, unspecified; Z82.61 Family history of arthritis; Z83.6 Family history of other diseases of the respiratory system; Z82.49 Family history of ischemic heart disease and other diseases of the circulatory system; Z83.49 Family history of other endocrine, nutritional and metabolic diseases
CPT/HCPCS: 96376 ×2; 96361 ×3; 93005 ×2; 96374; 99285; 36415; 94760; 80061; 80053; 83735; 84484; 85025; 85610; 85730; 87635; 71046; G0378 ×2; J1170

== ENCOUNTER 2020-11-13 09:24 | Observation (INO) | payer OTHER ==
[2020-11-13] MEDS ORDERED: NITROGLYCERIN OINT 1 INCH/GM PACKET TOPICAL STA (09:32)
[2020-11-13] MEDS ORDERED: ASPIRIN 81 MG PO STA (09:32)
[2020-11-13] MEDS ORDERED: LORazepam 2 MG/ML INJ IV STA (09:35)
--- NOTE | 2020-11-13 09:35 | ED ---
General Adult HPI - General Stated complaint: Chest Pain Time Seen by Provider: 11/13/20 09:25 Source: RN notes reviewed, old records reviewed - History of Present Illness Initial comments: This a 55-year-old male who has a past medical history significant for diabetes hypertension high cholesterol. Patient comes in complaining chest pain radiating to his left jaw and left arm. Patient states it started last night about 10:00. Patient also states he recently had a catheterization they told is clear. Patient is being treated for tachycardia he states he has heard the term atrial fibrillation but he doesn't know if he's been diagnosed with. Patient states he had his beta ousmane recently increased but he still tachycardic. Patient states she is mildly short of breath as well. Patient denies any recent fever chills or cough per patient denies abdominal pain patient denies nausea vomiting or diarrhea. Patient denies any calf tenderness or leg swelling - Related Data Home Medications Medication Instructions Recorded Confirmed Omeprazole [PriLOSEC] 20 mg PO BID 12/11/17 11/13/20 Insulin Glargine,Hum.rec.anlog 30 unit SQ BID 08/26/19 11/13/20 [Basaglar Kwikpen U-100] Gabapentin [Neurontin] 300 mg PO TID 10/12/19 11/13/20 INSULIN LISPRO (HumaLOG) [humaLOG] 10 unit SQ AC-TID 02/16/20 11/13/20 Tamsulosin [Flomax] 0.8 mg PO DAILY 04/08/20 11/13/20 Albuterol Sulfate [Proair Hfa] 2 puff INHALATION RT-QID PRN 10/26/20 11/13/20 Methocarbamol [Robaxin-750] 750 mg PO TID 10/26/20 11/13/20 oxyCODONE-APAP 10-325MG [Percocet 1 tab PO QID 10/26/20 11/13/20 10-325 mg] Atorvastatin [Lipitor] 40 mg PO HS 11/13/20 11/13/20 Previous Rx's Medication Instructions Recorded lisinopriL [Zestril] 10 mg PO DAILY #30 tab 02/17/20 Isosorbide Mononitrate ER [Imdur] 30 mg PO DAILY #30 tab.er.24h 11/01/20 Metoprolol Tartrate [Lopressor] 75 mg PO BID #60 tab 11/01/20 Nitroglycerin Sl Tabs [Nitrostat] 0.4 mg SUBLINGUAL Q5M PRN #20 tab 11/01/20 Allergies Allergy/AdvReac Type Severity Reaction Status Date / Time doxycycline Allergy Swelling Verified 11/13/20 10:16 ketorolac tromethamine Allergy Rash/Hives Verified 11/13/20 10:16 [From Toradol] morphine Allergy Rash/Hives Verified 11/13/20 10:16 metoclopramide HCl AdvReac Dystonic Verified 11/13/20 10:16 [From Reglan] Reaction prochlorperazine edisylate AdvReac Dystonic Verified 11/13/20 10:16 [From Compazine] Reaction prochlorperazine maleate AdvReac Dystonic Verified 11/13/20 10:16 [From Compazine] Reaction tramadol AdvReac Nausea & Verified 11/13/20 10:16 Vomiting Review of Systems ROS Statement: Those systems with pertinent positive or pertinent negative responses have been documented in the HPI. ROS Other: All systems not noted in ROS Statement are negative. Past Medical History Past Medical History: Asthma, Chest Pain / Angina, Diabetes Mellitus, GERD/Reflux, Hyperlipidemia, Hypertension, Myocardial Infarction ([place]), Mitral Valve Prolapse (MVP), Pulmonary Embolus (PE), Sleep Apnea/CPAP/BIPAP Additional Past Medical History / Comment(s): Obesity, chronic asthmatic bronchitis, previous history of pulmonary embolism, objective sleep apnea, diabetes mellitus, hypertension, hyperlipidemia, previous history of myocardial infarction with underlying coronary artery disease, renal cysts, chronic back pain secondary to herniated lumbar disc disease with symptoms of sciatica, history of right lower extremity fracture at the age of 13, history of C. diff colitis approximately 4 years ago, history of bleeding peptic ulcer, nephrolithiasis, previous history of UTI and secondary sepsis. Last Myocardial Infarction Date:: 2011 History of Any Multi-Drug Resistant Organisms: MRSA Date of last positivie culture/infection: 2016 MDRO Source:: left axilla Past Surgical History: Appendectomy, Back Surgery, Cholecystectomy, Heart Catheterization, Hernia Repair Additional Past Surgical History / Comment(s): 2007 back surgery with decompression fusion at [facility], 2011, 2016 cardiac cath, multiple ESWL/ureteral stents/ double J catheters, L inquinal hernia repair, PICC line for ABX for urosepsis-since removed., spinal stimulator and lumbar laminectomy 12/27. Colectomy February 2020 Past Anesthesia/Blood Transfusion Reactions: No Reported Reaction Past Psychological History: No Psychological Hx Reported Smoking Status: Never smoker Past Alcohol Use History: None Reported Past Drug Use History: None Reported - Past Family History Father Family Medical History: Chest Pain / Angina Additional Family Medical History / Comment(s): "lung problems" Mother Family Medical History: Cancer, Chest Pain / Angina, Congestive Heart Failure (CHF), Osteoarthritis (OA), Thyroid Disorder Additional Family Medical History / Comment(s): "female cancer" General Exam - General Exam Comments Initial Comments: GENERAL: Patient is well-developed and well-nourished. Patient is nontoxic and well- hydrated and is in mild distress. ENT: Neck is soft and supple. No significant lymphadenopathy is noted. Oropharynx is clear. Moist mucous membranes. Neck has full range of motion without eliciting any pain. EYES: The sclera were anicteric and conjunctiva were pink and moist. Extraocular movements were intact and pupils were equal round and reactive to light. Ey elids were unremarkable. PULMONARY: Unlabored respirations. Good breath sounds bilaterally. No audible rales rhonchi or wheezing was noted. CARDIOVASCULAR: There is a regular rate and rhythm without any murmurs gallops or rubs. ABDOMEN: Soft and nontender with normal bowel sounds. SKIN: Skin is clear with no lesions or rashes and otherwise unremarkable. NEUROLOGIC: Patient is alert and oriented x3. Cranial nerves II through XII are grossly intact. Motor and sensory are also intact. Normal speech, volume and content. Symmetrical smile. MUSCULOSKELETAL: Normal extremities with adequate strength and full range of motion. No lower extremity swelling or edema. No calf tenderness. LYMPHATICS: No significant lymphadenopathy is noted PSYCHIATRIC: Normal psychiatric evaluation. Course Vital Signs 11/13/20 11/13/20 09:44 11:16 Temperature 98.5 F Pulse Rate 113 H 121 H Respiratory 24 18 Rate Blood Pressure 126/83 140/91 O2 Sat by Pulse 98 97 Oximetry Medical Decision Making - Medical Decision Making EKG shows sinus tachycardia at 106 bpm ME interval 248 QRSs 102 QT interval 336 QTC is 446. Patient's EKG shows no ST segment elevation or depression. Chest x-ray shows no acute abnormality. Patient is constantly asking for Dilaudid. I spoke with because he agreed to admit the patient admitted the patient I consult cardiology. - Lab Data Result diagrams: 11/13/20 09:46 11/13/20 09:46 Lab Results 11/13/20 11/13/20 11/13/20 Range/Units 09:30 09:36 09:46 WBC 5.0 (3.8-10.6) k/uL RBC 4.62 (4.30-5.90) m/uL Hgb 13.3 (13.0-17.5) gm/dL Hct 38.0 L (39.0-53.0) % MCV 82.4 (80.0-100.0) fL MCH 28.8 (25.0-35.0) pg MCHC 35.0 (31.0-37.0) g/dL RDW 14.5 (11.5-15.5) % Plt Count 283 (150-450) k/uL MPV 6.9 Neutrophils % 69 % Lymphocytes % 19 % Monocytes % 6 % Eosinophils % 3 % Basophils % 0 % Neutrophils # 3.5 (1.3-7.7) k/uL Lymphocytes # 1.0 (1.0-4.8) k/uL Monocytes # 0.3 (0-1.0) k/uL Eosinophils # 0.2 (0-0.7) k/uL Basophils # 0.0 (0-0.2) k/uL PT 9.8 (9.0-12.0) sec INR 0.9 (<1.2) APTT 20.2 L (22.0-30.0) sec D-Dimer 0.48 (<0.60) mg/L FEU Sodium (137-145) mmol/L Potassium (3.5-5.1) mmol/L Chloride (98-107) mmol/L Carbon Dioxide (22-30) mmol/L Anion Gap mmol/L BUN (9-20) mg/dL Creatinine (0.66-1.25) mg/dL Est GFR (CKD-EPI)AfAm (>60 ml/min/1.73 sqM) Est GFR (CKD-EPI)NonAf (>60 ml/min/1.73 sqM) Glucose (74-99) mg/dL POC Glucose (mg/dL) 282 H (75-99) mg/dL POC Glu Software Applications Specialist ID Lacie Ravi Calcium (8.4-10.2) mg/dL Magnesium (1.6-2.3) mg/dL Total Bilirubin (0.2-1.3) mg/dL AST (17-59) U/L ALT (4-49) U/L Alkaline Phosphatase (38-126) U/L Troponin I (0.000-0.034) ng/mL NT-Pro-B Natriuret Pep pg/mL Total Protein (6.3-8.2) g/dL Albumin (3.5-5.0) g/dL Urine Opiates Screen (NotDetected) Ur Oxycodone Screen (NotDetected) Urine Methadone Screen (NotDetected) Ur Propoxyphene Screen (NotDetected) Ur Barbiturates Screen (NotDetected) U Tricyclic Antidepress (NotDetected) Ur Phencyclidine Scrn (NotDetected) Ur Amphetamines Screen (NotDetected) U Methamphetamines Scrn (NotDetected) U Benzodiazepines Scrn (NotDetected) Urine Cocaine Screen (NotDetected) U Marijuana (THC) Screen (NotDetected) 11/13/20 11/13/20 11/13/20 Range/Units 09:46 09:46 09:46 WBC (3.8-10.6) k/uL RBC (4.30-5.90) m/uL Hgb (13.0-17.5) gm/dL Hct (39.0-53.0) % MCV (80.0-100.0) fL MCH (25.0-35.0) pg MCHC (31.0-37.0) g/dL RDW (11.5-15.5) % Plt Count (150-450) k/uL MPV Neutrophils % % Lymphocytes % % Monocytes % % Eosinophils % % Basophils % % Neutrophils # (1.3-7.7) k/uL Lymphocytes # (1.0-4.8) k/uL Monocytes # (0-1.0) k/uL Eosinophils # (0-0.7) k/uL Basophils # (0-0.2) k/uL PT (9.0-12.0) sec INR (<1.2) APTT (22.0-30.0) sec D-Dimer (<0.60) mg/L FEU Sodium 134 L (137-145) mmol/L Potassium 4.5 (3.5-5.1) mmol/L Chloride 103 (98-107) mmol/L Carbon Dioxide 20 L (22-30) mmol/L Anion Gap 11 mmol/L BUN 13 (9-20) mg/dL Creatinine 0.57 L (0.66-1.25) mg/dL Est GFR (CKD-EPI)AfAm >90 (>60 ml/min/1.73 sqM) Est GFR (CKD-EPI)NonAf >90 (>60 ml/min/1.73 sqM) Glucose 294 H (74-99) mg/dL POC Glucose (mg/dL) (75-99) mg/dL POC Glu Software Applications Specialist ID Calcium 9.6 (8.4-10.2) mg/dL Magnesium 1.8 (1.6-2.3) mg/dL Total Bilirubin 0.5 (0.2-1.3) mg/dL AST 25 (17-59) U/L ALT 39 (4-49) U/L Alkaline Phosphatase 139 H (38-126) U/L Troponin I <0.012 (0.000-0.034) ng/mL NT-Pro-B Natriuret Pep 26 pg/mL Total Protein 7.2 (6.3-8.2) g/dL Albumin 4.4 (3.5-5.0) g/dL Urine Opiates Screen (NotDetected) Ur Oxycodone Screen (NotDetected) Urine Methadone Screen (NotDetected) Ur Propoxyphene Screen (NotDetected) Ur Barbiturates Screen (NotDetected) U Tricyclic Antidepress (NotDetected) Ur Phencyclidine Scrn (NotDetected) Ur Amphetamines Screen (NotDetected) U Methamphetamines Scrn (NotDetected) U Benzodiazepines Scrn (NotDetected) Urine Cocaine Screen (NotDetected) U Marijuana (THC) Screen (NotDetected) 11/13/20 Range/Units 11:35 WBC (3.8-10.6) k/uL RBC (4.30-5.90) m/uL Hgb (13.0-17.5) gm/dL Hct (39.0-53.0) % MCV (80.0-100.0) fL MCH (25.0-35.0) pg MCHC (31.0-37.0) g/dL RDW (11.5-15.5) % Plt Count (150-450) k/uL MPV Neutrophils % % Lymphocytes % % Monocytes % % Eosinophils % % Basophils % % Neutrophils # (1.3-7.7) k/uL Lymphocytes # (1.0-4.8) k/uL Monocytes # (0-1.0) k/uL Eosinophils # (0-0.7) k/uL Basophils # (0-0.2) k/uL PT (9.0-12.0) sec INR (<1.2) APTT (22.0-30.0) sec D-Dimer (<0.60) mg/L FEU Sodium (137-145) mmol/L Potassium (3.5-5.1) mmol/L Chloride (98-107) mmol/L Carbon Dioxide (22-30) mmol/L Anion Gap mmol/L BUN (9-20) mg/dL Creatinine (0.66-1.25) mg/dL Est GFR (CKD-EPI)AfAm (>60 ml/min/1.73 sqM) Est GFR (CKD-EPI)NonAf (>60 ml/min/1.73 sqM) Glucose (74-99) mg/dL POC Glucose (mg/dL) (75-99) mg/dL POC Glu Software Applications Specialist ID Calcium (8.4-10.2) mg/dL Magnesium (1.6-2.3) mg/dL Total Bilirubin (0.2-1.3) mg/dL AST (17-59) U/L ALT (4-49) U/L Alkaline Phosphatase (38-126) U/L Troponin I (0.000-0.034) ng/mL NT-Pro-B Natriuret Pep pg/mL Total Protein (6.3-8.2) g/dL Albumin (3.5-5.0) g/dL Urine Opiates Screen Not Detected (NotDetected) Ur Oxycodone Screen Detected H (NotDetected) Urine Methadone Screen Not Detected (NotDetected) Ur Propoxyphene Screen Not Detected (NotDetected) Ur Barbiturates Screen Not Detected (NotDetected) U Tricyclic Antidepress Not Detected (NotDetected) Ur Phencyclidine Scrn Not Detected (NotDetected) Ur Amphetamines Screen Not Detected (NotDetected) U Methamphetamines Scrn Not Detected (NotDetected) U Benzodiazepines Scrn Detected H (NotDetected) Urine Cocaine Screen Not Detected (NotDetected) U Marijuana (THC) Screen Not Detected (NotDetected) Disposition Clinical Impression: Chest pain, Tachycardia Disposition: ADMITTED IP TO THIS HOSP Referrals: Trav Muniz MD [Primary Care Provider] - 1-2 days Time of Disposition: 12:35
[2020-11-13 09:39] LABS: Glucose,Whole Blood 282 mg/dL (75-99)
[2020-11-13 10:07] LABS: Basophils % (A) 0 %; Eosinophils # (A) 0.2 k/uL (0-0.7); Eosinophils % (A) 3 %; HGB 13.3 gm/dL (13.0-17.5); Lymphocytes % (A) 19 %; MCH 28.8 pg (25.0-35.0); MCV 82.4 fL (80.0-100.0); Mean Platelet Volume 6.9; Monocytes # (A) 0.3 k/uL (0-1.0); Monocytes % (A) 6 %; Neutrophils # (A) 3.5 k/uL (1.3-7.7); Neutrophils % (A) 69 %; Platelet Count 283 k/uL (150-450); RBC 4.62 m/uL (4.30-5.90); RDW 14.5 % (11.5-15.5)
[2020-11-13 10:13] LABS: ALT 39 U/L (4-49); AST 25 U/L (17-59); African American GFR (CKD) >90 (>60 ml/min/1.73 sqM); Albumin 4.4 g/dL (3.5-5.0); Alkaline Phosphatase 139 U/L (38-126); Anion Gap 11 mmol/L; Blood Urea Nitrogen 13 mg/dL (9-20); Calcium 9.6 mg/dL (8.4-10.2); Carbon Dioxide 20 mmol/L (22-30); Chloride 103 mmol/L (98-107); Glucose 294 mg/dL (74-99); Magnesium 1.8 mg/dL (1.6-2.3); Non-African American GFR(CKD) >90 (>60 ml/min/1.73 sqM); Potassium 4.5 mmol/L (3.5-5.1); Sodium 134 mmol/L (137-145); Total Bilirubin 0.5 mg/dL (0.2-1.3); Total Protein 7.2 g/dL (6.3-8.2)
--- NOTE | 2020-11-13 10:20 | XR ---
EXAMINATION TYPE: XR chest 2V DATE OF EXAM: 11/13/2020 COMPARISON: Chest x-ray October 31, 2020 HISTORY: Chest pain. TECHNIQUE: Frontal and lateral views of the chest are obtained. FINDINGS: There is chronic parenchymal changes bilaterally without suspicious focal air space opacit y, pleural effusion, or pneumothorax seen. The cardiac silhouette size is mildly enlarged with ather osclerotic aorta. Spinal stimulator device lower thoracic spinal canal redemonstrated. IMPRESSION: Mild cardiomegaly and chronic parenchymal changes without acute pulmonary process.
[2020-11-13 10:55] LABS: D-Dimer 0.48 mg/L FEU (<0.60); INR 0.9 (<1.2); Prothrombin Time 9.8 sec (9.0-12.0)
[2020-11-13 11:05] LABS: Partial Thromboplastin Time 20.2 sec (22.0-30.0)
[2020-11-13 11:58] LABS: Amphetamine Screen,Urine Not Detected (NotDetected); Barbiturate Screen,Urine Not Detected (NotDetected); Benzodiazepines Screen,Urine Detected (NotDetected); Cocaine Screen,Urine Not Detected (NotDetected); Methadone Screen, Urine Not Detected (NotDetected); Opiate Screen,Urine Not Detected (NotDetected); Oxycodone Screen, Urine Detected (NotDetected); Phencyclidine Screen,Urine Not Detected (NotDetected); Tricyclic Antidepressant,Urine Not Detected (NotDetected); Urn Cannabinoid Scrn Not Detected (NotDetected)
[2020-11-13] MEDS ORDERED: NITROGLYCERIN SL TABS 0.4 MG TAB SUBLINGUAL PRN (12:35)
[2020-11-13] MEDS ORDERED: oxyCODONE-APAP 10-325MG 1 EACH TAB PO PRN (13:56)
[2020-11-13] MEDS: METOPROLOL TARTRATE 25 MG TAB PO SCH ×2 (14:04→21:02)
--- NOTE | 2020-11-13 16:49 | P.HPIM ---
History of Present Illness 51-year-old male came in with compensative chest pain patient gives me typical symptoms of chest pain with on the left side of the chest radiating to the left arm tingling numbness along with the shortness of breath. Patient had a cardiac catheterization about a week ago which he did not show any significant episodic occlusive disease patient apparently had clean coronaries at that time. Patient was subsequently discharged patient does have history of atrial fibrillation patient does have risk factors including diabetes with us hypertension hyperlipidemia. Patient repeatedly keeps asking for Dilaudid. Patient has back issues for which patient is on Percocet. Does have history of obstructive sleep apnea. Patient is morbidly obese. Patient does have history of mitral valve prolapse in the past history of pulmonary embolism presently not on any anticoagulation. Review of Systems REVIEW OF SYSTEMS: CONSTITUTIONAL: No fever, no malaise, no fatigue. HEENT: No recent visual problems or hearing problems. Denied any sore throat. CARDIOVASCULAR: No orthopnea, PND, no palpitations, no syncope. PULMONARY: No shortness of breath, no cough, no hemoptysis. GASTROINTESTINAL: No diarrhea, no nausea, no vomiting, no abdominal pain. NEUROLOGICAL: No headaches, no weakness, no numbness. HEMATOLOGICAL: Denies any bleeding or petechiae. GENITOURINARY: Denies any burning micturition, frequency, or urgency. MUSCULOSKELETAL/RHEUMATOLOGICAL: Denies any joint pain, swelling, or any muscle pain. ENDOCRINE: Denies any polyuria or polydipsia. The rest of the 14-point review of systems is negative. Past Medical History Past Medical History: Asthma, Coronary Artery Disease (CAD), Chest Pain / Angina, Diabetes Mellitus, GERD/Reflux, GI Bleed, Hyperlipidemia, Hypertension, Myocardial Infarction (NM), Mitral Valve Prolapse (MVP), Pulmonary Embolus (PE), Sleep Apnea/CPAP/BIPAP Additional Past Medical History / Comment(s): Asthmatic bronchitis-chronic, IDDM type II, neuropathy bilateral feet, lower and upper GI bleeds, PUD, diverticulitis, colectomy d/t benign mass/intusseption, BPH, renal cysts, nephrolithiais, UTI with sepsis, chronic back pain 2ndary to herniated lumbar discs/sciatica, JARED does not use his Cpap, MVP, murmur Last Myocardial Infarction Date:: 2011 History of Any Multi-Drug Resistant Organisms: MRSA Date of last positivie culture/infection: 2015 MDRO Source:: left axilla Past Surgical History: Appendectomy, Back Surgery, Cholecystectomy, Heart Catheterization, Hernia Repair Additional Past Surgical History / Comment(s): Lumbar decompression/ fusion/laminectomy, spinal stimulator, T lift procedure, L inguinal hernia repair, multiple ESWLs/stents/double J caths, colonoscopy, 02/2020 colectomy, EGDs for food obstructions and dilations Past Anesthesia/Blood Transfusion Reactions: No Reported Reaction Smoking Status: Never smoker - Past Family History Father Family Medical History: Chest Pain / Angina Additional Family Medical History / Comment(s): "lung problems" Mother Family Medical History: Cancer, Chest Pain / Angina, Congestive Heart Failure (CHF), Osteoarthritis (OA), Thyroid Disorder Additional Family Medical History / Comment(s): "female cancer" Medications and Allergies Home Medications Medication Instructions Recorded Confirmed Type Omeprazole [PriLOSEC] 20 mg PO BID 12/11/17 11/13/20 History Insulin Glargine,Hum.rec.anlog 30 unit SQ BID 08/26/19 11/13/20 History [Basaglar Kwikpen U-100] Gabapentin [Neurontin] 300 mg PO TID 10/12/19 11/13/20 History INSULIN LISPRO (HumaLOG) [humaLOG] 10 unit SQ AC-TID 02/16/20 11/13/20 History lisinopriL [Zestril] 10 mg PO DAILY #30 tab 02/17/20 11/13/20 Rx Tamsulosin [Flomax] 0.8 mg PO DAILY 04/08/20 11/13/20 History Albuterol Sulfate [Proair Hfa] 2 puff INHALATION RT-QID PRN 10/26/20 11/13/20 History Methocarbamol [Robaxin-750] 750 mg PO TID 10/26/20 11/13/20 History oxyCODONE-APAP 10-325MG [Percocet 1 tab PO QID 10/26/20 11/13/20 History 10-325 mg] Isosorbide Mononitrate ER [Imdur] 30 mg PO DAILY #30 tab.er.24h 11/01/20 11/13/20 Rx Metoprolol Tartrate [Lopressor] 75 mg PO BID #60 tab 11/01/20 11/13/20 Rx Nitroglycerin Sl Tabs [Nitrostat] 0.4 mg SUBLINGUAL Q5M PRN #20 tab 11/01/20 11/13/20 Rx Atorvastatin [Lipitor] 40 mg PO HS 11/13/20 11/13/20 History Allergies Allergy/AdvReac Type Severity Reaction Status Date / Time doxycycline Allergy Swelling Verified 11/13/20 10:16 ketorolac tromethamine Allergy Rash/Hives Verified 11/13/20 10:16 [From Toradol] morphine Allergy Rash/Hives Verified 11/13/20 10:16 metoclopramide HCl AdvReac Dystonic Verified 11/13/20 10:16 [From Reglan] Reaction prochlorperazine edisylate AdvReac Dystonic Verified 11/13/20 10:16 [From Compazine] Reaction prochlorperazine maleate AdvReac Dystonic Verified 11/13/20 10:16 [From Compazine] Reaction tramadol AdvReac Nausea & Verified 11/13/20 10:16 Vomiting Physical Exam Vitals: Vital Signs Temp Pulse Pulse Resp BP BP Pulse Ox 11/13/20 16:33 98.2 F 101 H 19 153/86 94 L 11/13/20 16:29 18 11/13/20 16:06 98.2 F 97 18 133/88 99 11/13/20 13:00 120 H 19 120/91 98 11/13/20 11:16 121 H 18 140/91 97 11/13/20 09:44 98.5 F 113 H 24 126/83 98 Intake and Output 11/13/20 11/13/20 11/13/20 06:59 14:59 22:59 Other: Weight 131.088 kg 131.088 kg PHYSICAL EXAMINATION: GENERAL: The patient is alert and oriented x3, not in any acute distress. obese HEENT: Pupils are round and equally reacting to light. EOMI. No scleral icterus. No conjunctival pallor. Normocephalic, atraumatic. No pharyngeal erythema. No thyromegaly. CARDIOVASCULAR: S1 and S2 present. No murmurs, rubs, or gallops. PULMONARY: Chest is clear to auscultation, no wheezing or crackles. ABDOMEN: Soft, nontender, nondistended, normoactive bowel sounds. No palpable organomegaly. MUSCULOSKELETAL: No joint swelling or deformity. EXTREMITIES: No cyanosis, clubbing, or pedal edema. NEUROLOGICAL: Gross neurological examination did not reveal any focal deficits. SKIN: No rashes. Results CBC & Chem 7: 11/13/20 09:46 11/13/20 09:46 Labs: Abnormal Lab Results - Last 24 Hours (Table) 11/13/20 11/13/20 11/13/20 Range/Units 09:30 09:36 09:46 Hct 38.0 L (39.0-53.0) % APTT 20.2 L (22.0-30.0) sec Sodium (137-145) mmol/L Carbon Dioxide (22-30) mmol/L Creatinine (0.66-1.25) mg/dL Glucose (74-99) mg/dL POC Glucose (mg/dL) 282 H (75-99) mg/dL Alkaline Phosphatase (38-126) U/L Ur Oxycodone Screen (NotDetected) U Benzodiazepines Scrn (NotDetected) 11/13/20 11/13/20 Range/Units 09:46 11:35 Hct (39.0-53.0) % APTT (22.0-30.0) sec Sodium 134 L (137-145) mmol/L Carbon Dioxide 20 L (22-30) mmol/L Creatinine 0.57 L (0.66-1.25) mg/dL Glucose 294 H (74-99) mg/dL POC Glucose (mg/dL) (75-99) mg/dL Alkaline Phosphatase 139 H (38-126) U/L Ur Oxycodone Screen Detected H (NotDetected) U Benzodiazepines Scrn Detected H (NotDetected) Thrombosis Risk Factor Assmnt - Choose All That Apply Any of the Below Risk Factors Present?: Yes Each Factor Represents 1 point: Age 41-60 years, Obesity (BMI >25) Other Risk Factors: Yes Each Risk Factor Represents 3 Points: History of DVT/PE Other congenital or acquired thrombophilia - If yes, enter type in comment: No Thrombosis Risk Factor Assessment Total Risk Factor Score: 5 Thrombosis Risk Factor Assessment Level: High Risk Assessment and Plan Plan: chest pain: Patient does have typical features of chest pain although patient had a recent cardiac catheterization which did not show any symptoms and abn ormalities were do not believe his chest pain is cardiac in origin but patient will be monitored and will be evaluated by cardiology. -Chronic back pain for which patient will be resumed on his home medications avoid any intravenous opiates. -Hypertension -History of sinus tachycardia for which patient is on metoprolol which will be continued -Obesity -Obstructive sleep apnea -Hyperlipidemia -Type 2 diabetes mellitus
[2020-11-13 17:15] LABS: Glucose,Whole Blood 368 mg/dL (75-99)
[2020-11-13] MEDS: INSULIN ASPART (NovoLOG) 100 UNIT/ML VIAL SQ SCH (17:20)
[2020-11-13] MEDS ORDERED: NITROGLYCERIN OINT 1 INCH/GM PACKET TOPICAL SCH (18:00)
[2020-11-13 20:26] LABS: Glucose,Whole Blood 199 mg/dL (75-99)
[2020-11-13] MEDS: ATORVASTATIN 40 MG TAB PO SCH (20:52)
[2020-11-13] MEDS: GABAPENTIN 300 MG CAP PO SCH (20:52)
[2020-11-13] MEDS: oxyCODONE-APAP 10-325MG 1 EACH TAB PO PRN (20:52)
[2020-11-13] MEDS: methocarbamoL 750 MG TAB PO SCH (20:53)
[2020-11-13] MEDS: INSULIN DETEMIR (LEVEMIR) 100 UNIT/ML SYR SQ SCH (20:54)
[2020-11-14] MEDS: oxyCODONE-APAP 10-325MG 1 EACH TAB PO PRN ×4 (02:57→20:23)
[2020-11-14 06:45] LABS: Cholesterol 209 mg/dL (<200); HDL Cholesterol 40 mg/dL (40-60); LDL Cholesterol,Calculated 118 mg/dL (0-99); Triglycerides 257 mg/dL (<150)
[2020-11-14 07:36] LABS: Glucose,Whole Blood 216 mg/dL (75-99)
[2020-11-14] MEDS: NITROGLYCERIN SL TABS 0.4 MG TAB SUBLINGUAL PRN ×2 (08:12→08:35)
[2020-11-14] MEDS: PANTOPRAZOLE 40 MG TABLET PO SCH (08:13)
[2020-11-14] MEDS: INSULIN DETEMIR (LEVEMIR) 100 UNIT/ML SYR SQ SCH ×2 (08:14→20:31)
[2020-11-14] MEDS: METOPROLOL TARTRATE 25 MG TAB PO SCH ×2 (08:57→20:23)
[2020-11-14] MEDS: GABAPENTIN 300 MG CAP PO SCH ×3 (08:58→20:23)
[2020-11-14] MEDS: ASPIRIN 325 MG TAB PO SCH (08:58)
[2020-11-14] MEDS: lisinopriL 10 MG TAB PO SCH (08:58)
[2020-11-14] MEDS: ISOSORBIDE MONONITRATE ER 30 MG TAB.ER.24H PO SCH (08:58)
[2020-11-14] MEDS: methocarbamoL 750 MG TAB PO SCH ×3 (08:58→20:32)
[2020-11-14] MEDS: TAMSULOSIN 0.4 MG CAP.ER.24H PO SCH (08:58)
[2020-11-14 11:15] LABS: Glucose,Whole Blood 207 mg/dL (75-99)
[2020-11-14] MEDS: INSULIN ASPART (NovoLOG) 100 UNIT/ML VIAL SQ SCH ×4 (11:56→20:31)
--- NOTE | 2020-11-14 12:14 | P.DS ---
Providers Date of admission: 11/13/20 12:40 Attending physician: Víctor Cook Consults: 11/13/20 12:35 Consult Physician Urgent Consulting Provider: [facility] Consult Reason/Comments: Chest chest pain, tachycardia Do you want consulting provider notified?: Yes [facility] care [facility] Course: 51-year-old male came in with compensative chest pain patient gives me typical symptoms of chest pain with on the left side of the chest radiating to the left arm tingling numbness along with the shortness of breath. Patient had a cardiac catheterization about a week ago which he did not show any significant episodic occlusive disease patient apparently had clean coronaries at that time. Patient was subsequently discharged patient does have history of atrial fibrillation patient does have risk factors including diabetes with us hypertension hyperlipidemia. Patient repeatedly keeps asking for Dilaudid. Patient has back issues for which patient is on Percocet. Does have history of obstructive sleep apnea. Patient is morbidly obese. Patient does have history of mitral valve prolapse in the past history of pulmonary embolism presently not on any anticoagulation. 11/14/2020 Patient is still complaining of chest pain cardiology will evaluate the patient. Patient had a recent radical catheterization all the workup is negative, if cleared by cardiology patient will be discharged today. Avoid any opiates except the medications he takes at home. Constitutional: Denied any fatigue denied any fever. Cardio vascular: As mentioned in the interval history Gastrointestinal denied any nausea vomiting Pulmonary: Denied any shortness of breath cough Neurologic denied any new focal deficits All inpatient medications were reviewed and appropriate changes in these medications as dictated in the interval history and assessment and plan. PHYSICAL EXAMINATION: GENERAL: The patient is alert and oriented x3, not in any acute distress. obese HEENT: Pupils are round and equally reacting to light. EOMI. No scleral icterus. No conjunctival pallor. Normocephalic, atraumatic. No pharyngeal erythema. No thyromegaly. CARDIOVASCULAR: S1 and S2 present. No murmurs, rubs, or gallops. PULMONARY: Expiratory wheezing on exam ABDOMEN: Soft, nontender, nondistended, normoactive bowel sounds. No palpable organomegaly. MUSCULOSKELETAL: No joint swelling or deformity. EXTREMITIES: No cyanosis, clubbing, or pedal edema. NEUROLOGICAL: Gross neurological examination did not reveal any focal deficits. SKIN: No rashes. Assessment and Plan Plan: chest pain: Patient does have typical features of chest pain although patient had a recent cardiac catheterization which did not show any symptoms and abnormalities were do not believe his chest pain is cardiac in origin but patient will be monitored and will be evaluated by cardiology. If cleared by cardiology patient will be discharged today. -Chronic back pain for which patient will be resumed on his home medications avoid any intravenous opiates. -Hypertension -History of sinus tachycardia for which patient is on metoprolol which will be continued -Obesity -Obstructive sleep apnea. Patient has wheezing on exam patient will be started on inhaled steroids patient probably has obesity hypoventilation syndrome. -Hyperlipidemia -Type 2 diabetes mellitus Plan - Discharge Summary Discharge Rx Participant: No New Discharge Prescriptions: New Budesonide-Formot 160-4.5 Mcg [Symbicort 160-4.5 Mcg Inhaler] 2 puff INHALATION BID #1 inhaler Continue Omeprazole [PriLOSEC] 20 mg PO BID Insulin Glargine,Hum.rec.anlog [Basaglar Kwikpen U-100] 30 unit SQ BID Gabapentin [Neurontin] 300 mg PO TID INSULIN LISPRO (HumaLOG) [humaLOG] 10 unit SQ AC-TID lisinopriL [Zestril] 10 mg PO DAILY #30 tab Tamsulosin [Flomax] 0.8 mg PO DAILY Methocarbamol [Robaxin-750] 750 mg PO TID Albuterol Sulfate [Proair Hfa] 2 puff INHALATION RT-QID PRN PRN Reason: Shortness Of Breath Nitroglycerin Sl Tabs [Nitrostat] 0.4 mg SUBLINGUAL Q5M PRN #20 tab PRN Reason: Chest Pain oxyCODONE-APAP 10-325MG [Percocet 10-325 mg] 1 tab PO QID Isosorbide Mononitrate ER [Imdur] 30 mg PO DAILY #30 tab.er.24h Metoprolol Tartrate [Lopressor] 75 mg PO BID #60 tab Atorvastatin [Lipitor] 40 mg PO HS Discharge Medication List Omeprazole [PriLOSEC] 20 mg PO BID 12/11/17 [History] Insulin Glargine,Hum.rec.anlog [Basaglar Kwikpen U-100] 30 unit SQ BID 08/26/19 [History] Gabapentin [Neurontin] 300 mg PO TID 10/12/19 [History] INSULIN LISPRO (HumaLOG) [humaLOG] 10 unit SQ AC-TID 02/16/20 [History] lisinopriL [Zestril] 10 mg PO DAILY #30 tab 02/17/20 [Rx] Tamsulosin [Flomax] 0.8 mg PO DAILY 04/08/20 [History] Albuterol Sulfate [Proair Hfa] 2 puff INHALATION RT-QID PRN 10/26/20 [History] Methocarbamol [Robaxin-750] 750 mg PO TID 10/26/20 [History] oxyCODONE-APAP 10-325MG [Percocet 10-325 mg] 1 tab PO QID 10/26/20 [History] Isosorbide Mononitrate ER [Imdur] 30 mg PO DAILY #30 tab.er.24h 11/01/20 [Rx] Metoprolol Tartrate [Lopressor] 75 mg PO BID #60 tab 11/01/20 [Rx] Nitroglycerin Sl Tabs [Nitrostat] 0.4 mg SUBLINGUAL Q5M PRN #20 tab 11/01/20 [Rx] Atorvastatin [Lipitor] 40 mg PO HS 11/13/20 [History] Budesonide-Formot 160-4.5 Mcg [Symbicort 160-4.5 Mcg Inhaler] 2 puff INHALATION BID #1 inhaler 11/14/20 [Rx] Follow up Appointment(s)/Referral(s): Trav Muniz MD [Primary Care Provider] - 3 Days
[2020-11-14] MEDS: predniSONE 20 MG TAB PO SCH (13:25)
[2020-11-14] MEDS: HEPARIN SODIUM,PORCINE/PF 5,000 UNIT/0.5 ML SYRINGE SQ SCH ×2 (13:25→20:24)
[2020-11-14] MEDS: IPRATROPIUM-ALBUTEROL 3 ML NEB INHALATION PRN ×2 (13:32→19:37)
[2020-11-14 17:08] LABS: Glucose,Whole Blood 334 mg/dL (75-99)
--- NOTE | 2020-11-14 17:42 | CONS ---
CONSULTATION HISTORY OF PRESENT ILLNESS: This is a 55-year-old gentleman. 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 He was seen and underwent a cardiac cath that was performed by Dr. Arora and this was performed on October 27, less than a month ago which revealed no significant obstructive CAD. The patient comes back into the hospital with complaints of having chest pain and also palpitations. Patient is known to have sinus tachycardia, has been on beta blockers. He complains of shortness of breath. I spent quite a bit of time and explained to the patient that there is no evidence to suggest any significant abnormalities. His D- dimer, troponins, EKG are normal and recent cardiac cath was unremarkable. Patient however is upset. He wishes that something was wrong and that we are not able to find it. I explained to him that based on my evaluation and review of data, there is no evidence to suggest any significant abnormalities, but he is welcome to find another cardiology opinion and follow up with anyone he wishes. He is slightly tachycardic, but that has been his baseline. He is on beta blockers. Please refer to detailed consultation by Dr. Arora and also Dr. Rosario within the last 3 weeks. PHYSICAL EXAMINATION: On examination, blood pressure is 140/70, pulse rate is 88 per minute. No JVD. HEENT: Unremarkable. Fundus was not examined by me. Neck is supple. No JVD. I do not hear a carotid bruit. HEART exam reveals S1, S2 heard normally. No significant murmurs. LUNGS revealed bilateral decent air entry. ABDOMEN is soft. Lower EXTREMITIES reveal diminished pulses. CENTRAL NERVOUS SYSTEM is normal. EKG revealed sinus mechanism without any acute changes. IMPRESSION: 1. Atypical chest pain. 2. Anxiety. 3. Recent unremarkable cardiac cath. RECOMMENDATIONS: I am recommending the patient can be discharged home on current medications which include beta blockers. An echo was performed which revealed normal systolic function. Thank you very much for the consult. MMODL / IJN: [id number] /
[2020-11-14] MEDS: BUDESONIDE 0.5 MG/2 ML NEBU INHALATION SCH (19:37)
[2020-11-14 19:40] LABS: Glucose,Whole Blood 406 mg/dL (75-99)
[2020-11-14] MEDS: ATORVASTATIN 40 MG TAB PO SCH (20:23)
[2020-11-14 20:31] LABS: Glucose,Whole Blood 390 mg/dL (75-99)
[2020-11-15 01:58] VITALS: TEMP 97.8
[2020-11-15] MEDS: oxyCODONE-APAP 10-325MG 1 EACH TAB PO PRN ×3 (02:40→14:35)
[2020-11-15 06:50] LABS: Glucose,Whole Blood 251 mg/dL (75-99)
[2020-11-15 07:49] VITALS: BP 150/85
[2020-11-15] MEDS: INSULIN DETEMIR (LEVEMIR) 100 UNIT/ML SYR SQ SCH (07:51)
[2020-11-15] MEDS: INSULIN ASPART (NovoLOG) 100 UNIT/ML VIAL SQ SCH ×4 (07:51→12:42)
[2020-11-15 08:12] VITALS: RESP 18
[2020-11-15] MEDS: BUDESONIDE 0.5 MG/2 ML NEBU INHALATION SCH (08:12)
[2020-11-15 08:27] VITALS: PULSE 80
[2020-11-15] MEDS: METOPROLOL TARTRATE 25 MG TAB PO SCH (08:33)
[2020-11-15] MEDS: GABAPENTIN 300 MG CAP PO SCH (08:33)
[2020-11-15] MEDS: predniSONE 20 MG TAB PO SCH (08:33)
[2020-11-15] MEDS: TAMSULOSIN 0.4 MG CAP.ER.24H PO SCH (08:33)
[2020-11-15] MEDS: ASPIRIN 325 MG TAB PO SCH (08:33)
[2020-11-15] MEDS: methocarbamoL 750 MG TAB PO SCH (08:33)
[2020-11-15] MEDS: HEPARIN SODIUM,PORCINE/PF 5,000 UNIT/0.5 ML SYRINGE SQ SCH (08:34)
[2020-11-15] MEDS: ISOSORBIDE MONONITRATE ER 30 MG TAB.ER.24H PO SCH (08:34)
[2020-11-15] MEDS: lisinopriL 10 MG TAB PO SCH (08:34)
[2020-11-15] MEDS: PANTOPRAZOLE 40 MG TABLET PO SCH (08:34)
[2020-11-15 11:53] LABS: Glucose,Whole Blood 251 mg/dL (75-99)
--- NOTE | 2020-11-15 12:13 | P.DS ---
Providers Date of admission: 11/13/20 12:40 Attending physician: Víctor Cook Consults: 11/13/20 12:35 Consult Physician Urgent Consulting Provider: [facility] Consult Reason/Comments: Chest chest pain, tachycardia Do you want consulting provider notified?: Yes Primary care physician: [facility] Course: 51-year-old male came in with compensative chest pain patient gives me typical symptoms of chest pain with on the left side of the chest radiating to the left arm tingling numbness along with the shortness of breath. Patient had a cardiac catheterization about a week ago which he did not show any significant episodic occlusive disease patient apparently had clean coronaries at that time. Patient was subsequently discharged patient does have history of atrial fibrillation patient does have risk factors including diabetes with us hypertension hyperlipidemia. Patient repeatedly keeps asking for Dilaudid. Patient has back issues for which patient is on Percocet. Does have history of obstructive sleep apnea. Patient is morbidly obese. Patient does have history of mitral valve prolapse in the past history of pulmonary embolism presently not on any anticoagulation. 11/14/2020 Patient is still complaining of chest pain cardiology will evaluate the patient. Patient had a recent radical catheterization all the workup is negative, if cleared by cardiology patient will be discharged today. Avoid any opiates except the medications he takes at home. 11/15/2020 Patient denied any chest or abdominal pain today. Patient was not discharged yesterday wheezing a bit was later in the day patient was started on oral steroids patient wheezing is better today still has mild disease patient will be discharged on short course of prednisone when he is on prednisone patient will need to take long-acting insulin 50 twice a day and once he is done with the prednisone in about 7 days he can go back to 40 twice a day. His blood sugars are not well-controlled on 35 twice a day of long-acting insulin along with other regimen Constitutional: Denied any fatigue denied any fever. Cardio vascular: As mentioned in the interval history Gastrointestinal denied any nausea vomiting Pulmonary: Denied any shortness of breath cough Neurologic denied any new focal deficits All inpatient medications were reviewed and appropriate changes in these medications as dictated in the interval history and assessment and plan. PHYSICAL EXAMINATION: GENERAL: The patient is alert and oriented x3, not in any acute distress. obese HEENT: Pupils are round and equally reacting to light. EOMI. No scleral icterus. No conjunctival pallor. Normocephalic, atraumatic. No pharyngeal erythema. No thyromegaly. CARDIOVASCULAR: S1 and S2 present. No murmurs, rubs, or gallops. PULMONARY: Expiratory wheezing on exam ABDOMEN: Soft, nontender, nondistended, normoactive bowel sounds. No palpable organomegaly. MUSCULOSKELETAL: No joint swelling or deformity. EXTREMITIES: No cyanosis, clubbing, or pedal edema. NEUROLOGICAL: Gross neurological examination did not reveal any focal deficits. SKIN: No rashes. Assessment and Plan Plan: chest pain: Patient does have typical features of chest pain although patient had a recent cardiac catheterization which did not show any symptoms and abnormalities were do not believe his chest pain is cardiac in origin but patient will be monitored and will be evaluated by cardiology. Cardiology evaluated the patient obtain an echocardiogram and cleared for discharge patient had a normal ejection fraction on echo -Chronic back pain for which patient will be resumed on his home medications avoid any intravenous opiates. -Hypertension -History of sinus tachycardia for which patient is on metoprolol which will be continued -Obesity -Obstructive sleep apnea. And possible COPD with acute exacerbation -Hyperlipidemia -Type 2 diabetes mellitus Plan - Discharge Summary Discharge Rx Participant: No New Discharge Prescriptions: New Budesonide-Formot 160-4.5 Mcg [Symbicort 160-4.5 Mcg Inhaler] 2 puff INHALATION BID #1 inhaler predniSONE 10 mg PO DAILY #10 tab Continue Omeprazole [PriLOSEC] 20 mg PO BID Gabapentin [Neurontin] 300 mg PO TID INSULIN LISPRO (HumaLOG) [humaLOG] 10 unit SQ AC-TID lisinopriL [Zestril] 10 mg PO DAILY #30 tab Tamsulosin [Flomax] 0.8 mg PO DAILY Methocarbamol [Robaxin-750] 750 mg PO TID Albuterol Sulfate [Proair Hfa] 2 puff INHALATION RT-QID PRN PRN Reason: Shortness Of Breath Nitroglycerin Sl Tabs [Nitrostat] 0.4 mg SUBLINGUAL Q5M PRN #20 tab PRN Reason: Chest Pain oxyCODONE-APAP 10-325MG [Percocet 10-325 mg] 1 tab PO QID Isosorbide Mononitrate ER [Imdur] 30 mg PO DAILY #30 tab.er.24h Metoprolol Tartrate [Lopressor] 75 mg PO BID #60 tab Atorvastatin [Lipitor] 40 mg PO HS Changed Insulin Glargine,Hum.rec.anlog [Basaglar Kwikpen U-100] 50 unit SQ BID #0 Discharge Medication List Omeprazole [PriLOSEC] 20 mg PO BID 12/11/17 [History] Gabapentin [Neurontin] 300 mg PO TID 10/12/19 [History] INSULIN LISPRO (HumaLOG) [humaLOG] 10 unit SQ AC-TID 02/16/20 [History] lisinopriL [Zestril] 10 mg PO DAILY #30 tab 02/17/20 [Rx] Tamsulosin [Flomax] 0.8 mg PO DAILY 04/08/20 [History] Albuterol Sulfate [Proair Hfa] 2 puff INHALATION RT-QID PRN 10/26/20 [History] Methocarbamol [Robaxin-750] 750 mg PO TID 10/26/20 [History] oxyCODONE-APAP 10-325MG [Percocet 10-325 mg] 1 tab PO QID 10/26/20 [History] Isosorbide Mononitrate ER [Imdur] 30 mg PO DAILY #30 tab.er.24h 11/01/20 [Rx] Metoprolol Tartrate [Lopressor] 75 mg PO BID #60 tab 11/01/20 [Rx] Nitroglycerin Sl Tabs [Nitrostat] 0.4 mg SUBLINGUAL Q5M PRN #20 tab 11/01/20 [Rx] Atorvastatin [Lipitor] 40 mg PO HS 11/13/20 [History] Budesonide-Formot 160-4.5 Mcg [Symbicort 160-4.5 Mcg Inhaler] 2 puff INHALATION BID #1 inhaler 11/14/20 [Rx] Insulin Glargine,Hum.rec.anlog [Basaglar Kwikpen U-100] 50 unit SQ BID #0 11/15/20 [Rx] predniSONE 10 mg PO DAILY #10 tab 11/15/20 [Rx] Follow up Appointment(s)/Referral(s): Miguel Arora MD [STAFF PHYSICIAN] - 1 Week (Please call Monday morning to make appointment) Trav Muniz MD [Primary Care Provider] - 3 Days (Please call Monday morning to make appointment) Patient Instructions/Handouts: COPD (Chronic Obstructive Pulmonary Disease) (DC), Noncardiac Chest Pain (DC) Discharge Disposition: HOME SELF-CARE
== END 2020-11-15 17:08 | disposition home or self-care (01) ==
LOC: EC 09:24 → 6NMEDSUR 12:40
PROVIDERS: ADMIT Internal Medicine; ATTEND Internal Medicine
DX: R07.9 Chest pain, unspecified (principal); R00.0 Tachycardia, unspecified; I48.91 Unspecified atrial fibrillation; G47.33 Obstructive sleep apnea (adult) (pediatric); I10 Essential (primary) hypertension; E78.5 Hyperlipidemia, unspecified; E11.9 Type 2 diabetes mellitus without complications; J45.909 Unspecified asthma, uncomplicated; F41.9 Anxiety disorder, unspecified; M51.26 Other intervertebral disc displacement, lumbar region; G89.29 Other chronic pain; M54.9 Dorsalgia, unspecified; M54.30 Sciatica, unspecified side; Z20.822 Contact with and (suspected) exposure to COVID-19; E78.00 Pure hypercholesterolemia, unspecified; I25.10 Atherosclerotic heart disease of native coronary artery without angina pectoris; I34.1 Nonrheumatic mitral (valve) prolapse; I25.2 Old myocardial infarction; K21.9 Gastro-esophageal reflux disease without esophagitis; N40.0 Benign prostatic hyperplasia without lower urinary tract symptoms; E66.9 Obesity, unspecified; Z68.41 Body mass index [BMI] 40.0-44.9, adult; Z79.4 Long term (current) use of insulin; Z79.899 Other long term (current) drug therapy; Z88.5 Allergy status to narcotic agent; Z88.6 Allergy status to analgesic agent; Z88.8 Allergy status to other drugs, medicaments and biological substances; Z88.1 Allergy status to other antibiotic agents; Z16.24 Resistance to multiple antibiotics; Z86.711 Personal history of pulmonary embolism; Z87.11 Personal history of peptic ulcer disease; Z90.49 Acquired absence of other specified parts of digestive tract; Z83.49 Family history of other endocrine, nutritional and metabolic diseases; Z82.49 Family history of ischemic heart disease and other diseases of the circulatory system; Z80.9 Family history of malignant neoplasm, unspecified; Z82.61 Family history of arthritis
CPT/HCPCS: 96372 ×2; 96374; 99285; 36415; 94640 ×3; 94760; 93005; 93306; 85379; 83880; 80061; 80053; 83735; 84484; 85025; 85610; 85730; 80306; 87636; 71046; G0378 ×3; J2060; J7512 ×2; J1644

== ENCOUNTER 2020-11-20 12:03 | Emergency (ER) | payer OTHER ==
[2020-11-20 12:07] VITALS: BP 144/95; PULSE 125; RESP 18; TEMP 98
[2020-11-20] MEDS ORDERED: ONDANSETRON 4 MG/2 ML VIAL IVP STA (12:56)
[2020-11-20] MEDS ORDERED: HYDROmorphone 1 MG/ML 1 ML SYRINGE IVP STA (12:57)
[2020-11-20] MEDS ORDERED: diphenhydrAMINE 50 MG/ML 1 ML VIAL IVP STA (13:00)
[2020-11-20] MEDS ORDERED: DIAZEPAM 5 MG/ML 2 ML INJ IVP STA (13:18)
--- NOTE | 2020-11-20 13:41 | ED ---
Back Pain HPI - General Chief Complaint: Back Pain/Injury Stated Complaint: leg numbness, back pain Time Seen by Provider: 11/20/20 12:40 Source: patient Limitations: no limitations - History of Present Illness Initial Comments: Patient is a 55-year-old male, with multiple comorbidities, presenting to the emergency Department with complaints of increasing back pain since yesterday. He states he twisted wrong and started having severe lower back pain as well as right leg numbness. He states the pain is shooting down his right leg. He sent has a long history of chronic back pain, he's had lumbar decompression surgery, laminectomies. He follows up with doctors at [facility]. He states he has had a recent MRI a few months ago, showing no new processes. Patient also complains that he lost bowel or bladder control early this morning and again a few hours prior to arrival. He states he did not know he had urinated and defecated. He denies any falls. Denies any fevers or chills. He has no further complaints. - Related Data Home Medications Medication Instructions Recorded Confirmed Omeprazole [PriLOSEC] 20 mg PO BID 12/11/17 11/20/20 Gabapentin [Neurontin] 300 mg PO TID 10/12/19 11/20/20 INSULIN LISPRO (HumaLOG) [humaLOG] 10 unit SQ AC-TID 02/16/20 11/20/20 Tamsulosin [Flomax] 0.8 mg PO DAILY 04/08/20 11/20/20 Albuterol Sulfate [Proair Hfa] 2 puff INHALATION RT-QID PRN 10/26/20 11/20/20 Methocarbamol [Robaxin-750] 750 mg PO TID 10/26/20 11/20/20 oxyCODONE-APAP 10-325MG [Percocet 1 tab PO QID 10/26/20 11/20/20 10-325 mg] Atorvastatin [Lipitor] 40 mg PO HS 11/13/20 11/20/20 Budesonide-Formot 160-4.5 Mcg 2 puff INHALATION RT-BID 11/20/20 11/20/20 [Symbicort 160-4.5 Mcg Inhaler] predniSONE See Taper PO DAILY 11/20/20 11/20/20 Previous Rx's Medication Instructions Recorded lisinopriL [Zestril] 10 mg PO DAILY #30 tab 02/17/20 Isosorbide Mononitrate ER [Imdur] 30 mg PO DAILY #30 tab.er.24h 11/01/20 Metoprolol Tartrate [Lopressor] 75 mg PO BID #60 tab 11/01/20 Nitroglycerin Sl Tabs [Nitrostat] 0.4 mg SUBLINGUAL Q5M PRN #20 tab 11/01/20 Insulin Glargine,Hum.rec.anlog 50 unit SQ BID #0 11/15/20 [Basaglar Dianaikpen U-100] Allergies Allergy/AdvReac Type Severity Reaction Status Date / Time doxycycline Allergy Swelling Verified 11/20/20 12:58 ketorolac tromethamine Allergy Rash/Hives Verified 11/20/20 12:58 [From Toradol] morphine Allergy Rash/Hives Verified 11/20/20 12:58 metoclopramide HCl AdvReac Dystonic Verified 11/20/20 12:58 [From Reglan] Reaction prochlorperazine edisylate AdvReac Dystonic Verified 11/20/20 12:58 [From Compazine] Reaction prochlorperazine maleate AdvReac Dystonic Verified 11/20/20 12:58 [From Compazine] Reaction tramadol AdvReac Nausea & Verified 11/20/20 12:58 Vomiting Review of Systems ROS Statement: Those systems with pertinent positive or pertinent negative responses have been documented in the HPI. ROS Other: All systems not noted in ROS Statement are negative. Past Medical History Past Medical History: Asthma, Coronary Artery Disease (CAD), Chest Pain / Angina, Diabetes Mellitus, GERD/Reflux, GI Bleed, Hyperlipidemia, Hypertension, Myocardial Infarction ([place]), Mitral Valve Prolapse (MVP), Pulmonary Embolus (PE), Sleep Apnea/CPAP/BIPAP Additional Past Medical History / Comment(s): Asthmatic bronchitis-chronic, IDDM type II, neuropathy bilateral feet, lower and upper GI bleeds, PUD, diverticulitis, colectomy d/t benign mass/intusseption, BPH, renal cysts, nephrolithiais, UTI with sepsis, chronic back pain 2ndary to herniated lumbar discs/sciatica, JARED does not use his Cpap, MVP, murmur Last Myocardial Infarction Date:: 2011 History of Any Multi-Drug Resistant Organisms: MRSA Date of last positivie culture/infection: 2016 MDRO Source:: left axilla Past Surgical History: Appendectomy, Back Surgery, Cholecystectomy, Heart Catheterization, Hernia Repair Additional Past Surgical History / Comment(s): Lumbar decompressio n/fusion/laminectomy, spinal stimulator, T lift procedure, L inguinal hernia repair, multiple ESWLs/stents/double J caths, colonoscopy, 02/2020 colectomy, EGDs for food obstructions and dilations Past Anesthesia/Blood Transfusion Reactions: No Reported Reaction Past Psychological History: No Psychological Hx Reported Smoking Status: Never smoker Past Alcohol Use History: None Reported Past Drug Use History: None Reported - Past Family History Father Family Medical History: Chest Pain / Angina Additional Family Medical History / Comment(s): "lung problems" Mother Family Medical History: Cancer, Chest Pain / Angina, Congestive Heart Failure (CHF), Osteoarthritis (OA), Thyroid Disorder Additional Family Medical History / Comment(s): "female cancer" General Exam - General Exam Comments Initial Comments: GENERAL: Patient is well-developed and well-nourished. Patient is nontoxic and in moderate distress. HEAD: Atraumatic, normocephalic. EYES: Pupils equal round and reactive to light, extraocular movements intact, sclera anicteric, conjunctiva are normal. Eyelids were unremarkable. ENT: Nares patent, oropharynx clear without exudates. Moist mucous membranes. NECK: Normal range of motion, supple without lymphadenopathy or JVD. LUNGS: Unlabored respirations. Breath sounds clear to auscultation bilaterally and equal. No wheezes rales or rhonchi. HEART: Regular rate and rhythm without murmurs, rubs or gallops. ABDOMEN: Soft, nontender, normoactive bowel sounds. No guarding, no rebound. No masses appreciated. : Deferred MUSCULOSKELETAL: Normal extremities with adequate strength and normal range of motion, no pitting or edema. No clubbing or cyanosis. Tender to palpation of lumbar musculature. Patient has increased pain in his low back with active range of motion of his right lower leg. Sensation is equal in bilateral lower extremities. NEUROLOGICAL: Patient is alert and oriented x 3. Motor and sensory are also intact. Cranial nerves II through XII grossly intact. Symmetrical smile. Normal speech, normal gait. PSYCH: Normal mood, normal affect. SKIN: Warm, Dry, normal turgor, no rashes or lesions noted. Limitations: no limitations Rectal exam: Present: normal inspection, normal rectal tone Course Vital Signs 11/20/20 12:05 Temperature 98 F Pulse Rate 125 H Respiratory 18 Rate Blood Pressure 144/95 O2 Sat by Pulse 96 Oximetry Medical Decision Making - Medical Decision Making Patient is a 55-year-old male with multiple comorbidities, chronic low back pain presenting for increase in pain since yesterday. He is complaining of pain and numbness running down his right leg. Patient is well-known to this ER for same complaint. He since had no fevers. No falls. Given patient's complaints of bowel or bladder incontinence, I did order a CT of the lumbar spine which shows a stable postoperative appearance of the lumbar spine, no acute disease process. She states he already took one of his Percocets prior to arrival, did give him Valium, Benadryl and Zofran. He states he continues to have increased pain. Patient was able to urinate without difficulty, we did do a bladder scan, there was very small amount of urine left, 50 mL. Patient seems to be moving around the bed without difficulty. His reflexes are intact. I believe patient to be drug seeking. He was able to ambulate into the ER without difficulty, is been going around his head without difficulty, reflexes are normal. He has normal rectal tone, no post-void residual retention. I discussed with the patient that I'm not comfortable giving him narcotics. He can continue with his already prescribed pain medications at home. He needs to follow up with his quality specialist this. He is stable for discharge. Case discussed with Dr. Mishra. Disposition Clinical Impression: Acute exacerbation of chronic low back pain Disposition: HOME SELF-CARE Condition: Stable Instructions (If sedation given, give patient instructions): Acute Low Back Pain (ED) Additional Instructions: Please return to the Emergency Department if symptoms worsen or any other concerns. Follow up with your spine Dr. specialties as discussed. Is patient prescribed a controlled substance at d/c from ED?: No Referrals: Trav Muniz MD [Primary Care Provider] - 1-2 days Time of Disposition: 15:59
--- NOTE | 2020-11-20 14:28 | CT ---
EXAMINATION TYPE: CT lumbar spine wo con DATE OF EXAM: 11/20/2020 COMPARISON: 12/31/2019 HISTORY: Back pain and leg numbness CT DLP: 1565.[address] of the lumbar spine was performed. Bone and soft tissue window settings are submitted as well as coronal and sagittal reconstructions. L1-L2: Normal disc space height. No disc herniation protrusion or central stenosis. No facet joint arthropathy. No evidence for foraminal encroachment. L2-L3: Mild vacuum changes noted. Ventral spondylosis. No herniation or protrusion. No central stenos is. L3-L4: Postoperative changes of fusion. Intervertebral spacer is in place. No changes evident. Pedicu lar screws noted. No evidence for recurrent or residual disease. Streak artifact limits evaluation. L4-L5: Postoperative changes of the decompressive laminectomy. Pedicular screws are in place. Alignme nt is stable and anatomic. No evidence for recurrent or residual disease. No herniation or central st enosis appreciated. L5-S1: Postoperative changes of the decompressive laminectomy. Pedicular screws are in place. Alignme nt is stable and anatomic. No evidence for recurrent or residual disease. No herniation or central st enosis appreciated. No paraspinal masses are identified. Lumbar segments are free if fracture. IMPRESSION: 1. Stable postoperative appearance of the lumbar spine. No evidence for recurrent or residual disease . Normal-appearing alignment.
== END 2020-11-20 16:07 | disposition home or self-care (01) ==
LOC: EC 12:03
DX: G89.29 Other chronic pain (principal); M54.5 Low back pain; M79.604 Pain in right leg; R20.0 Anesthesia of skin; J45.909 Unspecified asthma, uncomplicated; I25.10 Atherosclerotic heart disease of native coronary artery without angina pectoris; E11.40 Type 2 diabetes mellitus with diabetic neuropathy, unspecified; K21.9 Gastro-esophageal reflux disease without esophagitis; I10 Essential (primary) hypertension; E78.5 Hyperlipidemia, unspecified; I25.2 Old myocardial infarction; G47.33 Obstructive sleep apnea (adult) (pediatric); Z86.711 Personal history of pulmonary embolism; Z79.4 Long term (current) use of insulin; Z79.899 Other long term (current) drug therapy; Z79.51 Long term (current) use of inhaled steroids
CPT/HCPCS: 51798; 72131; 99283; 96374; 96375 ×3; J1200; J3360; J2405; J1170

== ENCOUNTER 2020-12-18 22:52 | Emergency (ER) | payer OTHER ==
[2020-12-18 23:03] VITALS: BP 156/99; PULSE 113; RESP 22; TEMP 98
[2020-12-18] MEDS ORDERED: HYDROmorphone 1 MG/ML 1 ML SYRINGE IM STA (23:42)
[2020-12-18] MEDS ORDERED: ORPHENADRINE 30 MG/ML 2 ML VIAL IM STA (23:42)
--- NOTE | 2020-12-18 23:43 | ED ---
General Adult HPI - General Chief complaint: Back Pain/Injury Stated complaint: lower back injury Time Seen by Provider: 12/18/20 23:23 Source: patient Mode of arrival: ambulatory Limitations: no limitations - History of Present Illness Initial comments: 55-year-old male patient presents to the emergency department today for evaluation of low back pain with radiation down the right leg. Patient states he has chronic back pain, symptoms are consistent with his usual pain pattern. States he does have a spinal stimulator however there is a malfunction with the battery and charting sodas not functioning appropriately. Patient states since this started to act up he has had increased pain. Taking his home Percocet, baclofen, and gabapentin without relief. Patient states his been unable to sleep in 3 days. He is requesting something to help his pain. He denies any new symptoms. Denies any saddle anesthesia, loss of bowel or bladder control, or numbness or tingling to the lower extremities. Denies any injuries. Denies fever or chills. - Related Data Home Medications Medication Instructions Recorded Confirmed Omeprazole [PriLOSEC] 20 mg PO BID 12/11/17 11/20/20 Gabapentin [Neurontin] 300 mg PO TID 10/12/19 11/20/20 INSULIN LISPRO (HumaLOG) [humaLOG] 10 unit SQ AC-TID 02/16/20 11/20/20 Tamsulosin [Flomax] 0.8 mg PO DAILY 04/08/20 11/20/20 Albuterol Sulfate [Proair Hfa] 2 puff INHALATION RT-QID PRN 10/26/20 11/20/20 Methocarbamol [Robaxin-750] 750 mg PO TID 10/26/20 11/20/20 oxyCODONE-APAP 10-325MG [Percocet 1 tab PO QID 10/26/20 11/20/20 10-325 mg] Atorvastatin [Lipitor] 40 mg PO HS 11/13/20 11/20/20 Budesonide-Formot 160-4.5 Mcg 2 puff INHALATION RT-BID 11/20/20 11/20/20 [Symbicort 160-4.5 Mcg Inhaler] predniSONE See Taper PO DAILY 11/20/20 11/20/20 Previous Rx's Medication Instructions Recorded lisinopriL [Zestril] 10 mg PO DAILY #30 tab 02/17/20 Isosorbide Mononitrate ER [Imdur] 30 mg PO DAILY #30 tab.er.24h 11/01/20 Metoprolol Tartrate [Lopressor] 75 mg PO BID #60 tab 11/01/20 Nitroglycerin Sl Tabs [Nitrostat] 0.4 mg SUBLINGUAL Q5M PRN #20 tab 11/01/20 Insulin Glargine,Hum.rec.anlog 50 unit SQ BID #0 11/15/20 [Basaglar Kwikpen U-100] Allergies Allergy/AdvReac Type Severity Reaction Status Date / Time doxycycline Allergy Swelling Verified 12/18/20 23:03 ketorolac tromethamine Allergy Rash/Hives Verified 12/18/20 23:03 [From Toradol] morphine Allergy Rash/Hives Verified 12/18/20 23:03 metoclopramide HCl AdvReac Dystonic Verified 12/18/20 23:03 [From Reglan] Reaction prochlorperazine edisylate AdvReac Dystonic Verified 12/18/20 23:03 [From Compazine] Reaction prochlorperazine maleate AdvReac Dystonic Verified 12/18/20 23:03 [From Compazine] Reaction tramadol AdvReac Nausea & Verified 12/18/20 23:03 Vomiting Review of Systems ROS Statement: Those systems with pertinent positive or pertinent negative responses have been documented in the HPI. ROS Other: All systems not noted in ROS Statement are negative. Past Medical History Past Medical History: Asthma, Coronary Artery Disease (CAD), Chest Pain / Ang liz, Diabetes Mellitus, GERD/Reflux, GI Bleed, Hyperlipidemia, Hypertension, Myocardial Infarction ([place]), Mitral Valve Prolapse (MVP), Pulmonary Embolus (PE), Sleep Apnea/CPAP/BIPAP Additional Past Medical History / Comment(s): Asthmatic bronchitis-chronic, IDDM type II, neuropathy bilateral feet, lower and upper GI bleeds, PUD, diverticulitis, colectomy d/t benign mass/intusseption, BPH, renal cysts, nephrolithiais, UTI with sepsis, chronic back pain 2ndary to herniated lumbar discs/sciatica, JARED does not use his Cpap, MVP, murmur Last Myocardial Infarction Date:: 2011 History of Any Multi-Drug Resistant Organisms: MRSA Date of last positivie culture/infection: 2016 MDRO Source:: left axilla Past Surgical History: Appendectomy, Back Surgery, Cholecystectomy, Heart Catheterization, Hernia Repair Additional Past Surgical History / Comment(s): Lumbar decompression/fusion/laminectomy, spinal stimulator, T lift procedure, L inguinal hernia repair, multiple ESWLs/stents/double J caths, colonoscopy, 02/2020 colectomy, EGDs for food obstructions and dilations Past Anesthesia/Blood Transfusion Reactions: No Reported Reaction Past Psychological History: No Psychological Hx Reported Smoking Status: Never smoker Past Alcohol Use History: None Reported Past Drug Use History: None Reported - Past Family History Father Family Medical History: Chest Pain / Angina Additional Family Medical History / Comment(s): "lung problems" Mother Family Medical History: Cancer, Chest Pain / Angina, Congestive Heart Failure (CHF), Osteoarthritis (OA), Thyroid Disorder Additional Family Medical History / Comment(s): "female cancer" General Exam Limitations: no limitations General appearance: alert, in no apparent distress, other (This is a well- developed, well-nourished adult male in no acute distress) Respiratory exam: Present: normal lung sounds bilaterally. Absent: respiratory distress, wheezes, rales, rhonchi, stridor Cardiovascular Exam: Present: regular rate, normal rhythm, normal heart sounds. Absent: systolic murmur, diastolic murmur, rubs, gallop, clicks GI/Abdominal exam: Present: soft, normal bowel sounds. Absent: distended, tenderness, guarding, rebound, rigid Extremities exam: Present: normal inspection, full ROM, normal capillary refill, other (Skin to the lower extremities pink, warm, dry. Cap refill less than 3 seconds. Pedal and posttibial pulses are 2+.). Absent: tenderness, pedal edema, joint swelling, calf tenderness Back exam: Present: normal inspection, vertebral tenderness (Lumbar) Neurological exam: Present: alert, oriented X3, CN II-XII intact Expanded Motor strength exam: RLE: 5, LLE: 5 Psychiatric exam: Present: normal affect, normal mood Skin exam: Present: warm, dry, intact, normal color. Absent: rash Course Vital Signs 12/18/20 22:59 Temperature 98.0 F Pulse Rate 113 H Respiratory 22 Rate Blood Pressure 156/99 O2 Sat by Pulse 97 Oximetry Medical Decision Making - Medical Decision Making 55-year-old male patient with history of chronic low back pain implanted nerve stimulator in his spine presents requesting pain medication. States he is having increased pain due to his spinal stimulator malfunctioning. Physical examination is unremarkable. He reports no new symptoms Has no concerning symptoms for cauda equina. He is afebrile. He is given IM doses of pain medication and muscle relaxer. To be discharged follow-up with his primary care physician and pediatric sports medicine specialist for further evaluation as soon as possible. Return parameters were discussed in detail. He verbalizes understanding and agrees with this plan. My attending is Dr. Hernandez. Disposition Clinical Impression: Low back pain Disposition: HOME SELF-CARE Condition: Good Instructions (If sedation given, give patient instructions): Acute Low Back Pain (ED) Additional Instructions: Follow-up with your primary care physician for recheck in 1-2 days. Return for any new, worsening, or concerning symptoms. Is patient prescribed a controlled substance at d/c from ED?: No Referrals: Trav Muniz MD [Primary Care Provider] - 1-2 days Time of Disposition: 23:43
== END 2020-12-19 | disposition home or self-care (01) ==
LOC: EC 22:52
DX: M54.5 Low back pain (principal); J45.909 Unspecified asthma, uncomplicated; I25.10 Atherosclerotic heart disease of native coronary artery without angina pectoris; K21.9 Gastro-esophageal reflux disease without esophagitis; I10 Essential (primary) hypertension; E78.5 Hyperlipidemia, unspecified; I21.9 Acute myocardial infarction, unspecified; I34.1 Nonrheumatic mitral (valve) prolapse; Z86.711 Personal history of pulmonary embolism; E11.40 Type 2 diabetes mellitus with diabetic neuropathy, unspecified; G47.33 Obstructive sleep apnea (adult) (pediatric); Z79.4 Long term (current) use of insulin; Z79.51 Long term (current) use of inhaled steroids
CPT/HCPCS: 99283; 96372 ×2; J2360; J1170

== ENCOUNTER 2021-01-18 15:01 | Emergency (ER) | payer OTHER ==
[2021-01-18 15:05] VITALS: BP 135/84; PULSE 108; RESP 20; TEMP 99.3
[2021-01-18] MEDS ORDERED: HYDROmorphone 1 MG/ML 1 ML SYRINGE IM STA (15:29)
[2021-01-18] MEDS ORDERED: ORPHENADRINE 30 MG/ML 2 ML VIAL IM STA (15:29)
--- NOTE | 2021-01-18 15:30 | ED ---
Back Pain HPI - General Chief Complaint: Back Pain/Injury Stated Complaint: back pain Time Seen by Provider: 01/18/21 15:18 Source: patient, RN notes reviewed Limitations: no limitations - History of Present Illness Initial Comments: 55-year-old male presents emergency Department chief complaint low back pain. This chronic pain in nature he denies any red flag symptoms including bowel bladder incontinence or retention of setting seasonal lower shunted paresthesias. Patient has pain rates from his right leg which is chronic. Patient is currently dealing with his pain specialist regarding his pain seemed later they've been having issues with discharging he is scheduled to have one more tests done with a on Monday and if it is unsuccessful they are to replace it. Patient denies any abdominal pain no fevers or chills no other complaints. - Related Data Home Medications Medication Instructions Recorded Confirmed Omeprazole [PriLOSEC] 20 mg PO BID 12/11/17 11/20/20 Gabapentin [Neurontin] 300 mg PO TID 10/12/19 11/20/20 INSULIN LISPRO (HumaLOG) [humaLOG] 10 unit SQ AC-TID 02/16/20 11/20/20 Tamsulosin [Flomax] 0.8 mg PO DAILY 04/08/20 11/20/20 Albuterol Sulfate [Proair Hfa] 2 puff INHALATION RT-QID PRN 10/26/20 11/20/20 Methocarbamol [Robaxin-750] 750 mg PO TID 10/26/20 11/20/20 oxyCODONE-APAP 10-325MG [Percocet 1 tab PO QID 10/26/20 11/20/20 10-325 mg] Atorvastatin [Lipitor] 40 mg PO HS 11/13/20 11/20/20 Budesonide-Formot 160-4.5 Mcg 2 puff INHALATION RT-BID 11/20/20 11/20/20 [Symbicort 160-4.5 Mcg Inhaler] predniSONE See Taper PO DAILY 11/20/20 11/20/20 Previous Rx's Medication Instructions Recorded lisinopriL [Zestril] 10 mg PO DAILY #30 tab 02/17/20 Isosorbide Mononitrate ER [Imdur] 30 mg PO DAILY #30 tab.er.24h 11/01/20 Metoprolol Tartrate [Lopressor] 75 mg PO BID #60 tab 11/01/20 Nitroglycerin Sl Tabs [Nitrostat] 0.4 mg SUBLINGUAL Q5M PRN #20 tab 11/01/20 Insulin Glargine,Hum.rec.anlog 50 unit SQ BID #0 11/15/20 [Basaglrodrigo Rosepen U-100] Allergies Allergy/AdvReac Type Severity Reaction Status Date / Time doxycycline Allergy Swelling Verified 01/18/21 15:05 ketorolac tromethamine Allergy Rash/Hives Verified 01/18/21 15:05 [From Toradol] morphine Allergy Rash/Hives Verified 01/18/21 15:05 metoclopramide HCl AdvReac Dystonic Verified 01/18/21 15:05 [From Reglan] Reaction prochlorperazine edisylate AdvReac Dystonic Verified 01/18/21 15:05 [From Compazine] Reaction prochlorperazine maleate AdvReac Dystonic Verified 01/18/21 15:05 [From Compazine] Reaction tramadol AdvReac Nausea & Verified 01/18/21 15:05 Vomiting Review of Systems ROS Statement: Those systems with pertinent positive or pertinent negative responses have been documented in the HPI. ROS Other: All systems not noted in ROS Statement are negative. Past Medical History Past Medical History: Asthma, Coronary Artery Disease (CAD), Chest Pain / Angina, Diabetes Mellitus, GERD/Reflux, GI Bleed, Hyperlipidemia, Hypertension, Myocardial Infarction ([place]), Mitral Valve Prolapse (MVP), Pulmonary Embolus (PE), Sleep Apnea/CPAP/BIPAP Additional Past Medical History / Comment(s): Asthmatic bronchitis-chronic, IDDM type II, neuropathy bilateral feet, lower and upper GI bleeds, PUD, diverticulitis, colectomy d/t benign mass/intusseption, BPH, renal cysts, nephrolithiais, UTI with sepsis, chronic back pain 2ndary to herniated lumbar discs/sciatica, JARED does not use his Cpap, MVP, murmur Last Myocardial Infarction Date:: 2011 History of Any Multi-Drug Resistant Organisms: MRSA Date of last positivie culture/infection: 2015 MDRO Source:: left axilla Past Surgical History: Appendectomy, Back Surgery, Cholecystectomy, Heart Catheterization, Hernia Repair Additional Past Surgical History / Comment(s): Lumbar decompression/fusion/laminectomy, spinal stimulator, T lift procedure, L inguinal hernia repair, multiple ESWLs/stents/double J caths, colonoscopy, 02/2020 colectomy, EGDs for food obstructions and dilations Past Anesthesia/Blood Transfusion Reactions: No Reported Reaction Past Psychological History: No Psychological Hx Reported Smoking Status: Never smoker Past Alcohol Use History: None Reported Past Drug Use History: None Reported - Past Family History Father Family Medical History: Chest Pain / Angina Additional Family Medical History / Comment(s): "lung problems" Mother Family Medical History: Cancer, Chest Pain / Angina, Congestive Heart Failure (CHF), Osteoarthritis (OA), Thyroid Disorder Additional Family Medical History / Comment(s): "female cancer" General Exam Limitations: no limitations General appearance: alert, in no apparent distress Head exam: Present: atraumatic, normocephalic, normal inspection Respiratory exam: Present: normal lung sounds bilaterally. Absent: respiratory distress, wheezes, rales, rhonchi, stridor Cardiovascular Exam: Present: regular rate, normal rhythm, normal heart sounds. Absent: systolic murmur, diastolic murmur, rubs, gallop, clicks GI/Abdominal exam: Present: soft, normal bowel sounds. Absent: distended, tenderness, guarding, rebound, rigid Extremities exam: Present: normal inspection, full ROM, normal capillary refill. Absent: tenderness, pedal edema, joint swelling, calf tenderness Back exam: Present: full ROM, tenderness, paraspinal tenderness. Absent: vertebral tenderness Neurological exam: Present: alert, reflexes normal. Absent: motor sensory deficit Course Vital Signs 01/18/21 15:03 Temperature 99.3 F Pulse Rate 108 H Respiratory 20 Rate Blood Pressure 135/84 O2 Sat by Pulse 99 Oximetry Medical Decision Making - Medical Decision Making Patient provided pain control will be discharged in stable condition is no red flag symptoms he has an appointment Monday for follow-up return parameters were discussed. Disposition Clinical Impression: Low back pain Disposition: HOME SELF-CARE Condition: Stable Instructions (If sedation given, give patient instructions): Acute Low Back Pain (ED) Additional Instructions: Please return to the Emergency Department if symptoms worsen or any other concerns. Is patient prescribed a controlled substance at d/c from ED?: No Referrals: Trav Muniz MD [Primary Care Provider] - 1-2 days Time of Disposition: 15:30
== END 2021-01-18 15:57 | disposition home or self-care (01) ==
LOC: EC 15:01
DX: M54.5 Low back pain (principal); J45.909 Unspecified asthma, uncomplicated; I25.10 Atherosclerotic heart disease of native coronary artery without angina pectoris; E11.9 Type 2 diabetes mellitus without complications; K21.9 Gastro-esophageal reflux disease without esophagitis; E78.5 Hyperlipidemia, unspecified; I10 Essential (primary) hypertension; I25.2 Old myocardial infarction; G47.33 Obstructive sleep apnea (adult) (pediatric); Z99.81 Dependence on supplemental oxygen; Z86.711 Personal history of pulmonary embolism; Z90.89 Acquired absence of other organs; Z90.49 Acquired absence of other specified parts of digestive tract; Z95.5 Presence of coronary angioplasty implant and graft
CPT/HCPCS: 99283; 96372 ×2; J2360; J1170

== ENCOUNTER 2021-02-07 12:43 | Emergency (ER) | payer OTHER ==
[2021-02-07] MEDS ORDERED: HYDROmorphone 0.5 MG/0.5 ML SYRINGE IVP STA (13:12)
[2021-02-07] MEDS ORDERED: SODIUM CHLORIDE 0.9% 1,000 ML IV STA (13:12)
[2021-02-07 13:14] LABS: Basophils % (A) 0 %; Eosinophils # (A) 0.2 k/uL (0-0.7); Eosinophils % (A) 2 %; HGB 14.4 gm/dL (13.0-17.5); Lymphocytes # (A) 1.6 k/uL (1.0-4.8); Lymphocytes % (A) 14 %; MCH 28.6 pg (25.0-35.0); MCHC 33.5 g/dL (31.0-37.0); MCV 85.3 fL (80.0-100.0); Mean Platelet Volume 7.3; Monocytes # (A) 0.4 k/uL (0-1.0); Monocytes % (A) 4 %; Neutrophils % (A) 79 %; Platelet Count 294 k/uL (150-450); RBC 5.04 m/uL (4.30-5.90); RDW 13.6 % (11.5-15.5); WBC 11.5 k/uL (3.8-10.6)
--- NOTE | 2021-02-07 13:16 | ED ---
General Adult HPI - General Chief complaint: Abdominal Pain Stated complaint: Abd Pain, Blood in Urine Time Seen by Provider: 02/07/21 12:49 Source: patient Mode of arrival: ambulatory Limitations: no limitations - History of Present Illness Initial comments: Dictation was produced using [employer] dictation software. please excuse any grammatical, word or spelling errors. Chief Complaint: 55-year-old male with past nuchal history of kidney stones presents with 2 days of right-sided flank pain History of Present Illness: Is a 55-year-old male he has history of kidney stones. States that the last 2 days he developed severe right-sided flank pain. Patient also noted blood in his urine. He's been having urinary hesitancy. Patient states that he has right-sided flank pain that radiates down to the right groin. He also states that his company with nausea. States the pain is colicky in nature. The ROS documented in this emergency department record has been reviewed and confirmed by me. Those systems with pertinent positive or negative responses have been documented in the HPI. All other systems are other negative and/or noncontributory. PHYSICAL EXAM: General Impression: Alert and oriented x3, not in acute distress HEENT: Normocephalic atraumatic, extra-ocular movements intact, pupils equal and reactive to light bilaterally, mucous membranes moist. Cardiovascular: Heart regular rate and rhythm Chest: Able to complete full sentences, no retractions, no tachypnea Abdomen: abdomen soft, non-tender, non-distended, no organomegaly Musculoskeletal: Pulses present and equal in all extremities, no peripheral edema, negative CVA tenderness Motor: no focal deficits noted Neurological: CN II-XII grossly intact, no focal motor or sensory deficits noted Skin: Intact with no visualized rashes Psych: Normal affect and mood ED course: 55-year-old male past medical history of kidney stones presents with clinical presentation consistent with symptomatic nephrolithiasis. Vital signs upon arrival shows her to 129, worse vital signs within acceptable limits. Patient's well-appearing at bedside. Smiling and resting comfortably. He reports that his symptoms are similar to any some pain that he's had in the past . Urinalysis shows 34 white blood cells. CBC and metabolic panel is unremarkable. Patient reevaluated bedside found to be in stable medical condition. Denies any testicular pain. Ultrasound of the kidneys urinary and bladder shows no acute processes. No signs of obstructive uropathy. Patient reevaluated at bedside at 2:15 PM. He wants to try to see if he can handle oral medications. Patient reevaluated at bedside at 2:20 PM found to be in stable medical condition. He is tolerating oral intake. Patient given prescription for antibiotics and analgesics. Patient be discharged. Told to follow-up with his primary care doctor or urologist. - Related Data Home Medications Medication Instructions Recorded Confirmed Omeprazole [PriLOSEC] 20 mg PO BID 12/11/17 02/07/21 Gabapentin [Neurontin] 300 mg PO TID 10/12/19 02/07/21 INSULIN LISPRO (HumaLOG) [humaLOG] 10 unit SQ AC-TID 02/16/20 02/07/21 Methocarbamol [Robaxin-750] 750 mg PO TID 10/26/20 02/07/21 oxyCODONE-APAP 10-325MG [Percocet 1 tab PO TID 10/26/20 02/07/21 10-325 mg] Atorvastatin [Lipitor] 40 mg PO HS 11/13/20 02/07/21 Apixaban [Eliquis] 5 mg PO BID 02/07/21 02/07/21 Diltiazem Cd [Cardizem Cd] 300 mg PO DAILY 02/07/21 02/07/21 Insulin Glargine,Hum.rec.anlog 30 unit SQ BID 02/07/21 02/07/21 [Basaglar Kwikpen U-100] Previous Rx's Medication Instructions Recorded lisinopriL [Zestril] 10 mg PO DAILY #30 tab 02/17/20 Isosorbide Mononitrate ER [Imdur] 30 mg PO DAILY #30 tab.er.24h 11/01/20 Metoprolol Tartrate [Lopressor] 75 mg PO BID #60 tab 11/01/20 Nitroglycerin Sl Tabs [Nitrostat] 0.4 mg SUBLINGUAL Q5M PRN #20 tab 11/01/20 Ciprofloxacin HCl [Cipro] 500 mg PO BID 7 Days #14 tab 02/07/21 oxyCODONE HCL/ACETAMINOPHEN 1 tab PO Q6HR PRN 3 Days #12 tab 02/07/21 [Percocet 5-325 mg] Allergies Allergy/AdvReac Type Severity Reaction Status Date / Time doxycycline Allergy Swelling Verified 02/07/21 13:25 ketorolac tromethamine Allergy Rash/Hives Verified 02/07/21 13:25 [From Toradol] morphine Allergy Rash/Hives Verified 02/07/21 13:25 metoclopramide HCl AdvReac Dystonic Verified 02/07/21 13:25 [From Reglan] Reaction prochlorperazine edisylate AdvReac Dystonic Verified 02/07/21 13:25 [From Compazine] Reaction prochlorperazine maleate AdvReac Dystonic Verified 02/07/21 13:25 [From Compazine] Reaction tramadol AdvReac Nausea & Verified 02/07/21 13:25 Vomiting Review of Systems ROS Statement: Those systems with pertinent positive or pertinent negative responses have been documented in the HPI. ROS Other: All systems not noted in ROS Statement are negative. Past Medical History Past Medical History: Asthma, Coronary Artery Disease (CAD), Chest Pain / Angina, Diabetes Mellitus, GERD/Reflux, GI Bleed, Hyperlipidemia, Hypertension, Myocardial Infarction ([place]), Mitral Valve Prolapse (MVP), Pulmonary Embolus (PE), Sleep Apnea/CPAP/BIPAP Additional Past Medical History / Comment(s): Asthmatic bronchitis-chronic, IDDM type II, neuropathy bilateral feet, lower and upper GI bleeds, PUD, diverticulitis, colectomy d/t benign mass/intusseption, BPH, renal cysts, nephrolithiais, UTI with sepsis, chronic back pain 2ndary to herniated lumbar discs/sciatica, JARED does not use his Cpap, MVP, murmur Last Myocardial Infarction Date:: 2011 History of Any Multi-Drug Resistant Organisms: MRSA Date of last positivie culture/infection: 2015 MDRO Source:: left axilla Past Surgical History: Appendectomy, Back Surgery, Cholecystectomy, Heart Catheterization, Hernia Repair Additional Past Surgical History / Comment(s): Lumbar decompre ssion/fusion/laminectomy, spinal stimulator, T lift procedure, L inguinal hernia repair, multiple ESWLs/stents/double J caths, colonoscopy, 02/2020 colectomy, EGDs for food obstructions and dilations Past Anesthesia/Blood Transfusion Reactions: No Reported Reaction Past Psychological History: No Psychological Hx Reported Smoking Status: Never smoker Past Alcohol Use History: None Reported Past Drug Use History: None Reported - Past Family History Father Family Medical History: Chest Pain / Angina Additional Family Medical History / Comment(s): "lung problems" Mother Family Medical History: Cancer, Chest Pain / Angina, Congestive Heart Failure (CHF), Osteoarthritis (OA), Thyroid Disorder Additional Family Medical History / Comment(s): "female cancer" General Exam Limitations: no limitations Course Vital Signs 02/07/21 02/07/21 12:44 14:32 Temperature 97.8 F 97.7 F Pulse Rate 129 H 105 H Respiratory 20 18 Rate Blood Pressure 176/91 153/99 O2 Sat by Pulse 96 98 Oximetry Medical Decision Making - Lab Data Result diagrams: 02/07/21 13:05 02/07/21 13:05 Lab Results 02/07/21 02/07/21 02/07/21 Range/Units 13:05 13:05 13:05 WBC 11.5 H (3.8-10.6) k/uL RBC 5.04 (4.30-5.90) m/uL Hgb 14.4 (13.0-17.5) gm/dL Hct 43.0 (39.0-53.0) % MCV 85.3 (80.0-100.0) fL MCH 28.6 (25.0-35.0) pg MCHC 33.5 (31.0-37.0) g/dL RDW 13.6 (11.5-15.5) % Plt Count 294 (150-450) k/uL MPV 7.3 Neutrophils % 79 % Lymphocytes % 14 % Monocytes % 4 % Eosinophils % 2 % Basophils % 0 % Neutrophils # 9.0 H (1.3-7.7) k/uL Lymphocytes # 1.6 (1.0-4.8) k/uL Monocytes # 0.4 (0-1.0) k/uL Eosinophils # 0.2 (0-0.7) k/uL Basophils # 0.0 (0-0.2) k/uL Sodium 137 (137-145) mmol/L Potassium 4.0 (3.5-5.1) mmol/L Chloride 106 (98-107) mmol/L Carbon Dioxide 18 L (22-30) mmol/L Anion Gap 13 mmol/L BUN 9 (9-20) mg/dL Creatinine 0.50 L (0.66-1.25) mg/dL Est GFR (CKD-EPI)AfAm >90 (>60 ml/min/1.73 sqM) Est GFR (CKD-EPI)NonAf >90 (>60 ml/min/1.73 sqM) Glucose 190 H (74-99) mg/dL Calcium 9.3 (8.4-10.2) mg/dL Urine Color Yellow Urine Appearance Cloudy (Clear) Urine pH 5.0 (5.0-8.0) Ur Specific [place] 1.021 (1.001-1.035) Urine Protein Negative (Negative) Urine Glucose (UA) 4+ H (Negative) Urine Ketones Negative (Negative) Urine Blood Negative (Negative) Urine Nitrite Negative (Negative) Urine Bilirubin Negative (Negative) Urine Urobilinogen <2.0 (<2.0) mg/dL Ur Leukocyte Esterase Small H (Negative) Urine RBC 2 (0-5) /hpf Urine WBC 34 H (0-5) /hpf Ur Squamous Epith Cells 3 (0-4) /hpf Hyaline Casts 7 H (0-2) /lpf Urine Mucus Occasional H (None) /hpf Disposition Clinical Impression: Kidney stone Disposition: HOME SELF-CARE Condition: Fair Instructions (If sedation given, give patient instructions): Kidney Stones (ED), Urinary Tract Infection in Older Adults (ED) Prescriptions: Ciprofloxacin HCl [Cipro] 500 mg PO BID 7 Days #14 tab oxyCODONE HCL/ACETAMINOPHEN [Percocet 5-325 mg] 1 tab PO Q6HR PRN 3 Days #12 tab PRN Reason: Pain Is patient prescribed a controlled substance at d/c from ED?: Yes If prescribed controlled substance>3 days was MAPS reviewed?: Prescribed <3 Days Referrals: Trav Muniz MD [Primary Care Provider] - 1-2 days
[2021-02-07 13:21] LABS: Appearance,Urine Cloudy (Clear); Bilirubin,Urine Negative (Negative); Blood,Urine Negative (Negative); Color,Urine Yellow; Glucose,Urine (UA) 4+ (Negative); Hyaline Casts,Urine 7 /lpf (0-2); Ketones,Urine Negative (Negative); Leukocyte Esterase,Urine Small (Negative); Mucus,Urine Occasional /hpf; Nitrite,Urine Negative (Negative); Protein,Urine Negative (Negative); RBC,Urine 2 /hpf (0-5); Specific Gravity,Urine 1.021 (1.001-1.035); Squamous Epithelial Cell,Urine 3 /hpf (0-4); Urobilinogen,Urine <2.0 mg/dL (<2.0); WBC,Urine 34 /hpf (0-5)
[2021-02-07 13:23] LABS: African American GFR (CKD) >90 (>60 ml/min/1.73 sqM); Anion Gap 13 mmol/L; Blood Urea Nitrogen 9 mg/dL (9-20); Calcium 9.3 mg/dL (8.4-10.2); Carbon Dioxide 18 mmol/L (22-30); Chloride 106 mmol/L (98-107); Glucose 190 mg/dL (74-99); Non-African American GFR(CKD) >90 (>60 ml/min/1.73 sqM); Sodium 137 mmol/L (137-145)
[2021-02-07] MEDS ORDERED: cefTRIAXone IN SWFI 1,000 MG/10 ML SYRINGE IVP STA (13:24)
[2021-02-07] MEDS ORDERED: ONDANSETRON 4 MG/2 ML VIAL IVP STA ×2 (13:25→14:14)
--- NOTE | 2021-02-07 14:09 | US ---
EXAMINATION TYPE: US kidneys/renal and bladder DATE OF EXAM: 02/07/2021 COMPARISON: NONE CLINICAL HISTORY: flank pain. EXAM MEASUREMENTS: Right Kidney: 10.4 x 5.9 x 6.8 cm Left Kidney: 10.0 x 7.0 x 6.6 cm Right Kidney: Contains an anechoic cyst measuring 4.1 x 3.6 x 3.8 cm. No hydronephrosis or renal calc gill Left Kidney: No hydronephrosis, renal calculi, or mass Bladder: Appears partially distended and unremarkable IMPRESSION: 1. No evidence of obstructive uropathy. 2. Right renal cyst.
[2021-02-07] MEDS ORDERED: oxyCODONE-APAP 7.5-325MG 1 EACH TAB PO STA (14:14)
[2021-02-07 14:32] VITALS: BP 153/99; PULSE 105; RESP 18; TEMP 97.7
== END 2021-02-07 15:14 | disposition home or self-care (01) ==
LOC: EC 12:43
DX: N20.0 Calculus of kidney (principal); E11.40 Type 2 diabetes mellitus with diabetic neuropathy, unspecified; I10 Essential (primary) hypertension; I25.10 Atherosclerotic heart disease of native coronary artery without angina pectoris; I25.2 Old myocardial infarction; E78.5 Hyperlipidemia, unspecified; J45.909 Unspecified asthma, uncomplicated; K21.9 Gastro-esophageal reflux disease without esophagitis; Z79.01 Long term (current) use of anticoagulants; Z79.4 Long term (current) use of insulin; Z79.899 Other long term (current) drug therapy; Z88.5 Allergy status to narcotic agent; Z88.8 Allergy status to other drugs, medicaments and biological substances; Z90.49 Acquired absence of other specified parts of digestive tract; Z83.49 Family history of other endocrine, nutritional and metabolic diseases; Z86.711 Personal history of pulmonary embolism; Z82.49 Family history of ischemic heart disease and other diseases of the circulatory system; Z87.11 Personal history of peptic ulcer disease
CPT/HCPCS: 96374; 96375 ×2; 96376; 96361; 99284; 51798; 36415; 80048; 85025; 81001; 87086; 76770; J2405; J0696; J1170

== ENCOUNTER 2021-02-24 16:59 | Emergency (ER) | payer OTHER ==
[2021-02-24 17:07] VITALS: TEMP 98
[2021-02-24 17:17] LABS: Glucose,Whole Blood 463 mg/dL (75-99)
[2021-02-24] MEDS ORDERED: SODIUM CHLORIDE 0.9% 1,000 ML IV STA (18:38)
--- NOTE | 2021-02-24 19:28 | CT ---
EXAMINATION TYPE: CT brain cspine wo con DATE OF EXAM: 02/24/2021 COMPARISON: None HISTORY: Syncope, fall on blood thinners. CT DLP: 1984.8 mGycm Automated exposure control for dose reduction was used. Images of the brain and cervical spine without contrast. Ventricles have normal size. There is no mass effect nor midline shift. There is no sign of intracran ial hemorrhage. Calvarium is intact. Skull base is intact. There is normal aeration of the mastoid si nuses. Cervical vertebra have normal alignment. There is disc surgery and prosthesis at C4-5 and C5-6. Facet joints are intact. There is no evidence of cervical spine fracture. IMPRESSION: Negative CT scan of the cervical spine. Negative CT scan of the brain.
[2021-02-24 19:34] LABS: Appearance,Urine Clear (Clear); Basophils # (A) 0.1 k/uL (0-0.2); Basophils % (A) 1 %; Bilirubin,Urine Negative (Negative); Blood,Urine Negative (Negative); Color,Urine Light Yellow; Eosinophils # (A) 0.1 k/uL (0-0.7); Eosinophils % (A) 1 %; Glucose,Urine (UA) 4+ (Negative); HCT 43.4 % (39.0-53.0); HGB 14.5 gm/dL (13.0-17.5); Ketones,Urine Negative (Negative); Leukocyte Esterase,Urine Negative (Negative); Lymphocytes # (A) 2.1 k/uL (1.0-4.8); Lymphocytes % (A) 20 %; MCH 28.8 pg (25.0-35.0); MCHC 33.4 g/dL (31.0-37.0); MCV 86.1 fL (80.0-100.0); Mean Platelet Volume 7.6; Monocytes # (A) 0.7 k/uL (0-1.0); Monocytes % (A) 7 %; Neutrophils # (A) 7.2 k/uL (1.3-7.7); Neutrophils % (A) 70 %; Nitrite,Urine Negative (Negative); Platelet Count 315 k/uL (150-450); Protein,Urine Negative (Negative); RBC 5.04 m/uL (4.30-5.90); RDW 14.7 % (11.5-15.5); Specific Gravity,Urine 1.036 (1.001-1.035); Urobilinogen,Urine <2.0 mg/dL (<2.0); WBC 10.3 k/uL (3.8-10.6)
--- NOTE | 2021-02-24 19:43 | XR ---
EXAMINATION TYPE: XR chest 2V DATE OF EXAM: 02/24/2021 COMPARISON: 11/13/2020 HISTORY: Short of breath TECHNIQUE: 2 views FINDINGS: Heart and mediastinum are normal. Lungs are clear. Diaphragm is normal. There is neural sti mulator in the lower thoracic spine. Bony thorax appears intact. IMPRESSION: No active cardiopulmonary disease. No change.
[2021-02-24 19:47] LABS: ALT 34 U/L (4-49); AST 25 U/L (17-59); African American GFR (CKD) >90 (>60 ml/min/1.73 sqM); Albumin 4.7 g/dL (3.5-5.0); Alkaline Phosphatase 131 U/L (38-126); Anion Gap 13 mmol/L; Blood Urea Nitrogen 15 mg/dL (9-20); Carbon Dioxide 19 mmol/L (22-30); Chloride 101 mmol/L (98-107); Glucose 360 mg/dL (74-99); Non-African American GFR(CKD) >90 (>60 ml/min/1.73 sqM); Potassium 4.1 mmol/L (3.5-5.1); Sodium 133 mmol/L (137-145); Total Bilirubin 0.5 mg/dL (0.2-1.3); Total Protein 7.3 g/dL (6.3-8.2)
[2021-02-24 20:04] LABS: INR 0.8 (<1.2); Prothrombin Time 9.4 sec (9.0-12.0)
[2021-02-24 20:05] LABS: Partial Thromboplastin Time 17.8 sec (22.0-30.0)
--- NOTE | 2021-02-24 20:22 | ED ---
General Adult HPI - General Chief complaint: Recheck/Abnormal Lab/Rx Stated complaint: high blood sugar/syncope Time Seen by Provider: 02/24/21 18:16 Source: patient Mode of arrival: ambulatory Limitations: no limitations - History of Present Illness Initial comments: Patient is a 55-year-old male with history of diabetes, heart disease, chronic back pain, presenting to the emergency Department with complaints of elevated glucose levels since last night. Patient states he was feeling very fatigued and "drunk like last night", he checked his blood sugar and it read as high. Patient states he does remember using the restroom the middle of the night, he woke up on the bathroom floor. He does not know how long he was out for. He states he did get up this morning and go to work, he did check his glucose level and again it said high. He states he finished work and then presented to the ER. He states he "should have came in earlier." He has been admitted for DKA in the past. Patient is also complaining of the cough and fatigue, he has a h istory of PE, is currently on eliquis. He denies any fevers or chills, no abdominal pain, some mild nausea but no vomiting, he's had a single episode of diarrhea. He currently has no chest pain. He states he took 10 units of insulin this morning after the read was high. Nothing further. He has no further complaints. - Related Data Home Medications Medication Instructions Recorded Confirmed Omeprazole [PriLOSEC] 20 mg PO BID 12/11/17 02/07/21 Gabapentin [Neurontin] 300 mg PO TID 10/12/19 02/07/21 INSULIN LISPRO (HumaLOG) [humaLOG] 10 unit SQ AC-TID 02/16/20 02/07/21 Methocarbamol [Robaxin-750] 750 mg PO TID 10/26/20 02/07/21 oxyCODONE-APAP 10-325MG [Percocet 1 tab PO TID 10/26/20 02/07/21 10-325 mg] Atorvastatin [Lipitor] 40 mg PO HS 11/13/20 02/07/21 Apixaban [Eliquis] 5 mg PO BID 02/07/21 02/07/21 Diltiazem Cd [Cardizem Cd] 300 mg PO DAILY 02/07/21 02/07/21 Insulin Glargine,Hum.rec.anlog 30 unit SQ BID 02/07/21 02/07/21 [Luanne Rosejosé U-100] Previous Rx's Medication Instructions Recorded lisinopriL [Zestril] 10 mg PO DAILY #30 tab 02/17/20 Isosorbide Mononitrate ER [Imdur] 30 mg PO DAILY #30 tab.er.24h 11/01/20 Metoprolol Tartrate [Lopressor] 75 mg PO BID #60 tab 11/01/20 Nitroglycerin Sl Tabs [Nitrostat] 0.4 mg SUBLINGUAL Q5M PRN #20 tab 11/01/20 Ciprofloxacin HCl [Cipro] 500 mg PO BID 7 Days #14 tab 02/07/21 oxyCODONE HCL/ACETAMINOPHEN 1 tab PO Q6HR PRN 3 Days #12 tab 02/07/21 [Percocet 5-325 mg] Allergies Allergy/AdvReac Type Severity Reaction Status Date / Time doxycycline Allergy Swelling Verified 02/24/21 17:03 ketorolac tromethamine Allergy Rash/Hives Verified 02/24/21 17:03 [From Toradol] morphine Allergy Rash/Hives Verified 02/24/21 17:03 metoclopramide HCl AdvReac Dystonic Verified 02/24/21 17:03 [From Reglan] Reaction prochlorperazine edisylate AdvReac Dystonic Verified 02/24/21 17:03 [From Compazine] Reaction prochlorperazine maleate AdvReac Dystonic Verified 02/24/21 17:03 [From Compazine] Reaction tramadol AdvReac Nausea & Verified 02/24/21 17:03 Vomiting Review of Systems ROS Statement: Those systems with pertinent positive or pertinent negative responses have been documented in the HPI. ROS Other: All systems not noted in ROS Statement are negative. Past Medical History Past Medical History: Asthma, Coronary Artery Disease (CAD), Chest Pain / Angina, Diabetes Mellitus, GERD/Reflux, GI Bleed, Hyperlipidemia, Hypertension, Myocardial Infarction ([place]), Mitral Valve Prolapse (MVP), Pulmonary Embolus (PE), Sleep Apnea/CPAP/BIPAP Additional Past Medical History / Comment(s): Asthmatic bronchitis-chronic, IDDM type II, neuropathy bilateral feet, lower and upper GI bleeds, PUD, diverticulitis, colectomy d/t benign mass/intusseption, BPH, renal cysts, nephrolithiais, UTI with sepsis, chronic back pain 2ndary to herniated lumbar discs/sciatica, JARED does not use his Cpap, MVP, murmur Last Myocardial Infarction Date:: 2011 History of Any Multi-Drug Resistant Organisms: MRSA Date of last positivie culture/infection: 2015 MDRO Source:: left axilla Past Surgical History: Appendectomy, Back Surgery, Cholecystectomy, Heart Catheterization, Hernia Repair Additional Past Surgical History / Comment(s): Lumbar decompression/fusion/laminectomy, spinal stimulator, T lift procedure, L inguinal hernia repair, multiple ESWLs/stents/double J caths, colonoscopy, 02/2020 colectomy, EGDs for food obstructions and dilations Past Anesthesia/Blood Transfusion Reactions: No Reported Reaction Past Psychological History: No Psychological Hx Reported Smoking Status: Never smoker Past Alcohol Use History: None Reported Past Drug Use History: None Reported - Past Family History Father Family Medical History: Chest Pain / Angina Additional Family Medical History / Comment(s): "lung problems" Mother Family Medical History: Cancer, Chest Pain / Angina, Congestive Heart Failure (CHF), Osteoarthritis (OA), Thyroid Disorder Additional Family Medical History / Comment(s): "female cancer" General Exam - General Exam Comments Initial Comments: GENERAL: Patient is well-developed and well-nourished. Patient is nontoxic and in no acute distress. HEAD: Atraumatic, normocephalic. EYES: Pupils equal round and reactive to light, extraocular movements intact, sclera anicteric, conjunctiva are normal. Eyelids were unremarkable. ENT: TMs normal, nares patent, oropharynx clear without exudates. Moist mucous membranes. NECK: Normal range of motion, supple without lymphadenopathy or JVD. LUNGS: Unlabored respirations. Breath sounds clear to auscultation bilaterally and equal. No wheezes rales or rhonchi. HEART: Regular rate and rhythm without murmurs, rubs or gallops. ABDOMEN: Soft, mild generalized discomfort, no specific area pain, normoactive bowel maliha nds. No guarding, no rebound. No masses appreciated. : Deferred MUSCULOSKELETAL: Normal extremities with adequate strength and normal range of motion, no pitting or edema. No clubbing or cyanosis. NEUROLOGICAL: Patient is alert and oriented x 3. Motor and sensory are also intact. Cranial nerves II through XII grossly intact. Symmetrical smile. Normal speech, normal gait. PSYCH: Normal mood, normal affect. SKIN: Warm, Dry, normal turgor, no rashes or lesions noted. Limitations: no limitations Course Vital Signs 02/24/21 02/24/21 17:03 21:20 Temperature 98 F Pulse Rate 116 H 92 Respiratory 18 16 Rate Blood Pressure 179/112 139/98 O2 Sat by Pulse 98 97 Oximetry EKG Findings - EKG Comments: EKG Findings:: Sinus tachycardia otherwise normal ECG, no signs of acute ST segment elevation. Ventricular rate 1:15, ND interval 150, QT 350. Similar to previous on 11/13/2020. Medical Decision Making - Medical Decision Making Patient is a 55-year-old female with history of heart disease, diabetes, chronic back pain presenting for elevated glucose levels since last night. He did have a syncopal event last night, he is on eliquis for a PE. Blood glucose at triage was 463. Labs show a normal white count, stable hemoglobin, glucose is 360, troponin is normal, urine shows 4+ glucose but no signs of infection, acetone is negative. CT of the head and C-spine showed no acute process, chest x-ray is normal today. I discussed these findings the patient. Patient is requesting pain medications for his chronic back pain. I discussed with him that he really needs to manage this with his pain management doctor, he states they're in the process of getting a new nerve stimulator, apparently his battery is not working appropriately. I did agree to a single dose of pain medicine, we'll give him some insulin before discharge. He needs to follow up with his PCP regarding on manage diabetes. He is agreeable to this. He is stable for discharge. Return parameters were discussed with him and he verbalized understanding. Case discussed with Dr. Mishra. Patient is exhibiting drug-seeking behaviors. - Lab Data Result diagrams: 02/24/21 19:30 02/24/21 19:30 Lab Results 02/24/21 02/24/21 02/24/21 Range/Units 17:10 19:30 19:30 WBC 10.3 (3.8-10.6) k/uL RBC 5.04 (4.30-5.90) m/uL Hgb 14.5 (13.0-17.5) gm/dL Hct 43.4 (39.0-53.0) % MCV 86.1 (80.0-100.0) fL MCH 28.8 (25.0-35.0) pg MCHC 33.4 (31.0-37.0) g/dL RDW 14.7 (11.5-15.5) % Plt Count 315 (150-450) k/uL MPV 7.6 Neutrophils % 70 % Lymphocytes % 20 % Monocytes % 7 % Eosinophils % 1 % Basophils % 1 % Neutrophils # 7.2 (1.3-7.7) k/uL Lymphocytes # 2.1 (1.0-4.8) k/uL Monocytes # 0.7 (0-1.0) k/uL Eosinophils # 0.1 (0-0.7) k/uL Basophils # 0.1 (0-0.2) k/uL PT (9.0-12.0) sec INR (<1.2) APTT (22.0-30.0) sec Sodium 133 L (137-145) mmol/L Potassium 4.1 (3.5-5.1) mmol/L Chloride 101 (98-107) mmol/L Carbon Dioxide 19 L (22-30) mmol/L Anion Gap 13 mmol/L BUN 15 (9-20) mg/dL Creatinine 0.62 L (0.66-1.25) mg/dL Est GFR (CKD-EPI)AfAm >90 (>60 ml/min/1.73 sqM) Est GFR (CKD-EPI)NonAf >90 (>60 ml/min/1.73 sqM) Glucose 360 H (74-99) mg/dL POC Glucose (mg/dL) 463 H (75-99) mg/dL POC Glu [employer]at [employer] Supervisor ID Lana Swift Calcium 10.0 (8.4-10.2) mg/dL Total Bilirubin 0.5 (0.2-1.3) mg/dL AST 25 (17-59) U/L ALT 34 (4-49) U/L Alkaline Phosphatase 131 H (38-126) U/L Troponin I (0.000-0.034) ng/mL Total Protein 7.3 (6.3-8.2) g/dL Albumin 4.7 (3.5-5.0) g/dL Urine Color Urine Appearance (Clear) Urine pH (5.0-8.0) Ur Specific [place] (1.001-1.035) Urine Protein (Negative) Urine Glucose (UA) (Negative) Urine Ketones (Negative) Urine Blood (Negative) Urine Nitrite (Negative) Urine Bilirubin (Negative) Urine Urobilinogen (<2.0) mg/dL Ur Leukocyte Esterase (Negative) Acetone, Qual Negative (Negative) 02/24/21 02/24/21 02/24/21 Range/Units 19:30 19:30 19:30 WBC (3.8-10.6) k/uL RBC (4.30-5.90) m/uL Hgb (13.0-17.5) gm/dL Hct (39.0-53.0) % MCV (80.0-100.0) fL MCH (25.0-35.0) pg MCHC (31.0-37.0) g/dL RDW (11.5-15.5) % Plt Count (150-450) k/uL MPV Neutrophils % % Lymphocytes % % Monocytes % % Eosinophils % % Basophils % % Neutrophils # (1.3-7.7) k/uL Lymphocytes # (1.0-4.8) k/uL Monocytes # (0-1.0) k/uL Eosinophils # (0-0.7) k/uL Basophils # (0-0.2) k/uL PT 9.4 (9.0-12.0) sec INR 0.8 (<1.2) APTT 17.8 L (22.0-30.0) sec Sodium (137-145) mmol/L Potassium (3.5-5.1) mmol/L Chloride (98-107) mmol/L Carbon Dioxide (22-30) mmol/L Anion Gap mmol/L BUN (9-20) mg/dL Creatinine (0.66-1.25) mg/dL Est GFR (CKD-EPI)AfAm (>60 ml/min/1.73 sqM) Est GFR (CKD-EPI)NonAf (>60 ml/min/1.73 sqM) Glucose (74-99) mg/dL POC Glucose (mg/dL) (75-99) mg/dL POC Glu V[employer] House Supervisor ID Calcium (8.4-10.2) mg/dL Total Bilirubin (0.2-1.3) mg/dL AST (17-59) U/L ALT (4-49) U/L Alkaline Phosphatase (38-126) U/L Troponin I <0.012 (0.000-0.034) ng/mL Total Protein (6.3-8.2) g/dL Albumin (3.5-5.0) g/dL Urine Color Light Yellow Urine Appearance Clear (Clear) Urine pH 5.0 (5.0-8.0) Ur Specific [place] 1.036 H (1.001-1.035) Urine Protein Negative (Negative) Urine Glucose (UA) 4+ H (Negative) Urine Ketones Negative (Negative) Urine Blood Negative (Negative) Urine Nitrite Negative (Negative) Urine Bilirubin Negative (Negative) Urine Urobilinogen <2.0 (<2.0) mg/dL Ur Leukocyte Esterase Negative (Negative) Acetone, Qual (Negative) Disposition Clinical Impression: Hyperglycemia, Chronic back pain Disposition: HOME SELF-CARE Condition: Stable Instructions (If sedation given, give patient instructions): Diabetic Hyperglycemia (ED) Additional Instructions: Please return to the Emergency Department if symptoms worsen or any other concerns. Please increase your fluid intake, monitor glucose. Follow-up with your primary care physician. Is patient prescribed a controlled substance at d/c from ED?: No Referrals: Trav Muniz MD [Primary Care Provider] - 1-2 days Time of Disposition: 20:57
[2021-02-24] MEDS ORDERED: INSULIN ASPART (NovoLOG) 100 UNIT/ML VIAL SQ ONE (20:52)
[2021-02-24] MEDS ORDERED: HYDROmorphone 0.5 MG/0.5 ML SYRINGE IVP STA (20:53)
[2021-02-24] MEDS ORDERED: ORPHENADRINE 30 MG/ML 2 ML VIAL IM STA (20:53)
[2021-02-24 21:38] VITALS: BP 139/98; PULSE 92; RESP 16
== END 2021-02-24 21:20 | disposition home or self-care (01) ==
LOC: EC 16:59
DX: E11.65 Type 2 diabetes mellitus with hyperglycemia (principal); I10 Essential (primary) hypertension; I25.2 Old myocardial infarction; E78.5 Hyperlipidemia, unspecified; J45.909 Unspecified asthma, uncomplicated; I25.10 Atherosclerotic heart disease of native coronary artery without angina pectoris; K21.9 Gastro-esophageal reflux disease without esophagitis; Z86.711 Personal history of pulmonary embolism; Z79.01 Long term (current) use of anticoagulants; Z79.4 Long term (current) use of insulin; Z88.1 Allergy status to other antibiotic agents; Z90.49 Acquired absence of other specified parts of digestive tract
CPT/HCPCS: 99285; 96374; 96372; 36415; 93005; 80053; 82009; 84484; 85025; 85610; 85730; 81003; 71046; 72125; 70450; J2360; J1170

== ENCOUNTER 2021-02-27 12:45 | Emergency (ER) | payer OTHER ==
[2021-02-27 13:20] VITALS: BP 170/112; PULSE 114; RESP 18; TEMP 98.2
[2021-02-27 13:21] LABS: Glucose,Whole Blood 345 mg/dL (75-99)
== END 2021-02-27 13:22 ==
LOC: EC 12:45
DX: R73.9 Hyperglycemia, unspecified (principal); Z53.21 Procedure and treatment not carried out due to patient leaving prior to being seen by health care provider
CPT/HCPCS: 36415; 99499

== ENCOUNTER 2021-03-08 19:54 | Emergency (ER) | payer OTHER ==
[2021-03-08 20:39] VITALS: TEMP 98
[2021-03-08 20:42] LABS: Glucose,Whole Blood 241 mg/dL (75-99)
--- NOTE | 2021-03-08 22:16 | ED ---
General Adult HPI - General Chief complaint: Recheck/Abnormal Lab/Rx Stated complaint: back and Shoulder injury Time Seen by Provider: 03/08/21 22:01 Source: patient Mode of arrival: ambulatory Limitations: no limitations - History of Present Illness Initial comments: This patient's 55-year-old man with history of diabetes. He presents with 2 complaints. The patient states that his blood sugar had been running high since the morning. He does acknowledge noncompliance with diet. The patient acknowledges polydipsia. He has not noted chest pain, dyspnea, palpitations. No abdominal pain, nausea or vomiting. In addition, the patient complains of right shoulder pain since he helped lift his mother from the ground in the morning. He states that it felt like his shoulder might have popped out of joint. He denies weakness or numbness into the extremity. Onset/Timin -: hour(s) Location: right, upper extremity Radiation: non-radiation Quality: aching Consistency: constant Improves with: none Worsens with: none Associated Symptoms: denies other symptoms Treatments Prior to Arrival: none - Related Data Home Medications Medication Instructions Recorded Confirmed Omeprazole [PriLOSEC] 20 mg PO BID 12/11/17 02/07/21 Gabapentin [Neurontin] 300 mg PO TID 10/12/19 02/07/21 INSULIN LISPRO (HumaLOG) [humaLOG] 10 unit SQ AC-TID 02/16/20 02/07/21 Methocarbamol [Robaxin-750] 750 mg PO TID 10/26/20 02/07/21 oxyCODONE-APAP 10-325MG [Percocet 1 tab PO TID 10/26/20 02/07/21 10-325 mg] Atorvastatin [Lipitor] 40 mg PO HS 11/13/20 02/07/21 Apixaban [Eliquis] 5 mg PO BID 02/07/21 02/07/21 Diltiazem Cd [Cardizem Cd] 300 mg PO DAILY 02/07/21 02/07/21 Insulin Glargine,Hum.rec.anlog 30 unit SQ BID 02/07/21 02/07/21 [Basaglar Kwikpen U-100] Previous Rx's Medication Instructions Recorded lisinopriL [Zestril] 10 mg PO DAILY #30 tab 02/17/20 Isosorbide Mononitrate ER [Imdur] 30 mg PO DAILY #30 tab.er.24h 11/01/20 Metoprolol Tartrate [Lopressor] 75 mg PO BID #60 tab 11/01/20 Nitroglycerin Sl Tabs [Nitrostat] 0.4 mg SUBLINGUAL Q5M PRN #20 tab 11/01/20 Ciprofloxacin HCl [Cipro] 500 mg PO BID 7 Days #14 tab 02/07/21 oxyCODONE HCL/ACETAMINOPHEN 1 tab PO Q6HR PRN 3 Days #12 tab 02/07/21 [Percocet 5-325 mg] Allergies Allergy/AdvReac Type Severity Reaction Status Date / Time doxycycline Allergy Swelling Verified 03/08/21 20:36 ketorolac tromethamine Allergy Rash/Hives Verified 03/08/21 20:36 [From Toradol] morphine Allergy Rash/Hives Verified 03/08/21 20:36 metoclopramide HCl AdvReac Dystonic Verified 03/08/21 20:36 [From Reglan] Reaction prochlorperazine edisylate AdvReac Dystonic Verified 03/08/21 20:36 [From Compazine] Reaction prochlorperazine maleate AdvReac Dystonic Verified 03/08/21 20:36 [From Compazine] Reaction tramadol AdvReac Nausea & Verified 03/08/21 20:36 Vomiting Review of Systems ROS Statement: Those systems with pertinent positive or pertinent negative responses have been documented in the HPI. ROS Other: All systems not noted in ROS Statement are negative. Constitutional: Denies: fever, chills, weakness Respiratory: Denies: cough, dyspnea Cardiovascular: Denies: chest pain, palpitations, orthopnea, edema Endocrine: Reports: polydipsia Gastrointestinal: Denies: abdominal pain, nausea, vomiting, diarrhea Genitourinary: Denies: dysuria, hematuria Musculoskeletal: Denies: back pain Skin: Denies: rash Neurological: Denies: headache, weakness, numbness, paresthesias Past Medical History Past Medical History: Asthma, Coronary Artery Disease (CAD), Chest Pain / Angina, Diabetes Mellitus, GERD/Reflux, GI Bleed, Hyperlipidemia, Hypertension, Myocardial Infarction ([place]), Mitral Valve Prolapse (MVP), Pulmonary Embolus (PE), Sleep Apnea/CPAP/BIPAP Additional Past Medical History / Comment(s): Asthmatic bronchitis-chronic, IDDM type II, neuropathy bilateral feet, lower and upper GI bleeds, PUD, diverticulitis, colectomy d/t benign mass/intusseption, BPH, renal cysts, nephrolithiais, UTI with sepsis, chronic back pain 2ndary to herniated lumbar discs/sciatica, JARED does not use his Cpap, MVP, murmur Last Myocardial Infarction Date:: 2011 History of Any Multi-Drug Resistant Organisms: MRSA Date of last positivie culture/infection: 2015 MDRO Source:: left axilla Past Surgical History: Appendectomy, Back Surgery, Cholecystectomy, Heart Catheterization, Hernia Repair Additional Past Surgical History / Comment(s): Lumbar decompression/fusion/laminectomy, spinal stimulator, T lift procedure, L inguinal hernia repair, multiple ESWLs/stents/double J caths, colonoscopy, 02/2020 colectomy, EGDs for food obstructions and dilations Past Anesthesia/Blood Transfusion Reactions: No Reported Reaction Past Psychological History: No Psychological Hx Reported Smoking Status: Never smoker Past Alcohol Use History: None Reported Past Drug Use History: None Reported - Past Family History Father Family Medical History: Chest Pain / Angina Additional Family Medical History / Comment(s): "lung problems" Mother Family Medical History: Cancer, Chest Pain / Angina, Congestive Heart Failure (CHF), Osteoarthritis (OA), Thyroid Disorder Additional Family Medical History / Comment(s): "female cancer" General Exam Limitations: no limitations General appearance: alert, in no apparent distress Head exam: Present: atraumatic, normocephalic Eye exam: Present: normal appearance. Absent: scleral icterus, conjunctival injection ENT exam: Present: normal oropharynx Neck exam: Present: normal inspection Respiratory exam: Present: normal lung sounds bilaterally. Absent: respiratory distress, wheezes, rales, rhonchi, stridor Cardiovascular Exam: Present: regular rate (Heart rate is 104 at my exam), normal rhythm, normal heart sounds. Absent: systolic murmur, diastolic murmur, rubs, gallop GI/Abdominal exam: Present: soft. Absent: distended, tenderness, guarding, rebo und, rigid, mass Extremities exam: Present: normal inspection, normal capillary refill. Absent: pedal edema, calf tenderness Right Shoulder Exam: Present: normal inspection, tenderness. Absent: full ROM, swelling, abrasion, laceration, ecchymosis, deformity, crepitus, dislocation, erythema Upper Arm exam: Present: normal inspection, full ROM. Absent: tenderness, swelling Elbow exam: Present: normal inspection, full ROM. Absent: tenderness, swelling Forearm Wrist exam: Present: normal inspection, full ROM. Absent: tenderness, swelling Hand Wrist exam: Present: normal inspection, full ROM. Absent: tenderness, swelling Neuro motor exam: Present: wrist extension intact, thumb opposition intact, thumb IP flexion intact, thumb adduction intact, fingers 2-5 abduction intact Neurosensory exam: Present: 2-point discrimination, radial nerve intact, ulnar nerve intact, median nerve intact Vascular: Present: normal capillary refill. Absent: vascular compromise, pulse deficit radial art, pulse deficit ulnar art, pulse deficit brachial art Back exam: Present: normal inspection. Absent: CVA tenderness (R), CVA tenderness (L) Neurological exam: Present: alert Skin exam: Present: warm, dry, intact, normal color. Absent: rash Course Vital Signs 03/08/21 20:36 Temperature 98 F Pulse Rate 122 H Respiratory 18 Rate Blood Pressure 103/97 O2 Sat by Pulse 95 Oximetry Medical Decision Making - Lab Data Result diagrams: 03/08/21 22:59 03/08/21 22:59 Lab Results 03/08/21 03/08/21 03/08/21 Range/Units 20:40 22:59 22:59 WBC 8.3 (3.8-10.6) k/uL RBC 4.79 (4.30-5.90) m/uL Hgb 14.0 (13.0-17.5) gm/dL Hct 41.1 (39.0-53.0) % MCV 85.8 (80.0-100.0) fL MCH 29.3 (25.0-35.0) pg MCHC 34.1 (31.0-37.0) g/dL RDW 15.0 (11.5-15.5) % Plt Count 247 (150-450) k/uL MPV 7.2 Neutrophils % 72 % Lymphocytes % 18 % Monocytes % 6 % Eosinophils % 2 % Basophils % 1 % Neutrophils # 5.9 (1.3-7.7) k/uL Lymphocytes # 1.5 (1.0-4.8) k/uL Monocytes # 0.5 (0-1.0) k/uL Eosinophils # 0.2 (0-0.7) k/uL Basophils # 0.1 (0-0.2) k/uL Sodium 132 L (137-145) mmol/L Potassium 4.1 (3.5-5.1) mmol/L Chloride 100 (98-107) mmol/L Carbon Dioxide 22 (22-30) mmol/L Anion Gap 10 mmol/L BUN 14 (9-20) mg/dL Creatinine 0.62 L (0.66-1.25) mg/dL Est GFR (CKD-EPI)AfAm >90 (>60 ml/min/1.73 sqM) Est GFR (CKD-EPI)NonAf >90 (>60 ml/min/1.73 sqM) Glucose 259 H (74-99) mg/dL POC Glucose (mg/dL) 241 H (75-99) mg/dL POC Glu [employer] SHASHI Carol Chan Calcium 9.6 (8.4-10.2) mg/dL Disposition Clinical Impression: Shoulder pain, right, Hyperglycemia Disposition: HOME SELF-CARE Condition: Good Instructions (If sedation given, give patient instructions): Diabetic Hyperglycemia (ED), Shoulder Pain (ED) Is patient prescribed a controlled substance at d/c from ED?: No Referrals: Trav Muniz MD [Primary Care Provider] - 1-2 days
[2021-03-08] MEDS ORDERED: SODIUM CHLORIDE 0.9% 1,000 ML IV ONE (22:17)
[2021-03-08] MEDS ORDERED: oxyCODONE-APAP 10-325MG 1 EACH TAB PO STA (22:19)
--- NOTE | 2021-03-08 22:29 | XR ---
EXAMINATION TYPE: XR shoulder complete RT DATE OF EXAM: 03/08/2021 COMPARISON: NONE HISTORY: Shoulder pain TECHNIQUE: 3 views FINDINGS: I see no fracture nor dislocation. Glenohumeral joint is intact. There are no pathologic ca lcifications. IMPRESSION: Negative right shoulder exam.
[2021-03-08 23:06] LABS: Basophils # (A) 0.1 k/uL (0-0.2); Basophils % (A) 1 %; Eosinophils # (A) 0.2 k/uL (0-0.7); Eosinophils % (A) 2 %; HCT 41.1 % (39.0-53.0); Lymphocytes # (A) 1.5 k/uL (1.0-4.8); Lymphocytes % (A) 18 %; MCH 29.3 pg (25.0-35.0); MCHC 34.1 g/dL (31.0-37.0); MCV 85.8 fL (80.0-100.0); Mean Platelet Volume 7.2; Monocytes # (A) 0.5 k/uL (0-1.0); Monocytes % (A) 6 %; Neutrophils # (A) 5.9 k/uL (1.3-7.7); Neutrophils % (A) 72 %; Platelet Count 247 k/uL (150-450); RBC 4.79 m/uL (4.30-5.90); WBC 8.3 k/uL (3.8-10.6)
[2021-03-08 23:26] LABS: African American GFR (CKD) >90 (>60 ml/min/1.73 sqM); Anion Gap 10 mmol/L; Blood Urea Nitrogen 14 mg/dL (9-20); Calcium 9.6 mg/dL (8.4-10.2); Carbon Dioxide 22 mmol/L (22-30); Chloride 100 mmol/L (98-107); Glucose 259 mg/dL (74-99); Non-African American GFR(CKD) >90 (>60 ml/min/1.73 sqM); Potassium 4.1 mmol/L (3.5-5.1); Sodium 132 mmol/L (137-145)
[2021-03-08 23:54] LABS: Glucose,Whole Blood 256 mg/dL (75-99)
[2021-03-09] MEDS ORDERED: CYCLOBENZAPRINE 10 MG TAB PO ONE
[2021-03-09] MEDS ORDERED: HYDROmorphone 0.5 MG/0.5 ML SYRINGE IM STA (00:24)
[2021-03-09 00:38] VITALS: BP 107/74; PULSE 87; RESP 15
== END 2021-03-09 00:30 | disposition home or self-care (01) ==
LOC: EC 19:54
DX: M25.511 Pain in right shoulder (principal); E11.65 Type 2 diabetes mellitus with hyperglycemia; J45.909 Unspecified asthma, uncomplicated; I25.10 Atherosclerotic heart disease of native coronary artery without angina pectoris; K21.9 Gastro-esophageal reflux disease without esophagitis; E78.5 Hyperlipidemia, unspecified; I10 Essential (primary) hypertension; I25.2 Old myocardial infarction; Z79.4 Long term (current) use of insulin; Z79.01 Long term (current) use of anticoagulants; Z88.5 Allergy status to narcotic agent; Z88.6 Allergy status to analgesic agent; Z86.711 Personal history of pulmonary embolism; Z90.49 Acquired absence of other specified parts of digestive tract
CPT/HCPCS: 36415; 80048; 82009; 85025; 96372; 99283

== ENCOUNTER 2021-03-15 14:36 | Emergency (ER) | payer OTHER ==
[2021-03-15 14:41] VITALS: TEMP 98.3
[2021-03-15] MEDS ORDERED: HYDROmorphone 1 MG/ML 1 ML SYRINGE IM STA ×2 (15:08→16:40)
[2021-03-15] MEDS ORDERED: BACLOFEN 10 MG TAB PO STA (15:08)
--- NOTE | 2021-03-15 16:03 | XR ---
EXAMINATION TYPE: XR lumbar spine 2 or 3V DATE OF EXAM: 03/15/2021 CLINICAL HISTORY: Back pain, spinal nerve stimulator TECHNIQUE: Frontal, lateral, and oblique images of the lumbar spine are obtained. COMPARISON: Lumbar spine 10/28/2020 FINDINGS: Unchanged spinal nerve stimulator. Unchanged posterior lumbar fusion changes L3-4 and L5-S1 with inte rvertebral disc spacer at L3-4. No acute fracture or malalignment. Moderate degenerative changes most pronounced at L5-S1. Mild degenerative changes bilateral sacroilia c joints. Surgical clips overlie the right upper abdomen. IMPRESSION: 1. No acute fracture or dislocation is seen in the lumbar spine. 2. Unchanged spinal nerve stimulator. 3. Unchanged postsurgical changes of the lower lumbar spine.
--- NOTE | 2021-03-15 16:17 | ED ---
Back Pain HPI - General Chief Complaint: Back Pain/Injury Stated Complaint: R leg numbness Time Seen by Provider: 03/15/21 15:01 Source: patient, RN notes reviewed Limitations: no limitations - History of Present Illness Initial Comments: Patient is a 55-year-old male that presents to the emergency department complaining of low back pain. He notes he does have a pain stimulator is not working and has a left give outpatient procedure to get it fixed on Monday. He notes that he bent weird last night and had increasing pain. He came in to get symptomatic control. He notes that muscle relaxers and 1 shot of Dilaudid usually do the trick. He denied any other new symptoms or pain. He denied any saddle anesthesia bladder or bowel incontinence/retention. He denied any chest pain shortness of breath headache nausea vomiting diarrhea constipation fever fatigue chills - Related Data Home Medications Medication Instructions Recorded Confirmed Omeprazole [PriLOSEC] 20 mg PO BID 12/11/17 03/15/21 Gabapentin [Neurontin] 300 mg PO TID 10/12/19 03/15/21 INSULIN LISPRO (HumaLOG) [humaLOG] 10 unit SQ AC-TID 02/16/20 03/15/21 Methocarbamol [Robaxin-750] 750 mg PO TID 10/26/20 03/15/21 Atorvastatin [Lipitor] 40 mg PO HS 11/13/20 03/15/21 Apixaban [Eliquis] 5 mg PO BID 02/07/21 03/15/21 Diltiazem Cd [Cardizem Cd] 300 mg PO DAILY 02/07/21 03/15/21 Insulin Glargine,Hum.rec.anlog 30 unit SQ BID 02/07/21 03/15/21 [Basaglar Kwikpen U-100] oxyCODONE-APAP 7.5-325MG [Percocet 1 tab PO TID PRN 03/15/21 03/15/21 7.5-325 mg] Previous Rx's Medication Instructions Recorded lisinopriL [Zestril] 10 mg PO DAILY #30 tab 02/17/20 Isosorbide Mononitrate ER [Imdur] 30 mg PO DAILY #30 tab.er.24h 11/01/20 Metoprolol Tartrate [Lopressor] 75 mg PO BID #60 tab 11/01/20 Nitroglycerin Sl Tabs [Nitrostat] 0.4 mg SUBLINGUAL Q5M PRN #20 tab 11/01/20 Baclofen [Lioresal] 5 mg PO TID 7 Days #21 tablet 03/15/21 Allergies Allergy/AdvReac Type Severity Reaction Status Date / Time doxycycline Allergy Swelling Verified 03/15/21 14:41 ketorolac tromethamine Allergy Rash/Hives Verified 03/15/21 14:41 [From Toradol] morphine Allergy Rash/Hives Verified 03/15/21 14:41 metoclopramide HCl AdvReac Dystonic Verified 03/15/21 14:41 [From Reglan] Reaction prochlorperazine edisylate AdvReac Dystonic Verified 03/15/21 14:41 [From Compazine] Reaction prochlorperazine maleate AdvReac Dystonic Verified 03/15/21 14:41 [From Compazine] Reaction tramadol AdvReac Nausea & Verified 03/15/21 14:41 Vomiting Review of Systems ROS Statement: Those systems with pertinent positive or pertinent negative responses have been documented in the HPI. ROS Other: All systems not noted in ROS Statement are negative. Past Medical History Past Medical History: Asthma, Coronary Artery Disease (CAD), Chest Pain / Angina, Diabetes Mellitus, GERD/Reflux, GI Bleed, Hyperlipidemia, Hypertension, Myocardial Infarction ([place]), Mitral Valve Prolapse (MVP), Pulmonary Embolus (PE), Sleep Apnea/CPAP/BIPAP Additional Past Medical History / Comment(s): Asthmatic bronchitis-chronic, IDDM type II, neuropathy bilateral feet, lower and upper GI bleeds, PUD, diverticulitis, colectomy d/t benign mass/intusseption, BPH, renal cysts, nephrolithiais, UTI with sepsis, chronic back pain 2ndary to herniated lumbar discs/sciatica, JARED does not use his Cpap, MVP, murmur Last Myocardial Infarction Date:: 2011 History of Any Multi-Drug Resistant Organisms: MRSA Date of last positivie culture/infection: 2016 MDRO Source:: left axilla Past Surgical History: Appendectomy, Back Surgery, Cholecystectomy, Heart Catheterization, Hernia Repair Additional Past Surgical History / Comment(s): Lumbar decompression/fusion/laminectomy, spinal stimulator, T lift procedure, L in guinal hernia repair, multiple ESWLs/stents/double J caths, colonoscopy, 02/2020 colectomy, EGDs for food obstructions and dilations Past Anesthesia/Blood Transfusion Reactions: No Reported Reaction Past Psychological History: No Psychological Hx Reported Smoking Status: Never smoker Past Alcohol Use History: None Reported Past Drug Use History: None Reported - Past Family History Father Family Medical History: Chest Pain / Angina Additional Family Medical History / Comment(s): "lung problems" Mother Family Medical History: Cancer, Chest Pain / Angina, Congestive Heart Failure (CHF), Osteoarthritis (OA), Thyroid Disorder Additional Family Medical History / Comment(s): "female cancer" General Exam Limitations: no limitations General appearance: alert, in no apparent distress, obese Head exam: Present: atraumatic, normocephalic, normal inspection Eye exam: Present: normal appearance, PERRL, EOMI. Absent: scleral icterus, conjunctival injection, periorbital swelling Neck exam: Present: normal inspection Respiratory exam: Present: normal lung sounds bilaterally. Absent: respiratory distress, wheezes, rales, rhonchi, stridor Cardiovascular Exam: Present: regular rate, normal rhythm, normal heart sounds. Absent: systolic murmur, diastolic murmur, rubs, gallop, clicks GI/Abdominal exam: Present: soft, normal bowel sounds. Absent: distended, tenderness, guarding, rebound, rigid Extremities exam: Present: normal inspection, full ROM, normal capillary refill. Absent: tenderness, pedal edema, joint swelling, calf tenderness Neurological exam: Present: alert, oriented X3 Psychiatric exam: Present: normal affect, normal mood Skin exam: Present: warm, dry, intact, normal color. Absent: rash Course Vital Signs 03/15/21 03/15/21 14:37 16:53 Temperature 98.3 F Pulse Rate 115 H 119 H Respiratory 20 18 Rate Blood Pressure 149/99 141/93 O2 Sat by Pulse 99 96 Oximetry Medical Decision Making - Medical Decision Making 55-year-old male complaining of low back pain. X-ray lumbar spine, 1 mg of Dilaudid, 10 mg of baclofen ordered. X-ray imaging negative for any acute process. Baclofen will be sent to the patient's pharmacy. Case discussed with Dr. Gray, patient can discharge home. - Radiology Data Radiology results: report reviewed, image reviewed X-ray lumbar spine: No acute fracture dislocation is seen. Unchanged spinal nerve stimulator. Unchanged postsurgical changes of the lumbar spine. Disposition Clinical Impression: Low back pain, Right lumbar radiculopathy Disposition: HOME SELF-CARE Condition: Stable Instructions (If sedation given, give patient instructions): Acute Low Back Pain (ED) Additional Instructions: Please return to the Emergency Department if symptoms worsen or any other concerns. Follow-up with surgeon as planned. Take at home pain medications as prescribed. Is patient prescribed a controlled substance at d/c from ED?: No Referrals: Trav Muniz MD [Primary Care Provider] - 1-2 days Time of Disposition: 16:57
[2021-03-15 16:55] VITALS: BP 141/93; PULSE 119; RESP 18
== END 2021-03-15 17:13 | disposition home or self-care (01) ==
LOC: EC 14:36
DX: M54.16 Radiculopathy, lumbar region (principal); I10 Essential (primary) hypertension; E11.9 Type 2 diabetes mellitus without complications; E78.5 Hyperlipidemia, unspecified; I25.2 Old myocardial infarction; J45.909 Unspecified asthma, uncomplicated; G47.33 Obstructive sleep apnea (adult) (pediatric); I25.10 Atherosclerotic heart disease of native coronary artery without angina pectoris; K21.9 Gastro-esophageal reflux disease without esophagitis; N40.0 Benign prostatic hyperplasia without lower urinary tract symptoms; Z86.711 Personal history of pulmonary embolism; Z87.11 Personal history of peptic ulcer disease; Z87.440 Personal history of urinary (tract) infections; Z79.01 Long term (current) use of anticoagulants; Z79.4 Long term (current) use of insulin; Z79.899 Other long term (current) drug therapy; Z88.5 Allergy status to narcotic agent; Z88.8 Allergy status to other drugs, medicaments and biological substances; Z90.49 Acquired absence of other specified parts of digestive tract
CPT/HCPCS: 72100; 99283; 96372 ×2; J1170

== ENCOUNTER 2021-03-24 16:35 | Emergency (ER) | payer OTHER ==
--- NOTE | 2021-03-24 17:04 | ED ---
General Adult HPI - General Chief complaint: Abdominal Pain Stated complaint: kidney stones-revisit Time Seen by Provider: 03/24/21 16:41 Source: patient Mode of arrival: ambulatory Limitations: no limitations - History of Present Illness Initial comments: Dictation was produced using [employer] dictation software. please excuse any grammatical, word or spelling errors. Chief Complaint: 55-year-old male presents to emergency department for right- sided flank pain History of Present Illness: Patient is a 55-year-old male he is well-known to emergency department for multiple visitations secondary to kidney stones and acute on chronic back pain. He has history of kidney stone disease Dr. Gaitan of urology. Patient states that his symptoms are frequent. States that this episode started yesterday. States that he has colicky right-sided flank pain. States that he has associated nausea and he is unable to tolerate his daily medications which include is daily Percocet. Denies any abdominal pain. No diarrhea. He does complain of some urinary hesitancy. The ROS documented in this emergency department record has been reviewed and confirmed by me. Those systems with pertinent positive or negative responses have been documented in the HPI. All other systems are other negative and/or noncontributory. PHYSICAL EXAM: General Impression: Alert and oriented x3, not in acute distress HEENT: Normocephalic atraumatic, extra-ocular movements intact, pupils equal and reactive to light bilaterally, mucous membranes moist. Cardiovascular: Heart regular rate and rhythm Chest: Able to complete full sentences, no retractions, no tachypnea Abdomen: abdomen soft, non-tender, non-distended, no organomegaly Musculoskeletal: Pulses present and equal in all extremities, no peripheral edema Motor: no focal deficits noted Neurological: CN II-XII grossly intact, no focal motor or sensory deficits noted Skin: Intact with no visualized rashes Psych: Normal affect and mood ED course: 55-year-old male presents to the emergency department for right-sided flank pain. He has extensive history of kidney stones. Clinical presentation concerns during for symptomatic nephrolithiasis. Vital signs upon arrival shows heart rate of 121, rest of vital signs within acceptable limits. Patient reports that his symptoms are classic of his kidney stone presentations. No indication for CT imaging at this time. Most recent CT from August of this year shows no acute processes. No renal stones noted. To evaluation obtained. CBC within acceptable limits. Metabolic panel within acceptable limits. Patient has some degree of acidosis normally. Urinalysis shows greater than 182 red blood cells abdominal bladder and ultrasound shows no hydronephrosis. He is reevaluated at bedside at 6:20 PM found to be in stable medical condition. Patient is agreeable to discharge. Clinical presentation likely secondary to the symptomatic nephrolithiasis. He is advised follow-up with urologist. - Related Data Home Medications Medication Instructions Recorded Confirmed Omeprazole [PriLOSEC] 20 mg PO BID 12/11/17 03/15/21 Gabapentin [Neurontin] 300 mg PO TID 10/12/19 03/15/21 INSULIN LISPRO (HumaLOG) [humaLOG] 10 unit SQ AC-TID 02/16/20 03/15/21 Methocarbamol [Robaxin-750] 750 mg PO TID 10/26/20 03/15/21 Atorvastatin [Lipitor] 40 mg PO HS 11/13/20 03/15/21 Apixaban [Eliquis] 5 mg PO BID 02/07/21 03/15/21 Diltiazem Cd [Cardizem Cd] 300 mg PO DAILY 02/07/21 03/15/21 Insulin Glargine,Hum.rec.anlog 30 unit SQ BID 02/07/21 03/15/21 [Basaglar Bre U-100] oxyCODONE-APAP 7.5-325MG [Percocet 1 tab PO TID PRN 03/15/21 03/15/21 7.5-325 mg] Previous Rx's Medication Instructions Recorded lisinopriL [Zestril] 10 mg PO DAILY #30 tab 02/17/20 Isosorbide Mononitrate ER [Imdur] 30 mg PO DAILY #30 tab.er.24h 11/01/20 Metoprolol Tartrate [Lopressor] 75 mg PO BID #60 tab 11/01/20 Nitroglycerin Sl Tabs [Nitrostat] 0.4 mg SUBLINGUAL Q5M PRN #20 tab 11/01/20 Baclofen [Lioresal] 5 mg PO TID 7 Days #21 tablet 03/15/21 Ondansetron Odt [Zofran Odt] 4 mg PO Q8HR PRN #12 tab 03/24/21 Allergies Allergy/AdvReac Type Severity Reaction Status Date / Time doxycycline Allergy Swelling Verified 03/24/21 16:36 ketorolac tromethamine Allergy Rash/Hives Verified 03/24/21 16:36 [From Toradol] morphine Allergy Rash/Hives Verified 03/24/21 16:36 metoclopramide HCl AdvReac Dystonic Verified 03/24/21 16:36 [From Reglan] Reaction prochlorperazine edisylate AdvReac Dystonic Verified 03/24/21 16:36 [From Compazine] Reaction prochlorperazine maleate AdvReac Dystonic Verified 03/24/21 16:36 [From Compazine] Reaction tramadol AdvReac Nausea & Verified 03/24/21 16:36 Vomiting Review of Systems ROS Statement: Those systems with pertinent positive or pertinent negative responses have been documented in the HPI. ROS Other: All systems not noted in ROS Statement are negative. Past Medical History Past Medical History: Asthma, Coronary Artery Disease (CAD), Chest Pain / Angina, Diabetes Mellitus, GERD/Reflux, GI Bleed, Hyperlipidemia, Hypertension, Myocardial Infarction ([place]), Mitral Valve Prolapse (MVP), Pulmonary Embolus (PE), Sleep Apnea/CPAP/BIPAP Additional Past Medical History / Comment(s): Asthmatic bronchitis-chronic, IDDM type II, neuropathy bilateral feet, lower and upper GI bleeds, PUD, diverticulitis, colectomy d/t benign mass/intusseption, BPH, renal cysts, nephrolithiais, UTI with sepsis, chronic back pain 2ndary to herniated lumbar discs/sciatica, JARED does not use his Cpap, MVP, murmur Last Myocardial Infarction Date:: 2011 History of Any Multi-Drug Resistant Organisms: MRSA Date of last positivie culture/infection: 2015 MDRO Source:: left axilla Past Surgical History: Appendectomy, Back Surgery, Cholecystectomy, Heart Catheterization, Hernia Repair Additional Past Surgical History / Comment(s): Lumbar decompression/fusion/laminectomy, spinal stimulator, T lift procedure, L inguinal hernia repair, multiple ESWLs/stents/double J caths, colonoscopy, 02/2020 colectomy, EGDs for food obstructions and dilations Past Anesthesia/Blood Transfusion Reactions: No Reported Reaction Past Psychological History: No Psychological Hx Reported Smoking Status: Never smoker Past Alcohol Use History: None Reported Past Drug Use History: None Reported - Past Family History Father Family Medical History: Chest Pain / Angina Additional Family Medical History / Comment(s): "lung problems" Mother Family Medical History: Cancer, Chest Pain / Angina, Congestive Heart Failure (CHF), Osteoarthritis (OA), Thyroid Disorder Additional Family Medical History / Comment(s): "female cancer" General Exam Limitations: no limitations Course Vital Signs 03/24/21 16:37 Temperature 98.8 F Pulse Rate 121 H Respiratory 20 Rate Blood Pressure 182/107 O2 Sat by Pulse 98 Oximetry Medical Decision Making - Lab Data Result diagrams: 03/24/21 17:02 03/24/21 17:02 Lab Results 03/24/21 03/24/21 03/24/21 Range/Units 17:02 17:02 17:06 WBC 8.0 (3.8-10.6) k/uL RBC 5.11 (4.30-5.90) m/uL Hgb 14.9 (13.0-17.5) gm/dL Hct 42.2 (39.0-53.0) % MCV 82.5 (80.0-100.0) fL MCH 29.1 (25.0-35.0) pg MCHC 35.2 (31.0-37.0) g/dL RDW 14.1 (11.5-15.5) % Plt Count 308 (150-450) k/uL MPV 7.0 Neutrophils % 70 % Lymphocytes % 18 % Monocytes % 5 % Eosinophils % 4 % Basophils % 1 % Neutrophils # 5.6 (1.3-7.7) k/uL Lymphocytes # 1.5 (1.0-4.8) k/uL Monocytes # 0.4 (0-1.0) k/uL Eosinophils # 0.3 (0-0.7) k/uL Basophils # 0.1 (0-0.2) k/uL Sodium 135 L (137-145) mmol/L Potassium 4.3 (3.5-5.1) mmol/L Chloride 103 (98-107) mmol/L Carbon Dioxide 19 L (22-30) mmol/L Anion Gap 13 mmol/L BUN 12 (9-20) mg/dL Creatinine 0.54 L (0.66-1.25) mg/dL Est GFR (CKD-EPI)AfAm >90 (>60 ml/min/1.73 sqM) Est GFR (CKD-EPI)NonAf >90 (>60 ml/min/1.73 sqM) Glucose 236 H (74-99) mg/dL Calcium 10.2 (8.4-10.2) mg/dL Total Bilirubin 0.5 (0.2-1.3) mg/dL AST 29 (17-59) U/L ALT 60 H (4-49) U/L Alkaline Phosphatase 138 H (38-126) U/L Total Protein 7.3 (6.3-8.2) g/dL Albumin 4.5 (3.5-5.0) g/dL Lipase 182 (23-300) U/L Urine Color Yellow Urine Appearance Clear (Clear) Urine pH 5.0 (5.0-8.0) Ur Specific [place] 1.035 (1.001-1.035) Urine Protein Negative (Negative) Urine Glucose (UA) 4+ H (Negative) Urine Ketones Trace H (Negative) Urine Blood Large H (Negative) Urine Nitrite Negative (Negative) Urine Bilirubin Negative (Negative) Urine Urobilinogen <2.0 (<2.0) mg/dL Ur Leukocyte Esterase Negative (Negative) Urine RBC >182 H (0-5) /hpf Urine WBC 1 (0-5) /hpf Ur Squamous Epith Cells <1 (0-4) /hpf Urine Mucus Rare H (None) /hpf Disposition Clinical Impression: Kidney stone Disposition: HOME SELF-CARE Condition: Good Prescriptions: Ondansetron Odt [Zofran Odt] 4 mg PO Q8HR PRN #12 tab PRN Reason: Nausea Is patient prescribed a controlled substance at d/c from ED?: No Referrals: Bogdan Chavez MD [STAFF PHYSICIAN] - 1-2 days
[2021-03-24 17:14] LABS: Basophils # (A) 0.1 k/uL (0-0.2); Basophils % (A) 1 %; Eosinophils # (A) 0.3 k/uL (0-0.7); Eosinophils % (A) 4 %; HCT 42.2 % (39.0-53.0); HGB 14.9 gm/dL (13.0-17.5); Lymphocytes # (A) 1.5 k/uL (1.0-4.8); Lymphocytes % (A) 18 %; MCH 29.1 pg (25.0-35.0); MCHC 35.2 g/dL (31.0-37.0); MCV 82.5 fL (80.0-100.0); Monocytes # (A) 0.4 k/uL (0-1.0); Monocytes % (A) 5 %; Neutrophils # (A) 5.6 k/uL (1.3-7.7); Neutrophils % (A) 70 %; Platelet Count 308 k/uL (150-450); RBC 5.11 m/uL (4.30-5.90); RDW 14.1 % (11.5-15.5)
[2021-03-24 17:25] LABS: Chloride 103 mmol/L (98-107)
[2021-03-24 17:25] LABS: Appearance,Urine Clear (Clear); Bilirubin,Urine Negative (Negative); Blood,Urine Large (Negative); Color,Urine Yellow; Glucose,Urine (UA) 4+ (Negative); Ketones,Urine Trace (Negative); Leukocyte Esterase,Urine Negative (Negative); Mucus,Urine Rare /hpf; Nitrite,Urine Negative (Negative); Protein,Urine Negative (Negative); RBC,Urine >182 /hpf (0-5); Specific Gravity,Urine 1.035 (1.001-1.035); Squamous Epithelial Cell,Urine <1 /hpf (0-4); Urobilinogen,Urine <2.0 mg/dL (<2.0); WBC,Urine 1 /hpf (0-5)
[2021-03-24 17:28] LABS: ALT 60 U/L (4-49); AST 29 U/L (17-59); African American GFR (CKD) >90 (>60 ml/min/1.73 sqM); Albumin 4.5 g/dL (3.5-5.0); Alkaline Phosphatase 138 U/L (38-126); Anion Gap 13 mmol/L; Blood Urea Nitrogen 12 mg/dL (9-20); Calcium 10.2 mg/dL (8.4-10.2); Carbon Dioxide 19 mmol/L (22-30); Glucose 236 mg/dL (74-99); Lipase 182 U/L (23-300); Non-African American GFR(CKD) >90 (>60 ml/min/1.73 sqM); Potassium 4.3 mmol/L (3.5-5.1); Sodium 135 mmol/L (137-145); Total Bilirubin 0.5 mg/dL (0.2-1.3); Total Protein 7.3 g/dL (6.3-8.2)
[2021-03-24] MEDS ORDERED: HYDROmorphone 0.5 MG/0.5 ML SYRINGE IVP STA ×2 (17:54→18:25)
[2021-03-24] MEDS ORDERED: ONDANSETRON 4 MG/2 ML VIAL IVP STA (17:55)
--- NOTE | 2021-03-24 18:12 | US ---
EXAMINATION TYPE: US kidneys/renal and bladder DATE OF EXAM: 03/24/2021 COMPARISON: CT 08/31/2020 US 02/07/2021 CLINICAL HISTORY: flank pain. Right flank pain EXAM MEASUREMENTS: Right Kidney: 13.6 x 5.8 x 6.7 cm Left Kidney: 14.2 x 6.8 x 6.8 cm Right Kidney: No hydronephrosis. Cystic area measuring 3.8 x 3.9 x 4.1 cm Left Kidney: No hydronephrosis or masses seen Bladder: wnl Bilateral Jets seen: no There is no evidence for hydronephrosis at this point in time. No nephrolithiasis is seen. No james s are identified. The urinary bladder is anechoic. Bilateral ureteral jets are seen. IMPRESSION: There is right renal cortical cysts. No evidence of solid renal mass or obstruction. No evidence of b ladder mass.
[2021-03-24 18:37] VITALS: BP 179/88; PULSE 107; RESP 19; TEMP 98.4
== END 2021-03-24 18:42 | disposition home or self-care (01) ==
LOC: EC 16:35
DX: N20.0 Calculus of kidney (principal); I10 Essential (primary) hypertension; I25.10 Atherosclerotic heart disease of native coronary artery without angina pectoris; I25.2 Old myocardial infarction; I34.1 Nonrheumatic mitral (valve) prolapse; E11.9 Type 2 diabetes mellitus without complications; E78.5 Hyperlipidemia, unspecified; K21.9 Gastro-esophageal reflux disease without esophagitis; J45.909 Unspecified asthma, uncomplicated; Z79.4 Long term (current) use of insulin; Z79.01 Long term (current) use of anticoagulants; Z88.1 Allergy status to other antibiotic agents; Z88.5 Allergy status to narcotic agent; Z86.711 Personal history of pulmonary embolism; Z87.440 Personal history of urinary (tract) infections; Z87.11 Personal history of peptic ulcer disease; Z90.49 Acquired absence of other specified parts of digestive tract; Z79.899 Other long term (current) drug therapy
CPT/HCPCS: 99284; 96374; 96375; 96376; 36415; 80053; 83690; 85025; 81001; 76770; J2405; J1170

== ENCOUNTER 2021-04-04 14:48 | Emergency (ER) | payer OTHER ==
[2021-04-04 15:30] VITALS: TEMP 98.2
[2021-04-04 15:30] LABS: Glucose,Whole Blood 312 mg/dL (75-99)
[2021-04-04] MEDS ORDERED: SODIUM CHLORIDE 0.9% 1,000 ML IV STA (17:15)
[2021-04-04] MEDS ORDERED: ONDANSETRON 4 MG/2 ML VIAL IVP STA (17:15)
--- NOTE | 2021-04-04 17:20 | ED ---
General Adult HPI - General Chief complaint: Recheck/Abnormal Lab/Rx Stated complaint: high Blood sugar Time Seen by Provider: 04/04/21 17:04 Source: patient, RN notes reviewed, old records reviewed Mode of arrival: ambulatory Limitations: no limitations - History of Present Illness Initial comments: 55-year-old anxious and hyperventilating white male presents to the emergency room with complaints of elevated blood sugar at home. He states that it was reading high this morning and he gave himself his insulin and an additional 12 units of regular. He states at lunch time he checked it again it was reading high again he gave himself an additional 12 units and came to the emergency room. He was hospitalized for DKA with altered mental status earlier in the year and he is fearful that he might be going back into DKA. He states that his vision seems blurry and he feels his heart racing. Patient was encouraged to slow his breathing down. He states that he's been urinating more often but denies any dysuria. He denies any recent sick contacts or fevers. He states he has nausea but no vomiting or diarrhea. Patient is also complaining of increased chronic back pain. -: days(s) (1) - Related Data Home Medications Medication Instructions Recorded Confirmed Omeprazole [PriLOSEC] 20 mg PO BID 12/11/17 03/15/21 Gabapentin [Neurontin] 300 mg PO TID 10/12/19 03/15/21 INSULIN LISPRO (HumaLOG) [humaLOG] 10 unit SQ AC-TID 02/16/20 03/15/21 Methocarbamol [Robaxin-750] 750 mg PO TID 10/26/20 03/15/21 Atorvastatin [Lipitor] 40 mg PO HS 11/13/20 03/15/21 Apixaban [Eliquis] 5 mg PO BID 02/07/21 03/15/21 Diltiazem Cd [Cardizem Cd] 300 mg PO DAILY 02/07/21 03/15/21 Insulin Glargine,Hum.rec.anlog 30 unit SQ BID 02/07/21 03/15/21 [Basaglar Kwikpen U-100] oxyCODONE-APAP 7.5-325MG [Percocet 1 tab PO TID PRN 03/15/21 03/15/21 7.5-325 mg] Previous Rx's Medication Instructions Recorded lisinopriL [Zestril] 10 mg PO DAILY #30 tab 02/17/20 Isosorbide Mononitrate ER [Imdur] 30 mg PO DAILY #30 tab.er.24h 11/01/20 Metoprolol Tartrate [Lopressor] 75 mg PO BID #60 tab 11/01/20 Nitroglycerin Sl Tabs [Nitrostat] 0.4 mg SUBLINGUAL Q5M PRN #20 tab 11/01/20 Baclofen [Lioresal] 5 mg PO TID 7 Days #21 tablet 03/15/21 Ondansetron Odt [Zofran Odt] 4 mg PO Q8HR PRN #12 tab 03/24/21 Allergies Allergy/AdvReac Type Severity Reaction Status Date / Time doxycycline Allergy Swelling Verified 04/04/21 15:30 ketorolac tromethamine Allergy Rash/Hives Verified 04/04/21 15:30 [From Toradol] morphine Allergy Rash/Hives Verified 04/04/21 15:30 metoclopramide HCl AdvReac Dystonic Verified 04/04/21 15:30 [From Reglan] Reaction prochlorperazine edisylate AdvReac Dystonic Verified 04/04/21 15:30 [From Compazine] Reaction prochlorperazine maleate AdvReac Dystonic Verified 04/04/21 15:30 [From Compazine] Reaction tramadol AdvReac Nausea & Verified 04/04/21 15:30 Vomiting Review of Systems ROS Statement: Those systems with pertinent positive or pertinent negative responses have been documented in the HPI. ROS Other: All systems not noted in ROS Statement are negative. Past Medical History Past Medical History: Asthma, Coronary Artery Disease (CAD), Chest Pain / Angina, Diabetes Mellitus, GERD/Reflux, GI Bleed, Hyperlipidemia, Hypertension, Myocardial Infarction ([place]), Mitral Valve Prolapse (MVP), Pulmonary Embolus ([place]), Sleep Apnea/CPAP/BIPAP Additional Past Medical History / Comment(s): Asthmatic bronchitis-chronic, IDDM type II, neuropathy bilateral feet, lower and upper GI bleeds, PUD, diverticulitis, colectomy d/t benign mass/intusseption, BPH, renal cysts, nephrolithiais, UTI with sepsis, chronic back pain 2ndary to herniated lumbar discs/sciatica, JARED does not use his Cpap, MVP, murmur Last Myocardial Infarction Date:: 2011 History of Any Multi-Drug Resistant Organisms: MRSA Date of last positivie culture/infection: 2015 MDRO Source:: left axilla Past Surgical History: Appendectomy, Back Surgery, Cholecystectomy, Heart Catheterization, Hernia Repair Additional Past Surgical History / Comment(s): Lumbar decompression/fusion/laminectomy, spinal stimulator, T lift procedure, L inguinal hernia repair, multiple ESWLs/stents/double J caths, colonoscopy, 02/2020 colectomy, EGDs for food obstructions and dilations Past Anesthesia/Blood Transfusion Reactions: No Reported Reaction Past Psychological History: No Psychological Hx Reported Smoking Status: Never smoker Past Alcohol Use History: None Reported Past Drug Use History: None Reported - Past Family History Father Family Medical History: Chest Pain / Angina Additional Family Medical History / Comment(s): "lung problems" Mother Family Medical History: Cancer, Chest Pain / Angina, Congestive Heart Failure (CHF), Osteoarthritis (OA), Thyroid Disorder Additional Family Medical History / Comment(s): "female cancer" General Exam Limitations: no limitations General appearance: alert, in no apparent distress Head exam: Present: atraumatic, normocephalic, normal inspection Eye exam: Present: normal appearance, EOMI. Absent: periorbital swelling, periorbital tenderness ENT exam: Present: normal exam, normal oropharynx, mucous membranes moist Neck exam: Present: normal inspection, full ROM. Absent: tenderness, meningismus, lymphadenopathy Respiratory exam: Present: normal lung sounds bilaterally. Absent: respiratory distress, wheezes, rales, rhonchi, stridor Cardiovascular Exam: Present: tachycardia. Absent: JVD GI/Abdominal exam: Present: soft, normal bowel sounds. Absent: distended, tenderness, guarding, rebound, rigid Back exam: Present: normal inspection, full ROM. Absent: tenderness, CVA tenderness (R), CVA tenderness (L) Neurological exam: Present: alert, oriented X3 Psychiatric exam: Present: normal affect, normal mood, anxious Skin exam: Present: warm, dry, intact, normal color. Absent: rash, cyanosis, diaphoretic, erythema, petechiae, pallor, mottled Course Vital Signs 04/04/21 15:28 Temperature 98.2 F Pulse Rate 122 H Respiratory 18 Rate Blood Pressure 181/93 O2 Sat by Pulse 98 Oximetry EKG Findings - EKG Results: EKG: sinus rhythm (Ventricular rate of 113, [place] interval 0.146, QRS of 0.110, QTC of 0.480), not changed from: (02/24/21) Medical Decision Making - Medical Decision Making Blood glucose is 280, lactic acid is normal at 2.0, his troponin is negative at 0.012. EKG shows ventricular rate of 113 with normal sinus rhythm. UA shows 4+ glucose with no ketones. Patient states his vision is improved. Patient was given Percocet for his chronic low back pain. Case discussed with Dr. Quintanilla was agreeable to discharging patient home on his primary care doctor. - Lab Data Result diagrams: 04/04/21 17:34 04/04/21 17:34 Lab Results 04/04/21 04/04/21 04/04/21 Range/Units 15:27 17:34 17:34 WBC 6.8 (3.8-10.6) k/uL RBC 5.10 (4.30-5.90) m/uL Hgb 14.3 (13.0-17.5) gm/dL Hct 43.6 (39.0-53.0) % MCV 85.6 (80.0-100.0) fL MCH 28.1 (25.0-35.0) pg MCHC 32.9 (31.0-37.0) g/dL RDW 13.7 (11.5-15.5) % Plt Count 279 (150-450) k/uL MPV 7.3 Neutrophils % 64 % Lymphocytes % 22 % Monocytes % 5 % Eosinophils % 6 % Basophils % 1 % Neutrophils # 4.4 (1.3-7.7) k/uL Lymphocytes # 1.5 (1.0-4.8) k/uL Monocytes # 0.3 (0-1.0) k/uL Eosinophils # 0.4 (0-0.7) k/uL Basophils # 0.1 (0-0.2) k/uL Sodium (137-145) mmol/L Potassium (3.5-5.1) mmol/L Chloride (98-107) mmol/L Carbon Dioxide (22-30) mmol/L Anion Gap mmol/L BUN (9-20) mg/dL Creatinine (0.66-1.25) mg/dL Est GFR (CKD-EPI)AfAm (>60 ml/min/1.73 sqM) Est GFR (CKD-EPI)NonAf (>60 ml/min/1.73 sqM) Glucose (74-99) mg/dL POC Glucose (mg/dL) 312 H (75-99) mg/dL POC Glu C 40A Crew Chief ID Rossy Leal Plasma Lactic Acid Edd (0.7-2.0) mmol/L Calcium (8.4-10.2) mg/dL Magnesium (1.6-2.3) mg/dL Total Bilirubin (0.2-1.3) mg/dL AST (17-59) U/L ALT (4-49) U/L Alkaline Phosphatase (38-126) U/L Troponin I (0.000-0.034) ng/mL Total Protein (6.3-8.2) g/dL Albumin (3.5-5.0) g/dL Amylase (30-110) U/L Lipase (23-300) U/L Urine Color Yellow Urine Appearance Clear (Clear) Urine pH 5.0 (5.0-8.0) Ur Specific [place] 1.040 H (1.001-1.035) Urine Protein Negative (Negative) Urine Glucose (UA) 4+ H (Negative) Urine Ketones Negative (Negative) Urine Blood Negative (Negative) Urine Nitrite Negative (Negative) Urine Bilirubin Negative (Negative) Urine Urobilinogen <2.0 (<2.0) mg/dL Ur Leukocyte Esterase Negative (Negative) Influenza Type A (PCR) (Not Detectd) Influenza Type B (PCR) (Not Detectd) RSV (PCR) (Not Detectd) SARS-CoV-2 (PCR) (Not Detectd) 04/04/21 04/04/21 04/04/21 Range/Units 17:34 17:34 17:34 WBC (3.8-10.6) k/uL RBC (4.30-5.90) m/uL Hgb (13.0-17.5) gm/dL Hct (39.0-53.0) % MCV (80.0-100.0) fL MCH (25.0-35.0) pg MCHC (31.0-37.0) g/dL RDW (11.5-15.5) % Plt Count (150-450) k/uL MPV Neutrophils % % Lymphocytes % % Monocytes % % Eosinophils % % Basophils % % Neutrophils # (1.3-7.7) k/uL Lymphocytes # (1.0-4.8) k/uL Monocytes # (0-1.0) k/uL Eosinophils # (0-0.7) k/uL Basophils # (0-0.2) k/uL Sodium 135 L (137-145) mmol/L Potassium 4.2 (3.5-5.1) mmol/L Chloride 105 (98-107) mmol/L Carbon Dioxide 17 L (22-30) mmol/L Anion Gap 13 mmol/L BUN 11 (9-20) mg/dL Creatinine 0.49 L (0.66-1.25) mg/dL Est GFR (CKD-EPI)AfAm >90 (>60 ml/min/1.73 sqM) Est GFR (CKD-EPI)NonAf >90 (>60 ml/min/1.73 sqM) Glucose 280 H (74-99) mg/dL POC Glucose (mg/dL) (75-99) mg/dL POC Glu C 40A Crew Chief ID Plasma Lactic Acid Edd 2.0 (0.7-2.0) mmol/L Calcium 9.7 (8.4-10.2) mg/dL Magnesium 2.0 (1.6-2.3) mg/dL Total Bilirubin 0.5 (0.2-1.3) mg/dL AST 25 (17-59) U/L ALT 33 (4-49) U/L Alkaline Phosphatase 143 H (38-126) U/L Troponin I <0.012 (0.000-0.034) ng/mL Total Protein 7.2 (6.3-8.2) g/dL Albumin 4.3 (3.5-5.0) g/dL Amylase 61 (30-110) U/L Lipase 125 (23-300) U/L Urine Color Urine Appearance (Clear) Urine pH (5.0-8.0) Ur Specific [place] (1.001-1.035) Urine Protein (Negative) Urine Glucose (UA) (Negative) Urine Ketones (Negative) Urine Blood (Negative) Urine Nitrite (Negative) Urine Bilirubin (Negative) Urine Urobilinogen (<2.0) mg/dL Ur Leukocyte Esterase (Negative) Influenza Type A (PCR) (Not Detectd) Influenza Type B (PCR) (Not Detectd) RSV (PCR) (Not Detectd) SARS-CoV-2 (PCR) (Not Detectd) 04/04/21 Range/Units 17:34 WBC (3.8-10.6) k/uL RBC (4.30-5.90) m/uL Hgb (13.0-17.5) gm/dL Hct (39.0-53.0) % MCV (80.0-100.0) fL MCH (25.0-35.0) pg MCHC (31.0-37.0) g/dL RDW (11.5-15.5) % Plt Count (150-450) k/uL MPV Neutrophils % % Lymphocytes % % Monocytes % % Eosinophils % % Basophils % % Neutrophils # (1.3-7.7) k/uL Lymphocytes # (1.0-4.8) k/uL Monocytes # (0-1.0) k/uL Eosinophils # (0-0.7) k/uL Basophils # (0-0.2) k/uL Sodium (137-145) mmol/L Potassium (3.5-5.1) mmol/L Chloride (98-107) mmol/L Carbon Dioxide (22-30) mmol/L Anion Gap mmol/L BUN (9-20) mg/dL Creatinine (0.66-1.25) mg/dL Est GFR (CKD-EPI)AfAm (>60 ml/min/1.73 sqM) Est GFR (CKD-EPI)NonAf (>60 ml/min/1.73 sqM) Glucose (74-99) mg/dL POC Glucose (mg/dL) (75-99) mg/dL POC Glu C 40A Crew Chief ID Plasma Lactic Acid Edd (0.7-2.0) mmol/L Calcium (8.4-10.2) mg/dL Magnesium (1.6-2.3) mg/dL Total Bilirubin (0.2-1.3) mg/dL AST (17-59) U/L ALT (4-49) U/L Alkaline Phosphatase (38-126) U/L Troponin I (0.000-0.034) ng/mL Total Protein (6.3-8.2) g/dL Albumin (3.5-5.0) g/dL Amylase (30-110) U/L Lipase (23-300) U/L Urine Color Urine Appearance (Clear) Urine pH (5.0-8.0) Ur Specific [place] (1.001-1.035) Urine Protein (Negative) Urine Glucose (UA) (Negative) Urine Ketones (Negative) Urine Blood (Negative) Urine Nitrite (Negative) Urine Bilirubin (Negative) Urine Urobilinogen (<2.0) mg/dL Ur Leukocyte Esterase (Negative) Influenza Type A (PCR) Not Detected (Not Detectd) Influenza Type B (PCR) Not Detected (Not Detectd) RSV (PCR) Not Detected (Not Detectd) SARS-CoV-2 (PCR) Not Detected (Not Detectd) Disposition Clinical Impression: Hyperglycemia, Low back pain Disposition: HOME SELF-CARE Condition: Good Additional Instructions: Continue taking your medications as previously prescribed. Follow-up with the primary care doctor in 1 week. Return to the emergency room with any new or worsening symptoms. Is patient prescribed a controlled substance at d/c from ED?: No Referrals: Trav Muniz MD [Primary Care Provider] - 1-2 days Time of Disposition: 19:01
[2021-04-04 17:50] LABS: Basophils # (A) 0.1 k/uL (0-0.2); Basophils % (A) 1 %; Eosinophils # (A) 0.4 k/uL (0-0.7); Eosinophils % (A) 6 %; HCT 43.6 % (39.0-53.0); HGB 14.3 gm/dL (13.0-17.5); Lymphocytes # (A) 1.5 k/uL (1.0-4.8); Lymphocytes % (A) 22 %; MCH 28.1 pg (25.0-35.0); MCHC 32.9 g/dL (31.0-37.0); MCV 85.6 fL (80.0-100.0); Mean Platelet Volume 7.3; Monocytes # (A) 0.3 k/uL (0-1.0); Monocytes % (A) 5 %; Neutrophils # (A) 4.4 k/uL (1.3-7.7); Neutrophils % (A) 64 %; Platelet Count 279 k/uL (150-450); RDW 13.7 % (11.5-15.5); WBC 6.8 k/uL (3.8-10.6)
[2021-04-04 17:51] LABS: Appearance,Urine Clear (Clear); Bilirubin,Urine Negative (Negative); Blood,Urine Negative (Negative); Color,Urine Yellow; Glucose,Urine (UA) 4+ (Negative); Ketones,Urine Negative (Negative); Leukocyte Esterase,Urine Negative (Negative); Nitrite,Urine Negative (Negative); Protein,Urine Negative (Negative); Urobilinogen,Urine <2.0 mg/dL (<2.0)
[2021-04-04 18:04] LABS: ALT 33 U/L (4-49); AST 25 U/L (17-59); African American GFR (CKD) >90 (>60 ml/min/1.73 sqM); Albumin 4.3 g/dL (3.5-5.0); Alkaline Phosphatase 143 U/L (38-126); Amylase 61 U/L (30-110); Anion Gap 13 mmol/L; Blood Urea Nitrogen 11 mg/dL (9-20); Calcium 9.7 mg/dL (8.4-10.2); Carbon Dioxide 17 mmol/L (22-30); Chloride 105 mmol/L (98-107); Glucose 280 mg/dL (74-99); Lipase 125 U/L (23-300); Non-African American GFR(CKD) >90 (>60 ml/min/1.73 sqM); Potassium 4.2 mmol/L (3.5-5.1); Sodium 135 mmol/L (137-145); Total Bilirubin 0.5 mg/dL (0.2-1.3); Total Protein 7.2 g/dL (6.3-8.2)
[2021-04-04] MEDS ORDERED: oxyCODONE-APAP 5-325MG 1 EACH TAB PO STA (18:52)
[2021-04-04 19:23] VITALS: BP 156/119; PULSE 98; RESP 22
== END 2021-04-04 19:23 | disposition home or self-care (01) ==
LOC: EC 14:48
DX: E11.65 Type 2 diabetes mellitus with hyperglycemia (principal); M54.5 Low back pain; I10 Essential (primary) hypertension; J45.909 Unspecified asthma, uncomplicated; E78.5 Hyperlipidemia, unspecified; G47.33 Obstructive sleep apnea (adult) (pediatric); E11.40 Type 2 diabetes mellitus with diabetic neuropathy, unspecified; G89.29 Other chronic pain; I25.10 Atherosclerotic heart disease of native coronary artery without angina pectoris; I25.2 Old myocardial infarction; G47.30 Sleep apnea, unspecified; K21.9 Gastro-esophageal reflux disease without esophagitis; N40.0 Benign prostatic hyperplasia without lower urinary tract symptoms; Z20.822 Contact with and (suspected) exposure to COVID-19; Z86.711 Personal history of pulmonary embolism; Z87.11 Personal history of peptic ulcer disease; Z87.440 Personal history of urinary (tract) infections; Z79.01 Long term (current) use of anticoagulants; Z79.4 Long term (current) use of insulin; Z88.5 Allergy status to narcotic agent; Z88.8 Allergy status to other drugs, medicaments and biological substances; Z90.49 Acquired absence of other specified parts of digestive tract
CPT/HCPCS: 36415; 80053; 81003; 82009; 82150; 83605; 83690; 83735; 84484; 85025; 87636; 93005; 99284

== ENCOUNTER 2021-04-27 10:19 | Emergency (ER) | payer OTHER ==
[2021-04-27 10:30] VITALS: PULSE 115; RESP 18; TEMP 99
[2021-04-27] MEDS ORDERED: HYDROmorphone 1 MG/ML 1 ML SYRINGE IVP STA (10:37)
[2021-04-27] MEDS ORDERED: ORPHENADRINE 30 MG/ML 2 ML VIAL IM STA (10:37)
[2021-04-27 11:17] VITALS: BP 161/111
[2021-04-27] MEDS ORDERED: HYDROmorphone 1 MG/ML 1 ML SYRINGE IM STA (11:42)
--- NOTE | 2021-04-27 11:45 | ED ---
Back Pain HPI - General Chief Complaint: Back Pain/Injury Stated Complaint: back pain Time Seen by Provider: 04/27/21 10:30 Source: patient, RN notes reviewed Limitations: physical limitation - History of Present Illness Initial Comments: Patient is a 55-year-old male that presents emergency department complaining of chronic back pain. He notes he has follow-up with his pain medicine specialist tomorrow but was having significant pain so came in for temporary symptomatically. He denied any other issues or complaints. He was otherwise well-appearing. She denied any injury or trauma. He denied any chest pain first breath headache nausea vomiting diarrhea constipation fever fatigue chills. - Related Data Home Medications Medication Instructions Recorded Confirmed Omeprazole [PriLOSEC] 20 mg PO BID 12/11/17 03/15/21 Gabapentin [Neurontin] 300 mg PO TID 10/12/19 03/15/21 INSULIN LISPRO (HumaLOG) [humaLOG] 10 unit SQ AC-TID 02/16/20 03/15/21 Methocarbamol [Robaxin-750] 750 mg PO TID 10/26/20 03/15/21 Atorvastatin [Lipitor] 40 mg PO HS 11/13/20 03/15/21 Apixaban [Eliquis] 5 mg PO BID 02/07/21 03/15/21 Diltiazem Cd [Cardizem Cd] 300 mg PO DAILY 02/07/21 03/15/21 Insulin Glargine,Hum.rec.anlog 30 unit SQ BID 02/07/21 03/15/21 [Basaglar Kwikpen U-100] oxyCODONE-APAP 7.5-325MG [Percocet 1 tab PO TID PRN 03/15/21 03/15/21 7.5-325 mg] Previous Rx's Medication Instructions Recorded lisinopriL [Zestril] 10 mg PO DAILY #30 tab 02/17/20 Isosorbide Mononitrate ER [Imdur] 30 mg PO DAILY #30 tab.er.24h 11/01/20 Metoprolol Tartrate [Lopressor] 75 mg PO BID #60 tab 11/01/20 Nitroglycerin Sl Tabs [Nitrostat] 0.4 mg SUBLINGUAL Q5M PRN #20 tab 11/01/20 Baclofen [Lioresal] 5 mg PO TID 7 Days #21 tablet 03/15/21 Ondansetron Odt [Zofran Odt] 4 mg PO Q8HR PRN #12 tab 03/24/21 Allergies Allergy/AdvReac Type Severity Reaction Status Date / Time doxycycline Allergy Swelling Verified 04/27/21 10:25 ketorolac tromethamine Allergy Rash/Hives Verified 04/27/21 10:25 [From Toradol] morphine Allergy Rash/Hives Verified 04/27/21 10:25 metoclopramide HCl AdvReac Dystonic Verified 04/27/21 10:25 [From Reglan] Reaction prochlorperazine edisylate AdvReac Dystonic Verified 04/27/21 10:25 [From Compazine] Reaction prochlorperazine maleate AdvReac Dystonic Verified 04/27/21 10:25 [From Compazine] Reaction tramadol AdvReac Nausea & Verified 04/27/21 10:25 Vomiting Review of Systems ROS Statement: Those systems with pertinent positive or pertinent negative responses have been documented in the HPI. ROS Other: All systems not noted in ROS Statement are negative. Past Medical History Past Medical History: Asthma, Coronary Artery Disease (CAD), Chest Pain / Angina, Diabetes Mellitus, GERD/Reflux, GI Bleed, Hyperlipidemia, Hypertension, Myocardial Infarction ([place]), Mitral Valve Prolapse (MVP), Pulmonary Embolus (PE), Sleep Apnea/CPAP/BIPAP Additional Past Medical History / Comment(s): Asthmatic bronchitis-chronic, IDDM type II, neuropathy bilateral feet, lower and upper GI bleeds, PUD, diverticulitis, colectomy d/t benign mass/intusseption, BPH, renal cysts, nephrolithiais, UTI with sepsis, chronic back pain 2ndary to herniated lumbar discs/sciatica, JARED does not use his Cpap, MVP, murmur Last Myocardial Infarction Date:: 2011 History of Any Multi-Drug Resistant Organisms: MRSA Date of last positivie culture/infection: 2015 MDRO Source:: left axilla Past Surgical History: Appendectomy, Back Surgery, Cholecystectomy, Heart Catheterization, Hernia Repair Additional Past Surgical History / Comment(s): Lumbar decompression/fusion/laminectomy, spinal stimulator, T lift procedure, L inguinal hernia repair, multiple ESWLs/stents/double J caths, colonoscopy, 02/2020 colectomy, EGDs for food obstructions and dilations Past Anesthesia/Blood Transfusion Reactions: No Reported Reaction Past Psychological History: No Psychological Hx Reported Smoking Status: Never smoker Past Alcohol Use History: None Reported Past Drug Use History: None Reported - Past Family History Father Family Medical History: Chest Pain / Angina Additional Family Medical History / Comment(s): "lung problems" Mother Family Medical History: Cancer, Chest Pain / Angina, Congestive Heart Failure (CHF), Osteoarthritis (OA), Thyroid Disorder Additional Family Medical History / Comment(s): "female cancer" General Exam Limitations: physical limitation General appearance: alert, in no apparent distress Head exam: Present: atraumatic, normocephalic, normal inspection Eye exam: Present: normal appearance, PERRL, EOMI. Absent: scleral icterus, con junctival injection, periorbital swelling ENT exam: Present: normal exam, mucous membranes moist Neck exam: Present: normal inspection Respiratory exam: Present: normal lung sounds bilaterally. Absent: respiratory distress, wheezes, rales, rhonchi, stridor Cardiovascular Exam: Present: regular rate, normal rhythm, normal heart sounds. Absent: systolic murmur, diastolic murmur, rubs, gallop, clicks Extremities exam: Present: normal inspection, full ROM, normal capillary refill. Absent: tenderness, pedal edema, joint swelling, calf tenderness Neurological exam: Present: alert, oriented X3 Psychiatric exam: Present: normal affect, normal mood Skin exam: Present: warm, dry, intact, normal color. Absent: rash Course Vital Signs 04/27/21 10:26 Temperature 99 F Pulse Rate 115 H Respiratory 18 Rate Blood Pressure 161/111 O2 Sat by Pulse 97 Oximetry Medical Decision Making - Medical Decision Making 55-year-old male with chronic back pain with symptomatic relief. 1 mg Dilaudid, 60 mg of Norflex ordered. Patient states that he will follow-up this pain medicine doctor tomorrow as planned. 1 mg of Dilaudid ordered for continuing pain, patient is remote discharge after the secondmedication. Case discussed with Dr. Leiva, patient discharge home with follow-up primary care. Disposition Clinical Impression: Low back pain Disposition: HOME SELF-CARE Condition: Stable Instructions (If sedation given, give patient instructions): Acute Low Back Pain (ED) Additional Instructions: Please return to the Emergency Department if symptoms worsen or any other concerns. Follow-up with primary care 1-2 days. Follow-up with pain medicine specialist as planned. Is patient prescribed a controlled substance at d/c from ED?: No Referrals: Trav Muniz MD [Primary Care Provider] - 1-2 days Time of Disposition: 11:45
== END 2021-04-27 11:58 | disposition home or self-care (01) ==
LOC: EC 10:19
DX: M54.50 Low back pain, unspecified (principal); G89.29 Other chronic pain; J45.909 Unspecified asthma, uncomplicated; I10 Essential (primary) hypertension; I25.2 Old myocardial infarction; I25.10 Atherosclerotic heart disease of native coronary artery without angina pectoris; E11.9 Type 2 diabetes mellitus without complications; K21.9 Gastro-esophageal reflux disease without esophagitis; E78.5 Hyperlipidemia, unspecified; Z79.4 Long term (current) use of insulin; Z79.01 Long term (current) use of anticoagulants; Z88.1 Allergy status to other antibiotic agents; Z88.5 Allergy status to narcotic agent; Z86.711 Personal history of pulmonary embolism; Z87.440 Personal history of urinary (tract) infections; Z90.49 Acquired absence of other specified parts of digestive tract
CPT/HCPCS: 99283 ×2; 96374 ×2; 96372 ×3; J2360; J1170

== ENCOUNTER 2021-05-20 01:58 | Emergency (ER) | payer OTHER ==
[2021-05-20 02:09] VITALS: BP 164/89; PULSE 111; RESP 22; TEMP 97.9
[2021-05-20] MEDS ORDERED: HYDROmorphone 1 MG/ML 1 ML SYRINGE IM STA (02:31)
--- NOTE | 2021-05-20 02:33 | ED ---
Back Pain [facility] - General Chief Complaint: Back Pain/Injury Stated Complaint: Back Pain Time Seen by Provider: 05/20/21 02:29 Source: patient, RN notes reviewed, old records reviewed Limitations: no limitations - History of Present Illness Initial Comments: This is a 55-year-old male to the emergency department today. Patient resents today for evaluation regards to acute on chronic back pain with no traumatic or new injuries. No loss of bowel or bladder and no other significant complaints. Patient is here for requests medication secondary to increase chronic back pain. MD Complaint: back pain -: hour(s) Similar Symptoms Previously: Yes Place: home Radiation: none Severity: severe Severity scale (1-10): 9 Quality: sharp, aching Consistency: intermittent Improves With: immobilization Worsens With: movement, sitting upright, walking Context: while lifting, turning/twisting Associated Symptoms: denies other symptoms Treatments Prior to Arrival: heat therapy, prescription analgesics - Related Data Home Medications Medication Instructions Recorded Confirmed Omeprazole [PriLOSEC] 20 mg PO BID 12/11/17 03/15/21 Gabapentin [Neurontin] 300 mg PO TID 10/12/19 03/15/21 INSULIN LISPRO (HumaLOG) [humaLOG] 10 unit SQ AC-TID 02/16/20 03/15/21 Methocarbamol [Robaxin-750] 750 mg PO TID 10/26/20 03/15/21 Atorvastatin [Lipitor] 40 mg PO HS 11/13/20 03/15/21 Apixaban [Eliquis] 5 mg PO BID 02/07/21 03/15/21 Diltiazem Cd [Cardizem Cd] 300 mg PO DAILY 02/07/21 03/15/21 Insulin Glargine,Hum.rec.anlog 30 unit SQ BID 02/07/21 03/15/21 [Basaglar Kwikpen U-100] oxyCODONE-APAP 7.5-325MG [Percocet 1 tab PO TID PRN 03/15/21 03/15/21 7.5-325 mg] Previous Rx's Medication Instructions Recorded lisinopriL [Zestril] 10 mg PO DAILY #30 tab 02/17/20 Isosorbide Mononitrate ER [Imdur] 30 mg PO DAILY #30 tab.er.24h 11/01/20 Metoprolol Tartrate [Lopressor] 75 mg PO BID #60 tab 11/01/20 Nitroglycerin Sl Tabs [Nitrostat] 0.4 mg SUBLINGUAL Q5M PRN #20 tab 11/01/20 Baclofen [Lioresal] 5 mg PO TID 7 Days #21 tablet 03/15/21 Ondansetron Odt [Zofran Odt] 4 mg PO Q8HR PRN #12 tab 03/24/21 Albuterol Inhaler [Ventolin Hfa 2 puff INHALATION RT-QID #8 gm 06/03/21 Inhaler] predniSONE 50 mg PO DAILY #5 tab 06/03/21 Allergies Allergy/AdvReac Type Severity Reaction Status Date / Time doxycycline Allergy Swelling Verified 06/03/21 08:47 ketorolac tromethamine Allergy Rash/Hives Verified 06/03/21 08:47 [From Toradol] morphine Allergy Rash/Hives Verified 06/03/21 08:47 metoclopramide HCl AdvReac Dystonic Verified 06/03/21 08:47 [From Reglan] Reaction prochlorperazine edisylate AdvReac Dystonic Verified 06/03/21 08:47 [From Compazine] Reaction prochlorperazine maleate AdvReac Dystonic Verified 06/03/21 08:47 [From Compazine] Reaction tramadol AdvReac Nausea & Verified 06/03/21 08:47 Vomiting Review of Systems ROS Statement: Those systems with pertinent positive or pertinent negative responses have been documented in the HPI. ROS Other: All systems not noted in ROS Statement are negative. Past Medical History Past Medical History: Asthma, Coronary Artery Disease (CAD), Chest Pain / Angina, Diabetes Mellitus, GERD/Reflux, GI Bleed, Hyperlipidemia, Hypertension, Myocardial Infarction ([place]), Mitral Valve Prolapse (MVP), Pulmonary Embolus (PE), Sleep Apnea/CPAP/BIPAP Additional Past Medical History / Comment(s): Asthmatic bronchitis-chronic, IDDM type II, neuropathy bilateral feet, lower and upper GI bleeds, PUD, diverticulitis, colectomy d/t benign mass/intusseption, BPH, renal cysts, nephrolithiais, UTI with sepsis, chronic back pain 2ndary to herniated lumbar discs/sciatica, JARED does not use his Cpap, MVP, murmur Last Myocardial Infarction Date:: 2011 History of Any Multi-Drug Resistant Organisms: MRSA Date of last positivie culture/infection: 2016 MDRO Source:: left axilla Past Surgical History: Appendectomy, Back Surgery, Cholecystectomy, Heart Catheterization, Hernia Repair Additional Past Surgical History / Comment(s): Lumbar decompression /fusion/laminectomy, spinal stimulator, T lift procedure, L inguinal hernia repair, multiple ESWLs/stents/double J caths, colonoscopy, 02/2020 colectomy, EGDs for food obstructions and dilations Past Anesthesia/Blood Transfusion Reactions: No Reported Reaction Past Psychological History: No Psychological Hx Reported Smoking Status: Never smoker Past Alcohol Use History: None Reported Past Drug Use History: None Reported - Past Family History Father Family Medical History: Chest Pain / Angina Additional Family Medical History / Comment(s): "lung problems" Mother Family Medical History: Cancer, Chest Pain / Angina, Congestive Heart Failure (CHF), Osteoarthritis (OA), Thyroid Disorder Additional Family Medical History / Comment(s): "female cancer" General Exam Limitations: no limitations General appearance: alert, in no apparent distress Head exam: Present: atraumatic, normocephalic, normal inspection Eye exam: Present: normal appearance, PERRL, EOMI. Absent: scleral icterus, conjunctival injection, periorbital swelling ENT exam: Present: normal exam, mucous membranes moist Neck exam: Present: normal inspection. Absent: tenderness, meningismus, lymphadenopathy Respiratory exam: Present: normal lung sounds bilaterally. Absent: respiratory distress, wheezes, rales, rhonchi, stridor Cardiovascular Exam: Present: regular rate, normal rhythm, normal heart sounds. Absent: systolic murmur, diastolic murmur, rubs, gallop, clicks GI/Abdominal exam: Present: soft, normal bowel sounds. Absent: distended, tenderness, guarding, rebound, rigid Extremities exam: Present: normal inspection, full ROM, normal capillary refill. Absent: tenderness, pedal edema, joint swelling, calf tenderness Back exam: Present: normal inspection Neurological exam: Present: alert, oriented X3, CN II-XII intact Psychiatric exam: Present: normal affect, normal mood Skin exam: Present: warm, dry, intact, normal color. Absent: rash Course Vital Signs 05/20/21 02:07 Temperature 97.9 F Pulse Rate 111 H Respiratory 22 Rate Blood Pressure 164/89 O2 Sat by Pulse 99 Oximetry - Reevaluation(s) Reevaluation #1: Medical record is reviewed Patient symptoms are improved here in the emergency department Patient is informed of results and questions are answered Medical Decision Making - Medical Decision Making 55 male to the emergency department for evaluation of Chronic back pain. Pain is improved here in the ER patient feels comfortable for discharge home Disposition Clinical Impression: Low back pain Disposition: HOME SELF-CARE Condition: Good Instructions (If sedation given, give patient instructions): Acute Low Back Pain (ED) Is patient prescribed a controlled substance at d/c from ED?: No Referrals: Trav Muniz MD [Primary Care Provider] - 1-2 days
[2021-05-20] MEDS ORDERED: LIDOCAINE 5% PATCH TOPICAL STA (02:56)
== END 2021-05-20 03:07 | disposition home or self-care (01) ==
LOC: EC 01:58
DX: M54.50 Low back pain, unspecified (principal); E11.40 Type 2 diabetes mellitus with diabetic neuropathy, unspecified; I10 Essential (primary) hypertension; I25.2 Old myocardial infarction; I25.10 Atherosclerotic heart disease of native coronary artery without angina pectoris; J45.909 Unspecified asthma, uncomplicated; E78.5 Hyperlipidemia, unspecified; Z79.4 Long term (current) use of insulin; Z79.01 Long term (current) use of anticoagulants; Z79.52 Long term (current) use of systemic steroids; Z79.51 Long term (current) use of inhaled steroids; Z79.899 Other long term (current) drug therapy; Z86.711 Personal history of pulmonary embolism
CPT/HCPCS: 99283; 96372; J1170

== ENCOUNTER 2021-05-20 17:42 | Emergency (ER) | payer OTHER ==
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
[2021-05-20] MEDS ORDERED: HYDROcodone/APAP 5-325MG 1 EACH TAB PO STA (21:29)
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
[2021-05-20 23:03] VITALS: BP 168/90; PULSE 100; RESP 18; TEMP 98.6
== END 2021-05-20 23:18 | disposition other institution (70) ==
LOC: EC 17:42
DX: M54.5 Low back pain (principal); R15.9 Full incontinence of feces; V49.50XA Passenger injured in collision with unspecified motor vehicles in traffic accident, initial encounter; Y92.410 Unspecified street and highway as the place of occurrence of the external cause; E11.40 Type 2 diabetes mellitus with diabetic neuropathy, unspecified; I10 Essential (primary) hypertension; I25.10 Atherosclerotic heart disease of native coronary artery without angina pectoris; I25.2 Old myocardial infarction; E78.5 Hyperlipidemia, unspecified; J45.909 Unspecified asthma, uncomplicated; K21.9 Gastro-esophageal reflux disease without esophagitis; Z79.4 Long term (current) use of insulin; Z79.01 Long term (current) use of anticoagulants; Z79.899 Other long term (current) drug therapy; Z86.711 Personal history of pulmonary embolism
CPT/HCPCS: 51798; 70450; 72125; 72131; 99285

== ENCOUNTER 2021-06-03 08:39 | Emergency (ER) | payer OTHER ==
[2021-06-03] MEDS ORDERED: HYDROmorphone 0.5 MG/0.5 ML SYRINGE IVP STA (08:58)
[2021-06-03] MEDS ORDERED: SODIUM CHLORIDE 0.9% 500 ML 500 ML IV ONE (08:58)
--- NOTE | 2021-06-03 09:20 | ED ---
General Adult HPI - General Chief complaint: Chest Pain Stated complaint: cough Time Seen by Provider: 06/03/21 08:41 Source: patient, EMS, RN notes reviewed, old records reviewed Mode of arrival: EMS Limitations: no limitations, language barrier - History of Present Illness Initial comments: 55-year-old male presented for evaluation of cough, and positive exposure to coronavirus. Patient is not vaccinated. He had developed cough over the past 3 days which has worsened and he has developed some central and right-sided chest discomfort as well. Which is associated with his cough. He does have a history of DVT and PE and is currently on eliquis. Patient denies radiating symptoms. Denies diaphoresis or vomiting. Cough is mostly dry. - Related Data Home Medications Medication Instructions Recorded Confirmed Omeprazole [PriLOSEC] 20 mg PO BID 12/11/17 03/15/21 Gabapentin [Neurontin] 300 mg PO TID 10/12/19 03/15/21 INSULIN LISPRO (HumaLOG) [humaLOG] 10 unit SQ AC-TID 02/16/20 03/15/21 Methocarbamol [Robaxin-750] 750 mg PO TID 10/26/20 03/15/21 Atorvastatin [Lipitor] 40 mg PO HS 11/13/20 03/15/21 Apixaban [Eliquis] 5 mg PO BID 02/07/21 03/15/21 Diltiazem Cd [Cardizem Cd] 300 mg PO DAILY 02/07/21 03/15/21 Insulin Glargine,Hum.rec.anlog 30 unit SQ BID 02/07/21 03/15/21 [Basaglrodrigo Díaz U-100] oxyCODONE-APAP 7.5-325MG [Percocet 1 tab PO TID PRN 03/15/21 03/15/21 7.5-325 mg] Previous Rx's Medication Instructions Recorded lisinopriL [Zestril] 10 mg PO DAILY #30 tab 02/17/20 Isosorbide Mononitrate ER [Imdur] 30 mg PO DAILY #30 tab.er.24h 11/01/20 Metoprolol Tartrate [Lopressor] 75 mg PO BID #60 tab 11/01/20 Nitroglycerin Sl Tabs [Nitrostat] 0.4 mg SUBLINGUAL Q5M PRN #20 tab 11/01/20 Baclofen [Lioresal] 5 mg PO TID 7 Days #21 tablet 03/15/21 Ondansetron Odt [Zofran Odt] 4 mg PO Q8HR PRN #12 tab 03/24/21 Albuterol Inhaler [Ventolin Hfa 2 puff INHALATION RT-QID #8 gm 06/03/21 Inhaler] predniSONE 50 mg PO DAILY #5 tab 06/03/21 Allergies Allergy/AdvReac Type Severity Reaction Status Date / Time doxycycline Allergy Swelling Verified 06/03/21 08:47 ketorolac tromethamine Allergy Rash/Hives Verified 06/03/21 08:47 [From Toradol] morphine Allergy Rash/Hives Verified 06/03/21 08:47 metoclopramide HCl AdvReac Dystonic Verified 06/03/21 08:47 [From Reglan] Reaction prochlorperazine edisylate AdvReac Dystonic Verified 06/03/21 08:47 [From Compazine] Reaction prochlorperazine maleate AdvReac Dystonic Verified 06/03/21 08:47 [From Compazine] Reaction tramadol AdvReac Nausea & Verified 06/03/21 08:47 Vomiting Review of Systems ROS Statement: Those systems with pertinent positive or pertinent negative responses have been documented in the HPI. ROS Other: All systems not noted in ROS Statement are negative. Past Medical History Past Medical History: Asthma, Coronary Artery Disease (CAD), Chest Pain / Angina, Diabetes Mellitus, GERD/Reflux, GI Bleed, Hyperlipidemia, Hypertension, Myocardial Infarction (OR), Mitral Valve Prolapse (MVP), Pulmonary Embolus (PE), Sleep Apnea/CPAP/BIPAP Additional Past Medical History / Comment(s): Asthmatic bronchitis-chronic, IDDM type II, neuropathy bilateral feet, lower and upper GI bleeds, PUD, diverticulitis, colectomy d/t benign mass/intusseption, BPH, renal cysts, nephrolithiais, UTI with sepsis, chronic back pain 2ndary to herniated lumbar discs/sciatica, JARED does not use his Cpap, MVP, murmur Last Myocardial Infarction Date:: 2011 History of Any Multi-Drug Resistant Organisms: MRSA Date of last positivie culture/infection: 2015 MDRO Source:: left axilla Past Surgical History: Appendectomy, Back Surgery, Cholecystectomy, Heart Catheterization, Hernia Repair Additional Past Surgical History / Comment(s): Lumbar decompression/fusion/laminectomy, spinal stimulator, T lift procedure, L inguinal hernia repair, multiple ESWLs/stents/double J caths, colonoscopy, 02/2020 colectomy, EGDs for food obstructions and dilations Past Anesthesia/Blood Transfusion Reactions: No Reported Reaction Past Psychological History: No Psychological Hx Reported Smoking Status: Never smoker Past Alcohol Use History: None Reported Past Drug Use History: None Reported - Past Family History Father Family Medical History: Chest Pain / Angina Additional Family Medical History / Comment(s): "lung problems" Mother Family Medical History: Cancer, Chest Pain / Angina, Congestive Heart Failure (CHF), Osteoarthritis (OA), Thyroid Disorder Additional Family Medical History / Comment(s): "female cancer" General Exam Limitations: no limitations, language barrier General appearance: alert, in no apparent distress Head exam: Present: atraumatic, normocephalic Eye exam: Present: normal appearance, PERRL ENT exam: Present: normal exam Neck exam: Present: normal inspection. Absent: tenderness, meningismus Respiratory exam: Present: rhonchi. Absent: respiratory distress, wheezes Cardiovascular Exam: Present: normal rhythm, tachycardia GI/Abdominal exam: Present: soft. Absent: distended, tenderness, guarding Extremities exam: Present: normal inspection, normal capillary refill. Absent: pedal edema Neurological exam: Present: alert, oriented X3, CN II-XII intact. Absent: motor sensory deficit Psychiatric exam: Present: normal affect, normal mood Skin exam: Present: warm, dry, intact. Absent: cyanosis, diaphoretic Course Vital Signs 06/03/21 10:15 Respiratory 20 Rate EKG Findings - EKG Comments: EKG Findings:: EKG: Sinus tachycardia, rate of 116, WA interval 150, QRS duration 110, QTC 486, no ST segment elevation. Medical Decision Making - Medical Decision Making 55-year-old male with cough and exposure to coronavirus. Chest x-ray is clear. No large pneumonia. Patient has negative for coronavirus. His normal CBC, normal CMP with the exception of hyperglycemia., negative troponin. Symptoms more consistent with bronchitis. Will be treated with course of steroids and albuterol. Return parameters discussed. Patient is being prescribed albuterol and steroids. He should monitor his blood glucose closely. - Lab Data Result diagrams: 06/03/21 09:55 06/03/21 09:55 Lab Results 06/03/21 06/03/21 06/03/21 Range/Units 09:45 09:55 09:55 WBC 6.1 (3.8-10.6) k/uL RBC 5.08 (4.30-5.90) m/uL Hgb 14.6 (13.0-17.5) gm/dL Hct 43.7 (39.0-53.0) % MCV 85.9 (80.0-100.0) fL MCH 28.7 (25.0-35.0) pg MCHC 33.4 (31.0-37.0) g/dL RDW 13.5 (11.5-15.5) % Plt Count 265 (150-450) k/uL MPV 6.9 Neutrophils % 71 % Lymphocytes % 19 % Monocytes % 4 % Eosinophils % 3 % Basophils % 1 % Neutrophils # 4.4 (1.3-7.7) k/uL Lymphocytes # 1.2 (1.0-4.8) k/uL Monocytes # 0.3 (0-1.0) k/uL Eosinophils # 0.2 (0-0.7) k/uL Basophils # 0.0 (0-0.2) k/uL PT 9.6 (9.0-12.0) sec INR 0.9 (<1.2) APTT 21.2 L (22.0-30.0) sec Sodium (137-145) mmol/L Potassium (3.5-5.1) mmol/L Chloride (98-107) mmol/L Carbon Dioxide (22-30) mmol/L Anion Gap mmol/L BUN (9-20) mg/dL Creatinine (0.66-1.25) mg/dL Est GFR (CKD-EPI)AfAm (>60 ml/min/1.73 sqM) Est GFR (CKD-EPI)NonAf (>60 ml/min/1.73 sqM) Glucose (74-99) mg/dL Calcium (8.4-10.2) mg/dL Magnesium (1.6-2.3) mg/dL Total Bilirubin (0.2-1.3) mg/dL AST (17-59) U/L ALT (4-49) U/L Alkaline Phosphatase (38-126) U/L Troponin I (0.000-0.034) ng/mL Total Protein (6.3-8.2) g/dL Albumin (3.5-5.0) g/dL Coronavirus (PCR) Not Detected (Not Detectd) 06/03/21 06/03/21 Range/Units 09:55 09:55 WBC (3.8-10.6) k/uL RBC (4.30-5.90) m/uL Hgb (13.0-17.5) gm/dL Hct (39.0-53.0) % MCV (80.0-100.0) fL MCH (25.0-35.0) pg MCHC (31.0-37.0) g/dL RDW (11.5-15.5) % Plt Count (150-450) k/uL MPV Neutrophils % % Lymphocytes % % Monocytes % % Eosinophils % % Basophils % % Neutrophils # (1.3-7.7) k/uL Lymphocytes # (1.0-4.8) k/uL Monocytes # (0-1.0) k/uL Eosinophils # (0-0.7) k/uL Basophils # (0-0.2) k/uL PT (9.0-12.0) sec INR (<1.2) APTT (22.0-30.0) sec Sodium 134 L (137-145) mmol/L Potassium 4.4 (3.5-5.1) mmol/L Chloride 103 (98-107) mmol/L Carbon Dioxide 18 L (22-30) mmol/L Anion Gap 13 mmol/L BUN 13 (9-20) mg/dL Creatinine 0.49 L (0.66-1.25) mg/dL Est GFR (CKD-EPI)AfAm >90 (>60 ml/min/1.73 sqM) Est GFR (CKD-EPI)NonAf >90 (>60 ml/min/1.73 sqM) Glucose 257 H (74-99) mg/dL Calcium 9.8 (8.4-10.2) mg/dL Magnesium 1.9 (1.6-2.3) mg/dL Total Bilirubin 0.6 (0.2-1.3) mg/dL AST 25 (17-59) U/L ALT 32 (4-49) U/L Alkaline Phosphatase 108 (38-126) U/L Troponin I <0.012 (0.000-0.034) ng/mL Total Protein 7.2 (6.3-8.2) g/dL Albumin 4.3 (3.5-5.0) g/dL Coronavirus (PCR) (Not Detectd) Disposition Clinical Impression: Cough, Acute bronchitis Disposition: HOME SELF-CARE Condition: Fair Instructions (If sedation given, give patient instructions): Acute Bronchitis (ED) Prescriptions: predniSONE 50 mg PO DAILY #5 tab Albuterol Inhaler [Ventolin Hfa Inhaler] 2 puff INHALATION RT-QID #8 gm Is patient prescribed a controlled substance at d/c from ED?: No Referrals: Trav Muniz MD [Primary Care Provider] - 1-2 days Time of Disposition: 11:11
[2021-06-03 10:05] LABS: Basophils % (A) 1 %; Eosinophils # (A) 0.2 k/uL (0-0.7); Eosinophils % (A) 3 %; HCT 43.7 % (39.0-53.0); HGB 14.6 gm/dL (13.0-17.5); Lymphocytes # (A) 1.2 k/uL (1.0-4.8); Lymphocytes % (A) 19 %; MCH 28.7 pg (25.0-35.0); MCHC 33.4 g/dL (31.0-37.0); MCV 85.9 fL (80.0-100.0); Mean Platelet Volume 6.9; Monocytes # (A) 0.3 k/uL (0-1.0); Monocytes % (A) 4 %; Neutrophils # (A) 4.4 k/uL (1.3-7.7); Neutrophils % (A) 71 %; Platelet Count 265 k/uL (150-450); RBC 5.08 m/uL (4.30-5.90); RDW 13.5 % (11.5-15.5); WBC 6.1 k/uL (3.8-10.6)
[2021-06-03] MEDS ORDERED: HYDROmorphone 0.5 MG/0.5 ML SYRINGE IM STA (10:18)
[2021-06-03 10:20] LABS: ALT 32 U/L (4-49); AST 25 U/L (17-59); African American GFR (CKD) >90 (>60 ml/min/1.73 sqM); Albumin 4.3 g/dL (3.5-5.0); Alkaline Phosphatase 108 U/L (38-126); Anion Gap 13 mmol/L; Blood Urea Nitrogen 13 mg/dL (9-20); Calcium 9.8 mg/dL (8.4-10.2); Carbon Dioxide 18 mmol/L (22-30); Chloride 103 mmol/L (98-107); Glucose 257 mg/dL (74-99); Magnesium 1.9 mg/dL (1.6-2.3); Non-African American GFR(CKD) >90 (>60 ml/min/1.73 sqM); Potassium 4.4 mmol/L (3.5-5.1); Sodium 134 mmol/L (137-145); Total Bilirubin 0.6 mg/dL (0.2-1.3); Total Protein 7.2 g/dL (6.3-8.2)
[2021-06-03 10:29] LABS: INR 0.9 (<1.2); Prothrombin Time 9.6 sec (9.0-12.0)
--- NOTE | 2021-06-03 10:40 | XR ---
EXAMINATION TYPE: XR chest 1V portable DATE OF EXAM: 06/03/2021 COMPARISON: Chest x-ray February 24, 2021 HISTORY: Chest pain for 2 days. TECHNIQUE: Single AP frontal upright view of the chest is obtained. FINDINGS: There is no suspicious new focal air space opacity, pleural effusion, or pneumothorax seen . The cardiac silhouette size is stable and upper limits of normal. Surgical change to the cervical spine is partially imaged. Stimulator device lower thoracic spinal canal redemonstrated. IMPRESSION: No acute process. No significant change from prior.
[2021-06-03 11:09] LABS: Partial Thromboplastin Time 21.2 sec (22.0-30.0)
[2021-06-03 11:37] VITALS: BP 158/89; PULSE 95; RESP 16
== END 2021-06-03 11:37 | disposition home or self-care (01) ==
LOC: EC 08:39
DX: J20.9 Acute bronchitis, unspecified (principal); J45.909 Unspecified asthma, uncomplicated; I25.10 Atherosclerotic heart disease of native coronary artery without angina pectoris; K21.9 Gastro-esophageal reflux disease without esophagitis; E78.5 Hyperlipidemia, unspecified; I10 Essential (primary) hypertension; I25.2 Old myocardial infarction; E11.40 Type 2 diabetes mellitus with diabetic neuropathy, unspecified; Z79.4 Long term (current) use of insulin; Z79.51 Long term (current) use of inhaled steroids; Z79.01 Long term (current) use of anticoagulants; Z79.899 Other long term (current) drug therapy
CPT/HCPCS: 36415; 80053; 83735; 84484; 85025; 85610; 85730; 87635; 71045; 99285; 96372; J1170; 93005

== ENCOUNTER 2021-06-16 16:13 | Observation (INO) | payer OTHER ==
[2021-06-16] MEDS ORDERED: SODIUM CHLORIDE 0.9% 500 ML 500 ML IV ONE (16:35)
[2021-06-16] MEDS ORDERED: HYDROmorphone 0.5 MG/0.5 ML SYRINGE IVP STA ×2 (16:35→21:13)
--- NOTE | 2021-06-16 16:39 | ED ---
General Adult HPI - General Chief complaint: Chest Pain Stated complaint: chest pain Source: patient, EMS, RN notes reviewed, old records reviewed Mode of arrival: EMS Limitations: no limitations - History of Present Illness Initial comments: 55-year-old male presenting for evaluation of chest pain. Patient has previous history of DVT or PE. He is on the coagulation. He reports a central chest pain which is been intermittent for the past several weeks but has been some mor e constant over the past several days. He states he has had a heart attack in the past but has not had previous stenting. He reports associated nausea and vomiting. He states he had a recent episode of bronchitis and was tested for coronavirus. This was negative. - Related Data Home Medications Medication Instructions Recorded Confirmed Gabapentin [Neurontin] 300 mg PO TID 10/12/19 06/16/21 Atorvastatin [Lipitor] 40 mg PO HS 11/13/20 06/16/21 Apixaban [Eliquis] 5 mg PO BID 02/07/21 06/16/21 Diltiazem Cd [Cardizem Cd] 300 mg PO DAILY 02/07/21 06/16/21 oxyCODONE-APAP 7.5-325MG [Percocet 1 tab PO Q6H PRN 03/15/21 06/16/21 7.5-325 mg] Albuterol Inhaler [Ventolin Hfa 2 puff INHALATION RT-QID PRN 06/16/21 06/16/21 Inhaler] Insulin Lispro [humaLOG Kwikpen] 12 unit SQ TID-W/MEALS 06/16/21 06/16/21 Metoprolol Tartrate [Lopressor] 25 mg PO TID 06/16/21 06/16/21 Omeprazole Magnesium [PriLOSEC OTC] 20 mg PO DAILY PRN 06/16/21 06/16/21 Previous Rx's Medication Instructions Recorded lisinopriL [Zestril] 10 mg PO DAILY #30 tab 02/17/20 Nitroglycerin Sl Tabs [Nitrostat] 0.4 mg SUBLINGUAL Q5M PRN #20 tab 11/01/20 Allergies Allergy/AdvReac Type Severity Reaction Status Date / Time doxycycline Allergy Swelling Verified 06/16/21 16:24 ketorolac tromethamine Allergy Rash/Hives Verified 06/16/21 16:24 [From Toradol] morphine Allergy Rash/Hives Verified 06/16/21 16:24 metoclopramide HCl AdvReac Dystonic Verified 06/16/21 16:24 [From Reglan] Reaction prochlorperazine edisylate AdvReac Dystonic Verified 06/16/21 16:24 [From Compazine] Reaction prochlorperazine maleate AdvReac Dystonic Verified 06/16/21 16:24 [From Compazine] Reaction tramadol AdvReac Nausea & Verified 06/16/21 16:24 Vomiting Review of Systems ROS Statement: Those systems with pertinent positive or pertinent negative responses have been documented in the HPI. ROS Other: All systems not noted in ROS Statement are negative. Past Medical History Past Medical History: Asthma, Coronary Artery Disease (CAD), Chest Pain / Angina, Diabetes Mellitus, GERD/Reflux, GI Bleed, Hyperlipidemia, Hypertension, Myocardial Infarction ([place]), Mitral Valve Prolapse (MVP), Pulmonary Embolus (PE), Sleep Apnea/CPAP/BIPAP Additional Past Medical History / Comment(s): Asthmatic bronchitis-chronic, IDDM type II, neuropathy bilateral feet, lower and upper GI bleeds, PUD, diverticulitis, colectomy d/t benign mass/intusseption, BPH, renal cysts, nephrolithiais, UTI with sepsis, chronic back pain 2ndary to herniated lumbar discs/sciatica, JARED does not use his Cpap, MVP, murmur Last Myocardial Infarction Date:: 2011 History of Any Multi-Drug Resistant Organisms: MRSA Date of last positivie culture/infection: 2015 MDRO Source:: left axilla Past Surgical History: Appendectomy, Back Surgery, Cholecystectomy, Heart Catheterization, Hernia Repair Additional Past Surgical History / Comment(s): Lumbar decompression/fusion/laminectomy, spinal stimulator, T lift procedure, L inguin al hernia repair, multiple ESWLs/stents/double J caths, colonoscopy, 02/2020 colectomy, EGDs for food obstructions and dilations Past Anesthesia/Blood Transfusion Reactions: No Reported Reaction Past Psychological History: No Psychological Hx Reported Smoking Status: Never smoker Past Alcohol Use History: None Reported Past Drug Use History: None Reported - Past Family History Father Family Medical History: Chest Pain / Angina Additional Family Medical History / Comment(s): "lung problems" Mother Family Medical History: Cancer, Chest Pain / Angina, Congestive Heart Failure (CHF), Osteoarthritis (OA), Thyroid Disorder Additional Family Medical History / Comment(s): "female cancer" General Exam Limitations: no limitations General appearance: alert, in no apparent distress Head exam: Present: atraumatic, normocephalic Eye exam: Present: normal appearance, PERRL ENT exam: Present: normal exam Neck exam: Present: normal inspection. Absent: tenderness, meningismus Respiratory exam: Present: decreased breath sounds. Absent: respiratory di stress Cardiovascular Exam: Present: normal rhythm, tachycardia GI/Abdominal exam: Present: soft. Absent: distended, tenderness, guarding Extremities exam: Present: normal inspection, normal capillary refill. Absent: calf tenderness Neurological exam: Present: alert, oriented X3, CN II-XII intact. Absent: motor sensory deficit Psychiatric exam: Present: normal affect, normal mood Skin exam: Present: warm, dry, intact. Absent: cyanosis, diaphoretic Course Vital Signs 06/16/21 16:18 Temperature 98.6 F Pulse Rate 115 H Respiratory 24 Rate Blood Pressure 180/110 O2 Sat by Pulse 99 Oximetry EKG Findings - EKG Comments: EKG Findings:: EKG: Sinus tachycardia, incomplete right bundle-branch block, rate of 117, LA interval 146, QRS duration 106, QTC 42, no ST segment elevation. Medical Decision Making - Medical Decision Making 55-year-old male presenting with chest pain. Patient is tachycardic. He's had mild dyspnea. No significant cough. No fever. His coronavirus testing is negative. EKG does not have ST segment elevation. Chest x-ray is negative. Given the tachycardia and central chest pain, CT angiography is performed, results are pending. Initial troponin is negative. He will be admitted for stroke cardiac enzymes, telemetry, cardiology consultation. - Lab Data Result diagrams: 06/16/21 17:54 06/16/21 17:54 Lab Results 06/16/21 06/16/21 06/16/21 Range/Units 17:54 17:54 17:54 WBC 8.4 (3.8-10.6) k/uL RBC 5.11 (4.30-5.90) m/uL Hgb 14.9 (13.0-17.5) gm/dL Hct 44.4 (39.0-53.0) % MCV 87.0 (80.0-100.0) fL MCH 29.1 (25.0-35.0) pg MCHC 33.4 (31.0-37.0) g/dL RDW 13.5 (11.5-15.5) % Plt Count 208 (150-450) k/uL MPV 7.7 Neutrophils % 73 % Lymphocytes % 18 % Monocytes % 6 % Eosinophils % 2 % Basophils % 0 % Neutrophils # 6.1 (1.3-7.7) k/uL Lymphocytes # 1.5 (1.0-4.8) k/uL Monocytes # 0.5 (0-1.0) k/uL Eosinophils # 0.1 (0-0.7) k/uL Basophils # 0.0 (0-0.2) k/uL Sodium 135 L (137-145) mmol/L Potassium 4.6 (3.5-5.1) mmol/L Chloride 103 (98-107) mmol/L Carbon Dioxide 17 L (22-30) mmol/L Anion Gap 15 mmol/L BUN 13 (9-20) mg/dL Creatinine 0.49 L (0.66-1.25) mg/dL Est GFR (CKD-EPI)AfAm >90 (>60 ml/min/1.73 sqM) Est GFR (CKD-EPI)NonAf >90 (>60 ml/min/1.73 sqM) Glucose 326 H (74-99) mg/dL Calcium 10.1 (8.4-10.2) mg/dL Magnesium 2.1 (1.6-2.3) mg/dL Total Bilirubin 0.5 (0.2-1.3) mg/dL AST 44 (17-59) U/L ALT 101 H (4-49) U/L Alkaline Phosphatase 146 H (38-126) U/L Troponin I <0.012 (0.000-0.034) ng/mL Total Protein 7.5 (6.3-8.2) g/dL Albumin 4.6 (3.5-5.0) g/dL Coronavirus (PCR) (Not Detectd) 06/16/21 Range/Units 17:54 WBC (3.8-10.6) k/uL RBC (4.30-5.90) m/uL Hgb (13.0-17.5) gm/dL Hct (39.0-53.0) % MCV (80.0-100.0) fL MCH (25.0-35.0) pg MCHC (31.0-37.0) g/dL RDW (11.5-15.5) % Plt Count (150-450) k/uL MPV Neutrophils % % Lymphocytes % % Monocytes % % Eosinophils % % Basophils % % Neutrophils # (1.3-7.7) k/uL Lymphocytes # (1.0-4.8) k/uL Monocytes # (0-1.0) k/uL Eosinophils # (0-0.7) k/uL Basophils # (0-0.2) k/uL Sodium (137-145) mmol/L Potassium (3.5-5.1) mmol/L Chloride (98-107) mmol/L Carbon Dioxide (22-30) mmol/L Anion Gap mmol/L BUN (9-20) mg/dL Creatinine (0.66-1.25) mg/dL Est GFR (CKD-EPI)AfAm (>60 ml/min/1.73 sqM) Est GFR (CKD-EPI)NonAf (>60 ml/min/1.73 sqM) Glucose (74-99) mg/dL Calcium (8.4-10.2) mg/dL Magnesium (1.6-2.3) mg/dL Total Bilirubin (0.2-1.3) mg/dL AST (17-59) U/L ALT (4-49) U/L Alkaline Phosphatase (38-126) U/L Troponin I (0.000-0.034) ng/mL Total Protein (6.3-8.2) g/dL Albumin (3.5-5.0) g/dL Coronavirus (PCR) Not Detected (Not Detectd) Disposition Clinical Impression: Chest pain Disposition: HOME SELF-CARE Condition: Stable Is patient prescribed a controlled substance at d/c from ED?: No Referrals: Trav Muniz MD [Primary Care Provider] - 1-2 days Decision to Admit Reason: Admit from EC Decision Date: 06/16/21 Decision Time: 21:25
[2021-06-16 18:02] LABS: Basophils % (A) 0 %; Eosinophils # (A) 0.1 k/uL (0-0.7); Eosinophils % (A) 2 %; HCT 44.4 % (39.0-53.0); HGB 14.9 gm/dL (13.0-17.5); Lymphocytes # (A) 1.5 k/uL (1.0-4.8); Lymphocytes % (A) 18 %; MCH 29.1 pg (25.0-35.0); MCHC 33.4 g/dL (31.0-37.0); Mean Platelet Volume 7.7; Monocytes # (A) 0.5 k/uL (0-1.0); Monocytes % (A) 6 %; Neutrophils # (A) 6.1 k/uL (1.3-7.7); Neutrophils % (A) 73 %; Platelet Count 208 k/uL (150-450); RBC 5.11 m/uL (4.30-5.90); RDW 13.5 % (11.5-15.5); WBC 8.4 k/uL (3.8-10.6)
[2021-06-16 18:13] LABS: ALT 101 U/L (4-49); AST 44 U/L (17-59); African American GFR (CKD) >90 (>60 ml/min/1.73 sqM); Albumin 4.6 g/dL (3.5-5.0); Alkaline Phosphatase 146 U/L (38-126); Anion Gap 15 mmol/L; Blood Urea Nitrogen 13 mg/dL (9-20); Calcium 10.1 mg/dL (8.4-10.2); Carbon Dioxide 17 mmol/L (22-30); Chloride 103 mmol/L (98-107); Glucose 326 mg/dL (74-99); Magnesium 2.1 mg/dL (1.6-2.3); Non-African American GFR(CKD) >90 (>60 ml/min/1.73 sqM); Potassium 4.6 mmol/L (3.5-5.1); Sodium 135 mmol/L (137-145); Total Bilirubin 0.5 mg/dL (0.2-1.3); Total Protein 7.5 g/dL (6.3-8.2)
--- NOTE | 2021-06-16 18:16 | XR ---
EXAMINATION TYPE: XR chest 2V DATE OF EXAM: 06/16/2021 COMPARISON: 06/03/2021 HISTORY: Chest pain TECHNIQUE: FINDINGS: Heart is normal. Lungs are clear of infiltrate. There is no heart failure. There are no hil ar masses. There is neural stimulator in the lower thoracic spine. Thoracic spine is intact. IMPRESSION: No active cardiopulmonary disease. No change.
[2021-06-16] MEDS ORDERED: NALOXONE 0.4 MG/ML 1 ML VIAL IV PRN (21:22)
[2021-06-16] MEDS ORDERED: ACETAMINOPHEN TAB 325 MG TAB PO PRN (21:22)
[2021-06-16 21:44] LABS: INR 0.8 (<1.2); Prothrombin Time 9.4 sec (9.0-12.0)
[2021-06-16 22:28] LABS: Partial Thromboplastin Time 20.6 sec (22.0-30.0)
--- NOTE | 2021-06-16 22:40 | CT ---
EXAMINATION TYPE: CT angio chest DATE OF EXAM: 06/16/2021 COMPARISON: 02/16/2020 HISTORY: Chest pain and tachycardia. CT DLP: 705.7 mGycm Automated exposure control for dose reduction was used. CONTRAST: Performed with IV Contrast, patient injected with 76ml mL of Isovue 370. There are 3-D post processed images. The lungs are clear of consolidation. There is no evidence of a pulmonary mass. There is no pleural e ffusion. Heart size is normal. There is no pericardial effusion. There are no hilar masses. There is no mediastinal adenopathy. Thoracic aorta is intact. There is no aneurysm or dissection. There is normal contrast opacification of the pulmonary arteries. There are no filling defects. The thoracic spine is intact. There is neural stimulator in the lower thoracic spine. There is no com pression fracture. Sternum is intact. IMPRESSION: No evidence of pulmonary embolism. No suspicious pulmonary mass. Mild fatty infiltration of the liver is noted. No adverse change compared to old exam.
[2021-06-17] MEDS: SODIUM CHLORIDE 0.9% 1,000 ML IV SCH ×2 (00:36→09:28)
[2021-06-17] MEDS: HYDROmorphone 0.5 MG/0.5 ML SYRINGE IVP PRN ×7 (00:43→22:28)
[2021-06-17] MEDS ORDERED: HYDROcodone/APAP 5-325MG 1 EACH TAB PO PRN (08:42)
[2021-06-17] MEDS ORDERED: ONDANSETRON 4 MG/2 ML VIAL IVP PRN (08:42)
[2021-06-17] MEDS: APIXABAN 5 MG TAB PO SCH ×2 (09:25→22:27)
[2021-06-17] MEDS: lisinopriL 10 MG TAB PO SCH (09:25)
[2021-06-17] MEDS: DILTIAZEM CD 300 MG CAP.ER.24H PO SCH (09:59)
[2021-06-17] MEDS ORDERED: ALBUTEROL NEBULIZED 2.5 MG/3 ML INHALATION PRN (11:02)
--- NOTE | 2021-06-17 11:18 | P.CRDCN ---
History of Present Illness History of present illness: HISTORY OF PRESENTING ILLNESS Patient is a 54-year-old male with history of diabetes mellitus type 2, hypertension, hyperlipidemia, asthma, obstructive sleep apnea, morbid obesity, GERD PE and DVT on Eliquis, sinus tachycardia and frequent chest pains who presents secondary to recurrent chest pain. Heart catheterization 10/27/20 showed normal coronary arteries. He follows with Dr. Arora. We are being consulted for chest pain. Patient presents to the emergency department with chest pain. Patient appears anxious on exam. He states he has been having recurrent intermittent chest pain over the past 2 weeks. It is located in the center of his chest, nonradiating, nonexertional. He states he's been taking when necessary sublingual nitroglycerin for the past 2 weeks with no relief. He had some nausea. He denies palpitations, shortness of breath, lightheadedness, dizziness, syncope or near syncope. He denies any symptoms of orthopnea or PND. He does not have a history of CAD, [place], or Stroke. He is a non-smoker and denies alcohol use. DIAGNOSTICS EKGsinus tachycardia, heart rate 117, incomplete right bundle branch block. Prior EKGs with similar findings. Chest X-ray no acute cardiopulmonary process. CT angiogram revealed no pulmonary embolism. Mild fatty infiltration of the liver. No suspicious pulmonary mass. Most recent Echo 11/14/2020- EF 55-60%, trace mitral regurgitation, trace tricuspid regurgitation. Most recent Cardiac catheterization- 10/27/20- normal coronary arteries Labs showedCBC unremarkable, troponin negative 3, sodium 135, potassium 4.6, BUN 13, serum creatinine 0.4, magnesium 2.1, covid19 PCR negative REVIEW OF SYSTEMS At the time of my exam: CONSTITUTIONAL: Denies fever or chills. CARDIOVASCULAR: + chest pain, no shortness of breath, orthopnea, PND or palpitations. RESPIRATORY: Denies cough. GASTROINTESTINAL: Chronic abdominal pain, no diarrhea, constipation, nausea or vomiting. MUSCULOSKELETAL: Denies myalgias. NEUROLOGIC: Denies numbness, tingling or weakness. ENDOCRINE: Denies fatigue, weight change, polydipsia or polyurina. GENITOURINARY: Denies burning, hematuria or urgency with micturation. HEMATOLOGIC: Denies history of anemia or bleeding. PHYSICAL EXAMINATION Vital signs reviewed. CONSTITUTIONAL: No apparent distress, obese HEENT: Head is normocephalic. Pupils are equal, round. Sclerae anicteric. Mucous membranes of the mouth are moist. No JVD. No carotid bruit. CHEST EXAMINATION: Lungs are clear to auscultation. No chest wall tenderness is noted on palpation or with deep breathing. HEART EXAMINATION: Regular rate and rhythm. S1, S2 heard. No murmurs, gallops or rub. ABDOMEN: Soft, nontender. Positive bowel sounds. EXTREMITIES: 2+ peripheral pulses, no lower extremity edema and no calf tenderness. NEUROLOGIC EXAMINATION: Patient is awake, alert and oriented x3. ASSESSMENT Atypical chest pain with troponins normal 3 and recent workup with left heart catheterization 10/27/2020 showing normal coronary arteries Hypertension Sinus tachycardia Morbid obesity Diabetes mellitus type 2 Hyperlipidemia Obstructive sleep apnea PLAN We will start nadolol 20mg daily, discontinue metoprolol Check TSH Check serum metanephrines Continue Eliquis, atorvastatin, Cardizem, lisinopril If above workup with no abnormalities, and heart rate improved, ok to discharge from cardiology perspective and follow up with Dr. Arora in 1-2 weeks. Past Medical History Past Medical History: Asthma, Coronary Artery Disease (CAD), Chest Pain / Angina, Diabetes Mellitus, GERD/Reflux, GI Bleed, Hyperlipidemia, Hypertension, Myocardial Infarction ([place]), Mitral Valve Prolapse (MVP), Pulmonary Embolus (PE), Sleep Apnea/CPAP/BIPAP Additional Past Medical History / Comment(s): Asthmatic bronchitis-chronic, IDDM type II, neuropathy bilateral feet, lower and upper GI bleeds, PUD, diverticulitis, colectomy d/t benign mass/intusseption, BPH, renal cysts, nephrolithiais, UTI with sepsis, chronic back pain 2ndary to herniated lumbar discs/sciatica, JARED does not use his Cpap, MVP, murmur Last Myocardial Infarction Date:: 2011 History of Any Multi-Drug Resistant Organisms: MRSA Date of last positivie culture/infection: 2015 MDRO Source:: left axilla Past Surgical History: Appendectomy, Back Surgery, Cholecystectomy, Heart Catheterization, Hernia Repair Additional Past Surgical History / Comment(s): Lumbar dec ompression/fusion/laminectomy, spinal stimulator, T lift procedure, L inguinal hernia repair, multiple ESWLs/stents/double J caths, colonoscopy, 02/2020 colectomy, EGDs for food obstructions and dilations Past Anesthesia/Blood Transfusion Reactions: No Reported Reaction Past Psychological History: No Psychological Hx Reported Smoking Status: Never smoker Past Alcohol Use History: None Reported Past Drug Use History: None Reported - Past Family History Father Family Medical History: Chest Pain / Angina Additional Family Medical History / Comment(s): "lung problems" Mother Family Medical History: Cancer, Chest Pain / Angina, Congestive Heart Failure (CHF), Osteoarthritis (OA), Thyroid Disorder Additional Family Medical History / Comment(s): "female cancer" Medications and Allergies Home Medications Medication Instructions Recorded Confirmed Type Gabapentin [Neurontin] 300 mg PO TID 10/12/19 06/16/21 History lisinopriL [Zestril] 10 mg PO DAILY #30 tab 02/17/20 06/16/21 Rx Atorvastatin [Lipitor] 40 mg PO HS 11/13/20 06/16/21 History Apixaban [Eliquis] 5 mg PO BID 02/07/21 06/16/21 History Diltiazem Cd [Cardizem CD] 300 mg PO DAILY 02/07/21 06/16/21 History oxyCODONE-APAP 7.5-325MG [Percocet 1 tab PO Q6H PRN 03/15/21 06/16/21 History 7.5-325 mg] Albuterol Inhaler [Ventolin Hfa 2 puff INHALATION RT-QID PRN 06/16/21 06/16/21 History Inhaler] Insulin Lispro [humaLOG Kwikpen] 12 unit SQ TID-W/MEALS 06/16/21 06/16/21 History Omeprazole Magnesium [PriLOSEC OTC] 20 mg PO DAILY PRN 06/16/21 06/16/21 History nadoloL [Corgard] 20 mg PO DAILY 30 Days #30 tab 06/17/21 Rx Allergies Allergy/AdvReac Type Severity Reaction Status Date / Time doxycycline Allergy Swelling Verified 06/16/21 16:24 ketorolac tromethamine Allergy Rash/Hives Verified 06/16/21 16:24 [From Toradol] morphine Allergy Rash/Hives Verified 06/16/21 16:24 metoclopramide HCl AdvReac Dystonic Verified 06/16/21 16:24 [From Reglan] Reaction prochlorperazine edisylate AdvReac Dystonic Verified 06/16/21 16:24 [From Compazine] Reaction prochlorperazine maleate AdvReac Dystonic Verified 06/16/21 16:24 [From Compazine] Reaction tramadol AdvReac Nausea & Verified 06/16/21 16:24 Vomiting Physical Exam Vitals: Vital Signs Temp Pulse Resp BP Pulse Ox 06/17/21 04:48 103 H 17 155/90 98 06/17/21 00:46 106 H 17 167/85 96 06/16/21 16:18 98.6 F 115 H 24 180/110 99 Intake and Output 06/16/21 06/17/21 06/17/21 22:59 06:59 14:59 Other: Weight 131.542 kg Results 06/16/21 17:54 06/16/21 17:54 Cardiac Enzymes 06/16/21 06/16/21 06/17/21 Range/Units 17:54 17:54 01:20 AST 44 (17-59) U/L Troponin I <0.012 <0.012 (0.000-0.034) ng/mL 06/17/21 Range/Units 03:40 AST (17-59) U/L Troponin I <0.012 (0.000-0.034) ng/mL Coagulation 06/16/21 Range/Units 21:15 PT 9.4 (9.0-12.0) sec APTT 20.6 L (22.0-30.0) sec CBC 06/16/21 Range/Units 17:54 WBC 8.4 (3.8-10.6) k/uL RBC 5.11 (4.30-5.90) m/uL Hgb 14.9 (13.0-17.5) gm/dL Hct 44.4 (39.0-53.0) % Plt Count 208 (150-450) k/uL Comprehensive Metabolic Panel 06/16/21 Range/Units 17:54 Sodium 135 L (137-145) mmol/L Potassium 4.6 (3.5-5.1) mmol/L Chloride 103 (98-107) mmol/L Carbon Dioxide 17 L (22-30) mmol/L BUN 13 (9-20) mg/dL Creatinine 0.49 L (0.66-1.25) mg/dL Glucose 326 H (74-99) mg/dL Calcium 10.1 (8.4-10.2) mg/dL AST 44 (17-59) U/L ALT 101 H (4-49) U/L Alkaline Phosphatase 146 H (38-126) U/L Total Protein 7.5 (6.3-8.2) g/dL Albumin 4.6 (3.5-5.0) g/dL Current Medications Generic Name Dose Route Start Last Admin Trade Name Freq PRN Reason Stop Dose Admin Acetaminophen 650 mg 06/16/21 21:22 Acetaminophen Tab 325 Mg Tab PO Q6HR PRN Mild Pain or Fever > 100.5 Hydromorphone HCl 0.5 mg 06/16/21 21:22 06/17/21 04:48 Hydromorphone 0.5 Mg/0.5 Ml Syringe IVP 0.5 mg Q3HR PRN Administration Moderate Pain Sodium Chloride 1,000 mls @ 75 mls/hr 06/16/21 21:30 06/17/21 00:36 Saline 0.9% IV 75 mls/hr .[id number] JOEY Administration Naloxone HCl 0.2 mg 06/16/21 21:22 Naloxone 0.4 Mg/Ml 1 Ml Vial IV Q2M PRN Opioid Reversal Intake and Output 06/16/21 06/17/21 06/17/21 22:59 06:59 14:59 Other: Weight 131.542 kg 06/16/21 17:54 06/16/21 17:54
[2021-06-17 12:19] LABS: Glucose,Whole Blood 250 mg/dL (75-99)
[2021-06-17] MEDS: INSULIN ASPART (NovoLOG) 100 UNIT/ML VIAL SQ SCH ×2 (12:34→16:59)
[2021-06-17] MEDS: GABAPENTIN 300 MG CAP PO SCH ×2 (15:28→22:27)
[2021-06-17] MEDS: IPRATROPIUM-ALBUTEROL 3 ML NEB INHALATION PRN ×2 (15:45→20:31)
[2021-06-17 17:05] LABS: Glucose,Whole Blood 224 mg/dL (75-99)
[2021-06-17 19:51] LABS: Glucose,Whole Blood 249 mg/dL (75-99)
[2021-06-17] MEDS ORDERED: ATORVASTATIN 40 MG TAB PO SCH (21:00)
[2021-06-17] MEDS ORDERED: INSULIN DETEMIR (LEVEMIR) 100 UNIT/ML SYR SQ SCH (22:30)
--- NOTE | 2021-06-17 22:36 | P.HPIM ---
History of Present Illness H&P Date: 06/17/21 Chief Complaint: Chest pain Patient is a 55-year-old male with a known history of hypertension, hyperlipidemia, GERD, history of GI bleed, history of NH status post cardiac ca theterization and no PCI, mitral valve prolapse, history of PE on anticoagulation with Eliquis., Obstructive sleep apnea diabetes type 2, chronic asthma, bilateral lower extremity peripheral neuropathy chronic back pain due to herniated disc, obstructive sleep apnea not done CPAP and chronic pain or other medical problems presents to ER with complaints of chest pain. Patient has been having intermittent chest pain for the past 2 weeks and constant over the past couple of days. Mainly mid retrosternal and on the right side of the chest. Associate with nausea and episode of vomiting as per patient. Sometimes radiation to the back. No radiation to the left upper extremity or jaw pain. Patient also felt sweaty. Presents to ER for evaluation. No complaints of fever or chills. Denied any recent illnesses. Chest x-ray showed no active cardiopulmonary disease. EKG showed sinus tachycardia CT angio of the chest showed no evidence of PE. No suspicious pulmonary mass. Mild fatty infiltration of the liver is noted. Laboratory showed sodium 135 potassium 4.6 chloride 103 Blood sugar is 326 BUN 13 and creatinine 0.49 AST 44 ALT 101 alk phos 146 and troponin x3 - and TSH level is 0.258 Free T4 level is pending. Coronavirus PCR not detected. Review of Systems Constitutional: Patient denies any fever or chills . No generalized weakness or weight loss. Abdomen: Patient denied nausea vomiting and diarrhea and abdominal pain. Cardiovascular: Patient denies any chest pain or short of breath no palpitations. Respiratory: patient denied any cough or sputum production. No shortness of breath Neurologic: Patient denied any numbness or tingling headache. Musculoskeletal: Patient denies any complaints of joint swelling or deformity. Complaints of back pain Skin: Negative Psychiatric: Negative Endocrine: No heat or cold intolerance. No recent weight gain. Genitourinary: No dysuria or hematuria. All other 14 point ROS negative except the above Past Medical History Past Medical History: Asthma, Coronary Artery Disease (CAD), Chest Pain / Angina, Diabetes Mellitus, GERD/Reflux, GI Bleed, Hyperlipidemia, Hypertension, Myocardial Infarction ([place]), Mitral Valve Prolapse (MVP), Pulmonary Embolus (PE), Sleep Apnea/CPAP/BIPAP Additional Past Medical History / Comment(s): Asthmatic bronchitis-chronic, IDDM type II, neuropathy bilateral feet, lower and upper GI bleeds, PUD, diverticulitis, colectomy d/t benign mass/intusseption, BPH, renal cysts, nephrolithiais, UTI with sepsis, chronic back pain 2ndary to herniated lumbar discs/sciatica, JARED does not use his Cpap, MVP, murmur Last Myocardial Infarction Date:: 2011 History of Any Multi-Drug Resistant Organisms: MRSA Date of last positivie culture/infection: 2016 MDRO Source:: left axilla Past Surgical History: Appendectomy, Back Surgery, Cholecystectomy, Heart Catheterization, Hernia Repair Additional Past Surgical History / Comment(s): Lumbar decompressio n/fusion/laminectomy, spinal stimulator, T lift procedure, L inguinal hernia repair, multiple ESWLs/stents/double J caths, colonoscopy, 02/2020 colectomy, EGDs for food obstructions and dilations Past Anesthesia/Blood Transfusion Reactions: No Reported Reaction Past Psychological History: No Psychological Hx Reported Smoking Status: Never smoker Past Alcohol Use History: None Reported Past Drug Use History: None Reported - Past Family History Father Family Medical History: Chest Pain / Angina Additional Family Medical History / Comment(s): "lung problems" Mother Family Medical History: Cancer, Chest Pain / Angina, Congestive Heart Failure (CHF), Osteoarthritis (OA), Thyroid Disorder Additional Family Medical History / Comment(s): "female cancer" Medications and Allergies Home Medications Medication Instructions Recorded Confirmed Type Gabapentin [Neurontin] 300 mg PO TID 10/12/19 06/16/21 History lisinopriL [Zestril] 10 mg PO DAILY #30 tab 02/17/20 06/16/21 Rx Atorvastatin [Lipitor] 40 mg PO HS 11/13/20 06/16/21 History Apixaban [Eliquis] 5 mg PO BID 02/07/21 06/16/21 History Diltiazem Cd [Cardizem CD] 300 mg PO DAILY 02/07/21 06/16/21 History oxyCODONE-APAP 7.5-325MG [Percocet 1 tab PO Q6H PRN 03/15/21 06/16/21 History 7.5-325 mg] Albuterol Inhaler [Ventolin Hfa 2 puff INHALATION RT-QID PRN 06/16/21 06/16/21 History Inhaler] Insulin Lispro [humaLOG Kwikpen] 12 unit SQ TID-W/MEALS 06/16/21 06/16/21 History Omeprazole Magnesium [PriLOSEC OTC] 20 mg PO DAILY PRN 06/16/21 06/16/21 History nadoloL [Corgard] 20 mg PO DAILY 30 Days #30 tab 06/17/21 Rx Allergies Allergy/AdvReac Type Severity Reaction Status Date / Time doxycycline Allergy Swelling Verified 06/16/21 16:24 ketorolac tromethamine Allergy Rash/Hives Verified 06/16/21 16:24 [From Toradol] morphine Allergy Rash/Hives Verified 06/16/21 16:24 metoclopramide HCl AdvReac Dystonic Verified 06/16/21 16:24 [From Reglan] Reaction prochlorperazine edisylate AdvReac Dystonic Verified 06/16/21 16:24 [From Compazine] Reaction prochlorperazine maleate AdvReac Dystonic Verified 06/16/21 16:24 [From Compazine] Reaction tramadol AdvReac Nausea & Verified 06/16/21 16:24 Vomiting Physical Exam Vitals: Vital Signs Temp Pulse Resp BP Pulse Ox 06/17/21 04:48 103 H 17 155/90 98 06/17/21 00:46 106 H 17 167/85 96 06/16/21 16:18 98.6 F 115 H 24 180/110 99 Intake and Output 06/16/21 06/17/21 06/17/21 22:59 06:59 14:59 Other: Weight 131.542 kg PHYSICAL EXAMINATION: Patient is lying in the bed comfortably, no acute distress, awake alert and oriented.. HEENT: Normocephalic. Neck is supple. Pupils reactive. Nostrils clear. Oral cavity is moist. Neck reveals no JVD, carotid bruits, or thyromegaly. CHEST EXAMINATION: Trachea is central. Symmetrical expansion.Mild expiratory wheezing. Lung turner clear to auscultation and percussion. CARDIAC: Normal S1, S2 with no gallops. No murmurs ABDOMEN: Soft. Bowel sounds normal. No organomegaly. No abdominal bruits. Extremities: reveal no edema. No clubbing or cyanosis Neurologically awake, alert, oriented x3 with well-coordinated movements. No focal deficits noted Skin: No rash or skin lesions. Psychiatric: Cooperative. Nonsuicidal, anxious. Musculoskeletal: No joint swelling or deformity. Normal range of motion. Results CBC & Chem 7: 06/16/21 17:54 06/16/21 17:54 Labs: Abnormal Lab Results - Last 24 Hours (Table) 06/16/21 06/16/21 06/17/21 Range/Units 17:54 21:15 09:22 APTT 20.6 L (22.0-30.0) sec Sodium 135 L (137-145) mmol/L Carbon Dioxide 17 L (22-30) mmol/L Creatinine 0.49 L (0.66-1.25) mg/dL Glucose 326 H (74-99) mg/dL ALT 101 H (4-49) U/L Alkaline Phosphatase 146 H (38-126) U/L TSH 0.258 L (0.465-4.680) mIU/L Thrombosis Risk Factor Assmnt - DVT/VTE Prophylaxis DVT/VTE Prophylaxis: Pharmacologic Prophylaxis ordered Assessment and Plan Assessment: Atypical chest pain. Ruled out ACS. Prior history of cardiac catheterization in October 2020 showed normal coronaries. Hyperglycemia with uncontrolled diabetes type 2 Uncontrolled hypertension on admission Hyperlipidemia Sinus tachycardia Low TSH level and follow-up free T4 level. Obstructive sleep apnea not on CPAP at home Morbid obesity with BMI 40.4 Chronic bronchial asthma Chronic back pain with herniated disc Bilateral peripheral neuropathy of the feet diabetic History of GI bleed History of NH Mitral valve prolapse History of PE currently on anticoagulation with Eliquis DVT prophylaxis patient is already on full anticoagulation. Plan: Patient will be current telemetry monitoring. Will be started back on insulin regimen and titrate dose as needed. Continue with insulin sliding scale. Cardiology has seen the patient was started on nadolol 20 mg daily and metoprolol has been discontinued. Follow-up free T4 level and methamphetamine levels were also ordered. Continue with home medication including Eliquis, statins and Cardizem and lisinopril. Duo nebs as needed. Continue with pain management with Dilaudid for the next 24 hours. Follow-up closely. Time with Patient: Greater than 30
[2021-06-17 23:45] LABS: Glucose,Whole Blood 245 mg/dL (75-99)
[2021-06-18] MEDS: SODIUM CHLORIDE 0.9% 1,000 ML IV SCH
[2021-06-18] MEDS: HYDROmorphone 0.5 MG/0.5 ML SYRINGE IVP PRN ×4 (02:00→14:26)
[2021-06-18 03:04] VITALS: RESP 18
[2021-06-18 06:13] LABS: African American GFR (CKD) >90 (>60 ml/min/1.73 sqM); Anion Gap 10 mmol/L; Blood Urea Nitrogen 17 mg/dL (9-20); Calcium 8.9 mg/dL (8.4-10.2); Carbon Dioxide 16 mmol/L (22-30); Chloride 107 mmol/L (98-107); Glucose 320 mg/dL (74-99); Non-African American GFR(CKD) >90 (>60 ml/min/1.73 sqM); Sodium 133 mmol/L (137-145)
[2021-06-18 06:14] LABS: Potassium 5.2 mmol/L (3.5-5.1)
[2021-06-18 06:29] LABS: Basophils # (A) 0.1 k/uL (0-0.2); Basophils % (A) 1 %; Eosinophils # (A) 0.3 k/uL (0-0.7); Eosinophils % (A) 5 %; HCT 44.6 % (39.0-53.0); HGB 15.2 gm/dL (13.0-17.5); Lymphocytes # (A) 1.6 k/uL (1.0-4.8); Lymphocytes % (A) 29 %; MCH 30.3 pg (25.0-35.0); MCV 89.1 fL (80.0-100.0); Mean Platelet Volume 8.5; Monocytes # (A) 0.4 k/uL (0-1.0); Monocytes % (A) 7 %; Neutrophils # (A) 3.2 k/uL (1.3-7.7); Neutrophils % (A) 56 %; Platelet Count 198 k/uL (150-450); RBC 5.01 m/uL (4.30-5.90); RDW 14.2 % (11.5-15.5); WBC 5.7 k/uL (3.8-10.6)
[2021-06-18 07:32] LABS: Glucose,Whole Blood 298 mg/dL (75-99)
[2021-06-18] MEDS: IPRATROPIUM-ALBUTEROL 3 ML NEB INHALATION PRN (07:35)
[2021-06-18] MEDS: INSULIN ASPART (NovoLOG) 100 UNIT/ML VIAL SQ SCH ×2 (08:29→12:41)
[2021-06-18] MEDS: GABAPENTIN 300 MG CAP PO SCH (08:30)
[2021-06-18] MEDS: APIXABAN 5 MG TAB PO SCH (08:30)
[2021-06-18] MEDS: lisinopriL 10 MG TAB PO SCH (08:30)
[2021-06-18] MEDS: DILTIAZEM CD 300 MG CAP.ER.24H PO SCH (08:31)
[2021-06-18] MEDS ORDERED: HYDROcodone/APAP 5-325MG 1 EACH TAB PO STA (10:51)
[2021-06-18] MEDS ORDERED: INSULIN DETEMIR (LEVEMIR) 100 UNIT/ML SYR SQ ONE (11:30)
[2021-06-18 12:27] LABS: Glucose,Whole Blood 249 mg/dL (75-99)
[2021-06-18 14:45] VITALS: BP 101/66; PULSE 68; TEMP 98.4
[2021-06-18] MEDS ORDERED: INSULIN DETEMIR (LEVEMIR) 100 UNIT/ML SYR SQ SCH (21:00)
--- NOTE | 2021-06-18 22:21 | P.DS ---
Providers Date of admission: 06/16/21 21:22 Attending physician: Reid Deal Consults: 06/16/21 21:22 Consult Physician Routine Consulting Provider: Miguel Arora Consult Reason/Comments: CP rule out Do you want consulting provider notified?: Yes Primary care physician: Trav Muniz [facility] Course: Activities: Atypical chest pain. Ruled out ACS. Prior history of cardiac catheterization in October 2020 showed normal coronaries. CTA is negative for PE most likely musculoskeletal pain diabetes type 2 hypertension Hyperlipidemia Sinus tachycardia Low TSH level and follow-up free T4 level. Obstructive sleep apnea not on CPAP at home Morbid obesity with BMI 40.4 Chronic bronchial asthma Chronic back pain with herniated disc Bilateral peripheral neuropathy of the feet diabetic History of GI bleed History of [place] Mitral valve prolapse History of PE currently on anticoagulation with Eliquis Hospital course Patient is a 55-year-old male with a known history of hypertension, hyperlipidemia, GERD, history of GI bleed, history of [place] status post cardiac catheterization and no PCI, mitral valve prolapse, history of PE on anticoagulation with Eliquis., Obstructive sleep apnea diabetes type 2, chronic asthma, bilateral lower extremity peripheral neuropathy chronic back pain due to herniated disc, obstructive sleep apnea not done CPAP and chronic pain or other medical problems presents to ER with complaints of chest pain. His symptoms was going on for the last 2 weeks. He denies any dyspnea or coughing. No other complaints. On admission he has negative CTA of the chest for pulmonary embolism Reproduction Specialist also evaluated the patient and recommended to check thyroid function test which was normal free T4 at 1.0. Also they switched his metoprolol and to nadolol. And recommended to continue with Eliquis. Patient cleared for discharge by rag cutting machine operator with recommendation for outpatient follow- up with Dr. Arora. Problems and management plan were discussed with the patient and he verbalized understanding and acceptance Patient was found stable and can be discharged home however he needs follow-up as an outpatient. Patient was instructed to follow up with PCP Dr. Muniz within one week and patient agrees Patient was instructed to follow up with Dr. Arora in 1-2 weeks and he agrees to: Neck is on appointments Physical exam Gen: patient is a AAOx3, no distress CVS: S1-S2, RRR, no murmur Lungs: B/L CTA, no wheezing Abdomen: soft, no distention, no tenderness, positive bowel sounds Extremity: no leg edema or induration Time spent more than 35 minutes Patient Condition at Discharge: Stable Plan - Discharge Summary Discharge Rx Participant: Yes New Discharge Prescriptions: New nadoloL [Corgard] 20 mg PO DAILY 30 Days #30 tab Continue Gabapentin [Neurontin] 300 mg PO TID lisinopriL [Zestril] 10 mg PO DAILY #30 tab Insulin Lispro [humaLOG Kwikpen] 12 unit SQ TID-W/MEALS Albuterol Inhaler [Ventolin Hfa Inhaler] 2 puff INHALATION RT-QID PRN PRN Reason: Shortness Of Breath Omeprazole Magnesium [PriLOSEC OTC] 20 mg PO DAILY PRN PRN Reason: ACID REFLUX Atorvastatin [Lipitor] 40 mg PO HS Diltiazem Cd [Cardizem CD] 300 mg PO DAILY Apixaban [Eliquis] 5 mg PO BID oxyCODONE-APAP 7.5-325MG [Percocet 7.5-325 mg] 1 tab PO Q6H PRN PRN Reason: Pain Discontinued Nitroglycerin Sl Tabs [Nitrostat] 0.4 mg SUBLINGUAL Q5M PRN #20 tab PRN Reason: Chest Pain Metoprolol Tartrate [Lopressor] 25 mg PO TID Discharge Medication List Gabapentin [Neurontin] 300 mg PO TID 10/12/19 [History] lisinopriL [Zestril] 10 mg PO DAILY #30 tab 02/17/20 [Rx] Atorvastatin [Lipitor] 40 mg PO HS 11/13/20 [History] Apixaban [Eliquis] 5 mg PO BID 02/07/21 [History] Diltiazem Cd [Cardizem CD] 300 mg PO DAILY 02/07/21 [History] oxyCODONE-APAP 7.5-325MG [Percocet 7.5-325 mg] 1 tab PO Q6H PRN 03/15/21 [History] Albuterol Inhaler [Ventolin Hfa Inhaler] 2 puff INHALATION RT-QID PRN 06/16/21 [History] Insulin Lispro [humaLOG Kwikpen] 12 unit SQ TID-W/MEALS 06/16/21 [History] Omeprazole Magnesium [PriLOSEC OTC] 20 mg PO DAILY PRN 06/16/21 [History] nadoloL [Corgard] 20 mg PO DAILY 30 Days #30 tab 06/17/21 [Rx] Follow up Appointment(s)/Referral(s): Miguel Arora MD [STAFF PHYSICIAN] - 2 Weeks (follow up your metanephrin test with your doctor please ) Trav Muniz MD [Primary Care Provider] - 1-2 days (follow up your metanephrin test with your doctor please ) Patient Instructions/Handouts: Chest Pain (GEN) Activity/Diet/Wound Care/Special Instructions: heart healthy diet activity is restricted till you see your doctor Continue with insulin home dose of Bagilar insline pen at bedtime We recommend to check your glucose 4 times a day, before each meal and at bedtime, keep the results in a log book and bring it to your doctor on your appointment date If her glucose is less than 70 or more than 400 then call 911 and come to emergency room Discharge Disposition: HOME SELF-CARE
[2021-06-24 22:37] LABS: Metanephrine, Free <25 pg/mL (< OR = 57); Normetanephrine, Free 34 pg/mL (< OR = 148); Total, Free (MN + NMN) 34 pg/mL (< OR = 205)
== END 2021-06-18 15:30 | disposition home or self-care (01) ==
LOC: EC 16:13 → 1SOBS 21:22 → 6NMEDSUR 06-17 08:47
PROVIDERS: ADMIT Hospitalist; ATTEND Hospitalist
DX: R07.2 Precordial pain (principal); E11.42 Type 2 diabetes mellitus with diabetic polyneuropathy; E11.65 Type 2 diabetes mellitus with hyperglycemia; I10 Essential (primary) hypertension; E78.5 Hyperlipidemia, unspecified; R00.0 Tachycardia, unspecified; Z20.822 Contact with and (suspected) exposure to COVID-19; G47.33 Obstructive sleep apnea (adult) (pediatric); E66.01 Morbid (severe) obesity due to excess calories; Z68.41 Body mass index [BMI] 40.0-44.9, adult; K57.90 Diverticulosis of intestine, part unspecified, without perforation or abscess without bleeding; J45.909 Unspecified asthma, uncomplicated; M51.16 Intervertebral disc disorders with radiculopathy, lumbar region; G89.29 Other chronic pain; I25.2 Old myocardial infarction; I34.1 Nonrheumatic mitral (valve) prolapse; I25.10 Atherosclerotic heart disease of native coronary artery without angina pectoris; I45.10 Unspecified right bundle-branch block; K76.0 Fatty (change of) liver, not elsewhere classified; N40.0 Benign prostatic hyperplasia without lower urinary tract symptoms; Z79.899 Other long term (current) drug therapy; Z79.01 Long term (current) use of anticoagulants; Z79.4 Long term (current) use of insulin; Z88.8 Allergy status to other drugs, medicaments and biological substances; Z88.5 Allergy status to narcotic agent; Z88.1 Allergy status to other antibiotic agents; Z88.6 Allergy status to analgesic agent; Z87.442 Personal history of urinary calculi; Z98.1 Arthrodesis status; Z87.11 Personal history of peptic ulcer disease; Z90.49 Acquired absence of other specified parts of digestive tract; Z86.718 Personal history of other venous thrombosis and embolism; Z86.14 Personal history of Methicillin resistant Staphylococcus aureus infection; Z86.711 Personal history of pulmonary embolism; Z82.49 Family history of ischemic heart disease and other diseases of the circulatory system
CPT/HCPCS: 99285; 96376 ×3; 96361 ×2; 96374; 96375; 36415; 94640 ×3; 93005; 83835; 84439; 80053; 80048; 84443; 83735; 84132; 84484 ×2; 85025 ×2; 85610; 85730; 87635; 71046; 71275; G0378 ×3; J2405; J1170 ×3; Q9967

== ENCOUNTER 2021-06-29 19:41 | Emergency (ER) | payer OTHER ==
[2021-06-29 22:53] VITALS: TEMP 98.3
--- NOTE | 2021-06-29 22:57 | ED ---
General Adult HPI - General Stated complaint: Chest Pain Time Seen by Provider: 06/29/21 22:52 - History of Present Illness Initial comments: 55 year-old male patient presents to the emergency department for evaluation of chest pain. States he woke up with the pain this afternoon. Pain is in the center of his chest, states it radiates to his jaw and left arm. Reports nausea and denies vomiting. Denies cough, fever, or chills. Reports shortness of breat h. Does have history of CAD, HTN, DM. Denies any aspirin today. States nitro in the ambulance did help a little. - Related Data Home Medications Medication Instructions Recorded Confirmed Gabapentin [Neurontin] 300 mg PO TID 10/12/19 06/16/21 Atorvastatin [Lipitor] 40 mg PO HS 11/13/20 06/16/21 Apixaban [Eliquis] 5 mg PO BID 02/07/21 06/16/21 Diltiazem Cd [Cardizem CD] 300 mg PO DAILY 02/07/21 06/16/21 oxyCODONE-APAP 7.5-325MG [Percocet 1 tab PO Q6H PRN 03/15/21 06/16/21 7.5-325 mg] Albuterol Inhaler [Ventolin Hfa 2 puff INHALATION RT-QID PRN 06/16/21 06/16/21 Inhaler] Insulin Lispro [humaLOG Kwikpen] 12 unit SQ TID-W/MEALS 06/16/21 06/16/21 Omeprazole Magnesium [PriLOSEC OTC] 20 mg PO DAILY PRN 06/16/21 06/16/21 Previous Rx's Medication Instructions Recorded lisinopriL [Zestril] 10 mg PO DAILY #30 tab 02/17/20 nadoloL [Corgard] 20 mg PO DAILY 30 Days #30 tab 06/17/21 Allergies Allergy/AdvReac Type Severity Reaction Status Date / Time doxycycline Allergy Swelling Verified 06/29/21 22:53 ketorolac tromethamine Allergy Rash/Hives Verified 06/29/21 22:53 [From Toradol] morphine Allergy Rash/Hives Verified 06/29/21 22:53 metoclopramide HCl AdvReac Dystonic Verified 06/29/21 22:53 [From Reglan] Reaction prochlorperazine edisylate AdvReac Dystonic Verified 06/29/21 22:53 [From Compazine] Reaction prochlorperazine maleate AdvReac Dystonic Verified 06/29/21 22:53 [From Compazine] Reaction tramadol AdvReac Nausea & Verified 06/29/21 22:53 Vomiting Review of Systems ROS Statement: Those systems with pertinent positive or pertinent negative responses have been documented in the HPI. ROS Other: All systems not noted in ROS Statement are negative. Past Medical History Past Medical History: Asthma, Coronary Artery Disease (CAD), Chest Pain / Angina, Diabetes Mellitus, GERD/Reflux, GI Bleed, Hyperlipidemia, Hypertension, Myocardial Infarction ([place]), Mitral Valve Prolapse (MVP), Pulmonary Embolus (PE), Sleep Apnea/CPAP/BIPAP Additional Past Medical History / Comment(s): Asthmatic bronchitis-chronic, IDDM type II, neuropathy bilateral feet, lower and upper GI bleeds, PUD, diverticulitis, colectomy d/t benign mass/intusseption, BPH, renal cysts, nephrolithiais, UTI with sepsis, chronic back pain 2ndary to herniated lumbar discs/sciatica, JARED does not use his Cpap, MVP, murmur Last Myocardial Infarction Date:: 2011 History of Any Multi-Drug Resistant Organisms: MRSA Date of last positivie culture/infection: 2015 MDRO Source:: left axilla Past Surgical History: Appendectomy, Back Surgery, Cholecystectomy, Heart Catheterization, Hernia Repair Additional Past Surgical History / Comment(s): Lumbar decompression/fu jose/laminectomy, spinal stimulator, T lift procedure, L inguinal hernia repair, multiple ESWLs/stents/double J caths, colonoscopy, 02/2020 colectomy, EGDs for food obstructions and dilations Past Anesthesia/Blood Transfusion Reactions: No Reported Reaction Past Psychological History: No Psychological Hx Reported Smoking Status: Never smoker Past Alcohol Use History: None Reported Past Drug Use History: None Reported - Past Family History Father Family Medical History: Chest Pain / Angina Additional Family Medical History / Comment(s): "lung problems" Mother Family Medical History: Cancer, Chest Pain / Angina, Congestive Heart Failure (CHF), Osteoarthritis (OA), Thyroid Disorder Additional Family Medical History / Comment(s): "female cancer" General Exam General appearance: alert, in no apparent distress, other (This is a well- developed, well-nourished adult male in no acute distress.) ENT exam: Present: normal exam, normal oropharynx, mucous membranes moist Respiratory exam: Present: normal lung sounds bilaterally. Absent: respiratory distress, wheezes, rales, rhonchi, stridor Cardiovascular Exam: Present: normal rhythm, tachycardia, normal heart sounds. Absent: systolic murmur, diastolic murmur, rubs, gallop, clicks GI/Abdominal exam: Present: soft, normal bowel sounds. Absent: distended, tenderness, guarding, rebound, rigid Neurological exam: Present: alert, oriented X3, CN II-XII intact Psychiatric exam: Present: normal affect, normal mood Skin exam: Present: warm, dry, intact, normal color. 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 Physical examination is unremarkable. Lungs are clear to auscultation with good air movement. Pain started in the early afternoon. Labs reviewed and revealed normal troponin. Normal white blood cell count. Blood sugar is elevated. Chest x-ray negative. EKG showed no changes. He is given IM pain medication. Upon reevaluation he states he is feeling somewhat improved. He was recently admitted for cardiology evaluation and was discharged. He'll be discharged today to follow up with cardiology has primary care physician. Return parameters were discussed in detail. He verbalizes understanding and agrees with this plan. My attending is Dr. Hernandez. - Lab Data Result diagrams: 06/29/21 23:08 06/29/21 23:08 Lab Results 06/29/21 06/29/21 06/29/21 Range/Units 23:08 23:08 23:08 WBC 6.8 (3.8-10.6) k/uL RBC 5.16 (4.30-5.90) m/uL Hgb 14.9 (13.0-17.5) gm/dL Hct 44.4 (39.0-53.0) % MCV 85.9 (80.0-100.0) fL MCH 28.8 (25.0-35.0) pg MCHC 33.5 (31.0-37.0) g/dL RDW 13.4 (11.5-15.5) % Plt Count 274 (150-450) k/uL MPV 7.6 Neutrophils % 63 % Lymphocytes % 24 % Monocytes % 6 % Eosinophils % 4 % Basophils % 1 % Neutrophils # 4.3 (1.3-7.7) k/uL Lymphocytes # 1.7 (1.0-4.8) k/uL Monocytes # 0.4 (0-1.0) k/uL Eosinophils # 0.3 (0-0.7) k/uL Basophils # 0.1 (0-0.2) k/uL PT 9.6 (9.0-12.0) sec INR 0.9 (<1.2) APTT 20.3 L (22.0-30.0) sec Sodium 133 L (137-145) mmol/L Potassium 4.2 (3.5-5.1) mmol/L Chloride 100 (98-107) mmol/L Carbon Dioxide 19 L (22-30) mmol/L Anion Gap 14 mmol/L BUN 17 (9-20) mg/dL Creatinine 0.46 L (0.66-1.25) mg/dL Est GFR (CKD-EPI)AfAm >90 (>60 ml/min/1.73 sqM) Est GFR (CKD-EPI)NonAf >90 (>60 ml/min/1.73 sqM) Glucose 345 H (74-99) mg/dL Calcium 10.0 (8.4-10.2) mg/dL Magnesium 1.9 (1.6-2.3) mg/dL Total Bilirubin 0.5 (0.2-1.3) mg/dL AST 28 (17-59) U/L ALT 39 (4-49) U/L Alkaline Phosphatase 120 (38-126) U/L Troponin I (0.000-0.034) ng/mL Total Protein 7.3 (6.3-8.2) g/dL Albumin 4.4 (3.5-5.0) g/dL Lipase 67 (23-300) U/L 06/29/ Range/Units 23:08 WBC (3.8-10.6) k/uL RBC (4.30-5.90) m/uL Hgb (13.0-17.5) gm/dL Hct (39.0-53.0) % MCV (80.0-100.0) fL MCH (25.0-35.0) pg MCHC (31.0-37.0) g/dL RDW (11.5-15.5) % Plt Count (150-450) k/uL MPV Neutrophils % % Lymphocytes % % Monocytes % % Eosinophils % % Basophils % % Neutrophils # (1.3-7.7) k/uL Lymphocytes # (1.0-4.8) k/uL Monocytes # (0-1.0) k/uL Eosinophils # (0-0.7) k/uL Basophils # (0-0.2) k/uL PT (9.0-12.0) sec INR (<1.2) APTT (22.0-30.0) sec Sodium (137-145) mmol/L Potassium (3.5-5.1) mmol/L Chloride (98-107) mmol/L Carbon Dioxide (22-30) mmol/L Anion Gap mmol/L BUN (9-20) mg/dL Creatinine (0.66-1.25) mg/dL Est GFR (CKD-EPI)AfAm (>60 ml/min/1.73 sqM) Est GFR (CKD-EPI)NonAf (>60 ml/min/1.73 sqM) Glucose (74-99) mg/dL Calcium (8.4-10.2) mg/dL Magnesium (1.6-2.3) mg/dL Total Bilirubin (0.2-1.3) mg/dL AST (17-59) U/L ALT (4-49) U/L Alkaline Phosphatase (38-126) U/L Troponin I <0.012 (0.000-0.034) ng/mL Total Protein (6.3-8.2) g/dL Albumin (3.5-5.0) g/dL Lipase (23-300) U/L - Radiology Data Radiology results: report reviewed, image reviewed 2 views of the chest are obtained. Report was reviewed in its entirety. Impression by Dr. Davila shows no active cardiopulmonary disease. Normal heart. No change. 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 Return to the emergency department for any new, worsening, or concerning symptoms. Is patient prescribed a controlled substance at d/c from ED?: No Referrals: Trav Muniz MD [Primary Care Provider] - 1-2 days Time of Disposition: 01:14
[2021-06-29] MEDS ORDERED: ONDANSETRON 4 MG/2 ML VIAL IVP STA (23:30)
[2021-06-29] MEDS ORDERED: HYDROmorphone 1 MG/ML 1 ML SYRINGE IVP STA (23:30)
[2021-06-29 23:33] LABS: Basophils # (A) 0.1 k/uL (0-0.2); Basophils % (A) 1 %; Eosinophils # (A) 0.3 k/uL (0-0.7); Eosinophils % (A) 4 %; HCT 44.4 % (39.0-53.0); HGB 14.9 gm/dL (13.0-17.5); Lymphocytes # (A) 1.7 k/uL (1.0-4.8); Lymphocytes % (A) 24 %; MCH 28.8 pg (25.0-35.0); MCHC 33.5 g/dL (31.0-37.0); MCV 85.9 fL (80.0-100.0); Mean Platelet Volume 7.6; Monocytes # (A) 0.4 k/uL (0-1.0); Monocytes % (A) 6 %; Neutrophils # (A) 4.3 k/uL (1.3-7.7); Neutrophils % (A) 63 %; Platelet Count 274 k/uL (150-450); RBC 5.16 m/uL (4.30-5.90); RDW 13.4 % (11.5-15.5); WBC 6.8 k/uL (3.8-10.6)
--- NOTE | 2021-06-29 23:40 | XR ---
EXAMINATION TYPE: XR chest 2V DATE OF EXAM: 06/29/2021 COMPARISON: 06/16/2021 HISTORY: Chest pain TECHNIQUE: FINDINGS: Heart and mediastinum appear normal. Lungs are clear. Diaphragm is normal. There is neural stimulator in the lower thoracic spine. There are no hilar masses. Bony thorax is intact. IMPRESSION: No active cardiopulmonary disease. Normal heart. No change.
[2021-06-29 23:44] LABS: ALT 39 U/L (4-49); AST 28 U/L (17-59); African American GFR (CKD) >90 (>60 ml/min/1.73 sqM); Albumin 4.4 g/dL (3.5-5.0); Alkaline Phosphatase 120 U/L (38-126); Anion Gap 14 mmol/L; Blood Urea Nitrogen 17 mg/dL (9-20); Carbon Dioxide 19 mmol/L (22-30); Chloride 100 mmol/L (98-107); Glucose 345 mg/dL (74-99); Lipase 67 U/L (23-300); Magnesium 1.9 mg/dL (1.6-2.3); Non-African American GFR(CKD) >90 (>60 ml/min/1.73 sqM); Potassium 4.2 mmol/L (3.5-5.1); Sodium 133 mmol/L (137-145); Total Bilirubin 0.5 mg/dL (0.2-1.3); Total Protein 7.3 g/dL (6.3-8.2)
[2021-06-29 23:52] LABS: INR 0.9 (<1.2); Prothrombin Time 9.6 sec (9.0-12.0)
[2021-06-30 00:04] LABS: Partial Thromboplastin Time 20.3 sec (22.0-30.0)
[2021-06-30] MEDS ORDERED: INSULIN ASPART (NovoLOG) 100 UNIT/ML VIAL SQ STA (00:10)
[2021-06-30] MEDS ORDERED: HYDROmorphone 1 MG/ML 1 ML SYRINGE IM STA (01:16)
[2021-06-30 01:43] VITALS: BP 170/106; PULSE 103; RESP 18
== END 2021-06-30 01:44 | disposition home or self-care (01) ==
LOC: EC 19:41
DX: R07.89 Other chest pain (principal); J45.909 Unspecified asthma, uncomplicated; E11.9 Type 2 diabetes mellitus without complications; I25.2 Old myocardial infarction; I10 Essential (primary) hypertension; E78.5 Hyperlipidemia, unspecified; K21.9 Gastro-esophageal reflux disease without esophagitis; I25.10 Atherosclerotic heart disease of native coronary artery without angina pectoris; Z88.6 Allergy status to analgesic agent; Z88.8 Allergy status to other drugs, medicaments and biological substances; Z88.5 Allergy status to narcotic agent; Z88.1 Allergy status to other antibiotic agents; Z79.899 Other long term (current) drug therapy; Z79.01 Long term (current) use of anticoagulants; Z79.4 Long term (current) use of insulin
CPT/HCPCS: 36415; 93005; 80053; 83690; 83735; 84484; 85025; 85610; 85730; 71046; 99285; 96374; 96372; 96375; J2405; J1170; 96376

== ENCOUNTER 2021-07-18 08:00 | Observation (INO) | payer OTHER ==
[2021-07-18] MEDS ORDERED: methylPREDNISolone SOD SUCCI 125 MG/2 ML VIAL IV STA (08:37)
[2021-07-18] MEDS ORDERED: ALBUTEROL HFA INHALER INHALATION STA (08:37)
[2021-07-18] MEDS ORDERED: ACETAMINOPHEN TAB 500 MG TAB PO STA (08:40)
[2021-07-18] MEDS ORDERED: SODIUM CHLORIDE 0.9% 500 ML 500 ML IV STA (08:40)
--- NOTE | 2021-07-18 08:40 | ED ---
General Adult HPI - General Chief complaint: Shortness of Breath Stated complaint: SIRENA, cough Time Seen by Provider: 07/18/21 08:03 Source: patient, EMS, RN notes reviewed Mode of arrival: EMS Limitations: no limitations - History of Present Illness Initial comments: Patient is a pleasant 55-year-old male presenting to the emergency Department with cough and difficulty breathing. Onset of symptoms was last night. Patient does have some mild pressure in his chest. Pressure has been waxing and waning. Patient does have cough with occasional sputum, unclear in color. Patient does feel short of breath. Patient has had pneumonia several times previously with some similar symptoms. Patient has not been vaccinated for COVID-19 infection. Patient had temperature of 99. No leg pain or leg swelling. Patient is on Eliquis. Patient has been taking this. - Related Data Home Medications Medication Instructions Recorded Confirmed Gabapentin [Neurontin] 300 mg PO TID 10/12/19 06/16/21 Atorvastatin [Lipitor] 40 mg PO HS 11/13/20 06/16/21 Apixaban [Eliquis] 5 mg PO BID 02/07/21 06/16/21 Diltiazem Cd [Cardizem CD] 300 mg PO DAILY 02/07/21 06/16/21 oxyCODONE-APAP 7.5-325MG [Percocet 1 tab PO Q6H PRN 03/15/21 06/16/21 7.5-325 mg] Albuterol Inhaler [Ventolin Hfa 2 puff INHALATION RT-QID PRN 06/16/21 06/16/21 Inhaler] Insulin Lispro [humaLOG Kwikpen] 12 unit SQ TID-W/MEALS 06/16/21 06/16/21 Omeprazole Magnesium [PriLOSEC OTC] 20 mg PO DAILY PRN 06/16/21 06/16/21 Previous Rx's Medication Instructions Recorded lisinopriL [Zestril] 10 mg PO DAILY #30 tab 02/17/20 nadoloL [Corgard] 20 mg PO DAILY 30 Days #30 tab 06/17/21 Allergies Allergy/AdvReac Type Severity Reaction Status Date / Time doxycycline Allergy Swelling Verified 07/18/21 08:23 ketorolac tromethamine Allergy Rash/Hives Verified 07/18/21 08:23 [From Toradol] morphine Allergy Rash/Hives Verified 07/18/21 08:23 metoclopramide HCl AdvReac Dystonic Verified 07/18/21 08:23 [From Reglan] Reaction prochlorperazine edisylate AdvReac Dystonic Verified 07/18/21 08:23 [From Compazine] Reaction prochlorperazine maleate AdvReac Dystonic Verified 07/18/21 08:23 [From Compazine] Reaction tramadol AdvReac Nausea & Verified 07/18/21 08:23 Vomiting Review of Systems ROS Statement: Those systems with pertinent positive or pertinent negative responses have been documented in the HPI. ROS Other: All systems not noted in ROS Statement are negative. Constitutional: Reports: as per HPI Eyes: Denies: eye pain ENT: Denies: ear pain Respiratory: Reports: as per HPI, cough, dyspnea Cardiovascular: Reports: as per HPI, chest pain Endocrine: Denies: fatigue Gastrointestinal: Denies: abdominal pain Genitourinary: Denies: dysuria Musculoskeletal: Denies: back pain Skin: Denies: rash Neurological: Denies: weakness Past Medical History Past Medical History: Asthma, Coronary Artery Disease (CAD), Chest Pain / Angina, Diabetes Mellitus, GERD/Reflux, GI Bleed, Hyperlipidemia, Hypertension, Myocardial Infarction ([place]), Mitral Valve Prolapse (MVP), Pulmonary Embolus (PE), Sleep Apnea/CPAP/BIPAP Additional Past Medical History / Comment(s): Asthmatic bronchitis-chronic, IDDM type II, neuropathy bilateral feet, lower and upper GI bleeds, PUD, diverticulitis, colectomy d/t benign mass/intusseption, BPH, renal cysts, nephrolithiais, UTI with sepsis, chronic back pain 2ndary to herniated lumbar discs/sciatica, JARED does not use his Cpap, MVP, murmur Last Myocardial Infarction Date:: 2011 History of Any Multi-Drug Resistant Organisms: MRSA Date of last positivie culture/infection: 2015 MDRO Source:: left axilla Past Surgical History: Appendectomy, Back Surgery, Cholecystectomy, Heart Catheterization, Hernia Repair Additional Past Surgical History / Comment(s): Lumbar decompression/fusion/laminectomy, spinal stimulator, T lift procedure, L inguinal hernia repair, multiple ESWLs/stents/double J caths, colonoscopy, 02/2020 colectomy, EGDs for food obstructions and dilations Past Anesthesia/Blood Transfusion Reactions: No Reported Reaction Past Psychological History: No Psychological Hx Reported Smoking Status: Never smoker Past Alcohol Use History: None Reported Past Drug Use History: None Reported - Past Family History Father Family Medical History: Chest Pain / Angina Additional Family Medical History / Comment(s): "lung problems" Mother Family Medical History: Cancer, Chest Pain / Angina, Congestive Heart Failure (CHF), Osteoarthritis (OA), Thyroid Disorder Additional Family Medical History / Comment(s): "female cancer" General Exam Limitations: no limitations General appearance: alert, in no apparent distress Head exam: Present: normocephalic Eye exam: Present: normal appearance Neck exam: Present: normal inspection Respiratory exam: Present: wheezes (Mild expiratory wheeze) Cardiovascular Exam: Present: tachycardia Expanded Peripheral pulses: 2+: Radial (R), Radial (L), Dorsalis Pedis (R), Dorsalis Pedis (L) GI/Abdominal exam: Present: soft. Absent: tenderness Extremities exam: Present: normal inspection. Absent: pedal edema, calf tenderness Neurological exam: Present: alert Psychiatric exam: Present: normal affect, normal mood Skin exam: Present: normal color Course Vital Signs 07/18/21 07/18/21 08:18 08:23 Temperature 98.7 F Pulse Rate 130 H Pulse Rate [ 130 H Sitting Pulse Oximetery] Respiratory 22 Rate Blood Pressure 133/92 O2 Sat by Pulse 96 Oximetry EKG Findings - EKG Comments: EKG Findings:: Sinus tachycardia rate 128. IL 138. QRS 106. QT 328. QTC 470. Normal axis. Normal QRS. No acute ST change. Medical Decision Making - Medical Decision Making Patient reevaluated and updated. Patient requests his Percocet for his chronic pain. Case discussed with Dr. jeong, who will admit covering Dr. Figueroa. Pharmacy did not reviewing questions of patient is taking his Eliquis and therefore d-dimer will be added. - Lab Data Result diagrams: 07/18/21 09:20 07/18/21 09:20 Lab Results 07/18/21 07/18/21 07/18/21 Range/Units 09:20 09:20 09:20 WBC 7.1 (3.8-10.6) k/uL RBC 5.13 (4.30-5.90) m/uL Hgb 14.8 (13.0-17.5) gm/dL Hct 44.0 (39.0-53.0) % MCV 85.7 (80.0-100.0) fL MCH 28.9 (25.0-35.0) pg MCHC 33.7 (31.0-37.0) g/dL RDW 13.4 (11.5-15.5) % Plt Count 221 (150-450) k/uL MPV 7.1 Neutrophils % 74 % Lymphocytes % 18 % Monocytes % 4 % Eosinophils % 2 % Basophils % 0 % Neutrophils # 5.2 (1.3-7.7) k/uL Lymphocytes # 1.3 (1.0-4.8) k/uL Monocytes # 0.3 (0-1.0) k/uL Eosinophils # 0.1 (0-0.7) k/uL Basophils # 0.0 (0-0.2) k/uL PT 9.4 (9.0-12.0) sec INR 0.8 (<1.2) APTT 19.8 L (22.0-30.0) sec Sodium 134 L (137-145) mmol/L Potassium 4.8 (3.5-5.1) mmol/L Chloride 105 (98-107) mmol/L Carbon Dioxide 18 L (22-30) mmol/L Anion Gap 11 mmol/L BUN 10 (9-20) mg/dL Creatinine 0.44 L (0.66-1.25) mg/dL Est GFR (CKD-EPI)AfAm >90 (>60 ml/min/1.73 sqM) Est GFR (CKD-EPI)NonAf >90 (>60 ml/min/1.73 sqM) Glucose 318 H (74-99) mg/dL Plasma Lactic Acid Edd (0.7-2.0) mmol/L Calcium 9.3 (8.4-10.2) mg/dL Total Bilirubin 1.2 (0.2-1.3) mg/dL AST 47 (17-59) U/L ALT 43 (4-49) U/L Alkaline Phosphatase 89 (38-126) U/L Troponin I (0.000-0.034) ng/mL NT-Pro-B Natriuret Pep pg/mL Total Protein 7.3 (6.3-8.2) g/dL Albumin 4.3 (3.5-5.0) g/dL Coronavirus (PCR) (Not Detectd) Influenza Type A RNA (Not Detectd) Influenza Type B (PCR) (Not Detectd) 07/18/21 07/18/21 07/18/21 Range/Units 09:20 09:20 09:20 WBC (3.8-10.6) k/uL RBC (4.30-5.90) m/uL Hgb (13.0-17.5) gm/dL Hct (39.0-53.0) % MCV (80.0-100.0) fL MCH (25.0-35.0) pg MCHC (31.0-37.0) g/dL RDW (11.5-15.5) % Plt Count (150-450) k/uL MPV Neutrophils % % Lymphocytes % % Monocytes % % Eosinophils % % Basophils % % Neutrophils # (1.3-7.7) k/uL Lymphocytes # (1.0-4.8) k/uL Monocytes # (0-1.0) k/uL Eosinophils # (0-0.7) k/uL Basophils # (0-0.2) k/uL PT (9.0-12.0) sec INR (<1.2) APTT (22.0-30.0) sec Sodium (137-145) mmol/L Potassium (3.5-5.1) mmol/L Chloride (98-107) mmol/L Carbon Dioxide (22-30) mmol/L Anion Gap mmol/L BUN (9-20) mg/dL Creatinine (0.66-1.25) mg/dL Est GFR (CKD-EPI)AfAm (>60 ml/min/1.73 sqM) Est GFR (CKD-EPI)NonAf (>60 ml/min/1.73 sqM) Glucose (74-99) mg/dL Plasma Lactic Acid Edd 1.8 (0.7-2.0) mmol/L Calcium (8.4-10.2) mg/dL Total Bilirubin (0.2-1.3) mg/dL AST (17-59) U/L ALT (4-49) U/L Alkaline Phosphatase (38-126) U/L Troponin I <0.012 (0.000-0.034) ng/mL NT-Pro-B Natriuret Pep 28 pg/mL Total Protein (6.3-8.2) g/dL Albumin (3.5-5.0) g/dL Coronavirus (PCR) (Not Detectd) Influenza Type A RNA (Not Detectd) Influenza Type B (PCR) (Not Detectd) 07/18/21 07/18/21 Range/Units 09:20 09:20 WBC (3.8-10.6) k/uL RBC (4.30-5.90) m/uL Hgb (13.0-17.5) gm/dL Hct (39.0-53.0) % MCV (80.0-100.0) fL MCH (25.0-35.0) pg MCHC (31.0-37.0) g/dL RDW (11.5-15.5) % Plt Count (150-450) k/uL MPV Neutrophils % % Lymphocytes % % Monocytes % % Eosinophils % % Basophils % % Neutrophils # (1.3-7.7) k/uL Lymphocytes # (1.0-4.8) k/uL Monocytes # (0-1.0) k/uL Eosinophils # (0-0.7) k/uL Basophils # (0-0.2) k/uL PT (9.0-12.0) sec INR (<1.2) APTT (22.0-30.0) sec Sodium (137-145) mmol/L Potassium (3.5-5.1) mmol/L Chloride (98-107) mmol/L Carbon Dioxide (22-30) mmol/L Anion Gap mmol/L BUN (9-20) mg/dL Creatinine (0.66-1.25) mg/dL Est GFR (CKD-EPI)AfAm (>60 ml/min/1.73 sqM) Est GFR (CKD-EPI)NonAf (>60 ml/min/1.73 sqM) Glucose (74-99) mg/dL Plasma Lactic Acid Edd (0.7-2.0) mmol/L Calcium (8.4-10.2) mg/dL Total Bilirubin (0.2-1.3) mg/dL AST (17-59) U/L ALT (4-49) U/L Alkaline Phosphatase (38-126) U/L Troponin I (0.000-0.034) ng/mL NT-Pro-B Natriuret Pep pg/mL Total Protein (6.3-8.2) g/dL Albumin (3.5-5.0) g/dL Coronavirus (PCR) Not Detected (Not Detectd) Influenza Type A RNA Not Detected (Not Detectd) Influenza Type B (PCR) Not Detected (Not Detectd) Disposition Clinical Impression: Chest pain Disposition: ADMITTED IP TO THIS HOSP Is patient prescribed a controlled substance at d/c from ED?: No Referrals: Trav Muniz MD [Primary Care Provider] - 1-2 days Decision Time: 11:20
--- NOTE | 2021-07-18 09:03 | XR ---
EXAMINATION TYPE: XR chest 2V DATE OF EXAM: 07/18/2021 COMPARISON: Chest x-ray June 29, 2021 HISTORY: Dyspnea TECHNIQUE: Frontal and lateral views of the chest are obtained. FINDINGS: There is no focal air space opacity, pleural effusion, or pneumothorax seen. The cardiac silhouette size is within normal limits. Stimulator device lower thoracic spinal canal redemonstrated . Surgical change cervical spine redemonstrated. IMPRESSION: No acute cardiopulmonary process.
[2021-07-18 09:34] LABS: Basophils % (A) 0 %; Eosinophils # (A) 0.1 k/uL (0-0.7); Eosinophils % (A) 2 %; HGB 14.8 gm/dL (13.0-17.5); Lymphocytes # (A) 1.3 k/uL (1.0-4.8); Lymphocytes % (A) 18 %; MCH 28.9 pg (25.0-35.0); MCHC 33.7 g/dL (31.0-37.0); MCV 85.7 fL (80.0-100.0); Mean Platelet Volume 7.1; Monocytes # (A) 0.3 k/uL (0-1.0); Monocytes % (A) 4 %; Neutrophils # (A) 5.2 k/uL (1.3-7.7); Neutrophils % (A) 74 %; Platelet Count 221 k/uL (150-450); RBC 5.13 m/uL (4.30-5.90); RDW 13.4 % (11.5-15.5); WBC 7.1 k/uL (3.8-10.6)
[2021-07-18 09:43] LABS: ALT 43 U/L (4-49); AST 47 U/L (17-59); African American GFR (CKD) >90 (>60 ml/min/1.73 sqM); Albumin 4.3 g/dL (3.5-5.0); Alkaline Phosphatase 89 U/L (38-126); Anion Gap 11 mmol/L; Blood Urea Nitrogen 10 mg/dL (9-20); Calcium 9.3 mg/dL (8.4-10.2); Carbon Dioxide 18 mmol/L (22-30); Chloride 105 mmol/L (98-107); Glucose 318 mg/dL (74-99); Non-African American GFR(CKD) >90 (>60 ml/min/1.73 sqM); Potassium 4.8 mmol/L (3.5-5.1); Sodium 134 mmol/L (137-145); Total Bilirubin 1.2 mg/dL (0.2-1.3); Total Protein 7.3 g/dL (6.3-8.2)
[2021-07-18 09:50] LABS: INR 0.8 (<1.2); Prothrombin Time 9.4 sec (9.0-12.0)
[2021-07-18 09:53] LABS: Partial Thromboplastin Time 19.8 sec (22.0-30.0)
[2021-07-18] MEDS ORDERED: NITROGLYCERIN SL TABS 0.4 MG TAB SUBLINGUAL PRN (11:21)
[2021-07-18] MEDS ORDERED: ASPIRIN 81 MG PO STA (11:21)
[2021-07-18] MEDS ORDERED: oxyCODONE-APAP 5-325MG 1 EACH TAB PO STA (11:23)
[2021-07-18] MEDS: NITROGLYCERIN OINT 1 INCH/GM PACKET TOPICAL SCH ×2 (12:02→17:56)
[2021-07-18] MEDS ORDERED: oxyCODONE-APAP 5-325MG 1 EACH TAB PO PRN (16:56)
[2021-07-18 19:38] VITALS: RESP 18
[2021-07-18 19:39] VITALS: BP 166/89; PULSE 89; TEMP 97.9
--- NOTE | 2021-07-19 00:47 | P.HPIM ---
History of Present Illness This is a pleasant 55 years old male with past medical history of Asthma, Coronary Artery Disease (CAD), Chest Pain / Angina, Diabetes Mellitus, GERD/Reflux, GI Bleed, Hyperlipidemia, Hypertension, Myocardial Infarction (AK), Mitral Valve Prolapse (MVP), Pulmonary Embolus (PE), Sleep Apnea/CPAP/BIPAP, IDDM type II, neuropathy bilateral feet, lower and upper GI bleeds, PUD, diverticulitis, colectomy d/t benign mass/intusseption, BPH, renal cysts, nephrolithiais, UTI with sepsis, chronic back pain 2ndary to herniated lumbar discs/sciatica, JARED does not use his Cpap, MVP, murmur He has recurrent admission to the hospital with chest pain and dyspnea and he has H time extensive workup he has negative cardiac catheterization about one year ago, also he has negative CTPA of the chest for pulmonary embolism about 1- 2 months ago. Patient is fully awake and oriented to time place and person, he has insight into his illness and when I walked into the emergency room 9 he was documented as informed, he answers questions appropriately He presents with similar complaint this time of 2 days' duration of chest pain about 7-8/10 in severity. Luxiq wheezing and stabbing on the left side radiating to the jaw on and off all the night associated with dyspnea and coughing and wheezing also he has some loose sputum. 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 Chest x-ray showing no acute cardiopulmonary process EKG showing sinus tachycardia at [address]-T changes and QTC 478 Review of Systems CONSTITUTIONAL: No fever, no malaise, no fatigue. HEENT: No recent visual problems or hearing problems. Denied any sore throat. CARDIOVASCULAR: No orthopnea, PND, no palpitations, no syncope. PULMONARY: No shortness of breath, no cough, no hemoptysis. GASTROINTESTINAL: No diarrhea, no nausea, no vomiting, no abdominal pain. Normoactive bowel sounds. NEUROLOGICAL: No headaches, no weakness, no numbness. HEMATOLOGICAL: Denies any bleeding or petechiae. GENITOURINARY: Denies any burning micturition, frequency, or urgency. MUSCULOSKELETAL/RHEUMATOLOGICAL: Denies any joint pain, swelling, or any muscle pain. ENDOCRINE: Denies any polyuria or polydipsia. Past Medical History Past Medical History: Asthma, Coronary Artery Disease (CAD), Chest Pain / Angina, Diabetes Mellitus, GERD/Reflux, GI Bleed, Hyperlipidemia, Hypertension, Myocardial Infarction (AK), Mitral Valve Prolapse (MVP), Pulmonary Embolus (PE), Sleep Apnea/CPAP/BIPAP Additional Past Medical History / Comment(s): Asthmatic bronchitis-chronic, IDDM type II, neuropathy bilateral feet, lower and upper GI bleeds, PUD, diverticulitis, colectomy d/t benign mass/intusseption, BPH, renal cysts, nephrolithiais, UTI with sepsis, chronic back pain 2ndary to herniated lumbar discs/sciatica, JARED does not use his Cpap, MVP, murmur Last Myocardial Infarction Date:: 2011 History of Any Multi-Drug Resistant Organisms: MRSA Date of last positivie culture/infection: 2015 MDRO Source:: left axilla Past Surgical History: Appendectomy, Back Surgery, Cholecystectomy, Heart Catheterization, Hernia Repair Additional Past Surgical History / Comment(s): Lumbar decompression/fusion/laminectomy, spinal stimulator, T lift procedure, L inguinal hernia repair, multiple ESWLs/stents/double J caths, colonoscopy, 02/2020 colectomy, EGDs for food obstructions and dilations Past Anesthesia/Blood Transfusion Reactions: No Reported Reaction Past Psychological History: No Psychological Hx Reported Smoking Status: Never smoker Past Alcohol Use History: None Reported Past Drug Use History: None Reported - Past Family History Father Family Medical History: Chest Pain / Angina Additional Family Medical History / Comment(s): "lung problems" Mother Family Medical History: Cancer, Chest Pain / Angina, Congestive Heart Failure (CHF), Osteoarthritis (OA), Thyroid Disorder Additional Family Medical History / Comment(s): "female cancer" Medications and Allergies Home Medications Medication Instructions Recorded Confirmed Type Gabapentin [Neurontin] 300 mg PO TID 10/12/19 07/18/21 History lisinopriL [Zestril] 10 mg PO DAILY #30 tab 02/17/20 07/18/21 Rx Atorvastatin [Lipitor] 40 mg PO HS 11/13/20 07/18/21 History Apixaban [Eliquis] 5 mg PO BID 02/07/21 07/18/21 History Diltiazem Cd [Cardizem CD] 300 mg PO DAILY 02/07/21 07/18/21 History oxyCODONE-APAP 7.5-325MG [Percocet 1 tab PO Q6H PRN 03/15/21 07/18/21 History 7.5-325 mg] Albuterol Inhaler [Ventolin Hfa 2 puff INHALATION RT-QID PRN 06/16/21 07/18/21 History Inhaler] Insulin Lispro [humaLOG Kwikpen] 12 unit SQ TID-W/MEALS 06/16/21 07/18/21 Hi story Omeprazole Magnesium [PriLOSEC OTC] 20 mg PO DAILY PRN 06/16/21 07/18/21 History nadoloL [Corgard] 20 mg PO DAILY 30 Days #30 tab 06/17/21 07/18/21 Rx Methocarbamol [Robaxin-750] 750 mg PO Q6H PRN 07/18/21 07/18/21 History Tamsulosin HCl [Flomax] 0.4 mg PO DAILY 07/18/21 07/18/21 History Allergies Allergy/AdvReac Type Severity Reaction Status Date / Time doxycycline Allergy Swelling Verified 07/18/21 14:07 ketorolac tromethamine Allergy Rash/Hives Verified 07/18/21 14:07 [From Toradol] morphine Allergy Rash/Hives Verified 07/18/21 14:07 metoclopramide HCl AdvReac Dystonic Verified 07/18/21 14:07 [From Reglan] Reaction prochlorperazine edisylate AdvReac Dystonic Verified 07/18/21 14:07 [From Compazine] Reaction prochlorperazine maleate AdvReac Dystonic Verified 07/18/21 14:07 [From Compazine] Reaction tramadol AdvReac Nausea & Verified 07/18/21 14:07 Vomiting Physical Exam Vitals: Vital Signs Temp Pulse Pulse Resp BP Pulse Ox 07/18/21 12:07 109 H 18 136/90 96 07/18/21 08:23 130 H 07/18/21 08:18 98.7 F 130 H 22 133/92 96 Intake and Output 07/17/21 07/18/21 07/18/21 22:59 06:59 14:59 Other: Weight 126.552 kg -GENERAL: The patient is alert and oriented x3, not in any acute distress. Obese HEENT: Pupils are round and equally reacting to light. EOMI. No scleral icterus. No conjunctival pallor. Normocephalic, atraumatic. No pharyngeal erythema. No thyromegaly. CARDIOVASCULAR: S1 and S2 present. No murmurs, rubs, or gallops. -PULMONARY: Chest is clear to auscultation, very minimal scattered wheezing . No crackles. ABDOMEN: Soft, nontender, nondistended, normoactive bowel sounds. No palpable organomegaly. MUSCULOSKELETAL: No joint swelling or deformity. EXTREMITIES: No cyanosis, clubbing, or pedal edema. NEUROLOGICAL: Gross neurological examination did not reveal any focal deficits. SKIN: No rashes. No petechiae Results CBC & Chem 7: 07/18/21 09:20 07/18/21 09:20 Labs: Abnormal Lab Results - Last 24 Hours (Table) 07/18/21 07/18/21 Range/Units 09:20 09:20 APTT 19.8 L (22.0-30.0) sec Sodium 134 L (137-145) mmol/L Carbon Dioxide 18 L (22-30) mmol/L Creatinine 0.44 L (0.66-1.25) mg/dL Glucose 318 H (74-99) mg/dL Assessment and Plan Assessment: Recurrent episodes of chest pain or dyspnea most likely ALLERGIC reaction and acute asthma exacerbation, pulmonary and cardiology team were consulted to rule out cardiac causes History of coronary artery disease but he has negative cardiac cath about the radical Diabetes mellitus Hyperlipidemia Hypertension Obesity with BMI of 38.9 History of mitral valve prolapse History of pulmonary embolism History of sleep apnea But diabetic neuropathy History of diverticulitis History of BPH History of renal cysts and nephrolithiasis History of UTI History of chronic back pain with herniated disc. Plan: This is a pleasant 55 years old male who presents with possible asthma exacerbation Continue with a breathing treatment Pain management Consult cardiology and pulmonary service Labs and medication were reviewed.. Continue same treatment. Continue with symptomatic treatment. Resume home medication. Monitor lytes and vitals. DVT and GI prophylaxis. Further recommendations depends on the clinical course of the patient
[2021-07-19] MEDS ORDERED: ASPIRIN 325 MG TAB PO SCH (09:00)
== END 2021-07-18 19:30 | disposition left against medical advice (07) ==
LOC: EC 08:00 → 6NMEDSUR 11:21
PROVIDERS: ADMIT Internal Medicine; ATTEND Internal Medicine
DX: R07.89 Other chest pain (principal); J45.901 Unspecified asthma with (acute) exacerbation; I25.10 Atherosclerotic heart disease of native coronary artery without angina pectoris; E11.40 Type 2 diabetes mellitus with diabetic neuropathy, unspecified; I10 Essential (primary) hypertension; E78.5 Hyperlipidemia, unspecified; Z20.822 Contact with and (suspected) exposure to COVID-19; Z53.29 Procedure and treatment not carried out because of patient's decision for other reasons; E66.9 Obesity, unspecified; Z68.38 Body mass index [BMI] 38.0-38.9, adult; I34.1 Nonrheumatic mitral (valve) prolapse; I25.2 Old myocardial infarction; N40.0 Benign prostatic hyperplasia without lower urinary tract symptoms; G47.33 Obstructive sleep apnea (adult) (pediatric); K21.9 Gastro-esophageal reflux disease without esophagitis; K40.90 Unilateral inguinal hernia, without obstruction or gangrene, not specified as recurrent; K57.90 Diverticulosis of intestine, part unspecified, without perforation or abscess without bleeding; G89.29 Other chronic pain; M51.26 Other intervertebral disc displacement, lumbar region; M54.30 Sciatica, unspecified side; N28.1 Cyst of kidney, acquired; Z79.01 Long term (current) use of anticoagulants; Z79.4 Long term (current) use of insulin; Z79.899 Other long term (current) drug therapy; Z88.5 Allergy status to narcotic agent; Z88.8 Allergy status to other drugs, medicaments and biological substances; Z88.6 Allergy status to analgesic agent; Z87.442 Personal history of urinary calculi; Z87.11 Personal history of peptic ulcer disease; Z87.01 Personal history of pneumonia (recurrent); Z86.711 Personal history of pulmonary embolism; Z87.440 Personal history of urinary (tract) infections; Z90.49 Acquired absence of other specified parts of digestive tract; Z86.14 Personal history of Methicillin resistant Staphylococcus aureus infection; Z82.49 Family history of ischemic heart disease and other diseases of the circulatory system; Z83.49 Family history of other endocrine, nutritional and metabolic diseases; Z80.9 Family history of malignant neoplasm, unspecified; Z82.61 Family history of arthritis
CPT/HCPCS: 99285; 96374; 36415; 94640; 93005; 85379; 83880; 80053; 83605; 84484; 85025; 85610; 85730; 87502; 87635; 71046; G0378; J2930

== ENCOUNTER 2021-09-12 01:26 | Inpatient (IN) | payer OTHER ==
[2021-09-12] MEDS ORDERED: SODIUM CHLORIDE 0.9% 1,000 ML IV STA ×3 (02:10→04:57)
[2021-09-12] MEDS ORDERED: diphenhydrAMINE 50 MG/ML 1 ML VIAL IVP STA (02:10)
[2021-09-12] MEDS ORDERED: HYDROmorphone 1 MG/ML 1 ML SYRINGE IVP STA ×2 (02:11→03:27)
--- NOTE | 2021-09-12 02:12 | ED ---
Chest Pain HPI - General Chief Complaint: Chest Pain Stated Complaint: Ches Pain Time Seen by Provider: 09/12/21 01:27 Source: patient, EMS, RN notes reviewed, old records reviewed Mode of arrival: ambulatory Limitations: no limitations - History of Present Illness Initial Comments: This is a 55-year-old male to the ER for evaluation today. Patient Dese for evaluation regards to multiple complaints chest pain back pain nausea no vomiting weakness lightheadedness and dizziness. He does radiate to his right arm. Patient has not had similar symptoms since the past feels like his heart is beating in his chest. Patient resents by EMS to help provide further history patient's heart rate is been in the 150s MD Complaint: chest pain -: hour(s) Onset: awoke with symptoms Pain Location: substernal, left chest, right chest Pain Radiation: RUE Severity: moderate, severe Severity scale (1-10): 8 Quality: aching, sharp Consistency: constant Improves With: nothing Worsens With: nothing Context: recent illness Anginal Symptoms: nausea, diaphoresis, dyspnea Other Symptoms: palpitations Treatments Prior to Arrival: none - Related Data Home Medications Medication Instructions Recorded Confirmed Gabapentin [Neurontin] 300 mg PO TID 10/12/19 09/12/21 Atorvastatin [Lipitor] 40 mg PO HS 11/13/20 09/12/21 Apixaban [Eliquis] 5 mg PO BID 02/07/21 09/12/21 Diltiazem Cd [Cardizem CD] 300 mg PO DAILY 02/07/21 09/12/21 Albuterol Inhaler [Ventolin Hfa 2 puff INHALATION RT-QID PRN 06/16/21 09/12/21 Inhaler] Insulin Lispro [humaLOG Kwikpen] 12 unit SQ TID-W/MEALS 06/16/21 09/12/21 Omeprazole Magnesium [PriLOSEC OTC] 20 mg PO DAILY PRN 06/16/21 09/12/21 Methocarbamol [Robaxin-750] 750 mg PO Q6H PRN 07/18/21 09/12/21 Tamsulosin HCl [Flomax] 0.4 mg PO DAILY 07/18/21 09/12/21 Metoprolol Tartrate [Lopressor] 75 mg PO BID 09/12/21 09/12/21 oxyCODONE-APAP 5-325MG [Percocet 1 tab PO Q6H PRN 09/12/21 09/12/21 5-325 mg] Previous Rx's Medication Instructions Recorded lisinopriL [Zestril] 10 mg PO DAILY #30 tab 02/17/20 Allergies Allergy/AdvReac Type Severity Reaction Status Date / Time doxycycline Allergy Swelling Verified 09/12/21 16:41 ketorolac tromethamine Allergy Rash/Hives Verified 09/12/21 16:41 [From Toradol] morphine Allergy Rash/Hives Verified 09/12/21 16:41 metoclopramide HCl AdvReac Dystonic Verified 09/12/21 16:41 [From Reglan] Reaction prochlorperazine edisylate AdvReac Dystonic Verified 09/12/21 16:41 [From Compazine] Reaction prochlorperazine maleate AdvReac Dystonic Verified 09/12/21 16:41 [From Compazine] Reaction tramadol AdvReac Nausea & Verified 09/12/21 16:41 Vomiting Review of Systems ROS Statement: Those systems with pertinent positive or pertinent negative responses have been documented in the HPI. ROS Other: All systems not noted in ROS Statement are negative. EKG Findings - EKG Comments: EKG Findings:: EKG is sinus tachycardia 141 ND 132 QRS 110 QTc 407 Past Medical History Past Medical History: Asthma, Coronary Artery Disease (CAD), Chest Pain / Angina, Diabetes Mellitus, GERD/Reflux, GI Bleed, Hyperlipidemia, Hypertension, Myocardial Infarction ([place]), Mitral Valve Prolapse (MVP), Pulmonary Embolus (PE), Sleep Apnea/CPAP/BIPAP Additional Past Medical History / Comment(s): Asthmatic bronchitis-chronic, IDDM type II, neuropathy bilateral feet, lower and upper GI bleeds, PUD, diverticulitis, colectomy d/t benign mass/intusseption, BPH, renal cysts, neph rolithiais, UTI with sepsis, chronic back pain 2ndary to herniated lumbar discs/sciatica, JARED does not use his Cpap, MVP, murmur Last Myocardial Infarction Date:: 2011 History of Any Multi-Drug Resistant Organisms: MRSA Date of last positivie culture/infection: 2015 MDRO Source:: left axilla Past Surgical History: Appendectomy, Back Surgery, Cholecystectomy, Heart Catheterization, Hernia Repair Additional Past Surgical History / Comment(s): Lumbar decompression/fusion/laminectomy, spinal stimulator, T lift procedure, L inguinal hernia repair, multiple ESWLs/stents/double J caths, colonoscopy, 02/2020 colectomy, EGDs for food obstructions and dilations Past Anesthesia/Blood Transfusion Reactions: No Reported Reaction Past Psychological History: No Psychological Hx Reported Smoking Status: Never smoker Past Alcohol Use History: None Reported Past Drug Use History: None Reported - Past Family History Father Family Medical History: Chest Pain / Angina Additional Family Medical History / Comment(s): "lung problems" Mother Family Medical History: Cancer, Chest Pain / Angina, Congestive Heart Failure (CHF), Osteoarthritis (OA), Thyroid Disorder Additional Family Medical History / Comment(s): "female cancer" General Exam General appearance: alert, in no apparent distress, anxious Head exam: Present: atraumatic, normocephalic, normal inspection Eye exam: Present: normal appearance, PERRL, EOMI. Absent: scleral icterus, conjunctival injection, periorbital swelling ENT exam: Present: normal exam, mucous membranes moist Neck exam: Present: normal inspection. Absent: tenderness, meningismus, lymphadenopathy Respiratory exam: Present: normal lung sounds bilaterally. Absent: respiratory distress, wheezes, rales, rhonchi, stridor Cardiovascular Exam: Present: normal rhythm, tachycardia, normal heart sounds. Absent: systolic murmur, diastolic murmur, rubs, gallop, clicks GI/Abdominal exam: Present: soft, normal bowel sounds. Absent: distended, tenderness, guarding, rebound, rigid Extremities exam: Present: normal inspection, full ROM, normal capillary refill. Absent: tenderness, pedal edema, joint swelling, calf tenderness Back exam: Present: normal inspection Neurological exam: Present: alert, oriented X3, CN II-XII intact Psychiatric exam: Present: normal affect, normal mood Skin exam: Present: warm, dry, intact, normal color. Absent: rash Course Vital Signs 09/12/21 09/12/21 09/12/21 01:27 01:33 05:00 Temperature Pulse Rate 144 H 138 H 135 H Respiratory 18 18 18 Rate Blood Pressure 156/109 156/109 142/95 O2 Sat by Pulse 96 98 98 Oximetry 09/12/21 09/12/21 09/12/21 06:36 07:40 09:16 Temperature Pulse Rate 137 H 136 H 126 H Respiratory 18 18 18 Rate Blood Pressure 140/91 135/80 120/71 O2 Sat by Pulse 97 95 97 Oximetry 09/12/21 09/12/21 09/12/21 10:59 11:38 13:11 Temperature Pulse Rate 124 H 120 H 113 H Respiratory 18 18 18 Rate Blood Pressure 130/81 146/100 O2 Sat by Pulse 96 96 96 Oximetry 09/12/21 09/12/21 09/12/21 14:36 16:16 17:53 Temperature 99.7 F H 101.3 F H Pulse Rate 112 H 112 H 116 H Respiratory 18 18 20 Rate Blood Pressure 142/98 117/86 125/83 O2 Sat by Pulse 96 96 97 Oximetry 09/12/21 18:52 Temperature Pulse Rate 114 H Respiratory 18 Rate Blood Pressure 130/84 O2 Sat by Pulse 96 Oximetry - Reevaluation(s) Reevaluation #1: 09/12/21 05:02 Medical record is reviewed Reevaluation #2: 09/12/21 05:02 Patient is not having any improvement in symptoms here in the ER heart rate remains elevated Reevaluation #3: 09/12/21 05:02 Patient informed of results and questions are answered - Consultations Consultation #1: Spoke with sound who agrees to admit this patient Chest Pain MDM - MDM 55 male to the emergency department for evaluation. Patient coming in today for evaluation of chest pain weakness palpitations patient has significantly elevated heart rate. Symptoms persisted throughout ER stay and patient will be admitted for cardiology evaluation to tachycardia and chest pain chest x-rays negative for acute disease, CTA negative for acute disease Disposition Clinical Impression: Low back pain, Chest pain, Tachycardia Disposition: ADMITTED IP TO THIS HOSP Condition: Fair Is patient prescribed a controlled substance at d/c from ED?: No
[2021-09-12 02:34] LABS: ALT 41 U/L (4-49); AST 48 U/L (17-59); African American GFR (CKD) >90 (>60 ml/min/1.73 sqM); Albumin 4.7 g/dL (3.5-5.0); Alkaline Phosphatase 153 U/L (38-126); Anion Gap 19 mmol/L; Blood Urea Nitrogen 17 mg/dL (9-20); Calcium 9.9 mg/dL (8.4-10.2); Carbon Dioxide 20 mmol/L (22-30); Chloride 96 mmol/L (98-107); Glucose 421 mg/dL (74-99); Lipase 96 U/L (23-300); Magnesium 1.7 mg/dL (1.6-2.3); Non-African American GFR(CKD) >90 (>60 ml/min/1.73 sqM); Potassium 4.4 mmol/L (3.5-5.1); Sodium 135 mmol/L (137-145); Total Bilirubin 0.9 mg/dL (0.2-1.3); Total Protein 7.6 g/dL (6.3-8.2)
[2021-09-12 02:42] LABS: INR 0.8 (<1.2); Prothrombin Time 9.4 sec (9.0-12.0)
[2021-09-12 02:49] LABS: Partial Thromboplastin Time 20.2 sec (22.0-30.0)
--- NOTE | 2021-09-12 02:54 | XR ---
EXAMINATION TYPE: XR chest 2V DATE OF EXAM: 09/12/2021 COMPARISON: 07/18/2021 HISTORY: Chest pain TECHNIQUE: 2 views FINDINGS: There is no heart failure nor confluent pneumonic infiltrate. Costophrenic angles are clear . There are chest leads. There is neural stimulator in the lower thoracic spine. IMPRESSION: No active cardiopulmonary disease. No change.
[2021-09-12] MEDS ORDERED: SODIUM CHLORIDE 0.9% 500 ML 500 ML IV STA (02:58)
[2021-09-12 03:02] LABS: Basophils % (A) 0 %; Eosinophils # (A) 0.2 k/uL (0-0.7); Eosinophils % (A) 2 %; HCT 47.1 % (39.0-53.0); HGB 16.1 gm/dL (13.0-17.5); Lymphocytes # (A) 0.4 k/uL (1.0-4.8); Lymphocytes % (A) 4 %; MCH 29.8 pg (25.0-35.0); MCHC 34.3 g/dL (31.0-37.0); MCV 86.8 fL (80.0-100.0); Mean Platelet Volume 7.7; Monocytes # (A) 0.4 k/uL (0-1.0); Monocytes % (A) 4 %; Neutrophils # (A) 8.7 k/uL (1.3-7.7); Neutrophils % (A) 89 %; Platelet Count 234 k/uL (150-450); RBC 5.42 m/uL (4.30-5.90); RDW 13.4 % (11.5-15.5); WBC 9.8 k/uL (3.8-10.6)
[2021-09-12] MEDS ORDERED: ONDANSETRON 4 MG/2 ML VIAL IVP STA (03:27)
[2021-09-12] MEDS ORDERED: NALOXONE 0.4 MG/ML 1 ML VIAL IV PRN (04:57)
[2021-09-12] MEDS ORDERED: ONDANSETRON 4 MG/2 ML VIAL IVP PRN (04:57)
[2021-09-12] MEDS ORDERED: ACETAMINOPHEN TAB 500 MG TAB PO STA (05:00)
[2021-09-12] MEDS ORDERED: IBUPROFEN 800 MG TAB PO STA (05:00)
--- NOTE | 2021-09-12 05:40 | CT ---
EXAMINATION TYPE: CT chest angio for PE DATE OF EXAM: 09/12/2021 COMPARISON: 06/16/2021 HISTORY: chest pain, sob, elevated d dimer CT DLP: 951.2 mGycm Automated exposure control for dose reduction was used. CONTRAST: Performed with IV Contrast, patient injected with 90 mL of Isovue 370. Images obtained from the thoracic inlet to the diaphragm with IV contrast. There are Three-D postproc essed images. The lungs are clear of consolidation. There is no pleural effusion or pneumothorax. There is fatty in filtration of the liver. Liver appears enlarged. There is neural stimulator in the lower thoracic spi ne. There is no mediastinal adenopathy. There are no hilar masses. Thoracic aorta is intact. There is no aneurysm or dissection. There is normal contrast opacification of the pulmonary arteries. There are n o filling defects. There is some degenerative spurring in the thoracic spine. Sternum is intact. IMPRESSION: No evidence of pulmonary embolism. No acute lung disease. No adverse change compared to old exam.
[2021-09-12 06:04] LABS: Acetaminophen <10.0 ug/mL; Alcohol <10 mg/dL; Salicylate <1.0 mg/dL
--- NOTE | 2021-09-12 06:31 | P.HPIM ---
History of Present Illness H&P Date: 09/12/21 Chief Complaint: Chest pain 55-year-old male with coronary artery disease, diabetes mellitus, asthma Patient comes in for evaluation of chest pain. He reports that he woke up on Monday pressure feeling nauseous throughout the day pain starts getting worse associated with repeated episodes of vomiting denies any diarrhea or abdominal pain he also reports some subjective fevers. Then later on during the day he started feeling some palpitations and diaphoresis, breathing started becoming heavy for which she decided to come in for the hospital for evaluation At home he was checking his pulse ox and found that his heartrate was in the 130s he was feeling pressure-like chest pain substernal radiating to the neck and to the back. Was getting tired and dizzy for which she decided to come in for evaluation He denies any recent travel or sick contacts, he denies any recreational drugs or alcohol abuse, he claims to be compliant with his medications. He does have history of blood clots in the past. In the ED initial blood work was unremarkable troponins negative 2 CT angiogram the chest negative for acute PE Review of Systems Pertinent positives as noted in HPI. All other systems were reviewed and are negative Past Medical History Past Medical History: Asthma, Coronary Artery Disease (CAD), Chest Pain / Angina, Diabetes Mellitus, GERD/Reflux, GI Bleed, Hyperlipidemia, Hypertension, Myocardial Infarction ([place]), Mitral Valve Prolapse (MVP), Pulmonary Embolus (PE), Sleep Apnea/CPAP/BIPAP Additional Past Medical History / Comment(s): Asthmatic bronchitis-chronic, IDDM type II, neuropathy bilateral feet, lower and upper GI bleeds, PUD, diverticulitis, colectomy d/t benign mass/intusseption, BPH, renal cysts, nephrolithiais, UTI with sepsis, chronic back pain 2ndary to herniated lumbar discs/sciatica, JARED does not use his Cpap, MVP, murmur Last Myocardial Infarction Date:: 2011 History of Any Multi-Drug Resistant Organisms: MRSA Date of last positivie culture/infection: 2016 MDRO Source:: left axilla Past Surgical History: Appendectomy, Back Surgery, Cholecystectomy, Heart Catheterization, Hernia Repair Additional Past Surgical History / Comment(s): Lumbar decompression/fusion/laminectomy, spinal stimulator, T lift procedure, L inguinal hernia repair, multiple ESWLs/stents/double J caths, colonoscopy, 02/2020 colectomy, EGDs for food obstructions and dilations Past Anesthesia/Blood Transfusion Reactions: No Reported Reaction Past Psychological History: No Psychological Hx Reported Smoking Status: Never smoker Past Alcohol Use History: None Reported Past Drug Use History: None Reported - Past Family History Father Family Medical History: Chest Pain / Angina Additional Family Medical History / Comment(s): "lung problems" Mother Family Medical History: Cancer, Chest Pain / Angina, Congestive Heart Failure (CHF), Osteoarthritis (OA), Thyroid Disorder Additional Family Medical History / Comment(s): "female cancer" Medications and Allergies Home Medications Medication Instructions Recorded Confirmed Type Gabapentin [Neurontin] 300 mg PO TID 10/12/19 07/18/21 History lisinopriL [Zestril] 10 mg PO DAILY #30 tab 02/17/20 07/18/21 Rx Atorvastatin [Lipitor] 40 mg PO HS 11/13/20 07/18/21 History Apixaban [Eliquis] 5 mg PO BID 02/07/21 07/18/21 History Diltiazem Cd [Cardizem CD] 300 mg PO DAILY 02/07/21 07/18/21 History oxyCODONE-APAP 7.5-325MG [Percocet 1 tab PO Q6H PRN 03/15/21 07/18/21 History 7.5-325 mg] Albuterol Inhaler [Ventolin Hfa 2 puff INHALATION RT-QID PRN 06/16/21 07/18/21 History Inhaler] Insulin Lispro [humaLOG Kwikpen] 12 unit SQ TID-W/MEALS 06/16/21 07/18/21 History Omeprazole Magnesium [PriLOSEC OTC] 20 mg PO DAILY PRN 06/16/21 07/18/21 History nadoloL [Corgard] 20 mg PO DAILY 30 Days #30 tab 06/17/21 07/18/21 Rx Methocarbamol [Robaxin-750] 750 mg PO Q6H PRN 07/18/21 07/18/21 History Tamsulosin HCl [Flomax] 0.4 mg PO DAILY 07/18/21 07/18/21 History Allergies Allergy/AdvReac Type Severity Reaction Status Date / Time doxycycline Allergy Swelling Verified 07/18/21 14:07 ketorolac tromethamine Allergy Rash/Hives Verified 07/18/21 14:07 [From Toradol] morphine Allergy Rash/Hives Verified 07/18/21 14:07 metoclopramide HCl AdvReac Dystonic Verified 07/18/21 14:07 [From Reglan] Reaction prochlorperazine edisylate AdvReac Dystonic Verified 07/18/21 14:07 [From Compazine] Reaction prochlorperazine maleate AdvReac Dystonic Verified 07/18/21 14:07 [From Compazine] Reaction tramadol AdvReac Nausea & Verified 07/18/21 14:07 Vomiting Physical Exam Vitals: Vital Signs Pulse Resp BP Pulse Ox 09/12/21 05:00 135 H 18 142/95 98 09/12/21 01:33 138 H 18 156/109 98 09/12/21 01:27 144 H 18 156/109 96 Intake and Output 09/11/21 09/11/21 09/12/21 14:59 22:59 06:59 Other: Weight 127.006 kg Constitutional: No acute distress, conversant, pleasant Eyes: Anicteric sclerae, moist conjunctiva, Pupils equal round reactive to light ENMT: NC/AT Oropharynx clear, no erythema, or exudates Neck: Supple, no masses, or JVD No carotid bruits No thyromegaly Lungs: Clear to auscultation Clear to percussion Normal respiratory effort, no accessory muscle use Cardiovascular: Heart tachycardia in rate and rhythm, No murmurs, gallops, or rubs No peripheral edema Abdominal: Soft Nontender, no guarding, rebound or rigidity Abdomen moving with respiration Normoactive bowel sounds No hepatomegaly, No splenomegaly No palpable mass No abdominal wall hernia noted Skin: Normal temperature, tone, texture, turgor No induration No subcutaneous nodules No rash, lesions No ulcers Extremities: No digital cyanosis No clubbing Pedal pulses intact and symmetrical Radial pulses intact and symmetrical No calf tenderness Psychiatric: Alert and oriented to person, place and time Appropriate affect fair judgement Neuro Muscles Strength 5/5 in all 4 extremities Sensation to light touch grossly present throughout Cranial nerves II-XII grossly intact No focal sensory deficits Lymphatics: no palpable cervical or supraclavicular , or inguinal lymph nodes Results CBC & Chem 7: 09/12/21 02:01 09/12/21 02:01 Labs: Abnormal Lab Results - Last 24 Hours (Table) 09/12/21 09/12/21 09/12/21 Range/Units 02:01 02:01 02:01 Neutrophils # 8.7 H (1.3-7.7) k/uL Lymphocytes # 0.4 L (1.0-4.8) k/uL APTT 20.2 L (22.0-30.0) sec D-Dimer (<0.60) mg/L FEU Sodium 135 L (137-145) mmol/L Chloride 96 L (98-107) mmol/L Carbon Dioxide 20 L (22-30) mmol/L Creatinine 0.64 L (0.66-1.25) mg/dL Glucose 421 H (74-99) mg/dL Alkaline Phosphatase 153 H (38-126) U/L 09/12/21 Range/Units 02:01 Neutrophils # (1.3-7.7) k/uL Lymphocytes # (1.0-4.8) k/uL APTT (22.0-30.0) sec D-Dimer 0.86 H (<0.60) mg/L FEU Sodium (137-145) mmol/L Chloride (98-107) mmol/L Carbon Dioxide (22-30) mmol/L Creatinine (0.66-1.25) mg/dL Glucose (74-99) mg/dL Alkaline Phosphatase (38-126) U/L Assessment and Plan Assessment: Atypical chest pain rule out ACS Cardiac monitoring Cardiology consultative Aspirin 325 mg daily Statin Nitro when necessary Pain control with opiates Monitor vital signs Troponins negative 2 Chronic conditions Diabetes mellitus, hyperglycemia, insulin sliding scale Asthma, compensated, inhalers as needed History of peptic ulcer disease, PPI D-dimer was elevated, CT angios the chest negative for acute PE Most recent echocardiogram left ventricular ejection fraction showed 50% EKG sinus tachycardia Heparin subcu 3 times a day for DVT prophylaxis Full code Anticipated length of stay less than 2 midnights
[2021-09-12] MEDS: SODIUM CHLORIDE 0.9% 1,000 ML IV SCH ×3 (06:34→20:57)
[2021-09-12 07:48] LABS: Glucose,Whole Blood 424 mg/dL (75-99)
[2021-09-12] MEDS: HYDROmorphone 1 MG/ML 1 ML SYRINGE IVP PRN ×5 (07:50→20:58)
[2021-09-12] MEDS: INSULIN ASPART (NovoLOG) 100 UNIT/ML VIAL SQ SCH ×7 (07:56→20:57)
[2021-09-12] MEDS ORDERED: HEPARIN SODIUM,PORCINE/PF 5,000 UNIT/0.5 ML SYRINGE SQ SCH (08:00)
[2021-09-12] MEDS ORDERED: PANTOPRAZOLE 40 MG/10 ML VIAL IV SCH (09:00)
[2021-09-12] MEDS ORDERED: HEPARIN SODIUM 1,000 UN/ML (10ML VL) IV PRN (10:13)
[2021-09-12] MEDS ORDERED: HEPARIN SODIUM 1,000 UN/ML (10ML VL) IV ONE (10:13)
[2021-09-12] MEDS ORDERED: HEPARIN SOD,PORK IN 0.45% NACL 25,000 UNIT in 0.45% NACL 1 250ML.BAG IV SCH (10:15)
[2021-09-12] MEDS: LORazepam 2 MG/ML INJ IV PRN ×2 (11:04→18:05)
[2021-09-12 11:05] LABS: Appearance,Urine Clear (Clear); Bilirubin,Urine Negative (Negative); Blood,Urine Negative (Negative); Color,Urine Yellow; Glucose,Urine (UA) 4+ (Negative); Ketones,Urine 1+ (Negative); Leukocyte Esterase,Urine Negative (Negative); Nitrite,Urine Negative (Negative); PH, Urine 5.5 (5.0-8.0); Protein,Urine Trace (Negative); Urobilinogen,Urine <2.0 mg/dL (<2.0)
[2021-09-12] MEDS: METOPROLOL TARTRATE 25 MG TAB PO SCH ×2 (11:24→20:57)
[2021-09-12 11:46] LABS: Basophils % (A) 1 %; Eosinophils # (A) 0.1 k/uL (0-0.7); Eosinophils % (A) 2 %; HCT 40.5 % (39.0-53.0); HGB 13.9 gm/dL (13.0-17.5); Lymphocytes # (A) 0.4 k/uL (1.0-4.8); Lymphocytes % (A) 9 %; MCH 29.3 pg (25.0-35.0); MCHC 34.2 g/dL (31.0-37.0); MCV 85.9 fL (80.0-100.0); Monocytes # (A) 0.2 k/uL (0-1.0); Monocytes % (A) 4 %; Neutrophils # (A) 3.6 k/uL (1.3-7.7); Neutrophils % (A) 84 %; Platelet Count 168 k/uL (150-450); RBC 4.72 m/uL (4.30-5.90); RDW 13.4 % (11.5-15.5); WBC 4.3 k/uL (3.8-10.6)
[2021-09-12 11:47] LABS: Glucose,Whole Blood 310 mg/dL (75-99)
[2021-09-12 12:04] LABS: INR 0.9 (<1.2); Prothrombin Time 9.6 sec (9.0-12.0)
[2021-09-12 12:20] LABS: Partial Thromboplastin Time 21.6 sec (22.0-30.0)
[2021-09-12 13:08] LABS: Glucose,Whole Blood 406 mg/dL (75-99)
[2021-09-12 15:52] LABS: Glucose,Whole Blood 305 mg/dL (75-99)
[2021-09-12 17:49] LABS: Glucose,Whole Blood 301 mg/dL (75-99)
[2021-09-12] MEDS: HEPARIN SODIUM,PORCINE/PF 5,000 UNIT/0.5 ML SYRINGE SQ SCH (18:05)
[2021-09-12] MEDS: ACETAMINOPHEN TAB 325 MG TAB PO PRN (18:06)
[2021-09-12 18:46] LABS: Glucose,Whole Blood 320 mg/dL (75-99)
[2021-09-12 19:24] LABS: Glucose,Whole Blood 303 mg/dL (75-99)
[2021-09-12] MEDS ORDERED: ATORVASTATIN 80 MG TAB PO SCH (21:00)
[2021-09-13] MEDS: HYDROmorphone 1 MG/ML 1 ML SYRINGE IVP PRN ×3 (00:33→06:53)
[2021-09-13] MEDS: ACETAMINOPHEN TAB 325 MG TAB PO PRN (00:34)
[2021-09-13] MEDS: HEPARIN SODIUM,PORCINE/PF 5,000 UNIT/0.5 ML SYRINGE SQ SCH ×2 (00:34→08:34)
[2021-09-13] MEDS: SODIUM CHLORIDE 0.9% 1,000 ML IV SCH (03:37)
[2021-09-13 05:47] LABS: Glucose,Whole Blood 269 mg/dL (75-99)
[2021-09-13] MEDS: INSULIN ASPART (NovoLOG) 100 UNIT/ML VIAL SQ SCH ×2 (06:53→08:34)
[2021-09-13] MEDS ORDERED: PANTOPRAZOLE 40 MG TABLET PO SCH (07:30)
[2021-09-13] MEDS ORDERED: ASPIRIN 81 MG PO SCH (09:00)
[2021-09-13] MEDS ORDERED: DILTIAZEM CD 300 MG CAP.ER.24H PO SCH (09:00)
[2021-09-13] MEDS ORDERED: METOPROLOL TARTRATE 25 MG TAB PO SCH (09:00)
[2021-09-13 09:09] LABS: Basophils % (A) 1 %; Eosinophils # (A) 0.2 k/uL (0-0.7); Eosinophils % (A) 5 %; HCT 37.7 % (39.0-53.0); HGB 13.2 gm/dL (13.0-17.5); Lymphocytes # (A) 0.8 k/uL (1.0-4.8); Lymphocytes % (A) 21 %; MCH 30.4 pg (25.0-35.0); MCV 86.7 fL (80.0-100.0); Mean Platelet Volume 9.2; Monocytes # (A) 0.3 k/uL (0-1.0); Monocytes % (A) 9 %; Neutrophils # (A) 2.2 k/uL (1.3-7.7); Neutrophils % (A) 62 %; RBC 4.35 m/uL (4.30-5.90); RDW 13.4 % (11.5-15.5); WBC 3.6 k/uL (3.8-10.6)
[2021-09-13] MEDS ORDERED: oxyCODONE-APAP 5-325MG 1 EACH TAB PO PRN (09:38)
[2021-09-13] MEDS ORDERED: methocarbamoL 750 MG TAB PO PRN (09:40)
[2021-09-13] MEDS ORDERED: NON FORMULARY DRUG (Omeprazole Magnesium [Prilosec Otc] 20 MG Tablet) PO PRN (09:40)
[2021-09-13] MEDS ORDERED: GABAPENTIN 300 MG CAP PO SCH (09:45)
[2021-09-13] MEDS ORDERED: TAMSULOSIN 0.4 MG CAP.ER.24H PO SCH (09:45)
[2021-09-13] MEDS ORDERED: INSULIN DETEMIR (LEVEMIR) 100 UNIT/ML SYR SQ SCH (10:00)
[2021-09-13 10:19] LABS: Platelet Count 104 k/uL (150-450)
[2021-09-13 10:21] LABS: RBC Morphology Normal
[2021-09-13 10:23] VITALS: BP 172/99; PULSE 114; RESP 18; TEMP 98.4
--- NOTE | 2021-09-13 13:05 | P.PN ---
Subjective HISTORY OF PRESENTING ILLNESS Patient is a 55-year-old male with history of diabetes mellitus type 2, hypertension, hyperlipidemia, asthma, obstructive sleep apnea, morbid obesity, GERD, PE and DVT was treated with Eliquis completed, sinus tachycardia and frequent chest pains who presents secondary to recurrent chest pain. Heart catheterization 10/27/20 showed normal coronary arteries. He follows with Dr. Arora. We are being consulted for chest pain. Patient presents to the emergency department with complaints of chest pain starting Monday and nausea and vomiting. His chest pain was located in the center of his chest, nonradiating, nonexertional. Later in the day, he had episodes of palpitations and diaphoresis. He denies shortness of breath, lightheadedness, dizziness, syncope or near syncope. He denies any symptoms of orthopnea or PND. He does not have a history of CAD, [place], or Stroke. He is a non-smoker and denies alcohol use. He was found to be hyperglycemic with AGAP 19 with ketones in urine concerning for DKA. He was tachycardic, in sinus. Patient was given IV fluids and restarted on metoprolol tartrate 25mg BID with improvement in heart rates. He denies any further chest pain, palpitations. He denies any shortness of b reath. Telemetry reviewed, he is in sinus mechansim HR 90s-120. He is maintained on metoprolol tartrate 25mg BID. PHYSICAL EXAMINATION Vital signs reviewed. CONSTITUTIONAL: No apparent distress, obese HEENT: Neck supple. No JVD. No carotid bruit. CHEST EXAMINATION: Lungs are clear to auscultation. No chest wall tenderness is noted on palpation or with deep breathing. HEART EXAMINATION: Regular rate and rhythm. S1, S2 heard. No murmurs, gallops or rub. ABDOMEN: Soft, nontender. Positive bowel sounds. EXTREMITIES: 2+ peripheral pulses, no lower extremity edema and no calf tenderness. NEUROLOGIC EXAMINATION: Patient is awake, alert and oriented x3. ASSESSMENT Atypical chest pain with troponins normal 3, acute coronary syndrome has been ruled outm left heart catheterization 10/27/2020 showing normal coronary arteries Hypertension Sinus tachycardia Morbid obesity Diabetes mellitus type 2 Hyperglycemia Hyperlipidemia Obstructive sleep apnea PLAN Continue patient's home medications Cardizem, metoprolol, lisinopril and statin From a cardiology perspective, ok to discharge and follow up with Dr. Arora in 1-2 weeks. Objective - Vital Signs Vital signs: Vital Signs Temp 98.4 F 09/13/21 08:00 Pulse 114 H 09/13/21 08:00 Resp 18 09/13/21 08:00 BP 172/99 09/13/21 08:00 Pulse Ox 95 09/13/21 08:00 Intake & Output 09/12/21 09/13/21 09/13/21 18:59 06:59 18:59 Output Total 700 Balance -700 Weight 131.4 kg Output: Urine 700 Other: # Voids 1 # Bowel Movements 1 - Labs CBC & Chem 7: 09/13/21 08:20 09/12/21 02:01 Labs: Abnormal Lab Results - Last 24 Hours (Table) 09/12/21 09/12/21 09/12/21 Range/Units 13:06 15:49 17:48 WBC (3.8-10.6) k/uL Hct (39.0-53.0) % Plt Count (150-450) k/uL Lymphocytes # (1.0-4.8) k/uL POC Glucose (mg/dL) 406 H 305 H 301 H (75-99) mg/dL 09/12/21 09/12/21 09/13/21 Range/Units 18:45 19:22 05:45 WBC (3.8-10.6) k/uL Hct (39.0-53.0) % Plt Count (150-450) k/uL Lymphocytes # (1.0-4.8) k/uL POC Glucose (mg/dL) 320 H 303 H 269 H (75-99) mg/dL 09/13/21 Range/Units 08:20 WBC 3.6 L (3.8-10.6) k/uL Hct 37.7 L (39.0-53.0) % Plt Count 104 L (150-450) k/uL Lymphocytes # 0.8 L (1.0-4.8) k/uL POC Glucose (mg/dL) (75-99) mg/dL
--- NOTE | 2021-09-13 16:28 | P.DS ---
Providers Date of admission: 09/12/21 11:42 Expected date of discharge: 09/13/21 Attending physician: Onofre Torres Consults: 09/12/21 04:59 Consult Physician Routine Consulting Provider: Saira Oliveira Consult Reason/Comments: tachycardia Do you want consulting provider notified?: Yes Primary care physician: [facility] Course: Hospital course: Patient admitted with nausea vomiting chest pain. [place] to be in DKA. Treated as such. Patient was seen by cardiology. No further workup. Follow-up with Dr. Ruben Sawant in outpatient. Today: No chest pain. Breathing better. Patient does take Lantus at home. Given 20 units this morning. Care was discussed with the patient and questions answered. He has a follow-up with his neurosurgeon for his neuro transmitter adjustment. For his back pain. Patient also has a diagnosis of asthma and follows with Dr. Ruben Fritz from pulmonary. Has a prescription for Spiriva and Singulair at home. Patient states he has not on any anticoagulant medication anymore. Discussion and discharge planning more than 35 minutes On examination: VITAL SIGNS: [98.4, 114, 18, 1:30/80, 95% room air] GENERAL APPEARANCE: Average build. Lying in bed, comfortable HEENT: Normal external appearance of nose and ear. Oral cavity normal EYES: Pupils equal. Conjunctiva normal. NECK: JVD not raised. Mass not palpable. RESPIRATORY: Respiratory effort normal. Lungs clear to auscultation. CARDIOVASCULAR: First and second sounds normal. No edema. ABDOMEN: Soft. Liver and spleen not palpable. No tenderness. No mass palpable. PSYCHIATRY: Alert and oriented x3. Mood and affect normal. INVESTIGATIONS, reviewed in the clinical context: White count 3.6 hemoglobin 13.2 platelets 104 Assessment and plan: -Diabetic ketoacidosis -Asthma mild persistent -Nonobstructive coronary artery disease per previous cardiac catheterization -Diabetes mellitus type 2 -GERD -Hyperlipidemia -Essential hypertension U -Mitral valve prolapse -Diabetic peripheral neuropathy -BPH -Chronic low back pain/herniated lumbar disc -Obstructive sleep apnea does not use CPAP Disposition: Home Patient Condition at Discharge: Fair Plan - Discharge Summary Discharge Rx Participant: No New Discharge Prescriptions: New Atorvastatin [Lipitor] 80 mg PO HS #30 tab Omeprazole Magnesium [PriLOSEC OTC] 20 mg PO BID #1 tab Aspirin 81 mg PO DAILY INSULIN ASPART (NovoLOG) [NovoLOG (formulary)] 0 unit SQ ACHS ml Insulin Glargine,Hum.rec.anlog [Lantus Solostar Pen] 30 unit SQ DAILY #1 each Continue Gabapentin [Neurontin] 300 mg PO TID Insulin Lispro [humaLOG Kwikpen] 12 unit SQ TID-W/MEALS Albuterol Inhaler [Ventolin Hfa Inhaler] 2 puff INHALATION RT-QID PRN PRN Reason: Shortness Of Breath Omeprazole Magnesium [PriLOSEC OTC] 20 mg PO DAILY PRN PRN Reason: ACID REFLUX oxyCODONE-APAP 5-325MG [Percocet 5-325 mg] 1 tab PO Q6H PRN PRN Reason: Pain Diltiazem Cd [Cardizem CD] 300 mg PO DAILY Tamsulosin HCl [Flomax] 0.4 mg PO DAILY Methocarbamol [Robaxin-750] 750 mg PO Q6H PRN PRN Reason: Pain Metoprolol Tartrate [Lopressor] 75 mg PO BID Discontinued Atorvastatin [Lipitor] 40 mg PO HS Apixaban [Eliquis] 5 mg PO BID No Action lisinopriL [Zestril] 10 mg PO DAILY #30 tab Discharge Medication List Gabapentin [Neurontin] 300 mg PO TID 10/12/19 [History] lisinopriL [Zestril] 10 mg PO DAILY #30 tab 02/17/20 [Rx] Diltiazem Cd [Cardizem CD] 300 mg PO DAILY 02/07/21 [History] Albuterol Inhaler [Ventolin Hfa Inhaler] 2 puff INHALATION RT-QID PRN 06/16/21 [History] Insulin Lispro [humaLOG Kwikpen] 12 unit SQ TID-W/MEALS 06/16/21 [History] Omeprazole Magnesium [PriLOSEC OTC] 20 mg PO DAILY PRN 06/16/21 [History] Methocarbamol [Robaxin-750] 750 mg PO Q6H PRN 07/18/21 [History] Tamsulosin HCl [Flomax] 0.4 mg PO DAILY 07/18/21 [History] Metoprolol Tartrate [Lopressor] 75 mg PO BID 09/12/21 [History] oxyCODONE-APAP 5-325MG [Percocet 5-325 mg] 1 tab PO Q6H PRN 09/12/21 [History] Aspirin 81 mg PO DAILY 09/13/21 [Rx] Atorvastatin [Lipitor] 80 mg PO HS #30 tab 09/13/21 [Rx] INSULIN ASPART (NovoLOG) [NovoLOG (formulary)] 0 unit SQ ACHS ml 09/13/21 [Rx] Insulin Glargine,Hum.rec.anlog [Lantus Solostar Pen] 30 unit SQ DAILY #1 each 09/13/21 [Rx] Omeprazole Magnesium [PriLOSEC OTC] 20 mg PO BID #1 tab 09/13/21 [Rx] Follow up Appointment(s)/Referral(s): Miguel Arora MD [STAFF PHYSICIAN] - 2 Weeks Trav Muniz MD [Primary Care Provider] - 1-2 days Patient Instructions/Handouts: Chest Pain (DC), Diabetic Ketoacidosis (DC), Acute Low Back Pain (GEN), Tachycardia (GEN) Activity/Diet/Wound Care/Special Instructions: omeprazole is a home medication Basalgar home medication to continue Discharge Disposition: HOME SELF-CARE
--- NOTE | 2021-09-14 16:53 | P.CRDCN ---
History of Present Illness History of present illness: This is Dr. Braxton dictating a consult on this patient The patient was interviewed and examined IMPRESSION / ASSESSMENT: Sinus tachycardia Uncontrolled diabetes with a bicarb of 20, Sinus tachycardia, no evidence for pulmonary embolism Normal cardiac enzymes No evidence for atrial flutter PLAN: Suggest diabetes management Continue current medications taken at home including lisinopril metoprolol diltiazem and atorvastatin and aspirin We will sign off. Please call for any new cardiac issues in the future HPI Patient presented to the emergency room with multiple complaints of chest pain nausea weakness lightheadedness His heart rates were elevated He is found to be in diabetic ketoacidosis Past history type 2 diabetes hypertension history of pulmonary embolism obstructive sleep apnea CAD Cartilages consulted on account of tachycardia, question of atrial flutter The twelve-lead EKG however shows sinus tachycardia not atrial flutter White count 3.6 thousand, hemoglobin normal Sodium 135 potassium 4.49 creatinine 0.64 Elevated blood sugar levels line normal AST and ALT tsh 0.64 coronavirus pcr not detected ROS: No fever chills or rigors, no cough, phlegm or expectoration, no nausea, vomiting or diarrhea, no hematuria, dysuria, no musculoskeletal complaints, no strokes or seizures, no skin lesions. EXAMINATION: Resting comfortably in bed. Tachycardic 100 2130 beats a minute Blood pressure 124/75 Breath sounds are reduced bilaterally Heart sounds tachycardic no murmurs REVIEW OF LABS, ECG & MEDICAL DATA Chest CTA. No evidence for pulmonary embolism no changes from the previous examination No aortic aneurysm or dissection Twelve-lead EKG shows sinus tachycardia 141 beats a minute Past Medical History Past Medical History: Asthma, Coronary Artery Disease (CAD), Chest Pain / Angina, Diabetes Mellitus, GERD/Reflux, GI Bleed, Hyperlipidemia, Hypertension, Myocardial Infarction ([place]), Mitral Valve Prolapse (MVP), Pulmonary Embolus (PE), Sleep Apnea/CPAP/BIPAP Additional Past Medical History / Comment(s): Asthmatic bronchitis-chronic, IDDM type II, neuropathy bilateral feet, lower and upper GI bleeds, PUD, diverticulitis, colectomy d/t benign mass/intusseption, BPH, renal cysts, nephrolithiais, UTI with sepsis, chronic back pain 2ndary to herniated lumbar discs/sciatica, JARED does not use his Cpap, MVP, murmur Last Myocardial Infarction Date:: 2011 History of Any Multi-Drug Resistant Organisms: MRSA Date of last positivie culture/infection: 2016 MDRO Source:: left axilla Past Surgical History: Appendectomy, Back Surgery, Cholecystectomy, Heart Catheterization, Hernia Repair Additional Past Surgical History / Comment(s): Lumbar decompression/fusion/laminectomy, spinal stimulator, T lift procedure, L in guinal hernia repair, multiple ESWLs/stents/double J caths, colonoscopy, 02/2020 colectomy, EGDs for food obstructions and dilations Past Anesthesia/Blood Transfusion Reactions: No Reported Reaction Past Psychological History: No Psychological Hx Reported Smoking Status: Never smoker Past Alcohol Use History: None Reported Past Drug Use History: None Reported - Past Family History Father Family Medical History: Chest Pain / Angina Additional Family Medical History / Comment(s): "lung problems" Mother Family Medical History: Cancer, Chest Pain / Angina, Congestive Heart Failure (CHF), Osteoarthritis (OA), Thyroid Disorder Additional Family Medical History / Comment(s): "female cancer" Medications and Allergies Home Medications Medication Instructions Recorded Confirmed Type Gabapentin [Neurontin] 300 mg PO TID 10/12/19 09/12/21 History lisinopriL [Zestril] 10 mg PO DAILY #30 tab 02/17/20 09/12/21 Rx Diltiazem Cd [Cardizem CD] 300 mg PO DAILY 02/07/21 09/12/21 History Albuterol Inhaler [Ventolin Hfa 2 puff INHALATION RT-QID PRN 06/16/21 09/12/21 History Inhaler] Insulin Lispro [humaLOG Kwikpen] 12 unit SQ TID-W/MEALS 06/16/21 09/12/21 History Omeprazole Magnesium [PriLOSEC OTC] 20 mg PO DAILY PRN 06/16/21 09/12/21 History Methocarbamol [Robaxin-750] 750 mg PO Q6H PRN 07/18/21 09/12/21 History Tamsulosin HCl [Flomax] 0.4 mg PO DAILY 07/18/21 09/12/21 History Metoprolol Tartrate [Lopressor] 75 mg PO BID 09/12/21 09/12/21 History oxyCODONE-APAP 5-325MG [Percocet 1 tab PO Q6H PRN 09/12/21 09/12/21 History 5-325 mg] Aspirin 81 mg PO DAILY 09/13/21 Rx Atorvastatin [Lipitor] 80 mg PO HS #30 tab 09/13/21 Rx INSULIN ASPART (NovoLOG) [NovoLOG 0 unit SQ ACHS ml 09/13/21 Rx (formulary)] Insulin Glargine,Hum.rec.anlog 30 unit SQ DAILY #1 each 09/13/21 Rx [Lantus Solostar Pen] Omeprazole Magnesium [PriLOSEC OTC] 20 mg PO BID #1 tab 09/13/21 Rx Allergies Allergy/AdvReac Type Severity Reaction Status Date / Time doxycycline Allergy Swelling Verified 09/12/21 16:41 ketorolac tromethamine Allergy Rash/Hives Verified 09/12/21 16:41 [From Toradol] morphine Allergy Rash/Hives Verified 09/12/21 16:41 metoclopramide HCl AdvReac Dystonic Verified 09/12/21 16:41 [From Reglan] Reaction prochlorperazine edisylate AdvReac Dystonic Verified 09/12/21 16:41 [From Compazine] Reaction prochlorperazine maleate AdvReac Dystonic Verified 09/12/21 16:41 [From Compazine] Reaction tramadol AdvReac Nausea & Verified 09/12/21 16:41 Vomiting Results 09/13/21 08:20 09/12/21 02:01 09/13/21 08:20 09/12/21 02:01
== END 2021-09-13 10:19 | disposition home or self-care (01) | DRG 638 ==
LOC: EC 01:26 → 3SCARD 04:44 → OBSVTOIN 11:42 → 3SCARD 18:58
PROVIDERS: ADMIT Hospitalist; ATTEND Hospitalist
DX: E11.10 Type 2 diabetes mellitus with ketoacidosis without coma (principal); Z68.41 Body mass index [BMI] 40.0-44.9, adult; E11.42 Type 2 diabetes mellitus with diabetic polyneuropathy; E66.01 Morbid (severe) obesity due to excess calories; E78.5 Hyperlipidemia, unspecified; Z20.822 Contact with and (suspected) exposure to COVID-19; G47.33 Obstructive sleep apnea (adult) (pediatric); R07.89 Other chest pain; R00.0 Tachycardia, unspecified; G89.29 Other chronic pain; J45.30 Mild persistent asthma, uncomplicated; M51.26 Other intervertebral disc displacement, lumbar region; N40.0 Benign prostatic hyperplasia without lower urinary tract symptoms; I10 Essential (primary) hypertension; I25.10 Atherosclerotic heart disease of native coronary artery without angina pectoris; I25.2 Old myocardial infarction; I34.1 Nonrheumatic mitral (valve) prolapse; K21.9 Gastro-esophageal reflux disease without esophagitis; Z79.01 Long term (current) use of anticoagulants; Z79.4 Long term (current) use of insulin; Z79.82 Long term (current) use of aspirin; Z79.899 Other long term (current) drug therapy; Z82.49 Family history of ischemic heart disease and other diseases of the circulatory system; Z86.711 Personal history of pulmonary embolism; Z86.718 Personal history of other venous thrombosis and embolism; Z87.11 Personal history of peptic ulcer disease; Z88.8 Allergy status to other drugs, medicaments and biological substances; Z88.5 Allergy status to narcotic agent
CPT/HCPCS: 36415; 71046; 71275; 80053; 80143; 80179; 80320; 81003; 82009; 83690; 83735; 83880; 84443; 84484; 85025; 85379; 85610; 85730; 87635; 93005; 96361; 96374; 96375; 99285

== ENCOUNTER 2021-10-02 12:52 | Emergency (ER) | payer OTHER ==
--- NOTE | 2021-10-02 13:51 | ED ---
Back Pain HPI - General Chief Complaint: Back Pain/Injury Stated Complaint: back pain Time Seen by Provider: 10/02/21 13:08 Source: patient Limitations: no limitations - History of Present Illness Initial Comments: Patient is a 55-year-old male with a history of hypertension and back pain presenting with chief complaint of back pain. Patient states that he exacerbated his chronic back pain yesterday after assisting with his elderly mother. She began to fall and he went to catch her, causing strain on his lower back. Patient has a stimulator which was not providing relief, at home he took Percocet and applied a heating pad, which did not alleviate his symptoms. Patient states that he has some numbness and tingling shooting down the right leg periodically. He also had numbness and tingling that shoots down the left arm with head extension, this is usual for for him at baseline. Patient is scheduled for outpatient MRI of the cervical and lumbar spine. Additionally at presentation he is hypertensive, patient states that he took his medication today. He denies any saddle paresthesia, loss of bowel or bladder control, chest pain, shortness of breath, nausea, vomiting, headache, vision changes, dizziness, loss of consciousness, pain radiating down the left arm or side of the neck. - Related Data Home Medications Medication Instructions Recorded Confirmed Gabapentin [Neurontin] 300 mg PO TID 10/12/19 09/12/21 Diltiazem Cd [Cardizem CD] 300 mg PO DAILY 02/07/21 09/12/21 Albuterol Inhaler [Ventolin Hfa 2 puff INHALATION RT-QID PRN 06/16/21 09/12/21 Inhaler] Insulin Lispro [humaLOG Kwikpen] 12 unit SQ TID-W/MEALS 06/16/21 09/12/21 Omeprazole Magnesium [PriLOSEC OTC] 20 mg PO DAILY PRN 06/16/21 09/12/21 Methocarbamol [Robaxin-750] 750 mg PO Q6H PRN 07/18/21 09/12/21 Tamsulosin HCl [Flomax] 0.4 mg PO DAILY 07/18/21 09/12/21 Metoprolol Tartrate [Lopressor] 75 mg PO BID 09/12/21 09/12/21 oxyCODONE-APAP 5-325MG [Percocet 1 tab PO Q6H PRN 09/12/21 09/12/21 5-325 mg] Previous Rx's Medication Instructions Recorded lisinopriL [Zestril] 10 mg PO DAILY #30 tab 02/17/20 Aspirin 81 mg PO DAILY 09/13/21 Atorvastatin [Lipitor] 80 mg PO HS #30 tab 09/13/21 INSULIN ASPART (NovoLOG) [NovoLOG 0 unit SQ ACHS ml 09/13/21 (formulary)] Insulin Glargine,Hum.rec.anlog 30 unit SQ DAILY #1 each 09/13/21 [Lantus Solostar Pen] Omeprazole Magnesium [PriLOSEC OTC] 20 mg PO BID #1 tab 09/13/21 Allergies Allergy/AdvReac Type Severity Reaction Status Date / Time doxycycline Allergy Swelling Verified 10/02/21 12:56 ketorolac tromethamine Allergy Rash/Hives Verified 10/02/21 12:56 [From Toradol] morphine Allergy Rash/Hives Verified 10/02/21 12:56 metoclopramide HCl AdvReac Dystonic Verified 10/02/21 12:56 [From Reglan] Reaction prochlorperazine edisylate AdvReac Dystonic Verified 10/02/21 12:56 [From Compazine] Reaction prochlorperazine maleate AdvReac Dystonic Verified 10/02/21 12:56 [From Compazine] Reaction tramadol AdvReac Nausea & Verified 10/02/21 12:56 Vomiting Review of Systems ROS Statement: Those systems with pertinent positive or pertinent negative responses have been documented in the HPI. ROS Other: All systems not noted in ROS Statement are negative. 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, JARED does not use his Cpap, MVP, murmur Last Myocardial Infarction Date:: 2011 History of Any Multi-Drug Resistant Organisms: MRSA Date of last positivie culture/infection: 2016 MDRO Source:: left axilla Past Surgical History: Appendectomy, Back Surgery, Cholecystectomy, Heart Catheterization, Hernia Repair Additional Past Surgical History / Comment(s): Lumbar decompression/fusion/laminectomy, spinal stimulator, T lift procedure, L inguinal hernia repair, multiple ESWLs/stents/double J caths, colonoscopy, 02/2020 colectomy, EGDs for food obstructions and dilations Past Anesthesia/Blood Transfusion Reactions: No Reported Reaction Past Psychological History: No Psychological Hx Reported Smoking Status: Never smoker Past Alcohol Use History: None Reported Past Drug Use History: None Reported - Past Family History Father Family Medical History: Chest Pain / Angina Additional Family Medical History / Comment(s): "lung problems" Mother Family Medical History: Cancer, Chest Pain / Angina, Congestive Heart Failure (CHF), Osteoarthritis (OA), Thyroid Disorder Additional Family Medical History / Comment(s): "female cancer" General Exam Limitations: no limitations General appearance: alert, in distress, obese Head exam: Present: atraumatic, normocephalic, normal inspection Eye exam: Present: normal appearance, PERRL, EOMI. Absent: scleral icterus, conjunctival injection, periorbital swelling Neck exam: Present: normal inspection. Absent: full ROM (Decreased secondary to pain) Respiratory exam: Present: normal lung sounds bilaterally. Absent: respiratory distress, wheezes, rales, rhonchi, stridor Cardiovascular Exam: Present: normal rhythm, tachycardia, normal heart sounds. Absent: regular rate, systolic murmur, diastolic murmur, rubs, gallop, clicks Extremities exam: Present: normal inspection Back exam: Present: normal inspection, muscle spasm. Absent: full ROM (Secondary to pain) Neurological exam: Present: alert, oriented X3, CN II-XII intact Psychiatric exam: Present: normal affect, normal mood Skin exam: Present: warm, dry, intact, normal color. Absent: rash Course Vital Signs 10/02/21 10/02/21 10/02/21 12:53 14:07 15:20 Temperature 97.7 F Pulse Rate 131 H 120 H 118 H Respiratory 18 18 20 Rate Blood Pressure 203/126 157/98 157/94 O2 Sat by Pulse 97 97 99 Oximetry 10/02/21 16:17 Temperature 98.7 F Pulse Rate 100 Respiratory 18 Rate Blood Pressure 158/87 O2 Sat by Pulse 98 Oximetry Medical Decision Making - Medical Decision Making Patient is a 55-year-old male presenting with chief complaint of back pain. Patient admits to chronic back pain, he suffered an injury yesterday after rushing to catch his elderly mother who was about to fall. At home he tried his Percocet prescribed by his pain medicine doctor, and heat. Those methods plus his stimulator were not providing enough relief. He is complaining of intermittent right leg numbness and tingling and intermittent right arm numbness and tingling with neck extension, this is usual for him at baseline. He does not have any saddle paresthesia or loss of bowel or bladder control. Exam is limited due to patient's extreme pain. He still has full range of motion of all limbs. X-ray of lumbar and cervical spine reveal no acute fracture or dislocation, no changes from previous studies. Patient was given 7.5 mg Percocet PO (because he regularly takes this at home) and 60 mg Norflex IM. Upo n reevaluation patient states he was still experiencing a significant amount of pain. A consultation with Dr. Saxena the patient was given 1 mg of Dilaudid. I ensured the patient had someone to drive him home after receiving narcotics in the ER. I instructed the patient to follow up with his pain medicine provider and follow through with his MRI appointment scheduled. I educated on return par ameters, educated on alarm symptoms, and answered all questions. Patient conveyed verbal understanding and agreed to the plan. I discussed this case my attending Dr. Balbuena. - Radiology Data Radiology results: report reviewed Interpreted by me: Cervical spine x-ray: Post surgical changes to the spine. No evidence for acute process. Mild degenerative disc disease changes of the cervical spine Lumbar x-ray: Post surgical changes without significant change from prior. Disposition Clinical Impression: Strain of lumbar region, Mechanical back pain Disposition: HOME SELF-CARE Condition: Good Instructions (If sedation given, give patient instructions): Chronic Back Pain ([place]) Additional Instructions: Follow-up with pain management and orthopedics. Continue to take pain control regimen as prescribed by pain management at home. Report back to ER with any worsening or new onset alarming symptoms, including but not limited to loss of bowel or bladder control, loss numbness or tingling of the genital region, weakness in the lower extremities. Is patient prescribed a controlled substance at d/c from ED?: No Referrals: Trav Muniz MD [Primary Care Provider] - 1-2 days Time of Disposition: 15:56
[2021-10-02] MEDS ORDERED: ORPHENADRINE 30 MG/ML 2 ML VIAL IVP STA (13:56)
--- NOTE | 2021-10-02 13:58 | XR ---
EXAMINATION TYPE: XR cervical spine comp DATE OF EXAM: 10/02/2021 1:37 PM INDICATION: Patient age:Male; 55 years old; Reason for study: back pain; COMPARISON: None TECHNIQUE: The cervical spine was imaged in 4 projections. FINDINGS: Postsurgical changes to the spine No evidence for acute process. The osseous structures show normal alignment without evidence of an acute fracture. There are osteoph ytes noted throughout the cervical spine on the anterior and lateral aspects of the vertebral bodies. The intervertebral disk spaces are otherwise preserved except at C4-5 and C5-6 due to fixation hardw are. Pedicles are intact. Soft tissues are within normal limits. The odontoid appears intact. Calci fication of the nuchal ligament. IMPRESSION: 1. Postsurgical changes to the spine No evidence for acute process. 2. Mild degenerative disc disease changes of the cervical spine.
--- NOTE | 2021-10-02 14:06 | XR ---
EXAMINATION TYPE: XR lumbar spine 2 or 3V DATE OF EXAM: 10/02/2021 1:37 PM INDICATION: Patient age:Male; 55 years old; Reason for study: back pain; COMPARISON: Radiographs 03/15/2021 TECHNIQUE: The lumbar spine was examined in 2 views. FINDINGS: Postsurgical changes L3-S1. There is surgical clips in right upper quadrant. Stimulator dev ice is present. No evidence of any acute osseous pathology. No evidence of loss of vertebral body he ight is seen. There is normal alignment of the lumbar vertebral bodies. IMPRESSION: Postsurgical changes without significant change from prior.
[2021-10-02] MEDS ORDERED: ORPHENADRINE 30 MG/ML 2 ML VIAL IM STA (14:09)
[2021-10-02] MEDS ORDERED: oxyCODONE-APAP 7.5-325MG 1 EACH TAB PO STA (14:09)
[2021-10-02] MEDS ORDERED: HYDROmorphone 1 MG/ML 1 ML SYRINGE IM STA (15:32)
[2021-10-02 16:20] VITALS: BP 158/87; PULSE 100; RESP 18; TEMP 98.7
== END 2021-10-02 16:17 | disposition home or self-care (01) ==
LOC: EC 12:52
DX: S39.012A Strain of muscle, fascia and tendon of lower back, initial encounter (principal); E11.40 Type 2 diabetes mellitus with diabetic neuropathy, unspecified; I10 Essential (primary) hypertension; I25.2 Old myocardial infarction; I25.10 Atherosclerotic heart disease of native coronary artery without angina pectoris; J45.909 Unspecified asthma, uncomplicated; K21.9 Gastro-esophageal reflux disease without esophagitis; E78.5 Hyperlipidemia, unspecified; Z86.711 Personal history of pulmonary embolism; Z79.4 Long term (current) use of insulin; Z79.82 Long term (current) use of aspirin; Z79.899 Other long term (current) drug therapy; X50.0XXA Overexertion from strenuous movement or load, initial encounter
CPT/HCPCS: 72050; 72100; 99283; 96372 ×2; J2360; J1170

== ENCOUNTER 2021-10-30 13:44 | Emergency (ER) | payer OTHER ==
[2021-10-30 13:54] VITALS: BP 167/91; PULSE 131; RESP 18; TEMP 98.6
[2021-10-30] MEDS ORDERED: HYDROmorphone 1 MG/ML 1 ML SYRINGE IM STA (16:40)
[2021-10-30] MEDS ORDERED: ORPHENADRINE 30 MG/ML 2 ML VIAL IM STA (16:44)
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
== END 2021-10-30 17:48 | disposition home or self-care (01) ==
LOC: EC 13:44
DX: M54.2 Cervicalgia (principal); E11.40 Type 2 diabetes mellitus with diabetic neuropathy, unspecified; I10 Essential (primary) hypertension; I25.10 Atherosclerotic heart disease of native coronary artery without angina pectoris; I25.2 Old myocardial infarction; J45.909 Unspecified asthma, uncomplicated; K21.9 Gastro-esophageal reflux disease without esophagitis; E78.5 Hyperlipidemia, unspecified; Z79.4 Long term (current) use of insulin; Z79.82 Long term (current) use of aspirin; Z79.51 Long term (current) use of inhaled steroids; Z79.899 Other long term (current) drug therapy
CPT/HCPCS: 99283; 96372 ×2; J2360; J1170

== ENCOUNTER 2021-11-27 14:44 | Emergency (ER) | payer OTHER ==
[2021-11-27 14:54] VITALS: TEMP 98
[2021-11-27 14:57] LABS: Glucose,Whole Blood 393 mg/dL (75-99)
[2021-11-27 15:39] LABS: Basophils % (A) 1 %; Eosinophils # (A) 0.2 k/uL (0-0.7); Eosinophils % (A) 3 %; HCT 44.8 % (39.0-53.0); HGB 14.6 gm/dL (13.0-17.5); Lymphocytes # (A) 1.3 k/uL (1.0-4.8); Lymphocytes % (A) 24 %; MCH 27.9 pg (25.0-35.0); MCHC 32.7 g/dL (31.0-37.0); MCV 85.3 fL (80.0-100.0); Mean Platelet Volume 7.1; Monocytes # (A) 0.3 k/uL (0-1.0); Monocytes % (A) 5 %; Neutrophils # (A) 3.6 k/uL (1.3-7.7); Neutrophils % (A) 65 %; Platelet Count 259 k/uL (150-450); RBC 5.25 m/uL (4.30-5.90); RDW 13.9 % (11.5-15.5); WBC 5.5 k/uL (3.8-10.6)
[2021-11-27 15:41] LABS: INR 0.8 (<1.2); Prothrombin Time 9.5 sec (9.0-12.0)
[2021-11-27 15:45] LABS: ALT 113 U/L (4-49); AST 74 U/L (17-59); African American GFR (CKD) >90 (>60 ml/min/1.73 sqM); Albumin 4.5 g/dL (3.5-5.0); Alkaline Phosphatase 137 U/L (38-126); Anion Gap 13 mmol/L; Blood Urea Nitrogen 9 mg/dL (9-20); Calcium 9.6 mg/dL (8.4-10.2); Carbon Dioxide 19 mmol/L (22-30); Chloride 101 mmol/L (98-107); Glucose 378 mg/dL (74-99); Non-African American GFR(CKD) >90 (>60 ml/min/1.73 sqM); Potassium 4.8 mmol/L (3.5-5.1); Sodium 133 mmol/L (137-145); Total Bilirubin 0.6 mg/dL (0.2-1.3); Total Protein 7.3 g/dL (6.3-8.2)
--- NOTE | 2021-11-27 16:05 | XR ---
EXAMINATION TYPE: XR chest 2V DATE OF EXAM: 11/27/2021 4:00 PM COMPARISON: Multiple radiographs, with the most recent on 11/20/2021 TECHNIQUE: XR chest 2V Frontal and lateral views of the chest. CLINICAL INDICATION:Male, 56 years old with history of chest pain ; FINDINGS: Lungs/Pleura: There is no evidence of pleural effusion, focal consolidation, or pneumothorax. Pulmonary vascularity: Unremarkable. Heart/mediastinum: Cardiomediastinal silhouette is unremarkable. Musculoskeletal: No acute osseous pathology. There is fixation hardware in the lower cervical spine. Other findings: Unchanged stimulator device. IMPRESSION: No acute cardiopulmonary disease/process.
[2021-11-27] MEDS ORDERED: ASPIRIN 81 MG PO STA (18:06)
[2021-11-27] MEDS ORDERED: SODIUM CHLORIDE 0.9% 1,000 ML IV STA ×2 (18:06→20:41)
--- NOTE | 2021-11-27 18:06 | ED ---
General Adult HPI - General Chief complaint: Chest Pain Stated complaint: Chest pain,hyperglycemia Time Seen by Provider: 11/27/21 17:50 Source: patient, RN notes reviewed Mode of arrival: ambulatory Limitations: no limitations - History of Present Illness Initial comments: 56-year-old male presents to the emergency department for evaluation of crushing chest pain and elevated blood sugar. Patient states his symptoms have been intermittent for the past week, however have been persistent for the past 2 days. Patient states he was in the emergency department a week ago for the same complaint and was given IV fluids with improvement. Patient states he did not follow up with his PCP and has continued to have elevated blood sugars in the 400-500 range. Patient states he has since developed a cough and shortness of breath. Denies fever, chills, headache, dizziness, abdominal pain, nausea, vomiting, dysuria, hematuria, or edema. - Related Data Home Medications Medication Instructions Recorded Confirmed Gabapentin [Neurontin] 300 mg PO TID 10/12/19 09/12/21 Diltiazem Cd [Cardizem CD] 300 mg PO DAILY 02/07/21 09/12/21 Albuterol Inhaler [Ventolin Hfa 2 puff INHALATION RT-QID PRN 06/16/21 09/12/21 Inhaler] Insulin Lispro [humaLOG Kwikpen] 12 unit SQ TID-W/MEALS 06/16/21 09/12/21 Omeprazole Magnesium [PriLOSEC OTC] 20 mg PO DAILY PRN 06/16/21 09/12/21 Methocarbamol [Robaxin-750] 750 mg PO Q6H PRN 07/18/21 09/12/21 Tamsulosin HCl [Flomax] 0.4 mg PO DAILY 07/18/21 09/12/21 Metoprolol Tartrate [Lopressor] 75 mg PO BID 09/12/21 09/12/21 oxyCODONE-APAP 5-325MG [Percocet 1 tab PO Q6H PRN 09/12/21 09/12/21 5-325 mg] Previous Rx's Medication Instructions Recorded lisinopriL [Zestril] 10 mg PO DAILY #30 tab 02/17/20 Aspirin 81 mg PO DAILY 09/13/21 Atorvastatin [Lipitor] 80 mg PO HS #30 tab 09/13/21 INSULIN ASPART (NovoLOG) [NovoLOG 0 unit SQ ACHS ml 09/13/21 (formulary)] Insulin Glargine,Hum.rec.anlog 30 unit SQ DAILY #1 each 09/13/21 [Lantus Solostar Pen] Omeprazole Magnesium [PriLOSEC OTC] 20 mg PO BID #1 tab 09/13/21 Allergies Allergy/AdvReac Type Severity Reaction Status Date / Time doxycycline Allergy Swelling Verified 11/27/21 14:52 ketorolac tromethamine Allergy Rash/Hives Verified 11/27/21 14:52 [From Toradol] morphine Allergy Rash/Hives Verified 11/27/21 14:52 metoclopramide HCl AdvReac Dystonic Verified 11/27/21 14:52 [From Reglan] Reaction prochlorperazine edisylate AdvReac Dystonic Verified 11/27/21 14:52 [From Compazine] Reaction prochlorperazine maleate AdvReac Dystonic Verified 11/27/21 14:52 [From Compazine] Reaction tramadol AdvReac Nausea & Verified 11/27/21 14:52 Vomiting Review of Systems ROS Statement: Those systems with pertinent positive or pertinent negative responses have been documented in the HPI. ROS Other: All systems not noted in ROS Statement are negative. Past Medical History Past Medical History: Asthma, Coronary Artery Disease (CAD), Chest Pain / Angina, Diabetes Mellitus, GERD/Reflux, GI Bleed, Hyperlipidemia, Hypertension, Myocardial Infarction ([place]), Mitral Valve Prolapse (MVP), Pulmonary Embolus (PE), Sleep Apnea/CPAP/BIPAP Additional Past Medical History / Comment(s): Asthmatic bronchitis-chronic, IDDM type II, neuropathy bilateral feet, lower and upper GI bleeds, PUD, diverticulitis, colectomy d/t benign mass/intusseption, BPH, renal cysts, nep hrolithiais, UTI with sepsis, chronic back pain 2ndary to herniated lumbar discs/sciatica, JARED does not use his Cpap, MVP, murmur Last Myocardial Infarction Date:: 2011 History of Any Multi-Drug Resistant Organisms: MRSA Date of last positivie culture/infection: 2015 MDRO Source:: left axilla Past Surgical History: Appendectomy, Back Surgery, Cholecystectomy, Heart Catheterization, Hernia Repair Additional Past Surgical History / Comment(s): Lumbar decompression/fusion/laminectomy, spinal stimulator, T lift procedure, L inguinal hernia repair, multiple ESWLs/stents/double J caths, colonoscopy, 02/2020 colectomy, EGDs for food obstructions and dilations Past Anesthesia/Blood Transfusion Reactions: No Reported Reaction Past Psychological History: No Psychological Hx Reported Smoking Status: Never smoker Past Alcohol Use History: None Reported Past Drug Use History: None Reported - Past Family History Father Family Medical History: Chest Pain / Angina Additional Family Medical History / Comment(s): "lung problems" Mother Family Medical History: Cancer, Chest Pain / Angina, Congestive Heart Failure (C HF), Osteoarthritis (OA), Thyroid Disorder Additional Family Medical History / Comment(s): "female cancer" General Exam Limitations: no limitations (Well-developed, well-nourished male in no acute distress. Initial temperature 98.0, pulse 116, respirations 18, blood pressure 156/95, pulse ox 97% on room air.) General appearance: alert, in no apparent distress Eye exam: Present: normal appearance, PERRL, EOMI. Absent: scleral icterus, conjunctival injection ENT exam: Present: normal exam, mucous membranes moist Neck exam: Present: normal inspection. Absent: tenderness, meningismus, lymphadenopathy Respiratory exam: Present: normal lung sounds bilaterally. Absent: respiratory distress, wheezes, rales, rhonchi, stridor, chest wall tenderness Cardiovascular Exam: Present: normal rhythm, tachycardia, normal heart sounds GI/Abdominal exam: Present: soft, normal bowel sounds. Absent: distended, tenderness, guarding, rebound, rigid Extremities exam: Present: normal inspection, full ROM, normal capillary refill. Absent: tenderness, pedal edema, joint swelling, calf tenderness Neurological exam: Present: alert, oriented X3, CN II-XII intact Psychiatric exam: Present: normal affect, normal mood Skin exam: Present: warm, dry, intact, normal color. Absent: rash Course Vital Signs 11/27/21 11/27/21 11/27/21 14:52 19:47 21:56 Temperature 98 F Pulse Rate 116 H 112 H 104 H Respiratory 18 20 20 Rate Blood Pressure 156/95 157/108 157/108 O2 Sat by Pulse 97 96 97 Oximetry - Reevaluation(s) Reevaluation #1: 11/27/21 19:27 Upon reevaluation, patient continues to be moderately uncomfortable. He has not received his nitroglycerin as he does not have IV access at this time. Nurses present at bedside attempting ultrasound-guided IV insertion. 11/27/21 20:41 Upon reassessment, patient has received his aspirin, nitro, and fluids area and states this chest pressure is relatively unchanged and continues to have ongoing chest, neck, and back discomfort. Blood pressure and heart rate remain elevated. Medical Decision Making - Medical Decision Making This is a 56-year-old male with a past medical history of Type 2 diabetes, CAD, tachycardia, GI bleed, hypertension, asthma, and [place] who is well-known to this department. He complains of chest pain and hyperglycemia. States this chest pain has been ongoing for the past couple of weeks. Upon exam, patient is well- appearing and in no acute distress. His heart rate and blood pressure are elevated, which is not unusual for him. Complains of tight, squeezing, left- sided chest pain which he was given nitro, aspirin, and Dilaudid with some relief. Patient is not short of breath with no increased work of breathing. Laboratory studies were reviewed. D-dimer and proBNP are within normal limits. Troponin is negative 2. Blood glucose is elevated; patient was given IV fluids and will take his home medications. Liver enzymes are elevated, which is not unusual for patient. Chest x-ray is unremarkable. EKG shows sinus tachycardia with no ST segment changes or ectopy. Patient's presentation is consistent with previous visits. He is scheduled to see his neurosurgeon on Monday due to his chronic neck and back pain. He is encouraged to monitor his blood sugar carefully and take his medications as prescribed. Patient will be discharged home to follow-up with his PCP. Return parameters discussed in detail. Patient verbalizes understanding and agrees with this plan. This patient's care was discussed with my attending, Dr. Balbuena. - Lab Data Result diagrams: 11/27/21 14:58 11/27/21 14:58 Lab Results 11/27/21 11/27/21 11/27/21 Range/Units 14:55 14:58 14:58 WBC 5.5 (3.8-10.6) k/uL RBC 5.25 (4.30-5.90) m/uL Hgb 14.6 (13.0-17.5) gm/dL Hct 44.8 (39.0-53.0) % MCV 85.3 (80.0-100.0) fL MCH 27.9 (25.0-35.0) pg MCHC 32.7 (31.0-37.0) g/dL RDW 13.9 (11.5-15.5) % Plt Count 259 (150-450) k/uL MPV 7.1 Neutrophils % 65 % Lymphocytes % 24 % Monocytes % 5 % Eosinophils % 3 % Basophils % 1 % Neutrophils # 3.6 (1.3-7.7) k/uL Lymphocytes # 1.3 (1.0-4.8) k/uL Monocytes # 0.3 (0-1.0) k/uL Eosinophils # 0.2 (0-0.7) k/uL Basophils # 0.0 (0-0.2) k/uL PT 9.5 (9.0-12.0) sec INR 0.8 (<1.2) D-Dimer (<0.60) mg/L FEU Sodium (137-145) mmol/L Potassium (3.5-5.1) mmol/L Chloride (98-107) mmol/L Carbon Dioxide (22-30) mmol/L Anion Gap mmol/L BUN (9-20) mg/dL Creatinine (0.66-1.25) mg/dL Est GFR (CKD-EPI)AfAm (>60 ml/min/1.73 sqM) Est GFR (CKD-EPI)NonAf (>60 ml/min/1.73 sqM) Glucose (74-99) mg/dL POC Glucose (mg/dL) 393 H (75-99) mg/dL POC Glu Mechatronics Engineer ID Rosendo Guy Calcium (8.4-10.2) mg/dL Magnesium (1.6-2.3) mg/dL Total Bilirubin (0.2-1.3) mg/dL AST (17-59) U/L ALT (4-49) U/L Alkaline Phosphatase (38-126) U/L Troponin I (0.000-0.034) ng/mL NT-Pro-B Natriuret Pep pg/mL Total Protein (6.3-8.2) g/dL Albumin (3.5-5.0) g/dL 0511/27/21 11/27/21 Range/Units 14:58 14:58 18:11 WBC (3.8-10.6) k/uL RBC (4.30-5.90) m/uL Hgb (13.0-17.5) gm/dL Hct (39.0-53.0) % MCV (80.0-100.0) fL MCH (25.0-35.0) pg MCHC (31.0-37.0) g/dL RDW (11.5-15.5) % Plt Count (150-450) k/uL MPV Neutrophils % % Lymphocytes % % Monocytes % % Eosinophils % % Basophils % % Neutrophils # (1.3-7.7) k/uL Lymphocytes # (1.0-4.8) k/uL Monocytes # (0-1.0) k/uL Eosinophils # (0-0.7) k/uL Basophils # (0-0.2) k/uL PT (9.0-12.0) sec INR (<1.2) D-Dimer 0.49 (<0.60) mg/L FEU Sodium 133 L (137-145) mmol/L Potassium 4.8 (3.5-5.1) mmol/L Chloride 101 (98-107) mmol/L Carbon Dioxide 19 L (22-30) mmol/L Anion Gap 13 mmol/L BUN 9 (9-20) mg/dL Creatinine 0.61 L (0.66-1.25) mg/dL Est GFR (CKD-EPI)AfAm >90 (>60 ml/min/1.73 sqM) Est GFR (CKD-EPI)NonAf >90 (>60 ml/min/1.73 sqM) Glucose 378 H (74-99) mg/dL POC Glucose (mg/dL) (75-99) mg/dL POC Glu Mechatronics Engineer ID Calcium 9.6 (8.4-10.2) mg/dL Magnesium (1.6-2.3) mg/dL Total Bilirubin 0.6 (0.2-1.3) mg/dL AST 74 H (17-59) U/L ALT 113 H (4-49) U/L Alkaline Phosphatase 137 H (38-126) U/L Troponin I <0.012 (0.000-0.034) ng/mL NT-Pro-B Natriuret Pep pg/mL Total Protein 7.3 (6.3-8.2) g/dL Albumin 4.5 (3.5-5.0) g/dL 11/27/21 11/27/21 11/27/21 Range/Units 18:11 19:43 19:43 WBC (3.8-10.6) k/uL RBC (4.30-5.90) m/uL Hgb (13.0-17.5) gm/dL Hct (39.0-53.0) % MCV (80.0-100.0) fL MCH (25.0-35.0) pg MCHC (31.0-37.0) g/dL RDW (11.5-15.5) % Plt Count (150-450) k/uL MPV Neutrophils % % Lymphocytes % % Monocytes % % Eosinophils % % Basophils % % Neutrophils # (1.3-7.7) k/uL Lymphocytes # (1.0-4.8) k/uL Monocytes # (0-1.0) k/uL Eosinophils # (0-0.7) k/uL Basophils # (0-0.2) k/uL PT (9.0-12.0) sec INR (<1.2) D-Dimer (<0.60) mg/L FEU Sodium (137-145) mmol/L Potassium (3.5-5.1) mmol/L Chloride (98-107) mmol/L Carbon Dioxide (22-30) mmol/L Anion Gap mmol/L BUN (9-20) mg/dL Creatinine (0.66-1.25) mg/dL Est GFR (CKD-EPI)AfAm (>60 ml/min/1.73 sqM) Est GFR (CKD-EPI)NonAf (>60 ml/min/1.73 sqM) Glucose (74-99) mg/dL POC Glucose (mg/dL) (75-99) mg/dL POC Glu Mechatronics Engineer ID Calcium (8.4-10.2) mg/dL Magnesium 2.0 (1.6-2.3) mg/dL Total Bilirubin (0.2-1.3) mg/dL AST (17-59) U/L ALT (4-49) U/L Alkaline Phosphatase (38-126) U/L Troponin I <0.012 (0.000-0.034) ng/mL NT-Pro-B Natriuret Pep 38 pg/mL Total Protein (6.3-8.2) g/dL Albumin (3.5-5.0) g/dL - EKG Data EKG shows normal: sinus rhythm Rate: tachycardia EKG Comments: EKG obtained at 1458 shows sinus tachycardia with moderate intraventricular conduction delay and nonspecific T-wave abnormality. Ventricular rate 117, OK interval 157, QRS duration 120, QT/QTC 380/450. Interpretation: abnormal rhythm ECG. - Radiology Data Radiology results: report reviewed, image reviewed Two-view chest x-ray was obtained. Report was reviewed in its entirety. Impression per Dr. Reddy is no acute cardiopulmonary disease/process. Disposition Clinical Impression: Non-cardiac chest pain, Chronic tachycardia, Hyperglycemia Disposition: HOME SELF-CARE Condition: Stable Instructions (If sedation given, give patient instructions): Chest Pain (ED), Diabetic Hyperglycemia (ED) Additional Instructions: Increase your intake of fluids and take your medications as directed. Follow-up with your PCP for a recheck this week. Keep your appointment as scheduled with neurosurgeon. Return to the emergency department with any new, worsening, or concerning symptoms. Is patient prescribed a controlled substance at d/c from ED?: No Referrals: Trav Muniz MD [Primary Care Provider] - 1-2 days Time of Disposition: 21:42
[2021-11-27] MEDS: NITROGLYCERIN SL TABS 0.4 MG TAB SUBLINGUAL STA ×2 (19:47→20:11)
[2021-11-27 19:48] VITALS: BP 157/108; RESP 20
[2021-11-27] MEDS ORDERED: ONDANSETRON 4 MG/2 ML VIAL IVP STA (20:41)
[2021-11-27] MEDS ORDERED: HYDROmorphone 1 MG/ML 1 ML SYRINGE IVP STA (20:41)
[2021-11-27] MEDS ORDERED: METOPROLOL TARTRATE 25 MG TAB PO STA (21:40)
[2021-11-27 21:57] VITALS: PULSE 104
== END 2021-11-27 21:58 | disposition home or self-care (01) ==
LOC: EC 14:44
DX: R00.0 Tachycardia, unspecified (principal); R73.9 Hyperglycemia, unspecified; J45.909 Unspecified asthma, uncomplicated; E78.5 Hyperlipidemia, unspecified; I10 Essential (primary) hypertension; I25.2 Old myocardial infarction; Z88.1 Allergy status to other antibiotic agents; Z88.5 Allergy status to narcotic agent; Z88.6 Allergy status to analgesic agent; Z88.8 Allergy status to other drugs, medicaments and biological substances; Z88.9 Allergy status to unspecified drugs, medicaments and biological substances
CPT/HCPCS: 36415; 93005; 85379; 83880; 80053; 83735; 84484; 85025; 85610; 71046; 99285; 96374; 96375; J2405; J1170

== ENCOUNTER 2021-12-25 18:31 | Observation (INO) | payer OTHER ==
[2021-12-25] MEDS ORDERED: NITROGLYCERIN OINT 1 INCH/GM PACKET TOPICAL STA (18:42)
[2021-12-25 18:46] LABS: Glucose,Whole Blood 426 mg/dL (70-110)
[2021-12-25] MEDS ORDERED: fentaNYL (PF) 50 MCG/ML 2 ML AMP IV STA (19:11)
--- NOTE | 2021-12-25 19:15 | XR ---
EXAMINATION TYPE: XR chest 2V DATE OF EXAM: 12/25/2021 COMPARISON: NONE HISTORY: Chest pain TECHNIQUE: 2 views FINDINGS: Heart and mediastinum are normal. Lungs are clear. Diaphragm is normal. Bony thorax is inta ct. There is neural stimulator in the lower thoracic spine. IMPRESSION: No active cardiopulmonary disease. No change.
[2021-12-25 19:21] LABS: Basophils # (A) 0.1 k/uL (0-0.2); Basophils % (A) 2 %; Eosinophils # (A) 0.2 k/uL (0-0.7); Eosinophils % (A) 2 %; HCT 42.9 % (39.0-53.0); HGB 14.5 gm/dL (13.0-17.5); Lymphocytes # (A) 1.6 k/uL (1.0-4.8); Lymphocytes % (A) 20 %; MCH 29.4 pg (25.0-35.0); MCHC 33.7 g/dL (31.0-37.0); MCV 87.1 fL (80.0-100.0); Mean Platelet Volume 7.2; Monocytes # (A) 0.5 k/uL (0-1.0); Monocytes % (A) 6 %; Neutrophils # (A) 5.5 k/uL (1.3-7.7); Neutrophils % (A) 69 %; Platelet Count 269 k/uL (150-450); RBC 4.93 m/uL (4.30-5.90); RDW 13.3 % (11.5-15.5)
--- NOTE | 2021-12-25 19:21 | ED ---
Chest Pain HPI - General Chief Complaint: Chest Pain Stated Complaint: Chest pain Time Seen by Provider: 12/25/21 18:31 Source: patient, RN notes reviewed Mode of arrival: EMS Limitations: no limitations - History of Present Illness Initial Comments: 56-year-old male with a history of a recent shoulder dislocation about 2 days ago on the left who presents by EMS complaints of chest pain started this afternoon. He states it radiates to the left shoulder and neck and is feeling like pressure and stabbing in nature moderate in severity. He was brought in by EMS. No known history of cardiac disease. He did also have an elevated blood glucose level. He states the levels of gotten higher than 100. He states she's been urinating frequently. He also states he has a history of pulmonary embolism and is on anticoagulants at this time. MD Complaint: chest pain - Related Data Home Medications Medication Instructions Recorded Confirmed Diltiazem Cd [Cardizem CD] 300 mg PO DAILY 02/07/21 12/25/21 Insulin Lispro [humaLOG Kwikpen] See Protocol SQ AC-TID 06/16/21 12/25/21 Omeprazole Magnesium [PriLOSEC OTC] 20 mg PO DAILY 06/16/21 12/25/21 Metoprolol Tartrate [Lopressor] 50 mg PO BID 09/12/21 12/25/21 oxyCODONE-APAP 5-325MG [Percocet 1 tab PO Q6H PRN 09/12/21 12/25/21 5-325 mg] Apixaban [Eliquis] 5 mg PO BID 12/25/21 12/25/21 Gabapentin [Neurontin] 400 mg PO TID 12/25/21 12/25/21 Insulin Glargine,Hum.rec.anlog 30 unit SQ BID 12/25/21 12/25/21 [Basaglar Kwikpen U-100] Previous Rx's Medication Instructions Recorded Atorvastatin [Lipitor] 80 mg PO HS #30 tab 09/13/21 Allergies Allergy/AdvReac Type Severity Reaction Status Date / Time doxycycline Allergy Swelling Verified 12/25/21 19:50 ketorolac tromethamine Allergy Rash/Hives Verified 12/25/21 19:50 [From Toradol] morphine Allergy Rash/Hives Verified 12/25/21 19:50 metoclopramide HCl AdvReac Dystonic Verified 12/25/21 19:50 [From Reglan] Reaction prochlorperazine edisylate AdvReac Dystonic Verified 12/25/21 19:50 [From Compazine] Reaction prochlorperazine maleate AdvReac Dystonic Verified 12/25/21 19:50 [From Compazine] Reaction Review of Systems ROS Statement: Those systems with pertinent positive or pertinent negative responses have been documented in the HPI. ROS Other: All systems not noted in ROS Statement are negative. EKG Findings - EKG Results: EKG: interpreted by ERMD, sinus rhythm (Sinus tachycardia rate of 1:30. Interval 140 QRS duration 113 daily since QTC 347/424 and complete right bundle- branch block nonspecific T-wave configuration) Past Medical History Past Medical History: Asthma, Coronary Artery Disease (CAD), Chest Pain / Angina, Diabetes Mellitus, GERD/Reflux, GI Bleed, Hyperlipidemia, Hypertension, Myocardial Infarction ([place]), Mitral Valve Prolapse (MVP), Pulmonary Embolus (PE), Sleep Apnea/CPAP/BIPAP Additional Past Medical History / Comment(s): Asthmatic bronchitis-chronic, IDDM type II, neuropathy bilateral feet, lower and upper GI bleeds, PUD, dive rticulitis, colectomy d/t benign mass/intusseption, BPH, renal cysts, nephrolithiais, UTI with sepsis, chronic back pain 2ndary to herniated lumbar discs/sciatica, JARED does not use his Cpap, MVP, murmur Last Myocardial Infarction Date:: 2011 History of Any Multi-Drug Resistant Organisms: MRSA Date of last positivie culture/infection: 2015 MDRO Source:: left axilla Past Surgical History: Appendectomy, Back Surgery, Cholecystectomy, Heart Catheterization, Hernia Repair Additional Past Surgical History / Comment(s): Lumbar decompression/fusion/laminectomy, spinal stimulator, T lift procedure, L inguinal hernia repair, multiple ESWLs/stents/double J caths, colonoscopy, 02/2020 colectomy, EGDs for food obstructions and dilations Past Anesthesia/Blood Transfusion Reactions: No Reported Reaction Past Psychological History: No Psychological Hx Reported Smoking Status: Never smoker Past Alcohol Use History: None Reported Past Drug Use History: None Reported - Past Family History Father Family Medical History: Chest Pain / Angina Additional Family Medical History / Comment(s): "lung problems" Mother Family Medical History: Cancer, Chest Pain / Angina, Congestive Heart Failure (CHF), Osteoarthritis (OA), Thyroid Disorder Additional Family Medical History / Comment(s): "female cancer" General Exam - General Exam Comments Initial Comments: This is a well-developed well-nourished awake alert oriented times 3 male Limitations: no limitations General appearance: alert, in no apparent distress Head exam: Present: atraumatic, normocephalic, normal inspection Eye exam: Present: normal appearance, PERRL, EOMI. Absent: scleral icterus, conjunctival injection, periorbital swelling ENT exam: Present: normal exam, mucous membranes moist Neck exam: Present: normal inspection, tenderness (Tennis palpation on the lateral aspect of the neck musculature), full ROM, other (Sensitivity or bruits). Absent: meningismus, lymphadenopathy Respiratory exam: Present: normal lung sounds bilaterally, chest wall tenderness. Absent: respiratory distress, wheezes, rales, rhonchi, stridor Cardiovascular Exam: Present: normal rhythm, tachycardia, normal heart sounds. Absent: systolic murmur, diastolic murmur, rubs, gallop, clicks GI/Abdominal exam: Present: soft, normal bowel sounds. Absent: distended, tenderness, guarding, rebound, rigid Extremities exam: Present: normal inspection, full ROM, tenderness, normal capillary refill. Absent: pedal edema, joint swelling, calf tenderness Back exam: Present: normal inspection Neurological exam: Present: alert, oriented X3, CN II-XII intact Psychiatric exam: Present: normal affect, normal mood Skin exam: Present: warm, dry, intact, normal color. Absent: rash Course Vital Signs 12/25/21 12/25/21 12/25/21 18:38 18:47 20:30 Temperature 98.4 F Pulse Rate 131 H 117 H Pulse Rate [ 129 H Cover Cutter ] Respiratory 24 20 Rate Blood Pressure 190/114 148/76 O2 Sat by Pulse 98 96 Oximetry Chest Pain MDM - MDM Imaging reviewed no acute findings. Patient persisted having chest pain he also has evidence of hyperglycemia patient will be admitted case discussed with Dr. Chaparro Disposition Clinical Impression: Hyperglycemia, Atypical chest pain Disposition: ADMITTED IP TO THIS [facility] Condition: Fair Referrals: Trav Muniz MD [REFERRING] - 1-2 days Decision Date: 12/25/21 Decision Time: 20:58
[2021-12-25 19:32] LABS: INR 0.9 (<1.2); Prothrombin Time 9.5 sec (9.0-12.0)
[2021-12-25 19:35] LABS: ALT 27 U/L (4-49); AST 27 U/L (17-59); African American GFR (CKD) >90 (>60 ml/min/1.73 sqM); Albumin 4.5 g/dL (3.5-5.0); Alkaline Phosphatase 129 U/L (38-126); Anion Gap 14 mmol/L; Blood Urea Nitrogen 14 mg/dL (9-20); Calcium 9.6 mg/dL (8.4-10.2); Carbon Dioxide 19 mmol/L (22-30); Chloride 102 mmol/L (98-107); Glucose 461 mg/dL (74-99); Lipase 101 U/L (23-300); Magnesium 1.9 mg/dL (1.6-2.3); Non-African American GFR(CKD) >90 (>60 ml/min/1.73 sqM); Partial Thromboplastin Time 21.1 sec (22.0-30.0); Potassium 4.6 mmol/L (3.5-5.1); Sodium 135 mmol/L (137-145); Total Bilirubin 0.4 mg/dL (0.2-1.3); Total Protein 7.3 g/dL (6.3-8.2)
[2021-12-25] MEDS ORDERED: SODIUM CHLORIDE 0.9% 1,000 ML IV STA ×2 (19:51)
[2021-12-25] MEDS ORDERED: INSULIN REGULAR 100 UNIT/ML VIAL (IV) IV ONE (20:22)
[2021-12-25] MEDS ORDERED: NITROGLYCERIN SL TABS 0.4 MG TAB SUBLINGUAL STA (20:32)
[2021-12-25] MEDS ORDERED: NITROGLYCERIN SL TABS 0.4 MG TAB SUBLINGUAL PRN (20:59)
--- NOTE | 2021-12-25 21:05 | ED ---
Medical Decision Making - Lab Data Result diagrams: 12/25/21 18:57 12/25/21 18:57 Lab Results 12/25/21 12/25/21 12/25/21 Range/Units 18:43 18:57 18:57 WBC 8.0 (3.8-10.6) k/uL RBC 4.93 (4.30-5.90) m/uL Hgb 14.5 (13.0-17.5) gm/dL Hct 42.9 (39.0-53.0) % MCV 87.1 (80.0-100.0) fL MCH 29.4 (25.0-35.0) pg MCHC 33.7 (31.0-37.0) g/dL RDW 13.3 (11.5-15.5) % Plt Count 269 (150-450) k/uL MPV 7.2 Neutrophils % 69 % Lymphocytes % 20 % Monocytes % 6 % Eosinophils % 2 % Basophils % 2 % Neutrophils # 5.5 (1.3-7.7) k/uL Lymphocytes # 1.6 (1.0-4.8) k/uL Monocytes # 0.5 (0-1.0) k/uL Eosinophils # 0.2 (0-0.7) k/uL Basophils # 0.1 (0-0.2) k/uL PT 9.5 (9.0-12.0) sec INR 0.9 (<1.2) APTT 21.1 L (22.0-30.0) sec D-Dimer 0.42 (<0.60) mg/L FEU Sodium (137-145) mmol/L Potassium (3.5-5.1) mmol/L Chloride (98-107) mmol/L Carbon Dioxide (22-30) mmol/L Anion Gap mmol/L BUN (9-20) mg/dL Creatinine (0.66-1.25) mg/dL Est GFR (CKD-EPI)AfAm (>60 ml/min/1.73 sqM) Est GFR (CKD-EPI)NonAf (>60 ml/min/1.73 sqM) Glucose (74-99) mg/dL POC Glucose (mg/dL) 426 H (70-110) mg/dL POC Glu Personal Lines Underwriter ID Jg Garces Plasma Lactic Acid Edd (0.7-2.0) mmol/L Calcium (8.4-10.2) mg/dL Magnesium (1.6-2.3) mg/dL Total Bilirubin (0.2-1.3) mg/dL AST (17-59) U/L ALT (4-49) U/L Alkaline Phosphatase (38-126) U/L Troponin I (0.000-0.034) ng/mL NT-Pro-B Natriuret Pep pg/mL Total Protein (6.3-8.2) g/dL Albumin (3.5-5.0) g/dL Lipase (23-300) U/L Acetone, Qual (Negative) 12/25/21 12/25/21 12/25/21 Range/Units 18:57 18:57 18:57 WBC (3.8-10.6) k/uL RBC (4.30-5.90) m/uL Hgb (13.0-17.5) gm/dL Hct (39.0-53.0) % MCV (80.0-100.0) fL MCH (25.0-35.0) pg MCHC (31.0-37.0) g/dL RDW (11.5-15.5) % Plt Count (150-450) k/uL MPV Neutrophils % % Lymphocytes % % Monocytes % % Eosinophils % % Basophils % % Neutrophils # (1.3-7.7) k/uL Lymphocytes # (1.0-4.8) k/uL Monocytes # (0-1.0) k/uL Eosinophils # (0-0.7) k/uL Basophils # (0-0.2) k/uL PT (9.0-12.0) sec INR (<1.2) APTT (22.0-30.0) sec D-Dimer (<0.60) mg/L FEU Sodium 135 L (137-145) mmol/L Potassium 4.6 (3.5-5.1) mmol/L Chloride 102 (98-107) mmol/L Carbon Dioxide 19 L (22-30) mmol/L Anion Gap 14 mmol/L BUN 14 (9-20) mg/dL Creatinine 0.60 L (0.66-1.25) mg/dL Est GFR (CKD-EPI)AfAm >90 (>60 ml/min/1.73 sqM) Est GFR (CKD-EPI)NonAf >90 (>60 ml/min/1.73 sqM) Glucose 461 H (74-99) mg/dL POC Glucose (mg/dL) (70-110) mg/dL POC Glu Personal Lines Underwriter ID Plasma Lactic Acid Edd (0.7-2.0) mmol/L Calcium 9.6 (8.4-10.2) mg/dL Magnesium 1.9 (1.6-2.3) mg/dL Total Bilirubin 0.4 (0.2-1.3) mg/dL AST 27 (17-59) U/L ALT 27 (4-49) U/L Alkaline Phosphatase 129 H (38-126) U/L Troponin I <0.012 (0.000-0.034) ng/mL NT-Pro-B Natriuret Pep 54 pg/mL Total Protein 7.3 (6.3-8.2) g/dL Albumin 4.5 (3.5-5.0) g/dL Lipase 101 (23-300) U/L Acetone, Qual (Negative) 12/25/21 12/25/21 Range/Units 18:57 19:30 WBC (3.8-10.6) k/uL RBC (4.30-5.90) m/uL Hgb (13.0-17.5) gm/dL Hct (39.0-53.0) % MCV (80.0-100.0) fL MCH (25.0-35.0) pg MCHC (31.0-37.0) g/dL RDW (11.5-15.5) % Plt Count (150-450) k/uL MPV Neutrophils % % Lymphocytes % % Monocytes % % Eosinophils % % Basophils % % Neutrophils # (1.3-7.7) k/uL Lymphocytes # (1.0-4.8) k/uL Monocytes # (0-1.0) k/uL Eosinophils # (0-0.7) k/uL Basophils # (0-0.2) k/uL PT (9.0-12.0) sec INR (<1.2) APTT (22.0-30.0) sec D-Dimer (<0.60) mg/L FEU Sodium (137-145) mmol/L Potassium (3.5-5.1) mmol/L Chloride (98-107) mmol/L Carbon Dioxide (22-30) mmol/L Anion Gap mmol/L BUN (9-20) mg/dL Creatinine (0.66-1.25) mg/dL Est GFR (CKD-EPI)AfAm (>60 ml/min/1.73 sqM) Est GFR (CKD-EPI)NonAf (>60 ml/min/1.73 sqM) Glucose (74-99) mg/dL POC Glucose (mg/dL) (70-110) mg/dL POC Glu Personal Lines Underwriter ID Plasma Lactic Acid Edd 4.0 H* (0.7-2.0) mmol/L Calcium (8.4-10.2) mg/dL Magnesium (1.6-2.3) mg/dL Total Bilirubin (0.2-1.3) mg/dL AST (17-59) U/L ALT (4-49) U/L Alkaline Phosphatase (38-126) U/L Troponin I (0.000-0.034) ng/mL NT-Pro-B Natriuret Pep pg/mL Total Protein (6.3-8.2) g/dL Albumin (3.5-5.0) g/dL Lipase (23-300) U/L Acetone, Qual Negative (Negative) Disposition Clinical Impression: Hyperglycemia, Atypical chest pain, Tachycardia, Dehydration Disposition: ADMITTED IP TO THIS HOSP Condition: Fair Referrals: Trav Muniz MD [REFERRING] - 1-2 days
[2021-12-25] MEDS: oxyCODONE-APAP 5-325MG 1 EACH TAB PO PRN (21:32)
[2021-12-25] MEDS: GABAPENTIN 400 MG CAP PO SCH (21:32)
[2021-12-25] MEDS: NITROGLYCERIN OINT 1 INCH/GM PACKET TOPICAL SCH (22:59)
[2021-12-25 23:05] LABS: Glucose,Whole Blood 300 mg/dL (70-110)
[2021-12-26] MEDS: oxyCODONE-APAP 5-325MG 1 EACH TAB PO PRN ×3 (03:46→15:48)
[2021-12-26] MEDS: NITROGLYCERIN OINT 1 INCH/GM PACKET TOPICAL SCH ×3 (06:27→15:37)
[2021-12-26] MEDS: INSULIN ASPART (NovoLOG) 100 UNIT/ML VIAL SQ SCH ×3 (06:27→16:34)
[2021-12-26 06:35] LABS: Glucose,Whole Blood 278 mg/dL (70-110)
[2021-12-26 06:43] LABS: Basophils # (A) 0.1 k/uL (0-0.2); Basophils % (A) 1 %; Eosinophils # (A) 0.4 k/uL (0-0.7); Eosinophils % (A) 6 %; HCT 40.7 % (39.0-53.0); HGB 13.6 gm/dL (13.0-17.5); Lymphocytes # (A) 1.7 k/uL (1.0-4.8); Lymphocytes % (A) 27 %; MCH 29.6 pg (25.0-35.0); MCHC 33.3 g/dL (31.0-37.0); MCV 88.9 fL (80.0-100.0); Mean Platelet Volume 7.5; Monocytes # (A) 0.3 k/uL (0-1.0); Monocytes % (A) 5 %; Neutrophils # (A) 3.6 k/uL (1.3-7.7); Neutrophils % (A) 57 %; Platelet Count 202 k/uL (150-450); RBC 4.58 m/uL (4.30-5.90); RDW 13.8 % (11.5-15.5); WBC 6.4 k/uL (3.8-10.6)
[2021-12-26 07:02] LABS: African American GFR (CKD) >90 (>60 ml/min/1.73 sqM); Anion Gap 9 mmol/L; Blood Urea Nitrogen 12 mg/dL (9-20); Calcium 8.4 mg/dL (8.4-10.2); Carbon Dioxide 18 mmol/L (22-30); Chloride 108 mmol/L (98-107); Glucose 236 mg/dL (74-99); Magnesium 1.8 mg/dL (1.6-2.3); Non-African American GFR(CKD) >90 (>60 ml/min/1.73 sqM); Potassium 4.7 mmol/L (3.5-5.1); Sodium 135 mmol/L (137-145)
[2021-12-26 07:25] VITALS: RESP 18
[2021-12-26] MEDS ORDERED: PANTOPRAZOLE 40 MG TABLET PO SCH (07:30)
[2021-12-26] MEDS: GABAPENTIN 400 MG CAP PO SCH ×2 (07:32→15:48)
--- NOTE | 2021-12-26 07:59 | P.HPIM ---
History of Present Illness 66 years old male with past medical history of Asthma, Coronary Artery Disease Diabetes Mellitus, GERD/Reflux, GI Bleed, Hyperlipidemia, Hypertension, Mitral Valve Prolapse , Pulmonary Embolus, Sleep Apnea/CPAP/BIPAP neuropathy bilateral feet, lower and upper GI bleeds, PUD, diverticulitis, colectomy d/t benign mass/intusseption, BPH, nephrolithiais, chronic back pain 2ndary to herniated lumbar discs/sciatica, s/p Lumbar decompression/fusion/laminectomy, spinal stimulator Patient presents because of chest pain which is started yesterday after he woke up with it, in the middle of the chest radiating to the left arm and shoulder about 8/10 in severity, currently improved to 5/10 in severity. [place] like stabbing with no associated shortness of breath or coughing. However he has some exertional dyspnea. However he has no breathing difficulty now. No fever. No abdominal pain or vomiting or diarrhea. No urinary complaints. No headache or dizziness. He has chronic numbness in his fingers that comes and goes, related to his spinal problem and he follows with a spine surgeon/neurosurgeon as he states that his postop appointment with him tomorrow. However patient agrees to stay in the hospital for now. Patient states that he thinks he dislocated his left shoulder because it spelled out of his position but he managed to put him back by himself. He wants to [facility] and his been told his shoulder x-ray is been negative and to follow up with orthopedic. He still has limitation of movement in his left shoulder He says that it happened to him before and both times his sugar was elevated more than 500. States Lantus 15 units twice a day and insulin sliding scale as he confirms to me. He follow-up with Dr. Jennings who manages his sugar. He denies smoking, alcohol or illicit drugs Patient Is on admission was tachycardic and hypertensive. She is afebrile and saturating 96% on room air. CBC, INR, BMP and liver enzymes are unremarkable. D-dimer is negative at 0.4. Glucose is elevated more than 400, ablated lactic acid at 4.0. Liver enzymes are not elevated. Troponin is negative. Acetone is negative. Lipase is normal at 101. Diabetes mellitus, with hyperglycemia on admission Chest x-ray: No acute process on admission. Patient EKG showing sinus tachycardia at 130, incomplete right bundle branch block and QTC [address]-T changes. On admission patient received nitroglycerin ointment, fentanyl, normal saline, insulin Repeat labs this morning show sodium 135, creatinine 0.5. Lactic acid 1.6, magnesium 1.8. Calcium 8.4. CBC is completely normal. Past Medical History Past Medical History: Asthma, Coronary Artery Disease (CAD), Chest Pain / Angina, Diabetes Mellitus, GERD/Reflux, GI Bleed, Hyperlipidemia, Hypertension, Myocardial Infarction (NC), Mitral Valve Prolapse (MVP), Pulmonary Embolus (PE), Sleep Apnea/CPAP/BIPAP Additional Past Medical History / Comment(s): Asthmatic bronchitis-chronic, IDDM type II, neuropathy bilateral feet, lower and upper GI bleeds, PUD, diverticulitis, colectomy d/t benign mass/intusseption, BPH, renal cysts, nephrolithiais, UTI with sepsis, chronic back pain 2ndary to herniated lumbar discs/sciatica, JARED does not use his Cpap, MVP, murmur Last Myocardial Infarction Date:: 2011 History of Any Multi-Drug Resistant Organisms: MRSA Date of last positivie culture/infection: 2015 MDRO Source:: left axilla Past Surgical History: Appendectomy, Back Surgery, Cholecystectomy, Heart Catheterization, Hernia Repair Additional Past Surgical History / Comment(s): Lumbar decompressio n/fusion/laminectomy, spinal stimulator, T lift procedure, L inguinal hernia repair, multiple ESWLs/stents/double J caths, colonoscopy, 02/2020 colectomy, EGDs for food obstructions and dilations Past Anesthesia/Blood Transfusion Reactions: No Reported Reaction Past Psychological History: No Psychological Hx Reported Smoking Status: Never smoker Past Alcohol Use History: None Reported Past Drug Use History: None Reported - Past Family History Father Family Medical History: Chest Pain / Angina Additional Family Medical History / Comment(s): "lung problems" Mother Family Medical History: Cancer, Chest Pain / Angina, Congestive Heart Failure (CHF), Osteoarthritis (OA), Thyroid Disorder Additional Family Medical History / Comment(s): "female cancer" Medications and Allergies Home Medications Medication Instructions Recorded Confirmed Type Diltiazem Cd [Cardizem CD] 300 mg PO DAILY 02/07/21 12/25/21 History Insulin Lispro [humaLOG Kwikpen] See Protocol SQ AC-TID 06/16/21 12/25/21 History Omeprazole Magnesium [PriLOSEC OTC] 20 mg PO DAILY 06/16/21 12/25/21 History Metoprolol Tartrate [Lopressor] 50 mg PO BID 09/12/21 12/25/21 History oxyCODONE-APAP 5-325MG [Percocet 1 tab PO Q6H PRN 09/12/21 12/25/21 History 5-325 mg] Atorvastatin [Lipitor] 80 mg PO HS #30 tab 09/13/21 12/25/21 Rx Apixaban [Eliquis] 5 mg PO BID 12/25/21 12/25/21 History Gabapentin [Neurontin] 400 mg PO TID 12/25/21 12/25/21 History Insulin Glargine,Hum.rec.anlog 30 unit SQ BID 12/25/21 12/25/21 History [Basaglar Kwikpen U-100] Allergies Allergy/AdvReac Type Severity Reaction Status Date / Time doxycycline Allergy Swelling Verified 12/25/21 19:50 ketorolac tromethamine Allergy Rash/Hives Verified 12/25/21 19:50 [From Toradol] morphine Allergy Rash/Hives Verified 12/25/21 19:50 metoclopramide HCl AdvReac Dystonic Verified 12/25/21 19:50 [From Reglan] Reaction prochlorperazine edisylate AdvReac Dystonic Verified 12/25/21 19:50 [From Compazine] Reaction prochlorperazine maleate AdvReac Dystonic Verified 12/25/21 19:50 [From Compazine] Reaction Physical Exam Vitals: Vital Signs Temp Pulse Pulse Resp BP BP Pulse Ox 12/26/21 04:00 97.7 F 93 17 131/81 96 12/25/21 23:35 98.1 F 113 H 16 128/82 95 12/25/21 20:30 117 H 20 148/76 96 12/25/21 18:47 129 H 12/25/21 18:38 98.4 F 131 H 24 190/114 98 Intake and Output 12/25/21 12/25/21 12/26/21 14:59 22:59 06:59 Other: Voiding Method Urinal Weight 126.552 kg -GENERAL: The patient is alert and oriented x3, not in any acute distress. Obese HEENT: Pupils are round and equally reacting to light. EOMI. No scleral icterus. No conjunctival pallor. Normocephalic, atraumatic. No pharyngeal erythema. No thyromegaly. CARDIOVASCULAR: S1 and S2 present. No murmurs, rubs, or gallops. PULMONARY: Chest is clear to auscultation, no wheezing or crackles. ABDOMEN: Soft, nontender, nondistended, normoactive bowel sounds. No palpable organomegaly. -MUSCULOSKELETAL: No joint swelling or deformity. Left shoulder pain. Patient is able to move his left arm above his head but with difficulty due to pain EXTREMITIES: No cyanosis, clubbing, or pedal edema. NEUROLOGICAL: Gross neurological examination did not reveal any focal deficits. SKIN: No rashes. no petechiae. Results CBC & Chem 7: 12/26/21 05:53 12/26/21 05:53 Labs: Abnormal Lab Results - Last 24 Hours (Table) 12/25/21 12/25/21 12/25/21 Range/Units 18:43 18:57 18:57 APTT 21.1 L (22.0-30.0) sec Sodium 135 L (137-145) mmol/L Carbon Dioxide 19 L (22-30) mmol/L Creatinine 0.60 L (0.66-1.25) mg/dL Glucose 461 H (74-99) mg/dL POC Glucose (mg/dL) 426 H (70-110) mg/dL Plasma Lactic Acid Edd (0.7-2.0) mmol/L Alkaline Phosphatase 129 H (38-126) U/L 12/25/21 12/25/21 12/26/21 Range/Units 18:57 23:04 06:24 APTT (22.0-30.0) sec Sodium (137-145) mmol/L Carbon Dioxide (22-30) mmol/L Creatinine (0.66-1.25) mg/dL Glucose (74-99) mg/dL POC Glucose (mg/dL) 300 H 278 H (70-110) mg/dL Plasma Lactic Acid Edd 4.0 H* (0.7-2.0) mmol/L Alkaline Phosphatase (38-126) U/L Thrombosis Risk Factor Assmnt - Choose All That Apply Each Factor Represents 1 point: Obesity (BMI >25) Each Risk Factor Represents 3 Points: History of DVT/PE Other congenital or acquired thrombophilia - If yes, enter type in comment: No Thrombosis Risk Factor Assessment Total Risk Factor Score: 4 Thrombosis Risk Factor Assessment Level: Moderate Risk Assessment and Plan Assessment: Chest pain, rule out cardiac causes. D-dimer is negative at 0.4 to Left shoulder pain and limitation of movement, suspected dislocation Diabetes mellitus, type II wall with hyperglycemia Hypertension Hyperlipidemia History of pulmonary embolism on liquids History of coronary artery disease History of mitral valve prolapse History of sleep apnea on CPAP/BiPAP, noncompliant. Diabetic neuropathy History of GI bleed Back pain status post surgery BPH History of nephrolithiasis Morbid obesity with BMI of 38.9 Plan: This is a pleasant 56 result male who presents with chest pain and hyperglycemia Serial troponin Continue with Eliquis Cardiology consult Check hemoglobin A1c Orthopedic team consult Labs and medication were reviewed.. Continue same treatment. Continue with symptomatic treatment. Resume home medication. Monitor lytes and vitals. DVT and GI prophylaxis. Further recommendations as per clinical course of the patient DVT prophylaxis: Eliquis GI Prophylaxis: Pepcid PT/OT: Pending Prognosis is guarded i Discussed plan of care with patient and he agrees with
[2021-12-26] MEDS ORDERED: METOPROLOL TARTRATE 50 MG TAB PO SCH (09:00)
[2021-12-26] MEDS ORDERED: APIXABAN 5 MG TAB PO SCH (09:00)
[2021-12-26] MEDS ORDERED: INSULIN DETEMIR (LEVEMIR) 100 UNIT/ML SYR SQ SCH (09:00)
[2021-12-26] MEDS ORDERED: DILTIAZEM CD 300 MG CAP.ER.24H PO SCH (09:00)
--- NOTE | 2021-12-26 09:14 | XR ---
EXAMINATION TYPE: XR shoulder complete LT DATE OF EXAM: 12/26/2021 8:49 AM INDICATION: Patient age:Male; 56 years old; Reason for study: pain; COMPARISON: None TECHNIQUE: The left shoulder was examined in AP, internally rotated and scapular Y projections. . FINDINGS: Mild glenoid osteophyte formation. No evidence of acute osseous pathology, joint dislocation, or sof t tissue swelling. The remaining portions of the visualized chest are unremarkable. Postsurgical antony ges in the neck with hardware in place. IMPRESSION: 1. No acute osseous pathology. 2. Mild right humeral osteoarthrosis.
[2021-12-26] MEDS ORDERED: oxyCODONE-APAP 5-325MG 1 EACH TAB PO STA (11:21)
--- NOTE | 2021-12-26 11:21 | P.CRDCN ---
History of Present Illness History of present illness: 56-year-old gentleman with history of paroxysmal atrial fibrillation comes to hospital with chest pain for which she is admitted and cardiology had been consulted. The primary symptom is left shoulder pain. He has had shoulder dislocation and right shoulder pain he has some pain that radiates across his chest. At the time of my evaluation this morning he is chest pain-free hemodynamically stable and is eager to go home. He has also had palpitations and sinus tachycardia. Which she has had in the past. His troponin is negative. EKG shows sinus tachycardia without acute ST-T wave changes. He had a cardiac catheterization last year that revealed normal coronary arteries. I will better controlled his heart rate by increasing the dose of metoprolol continuing the Cardizem and continue rest of his medications. I will stop the Nitropaste. He doesn't require any further cardiac testing at this time at I will follow him up in the office and may consider doing a stress test if I have to Review of systems: 14 out of 14 review of systems has been performed pertinent set as documented General: The patient is awake and alert, in no distress, and does not appear acutely ill. Skin: Skin is warm and dry and no rashes or lesions are noted. Eye: Pupils are equal, round and reactive to light, extra-ocular movements are intact; there is normal conjunctiva bilaterally. Ears, nose, mouth and throat: There are moist mucous membranes and no oral lesions. Neck: The neck is supple, there is no tenderness or JVD. Cardiovascular: There is a regular rate and rhythm. No murmur, rub or gallop is appreciated. Respiratory: Lungs are clear to auscultation, respirations are non-labored, breath sounds are equal. Gastrointestinal: Soft, non-distended, non-tender abdomen without masses or organomegaly noted. There is no rebound or guarding present. Bowel sounds are unremarkable. Back: There is no tenderness to palpation in the midline. There is no obvious deformity. Musculoskeletal: Normal ROM, no tenderness, There is no pedal edema. There is no calf tenderness or swelling. Extremities: No edema. Vascular: Femoral pulse is normal. Posterior tibial pulses are normal .Dorsalis pedis is palpable. Neurological: CN II-XII intact. There are no obvious motor or sensory deficits. Speech is normal. Psychiatric: Cooperative, appropriate mood & affect, normal judgment. Assessment and plan: Atypical chest pain Paroxysmal atrial fibrillation Left shoulder pain Hypertension Patient is stable for discharge from cardiac standpoint Increase the dose of metoprolol to 50 3 times a day and discharge Past Medical History Past Medical History: Asthma, Coronary Artery Disease (CAD), Chest Pain / Angina, Diabetes Mellitus, GERD/Reflux, GI Bleed, Hyperlipidemia, Hypertension, Myocardial Infarction (DC), Mitral Valve Prolapse (MVP), Pulmonary Embolus (PE), Sleep Apnea/CPAP/BIPAP Additional Past Medical History / Comment(s): Asthmatic bronchitis-chronic, IDDM type II, neuropathy bilateral feet, lower and upper GI bleeds, PUD, diverticulitis, colectomy d/t benign mass/intusseption, BPH, renal cysts, nephrolithiais, UTI with sepsis, chronic back pain 2ndary to herniated lumbar discs/sciatica, JARED does not use his Cpap, MVP, murmur Last Myocardial Infarction Date:: 2011 History of Any Multi-Drug Resistant Organisms: MRSA Date of last positivie culture/infection: 2015 MDRO Source:: left axilla Past Surgical History: Appendectomy, Back Surgery, Cholecystectomy, Heart Catheterization, Hernia Repair Additional Past Surgical History / Comment(s): Lumbar decompression/fusion/laminectomy, spinal stimulator, T lift procedure, L inguinal hernia repair, multiple ESWLs/stents/double J caths, colonoscopy, 02/2020 colectomy, EGDs for food obstructions and dilations Past Anesthesia/Blood Transfusion Reactions: No Reported Reaction Past Psychological History: No Psychological Hx Reported Smoking Status: Never smoker Past Alcohol Use History: None Reported Past Drug Use History: None Reported - Past Family History Father Family Medical History: Chest Pain / Angina Additional Family Medical History / Comment(s): "lung problems" Mother Family Medical History: Cancer, Chest Pain / Angina, Congestive Heart Failure (CHF), Osteoarthritis (OA), Thyroid Disorder Additional Family Medical History / Comment(s): "female cancer" Medications and Allergies Home Medications Medication Instructions Recorded Confirmed Type Diltiazem Cd [Cardizem CD] 300 mg PO DAILY 02/07/21 12/25/21 History Insulin Lispro [humaLOG Kwikpen] See Protocol SQ AC-TID 06/16/21 12/25/21 History Omeprazole Magnesium [PriLOSEC OTC] 20 mg PO DAILY 06/16/21 12/25/21 History Metoprolol Tartrate [Lopressor] 50 mg PO BID 09/12/21 12/25/21 History oxyCODONE-APAP 5-325MG [Percocet 1 tab PO Q6H PRN 09/12/21 12/25/21 History 5-325 mg] Atorvastatin [Lipitor] 80 mg PO HS #30 tab 09/13/21 12/25/21 Rx Apixaban [Eliquis] 5 mg PO BID 12/25/21 12/25/21 History Gabapentin [Neurontin] 400 mg PO TID 12/25/21 12/25/21 History Insulin Glargine,Hum.rec.anlog 30 unit SQ BID 12/25/21 12/25/21 History [Luanne Dianashe U-100] Allergies Allergy/AdvReac Type Severity Reaction Status Date / Time doxycycline Allergy Swelling Verified 12/25/21 19:50 ketorolac tromethamine Allergy Rash/Hives Verified 12/25/21 19:50 [From Toradol] morphine Allergy Rash/Hives Verified 12/25/21 19:50 metoclopramide HCl AdvReac Dystonic Verified 12/25/21 19:50 [From Reglan] Reaction prochlorperazine edisylate AdvReac Dystonic Verified 12/25/21 19:50 [From Compazine] Reaction prochlorperazine maleate AdvReac Dystonic Verified 12/25/21 19:50 [From Compazine] Reaction Physical Exam Vitals: Vital Signs Temp Pulse Pulse Resp BP BP Pulse Ox 12/26/21 07:23 98.4 F 87 18 152/93 97 12/26/21 04:00 97.7 F 93 17 131/81 96 12/25/21 23:35 98.1 F 113 H 16 128/82 95 12/25/21 20:30 117 H 20 148/76 96 12/25/21 18:47 129 H 12/25/21 18:38 98.4 F 131 H 24 190/114 98 Intake and Output 12/25/21 12/26/21 12/26/21 22:59 06:59 14:59 Intake Total 10 Output Total 800 Balance -790 Intake: IV 10 Invasive Line 1 10 Output: Urine 800 Other: Voiding Method Urinal Toilet Urinal Weight 126.552 kg Results 12/26/21 05:53 12/26/21 05:53 Cardiac Enzymes 12/25/21 12/25/21 12/26/21 Range/Units 18:57 18:57 05:53 AST 27 (17-59) U/L Troponin I <0.012 <0.012 (0.000-0.034) ng/mL Coagulation 12/25/21 Range/Units 18:57 PT 9.5 (9.0-12.0) sec APTT 21.1 L (22.0-30.0) sec CBC 12/25/21 12/26/21 Range/Units 18:57 05:53 WBC 8.0 6.4 (3.8-10.6) k/uL RBC 4.93 4.58 (4.30-5.90) m/uL Hgb 14.5 13.6 (13.0-17.5) gm/dL Hct 42.9 40.7 (39.0-53.0) % Plt Count 269 202 (150-450) k/uL Comprehensive Metabolic Panel 12/25/21 12/26/21 Range/Units 18:57 05:53 Sodium 135 L 135 L (137-145) mmol/L Potassium 4.6 4.7 (3.5-5.1) mmol/L Chloride 102 108 H (98-107) mmol/L Carbon Dioxide 19 L 18 L (22-30) mmol/L BUN 14 12 (9-20) mg/dL Creatinine 0.60 L 0.52 L (0.66-1.25) mg/dL Glucose 461 H 236 H (74-99) mg/dL Calcium 9.6 8.4 (8.4-10.2) mg/dL AST 27 (17-59) U/L ALT 27 (4-49) U/L Alkaline Phosphatase 129 H (38-126) U/L Total Protein 7.3 (6.3-8.2) g/dL Albumin 4.5 (3.5-5.0) g/dL Current Medications Generic Name Dose Route Start Last Admin Trade Name Freq PRN Reason Stop Dose Admin Apixaban 5 mg 12/26/21 09:00 12/26/21 07:31 Apixaban 5 Mg Tab PO 5 mg BID JOEY Administration Protocol Atorvastatin Calcium 80 mg 12/26/21 21:00 Atorvastatin 80 Mg Tab PO HS [facility] Diltiazem HCl 300 mg 12/26/21 09:00 12/26/21 07:32 Diltiazem Cd 300 Mg Cap.Er.24h PO 300 mg DAILY JOEY Administration Gabapentin 400 mg 12/25/21 22:00 12/26/21 07:32 Gabapentin 400 Mg Cap PO 400 mg TID [facility] Administration Insulin Aspart 0 unit 12/26/21 07:30 12/26/21 06:27 Insulin Aspart (Novolog) 100 Unit/Ml Vial SQ 7 unit ACHS [facility] Administration Protocol Insulin Detemir 30 unit 12/26/21 09:00 12/26/21 07:32 Insulin Detemir (Levemir) 100 Unit/Ml Syr SQ 30 unit BID [facility] [place] Administration Metoprolol Tartrate 50 mg 12/26/21 09:00 12/26/21 07:32 Metoprolol Tartrate 50 Mg Tab PO 50 mg BID [facility] Administration Nitroglycerin 0.4 mg 12/25/21 20:59 Nitroglycerin Sl Tabs 0.4 Mg Tab SUBLINGUAL Q5M PRN Chest Pain Nitroglycerin 1 inch 12/26/21 00:00 12/26/21 06:27 Nitroglycerin Oint 1 Inch/Gm Packet TOPICAL 1 inch Q6HR [facility] Administration Oxycodone/Acetaminophen 1 each 12/25/21 21:02 12/26/21 09:52 Oxycodone-Apap 5-325mg 1 Each Tab PO 1 each Q6H PRN Administration Pain Pantoprazole Sodium 40 mg 12/26/21 07:30 12/26/21 06:27 Pantoprazole 40 Mg Tablet PO Not Given AC-BRKFST [facility] Intake and Output 12/25/21 12/26/21 12/26/21 22:59 06:59 14:59 Intake Total 10 Output Total 800 Balance -790 Intake: IV 10 Invasive Line 1 10 Output: Urine 800 Other: Voiding Method Urinal Toilet Urinal Weight 126.552 kg 12/26/21 05:53 12/26/21 05:53
[2021-12-26 11:53] LABS: Glucose,Whole Blood 299 mg/dL (70-110)
[2021-12-26 12:04] LABS: Chol/HDL Ratio 4.96 Ratio; LDL Cholesterol,Calculated 89.7 mg/dL (0.0-131.0)
--- NOTE | 2021-12-26 13:27 | P.PN ---
Progress Note - Text Progress Note Date: 12/26/21 Consult reason: left shoulder pain and limitation of movement X-ray of the left shoulder has been reviewed. I have discussed and reviewed the imaging with my attending, Dr. Wilkins. The left shoulder appears stable at this time. Negative for any fractures, dislocations, soft tissue swelling. There is mild osteoarthritis. Clavicle and AC joint are intact. Postsurgical hardware is present in cervical spine. Full consult pending
[2021-12-26 15:47] VITALS: BP 158/95; PULSE 84; TEMP 98
[2021-12-26] MEDS ORDERED: ATORVASTATIN 80 MG TAB PO SCH (21:00)
== END 2021-12-26 17:29 | disposition left against medical advice (07) ==
LOC: EC 18:31 → 3SCARD 20:59
PROVIDERS: ADMIT Internal Medicine; ATTEND Internal Medicine
DX: R07.89 Other chest pain (principal); M19.012 Primary osteoarthritis, left shoulder; E11.65 Type 2 diabetes mellitus with hyperglycemia; Z53.29 Procedure and treatment not carried out because of patient's decision for other reasons; I10 Essential (primary) hypertension; E78.5 Hyperlipidemia, unspecified; Z76.5 Malingerer [conscious simulation]; J45.909 Unspecified asthma, uncomplicated; I25.10 Atherosclerotic heart disease of native coronary artery without angina pectoris; K21.9 Gastro-esophageal reflux disease without esophagitis; I34.1 Nonrheumatic mitral (valve) prolapse; E11.40 Type 2 diabetes mellitus with diabetic neuropathy, unspecified; N40.0 Benign prostatic hyperplasia without lower urinary tract symptoms; G89.29 Other chronic pain; M51.26 Other intervertebral disc displacement, lumbar region; M54.30 Sciatica, unspecified side; R06.09 Other forms of dyspnea; R00.0 Tachycardia, unspecified; I45.10 Unspecified right bundle-branch block; G47.33 Obstructive sleep apnea (adult) (pediatric); I25.2 Old myocardial infarction; E66.01 Morbid (severe) obesity due to excess calories; Z68.38 Body mass index [BMI] 38.0-38.9, adult; I48.0 Paroxysmal atrial fibrillation; E86.0 Dehydration; R00.2 Palpitations; G62.9 Polyneuropathy, unspecified; Z98.1 Arthrodesis status; Z79.4 Long term (current) use of insulin; Z91.19 Patient's noncompliance with other medical treatment and regimen; Z79.899 Other long term (current) drug therapy; Z79.01 Long term (current) use of anticoagulants; Z88.1 Allergy status to other antibiotic agents; Z88.5 Allergy status to narcotic agent; Z88.8 Allergy status to other drugs, medicaments and biological substances; Z87.19 Personal history of other diseases of the digestive system; Z86.711 Personal history of pulmonary embolism; Z86.718 Personal history of other venous thrombosis and embolism; Z87.442 Personal history of urinary calculi; Z87.11 Personal history of peptic ulcer disease; Z87.440 Personal history of urinary (tract) infections; Z86.14 Personal history of Methicillin resistant Staphylococcus aureus infection; Z90.49 Acquired absence of other specified parts of digestive tract; Z82.49 Family history of ischemic heart disease and other diseases of the circulatory system; Z80.9 Family history of malignant neoplasm, unspecified; Z82.61 Family history of arthritis; Z83.49 Family history of other endocrine, nutritional and metabolic diseases
CPT/HCPCS: 96374; 99285; 36415; 93005; 85379; 83880; 80061; 80053; 80048; 82009; 83605 ×2; 83690; 83735 ×2; 84484 ×2; 85025 ×2; 85610; 85730; 83036; 73030; 71046; G0378 ×2; J3010

== ENCOUNTER 2022-01-01 13:13 | Emergency (ER) | payer OTHER ==
[2022-01-01 13:24] VITALS: BP 166/98; PULSE 120; RESP 18; TEMP 99.6
[2022-01-01] MEDS ORDERED: HYDROmorphone 1 MG/ML 1 ML SYRINGE IM STA (13:53)
--- NOTE | 2022-01-01 13:57 | ED ---
General Adult HPI - General Chief complaint: Back Pain/Injury Stated complaint: Back pain Time Seen by Provider: 01/01/22 13:39 Source: patient, RN notes reviewed, old records reviewed Mode of arrival: ambulatory Limitations: no limitations - History of Present Illness Initial comments: 56-year-old male with chronic back pain including neck and lumbar back pain. Patient states that he is scheduled for follow-up with his neurosurgeon on Monday for evaluation of possible cervical spine surgeries had an MRI and is awaiting a definitive surgical plan. He states that he's had increased neck and low back pain. No fall. He did have recent shoulder injury where he was seen at outside hospital and is currently in her left upper extremity sling. He s tates that he had dislocated his shoulder. He states this is also been bothering him. He takes Percocet at home which has helped but not completely alleviated his pain. He denies bowel or bladder dysfunction. He is ambulatory with normal gait, normal lower extremity strength. No numbness or tingling. - Related Data Home Medications Medication Instructions Recorded Confirmed Diltiazem Cd [Cardizem CD] 300 mg PO DAILY 02/07/21 12/25/21 Insulin Lispro [humaLOG Kwikpen] See Protocol SQ AC-TID 06/16/21 12/25/21 Omeprazole Magnesium [PriLOSEC OTC] 20 mg PO DAILY 06/16/21 12/25/21 Metoprolol Tartrate [Lopressor] 50 mg PO BID 09/12/21 12/25/21 oxyCODONE-APAP 5-325MG [Percocet 1 tab PO Q6H PRN 09/12/21 12/25/21 5-325 mg] Apixaban [Eliquis] 5 mg PO BID 12/25/21 12/25/21 Gabapentin [Neurontin] 400 mg PO TID 12/25/21 12/25/21 Insulin Glargine,Hum.rec.anlog 30 unit SQ BID 12/25/21 12/25/21 [Basaglar Kwikpen U-100] Previous Rx's Medication Instructions Recorded Atorvastatin [Lipitor] 80 mg PO HS #30 tab 09/13/21 Allergies Allergy/AdvReac Type Severity Reaction Status Date / Time doxycycline Allergy Swelling Verified 01/01/22 13:20 ketorolac tromethamine Allergy Rash/Hives Verified 01/01/22 13:20 [From Toradol] morphine Allergy Rash/Hives Verified 01/01/22 13:20 metoclopramide HCl AdvReac Dystonic Verified 01/01/22 13:20 [From Reglan] Reaction prochlorperazine edisylate AdvReac Dystonic Verified 01/01/22 13:20 [From Compazine] Reaction prochlorperazine maleate AdvReac Dystonic Verified 01/01/22 13:20 [From Compazine] Reaction Review of Systems ROS Statement: Those systems with pertinent positive or pertinent negative responses have been documented in the HPI. ROS Other: All systems not noted in ROS Statement are negative. Past Medical History Past Medical History: Asthma, Coronary Artery Disease (CAD), Chest Pain / Angina, Diabetes Mellitus, GERD/Reflux, GI Bleed, Hyperlipidemia, Hypertension, Myocardial Infarction ([place]), Mitral Valve Prolapse (MVP), Pulmonary Embolus (PE), Sleep Apnea/CPAP/BIPAP Additional Past Medical History / Comment(s): Asthmatic bronchitis-chronic, IDDM type II, neuropathy bilateral feet, lower and upper GI bleeds, PUD, diverticulitis, colectomy d/t benign mass/intusseption, BPH, renal cysts, nephrolithiais, UTI with sepsis, chronic back pain 2ndary to herniated lumbar discs/sciatica, JARED does not use his Cpap, MVP, murmur Last Myocardial Infarction Date:: 2011 History of Any Multi-Drug Resistant Organisms: MRSA Date of last positivie culture/infection: 2015 MDRO Source:: left axilla Past Surgical History: Appendectomy, Back Surgery, Cholecystectomy, Heart Catheterization, Hernia Repair Additional Past Surgical History / Comment(s): Lumbar decompression/fusion/laminectomy, spinal stimulator, T lift procedure, L inguinal hernia repair, multiple ESWLs/stents/double J caths, colonoscopy, 02/2020 colectomy, EGDs for food obstructions and dilations Past Anesthesia/Blood Transfusion Reactions: No Reported Reaction Past Psychological History: No Psychological Hx Reported Smoking Status: Never smoker Past Alcohol Use History: None Reported Past Drug Use History: None Reported - Past Family History Father Family Medical History: Chest Pain / Angina Additional Family Medical History / Comment(s): "lung problems" Mother Family Medical History: Cancer, Chest Pain / Angina, Congestive Heart Failure (CHF), Osteoarthritis (OA), Thyroid Disorder Additional Family Medical History / Comment(s): "female cancer" General Exam Limitations: no limitations General appearance: alert, in no apparent distress Head exam: Present: atraumatic, normocephalic Eye exam: Present: normal appearance, PERRL ENT exam: Present: normal exam Neck exam: Present: normal inspection. Absent: tenderness, meningismus Respiratory exam: Present: normal lung sounds bilaterally. Absent: respiratory distress Cardiovascular Exam: Present: normal rhythm, tachycardia GI/Abdominal exam: Present: soft. Absent: distended, tenderness, guarding, rebound Extremities exam: Present: normal inspection, normal capillary refill. Absent: pedal edema Back exam: Present: paraspinal tenderness Neurological exam: Present: alert, oriented X3, CN II-XII intact. Absent: motor sensory deficit Psychiatric exam: Present: normal affect, normal mood Skin exam: Present: warm, dry, intact. Absent: cyanosis, diaphoretic Course Vital Signs 01/01/22 13:20 Temperature 99.6 F Pulse Rate 120 H Respiratory 18 Rate Blood Pressure 166/98 O2 Sat by Pulse 96 Oximetry Medical Decision Making - Medical Decision Making 56-year-old male with chronic neck and low back pain. Patient is scheduled to see his neurosurgeon on Monday which is 2 days from now. No fever, normal gait, normal strength in the bilateral upper extremities, no numbness, no bowel or bladder dysfunction, no alarming features. This is a chronic pain issue. He is given a dose of pain medication the emergency department and discharged with return parameters. Disposition Clinical Impression: Chronic neck pain Disposition: HOME SELF-CARE Condition: Fair Instructions (If sedation given, give patient instructions): Pain Management (ED), Chronic Pain (ED) Is patient prescribed a controlled substance at d/c from ED?: No Referrals: Trav Muniz MD [Primary Care Provider] - 1-2 days Time of Disposition: 13:56
== END 2022-01-01 14:37 | disposition home or self-care (01) ==
LOC: EC 13:13
DX: M54.2 Cervicalgia (principal); M54.50 Low back pain, unspecified; J45.909 Unspecified asthma, uncomplicated; I25.2 Old myocardial infarction; E11.9 Type 2 diabetes mellitus without complications; E78.5 Hyperlipidemia, unspecified; I10 Essential (primary) hypertension; I25.10 Atherosclerotic heart disease of native coronary artery without angina pectoris; K21.9 Gastro-esophageal reflux disease without esophagitis; Z88.1 Allergy status to other antibiotic agents; Z88.6 Allergy status to analgesic agent; Z88.5 Allergy status to narcotic agent; Z88.8 Allergy status to other drugs, medicaments and biological substances; Z79.899 Other long term (current) drug therapy; Z79.84 Long term (current) use of oral hypoglycemic drugs; Z79.4 Long term (current) use of insulin; Z79.01 Long term (current) use of anticoagulants
CPT/HCPCS: 99283; 96372; J1170

== ENCOUNTER 2022-02-04 11:52 | Emergency (ER) | payer OTHER ==
[2022-02-04 11:57] LABS: Glucose,Whole Blood 397 mg/dL (70-110)
[2022-02-04] MEDS ORDERED: SODIUM CHLORIDE 0.9% 1,000 ML IV STA (12:14)
[2022-02-04 13:06] LABS: Basophils # (A) 0.1 k/uL (0-0.2); Basophils % (A) 1 %; Eosinophils # (A) 0.2 k/uL (0-0.7); Eosinophils % (A) 2 %; HCT 44.2 % (39.0-53.0); HGB 14.7 gm/dL (13.0-17.5); Lymphocytes # (A) 1.3 k/uL (1.0-4.8); Lymphocytes % (A) 20 %; MCH 28.4 pg (25.0-35.0); MCHC 33.2 g/dL (31.0-37.0); MCV 85.5 fL (80.0-100.0); Mean Platelet Volume 7.1; Monocytes # (A) 0.3 k/uL (0-1.0); Monocytes % (A) 5 %; Neutrophils # (A) 4.9 k/uL (1.3-7.7); Neutrophils % (A) 71 %; Platelet Count 293 k/uL (150-450); RBC 5.17 m/uL (4.30-5.90); RDW 13.5 % (11.5-15.5); WBC 6.8 k/uL (3.8-10.6)
[2022-02-04] MEDS ORDERED: HYDROcodone/APAP 7.5-325MG 1 EACH TAB PO ONE (13:22)
[2022-02-04 13:26] LABS: ALT 50 U/L (4-49); AST 29 U/L (17-59); African American GFR (CKD) >90 (>60 ml/min/1.73 sqM); Albumin 4.6 g/dL (3.5-5.0); Alkaline Phosphatase 144 U/L (38-126); Anion Gap 10 mmol/L; Blood Urea Nitrogen 13 mg/dL (9-20); Calcium 10.1 mg/dL (8.4-10.2); Carbon Dioxide 22 mmol/L (22-30); Chloride 104 mmol/L (98-107); Glucose 391 mg/dL (74-99); Non-African American GFR(CKD) >90 (>60 ml/min/1.73 sqM); Potassium 4.7 mmol/L (3.5-5.1); Sodium 136 mmol/L (137-145); Total Bilirubin 0.6 mg/dL (0.2-1.3); Total Protein 7.3 g/dL (6.3-8.2)
[2022-02-04 13:32] LABS: INR 0.8 (<1.2); Prothrombin Time 9.4 sec (9.0-12.0)
[2022-02-04 13:35] LABS: Partial Thromboplastin Time 20.4 sec (22.0-30.0)
[2022-02-04 13:53] LABS: Appearance,Urine Clear (Clear); Color,Urine Light Yellow; Glucose,Urine (UA) 4+ (Negative); Protein,Urine Negative (Negative); Specific Gravity,Urine 1.035 (1.001-1.035)
[2022-02-04 13:54] LABS: Bilirubin,Urine Negative (Negative); Blood,Urine Trace (Negative); Ketones,Urine Trace (Negative); Leukocyte Esterase,Urine Negative (Negative); Nitrite,Urine Negative (Negative); RBC,Urine <1 /hpf (0-5); Squamous Epithelial Cell,Urine <1 /hpf (0-4); Urobilinogen,Urine <2.0 mg/dL (<2.0)
--- NOTE | 2022-02-04 14:04 | ED ---
General Adult HPI - General Chief complaint: Recheck/Abnormal Lab/Rx Stated complaint: Hyperglycemia Time Seen by Provider: 02/04/22 12:00 Source: patient, EMS Mode of arrival: EMS Limitations: no limitations - History of Present Illness Initial comments: 56-year-old male with past history of diabetes, coronary artery disease, PE on [place] presents to the emergency department with high blood sugar. He has been seen in the emergency department 4 times in the past 2 months for hyperglycemia. Reports that he is supposed to be on a sliding scale however he under doses himself as he is concerned that he is going to take too much insulin and drop his sugars. He normally takes around 10 units with his meals. States that this morning he checked his blood glucose and it was high. He tried to adjust himself with his insulin however was unsuccessful and therefore called EMS. Upon arrival patient does speak of his chronic back pain. Patient req uesting Dilaudid for pain control. Denies any new or worsening symptoms associated with his back pain. No fevers or chills. No nausea or vomiting. No other alleviating, line patroller modifying factors - Related Data Home Medications Medication Instructions Recorded Confirmed Diltiazem Cd [Cardizem CD] 300 mg PO DAILY 02/07/21 12/25/21 Insulin Lispro [humaLOG Kwikpen] See Protocol SQ AC-TID 06/16/21 12/25/21 Omeprazole Magnesium [PriLOSEC OTC] 20 mg PO DAILY 06/16/21 12/25/21 Metoprolol Tartrate [Lopressor] 50 mg PO BID 09/12/21 12/25/21 oxyCODONE-APAP 5-325MG [Percocet 1 tab PO Q6H PRN 09/12/21 12/25/21 5-325 mg] Apixaban [Eliquis] 5 mg PO BID 12/25/21 12/25/21 Gabapentin [Neurontin] 400 mg PO TID 12/25/21 12/25/21 Insulin Glargine,Hum.rec.anlog 30 unit SQ BID 12/25/21 12/25/21 [Basaglar Kwikpen U-100] Previous Rx's Medication Instructions Recorded Atorvastatin [Lipitor] 80 mg PO HS #30 tab 09/13/21 Allergies Allergy/AdvReac Type Severity Reaction Status Date / Time doxycycline Allergy Swelling Verified 02/04/22 12:04 ketorolac tromethamine Allergy Rash/Hives Verified 02/04/22 12:04 [From Toradol] morphine Allergy Rash/Hives Verified 02/04/22 12:04 metoclopramide HCl AdvReac Dystonic Verified 02/04/22 12:04 [From Reglan] Reaction prochlorperazine edisylate AdvReac Dystonic Verified 02/04/22 12:04 [From Compazine] Reaction prochlorperazine maleate AdvReac Dystonic Verified 02/04/22 12:04 [From Compazine] Reaction Review of Systems ROS Statement: Those systems with pertinent positive or pertinent negative responses have been documented in the HPI. ROS Other: All systems not noted in ROS Statement are negative. Past Medical History Past Medical History: Asthma, Coronary Artery Disease (CAD), Chest Pain / Angina, Diabetes Mellitus, GERD/Reflux, GI Bleed, Hyperlipidemia, Hypertension, Myocardial Infarction ([place]), Mitral Valve Prolapse (MVP), Pulmonary Embolus (PE), Sleep Apnea/CPAP/BIPAP Additional Past Medical History / Comment(s): Asthmatic bronchitis-chronic, IDDM type II, neuropathy bilateral feet, lower and upper GI bleeds, PUD, diverticulitis, colectomy d/t benign mass/intusseption, BPH, renal cysts, nephrolithiais, UTI with sepsis, chronic back pain 2ndary to herniated lumbar discs/sciatica, JARED does not use his Cpap, MVP, murmur Last Myocardial Infarction Date:: 2011 History of Any Multi-Drug Resistant Organisms: C-DIFF, MRSA Date of last positivie culture/infection: 2015 MDRO Source:: left axilla Past Surgical History: Appendectomy, Back Surgery, Cholecystectomy, Heart Catheterization, Hernia Repair Additional Past Surgical History / Comment(s): Lumbar decompression/fusion/laminectomy, spinal stimulator, T lift procedure, L inguinal hernia repair, multiple ESWLs/stents/double J caths, colonoscopy, 02/2020 colectomy, EGDs for food obstructions and dilations Past Anesthesia/Blood Transfusion Reactions: No Reported Reaction Past Psychological History: No Psychological Hx Reported Smoking Status: Never smoker Past Alcohol Use History: None Reported Past Drug Use History: None Reported - Past Family History Father Family Medical History: Chest Pain / Angina Additional Family Medical History / Comment(s): "lung problems" Mother Family Medical History: Cancer, Chest Pain / Angina, Congestive Heart Failure (CHF), Osteoarthritis (OA), Thyroid Disorder Additional Family Medical History / Comment(s): "female cancer" General Exam Limitations: no limitations General appearance: alert, in no apparent distress Head exam: Present: atraumatic, normocephalic, normal inspection Eye exam: Present: normal appearance, PERRL, EOMI. Absent: scleral icterus, conjunctival injection, periorbital swelling ENT exam: Present: normal exam, mucous membranes moist Neck exam: Present: normal inspection. Absent: tenderness, meningismus, lymphadenopathy Respiratory exam: Present: normal lung sounds bilaterally. Absent: respiratory distress, wheezes, rales, rhonchi, stridor Cardiovascular Exam: Present: normal rhythm, tachycardia, normal heart sounds. Absent: systolic murmur, diastolic murmur, rubs, gallop, clicks GI/Abdominal exam: Present: soft, normal bowel sounds. Absent: distended, tenderness, guarding, rebound, rigid Extremities exam: Present: normal inspection, full ROM, normal capillary refill. Absent: tenderness, pedal edema, joint swelling, calf tenderness Back exam: Present: normal inspection Neurological exam: Present: alert, oriented X3, CN II-XII intact Psychiatric exam: Present: normal affect, normal mood Skin exam: Present: warm, dry, intact, normal color. Absent: rash Course Vital Signs 02/04/22 02/04/22 11:56 16:22 Temperature 98.7 F 98.1 F Pulse Rate 122 H 106 H Respiratory 20 18 Rate Blood Pressure 142/103 169/93 O2 Sat by Pulse 95 96 Oximetry EKG Findings - EKG Comments: EKG Findings:: EKG at 1233 demonstrates sinus tachycardia with a rate of 126. WA interval 152. QRS 112. QTC of 419. No acute ST segment elevations or depressions Medical Decision Making - Medical Decision Making Upon arrival patient was placed in room 8. Thorough history and physical exam was performed. IV needed to be established by ultrasound guidance which is performed by myself. Laboratory studies are completed and demonstrate a glucose of 397. No signs of DKA. Patient was given 2 L of fluid and 8 units of insulin. Glucose is checked again and is down to 252. Patient will be discharged home at this time and needs to follow up with primary care for further management of his hyperglycemia and diabetes. Return for any new or worsening symptoms. Patient was discharged home in stable condition - Lab Data Result diagrams: 02/04/22 12:29 02/04/22 12:29 Lab Results 02/04/22 02/04/22 02/04/22 Range/Units 11:55 12:29 12:29 WBC 6.8 (3.8-10.6) k/uL RBC 5.17 (4.30-5.90) m/uL Hgb 14.7 (13.0-17.5) gm/dL Hct 44.2 (39.0-53.0) % MCV 85.5 (80.0-100.0) fL MCH 28.4 (25.0-35.0) pg MCHC 33.2 (31.0-37.0) g/dL RDW 13.5 (11.5-15.5) % Plt Count 293 (150-450) k/uL MPV 7.1 Neutrophils % 71 % Lymphocytes % 20 % Monocytes % 5 % Eosinophils % 2 % Basophils % 1 % Neutrophils # 4.9 (1.3-7.7) k/uL Lymphocytes # 1.3 (1.0-4.8) k/uL Monocytes # 0.3 (0-1.0) k/uL Eosinophils # 0.2 (0-0.7) k/uL Basophils # 0.1 (0-0.2) k/uL PT 9.4 (9.0-12.0) sec INR 0.8 (<1.2) APTT 20.4 L (22.0-30.0) sec Sodium (137-145) mmol/L Potassium (3.5-5.1) mmol/L Chloride (98-107) mmol/L Carbon Dioxide (22-30) mmol/L Anion Gap mmol/L BUN (9-20) mg/dL Creatinine (0.66-1.25) mg/dL Est GFR (CKD-EPI)AfAm (>60 ml/min/1.73 sqM) Est GFR (CKD-EPI)NonAf (>60 ml/min/1.73 sqM) Glucose (74-99) mg/dL POC Glucose (mg/dL) 397 H (70-110) mg/dL POC Glu Family Intervention Specialist ID Luli Kirkpatrick Lactic Ac Sepsis Rflx Plasma Lactic Acid Edd (0.7-2.0) mmol/L Calcium (8.4-10.2) mg/dL Magnesium (1.6-2.3) mg/dL Total Bilirubin (0.2-1.3) mg/dL AST (17-59) U/L ALT (4-49) U/L Alkaline Phosphatase (38-126) U/L Troponin I (0.000-0.034) ng/mL Total Protein (6.3-8.2) g/dL Albumin (3.5-5.0) g/dL Urine Color Urine Appearance (Clear) Urine pH (5.0-8.0) Ur Specific [place] (1.001-1.035) Urine Protein (Negative) Urine Glucose (UA) (Negative) Urine Ketones (Negative) Urine Blood (Negative) Urine Nitrite (Negative) Urine Bilirubin (Negative) Urine Urobilinogen (<2.0) mg/dL Ur Leukocyte Esterase (Negative) Urine RBC (0-5) /hpf Ur Squamous Epith Cells (0-4) /hpf Acetone, Qual (Negative) 02/04/22 02/04/22 02/04/22 Range/Units 12:29 12:29 12:29 WBC (3.8-10.6) k/uL RBC (4.30-5.90) m/uL Hgb (13.0-17.5) gm/dL Hct (39.0-53.0) % MCV (80.0-100.0) fL MCH (25.0-35.0) pg MCHC (31.0-37.0) g/dL RDW (11.5-15.5) % Plt Count (150-450) k/uL MPV Neutrophils % % Lymphocytes % % Monocytes % % Eosinophils % % Basophils % % Neutrophils # (1.3-7.7) k/uL Lymphocytes # (1.0-4.8) k/uL Monocytes # (0-1.0) k/uL Eosinophils # (0-0.7) k/uL Basophils # (0-0.2) k/uL PT (9.0-12.0) sec INR (<1.2) APTT (22.0-30.0) sec Sodium 136 L (137-145) mmol/L Potassium 4.7 (3.5-5.1) mmol/L Chloride 104 (98-107) mmol/L Carbon Dioxide 22 (22-30) mmol/L Anion Gap 10 mmol/L BUN 13 (9-20) mg/dL Creatinine 0.51 L (0.66-1.25) mg/dL Est GFR (CKD-EPI)AfAm >90 (>60 ml/min/1.73 sqM) Est GFR (CKD-EPI)NonAf >90 (>60 ml/min/1.73 sqM) Glucose 391 H (74-99) mg/dL POC Glucose (mg/dL) (70-110) mg/dL POC Glu Family Intervention Specialist ID Lactic Ac Sepsis Rflx Plasma Lactic Acid Edd 2.7 H* (0.7-2.0) mmol/L Calcium 10.1 (8.4-10.2) mg/dL Magnesium 2.0 (1.6-2.3) mg/dL Total Bilirubin 0.6 (0.2-1.3) mg/dL AST 29 (17-59) U/L ALT 50 H (4-49) U/L Alkaline Phosphatase 144 H (38-126) U/L Troponin I (0.000-0.034) ng/mL Total Protein 7.3 (6.3-8.2) g/dL Albumin 4.6 (3.5-5.0) g/dL Urine Color Light Yellow Urine Appearance Clear (Clear) Urine pH 7.0 (5.0-8.0) Ur Specific [place] 1.035 (1.001-1.035) Urine Protein Negative (Negative) Urine Glucose (UA) 4+ H (Negative) Urine Ketones Trace H (Negative) Urine Blood Trace H (Negative) Urine Nitrite Negative (Negative) Urine Bilirubin Negative (Negative) Urine Urobilinogen <2.0 (<2.0) mg/dL Ur Leukocyte Esterase Negative (Negative) Urine RBC <1 (0-5) /hpf Ur Squamous Epith Cells <1 (0-4) /hpf Acetone, Qual Negative (Negative) 02/04/22 02/04/22 02/04/22 Range/Units 12:29 13:37 15:20 WBC (3.8-10.6) k/uL RBC (4.30-5.90) m/uL Hgb (13.0-17.5) gm/dL Hct (39.0-53.0) % MCV (80.0-100.0) fL MCH (25.0-35.0) pg MCHC (31.0-37.0) g/dL RDW (11.5-15.5) % Plt Count (150-450) k/uL MPV Neutrophils % % Lymphocytes % % Monocytes % % Eosinophils % % Basophils % % Neutrophils # (1.3-7.7) k/uL Lymphocytes # (1.0-4.8) k/uL Monocytes # (0-1.0) k/uL Eosinophils # (0-0.7) k/uL Basophils # (0-0.2) k/uL PT (9.0-12.0) sec INR (<1.2) APTT (22.0-30.0) sec Sodium (137-145) mmol/L Potassium (3.5-5.1) mmol/L Chloride (98-107) mmol/L Carbon Dioxide (22-30) mmol/L Anion Gap mmol/L BUN (9-20) mg/dL Creatinine (0.66-1.25) mg/dL Est GFR (CKD-EPI)AfAm (>60 ml/min/1.73 sqM) Est GFR (CKD-EPI)NonAf (>60 ml/min/1.73 sqM) Glucose (74-99) mg/dL POC Glucose (mg/dL) 266 H (70-110) mg/dL POC Glu Family Intervention Specialist ID Luli Kirkpatrick Lactic Ac Sepsis Rflx Y Plasma Lactic Acid Edd (0.7-2.0) mmol/L Calcium (8.4-10.2) mg/dL Magnesium (1.6-2.3) mg/dL Total Bilirubin (0.2-1.3) mg/dL AST (17-59) U/L ALT (4-49) U/L Alkaline Phosphatase (38-126) U/L Troponin I <0.012 (0.000-0.034) ng/mL Total Protein (6.3-8.2) g/dL Albumin (3.5-5.0) g/dL Urine Color Urine Appearance (Clear) Urine pH (5.0-8.0) Ur Specific [place] (1.001-1.035) Urine Protein (Negative) Urine Glucose (UA) (Negative) Urine Ketones (Negative) Urine Blood (Negative) Urine Nitrite (Negative) Urine Bilirubin (Negative) Urine Urobilinogen (<2.0) mg/dL Ur Leukocyte Esterase (Negative) Urine RBC (0-5) /hpf Ur Squamous Epith Cells (0-4) /hpf Acetone, Qual (Negative) 02/04/22 Range/Units 16:20 WBC (3.8-10.6) k/uL RBC (4.30-5.90) m/uL Hgb (13.0-17.5) gm/dL Hct (39.0-53.0) % MCV (80.0-100.0) fL MCH (25.0-35.0) pg MCHC (31.0-37.0) g/dL RDW (11.5-15.5) % Plt Count (150-450) k/uL MPV Neutrophils % % Lymphocytes % % Monocytes % % Eosinophils % % Basophils % % Neutrophils # (1.3-7.7) k/uL Lymphocytes # (1.0-4.8) k/uL Monocytes # (0-1.0) k/uL Eosinophils # (0-0.7) k/uL Basophils # (0-0.2) k/uL PT (9.0-12.0) sec INR (<1.2) APTT (22.0-30.0) sec Sodium (137-145) mmol/L Potassium (3.5-5.1) mmol/L Chloride (98-107) mmol/L Carbon Dioxide (22-30) mmol/L Anion Gap mmol/L BUN (9-20) mg/dL Creatinine (0.66-1.25) mg/dL Est GFR (CKD-EPI)AfAm (>60 ml/min/1.73 sqM) Est GFR (CKD-EPI)NonAf (>60 ml/min/1.73 sqM) Glucose (74-99) mg/dL POC Glucose (mg/dL) 252 H (70-110) mg/dL POC Glu Family Intervention Specialist ID SchoofLuli Lactic Ac Sepsis Rflx Plasma Lactic Acid Edd (0.7-2.0) mmol/L Calcium (8.4-10.2) mg/dL Magnesium (1.6-2.3) mg/dL Total Bilirubin (0.2-1.3) mg/dL AST (17-59) U/L ALT (4-49) U/L Alkaline Phosphatase (38-126) U/L Troponin I (0.000-0.034) ng/mL Total Protein (6.3-8.2) g/dL Albumin (3.5-5.0) g/dL Urine Color Urine Appearance (Clear) Urine pH (5.0-8.0) Ur Specific [place] (1.001-1.035) Urine Protein (Negative) Urine Glucose (UA) (Negative) Urine Ketones (Negative) Urine Blood (Negative) Urine Nitrite (Negative) Urine Bilirubin (Negative) Urine Urobilinogen (<2.0) mg/dL Ur Leukocyte Esterase (Negative) Urine RBC (0-5) /hpf Ur Squamous Epith Cells (0-4) /hpf Acetone, Qual (Negative) Disposition Clinical Impression: Hyperglycemia due to diabetes mellitus Disposition: HOME SELF-CARE Condition: Stable Instructions (If sedation given, give patient instructions): Diabetic Hyperglycemia (ED) Additional Instructions: Follow-up with your primary care doctor in 2-4 days. They may recommend a higher sliding scale since your sugars have been difficult to control. Follow up with Dr. Arora for further cardiac evaluation. Return for any new or worsening symptoms Is patient prescribed a controlled substance at d/c from ED?: No Referrals: Trav Muniz MD [Primary Care Provider] - 1-2 days Miguel Arora MD [STAFF PHYSICIAN] - 1-2 days Time of Disposition: 16:03
[2022-02-04] MEDS ORDERED: SODIUM CHLORIDE 0.9% 1,000 ML IV ONE (14:56)
[2022-02-04] MEDS ORDERED: INSULIN REGULAR 100 UNIT/ML VIAL (IM/SQ) SQ ONE (14:57)
[2022-02-04] MEDS ORDERED: HYDROmorphone 0.5 MG/0.5 ML SYRINGE IVP STA (15:00)
[2022-02-04 15:28] LABS: Glucose,Whole Blood 266 mg/dL (70-110)
[2022-02-04 16:22] LABS: Glucose,Whole Blood 252 mg/dL (70-110)
[2022-02-04 16:26] VITALS: BP 169/93; PULSE 106; RESP 18; TEMP 98.1
== END 2022-02-04 16:27 | disposition home or self-care (01) ==
LOC: EC 11:52
DX: E11.65 Type 2 diabetes mellitus with hyperglycemia (principal); J45.909 Unspecified asthma, uncomplicated; I25.10 Atherosclerotic heart disease of native coronary artery without angina pectoris; K21.9 Gastro-esophageal reflux disease without esophagitis; E78.5 Hyperlipidemia, unspecified; I10 Essential (primary) hypertension; I25.2 Old myocardial infarction; Z88.1 Allergy status to other antibiotic agents; Z88.6 Allergy status to analgesic agent; Z88.8 Allergy status to other drugs, medicaments and biological substances; Z79.899 Other long term (current) drug therapy; Z79.51 Long term (current) use of inhaled steroids
CPT/HCPCS: 36415; 93005; 80053; 82009; 83605; 83735; 84484; 85025; 85610; 85730; 81001; 99285; 96374; 96361; J1170

== ENCOUNTER 2022-03-27 10:14 | Emergency (ER) | payer OTHER ==
[2022-03-27] MEDS ORDERED: ORPHENADRINE 30 MG/ML 2 ML VIAL IM STA (10:31)
[2022-03-27] MEDS ORDERED: DEXAMETHASONE SOD PHOSPHATE 10 MG/ML 1 ML VIAL IM STA (10:31)
[2022-03-27] MEDS ORDERED: HYDROmorphone 0.5 MG/0.5 ML SYRINGE IM STA (10:31)
--- NOTE | 2022-03-27 10:36 | ED ---
Back Pain HPI - General Chief Complaint: Back Pain/Injury Stated Complaint: neck & back pain Time Seen by Provider: 03/27/22 10:22 Source: patient, EMS, RN notes reviewed, old records reviewed Limitations: no limitations - History of Present Illness Initial Comments: 56-year-old male presents to the emergency room with complaints of chronic neck pain. Patient states that he slipped yesterday falling onto his right knee which dannie his neck and now has increased neck pain. Patient states he does have history of herniated disks in his neck and is scheduled for surgery on O ctober 3 at [facility]. He states he does have a nerve stimulator in place for low back pain which does not help with his neck pain. He states that his Percocet and Neurontin are not helping with this pain. He states when he has these exacerbations of neck pain he usually comes in and gets muscle relaxer, steroid and pain shot. He denies any bowel or bladder incontinence. No fevers, nausea vomiting or diarrhea. MD Complaint: back pain -: days(s) (2) Similar Symptoms Previously: Yes Place: home Quality: tingling Consistency: constant Improves With: none Worsens With: movement Associated Symptoms: denies other symptoms - Related Data Home Medications Medication Instructions Recorded Confirmed Diltiazem Cd [Cardizem CD] 300 mg PO DAILY 02/07/21 12/25/21 Insulin Lispro [humaLOG Kwikpen] See Protocol SQ AC-TID 06/16/21 12/25/21 Omeprazole Magnesium [PriLOSEC OTC] 20 mg PO DAILY 06/16/21 12/25/21 Metoprolol Tartrate [Lopressor] 50 mg PO BID 09/12/21 12/25/21 oxyCODONE-APAP 5-325MG [Percocet 1 tab PO Q6H PRN 09/12/21 12/25/21 5-325 mg] Apixaban [Eliquis] 5 mg PO BID 12/25/21 12/25/21 Gabapentin [Neurontin] 400 mg PO TID 12/25/21 12/25/21 Insulin Glargine,Hum.rec.anlog 30 unit SQ BID 12/25/21 12/25/21 [Basaglar Kwikpen U-100] Previous Rx's Medication Instructions Recorded Atorvastatin [Lipitor] 80 mg PO HS #30 tab 09/13/21 Allergies Allergy/AdvReac Type Severity Reaction Status Date / Time doxycycline Allergy Swelling Verified 02/04/22 12:04 ketorolac tromethamine Allergy Rash/Hives Verified 02/04/22 12:04 [From Toradol] morphine Allergy Rash/Hives Verified 02/04/22 12:04 metoclopramide HCl AdvReac Dystonic Verified 02/04/22 12:04 [From Reglan] Reaction prochlorperazine edisylate AdvReac Dystonic Verified 02/04/22 12:04 [From Compazine] Reaction prochlorperazine maleate AdvReac Dystonic Verified 02/04/22 12:04 [From Compazine] Reaction Review of Systems ROS Statement: Those systems with pertinent positive or pertinent negative responses have been documented in the HPI. ROS Other: All systems not noted in ROS Statement are negative. Past Medical History Past Medical History: Asthma, Coronary Artery Disease (CAD), Chest Pain / Angina, Diabetes Mellitus, GERD/Reflux, GI Bleed, Hyperlipidemia, Hypertension, Myocardial Infarction (ID), Mitral Valve Prolapse (MVP), Pulmonary Embolus (PE), Sleep Apnea/CPAP/BIPAP Additional Past Medical History / Comment(s): Asthmatic bronchitis-chronic, IDDM type II, neuropathy bilateral feet, lower and upper GI bleeds, PUD, diverticulitis, colectomy d/t benign mass/intusseption, BPH, renal cysts, nephrolithiais, UTI with sepsis, chronic back pain 2ndary to herniated lumbar discs/sciatica, JARED does not use his Cpap, MVP, murmur Last Myocardial Infarction Date:: 2011 History of Any Multi-Drug Resistant Organisms: C-DIFF, MRSA Date of last positivie culture/infection: 2015 MDRO Source:: left axilla Past Surgical History: Appendectomy, Back Surgery, Cholecystectomy, Heart Catheterization, Hernia Repair Additional Past Surgical History / Comment(s): Lumbar decompression/fusion/laminectomy, spinal stimulator, T lift procedure, L inguinal hernia repair, multiple ESWLs/stents/double J caths, colonoscopy, 02/2020 colectomy, EGDs for food obstructions and dilations Past Anesthesia/Blood Transfusion Reactions: No Reported Reaction Past Psychological History: No Psychological Hx Reported Smoking Status: Never smoker Past Alcohol Use History: None Reported Past Drug Use History: None Reported - Past Family History Father Family Medical History: Chest Pain / Angina Additional Family Medical History / Comment(s): "lung problems" Mother Family Medical History: Cancer, Chest Pain / Angina, Congestive Heart Failure (CHF), Osteoarthritis (OA), Thyroid Disorder Additional Family Medical History / Comment(s): "female cancer" General Exam Limitations: no limitations General appearance: alert, in no apparent distress Head exam: Present: atraumatic, normocephalic, normal inspection Neck exam: Present: normal inspection, tenderness. Absent: meningismus Respiratory exam: Absent: respiratory distress, accessory muscle use Cardiovascular Exam: Present: tachycardia Extremities exam: Present: normal capillary refill. Absent: pedal edema Right Knee exam: Present: full knee extension. Absent: tenderness, swelling, abrasion, laceration, ecchymosis, deformity, erythema, effusion Lower Leg exam: Present: normal inspection. Absent: tenderness Ankle exam: Present: normal inspection. Absent: tenderness Neurovascular tendon exam: Present: no vascular compromise. Absent: abnormal cap refill, extremity cold to touch, pallor, foot drop Neurological exam: Present: alert, oriented X3 Psychiatric exam: Present: normal affect, normal mood Skin exam: Present: warm, dry, normal color. Absent: cyanosis, diaphoretic, petechiae, pallor Course Vital Signs 03/27/22 03/27/22 03/27/22 10:17 10:24 11:25 Temperature 98.2 F 97.8 F 97.6 F Pulse Rate 110 H 115 H 98 Respiratory 18 18 18 Rate Blood Pressure 152/120 152/120 147/100 O2 Sat by Pulse 98 98 98 Oximetry 03/27/22 11:40 Temperature 97.8 F Pulse Rate 102 H Respiratory 16 Rate Blood Pressure 145/98 O2 Sat by Pulse 98 Oximetry Medical Decision Making - Medical Decision Making Patient presents with chronic neck pain with similar symptoms in the past. Vital signs are stable. Patient has no focal neurological deficits. Denies any head injury. He was given pain medication and directed to follow up with his primary care doctor, keep his appointment with his surgeon April 11. He was directed to continue with his previously prescribed pain medication regimen. He is agreeable to this plan of care. Discussed with Dr. Balbuena. Disposition Clinical Impression: Chronic neck pain Disposition: HOME SELF-CARE Condition: Good Instructions (If sedation given, give patient instructions): Chronic Neck Pain (DC) Additional Instructions: Continue your previously prescribed pain medications. Keep your appointment with your surgeon is scheduled April 11. Return to the emergency room with any new or concerning symptoms. Is patient prescribed a controlled substance at d/c from ED?: No Referrals: Trav Muniz MD [Primary Care Provider] - 1-2 days Time of Disposition: 11:21
[2022-03-27 11:41] VITALS: BP 145/98; PULSE 102; RESP 16; TEMP 97.8
== END 2022-03-27 11:41 | disposition home or self-care (01) ==
LOC: EC 10:14
DX: G89.29 Other chronic pain (principal); M54.2 Cervicalgia; J45.909 Unspecified asthma, uncomplicated; I25.10 Atherosclerotic heart disease of native coronary artery without angina pectoris; E11.9 Type 2 diabetes mellitus without complications; K21.9 Gastro-esophageal reflux disease without esophagitis; I10 Essential (primary) hypertension; E78.5 Hyperlipidemia, unspecified; I25.2 Old myocardial infarction; Z86.711 Personal history of pulmonary embolism; Z79.4 Long term (current) use of insulin; Z79.01 Long term (current) use of anticoagulants; Z79.899 Other long term (current) drug therapy; Z88.1 Allergy status to other antibiotic agents; Z88.6 Allergy status to analgesic agent; Z88.8 Allergy status to other drugs, medicaments and biological substances; Z88.9 Allergy status to unspecified drugs, medicaments and biological substances
CPT/HCPCS: 99283; 96372; J1100; J2360; J1170

== ENCOUNTER 2022-05-01 17:45 | Emergency (ER) | payer OTHER ==
[2022-05-01 19:32] VITALS: TEMP 98
--- NOTE | 2022-05-01 19:38 | ED ---
General Adult HPI - General Chief complaint: Neck Pain/Injury Stated complaint: Back pain, weakness Time Seen by Provider: 05/01/22 19:10 Source: patient Mode of arrival: ambulatory Limitations: no limitations - History of Present Illness Initial comments: Dictation was produced using [employer] dictation software. please excuse any grammatical, word or spelling errors. Chief Complaint: 56-year-old male presents to emergency department for neck pain, saddle anesthesia, lower back pain, difficulties with bowel and bladder control. History of Present Illness: Patient is a 56-year-old male he is well-known to emergency department for multiple visitations for multiple complaints. He is here today because he woke up this morning with significant neck stiffness. He went to go order picker an object and started to have back pain. Since then he reports that he's been having dribbling of urine and stool mildly. He states that he feels a little dull to his saddle area. Nose complains obtained lean his fingers. 2 weeks ago patient had procedure performed by neurosurgery at [facility]. He states he had injections to his neck. Patient has known chronic history of chronic back pain. After he's had his symptoms he contacted neurosurgery team at [facility]. They asked if he could go to their emergency room however ambulance was not able to bring him all the way over there and stated he was brought to our emergency department. Patient requesting transfer to [facility]. The ROS documented in this emergency department record has been reviewed and confirmed by me. Those systems with pertinent positive or negative responses have been documented in the HPI. All other systems are other negative and/or noncontributory. PHYSICAL EXAM: General Impression: Alert and oriented x3, not in acute distress HEENT: Normocephalic atraumatic, extra-ocular movements intact, pupils equal and reactive to light bilaterally, mucous membranes moist. Cardiovascular: Heart regular rate and rhythm Chest: Able to complete full sentences, no retractions, no tachypnea Abdomen: abdomen soft, non-tender, non-distended, no organomegaly Musculoskeletal: Pulses present and equal in all extremities, no peripheral edema Motor: no focal deficits noted Neurological: CN II-XII grossly intact, reported paresthesias to the bilateral fingers, saddle area, poor rectal tone Skin: Intact with no visualized rashes Psych: Normal affect and mood ED course: 56-year-old male presents emergency department for neck and back anna n. He does have concerning physical exam symptoms associated with back and neck pain including reported loss of control of bowel or bladder function, saddle anesthesia. He does have poor rectal tone as upon arrival are within acceptable limits. he also has urinary retention with elevated bladder scan volume. Patient requesting transfer to [facility] where he gets his spinal care.. Case discussed with transfer team at [facility]. Spoke with Dr. Jiménez of the ER [facility] who is agreeable for ER to ER transfer. Patient has high-risk features associated with back pain. he would benefit from stat MRI evaluation for symptoms suspicious for cord compression. - Related Data Home Medications Medication Instructions Recorded Confirmed Diltiazem Cd [Cardizem CD] 300 mg PO DAILY 02/07/21 12/25/21 Insulin Lispro [humaLOG Kwikpen] See Protocol SQ AC-TID 06/16/21 12/25/21 Omeprazole Magnesium [PriLOSEC OTC] 20 mg PO DAILY 06/16/21 12/25/21 Metoprolol Tartrate [Lopressor] 50 mg PO BID 09/12/21 12/25/21 oxyCODONE-APAP 5-325MG [Percocet 1 tab PO Q6H PRN 09/12/21 12/25/21 5-325 mg] Apixaban [Eliquis] 5 mg PO BID 12/25/21 12/25/21 Gabapentin [Neurontin] 400 mg PO TID 12/25/21 12/25/21 Insulin Glargine,Hum.rec.anlog 30 unit SQ BID 12/25/21 12/25/21 [Basaglar Kwikpen U-100] Previous Rx's Medication Instructions Recorded Atorvastatin [Lipitor] 80 mg PO HS #30 tab 09/13/21 Allergies Allergy/AdvReac Type Severity Reaction Status Date / Time doxycycline Allergy Swelling Verified 05/01/22 18:26 ketorolac tromethamine Allergy Rash/Hives Verified 05/01/22 18:26 [From Toradol] morphine Allergy Rash/Hives Verified 05/01/22 18:26 metoclopramide HCl AdvReac Dystonic Verified 05/01/22 18:26 [From Reglan] Reaction prochlorperazine edisylate AdvReac Dystonic Verified 05/01/22 18:26 [From Compazine] Reaction prochlorperazine maleate AdvReac Dystonic Verified 05/01/22 18:26 [From Compazine] Reaction Review of Systems ROS Statement: Those systems with pertinent positive or pertinent negative responses have been documented in the HPI. ROS Other: All systems not noted in ROS Statement are negative. Past Medical History Past Medical History: Asthma, Coronary Artery Disease (CAD), Chest Pain / Angina, Diabetes Mellitus, GERD/Reflux, GI Bleed, Hyperlipidemia, Hypertension, Myocardial Infarction ([place]), Mitral Valve Prolapse (MVP), Pulmonary Embolus (PE), Sleep Apnea/CPAP/BIPAP Additional Past Medical History / Comment(s): Asthmatic bronchitis-chronic, IDDM type II, neuropathy bilateral feet, lower and upper GI bleeds, PUD, diverticulitis, colectomy d/t benign mass/intusseption, BPH, renal cysts, nephrolithiais, UTI with sepsis, chronic back pain 2ndary to herniated lumbar discs/sciatica, JARED does not use his Cpap, MVP, murmur Last Myocardial Infarction Date:: 2011 History of Any Multi-Drug Resistant Organisms: C-DIFF, MRSA Date of last positivie culture/infection: 2015 MDRO Source:: left axilla Past Surgical History: Appendectomy, Back Surgery, Cholecystectomy, Heart Catheterization, Hernia Repair Additional Past Surgical History / Comment(s): Lumbar decompression/fusion/laminectomy, spinal stimulator, T lift procedure, L inguinal hernia repair, multiple ESWLs/stents/double J caths, colonoscopy, 02/2020 colectomy, EGDs for food obstructions and dilations Past Anesthesia/Blood Transfusion Reactions: No Reported Reaction Past Psychological History: No Psychological Hx Reported Smoking Status: Never smoker Past Alcohol Use History: None Reported Past Drug Use History: None Reported - Past Family History Father Family Medical History: Chest Pain / Angina Additional Family Medical History / Comment(s): "lung problems" Mother Family Medical History: Cancer, Chest Pain / Angina, Congestive Heart Failure (CHF), Osteoarthritis (OA), Thyroid Disorder Additional Family Medical History / Comment(s): "female cancer" General Exam Limitations: no limitations Course Vital Signs 05/01/22 05/01/22 05/01/22 18:23 19:25 19:34 Temperature 97.8 F 98 F Pulse Rate 96 118 H 118 H Respiratory 20 20 20 Rate Blood Pressure 142/100 206/128 159/113 O2 Sat by Pulse 99 98 98 Oximetry Disposition Clinical Impression: Back pain Disposition: OTHER INSTITUTION NOT DEFINED Condition: Serious Referrals: Gonzálze Muñiz MD [Primary Care Provider] - 1-2 days Time of Disposition: 19:49 - Out of Hospital Transfer - Req. Specs Out of Hospital Transfer - Requested Specifics: Other Emergency Center ([facility]
[2022-05-01 20:57] VITALS: BP 150/110; PULSE 86; RESP 110
[2022-05-01] MEDS ORDERED: HYDROmorphone 1 MG/ML 1 ML SYRINGE IVP STA (21:03)
== END 2022-05-01 21:21 | disposition other institution (70) ==
LOC: EC 17:45
DX: M54.50 Low back pain, unspecified (principal); I10 Essential (primary) hypertension; J45.909 Unspecified asthma, uncomplicated; I25.10 Atherosclerotic heart disease of native coronary artery without angina pectoris; E11.9 Type 2 diabetes mellitus without complications; K21.9 Gastro-esophageal reflux disease without esophagitis; E78.5 Hyperlipidemia, unspecified; I25.2 Old myocardial infarction; G47.30 Sleep apnea, unspecified; Z79.84 Long term (current) use of oral hypoglycemic drugs; Z79.83 Long term (current) use of bisphosphonates; Z79.891 Long term (current) use of opiate analgesic; Z79.899 Other long term (current) drug therapy; Z88.1 Allergy status to other antibiotic agents; Z88.6 Allergy status to analgesic agent; Z88.8 Allergy status to other drugs, medicaments and biological substances; Z20.822 Contact with and (suspected) exposure to COVID-19
CPT/HCPCS: 87635; 99284; 96374; J1170

== ENCOUNTER 2022-05-23 13:47 | Observation (INO) | payer OTHER ==
[2022-05-23 14:11] LABS: Glucose,Whole Blood 317 mg/dL (70-110)
[2022-05-23] MEDS ORDERED: HYDROmorphone 1 MG/ML 1 ML SYRINGE IVP STA ×2 (14:25→17:06)
--- NOTE | 2022-05-23 14:26 | ED ---
Chest Pain HPI - General Chief Complaint: Chest Pain Stated Complaint: Back Pain Time Seen by Provider: 05/23/22 14:11 Source: patient, RN notes reviewed Mode of arrival: ambulatory Limitations: no limitations - History of Present Illness Initial Comments: Patient is a 56-year-old male mild to the emergency room who presents today with worsening of chronic back and neck pain not well controlled with his home medications.He is following with neurosurgery and plans for surgery next month. he states in the past he has required emergency surgery for spinal cord compression however he denies any of these symptoms at this time including any bowel or bladder incontinence, numbness tingling, weakness, or saddle paresthesia. He is complaining of some substernal chest pain with shortness of breath which she attributes to uncontrolled pain levels and anxiety. He has had previous cardiac workups in regards to chest pain and intermittent tachycardia with no underlying etiology found on last workup by Dr. Arora in December of this year; report from cardiac consult and progress note report from December admission reviewed. In addition to his tachycardia, back and neck medical history he has a past medical history significant for diabetes, asthma, CAD, GERD, hyperlipidemia, hypertension, [place], mitral valve prolapse, peripheral neuropathy, kidney stones, obstructive sleep apnea and BPH. - Related Data Home Medications Medication Instructions Recorded Confirmed Insulin Lispro [humaLOG Kwikpen] 10 unit SQ AC-TID 06/16/21 05/23/22 Omeprazole Magnesium [PriLOSEC OTC] 20 mg PO HS 06/16/21 05/23/22 oxyCODONE-APAP 5-325MG [Percocet 1 tab PO Q6H 09/12/21 05/23/22 5-325 mg] Gabapentin [Neurontin] 400 mg PO TID 12/25/21 05/23/22 Aspirin EC [Ecotrin Low Dose] 81 mg PO DAILY 05/23/22 05/23/22 Atorvastatin Calcium [Lipitor] 40 mg PO HS 05/23/22 05/23/22 Baclofen 10 mg PO TID 05/23/22 05/23/22 Empagliflozin [Jardiance] 25 mg PO DAILY 05/23/22 05/23/22 Metoprolol Tartrate [Lopressor] 50 mg PO BID 05/23/22 05/23/22 Omeprazole Magnesium [PriLOSEC OTC] 20 mg PO DAILY PRN 05/23/22 05/23/22 lisinopriL [Zestril] 5 mg PO BID 05/23/22 05/23/22 Allergies Allergy/AdvReac Type Severity Reaction Status Date / Time doxycycline Allergy Swelling Verified 05/23/22 19:24 ketorolac tromethamine Allergy Rash/Hives Verified 05/23/22 19:24 [From Toradol] morphine Allergy Rash/Hives Verified 05/23/22 19:24 metoclopramide HCl AdvReac Dystonic Verified 05/23/22 19:24 [From Reglan] Reaction prochlorperazine edisylate AdvReac Dystonic Verified 05/23/22 19:24 [From Compazine] Reaction prochlorperazine maleate AdvReac Dystonic Verified 05/23/22 19:24 [From Compazine] Reaction Review of Systems ROS Statement: Those systems with pertinent positive or pertinent negative responses have been documented in the HPI. ROS Other: All systems not noted in ROS Statement are negative. EKG Findings - EKG Comments: EKG Findings:: EKG completed at 1414 interpreted me shows atrial fibrillation with rapid ventricular response, ventricular heart rate 137 bpm, MT interval * ms, QRS duration 110 ms, QT/QTC 354/434 ms, PRT axes *, 77, 57 Past Medical History Past Medical History: Asthma, Coronary Artery Disease (CAD), Chest Pain / Angina, Diabetes Mellitus, GERD/Reflux, GI Bleed, Hyperlipidemia, Hypertension, Myocardial Infarction ([place]), Mitral Valve Prolapse (MVP), Pulmonary Embolus (PE), Sleep Apnea/CPAP/BIPAP Additional Past Medical History / Comment(s): Asthmatic bronchitis-chronic, IDDM type II, neuropathy bilateral feet, lower and upper GI bleeds, PUD, diverticulitis, colectomy d/t benign mass/intusseption, BPH, renal cysts, nephrolithiais, UTI with sepsis, chronic back pain 2ndary to herniated lumbar discs/sciatica, JARED does not use his Cpap, MVP, murmur Last Myocardial Infarction Date:: 2011 History of Any Multi-Drug Resistant Organisms: C-DIFF, MRSA Date of last positivie culture/infection: 2015 MDRO Source:: left axilla Past Surgical History: Appendectomy, Back Surgery, Cholecystectomy, Heart Catheterization, Hernia Repair Additional Past Surgical History / Comment(s): Lumbar decompression/fusion/laminectomy, spinal stimulator, T lift procedure, L inguinal hernia repair, multiple ESWLs/stents/double J caths, colonoscopy, 02/2020 colectomy, EGDs for food obstructions and dilations Past Anesthesia/Blood Transfusion Reactions: No Reported Reaction Past Psychological History: No Psychological Hx Reported Smoking Status: Never smoker Past Alcohol Use History: None Reported Past Drug Use History: None Reported - Past Family History Father Family Medical History: Chest Pain / Angina Additional Family Medical History / Comment(s): "lung problems" Mother Family Medical History: Cancer, Chest Pain / Angina, Congestive Heart Failure (CHF), Osteoarthritis (OA), Thyroid Disorder Additional Family Medical History / Comment(s): "female cancer" General Exam Limitations: no limitations General appearance: alert, in no apparent distress Head exam: Present: atraumatic, normocephalic, normal inspection Eye exam: Present: normal appearance, PERRL, EOMI. Absent: scleral icterus, conjunctival injection, periorbital swelling ENT exam: Present: normal exam, mucous membranes moist Neck exam: Present: normal inspection. Absent: full ROM (limtied by pain) Respiratory exam: Present: normal lung sounds bilaterally. Absent: respiratory distress, wheezes, rales, rhonchi, stridor Cardiovascular Exam: Present: normal rhythm, tachycardia, normal heart sounds. Absent: systolic murmur, diastolic murmur, rubs, gallop, clicks GI/Abdominal exam: Present: soft, normal bowel sounds. Absent: distended, tenderness, guarding, rebound, rigid Rectal exam: Present: deferred Extremities exam: Present: full ROM. Absent: pedal edema, joint swelling Back exam: Present: tenderness. Absent: full ROM (limited by pain and previous surgical intervention) Neurological exam: Present: alert, oriented X3, CN II-XII intact Psychiatric exam: Present: anxious Skin exam: Present: rash (Scattered maculopapular chest) Course Vital Signs 05/23/22 05/23/22 05/23/22 14:00 14:33 20:37 Temperature 97.7 F Pulse Rate 130 H 129 H 109 H Pulse Rate [ Bilateral] Respiratory 20 24 18 Rate Blood Pressure 185/99 152/111 171/104 O2 Sat by Pulse 97 95 97 Oximetry 11/14/22 11/14/22 20:47 20:55 Temperature Pulse Rate Pulse Rate [ 110 H Bilateral] Respiratory Rate Blood Pressure 152/100 O2 Sat by Pulse Oximetry Chest Pain MDM - MDM 56-year-old male presenting with acute on chronic neck and back pain causing increased anxiety levels resulting in tachycardia and some shortness of breath. Patient of substernal chest pain in triage related to anxiety. Given risk factors will obtain EKG, chest x-ray along with CBC, CMP, troponin, magnesium and coags. Will give Dilaudid for pain. Blood sugar also elevated will add acetone and give 10 units of insulin. Will monitor response. Patient with paroxysmal tachycardia and paroxysmal A. fib in the past requiring IV Cardizem at times. Will defer Cardizem at this time. Cardiac workup completed in December 2021. Previous cardiac catheterization report reviewed showing normal coronary arteries. EKG shows atrial fibrillation with rapid ventricular rate at 137 bpm. Still continued pain after 1 mg of Dilaudid will give dose of Norflex and monitor response. Chest x-ray image read by myself showing no pulmonary infiltrates or atelectasis. Slight improvement in pain after Norflex and Dilaudid will give additional dose of Dilaudid. Mild tachycardia persists but trending downward. Chest pain has transitioned to chest tightness more consistent with his anxiety. He continues to decline further cardiac workup. CBC normal, CMP shows low bicarb normal anion gap, sodium slightly low at 136 potassium normal kidney function normal. Troponin negative, acetone and d-dimer negative. Coags stable. Patient with continued back and neck pain along with persistent tachycardia. Not stable for discharge home. Will plan for admission for intractable back and neck pain along with tachycardia. Will order repeat enzymes. Dr. Gomez patient's primary care provider contacted regarding presentation and findings and recommendation of observation admission. Admission accepted. Case discussed with Dr. Leiva. Disposition Clinical Impression: Intractable back pain, Tachycardia, Neck pain Disposition: ADMITTED IP TO THIS HOSP Condition: Good Is patient prescribed a controlled substance at d/c from ED?: No Time of Disposition: 18:50
[2022-05-23 14:57] LABS: Basophils # (A) 0.1 k/uL (0-0.2); Basophils % (A) 1 %; Eosinophils # (A) 0.2 k/uL (0-0.7); Eosinophils % (A) 2 %; HCT 44.9 % (39.0-53.0); HGB 15.7 gm/dL (13.0-17.5); Lymphocytes # (A) 1.6 k/uL (1.0-4.8); Lymphocytes % (A) 21 %; MCH 29.8 pg (25.0-35.0); MCHC 35.1 g/dL (31.0-37.0); MCV 84.9 fL (80.0-100.0); Mean Platelet Volume 7.3; Monocytes # (A) 0.3 k/uL (0-1.0); Monocytes % (A) 4 %; Neutrophils # (A) 5.2 k/uL (1.3-7.7); Neutrophils % (A) 71 %; Platelet Count 253 k/uL (150-450); RBC 5.28 m/uL (4.30-5.90); WBC 7.4 k/uL (3.8-10.6)
[2022-05-23 15:09] LABS: ALT 58 U/L (4-49); AST 30 U/L (17-59); African American GFR (CKD) >90 (>60 ml/min/1.73 sqM); Albumin 4.8 g/dL (3.5-5.0); Alkaline Phosphatase 164 U/L (38-126); Anion Gap 14 mmol/L; Blood Urea Nitrogen 13 mg/dL (9-20); Carbon Dioxide 17 mmol/L (22-30); Chloride 105 mmol/L (98-107); Glucose 348 mg/dL (74-99); Non-African American GFR(CKD) >90 (>60 ml/min/1.73 sqM); Potassium 4.1 mmol/L (3.5-5.1); Sodium 136 mmol/L (137-145); Total Bilirubin 0.5 mg/dL (0.2-1.3); Total Protein 7.4 g/dL (6.3-8.2)
[2022-05-23] MEDS ORDERED: INSULIN ASPART (NovoLOG) 100 UNIT/ML VIAL SQ ONE (15:10)
--- NOTE | 2022-05-23 15:20 | XR ---
EXAMINATION TYPE: XR chest 2V DATE OF EXAM: 05/23/2022 COMPARISON: 12/25/2021 TECHNIQUE: PA and lateral views submitted. HISTORY: Chest pain FINDINGS: The lungs are clear and there is no pneumothorax, pleural effusion, or focal pneumonia. Previous chavarria rgery involving the cervical spine. Spinal lead catheters seen overlying the thoracic region. Hypertr ophic degenerative changes seen. Bilateral pleural-based thickening. Heart size normal with no overt failure. IMPRESSION: 1. No acute process. Nonspecific pleural thickening is stable and appears chronic.
[2022-05-23 15:22] LABS: INR 0.8 (<1.2); Partial Thromboplastin Time 20.6 sec (22.0-30.0); Prothrombin Time 9.5 sec (9.0-12.0)
[2022-05-23] MEDS ORDERED: ORPHENADRINE 30 MG/ML 2 ML VIAL IVP STA (16:26)
[2022-05-23] MEDS ORDERED: NALOXONE 0.4 MG/ML 1 ML VIAL IV PRN (18:49)
[2022-05-23] MEDS ORDERED: HYDROcodone/APAP 5-325MG 1 EACH TAB PO PRN (18:49)
[2022-05-23] MEDS ORDERED: ACETAMINOPHEN TAB 325 MG TAB PO PRN (18:49)
[2022-05-23] MEDS ORDERED: DEXTROSE 50% SYRINGE 50 ML IVP PRN ×2 (18:51)
[2022-05-23 19:38] LABS: Glucose,Whole Blood 236 mg/dL (70-110)
[2022-05-23] MEDS: INSULIN ASPART (NovoLOG) 100 UNIT/ML VIAL SQ SCH (20:36)
[2022-05-23] MEDS: HYDROmorphone 1 MG/ML 1 ML SYRINGE IVP PRN (20:37)
[2022-05-23] MEDS ORDERED: hydrALAZINE HCL 20 MG/ML 1 ML VIAL IVP PRN (20:52)
[2022-05-23] MEDS ORDERED: PANTOPRAZOLE 40 MG TABLET PO PRN (20:53)
[2022-05-23] MEDS ORDERED: PANTOPRAZOLE 40 MG TABLET PO SCH (21:00)
[2022-05-23] MEDS ORDERED: METOPROLOL TARTRATE 50 MG TAB PO SCH (21:00)
[2022-05-23] MEDS ORDERED: ATORVASTATIN 40 MG TAB PO SCH (21:00)
[2022-05-23] MEDS: lisinopriL 5 MG TAB PO SCH (21:30)
[2022-05-23] MEDS: BACLOFEN 10 MG TAB PO SCH (21:31)
[2022-05-23] MEDS: GABAPENTIN 400 MG CAP PO SCH (21:31)
[2022-05-23] MEDS: oxyCODONE-APAP 5-325MG 1 EACH TAB PO SCH (22:32)
[2022-05-23] MEDS: METOPROLOL TARTRATE 50 MG TAB PO SCH (23:48)
[2022-05-24] MEDS: HYDROmorphone 1 MG/ML 1 ML SYRINGE IVP PRN ×6 (00:27→18:01)
[2022-05-24] MEDS: oxyCODONE-APAP 5-325MG 1 EACH TAB PO SCH ×3 (03:27→16:02)
[2022-05-24 06:17] LABS: Glucose,Whole Blood 312 mg/dL (70-110)
[2022-05-24] MEDS: INSULIN ASPART (NovoLOG) 100 UNIT/ML VIAL SQ SCH ×3 (06:41→17:39)
[2022-05-24] MEDS ORDERED: ASPIRIN 81 MG PO SCH (09:00)
[2022-05-24] MEDS: BACLOFEN 10 MG TAB PO SCH ×2 (09:08→16:02)
[2022-05-24] MEDS: GABAPENTIN 400 MG CAP PO SCH ×2 (09:08→16:02)
[2022-05-24] MEDS: METOPROLOL TARTRATE 50 MG TAB PO SCH (09:08)
[2022-05-24] MEDS: lisinopriL 5 MG TAB PO SCH (09:08)
--- NOTE | 2022-05-24 09:30 | P.CRDCN ---
History of Present Illness Consult date: 05/24/22 Requesting physician: González Muñiz Reason for Consult (text): tachycardia, hypertension Chief complaint: neck and back pain History of present illness: This is a pleasant 56-year-old gentleman who follows with Dr. Arora. He has a history of hypertension, hyperlipidemia, uncontrolled diabetes, prior cardiac catheterization in October 2020 that showed normal coronaries and history of tachycardia. He also has a history of DVT in the past and was previously on Eliquis which has been discontinued.. He presented to the emergency department with complaints of worsening back and neck pain. He's been followed regularly for the neck discomfort and has known ruptured cervical disc and is scheduled to undergo the procedure soon. He's been having worsening pain in the upper back and shoulders. We were asked to see the patient in consultation for tachycardia and hypertension. EKG and admission showed sinus tachycardia and he's been sinus mechanism on the monitor. Carotids have been negative 3. Pressure was initially elevated however is well controlled this morning. Currently on asp irin 81 mg daily, atorvastatin 40 mg by mouth daily at bedtime, hydralazine as needed, lisinopril 5 mg by mouth twice a day and metoprolol tartrate 100 mg by mouth twice a day. Chest x-ray on admission showed no acute process, nonspecific pleural thickening that is stable and appears chronic. Upon examination the patient is resting comfortably in bed. Denies any chest discomfort. Denies any dizziness or lightheadedness. He does feel his heart rate picked up at times, unchanged from previous. He is worn event monitors in the past that have shown sinus mechanism with sinus tachycardia and no evidence of atrial fibrillation. Past Medical History Past Medical History: Asthma, Coronary Artery Disease (CAD), Chest Pain / Angina, Diabetes Mellitus, GERD/Reflux, GI Bleed, Hyperlipidemia, Hypertension, Myocardial Infarction ([place]), Mitral Valve Prolapse (MVP), Pulmonary Embolus (PE), Sleep Apnea/CPAP/BIPAP Additional Past Medical History / Comment(s): Asthmatic bronchitis-chronic, IDDM type II, neuropathy bilateral feet, lower and upper GI bleeds, PUD, diverticulitis, colectomy d/t benign mass/intusseption, BPH, renal cysts, nephrolithiais, UTI with sepsis, chronic back pain 2ndary to herniated lumbar discs/sciatica, JARED does not use his Cpap, MVP, murmur Last Myocardial Infarction Date:: 2011 History of Any Multi-Drug Resistant Organisms: C-DIFF, MRSA Date of last positivie culture/infection: 2015 MDRO Source:: left axilla Past Surgical History: Appendectomy, Back Surgery, Cholecystectomy, Heart Catheterization, Hernia Repair Additional Past Surgical History / Comment(s): Lumbar decompression/fusion/laminectomy, spinal stimulator, T lift procedure, L inguinal hernia repair, multiple ESWLs/stents/double J caths, colonoscopy, 02/2020 colectomy, EGDs for food obstructions and dilations Past Anesthesia/Blood Transfusion Reactions: No Reported Reaction Past Psychological History: No Psychological Hx Reported Additional Psychological History / Comment(s): Pt resides with his mother for whom his is caregiver. Pt is indpendent. He has a cpap but does not use it. He has a glucometer. Smoking Status: Never smoker Past Alcohol Use History: None Reported Past Drug Use History: None Reported - Past Family History Father Family Medical History: Chest Pain / Angina Additional Family Medical History / Comment(s): "lung problems" Mother Family Medical History: Cancer, Chest Pain / Angina, Congestive Heart Failure (CHF), Osteoarthritis (OA), Thyroid Disorder Additional Family Medical History / Comment(s): "female cancer" Medications and Allergies Home Medications Medication Instructions Recorded Confirmed Type Insulin Lispro [humaLOG Kwikpen] 10 unit SQ AC-TID 06/16/21 05/23/22 History Omeprazole Magnesium [PriLOSEC OTC] 20 mg PO HS 06/16/21 05/23/22 History oxyCODONE-APAP 5-325MG [Percocet 1 tab PO Q6H 09/12/21 05/23/22 History 5-325 mg] Gabapentin [Neurontin] 400 mg PO TID 12/25/21 05/23/22 History Aspirin EC [Ecotrin Low Dose] 81 mg PO DAILY 05/23/22 05/23/22 History Atorvastatin Calcium [Lipitor] 40 mg PO HS 05/23/22 05/23/22 History Baclofen 10 mg PO TID 05/23/22 05/23/22 History Empagliflozin [Jardiance] 25 mg PO DAILY 05/23/22 05/23/22 History Metoprolol Tartrate [Lopressor] 50 mg PO BID 05/23/22 05/23/22 History Omeprazole Magnesium [PriLOSEC OTC] 20 mg PO DAILY PRN 05/23/22 05/23/22 History lisinopriL [Zestril] 5 mg PO BID 05/23/22 05/23/22 History Allergies Allergy/AdvReac Type Severity Reaction Status Date / Time doxycycline Allergy Swelling Verified 05/23/22 19:24 ketorolac tromethamine Allergy Rash/Hives Verified 05/23/22 19:24 [From Toradol] morphine Allergy Rash/Hives Verified 05/23/22 19:24 metoclopramide HCl AdvReac Dystonic Verified 05/23/22 19:24 [From Reglan] Reaction prochlorperazine edisylate AdvReac Dystonic Verified 05/23/22 19:24 [From Compazine] Reaction prochlorperazine maleate AdvReac Dystonic Verified 05/23/22 19:24 [From Compazine] Reaction Physical Exam Vitals: Vital Signs Temp Pulse Pulse Pulse Resp BP BP 05/24/22 08:50 05/24/22 07:00 98.5 F 86 20 126/83 05/24/22 02:38 98.0 F 76 19 130/80 05/23/22 22:34 138/89 05/23/22 21:33 98.1 F 109 H 20 151/103 05/23/22 20:55 152/100 05/23/22 20:47 110 H 05/23/22 20:37 109 H 18 171/104 05/23/22 14:33 129 H 24 152/111 05/23/22 14:00 97.7 F 130 H 20 185/99 Pulse Ox FiO2 05/24/22 08:50 98 21 05/24/22 07:00 98 05/24/22 02:38 94 L 05/23/22 22:34 05/23/22 21:33 93 L 05/23/22 20:55 05/23/22 20:47 05/23/22 20:37 97 05/23/22 14:33 95 05/23/22 14:00 97 Intake and Output 05/23/22 05/24/22 05/24/22 22:59 06:59 14:59 Other: # Voids 1 1 Weight 121.563 kg PHYSICAL EXAMINATION: This is a 56-year-old gentleman in no apparent distress at the time of my examination. HEENT: Head is atraumatic, normocephalic. Pupils are equal, round. Sclerae anicteric. Conjunctivae are clear. Mucous membranes of the mouth are moist. Neck is supple. There is no elevated jugular venous pressure. No carotid bruit is heard. CHEST EXAMINATION: Clear to auscultation bilaterally. No wheezes rales or rhonchi. Respirations even and nonlabored. HEART EXAMINATION: Heart regular, positive S1 and S2. No S3. No S4. No clicks, rubs or murmurs. ABDOMEN: Soft, nontender. Bowel sounds are heard. No organomegaly noted. EXTREMITIES: 2+ peripheral pulses with no evidence of peripheral edema and no calf tenderness noted. NEUROLOGIC EXAMINATION: Patient is awake, alert and oriented x3. Results 05/23/22 14:32 05/23/22 14:32 Cardiac Enzymes 05/23/22 05/23/22 05/23/22 Range/Units 14:32 14:32 20:58 AST 30 (17-59) U/L Troponin I <0.012 <0.012 (0.000-0.034) ng/mL 05/24/22 Range/Units 00:47 AST (17-59) U/L Troponin I <0.012 (0.000-0.034) ng/mL Coagulation 05/23/22 Range/Units 14:32 PT 9.5 (9.0-12.0) sec APTT 20.6 L (22.0-30.0) sec CBC 05/23/22 Range/Units 14:32 WBC 7.4 (3.8-10.6) k/uL RBC 5.28 (4.30-5.90) m/uL Hgb 15.7 (13.0-17.5) gm/dL Hct 44.9 (39.0-53.0) % Plt Count 253 (150-450) k/uL Comprehensive Metabolic Panel 05/23/22 Range/Units 14:32 Sodium 136 L (137-145) mmol/L Potassium 4.1 (3.5-5.1) mmol/L Chloride 105 (98-107) mmol/L Carbon Dioxide 17 L (22-30) mmol/L BUN 13 (9-20) mg/dL Creatinine 0.37 L (0.66-1.25) mg/dL Glucose 348 H (74-99) mg/dL Calcium 10.0 (8.4-10.2) mg/dL AST 30 (17-59) U/L ALT 58 H (4-49) U/L Alkaline Phosphatase 164 H (38-126) U/L Total Protein 7.4 (6.3-8.2) g/dL Albumin 4.8 (3.5-5.0) g/dL Current Medications Generic Name Dose Route Start Last Admin Trade Name Freq PRN Reason Stop Dose Admin Acetaminophen 650 mg 05/23/22 18:49 Acetaminophen Tab 325 Mg Tab PO Q6HR PRN Mild Pain or Fever > 100.5 Hydrocodone Bitart/Acetaminophen 1 each 05/23/22 18:49 Hydrocodone/Apap 5-325mg 1 Each Tab PO Q4HR PRN Moderate Pain (Scale 4 to 6) Aspirin 81 mg 05/24/22 09:00 05/24/22 09:08 Aspirin 81 Mg PO 81 mg DAILY JOEY Administration Atorvastatin Calcium 40 mg 05/23/22 21:00 05/23/22 21:31 Atorvastatin 40 Mg Tab PO 40 mg HS JOEY Administration Baclofen 10 mg 05/23/22 22:00 05/24/22 09:08 Baclofen 10 Mg Tab PO 10 mg TID JOEY Administration Dextrose/Water 25 ml 05/23/22 18:51 Dextrose 50% Syringe 50 Ml IVP PER PROTOCOL PRN Hypoglycemia Protocol Dextrose/Water 50 ml 05/23/22 18:51 Dextrose 50% Syringe 50 Ml IVP PER PROTOCOL PRN Hypoglycemia Protocol Gabapentin 400 mg 05/23/22 22:00 05/24/22 09:08 Gabapentin 400 Mg Cap PO 400 mg TID JOEY Administration Hydralazine HCl 10 mg 05/23/22 20:52 Hydralazine Hcl 20 Mg/Ml 1 Ml Vial IVP Q6HR PRN Blood Pressure - High Hydromorphone HCl 1 mg 05/23/22 18:49 05/24/22 09:06 Hydromorphone 1 Mg/Ml 1 Ml Syringe IVP 1 mg Q3HR PRN Administration Severe Pain (Scale 7 to 10) Insulin Aspart 0 unit 05/23/22 21:00 05/24/22 06:41 Insulin Aspart (Novolog) 100 Unit/Ml Vial SQ 12 unit ACHS JOEY Administration Protocol Lisinopril 5 mg 05/23/22 21:00 05/24/22 09:08 Lisinopril 5 Mg Tab PO 5 mg BID JOEY Administration Metoprolol Tartrate 100 mg 05/23/22 23:45 05/24/22 09:08 Metoprolol Tartrate 50 Mg Tab PO 100 mg BID JOEY Administration Naloxone HCl 0.2 mg 05/23/22 18:49 Naloxone 0.4 Mg/Ml 1 Ml Vial IV Q2M PRN Opioid Reversal Oxycodone/Acetaminophen 1 each 05/23/22 21:45 05/24/22 03:27 Oxycodone-Apap 5-325mg 1 Each Tab PO 1 each Q6H JOEY Administration Pantoprazole Sodium 40 mg 05/23/22 20:53 Pantoprazole 40 Mg Tablet PO DAILY PRN GI Upset Pantoprazole Sodium 40 mg 05/23/22 21:00 05/23/22 21:31 Pantoprazole 40 Mg Tablet PO 40 mg HS JOEY Administration Intake and Output 05/23/22 05/24/22 05/24/22 22:59 06:59 14:59 Other: # Voids 1 1 Weight 121.563 kg 05/23/22 14:32 05/23/22 14:32 EKG Interpretations (text) Sinus tachycardia Assessment and Plan Assessment: #1 sinus tachycardia, no evidence of malignant arrhythmia #2 neck and back pain related to cervical spine ruptured disks #3 hypertension #4 hyperlipidemia #5 uncontrolled diabetes with a hemoglobin A1c of 11.6 #6 cardiac catheterization in October 2020 showing normal coronary arteries. Plan: From cardiology's perspective medications were reviewed and we will continue the same. Blood pressure and heart rate appear to be well controlled at this time. There is no evidence of malignant arrhythmia. No need for further cardiac workup at this time as an inpatient. He will follow-up with Dr. Sawant as an outpatient. HERB COUNSELOR note has been reviewed, I agree with a documented findings and plan of care. Patient was seen and examined.
[2022-05-24 12:17] LABS: Glucose,Whole Blood 273 mg/dL (70-110)
[2022-05-24 15:15] VITALS: RESP 16
[2022-05-24 16:32] LABS: Glucose,Whole Blood 340 mg/dL (70-110)
[2022-05-24 16:45] VITALS: BP 109/73; PULSE 81; TEMP 98.3
--- NOTE | 2022-05-25 08:30 | HP ---
HISTORY AND PHYSICAL HISTORY OF PRESENT ILLNESS: A 56-year-old white male, who checkup for his back, and in the ER, he was found to have atrial fibrillation with RVR. He was admitted to the hospital. Cardiology saw him and cleared him for discharge. He has severe pain and anxiety. HOME MEDICATIONS: 1. Cardizem 300 daily. 2. t.i.d. 3. Prilosec 20 daily. 4. Lopressor 50 b.i.d. 5. Percocet 5/325 every 6 hours. 6. Eliquis 5 b.i.d. 7. Neurontin 400 t.i.d. He [place] some kind of pain clinic [place]. He is also on Basaglar 3 units subcu b.i.d. ALLERGIES: See list. REVIEW OF SYSTEMS: A 14-point review of systems otherwise negative except for pain, numbness down his right leg and inability to move his right leg, severe muscle spasm, back pain. EKG; atrial fibrillation, RVR. PAST MEDICAL HISTORY: Asthma, coronary artery disease, angina, diabetes mellitus, GERD, GI bleed, dyslipidemia, hypertension, myocardial infarction, mitral valve prolapse, pulmonary embolism, sleep apnea. FAMILY HISTORY: Father, chest pain and angina. Mother; , chest pain, angina, osteoarthritis. PHYSICAL EXAMINATION: PSYCH: Fair mood and affect, anxious. CARDIOVASCULAR: S1, S2. LUNGS: Clear. MUSCULOSKELETAL: Straight leg raise test 20 degrees, right leg. Limited motion of his right leg. HEMATOLOGY: Negative for Homans. PSYCH: Fair mood and affect. OPHTHALMOLOGICAL: Pupils equal, round, and reactive. VITAL SIGNS: Temperature 97.7, pulse is 120s to 130s, respiratory rate 20 to 24. Blood pressure on admission, currently is better. ASSESSMENT: 1. Lumbar disk herniation, acute. 2. History of atrial fibrillation, rapid ventricular response. 3. History of sleep apnea. 4. New onset lumbar disk disease with herniated disk in the right . 5. Lumbar spasm. Prognosis guarded. Cleared by Cardiology for discharge. will follow up as an outpatient. MMODL / IJN: [id number] /
== END 2022-05-24 20:07 | disposition home or self-care (01) ==
LOC: EC 13:47 → 6NMEDSUR 18:44
PROVIDERS: ADMIT Family Medicine; ATTEND Family Medicine
DX: M51.26 Other intervertebral disc displacement, lumbar region (principal); I48.0 Paroxysmal atrial fibrillation; E11.42 Type 2 diabetes mellitus with diabetic polyneuropathy; J45.909 Unspecified asthma, uncomplicated; I25.10 Atherosclerotic heart disease of native coronary artery without angina pectoris; K21.9 Gastro-esophageal reflux disease without esophagitis; E78.5 Hyperlipidemia, unspecified; I10 Essential (primary) hypertension; I25.2 Old myocardial infarction; G47.33 Obstructive sleep apnea (adult) (pediatric); N40.0 Benign prostatic hyperplasia without lower urinary tract symptoms; F41.9 Anxiety disorder, unspecified; Z86.711 Personal history of pulmonary embolism; Z86.718 Personal history of other venous thrombosis and embolism; Z87.442 Personal history of urinary calculi; Z79.01 Long term (current) use of anticoagulants; Z79.4 Long term (current) use of insulin; Z79.82 Long term (current) use of aspirin; Z79.84 Long term (current) use of oral hypoglycemic drugs; Z79.899 Other long term (current) drug therapy; Z88.1 Allergy status to other antibiotic agents; Z88.5 Allergy status to narcotic agent
CPT/HCPCS: 96372 ×2; 96376 ×2; 96374; 96375; 99285; 36415; 94760; 93005; 85379; 83880; 80053; 84443; 82009; 83735; 84484 ×2; 85025; 85610; 85730; 83036; 71046; G0378 ×3; J2360; J1170 ×2

== ENCOUNTER 2022-06-18 10:27 | Emergency (ER) | payer OTHER ==
[2022-06-18 10:36] VITALS: BP 161/100; PULSE 80; RESP 18; TEMP 97.9
[2022-06-18] MEDS ORDERED: DEXAMETHASONE SOD PHOSPHATE 10 MG/ML 1 ML VIAL IM STA (11:23)
[2022-06-18] MEDS ORDERED: ORPHENADRINE 30 MG/ML 2 ML VIAL IM STA (11:23)
--- NOTE | 2022-06-18 11:52 | CT ---
EXAMINATION TYPE: CT cervical spine wo con DATE OF EXAM: 06/18/2022 COMPARISON: 05/20/2021 HISTORY: Right sided shoulder and neck pain after injury. CT DLP: 708.[address] of the cervical spine was performed with bone and soft tissue window settings submitted . Coronal and sagittal reconstruction is obtained. There is normal alignment and prevertebral soft tissues. I do not see evidence for fracture or sublu xation. The lung apices are clear C2-3: Normal disc space. Ventral spondylosis. No central stenosis. C3-4: No significant degenerative narrowing. Ventral spondylosis. No disc herniation or disc bulge. M ild left foraminal encroachment. C4-5: Disc prosthesis with streak artifact. Limited evaluation of the spinal canal. C5-6:Disc prosthesis with streak artifact. Limited evaluation of the spinal canal. C6-7: Mild degenerative narrowing. Mild posterior disc bulge. No evidence for herniation or central s tenosis. Mild bilateral neural foraminal encroachment. C7-T1: Within normal limits IMPRESSION: 1. Mild bilateral neural foraminal encroachment at C6-7 and left-sided neural foraminal encroachment at C3-4. Mild degenerative disc disease.
--- NOTE | 2022-06-18 12:26 | ED ---
General Adult HPI - General Chief complaint: Extremity Injury, Upper Stated complaint: neck & shoulder pain Time Seen by Provider: 06/18/22 11:03 Source: patient Mode of arrival: ambulatory Limitations: no limitations - History of Present Illness Initial comments: Patient is a 56-year-old male presenting with chief complaint of right-sided neck and arm pain. Patient states that yesterday he was helping his mother out of the shower when she slipped and he had to catch her. Patient does have a history of chronic pain, is currently scheduled for fusion in July. He took his Percocet at home which did not help the pain. States the pain is radiating down from the base of the neck to the end of the arm, admits to pain with range of motion. He is also admitting to sharp pain in the shoulder. No chest pain or difficulty breathing. No palpitations, fever, chills, weakness, abdominal pain, nausea, vomiting, radiation of pain across the back or chest. - Related Data Home Medications Medication Instructions Recorded Confirmed Insulin Lispro [humaLOG Kwikpen] 10 unit SQ AC-TID 06/16/21 05/23/22 Omeprazole Magnesium [PriLOSEC OTC] 20 mg PO HS 06/16/21 05/23/22 oxyCODONE-APAP 5-325MG [Percocet 1 tab PO Q6H 09/12/21 05/23/22 5-325 mg] Gabapentin [Neurontin] 400 mg PO TID 12/25/21 05/23/22 Aspirin EC [Ecotrin Low Dose] 81 mg PO DAILY 05/23/22 05/23/22 Atorvastatin Calcium [Lipitor] 40 mg PO HS 05/23/22 05/23/22 Baclofen 10 mg PO TID 05/23/22 05/23/22 Empagliflozin [Jardiance] 25 mg PO DAILY 05/23/22 05/23/22 Metoprolol Tartrate [Lopressor] 50 mg PO BID 05/23/22 05/23/22 Omeprazole Magnesium [PriLOSEC OTC] 20 mg PO DAILY PRN 05/23/22 05/23/22 lisinopriL [Zestril] 5 mg PO BID 05/23/22 05/23/22 Allergies Allergy/AdvReac Type Severity Reaction Status Date / Time doxycycline Allergy Swelling Verified 06/18/22 10:36 ketorolac tromethamine Allergy Rash/Hives Verified 06/18/22 10:36 [From Toradol] morphine Allergy Rash/Hives Verified 06/18/22 10:36 metoclopramide HCl AdvReac Dystonic Verified 06/18/22 10:36 [From Reglan] Reaction prochlorperazine edisylate AdvReac Dystonic Verified 06/18/22 10:36 [From Compazine] Reaction prochlorperazine maleate AdvReac Dystonic Verified 06/18/22 10:36 [From Compazine] Reaction Review of Systems ROS Statement: Those systems with pertinent positive or pertinent negative responses have been documented in the HPI. ROS Other: All systems not noted in ROS Statement are negative. Past Medical History Past Medical History: Asthma, Coronary Artery Disease (CAD), Chest Pain / Angina, Diabetes Mellitus, GERD/Reflux, GI Bleed, Hyperlipidemia, Hypertension, Myocardial Infarction ([place]), Mitral Valve Prolapse (MVP), Pulmonary Embolus ([place]), Sleep Apnea/CPAP/BIPAP Additional Past Medical History / Comment(s): Asthmatic bronchitis-chronic, IDDM type II, neuropathy bilateral feet, lower and upper GI bleeds, PUD, diverticulitis, colectomy d/t benign mass/intusseption, BPH, renal cysts, nephrolithiais, UTI with sepsis, chronic back pain 2ndary to herniated lumbar discs/sciatica, JARED does not use his Cpap, MVP, murmur Last Myocardial Infarction Date:: 2011 History of Any Multi-Drug Resistant Organisms: C-DIFF, MRSA Date of last positivie culture/infection: 2015 MDRO Source:: left axilla Past Surgical History: Appendectomy, Back Surgery, Cholecystectomy, Heart Catheterization, Hernia Repair Additional Past Surgical History / Comment(s): Lumbar decompression/fusion/laminectomy, spinal stimulator, T lift procedure, L inguinal hernia repair, multiple ESWLs/stents/double J caths, colonoscopy, 02/2020 colectomy, EGDs for food obstructions and dilations Past Anesthesia/Blood Transfusion Reactions: No Reported Reaction Past Psychological History: No Psychological Hx Reported Smoking Status: Never smoker Past Alcohol Use History: None Reported Past Drug Use History: None Reported - Past Family History Father Family Medical History: Chest Pain / Angina Additional Family Medical History / Comment(s): "lung problems" Mother Family Medical History: Cancer, Chest Pain / Angina, Congestive Heart Failure (CHF), Osteoarthritis (OA), Thyroid Disorder Additional Family Medical History / Comment(s): "female cancer" General Exam Limitations: no limitations General appearance: alert, in no apparent distress Head exam: Present: atraumatic, normocephalic, normal inspection Eye exam: Present: normal appearance Neck exam: Present: normal inspection, tenderness Respiratory exam: Present: normal lung sounds bilaterally. Absent: respiratory distress, wheezes, rales, rhonchi, stridor Cardiovascular Exam: Present: regular rate, normal rhythm, normal heart sounds. Absent: systolic murmur, diastolic murmur, rubs, gallop, clicks Extremities exam: Present: normal inspection, tenderness, normal capillary refill. Absent: full ROM, joint swelling Neurological exam: Present: alert, oriented X3, CN II-XII intact Psychiatric exam: Present: normal affect, normal mood Skin exam: Present: warm, dry, intact, normal color. Absent: rash Course Vital Signs 06/18/22 06/18/22 10:33 13:08 Temperature 97.9 F 97.9 F Pulse Rate 80 80 Respiratory 18 18 Rate Blood Pressure 161/100 161/100 O2 Sat by Pulse 98 98 Oximetry Medical Decision Making - Medical Decision Making Patient is a 56-year-old male well known to our ER presenting with chief complaint of neck pain with radiation down the right arm. States that he injured himself, his mother was falling and he went to catch her yesterday. He admits to numbness and tingling and pain with range of motion. On physical examination there is tenderness on palpation of the paraspinal muscles of the neck. CT of the cervical spine shows mild encroachment at C6 through 7 and C3 through 4. Patient has surgery scheduled for July for this chronic neck pain. He is given pain medication and reports improvement.Follow-up with PCP. Report back to ER with any new or worsening symptoms. Discussed return parameters and answered all questions. Patient conveyed verbal understanding and agreed to the plan. I discussed this case in detail with my attending Dr. Dawson Disposition Clinical Impression: Neck pain, Paresthesia Disposition: HOME SELF-CARE Condition: Good Instructions (If sedation given, give patient instructions): Cervical Radiculopathy (ED) Additional Instructions: Follow-up with PCP. Report back to ER with any new or worsening symptoms. Is patient prescribed a controlled substance at d/c from ED?: No Referrals: González Muñiz MD [Primary Care Provider] - 1-2 days Time of Disposition: 12:26
--- NOTE | 2022-06-18 12:47 | XR ---
EXAMINATION TYPE: XR shoulder complete RT DATE OF EXAM: 06/18/2022 CLINICAL HISTORY: pain TECHNIQUE: Three views of the right shoulder are obtained. COMPARISON: None FINDINGS: There is no acute fracture/dislocation evident. The acromioclavicular and glenohumeral alexander int spaces appear within normal limits. The visualized ribs are intact and unremarkable. IMPRESSION: 1. There is no acute fracture or dislocation. ICD 10 NO FRACTURE, INITIAL EVALUATION
[2022-06-18] MEDS ORDERED: HYDROmorphone 1 MG/ML 1 ML SYRINGE IM STA (12:49)
== END 2022-06-18 13:09 | disposition home or self-care (01) ==
LOC: EC 10:27
DX: M54.2 Cervicalgia (principal); R20.2 Paresthesia of skin; K21.9 Gastro-esophageal reflux disease without esophagitis; J45.909 Unspecified asthma, uncomplicated; I11.9 Hypertensive heart disease without heart failure; I25.10 Atherosclerotic heart disease of native coronary artery without angina pectoris; I25.2 Old myocardial infarction; E78.5 Hyperlipidemia, unspecified; M47.812 Spondylosis without myelopathy or radiculopathy, cervical region; E11.9 Type 2 diabetes mellitus without complications; G47.30 Sleep apnea, unspecified; I26.99 Other pulmonary embolism without acute cor pulmonale; Z79.4 Long term (current) use of insulin; Z79.82 Long term (current) use of aspirin; Z79.84 Long term (current) use of oral hypoglycemic drugs; Z79.02 Long term (current) use of antithrombotics/antiplatelets; Z79.899 Other long term (current) drug therapy; Z88.1 Allergy status to other antibiotic agents; Z88.6 Allergy status to analgesic agent; Z88.5 Allergy status to narcotic agent; Z88.9 Allergy status to unspecified drugs, medicaments and biological substances; Z88.8 Allergy status to other drugs, medicaments and biological substances; Z90.49 Acquired absence of other specified parts of digestive tract
CPT/HCPCS: 73030; 72125; 99284; 96372 ×3; J1100; J2360; J1170

== ENCOUNTER 2022-07-18 20:26 | Emergency (ER) | payer OTHER ==
[2022-07-18 20:45] VITALS: BP 154/110; TEMP 97
--- NOTE | 2022-07-18 22:03 | ED ---
Neck Injury/Pain HPI - General Source: RN notes reviewed Mode of arrival: ambulatory Limitations: no limitations - History of Present Illness MD Complaint: neck pain <Sadie Birmingham - Last Filed: 07/18/22 22:14> <Uri Martínez - Last Filed: 07/19/22 03:27> - General Chief Complaint: Neck Pain/Injury Stated Complaint: pinched nerve back Time Seen by Provider: 07/18/22 22:02 - History of Present Illness Initial Comments: Elisa is a 56 year old male who presents to the emergency department with a chief complaint of neck pain. Patient has chronic neck pain and is scheduled for fusion on August 04 with surgeon out of [place]. Patient states he was helping his mom out of bed today which causes increased neck pain. Pain is right sided. There is numbness and tingling down the right arm, unchanged from previous chronic pain. Patient taking muscle relaxer, gabapentin, Percocet, with little relief. No saddle anesthesia. No loss of bowel or bladder function. (Sadie Birmingham) This is a 56-year-old male who presents emergency department for neck pain. The patient stated that he was scheduled to undergo a laser cervical surgery on being in July however got rescheduled to the end of July. 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 The patient stated that this feels like an exacerbation of his neck pain and stated that he has had this before. The patient denied any urinary or fecal incontinence and denied any numbness or tingling. The patient stated that he had pain along the cervical spine which was consistent with his previous pain. The patient did state that he had pain and occasions at home that had not been helping speaking to the emergency department today seeking pain control. (Uri Martínez) - Related Data Home Medications Medication Instructions Recorded Confirmed Insulin Lispro [humaLOG Kwikpen] 10 unit SQ AC-TID 06/16/21 05/23/22 Omeprazole Magnesium [PriLOSEC OTC] 20 mg PO HS 06/16/21 05/23/22 oxyCODONE-APAP 5-325MG [Percocet 1 tab PO Q6H 09/12/21 05/23/22 5-325 mg] Gabapentin [Neurontin] 400 mg PO TID 12/25/21 05/23/22 Aspirin EC [Ecotrin Low Dose] 81 mg PO DAILY 05/23/22 05/23/22 Atorvastatin Calcium [Lipitor] 40 mg PO HS 05/23/22 05/23/22 Baclofen 10 mg PO TID 05/23/22 05/23/22 Empagliflozin [Jardiance] 25 mg PO DAILY 05/23/22 05/23/22 Metoprolol Tartrate [Lopressor] 50 mg PO BID 05/23/22 05/23/22 Omeprazole Magnesium [PriLOSEC OTC] 20 mg PO DAILY PRN 05/23/22 05/23/22 lisinopriL [Zestril] 5 mg PO BID 05/23/22 05/23/22 Allergies Allergy/AdvReac Type Severity Reaction Status Date / Time doxycycline Allergy Swelling Verified 06/18/22 10:36 ketorolac tromethamine Allergy Rash/Hives Verified 06/18/22 10:36 [From Toradol] morphine Allergy Rash/Hives Verified 06/18/22 10:36 metoclopramide HCl AdvReac Dystonic Verified 06/18/22 10:36 [From Reglan] Reaction prochlorperazine edisylate AdvReac Dystonic Verified 06/18/22 10:36 [From Compazine] Reaction prochlorperazine maleate AdvReac Dystonic Verified 06/18/22 10:36 [From Compazine] Reaction Review of Systems ROS Other: All systems not noted in ROS Statement are negative. <Sadie Birmingham - Last Filed: 07/18/22 22:14> ROS Other: All systems not noted in ROS Statement are negative. <Uri Martínez - Last Filed: 07/19/22 03:27> ROS Statement: Those systems with pertinent positive or pertinent negative responses have been documented in the HPI. Past Medical History Past Medical History: Asthma, Coronary Artery Disease (CAD), Chest Pain / Angina, Diabetes Mellitus, GERD/Reflux, GI Bleed, Hyperlipidemia, Hypertension, Myocardial Infarction (IN), Mitral Valve Prolapse (MVP), Pulmonary Embolus (PE), Sleep Apnea/CPAP/BIPAP Additional Past Medical History / Comment(s): Asthmatic bronchitis-chronic, IDDM type II, neuropathy bilateral feet, lower and upper GI bleeds, PUD, diverticulitis, colectomy d/t benign mass/intusseption, BPH, renal cysts, nephrolithiais, UTI with sepsis, chronic back pain 2ndary to herniated lumbar discs/sciatica, JARED does not use his Cpap, MVP, murmur Last Myocardial Infarction Date:: 2011 History of Any Multi-Drug Resistant Organisms: C-DIFF, MRSA Date of last positivie culture/infection: 2015 MDRO Source:: left axilla Past Surgical History: Appendectomy, Back Surgery, Cholecystectomy, Heart Catheterization, Hernia Repair Additional Past Surgical History / Comment(s): Lumbar decompression/fusion/laminectomy, spinal stimulator, T lift procedure, L inguinal hernia repair, multiple ESWLs/stents/double J caths, colonoscopy, 02/2020 colectomy, EGDs for food obstructions and dilations Past Anesthesia/Blood Transfusion Reactions: No Reported Reaction Past Psychological History: No Psychological Hx Reported Smoking Status: Never smoker Past Alcohol Use History: None Reported Past Drug Use History: None Reported - Past Family History Father Family Medical History: Chest Pain / Angina Additional Family Medical History / Comment(s): "lung problems" Mother Family Medical History: Cancer, Chest Pain / Angina, Congestive Heart Failure (CHF), Osteoarthritis (OA), Thyroid Disorder Additional Family Medical History / Comment(s): "female cancer" <ValenciaSadie - Last Filed: 07/18/22 22:14> General Exam Limitations: no limitations <ValenciaSadie - Last Filed: 07/18/22 22:14> Limitations: no limitations General appearance: alert, in no apparent distress Head exam: Present: atraumatic, normocephalic, normal inspection Eye exam: Present: normal appearance, PERRL, EOMI Pupils: Present: normal accommodation ENT exam: Present: normal exam, normal oropharynx, mucous membranes moist Neck exam: Present: tenderness (tenderness to palpation to the midline cervical spine as well as the bilateral paraspinal muscles, consistent with his previous chronic neck pain) Respiratory exam: Present: normal lung sounds bilaterally Cardiovascular Exam: Present: regular rate, normal rhythm, normal heart sounds GI/Abdominal exam: Present: soft, normal bowel sounds Extremities exam: Present: normal inspection, full ROM Back exam: Present: normal inspection, full ROM Neurological exam: Present: alert, oriented X3, CN II-XII intact Psychiatric exam: Present: normal affect, normal mood Skin exam: Present: warm, dry <Uri Martínez - Last Filed: 07/19/22 03:27> Course Vital Signs 07/18/22 07/19/22 20:42 03:12 Temperature 97 F L Pulse Rate 115 H 88 Respiratory 20 16 Rate Blood Pressure 154/110 O2 Sat by Pulse 98 Oximetry Medical Decision Making <Uri Martínez - Last Filed: 07/19/22 03:27> - Medical Decision Making Was pt. sent in by a medical professional or institution (, PA, VARSITY BASEBALL COACH, urgent care, hospital, or long term...) When possible be specific @ -No Did you speak to anyone other than the patient for history (EMS, parent, family, police, friend...)? What history was obtained from this source @ -No Did you review nursing and triage notes (agree or disagree)? Why? @ -I reviewed and agree with nursing and triage notes Were old charts reviewed (outside hosp., previous admission, EMS record, old EKG, old radiological studies, urgent care reports/EKG's, long term records)? Report findings @ -No old charts were reviewed Differential Diagnosis (chest pain, altered mental status, abdominal pain women, abdominal pain men, vaginal bleeding, weakness, fever, dyspnea, syncope, headache, dizziness, GI bleed, back pain, seizure, CVA, palpatations, mental health)? @ -Acute neck pain, cervical spine fracture EKG interpreted by me (3pts min.). @ -None X-rays interpreted by me (1pt min.). @ -None done CT interpreted by me (1pt min.). @ -None done U/S interpreted by me (1pt. min.). @ -None done What testing was considered but not performed or refused? (CT, X-rays, U/S, l abs)? Why? @ -CT of the head and neck were considered however the patient did have an MRI and had previously scheduled surgery for the end of the month. The patient stated MRI performed recently and did not need any further imaging at this time and just needed pain control this time. What meds were considered but not given or refused? Why? @ -None Did you discuss the management of the patient with other professionals (professionals i.e. , PA, VARSITY BASEBALL COACH, lab, RT, psych nurse, social contact worker, director translation, teacher, hazard mitigation officer, case investigator)? Give summary @ -No Was smoking cessation discussed for >3mins.? @ -No Was critical care preformed (if so, how long)? @ -No Were there social determinants of health that impacted care today? How? (Homelessness, low income, unemployed, alcoholism, drug addiction, transpor tation, low edu. Level, literacy, decrease access to med. care, long-term, rehab)? @ -No Was there de-escalation of care discussed even if they declined (Discuss DNR or withdrawal of care, Hospice)? DNR status @ -No What co-morbidities impacted this encounter? (DM, HTN, Smoking, COPD, CAD, Cancer, CVA, ARF, Chemo, Hep., AIDS, mental health diagnosis, sleep apnea, morbid obesity)? @ -Chronic neck pain Was patient admitted / discharged? Hospital course, mention meds given and route, prescriptions, significant lab abnormalities, going to OR and other pertinent info. @ -The patient seen and evaluated emergency department. Physical exam, the patient was resting in bed in minimal distress secondary to neck pain. All of his vital signs were stable and the patient's symptoms were consistent with his chronic neck pain. The patient denied any new symptoms. No imaging was obtained this time and the patient was given IM injections including Norflex, Dilaudid and Decadron. The patient stated that he did not want any prescriptions at this time and had medications at home. The patient on reevaluation stated his pain was significantly improved and he was stable for discharge. The patient was told to follow-up with his surgeon as previous he scheduled on . The patient was agreeable to this and all his questions were answered. The patient was discharged home in stable condition. Undiagnosed new problem with uncertain prognosis? @ -No Drug Therapy requiring intensive monitoring for toxicity (Heparin, Nitro, Insulin, Cardizem)? @ -No Were any procedures done? @ -No Diagnosis/symptom? @ -Neck pain Acute, or Chronic, or Acute on Chronic? @ -Acute on chronic Uncomplicated (without systemic symptoms) or Complicated (systemic symptoms)? @ -Uncomplicated Side effects of treatment? @ -No Exacerbation, Progression, or Severe Exacerbation? @ -No Poses a threat to life or bodily function? How? (Chest pain, [place], [place], pneumonia, PE, COPD, DKA, ARF, appy, cholecystitis, CVA, Diverticulitis, Homicidal, Suicidal, threat to staff... and all critical care pts) @ -No (Uri Martínez) Disposition <Sadie Birmingham - Last Filed: 07/18/22 22:14> Is patient prescribed a controlled substance at d/c from ED?: No Time of Disposition: 03:00 <Uri Martínez - Last Filed: 07/19/22 03:27> Clinical Impression: Neck pain Disposition: HOME SELF-CARE Condition: Stable Instructions (If sedation given, give patient instructions): Chronic Neck Pain (DC) Referrals: González Muñiz MD [Primary Care Provider] - 1-2 days
[2022-07-19] MEDS ORDERED: ORPHENADRINE 30 MG/ML 2 ML VIAL IM STA (02:08)
[2022-07-19] MEDS ORDERED: DEXAMETHASONE SOD PHOSPHATE 10 MG/ML 1 ML VIAL IM STA (02:08)
[2022-07-19] MEDS ORDERED: HYDROmorphone 1 MG/ML 1 ML SYRINGE IM STA (02:08)
[2022-07-19 03:12] VITALS: PULSE 88; RESP 16
== END 2022-07-19 03:15 | disposition home or self-care (01) ==
LOC: EC 20:26
DX: M54.2 Cervicalgia (principal); J45.909 Unspecified asthma, uncomplicated; I25.10 Atherosclerotic heart disease of native coronary artery without angina pectoris; E11.9 Type 2 diabetes mellitus without complications; E78.5 Hyperlipidemia, unspecified; I10 Essential (primary) hypertension; I25.2 Old myocardial infarction; G47.30 Sleep apnea, unspecified; I26.99 Other pulmonary embolism without acute cor pulmonale; K21.9 Gastro-esophageal reflux disease without esophagitis; Z79.82 Long term (current) use of aspirin; Z79.84 Long term (current) use of oral hypoglycemic drugs; Z79.4 Long term (current) use of insulin; Z79.899 Other long term (current) drug therapy; Z79.85 Long-term (current) use of injectable non-insulin antidiabetic drugs; Z88.5 Allergy status to narcotic agent; Z88.1 Allergy status to other antibiotic agents; Z88.6 Allergy status to analgesic agent; Z88.8 Allergy status to other drugs, medicaments and biological substances
CPT/HCPCS: 99283; 96372 ×3; J1100; J2360; J1170

== ENCOUNTER 2022-10-20 13:42 | Inpatient (IN) | payer OTHER ==
--- NOTE | 2022-10-20 14:46 | ED ---
Neck Injury/Pain HPI - General Chief Complaint: Neck Pain/Injury Stated Complaint: neck pain Time Seen by Provider: 10/20/22 14:40 Source: patient, RN notes reviewed Mode of arrival: ambulatory Limitations: no limitations - History of Present Illness Initial Comments: This is a 56-year-old male who presents to the emergency department for neck pain and lower back pain. States that he has a history of multiple spinal problems requiring several surgeries. Yesterday when he went to move a couch, he developed severe pain to the right side of the neck radiating into the right shoulder. Later in the day, he started to develop pain in the lower back as well with numbness in the right leg. He had loss of bowel and bladder control twice earlier today. He has a history of cauda equina, most recently in 2018, and states that this feels that the same. This was able to be treated medically with steroids at that time. Currently follows with spine specialists at [facility]. Denies any fevers, chills, sore throat, cough, dyspnea, chest pain, palpitations, abdominal pain, nausea, vomiting, diarrhea, or headaches. MD Complaint: neck pain, neck injury Onset/Timin -: days(s) - Related Data Home Medications Medication Instructions Recorded Confirmed Insulin Lispro [humaLOG Kwikpen] See Protocol SQ ACHS 06/16/21 10/20/22 oxyCODONE-APAP 5-325MG [Percocet 1 tab PO Q6H 09/12/21 10/20/22 5-325 mg] Gabapentin [Neurontin] 400 mg PO TID 12/25/21 10/20/22 Aspirin EC [Ecotrin Low Dose] 81 mg PO DAILY 05/23/22 10/20/22 Atorvastatin Calcium [Lipitor] 40 mg PO HS 05/23/22 10/20/22 Baclofen 10 mg PO TID 05/23/22 10/20/22 Empagliflozin [Jardiance] 25 mg PO DAILY 05/23/22 10/20/22 Metoprolol Tartrate [Lopressor] 50 mg PO BID 05/23/22 10/20/22 Omeprazole Magnesium [PriLOSEC OTC] 20 mg PO DAILY PRN 05/23/22 10/20/22 lisinopriL [Zestril] 5 mg PO BID 05/23/22 10/20/22 Insulin Glargine,Hum.rec.anlog 24 units SQ BID 10/20/22 10/20/22 [Lantus Solostar Pen] Ondansetron Odt [Zofran Odt] 4 mg PO Q6H PRN 10/20/22 10/20/22 Allergies Allergy/AdvReac Type Severity Reaction Status Date / Time doxycycline Allergy Swelling Verified 10/20/22 20:30 ketorolac tromethamine Allergy Rash/Hives Verified 10/20/22 20:30 [From Toradol] morphine Allergy Rash/Hives Verified 10/20/22 20:30 metoclopramide HCl AdvReac Dystonic Verified 10/20/22 20:30 [From Reglan] Reaction prochlorperazine edisylate AdvReac Dystonic Verified 10/20/22 20:30 [From Compazine] Reaction prochlorperazine maleate AdvReac Dystonic Verified 10/20/22 20:30 [From Compazine] Reaction Review of Systems ROS Statement: Those systems with pertinent positive or pertinent negative responses have been documented in the HPI. ROS Other: All systems not noted in ROS Statement are negative. Past Medical History Past Medical History: Asthma, Coronary Artery Disease (CAD), Chest Pain / Angina, Diabetes Mellitus, GERD/Reflux, GI Bleed, Hyperlipidemia, Hypertension, Myocardial Infarction ([place]), Mitral Valve Prolapse (MVP), Pulmonary Embolus (PE), Sleep Apnea/CPAP/BIPAP Additional Past Medical History / Comment(s): Asthmatic bronchitis-chronic, IDDM type II, neuropathy bilateral feet, lower and upper GI bleeds, PUD, diver ticulitis, colectomy d/t benign mass/intusseption, BPH, renal cysts, nephrolithiais, UTI with sepsis, chronic back pain 2ndary to herniated lumbar discs/sciatica, JARED does not use his Cpap, MVP, murmur Last Myocardial Infarction Date:: 2011 History of Any Multi-Drug Resistant Organisms: C-DIFF, MRSA Date of last positivie culture/infection: 2015 MDRO Source:: left axilla Past Surgical History: Appendectomy, Back Surgery, Cholecystectomy, Heart Catheterization, Hernia Repair Additional Past Surgical History / Comment(s): Lumbar decompression/fusion/laminectomy, spinal stimulator, T lift procedure, L inguinal hernia repair, multiple ESWLs/stents/double J caths, colonoscopy, 02/2020 colectomy, EGDs for food obstructions and dilations Past Anesthesia/Blood Transfusion Reactions: No Reported Reaction Past Psychological History: No Psychological Hx Reported Smoking Status: Never smoker Past Alcohol Use History: None Reported Past Drug Use History: None Reported - Past Family History Father Family Medical History: Chest Pain / Angina Additional Family Medical History / Comment(s): "lung problems" Mother Family Medical History: Cancer, Chest Pain / Angina, Congestive Heart Failure (CHF), Osteoarthritis (OA), Thyroid Disorder Additional Family Medical History / Comment(s): "female cancer" General Exam - General Exam Comments Initial Comments: Visual Physical Exam Vital signs reviewed General: Well-appearing, nontoxic, no acute distress. Head: Normocephalic, atraumatic Eyes: PERRLA, EOMI ENT: Airway patent Chest: Nonlabored breathing Skin: No visual rash, normal skin tone Neuro: Alert and oriented 3 Musculoskeletal: No gross abnormalities Limitations: no limitations General appearance: alert, in distress Head exam: Present: atraumatic, normocephalic, normal inspection Neck exam: Present: tenderness (Tenderness palpation of the left cervical spine and left shoulder) Respiratory exam: Present: normal lung sounds bilaterally. Absent: respiratory distress, wheezes, rales, rhonchi, stridor Cardiovascular Exam: Present: regular rate, normal rhythm, normal heart sounds. Absent: systolic murmur, diastolic murmur, rubs, gallop, clicks GI/Abdominal exam: Present: soft, normal bowel sounds. Absent: distended, tenderness, guarding, rebound, rigid Back exam: Present: tenderness (Lumbar spine). Absent: full ROM (Secondary to pain) Neurological exam: Present: alert, oriented X3, CN II-XII intact, normal gait. Absent: motor sensory deficit Psychiatric exam: Present: normal affect, normal mood Skin exam: Present: warm, dry, intact, normal color. Absent: rash Course Vital Signs 10/20/22 10/20/22 10/20/22 13:54 18:10 19:25 Temperature 98.3 F Pulse Rate 120 H 104 H Respiratory 20 22 Rate Blood Pressure 151/99 153/89 O2 Sat by Pulse 97 97 95 Oximetry 10/20/22 10/20/22 10/20/22 19:30 20:00 20:30 Temperature Pulse Rate Respiratory Rate Blood Pressure 174/95 151/95 147/87 O2 Sat by Pulse 95 92 L 93 L Oximetry 10/20/22 21:00 Temperature 97.8 F Pulse Rate Respiratory Rate Blood Pressure 149/97 O2 Sat by Pulse Oximetry Medical Decision Making - Medical Decision Making This is a 56-year-old male who presents to the emergency department for neck pain and lower back pain. Was pt. sent in by a medical professional or institution? @ -No Did you speak to anyone other than the patient for history? @ -No Did you review nursing and triage notes? @ -Yes, and I agree, it is accurate with regards to the patient's symptoms. Were old charts reviewed? @ -Yes, admission records and orthopedic consult from March [address] Short. Patient had the same symptoms and was treated medically with IV Solu- Medrol. Differential Diagnosis? @ -Differential Back Pain: Strain, zoster, cauda equina syndrome, epidural abscess, vertebral osteomyelitis, discitis, fracture, subluxation, disc herniation, DJD, spinal stenosis, dissection, AAA, pancreatitis, peptic ulcer disease, pyelonephritis, kidney stone, this is not meant to be an all-inclusive list. CT interpreted by me (1pt min.)? @ -Computed tomography scan of the cervical and lumbar spine obtained. My interpretation identifies postoperative changes with lumbar fusion and prosthetic discs in the cervical spine. The surgical hardware does limit my evaluation. What testing was considered but not performed? (CT, X-rays, U/S, labs)? Why? @ -None What meds were considered but not given? Why? @ -None Did you discuss the management of the patient with other professionals? @ -Case discussed with Dr. Burnette, radiology, who spoke with the MRI department. They were unable to bump any other patients or get him in for an MRI any sooner than tomorrow. He then advised we do a computed tomography scan of the cervical and lumbar spine in the emergency department. I then spoke with the ER provider at [facility], who declined the transfer, as she could not find record of the patient being there recently. I then spoke with [facility], who also declined the transfer because their hospital is full. They also did not think that it was medically necessary for him to be transferred at this time, and felt like we could provide adequate care here. I then spoke with the patient's PCP, Dr. Muñiz, who accepts the patient for admission. Did you reconcile home meds? @ -No Was smoking cessation discussed for >3mins.? @ -No Was critical care preformed (if so, how long)? @ -No Were there social determinants of health that impacted care today? How? (Homelessness, low income, unemployed, alcoholism, drug addiction, transportation, low edu. Level, literacy, decrease access to med. care, correction, rehab)? @ -No Was there de-escalation of care discussed even if they declined? (Discuss DNR or withdrawal of care, Hospice)? @ -No What co-morbidities impacted this encounter? (DM, HTN, Smoking, COPD, CAD, Cancer, CVA, Hep., AIDS, mental health diagnosis, sleep apnea, morbid obesity)? @ -Morbid obesity, Degenerative disc disease Was patient admitted / discharged? @ -Admitted. We had initially wanted to obtain an MRI of the spine, however the MRI department could not get him in until tomorrow morning. Per the recommendation of Dr. Burnette, radiology, we proceeded with a computed tomography scan of the cervical and lumbar spine. This revealed no acute findings other than moderate distention of the bladder. Patient does also have a large amount of hardware that limits visualization on the computed tomography scan as well. A postvoid residual bladder scan was obtained revealing 737 mL. The urinary retention associated with bowel and bladder incontinence and saddle anesthesia is concerning for cauda equina. He was given a dose of Decadron in the emergency department. Given that the patient was previously treated at [facility], I did contact their facility regarding a transfer. The ER provider that I spoke with could not find record of him being treated there in over 3 years, and did not think that they would be providing continuity of care. I then spoke with [facility], who declined the transfer because they were full. They also advised that they did not believe that a transfer was medically necessary and that we should be able to handle this here. They did advise that if we were to admit him here and experience problems later on, we could discuss an inpatient to inpatient transfer with them. I then discussed the case with Dr. Muñiz, the patient's PCP, who accepts the patient for admission. He requests orthopedic spine surgery consult. Dr. Short is on-call and a consult for him was placed as well. Undiagnosed new problem with uncertain prognosis? @ -None Drug Therapy requiring intensive monitoring for toxicity (Heparin, Nitro, Insulin, Cardizem)? @ -None Were any procedures done? @ -None Diagnosis/symptom? @ -Cauda equina Acute, or Chronic, or Acute on Chronic? @ -Acute Uncomplicated (without systemic symptoms) or Complicated (systemic symptoms)? @ -Complicated Side effects of treatment? @ -None Exacerbation, Progression, or Severe Exacerbation] @ -Not applicable Poses a threat to life or bodily function? @ -Yes This case was discussed in detail with the attending ED physician, Dr. Mishra. Presentation, findings, and treatment plan discussed in detail as well. - Lab Data Lab Results 10/20/22 Range/Units 16:57 Urine Color Yellow Urine Appearance Clear (Clear) Urine pH 5.0 (5.0-8.0) Ur Specific [place] 1.044 H (1.001-1.035) Urine Protein Negative (Negative) Urine Glucose (UA) 4+ H (Negative) Urine Ketones 1+ H (Negative) Urine Blood Negative (Negative) Urine Nitrite Negative (Negative) Urine Bilirubin Negative (Negative) Urine Urobilinogen <2.0 (<2.0) mg/dL Ur Leukocyte Esterase Negative (Negative) - Radiology Data Radiology results: report reviewed, image reviewed Disposition Clinical Impression: Bowel and bladder incontinence, Saddle anesthesia, Lower back pain Disposition: ADMITTED IP TO THIS HOSP
[2022-10-20] MEDS ORDERED: DEXAMETHASONE SOD PHOSPHATE 10 MG/ML 1 ML VIAL IVP STA ×2 (15:19→17:27)
[2022-10-20] MEDS ORDERED: HYDROmorphone 1 MG/ML 1 ML SYRINGE IVP STA ×2 (15:30→17:27)
--- NOTE | 2022-10-20 16:52 | CT ---
EXAMINATION TYPE: CT cervical spine wo con DATE OF EXAM: 10/20/2022 COMPARISON: 06/18/2022 HISTORY: Neck pain after lifting injury. CT DLP: 609.[address] of the cervical spine was performed with bone and soft tissue window settings submitted . Coronal and sagittal reconstruction is obtained. There is normal alignment and prevertebral soft ti ssues. I do not see evidence for fracture or subluxation. The lung apices are clear C2-3: Normal disc space. Ventral spondylosis. No central stenosis. C3-4: No significant degenerative narrowing. Ventral spondylosis. No disc herniation or disc bulge. M ild left foraminal encroachment. C4-5: Disc prosthesis with streak artifact. Limited evaluation of the spinal canal. C5-6:Disc prosthesis with streak artifact. Limited evaluation of the spinal canal. C6-7: Mild degenerative narrowing. Mild posterior disc bulge. No evidence for herniation or central s tenosis. Mild bilateral neural foraminal encroachment. C7-T1: Within normal limits IMPRESSION: 1 no evidence for central stenosis or herniated disc. 2. No evidence of fracture or malalignment. 3. Postoperative changes with prosthetic disc material noted at C4-5 and C5-6.
--- NOTE | 2022-10-20 16:58 | CT ---
EXAMINATION TYPE: CT lumbar spine wo con DATE OF EXAM: 10/20/2022 COMPARISON: 05/20/2021 HISTORY: Back pain after lifting injury. CT DLP: 1832.[address] of the lumbar spine was performed. Bone and soft tissue window settings are submitted as well as coronal and sagittal reconstructions. L1-L2: Normal disc space height. No disc herniation protrusion or central stenosis. No facet joint arthropathy. No evidence for foraminal encroachment. L2-L3: Normal disc space height. No disc herniation protrusion or central stenosis. No facet joint arthropathy. No evidence for foraminal encroachment. L3-L4: Postsurgical change of laminectomy with pedicular screws in place. Postoperative alignment is within normal limits. Intervertebral body spacer is noted. Streak artifact limits evaluation of the s kai canal. Spinal canal appears to be grossly patent. L4-L5: Postsurgical change of laminectomy with pedicular screws in place. Postoperative alignment is within normal limits. Intervertebral body spacer is noted. Streak artifact limits evaluation of the s kai canal. Spinal canal appears to be grossly patent. L5-S1: Postsurgical change of laminectomy with pedicular screws in place. Postoperative alignment is within normal limits. Intervertebral body spacer is noted. Streak artifact limits evaluation of the s kai canal. Spinal canal appears to be grossly patent. No paraspinal masses are identified. Lumbar segments are free if fracture. There appears to be at le ast moderate distention of the urinary bladder. IMPRESSION: 1. Postoperative changes of the lumbar spine and of the decompressive laminectomy and fusion. Overall appearance is stable relative to the prior examination. Streak artifact limits evaluation of portion s of the study. 2. There is moderate distention of the urinary bladder
[2022-10-20 17:13] LABS: Appearance,Urine Clear (Clear); Bilirubin,Urine Negative (Negative); Blood,Urine Negative (Negative); Color,Urine Yellow; Glucose,Urine (UA) 4+ (Negative); Ketones,Urine 1+ (Negative); Leukocyte Esterase,Urine Negative (Negative); Nitrite,Urine Negative (Negative); Protein,Urine Negative (Negative); Specific Gravity,Urine 1.044 (1.001-1.035); Urobilinogen,Urine <2.0 mg/dL (<2.0)
[2022-10-20] MEDS ORDERED: ACETAMINOPHEN TAB 325 MG TAB PO PRN (18:01)
[2022-10-20] MEDS ORDERED: NALOXONE 0.4 MG/ML 1 ML VIAL IV PRN (18:01)
[2022-10-20] MEDS ORDERED: ONDANSETRON 4 MG/2 ML VIAL IVP PRN (18:01)
--- NOTE | 2022-10-20 20:47 | HP ---
HISTORY AND PHYSICAL HISTORY OF PRESENT ILLNESS: This is a 56-year-old white male who came in to the hospital due to difficulty with his neck pain and lower back pain. He has multiple spinal surgeries. He injured the right arm, right shoulder, moving a couch apparently, which was very heavy due to loss of bowel and bladder control 20 surgery today as his cauda equina 2018, treated with steroids at this time. They tried to transfer him down to the . CAT scans lumbar and cervical reviewed. HOME MEDICINES: Reviewed 1. Neurontin 400 t.i.d. 2. Aspirin 81 daily. 3. Lipitor 40 daily. 4. Jardiance 25 daily. 5. Lopressor 50 b.i.d. 6. Omeprazole 20 daily. 7. Lisinopril 5 mg b.i.d. 8. Percocet 5/325 every 6. ALLERGIES: Please see list. REVIEW OF SYSTEMS: A 14-point review of systems otherwise is negative except for mentioned in HPI. PAST MEDICAL HISTORY: Asthma coronary disease, angina, diabetes, GERD, GI bleed, dyslipidemia, hypertension, myocardial infarction, mitral valve prolapse, PE, sleep apnea, C diff, MRSA. PAST SURGICAL HISTORY: Appendectomy, back surgery, cholecystectomy, heart catheterization, hernia repair. FAMILY HISTORY: Father chest pain, angina. Mother, CHF, osteoarthritis, hypothyroidism. PHYSICAL EXAMINATION: GENERAL: Stable. Afebrile. VITAL SIGNS: Temperature 93, pulse 1.1 14, respiratory rate 18 to 22, blood pressure 150s over 80s, and O2 97%. HEENT: Normocephalic, atraumatic. Pupils equal, round, and reactive. HEMATOLOGY: Negative for Homans. PSYCH: Fair mood and affect. GI: Soft. SKIN: Wound VAC. ASSESSMENT: Cervical lumbar disk disease, rule out cauda equina syndrome, spinal stenosis, disease, pyelonephritis, kidney stones, possibly bladder looks possibly displaced. We will get ultrasound of the pelvis area, KUB, postvoid residual 737. He will need urinary retention treatment with a Jaramillo and urology consult. Prognosis guarded. MMODL / IJN: [id number] /
--- NOTE | 2022-10-20 21:08 | US ---
EXAMINATION TYPE: US abdomen comp/pelvis limited DATE OF EXAM: 10/20/2022 COMPARISON: NONE CLINICAL HISTORY: urine retention/stones. urine retention EXAM MEASUREMENTS: Liver Length: 22.5 cm Gallbladder Wall: Surgically absent CBD: 0.45 cm Spleen: 12.2 cm Right Kidney: 13.3 x 6.7 x 5.7 cm Left Kidney: 14.4 x 6.5 x 7.8 cm Pancreas: Appears wnl Liver: Heterogeneous with increased attenuation Gallbladder: Surgically absent. CBD: wnl Spleen: wnl Right Kidney: Cyst seen in upper pole measuring 4.9 x 4.4 x 4.2 cm. No hydronephrosis. Left Kidney: No hydronephrosis or masses seen Upper IVC: Obscured by overlying bowel gas Abd Aorta: Limited, but appears wnl Bladder: wnl Bilateral Jets Seen Only the left jet visualized IMPRESSION: No acute process.
[2022-10-20] MEDS: HYDROmorphone 1 MG/ML 1 ML SYRINGE IVP PRN (21:56)
[2022-10-20 21:58] LABS: Glucose,Whole Blood 388 mg/dL (70-110)
[2022-10-21] MEDS: HYDROmorphone 1 MG/ML 1 ML SYRINGE IVP PRN ×8 (01:03→21:59)
[2022-10-21] MEDS ORDERED: DEXTROSE 50% SYRINGE 50 ML IVP PRN ×2 (03:05)
[2022-10-21 07:03] LABS: Glucose,Whole Blood 279 mg/dL (70-110)
[2022-10-21 07:58] LABS: AST 25 U/L (17-59); African American GFR (CKD) >90 (>60 ml/min/1.73 sqM); Albumin 3.9 g/dL (3.5-5.0); Albumin/Globulin Ratio 1.4; Anion Gap 13 mmol/L; Blood Urea Nitrogen 14 mg/dL (9-20); Carbon Dioxide 16 mmol/L (22-30); Chloride 104 mmol/L (98-107); Globulin 2.7 g/dL; Glucose 287 mg/dL (74-99); Non-African American GFR(CKD) >90 (>60 ml/min/1.73 sqM); Sodium 133 mmol/L (137-145); Total Bilirubin 0.9 mg/dL (0.2-1.3); Total Protein 6.6 g/dL (6.3-8.2)
[2022-10-21 08:30] LABS: ALT 35 U/L (4-49); Alkaline Phosphatase 86 U/L (38-126); Potassium 4.7 mmol/L (3.5-5.1)
[2022-10-21] MEDS: TAMSULOSIN 0.4 MG CAP.ER.24H PO SCH (08:30)
[2022-10-21] MEDS: INSULIN ASPART (NovoLOG) 100 UNIT/ML VIAL SQ SCH ×4 (08:30→21:39)
[2022-10-21 08:43] LABS: Basophils % (A) 0 %; Eosinophils % (A) 0 %; HGB 14.8 gm/dL (13.0-17.5); Lymphocytes # (A) 0.9 k/uL (1.0-4.8); Lymphocytes % (A) 10 %; MCH 29.2 pg (25.0-35.0); MCHC 34.3 g/dL (31.0-37.0); MCV 85.2 fL (80.0-100.0); Mean Platelet Volume 8.6; Monocytes # (A) 0.3 k/uL (0-1.0); Monocytes % (A) 4 %; Neutrophils # (A) 6.9 k/uL (1.3-7.7); Neutrophils % (A) 85 %; Platelet Count 240 k/uL (150-450); RBC 5.05 m/uL (4.30-5.90); RDW 13.3 % (11.5-15.5); WBC 8.2 k/uL (3.8-10.6)
--- NOTE | 2022-10-21 09:29 | P.CNOR ---
History of Present Illness - [facility] Consult date: 10/21/22 Requesting physician: Naima Chaney Consult reason: low back pain (Possible cauda equina; right lower extremity ra diculopathy) History of present illness: Patient is a very pleasant 56-year-old male who is seen and the bedside for further evaluation of his spine. He has a significant history regards to his spine. He states approximately 2 days ago he was moving a couch and has had some increased pain since that time. He's been experiencing some pain towards the right side of his cervical spine and right shoulder. More significantly, he's been experiencing increased thoracic and lumbar pain with significant pain radiating down his right lower extremity. He has difficulty with active range of motion of his right lower extremity due to his pain. He states yesterday prior to his presentation to the emergency department he had 2 episodes of loss of bowel and 2 episodes of loss of bladder. He is now experiencing urinary retention. Jaramillo catheter has been placed. He denies specific lower extremity or upper extremity weakness bilaterally. He does feel weakness in the right lower extremity due to pain. He states he does have some different saddle sensation. In regards to his spine, he has a history of previous C4-5 and C5-6 disc replacement surgery. He has had multiple surgical interventions at his lumbar spine. He previously underwent surgical intervention [address] Loaiza. He subsequently underwent an L3-S1 lumbar fusion in [address] Bowie, who has since left the area. He is now following with Dr. Loaiza again in the outpatient setting. He would like to continue following with him in regards to spine treatment. He also follows with a furniture painter in the outpatient setting. He has had significant evaluation for his cervical spine. He has worked through 6 weeks of physical therapy without significant improvement. He states he is currently scheduled to undergo cervical ablation in approximately a week and a half in the outpatient setting. Patient also has a neurostimulator placed. Battery is intact. This n eurostimulator continues to function. He states he is able to undergo MRI imaging if the neurostimulator is turned off. He has had some difficulty obtaining MRI imaging in the past when a clearance representative is not readily available. He is undergone CT myelogram imaging in the past without difficulty and states he would be willing to undergo further CT monogram imaging during his evaluation here at [facility]. Patient states he has a history of cauda equina syndrome in 2018. However, he has been able to resume normal urinary function prior to the onset of these new symptoms 2 days ago. Consultation has been placed with urology. He has not been evaluated yet this morning. He has been started on Flomax. He is currently receiving IV Dilaudid for pain control. He is comfortable at the bedside. 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, JARED does not use his Cpap, MVP, murmur Last Myocardial Infarction Date:: 2011 History of Any Multi-Drug Resistant Organisms: C-DIFF, MRSA Year Discovered:: 2016 MDRO Source:: left axilla Past Surgical History: Appendectomy, Back Surgery, Cholecystectomy, Heart Catheterization, Hernia Repair Additional Past Surgical History / Comment(s): Lumbar decompre ssion/fusion/laminectomy, spinal stimulator, T lift procedure, L inguinal hernia repair, multiple ESWLs/stents/double J caths, colonoscopy, 02/2020 colectomy, EGDs for food obstructions and dilations Past Anesthesia/Blood Transfusion Reactions: No Reported Reaction Past Psychological History: No Psychological Hx Reported Smoking Status: Never smoker Past Alcohol Use History: None Reported Past Drug Use History: None Reported - Past Family History Father Family Medical History: Chest Pain / Angina Additional Family Medical History / Comment(s): "lung problems" Mother Family Medical History: Cancer, Chest Pain / Angina, Congestive Heart Failure (CHF), Osteoarthritis (OA), Thyroid Disorder Additional Family Medical History / Comment(s): "female cancer" Medications and Allergies Home Medications Medication Instructions Recorded Confirmed Type Insulin Lispro [humaLOG Kwikpen] See Protocol SQ ACHS 06/16/21 10/20/22 History oxyCODONE-APAP 5-325MG [Percocet 1 tab PO Q6H 09/12/21 10/20/22 History 5-325 mg] Gabapentin [Neurontin] 400 mg PO TID 12/25/21 10/20/22 History Aspirin EC [Ecotrin Low Dose] 81 mg PO DAILY 05/23/22 10/20/22 History Atorvastatin Calcium [Lipitor] 40 mg PO HS 05/23/22 10/20/22 History Baclofen 10 mg PO TID 05/23/22 10/20/22 History Empagliflozin [Jardiance] 25 mg PO DAILY 05/23/22 10/20/22 History Metoprolol Tartrate [Lopressor] 50 mg PO BID 05/23/22 10/20/22 History Omeprazole Magnesium [PriLOSEC OTC] 20 mg PO DAILY PRN 05/23/22 10/20/22 History lisinopriL [Zestril] 5 mg PO BID 05/23/22 10/20/22 History Insulin Glargine,Hum.rec.anlog 24 units SQ BID 10/20/22 10/20/22 History [Lantus Solostar Pen] Ondansetron Odt [Zofran Odt] 4 mg PO Q6H PRN 10/20/22 10/20/22 History Allergies Allergy/AdvReac Type Severity Reaction Status Date / Time doxycycline Allergy Swelling Verified 10/20/22 20:30 ketorolac tromethamine Allergy Rash/Hives Verified 10/20/22 20:30 [From Toradol] morphine Allergy Rash/Hives Verified 10/20/22 20:30 metoclopramide HCl AdvReac Dystonic Verified 10/20/22 20:30 [From Reglan] Reaction prochlorperazine edisylate AdvReac Dystonic Verified 10/20/22 20:30 [From Compazine] Reaction prochlorperazine maleate AdvReac Dystonic Verified 10/20/22 20:30 [From Compazine] Reaction Physical Examination Osteopathic Statement: *. No significant issues noted on an osteopathic structural exam other than those noted in the History and Physical/Consult. Physical exam: Patient is awake, alert, and oriented 3 Vital signs stable Good chest excursion with deep inspiration and expiration Examination of thoracic and lumbar spine reveals skin is intact with no abrasions, lacerations, or bruises; no erythema, purulence or signs of infection Multiple well-healed incisions; 3 well-healed incisions on the midline and paraspinals of the lumbar spine; evidence of a midline healed incision of the mid to lower thoracic spine; evidence of a well-healed incision over the left fl ank with neurostimulator battery placement Significant increased pain in the right lower extremity pain throughout active range of motion of the right lower extremity Increased right lower extremity pain with passive range of motion of the right lower extremity Increased right lower extremity leg pain with Lasegue's testing. Active full range of motion of the right lower extremity actively and passively without difficulty Patient is able to perform dorsiflexion and plantarflexion bilaterally but has significant increased pain of the right lower extremity when doing so on the right No lower extremity hyperreflexia bilaterally No signs or symptoms of DVT; no calf pain No pain with internal and external rotation of the hips bilaterally Neurovascularly intact Jaramillo catheter intact Results Pertinent studies: CT of the cervical spine taken on 10/20/2022: Evidence of postoperative change with disc replacement at C4-5 and C5-6 which appears to be in adequate position; C6-7 mild degenerative disc disease; C3-4 anterior osteophytic spurring; loss of cervical lordosis; no obvious herniated nucleus pulposus or canal stenosis CT of the lumbar spine taken on 10/20/2022: Evidence of postoperative change with retained hardware L3-S1 with rods and screws intact; L3-4 interbody device intact; partially visualized neurostimulator placement covering at least T10-11; evidence of neurostimulator battery placement in the left flank; no vertebral body compression fracture; no obvious spinal stenosis or large herniated nucleus pulposus - Labs Labs: Abnormal Lab Results - Last 24 Hours (Table) 10/20/22 10/20/22 10/21/22 Range/Units 16:57 21:57 06:54 Lymphocytes # 0.9 L (1.0-4.8) k/uL Sodium (137-145) mmol/L Carbon Dioxide (22-30) mmol/L Creatinine (0.66-1.25) mg/dL Glucose (74-99) mg/dL POC Glucose (mg/dL) 388 H (70-110) mg/dL Ur Specific [place] 1.044 H (1.001-1.035) Urine Glucose (UA) 4+ H (Negative) Urine Ketones 1+ H (Negative) 10/21/22 10/21/22 Range/Units 06:54 07:01 Lymphocytes # (1.0-4.8) k/uL Sodium 133 L (137-145) mmol/L Carbon Dioxide 16 L (22-30) mmol/L Creatinine 0.48 L (0.66-1.25) mg/dL Glucose 287 H (74-99) mg/dL POC Glucose (mg/dL) 279 H (70-110) mg/dL Ur Specific [place] (1.001-1.035) Urine Glucose (UA) (Negative) Urine Ketones (Negative) H & H 10/21/22 Range/Units 06:54 Hgb 14.8 (13.0-17.5) gm/dL Hct 43.0 (39.0-53.0) % Result Diagrams: 10/21/22 06:54 10/21/22 06:54 Assessment and Plan Assessment: Assessment: Acute on chronic right-sided cervical pain and right shoulder pain currently being managed the outpatient setting Acute on chronic low back pain Status post injury while lifting couch 2 days ago Thoracolumbar pain Acute right lower extremity radiculopathy Possible cauda equina History of cauda equina 2018 Episode of loss of bladder 2 yesterday, 10/20/2022 Episode of loss of bowel 2 yesterday, 10/20/2022 History of cauda equina syndrome in 2018 Saddle and station changes Current urinary retention with Jaramillo catheter intact Difficulties with mobility of the right lower extremity due to pain History L3-S1 lumbar fusion with retained hardware History C4-5 and C5-6 disc replacement with retained hardware History of neurostimulator placement with retained hardware and battery Coronary artery disease Diabetes mellitus Hyperlipidemia Hypertension History of myocardial infarction History of GI bleed History of pulmonary embolism (1) Thoracolumbar back pain Current Visit: Yes Status: Acute Code(s): M54.50 - LOW BACK PAIN, UN SPECIFIED; M54.6 - PAIN IN THORACIC SPINE SNOMED Code(s): 283488307 (2) Spinal cord neurostimulator device in situ Current Visit: Yes Status: Acute Code(s): Z96.82 - PRESENCE OF NEUROSTIMULATOR SNOMED Code(s): 524623682 (3) Acute low back pain Current Visit: No Status: Acute Code(s): M54.5 - LOW BACK PAIN * DO NOT USE * SNOMED Code(s): 643372316 (4) Bowel and bladder incontinence Current Visit: Yes Status: Acute Code(s): R32 - UNSPECIFIED URINARY INCONTINENCE; R15.9 - FULL INCONTINENCE OF FECES SNOMED Code(s): 93994969 (5) Cauda equina syndrome Current Visit: No Status: Acute Code(s): G83.4 - CAUDA EQUINA SYNDROME SNOMED Code(s): 511201954 (6) Fusion of spine of lumbosacral region Current Visit: No Status: Acute Code(s): M43.27 - FUSION OF SPINE, LUMBOSACRAL REGION SNOMED Code(s): 47730139 (7) Fusion of spine, cervical region Current Visit: No Status: Acute Code(s): M43.22 - FUSION OF SPINE, CERVICAL REGION SNOMED Code(s): 639999952 (8) History of laminectomy Current Visit: No Status: Acute Code(s): Z98.890 - OTHER SPECIFIED POSTPROCEDURAL STATES SNOMED Code(s): 319780362 (9) Lumbar back pain with radiculopathy affecting right lower extremity Current Visit: No Status: Acute Code(s): M54.16 - RADICULOPATHY, LUMBAR REGION SNOMED Code(s): 727761300 (10) Neck pain Current Visit: No Status: Acute Code(s): M54.2 - CERVICALGIA SNOMED Code(s): 52784676 (11) Right lumbar radiculopathy Current Visit: No Status: Acute Code(s): M54.16 - RADICULOPATHY, LUMBAR REGION SNOMED Code(s): 197741031 (12) Saddle anesthesia Current Visit: Yes Status: Acute Code(s): R20.0 - ANESTHESIA OF SKIN SNOMED Code(s): 94606533 (13) Diabetes mellitus Current Visit: Yes Status: Acute Code(s): E11.9 - TYPE 2 DIABETES MELLITUS WITHOUT COMPLICATIONS SNOMED Code(s): 37868601 (14) History of myocardial infarction Current Visit: Yes Status: Acute Code(s): I25.2 - OLD MYOCARDIAL INFARCTION SNOMED Code(s): 544413331 (15) History of GI bleed Current Visit: Yes Status: Acute Code(s): Z87.19 - PERSONAL HISTORY OF OTHER DISEASES OF THE DIGESTIVE SYSTEM SNOMED Code(s): 474797745 (16) History of pulmonary embolism Current Visit: Yes Status: Acute Code(s): Z86.711 - PERSONAL HISTORY OF PULMONARY EMBOLISM SNOMED Code(s): 241497440 (17) Degenerative cervical disc Current Visit: Yes Status: Acute Code(s): M50.30 - OTHER CERVICAL DISC DEGENERATION, UNSP CERVICAL REGION SNOMED Code(s): 11412673 (18) Osteophyte Current Visit: Yes Status: Acute Code(s): M25.70 - OSTEOPHYTE, UNSPECIFIED JOINT SNOMED Code(s): 748482193806077 (19) Hx of coronary artery disease Current Visit: No Status: Acute Code(s): Z86.79 - PERSONAL HISTORY OF OTHER DISEASES OF THE CIRCULATORY SYSTEM SNOMED Code(s): 883119143 (20) Hyperlipidemia Current Visit: No Status: Acute Code(s): E78.5 - HYPERLIPIDEMIA, UNSPECIFIED SNOMED Code(s): 59462589 (21) HTN (hypertension) Current Visit: No Status: Chronic Code(s): I10 - ESSENTIAL (PRIMARY) HYPERTENSION SNOMED Code(s): 21412782 Plan: Plan: 1. Patient has a significant medical history regards to his spine. He has previously went through multiple surgical interventions at his spine which includes L3-S1 lumbar fusion with retained hardware, C4-5 and C5-6 disc replacement with retained hardware, and neurostimulator placement with retained hardware and battery. He continues to follow with Dr. Loaiza in regards to his spine in the outpatient setting. He also follows with an outpatient pain clinic. He is currently scheduled to undergo cervical ablation in approximately week and a half in the outpatient setting. Patient would like to continue following with his spine surgeon as well as his outpatient pain management clin ic following discharge from the hospital. He presented to [facility] after new acute onset symptoms which includes thoracolumbar pain, severe right lower extremity radiculopathy with range of motion, episodes of loss of bladder and bowel, saddle sensation changes, and current urinary retention. CT imaging of the lumbar spine shows his postoperative change and evidence of neurostimulator placement without evidence of significant herniated nucleus pulposus or canal stenosis. Patient states he is able to have her MRI imaging if his neurostimulator is turned off that he's had difficulty having MRI imaging performed when neurostimulator clearance representative has not been readily available. He has had CT myelogram imaging in the past without difficulty. He will be willing to proceed forward with CT myelogram imaging. We did discuss his chronic symptoms in detail and his curre nt imaging and surgical history. Given his new symptoms and lack of significant findings on lumbar CT imaging, we feel it is warranted and necessary for him to have CT myelogram imaging of his thoracic spine and lumbar spine to rule out cauda equina syndrome, herniated nucleus pulposus, or spinal stenosis. This imaging has been ordered. We will plan to review this imaging and will determine plan of care proceeding forward depending on results of his imaging. Patient feels this is a good plan of care would like to proceed forward with this imaging. We will continue to follow patient closely. 2. Patient will continue be seen examined by medicine for his other diagnoses. 3. Patient currently waiting for consultation with pain management. I reviewed the imaging and discussed patient of. We have planned for a CT myelogram of thoracic and lumbar spine. We'll have further amputation space on those results. He should continue his current management. Time with Patient: Greater than 30 (Including obtaining history, physical examination, reviewing of imaging, and dictation.)
--- NOTE | 2022-10-21 10:42 | P.GSCN ---
History of Present Illness Consult date: 10/21/22 Reason for Consult: Urine retention Requesting physician: González Muñiz History of present illness: The patient is a 56-year-old male with an extensive past medical history including asthma, CAD, diabetes mellitus, GI bleed, hyperlipidemia, hypertension, myocardial infarction, mitral valve prolapse, PE, and JARED. He p resented to the emergency department on 10/20/22 for neck pain and lower back pain. The patient attempted to move a couch the previous day and developed severe pain to the right side of the neck radiating to the right shoulder. He also developed pain in the lower back and numbness in the right leg. He also experienced loss of bowel and bladder control. He has a history of cauda equina, most recently in 2018, and states that this feels that the same. This was able to be treated medically with steroids at that time. Currently follows with appraisal specialist, Dr. Loaiza, at [place]. The patient is being followed by orthopedics. Given his new symptoms and lack of significant findings on lumbar CT imaging, we feel it is warranted and necessary for him to have CT myelogram imaging of his thoracic spine and lumbar spine to rule out cauda equina syndrome, herniated nucleus pulposus, or spinal stenosis. The patient reports difficulty with urination and incontinence. Per the EMR, the patient also had urinary retention with a bladder scan of 737 mL resulting in placement of a Jaramillo catheter. We are consulted for this reason. Review of Systems - Constitutional Reports chronic pain - Gastrointestinal Denies nausea, Denies vomiting - Genitourinary Reports incontinence - Musculoskeletal Reports leg numbness/tingling, Reports neck pain Past Medical History Past Medical History: Asthma, Coronary Artery Disease (CAD), Chest Pain / Angina, Diabetes Mellitus, GERD/Reflux, GI Bleed, Hyperlipidemia, Hypertension, Myocardial Infarction (MN), Mitral Valve Prolapse (MVP), Pulmonary Embolus (PE), Sleep Apnea/CPAP/BIPAP Additional Past Medical History / Comment(s): Asthmatic bronchitis-chronic, IDDM type II, neuropathy bilateral feet, lower and upper GI bleeds, PUD, diverticulitis, colectomy d/t benign mass/intusseption, BPH, renal cysts, nephrolithiais, UTI with sepsis, chronic back pain 2ndary to herniated lumbar discs/sciatica, JARED does not use his Cpap, MVP, murmur Last Myocardial Infarction Date:: 2011 History of Any Multi-Drug Resistant Organisms: C-DIFF, MRSA Year Discovered:: 2016 MDRO Source:: left axilla Past Surgical History: Appendectomy, Back Surgery, Cholecystectomy, Heart Catheterization, Hernia Repair Additional Past Surgical History / Comment(s): Lumbar decompression/fusion/laminectomy, spinal stimulator, T lift procedure, L inguinal hernia repair, multiple ESWLs/stents/double J caths, colonoscopy, 02/2020 colectomy, EGDs for food obstructions and dilations Past Anesthesia/Blood Transfusion Reactions: No Reported Reaction Past Psychological History: No Psychological Hx Reported Smoking Status: Never smoker Past Alcohol Use History: None Reported Past Drug Use History: None Reported - Past Family History Father Family Medical History: Chest Pain / Angina Additional Family Medical History / Comment(s): "lung problems" Mother Family Medical History: Cancer, Chest Pain / Angina, Congestive Heart Failure (CHF), Osteoarthritis (OA), Thyroid Disorder Additional Family Medical History / Comment(s): "female cancer" Medications and Allergies Home Medications Medication Instructions Recorded Confirmed Type Insulin Lispro [humaLOG Kwikpen] See Protocol SQ ACHS 06/16/21 10/20/22 History oxyCODONE-APAP 5-325MG [Percocet 1 tab PO Q6H 09/12/21 10/20/22 History 5-325 mg] Gabapentin [Neurontin] 400 mg PO TID 12/25/21 10/20/22 History Aspirin EC [Ecotrin Low Dose] 81 mg PO DAILY 05/23/22 10/20/22 History Atorvastatin Calcium [Lipitor] 40 mg PO HS 05/23/22 10/20/22 History Baclofen 10 mg PO TID 05/23/22 10/20/22 History Empagliflozin [Jardiance] 25 mg PO DAILY 05/23/22 10/20/22 History Metoprolol Tartrate [Lopressor] 50 mg PO BID 05/23/22 10/20/22 History Omeprazole Magnesium [PriLOSEC OTC] 20 mg PO DAILY PRN 05/23/22 10/20/22 History lisinopriL [Zestril] 5 mg PO BID 05/23/22 10/20/22 History Insulin Glargine,Hum.rec.anlog 24 units SQ BID 10/20/22 10/20/22 History [Lantus Solostar Pen] Ondansetron Odt [Zofran Odt] 4 mg PO Q6H PRN 10/20/22 10/20/22 History Allergies Allergy/AdvReac Type Severity Reaction Status Date / Time doxycycline Allergy Swelling Verified 10/20/22 20:30 ketorolac tromethamine Allergy Rash/Hives Verified 10/20/22 20:30 [From Toradol] morphine Allergy Rash/Hives Verified 10/20/22 20:30 metoclopramide HCl AdvReac Dystonic Verified 10/20/22 20:30 [From Reglan] Reaction prochlorperazine edisylate AdvReac Dystonic Verified 10/20/22 20:30 [From Compazine] Reaction prochlorperazine maleate AdvReac Dystonic Verified 10/20/22 20:30 [From Compazine] Reaction Surgical - Exam Vital Signs Temp Pulse Resp BP Pulse Ox 98.3 F 120 H 20 151/99 97 10/20/22 13:54 10/20/22 13:54 10/20/22 13:54 10/20/22 13:54 10/20/22 13:54 General: Well developed, well nourished. No acute distress. HEENT: Head is atraumatic, normocephalic. Lungs: Respirations even and nonlabored. Abdomen/GI: Soft, non-distended. : Jaramillo catheter draining clear yellow urine; Normal scrotum and testes. ROSS: Diminished sphincter tone, no recetal mass. Prostate moderately enlarged and smooth. Skin: Warm and dry Neurologic: Alert and oriented 3 Psychiatric: Appears anxious Results - Labs 10/21/22 06:54 10/21/22 06:54 Abnormal Lab Results - Last 24 Hours (Table) 10/20/22 10/20/22 10/21/22 Range/Units 16:57 21:57 06:54 Lymphocytes # 0.9 L (1.0-4.8) k/uL Sodium (137-145) mmol/L Carbon Dioxide (22-30) mmol/L Creatinine (0.66-1.25) mg/dL Glucose (74-99) mg/dL POC Glucose (mg/dL) 388 H (70-110) mg/dL Ur Specific [place] 1.044 H (1.001-1.035) Urine Glucose (UA) 4+ H (Negative) Urine Ketones 1+ H (Negative) 10/21/22 10/21/22 Range/Units 06:54 07:01 Lymphocytes # (1.0-4.8) k/uL Sodium 133 L (137-145) mmol/L Carbon Dioxide 16 L (22-30) mmol/L Creatinine 0.48 L (0.66-1.25) mg/dL Glucose 287 H (74-99) mg/dL POC Glucose (mg/dL) 279 H (70-110) mg/dL Ur Specific [place] (1.001-1.035) Urine Glucose (UA) (Negative) Urine Ketones (Negative) Diabetes panel 10/21/22 Range/Units 06:54 Sodium 133 L (137-145) mmol/L Potassium 4.7 (3.5-5.1) mmol/L Chloride 104 (98-107) mmol/L Carbon Dioxide 16 L (22-30) mmol/L BUN 14 (9-20) mg/dL Creatinine 0.48 L (0.66-1.25) mg/dL Glucose 287 H (74-99) mg/dL Calcium 9.0 (8.4-10.2) mg/dL AST 25 (17-59) U/L ALT 35 (4-49) U/L Alkaline Phosphatase 86 (38-126) U/L Total Protein 6.6 (6.3-8.2) g/dL Albumin 3.9 (3.5-5.0) g/dL Calcium panel 10/21/22 Range/Units 06:54 Calcium 9.0 (8.4-10.2) mg/dL Albumin 3.9 (3.5-5.0) g/dL Pituitary panel 10/21/22 Range/Units 06:54 Sodium 133 L (137-145) mmol/L Potassium 4.7 (3.5-5.1) mmol/L Chloride 104 (98-107) mmol/L Carbon Dioxide 16 L (22-30) mmol/L BUN 14 (9-20) mg/dL Creatinine 0.48 L (0.66-1.25) mg/dL Glucose 287 H (74-99) mg/dL Calcium 9.0 (8.4-10.2) mg/dL Adrenal panel 10/21/22 Range/Units 06:54 Sodium 133 L (137-145) mmol/L Potassium 4.7 (3.5-5.1) mmol/L Chloride 104 (98-107) mmol/L Carbon Dioxide 16 L (22-30) mmol/L BUN 14 (9-20) mg/dL Creatinine 0.48 L (0.66-1.25) mg/dL Glucose 287 H (74-99) mg/dL Calcium 9.0 (8.4-10.2) mg/dL Total Bilirubin 0.9 (0.2-1.3) mg/dL AST 25 (17-59) U/L ALT 35 (4-49) U/L Alkaline Phosphatase 86 (38-126) U/L Total Protein 6.6 (6.3-8.2) g/dL Albumin 3.9 (3.5-5.0) g/dL - Imaging US - abdomen: report reviewed Assessment and Plan Assessment: The patient reports a history of multiple kidney stones requiring surgical intervention. The patient has not had any kidney stones and several years and was last seen at [facility] by Dr. Wilder. The patient also reports having previous voiding difficulties with prior back injuries. He is able to WAY, but great reports pain with right leg movement. He also reports bowel and bladder incontinence twice since this back injury. Digital rectal exam by Dr. Ac reveals a moderately enlarged prostate, no nodules, and a diminished sphincter tone. Patient is to have a CT myelogram of his thoracic and lumbar spine. Recommend maintaining his Jaramillo catheter until imaging completed and lower extremities symptoms improve. Plan: - Awaiting CT myelogram - Maintain Jaramillo catheter until lower extremity symptoms improve Thank you for this consultation Impression and plan of care have been directed as dictated by the signing physician. Rosemarie Cheng nurse practitioner acting as scribe for signing physician. Rosemarie Cheng [facility] Palliative Care/Urology [place]ink [phone] Email: [email or web address] I have personally seen and examined the patient, reviewed the documentation and agree with the assessment and plan as written. Number of minutes spent on the visit: 35. Rickey Ac MD Time with Patient: Greater than 30
[2022-10-21 11:19] LABS: Glucose,Whole Blood 342 mg/dL (70-110)
--- NOTE | 2022-10-21 12:47 | P.PN ---
Subjective Progress Note Date: 10/21/22 History of present illness; patient is a 56-year-old male with an extensive past medical history including asthma, CAD, diabetes mellitus, GI bleed, hyperlipidemia, hypertension, myocardial infarction, mitral valve prolapse, PE, and JARED. He presented to the emergency department on 10/20/22 for neck pain and lower back pain. The patient attempted to move a couch the previous day and developed severe pain to the right side of the neck radiating to the right shoulder. He also developed pain in the lower back and numbness in the right leg. He also experienced loss of bowel and bladder control. He has a history of cauda equina, most recently in 2018, and states that this feels that the same. 10/21. Patient seen and examined. Still complaining of back pain and numbness of the right lower extremity. Denies any new weakness. Complaining of loss of bowel or urine control. REVIEW OF SYSTEMS: CONSTITUTIONAL: No fever, no malaise,. CARDIOVASCULAR: No chest pain, no palpitations, no syncope. PULMONARY: No shortness of breath, no cough, GASTROINTESTINAL: no nausea, no vomiting, no abdominal pain. Complaining of fecal incontinence yesterday NEUROLOGICAL: No headaches, no weakness, PHYSICAL EXAMINATION: GENERAL: The patient is alert and oriented x3, not in any acute distress. Well developed, well nourished. HEENT: Pupils are round and equally reacting to light. EOMI. No scleral icterus. No conjunctival pallor. Normocephalic, atraumatic. No pharyngeal erythema. No thyromegaly. CARDIOVASCULAR: S1 and S2 present. No murmurs, rubs, or gallops. PULMONARY: Chest is clear to auscultation, no wheezing or crackles. ABDOMEN: Soft, nontender, nondistended, normoactive bowel sounds. No palpable organomegaly. MUSCULOSKELETAL: No joint swelling or deformity. EXTREMITIES: No cyanosis, clubbing, or pedal edema. NEUROLOGICAL: Gross neurological examination did not reveal any focal deficits. SKIN: No rashes. Assessment and plan Acute on chronic right-sided cervical pain and right shoulder pain currently being managed the outpatient setting Acute on chronic low back pain Status post injury while lifting couch 2 days ago Thoracolumbar pain Acute right lower extremity radiculopathy Possible cauda equina History of cauda equina 2018 Episode of loss of bladder 2 yesterday, 10/20/2022 Episode of loss of bowel 2 yesterday, 10/20/2022 History of cauda equina syndrome in 2018 Current urinary retention with Jaramillo catheter intact Difficulties with mobility of the right lower extremity due to pain History L3-S1 lumbar fusion with retained hardware History C4-5 and C5-6 disc replacement with retained hardware History of neurostimulator placement with retained hardware and battery Coronary artery disease Diabetes mellitus Hyperlipidemia Hypertension History of myocardial infarction History of GI bleed History of pulmonary embolism Plan; Monitor vital signs Monitor CBC Monitor CMP CT myelogram of the thoracic and lumbar spine ordered Continue pain management Continue bowel regimen Continue home Follow-up on orthopedic recommendations Urology consulted, they recommend maintaining Jaramillo catheter for now DVT prophylaxis: Objective - Vital Signs Vital signs: Vital Signs Temp 97.9 F 10/21/22 07:26 Pulse 99 10/21/22 07:26 Resp 20 10/21/22 07:26 BP 157/78 10/21/22 07:26 Pulse Ox 97 10/21/22 07:26 FiO2 Intake & Output 10/20/22 10/21/22 10/21/22 18:59 06:59 18:59 Intake Total 1080 Output Total 737 2900 500 Balance -737 -1820 -500 Weight 122.016 kg 122.016 kg Intake: Oral 1080 Output: Urine 2900 500 Post Void Residual 737 Other: Voiding Method Indwelling Catheter - Labs CBC & Chem 7: 10/21/22 06:54 10/21/22 06:54 Labs: Abnormal Lab Results - Last 24 Hours (Table) 10/20/22 10/20/22 10/21/22 Range/Units 16:57 21:57 06:54 Lymphocytes # 0.9 L (1.0-4.8) k/uL Sodium (137-145) mmol/L Carbon Dioxide (22-30) mmol/L Creatinine (0.66-1.25) mg/dL Glucose (74-99) mg/dL POC Glucose (mg/dL) 388 H (70-110) mg/dL Ur Specific [place] 1.044 H (1.001-1.035) Urine Glucose (UA) 4+ H (Negative) Urine Ketones 1+ H (Negative) 10/21/22 10/21/22 Range/Units 06:54 07:01 Lymphocytes # (1.0-4.8) k/uL Sodium 133 L (137-145) mmol/L Carbon Dioxide 16 L (22-30) mmol/L Creatinine 0.48 L (0.66-1.25) mg/dL Glucose 287 H (74-99) mg/dL POC Glucose (mg/dL) 279 H (70-110) mg/dL Ur Specific [place] (1.001-1.035) Urine Glucose (UA) (Negative) Urine Ketones (Negative)
[2022-10-21] MEDS ORDERED: PANTOPRAZOLE 40 MG TABLET PO PRN (13:00)
--- NOTE | 2022-10-21 15:48 | FL ---
INDICATION: Patient age:Male; 56 years old; Reason for study: R/O cauda equina,R LE radiculop, Urinary retention; PHH, with history of lumbar and thoracic R/O cauda equina,R LE radiculop, Urinary retention. COMPARISON: CT lumbar spine study from 10/20/2022. After the procedure was explained and informed consent was obtained from the patient, the patient was prepped and draped in the usual sterile fashion. Patient was put in the prone position and the lower lumbar spine was imaged. 1% Lidocaine was used as local anesthetic using a 25 gauge needle. A 22 gau 23press spinal needle was then advanced into the thecal sac using fluoroscopic guidance. Approximately 18 cc of M200 contrast was injected into the thecal sac. The needle was then removed and a Band-Aid was applied. The patient tolerated procedure well. The patient was then sent to the CT unit for CT exam. Postsurgical changes of the lumbar spine with bilateral pedicular screws and rods involving L3-S1 wit h interdisc spacer. Fluoroscopic time: 15 seconds Fluoroscopic images: 4 IMPRESSIONS: Successful myelogram with CT myelogram to follow.
--- NOTE | 2022-10-21 15:56 | CT ---
EXAMINATION TYPE: CT thor lumbar spine w con CT DLP: 3220.5 mGycm, Automated exposure control for dose reduction was used. DATE OF EXAM: 10/21/2022 3:30 PM COMPARISON: 4 stable bowing of 10/21/2022, CT lumbar spine 10/20/2022.. CLINICAL INDICATION:Male, 56 years old with history of pain; PHH, Myelogram TECHNIQUE: Multiple axial images were obtained of the thoracic and lumbar spine after fluoroscopic m yelogram. Soft tissue and bone windows in coronal and sagittal planes were obtained and reviewed. FINDINGS: Alignment: There are 5 lumbar type vertebral bodies within normal alignment. Bone: No evidence of fracture is identified. Postsurgical with bilateral pedicular screws and rods i nvolving L3-S1. Hardware appears intact. Limited RT changes demonstrated at L4-5 and L5-S1 Post surgi kamryn changes of the right iliac bone from harvesting. Discs: Conus medullaris terminates at T12-L1. Thoracic discs: Stimulator lead is demonstrated terminating at T9 and is posterior to the thecal sac. No significant central canal or neural foraminal stenosis identified involving the thoracic spine. Lumbar discs: T12-L1: No spinal canal or neural foraminal stenosis is identified. L1-L2: No spinal canal or neural foraminal stenosis is identified. L2-L3: No central canal stenosis. The neural foramen are patent bilaterally. L3-L4: Post surgical changes with bilateral pedicular screws in place. Disc spacer identified. No rehana tral canal stenosis. The neural foramen are patent bilaterally. L4-L5: Postsurgical changes from laminectomy with pedicular screws in place. No central canal stenos is. The neural foramen are patent bilaterally. L5-S1: Postsurgical changes from laminectomy with pedicular screws in place. No central canal stenosi s. The neural foramen are patent bilaterally. Other: Right renal cyst measuring up to 3.6 cm. Electronic device demonstrated within the left glutea l soft tissues extending into the spinal canal and terminating at the T9 vertebral body. IMPRESSION: 1. No evidence of fracture of the lumbar spine. 2. No significant central canal or neural foraminal stenosis involving the thoracolumbar spine. 3. Postsurgical changes of L3-S1. Hardware appears intact.
[2022-10-21] MEDS: GABAPENTIN 400 MG CAP PO SCH ×2 (16:08→21:01)
[2022-10-21] MEDS: BACLOFEN 10 MG TAB PO SCH ×2 (16:08→21:01)
[2022-10-21 17:08] LABS: Glucose,Whole Blood 348 mg/dL (70-110)
[2022-10-21 21:01] LABS: Glucose,Whole Blood 343 mg/dL (70-110)
[2022-10-21] MEDS: lisinopriL 5 MG TAB PO SCH (21:01)
[2022-10-21] MEDS: ATORVASTATIN 40 MG TAB PO SCH (21:01)
[2022-10-21] MEDS: METOPROLOL TARTRATE 50 MG TAB PO SCH (21:01)
[2022-10-21] MEDS ORDERED: CYCLOBENZAPRINE 10 MG TAB PO SCH ×2 (21:30→22:00)
[2022-10-21] MEDS: INSULIN DETEMIR (LEVEMIR) 100 UNIT/ML SYR SQ SCH (21:38)
[2022-10-22] MEDS: HYDROmorphone 1 MG/ML 1 ML SYRINGE IVP PRN ×7 (01:20→20:54)
[2022-10-22 07:59] LABS: Glucose,Whole Blood 209 mg/dL (70-110)
[2022-10-22] MEDS: GABAPENTIN 400 MG CAP PO SCH ×3 (08:13→20:53)
[2022-10-22] MEDS: DAPAGLIFLOZIN PROPANEDIOL 10 MG TABLET PO SCH (08:13)
[2022-10-22] MEDS: TAMSULOSIN 0.4 MG CAP.ER.24H PO SCH (08:13)
[2022-10-22] MEDS: INSULIN ASPART (NovoLOG) 100 UNIT/ML VIAL SQ SCH ×4 (08:13→22:36)
[2022-10-22] MEDS: METOPROLOL TARTRATE 50 MG TAB PO SCH ×2 (08:13→20:53)
[2022-10-22] MEDS: lisinopriL 5 MG TAB PO SCH ×2 (08:13→20:53)
[2022-10-22] MEDS: BACLOFEN 10 MG TAB PO SCH ×3 (08:13→20:53)
[2022-10-22] MEDS: INSULIN DETEMIR (LEVEMIR) 100 UNIT/ML SYR SQ SCH ×2 (08:14→22:36)
[2022-10-22] MEDS ORDERED: ASPIRIN 81 MG PO SCH (09:00)
[2022-10-22 09:26] LABS: HCT 41.5 % (39.0-53.0); HGB 14.5 gm/dL (13.0-17.5); MCH 29.4 pg (25.0-35.0); Mean Platelet Volume 7.3; Platelet Count 204 k/uL (150-450); RBC 4.95 m/uL (4.30-5.90); RDW 13.4 % (11.5-15.5); WBC 6.2 k/uL (3.8-10.6)
[2022-10-22 09:50] LABS: ALT 32 U/L (4-49); AST 27 U/L (17-59); African American GFR (CKD) >90 (>60 ml/min/1.73 sqM); Albumin 3.5 g/dL (3.5-5.0); Albumin/Globulin Ratio 1.4; Alkaline Phosphatase 79 U/L (38-126); Anion Gap 8 mmol/L; Blood Urea Nitrogen 15 mg/dL (9-20); Carbon Dioxide 23 mmol/L (22-30); Chloride 104 mmol/L (98-107); Globulin 2.5 g/dL; Glucose 256 mg/dL (74-99); Non-African American GFR(CKD) >90 (>60 ml/min/1.73 sqM); Potassium 4.1 mmol/L (3.5-5.1); Sodium 135 mmol/L (137-145); Total Bilirubin 0.8 mg/dL (0.2-1.3)
--- NOTE | 2022-10-22 10:06 | P.PN ---
Progress Note - Text Progress Note Date: 10/22/22 Orthopedic spine: History of present illness: Patient is a very pleasant 56-year-old male who is seen and the bedside for follow-up evaluation of his spine. Since being seen and examined yesterday, he underwent CT myelogram of the thoracic and lumbar spines. He has not had any significant change in regards to his symptoms as compared to yesterday. He has a significant history regards to his spine. He states approximately 3 days ago he was moving a couch and has had some increased pain since that time. He's been experiencing some pain towards the right side of his cervical spine and right shoulder. More significantly, he's been experiencing increased thoracic and lumbar pain with significant pain radiating down his right lower extremity. He has difficulty with active range of motion of his right lower extremity due to his pain. He states prior to his presentation to the emergency department he had 2 episodes of loss of bowel and 2 episodes of loss of bladder. He is now experiencing urinary retention. Jaramillo catheter has been placed. He denies specific lower extremity or upper extremity weakness bilaterally. He does feel weakness in the right lower extremity due to pain. He does continue to have some pain with active range of motion of his right lower extremity. He states he does have some different saddle sensation. We did discuss his CT myelogram of the thoracic and lumbar spine and significant detail. We did discuss there is no evidence of significant stenosis throughout his thoracic or lumbar spines. Patient states he thought this may be the case. He also states he would like to continue following with his spine surgeon along with his spray painting machine operator in the outpatient setting. Consultation has been placed with urology. He was seen and evaluated yesterday. Patient states states urology was unsure of the exact cause of his retention given his history of cauda equina past with some difficulty with urination, current enlarged prostate and his significant history in regards to his lumbar spine. Urology was planning to keep the Jaramillo catheter intact until his CT myelogram of the thoracic and lumbar spine had been completed and reviewed. He has been started on Flomax. Patient states he would like this to be discontinued today. Patient had also reported to urology that he has history of surgical intervention for kidney stones. He is currently receiving IV Dilaudid for pain control. He is comfortable at the bedside. Patient history: In regards to his spine, he has a history of previous C4-5 and C5-6 disc replacement surgery. He has had multiple surgical interventions at his lumbar spine. He previously underwent surgical intervention [address] Loaiza. He subsequently underwent an L3-S1 lumbar fusion in [address] Bowie, who has since left the area. He is now following with Dr. Loaiza again in the outpatient setting. He would like to continue following with him in regards to spine treatment. He also follows with a spray painting machine operator in the outpatient setting. He has had significant evaluation for his cervical spine. He has worked through 6 weeks of physical therapy without significant improvement. He states he is currently scheduled to undergo cervical ablation in approximately a week and a half in the outpatient setting. Patient also has a neurostimulator placed. Battery is intact. This neurostimulator continues to function but states today he has had a turned off over the past couple months as he found it less effective than it used to be. He states he has reached out to see if this can be adjusted so he may resume its use. Patient states he has a history of cauda equina syndrome in 2018. However, he states he was previously able to resume normal urinary function prior to the onset of these new symptoms. Physical exam: Patient is awake, alert, and oriented 3 Vital signs stable Good chest excursion with deep inspiration and expiration Examination of thoracic and lumbar spine reveals skin is intact with no abrasions, lacerations, or bruises; no erythema, purulence or signs of infection Multiple well-healed incisions; 3 well-healed incisions on the midline and paraspinals of the lumbar spine; evidence of a midline healed incision of the mid to lower thoracic spine; evidence of a well-healed incision over the left flank with neurostimulator battery placement Significant increased pain in the right lower extremity pain throughout active range of motion of the right lower extremity Increased right lower extremity pain with passive range of motion of the right lower extremity Increased right lower extremity leg pain with Lasegue's testing. Active full range of motion of the right lower extremity actively and passively without difficulty Patient is able to perform dorsiflexion and plantarflexion bilaterally but has significant increased pain of the right lower extremity when doing so on the right No lower extremity hyperreflexia bilaterally No signs or symptoms of DVT; no calf pain No pain with internal and external rotation of the hips bilaterally Neurovascularly intact Jaramillo catheter intact Pertinent studies: CT myelogram of the thoracic and lumbar spines taken on 10/22/2022: No evidence of significant spinal stenosis about the thoracic or lumbar spine; no evidence of compression fracture deformity; postoperative change with retained hardware L3-S1; evidence of neurostimulator placement CT of the cervical spine taken on 10/20/2022: Evidence of postoperative change with disc replacement at C4-5 and C5-6 which appears to be in adequate position; C6-7 mild degenerative disc disease; C3-4 anterior osteophytic spurring; loss of cervical lordosis; no obvious herniated nucleus pulposus or canal stenosis CT of the lumbar spine taken on 10/20/2022: Evidence of postoperative change with retained hardware L3-S1 with rods and screws intact; L3-4 interbody device intact; partially visualized neurostimulator placement covering at least T10-11; evidence of neurostimulator battery placement in the left flank; no vertebral body compression fracture; no obvious spinal stenosis or large herniated nucleus pulposus Assessment: No evidence of thoracic or lumbar stenosis to correlate with cauda equina Acute on chronic right-sided cervical pain and right shoulder pain currently being managed the outpatient setting Acute on chronic low back pain Status post injury while lifting couch 3 days ago Thoracolumbar pain Acute right lower extremity radiculopathy History of cauda equina 2018 Episode of loss of bladder 2 yesterday, 10/20/2022 Episode of loss of bowel 2 yesterday, 10/20/2022 History of cauda equina syndrome in 2018 Saddle and station changes Current urinary retention with Jaramillo catheter intact Difficulties with mobility of the right lower extremity due to pain History L3-S1 lumbar fusion with retained hardware History C4-5 and C5-6 disc replacement with retained hardware History of neurostimulator placement with retained hardware and battery Coronary artery disease Diabetes mellitus Hyperlipidemia Hypertension History of myocardial infarction History of GI bleed History of pulmonary embolism Enlarged prostate History of kidney stones requiring surgical intervention Plan: 1. Patient has a significant medical history regards to his spine. He has previously went through multiple surgical interventions at his spine which includes L3-S1 lumbar fusion with retained hardware, C4-5 and C5-6 disc replacement with retained hardware, and neurostimulator placement with retained hardware and battery. He presented to [facility] after new acute onset symptoms which includes thoracolumbar pain, severe right lower extremity radiculopathy with range of motion, episodes of loss of bladder and bowel, saddle sensation changes, and current urinary retention. CT imaging of the lumbar spine shows his postoperative change and evidence of neurostimulator placement without evidence of significant herniated nucleus pulposus or canal stenosis. Yesterday he underwent thoracic and lumbar CT myelogram imaging which did not show any evidence of significant spinal canal stenosis or significant herniated nucleus pulposus throughout the thoracic or lumbar spines. We discussed his previous CT and CT myelogram imaging in significant detail. We did discuss his chronic symptoms in detail and his current imaging and surgical history. After reviewing all of his imaging, currently, we are not planning for any acute surgical intervention in regards to his thoracic or lumbar spines. He does not have evidence of spinal stenosis at his thoracic or lumbar spines. There are not root indications which surgical intervention would provide any significant movement of his symptoms is difficult to determine the exact cause of his current symptoms. Patient states he is happy with the results of his CT myelogram imaging. He would prefer to follow-up in the outpatient setting with his known spine surgeon, Dr. Loaiza, as well as his spray painting machine operator. He is currently scheduled to undergo cervical ablation in approximately week and a half in the outpatient setting. He states he is also been in contact with the customer development representative for his neurostimulator about adjusting the settings and restarting the use of the stimulator. From an orthopedic spine standpoint, patient is clear for discharge. He would plan to follow up with us in the outpatient setting only on an as-needed basis. 2. In regards to his urinary retention, it is difficult to determine exact cause of this retention, but it does not appear to be specifically related to his thoracic or lumbar spines. He has been seen by neurology and started on Flomax. Jaramillo catheter remains intact. Urology may plan to discontinue his Jaramillo catheter today to see the patient is able to void independently. Patient had stated following evaluation with urology, urology unsure if his symptoms were in relation to his history of cauda equina syndrome in 2018, in regards to his significant history at his lumbar spine, or possibly due to his enlarged prostate. Urology was planning for further evaluation until the completion and review of his CT myelogram of the thoracic and lumbar spines. On physical examination by urology, patient did have a large prostate. Patient also has a history of surgical intervention for kidney stones. At this time, we would defer treatment for his urinary retention to urology. 3. Patient will continue be seen examined by medicine for his other diagnoses.
[2022-10-22 11:41] LABS: Glucose,Whole Blood 212 mg/dL (70-110)
--- NOTE | 2022-10-22 16:12 | P.PN ---
Subjective Progress Note Date: 10/22/22 Principal diagnosis: Urinary retention The Jaramillo catheter remains in place, draining clear yellow urine. A CT myelogram performed yesterday showed no evidence of spinal stenosis. Patient continues to report lower extremity symptoms. Objective - Vital Signs Vital signs: Vital Signs Temp 98.4 F 10/22/22 13:10 Pulse 81 10/22/22 13:10 Resp 18 10/22/22 13:10 BP 122/77 10/22/22 13:10 Pulse Ox 95 10/22/22 13:10 FiO2 Intake & Output 10/21/22 10/22/22 10/22/22 18:59 06:59 18:59 Intake Total 1200 Output Total 2325 1700 1100 Balance -2325 -500 -1100 Intake: Oral 1200 Output: Urine 2325 1700 1100 Uretheral (Jaramillo) 650 1700 Other: Voiding Method Indwelling Catheter Indwelling Catheter Indwelling Catheter - Constitutional General appearance: Present: average body habitus, no acute distress - Respiratory Details: Normal respiratory effort - Gastrointestinal Gastrointestinal Comment(s): Soft, non-tender, no mass - Psychiatric Psychiatric: Present: A&O x's 3 - Labs CBC & Chem 7: 10/22/22 08:49 10/22/22 08:49 Labs: Abnormal Lab Results - Last 24 Hours (Table) 10/21/22 10/21/22 10/22/22 Range/Units 17:06 21:00 07:58 Sodium (137-145) mmol/L Creatinine (0.66-1.25) mg/dL Glucose (74-99) mg/dL POC Glucose (mg/dL) 348 H 343 H 209 H (70-110) mg/dL Hemoglobin A1c (0.0-6.0) % Total Protein (6.3-8.2) g/dL 10/22/22 10/22/22 10/22/22 Range/Units 08:49 08:49 11:40 Sodium 135 L (137-145) mmol/L Creatinine 0.54 L (0.66-1.25) mg/dL Glucose 256 H (74-99) mg/dL POC Glucose (mg/dL) 212 H (70-110) mg/dL Hemoglobin A1c 11.2 H (0.0-6.0) % Total Protein 6.0 L (6.3-8.2) g/dL Assessment and Plan Assessment: The cause of Mr. Morales's urinary retention is indeterminate at this time. Plan: - Continue tamsulosin - Remove Jaramillo catheter on October 24 for voiding trial
[2022-10-22 16:17] VITALS: BMI 37.5
[2022-10-22 17:30] LABS: Glucose,Whole Blood 174 mg/dL (70-110)
--- NOTE | 2022-10-22 17:48 | XR ---
EXAMINATION TYPE: XR chest 2V DATE OF EXAM: 10/22/2022 5:14 PM COMPARISON: Chest x-ray 05/23/2022 TECHNIQUE: XR chest 2V . CLINICAL INDICATION:Male, 56 years old with history of radha; FINDINGS: Lungs/Pleura: There is no evidence of pleural effusion, focal consolidation, or pneumothorax. Pulmonary vascularity: Unremarkable. Heart/mediastinum: Cardiomediastinal silhouette is unremarkable. Musculoskeletal: No acute osseous pathology. Partially visualized cervical hardware. Other findings: Spinal cord stimulator projects of the lower thoracic spine. IMPRESSION: No acute cardiopulmonary disease/process.
[2022-10-22 20:49] LABS: Glucose,Whole Blood 241 mg/dL (70-110)
[2022-10-22] MEDS: ATORVASTATIN 40 MG TAB PO SCH ×2 (20:52→20:53)
--- NOTE | 2022-10-22 22:39 | PN ---
PROGRESS NOTE SUBJECTIVE: This is a 56-year-old white male, still unable to move his right lower extremity more than a couple of inches. Dr. Pisano wants his Jaramillo catheter he left inside. Neurology was consulted due to difficulty with movement of his leg. His hemoglobin A1c is 11.2, will fine-tune his diabetes, sugars in the mid 2 to 300s. Thoracic lumbar spine reviewed. We will get Neurology involved as orthopedic surgery wants further workup for numbness in the right leg. Dr. Pisano says. Continue the Jaramillo catheter. Continue further workup why he can move his right leg. Prognosis guarded. OBJECTIVE: PSYCH: Fair mood and affect. CARDIOVASCULAR: S1, S2. LUNGS: Clear. GI: Soft. Hematologic is 2+. Able to straight leg raise test up to, lying flat on the bed up to 2-3 inches off the ground on the right leg, about 5 inches on the left leg. Prognosis is guarded. Continue current treatment. MMODL / IJN: [id number] /
[2022-10-23] MEDS: HYDROmorphone 1 MG/ML 1 ML SYRINGE IVP PRN ×4 (00:29→11:27)
[2022-10-23 07:51] LABS: Glucose,Whole Blood 164 mg/dL (70-110)
[2022-10-23] MEDS: BACLOFEN 10 MG TAB PO SCH ×3 (08:06→21:12)
[2022-10-23] MEDS: DAPAGLIFLOZIN PROPANEDIOL 10 MG TABLET PO SCH (08:06)
[2022-10-23] MEDS: GABAPENTIN 400 MG CAP PO SCH ×3 (08:06→21:12)
[2022-10-23] MEDS: INSULIN DETEMIR (LEVEMIR) 100 UNIT/ML SYR SQ SCH ×2 (08:06→21:11)
[2022-10-23] MEDS: METOPROLOL TARTRATE 50 MG TAB PO SCH ×2 (08:06→21:11)
[2022-10-23] MEDS: INSULIN ASPART (NovoLOG) 100 UNIT/ML VIAL SQ SCH ×4 (08:06→21:10)
[2022-10-23] MEDS: lisinopriL 5 MG TAB PO SCH ×2 (08:06→21:11)
[2022-10-23] MEDS: TAMSULOSIN 0.4 MG CAP.ER.24H PO SCH (08:07)
[2022-10-23 10:03] LABS: ALT 34 U/L (4-49); AST 28 U/L (17-59); African American GFR (CKD) >90 (>60 ml/min/1.73 sqM); Albumin 3.5 g/dL (3.5-5.0); Albumin/Globulin Ratio 1.3; Alkaline Phosphatase 86 U/L (38-126); Anion Gap 9 mmol/L; Blood Urea Nitrogen 15 mg/dL (9-20); Calcium 8.8 mg/dL (8.4-10.2); Carbon Dioxide 21 mmol/L (22-30); Chloride 105 mmol/L (98-107); Globulin 2.6 g/dL; Glucose 157 mg/dL (74-99); Non-African American GFR(CKD) >90 (>60 ml/min/1.73 sqM); Potassium 4.2 mmol/L (3.5-5.1); Sodium 135 mmol/L (137-145); Total Bilirubin 0.7 mg/dL (0.2-1.3); Total Protein 6.1 g/dL (6.3-8.2)
[2022-10-23] MEDS ORDERED: ONDANSETRON ODT 4 MG TAB PO PRN (11:43)
[2022-10-23 11:59] LABS: Glucose,Whole Blood 178 mg/dL (70-110)
[2022-10-23] MEDS: oxyCODONE-APAP 5-325MG 1 EACH TAB PO SCH ×3 (13:00→23:59)
[2022-10-23] MEDS: methylPREDNISolone SOD SUCCI 125 MG/2 ML VIAL IV SCH ×2 (13:01→21:09)
[2022-10-23 14:21] LABS: Basophils % (A) 0 %; Eosinophils # (A) 0.2 k/uL (0-0.7); Eosinophils % (A) 2 %; HCT 42.3 % (39.0-53.0); HGB 14.4 gm/dL (13.0-17.5); Lymphocytes # (A) 1.7 k/uL (1.0-4.8); Lymphocytes % (A) 20 %; MCH 29.3 pg (25.0-35.0); MCV 86.1 fL (80.0-100.0); Mean Platelet Volume 6.9; Monocytes # (A) 0.4 k/uL (0-1.0); Monocytes % (A) 4 %; Neutrophils % (A) 72 %; Platelet Count 242 k/uL (150-450); RBC 4.91 m/uL (4.30-5.90); RDW 13.2 % (11.5-15.5); WBC 8.3 k/uL (3.8-10.6)
--- NOTE | 2022-10-23 14:37 | P.CNNES ---
History of Present Illness Consult date: 10/23/22 Requesting physician: González Muñiz Reason for Consult: lefg weakness History of Present Illness: (A 56-year-old gentleman with history of cauda equina syndrome status post surgery, multiple spinal surgeries and bladder stimulator who presented emergency department because right leg weakness, weird sensation in the groin region. Since this past he's been having right leg weakness and the has been having paresthesia. He stated that she was picking up a couch then he noticed that his right leg Became weak and weird sensation in that the inguinal region as well as some the numbness in the right thigh. It seems the patient has been having urinary retention for the past at least 3 days. He has chronic neck pain and stiffness central region as well as chronic lower back pain but he feels back pain in the lower back is radiating down over the anterior region. Today he stated that he had bowel movements. She states that whenever he he has an injury to his back will have urinary retention and this is not the first time that this happened and would take some time for her to improve. As a result patient has a Jaramillo catheter. As stated earlier patient at has noticed that the today there is somewhat improvement since has a bowel movement. He denies of any weakness in upper extremity that is new. Of note patient stated that he had a cauda equina in the past and had the emergent surgical intervention at [facility]. 2018 had L3 to S1 ruptured disks and had to be replaced. Because of 15 he had 2 herniated discs at to have surgery seems around his neck. 2019 he had a spinal stimulator. He also has a bad rotator cuff and needs the surgical intervention. He also has an ablation to the cervical neck pending to be done about in a month for now Some of the workup during his hospital visit consisted of: CT thoracic lumbar is reported as no evidence of fracture of the lumbar spine. No evidence of central canal neuroforaminal stenosis involving the thoracolumbar spine. Postsurgical changes L3 the to S1. Hardware appears intact. CT cervical spine was reported as no evidence for central stenosis or herniated disc. No evidence of fracture or malalignment. Postoperative changes with prosthetic disc material noted C4 C5 and C5-C6. T2 myelogram of the thoracic and lumbar region no evidence of signal spinal stenosis about the thoracic and or lumbar. No evidence of compression fracture deformity. Postoperative changes with retained hardware L3 S1. Evidence of neurostimulator placement reported by orthopedic team and it's reported also as postsurgical changes of lumbar spine with bilateral pedicular screws and rods involving L3-S1 with interdisc spacer. Review of Systems Review of system: The 12 point system was reviewed and apparent positive and negative per HPI. Past Medical History Past Medical History: Asthma, Coronary Artery Disease (CAD), Chest Pain / Angina, Diabetes Mellitus, GERD/Reflux, GI Bleed, Hyperlipidemia, Hypertension, Myocardial Infarction ([place]), Mitral Valve Prolapse (MVP), Pulmonary Embolus (PE), Sleep Apnea/CPAP/BIPAP Additional Past Medical History / Comment(s): Asthmatic bronchitis-chronic, IDDM type II, neuropathy bilateral feet, lower and upper GI bleeds, PUD, diverticulitis, colectomy d/t benign mass/intusseption, BPH, renal cysts, nephrolithiais, UTI with sepsis, chronic back pain 2ndary to herniated lumbar discs/sciatica, JARED does not use his Cpap, MVP, murmur Last Myocardial Infarction Date:: 2011 History of Any Multi-Drug Resistant Organisms: C-DIFF, MRSA Date of last positivie culture/infection: 2015 MDRO Source:: left axilla Past Surgical History: Appendectomy, Back Surgery, Cholecystectomy, Heart Catheterization, Hernia Repair Additional Past Surgical History / Comment(s): Lumbar decompression/fusion/laminectomy, spinal stimulator, T lift procedure, L in guinal hernia repair, multiple ESWLs/stents/double J caths, colonoscopy, 02/2020 colectomy, EGDs for food obstructions and dilations Past Anesthesia/Blood Transfusion Reactions: No Reported Reaction Past Psychological History: No Psychological Hx Reported Smoking Status: Never smoker Past Alcohol Use History: None Reported Past Drug Use History: None Reported - Past Family History Father Family Medical History: Chest Pain / Angina Additional Family Medical History / Comment(s): "lung problems" Mother Family Medical History: Cancer, Chest Pain / Angina, Congestive Heart Failure (CHF), Osteoarthritis (OA), Thyroid Disorder Additional Family Medical History / Comment(s): "female cancer" Medications and Allergies Home Medications Medication Instructions Recorded Confirmed Type Insulin Lispro [humaLOG Kwikpen] See Protocol SQ ACHS 06/16/21 10/20/22 History oxyCODONE-APAP 5-325MG [Percocet 1 tab PO Q6H 09/12/21 10/20/22 History 5-325 mg] Gabapentin [Neurontin] 400 mg PO TID 12/25/21 10/20/22 History Aspirin EC [Ecotrin Low Dose] 81 mg PO DAILY 05/23/22 10/20/22 History Atorvastatin Calcium [Lipitor] 40 mg PO HS 05/23/22 10/20/22 History Baclofen 10 mg PO TID 05/23/22 10/20/22 History Empagliflozin [Jardiance] 25 mg PO DAILY 05/23/22 10/20/22 History Metoprolol Tartrate [Lopressor] 50 mg PO BID 05/23/22 10/20/22 History Omeprazole Magnesium [PriLOSEC OTC] 20 mg PO DAILY PRN 05/23/22 10/20/22 History lisinopriL [Zestril] 5 mg PO BID 05/23/22 10/20/22 History Insulin Glargine,Hum.rec.anlog 24 units SQ BID 10/20/22 10/20/22 History [Lantus Solostar Pen] Ondansetron Odt [Zofran Odt] 4 mg PO Q6H PRN 10/20/22 10/20/22 History Allergies Allergy/AdvReac Type Severity Reaction Status Date / Time doxycycline Allergy Swelling Verified 10/20/22 20:30 ketorolac tromethamine Allergy Rash/Hives Verified 10/20/22 20:30 [From Toradol] morphine Allergy Rash/Hives Verified 10/20/22 20:30 metoclopramide HCl AdvReac Dystonic Verified 10/20/22 20:30 [From Reglan] Reaction prochlorperazine edisylate AdvReac Dystonic Verified 10/20/22 20:30 [From Compazine] Reaction prochlorperazine maleate AdvReac Dystonic Verified 10/20/22 20:30 [From Compazine] Reaction Physical Examination - Vital Signs Vital Signs: Vital Signs Temp Pulse Resp BP Pulse Ox 10/23/22 08:40 81 19 10/23/22 07:47 97.9 F 81 19 126/75 96 10/23/22 03:21 97.9 F 76 16 107/69 98 10/22/22 22:30 87 18 10/22/22 19:58 98.2 F 87 18 147/68 97 Intake and Output 10/22/22 10/23/22 10/23/22 22:59 06:59 14:59 Output Total 750 1300 Balance -750 -1300 Output: Urine 750 1300 Uretheral (Jaramillo) 1300 Other: Voiding Method Indwelling Catheter Indwelling Catheter Weight 122.016 kg GENERAL: The patient is lying in bed and is mild in acute distress. CHEST: The heart rate is regular rate rhythm. No murmurs to auscultation. LUNG: Clear to auscultation bilaterally no wheezing noted throughout. Not labored breathing. ABDOMEN/GI: Bowel sounds present in all 4 quadrants. No tenderness to palpation throughout. NEUROLOGICAL: Higher mental function: The patient is awake, alert, oriented to self, place and time. Patient is following commands. No aphasia and no neglect. Cranial nerves: The pupils are round, equal and reactive to light and accommodation. Visual turner are full to confrontation throughout. Extraocular movement is intact no nystagmus is noted. Facial sensation is normal to touch throughout. The facial strength is normal throughout. Hearing is normal bilaterally to hand rub. Tongue is midline and moved [id number] without any difficulty. No dysarthria is noted. Shoulder shrug is normal bilaterally. Motor: Gait is deferred because of weakness in lower. The strength is limited in right lower because of pain in back but has at least weak 3. Right upper is also limited because of shoulder pain (old) is at least 4+. Bilateral hand inspector conveyor line are 5/5. Left lower is 5/5 Has normal tone and bulk. Cerebellum: Normal finger to nose bilaterally. Sensation: Sensation is normal to touch throughout. Reflexes (right/left): Patellar are 2-3+ bilaterally. Ankles are 0-1 bilaterally. Otherwise 2+. Plantars is left is upgoing while right is mute. Rectal tone is poor. Results - Laboratory Findings CBC and BMP: 10/22/22 08:49 10/23/22 08:04 Abnormal Lab Findings: Abnormal Labs 10/20/22 10/20/22 10/21/22 16:57 21:57 06:54 Lymphocytes # 0.9 L Sodium Carbon Dioxide Creatinine Glucose POC Glucose (mg/dL) 388 H Hemoglobin A1c Total Protein Ur Specific [place] 1.044 H Urine Glucose (UA) 4+ H Urine Ketones 1+ H 10/21/22 10/21/22 10/21/22 06:54 07:01 11:18 Lymphocytes # Sodium 133 L Carbon Dioxide 16 L Creatinine 0.48 L Glucose 287 H POC Glucose (mg/dL) 279 H 342 H Hemoglobin A1c Total Protein Ur Specific [place] Urine Glucose (UA) Urine Ketones 10/21/22 10/21/22 10/22/22 17:06 21:00 07:58 Lymphocytes # Sodium Carbon Dioxide Creatinine Glucose POC Glucose (mg/dL) 348 H 343 H 209 H Hemoglobin A1c Total Protein Ur Specific [place] Urine Glucose (UA) Urine Ketones 10/22/22 10/22/22 10/22/22 08:49 08:49 11:40 Lymphocytes # Sodium 135 L Carbon Dioxide Creatinine 0.54 L Glucose 256 H POC Glucose (mg/dL) 212 H Hemoglobin A1c 11.2 H Total Protein 6.0 L Ur Specific [place] Urine Glucose (UA) Urine Ketones 10/22/22 10/22/22 10/23/22 17:29 20:47 07:50 Lymphocytes # Sodium Carbon Dioxide Creatinine Glucose POC Glucose (mg/dL) 174 H 241 H 164 H Hemoglobin A1c Total Protein Ur Specific [place] Urine Glucose (UA) Urine Ketones 10/23/22 10/23/22 08:04 11:57 Lymphocytes # Sodium 135 L Carbon Dioxide 21 L Creatinine 0.45 L Glucose 157 H POC Glucose (mg/dL) 178 H Hemoglobin A1c Total Protein 6.1 L Ur Specific [place] Urine Glucose (UA) Urine Ketones Assessment and Plan Assessment: This is a 56-year-old gentleman with history of cauda equina in the remote past that had that surgical intervention, multiple spinal surgeries, spinal stimulator who presented because of right leg weakness, paresthesia around the groin as well as urinary retention after lifting his couch since this past . he has lower back pain that radiates right lower. Acute right leg weakness with paresthesia in the thigh and inguinal paresthesia with urinary retention. On examination has poor rectal tone: Possible cauda equina but CT myelogram is negative. Possible right lumbosacral radiculopathy/plexopathy. History of cauda equina that needed that emergent surgical intervention History of multiple spinal surgeries (cervical and lumbosacral). Neurostimulator Rotator cuff injury on the right Plan: Orthopedic surgery team is on board. And they did not feel the patient is a surgical intervention since they did not feel was cauda equina. I personally called Dr. Short and he stated that he might had after picking up to furniture it cannot possibly compressed on one of the nerve roots temporarily as a result causes symptoms but since the CT myelogram looked fine no surgical intervention is needed. And recommends medical management. I recommended consideration of MRI of the lumbar even thoracic spine as an outpatient since cannot be performed as an inpatient because of his stimulator Consider EMG with nerve conduction study of lowers as an outpatient Patient is making improvement today compared to the past couple days in which he is having a bowel movement today. I consulted physical therapy and occupation therapy Urology team is on board We'll defer the rest of the medical medical Department to The plan was discussed with the patient, orthopedic surgeon and his nurse. Thank you for the consultation. Dr. Glynn will start neurology service tomorrow A.M. Time with Patient: Greater than 30
--- NOTE | 2022-10-23 15:06 | PN ---
PROGRESS NOTE SUBJECTIVE: This 56-year-old white male comes in with significant leg weakness. Tried to work him up after he had acute disc herniation or unable to use the legs for whatever reason. OBJECTIVE: VITAL SIGNS: Blood pressure 126/75, temperature 97.9, pulse 81, respiratory rate 16 to 18, and O2 96 on room air. CARDIOVASCULAR: S1, S2. LUNGS: Clear. Straight leg raises are 6 inches bilaterally, lying flat. LABORATORY DATA: Sodium 135, potassium 4.2, GFR 0.45, glucose mid 200s. TSH 1.3. He had a chest x-ray last night, which was negative. He had Dr. Pisano see him, he had large amount of urinary retention and a PSA level, elevated prostate enlargement, has clear yellow urine. CT myelogram showed no spinal stenosis. Indeterminate per Dr. Ac is why he has urinary retention and continue tamsulosin, remove Jaramillo catheter today for voiding trial. May have to do abdominal CAT scan. Pelvis ultrasound to see if there is anything else going on in there. He has severe urinary retention. He did have an abdominal ultrasound on admission, which shows negative, await for Neurology recommendation severe pain and difficulty elevating his legs. His hypertension is under good control, metoprolol, gabapentin 400 t.i.d. for neuropathy. He is on dyslipidemia pills, GERD pills, BPH pills. Prognosis guarded. Please wait for neurology workup. MMODL / IJN: [id number] /
[2022-10-23] MEDS: HYDROmorphone 0.5 MG/0.5 ML SYRINGE IVP PRN ×2 (15:59→21:06)
[2022-10-23 17:41] LABS: Glucose,Whole Blood 373 mg/dL (70-110)
[2022-10-23 20:19] LABS: Glucose,Whole Blood 351 mg/dL (70-110)
[2022-10-24] MEDS: HYDROmorphone 0.5 MG/0.5 ML SYRINGE IVP PRN ×3 (01:43→10:17)
[2022-10-24] MEDS: methylPREDNISolone SOD SUCCI 125 MG/2 ML VIAL IV SCH ×4 (04:15→23:26)
[2022-10-24] MEDS: oxyCODONE-APAP 5-325MG 1 EACH TAB PO SCH ×4 (05:19→23:06)
[2022-10-24 07:22] LABS: Glucose,Whole Blood 228 mg/dL (70-110)
[2022-10-24] MEDS: DAPAGLIFLOZIN PROPANEDIOL 10 MG TABLET PO SCH (08:31)
[2022-10-24] MEDS: TAMSULOSIN 0.4 MG CAP.ER.24H PO SCH (08:31)
[2022-10-24] MEDS: BACLOFEN 10 MG TAB PO SCH ×3 (08:31→23:07)
[2022-10-24] MEDS: lisinopriL 5 MG TAB PO SCH ×2 (08:31→23:07)
[2022-10-24] MEDS: METOPROLOL TARTRATE 50 MG TAB PO SCH ×2 (08:31→23:15)
[2022-10-24] MEDS: ASPIRIN 81 MG PO SCH (08:31)
[2022-10-24] MEDS: GABAPENTIN 400 MG CAP PO SCH ×3 (08:32→23:06)
[2022-10-24] MEDS: INSULIN ASPART (NovoLOG) 100 UNIT/ML VIAL SQ SCH ×4 (08:32→23:08)
[2022-10-24] MEDS: INSULIN DETEMIR (LEVEMIR) 100 UNIT/ML SYR SQ SCH ×2 (08:32→23:07)
[2022-10-24 11:25] LABS: Glucose,Whole Blood 302 mg/dL (70-110)
[2022-10-24 17:22] LABS: Glucose,Whole Blood 228 mg/dL (70-110)
--- NOTE | 2022-10-24 19:40 | P.PN ---
Subjective Progress Note Date: 10/24/22 Patient initially seen by Dr. Dev Barrett. Please refer to his note for details. Patient is a 56-year-old male with right leg weakness, urinary retention, paresthesias of groin and poor rectal tone. Dr. Barrett felt it was cauda equina. Patient underwent CT myelogram and is negative. Orthopedic spine also on board, who do not feel patient has cauda equina. They feel it is more of radiculopathy or impingement of the spinal cord stimulator on the nerve. Patient cannot have MRI. Patient tells me that he had undergone placement of spinal cord stimulator in 2019 for chronic back pain. 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 The spinal cord stim later worked well for a while. Recently he was lifting small couch/sofa come bed and he was moving it out of house. He did it on , 10/20/2022. He started having back pain right away, which attenuated to get worse. He has been having difficulty controlling his bowels or bladder. He could hardly walk. He states he has low back pain, which extends to the front of the right thigh to just below the right knee. He has pins and needle sensation and a lot of throbbing. His low back pain feels like a "steady pinch". Foleys catheter was removed, and he is able to pass urine. Patient states that about couple months ago, he was tried to catch his mother who was falling due to slipping. He hurt his right shoulder and has some r otator cuff issues. He also complains of 3 disc herniations in the neck for which she follows up with pain specialist Dr. Collier who is planning to perform nerve ablation for his 3 disc herniation in the neck. Patient is currently on Neurontin. He states that Lyrica was not covered by his insurance. He has had EMG performed several years ago. CT cervical spine showed no evidence for central canal stenosis or herniated disc. No evidence of fracture or malalignment. Postoperative changes with prosthetic disc material noted at C4 5 and C5 6. Objective - Vital Signs Vital signs: Vital Signs Temp 97.7 F 10/24/22 12:43 Pulse 90 10/24/22 12:43 Resp 18 10/24/22 12:43 BP 163/78 10/24/22 12:43 Pulse Ox 94 L 10/24/22 12:43 FiO2 Intake & Output 10/23/22 10/24/22 10/24/22 18:59 06:59 18:59 Intake Total 480 Output Total 2500 3750 2962 Balance -2019 -2796 -2 Intake: Oral 480 Output: Urine 2500 3750 2850 Uretheral (Jaramillo) 650 Post Void Residual 112 Other: Voiding Method Indwelling Catheter Indwelling Catheter # Voids 2 # Bowel Movements 1 - Exam Patient's mental status, speech and language functions are normal. Cranial nerves are normal. Muscle strength is normal in the arms and legs. Right hip flexion is slightly weak because of give away from pain. Reflexes are (right/left) biceps 1+/1+, brachioradialis 1+/1+, knees 1/2, ankles trace/trace and plantars are probably flat versus downgoing. There is no Babinski. - Labs CBC & Chem 7: 10/23/22 13:55 10/23/22 08:04 Labs: Abnormal Lab Results - Last 24 Hours (Table) 10/23/22 10/23/22 10/24/22 Range/Units 17:39 20:18 07:21 POC Glucose (mg/dL) 373 H 351 H 228 H (70-110) mg/dL 10/24/22 Range/Units 11:24 POC Glucose (mg/dL) 302 H (70-110) mg/dL Assessment and Plan Assessment: This is a 56-year-old gentleman with history of cauda equina in the remote past that had that surgical intervention, multiple spinal surgeries, spinal stimulator who presented because of right leg weakness, paresthesia around the groin as well as urinary retention after lifting his couch since this past . He has presented with lower back pain that radiates right lower. Acute right leg weakness with paresthesia in the thigh and inguinal paresthesia with urinary retention. On examination has poor rectal tone(mentioned by Dr. Barrett): Possible cauda equina but CT myelogram is negative. Possible right lumbosacral radiculopathy/plexopathy. History of cauda equina that needed that emergent surgical intervention History of multiple spinal surgeries (cervical and lumbosacral). Neurostimulator Rotator cuff injury on the right Mild B12 deficiency/insufficiency Diabetes, poorly controlled Plan: CT of the thoracic and lumbar spine with contrast (CT myelogram) revealed no evidence of fracture of the lumbar spine. No significant central canal or neural foraminal stenosis involving the thoracolumbar spine. Post surgical changes of L3 to S1. Hardware appears intact. Orthopedic surgery team is on board. And they did not feel the patient is a surgical intervention since they did not feel there was any obvious disc herniation noted on CT myelogram, that would produce cauda equina. Orthopedic spine recommending medical management. Patient currently on Neurontin 400 mg 3 times a day. Patient states that his insurance does not cover Lyrica, which may be an alternate choice. I recommended Cymbalta, but patient declined starting in the hospital, as he wants to discuss with his pain specialist before starting Cymbalta. Consider EMG with nerve conduction study of lowers as an outpatient Patient's hemoglobin A1c 11.2, consistent with very poorly controlled diabetes. Patient needs to optimize control of diabetes to target A1c < 7.0. TSH is normal. B12 borderline 350, folate 17.5. We will start B12 replacement. Patient is making improvement, as he has started having bowel movement and not retaining urine. Continue Physical therapy and occupation therapy Urology team is on board Patient to follow up with his pain specialist Dr. Collier. Patient does have spinal cord stimulator but is turned off. He needs to up regulate the spinal cord stimulator. We'll defer the rest of the medical medical Department to primary team.
[2022-10-24 20:57] LABS: Glucose,Whole Blood 340 mg/dL (70-110)
[2022-10-24] MEDS: ATORVASTATIN 40 MG TAB PO SCH (23:07)
[2022-10-25] MEDS: oxyCODONE-APAP 5-325MG 1 EACH TAB PO SCH (05:31)
[2022-10-25] MEDS: methylPREDNISolone SOD SUCCI 125 MG/2 ML VIAL IV SCH (05:39)
[2022-10-25 07:22] LABS: Glucose,Whole Blood 337 mg/dL (70-110)
[2022-10-25 08:05] VITALS: BP 147/84; PULSE 81; RESP 20; TEMP 97.9
[2022-10-25] MEDS: lisinopriL 5 MG TAB PO SCH (08:53)
[2022-10-25] MEDS: GABAPENTIN 400 MG CAP PO SCH (08:53)
[2022-10-25] MEDS: TAMSULOSIN 0.4 MG CAP.ER.24H PO SCH (08:53)
[2022-10-25] MEDS: INSULIN ASPART (NovoLOG) 100 UNIT/ML VIAL SQ SCH (08:53)
[2022-10-25] MEDS: METOPROLOL TARTRATE 50 MG TAB PO SCH (08:53)
[2022-10-25] MEDS: BACLOFEN 10 MG TAB PO SCH (08:53)
[2022-10-25] MEDS: DAPAGLIFLOZIN PROPANEDIOL 10 MG TABLET PO SCH (08:53)
[2022-10-25] MEDS: INSULIN DETEMIR (LEVEMIR) 100 UNIT/ML SYR SQ SCH (08:53)
[2022-10-25] MEDS: ASPIRIN 81 MG PO SCH (08:53)
--- NOTE | 2022-10-25 09:31 | PN ---
PROGRESS NOTE SUBJECTIVE: 56-year-old white male whose legs are moving 50% better with IV steroids for 24 hours. We will switch him to oral steroids and possible discharge home in the morning. From medical standpoint, he is improved with IV steroids. We will give him a Medrol Dosepak. Continue with his current treatment of medications at home and we will discharge him home in the morning as he is greatly improved. OBJECTIVE: VITAL SIGNS: Stable, afebrile. CARDIOVASCULAR: S1, S2. PSYCH: Fair mood and affect. LUNGS: Clear. GI: Soft. MUSCULOSKELETAL: He is able to bend his knee and elevate his leg for the first time since admission. ASSESSMENT AND PLAN: He is able to urinate without his Jaramillo catheter for BPH with urinary retention, which is improved. He will follow up as an outpatient. His condition is stable. Prognosis is guarded. MAYA / JORDANN: [id number] /
[2022-10-25] MEDS ORDERED: CYANOCOBALAMIN 1,000 MCG/ML 1 ML VIAL IM ONE (10:00)
[2022-10-26] MEDS ORDERED: CYANOCOBALAMIN 500 MCG TAB PO SCH (09:00)
== END 2022-10-25 10:41 | disposition home or self-care (01) | DRG 347 ==
LOC: EC 13:42 → 5NMEDONC 20:07
PROVIDERS: ADMIT Family Medicine; ATTEND Family Medicine
DX: M54.16 Radiculopathy, lumbar region (principal); E11.42 Type 2 diabetes mellitus with diabetic polyneuropathy; G83.4 Cauda equina syndrome; I34.1 Nonrheumatic mitral (valve) prolapse; I10 Essential (primary) hypertension; J44.9 Chronic obstructive pulmonary disease, unspecified; E11.65 Type 2 diabetes mellitus with hyperglycemia; N40.1 Benign prostatic hyperplasia with lower urinary tract symptoms; R33.8 Other retention of urine; M51.26 Other intervertebral disc displacement, lumbar region; I25.10 Atherosclerotic heart disease of native coronary artery without angina pectoris; E78.5 Hyperlipidemia, unspecified; G47.33 Obstructive sleep apnea (adult) (pediatric); G89.29 Other chronic pain; M54.30 Sciatica, unspecified side; N32.89 Other specified disorders of bladder; E53.8 Deficiency of other specified B group vitamins; M50.30 Other cervical disc degeneration, unspecified cervical region; R15.9 Full incontinence of feces; R32 Unspecified urinary incontinence; M25.78 Osteophyte, vertebrae; M51.9 Unspecified thoracic, thoracolumbar and lumbosacral intervertebral disc disorder; X50.0XXA Overexertion from strenuous movement or load, initial encounter; Z98.1 Arthrodesis status; Z97.8 Presence of other specified devices; Z86.14 Personal history of Methicillin resistant Staphylococcus aureus infection; I25.2 Old myocardial infarction; Z87.11 Personal history of peptic ulcer disease; Z86.711 Personal history of pulmonary embolism; Z79.82 Long term (current) use of aspirin; Z79.84 Long term (current) use of oral hypoglycemic drugs; Z79.891 Long term (current) use of opiate analgesic; Z79.899 Other long term (current) drug therapy; Z87.19 Personal history of other diseases of the digestive system; Z28.310 Unvaccinated for COVID-19; Z79.4 Long term (current) use of insulin
CPT/HCPCS: 36415; 62305; 71046; 72125; 72129; 72131; 72132; 76700; 76857; 80053; 81003; 82550; 82607; 82746; 83036; 83880; 84443; 85025; 85027; 96374; 96375; 96376; 99285

== ENCOUNTER 2022-10-31 04:10 | Emergency (ER) | payer OTHER ==
[2022-10-31 04:16] VITALS: TEMP 97.5
--- NOTE | 2022-10-31 04:31 | ED ---
General Adult HPI - General Chief complaint: Chest Pain Stated complaint: palpitations Time Seen by Provider: 10/31/22 04:17 Source: patient Mode of arrival: ambulatory Limitations: no limitations - History of Present Illness Initial comments: This is a 56-year-old male with an extensive past medical history including hypertension, diabetes, previous PEs on Eliquis, previous cauda equina syndrome, and asthma presents emergency department for palpitations and shortness of breath. The patient stated since 10:00 PM, he started to have palpitations and increasing exertional shortness of breath. The patient stated that the last time this happened he was found to have a blood clot in his lungs. The patient stated that he thought his heart rate would decrease on its own however did not therefore he came to the emergency department for evaluation. The patient had been recently seen one week ago and was admitted to rule out cauda equina. The patient stated that he was not having any acute back pain at this time nor any numbness or tingling. The patient denied any lightheadedness or dizziness and any active chest pain but stated that he felt as if his heart was racing throughout the evening. The patient denied any fevers or chills. - Related Data Home Medications Medication Instructions Recorded Confirmed Insulin Lispro [humaLOG Kwikpen] See Protocol SQ ACHS 06/16/21 10/20/22 oxyCODONE-APAP 5-325MG [Percocet 1 tab PO Q6H 09/12/21 10/20/22 5-325 mg] Gabapentin [Neurontin] 400 mg PO TID 12/25/21 10/20/22 Aspirin EC [Ecotrin Low Dose] 81 mg PO DAILY 05/23/22 10/20/22 Atorvastatin Calcium [Lipitor] 40 mg PO HS 05/23/22 10/20/22 Baclofen 10 mg PO TID 05/23/22 10/20/22 Empagliflozin [Jardiance] 25 mg PO DAILY 05/23/22 10/20/22 Metoprolol Tartrate [Lopressor] 50 mg PO BID 05/23/22 10/20/22 Omeprazole Magnesium [PriLOSEC OTC] 20 mg PO DAILY PRN 05/23/22 10/20/22 lisinopriL [Zestril] 5 mg PO BID 05/23/22 10/20/22 Insulin Glargine,Hum.rec.anlog 24 units SQ BID 10/20/22 10/20/22 [Lantus Solostar Pen] Ondansetron Odt [Zofran ODT] 4 mg PO Q6H PRN 10/20/22 10/20/22 Previous Rx's Medication Instructions Recorded Tamsulosin [Flomax] 0.4 mg PO PC-BRKFST 90 Days #90 cap 10/25/22 Allergies Allergy/AdvReac Type Severity Reaction Status Date / Time doxycycline Allergy Swelling Verified 10/20/22 20:30 ketorolac tromethamine Allergy Rash/Hives Verified 10/20/22 20:30 [From Toradol] morphine Allergy Rash/Hives Verified 10/20/22 20:30 metoclopramide HCl AdvReac Dystonic Verified 10/20/22 20:30 [From Reglan] Reaction prochlorperazine edisylate AdvReac Dystonic Verified 10/20/22 20:30 [From Compazine] Reaction prochlorperazine maleate AdvReac Dystonic Verified 10/20/22 20:30 [From Compazine] Reaction Review of Systems ROS Statement: Those systems with pertinent positive or pertinent negative responses have been documented in the HPI. ROS Other: All systems not noted in ROS Statement are negative. Past Medical History Past Medical History: Asthma, Coronary Artery Disease (CAD), Chest Pain / Angina, Diabetes Mellitus, GERD/Reflux, GI Bleed, Hyperlipidemia, Hypertension, Myocardial Infarction ([place]), Mitral Valve Prolapse (MVP), Pulmonary Embolus (PE), Sleep Apnea/CPAP/BIPAP Additional Past Medical History / Comment(s): Asthmatic bronchitis-chronic, IDDM type II, neuropathy bilateral feet, lower and upper GI bleeds, PUD, diverticulitis, colectomy d/t benign mass/intusseption, BPH, renal cysts, nephrolithiais, UTI with sepsis, chronic back pain 2ndary to herniated lumbar discs/sciatica, JARED does not use his Cpap, MVP, murmur Last Myocardial Infarction Date:: 2011 History of Any Multi-Drug Resistant Organisms: C-DIFF, MRSA Date of last positivie culture/infection: 2015 MDRO Source:: left axilla Past Surgical History: Appendectomy, Back Surgery, Cholecystectomy, Heart Cat heterization, Hernia Repair Additional Past Surgical History / Comment(s): Lumbar decompression/fusion/laminectomy, spinal stimulator, T lift procedure, L inguinal hernia repair, multiple ESWLs/stents/double J caths, colonoscopy, 02/2020 colectomy, EGDs for food obstructions and dilations Past Anesthesia/Blood Transfusion Reactions: No Reported Reaction Past Psychological History: No Psychological Hx Reported Smoking Status: Never smoker Past Alcohol Use History: None Reported Past Drug Use History: None Reported - Past Family History Father Family Medical History: Chest Pain / Angina Additional Family Medical History / Comment(s): "lung problems" Mother Family Medical History: Cancer, Chest Pain / Angina, Congestive Heart Failure (CHF), Osteoarthritis (OA), Thyroid Disorder Additional Family Medical History / Comment(s): "female cancer" General Exam Limitations: no limitations General appearance: alert, in no apparent distress, obese Head exam: Present: atraumatic, normocephalic, normal inspection Eye exam: Present: normal appearance, PERRL Pupils: Present: normal accommodation ENT exam: Present: normal exam, normal oropharynx, mucous membranes moist Neck exam: Present: normal inspection, full ROM Respiratory exam: Present: normal lung sounds bilaterally Cardiovascular Exam: Present: normal rhythm, tachycardia GI/Abdominal exam: Present: soft, normal bowel sounds Extremities exam: Present: normal inspection, full ROM Back exam: Present: normal inspection, full ROM Neurological exam: Present: alert, oriented X3, CN II-XII intact Psychiatric exam: Present: normal affect, normal mood Skin exam: Present: warm, dry Course Vital Signs 10/31/22 10/31/22 10/31/22 04:12 04:20 04:21 Temperature 97.5 F L Pulse Rate 99 125 H Pulse Rate [ Tour Actor ] Respiratory 20 22 Rate Blood Pressure 184/100 194/145 O2 Sat by Pulse 99 100 99 Oximetry 10/31/22 10/31/22 10/31/22 04:23 04:30 04:40 Temperature Pulse Rate 122 H 113 H Pulse Rate [ 123 H Tour Actor ] Respiratory 22 24 20 Rate Blood Pressure 183/112 164/108 O2 Sat by Pulse 98 100 Oximetry 10/31/22 10/31/22 10/31/22 05:30 05:40 05:45 Temperature Pulse Rate 118 H 111 H 106 H Pulse Rate [ Tour Actor ] Respiratory 20 20 Rate Blood Pressure 171/111 170/111 170/111 O2 Sat by Pulse 97 98 99 Oximetry 10/31/22 10/31/22 05:59 06:00 Temperature Pulse Rate 105 H 105 H Pulse Rate [ Tour Actor ] Respiratory 19 Rate Blood Pressure 175/105 O2 Sat by Pulse 100 Oximetry EKG Findings - EKG Comments: EKG Findings:: An EKG was obtained and was interpreted by myself showing a rate of 122, PA interval 135, QRS duration 115 and QTC of 420. This EKG showed a sinus tachycardia without any ST segment elevation or depression noted. Medical Decision Making - Medical Decision Making Was pt. sent in by a medical professional or institution (, [employer], [employer], urgent care, hospital, or custodial...) When possible be specific @ -No Did you speak to anyone other than the patient for history (EMS, parent, family, police, friend...)? What history was obtained from this source @ -No Did you review nursing and triage notes (agree or disagree)? Why? @ -I reviewed and agree with nursing and triage notes Were old charts reviewed (outside hosp., previous admission, EMS record, old EKG, old radiological studies, urgent care reports/EKG's, custodial records)? Report findings @ -No old charts were reviewed Differential Diagnosis (chest pain, altered mental status, abdominal pain women, abdominal pain men, vaginal bleeding, weakness, fever, dyspnea, syncope, headache, dizziness, GI bleed, back pain, seizure, CVA, palpatations, mental health)? @ -ACS, pneumonia, pneumothorax, PE EKG interpreted by me (3pts min.). @ -As above X-rays interpreted by me (1pt min.). @ -Chest x-ray was obtained and was interpreted by myself showing no acute process. CT interpreted by me (1pt min.). @ -None done U/S interpreted by me (1pt. min.). @ -None done What testing was considered but not performed or refused? (CT, X-rays, U/S, labs)? Why? @ -None What meds were considered but not given or refused? Why? @ -None Did you discuss the management of the patient with other professionals (monico lobo i.e. , [employer], [employer], lab, RT, psych nurse, social sciences chair, combined rail operator, teacher, chief operations officer, protective services case worker)? Give summary @ -No Was smoking cessation discussed for >3mins.? @ -No Was critical care preformed (if so, how long)? @ -No Were there social determinants of health that impacted care today? How? (Homelessness, low income, unemployed, alcoholism, drug addiction, transportation, low edu. Level, literacy, decrease access to med. care, intermediate, rehab)? @ -No Was there de-escalation of care discussed even if they declined (Discuss DNR or withdrawal of care, Hospice)? DNR status @ -No What co-morbidities impacted this encounter? (DM, HTN, Smoking, COPD, CAD, Cancer, CVA, ARF, Chemo, Hep., AIDS, mental health diagnosis, sleep apnea, morbid obesity)? @ -Multiple comorbidities including hypertension, diabetes, previous pulmonary emboli on Eliquis and previous cauda equina syndrome Was patient admitted / discharged? Hospital course, mention meds given and route, prescriptions, significant lab abnormalities, going to OR and other pertinent info. @ -The patient was seen and evaluated emergency department. Physical exam, the patient was resting in bed with slight anxiety. Vital signs admission showed tachycardia with elevated blood pressure. Laboratory workup, imaging and EKG were obtained. All laboratory workup was negative including a d-dimer. Chest x-ray and EKG were negative. The patient's heart rate remained stable but was elevated with a sinus tachycardia noted. The patient received 1 L no saline fluid as well as 50 mcg of fentanyl IV. On reevaluation, the patient's heart rate did decrease to 99 and the patient stated that his symptoms were improving. The patient was offered observation and evaluation by cardiology but he stated that he had multiple things going on at home including caretaking for his mother who was to follow-up in the office for possible procedure. The patient stated that he did not want to stay for observation and instead wanted to just make sure nothing was okay to be discharged home. The patient stated that he would follow-up in the emergency department if he had worsening pain or symptoms. The patient also had follow-up with his primary care physician, Dr. Muñiz tomorrow and he did state that he would follow-up and informed him of this visit. The patient also stated that he was to follow-up with his regulatory submissions associate as he wanted to evaluate his consistently elevated heart rate as an outpatient. The patient did receive his home dose of Percocet and was stable for discharge home. The patient was discharged in stable condition. Undiagnosed new problem with uncertain prognosis? @ -No Drug Therapy requiring intensive monitoring for toxicity (Heparin, Nitro, Insulin, Cardizem)? @ -No Were any procedures done? @ -No Diagnosis/symptom? @ -Palpitations, NOS Acute, or Chronic, or Acute on Chronic? @ -Acute on chronic Uncomplicated (without systemic symptoms) or Complicated (systemic symptoms)? @ -Uncomplicated Side effects of treatment? @ -No Exacerbation, Progression, or Severe Exacerbation? @ -No Poses a threat to life or bodily function? How? (Chest pain, [place], [place], pneumonia, PE, COPD, DKA, ARF, appy, cholecystitis, CVA, Diverticulitis, Homicidal, Suicidal, threat to staff... and all critical care pts) @ -No - Lab Data Result diagrams: 10/31/22 04:50 10/31/22 04:50 Lab Results 10/31/22 10/31/22 10/31/22 Range/Units 04:50 04:50 04:50 WBC 8.8 (3.8-10.6) k/uL RBC 5.52 (4.30-5.90) m/uL Hgb 16.1 (13.0-17.5) gm/dL Hct 47.6 (39.0-53.0) % MCV 86.3 (80.0-100.0) fL MCH 29.2 (25.0-35.0) pg MCHC 33.9 (31.0-37.0) g/dL RDW 13.1 (11.5-15.5) % Plt Count 262 (150-450) k/uL MPV 7.0 Neutrophils % 77 % Lymphocytes % 17 % Monocytes % 5 % Eosinophils % 1 % Basophils % 0 % Neutrophils # 6.8 (1.3-7.7) k/uL Lymphocytes # 1.5 (1.0-4.8) k/uL Monocytes # 0.4 (0-1.0) k/uL Eosinophils # 0.1 (0-0.7) k/uL Basophils # 0.0 (0-0.2) k/uL PT 9.4 (9.0-12.0) sec INR 0.9 (<1.2) APTT 18.7 L (22.0-30.0) sec D-Dimer 0.30 (<0.60) mg/L FEU Sodium 133 L (137-145) mmol/L Potassium 4.7 (3.5-5.1) mmol/L Chloride 101 (98-107) mmol/L Carbon Dioxide 17 L (22-30) mmol/L Anion Gap 15 mmol/L BUN 11 (9-20) mg/dL Creatinine 0.39 L (0.66-1.25) mg/dL Est GFR (CKD-EPI)AfAm >90 (>60 ml/min/1.73 sqM) Est GFR (CKD-EPI)NonAf >90 (>60 ml/min/1.73 sqM) Glucose 290 H (74-99) mg/dL Calcium 10.2 (8.4-10.2) mg/dL Magnesium 1.9 (1.6-2.3) mg/dL Total Bilirubin 1.2 (0.2-1.3) mg/dL AST 27 (17-59) U/L ALT 35 (4-49) U/L Alkaline Phosphatase 127 H (38-126) U/L Troponin I (0.000-0.034) ng/mL NT-Pro-B Natriuret Pep pg/mL Total Protein 8.1 (6.3-8.2) g/dL Albumin 4.9 (3.5-5.0) g/dL Lipase 119 (23-300) U/L 10/31/22 10/31/22 Range/Units 04:50 04:50 WBC (3.8-10.6) k/uL RBC (4.30-5.90) m/uL Hgb (13.0-17.5) gm/dL Hct (39.0-53.0) % MCV (80.0-100.0) fL MCH (25.0-35.0) pg MCHC (31.0-37.0) g/dL RDW (11.5-15.5) % Plt Count (150-450) k/uL MPV Neutrophils % % Lymphocytes % % Monocytes % % Eosinophils % % Basophils % % Neutrophils # (1.3-7.7) k/uL Lymphocytes # (1.0-4.8) k/uL Monocytes # (0-1.0) k/uL Eosinophils # (0-0.7) k/uL Basophils # (0-0.2) k/uL PT (9.0-12.0) sec INR (<1.2) APTT (22.0-30.0) sec D-Dimer (<0.60) mg/L FEU Sodium (137-145) mmol/L Potassium (3.5-5.1) mmol/L Chloride (98-107) mmol/L Carbon Dioxide (22-30) mmol/L Anion Gap mmol/L BUN (9-20) mg/dL Creatinine (0.66-1.25) mg/dL Est GFR (CKD-EPI)AfAm (>60 ml/min/1.73 sqM) Est GFR (CKD-EPI)NonAf (>60 ml/min/1.73 sqM) Glucose (74-99) mg/dL Calcium (8.4-10.2) mg/dL Magnesium (1.6-2.3) mg/dL Total Bilirubin (0.2-1.3) mg/dL AST (17-59) U/L ALT (4-49) U/L Alkaline Phosphatase (38-126) U/L Troponin I <0.012 (0.000-0.034) ng/mL NT-Pro-B Natriuret Pep 104 pg/mL Total Protein (6.3-8.2) g/dL Albumin (3.5-5.0) g/dL Lipase (23-300) U/L Disposition Clinical Impression: Palpitations, Anxiety Disposition: HOME SELF-CARE Condition: Stable Instructions (If sedation given, give patient instructions): Heart Palpitations (DC) Is patient prescribed a controlled substance at d/c from ED?: No Referrals: González Muñiz MD [Primary Care Provider] - 11/01/22 Time of Disposition: 06:00
[2022-10-31 05:00] LABS: Basophils % (A) 0 %; Eosinophils # (A) 0.1 k/uL (0-0.7); Eosinophils % (A) 1 %; HCT 47.6 % (39.0-53.0); HGB 16.1 gm/dL (13.0-17.5); Lymphocytes # (A) 1.5 k/uL (1.0-4.8); Lymphocytes % (A) 17 %; MCH 29.2 pg (25.0-35.0); MCHC 33.9 g/dL (31.0-37.0); MCV 86.3 fL (80.0-100.0); Monocytes # (A) 0.4 k/uL (0-1.0); Monocytes % (A) 5 %; Neutrophils # (A) 6.8 k/uL (1.3-7.7); Neutrophils % (A) 77 %; Platelet Count 262 k/uL (150-450); RBC 5.52 m/uL (4.30-5.90); RDW 13.1 % (11.5-15.5); WBC 8.8 k/uL (3.8-10.6)
[2022-10-31 05:12] LABS: ALT 35 U/L (4-49); AST 27 U/L (17-59); African American GFR (CKD) >90 (>60 ml/min/1.73 sqM); Albumin 4.9 g/dL (3.5-5.0); Alkaline Phosphatase 127 U/L (38-126); Anion Gap 15 mmol/L; Blood Urea Nitrogen 11 mg/dL (9-20); Calcium 10.2 mg/dL (8.4-10.2); Carbon Dioxide 17 mmol/L (22-30); Chloride 101 mmol/L (98-107); Glucose 290 mg/dL (74-99); Lipase 119 U/L (23-300); Magnesium 1.9 mg/dL (1.6-2.3); Non-African American GFR(CKD) >90 (>60 ml/min/1.73 sqM); Potassium 4.7 mmol/L (3.5-5.1); Sodium 133 mmol/L (137-145); Total Bilirubin 1.2 mg/dL (0.2-1.3); Total Protein 8.1 g/dL (6.3-8.2)
[2022-10-31] MEDS ORDERED: SODIUM CHLORIDE 0.9% 1,000 ML IV ONE (05:13)
[2022-10-31] MEDS ORDERED: fentaNYL (PF) 50 MCG/ML 2 ML AMP IVP STA (05:18)
--- NOTE | 2022-10-31 05:24 | XR ---
EXAMINATION TYPE: XR chest 2V DATE OF EXAM: 10/31/2022 COMPARISON: Chest x-ray 9 days ago HISTORY: Chest pain. TECHNIQUE: Frontal and lateral views of the chest are obtained. FINDINGS: There is chronic parenchymal change without suspicious focal air space opacity, pleural ef fusion, or pneumothorax seen. The cardiac silhouette size is stable and within normal limits. Lower thoracic stimulator device redemonstrated. Surgical changes in the cervical spine are partially image d. IMPRESSION: Chronic changes without acute pulmonary process.
[2022-10-31 05:52] LABS: INR 0.9 (<1.2); Prothrombin Time 9.4 sec (9.0-12.0)
[2022-10-31 05:56] LABS: Partial Thromboplastin Time 18.7 sec (22.0-30.0)
[2022-10-31] MEDS ORDERED: oxyCODONE-APAP 5-325MG 1 EACH TAB PO STA (06:15)
[2022-10-31 06:19] VITALS: BP 166/116; PULSE 99; RESP 18
== END 2022-10-31 06:27 | disposition home or self-care (01) ==
LOC: EC 04:10
DX: R00.2 Palpitations (principal); I10 Essential (primary) hypertension; I25.10 Atherosclerotic heart disease of native coronary artery without angina pectoris; I25.2 Old myocardial infarction; F41.9 Anxiety disorder, unspecified; E78.5 Hyperlipidemia, unspecified; G47.33 Obstructive sleep apnea (adult) (pediatric); J45.909 Unspecified asthma, uncomplicated; K21.9 Gastro-esophageal reflux disease without esophagitis; E11.9 Type 2 diabetes mellitus without complications; Z79.4 Long term (current) use of insulin; Z79.82 Long term (current) use of aspirin; Z79.84 Long term (current) use of oral hypoglycemic drugs; Z79.01 Long term (current) use of anticoagulants; Z79.899 Other long term (current) drug therapy; Z88.8 Allergy status to other drugs, medicaments and biological substances; Z90.49 Acquired absence of other specified parts of digestive tract; Z86.711 Personal history of pulmonary embolism
CPT/HCPCS: 36415; 93005; 85379; 83880; 80053; 83690; 83735; 84484; 85025; 85610; 85730; 71046; 99285; 96374; 96361; J3010

== ENCOUNTER 2022-11-13 10:31 | Emergency (ER) | payer OTHER ==
[2022-11-13 10:54] VITALS: RESP 18; TEMP 98
[2022-11-13 11:15] LABS: Appearance,Urine Clear (Clear); Bilirubin,Urine Negative (Negative); Blood,Urine Large (Negative); Color,Urine Yellow; Glucose,Urine (UA) 4+ (Negative); Ketones,Urine Negative (Negative); Leukocyte Esterase,Urine Negative (Negative); Nitrite,Urine Negative (Negative); Protein,Urine Negative (Negative); RBC,Urine >182 /hpf (0-5); Specific Gravity,Urine 1.034 (1.001-1.035); Squamous Epithelial Cell,Urine 1 /hpf (0-4); Urobilinogen,Urine <2.0 mg/dL (<2.0); WBC,Urine <1 /hpf (0-5)
[2022-11-13] MEDS ORDERED: SODIUM CHLORIDE 0.9% 1,000 ML IV STA (11:21)
[2022-11-13] MEDS ORDERED: HYDROmorphone 1 MG/ML 1 ML SYRINGE IVP STA ×3 (11:21→14:26)
--- NOTE | 2022-11-13 11:40 | ED ---
Back Pain HPI - General Chief Complaint: Back Pain/Injury Stated Complaint: kidney pain and blood in urine Time Seen by Provider: 11/13/22 10:58 Source: patient, RN notes reviewed Mode of arrival: wheelchair Limitations: no limitations - History of Present Illness Initial Comments: This is a 57-year-old male who presents to the emergency department for right flank pain. States that this started 2 days ago. Pain is occurring intermittently. Reports a history of kidney stones and states that this feels the same. He has associated urinary hesitancy and hematuria. He takes oxycodone and gabapentin, which has not been effectively managing his pain. Denies any nausea or vomiting. Denies any fevers, chills, sore throat, palpitations, abdominal pain, nausea, vomiting, diarrhea, or headaches. MD Complaint: back pain Onset/Timin -: days(s) - Related Data Home Medications Medication Instructions Recorded Confirmed Insulin Lispro [humaLOG Kwikpen] See Protocol SQ ACHS 06/16/21 10/20/22 oxyCODONE-APAP 5-325MG [Percocet 1 tab PO Q6H 09/12/21 10/20/22 5-325 mg] Gabapentin [Neurontin] 400 mg PO TID 12/25/21 10/20/22 Aspirin EC [Ecotrin Low Dose] 81 mg PO DAILY 05/23/22 10/20/22 Atorvastatin Calcium [Lipitor] 40 mg PO HS 05/23/22 10/20/22 Baclofen 10 mg PO TID 05/23/22 10/20/22 Empagliflozin [Jardiance] 25 mg PO DAILY 05/23/22 10/20/22 Metoprolol Tartrate [Lopressor] 50 mg PO BID 05/23/22 10/20/22 Omeprazole Magnesium [PriLOSEC OTC] 20 mg PO DAILY PRN 05/23/22 10/20/22 lisinopriL [Zestril] 5 mg PO BID 05/23/22 10/20/22 Insulin Glargine,Hum.rec.anlog 24 units SQ BID 10/20/22 10/20/22 [Lantus Solostar Pen] Ondansetron Odt [Zofran ODT] 4 mg PO Q6H PRN 10/20/22 10/20/22 Previous Rx's Medication Instructions Recorded Tamsulosin [Flomax] 0.4 mg PO PC-BRKFST 90 Days #90 cap 10/25/22 Azithromycin [Zithromax] 250 mg PO DAILY 4 Days #4 tab 11/13/22 Allergies Allergy/AdvReac Type Severity Reaction Status Date / Time doxycycline Allergy Swelling Verified 11/13/22 10:54 ketorolac tromethamine Allergy Rash/Hives Verified 11/13/22 10:54 [From Toradol] morphine Allergy Rash/Hives Verified 11/13/22 10:54 metoclopramide HCl AdvReac Dystonic Verified 11/13/22 10:54 [From Reglan] Reaction prochlorperazine edisylate AdvReac Dystonic Verified 11/13/22 10:54 [From Compazine] Reaction prochlorperazine maleate AdvReac Dystonic Verified 11/13/22 10:54 [From Compazine] Reaction Review of Systems ROS Statement: Those systems with pertinent positive or pertinent negative responses have been documented in the HPI. ROS Other: All systems not noted in ROS Statement are negative. Past Medical History Past Medical History: Asthma, Coronary Artery Disease (CAD), Chest Pain / Angina, Diabetes Mellitus, GERD/Reflux, GI Bleed, Hyperlipidemia, Hypertension, Myocardial Infarction (AL), Mitral Valve Prolapse (MVP), Pulmonary Embolus (PE), Sleep Apnea/CPAP/BIPAP Additional Past Medical History / Comment(s): Asthmatic bronchitis-chronic, IDDM type II, neuropathy bilateral feet, lower and upper GI bleeds, PUD, diverticulitis, colectomy d/t benign mass/intusseption, BPH, renal cysts, nephrolithiais, UTI with sepsis, chronic back pain 2ndary to herniated lumbar discs/sciatica, JARED does not use his Cpap, MVP, murmur Last Myocardial Infarction Date:: 2011 History of Any Multi-Drug Resistant Organisms: C-DIFF, MRSA Date of last positivie culture/infection: 2015 MDRO Source:: left axilla Past Surgical History: Appendectomy, Back Surgery, Cholecystectomy, Heart Catheterization, Hernia Repair Additional Past Surgical History / Comment(s): Lumbar decompression/fusion/laminectomy, spinal stimulator, T lift procedure, L inguinal hernia repair, multiple ESWLs/stents/double J caths, colonoscopy, 02/2020 colectomy, EGDs for food obstructions and dilations Past Anesthesia/Blood Transfusion Reactions: No Reported Reaction Past Psychological History: No Psychological Hx Reported Smoking Status: Never smoker Past Alcohol Use History: None Reported Past Drug Use History: None Reported - Past Family History Father Family Medical History: Chest Pain / Angina Additional Family Medical History / Comment(s): "lung problems" Mother Family Medical History: Cancer, Chest Pain / Angina, Congestive Heart Failure (CHF), Osteoarthritis (OA), Thyroid Disorder Additional Family Medical History / Comment(s): "female cancer" General Exam Limitations: no limitations General appearance: alert, in no apparent distress Head exam: Present: atraumatic, normocephalic, normal inspection Respiratory exam: Present: normal lung sounds bilaterally. Absent: respiratory distress, wheezes, rales, rhonchi, stridor Cardiovascular Exam: Present: regular rate, normal rhythm, normal heart sounds. Absent: systolic murmur, diastolic murmur, rubs, gallop, clicks GI/Abdominal exam: Present: soft, normal bowel sounds. Absent: distended, tenderness, guarding, rebound, rigid Back exam: Present: CVA tenderness (R). Absent: CVA tenderness (L) Neurological exam: Present: alert, oriented X3, CN II-XII intact Psychiatric exam: Present: normal affect, normal mood Skin exam: Present: warm, dry, intact, normal color. Absent: rash Course Vital Signs 11/13/22 11/13/22 11/13/22 10:51 12:50 13:02 Temperature 98 F Pulse Rate 111 H 104 H 108 H Respiratory 18 18 Rate Blood Pressure 145/96 160/100 O2 Sat by Pulse 96 97 Oximetry 11/13/22 11/13/22 13:13 14:37 Temperature Pulse Rate 106 H 104 H Respiratory 18 Rate Blood Pressure 151/96 O2 Sat by Pulse 95 Oximetry Medical Decision Making - Medical Decision Making This is a 57-year-old male who presents to the emergency department for right flank pain. Was pt. sent in by a medical professional or institution? @ -No Did you speak to anyone other than the patient for history? @ -No Did you review nursing and triage notes? @ -Yes, and I agree, it is accurate with regards to the patient's symptoms. Were old charts reviewed? @ -No Differential Diagnosis? @ -Differential Back Pain: Strain, zoster, cauda equina syndrome, epidural abscess, vertebral osteomyelitis, discitis, fracture, subluxation, disc herniation, DJD, spinal stenosis, dissection, AAA, pancreatitis, peptic ulcer disease, pyelonephritis, kidney stone, this is not meant to be an all-inclusive list. EKG interpreted by me (3 pts min.)? @ -Sinus tachycardia. Ventricular rate 106 bpm, IN interval 148 ms, QRS duration 118 ms, QTC 433 ms. X-ray interpreted by me (1pt min.)? @ -Chest x-ray obtained, my interpretation identifies no localized cons olidations or infiltrates. CT interpreted by me (1pt min.)? @ -Computed tomography scan of the abdomen and pelvis obtained. My interpretation identifies no evidence of bowel wall thickening or ureteral calculus. What testing was considered but not performed? (CT, X-rays, U/S, labs)? Why? @ -None What meds were considered but not given? Why? @ -None Did you discuss the management of the patient with other professionals? @ -No Did you reconcile home meds? @ -No Was smoking cessation discussed for >3mins.? @ -No Was critical care preformed (if so, how long)? @ -No Were there social determinants of health that impacted care today? How? (Homelessness, low income, unemployed, alcoholism, drug addiction, transpor tation, low edu. Level, literacy, decrease access to med. care, longterm, rehab)? @ -No Was there de-escalation of care discussed even if they declined? (Discuss DNR or withdrawal of care, Hospice)? @ -No What co-morbidities impacted this encounter? (DM, HTN, Smoking, COPD, CAD, Cancer, CVA, Hep., AIDS, mental health diagnosis, sleep apnea, morbid obesity)? @ -CAD, DM, GERD, chronic back pain, HLD, HTN. Was patient admitted / discharged? @ -Discharged. Urinalysis does have a large amount of blood, however upon review of prior UAs, this has been a somewhat constant finding for the patient. Computed tomography scan of the abdomen and pelvis obtained revealing no intra- abdominal pathology aside from moderate stool burden. However, it did identify bilateral lower lobe ground glass opacities suggestive of atypical pneumonia. Patient states that he has had some shortness of breath, chest pain, and coughing over the last week. Cardiac workup and chest x-ray were subsequently obtained. Chest x-ray demonstrated no acute findings. Lab work was found to be nonactionable and EKG revealed no acute changes. Findings discussed with the patient, will start him on a course of azithromycin for pneumonia. The first dose was administered in the emergency department and a prescription for the additional 4 days was provided with dosing instructions reviewed. Undiagnosed new problem with uncertain prognosis? @ -None Drug Therapy requiring intensive monitoring for toxicity (Heparin, Nitro, Insulin, Cardizem)? @ -None Were any procedures done? @ -None Diagnosis/symptom? @ -Right flank pain, atypical pneumonia Acute, or Chronic, or Acute on Chronic? @ -Acute Uncomplicated (without systemic symptoms) or Complicated (systemic symptoms)? @ -Uncomplicated Side effects of treatment? @ -None Exacerbation, Progression, or Severe Exacerbation] @ -Not applicable Poses a threat to life or bodily function? @ -No Return precautions reviewed in depth, the patient is instructed to return to the emergency department with any new, worsening, or concerning symptoms. Patient verbalized understanding. This case was discussed in detail with the attending ED physician, Dr. Balbuena. Presentation, findings, and treatment plan discussed in detail as well. - Lab Data Result diagrams: 11/13/22 12:16 11/13/22 12:16 Lab Results 11/13/22 11/13/22 11/13/22 Range/Units 10:55 12:16 12:16 WBC 5.9 (3.8-10.6) k/uL RBC 5.13 (4.30-5.90) m/uL Hgb 14.7 (13.0-17.5) gm/dL Hct 42.8 (39.0-53.0) % MCV 83.4 (80.0-100.0) fL MCH 28.5 (25.0-35.0) pg MCHC 34.2 (31.0-37.0) g/dL RDW 14.1 (11.5-15.5) % Plt Count 233 (150-450) k/uL MPV 6.9 Neutrophils % 74 % Lymphocytes % 18 % Monocytes % 4 % Eosinophils % 2 % Basophils % 0 % Neutrophils # 4.4 (1.3-7.7) k/uL Lymphocytes # 1.1 (1.0-4.8) k/uL Monocytes # 0.2 (0-1.0) k/uL Eosinophils # 0.1 (0-0.7) k/uL Basophils # 0.0 (0-0.2) k/uL PT (9.0-12.0) sec INR (<1.2) APTT (22.0-30.0) sec D-Dimer (<0.60) mg/L FEU Sodium 135 L (137-145) mmol/L Potassium 4.1 (3.5-5.1) mmol/L Chloride 102 (98-107) mmol/L Carbon Dioxide 21 L (22-30) mmol/L Anion Gap 12 mmol/L BUN 14 (9-20) mg/dL Creatinine 0.43 L (0.66-1.25) mg/dL Est GFR (CKD-EPI)AfAm >90 (>60 ml/min/1.73 sqM) Est GFR (CKD-EPI)NonAf >90 (>60 ml/min/1.73 sqM) Glucose 255 H (74-99) mg/dL Plasma Lactic Acid Edd (0.7-2.0) mmol/L Calcium 9.6 (8.4-10.2) mg/dL Total Bilirubin 0.7 (0.2-1.3) mg/dL AST 23 (17-59) U/L ALT 62 H (4-49) U/L Alkaline Phosphatase 115 (38-126) U/L Troponin I (0.000-0.034) ng/mL Total Protein 7.1 (6.3-8.2) g/dL Albumin 4.3 (3.5-5.0) g/dL Urine Color Yellow Urine Appearance Clear (Clear) Urine pH 6.0 (5.0-8.0) Ur Specific Hilliard 1.034 (1.001-1.035) Urine Protein Negative (Negative) Urine Glucose (UA) 4+ H (Negative) Urine Ketones Negative (Negative) Urine Blood Large H (Negative) Urine Nitrite Negative (Negative) Urine Bilirubin Negative (Negative) Urine Urobilinogen <2.0 (<2.0) mg/dL Ur Leukocyte Esterase Negative (Negative) Urine RBC >182 H (0-5) /hpf Urine WBC <1 (0-5) /hpf Ur Squamous Epith Cells 1 (0-4) /hpf Influenza Type A (PCR) (Not Detectd) Influenza Type B (PCR) (Not Detectd) RSV (PCR) (Not Detectd) SARS-CoV-2 (PCR) (Not Detectd) 11/13/22 11/13/22 11/13/22 Range/Units 12:16 12:16 12:16 WBC (3.8-10.6) k/uL RBC (4.30-5.90) m/uL Hgb (13.0-17.5) gm/dL Hct (39.0-53.0) % MCV (80.0-100.0) fL MCH (25.0-35.0) pg MCHC (31.0-37.0) g/dL RDW (11.5-15.5) % Plt Count (150-450) k/uL MPV Neutrophils % % Lymphocytes % % Monocytes % % Eosinophils % % Basophils % % Neutrophils # (1.3-7.7) k/uL Lymphocytes # (1.0-4.8) k/uL Monocytes # (0-1.0) k/uL Eosinophils # (0-0.7) k/uL Basophils # (0-0.2) k/uL PT 9.4 (9.0-12.0) sec INR 0.9 (<1.2) APTT 20.7 L (22.0-30.0) sec D-Dimer 0.40 (<0.60) mg/L FEU Sodium (137-145) mmol/L Potassium (3.5-5.1) mmol/L Chloride (98-107) mmol/L Carbon Dioxide (22-30) mmol/L Anion Gap mmol/L BUN (9-20) mg/dL Creatinine (0.66-1.25) mg/dL Est GFR (CKD-EPI)AfAm (>60 ml/min/1.73 sqM) Est GFR (CKD-EPI)NonAf (>60 ml/min/1.73 sqM) Glucose (74-99) mg/dL Plasma Lactic Acid Edd 1.3 (0.7-2.0) mmol/L Calcium (8.4-10.2) mg/dL Total Bilirubin (0.2-1.3) mg/dL AST (17-59) U/L ALT (4-49) U/L Alkaline Phosphatase (38-126) U/L Troponin I <0.012 (0.000-0.034) ng/mL Total Protein (6.3-8.2) g/dL Albumin (3.5-5.0) g/dL Urine Color Urine Appearance (Clear) Urine pH (5.0-8.0) Ur Specific Hilliard (1.001-1.035) Urine Protein (Negative) Urine Glucose (UA) (Negative) Urine Ketones (Negative) Urine Blood (Negative) Urine Nitrite (Negative) Urine Bilirubin (Negative) Urine Urobilinogen (<2.0) mg/dL Ur Leukocyte Esterase (Negative) Urine RBC (0-5) /hpf Urine WBC (0-5) /hpf Ur Squamous Epith Cells (0-4) /hpf Influenza Type A (PCR) (Not Detectd) Influenza Type B (PCR) (Not Detectd) RSV (PCR) (Not Detectd) SARS-CoV-2 (PCR) (Not Detectd) 11/13/22 Range/Units 12:45 WBC (3.8-10.6) k/uL RBC (4.30-5.90) m/uL Hgb (13.0-17.5) gm/dL Hct (39.0-53.0) % MCV (80.0-100.0) fL MCH (25.0-35.0) pg MCHC (31.0-37.0) g/dL RDW (11.5-15.5) % Plt Count (150-450) k/uL MPV Neutrophils % % Lymphocytes % % Monocytes % % Eosinophils % % Basophils % % Neutrophils # (1.3-7.7) k/uL Lymphocytes # (1.0-4.8) k/uL Monocytes # (0-1.0) k/uL Eosinophils # (0-0.7) k/uL Basophils # (0-0.2) k/uL PT (9.0-12.0) sec INR (<1.2) APTT (22.0-30.0) sec D-Dimer (<0.60) mg/L FEU Sodium (137-145) mmol/L Potassium (3.5-5.1) mmol/L Chloride (98-107) mmol/L Carbon Dioxide (22-30) mmol/L Anion Gap mmol/L BUN (9-20) mg/dL Creatinine (0.66-1.25) mg/dL Est GFR (CKD-EPI)AfAm (>60 ml/min/1.73 sqM) Est GFR (CKD-EPI)NonAf (>60 ml/min/1.73 sqM) Glucose (74-99) mg/dL Plasma Lactic Acid Edd (0.7-2.0) mmol/L Calcium (8.4-10.2) mg/dL Total Bilirubin (0.2-1.3) mg/dL AST (17-59) U/L ALT (4-49) U/L Alkaline Phosphatase (38-126) U/L Troponin I (0.000-0.034) ng/mL Total Protein (6.3-8.2) g/dL Albumin (3.5-5.0) g/dL Urine Color Urine Appearance (Clear) Urine pH (5.0-8.0) Ur Specific Hilliard (1.001-1.035) Urine Protein (Negative) Urine Glucose (UA) (Negative) Urine Ketones (Negative) Urine Blood (Negative) Urine Nitrite (Negative) Urine Bilirubin (Negative) Urine Urobilinogen (<2.0) mg/dL Ur Leukocyte Esterase (Negative) Urine RBC (0-5) /hpf Urine WBC (0-5) /hpf Ur Squamous Epith Cells (0-4) /hpf Influenza Type A (PCR) Not Detected (Not Detectd) Influenza Type B (PCR) Not Detected (Not Detectd) RSV (PCR) Not Detected (Not Detectd) SARS-CoV-2 (PCR) Not Detected (Not Detectd) - Radiology Data Radiology results: report reviewed, image reviewed Disposition Clinical Impression: Pneumonia, Right flank pain Disposition: HOME SELF-CARE Instructions (If sedation given, give patient instructions): Community Acquired Pneumonia (ED), Flank Pain (ED) Additional Instructions: Return to the emergency department with any new, worsening, or concerning symptoms. Take the antibiotic as prescribed for an additional 4 days, with your next dose beginning tomorrow, as you received a dose in the emergency department today. Follow up with your primary care provider in 1-2 days. Prescriptions: Azithromycin [Zithromax] 250 mg PO DAILY 4 Days #4 tab Is patient prescribed a controlled substance at d/c from ED?: No Referrals: González Muñiz MD [Primary Care Provider] - 1-2 days
--- NOTE | 2022-11-13 11:57 | CT ---
EXAMINATION TYPE: CT abdomen pelvis wo con CT DLP: 1412 mGycm, Automated exposure control for dose reduction was used. DATE OF EXAM: 11/13/2022 11:50 AM COMPARISON: CT abdomen pelvis most recent from 08/31/2020 CLINICAL INDICATION:Male, 57 years old with history of Right flank pain; Right sided flank pain TECHNIQUE: Axial CT of the abdomen and pelvis. Sagittal and coronal reformats were created on a [employer] workstation. Contrast used: None Oral contrast used: without Oral Contrast FINDINGS: LOWER CHEST: Scattered groundglass opacities are seen throughout the lung bases. ABDOMEN LIVER: Diffusely hypoattenuating parenchyma. GALLBLADDER AND BILE DUCTS: The gallbladder surgically absent. PANCREAS: Unremarkable. SPLEEN: Unremarkable. ADRENAL GLANDS: Unremarkable. KIDNEYS AND URETERS: No evidence of hydronephrosis or renal calculus. The ureters are unremarkable. Right hepatic cyst. PELVIS BLADDER: Unremarkable REPRODUCTIVE: Unremarkable. ABDOMEN & PELVIS STOMACH AND BOWEL: No evidence of bowel obstruction. Large stool burden throughout the colon. Appendi x not definitively visualized but there is no evidence for acute appendicitis. PERITONEUM/RETROPERITONEUM: No evidence of pneumoperitoneum or free fluid. VASCULATURE: No evidence of aortic aneurysm. MUSCULOSKELETAL: No acute osseous abnormalities, postsurgical changes to the lower spine. Hardware ap pears intact. Stimulator device with lead entering the thecal sac and terminating posterior thecal sa c of the lower thoracic spine. LYMPH NODES: No gross evidence for lymphadenopathy. SOFT TISSUE/ABDOMINAL WALL: Unremarkable IMPRESSION: 1. Ground glass opacities throughout the lung bases correlate for atypical pneumonia. 2. No right sided abdominal process to explain the patient's pain no obstructive uropathy. The append ix is not definitively visualized there is no secondary signs of appendicitis. 3. Moderate stool burden around the colon. 4. Hepatic steatosis.
[2022-11-13] MEDS ORDERED: IPRATROPIUM-ALBUTEROL 3 ML NEB INHALATION STA (12:10)
[2022-11-13 12:24] LABS: Basophils % (A) 0 %; Eosinophils # (A) 0.1 k/uL (0-0.7); Eosinophils % (A) 2 %; HCT 42.8 % (39.0-53.0); HGB 14.7 gm/dL (13.0-17.5); Lymphocytes # (A) 1.1 k/uL (1.0-4.8); Lymphocytes % (A) 18 %; MCH 28.5 pg (25.0-35.0); MCHC 34.2 g/dL (31.0-37.0); MCV 83.4 fL (80.0-100.0); Mean Platelet Volume 6.9; Monocytes # (A) 0.2 k/uL (0-1.0); Monocytes % (A) 4 %; Neutrophils # (A) 4.4 k/uL (1.3-7.7); Neutrophils % (A) 74 %; Platelet Count 233 k/uL (150-450); RBC 5.13 m/uL (4.30-5.90); RDW 14.1 % (11.5-15.5); WBC 5.9 k/uL (3.8-10.6)
[2022-11-13 12:47] LABS: INR 0.9 (<1.2); Prothrombin Time 9.4 sec (9.0-12.0)
[2022-11-13 12:54] LABS: Partial Thromboplastin Time 20.7 sec (22.0-30.0)
--- NOTE | 2022-11-13 12:56 | XR ---
EXAMINATION TYPE: XR chest 2V DATE OF EXAM: 11/13/2022 12:32 PM COMPARISON: Chest radiographs from 423 10/31/2022 TECHNIQUE: XR chest 2V Frontal and lateral views of the chest. CLINICAL INDICATION:Male, 57 years old with history of difficulty breathing; FINDINGS: Lungs/Pleura: There is no evidence of pleural effusion, focal consolidation, or pneumothorax. Pulmonary vascularity: Unremarkable. Heart/mediastinum: Cardiomediastinal silhouette is unremarkable. Musculoskeletal: No acute osseous pathology. Surgical changes to the neck. There is a neurostimulator projecting over the spine. IMPRESSION: No acute cardiopulmonary disease/process. No significant change from prior.
[2022-11-13 13:06] LABS: ALT 62 U/L (4-49); AST 23 U/L (17-59); African American GFR (CKD) >90 (>60 ml/min/1.73 sqM); Albumin 4.3 g/dL (3.5-5.0); Alkaline Phosphatase 115 U/L (38-126); Anion Gap 12 mmol/L; Blood Urea Nitrogen 14 mg/dL (9-20); Calcium 9.6 mg/dL (8.4-10.2); Carbon Dioxide 21 mmol/L (22-30); Chloride 102 mmol/L (98-107); Glucose 255 mg/dL (74-99); Non-African American GFR(CKD) >90 (>60 ml/min/1.73 sqM); Potassium 4.1 mmol/L (3.5-5.1); Sodium 135 mmol/L (137-145); Total Bilirubin 0.7 mg/dL (0.2-1.3); Total Protein 7.1 g/dL (6.3-8.2)
[2022-11-13] MEDS ORDERED: AZITHROMYCIN 500 MG TAB PO STA (13:07)
[2022-11-13 14:38] VITALS: BP 151/96; PULSE 104
== END 2022-11-13 15:00 | disposition home or self-care (01) ==
LOC: EC 10:31
DX: J18.9 Pneumonia, unspecified organism (principal); R10.9 Unspecified abdominal pain; R31.9 Hematuria, unspecified; E11.40 Type 2 diabetes mellitus with diabetic neuropathy, unspecified; I10 Essential (primary) hypertension; I25.2 Old myocardial infarction; I25.10 Atherosclerotic heart disease of native coronary artery without angina pectoris; J45.909 Unspecified asthma, uncomplicated; E78.5 Hyperlipidemia, unspecified; K21.9 Gastro-esophageal reflux disease without esophagitis; Z20.822 Contact with and (suspected) exposure to COVID-19; Z79.4 Long term (current) use of insulin; Z79.84 Long term (current) use of oral hypoglycemic drugs; Z79.899 Other long term (current) drug therapy; Z88.1 Allergy status to other antibiotic agents; Z88.5 Allergy status to narcotic agent; Z88.8 Allergy status to other drugs, medicaments and biological substances; Z86.711 Personal history of pulmonary embolism; Z90.49 Acquired absence of other specified parts of digestive tract
CPT/HCPCS: 36415; 94640; 93005; 85379; 80053; 83605; 84484; 85025; 85610; 85730; 81001; 87636; 71046; 74176; 99284; 96374; 96376 ×2; 96361; J1170

== ENCOUNTER 2022-11-14 06:32 | Emergency (ER) | payer OTHER ==
[2022-11-14] MEDS ORDERED: guaiFENesin-DM 600/30MG 1 EACH TAB.ER.12H PO STA (06:46)
[2022-11-14] MEDS ORDERED: IPRATROPIUM-ALBUTEROL 3 ML NEB INHALATION STA ×2 (06:46→09:06)
[2022-11-14] MEDS ORDERED: ONDANSETRON 4 MG/2 ML VIAL IVP STA (06:47)
[2022-11-14] MEDS ORDERED: HYDROmorphone 1 MG/ML 1 ML SYRINGE IVP STA ×3 (06:47→10:56)
--- NOTE | 2022-11-14 06:52 | ED ---
SOB HPI - General Chief Complaint: Upper Respiratory Infection Stated Complaint: Chest Pain, Abdominal pain, Difficulty Breathing Time Seen by Provider: 11/14/22 06:38 Source: patient, RN notes reviewed Mode of arrival: wheelchair Limitations: no limitations - History of Present Illness Initial Comments: This is a 57-year-old male who presents to the emergency department for right flank pain, shortness of breath, and coughing. I evaluated the patient here yesterday for the same complaints. He is also well known to this emergency department for very similar complaints. Workup yesterday did not reveal any evidence of kidney stones, however he was diagnosed with an atypical pneumonia. He was given a dose of azithromycin here and discharged home in stable condition. States that overnight, he started to have increasing pain again. States that the pain started to make him vomit. He also felt increasingly short of breath despite giving himself a breathing treatment and could not control his coughing. He does not have any chest heaviness or tightness, just discomfort from all the coughing. Denies any fevers, chills, sore throat, palpitations, diarrhea, or headaches. MD Complaint: shortness of breath, cough - Related Data Home Medications Medication Instructions Recorded Confirmed Insulin Lispro [humaLOG Kwikpen] See Protocol SQ ACHS 06/16/21 10/20/22 oxyCODONE-APAP 5-325MG [Percocet 1 tab PO Q6H 09/12/21 10/20/22 5-325 mg] Gabapentin [Neurontin] 400 mg PO TID 12/25/21 10/20/22 Aspirin EC [Ecotrin Low Dose] 81 mg PO DAILY 05/23/22 10/20/22 Atorvastatin Calcium [Lipitor] 40 mg PO HS 05/23/22 10/20/22 Baclofen 10 mg PO TID 05/23/22 10/20/22 Empagliflozin [Jardiance] 25 mg PO DAILY 05/23/22 10/20/22 Metoprolol Tartrate [Lopressor] 50 mg PO BID 05/23/22 10/20/22 Omeprazole Magnesium [PriLOSEC OTC] 20 mg PO DAILY PRN 05/23/22 10/20/22 lisinopriL [Zestril] 5 mg PO BID 05/23/22 10/20/22 Insulin Glargine,Hum.rec.anlog 24 units SQ BID 10/20/22 10/20/22 [Lantus Solostar Pen] Ondansetron Odt [Zofran ODT] 4 mg PO Q6H PRN 10/20/22 10/20/22 Previous Rx's Medication Instructions Recorded Tamsulosin [Flomax] 0.4 mg PO PC-BRKFST 90 Days #90 cap 10/25/22 Azithromycin [Zithromax] 250 mg PO DAILY 4 Days #4 tab 11/13/22 predniSONE 50 mg PO DAILY 5 Days #5 tab 11/14/22 Allergies Allergy/AdvReac Type Severity Reaction Status Date / Time doxycycline Allergy Swelling Verified 11/13/22 10:54 ketorolac tromethamine Allergy Rash/Hives Verified 11/13/22 10:54 [From Toradol] morphine Allergy Rash/Hives Verified 11/13/22 10:54 metoclopramide HCl AdvReac Dystonic Verified 11/13/22 10:54 [From Reglan] Reaction prochlorperazine edisylate AdvReac Dystonic Verified 11/13/22 10:54 [From Compazine] Reaction prochlorperazine maleate AdvReac Dystonic Verified 11/13/22 10:54 [From Compazine] Reaction Review of Systems ROS Statement: Those systems with pertinent positive or pertinent negative responses have been documented in the HPI. ROS Other: All systems not noted in ROS Statement are negative. Past Medical History Past Medical History: Asthma, Coronary Artery Disease (CAD), Chest Pain / Angina, Diabetes Mellitus, GERD/Reflux, GI Bleed, Hyperlipidemia, Hypertension, Myocardial Infarction (MA), Mitral Valve Prolapse (MVP), Pulmonary Embolus (PE), Sleep Apnea/CPAP/BIPAP Additional Past Medical History / Comment(s): Asthmatic bronchitis-chronic, IDDM type II, neuropathy bilateral feet, lower and upper GI bleeds, PUD, diverticulitis, colectomy d/t benign mass/intusseption, BPH, renal cysts, nephrolithiais, UTI with sepsis, chronic back pain 2ndary to herniated lumbar discs/sciatica, JARED does not use his Cpap, MVP, murmur Last Myocardial Infarction Date:: 2011 History of Any Multi-Drug Resistant Organisms: C-DIFF, MRSA Date of last positivie culture/infection: 2016 MDRO Source:: left axilla Past Surgical History: Appendectomy, Back Surgery, Cholecystectomy, Heart Catheterization, Hernia Repair Additional Past Surgical History / Comment(s): Lumbar decompression/fusion/laminectomy, spinal stimulator, T lift procedure, L inguinal hernia repair, multiple ESWLs/stents/double J caths, colonoscopy, 02/2020 colectomy, EGDs for food obstructions and dilations Past Anesthesia/Blood Transfusion Reactions: No Reported Reaction Past Psychological History: No Psychological Hx Reported Smoking Status: Never smoker Past Alcohol Use History: None Reported Past Drug Use History: None Reported - Past Family History Father Family Medical History: Chest Pain / Angina Additional Family Medical History / Comment(s): "lung problems" Mother Family Medical History: Cancer, Chest Pain / Angina, Congestive Heart Failure (CHF), Osteoarthritis (OA), Thyroid Disorder Additional Family Medical History / Comment(s): "female cancer" General Exam Limitations: no limitations General appearance: alert, anxious Head exam: Present: atraumatic, normocephalic, normal inspection Respiratory exam: Present: wheezes, decreased breath sounds, prolonged expiratory Cardiovascular Exam: Present: normal rhythm, tachycardia GI/Abdominal exam: Present: soft, tenderness (RLQ), normal bowel sounds. Absent: distended, guarding, rebound, rigid Back exam: Present: CVA tenderness (R). Absent: CVA tenderness (L) Neurological exam: Present: alert, oriented X3, CN II-XII intact Psychiatric exam: Present: anxious Skin exam: Present: warm, dry, intact, normal color. Absent: rash Course Vital Signs 11/14/22 11/14/22 11/14/22 06:33 06:51 07:31 Temperature 98.3 F 99.0 F Pulse Rate 104 H 110 H 104 H Respiratory 20 20 20 Rate Blood Pressure 156/94 186/114 O2 Sat by Pulse 98 97 Oximetry 11/14/22 11/14/22 11/14/22 07:41 08:00 09:30 Temperature Pulse Rate 109 H 110 H 108 H Respiratory 22 22 Rate Blood Pressure 159/80 153/97 O2 Sat by Pulse 97 96 Oximetry 11/14/22 11/14/22 11/14/22 09:36 09:46 11:28 Temperature Pulse Rate 112 H 113 H 104 H Respiratory 22 Rate Blood Pressure 144/93 O2 Sat by Pulse 97 Oximetry Medical Decision Making - Medical Decision Making This is a 57-year-old male who presents to the emergency department for coughing, shortness of breath, and right flank pain. Was pt. sent in by a medical professional or institution? @ -No Did you speak to anyone other than the patient for history? @ -No Did you review nursing and triage notes? @ -Yes, and I agree, it is accurate with regards to the patient's symptoms. Were old charts reviewed? @ -Yes, blood work, chest x-ray, and CT scan from yesterday. Differential Diagnosis? @ -Differential Dyspnea: Coronary syndrome, arrhythmia, tamponade, asthma, COPD, pulmonary embolism, pneumonia, pneumothorax, pulmonary effusion, anaphylaxis, diabetic ketoacidosis, flailed chest, pulmonary contusion, diaphragmatic rupture, anemia, neuromuscular, this is not meant to be an all-inclusive list. -Differential Back Pain: Strain, zoster, cauda equina syndrome, epidural abscess, vertebral osteomyelitis, discitis, fracture, subluxation, disc herniation, DJD, spinal s tenosis, dissection, AAA, pancreatitis, peptic ulcer disease, pyelonephritis, kidney stone, this is not meant to be an all-inclusive list. EKG interpreted by me (3pts min.)? @ -Sinus tachycardia. Ventricular rate 114 bpm, MI interval 156 ms, QRS duration 112 ms, QTC 423 ms. X-rays interpreted by me (1pt min.)? @ -Chest x-ray obtained, my interpretation identifies no localized consolidations or infiltrates. What testing was considered but not performed? (CT, X-rays, U/S, labs)? Why? @ -None What meds were considered but not given? Why? @ -None Did you discuss the management of the patient with other professionals? @ -No Did you reconcile home meds? @ -No Was smoking cessation discussed for >3mins.? @ -No Was critical care preformed (if so, how long)? @ -No Were there social determinants of health that impacted care today? How? (Homelessness, low income, unemployed, alcoholism, drug addiction, transportation, low edu. Level, literacy, decrease access to med. care, group home, rehab)? @ -No Was there de-escalation of care discussed even if they declined? (Discuss DNR or withdrawal of care, Hospice)? @ -No What co-morbidities impacted this encounter? (DM, HTN, Smoking, COPD, CAD, Cancer, CVA, Hep., AIDS, mental health diagnosis, sleep apnea, morbid obesity)? @ -Asthma, COPD, CAD, DM, HTN, HLD, GERD Was patient admitted / discharged? @ -Discharged. Blood work, computed tomography scan of the abdomen and pelvis, and chest x-ray from yesterday were thoroughly reviewed. Atypical pneumonia and a stool burden were diagnosed, there were no other acute findings to account for his symptoms. COVID, influenza, and RSV testing were negative yesterday, did not repeat today. Temperature slightly elevated at 99 degrees F, which was subse quently treated with Tylenol. Chest x-ray revealed no acute findings. However, this was the same case yesterday and the ground glass opacities were only identified on the computed tomography scan. Work up obtained today was also nonactionable. He was given 2 DuoNeb breathing treatments in the emergency department and pain was well controlled. Advised the patient that this can continue to be managed on an outpatient basis and there is no indication for admission at this time. Case management got him an appointment with his primary care provider for tomorrow. He will follow up as scheduled. He is instructed to continue taking the antibiotic and prednisone as prescribed. Undiagnosed new problem with uncertain prognosis? @ -None Drug Therapy requiring intensive monitoring for toxicity (Heparin, Nitro, Insulin, Cardizem)? @ -None Were any procedures done? @ -None Diagnosis/symptom? @ -Atypical pneumonia, right flank pain Acute, or Chronic, or Acute on Chronic? @ -Acute Uncomplicated (without systemic symptoms) or Complicated (systemic symptoms)? @ -Uncomplicated Side effects of treatment? @ -None Exacerbation, Progression, or Severe Exacerbation] @ -Not applicable Poses a threat to life or bodily function? @ -No Return precautions reviewed in depth, the patient is instructed to return to the emergency department with any new, worsening, or concerning symptoms. Patient verbalized understanding. This case was discussed in detail with the attending ED physician, Dr. Gusman. Presentation, findings, and treatment plan discussed in detail as well. - Lab Data Result diagrams: 11/14/22 07:16 11/14/22 07:16 Lab Results 11/14/22 11/14/22 11/14/22 Range/Units 07:16 07:16 07:16 WBC 4.5 (3.8-10.6) k/uL RBC 5.22 (4.30-5.90) m/uL Hgb 14.7 (13.0-17.5) gm/dL Hct 43.6 (39.0-53.0) % MCV 83.6 (80.0-100.0) fL MCH 28.2 (25.0-35.0) pg MCHC 33.7 (31.0-37.0) g/dL RDW 14.1 (11.5-15.5) % Plt Count 266 (150-450) k/uL MPV 7.1 Neutrophils % 67 % Lymphocytes % 21 % Monocytes % 5 % Eosinophils % 3 % Basophils % 0 % Neutrophils # 3.0 (1.3-7.7) k/uL Lymphocytes # 1.0 (1.0-4.8) k/uL Monocytes # 0.2 (0-1.0) k/uL Eosinophils # 0.1 (0-0.7) k/uL Basophils # 0.0 (0-0.2) k/uL PT 9.3 (9.0-12.0) sec INR 0.9 (<1.2) APTT 21.1 L (22.0-30.0) sec D-Dimer 0.42 (<0.60) mg/L FEU Sodium (137-145) mmol/L Potassium (3.5-5.1) mmol/L Chloride (98-107) mmol/L Carbon Dioxide (22-30) mmol/L Anion Gap mmol/L BUN (9-20) mg/dL Creatinine (0.66-1.25) mg/dL Est GFR (CKD-EPI)AfAm (>60 ml/min/1.73 sqM) Est GFR (CKD-EPI)NonAf (>60 ml/min/1.73 sqM) Glucose (74-99) mg/dL Lactic Ac Sepsis Rflx Plasma Lactic Acid Edd (0.7-2.0) mmol/L Calcium (8.4-10.2) mg/dL Total Bilirubin (0.2-1.3) mg/dL AST (17-59) U/L ALT (4-49) U/L Alkaline Phosphatase (38-126) U/L Troponin I (0.000-0.034) ng/mL Total Protein (6.3-8.2) g/dL Albumin (3.5-5.0) g/dL Urine Color Light Yellow Urine Appearance Clear (Clear) Urine pH 6.0 (5.0-8.0) Ur Specific [place] 1.036 H (1.001-1.035) Urine Protein Negative (Negative) Urine Glucose (UA) 4+ H (Negative) Urine Ketones Trace H (Negative) Urine Blood Large H (Negative) Urine Nitrite Negative (Negative) Urine Bilirubin Negative (Negative) Urine Urobilinogen <2.0 (<2.0) mg/dL Ur Leukocyte Esterase Negative (Negative) Urine RBC >182 H (0-5) /hpf Urine WBC 2 (0-5) /hpf Ur Squamous Epith Cells <1 (0-4) /hpf Urine Opiates Screen (NotDetected) Ur Oxycodone Screen (NotDetected) Urine Methadone Screen (NotDetected) Ur Propoxyphene Screen (NotDetected) Ur Barbiturates Screen (NotDetected) U Tricyclic Antidepress (NotDetected) Ur Phencyclidine Scrn (NotDetected) Ur Amphetamines Screen (NotDetected) U Methamphetamines Scrn (NotDetected) U Benzodiazepines Scrn (NotDetected) Urine Cocaine Screen (NotDetected) U Marijuana (THC) Screen (NotDetected) 11/14/22 11/14/22 11/14/22 Range/Units 07:16 07:16 07:16 WBC (3.8-10.6) k/uL RBC (4.30-5.90) m/uL Hgb (13.0-17.5) gm/dL Hct (39.0-53.0) % MCV (80.0-100.0) fL MCH (25.0-35.0) pg MCHC (31.0-37.0) g/dL RDW (11.5-15.5) % Plt Count (150-450) k/uL MPV Neutrophils % % Lymphocytes % % Monocytes % % Eosinophils % % Basophils % % Neutrophils # (1.3-7.7) k/uL Lymphocytes # (1.0-4.8) k/uL Monocytes # (0-1.0) k/uL Eosinophils # (0-0.7) k/uL Basophils # (0-0.2) k/uL PT (9.0-12.0) sec INR (<1.2) APTT (22.0-30.0) sec D-Dimer (<0.60) mg/L FEU Sodium 134 L (137-145) mmol/L Potassium 4.9 (3.5-5.1) mmol/L Chloride 101 (98-107) mmol/L Carbon Dioxide 20 L (22-30) mmol/L Anion Gap 13 mmol/L BUN 11 (9-20) mg/dL Creatinine 0.42 L (0.66-1.25) mg/dL Est GFR (CKD-EPI)AfAm >90 (>60 ml/min/1.73 sqM) Est GFR (CKD-EPI)NonAf >90 (>60 ml/min/1.73 sqM) Glucose 295 H (74-99) mg/dL Lactic Ac Sepsis Rflx Plasma Lactic Acid Edd 2.4 H* (0.7-2.0) mmol/L Calcium 9.5 (8.4-10.2) mg/dL Total Bilirubin 0.9 (0.2-1.3) mg/dL AST 31 (17-59) U/L ALT 51 H (4-49) U/L Alkaline Phosphatase 113 (38-126) U/L Troponin I <0.012 (0.000-0.034) ng/mL Total Protein 7.5 (6.3-8.2) g/dL Albumin 4.4 (3.5-5.0) g/dL Urine Color Urine Appearance (Clear) Urine pH (5.0-8.0) Ur Specific [place] (1.001-1.035) Urine Protein (Negative) Urine Glucose (UA) (Negative) Urine Ketones (Negative) Urine Blood (Negative) Urine Nitrite (Negative) Urine Bilirubin (Negative) Urine Urobilinogen (<2.0) mg/dL Ur Leukocyte Esterase (Negative) Urine RBC (0-5) /hpf Urine WBC (0-5) /hpf Ur Squamous Epith Cells (0-4) /hpf Urine Opiates Screen (NotDetected) Ur Oxycodone Screen (NotDetected) Urine Methadone Screen (NotDetected) Ur Propoxyphene Screen (NotDetected) Ur Barbiturates Screen (NotDetected) U Tricyclic Antidepress (NotDetected) Ur Phencyclidine Scrn (NotDetected) Ur Amphetamines Screen (NotDetected) U Methamphetamines Scrn (NotDetected) U Benzodiazepines Scrn (NotDetected) Urine Cocaine Screen (NotDetected) U Marijuana (THC) Screen (NotDetected) 11/14/22 11/14/22 Range/Units 07:16 08:58 WBC (3.8-10.6) k/uL RBC (4.30-5.90) m/uL Hgb (13.0-17.5) gm/dL Hct (39.0-53.0) % MCV (80.0-100.0) fL MCH (25.0-35.0) pg MCHC (31.0-37.0) g/dL RDW (11.5-15.5) % Plt Count (150-450) k/uL MPV Neutrophils % % Lymphocytes % % Monocytes % % Eosinophils % % Basophils % % Neutrophils # (1.3-7.7) k/uL Lymphocytes # (1.0-4.8) k/uL Monocytes # (0-1.0) k/uL Eosinophils # (0-0.7) k/uL Basophils # (0-0.2) k/uL PT (9.0-12.0) sec INR (<1.2) APTT (22.0-30.0) sec D-Dimer (<0.60) mg/L FEU Sodium (137-145) mmol/L Potassium (3.5-5.1) mmol/L Chloride (98-107) mmol/L Carbon Dioxide (22-30) mmol/L Anion Gap mmol/L BUN (9-20) mg/dL Creatinine (0.66-1.25) mg/dL Est GFR (CKD-EPI)AfAm (>60 ml/min/1.73 sqM) Est GFR (CKD-EPI)NonAf (>60 ml/min/1.73 sqM) Glucose (74-99) mg/dL Lactic Ac Sepsis Rflx Y Plasma Lactic Acid Edd (0.7-2.0) mmol/L Calcium (8.4-10.2) mg/dL Total Bilirubin (0.2-1.3) mg/dL AST (17-59) U/L ALT (4-49) U/L Alkaline Phosphatase (38-126) U/L Troponin I (0.000-0.034) ng/mL Total Protein (6.3-8.2) g/dL Albumin (3.5-5.0) g/dL Urine Color Urine Appearance (Clear) Urine pH (5.0-8.0) Ur Specific [place] (1.001-1.035) Urine Protein (Negative) Urine Glucose (UA) (Negative) Urine Ketones (Negative) Urine Blood (Negative) Urine Nitrite (Negative) Urine Bilirubin (Negative) Urine Urobilinogen (<2.0) mg/dL Ur Leukocyte Esterase (Negative) Urine RBC (0-5) /hpf Urine WBC (0-5) /hpf Ur Squamous Epith Cells (0-4) /hpf Urine Opiates Screen Detected H (NotDetected) Ur Oxycodone Screen Detected H (NotDetected) Urine Methadone Screen Not Detected (NotDetected) Ur Propoxyphene Screen Not Detected (NotDetected) Ur Barbiturates Screen Not Detected (NotDetected) U Tricyclic Antidepress Not Detected (NotDetected) Ur Phencyclidine Scrn Not Detected (NotDetected) Ur Amphetamines Screen Not Detected (NotDetected) U Methamphetamines Scrn Not Detected (NotDetected) U Benzodiazepines Scrn Not Detected (NotDetected) Urine Cocaine Screen Not Detected (NotDetected) U Marijuana (THC) Screen Not Detected (NotDetected) - Radiology Data Radiology results: report reviewed, image reviewed Disposition Clinical Impression: Pneumonia, Right flank pain Disposition: HOME SELF-CARE Instructions (If sedation given, give patient instructions): Community Acquired Pneumonia (ED) Additional Instructions: Return to the emergency department with any new, worsening, or concerning symptoms. Continue taking the antibiotics as prescribed. Take the prednisone daily for 5 days. Use [id number] cough medication as needed. Use the breathing treatments consistently every 4-6 hours. Follow up with Dr. Muñiz at 2:15pm tomorrow. Prescriptions: predniSONE 50 mg PO DAILY 5 Days #5 tab Is patient prescribed a controlled substance at d/c from ED?: No Referrals: González Muñiz MD [Primary Care Provider] - 11/15/22 2:15 pm
[2022-11-14 06:58] VITALS: TEMP 99
[2022-11-14] MEDS ORDERED: ACETAMINOPHEN TAB 500 MG TAB PO STA (07:02)
--- NOTE | 2022-11-14 07:39 | XR ---
EXAMINATION TYPE: XR chest 2V DATE OF EXAM: 11/14/2022 COMPARISON: 11/13/2022 HISTORY: 57 year-old male shortness of breath, difficulty breathing TECHNIQUE: PA and lateral views FINDINGS: ACDF hardware. Spinal stimulator centered along the lower thoracic spinal canal. Heart normal size. M ild hyperinflation. No consolidation or pleural effusion. [facility] in the mid thoracic spine. IMPRESSION: COPD. No acute cardiopulmonary process.
[2022-11-14 08:04] VITALS: RESP 22
[2022-11-14 08:45] LABS: Appearance,Urine Clear (Clear); Basophils % (A) 0 %; Bilirubin,Urine Negative (Negative); Blood,Urine Large (Negative); Color,Urine Light Yellow; Eosinophils # (A) 0.1 k/uL (0-0.7); Eosinophils % (A) 3 %; Glucose,Urine (UA) 4+ (Negative); HCT 43.6 % (39.0-53.0); HGB 14.7 gm/dL (13.0-17.5); Ketones,Urine Trace (Negative); Leukocyte Esterase,Urine Negative (Negative); Lymphocytes % (A) 21 %; MCH 28.2 pg (25.0-35.0); MCHC 33.7 g/dL (31.0-37.0); MCV 83.6 fL (80.0-100.0); Mean Platelet Volume 7.1; Monocytes # (A) 0.2 k/uL (0-1.0); Monocytes % (A) 5 %; Neutrophils % (A) 67 %; Nitrite,Urine Negative (Negative); Platelet Count 266 k/uL (150-450); Protein,Urine Negative (Negative); RBC 5.22 m/uL (4.30-5.90); RBC,Urine >182 /hpf (0-5); RDW 14.1 % (11.5-15.5); Specific Gravity,Urine 1.036 (1.001-1.035); Squamous Epithelial Cell,Urine <1 /hpf (0-4); Urobilinogen,Urine <2.0 mg/dL (<2.0); WBC 4.5 k/uL (3.8-10.6); WBC,Urine 2 /hpf (0-5)
[2022-11-14 08:51] LABS: ALT 51 U/L (4-49); AST 31 U/L (17-59); African American GFR (CKD) >90 (>60 ml/min/1.73 sqM); Albumin 4.4 g/dL (3.5-5.0); Alkaline Phosphatase 113 U/L (38-126); Anion Gap 13 mmol/L; Blood Urea Nitrogen 11 mg/dL (9-20); Calcium 9.5 mg/dL (8.4-10.2); Carbon Dioxide 20 mmol/L (22-30); Chloride 101 mmol/L (98-107); Glucose 295 mg/dL (74-99); Non-African American GFR(CKD) >90 (>60 ml/min/1.73 sqM); Sodium 134 mmol/L (137-145); Total Bilirubin 0.9 mg/dL (0.2-1.3); Total Protein 7.5 g/dL (6.3-8.2)
[2022-11-14 08:56] LABS: Potassium 4.9 mmol/L (3.5-5.1)
[2022-11-14] MEDS ORDERED: SODIUM CHLORIDE 0.9% 1,000 ML IV STA (09:05)
[2022-11-14 09:11] LABS: INR 0.9 (<1.2); Prothrombin Time 9.3 sec (9.0-12.0)
[2022-11-14 09:20] LABS: Partial Thromboplastin Time 21.1 sec (22.0-30.0)
[2022-11-14 09:46] LABS: Amphetamine Screen,Urine Not Detected (NotDetected); Barbiturate Screen,Urine Not Detected (NotDetected); Benzodiazepines Screen,Urine Not Detected (NotDetected); Cocaine Screen,Urine Not Detected (NotDetected); Methadone Screen, Urine Not Detected (NotDetected); Opiate Screen,Urine Detected (NotDetected); Phencyclidine Screen,Urine Not Detected (NotDetected); Tricyclic Antidepressant,Urine Not Detected (NotDetected); Urn Cannabinoid Scrn Not Detected (NotDetected)
[2022-11-14 09:47] LABS: Oxycodone Screen, Urine Detected (NotDetected)
[2022-11-14] MEDS ORDERED: LORazepam 2 MG/ML INJ IV STA (10:56)
[2022-11-14 11:35] VITALS: BP 144/93; PULSE 104
== END 2022-11-14 11:35 | disposition home or self-care (01) ==
LOC: EC 06:32
DX: J18.9 Pneumonia, unspecified organism (principal); R10.9 Unspecified abdominal pain; I10 Essential (primary) hypertension; E11.9 Type 2 diabetes mellitus without complications; E78.5 Hyperlipidemia, unspecified; G47.33 Obstructive sleep apnea (adult) (pediatric); I25.10 Atherosclerotic heart disease of native coronary artery without angina pectoris; I25.2 Old myocardial infarction; J44.0 Chronic obstructive pulmonary disease with (acute) lower respiratory infection; K21.9 Gastro-esophageal reflux disease without esophagitis; Z79.4 Long term (current) use of insulin; Z79.52 Long term (current) use of systemic steroids; Z79.82 Long term (current) use of aspirin; Z79.84 Long term (current) use of oral hypoglycemic drugs; Z79.899 Other long term (current) drug therapy; Z88.8 Allergy status to other drugs, medicaments and biological substances; Z88.5 Allergy status to narcotic agent
CPT/HCPCS: 36415; 94640 ×2; 93005; 85379; 80053; 83605; 84484; 85025; 85610; 85730; 81001; 80306; 71046; 99285; 96374; 96375; 96376 ×2; 96361; J2405; J1170

== ENCOUNTER 2022-12-19 10:50 | Emergency (ER) | payer OTHER ==
[2022-12-19 10:53] VITALS: RESP 20; TEMP 98.2
[2022-12-19] MEDS ORDERED: ACETAMINOPHEN TAB 500 MG TAB PO STA (12:23)
--- NOTE | 2022-12-19 12:25 | ED ---
Back Pain HPI - General Chief Complaint: Back Pain/Injury Stated Complaint: back pain Time Seen by Provider: 12/19/22 12:00 Source: patient Limitations: no limitations - History of Present Illness Initial Comments: 57-year-old male well known to the ED since with the chief complaint of back pain. Patient states she was helping his friend move yesterday when his right leg slipped causing him to fall backwards onto the wooden stairs. His neck hyperextended and now notes neck pain. Also notes low back pain. Denies head injury at this time. Denies nausea or vomiting. Denies numbness or weakness. Denies incontinence or saddle anesthesia. No other complaints. - Related Data Home Medications Medication Instructions Recorded Confirmed Insulin Lispro [humaLOG Kwikpen] See Protocol SQ ACHS 06/16/21 10/20/22 oxyCODONE-APAP 5-325MG [Percocet 1 tab PO Q6H 09/12/21 10/20/22 5-325 mg] Gabapentin [Neurontin] 400 mg PO TID 12/25/21 10/20/22 Aspirin EC [Ecotrin Low Dose] 81 mg PO DAILY 05/23/22 10/20/22 Atorvastatin Calcium [Lipitor] 40 mg PO HS 05/23/22 10/20/22 Baclofen 10 mg PO TID 05/23/22 10/20/22 Empagliflozin [Jardiance] 25 mg PO DAILY 05/23/22 10/20/22 Metoprolol Tartrate [Lopressor] 50 mg PO BID 05/23/22 10/20/22 Omeprazole Magnesium [PriLOSEC OTC] 20 mg PO DAILY PRN 05/23/22 10/20/22 lisinopriL [Zestril] 5 mg PO BID 05/23/22 10/20/22 Insulin Glargine,Hum.rec.anlog 24 units SQ BID 10/20/22 10/20/22 [Lantus Solostar Pen] Ondansetron Odt [Zofran ODT] 4 mg PO Q6H PRN 10/20/22 10/20/22 Previous Rx's Medication Instructions Recorded Tamsulosin [Flomax] 0.4 mg PO PC-BRKFST 90 Days #90 cap 10/25/22 Azithromycin [Zithromax] 250 mg PO DAILY 4 Days #4 tab 11/13/22 predniSONE 50 mg PO DAILY 5 Days #5 tab 11/14/22 Allergies Allergy/AdvReac Type Severity Reaction Status Date / Time doxycycline Allergy Swelling Verified 11/13/22 10:54 ketorolac tromethamine Allergy Rash/Hives Verified 11/13/22 10:54 [From Toradol] morphine Allergy Rash/Hives Verified 11/13/22 10:54 metoclopramide HCl AdvReac Dystonic Verified 11/13/22 10:54 [From Reglan] Reaction prochlorperazine edisylate AdvReac Dystonic Verified 11/13/22 10:54 [From Compazine] Reaction prochlorperazine maleate AdvReac Dystonic Verified 11/13/22 10:54 [From Compazine] Reaction Review of Systems ROS Statement: Those systems with pertinent positive or pertinent negative responses have been documented in the HPI. ROS Other: All systems not noted in ROS Statement are negative. Past Medical History Past Medical History: Asthma, Coronary Artery Disease (CAD), Chest Pain / Angina, Diabetes Mellitus, GERD/Reflux, GI Bleed, Hyperlipidemia, Hypertension, Myocardial Infarction (NM), Mitral Valve Prolapse (MVP), Pulmonary Embolus (PE), Sleep Apnea/CPAP/BIPAP Additional Past Medical History / Comment(s): Asthmatic bronchitis-chronic, IDDM type II, neuropathy bilateral feet, lower and upper GI bleeds, PUD, diverticulitis, colectomy d/t benign mass/intusseption, BPH, renal cysts, nephrolithiais, UTI with sepsis, chronic back pain 2ndary to herniated lumbar discs/sciatica, JARED does not use his Cpap, MVP, murmur Last Myocardial Infarction Date:: 2011 History of Any Multi-Drug Resistant Organisms: C-DIFF, MRSA Date of last positivie culture/infection: 2016 MDRO Source:: left axilla Past Surgical History: Appendectomy, Back Surgery, Cholecystectomy, Heart Catheterization, Hernia Repair Additional Past Surgical History / Comment(s): Lumbar decompression/fusion/laminectomy, spinal stimulator, T lift procedure, L inguinal hernia repair, multiple ESWLs/stents/double J caths, colonoscopy, 02/2020 colectomy, EGDs for food obstructions and dilations Past Anesthesia/Blood Transfusion Reactions: No Reported Reaction Past Psychological History: No Psychological Hx Reported Smoking Status: Never smoker Past Alcohol Use History: None Reported Past Drug Use History: None Reported - Past Family History Father Family Medical History: Chest Pain / Angina Additional Family Medical History / Comment(s): "lung problems" Mother Family Medical History: Cancer, Chest Pain / Angina, Congestive Heart Failure (CHF), Osteoarthritis (OA), Thyroid Disorder Additional Family Medical History / Comment(s): "female cancer" General Exam Limitations: no limitations General appearance: alert, in no apparent distress Head exam: Present: atraumatic, normocephalic Eye exam: Present: normal appearance ENT exam: Present: mucous membranes moist Neck exam: Present: other (No midline cervical spinal tenderness to palpation) Respiratory exam: Present: normal lung sounds bilaterally Cardiovascular Exam: Present: regular rate (At time of evaluation patients regular rate.) Extremities exam: Present: other (-Bilateral upper extremities equal and intact. Strength in the right lower extremity 4/5, strength and left lower extremity 5 out of 5 she states this is baseline for him.) Back exam: Present: other (No midline thoracic or lumbar spinal tenderness to palpation) Neurological exam: Present: alert, oriented X3 Skin exam: Present: warm, dry Course Vital Signs 12/19/22 12/19/22 10:51 15:27 Temperature 98.2 F 98.2 F Pulse Rate 113 H 76 Respiratory 20 20 Rate Blood Pressure 179/97 146/82 O2 Sat by Pulse 99 99 Oximetry - Reevaluation(s) Reevaluation #1: 12/19/22 13:05 Spoke with radiology. May be new lucency cervical x-ray, recommended computed tomography scan. Medical Decision Making - Medical Decision Making Was pt. sent in by a medical professional or institution (, PA, [employer], urgent care, hospital, or jail...) When possible be specific @ -No Did you speak to anyone other than the patient for history (EMS, parent, family, police, friend...)? What history was obtained from this source @ -No Did you review nursing and triage notes (agree or disagree)? Why? @ -I reviewed and agree with nursing and triage notes Were old charts reviewed (outside hosp., previous admission, EMS record, old EKG, old radiological studies, urgent care reports/EKG's, jail records)? Report findings @ -Old charts reviewed showing multiple visits for the same in the past. Patient has been given Tylenol multiple times during his past visits due to known ALLERGIES to Toradol and morphine. Differential Diagnosis (chest pain, altered mental status, abdominal pain women, abdominal pain men, vaginal bleeding, weakness, fever, dyspnea, syncope, headache, dizziness, GI bleed, back pain, seizure, CVA, palpatations, mental health, musculoskeletal)? @ -Differential Back Pain: Strain, zoster, cauda equina syndrome, epidural abscess, vertebral osteomyelitis, discitis, fracture, subluxation, disc herniation, DJD, spinal stenosis, dissection, AAA, pancreatitis, peptic ulcer disease, pyelonephritis, kidney stone, this is not meant to be an all-inclusive list. EKG interpreted by me (3pts min.). @ -As above X-rays interpreted by me (1pt min.). @ -X-ray of the lumbar spine unremarkable however x-ray of cervical spine showed a linear lucency at the level of C4 to C5 new from prior possibly representing a fracture. CT interpreted by me (1pt min.). @ -CT shows stable old lucency within C4-C5 with no acute fracture U/S interpreted by me (1pt. min.). @ -None done What testing was considered but not performed or refused? (CT, X-rays, U/S, labs)? Why? @ -None What meds were considered but not given or refused? Why? @ -None Did you discuss the management of the patient with other professionals (professionals i.e. , PA, [employer], lab, RT, psych nurse, certified social workers in health care, twister operator, teacher, immigration officer, leather case finisher)? Give summary @ -No Was smoking cessation discussed for >3mins.? @ -No Was critical care preformed (if so, how long)? @ -No Were there social determinants of health that impacted care today? How? (Homelessness, low income, unemployed, alcoholism, drug addiction, transportation, low edu. Level, literacy, decrease access to med. care, group home, rehab)? @ -No Was there de-escalation of care discussed even if they declined (Discuss DNR or withdrawal of care, Hospice)? DNR status @ -No What co-morbidities impacted this encounter? (DM, HTN, Smoking, COPD, CAD, Cancer, CVA, ARF, Chemo, Hep., AIDS, mental health diagnosis, sleep apnea, morbid obesity)? @ -None Was patient admitted / discharged? Hospital course, mention meds given and route, prescriptions, significant lab abnormalities, going to OR and other pertinent info. @ -Discharged. Provided 1 g Tylenol in home dose of Percocet while here. X-ray And CT findings as above. Patient discharged in stable condition. Undiagnosed new problem with uncertain prognosis? @ -No Drug Therapy requiring intensive monitoring for toxicity (Heparin, Nitro, Insulin, Cardizem)? @ -No Were any procedures done? @ -No Diagnosis/symptom? @ -Neck pain, back pain Acute, or Chronic, or Acute on Chronic? @ -Acute on chronic Uncomplicated (without systemic symptoms) or Complicated (systemic symptoms)? @ -Uncomplicated Side effects of treatment? @ -No Exacerbation, Progression, or Severe Exacerbation? @ -No Poses a threat to life or bodily function? How? (Chest pain, USA, NM, pneumonia, PE, COPD, DKA, ARF, appy, cholecystitis, CVA, Diverticulitis, Homicidal, Suicidal, threat to staff... and all critical care pts) @ -No Disposition Clinical Impression: Neck pain, Back pain Disposition: HOME SELF-CARE Condition: Good Instructions (If sedation given, give patient instructions): Acute Low Back Pain (ED), Acute Neck Pain (ED) Additional Instructions: Please return to the Emergency Department if symptoms worsen or any other concerns. Is patient prescribed a controlled substance at d/c from ED?: No Referrals: González Muñiz MD [Primary Care Provider] - 1-2 days Time of Disposition: 15:51
--- NOTE | 2022-12-19 13:07 | XR ---
EXAMINATION TYPE: XR cervical spine comp DATE OF EXAM: 12/19/2022 COMPARISON: NONE HISTORY: Neck pain TECHNIQUE: Four views are submitted. FINDINGS: The odontoid is intact. There are no compression deformities. The prevertebral soft tissue structur es are within normal limits. Postsurgical change with intervertebral spacers stable in appearance re lative to the prior exam. There is multilevel facet arthropathy and moderate degenerative disc disease with hypertrophic spurri ng. Multilevel bilateral foraminal encroachment. On the lateral view there is a linear lucency anteriorly at the level C4-C5 which is new from the livier or exam representing a fracture through the surgical ankylosis. Report called to referring clinician 1:04 PM 12/19/2022 IMPRESSION: 1. On the lateral view there is a linear lucency anteriorly at the level C4-C5 which is new from the prior exam representing a fracture through the surgical ankylosis. Recommend CT scan. 2. Postsurgical changes are again noted with multilevel moderate hypertrophic and degenerative disc d isease with facet arthropathy and multilevel foraminal encroachment.
--- NOTE | 2022-12-19 13:10 | XR ---
EXAM TYPE: LUMBAR SPINE X RAY SERIES COMPARISON: 10/02/2021 HISTORY: pain TECHNIQUE: Three views are submitted. FINDINGS: Postsurgical changes L3-S1. There is surgical clips in right upper quadrant. Stimulator device is pre sent. No evidence of any acute osseous pathology. No evidence of loss of vertebral body height is see n. There is normal alignment of the lumbar vertebral bodies. IMPRESSION: 1. Postsurgical changes without significant change from prior.
[2022-12-19] MEDS ORDERED: oxyCODONE-APAP 5-325MG 1 EACH TAB PO STA (13:15)
--- NOTE | 2022-12-19 15:13 | CT ---
EXAMINATION TYPE: CT cervical spine wo con DATE OF EXAM: 12/19/2022 COMPARISON: 12/19/2022 cervical spine, 10/20/2022 HISTORY: New lucency on Cervical x-ray, r/o fracture CT DLP: 599.5 mGycm CONTRAST: None CT of the cervical spine is performed in the axial plane at 2 mm thick sections. Reconstructed image s in the coronal, and sagittal plane are reviewed on the computer. Lucency within the anterior spur at C4-5 appears to have some cortical margins suggesting this is sub acute or old. This appears stable from 10/20/2022 CT. Soft tissues in this region appear normal. No acute fractures are evident. Spina bifida occulta of C1 is present posteriorly. Vertebral body alignment is normal. Disc spacers are present C4-5 C5-6. Vertebral body heights are preserved. No spinal canal stenosis is evident No neural foraminal stenosis is evident. IMPRESSIONS: 1. Stable old lucency within the anterior C4-5 spurring. Acute fracture not identified.
[2022-12-19 15:28] VITALS: BP 146/82; PULSE 76
== END 2022-12-19 16:04 | disposition home or self-care (01) ==
LOC: EC 10:50
DX: M54.2 Cervicalgia (principal); M54.9 Dorsalgia, unspecified; J45.909 Unspecified asthma, uncomplicated; I25.10 Atherosclerotic heart disease of native coronary artery without angina pectoris; E78.5 Hyperlipidemia, unspecified; K21.9 Gastro-esophageal reflux disease without esophagitis; I10 Essential (primary) hypertension; I25.2 Old myocardial infarction; Z88.5 Allergy status to narcotic agent; Z88.8 Allergy status to other drugs, medicaments and biological substances; Z79.4 Long term (current) use of insulin; Z79.82 Long term (current) use of aspirin; Z79.899 Other long term (current) drug therapy
CPT/HCPCS: 72050; 72100; 72125; 99284

== ENCOUNTER 2023-01-23 12:19 | Emergency (ER) | payer OTHER ==
[2023-01-23 12:25] VITALS: TEMP 98.4
[2023-01-23] MEDS ORDERED: MORPHINE SULFATE 4 MG/ML SYRINGE IVP STA (13:12)
[2023-01-23] MEDS ORDERED: PANTOPRAZOLE 40 MG/10 ML VIAL IVP STA (13:12)
[2023-01-23] MEDS ORDERED: ONDANSETRON 4 MG/2 ML VIAL IVP STA (13:12)
[2023-01-23 13:47] VITALS: RESP 20
[2023-01-23 13:58] LABS: Basophils % (A) 1 %; Eosinophils # (A) 0.1 k/uL (0-0.7); Eosinophils % (A) 2 %; HCT 43.5 % (39.0-53.0); HGB 14.9 gm/dL (13.0-17.5); Lymphocytes # (A) 1.4 k/uL (1.0-4.8); Lymphocytes % (A) 23 %; MCH 30.1 pg (25.0-35.0); MCHC 34.2 g/dL (31.0-37.0); MCV 88.1 fL (80.0-100.0); Mean Platelet Volume 7.1; Monocytes # (A) 0.3 k/uL (0-1.0); Monocytes % (A) 5 %; Neutrophils % (A) 69 %; Platelet Count 229 k/uL (150-450); RBC 4.94 m/uL (4.30-5.90); RDW 13.1 % (11.5-15.5); WBC 5.8 k/uL (3.8-10.6)
[2023-01-23 14:00] LABS: Appearance,Urine Clear (Clear); Bilirubin,Urine Negative (Negative); Blood,Urine Negative (Negative); Color,Urine Yellow; Glucose,Urine (UA) 4+ (Negative); Ketones,Urine Trace (Negative); Leukocyte Esterase,Urine Negative (Negative); Nitrite,Urine Negative (Negative); Protein,Urine Trace (Negative); Specific Gravity,Urine 1.039 (1.001-1.035); Urobilinogen,Urine <2.0 mg/dL (<2.0)
[2023-01-23 14:16] LABS: INR 0.9 (<1.2); Prothrombin Time 9.7 sec (9.0-12.0)
[2023-01-23 14:18] LABS: Partial Thromboplastin Time 19.1 sec (22.0-30.0)
--- NOTE | 2023-01-23 14:33 | XR ---
EXAMINATION TYPE: XR KUB DATE OF EXAM: 01/23/2023 COMPARISON: 05/07/2020 HISTORY: Pain TECHNIQUE: One view abdominal series FINDINGS: The osseous structures are intact. The bowel gas pattern is nonspecific. Lung bases are clear. Pleu ral thickening along the left lateral lung base. Hypertrophic and degenerative changes spine. Surgical clips right upper quadrant. Stimulator device i s seen extending overlying the lower thoracic spine. The leads are somewhat uncoiled but stable. Hype rtrophic arthropathy of the hips. IMPRESSION: 1. Nonspecific abdomen.
[2023-01-23 15:11] LABS: ALT 30 U/L (4-49); African American GFR (CKD) >90 (>60 ml/min/1.73 sqM); Albumin 4.3 g/dL (3.5-5.0); Amylase 70 U/L (30-110); Anion Gap 12 mmol/L; Blood Urea Nitrogen 8 mg/dL (9-20); Carbon Dioxide 20 mmol/L (22-30); Chloride 103 mmol/L (98-107); Glucose 221 mg/dL (74-99); Lipase 170 U/L (23-300); Non-African American GFR(CKD) >90 (>60 ml/min/1.73 sqM); Sodium 135 mmol/L (137-145); Total Protein 7.1 g/dL (6.3-8.2)
[2023-01-23 15:15] LABS: AST 33 U/L (17-59); Alkaline Phosphatase 84 U/L (38-126); Potassium 4.2 mmol/L (3.5-5.1)
[2023-01-23 15:50] VITALS: PULSE 100
[2023-01-23] MEDS ORDERED: HYDROmorphone 0.5 MG/0.5 ML SYRINGE IVP STA (15:56)
--- NOTE | 2023-01-23 16:45 | ED ---
General Adult HPI - General Source: patient, RN notes reviewed, old records reviewed Mode of arrival: ambulatory Limitations: no limitations <Nba Gray - Last Filed: 01/23/23 16:41> <Gatito Casas - Last Filed: 02/01/23 05:58> - General Chief complaint: Urogenital Stated complaint: kidney pain Time Seen by Provider: 01/23/23 12:56 - History of Present Illness Initial comments: Patient is a 57-year-old male who presents emergency Department complaining of abdominal pain. Complained of left flank pain. Recently was admitted to hospital for CHF exacerbation. Currently has no acute complaints at this time. Endorses acute left flank pain that does not radiate, somewhat towards her back. Denies any chest pain or shortness of breath. Denies any nausea or vomiting. Denies diarrhea or constipation. His no urinary complaints. Presents for further evaluation at this time. (Nba Gray) 57 male well-known to this emergency department for different psychiatric peptic pain acute on chronic pain here today with flank pain abdominal pain and back pain. (Gatito Casas) - Related Data Home Medications Medication Instructions Recorded Confirmed Insulin Lispro [humaLOG Kwikpen] See Protocol SQ ACHS 06/16/21 10/20/22 oxyCODONE-APAP 5-325MG [Percocet 1 tab PO Q6H 09/12/21 10/20/22 5-325 mg] Gabapentin [Neurontin] 400 mg PO TID 12/25/21 10/20/22 Aspirin EC [Ecotrin Low Dose] 81 mg PO DAILY 05/23/22 10/20/22 Atorvastatin Calcium [Lipitor] 40 mg PO HS 05/23/22 10/20/22 Baclofen 10 mg PO TID 05/23/22 10/20/22 Empagliflozin [Jardiance] 25 mg PO DAILY 05/23/22 10/20/22 Metoprolol Tartrate [Lopressor] 50 mg PO BID 05/23/22 10/20/22 Omeprazole Magnesium [PriLOSEC OTC] 20 mg PO DAILY PRN 05/23/22 10/20/22 lisinopriL [Zestril] 5 mg PO BID 05/23/22 10/20/22 Insulin Glargine,Hum.rec.anlog 24 units SQ BID 10/20/22 10/20/22 [Lantus Solostar Pen] Ondansetron Odt [Zofran ODT] 4 mg PO Q6H PRN 10/20/22 10/20/22 Previous Rx's Medication Instructions Recorded Tamsulosin [Flomax] 0.4 mg PO PC-BRKFST 90 Days #90 cap 10/25/22 Azithromycin [Zithromax] 250 mg PO DAILY 4 Days #4 tab 11/13/22 predniSONE 50 mg PO DAILY 5 Days #5 tab 11/14/22 Allergies Allergy/AdvReac Type Severity Reaction Status Date / Time doxycycline Allergy Swelling Verified 01/23/23 12:25 ketorolac tromethamine Allergy Rash/Hives Verified 01/23/23 12:25 [From Toradol] morphine Allergy Rash/Hives Verified 01/23/23 12:25 metoclopramide HCl AdvReac Dystonic Verified 01/23/23 12:25 [From Reglan] Reaction prochlorperazine edisylate AdvReac Dystonic Verified 01/23/23 12:25 [From Compazine] Reaction prochlorperazine maleate AdvReac Dystonic Verified 01/23/23 12:25 [From Compazine] Reaction Review of Systems ROS Other: All systems not noted in ROS Statement are negative. <Nba Gray - Last Filed: 01/23/23 16:41> ROS Other: All systems not noted in ROS Statement are negative. <Gatito Casas - Last Filed: 02/01/23 05:58> ROS Statement: Those systems with pertinent positive or pertinent negative responses have been documented in the HPI. Review of Systems: CONST: Denies fever EYES: Denies blurry vision ENT: Denies nasal congestion C/V: Denies Chest pain RESP: Denies shortness of breath GI: Endorses left flank pain : Denies dysuria SKIN: Denies rash. MSK: Denies joint pain. NEURO: Denies headache (Nba Gray) Past Medical History Past Medical History: Asthma, Coronary Artery Disease (CAD), Chest Pain / Angina, Diabetes Mellitus, GERD/Reflux, GI Bleed, Hyperlipidemia, Hypertension, Myocardial Infarction (MS), Mitral Valve Prolapse (MVP), Pulmonary Embolus (PE), Sleep Apnea/CPAP/BIPAP Additional Past Medical History / Comment(s): Asthmatic bronchitis-chronic, IDDM type II, neuropathy bilateral feet, lower and upper GI bleeds, PUD, diverticulitis, colectomy d/t benign mass/intusseption, BPH, renal cysts, nephrolithiais, UTI with sepsis, chronic back pain 2ndary to herniated lumbar discs/sciatica, JARED does not use his Cpap, MVP, murmur Last Myocardial Infarction Date:: 2011 History of Any Multi-Drug Resistant Organisms: C-DIFF, MRSA Date of last positivie culture/infection: 2015 MDRO Source:: left axilla Past Surgical History: Appendectomy, Back Surgery, Cholecystectomy, Heart Catheterization, Hernia Repair Additional Past Surgical History / Comment(s): Lumbar decom pression/fusion/laminectomy, spinal stimulator, T lift procedure, L inguinal hernia repair, multiple ESWLs/stents/double J caths, colonoscopy, 02/2020 colectomy, EGDs for food obstructions and dilations Past Anesthesia/Blood Transfusion Reactions: No Reported Reaction Past Psychological History: No Psychological Hx Reported Smoking Status: Never smoker Past Alcohol Use History: None Reported Past Drug Use History: None Reported - Past Family History Father Family Medical History: Chest Pain / Angina Additional Family Medical History / Comment(s): "lung problems" Mother Family Medical History: Cancer, Chest Pain / Angina, Congestive Heart Failure (CHF), Osteoarthritis (OA), Thyroid Disorder Additional Family Medical History / Comment(s): "female cancer" <Nba Gray - Last Filed: 01/23/23 16:41> General Exam Limitations: no limitations <Nba Gray - Last Filed: 01/23/23 16:41> General appearance: alert, in no apparent distress Head exam: Present: atraumatic, normocephalic, normal inspection Eye exam: Present: normal appearance, PERRL, EOMI. Absent: scleral icterus, conjunctival injection, periorbital swelling ENT exam: Present: normal exam, mucous membranes moist Neck exam: Present: normal inspection. Absent: tenderness, meningismus, lymphadenopathy Respiratory exam: Present: normal lung sounds bilaterally. Absent: respiratory distress, wheezes, rales, rhonchi, stridor Cardiovascular Exam: Present: regular rate, normal rhythm, normal heart sounds. Absent: systolic murmur, diastolic murmur, rubs, gallop, clicks GI/Abdominal exam: Present: soft, normal bowel sounds. Absent: distended, tenderness, guarding, rebound, rigid Extremities exam: Present: normal inspection, full ROM, normal capillary refill. Absent: tenderness, pedal edema, joint swelling, calf tenderness Back exam: Present: normal inspection Neurological exam: Present: alert, oriented X3, CN II-XII intact Psychiatric exam: Present: normal affect, normal mood Skin exam: Present: warm, dry, intact, normal color. Absent: rash <Gatito Casas - Last Filed: 02/01/23 05:58> - General Exam Comments Initial Comments: General: Appears in no acute distress. HEAD: Normal with no signs of head trauma. EYES: PERRLA, EOMI, conjunctiva normal, no discharge. ENT: Hearing grossly intact, normal oropharynx. RESPIRATORY: Clear breath sounds bilaterally. No wheezes, rales, or rhonchi. C/V: Regular rate and rhythm. S1 and S2 auscultated, no edema, peripheral pulses 2+ and intact throughout ABD: Abd is soft, nontender, nondistended. Mild tenderness palpation of the left flank. No guarding. No rebound tenderness. No peritoneal signs. EXT: Normal range of motion, no obvious deformity SKIN: No rashes or lesions observed on exposed skin. NEURO: Alert and oriented 4. (Nba Gray) Course <Gatito Casas - Last Filed: 02/01/23 05:58> Vital Signs 01/23/23 01/23/23 01/23/23 12:22 13:46 15:00 Temperature 98.4 F Pulse Rate 127 H 110 H 100 Respiratory 17 20 20 Rate Blood Pressure 181/109 150/110 135/72 O2 Sat by Pulse 97 98 98 Oximetry 01/23/23 01/23/23 17:00 18:10 Temperature Pulse Rate 100 100 Respiratory 20 20 Rate Blood Pressure 130/87 150/98 O2 Sat by Pulse 98 100 Oximetry - Reevaluation(s) Reevaluation #1: 01/23/23 16:47 Medical records reviewed (Gatito Casas) Reevaluation #2: 01/23/23 16:47 Patient's symptoms continued to improve (Gatito Casas) Reevaluation #3: Patient informed results questions are answered, feels well for discharge (Gatito Casas) Reevaluation #4: 01/23/23 16:47 Was pt. sent in by a medical professional or institution? @ -no Did you speak to anyone other than the patient for history? @ -no Did you review nursing and triage notes? @ -agree Were old charts reviewed? @ -yes Differential Diagnosis? @ -prior EKG interpreted by me (3pts min.)? @ -no X-rays interpreted by me (1pt min.)? @ -no CT interpreted by me (1pt min.)? @ -yes U/S interpreted by me (1pt. min.)? @ -no What testing was considered but not performed? (CT, X-rays, U/S, labs)? Why? @ -no What meds were considered but not given? Why? @ -no Did you discuss the management of the patient with other professionals? @ -no Did you reconcile home meds? @ -no Was smoking cessation discussed for >3mins.? @ -no Was critical care preformed (if so, how long)? @ -no Were there social determinants of health that impacted care today? How? (Homelessness, low income, unemployed, alcoholism, drug addiction, transportation, low edu. Level, literacy, decrease access to med. care, mcc, rehab)? @ -no Was there de-escalation of care discussed even if they declined? (Discuss DNR or withdrawal of care, Hospice)? @ -no What co-morbidities impacted this encounter? (DM, HTN, Smoking, COPD, CAD, Ca ncer, CVA, Hep., AIDS, mental health diagnosis, sleep apnea, morbid obesity)? @ -none Was patient admitted / discharged? @ -57 male to the emergency department for evaluation of acute on chronic pain. Imaging is negative here in the emergency Department, patient feels well again is good for discharge home Discharge Undiagnosed new problem with uncertain prognosis? @ -no Drug Therapy requiring intensive monitoring for toxicity (Heparin, Nitro, Insulin, Cardizem)? @ -no Were any procedures done? @ -no Diagnosis/symptom? @ -Abdominal pain, chest pain, back pain Acute, or Chronic, or Acute on Chronic? @ -acute Uncomplicated (without systemic symptoms) or Complicated (systemic symptoms)? @ -complicated Side effects of treatment? @ -no Exacerbation, Progression, or Severe Exacerbation] @ -no Poses a threat to life or bodily function? @ -no (Gatito Casas) Reevaluation #5: 01/23/23 16:47 Differential Abdominal Pain Women: Appendicitis, Cholecystitis, diverticulosis, ischemic bowel, pancreatitis, hepatitis, UTI, gastroenteritis, AAA, incarcerated hernia, bowel obstruction, constipation, inflammatory bowel, hepatitis, peptic ulcer disease, splenic infarction, perforated viscus, vulvitis, ovarian torsion, PID, kidney stone, placenta abruption, this is not meant to be an all-inclusive list (Manjeet Casas) Medical Decision Making - Lab Data Result diagrams: 01/23/23 13:12 01/23/23 13:12 <Nba Gray - Last Filed: 01/23/23 16:41> - Lab Data Result diagrams: 01/23/23 13:12 01/23/23 13:12 <Gatito Casas - Last Filed: 02/01/23 05:58> - Medical Decision Making Was pt. sent in by a medical professional or institution (, PA, CAMPAIGN MANAGEMENT SENIOR MANAGER, urgent care, hospital, or [place] [facility] facility...) When possible be specific @ -No Did you speak to anyone other than the patient for history (EMS, parent, family, police, friend...)? What history was obtained from this source @ -No Did you review nursing and triage notes (agree or disagree)? Why? @ -I reviewed and agree with nursing and triage notes Were old charts reviewed (outside hosp., previous admission, EMS record, old EKG, old radiological studies, urgent care reports/EKG's, [place] health [facility] facility records)? Report findings @ -No old charts were reviewed Differential Diagnosis (chest pain, altered mental status, abdominal pain women, abdominal pain men, vaginal bleeding, weakness, fever, dyspnea, syncope, headache, dizziness, GI bleed, back pain, seizure, CVA, palpatations, mental health, musculoskeletal)? @ -Differential Abdominal Pain Men: Appendicitis, cholecystitis, diverticulosis, ischemic bowel, pancreatitis, hepatitis, UTI, gastroenteritis, AAA, incarcerated hernia, bowel obstruction, constipation, inflammatory bowel, hepatitis, peptic ulcer disease, splenic infarction, perforated viscus, testicular torsion, this is not meant to be an all-inclusive list EKG interpreted by me (3pts min.). @ -None done X-rays interpreted by me (1pt min.). @ -KUB x-ray negative for any obvious acute intra-abdominal process. CT interpreted by me (1pt min.). @ -Pending U/S interpreted by me (1pt. min.). @ -None done What testing was considered but not performed or refused? (CT, X-rays, U/S, labs)? Why? @ -None What meds were considered but not given or refused? Why? @ -None Did you discuss the management of the patient with other professionals (professionals i.e. Dr., PA, CAMPAIGN MANAGEMENT SENIOR MANAGER, lab, RT, psych nurse, social services analyst, stud driver, teacher, investigation officer, manager case)? Give summary @ -No Was smoking cessation discussed for >3mins.? @ -No Was critical care preformed (if so, how long)? @ -No Were there social determinants of health that impacted care today? How? (Homelessness, low income, unemployed, alcoholism, drug addiction, transportation, low edu. Level, literacy, decrease access to med. care, mcc, rehab)? @ -No Was there de-escalation of care discussed even if they declined (Discuss DNR or withdrawal of care, Hospice)? DNR status @ -No What co-morbidities impacted this encounter? (DM, HTN, Smoking, COPD, CAD, Cancer, CVA, ARF, Chemo, Hep., AIDS, mental health diagnosis, sleep apnea, morbid obesity)? @ -None Was patient admitted / discharged? Hospital course, mention meds given and route, prescriptions, significant lab abnormalities, going to OR and other pertinent info. @ -Based on the patient's presentation and physical exam, I'm concerned for acute intrapelvic process at this time. We will obtain abdominal laboratory studies. We'll also obtain an abdominal imaging. He will be symptomatically treated with IV morphine, Zofran, Protonix. He was in agreement this plan. Vital signs are within acceptable limits. Laboratory studies are unremarkable. KUB x-ray unremarkable. Ultrasound was still pending of the bladder and kidneys, however do not believe this is necessary at this time as there is no evidence of nephrolithiasis. This was canceled. Due to his continued left flank. We will obtain CT imaging at this time. He was in agreement this plan. CT imaging is still pending. Patient signed out to Dr. Casas Pending results of CT. Undiagnosed new problem with uncertain prognosis? @ -No Drug Therapy requiring intensive monitoring for toxicity (Heparin, Nitro, I nsulin, Cardizem)? @ -No Were any procedures done? @ -No (Nba Gray) 57 male to the emergency department for evaluation of acute on chronic pain. Imaging is negative here in the emergency Department, patient feels well again is good for discharge home (Gatito Casas) - Lab Data Lab Results 01/23/23 01/23/23 01/23/23 Range/Units 13:12 13:12 13:12 WBC 5.8 (3.8-10.6) k/uL RBC 4.94 (4.30-5.90) m/uL Hgb 14.9 (13.0-17.5) gm/dL Hct 43.5 (39.0-53.0) % MCV 88.1 (80.0-100.0) fL MCH 30.1 (25.0-35.0) pg MCHC 34.2 (31.0-37.0) g/dL RDW 13.1 (11.5-15.5) % Plt Count 229 (150-450) k/uL MPV 7.1 Neutrophils % 69 % Lymphocytes % 23 % Monocytes % 5 % Eosinophils % 2 % Basophils % 1 % Neutrophils # 4.0 (1.3-7.7) k/uL Lymphocytes # 1.4 (1.0-4.8) k/uL Monocytes # 0.3 (0-1.0) k/uL Eosinophils # 0.1 (0-0.7) k/uL Basophils # 0.0 (0-0.2) k/uL PT 9.7 (9.0-12.0) sec INR 0.9 (<1.2) APTT 19.1 L (22.0-30.0) sec Sodium (137-145) mmol/L Potassium (3.5-5.1) mmol/L Chloride (98-107) mmol/L Carbon Dioxide (22-30) mmol/L Anion Gap mmol/L BUN (9-20) mg/dL Creatinine (0.66-1.25) mg/dL Est GFR (CKD-EPI)AfAm (>60 ml/min/1.73 sqM) Est GFR (CKD-EPI)NonAf (>60 ml/min/1.73 sqM) Glucose (74-99) mg/dL Calcium (8.4-10.2) mg/dL Total Bilirubin (0.2-1.3) mg/dL AST (17-59) U/L ALT (4-49) U/L Alkaline Phosphatase (38-126) U/L Total Protein (6.3-8.2) g/dL Albumin (3.5-5.0) g/dL Amylase (30-110) U/L Lipase (23-300) U/L Urine Color Yellow Urine Appearance Clear (Clear) Urine pH 5.0 (5.0-8.0) Ur Specific [place] 1.039 H (1.001-1.035) Urine Protein Trace H (Negative) Urine Glucose (UA) 4+ H (Negative) Urine Ketones Trace H (Negative) Urine Blood Negative (Negative) Urine Nitrite Negative (Negative) Urine Bilirubin Negative (Negative) Urine Urobilinogen <2.0 (<2.0) mg/dL Ur Leukocyte Esterase Negative (Negative) 01/23/23 Range/Units 13:12 WBC (3.8-10.6) k/uL RBC (4.30-5.90) m/uL Hgb (13.0-17.5) gm/dL Hct (39.0-53.0) % MCV (80.0-100.0) fL MCH (25.0-35.0) pg MCHC (31.0-37.0) g/dL RDW (11.5-15.5) % Plt Count (150-450) k/uL MPV Neutrophils % % Lymphocytes % % Monocytes % % Eosinophils % % Basophils % % Neutrophils # (1.3-7.7) k/uL Lymphocytes # (1.0-4.8) k/uL Monocytes # (0-1.0) k/uL Eosinophils # (0-0.7) k/uL Basophils # (0-0.2) k/uL PT (9.0-12.0) sec INR (<1.2) APTT (22.0-30.0) sec Sodium 135 L (137-145) mmol/L Potassium 4.2 (3.5-5.1) mmol/L Chloride 103 (98-107) mmol/L Carbon Dioxide 20 L (22-30) mmol/L Anion Gap 12 mmol/L BUN 8 L (9-20) mg/dL Creatinine 0.43 L (0.66-1.25) mg/dL Est GFR (CKD-EPI)AfAm >90 (>60 ml/min/1.73 sqM) Est GFR (CKD-EPI)NonAf >90 (>60 ml/min/1.73 sqM) Glucose 221 H (74-99) mg/dL Calcium 9.0 (8.4-10.2) mg/dL Total Bilirubin 1.0 (0.2-1.3) mg/dL AST 33 (17-59) U/L ALT 30 (4-49) U/L Alkaline Phosphatase 84 (38-126) U/L Total Protein 7.1 (6.3-8.2) g/dL Albumin 4.3 (3.5-5.0) g/dL Amylase 70 (30-110) U/L Lipase 170 (23-300) U/L Urine Color Urine Appearance (Clear) Urine pH (5.0-8.0) Ur Specific [place] (1.001-1.035) Urine Protein (Negative) Urine Glucose (UA) (Negative) Urine Ketones (Negative) Urine Blood (Negative) Urine Nitrite (Negative) Urine Bilirubin (Negative) Urine Urobilinogen (<2.0) mg/dL Ur Leukocyte Esterase (Negative) Disposition <Nba Gray - Last Filed: 01/23/23 16:41> Is patient prescribed a controlled substance at d/c from ED?: No Time of Disposition: 17:50 <Gatito Casas - Last Filed: 02/01/23 05:58> Clinical Impression: Abdominal pain, Atypical chest pain, Acute low back pain Disposition: HOME SELF-CARE Condition: Fair Instructions (If sedation given, give patient instructions): Abdominal Pain (ED) Referrals: González Muñiz MD [Primary Care Provider] - 1-2 days
--- NOTE | 2023-01-23 17:10 | CT ---
EXAMINATION TYPE: CT abdomen pelvis w con CT DLP: 2396.8 mGycm, Automated exposure control for dose reduction was used. DATE OF EXAM: 01/23/2023 4:54 PM COMPARISON: CT abdomen pelvis most recent from 11/13/2022. CLINICAL INDICATION:Male, 57 years old with history of left flank pain; flank pain TECHNIQUE: Axial CT of the abdomen and pelvis. Sagittal and coronal reformats were created on a [employer] workstation. Contrast used:100 mL of Isovue 300 with IV Contrast, (none if empty) Oral contrast used: without Oral Contrast (none if empty) FINDINGS: LOWER CHEST: Unremarkable ABDOMEN LIVER: Diffusely hypoattenuating parenchyma. GALLBLADDER AND BILE DUCTS: The gallbladder surgically absent. PANCREAS: Unremarkable. SPLEEN: Unremarkable. ADRENAL GLANDS: Unremarkable. KIDNEYS AND URETERS: No evidence of hydronephrosis or renal calculus. The ureters are unremarkable. Right simple appearing renal cysts. PELVIS BLADDER: Unremarkable REPRODUCTIVE: Unremarkable. ABDOMEN & PELVIS STOMACH AND BOWEL: No evidence of bowel obstruction. Postsurgical change within the left upper quadra nt. There are some mild inflammation changes at at and around the assess anastomotic site which appea r on prior on 11/13/2022 and could represent postsurgical scarring. PERITONEUM/RETROPERITONEUM: No evidence of pneumoperitoneum or free fluid. VASCULATURE: No evidence of aortic aneurysm. MUSCULOSKELETAL: No acute osseous abnormalities, postsurgical change to L3-S1. Hardware appears intac t. Discectomy at L2-L4. Nerve stimulator leads terminating in the posterior thecal sac. LYMPH NODES: No gross evidence for lymphadenopathy. SOFT TISSUE/ABDOMINAL WALL: Fat-containing umbilical hernia. IMPRESSION: Postsurgical change with anastomotic site in the left upper quadrant. No definitive acute intra-abdom inal process to explain the patient's left flank pain. No obstructive uropathy or renal calculus.
[2023-01-23 18:12] VITALS: BP 150/98
== END 2023-01-23 18:12 | disposition home or self-care (01) ==
LOC: EC 12:19
DX: M54.50 Low back pain, unspecified (principal); R10.9 Unspecified abdominal pain; R07.89 Other chest pain; I11.0 Hypertensive heart disease with heart failure; I50.9 Heart failure, unspecified; J45.909 Unspecified asthma, uncomplicated; K21.9 Gastro-esophageal reflux disease without esophagitis; I25.2 Old myocardial infarction; I25.10 Atherosclerotic heart disease of native coronary artery without angina pectoris; E78.5 Hyperlipidemia, unspecified; E11.9 Type 2 diabetes mellitus without complications; Z79.4 Long term (current) use of insulin; E11.40 Type 2 diabetes mellitus with diabetic neuropathy, unspecified; Z79.82 Long term (current) use of aspirin; Z79.84 Long term (current) use of oral hypoglycemic drugs; Z79.899 Other long term (current) drug therapy; Z90.49 Acquired absence of other specified parts of digestive tract; Z88.8 Allergy status to other drugs, medicaments and biological substances; Z88.5 Allergy status to narcotic agent; Z88.1 Allergy status to other antibiotic agents
CPT/HCPCS: 36415; 80053; 82150; 83690; 85025; 85610; 85730; 81003; 74018; 74177; 99285; 96374; 96375 ×3; J2270; J2405; C9113; J1170; Q9967

== ENCOUNTER 2023-02-14 03:05 | Emergency (ER) | payer OTHER ==
[2023-02-14 03:12] VITALS: RESP 20; TEMP 99.3
[2023-02-14] MEDS ORDERED: NITROGLYCERIN SL TABS 0.4 MG TAB SUBLINGUAL STA (03:37)
--- NOTE | 2023-02-14 04:17 | ED ---
General Adult HPI - General Chief complaint: Chest Pain Stated complaint: Chest Pain, Shortness of Breath Time Seen by Provider: 02/14/23 03:09 Source: patient, RN notes reviewed, old records reviewed Mode of arrival: ambulatory Limitations: no limitations - History of Present Illness Initial comments: 57-year-old male presents for ongoing chest discomfort and dyspnea. Patient states he had a admission at outside hospital where he received echocardiogram and had cardiology evaluation. He states he had symptoms of chest pain and dyspnea. He does report minor cough. No fever. Patient is currently on our requests. He has a history of DVT has a history of CAD, multiple comorbidities. - Related Data Home Medications Medication Instructions Recorded Confirmed Insulin Lispro [humaLOG Kwikpen] See Protocol SQ ACHS 06/16/21 10/20/22 oxyCODONE-APAP 5-325MG [Percocet 1 tab PO Q6H 09/12/21 10/20/22 5-325 mg] Gabapentin [Neurontin] 400 mg PO TID 12/25/21 10/20/22 Aspirin EC [Ecotrin Low Dose] 81 mg PO DAILY 05/23/22 10/20/22 Atorvastatin Calcium [Lipitor] 40 mg PO HS 05/23/22 10/20/22 Baclofen 10 mg PO TID 05/23/22 10/20/22 Empagliflozin [Jardiance] 25 mg PO DAILY 05/23/22 10/20/22 Metoprolol Tartrate [Lopressor] 50 mg PO BID 05/23/22 10/20/22 Omeprazole Magnesium [PriLOSEC OTC] 20 mg PO DAILY PRN 05/23/22 10/20/22 lisinopriL [Zestril] 5 mg PO BID 05/23/22 10/20/22 Insulin Glargine,Hum.rec.anlog 24 units SQ BID 10/20/22 10/20/22 [Lantus Solostar Pen] Ondansetron Odt [Zofran ODT] 4 mg PO Q6H PRN 10/20/22 10/20/22 Previous Rx's Medication Instructions Recorded Tamsulosin [Flomax] 0.4 mg PO PC-BRKFST 90 Days #90 cap 10/25/22 Azithromycin [Zithromax] 250 mg PO DAILY 4 Days #4 tab 11/13/22 predniSONE 50 mg PO DAILY 5 Days #5 tab 11/14/22 Allergies Allergy/AdvReac Type Severity Reaction Status Date / Time doxycycline Allergy Swelling Verified 02/14/23 03:12 ketorolac tromethamine Allergy Rash/Hives Verified 02/14/23 03:12 [From Toradol] morphine Allergy Rash/Hives Verified 02/14/23 03:12 metoclopramide HCl AdvReac Dystonic Verified 02/14/23 03:12 [From Reglan] Reaction prochlorperazine edisylate AdvReac Dystonic Verified 02/14/23 03:12 [From Compazine] Reaction prochlorperazine maleate AdvReac Dystonic Verified 02/14/23 03:12 [From Compazine] Reaction Review of Systems ROS Statement: Those systems with pertinent positive or pertinent negative responses have been documented in the HPI. ROS Other: All systems not noted in ROS Statement are negative. Past Medical History Past Medical History: Asthma, Coronary Artery Disease (CAD), Chest Pain / Angina, Diabetes Mellitus, GERD/Reflux, GI Bleed, Hyperlipidemia, Hypertension, Myocardial Infarction (MT), Mitral Valve Prolapse (MVP), Pulmonary Embolus (PE), Sleep Apnea/CPAP/BIPAP Additional Past Medical History / Comment(s): Asthmatic bronchitis-chronic, IDDM type II, neuropathy bilateral feet, lower and upper GI bleeds, PUD, diverticulitis, colectomy d/t benign mass/intusseption, BPH, renal cysts, nephrolithiais, UTI with sepsis, chronic back pain 2ndary to herniated lumbar discs/sciatica, JARED does not use his Cpap, MVP, murmur Last Myocardial Infarction Date:: 2011 History of Any Multi-Drug Resistant Organisms: C-DIFF, MRSA Date of last positivie culture/infection: 2015 MDRO Source:: left axilla Past Surgical History: Appendectomy, Back Surgery, Cholecystectomy, Heart Catheterization, Hernia Repair Additional Past Surgical History / Comment(s): Lumbar decompression/fusion/laminectomy, spinal stimulator, T lift procedure, L inguinal hernia repair, multiple ESWLs/stents/double J caths, colonoscopy, 02/2020 colectomy, EGDs for food obstructions and dilations Past Anesthesia/Blood Transfusion Reactions: No Reported Reaction Past Psychological History: No Psychological Hx Reported Smoking Status: Never smoker Past Alcohol Use History: None Reported Past Drug Use History: None Reported - Past Family History Father Family Medical History: Chest Pain / Angina Additional Family Medical History / Comment(s): "lung problems" Mother Family Medical History: Cancer, Chest Pain / Angina, Congestive Heart Failure (CHF), Osteoarthritis (OA), Thyroid Disorder Additional Family Medical History / Comment(s): "female cancer" General Exam Limitations: no limitations General appearance: alert, in no apparent distress Head exam: Present: atraumatic, normocephalic Eye exam: Present: normal appearance, PERRL ENT exam: Present: normal exam Neck exam: Present: normal inspection. Absent: tenderness, meningismus Respiratory exam: Present: normal lung sounds bilaterally. Absent: respiratory distress, wheezes Cardiovascular Exam: Present: normal rhythm, tachycardia GI/Abdominal exam: Present: soft. Absent: distended, tenderness, guarding Extremities exam: Present: normal inspection, normal capillary refill Neurological exam: Present: alert, oriented X3, CN II-XII intact Skin exam: Present: warm, dry Course Vital Signs 02/14/23 02/14/23 02/14/23 03:10 04:47 05:35 Temperature 99.3 F Pulse Rate 108 H 112 H 105 H Respiratory 20 20 20 Rate Blood Pressure 157/92 160/105 172/103 O2 Sat by Pulse 98 96 Oximetry 02/14/23 06:31 Temperature Pulse Rate 110 H Respiratory 20 Rate Blood Pressure 176/101 O2 Sat by Pulse 97 Oximetry Medical Decision Making - Medical Decision Making Was pt. sent in by a medical professional or institution (, PA, SPORTS EQUIPMENT RACKER, urgent care, hospital, or fci...) When possible be specific @ -No Did you speak to anyone other than the patient for history (EMS, parent, family, police, friend...)? What history was obtained from this source @ -No Did you review nursing and triage notes (agree or disagree)? Why? @ -I reviewed and agree with nursing and triage notes Were old charts reviewed (outside hosp., previous admission, EMS record, old EKG, old radiological studies, urgent care reports/EKG's, fci records)? Report findings @ -No old charts were reviewed Differential Diagnosis (chest pain, altered mental status, abdominal pain women, abdominal pain men, vaginal bleeding, weakness, fever, dyspnea, syncope, headache, dizziness, GI bleed, back pain, seizure, CVA, palpatations, mental health, musculoskeletal)? @ -[Differential Chest Pain: Stable Angina, Unstable Angina, STEMI, NSTEMI Aortic Dissection, Pneumothorax, Musculoskeletal, Esophageal Spasm GERD, Cholecystitis, Pancreatitis, Zoster, this is not meant to be an all-inclusive list. EKG interpreted by me (3pts min.). @ Sinus tachycardia, rate of 104, AR interval 151, QRS duration 118, QTC 433, no ST segment elevation. X-rays interpreted by me (1pt min.). @ -Chest x-ray performed, no acute findings CT interpreted by me (1pt min.). @ -None done U/S interpreted by me (1pt. min.). @ -None done What testing was considered but not performed or refused? (CT, X-rays, U/S, labs)? Why? @ -None What meds were considered but not given or refused? Why? @ -None Did you discuss the management of the patient with other professionals (professionals i.e. , PA, SPORTS EQUIPMENT RACKER, lab, RT, psych nurse, social professionals, integrity consultant, teacher, corporate responsibility officer, child support case officer)? Give summary @ -No Was smoking cessation discussed for >3mins.? @ -No Was critical care preformed (if so, how long)? @ -No Were there social determinants of health that impacted care today? How? (Homelessness, low income, unemployed, alcoholism, drug addiction, transportation, low edu. Level, literacy, decrease access to med. care, correction, rehab)? @ -No Was there de-escalation of care discussed even if they declined (Discuss DNR or withdrawal of care, Hospice)? DNR status @ -No What co-morbidities impacted this encounter? (DM, HTN, Smoking, COPD, CAD, Cancer, CVA, ARF, Chemo, Hep., AIDS, mental health diagnosis, sleep apnea, morbid obesity)? @ -[Diabetes, coronary artery disease Was patient admitted / discharged? Hospital course, mention meds given and route, prescriptions, significant lab abnormalities, going to OR and other perti nent info. @ -57-year-old male presenting with recurrent chest pain after recent evaluation at outside hospital. Patient's has EKG which is sinus without ST segment elevation. Chest x-ray is clear. He has normal CBC, normal CMP with the exception of hyperglycemia. He has a negative troponin. I do feel given the ongoing nature of his symptoms in the continued negative troponin and he is stable for discharge with outpatient follow-up. Undiagnosed new problem with uncertain prognosis? @ -No Drug Therapy requiring intensive monitoring for toxicity (Heparin, Nitro, Insulin, Cardizem)? @ -No Were any procedures done? @ -No Diagnosis/symptom? @ -Chest discomfort Acute, or Chronic, or Acute on Chronic? @ -[Chronic Uncomplicated (without systemic symptoms) or Complicated (systemic symptoms)? @ -default Side effects of treatment? @ -No Exacerbation, Progression, or Severe Exacerbation? @ -No Poses a threat to life or bodily function? How? (Chest pain, USA, MT, pneumonia, PE, COPD, DKA, ARF, appy, cholecystitis, CVA, Diverticulitis, Homicidal, Suic idal, threat to staff... and all critical care pts) @ -[Gas, chest. - Lab Data Result diagrams: 02/14/23 03:29 02/14/23 03:29 Lab Results 02/14/23 02/14/23 02/14/23 Range/Units 03:29 03:29 03:29 WBC 5.5 (3.8-10.6) k/uL RBC 4.91 (4.30-5.90) m/uL Hgb 14.7 (13.0-17.5) gm/dL Hct 43.4 (39.0-53.0) % MCV 88.5 (80.0-100.0) fL MCH 30.0 (25.0-35.0) pg MCHC 33.8 (31.0-37.0) g/dL RDW 13.2 (11.5-15.5) % Plt Count 272 (150-450) k/uL MPV 7.4 Neutrophils % 54 % Lymphocytes % 30 % Monocytes % 7 % Eosinophils % 5 % Basophils % 1 % Neutrophils # 3.0 (1.3-7.7) k/uL Lymphocytes # 1.7 (1.0-4.8) k/uL Monocytes # 0.4 (0-1.0) k/uL Eosinophils # 0.3 (0-0.7) k/uL Basophils # 0.0 (0-0.2) k/uL PT 9.5 (9.0-12.0) sec INR 0.9 (<1.2) APTT 20.9 L (22.0-30.0) sec Sodium 134 L (137-145) mmol/L Potassium 4.2 (3.5-5.1) mmol/L Chloride 100 (98-107) mmol/L Carbon Dioxide 22 (22-30) mmol/L Anion Gap 12 mmol/L BUN 13 (9-20) mg/dL Creatinine 0.50 L (0.66-1.25) mg/dL Est GFR (CKD-EPI)AfAm >90 (>60 ml/min/1.73 sqM) Est GFR (CKD-EPI)NonAf >90 (>60 ml/min/1.73 sqM) Glucose 343 H (74-99) mg/dL Calcium 9.8 (8.4-10.2) mg/dL Magnesium 1.9 (1.6-2.3) mg/dL Total Bilirubin 0.5 (0.2-1.3) mg/dL AST 24 (17-59) U/L ALT 49 (4-49) U/L Alkaline Phosphatase 125 (38-126) U/L Troponin I (0.000-0.034) ng/mL Total Protein 7.1 (6.3-8.2) g/dL Albumin 4.3 (3.5-5.0) g/dL 02/14/23 Range/Units 03:29 WBC (3.8-10.6) k/uL RBC (4.30-5.90) m/uL Hgb (13.0-17.5) gm/dL Hct (39.0-53.0) % MCV (80.0-100.0) fL MCH (25.0-35.0) pg MCHC (31.0-37.0) g/dL RDW (11.5-15.5) % Plt Count (150-450) k/uL MPV Neutrophils % % Lymphocytes % % Monocytes % % Eosinophils % % Basophils % % Neutrophils # (1.3-7.7) k/uL Lymphocytes # (1.0-4.8) k/uL Monocytes # (0-1.0) k/uL Eosinophils # (0-0.7) k/uL Basophils # (0-0.2) k/uL PT (9.0-12.0) sec INR (<1.2) APTT (22.0-30.0) sec Sodium (137-145) mmol/L Potassium (3.5-5.1) mmol/L Chloride (98-107) mmol/L Carbon Dioxide (22-30) mmol/L Anion Gap mmol/L BUN (9-20) mg/dL Creatinine (0.66-1.25) mg/dL Est GFR (CKD-EPI)AfAm (>60 ml/min/1.73 sqM) Est GFR (CKD-EPI)NonAf (>60 ml/min/1.73 sqM) Glucose (74-99) mg/dL Calcium (8.4-10.2) mg/dL Magnesium (1.6-2.3) mg/dL Total Bilirubin (0.2-1.3) mg/dL AST (17-59) U/L ALT (4-49) U/L Alkaline Phosphatase (38-126) U/L Troponin I <0.012 (0.000-0.034) ng/mL Total Protein (6.3-8.2) g/dL Albumin (3.5-5.0) g/dL Disposition Clinical Impression: Chest pain Disposition: HOME SELF-CARE Condition: Fair Instructions (If sedation given, give patient instructions): Chest Pain (ED) Is patient prescribed a controlled substance at d/c from ED?: No Referrals: González Muñiz MD [Primary Care Provider] - 1-2 days Time of Disposition: 05:46
[2023-02-14 04:48] LABS: Basophils % (A) 1 %; Eosinophils # (A) 0.3 k/uL (0-0.7); Eosinophils % (A) 5 %; HCT 43.4 % (39.0-53.0); HGB 14.7 gm/dL (13.0-17.5); Lymphocytes # (A) 1.7 k/uL (1.0-4.8); Lymphocytes % (A) 30 %; MCHC 33.8 g/dL (31.0-37.0); MCV 88.5 fL (80.0-100.0); Mean Platelet Volume 7.4; Monocytes # (A) 0.4 k/uL (0-1.0); Monocytes % (A) 7 %; Neutrophils % (A) 54 %; Platelet Count 272 k/uL (150-450); RBC 4.91 m/uL (4.30-5.90); RDW 13.2 % (11.5-15.5); WBC 5.5 k/uL (3.8-10.6)
[2023-02-14] MEDS ORDERED: ONDANSETRON 4 MG/2 ML VIAL IVP STA (04:50)
[2023-02-14 05:02] LABS: INR 0.9 (<1.2); Prothrombin Time 9.5 sec (9.0-12.0)
[2023-02-14 05:14] LABS: Partial Thromboplastin Time 20.9 sec (22.0-30.0)
[2023-02-14 05:17] LABS: ALT 49 U/L (4-49); AST 24 U/L (17-59); African American GFR (CKD) >90 (>60 ml/min/1.73 sqM); Albumin 4.3 g/dL (3.5-5.0); Alkaline Phosphatase 125 U/L (38-126); Anion Gap 12 mmol/L; Blood Urea Nitrogen 13 mg/dL (9-20); Calcium 9.8 mg/dL (8.4-10.2); Carbon Dioxide 22 mmol/L (22-30); Chloride 100 mmol/L (98-107); Glucose 343 mg/dL (74-99); Magnesium 1.9 mg/dL (1.6-2.3); Non-African American GFR(CKD) >90 (>60 ml/min/1.73 sqM); Potassium 4.2 mmol/L (3.5-5.1); Sodium 134 mmol/L (137-145); Total Bilirubin 0.5 mg/dL (0.2-1.3); Total Protein 7.1 g/dL (6.3-8.2)
[2023-02-14] MEDS ORDERED: MORPHINE SULFATE 4 MG/ML SYRINGE IVP STA (05:20)
[2023-02-14 06:33] VITALS: BP 176/101; PULSE 110
--- NOTE | 2023-02-14 06:54 | XR ---
EXAMINATION TYPE: XR chest 2V DATE OF EXAM: 02/14/2023 COMPARISON: 11/14/2022 HISTORY: Shortness of breath TECHNIQUE: Frontal and lateral views of the chest are obtained. FINDINGS: Scattered senescent parenchymal changes noted. Hyperinflation compatible with COPD. No evidence for infiltrate. No evidence for atelectasis. Heart size is stable. Mediastinal structures are stable and grossly unremarkable. No evidence for hilar prominence. Degenerative changes dorsal spine. IMPRESSION: 1. No evidence for acute pulmonary disease.
== END 2023-02-14 06:40 | disposition home or self-care (01) ==
LOC: EC 03:05
DX: R07.89 Other chest pain (principal); E11.65 Type 2 diabetes mellitus with hyperglycemia; E11.40 Type 2 diabetes mellitus with diabetic neuropathy, unspecified; I25.10 Atherosclerotic heart disease of native coronary artery without angina pectoris; I10 Essential (primary) hypertension; J45.909 Unspecified asthma, uncomplicated; K21.9 Gastro-esophageal reflux disease without esophagitis; E78.5 Hyperlipidemia, unspecified; I25.2 Old myocardial infarction; Z79.82 Long term (current) use of aspirin; Z79.4 Long term (current) use of insulin; Z79.84 Long term (current) use of oral hypoglycemic drugs; Z88.1 Allergy status to other antibiotic agents; Z88.8 Allergy status to other drugs, medicaments and biological substances; Z88.5 Allergy status to narcotic agent; Z90.49 Acquired absence of other specified parts of digestive tract
CPT/HCPCS: 36415; 93005; 80053; 83735; 84484; 85025; 85610; 85730; 71046; 99285; 96374; 96375; J2270; J2405

== ENCOUNTER 2023-02-25 21:43 | Emergency (ER) | payer OTHER ==
[2023-02-25 21:49] VITALS: BP 167/106; TEMP 98.4
[2023-02-25] MEDS ORDERED: GLUCAGON 1 MG/ML VIAL IVP STA (21:56)
[2023-02-25] MEDS ORDERED: GLUCAGON 1 MG/ML VIAL IM STA (22:48)
--- NOTE | 2023-02-25 22:50 | ED ---
ENT HPI - General Chief complaint: ENT Stated complaint: Food stuck in throat Time Seen by Provider: 02/25/23 21:52 Source: patient Mode of arrival: ambulatory Limitations: no limitations - History of Present Illness Initial comments: 57-year-old male presenting with chief complaint of esophageal foreign body. He states he was eating steak around 10 AM today and feels that there is a piece lodged in his throat. When he attempts to drink fluids states that he spits them up shortly after. No difficulty breathing or chest pain. - Related Data Home Medications Medication Instructions Recorded Confirmed Insulin Lispro [humaLOG Kwikpen] See Protocol SQ ACHS 06/16/21 10/20/22 oxyCODONE-APAP 5-325MG [Percocet 1 tab PO Q6H 09/12/21 10/20/22 5-325 mg] Gabapentin [Neurontin] 400 mg PO TID 12/25/21 10/20/22 Aspirin EC [Ecotrin Low Dose] 81 mg PO DAILY 05/23/22 10/20/22 Atorvastatin Calcium [Lipitor] 40 mg PO HS 05/23/22 10/20/22 Baclofen 10 mg PO TID 05/23/22 10/20/22 Empagliflozin [Jardiance] 25 mg PO DAILY 05/23/22 10/20/22 Metoprolol Tartrate [Lopressor] 50 mg PO BID 05/23/22 10/20/22 Omeprazole Magnesium [PriLOSEC OTC] 20 mg PO DAILY PRN 05/23/22 10/20/22 lisinopriL [Zestril] 5 mg PO BID 05/23/22 10/20/22 Insulin Glargine,Hum.rec.anlog 24 units SQ BID 10/20/22 10/20/22 [Lantus Solostar Pen] Ondansetron Odt [Zofran ODT] 4 mg PO Q6H PRN 10/20/22 10/20/22 Previous Rx's Medication Instructions Recorded Tamsulosin [Flomax] 0.4 mg PO PC-BRKFST 90 Days #90 cap 10/25/22 Azithromycin [Zithromax] 250 mg PO DAILY 4 Days #4 tab 11/13/22 predniSONE 50 mg PO DAILY 5 Days #5 tab 11/14/22 Allergies Allergy/AdvReac Type Severity Reaction Status Date / Time doxycycline Allergy Swelling Verified 02/14/23 03:12 ketorolac tromethamine Allergy Rash/Hives Verified 02/14/23 03:12 [From Toradol] morphine Allergy Rash/Hives Verified 02/14/23 03:12 metoclopramide HCl AdvReac Dystonic Verified 02/14/23 03:12 [From Reglan] Reaction prochlorperazine edisylate AdvReac Dystonic Verified 02/14/23 03:12 [From Compazine] Reaction prochlorperazine maleate AdvReac Dystonic Verified 02/14/23 03:12 [From Compazine] Reaction Review of Systems ROS Statement: Those systems with pertinent positive or pertinent negative responses have been documented in the HPI. ROS Other: All systems not noted in ROS Statement are negative. Past Medical History Past Medical History: Asthma, Coronary Artery Disease (CAD), Chest Pain / Angina, Diabetes Mellitus, GERD/Reflux, GI Bleed, Hyperlipidemia, Hypertension, Myocardial Infarction (MO), Mitral Valve Prolapse (MVP), Pulmonary Embolus (PE), Sleep Apnea/CPAP/BIPAP Additional Past Medical History / Comment(s): Asthmatic bronchitis-chronic, IDDM type II, neuropathy bilateral feet, lower and upper GI bleeds, PUD, diverticulitis, colectomy d/t benign mass/intusseption, BPH, renal cysts, nephr olithiais, UTI with sepsis, chronic back pain 2ndary to herniated lumbar discs/sciatica, JARED does not use his Cpap, MVP, murmur Last Myocardial Infarction Date:: 2011 History of Any Multi-Drug Resistant Organisms: C-DIFF, MRSA Date of last positivie culture/infection: 2015 MDRO Source:: left axilla Past Surgical History: Appendectomy, Back Surgery, Cholecystectomy, Heart Catheterization, Hernia Repair Additional Past Surgical History / Comment(s): Lumbar decompression/fusion/laminectomy, spinal stimulator, T lift procedure, L inguinal hernia repair, multiple ESWLs/stents/double J caths, colonoscopy, 02/2020 colectomy, EGDs for food obstructions and dilations Past Anesthesia/Blood Transfusion Reactions: No Reported Reaction Past Psychological History: No Psychological Hx Reported Smoking Status: Never smoker Past Alcohol Use History: None Reported Past Drug Use History: None Reported - Past Family History Father Family Medical History: Chest Pain / Angina Additional Family Medical History / Comment(s): "lung problems" Mother Family Medical History: Cancer, Chest Pain / Angina, Congestive Heart Failure (CHF), Osteoarthritis (OA), Thyroid Disorder Additional Family Medical History / Comment(s): "female cancer" General Exam Limitations: no limitations General appearance: alert, in no apparent distress Head exam: Present: atraumatic, normocephalic, normal inspection Eye exam: Present: normal appearance, EOMI ENT exam: Present: normal oropharynx, mucous membranes moist Neck exam: Present: normal inspection, full ROM Respiratory exam: Present: normal lung sounds bilaterally. Absent: respiratory distress, wheezes, rales, rhonchi, stridor Cardiovascular Exam: Present: regular rate, normal rhythm, normal heart sounds. Absent: systolic murmur, diastolic murmur, rubs, gallop, clicks Neurological exam: Present: alert, oriented X3, CN II-XII intact Psychiatric exam: Present: normal affect, normal mood Skin exam: Present: warm, dry, intact, normal color. Absent: rash Course Vital Signs 02/25/23 02/25/23 21:44 23:34 Temperature 98.4 F Pulse Rate 130 H 81 Respiratory 20 18 Rate Blood Pressure 167/106 O2 Sat by Pulse 95 98 Oximetry Medical Decision Making - Medical Decision Making Was pt. sent in by a medical professional or institution (MAGGIE Oliveros, TRANSIT PLANNER, urgent care, hospital, or care home...) When possible be specific @ -No Did you speak to anyone other than the patient for history (EMS, parent, family, police, friend...)? What history was obtained from this source @ -No Did you review nursing and triage notes (agree or disagree)? Why? @ -I reviewed and agree with nursing and triage notes Were old charts reviewed (outside hosp., previous admission, EMS record, old EKG, old radiological studies, urgent care reports/EKG's, care home records)? Report findings @ -No old charts were reviewed Differential Diagnosis (chest pain, altered mental status, abdominal pain women, abdominal pain men, vaginal bleeding, weakness, fever, dyspnea, syncope, headache, dizziness, GI bleed, back pain, seizure, CVA, palpatations, mental health, musculoskeletal)? @ -not applicable EKG interpreted by me (3pts min.). @ -As above X-rays interpreted by me (1pt min.). @ -None done CT interpreted by me (1pt min.). @ -None done U/S interpreted by me (1pt. min.). @ -None done What testing was considered but not performed or refused? (CT, X-rays, U/S, labs)? Why? @ -None What meds were considered but not given or refused? Why? @ -None Did you discuss the management of the patient with other professionals (professionals i.e. , PA, TRANSIT PLANNER, lab, RT, psych nurse, psychiatric social worker, final inspector truck trailer, teacher, chief informatics officer, case management associate)? Give summary @ -No Was smoking cessation discussed for >3mins.? @ -No Was critical care preformed (if so, how long)? @ -No Were there social determinants of health that impacted care today? How? (Homelessness, low income, unemployed, alcoholism, drug addiction, transportation, low edu. Level, literacy, decrease access to med. care, longterm, rehab)? @ -No Was there de-escalation of care discussed even if they declined (Discuss DNR or withdrawal of care, Hospice)? DNR status @ -No What co-morbidities impacted this encounter? (DM, HTN, Smoking, COPD, CAD, Cancer, CVA, ARF, Chemo, Hep., AIDS, mental health diagnosis, sleep apnea, morbid obesity)? @ -None Was patient admitted / discharged? Hospital course, mention meds given and route, prescriptions, significant lab abnormalities, going to OR and other pertinent info. @ -57-year-old male presenting with chief complaint of foreign body sensation in the esophagus. He states that he was eating steak around 10 AM today and has been unable to eat or drink since then. He states that he immediately spits up liquids. No difficulty breathing. Patient is given glucagon, Valium, and carbonated beverage. He is still able to dislodge the foreign body. He is able to drink water and was able to swallow a pill here in the ER. He was given Percocet for back pain which he takes at home. Follow-up with PCP. Report back to ER with any new or worsening symptoms. Discussed return parameters and answered all questions. Patient conveyed verbal understanding and agreed to the plan. I discussed this case in detail with my attending Dr. Martínez Undiagnosed new problem with uncertain prognosis? @ -No Drug Therapy requiring intensive monitoring for toxicity (Heparin, Nitro, Insulin, Cardizem)? @ -No Were any procedures done? @ -No Diagnosis/symptom? @ -Esophageal foreign body Acute, or Chronic, or Acute on Chronic? @ -Acute Uncomplicated (without systemic symptoms) or Complicated (systemic symptoms)? @ -uncomplicated Side effects of treatment? @ -No Exacerbation, Progression, or Severe Exacerbation? @ -No Poses a threat to life or bodily function? How? (Chest pain, USA, MO, pneumonia, PE, COPD, DKA, ARF, appy, cholecystitis, CVA, Diverticulitis, Homicidal, Suicidal, threat to staff... and all critical care pts) @ -yes Disposition Clinical Impression: Impacted esophageal foreign body Disposition: HOME SELF-CARE Condition: Good Instructions (If sedation given, give patient instructions): Esophageal Foreign Body (ED) Additional Instructions: Follow-up with PCP. Report back to ER with any new or worsening symptoms. Is patient prescribed a controlled substance at d/c from ED?: No Referrals: González Muñiz MD [Primary Care Provider] - 1-2 days Time of Disposition: 01:59 - Out of Hospital Transfer - Req. Specs Out of Hospital Transfer - Requested Specifics: Other Emergency Center ([facility])
[2023-02-25 23:35] VITALS: PULSE 81; RESP 18
[2023-02-26] MEDS ORDERED: oxyCODONE-APAP 5-325MG 1 EACH TAB PO STA (01:50)
== END 2023-02-26 02:13 | disposition home or self-care (01) ==
LOC: EC 21:43
DX: T18.128A Food in esophagus causing other injury, initial encounter (principal); J45.909 Unspecified asthma, uncomplicated; K21.9 Gastro-esophageal reflux disease without esophagitis; I25.10 Atherosclerotic heart disease of native coronary artery without angina pectoris; I10 Essential (primary) hypertension; E11.9 Type 2 diabetes mellitus without complications; E78.5 Hyperlipidemia, unspecified; I25.2 Old myocardial infarction; Z88.8 Allergy status to other drugs, medicaments and biological substances; Z88.5 Allergy status to narcotic agent; Z79.4 Long term (current) use of insulin; Z79.82 Long term (current) use of aspirin; Z79.84 Long term (current) use of oral hypoglycemic drugs; Z79.899 Other long term (current) drug therapy
CPT/HCPCS: 99283; 96372 ×2; J1610

== ENCOUNTER 2023-03-10 09:15 | Inpatient (IN) | payer OTHER ==
[2023-03-10] MEDS ORDERED: SODIUM CHLORIDE 0.9% 500 ML 500 ML IV STA (09:50)
[2023-03-10] MEDS ORDERED: NITROGLYCERIN OINT 1 INCH/GM PACKET TOPICAL STA (09:50)
[2023-03-10] MEDS ORDERED: hydrALAZINE HCL 20 MG/ML 1 ML VIAL IVP STA (09:51)
--- NOTE | 2023-03-10 09:54 | ED ---
General Adult HPI - General Chief complaint: Chest Pain Stated complaint: sob Time Seen by Provider: 03/10/23 09:25 Source: patient, RN notes reviewed, old records reviewed Mode of arrival: wheelchair - History of Present Illness Initial comments: This is a 57-year-old male with a past medical history significant for an MT and angioplasty. Patient also states he has had a history of blood clots and is on eliquis. Patient states he had a PE in the past. Patient comes in today because he started having chest pain that radiates to his back and anytime he exerts himself but all his extremities short of breath per patient states this started about 2 days ago. Patient states he spoke with Dr. Muñiz and he wanted to him to come to the emergency department immediately. Patient denies any fever chills or cough per patient denies any lightheadedness or dizziness per patient denies any headache. Patient denies any abdominal pain patient is not vomiting diarrhea. Patient states the pain in the chest occasionally radiates to his back. - Related Data Home Medications Medication Instructions Recorded Confirmed Insulin Lispro [humaLOG Kwikpen] See Protocol SQ ACHS 06/16/21 10/20/22 oxyCODONE-APAP 5-325MG [Percocet 1 tab PO Q6H 09/12/21 10/20/22 5-325 mg] Gabapentin [Neurontin] 400 mg PO TID 12/25/21 10/20/22 Aspirin EC [Ecotrin Low Dose] 81 mg PO DAILY 05/23/22 10/20/22 Atorvastatin Calcium [Lipitor] 40 mg PO HS 05/23/22 10/20/22 Baclofen 10 mg PO TID 05/23/22 10/20/22 Empagliflozin [Jardiance] 25 mg PO DAILY 05/23/22 10/20/22 Metoprolol Tartrate [Lopressor] 50 mg PO BID 05/23/22 10/20/22 Omeprazole Magnesium [PriLOSEC OTC] 20 mg PO DAILY PRN 05/23/22 10/20/22 lisinopriL [Zestril] 5 mg PO BID 05/23/22 10/20/22 Insulin Glargine,Hum.rec.anlog 24 units SQ BID 10/20/22 10/20/22 [Lantus Solostar Pen] Ondansetron Odt [Zofran ODT] 4 mg PO Q6H PRN 10/20/22 10/20/22 Previous Rx's Medication Instructions Recorded Tamsulosin [Flomax] 0.4 mg PO PC-BRKFST 90 Days #90 cap 10/25/22 Azithromycin [Zithromax] 250 mg PO DAILY 4 Days #4 tab 11/13/22 predniSONE 50 mg PO DAILY 5 Days #5 tab 11/14/22 Allergies Allergy/AdvReac Type Severity Reaction Status Date / Time doxycycline Allergy Swelling Verified 03/10/23 09:25 ketorolac tromethamine Allergy Rash/Hives Verified 03/10/23 09:25 [From Toradol] morphine Allergy Rash/Hives Verified 03/10/23 09:25 metoclopramide HCl AdvReac Dystonic Verified 03/10/23 09:25 [From Reglan] Reaction prochlorperazine edisylate AdvReac Dystonic Verified 03/10/23 09:25 [From Compazine] Reaction prochlorperazine maleate AdvReac Dystonic Verified 03/10/23 09:25 [From Compazine] Reaction Review of Systems ROS Statement: Those systems with pertinent positive or pertinent negative responses have been documented in the HPI. ROS Other: All systems not noted in ROS Statement are negative. Past Medical History Past Medical History: Asthma, Coronary Artery Disease (CAD), Chest Pain / Angina, Diabetes Mellitus, GERD/Reflux, GI Bleed, Hyperlipidemia, Hypertension, Myocardial Infarction (MT), Mitral Valve Prolapse (MVP), Pulmonary Embolus (PE), Sleep Apnea/CPAP/BIPAP Additional Past Medical History / Comment(s): Asthmatic bronchitis-chronic, IDDM type II, neuropathy bilateral feet, lower and upper GI bleeds, PUD, divertic ulitis, colectomy d/t benign mass/intusseption, BPH, renal cysts, nephrolithiais, UTI with sepsis, chronic back pain 2ndary to herniated lumbar discs/sciatica, JARED does not use his Cpap, MVP, murmur Last Myocardial Infarction Date:: 2011 History of Any Multi-Drug Resistant Organisms: C-DIFF, MRSA Date of last positivie culture/infection: 2015 MDRO Source:: left axilla Past Surgical History: Appendectomy, Back Surgery, Cholecystectomy, Heart Catheterization, Hernia Repair Additional Past Surgical History / Comment(s): Lumbar decompression/fusion /laminectomy, spinal stimulator, T lift procedure, L inguinal hernia repair, multiple ESWLs/stents/double J caths, colonoscopy, 02/2020 colectomy, EGDs for food obstructions and dilations Past Anesthesia/Blood Transfusion Reactions: No Reported Reaction Past Psychological History: No Psychological Hx Reported Smoking Status: Never smoker Past Alcohol Use History: None Reported Past Drug Use History: None Reported - Past Family History Father Family Medical History: Chest Pain / Angina Additional Family Medical History / Comment(s): "lung problems" Mother Family Medical History: Cancer, Chest Pain / Angina, Congestive Heart Failure (CHF), Osteoarthritis (OA), Thyroid Disorder Additional Family Medical History / Comment(s): "female cancer" General Exam - General Exam Comments Initial Comments: GENERAL: Patient is well-developed and well-nourished. Patient is nontoxic and well- hydrated and is in mild distress. ENT: Neck is soft and supple. No significant lymphadenopathy is noted. Oropharynx is clear. Moist mucous membranes. Neck has full range of motion without eliciting any pain. EYES: The sclera were anicteric and conjunctiva were pink and moist. Extraocular movements were intact and pupils were equal round and reactive to light. Eyelids were unremarkable. PULMONARY: Unlabored respirations. Good breath sounds bilaterally. No audible rales rhonchi or wheezing was noted. CARDIOVASCULAR: Patient is tachycardic at about 125 bpm ABDOMEN: Soft and nontender with normal bowel sounds. SKIN: Skin is clear with no lesions or rashes and otherwise unremarkable. NEUROLOGIC: Patient is alert and oriented x3. Cranial nerves II through XII are grossly intact. Motor and sensory are also intact. Normal speech, volume and content. Symmetrical smile. MUSCULOSKELETAL: Normal extremities with adequate strength and full range of motion. No lower extremity swelling or edema. No calf tenderness. LYMPHATICS: No significant lymphadenopathy is noted PSYCHIATRIC: Normal psychiatric evaluation. Course Vital Signs 03/10/23 03/10/23 03/10/23 09:22 09:38 11:05 Temperature 97.1 F L Pulse Rate 120 H 117 H 129 H Respiratory 24 22 Rate Blood Pressure 150/93 193/119 O2 Sat by Pulse 97 95 93 L Oximetry 03/10/23 03/10/23 03/10/23 11:10 11:20 11:30 Temperature Pulse Rate 126 H 110 H 123 H Respiratory 22 Rate Blood Pressure 154/91 154/91 174/103 O2 Sat by Pulse 97 95 95 Oximetry 03/10/23 03/10/23 03/10/23 11:50 12:10 12:30 Temperature Pulse Rate 128 H 130 H Respiratory 14 18 Rate Blood Pressure 156/96 156/96 156/96 O2 Sat by Pulse 96 97 96 Oximetry 03/10/23 13:00 Temperature Pulse Rate 126 H Respiratory 13 Rate Blood Pressure 156/96 O2 Sat by Pulse 97 Oximetry Medical Decision Making - Medical Decision Making EKG was interpreted by myself EKG shows sinus tachycardia at 117 bpm FL interval is 242 QRS is 114 QT interval 344 QTC is 413. Patient's EKG shows no ST segment elevation or depression. Was pt. sent in by a medical professional or institution (MAGGIE Oliveros, FARM EQUIPMENT ENGINEER, urgent care, hospital, or long-term...) When possible be specific @ -[No] Did you speak to anyone other than the patient for history (EMS, parent, family, police, friend...)? What history was obtained from this source @ -[No] Did you review nursing and triage notes (agree or disagree)? Why? @ -[I reviewed and agree with nursing and triage notes] Were old charts reviewed (outside hosp., previous admission, EMS record, old EKG, old radiological studies, urgent care reports/EKG's, long-term records)? Report findings @ -I Reviewed prior charts prior laboratory radiological studies. Differential Diagnosis (chest pain, altered mental status, abdominal pain women, abdominal pain men, vaginal bleeding, weakness, fever, dyspnea, syncope, headache, dizziness, GI bleed, back pain, seizure, CVA, palpatations, mental health, musculoskeletal)? @ -Differential Chest Pain: Stable Angina, Unstable Angina, STEMI, NSTEMI Aortic Dissection, Pneumothorax, Musculoskeletal, Esophageal Spasm GERD, Cholecystitis, Pancreatitis, Zoster, this is not meant to be an all-inclusive list. EKG interpreted by me (3pts min.). @ -[As above] X-rays interpreted by me (1pt min.). @ -X-ray showed no acute abnormality. CT interpreted by me (1pt min.). @ -CT of the chest showed no pulmonary embolism U/S interpreted by me (1pt. min.). @ -[None done] What testing was considered but not performed or refused? (CT, X-rays, U/S, labs)? Why? @ -[None] What meds were considered but not given or refused? Why? @ -[None] Did you discuss the management of the patient with other professionals (professionals i.e. , PA, FARM EQUIPMENT ENGINEER, lab, RT, psych nurse, social group worker, solder making supervisor, teacher, ecological technical officer, case picker)? Give summary @ -I spoke with Dr. Muñiz and he agreed to admit the patient Was smoking cessation discussed for >3mins.? @ -No Was critical care preformed (if so, how long)? @ -[No] Were there social determinants of health that impacted care today? How? (Homelessness, low income, unemployed, alcoholism, drug addiction, transportation, low edu. Level, literacy, decrease access to med. care, shelter, rehab)? @ -[No] Was there de-escalation of care discussed even if they declined (Discuss DNR or withdrawal of care, Hospice)? DNR status @ -[No] What co-morbidities impacted this encounter? (DM, HTN, Smoking, COPD, CAD, Cancer, CVA, ARF, Chemo, Hep., AIDS, mental health diagnosis, sleep apnea, morbid obesity)? @ -[None] Was patient admitted / discharged? Hospital course, mention meds given and route, prescriptions, significant lab abnormalities, going to OR and other pertinent info. @ -Patient was in DKA psychiatric the patient an insulin bolus with an insulin drip and I also gave the patient 2 L of fluid. Patient had negative troponins and a normal CT of the chest however he complained of chest pain radiating to his back psych consulted cardiology and wrote admitting orders. Undiagnosed new problem with uncertain prognosis? @ -[No] Drug Therapy requiring intensive monitoring for toxicity (Heparin, Nitro, Insulin, Cardizem)? @ -[No] Were any procedures done? @ -[No] Diagnosis/symptom? @ -Chest pain Acute, or Chronic, or Acute on Chronic? @ -Acute Uncomplicated (without systemic symptoms) or Complicated (systemic symptoms)? @ -Complicated Side effects of treatment? @ -[No] Exacerbation, Progression, or Severe Exacerbation? @ -[No] Poses a threat to life or bodily function? How? (Chest pain, USA, MT, pneumonia, PE, COPD, DKA, ARF, appy, cholecystitis, CVA, Diverticulitis, Homicidal, Suicidal, threat to staff... and all critical care pts) @ -Yes this could lead to poor perfusion and and/or dysfunction Diagnosis/symptom? @ -DKA Acute, or Chronic, or Acute on Chronic? @ -Acute Uncomplicated (without systemic symptoms) or Complicated (systemic symptoms)? @ -Complicated Side effects of treatment? @ -[none] Exacerbation, Progression, or Severe Exacerbation] @ -[no] Poses a threat to life or bodily function? @ -Yes this could lead to watch light abnormalities severe dehydration and poor perfusion which all lead to some end organ dysfunction - Lab Data Result diagrams: 03/10/23 10:08 03/10/23 10:08 Lab Results 03/10/23 03/10/23 03/10/23 Range/Units 10:08 10:08 10:08 WBC 5.2 (3.8-10.6) k/uL RBC 5.21 (4.30-5.90) m/uL Hgb 15.6 (13.0-17.5) gm/dL Hct 45.5 (39.0-53.0) % MCV 87.2 (80.0-100.0) fL MCH 29.9 (25.0-35.0) pg MCHC 34.4 (31.0-37.0) g/dL RDW 12.8 (11.5-15.5) % Plt Count 261 (150-450) k/uL MPV 7.4 Neutrophils % 81 % Lymphocytes % 13 % Monocytes % 3 % Eosinophils % 1 % Basophils % 1 % Neutrophils # 4.3 (1.3-7.7) k/uL Lymphocytes # 0.7 L (1.0-4.8) k/uL Monocytes # 0.1 (0-1.0) k/uL Eosinophils # 0.1 (0-0.7) k/uL Basophils # 0.0 (0-0.2) k/uL PT 9.4 (9.0-12.0) sec INR 0.9 (<1.2) APTT 20.2 L (22.0-30.0) sec Sodium 132 L (137-145) mmol/L Potassium 5.2 H (3.5-5.1) mmol/L Chloride 101 (98-107) mmol/L Carbon Dioxide 19 L (22-30) mmol/L Anion Gap 12 mmol/L BUN 17 (9-20) mg/dL Creatinine 0.45 L (0.66-1.25) mg/dL Est GFR (CKD-EPI)AfAm >90 (>60 ml/min/1.73 sqM) Est GFR (CKD-EPI)NonAf >90 (>60 ml/min/1.73 sqM) Glucose 425 H (74-99) mg/dL POC Glucose (mg/dL) (70-110) mg/dL POC Glu Supervisor Painting Department ID Calcium 10.1 (8.4-10.2) mg/dL Magnesium 2.1 (1.6-2.3) mg/dL Total Bilirubin 0.8 (0.2-1.3) mg/dL AST 35 (17-59) U/L ALT 72 H (4-49) U/L Alkaline Phosphatase 170 H (38-126) U/L Troponin I (0.000-0.034) ng/mL Total Protein 7.9 (6.3-8.2) g/dL Albumin 4.6 (3.5-5.0) g/dL Acetone, Qual (Negative) 03/10/23 03/10/23 03/10/23 Range/Units 10:08 10:08 12:52 WBC (3.8-10.6) k/uL RBC (4.30-5.90) m/uL Hgb (13.0-17.5) gm/dL Hct (39.0-53.0) % MCV (80.0-100.0) fL MCH (25.0-35.0) pg MCHC (31.0-37.0) g/dL RDW (11.5-15.5) % Plt Count (150-450) k/uL MPV Neutrophils % % Lymphocytes % % Monocytes % % Eosinophils % % Basophils % % Neutrophils # (1.3-7.7) k/uL Lymphocytes # (1.0-4.8) k/uL Monocytes # (0-1.0) k/uL Eosinophils # (0-0.7) k/uL Basophils # (0-0.2) k/uL PT (9.0-12.0) sec INR (<1.2) APTT (22.0-30.0) sec Sodium (137-145) mmol/L Potassium (3.5-5.1) mmol/L Chloride (98-107) mmol/L Carbon Dioxide (22-30) mmol/L Anion Gap mmol/L BUN (9-20) mg/dL Creatinine (0.66-1.25) mg/dL Est GFR (CKD-EPI)AfAm (>60 ml/min/1.73 sqM) Est GFR (CKD-EPI)NonAf (>60 ml/min/1.73 sqM) Glucose (74-99) mg/dL POC Glucose (mg/dL) 393 H (70-110) mg/dL POC Glu Supervisor Painting Department ID Natalie Hancock Calcium (8.4-10.2) mg/dL Magnesium (1.6-2.3) mg/dL Total Bilirubin (0.2-1.3) mg/dL AST (17-59) U/L ALT (4-49) U/L Alkaline Phosphatase (38-126) U/L Troponin I <0.012 (0.000-0.034) ng/mL Total Protein (6.3-8.2) g/dL Albumin (3.5-5.0) g/dL Acetone, Qual Positive (Negative) Disposition Clinical Impression: Diabetic ketoacidosis, Chest pain Disposition: ADMITTED IP TO THIS HOSP Referrals: González Muñiz MD [Primary Care Provider] - 1-2 days Time of Disposition: 13:22
[2023-03-10 10:19] LABS: Basophils % (A) 1 %; Eosinophils # (A) 0.1 k/uL (0-0.7); Eosinophils % (A) 1 %; HCT 45.5 % (39.0-53.0); HGB 15.6 gm/dL (13.0-17.5); Lymphocytes # (A) 0.7 k/uL (1.0-4.8); Lymphocytes % (A) 13 %; MCH 29.9 pg (25.0-35.0); MCHC 34.4 g/dL (31.0-37.0); MCV 87.2 fL (80.0-100.0); Mean Platelet Volume 7.4; Monocytes # (A) 0.1 k/uL (0-1.0); Monocytes % (A) 3 %; Neutrophils # (A) 4.3 k/uL (1.3-7.7); Neutrophils % (A) 81 %; Platelet Count 261 k/uL (150-450); RBC 5.21 m/uL (4.30-5.90); RDW 12.8 % (11.5-15.5); WBC 5.2 k/uL (3.8-10.6)
[2023-03-10 10:38] LABS: ALT 72 U/L (4-49); African American GFR (CKD) >90 (>60 ml/min/1.73 sqM); Albumin 4.6 g/dL (3.5-5.0); Anion Gap 12 mmol/L; Blood Urea Nitrogen 17 mg/dL (9-20); Calcium 10.1 mg/dL (8.4-10.2); Carbon Dioxide 19 mmol/L (22-30); Chloride 101 mmol/L (98-107); Glucose 425 mg/dL (74-99); Non-African American GFR(CKD) >90 (>60 ml/min/1.73 sqM); Sodium 132 mmol/L (137-145); Total Bilirubin 0.8 mg/dL (0.2-1.3); Total Protein 7.9 g/dL (6.3-8.2)
[2023-03-10 10:54] LABS: INR 0.9 (<1.2); Partial Thromboplastin Time 20.2 sec (22.0-30.0); Prothrombin Time 9.4 sec (9.0-12.0)
[2023-03-10 10:58] LABS: AST 35 U/L (17-59); Alkaline Phosphatase 170 U/L (38-126); Magnesium 2.1 mg/dL (1.6-2.3); Potassium 5.2 mmol/L (3.5-5.1)
[2023-03-10] MEDS ORDERED: HYDROmorphone 0.5 MG/0.5 ML SYRINGE IVP STA (11:08)
--- NOTE | 2023-03-10 11:58 | CT ---
EXAMINATION TYPE: CT chest angio for PE DATE OF EXAM: 03/10/2023 COMPARISON: None HISTORY: 57-year-old male Chest pain, history of clots TECHNIQUE: Contiguous axial scanning of the chest performed with IV Contrast, patient injected with 1 00 ml mL of Isovue 370. Coronal/sagittal MIP reconstructions performed. CT DLP: 778.3 mGycm Automated exposure control for dose reduction was used. FINDINGS: Heart upper limits of normal in size. No pericardial effusion. Conventional vessel branching anatomy. No thoracic lymphadenopathy by CT size criteria. The patient is breathing through the scan. This markedly degrades the assessment for pulmonary embolu s. No obvious large central main branch pulmonary embolus is seen. Lobar, segmental, and more distal arterial branches are essentially nondiagnostic emboli in these loc ations cannot be excluded on the basis of this exam. No gokul consolidation or pleural effusion. Severe hepatic steatosis in the visualized upper abdomen. Spinal stimulator ray centered along the lo wer thoracic spinal canal. DISH in the mid and lower thoracic spine. IMPRESSION: 1. THE PATIENT IS BREATHING THROUGH THE SCAN. NO OBVIOUS LARGE CENTRAL MAIN BRANCH OR SADDLE PULMONAR Y EMBOLUS. OTHERWISE HOWEVER, THE LOBAR, SEGMENTAL, AND MORE DISTAL ARTERIAL BRANCHES ARE NONDIAGNOST IC AND EMBOLI IN THESE LOCATIONS CANNOT BE EXCLUDED ON THE BASIS OF THIS EXAM. 2. SEVERE HEPATIC STEATOSIS. THE VISUALIZED UPPER ABDOMEN. APPROPRIATE CLINICAL MANAGEMENT RECOMMENDE Ariadna.
--- NOTE | 2023-03-10 12:44 | XR ---
EXAMINATION TYPE: XR chest 2V DATE OF EXAM: 03/10/2023 COMPARISON: 02/14/2023 TECHNIQUE: PA and lateral views submitted. HISTORY: Chest FINDINGS: The lungs are clear and there is no pneumothorax, pleural effusion, or focal pneumonia. Heart size normal and no overt failure. Osseous structures demonstrate hypertrophic and degenerative changes of the spine. Intrathecal catheter. Bilateral pleural thickening and surgical change of the cervical sp ine. IMPRESSION: 1. No acute process.
[2023-03-10 12:53] LABS: Glucose,Whole Blood 393 mg/dL (70-110)
[2023-03-10] MEDS ORDERED: SODIUM CHLORIDE 0.9% 2,000 ML IV ONE (13:16)
[2023-03-10] MEDS ORDERED: INSULIN REGULAR BOLUS (FROM DRIP BAG) IV ONE (13:16)
[2023-03-10] MEDS ORDERED: INSULIN REGULAR 100 UNIT in SODIUM CHLORIDE 0.9% 100 ML IV SCH (13:30)
[2023-03-10] MEDS: SODIUM CHLORIDE 0.9% 1,000 ML IV SCH ×2 (13:32→19:59)
[2023-03-10 13:35] LABS: Glucose,Whole Blood 378 mg/dL (70-110)
[2023-03-10] MEDS: oxyCODONE-APAP 5-325MG 1 EACH TAB PO PRN ×2 (14:46→20:47)
[2023-03-10 15:02] LABS: Glucose,Whole Blood 311 mg/dL (70-110)
[2023-03-10 15:51] LABS: Glucose,Whole Blood 271 mg/dL (70-110)
[2023-03-10] MEDS: D5-0.45% NACL WITH KCL 20MEQ/L 1,000 ML IV SCH (16:14)
[2023-03-10 16:42] LABS: Glucose,Whole Blood 199 mg/dL (70-110)
[2023-03-10 17:49] LABS: Glucose,Whole Blood 187 mg/dL (70-110)
[2023-03-10] MEDS ORDERED: Potassium Replacement Protocol 1 EACH MISC MISCELLANE PRN (18:15)
[2023-03-10] MEDS ORDERED: DEXTROSE 50% SYRINGE 50 ML IVP PRN ×2 (18:15)
[2023-03-10] MEDS ORDERED: Magnesium Replacement Protocol 1 EACH MISC MISCELLANE PRN (18:15)
[2023-03-10] MEDS ORDERED: ONDANSETRON ODT 4 MG TAB PO PRN (18:18)
[2023-03-10] MEDS: INSULIN REGULAR 100 UNIT in SODIUM CHLORIDE 0.9% 100 ML IV SCH ×2 (18:31→20:35)
[2023-03-10 18:46] LABS: Glucose,Whole Blood 185 mg/dL (70-110)
[2023-03-10 19:43] LABS: Glucose,Whole Blood 186 mg/dL (70-110)
[2023-03-10 19:56] LABS: African American GFR (CKD) >90 (>60 ml/min/1.73 sqM); Anion Gap 10 mmol/L; Blood Urea Nitrogen 14 mg/dL (9-20); Carbon Dioxide 18 mmol/L (22-30); Chloride 107 mmol/L (98-107); Glucose 162 mg/dL (74-99); Non-African American GFR(CKD) >90 (>60 ml/min/1.73 sqM); Phosphorus 3.5 mg/dL (2.5-4.5); Potassium 4.3 mmol/L (3.5-5.1); Sodium 135 mmol/L (137-145)
[2023-03-10] MEDS: SYMBICORT 80-4.5 MCG INHALER INHALATION SCH (20:30)
[2023-03-10 20:42] LABS: Glucose,Whole Blood 238 mg/dL (70-110)
[2023-03-10] MEDS: BACLOFEN 10 MG TAB PO SCH (20:46)
[2023-03-10] MEDS: ATORVASTATIN 40 MG TAB PO SCH (20:47)
[2023-03-10] MEDS: GABAPENTIN 400 MG CAP PO SCH (20:47)
[2023-03-10] MEDS: PANTOPRAZOLE 40 MG TABLET PO SCH (20:47)
[2023-03-10] MEDS: carvediloL 12.5 MG TAB PO SCH (20:48)
[2023-03-10 21:50] LABS: Glucose,Whole Blood 286 mg/dL (70-110)
[2023-03-10] MEDS: HYDROmorphone 0.5 MG/0.5 ML SYRINGE IVP PRN (22:25)
[2023-03-10 22:58] LABS: Glucose,Whole Blood 296 mg/dL (70-110)
[2023-03-10 23:49] LABS: Glucose,Whole Blood 289 mg/dL (70-110)
[2023-03-11 00:15] LABS: Basophils % (A) 0 %; Eosinophils # (A) 0.3 k/uL (0-0.7); Eosinophils % (A) 4 %; HCT 38.6 % (39.0-53.0); Lymphocytes # (A) 2.2 k/uL (1.0-4.8); Lymphocytes % (A) 30 %; MCH 30.3 pg (25.0-35.0); MCHC 33.8 g/dL (31.0-37.0); MCV 89.6 fL (80.0-100.0); Mean Platelet Volume 7.5; Monocytes # (A) 0.3 k/uL (0-1.0); Monocytes % (A) 5 %; Neutrophils # (A) 4.5 k/uL (1.3-7.7); Neutrophils % (A) 61 %; Platelet Count 268 k/uL (150-450); RBC 4.31 m/uL (4.30-5.90); RDW 13.2 % (11.5-15.5); WBC 7.4 k/uL (3.8-10.6)
[2023-03-11 00:39] LABS: African American GFR (CKD) >90 (>60 ml/min/1.73 sqM); Anion Gap 12 mmol/L; Blood Urea Nitrogen 15 mg/dL (9-20); Carbon Dioxide 14 mmol/L (22-30); Chloride 103 mmol/L (98-107); Glucose 249 mg/dL (74-99); Non-African American GFR(CKD) >90 (>60 ml/min/1.73 sqM); Potassium 3.7 mmol/L (3.5-5.1); Sodium 129 mmol/L (137-145)
[2023-03-11 01:56] LABS: Glucose,Whole Blood 225 mg/dL (70-110)
[2023-03-11 02:58] LABS: Glucose,Whole Blood 102 mg/dL (70-110)
[2023-03-11] MEDS: oxyCODONE-APAP 5-325MG 1 EACH TAB PO PRN ×3 (03:02→18:44)
[2023-03-11 03:57] LABS: Glucose,Whole Blood 101 mg/dL (70-110)
[2023-03-11] MEDS: INSULIN REGULAR 100 UNIT in SODIUM CHLORIDE 0.9% 100 ML IV SCH (04:03)
[2023-03-11 05:23] LABS: Glucose,Whole Blood 183 mg/dL (70-110)
[2023-03-11 06:20] LABS: Glucose,Whole Blood 184 mg/dL (70-110)
[2023-03-11] MEDS: carvediloL 12.5 MG TAB PO SCH ×2 (06:22→17:01)
[2023-03-11] MEDS: D5-0.45% NACL WITH KCL 20MEQ/L 1,000 ML IV SCH ×4 (06:23→18:49)
[2023-03-11 07:04] LABS: Glucose,Whole Blood 204 mg/dL (70-110)
[2023-03-11] MEDS: SYMBICORT 80-4.5 MCG INHALER INHALATION SCH (08:23)
[2023-03-11 09:02] LABS: Glucose,Whole Blood 246 mg/dL (70-110)
[2023-03-11] MEDS: GABAPENTIN 400 MG CAP PO SCH ×3 (09:03→20:11)
[2023-03-11] MEDS: TAMSULOSIN 0.4 MG CAP.ER.24H PO SCH (09:03)
[2023-03-11] MEDS: NIFEdipine XL 30 MG TAB.ER.24 PO SCH (09:03)
[2023-03-11] MEDS: HYDROmorphone 0.5 MG/0.5 ML SYRINGE IVP PRN ×4 (09:03→21:05)
[2023-03-11] MEDS: ASPIRIN 81 MG PO SCH (09:03)
[2023-03-11] MEDS: PANTOPRAZOLE 40 MG TABLET PO SCH ×2 (09:03→20:11)
[2023-03-11] MEDS: BACLOFEN 10 MG TAB PO SCH ×3 (09:03→20:11)
[2023-03-11 10:03] LABS: Glucose,Whole Blood 266 mg/dL (70-110)
[2023-03-11 10:37] LABS: African American GFR (CKD) >90 (>60 ml/min/1.73 sqM); Anion Gap 10 mmol/L; Blood Urea Nitrogen 13 mg/dL (9-20); Calcium 8.5 mg/dL (8.4-10.2); Carbon Dioxide 15 mmol/L (22-30); Chloride 110 mmol/L (98-107); Glucose 267 mg/dL (74-99); Non-African American GFR(CKD) >90 (>60 ml/min/1.73 sqM); Sodium 135 mmol/L (137-145)
[2023-03-11 11:02] LABS: Glucose,Whole Blood 260 mg/dL (70-110)
[2023-03-11] MEDS: IPRATROPIUM-ALBUTEROL 3 ML NEB INHALATION SCH ×3 (11:38→19:40)
[2023-03-11 12:04] LABS: Glucose,Whole Blood 223 mg/dL (70-110)
--- NOTE | 2023-03-11 12:33 | HP ---
HISTORY AND PHYSICAL HISTORY OF PRESENT ILLNESS: This is a 57-year-old white male who has been severe short of breath for 2-3 days after he aspirated water and food into his lungs. He came to the ER for that. He was sent home. He has been having shortness of breath for the last 2-3 days since his happened. He came in with elevated blood sugars and shortness of breath. He had a chest CTA due to worsening shortness of breath when he came in. Scan shows no obvious aortic branches are nondiagnostic and they could not tell for sure. His sugar has been 100 to 200. He is on DKA protocol. PHYSICAL EXAMINATION: VITALS: On admission were good at temperature 98.1, pulse 100, respiratory rate 16 to 18, blood pressure 123/75, and O2 97 on room air. CARDIOVASCULAR: S1, S2. LUNGS: Transmitted upper sounds, scattered wheeze. HEMATOLOGY: Negative for Homans. GI: Soft, nontender. PSYCH: Appears anxious, nervous. NEUROLOGIC: Cranial nerves intact. Plan, will do a swallowing test and check for aspiration pneumonia and treat him for asthma, COPD exacerbation versus aspiration pneumonia, do breathing treatments with steroids. We will also rule out dysphagia with a swallow eval, DKA protocol for DKA and dehydration. Consult Dr. Fritz, we got a sleep apnea test ordered for him in about 2 to 3 weeks. PAST MEDICAL HISTORY: PE, sleep apnea not treated, asthma, coronary artery disease, angina, diabetes, GERD, dyslipidemia, hypertension, myocardial infarction, mitral valve prolapse, type 2 diabetes, BPH, recurrent UTIs, and lumbar disk disease. FAMILY HISTORY: Father, chest pain, angina. Mother, CHF, osteoarthritis, hypothyroidism. PAST SURGICAL HISTORY: Lumbar decompressive laminectomy, spinal stimulator, [facility], multiple stents colonoscopy, left inguinal hernia repair, EGD for food obstructions, dilations. PROGNOSIS: Guarded. Please see further orders. MMODL / IJN: [id number] /
[2023-03-11 13:03] LABS: Glucose,Whole Blood 194 mg/dL (70-110)
[2023-03-11 14:55] LABS: Glucose,Whole Blood 179 mg/dL (70-110)
[2023-03-11 15:48] LABS: African American GFR (CKD) >90 (>60 ml/min/1.73 sqM); Anion Gap 7 mmol/L; Blood Urea Nitrogen 10 mg/dL (9-20); Calcium 8.2 mg/dL (8.4-10.2); Carbon Dioxide 18 mmol/L (22-30); Chloride 106 mmol/L (98-107); Glucose 154 mg/dL (74-99); Non-African American GFR(CKD) >90 (>60 ml/min/1.73 sqM); Sodium 131 mmol/L (137-145)
[2023-03-11 16:05] LABS: Glucose,Whole Blood 169 mg/dL (70-110)
[2023-03-11] MEDS ORDERED: DEXTROSE 50% SYRINGE 50 ML IVP PRN ×2 (16:13)
[2023-03-11] MEDS: INSULIN ASPART (NovoLOG) 100 UNIT/ML VIAL SQ SCH ×2 (17:02→20:11)
[2023-03-11] MEDS: BUDESONIDE 0.5 MG/2 ML NEBU INHALATION SCH (19:40)
[2023-03-11 20:01] LABS: Glucose,Whole Blood 247 mg/dL (70-110)
[2023-03-11] MEDS: ATORVASTATIN 40 MG TAB PO SCH (20:11)
[2023-03-11] MEDS: INSULIN DETEMIR (LEVEMIR) 100 UNIT/ML SYR SQ SCH (20:12)
[2023-03-12] MEDS: HYDROmorphone 0.5 MG/0.5 ML SYRINGE IVP PRN ×6 (01:10→22:32)
[2023-03-12] MEDS: oxyCODONE-APAP 5-325MG 1 EACH TAB PO PRN ×3 (04:03→20:04)
[2023-03-12 06:09] LABS: Glucose,Whole Blood 253 mg/dL (70-110)
[2023-03-12] MEDS: carvediloL 12.5 MG TAB PO SCH ×2 (06:21→16:54)
[2023-03-12] MEDS: INSULIN ASPART (NovoLOG) 100 UNIT/ML VIAL SQ SCH ×4 (06:22→20:06)
[2023-03-12] MEDS: INSULIN DETEMIR (LEVEMIR) 100 UNIT/ML SYR SQ SCH ×2 (06:22→20:04)
[2023-03-12] MEDS: IPRATROPIUM-ALBUTEROL 3 ML NEB INHALATION SCH ×4 (08:23→20:22)
[2023-03-12] MEDS: BUDESONIDE 0.5 MG/2 ML NEBU INHALATION SCH ×2 (08:23→20:22)
[2023-03-12] MEDS: NIFEdipine XL 30 MG TAB.ER.24 PO SCH (09:04)
[2023-03-12] MEDS: TAMSULOSIN 0.4 MG CAP.ER.24H PO SCH (09:04)
[2023-03-12] MEDS: PANTOPRAZOLE 40 MG TABLET PO SCH ×2 (09:04→20:05)
[2023-03-12] MEDS: GABAPENTIN 400 MG CAP PO SCH ×3 (09:04→20:04)
[2023-03-12] MEDS: BACLOFEN 10 MG TAB PO SCH ×3 (09:04→20:13)
[2023-03-12] MEDS: ASPIRIN 81 MG PO SCH (09:04)
[2023-03-12 11:10] LABS: ALT 48 U/L (4-49); AST 46 U/L (17-59); African American GFR (CKD) >90 (>60 ml/min/1.73 sqM); Albumin 3.7 g/dL (3.5-5.0); Alkaline Phosphatase 86 U/L (38-126); Anion Gap 10 mmol/L; Blood Urea Nitrogen 12 mg/dL (9-20); Calcium 9.4 mg/dL (8.4-10.2); Carbon Dioxide 15 mmol/L (22-30); Chloride 109 mmol/L (98-107); Glucose 265 mg/dL (74-99); Non-African American GFR(CKD) >90 (>60 ml/min/1.73 sqM); Sodium 134 mmol/L (137-145); Total Bilirubin 0.8 mg/dL (0.2-1.3); Total Protein 6.4 g/dL (6.3-8.2)
[2023-03-12 11:18] LABS: Basophils % (A) 1 %; Eosinophils # (A) 0.2 k/uL (0-0.7); Eosinophils % (A) 4 %; HCT 40.8 % (39.0-53.0); HGB 14.1 gm/dL (13.0-17.5); Lymphocytes # (A) 1.2 k/uL (1.0-4.8); Lymphocytes % (A) 27 %; MCH 30.1 pg (25.0-35.0); MCHC 34.4 g/dL (31.0-37.0); MCV 87.3 fL (80.0-100.0); Mean Platelet Volume 9.1; Monocytes # (A) 0.3 k/uL (0-1.0); Monocytes % (A) 6 %; Neutrophils # (A) 2.6 k/uL (1.3-7.7); Neutrophils % (A) 59 %; Platelet Count 217 k/uL (150-450); RBC 4.68 m/uL (4.30-5.90); RDW 12.8 % (11.5-15.5); WBC 4.4 k/uL (3.8-10.6)
[2023-03-12 11:30] LABS: Potassium 5.4 mmol/L (3.5-5.1)
[2023-03-12 12:02] LABS: Glucose,Whole Blood 256 mg/dL (70-110)
[2023-03-12 16:31] LABS: Glucose,Whole Blood 215 mg/dL (70-110)
[2023-03-12 17:54] VITALS: BMI 36.6
[2023-03-12 19:59] LABS: Glucose,Whole Blood 265 mg/dL (70-110)
[2023-03-12] MEDS: ATORVASTATIN 40 MG TAB PO SCH (20:04)
--- NOTE | 2023-03-12 23:37 | PN ---
PROGRESS NOTE A 57-year-old white male, remains on Pulmicort, DuoNeb for COPD, wears oxygen at night. He woke up last night with short of breath in the middle of the night. He has had outpatient sleep study that is pending. Sodium is 134, potassium 5.4, carbon dioxide is 15. Sugars in the mid 200s. Creatinine is over 90. He is about 30% better than admission. He has had a swallow study pending. aspirated food and water 4 days ago. He is on GERD precautions, potassium replacement protocol, Flomax, nifedipine, insulin. He is on Levemir 24 units subcu b.i.d., Accu-Chek protocol. Hypoglycemia midline. . Fluid barium swallow is pending. Sat 98% on 2 L. Blood pressure 144/87, pulse 88 to 90, respiratory rate 16 to 18. Insulin-dependent diabetes mellitus. DKA. COPD. Sleep apnea, hypertension. Prognosis guarded. MMODL / IJN: [id number] /
[2023-03-13] MEDS: oxyCODONE-APAP 5-325MG 1 EACH TAB PO PRN ×3 (01:37→17:29)
[2023-03-13] MEDS: HYDROmorphone 0.5 MG/0.5 ML SYRINGE IVP PRN ×3 (04:05→14:32)
[2023-03-13 06:11] LABS: Glucose,Whole Blood 224 mg/dL (70-110)
[2023-03-13] MEDS: carvediloL 12.5 MG TAB PO SCH ×2 (06:21→17:29)
[2023-03-13] MEDS: INSULIN DETEMIR (LEVEMIR) 100 UNIT/ML SYR SQ SCH ×2 (06:21→21:05)
[2023-03-13] MEDS: INSULIN ASPART (NovoLOG) 100 UNIT/ML VIAL SQ SCH ×4 (06:22→21:06)
[2023-03-13] MEDS: BUDESONIDE 0.5 MG/2 ML NEBU INHALATION SCH ×2 (07:44→20:50)
[2023-03-13] MEDS: IPRATROPIUM-ALBUTEROL 3 ML NEB INHALATION SCH ×4 (07:44→20:50)
[2023-03-13] MEDS: NIFEdipine XL 30 MG TAB.ER.24 PO SCH (08:21)
[2023-03-13] MEDS: ASPIRIN 81 MG PO SCH (08:21)
[2023-03-13] MEDS: PANTOPRAZOLE 40 MG TABLET PO SCH ×2 (08:21→21:06)
[2023-03-13] MEDS: GABAPENTIN 400 MG CAP PO SCH ×3 (08:21→21:06)
[2023-03-13] MEDS: TAMSULOSIN 0.4 MG CAP.ER.24H PO SCH (08:21)
[2023-03-13] MEDS: BACLOFEN 10 MG TAB PO SCH ×3 (08:21→21:06)
[2023-03-13 11:43] LABS: Glucose,Whole Blood 312 mg/dL (70-110)
[2023-03-13 12:05] LABS: Basophils % (A) 0 %; Eosinophils # (A) 0.2 k/uL (0-0.7); Eosinophils % (A) 5 %; HCT 41.3 % (39.0-53.0); HGB 13.6 gm/dL (13.0-17.5); Lymphocytes # (A) 1.4 k/uL (1.0-4.8); Lymphocytes % (A) 29 %; MCH 29.3 pg (25.0-35.0); MCV 88.6 fL (80.0-100.0); Mean Platelet Volume 7.6; Monocytes # (A) 0.2 k/uL (0-1.0); Monocytes % (A) 4 %; Neutrophils # (A) 2.9 k/uL (1.3-7.7); Neutrophils % (A) 60 %; Platelet Count 237 k/uL (150-450); RBC 4.66 m/uL (4.30-5.90); RDW 12.9 % (11.5-15.5); WBC 4.8 k/uL (3.8-10.6)
[2023-03-13 12:21] LABS: ALT 43 U/L (4-49); AST 35 U/L (17-59); African American GFR (CKD) >90 (>60 ml/min/1.73 sqM); Albumin 3.7 g/dL (3.5-5.0); Alkaline Phosphatase 98 U/L (38-126); Anion Gap 6 mmol/L; Blood Urea Nitrogen 13 mg/dL (9-20); Calcium 9.2 mg/dL (8.4-10.2); Carbon Dioxide 21 mmol/L (22-30); Chloride 105 mmol/L (98-107); Glucose 283 mg/dL (74-99); Non-African American GFR(CKD) >90 (>60 ml/min/1.73 sqM); Potassium 4.5 mmol/L (3.5-5.1); Sodium 132 mmol/L (137-145); Total Bilirubin 0.6 mg/dL (0.2-1.3); Total Protein 6.4 g/dL (6.3-8.2)
[2023-03-13 16:38] LABS: Glucose,Whole Blood 189 mg/dL (70-110)
[2023-03-13] MEDS ORDERED: HYDROmorphone 1 MG/ML 1 ML SYRINGE IVP STA (18:03)
[2023-03-13 20:04] LABS: Glucose,Whole Blood 249 mg/dL (70-110)
[2023-03-13] MEDS: ATORVASTATIN 40 MG TAB PO SCH (21:06)
--- NOTE | 2023-03-13 22:16 | PN ---
PROGRESS NOTE SUBJECTIVE: A 57-year-old white male, remains on pulmonary breathing treatments for shortness of breath. He was DKA, which is improving. Recent EKG is within normal limits. He is going to get a swallow eval in the morning. OBJECTIVE: VITAL SIGNS: Blood pressure 129/86, O2 is 99% on 2 L, pulse 80s to 90s, respiratory rate 16 to 18. CARDIOVASCULAR: S1, S2. LUNGS: Rales at the bases. Mild wheeze. HEMATOLOGY: Negative Homans. PSYCH: Fair mood and affect. ASSESSMENT: Hyponatremia, diabetes mellitus, probable sleep apnea as a chronic obstructive pulmonary disease exacerbation, swallow evaluation, this is to be done in the morning and possibly discharge home after that. Prognosis guarded. MMODL / IJN: [id number] /
[2023-03-14] MEDS: HYDROmorphone 0.5 MG/0.5 ML SYRINGE IVP PRN ×5 (00:08→16:45)
[2023-03-14] MEDS: INSULIN DETEMIR (LEVEMIR) 100 UNIT/ML SYR SQ SCH (06:00)
[2023-03-14] MEDS: carvediloL 12.5 MG TAB PO SCH ×2 (06:00→16:45)
[2023-03-14 06:03] LABS: Glucose,Whole Blood 203 mg/dL (70-110)
[2023-03-14] MEDS: INSULIN ASPART (NovoLOG) 100 UNIT/ML VIAL SQ SCH ×3 (06:11→16:45)
[2023-03-14] MEDS: IPRATROPIUM-ALBUTEROL 3 ML NEB INHALATION SCH ×3 (08:07→15:16)
[2023-03-14] MEDS: BUDESONIDE 0.5 MG/2 ML NEBU INHALATION SCH (08:07)
[2023-03-14] MEDS: BACLOFEN 10 MG TAB PO SCH ×2 (09:04→15:16)
[2023-03-14] MEDS: PANTOPRAZOLE 40 MG TABLET PO SCH (09:04)
[2023-03-14] MEDS: GABAPENTIN 400 MG CAP PO SCH ×2 (09:04→15:16)
[2023-03-14] MEDS: NIFEdipine XL 30 MG TAB.ER.24 PO SCH (09:04)
[2023-03-14] MEDS: TAMSULOSIN 0.4 MG CAP.ER.24H PO SCH (09:04)
[2023-03-14] MEDS: ASPIRIN 81 MG PO SCH (09:04)
--- NOTE | 2023-03-14 09:43 | CT ---
EXAMINATION TYPE: CT thoracic spine wo con CT DLP: 1777.4 mGycm, Automated exposure control for dose reduction was used. DATE OF EXAM: 03/14/2023 9:28 AM COMPARISON: 03/10/2023 CT chest. CLINICAL INDICATION:Male, 57 years old with history of thoracic radiculopathy, Thoracic Radiculopathy TECHNIQUE: Axial images of the thoracic spine were obtained without contrast. Coronal and sagittal re formats were performed. FINDINGS: Multilevel disc degeneration changes are seen throughout the spine with large anterior and lateral osteophytes. Spinal canal and neural foramen appear grossly intact. There is no stimulator de vice present from T9 to T11. There is no evidence of fracture. The gallbladder is surgically absent. Circumscribed dense object within the esophagus which may possi karen relate to medicine at the level just below the leeanna. IMPRESSION: 1. Mild multilevel disc degeneration changes with stimulator present. No evidence for significant sp inal canal or neural foraminal stenosis given the limitations of CT technique. 2. High density circumscribe object in the esophagus could represent stuck medicine.
[2023-03-14] MEDS: oxyCODONE-APAP 5-325MG 1 EACH TAB PO PRN (11:26)
[2023-03-14 11:46] LABS: Glucose,Whole Blood 279 mg/dL (70-110)
--- NOTE | 2023-03-14 12:05 | FL ---
EXAMINATION TYPE: FL barium swallow DATE OF EXAM: 03/14/2023 CLINICAL INDICATION: 57-year-old male with difficulty swallowing, aspiration COMPARISON: None Total Fluoroscopy Time: 2 minutes 29 seconds DOSE AREA PRODUCT (DAP) UGY*M,MGY*CM: 753.04 64 images obtained. FINDINGS: The swallowing mechanism is normal. There are C4-C5 and C5-C6 intervertebral disc prostheses. On the frontal swallowing images, there is focal indentation along the left lateral wall of the cervical eso phagus at the C6 level. No corresponding abnormal narrowing or abnormal CP muscle hypertrophy identif ied on the lateral view or diverticulum. The thoracic portion has a normal course and caliber. There is moderate esophageal dysmotility with b lunted secondary stripping waves and mild tertiary peristalsis. This results in prolonged pooling of contrast throughout the esophagus. The mucosa is normal and no persistent filling defect is encountered. No sizable hiatal hernia seen. Valsalva and positional maneuvers were unsuccessful and elicited any g astroesophageal reflux. IMPRESSION: 1. Focal indentation along the left lateral wall of the cervical esophagus at the C6 level may be due to some asymmetric peristalsis or scarring from patient's prior cervical spine surgery. No correspon ding abnormal narrowing seen on the lateral view or abnormal CP muscle hypertrophy. Correlate with fi ndings on endoscopy. Contrast-enhanced CT soft tissue neck can also be considered if endoscopy shows no specific explanation for the patient's symptoms. 2. Moderate esophageal dysmotility with blunted secondary stripping waves. 3. Otherwise, no specific abnormality seen.
--- NOTE | 2023-03-14 14:48 | P.CONS ---
History of Present Illness - Reason for Consult Consult date: 03/14/23 Esophageal dysmotility, EGD Requesting physician: González Muñiz - Chief Complaint Shortness of breath, chest pain - History of Present Illness 57-year-old male who presented to the emergency department 4 days ago with complaints of shortness of breath and chest pain. Patient has multiple comorbidities including history of pulmonary embolism, DVT, coronary artery disease, diabetes mellitus, GERD, hypertension, GI bleed, history of dysphagia and esophageal dilation, diverticulosis, previous cervical surgery and previous colectomy. Patient states a he was admitted with shortness of breath and chest pain, and diabetic ketoacidosis. He states complains of some dysphagia. States he was in the emergency department 1-2 weeks ago with food bolus, patient was going to be transferred to facility with the gastroenterology however eventually pass. States that it happened about 3 months ago as well. States he's had a history in the past of food boluses where he said to undergo EGD with esophageal dilation. Please last EGD was around age 51 as well as this screening colonoscopy. States his previous EGDs have been done by Dr. Arias and Dr. Arora at [facility]. Patient underwent a barium swallow ported esophageal dysmotility. Gastroenterology was consulted for the above. Review of Systems REVIEW OF SYSTEMS: CARDIOPULMONARY: No chest pain or shortness of breath. Gastrointestinal: He does report acid reflux. Dysphagia with solids. No nausea or vomiting. No hematemesis, coffee-ground emesis. No rectal bleeding, or melena. GENITOURINARY: No dysuria or hematuria. MUSCULOSKELETAL: Reports normal range of motion. SKIN: No rashes. No jaundice. ENDOCRINE: No chills, fevers. No excessive weight gain or loss. No polydipsia or polyuria. PSYCHIATRIC: Unremarkable. NEUROLOGY: No change in mental status. Denies dizziness, headache. ENT: Vision unremarkable. CONSTITUTIONAL: No recent weight loss. No fever, chills, night sweats. Past Medical History Past Medical History: Asthma, Coronary Artery Disease (CAD), Chest Pain / Angina, Diabetes Mellitus, GERD/Reflux, GI Bleed, Hyperlipidemia, Hypertension, Myocardial Infarction ([place]), Mitral Valve Prolapse (MVP), Pulmonary Embolus (PE), Sleep Apnea/CPAP/BIPAP Additional Past Medical History / Comment(s): Asthmatic bronchitis-chronic, IDDM type II, neuropathy bilateral feet, lower and upper GI bleeds, PUD, diverticulitis, colectomy d/t benign mass/intusseption, BPH, renal cysts, nephrolithiais, UTI with sepsis, chronic back pain 2ndary to herniated lumbar discs/sciatica, JARED does not use his Cpap, MVP, murmur Last Myocardial Infarction Date:: 2011 History of Any Multi-Drug Resistant Organisms: C-DIFF, MRSA Year Discovered:: 2016 MDRO Source:: left axilla Past Surgical History: Appendectomy, Back Surgery, Cholecystectomy, Heart Catheterization, Hernia Repair Additional Past Surgical History / Comment(s): Lumbar decompression/fusi on/laminectomy, spinal stimulator, T lift procedure, L inguinal hernia repair, multiple ESWLs/stents/double J caths, colonoscopy, 02/2020 colectomy, EGDs for food obstructions and dilations Past Anesthesia/Blood Transfusion Reactions: No Reported Reaction Past Psychological History: No Psychological Hx Reported Additional Psychological History / Comment(s): Pt resides with his mother for whom he is caregiver. Pt is indpendent. He has a cpap but does not use it. He has a glucometer. Smoking Status: Never smoker Past Alcohol Use History: None Reported Past Drug Use History: None Reported - Past Family History Father Family Medical History: Chest Pain / Angina Additional Family Medical History / Comment(s): "lung problems" Mother Family Medical History: Cancer, Chest Pain / Angina, Congestive Heart Failure (CHF), Osteoarthritis (OA), Thyroid Disorder Additional Family Medical History / Comment(s): "female cancer" Medications and Allergies Home Medications Medication Instructions Recorded Confirmed Type Insulin Lispro [humaLOG Kwikpen] See Protocol SQ ACHS 06/16/21 03/10/23 History oxyCODONE-APAP 5-325MG [Percocet 1 tab PO Q6H 09/12/21 03/10/23 History 5-325 mg] Gabapentin [Neurontin] 400 mg PO TID 12/25/21 03/10/23 History Aspirin EC [Ecotrin Low Dose] 81 mg PO DAILY 05/23/22 03/10/23 History Atorvastatin Calcium [Lipitor] 40 mg PO HS 05/23/22 03/10/23 History Baclofen 10 mg PO TID 05/23/22 03/10/23 History lisinopriL [Zestril] 5 mg PO BID 05/23/22 03/10/23 History Insulin Glargine,Hum.rec.anlog 24 units SQ BID 10/20/22 03/10/23 History [Lantus Solostar Pen] Ondansetron Odt [Zofran ODT] 4 mg PO Q6H PRN 10/20/22 03/10/23 History Tamsulosin [Flomax] 0.4 mg PO PC-BRKFST 90 Days #90 cap 10/25/22 03/10/23 Rx Dulaglutide [Trulicity] 0.75 mg SQ TH 03/10/23 03/10/23 History Fluticasone Propion/Salmeterol 1 puff INHALATION RT-BID 03/10/23 03/10/23 History [Advair 250-50 Diskus] NIFEdipine XL [Procardia Xl] 30 mg PO DAILY 03/10/23 03/10/23 History Omeprazole 20 mg PO BID 03/10/23 03/10/23 History Sacubitril/Valsartan [Entresto 24 1 tab PO BID 03/10/23 03/10/23 History mg-26 mg Tablet] carvediloL [Coreg] 25 mg PO BID 03/10/23 03/10/23 History Allergies Allergy/AdvReac Type Severity Reaction Status Date / Time doxycycline Allergy Swelling Verified 03/10/23 13:51 ketorolac tromethamine Allergy Rash/Hives Verified 03/10/23 13:51 [From Toradol] morphine Allergy Rash/Hives Verified 03/10/23 13:51 metoclopramide HCl AdvReac Dystonic Verified 03/10/23 13:51 [From Reglan] Reaction prochlorperazine edisylate AdvReac Dystonic Verified 03/10/23 13:51 [From Compazine] Reaction prochlorperazine maleate AdvReac Dystonic Verified 03/10/23 13:51 [From Compazine] Reaction Physical Exam Vitals: Vital Signs Temp Pulse Pulse Resp BP Pulse Ox 03/14/23 11:34 97.8 F 96 18 130/77 97 03/14/23 11:28 80 03/14/23 11:15 80 03/14/23 08:25 84 03/14/23 08:15 80 03/14/23 08:00 98 F 86 20 145/84 97 03/14/23 04:00 97.9 F 81 19 136/74 94 L 03/14/23 00:00 97.9 F 82 19 130/77 97 03/13/23 20:59 76 03/13/23 20:50 76 03/13/23 20:00 98.2 F 87 18 130/75 96 03/13/23 18:58 89 18 03/13/23 17:17 89 18 130/80 99 03/13/23 15:40 84 03/13/23 15:31 80 Intake and Output 03/13/23 03/14/23 03/14/23 22:59 06:59 14:59 Intake Total 118 240 Balance 118 240 Intake: Oral 118 240 Other: Voiding Method Urinal Urinal Urinal # Voids 3 1 General appearance: The patient is alert, oriented, appears in no acute distress. Obese. HET: Head is normocephalic and atraumatic. Conjunctiva pink. Sclera anicteric. Neck: Supple without lymphadenopathy. Trachea midline. Heart: S1 S2. Regular rate and rhythm. Lungs: Clear to auscultation. Abdomen: Soft, nontender, nondistended with bowel sounds. No guarding or rigidity. Skin: No rashes. No jaundice. Extremities: Normal skin color and turgor. No pedal edema. Neurological: No focal deficits. Alert and oriented x3. Results CBC & Chem 7: 03/13/23 11:16 03/13/23 11:16 Labs: Abnormal Lab Results - Last 24 Hours (Table) 03/13/23 03/13/23 03/14/23 Range/Units 16:36 20:02 06:01 POC Glucose (mg/dL) 189 H 249 H 203 H (70-110) mg/dL 03/14/23 Range/Units 11:45 POC Glucose (mg/dL) 279 H (70-110) mg/dL Comments: Barium swallow: Focal indentation along the left lateral wall of the cervical esophagus at the C6 level may be due to some asymmetric peristalsis or scarring from patient's prior cervical spine surgery. No corresponding abnormal narrowing seen on the lateral view or abnormal CP muscle hypertrophy. Correlate with findings on endoscopy. Contrast-enhanced CT soft tissue neck scan can also be considered endoscopy shows no specific explanation for the patient's symptoms. Moderate esophageal dysmotility with blunted secondary stripping waves. Otherwise no specific abnormality seen. CT thoracic spine without contrast: Mild multilevel disc degeneration changes with stimulator present. No evidence for significant spinal canal or neural for minimal stenosis given the limitations of CT technique. High density circumscribed object in the esophagus could represent stuck medicine. Chest CTA: Patient is breathing through the scan. No obvious large central vein branch or saddle pulmonary embolus. Otherwise however the lobar segmental and more distal arterial branches are nondiagnostic and emboli in these locations cannot be excluded on the basis of this exam. Severe hepatic steatosis. Visualized upper abdomen. Appropriate clinical management recommended. Assessment and Plan (1) Dysphagia Narrative/Plan: 57-year-old male who presented with chest pain and shortness of breath with previous history of food bolus status post EGD and possible dilation however no records are available at this time. Patient has mentioned that he was continu ing to have some difficulty with swallowing solids especially meat such as steak and roast beef, sandwiches in which he feels as though food sometimes gets stuck. He underwent a barium swallow showing moderate esophageal dysmotility with no esophageal stricture reported. Patient apparently was recently seen in the ER 1-2 weeks ago for food bolus which resolved prior to patient needed to be transferred to tertiary facility. Currently patient has been on aspirin 81 mg daily for the last 4-5 days duration, recommend holding aspirin and patient will be scheduled for outpatient EGD next week Current Visit: Yes Status: Acute Code(s): R13.10 - DYSPHAGIA, UNSPECIFIED SNOMED Code(s): 58264597 (2) Shortness of breath Current Visit: Yes Status: Acute Code(s): R06.02 - SHORTNESS OF BREATH SNOMED Code(s): 193868085 (3) Chest pain Current Visit: Yes Status: Acute Code(s): R07.9 - CHEST PAIN, UNSPECIFIED SNOMED Code(s): 27310534 Plan: 1. Continue symptomatic and supportive care 2. Recommend finely chopped food, stay away from breads and dense meats. Take small sips of water after eating 3. Aspirin needs to be held at least 5 days prior to endoscopic evaluation 4. Plan for outpatient upper endoscopy with possible esophageal dilation next week. This was discussed with the patient. 5. Thank you for this consultation, patient is cleared from gastroenterology for discharge Dr. Crystal Arora I agree with the dictator's note, documented as a scribe by Yudith Gautam.
--- NOTE | 2023-03-14 15:22 | CT ---
EXAMINATION TYPE: CT neck chest w con CT DLP: 1619.2 mGycm, Automated exposure control for dose reduction was used. DATE OF EXAM: 03/14/2023 3:19 PM COMPARISON: 12/19/2022. CLINICAL INDICATION:Male, 57 years old with history of cervical obstruction; TECHNIQUE: Standard enhanced CT of the neck and chest. Axial sections with coronal and sagittal refo rmats were obtained. Contrast used:100 mL of Isovue 300 with IV Contrast, (none if empty) Oral contrast used: (none if empty) FINDINGS: Brain: Visualized portions are grossly unremarkable. Orbits: Unremarkable Sinuses: Grossly unremarkable. Spaces of the neck: Clear and symmetric. Musculoskeletal: Postsurgical change at C4-C5 and C5-C6. Hardware appears intact. Scattered mild oste ophyte formation and disc space narrowing. Facet and uncovertebral joint arthropathy are present. The airway is patent. Lymph nodes: Multiple nonenlarged lymph nodes are seen along both anterior chains of the neck. Vascular structures: Visualized major arteries are patent without evidence of aneurysm. Thoracic Inlet/airway: Airway is patent. The lung apices are clear. Soft tissues/Thyroid: Thyroid and remainder of the soft tissues are unremarkable. Other: none. LUNGS/ PLEURA: Streaky atelectasis in the lung bases. No evidence for focal consolidation, pneumothor ax or pleural effusion. AIRWAY: Patent and unremarkable. HEART: The heart is mildly enlarged for size. MEDIASTINUM: No gross evidence of adenopathy. The visualized portions of the esophagus are within nor mal limits. VASCULATURE: No aortic aneurysm. MUSCULOSKELETAL: No acute osseous abnormalities SOFT TISSUES/LYMPH NODES: Unremarkable. LOWER NECK: No significant findings. UPPER ABDOMEN: Diffuse low-attenuation to the liver parenchyma. IMPRESSION 1. No definite evidence for abscess or significant abnormality. 2. Postsurgical changes to the spine without evidence for hardware failure. No evidence for significa nt spinal canal or neural foraminal stenosis. 3. The esophagus appears within normal limits without evidence for obstruction. 4. Hepatic steatosis.
[2023-03-14 15:45] VITALS: BP 141/73; PULSE 96; RESP 20; TEMP 98.3
[2023-03-14 16:32] LABS: Glucose,Whole Blood 210 mg/dL (70-110)
--- NOTE | 2023-03-14 22:34 | PN ---
PROGRESS NOTE SUBJECTIVE: This is a 57-year-old white male, history of sleep apnea. He had a barium swallow that showed tertiary contractions, difficulty with his esophagus on the barium swallow. Recommended neck and chest CT, esophagus looked like, this was with normal limits without obstruction. GI doctor saw the patient with dysphagia and tertiary contractions. Possible aspiration. Hold aspirin. He is going to need outpatient EGD next week. Shortness of breath. Continue current treatment. Stay away from bread, finely chopped food, small sips of water. Outpatient endoscopy with possible dilation next week. Please see further orders. Prognosis guarded. MMODL / IJN: [id number] /
== END 2023-03-14 17:27 | disposition home or self-care (01) | DRG 420 ==
LOC: EC 09:15 → 3SCARD 13:17
PROVIDERS: ADMIT Family Medicine; ATTEND Family Medicine
PROC: 05H933Z Insertion of Infusion Device into Right Brachial Vein, Percutaneous Approach (ICD-10-PCS; principal; 2023-03-10 15:20)
DX: E11.10 Type 2 diabetes mellitus with ketoacidosis without coma (principal); G47.33 Obstructive sleep apnea (adult) (pediatric); I25.10 Atherosclerotic heart disease of native coronary artery without angina pectoris; K21.9 Gastro-esophageal reflux disease without esophagitis; N40.0 Benign prostatic hyperplasia without lower urinary tract symptoms; G89.29 Other chronic pain; J44.1 Chronic obstructive pulmonary disease with (acute) exacerbation; M54.9 Dorsalgia, unspecified; E87.1 Hypo-osmolality and hyponatremia; E86.0 Dehydration; R13.10 Dysphagia, unspecified; K57.90 Diverticulosis of intestine, part unspecified, without perforation or abscess without bleeding; T17.908A Unspecified foreign body in respiratory tract, part unspecified causing other injury, initial encounter; E11.40 Type 2 diabetes mellitus with diabetic neuropathy, unspecified; K22.4 Dyskinesia of esophagus; I10 Essential (primary) hypertension; E78.5 Hyperlipidemia, unspecified; I25.2 Old myocardial infarction; Z79.4 Long term (current) use of insulin; Z86.711 Personal history of pulmonary embolism; Z87.440 Personal history of urinary (tract) infections; Z86.14 Personal history of Methicillin resistant Staphylococcus aureus infection; Z86.718 Personal history of other venous thrombosis and embolism; Z79.899 Other long term (current) drug therapy; Z79.84 Long term (current) use of oral hypoglycemic drugs; Z79.82 Long term (current) use of aspirin; Z79.01 Long term (current) use of anticoagulants
CPT/HCPCS: 36410; 36415; 70491; 71046; 71260; 71275; 72128; 74220; 76937; 80048; 80051; 80053; 82009; 82565; 82947; 83735; 84100; 84145; 84484; 84520; 85025; 85379; 85610; 85730; 93005; 94640; 94760; 96361; 96374; 96375; 99285

== ENCOUNTER 2023-04-13 03:39 | Emergency (ER) | payer OTHER ==
--- NOTE | 2023-04-13 03:47 | ED ---
Chest Pain HPI - General Stated Complaint: Chest Pain, Difficulty Breathing - History of Present Illness Initial Comments: Cr berman is a 57-year-old male who presents to the ER today via ambulance for evaluation of chest pain and difficulty in breathing. Patient reports he woke up with chest pain and difficulty in breathing. He has a history of 2 pulmonary embolisms earlier this year he was advised that they were caused by infection and that he didn't need long-term anticoagulation. He is not currently anticoagulated. Patient denies any recent illness, any coughing. Pain began this evening, is worse with deep inspiration it makes it feel like he can't take a deep breath. No exertional chest pain no diaphoresis lightheadedness no cough. No fevers or chills. No known sick contacts. - Related Data Home Medications Medication Instructions Recorded Confirmed Insulin Lispro [humaLOG Kwikpen] See Protocol SQ ACHS 06/16/21 03/27/23 oxyCODONE-APAP 5-325MG [Percocet 1 tab PO Q6H 09/12/21 03/27/23 5-325 mg] Gabapentin [Neurontin] 400 mg PO TID 12/25/21 03/27/23 Aspirin EC [Ecotrin Low Dose] 81 mg PO DAILY 05/23/22 03/27/23 Atorvastatin Calcium [Lipitor] 40 mg PO HS 05/23/22 03/27/23 Baclofen 10 mg PO TID 05/23/22 03/27/23 Insulin Glargine,Hum.rec.anlog 36 units SQ BID 10/20/22 03/27/23 [Lantus Solostar Pen] Dulaglutide [Trulicity] 0.75 mg SQ TH 03/10/23 03/27/23 NIFEdipine XL [Procardia XL] 30 mg PO DAILY 03/10/23 03/27/23 Omeprazole 20 mg PO BID 03/10/23 03/27/23 carvediloL [Coreg] 25 mg PO BID 03/10/23 03/27/23 Previous Rx's Medication Instructions Recorded Tamsulosin [Flomax] 0.4 mg PO PC-BRKFST 90 Days #90 cap 10/25/22 Budesonide [Pulmicort] 0.5 mg INHALATION RT-BID 30 Days 03/14/23 #60 ml Ipratropium-Albuterol Nebulize 3 ml INHALATION RT-QID 30 Days 03/14/23 [Duoneb 0.5 mg-3 mg/3 ml Soln] #120 each Allergies Allergy/AdvReac Type Severity Reaction Status Date / Time doxycycline Allergy Swelling Verified 03/27/23 15:09 ketorolac tromethamine Allergy Rash/Hives Verified 03/27/23 15:09 [From Toradol] morphine Allergy Rash/Hives Verified 03/27/23 15:09 metoclopramide HCl AdvReac Dystonic Verified 03/27/23 15:09 [From Reglan] Reaction prochlorperazine edisylate AdvReac Dystonic Verified 03/27/23 15:09 [From Compazine] Reaction prochlorperazine maleate AdvReac Dystonic Verified 03/27/23 15:09 [From Compazine] Reaction Review of Systems ROS Statement: Those systems with pertinent positive or pertinent negative responses have been documented in the HPI. ROS Other: All systems not noted in ROS Statement are negative. EKG Findings - EKG Comments: EKG Findings:: EKG interpreted by me, EKG obtained due to complaint of shortness of breath EKG obtained at 3:45 AM, rate is 110 rhythm is sinus tach. QRS [address] elevations or depressions or evidence of acute ischemia or infarction. Past Medical History Past Medical History: Asthma, Coronary Artery Disease (CAD), Chest Pain / Angina, Diabetes Mellitus, GERD/Reflux, GI Bleed, Hyperlipidemia, Hypertension, Myocardial Infarction ([place]), Mitral Valve Prolapse (MVP), Pulmonary Embolus (PE), Sleep Apnea/CPAP/BIPAP Additional Past Medical History / Comment(s): Asthmatic bronchitis-chronic, IDDM type II, neuropathy bilateral feet, lower and upper GI bleeds, PUD, diverticulitis, colectomy d/t benign mass/intusseption, BPH, renal cysts, nephrolithiais, UTI with sepsis, chronic back pain 2ndary to herniated lumbar discs/sciatica, JARED does not use his Cpap, MVP, murmur, chronic dysphagia Last Myocardial Infarction Date:: 2011 History of Any Multi-Drug Resistant Organisms: C-DIFF, MRSA Date of last positivie culture/infection: 2015 MDRO Source:: left axilla Past Surgical History: Appendectomy, Back Surgery, Cholecystectomy, Heart Catheterization, Hernia Repair, Orthopedic Surgery Additional Past Surgical History / Comment(s): Lumbar decompression/fusion/laminectomy, spinal stimulator, T lift procedure, L inguinal hernia repair, multiple ESWLs/stents/double J caths, colonoscopy, 02/2020 colectomy, EGDs for food obstructions and dilations Past Anesthesia/Blood Transfusion Reactions: No Reported Reaction Past Psychological History: No Psychological Hx Reported Additional Psychological History / Comment(s): Pt resides with his mother for whom he is caregiver. Pt is indpendent. He has a cpap but does not use it. He has a glucometer. Smoking Status: Never smoker Past Alcohol Use History: None Reported Past Drug Use History: None Reported - Past Family History Father Family Medical History: Chest Pain / Angina Additional Family Medical History / Comment(s): "lung problems" Mother Family Medical History: Blood Disorder, Cancer, Chest Pain / Angina, Congestive Heart Failure (CHF), Osteoarthritis (OA), Thyroid Disorder Additional Family Medical History / Comment(s): "learning analyst cancer" blood clots General Exam - General Exam Comments Initial Comments: Physical Exam GENERAL: Patient is well-developed and well-nourished. Patient is nontoxic and well- hydrated and is in no distress. Obese HENT: Normocephalic, Atraumatic. EYES: PERRL, EOMI PULMONARY: Unlabored respirations. No audible rales rhonchi or wheezing was noted. CARDIOVASCULAR: There is a regular rate and rhythm without any murmurs gallops or rubs. ABDOMEN: Soft and nontender with normal bowel sounds. SKIN: Skin is clear with no lesions or rashes and otherwise unremarkable. : Deferred NEUROLOGIC: Patient is alert and oriented x3. Moving all extremities spontaneously MUSCULOSKELETAL: Normal extremities with adequate strength and full range of motion. No lower extremity swelling or edema. No calf tenderness. PSYCHIATRIC: Normal psychiatric evaluation. Course Vital Signs 04/13/23 04/13/23 04/13/23 03:45 04:00 05:10 Temperature 98.3 F Pulse Rate 109 H 108 H 103 H Respiratory 22 20 18 Rate Blood Pressure 175/104 156/104 178/107 O2 Sat by Pulse 95 96 96 Oximetry 04/13/23 04/13/23 06:07 07:32 Temperature 98.1 F Pulse Rate 104 H 97 Respiratory 17 18 Rate Blood Pressure 157/108 135/97 O2 Sat by Pulse 96 97 Oximetry Chest Pain MDM - MDM Was pt. sent in by a medical professional or institution (, MAGGIE, RAIL SWITCH OPERATOR, urgent care, hospital, or correction...) When possible be specific @ -No Did you speak to anyone other than the patient for history (EMS, parent, family, police, friend...)? What history was obtained from this source @ -No Did you review nursing and triage notes (agree or disagree)? Why? @ -I reviewed and agree with nursing and triage notes Were old charts reviewed (outside hosp., previous admission, EMS record, old EKG, old radiological studies, urgent care reports/EKG's, correction records)? Report findings @ -Previous hospitalizations were reviewed Differential Diagnosis (chest pain, altered mental status, abdominal pain women, abdominal pain men, vaginal bleeding, weakness, fever, dyspnea, syncope, headache, dizziness, GI bleed, back pain, seizure, CVA, palpatations, mental health, musculoskeletal)? @ -Differential Dyspnea: Coronary syndrome, arrhythmia, tamponade, asthma, COPD, pulmonary embolism, pneumonia, pneumothorax, pulmonary effusion, anaphylaxis, diabetic ketoacidosis, flailed chest, pulmonary contusion, diaphragmatic rupture, anemia, neuromuscular, this is not meant to be an all-inclusive list. EKG interpreted by me (3pts min.). @ -As above X-rays interpreted by me (1pt min.). @ -No pneumothorax CT interpreted by me (1pt min.). @ -No obvious pulmonary embolism U/S interpreted by me (1pt. min.). @ -None done What testing was considered but not performed or refused? (CT, X-rays, U/S, labs)? Why? @ -Observation for serial troponins and evaluation by cardiology - patient declined What meds were considered but not given or refused? Why? @ -None Did you discuss the management of the patient with other professionals (professionals i.e. , MAGGIE, RAIL SWITCH OPERATOR, lab, RT, psych nurse, social work nurse, hot dipper, teacher, casino surveillance officer, case supervisor)? Give summary @ -No Was smoking cessation discussed for >3mins.? @ -No Was critical care preformed (if so, how long)? @ -No Were there social determinants of health that impacted care today? How? (Ho melessness, low income, unemployed, alcoholism, drug addiction, transportation, low edu. Level, literacy, decrease access to med. care, [place] [facility], rehab)? @ -No Was there de-escalation of care discussed even if they declined (Discuss DNR or withdrawal of care, Hospice)? DNR status @ -No What co-morbidities impacted this encounter? (DM, HTN, Smoking, COPD, CAD, Cancer, CVA, ARF, Chemo, Hep., AIDS, mental health diagnosis, sleep apnea, morbid obesity)? @ -None Was patient admitted / discharged? Hospital course, mention meds given and route, prescriptions, significant lab abnormalities, going to OR and other pertinent info. @ -Discharged Patient was seen and evaluated history is obtained from the patient patient had pleuritic chest pain and shortness of breath, EKG was nonischemic labs were ordered PE study was completed. Labs are relatively unremarkable, troponin was negative. I did offer admission to the hospital however patient felt reassured that his workup was negative for pulmonary embolism and COVID he is comfortable for discharge home. Undiagnosed new problem with uncertain prognosis? @ -No Drug Therapy requiring intensive monitoring for toxicity (Heparin, Nitro, Insulin, Cardizem)? @ -No Were any procedures done? @ -No Diagnosis/symptom? @ -Noncardiac chest pain Acute, or Chronic, or Acute on Chronic? @ -default Uncomplicated (without systemic symptoms) or Complicated (systemic symptoms)? @ -default Side effects of treatment? @ -No Exacerbation, Progression, or Severe Exacerbation? @ -No Poses a threat to life or bodily function? How? (Chest pain, [place], [place], pneumonia, PE, COPD, DKA, ARF, appy, cholecystitis, CVA, Diverticulitis, Homicidal, Suicidal, threat to staff... and all critical care pts) @ -No Disposition Clinical Impression: Shortness of breath, History of pulmonary embolism Disposition: HOME SELF-CARE Condition: Stable Is patient prescribed a controlled substance at d/c from ED?: No Referrals: González Muñiz MD [Primary Care Provider] - 1-2 days
[2023-04-13] MEDS ORDERED: HYDROmorphone 0.5 MG/0.5 ML SYRINGE IVP STA (04:44)
[2023-04-13] MEDS ORDERED: ASPIRIN 81 MG PO STA (04:44)
[2023-04-13 04:48] LABS: Glucose,Whole Blood 250 mg/dL (70-110)
[2023-04-13 05:33] LABS: VBG PH 7.44 (7.31-7.41)
[2023-04-13 05:34] LABS: Basophils % (A) 0 %; Eosinophils # (A) 0.2 k/uL (0-0.7); Eosinophils % (A) 4 %; Lymphocytes # (A) 1.4 k/uL (1.0-4.8); Lymphocytes % (A) 26 %; MCH 29.9 pg (25.0-35.0); MCHC 34.8 g/dL (31.0-37.0); Mean Platelet Volume 7.1; Monocytes # (A) 0.3 k/uL (0-1.0); Monocytes % (A) 5 %; Neutrophils # (A) 3.4 k/uL (1.3-7.7); Neutrophils % (A) 64 %; Platelet Count 254 k/uL (150-450); WBC 5.3 k/uL (3.8-10.6)
[2023-04-13 05:48] LABS: INR 0.9 (<1.2); Partial Thromboplastin Time 21.3 sec (22.0-30.0); Prothrombin Time 9.7 sec (9.0-12.0)
[2023-04-13 05:58] LABS: ALT 79 U/L (4-49); AST 34 U/L (17-59); African American GFR (CKD) >90 (>60 ml/min/1.73 sqM); Albumin 4.1 g/dL (3.5-5.0); Alkaline Phosphatase 112 U/L (38-126); Anion Gap 13 mmol/L; Blood Urea Nitrogen 11 mg/dL (9-20); Carbon Dioxide 22 mmol/L (22-30); Chloride 100 mmol/L (98-107); Glucose 271 mg/dL (74-99); Lipase 84 U/L (23-300); Magnesium 1.9 mg/dL (1.6-2.3); Non-African American GFR(CKD) >90 (>60 ml/min/1.73 sqM); Potassium 4.5 mmol/L (3.5-5.1); Sodium 135 mmol/L (137-145); Total Bilirubin 0.6 mg/dL (0.2-1.3); Total Protein 6.9 g/dL (6.3-8.2)
[2023-04-13 06:07] LABS: NT-Pro-B-Type Natriuretic Pept 30 pg/mL
--- NOTE | 2023-04-13 06:17 | XR ---
EXAMINATION TYPE: XR chest 2V DATE OF EXAM: 04/13/2023 5:11 AM CLINICAL INDICATION:Male, 57 years old with history of Chest Pain; [facility] COMPARISON: Chest radiographs from 03/10/2023 TECHNIQUE: XR chest 2V Frontal and lateral views of the chest. FINDINGS: Lungs/Pleura: There is no evidence of pleural effusion, focal consolidation, or pneumothorax. Pulmonary vascularity: Unremarkable. Heart/mediastinum: Cardiomediastinal silhouette is unremarkable. Musculoskeletal: No acute osseous pathology. Other findings: Nerve stimulator projects over the spine. IMPRESSION: No acute cardiopulmonary disease/process.
[2023-04-13] MEDS ORDERED: HYDROmorphone 1 MG/ML 1 ML SYRINGE IVP STA (06:39)
--- NOTE | 2023-04-13 07:25 | CT ---
EXAMINATION TYPE: CT chest angio for PE DATE OF EXAM: 04/13/2023 COMPARISON: 03/10/2023 HISTORY: 57-year-old male shortness of breath, dyspnea, history of PE TECHNIQUE: Contiguous axial scanning of the chest performed with IV Contrast, patient injected with 1 00 mL of Isovue 370. Coronal/sagittal MIP reconstructions performed. CT DLP: 797 mGycm Automated exposure control for dose reduction was used. FINDINGS: The heart is normal size without pericardial effusion. No flattening of the interventricular septum r eflux of contrast into the hepatic veins. Aorta normal caliber with conventional arch vessel branching anatomy. There is optimal opacification of the pulmonary canal system but no definite pulmonary embolus seen. Mildly enlarged right hilar lymph node measuring 1.5 cm not clearly seen previously. Otherwise, no th oracic lymphadenopathy by CT size criteria. No consolidation or pleural effusion. Visualized upper abdomen shows low-attenuation of the liver parenchyma and partially visualized cyst measuring at least 3.7 cm anterior right kidney. Bones: Spinal stimulator array center lung the lower thoracic spinal canal. DISH mid and lower thorac ic spine. IMPRESSION: 1. SUBOPTIMAL CONTRAST BOLUS. HOWEVER, NO DEFINITE PULMONARY EMBOLUS. 2. A MILDLY ENLARGED RIGHT HILAR LYMPH NODE MEASURING 1.5 CM PROBABLY REACTIVE/POST INFLAMMATORY. REC OMMEND PRECAUTIONARY 6 MONTH FOLLOW-UP CT TO ENSURE STABILITY/RESOLUTION. 3. HEPATIC STEATOSIS IN THE VISUALIZED UPPER ABDOMEN. APPROPRIATE CLINICAL MANAGEMENT ADVISED.
[2023-04-13 07:39] VITALS: BP 135/97; PULSE 97; RESP 18; TEMP 98.1
== END 2023-04-13 09:09 | disposition home or self-care (01) ==
LOC: EC 03:39
DX: R06.02 Shortness of breath (principal); R07.89 Other chest pain; E11.40 Type 2 diabetes mellitus with diabetic neuropathy, unspecified; I10 Essential (primary) hypertension; I25.10 Atherosclerotic heart disease of native coronary artery without angina pectoris; E78.5 Hyperlipidemia, unspecified; I25.2 Old myocardial infarction; J45.909 Unspecified asthma, uncomplicated; K21.9 Gastro-esophageal reflux disease without esophagitis; Z20.822 Contact with and (suspected) exposure to COVID-19; Z79.4 Long term (current) use of insulin; Z79.85 Long-term (current) use of injectable non-insulin antidiabetic drugs; Z79.82 Long term (current) use of aspirin; Z79.899 Other long term (current) drug therapy; Z88.8 Allergy status to other drugs, medicaments and biological substances; Z86.711 Personal history of pulmonary embolism; Z90.49 Acquired absence of other specified parts of digestive tract
CPT/HCPCS: 99285 ×2; 96374 ×2; 96376 ×2; 36415; 93005; 83880; 80053; 82803; 83605; 83690; 83735; 84484; 85025; 85610; 85730; 87636; 71046; 71275; J1170 ×2; Q9967

== ENCOUNTER 2023-05-09 12:59 | Observation (INO) | payer OTHER ==
[2023-05-09 14:39] LABS: HCT 46.2 % (39.0-53.0); HGB 15.9 gm/dL (13.0-17.5); MCH 29.7 pg (25.0-35.0); MCHC 34.4 g/dL (31.0-37.0); MCV 86.4 fL (80.0-100.0); Mean Platelet Volume 8.7; RBC 5.34 m/uL (4.30-5.90); RDW 13.5 % (11.5-15.5); WBC 7.1 k/uL (3.8-10.6)
--- NOTE | 2023-05-09 14:49 | ED ---
Back Pain HPI - General Source: patient Limitations: no limitations <Yin Gusman - Last Filed: 05/09/23 14:47> <Carroll Dawson - Last Filed: 05/09/23 16:50> - General Chief Complaint: Back Pain/Injury Stated Complaint: back pain Time Seen by Provider: 05/09/23 13:10 - History of Present Illness Initial Comments: 57-year-old male with past history of chronic back pain presents to the emergency department reporting urinary retention or rectal incontinence. States that he has had issues with this in the past however his symptoms have worsened over the past 2 days. States he's had 3 episodes of rectal incontinence and has been unable to void. He denies any new injuries. Admits to right leg pain. No fevers. He was hospitalized 2 weeks ago for similar complaint. Was told to follow-up with his surgeon which she has not done. Continues to take his medications as directed and states that nothing is getting better. (Yin Gusman) - Related Data Home Medications Medication Instructions Recorded Confirmed Insulin Lispro [humaLOG Kwikpen] See Protocol SQ ACHS 06/16/21 04/19/23 oxyCODONE-APAP 5-325MG [Percocet 1 tab PO Q6H 09/12/21 04/19/23 5-325 mg] Gabapentin [Neurontin] 400 mg PO TID 12/25/21 04/19/23 Aspirin EC [Ecotrin Low Dose] 81 mg PO DAILY 05/23/22 04/19/23 Atorvastatin Calcium [Lipitor] 40 mg PO HS 05/23/22 04/19/23 Baclofen 10 mg PO TID 05/23/22 04/19/23 Insulin Glargine,Hum.rec.anlog 28 units SQ BID 10/20/22 04/19/23 [Lantus Solostar Pen] Dulaglutide [Trulicity] 0.75 mg SQ TH 03/10/23 04/19/23 NIFEdipine XL [Procardia XL] 30 mg PO DAILY 03/10/23 04/19/23 Omeprazole 20 mg PO BID 03/10/23 04/19/23 carvediloL [Coreg] 25 mg PO BID 03/10/23 04/19/23 Previous Rx's Medication Instructions Recorded Tamsulosin [Flomax] 0.4 mg PO PC-BRKFST 90 Days #90 cap 10/25/22 Budesonide [Pulmicort] 0.5 mg INHALATION RT-BID 30 Days 03/14/23 #60 ml Ipratropium-Albuterol Nebulize 3 ml INHALATION RT-QID 30 Days 03/14/23 [Duoneb 0.5 mg-3 mg/3 ml Soln] #120 each Allergies Allergy/AdvReac Type Severity Reaction Status Date / Time doxycycline Allergy Swelling Verified 05/09/23 13:08 ketorolac tromethamine Allergy Rash/Hives Verified 05/09/23 13:08 [From Toradol] morphine Allergy Rash/Hives Verified 05/09/23 13:08 metoclopramide HCl AdvReac Dystonic Verified 05/09/23 13:08 [From Reglan] Reaction prochlorperazine edisylate AdvReac Dystonic Verified 05/09/23 13:08 [From Compazine] Reaction prochlorperazine maleate AdvReac Dystonic Verified 05/09/23 13:08 [From Compazine] Reaction Review of Systems ROS Other: All systems not noted in ROS Statement are negative. <Yin Gusman - Last Filed: 05/09/23 14:47> ROS Other: All systems not noted in ROS Statement are negative. <Carroll Dawson - Last Filed: 05/09/23 16:50> ROS Statement: Those systems with pertinent positive or pertinent negative responses have been documented in the HPI. Past Medical History Past Medical History: Asthma, Coronary Artery Disease (CAD), Chest Pain / Angina, Diabetes Mellitus, GERD/Reflux, GI Bleed, Hyperlipidemia, Hypertension, Myocardial Infarction (CO), Mitral Valve Prolapse (MVP), Pulmonary Embolus (PE), Sleep Apnea/CPAP/BIPAP Additional Past Medical History / Comment(s): Asthmatic bronchitis-chronic, IDDM type II, neuropathy bilateral feet, lower and upper GI bleeds, PUD, diverticulitis, colectomy d/t benign mass/intusseption, BPH, renal cysts, nephrolithiais, UTI with sepsis, chronic back pain 2ndary to herniated lumbar discs/sciatica, JARED does not use his Cpap, MVP, murmur, chronic dysphagia Last Myocardial Infarction Date:: 2011 History of Any Multi-Drug Resistant Organisms: C-DIFF, MRSA Date of last positivie culture/infection: 2015 MDRO Source:: left axilla Past Surgical History: Appendectomy, Back Surgery, Cholecystectomy, Heart Catheterization, Hernia Repair, Orthopedic Surgery Additional Past Surgical History / Comment(s): Lumbar decompression/fusion/laminectomy, spinal stimulator, T lift procedure, L inguinal hernia repair, multiple ESWLs/stents/double J caths, colonoscopy, 02/2020 colectomy, EGDs for food obstructions and dilations Past Anesthesia/Blood Transfusion Reactions: No Reported Reaction Past Psychological History: No Psychological Hx Reported Smoking Status: Never smoker Past Alcohol Use History: None Reported Past Drug Use History: None Reported - Past Family History Father Family Medical History: Chest Pain / Angina Additional Family Medical History / Comment(s): "lung problems" Mother Family Medical History: Blood Disorder, Cancer, Chest Pain / Angina, Congestive Heart Failure (CHF), Osteoarthritis (OA), Thyroid Disorder Additional Family Medical History / Comment(s): "supervisor gate services cancer" blood clots <Yin Gusman - Last Filed: 05/09/23 14:47> General Exam Limitations: no limitations General appearance: alert, in no apparent distress Head exam: Present: atraumatic, normocephalic, normal inspection Eye exam: Present: normal appearance, PERRL, EOMI. Absent: scleral icterus, conjunctival injection, periorbital swelling ENT exam: Present: normal exam, mucous membranes moist Neck exam: Present: normal inspection. Absent: tenderness, meningismus, lymphadenopathy Respiratory exam: Present: normal lung sounds bilaterally. Absent: respiratory distress, wheezes, rales, rhonchi, stridor Cardiovascular Exam: Present: regular rate, normal rhythm, normal heart sounds. Absent: systolic murmur, diastolic murmur, rubs, gallop, clicks GI/Abdominal exam: Present: soft, normal bowel sounds. Absent: distended, tenderness, guarding, rebound, rigid Rectal exam: Present: decreased rectal tone Extremities exam: Present: full ROM, normal capillary refill, other (Decreased strength to the right lower extremity). Absent: tenderness, pedal edema, joint swelling, calf tenderness Back exam: Present: normal inspection Neurological exam: Present: alert, oriented X3, CN II-XII intact Psychiatric exam: Present: normal affect, normal mood Skin exam: Present: warm, dry, intact, normal color. Absent: rash <Yin Gusman - Last Filed: 05/09/23 14:47> Course Vital Signs 05/09/23 13:06 Temperature 98.1 F Pulse Rate 118 H Respiratory 22 Rate Blood Pressure 138/84 O2 Sat by Pulse 99 Oximetry Medical Decision Making <Yin Gusman - Last Filed: 05/09/23 14:47> - Lab Data Result diagrams: 05/09/23 14:17 05/09/23 14:17 <SamirCarroll - Last Filed: 05/09/23 16:50> - Medical Decision Making Was pt. sent in by a medical professional or institution (, PA, ASPHALT ROLLER OPERATOR, urgent care, hospital, or snf...) When possible be specific @ -[No] Did you speak to anyone other than the patient for history (EMS, parent, family, police, friend...)? What history was obtained from this source @ -[No] Did you review nursing and triage notes (agree or disagree)? Why? @ -[I reviewed and agree with nursing and triage notes] Were old charts reviewed (outside hosp., previous admission, EMS record, old EKG, old radiological studies, urgent care reports/EKG's, snf records)? Report findings @ -[No old charts were reviewed] Differential Diagnosis (chest pain, altered mental status, abdominal pain women, abdominal pain men, vaginal bleeding, weakness, fever, dyspnea, syncope, headache, dizziness, GI bleed, back pain, seizure, CVA, palpatations, mental health, musculoskeletal)? @ -[not applicable] EKG interpreted by me (3pts min.). @ -[As above] X-rays interpreted by me (1pt min.). @ -[None done] CT interpreted by me (1pt min.). @ -[None done] U/S interpreted by me (1pt. min.). @ -[None done] What testing was considered but not performed or refused? (CT, X-rays, U/S, labs)? Why? @ -[None] What meds were considered but not given or refused? Why? @ -[None] Did you discuss the management of the patient with other professionals (professionals i.e. , PA, ASPHALT ROLLER OPERATOR, lab, RT, psych nurse, director of social work, slab depiler operator, teacher, first aid officer, telephonic case manager)? Give summary @ -[No] Was smoking cessation discussed for >3mins.? @ -[No] Was critical care preformed (if so, how long)? @ -[No] Were there social determinants of health that impacted care today? How? (Homelessness, low income, unemployed, alcoholism, drug addiction, transportation, low edu. Level, literacy, decrease access to med. care, half-way, rehab)? @ -[No] Was there de-escalation of care discussed even if they declined (Discuss DNR or withdrawal of care, Hospice)? DNR status @ -[No] What co-morbidities impacted this encounter? (DM, HTN, Smoking, COPD, CAD, Cancer, CVA, ARF, Chemo, Hep., AIDS, mental health diagnosis, sleep apnea, morbid obesity)? @ -[None] Was patient admitted / discharged? Hospital course, mention meds given and route, prescriptions, significant lab abnormalities, going to OR and other perti nent info. @ -Upon arrival patient is placed in room 31. History and physical exam is performed. Due to worsening symptoms laboratory studies and CT are obtained. Patient will be signed out to Dr. Dawson pending results Undiagnosed new problem with uncertain prognosis? @ -[No] Drug Therapy requiring intensive monitoring for toxicity (Heparin, Nitro, Insulin, Cardizem)? @ -[No] Were any procedures done? @ -[No] Diagnosis/symptom? @ -[default] Acute, or Chronic, or Acute on Chronic? @ -[default] Uncomplicated (without systemic symptoms) or Complicated (systemic symptoms)? @ -[default] Side effects of treatment? @ -[No] Exacerbation, Progression, or Severe Exacerbation? @ -[No] Poses a threat to life or bodily function? How? (Chest pain, [place], CO, pneumonia, PE, COPD, DKA, ARF, appy, cholecystitis, CVA, Diverticulitis, Homicidal, Suicidal, threat to staff... and all critical care pts) @ -[No] (Yin Gusman) Patient reevaluated and resting comfortably in bed. Patient presents with back pain. Patient does complain of some urinary retention and rectal incontinence. Patient states he has had similar symptoms 5 times. Sleep. Patient states pain has increased over the past several days. Patient does have chronic right leg nerve damage. Patient states there is some increased weakness and decreased sensation more than chronic. Patient does have some decreased reported sensation light-touch the leg. Patient does have some weakness with plantar flexion and extension of the right foot. Case was discussed in detail with Dr. Muñiz who is very familiar with this patient. He states it is okay to admit this patient here with consult with Dr. Short. Patient will be admitted. Admission orders written. Diagnosis: Lower back pain. Acute on chronic. (Carroll Dawson) - Lab Data Lab Results 05/09/23 05/09/23 Range/Units 14:17 14:17 WBC 7.1 (3.8-10.6) k/uL RBC 5.34 (4.30-5.90) m/uL Hgb 15.9 (13.0-17.5) gm/dL Hct 46.2 (39.0-53.0) % MCV 86.4 (80.0-100.0) fL MCH 29.7 (25.0-35.0) pg MCHC 34.4 (31.0-37.0) g/dL RDW 13.5 (11.5-15.5) % Plt Count 255 (150-450) k/uL MPV 8.7 Neutrophils % (Manual) 60 % Lymphocytes % (Manual) 35 % Monocytes % (Manual) 5 % Neutrophils # (Manual) 4.26 (1.3-7.7) k/uL Lymphocytes # (Manual) 2.49 (1.0-4.8) k/uL Monocytes # (Manual) 0.36 (0-1.0) k/uL Nucleated RBCs 0 (0-0) /100 WBC Manual Slide Review Performed RBC Morphology Normal Sodium 136 L (137-145) mmol/L Potassium 4.1 (3.5-5.1) mmol/L Chloride 106 (98-107) mmol/L Carbon Dioxide 17 L (22-30) mmol/L Anion Gap 13 mmol/L BUN 11 (9-20) mg/dL Creatinine 0.36 L (0.66-1.25) mg/dL Est GFR (CKD-EPI)AfAm >90 (>60 ml/min/1.73 sqM) Est GFR (CKD-EPI)NonAf >90 (>60 ml/min/1.73 sqM) Glucose 272 H (74-99) mg/dL Calcium 9.1 (8.4-10.2) mg/dL Total Bilirubin 0.7 (0.2-1.3) mg/dL AST 25 (17-59) U/L ALT 31 (4-49) U/L Alkaline Phosphatase 129 H (38-126) U/L Total Protein 7.0 (6.3-8.2) g/dL Albumin 4.0 (3.5-5.0) g/dL Disposition <Yin Gusman - Last Filed: 05/09/23 14:47> Is patient prescribed a controlled substance at d/c from ED?: No Time of Disposition: 16:50 <Carroll Dawson - Last Filed: 05/09/23 16:50> Clinical Impression: Low back pain Disposition: ADMITTED IP TO THIS HOSP Referrals: González Muñiz MD [Primary Care Provider] - 1-2 days
[2023-05-09 15:00] LABS: ALT 31 U/L (4-49); AST 25 U/L (17-59); African American GFR (CKD) >90 (>60 ml/min/1.73 sqM); Alkaline Phosphatase 129 U/L (38-126); Anion Gap 13 mmol/L; Blood Urea Nitrogen 11 mg/dL (9-20); Calcium 9.1 mg/dL (8.4-10.2); Carbon Dioxide 17 mmol/L (22-30); Chloride 106 mmol/L (98-107); Glucose 272 mg/dL (74-99); Non-African American GFR(CKD) >90 (>60 ml/min/1.73 sqM); Potassium 4.1 mmol/L (3.5-5.1); Sodium 136 mmol/L (137-145); Total Bilirubin 0.7 mg/dL (0.2-1.3)
--- NOTE | 2023-05-09 15:28 | CT ---
EXAMINATION TYPE: CT thor lumbar spine wo con DATE OF EXAM: 05/09/2023 COMPARISON: 04/19/2023 HISTORY: 57-year-old male Worsening retention, rectal incontinence TECHNIQUE: Contiguous axial scanning of the thoracic and lumbar spine without IV contrast. Coronal an d sagittal reconstructions performed. CT DLP: 2542.4 mGycm Automated exposure control for dose reduction was used. FINDINGS: THORACIC SPINE: Intervertebral disc prosthesis noted at the C5-C6 level. There is some DISH within the mid thoracic spine. Vertebral body heights are preserved and alignment is maintained. Spinal stimulator array centered along the lower thoracic spinal canal with leads entering via the T1 1-T12 interlaminar space. Some facet arthropathy up right lower thoracic spine. This results in moderate neuroforaminal stenosi s on the right at T1-T2 and on the left at T4-T5 and T10-T11. Incidental underlying hepatic steatosis. Cholecystectomy clips. 3.8 cm right renal cortical cyst. LUMBAR SPINE: Post surgical change of L5 left laminectomy. Posterior interbody lumbar fusion extending from L3 thro ugh S1 levels. By CT, no evident canal compromise is appreciated though the surgical levels are limited by metal art ifact. Vertebral body heights are preserved and alignment is maintained. On the left, there is mild neuroforaminal stenosis at L3-L4 and L5-S1. On the right, there is more moderate neural foraminal stenosis from L3 through S1 levels. Prominent distention of the urinary bladder. IMPRESSION: THORACIC SPINE: 1. DISH MID THORACIC SPINE. SOME MILD SCATTERED FACET ARTHROPATHY. NO VERTEBRAL COMPRESSION COLLAPSE OR MALALIGNMENT. SPINAL STIMULATOR ARRAY IS UNCHANGED. No evidence of compromise by CT. Lumbar spine: 2. Status post L3-S1 posterior and interbody fusion with L5 laminectomies. 3. No vertebral compression collapse or malalignment. 4. Moderate right-sided neuroforaminal stenosis L3-S1 levels. 5. No obvious canal compromise by CT. The surgical levels are limited by prominent metal artifact. 6. Prominent distention of the urinary bladder. Correlate to exclude urinary retention.
[2023-05-09 16:05] LABS: Lymphocytes # (M) 2.49 k/uL (1.0-4.8); Monocytes # (M) 0.36 k/uL (0-1.0); Neutrophils # (M) 4.26 k/uL (1.3-7.7); Neutrophils % (M) 60 %; Nucleated Red Blood Cells 0 /100 WBC (0-0); Total Cells Counted 100
[2023-05-09 16:06] LABS: RBC Morphology Normal
[2023-05-09 16:07] LABS: Platelet Count 255 k/uL (150-450)
[2023-05-09] MEDS ORDERED: HYDROmorphone 0.5 MG/0.5 ML SYRINGE IVP PRN (16:52)
[2023-05-09] MEDS ORDERED: NALOXONE 0.4 MG/ML 1 ML VIAL IV PRN (16:52)
[2023-05-09] MEDS ORDERED: ACETAMINOPHEN TAB 325 MG TAB PO PRN (16:52)
[2023-05-09] MEDS: DEXAMETHASONE SOD PHOSPHATE 4 MG/ML 1 ML VIAL IVP SCH (20:47)
[2023-05-09 21:08] LABS: Glucose,Whole Blood 226 mg/dL (70-110)
[2023-05-09] MEDS: HYDROmorphone 1 MG/ML 1 ML SYRINGE IVP PRN (23:47)
[2023-05-10] MEDS: DEXAMETHASONE SOD PHOSPHATE 4 MG/ML 1 ML VIAL IVP SCH ×5 (02:41→23:58)
[2023-05-10] MEDS: HYDROmorphone 1 MG/ML 1 ML SYRINGE IVP PRN ×7 (03:32→23:44)
[2023-05-10] MEDS: INSULIN DETEMIR (LEVEMIR) 100 UNIT/ML SYR SQ SCH ×2 (07:06→21:16)
[2023-05-10] MEDS: TAMSULOSIN 0.4 MG CAP.ER.24H PO SCH (08:28)
[2023-05-10] MEDS: carvediloL 12.5 MG TAB PO SCH ×2 (08:28→21:15)
[2023-05-10] MEDS: NIFEdipine XL 30 MG TAB.ER.24 PO SCH (08:28)
[2023-05-10] MEDS: BACLOFEN 10 MG TAB PO SCH ×3 (08:28→21:16)
[2023-05-10] MEDS: GABAPENTIN 400 MG CAP PO SCH ×3 (08:28→21:15)
[2023-05-10] MEDS: PANTOPRAZOLE 40 MG TABLET PO SCH (08:28)
[2023-05-10] MEDS: IPRATROPIUM-ALBUTEROL 3 ML NEB INHALATION SCH ×4 (08:36→18:36)
[2023-05-10] MEDS: BUDESONIDE 0.5 MG/2 ML NEBU INHALATION SCH ×2 (08:36→18:36)
[2023-05-10] MEDS: ASPIRIN 81 MG PO SCH (09:42)
[2023-05-10] MEDS: oxyCODONE-APAP 5-325MG 1 EACH TAB PO PRN ×2 (11:38→18:34)
--- NOTE | 2023-05-10 11:49 | P.HPIM ---
History of Present Illness H&P Date: 05/10/23 Chief Complaint: Back pain with radiating tingling sensation in the right leg 57-year-old morbidly obese male with diabetes mellitus presented emergency department with 2 day history of the shooting pain in the right lower extremity along with numbness intermittent tingling sensation patient has a history of the spinal stenosis with intermittent frequent exacerbation patient had a surgery done at [facility] 5 years ago and has been happening intermittent prolapse but that patient has problem with urinary retention bowel incontinence came into the hospital for further evaluation patient was attempted to transferred to [facility] has been unsuccessful due to lack of availability of bed and accepting physician. Patient has been seen by Dr. Short in the past and he is on consult, other active medical problems includes, congestive heart failure, BPH, GERD, COPD, insulin-requiring diabetes mellitus, obstructive sleep apnea on CPAP. Post admission has been started on Decadron to reduce inflammation and pain medicine and supportive care, thoracic lumbar computed tomography scan shows mid dish Murillo scattered fisted arthropathy and vertebral decompression and misalignment spinal stimulator unchanged posterior L3 to S1 posterior interbody fusion with L5 laminectomy no vertebral compression on misalignment seen mild right-sided neural foraminal stenosis L3 to L1, distended bladder Review of Systems All systems: negative Past Medical History Past Medical History: Asthma, Coronary Artery Disease (CAD), Chest Pain / Angina, Diabetes Mellitus, GERD/Reflux, GI Bleed, Hyperlipidemia, Hypertension, Myocardial Infarction ([place]), Mitral Valve Prolapse (MVP), Pulmonary Embolus (PE), Sleep Apnea/CPAP/BIPAP Additional Past Medical History / Comment(s): Asthmatic bronchitis-chronic, IDDM type II, neuropathy bilateral feet, lower and upper GI bleeds, PUD, diverticulitis, colectomy d/t benign mass/intusseption, BPH, renal cysts, ne phrolithiais, UTI with sepsis, chronic back pain 2ndary to herniated lumbar discs/sciatica, JARED does not use his Cpap, MVP, murmur, chronic dysphagia Last Myocardial Infarction Date:: 2011 History of Any Multi-Drug Resistant Organisms: C-DIFF, MRSA Date of last positivie culture/infection: 2015 MDRO Source:: left axilla Past Surgical History: Appendectomy, Back Surgery, Cholecystectomy, Heart Catheterization, Hernia Repair, Orthopedic Surgery Additional Past Surgical History / Comment(s): Lumbar decompression/fusion/laminectomy, spinal stimulator, T lift procedure, L inguinal hernia repair, multiple ESWLs/stents/double J caths, colonoscopy, colectomy, EGDs for food obstructions and dilations Past Anesthesia/Blood Transfusion Reactions: No Reported Reaction Past Psychological History: No Psychological Hx Reported Additional Psychological History / Comment(s): Pt resides with his mother for whom he is caregiver. Pt is indpendent. He has a cpap but does not use it. He has a glucometer. Smoking Status: Never smoker Past Alcohol Use History: None Reported Past Drug Use History: None Reported - Past Family History Father Family Medical History: Chest Pain / Angina Additional Family Medical History / Comment(s): "lung problems" Mother Family Medical History: Blood Disorder, Cancer, Chest Pain / Angina, Congestive Heart Failure (CHF), Osteoarthritis (OA), Thyroid Disorder Additional Family Medical History / Comment(s): "expanded function dental assistant cancer" blood clots Medications and Allergies Home Medications Medication Instructions Recorded Confirmed Type Insulin Lispro [humaLOG Kwikpen] See Protocol SQ ACHS 06/16/21 05/09/23 History oxyCODONE-APAP 5-325MG [Percocet 1 tab PO Q6H 09/12/21 05/09/23 History 5-325 mg] Gabapentin [Neurontin] 400 mg PO TID 12/25/21 05/09/23 History Aspirin EC [Ecotrin Low Dose] 81 mg PO DAILY 05/23/22 05/09/23 History Atorvastatin Calcium [Lipitor] 40 mg PO HS 05/23/22 05/09/23 History Baclofen 10 mg PO TID 05/23/22 05/09/23 History Insulin Glargine,Hum.rec.anlog 28 units SQ BID 10/20/22 05/09/23 History [Lantus Solostar Pen] Tamsulosin [Flomax] 0.4 mg PO PC-BRKFST 90 Days #90 cap 10/25/22 05/09/23 Rx Dulaglutide [Trulicity] 0.75 mg SQ TH 03/10/23 05/09/23 History NIFEdipine XL [Procardia XL] 30 mg PO DAILY 03/10/23 05/09/23 History Omeprazole 20 mg PO BID 03/10/23 05/09/23 History carvediloL [Coreg] 25 mg PO BID 03/10/23 05/09/23 History Budesonide [Pulmicort] 0.5 mg INHALATION RT-BID 30 Days 03/14/23 05/09/23 Rx #60 ml Ipratropium-Albuterol Nebulize 3 ml INHALATION RT-QID 30 Days 03/14/23 05/09/23 Rx [Duoneb 0.5 mg-3 mg/3 ml Soln] #120 each Allergies Allergy/AdvReac Type Severity Reaction Status Date / Time doxycycline Allergy Swelling Verified 05/09/23 18:30 ketorolac tromethamine Allergy Rash/Hives Verified 05/09/23 18:30 [From Toradol] morphine Allergy Rash/Hives Verified 05/09/23 18:30 metoclopramide HCl AdvReac Dystonic Verified 05/09/23 18:30 [From Reglan] Reaction prochlorperazine edisylate AdvReac Dystonic Verified 05/09/23 18:30 [From Compazine] Reaction prochlorperazine maleate AdvReac Dystonic Verified 05/09/23 18:30 [From Compazine] Reaction Physical Exam Vitals: Vital Signs Temp Pulse Pulse Resp BP BP Pulse Ox 05/10/23 07:00 97.7 F 113 H 16 180/107 97 05/10/23 04:00 112 H 18 152/85 98 05/10/23 02:44 102 H 18 155/92 94 L 05/09/23 23:50 109 H 18 149/90 93 L 05/09/23 23:10 111 H 18 148/87 94 L 05/09/23 20:46 111 H 18 139/94 96 05/09/23 13:06 98.1 F 118 H 22 138/84 99 Intake and Output 05/09/23 05/10/23 05/10/23 22:59 06:59 14:59 Output Total 2500 Balance -2500 Output: Urine 2500 Other: Voiding Method Indwelling Catheter Weight 122.47 kg - Constitutional General appearance: average body habitus, cooperative, disheveled - EENT Eyes: EOMI, PERRLA ENT: normal oropharynx Ears: bilateral: normal - Neck Carotids: bilateral: upstroke normal Thyroid: bilateral: normal size - Respiratory Respiratory: bilateral: CTA - Cardiovascular Rhythm: regular Heart sounds: normal: S1, S2 - Gastrointestinal General gastrointestinal: normal bowel sounds, soft - Integumentary Integumentary: normal turgor - Neurologic Neurologic: CNII-XII intact - Musculoskeletal Musculoskeletal: gait normal, generalized weakness, strength equal bilaterally - Psychiatric Psychiatric: A&O x's 3, appropriate affect, intact judgment & insight Results CBC & Chem 7: 05/09/23 14:17 05/09/23 14:17 Labs: Abnormal Lab Results - Last 24 Hours (Table) 05/09/23 05/09/23 Range/Units 14:17 21:07 Sodium 136 L (137-145) mmol/L Carbon Dioxide 17 L (22-30) mmol/L Creatinine 0.36 L (0.66-1.25) mg/dL Glucose 272 H (74-99) mg/dL POC Glucose (mg/dL) 226 H (70-110) mg/dL Alkaline Phosphatase 129 H (38-126) U/L Thrombosis Risk Factor Assmnt - Choose All That Apply Any of the Below Risk Factors Present?: Yes Each Factor Represents 1 point: Age 41-60 years Other Risk Factors: No Thrombosis Risk Factor Assessment Total Risk Factor Score: 1 Thrombosis Risk Factor Assessment Level: Low Risk Assessment and Plan Assessment: Back pain related to right-sided L3 S1 foraminotomy stenosis Neurogenic bladder Type 2 diabetes mellitus insulin-dependent Congestive heart failure chronic diastolic heart failure Sleep disorder breathing and sleep apnea Hypertension hypertensive cardiovascular disease Morbid obesity Dyslipidemia GERD BPH Plan: Consult spine surgery, Decadron to reduce inflammation, pain control with o xycodone Continue short and long-acting insulin and oral hypoglycemic agent, monitor Accu-Cheks and sugar closely Continue home medications for dyslipidemia with high intensity statins, Coreg For peripheral neuropathy continue Neurontin monitor closely Continue on Prozac for GERD Bronchodilators as needed Further workup and evaluation pending as per clinical response of the patient Time with Patient: Greater than 30
[2023-05-10 12:38] LABS: Glucose,Whole Blood 357 mg/dL (70-110)
[2023-05-10] MEDS: INSULIN ASPART (NovoLOG) 100 UNIT/ML VIAL SQ SCH ×3 (13:25→21:16)
--- NOTE | 2023-05-10 16:53 | P.CNOR ---
History of Present Illness - [facility] Consult date: 05/10/23 Consult reason: low back pain (Lumbar radiculopathy) History of present illness: This is a 57-year-old male who has been seen recently by our spine service for similar symptoms that brought him in last night. The patient has history of lumbar decompression and fusion from L3-S1 in 2018 by a spine surgeon at [facility]. Approximately 6 months ago the patient began experiencing symptoms that were concerning for cauda equina syndrome and was admitted to [facility]. His symptoms did improve with steroids. He was seen at that time by Dr. Short and advised to follow-up with his spine surgeon in [place]. The patient was seen again on 04/20/2023 for a similar flareup in which his symptoms improved with steroids. Patient was encouraged to follow-up with his surgeon. He states that he has been unable to get a prior authorization from his insurance to see his surgeon in [place]. He is also having difficulties with his car which is currently not running. He is admitted last evening with complaint of increasing right leg numbness and tingling as well as urinary retention. He also had several episodes of incontinence of stool. He was admitted last evening and placed on IV steroids. We are consulted for orthopedic spine evaluation. He did have a CT scan of the lumbar spine which revealed postsurgical changes and some right-sided stenosis with minimal interval change from previous CT scan. He states that he has not had fecal incontinence since last night. He presently has a Jaramillo catheter in place. Patient states that he is able to ambulate to the bathroom independently today and without assistive device. Past Medical History Past Medical History: Asthma, Coronary Artery Disease (CAD), Chest Pain / Angina, Diabetes Mellitus, GERD/Reflux, GI Bleed, Hyperlipidemia, Hypertension, Myocardial Infarction (ND), Mitral Valve Prolapse (MVP), Pulmonary Embolus (PE), Sleep Apnea/CPAP/BIPAP Additional Past Medical History / Comment(s): Asthmatic bronchitis-chronic, IDDM type II, neuropathy bilateral feet, lower and upper GI bleeds, PUD, diverticulitis, colectomy d/t benign mass/intusseption, BPH, renal cysts, nephrolithiais, UTI with sepsis, chronic back pain 2ndary to herniated lumbar discs/sciatica, JARED does not use his Cpap, MVP, murmur, chronic dysphagia Last Myocardial Infarction Date:: 2011 History of Any Multi-Drug Resistant Organisms: C-DIFF, MRSA Year Discovered:: 2016 MDRO Source:: left axilla Past Surgical History: Appendectomy, Back Surgery, Cholecystectomy, Heart Catheterization, Hernia Repair, Orthopedic Surgery Additional Past Surgical History / Comment(s): Lumbar decompression/fusion/laminectomy, spinal stimulator, T lift procedure, L inguinal hernia repair, multiple ESWLs/stents/double J caths, colonoscopy, 02/2020 colectomy, EGDs for food obstructions and dilations Past Anesthesia/Blood Transfusion Reactions: No Reported Reaction Past Psychological History: No Psychological Hx Reported Additional Psychological History / Comment(s): Pt resides with his mother for whom he is caregiver. Pt is indpendent. He has a cpap but does not use it. He has a glucometer. Smoking Status: Never smoker Past Alcohol Use History: None Reported Past Drug Use History: None Reported - Past Family History Father Family Medical History: Chest Pain / Angina Additional Family Medical History / Comment(s): "lung problems" Mother Family Medical History: Blood Disorder, Cancer, Chest Pain / Angina, Congestive Heart Failure (CHF), Osteoarthritis (OA), Thyroid Disorder Additional Family Medical History / Comment(s): "extension course coordinator cancer" blood clots Medications and Allergies Home Medications Medication Instructions Recorded Confirmed Type Insulin Lispro [humaLOG Kwikpen] See Protocol SQ ACHS 06/16/21 05/09/23 History oxyCODONE-APAP 5-325MG [Percocet 1 tab PO Q6H 09/12/21 05/09/23 History 5-325 mg] Gabapentin [Neurontin] 400 mg PO TID 12/25/21 05/09/23 History Aspirin EC [Ecotrin Low Dose] 81 mg PO DAILY 05/23/22 05/09/23 History Atorvastatin Calcium [Lipitor] 40 mg PO HS 05/23/22 05/09/23 History Baclofen 10 mg PO TID 05/23/22 05/09/23 History Insulin Glargine,Hum.rec.anlog 28 units SQ BID 10/20/22 05/09/23 History [Lantus Solostar Pen] Tamsulosin [Flomax] 0.4 mg PO PC-BRKFST 90 Days #90 cap 10/25/22 05/09/23 Rx Dulaglutide [Trulicity] 0.75 mg SQ TH 03/10/23 05/09/23 History NIFEdipine XL [Procardia XL] 30 mg PO DAILY 03/10/23 05/09/23 History Omeprazole 20 mg PO BID 03/10/23 05/09/23 History carvediloL [Coreg] 25 mg PO BID 03/10/23 05/09/23 History Budesonide [Pulmicort] 0.5 mg INHALATION RT-BID 30 Days 03/14/23 05/09/23 Rx #60 ml Ipratropium-Albuterol Nebulize 3 ml INHALATION RT-QID 30 Days 03/14/23 05/09/23 Rx [Duoneb 0.5 mg-3 mg/3 ml Soln] #120 each Allergies Allergy/AdvReac Type Severity Reaction Status Date / Time doxycycline Allergy Swelling Verified 05/09/23 18:30 ketorolac tromethamine Allergy Rash/Hives Verified 05/09/23 18:30 [From Toradol] morphine Allergy Rash/Hives Verified 05/09/23 18:30 metoclopramide HCl AdvReac Dystonic Verified 05/09/23 18:30 [From Reglan] Reaction prochlorperazine edisylate AdvReac Dystonic Verified 05/09/23 18:30 [From Compazine] Reaction prochlorperazine maleate AdvReac Dystonic Verified 05/09/23 18:30 [From Compazine] Reaction Physical Examination Osteopathic Statement: *. No significant issues noted on an osteopathic structural exam other than those noted in the History and Physical/Consult. This is a pleasant 57-year-old male in no acute distress. He is alert and oriented 3. Exam of his head and neck reveal no obvious deformity. He has full cervical spine motion without difficulty or pain. Exam of the thoracic and lumbar spine reveal no obvious deformity. Surgical Scar is well-healed. Exam of the lower extremities reveals no obvious deformity or shortening. He is able to lift each leg off the bed independently. He has 4/5 strength with dorsi flexion and plantarflexion of the foot against resistance compared to 5/5 on the left. He is able to flex and hip his knee actively in bed. No obvious neural deficits noted to the lower extremities on exam today. Results CT scan of the Thoracic and lumbar Spine reveals minimal interval change from previous studies. Post surgical changes noted with right-sided foraminal stenosis. No acute fractures noted. - Labs Labs: Abnormal Lab Results - Last 24 Hours (Table) 05/09/23 05/10/23 Range/Units 21:07 12:37 POC Glucose (mg/dL) 226 H 357 H (70-110) mg/dL H & H 05/09/23 Range/Units 14:17 Hgb 15.9 (13.0-17.5) gm/dL Hct 46.2 (39.0-53.0) % Result Diagrams: 05/09/23 14:17 05/09/23 14:17 Assessment and Plan (1) Low back pain Current Visit: Yes Status: Acute Code(s): M54.5 - LOW BACK PAIN * DO NOT USE * SNOMED Code(s): 041108506 (2) Urinary retention Current Visit: Yes Status: Acute Code(s): R33.9 - RETENTION OF URINE, UNSPECIFIED SNOMED Code(s): 925879121 Plan: The clinical findings are discussed with the patient. I have reviewed the case with Dr. Short as well. His symptoms do seem to be resolving with the steroid treatment. He is ambulating to the bathroom independently. He has decent strength to his right lower extremity. His fecal incontinence is improving. It is recommended that he follow-up with his original spine surgeon as soon as possible. I recommend continuing a taper dose of steroids at discharge. The patient was seen and examined at bedside yesterday. He is known to our service as he had similar episode a few weeks ago. He had improvement and followed up with urology and was made progress. He was voiding freely. The day before his admission he had episodes of bowel incontinence was brought here to the hospital. He says he still is able have regular bowel movements. He has made improvement in the hospital. He has a catheter intact. He feels overall that he is doing better. He has been ambulatory in his room. He has scheduled follow up with his spine center in regards to his neurostimulator next week. He also has arranged for preauthorization referral for evaluation with his surgery Center at [facility]. He says he plans to follow up with this and has planned for continued management treatment with them. I think that is appropriate and it is okay for him to try to mobilize. He should continue with this oral steroid and follow-up as he plans.
[2023-05-10 17:19] LABS: Glucose,Whole Blood 297 mg/dL (70-110)
[2023-05-10 20:28] LABS: Glucose,Whole Blood 410 mg/dL (70-110)
[2023-05-10] MEDS ORDERED: ATORVASTATIN 40 MG TAB PO SCH (21:00)
[2023-05-10] MEDS ORDERED: INSULIN ASPART (NovoLOG) 100 UNIT/ML VIAL SQ ONE (21:04)
[2023-05-11] MEDS: oxyCODONE-APAP 5-325MG 1 EACH TAB PO PRN ×2 (01:29→08:54)
[2023-05-11] MEDS: HYDROmorphone 1 MG/ML 1 ML SYRINGE IVP PRN ×3 (03:26→11:23)
[2023-05-11 06:15] LABS: Glucose,Whole Blood 296 mg/dL (70-110)
[2023-05-11] MEDS: PANTOPRAZOLE 40 MG TABLET PO SCH (06:19)
[2023-05-11] MEDS: DEXAMETHASONE SOD PHOSPHATE 4 MG/ML 1 ML VIAL IVP SCH ×2 (06:19→11:23)
[2023-05-11] MEDS: INSULIN ASPART (NovoLOG) 100 UNIT/ML VIAL SQ SCH ×2 (06:20→13:08)
[2023-05-11] MEDS: INSULIN DETEMIR (LEVEMIR) 100 UNIT/ML SYR SQ SCH (06:20)
[2023-05-11] MEDS: BUDESONIDE 0.5 MG/2 ML NEBU INHALATION SCH (07:38)
[2023-05-11] MEDS: IPRATROPIUM-ALBUTEROL 3 ML NEB INHALATION SCH ×2 (07:38→10:52)
[2023-05-11 08:04] VITALS: BP 133/82; PULSE 85; RESP 20; TEMP 98
[2023-05-11] MEDS: TAMSULOSIN 0.4 MG CAP.ER.24H PO SCH (08:53)
[2023-05-11] MEDS: ASPIRIN 81 MG PO SCH (08:53)
[2023-05-11] MEDS: BACLOFEN 10 MG TAB PO SCH (08:54)
[2023-05-11] MEDS: GABAPENTIN 400 MG CAP PO SCH (08:54)
[2023-05-11] MEDS: NIFEdipine XL 30 MG TAB.ER.24 PO SCH (08:55)
[2023-05-11] MEDS: carvediloL 12.5 MG TAB PO SCH (08:55)
[2023-05-11] MEDS ORDERED: NON FORMULARY DRUG (Dulaglutide [Trulicity] 0.75 MG/0.5 ML Each) SQ SCH (09:00)
[2023-05-11 12:41] LABS: Glucose,Whole Blood 320 mg/dL (70-110)
== END 2023-05-11 15:01 | disposition home or self-care (01) ==
LOC: EC 12:59 → 6NMEDSUR 16:54
PROVIDERS: ADMIT Family Medicine; ATTEND Family Medicine
DX: G89.29 Other chronic pain (principal); M54.50 Low back pain, unspecified; M48.07 Spinal stenosis, lumbosacral region; N31.9 Neuromuscular dysfunction of bladder, unspecified; I25.10 Atherosclerotic heart disease of native coronary artery without angina pectoris; K21.9 Gastro-esophageal reflux disease without esophagitis; E78.5 Hyperlipidemia, unspecified; I11.0 Hypertensive heart disease with heart failure; I50.32 Chronic diastolic (congestive) heart failure; E11.42 Type 2 diabetes mellitus with diabetic polyneuropathy; N40.0 Benign prostatic hyperplasia without lower urinary tract symptoms; G47.33 Obstructive sleep apnea (adult) (pediatric); J44.89 Other specified chronic obstructive pulmonary disease; I25.2 Old myocardial infarction; E66.01 Morbid (severe) obesity due to excess calories; Z68.37 Body mass index [BMI] 37.0-37.9, adult; Z86.711 Personal history of pulmonary embolism; Z87.11 Personal history of peptic ulcer disease; Z90.49 Acquired absence of other specified parts of digestive tract; Z79.4 Long term (current) use of insulin; Z79.82 Long term (current) use of aspirin; Z79.899 Other long term (current) drug therapy; Z79.85 Long-term (current) use of injectable non-insulin antidiabetic drugs; Z88.1 Allergy status to other antibiotic agents; Z88.5 Allergy status to narcotic agent; Z88.6 Allergy status to analgesic agent
CPT/HCPCS: 96376 ×4; 96372 ×3; 96374; 96375; 99285; 51798; 36415; 80053; 85025; 72128; 72131; G0378 ×3; J1100 ×3; J1170 ×4

== ENCOUNTER 2023-05-16 06:06 | Observation (INO) | payer OTHER ==
[2023-05-16] MEDS ORDERED: ONDANSETRON 4 MG/2 ML VIAL IVP PRN (06:32)
[2023-05-16] MEDS ORDERED: NALOXONE 0.4 MG/ML 1 ML VIAL IV PRN (06:32)
[2023-05-16] MEDS ORDERED: SODIUM CHLORIDE 0.9% 1,000 ML IV STA (06:32)
[2023-05-16] MEDS ORDERED: HYDROmorphone 0.5 MG/0.5 ML SYRINGE IVP STA (06:33)
--- NOTE | 2023-05-16 06:36 | ED ---
Chest Pain HPI - General Chief Complaint: Chest Pain Stated Complaint: Chest Pain Time Seen by Provider: 05/16/23 06:10 Source: patient, RN/MD, EMS, RN notes reviewed, old records reviewed Mode of arrival: EMS Limitations: no limitations - History of Present Illness Initial Comments: This is a 57-year-old male to the emergency department to the emergency department for evaluation of abdominal pain back pain. Patient accepted in transfer from outside facility for chest pain main concern today is chest pain he does suffer from chronic back pain chronic pain. Patient is long chronic medical history COPD diabetes and hypertension heart disease but no recent fevers cough or congestion currently complaining of severe chest pain left-sided chest pain back pain MD Complaint: chest pain -: hour(s) Onset: during rest, during exertion Pain Location: substernal Pain Radiation: none Severity: moderate Severity scale (1-10): 6 Quality: aching Consistency: constant Improves With: nothing Worsens With: nothing Anginal Symptoms: sense of impending doom Other Symptoms: cough, palpitations Treatments Prior to Arrival: none - Related Data Home Medications Medication Instructions Recorded Confirmed Insulin Lispro [humaLOG Kwikpen] See Protocol SQ ACHS 06/16/21 05/20/23 oxyCODONE-APAP 5-325MG [Percocet 1 tab PO Q6H 09/12/21 05/20/23 5-325 mg] Gabapentin [Neurontin] 400 mg PO TID 12/25/21 05/20/23 Aspirin EC [Ecotrin Low Dose] 81 mg PO DAILY 05/23/22 05/20/23 Atorvastatin Calcium [Lipitor] 40 mg PO HS 05/23/22 05/20/23 Baclofen 10 mg PO TID 05/23/22 05/20/23 Insulin Glargine,Hum.rec.anlog 28 units SQ BID 10/20/22 05/20/23 [Lantus Solostar Pen] Dulaglutide [Trulicity] 0.75 mg SQ TH 03/10/23 05/20/23 NIFEdipine XL [Procardia XL] 30 mg PO DAILY 03/10/23 05/20/23 Omeprazole 20 mg PO BID 03/10/23 05/20/23 carvediloL [Coreg] 25 mg PO BID 03/10/23 05/20/23 Previous Rx's Medication Instructions Recorded Tamsulosin [Flomax] 0.4 mg PO PC-BRKFST 90 Days #90 cap 10/25/22 Budesonide [Pulmicort] 0.5 mg INHALATION RT-BID 30 Days 03/14/23 #60 ml Ipratropium-Albuterol Nebulize 3 ml INHALATION RT-QID 30 Days 03/14/23 [Duoneb 0.5 mg-3 mg/3 ml Soln] #120 each Allergies Allergy/AdvReac Type Severity Reaction Status Date / Time doxycycline Allergy Swelling Verified 05/20/23 21:03 ketorolac tromethamine Allergy Rash/Hives Verified 05/20/23 21:03 [From Toradol] morphine Allergy Rash/Hives Verified 05/20/23 21:03 metoclopramide HCl AdvReac Dystonic Verified 05/20/23 21:03 [From Reglan] Reaction prochlorperazine edisylate AdvReac Dystonic Verified 05/20/23 21:03 [From Compazine] Reaction prochlorperazine maleate AdvReac Dystonic Verified 05/20/23 21:03 [From Compazine] Reaction Review of Systems ROS Statement: Those systems with pertinent positive or pertinent negative responses have been documented in the HPI. ROS Other: All systems not noted in ROS Statement are negative. Past Medical History Past Medical History: Asthma, Coronary Artery Disease (CAD), Chest Pain / Angina, Diabetes Mellitus, GERD/Reflux, GI Bleed, Hyperlipidemia, Hypertension, Myocardial Infarction (TX), Mitral Valve Prolapse (MVP), Pulmonary Embolus (PE), Sleep Apnea/CPAP/BIPAP Additional Past Medical History / Comment(s): Asthmatic bronchitis-chronic, IDDM type II, neuropathy bilateral feet, lower and upper GI bleeds, PUD, diverticulitis, colectomy d/t benign mass/intusseption, BPH, renal cysts, nephrolithiais, UTI with sepsis, chronic back pain 2ndary to herniated lumbar discs/sciatica, JARED does not use his Cpap, MVP, murmur, chronic dysphagia Last Myocardial Infarction Date:: 2011 History of Any Multi-Drug Resistant Organisms: C-DIFF, MRSA Date of last positivie culture/infection: 2015 MDRO Source:: left axilla Past Surgical History: Appendectomy, Back Surgery, Cholecystectomy, Heart Catheterization, Hernia Repair, Orthopedic Surgery Additional Past Surgical History / Comment(s): Lumbar decompression/fusion/laminectomy, spinal stimulator, T lift procedure, L inguinal hernia repair, multiple ESWLs/stents/double J caths, colonoscopy, 02/2020 colectomy, EGDs for food obstructions and dilations Past Anesthesia/Blood Transfusion Reactions: No Reported Reaction Past Psychological History: No Psychological Hx Reported Smoking Status: Never smoker Past Alcohol Use History: None Reported Past Drug Use History: None Reported - Past Family History Father Family Medical History: Chest Pain / Angina Additional Family Medical History / Comment(s): "lung problems" Mother Family Medical History: Blood Disorder, Cancer, Chest Pain / Angina, Congestive Heart Failure (CHF), Osteoarthritis (OA), Thyroid Disorder Additional Family Medical History / Comment(s): "test developer cancer" blood clots General Exam General appearance: alert, in no apparent distress, anxious Head exam: Present: atraumatic, normocephalic, normal inspection Eye exam: Present: normal appearance, PERRL, EOMI. Absent: scleral icterus, conjunctival injection, periorbital swelling ENT exam: Present: normal exam, mucous membranes moist Neck exam: Present: normal inspection. Absent: tenderness, meningismus, lymphadenopathy Respiratory exam: Present: normal lung sounds bilaterally. Absent: respiratory distress, wheezes, rales, rhonchi, stridor Cardiovascular Exam: Present: regular rate, normal rhythm, normal heart sounds. Absent: systolic murmur, diastolic murmur, rubs, gallop, clicks GI/Abdominal exam: Present: soft, normal bowel sounds. Absent: distended, tenderness, guarding, rebound, rigid Extremities exam: Present: normal inspection, full ROM, normal capillary refill. Absent: tenderness, pedal edema, joint swelling, calf tenderness Back exam: Present: normal inspection Neurological exam: Present: alert, oriented X3, CN II-XII intact Psychiatric exam: Present: normal affect, normal mood Skin exam: Present: warm, dry, intact, normal color. Absent: rash Course Vital Signs 05/16/23 05/16/23 05/16/23 06:19 08:25 09:03 Temperature 98.1 F Pulse Rate 103 H 107 H 111 H Respiratory 20 18 20 Rate Blood Pressure 150/84 167/108 143/106 O2 Sat by Pulse 96 95 95 Oximetry 11/07/23 11/07/23 10:52 12:09 Temperature 99.1 F 99.0 F Pulse Rate 117 H 104 H Respiratory 20 19 Rate Blood Pressure 168/107 161/104 O2 Sat by Pulse 94 L 96 Oximetry - Reevaluation(s) Reevaluation #1: 05/16/23 06:35 Medical record is reviewed Reevaluation #2: 05/16/23 06:35 Patient symptoms and pain are improved Reevaluation #3: 05/16/23 06:35 patient 40 results questions answered Reevaluation #4: 05/16/23 06:35 Was pt. sent in by a medical professional or institution (, [facility], ASSISTANT COUNTY ENGINEER, urgent care, hospital, or usp...) When possible be specific @ -no Did you speak to anyone other than the patient for history (EMS, parent, family, police, friend...)? What history was obtained from this source @ -no Did you review nursing and triage notes (agree or disagree)? Why? @ -agree Are old charts reviewed (outside hosp., previous admission, EMS record, old EKG, old radiological studies, urgent care reports/EKG's, usp records)? Report findings @ -yes Differential Diagnosis (chest pain, altered mental status, abdominal pain women, abdominal pain men, vaginal bleeding, weakness, fever, dyspnea, syncope, headache, dizziness, GI bleed, back pain, seizure, CVA, palpatations, mental health, musculoskeletal)? @ -prior EKG interpreted by me (3pts min.). @ -yes X-rays interpreted by me (1pt min.). @ -yes CT interpreted by me (1pt min.). @ -no U/S interpreted by me (1pt. min.). @ -no What testing was considered but not performed or refused? (CT, X-rays, U/S, labs)? Why? @ -none What meds were considered but not given or refused? Why? @ -none Did you discuss the management of the patient with other professionals (professionals i.e. MAGGIE Oliveros, ASSISTANT COUNTY ENGINEER, lab, RT, psych nurse, social director, lease examiner, teacher, executive officer, caseworker intake)? Give summary @ -no Was smoking cessation discussed for >3mins.? @ -no Was critical care preformed (if so, how long)? @ -no Were there social determinants of health that impacted care today? How? (Homelessness, low income, unemployed, alcoholism, drug addiction, transportation, low edu. Level, literacy, decrease access to med. care, custodial, rehab)? @ -none Was there de-escalation of care discussed even if they declined (Discuss DNR or withdrawal of care, Hospice)? DNR status @ -no What co-morbidities impacted this encounter? (DM, HTN, Smoking, COPD, CAD, Cancer, CVA, ARF, Chemo, Hep., AIDS, mental health diagnosis, sleep apnea, morbid obesity)? @ -none Was patient admitted / discharged? Hospital course, mention meds given and route, prescriptions, significant lab abnormalities, going to OR and other pertinent info. @ - 57 male be admitted for chest pain observation with severe chronic pain chest pain history of heart disease Admitted Undiagnosed new problem with uncertain prognosis? @ -no Drug Therapy requiring intensive monitoring for toxicity (Heparin, Nitro, Insulin, Cardizem)? @ -no Were any procedures done? @ -no Diagnosis/symptom? @ -Chest pain Acute, or Chronic, or Acute on Chronic? @ -Acute Uncomplicated (without systemic symptoms) or Complicated (systemic symptoms)? @ -Complicated Side effects of treatment? @ -no Exacerbation, Progression, or Severe Exacerbation? @ -exacerbation Poses a threat to life or bodily function? How? (Chest pain, [place], [place], pneumonia, PE, COPD, DKA, ARF, appy, cholecystitis, CVA, Diverticulitis, Homicidal, Suicidal, threat to staff... and all critical care pts) @ -yes Reevaluation #5: 05/16/23 06:35 Differential Chest Pain: Stable Angina, Unstable Angina, STEMI, NSTEMI Aortic Dissection, Pneumothorax, Musculoskeletal, Esophageal Spasm GERD, Cholecystitis, Pancreatitis, Zoster, this is not meant to be an all-inclusive list. - Consultations Consultation #1: Spoke with Dr. Miguel for Dr. Muñiz who will admit this patient Chest Pain MDM - MDM 57 male be admitted for chest pain observation with severe chronic pain chest pain history of heart disease Critical Care Time Critical Care Time: Yes Total Critical Care Time: 31 Disposition Clinical Impression: Intractable back pain, Chest pain, Unstable angina pectoris, Back pain Disposition: ADMITTED IP TO THIS HOSP Condition: Fair Is patient prescribed a controlled substance at d/c from ED?: No Time of Disposition: 06:35
[2023-05-16] MEDS: HYDROmorphone 1 MG/ML 1 ML SYRINGE IVP PRN ×5 (08:05→23:09)
[2023-05-16 08:31] LABS: Basophils % (A) 0 %; Eosinophils # (A) 0.2 k/uL (0-0.7); Eosinophils % (A) 2 %; HCT 41.8 % (39.0-53.0); HGB 14.3 gm/dL (13.0-17.5); Lymphocytes # (A) 1.5 k/uL (1.0-4.8); Lymphocytes % (A) 23 %; MCH 29.8 pg (25.0-35.0); MCHC 34.3 g/dL (31.0-37.0); MCV 86.7 fL (80.0-100.0); Mean Platelet Volume 6.7; Monocytes # (A) 0.3 k/uL (0-1.0); Monocytes % (A) 5 %; Neutrophils # (A) 4.3 k/uL (1.3-7.7); Neutrophils % (A) 67 %; Platelet Count 257 k/uL (150-450); RBC 4.82 m/uL (4.30-5.90); RDW 13.4 % (11.5-15.5); WBC 6.4 k/uL (3.8-10.6)
[2023-05-16 08:42] LABS: ALT 34 U/L (4-49); AST 25 U/L (17-59); African American GFR (CKD) >90 (>60 ml/min/1.73 sqM); Albumin 3.9 g/dL (3.5-5.0); Alkaline Phosphatase 100 U/L (38-126); Anion Gap 11 mmol/L; Blood Urea Nitrogen 11 mg/dL (9-20); Carbon Dioxide 19 mmol/L (22-30); Chloride 104 mmol/L (98-107); Glucose 258 mg/dL (74-99); Magnesium 1.9 mg/dL (1.6-2.3); Non-African American GFR(CKD) >90 (>60 ml/min/1.73 sqM); Phosphorus 3.4 mg/dL (2.5-4.5); Potassium 4.3 mmol/L (3.5-5.1); Sodium 134 mmol/L (137-145); Total Bilirubin 0.9 mg/dL (0.2-1.3); Total Protein 6.8 g/dL (6.3-8.2)
[2023-05-16 08:50] LABS: NT-Pro-B-Type Natriuretic Pept <20 pg/mL
[2023-05-16 08:53] LABS: INR 0.8 (<1.2); Prothrombin Time 9.6 sec (10.0-12.5)
[2023-05-16 09:00] LABS: Partial Thromboplastin Time 21.2 sec (22.0-30.0)
[2023-05-16] MEDS ORDERED: RX INFO: IV CONTRAST WAS GIVEN 1 EACH MISC MISCELLANE PRN (09:53)
[2023-05-16] MEDS: methylPREDNISolone SOD SUCCI 40 MG/ML 1 ML VIAL IV SCH ×2 (10:46→15:51)
--- NOTE | 2023-05-16 12:14 | CT ---
EXAMINATION TYPE: CT angio chest DATE OF EXAM: 05/16/2023 COMPARISON: 03/14/2023 HISTORY: 57-year-old male SOB, PE TECHNIQUE: Contiguous axial scanning of the chest performed with IV Contrast, patient injected with 1 00 mL of Isovue 370. Coronal/sagittal MIP reconstructions performed. CT DLP: 771 mGycm Automated exposure control for dose reduction was used. FINDINGS: The heart is normal size without pericardial effusion. No flattening of the interventricular septum r eflux of contrast into the hepatic veins. Aorta normal caliber with conventional arch vessel branching anatomy. No thoracic lymphadenopathy by CT size criteria. Satisfactory opacification of the pulmonary arterial system. No evidence for pulmonary embolus. Strandy scarring or atelectasis in the lower lungs. No consolidation or pleural effusion. Visualized upper abdomen shows severe fatty infiltration of the liver. Spinal stimulator array along the lower thoracic spinal canal. DISH throughout the mid and lower thor acic spine. IMPRESSION: 1. NO EVIDENCE FOR PULMONARY EMBOLUS OR ACUTE PULMONARY PROCESS. SOME STRANDY SCARRING OR ATELECTASIS IN THE LOWER LUNGS. 2. SEVERE HEPATIC STEATOSIS. APPROPRIATE CLINICAL MANAGEMENT ADVISED.
--- NOTE | 2023-05-16 12:33 | P.CRDCN ---
History of Present Illness Consult date: 05/16/23 Requesting physician: González Muñiz Reason for Consult (text): This is a 57-year-old gentleman who previously followed with Dr. Arora. Has a history of hypertension, hyperlipidemia, diabetes mellitus type 2, cardiac catheterization in October 2020 that showed normal coronaries, sinus tachycardia, admitted to [facility] in January of this year and underwent cardiac workup according the patient including a cardiac catheterization that did not show significant blockage he apparently also had a stress test at that time. He presented to the emergency department at [facility] with complaints of shortness of breath chronic back pain and chest discomfort. EKG and cardiac enzymes have been unremarkable. He was recommended discharge home but requested further workup and was transferred here for further evaluation. CT of the chest was negative for PE. Upon examination he is sitting up in bed. He appears to be having some discomfort that he attributes to his chronic back pain. His breathing overall is feeling a bit better. He has occasional palpitations. He has occasional chest discomfort unchanged from his previous episodes. He has no orthopnea, PND or edema. He's had no syncope or near syncope. He's had no nausea or vomiting. Past Medical History Past Medical History: Asthma, Coronary Artery Disease (CAD), Chest Pain / Angina, Diabetes Mellitus, GERD/Reflux, GI Bleed, Hyperlipidemia, Hypertension, Myocardial Infarction ([place]), Mitral Valve Prolapse (MVP), Pulmonary Embolus (PE), Sleep Apnea/CPAP/BIPAP Additional Past Medical History / Comment(s): Asthmatic bronchitis-chronic, IDDM type II, neuropathy bilateral feet, lower and upper GI bleeds, PUD, diverticulitis, colectomy d/t benign mass/intusseption, BPH, renal cysts, nephrolithiais, UTI with sepsis, chronic back pain 2ndary to herniated lumbar discs/sciatica, JARED does not use his Cpap, MVP, murmur, chronic dysphagia Last Myocardial Infarction Date:: 2011 History of Any Multi-Drug Resistant Organisms: C-DIFF, MRSA Date of last positivie culture/infection: 2015 MDRO Source:: left axilla Past Surgical History: Appendectomy, Back Surgery, Cholecystectomy, Heart Catheterization, Hernia Repair, Orthopedic Surgery Additional Past Surgical History / Comment(s): Lumbar decompression/fusion/laminectomy, spinal stimulator, T lift procedure, L inguinal hernia repair, multiple ESWLs/stents/double J caths, colonoscopy, 02/2020 colectomy, EGDs for food obstructions and dilations Past Anesthesia/Blood Transfusion Reactions: No Reported Reaction Past Psychological History: No Psychological Hx Reported Smoking Status: Never smoker Past Alcohol Use History: None Reported Past Drug Use History: None Reported - Past Family History Father Family Medical History: Chest Pain / Angina Additional Family Medical History / Comment(s): "lung problems" Mother Family Medical History: Blood Disorder, Cancer, Chest Pain / Angina, Congestive Heart Failure (CHF), Osteoarthritis (OA), Thyroid Disorder Additional Family Medical History / Comment(s): "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" blood clots Medications and Allergies Home Medications Medication Instructions Recorded Confirmed Type Insulin Lispro [humaLOG Kwikpen] See Protocol SQ ACHS 06/16/21 05/16/23 History oxyCODONE-APAP 5-325MG [Percocet 1 tab PO Q6H 09/12/21 05/16/23 History 5-325 mg] Gabapentin [Neurontin] 400 mg PO TID 12/25/21 05/16/23 History Aspirin EC [Ecotrin Low Dose] 81 mg PO DAILY 05/23/22 05/16/23 History Atorvastatin Calcium [Lipitor] 40 mg PO HS 05/23/22 05/16/23 History Baclofen 10 mg PO TID 05/23/22 05/16/23 History Insulin Glargine,Hum.rec.anlog 28 units SQ BID 10/20/22 05/16/23 History [Lantus Solostar Pen] Tamsulosin [Flomax] 0.4 mg PO PC-BRKFST 90 Days #90 cap 10/25/22 05/16/23 Rx Dulaglutide [Trulicity] 0.75 mg SQ TH 03/10/23 05/16/23 History NIFEdipine XL [Procardia XL] 30 mg PO DAILY 03/10/23 05/16/23 History Omeprazole 20 mg PO BID 03/10/23 05/16/23 History carvediloL [Coreg] 25 mg PO BID 03/10/23 05/16/23 History Budesonide [Pulmicort] 0.5 mg INHALATION RT-BID 30 Days 03/14/23 05/16/23 Rx #60 ml Ipratropium-Albuterol Nebulize 3 ml INHALATION RT-QID 30 Days 03/14/23 05/16/23 Rx [Duoneb 0.5 mg-3 mg/3 ml Soln] #120 each Allergies Allergy/AdvReac Type Severity Reaction Status Date / Time doxycycline Allergy Swelling Verified 05/16/23 07:24 ketorolac tromethamine Allergy Rash/Hives Verified 05/16/23 07:24 [From Toradol] morphine Allergy Rash/Hives Verified 05/16/23 07:24 metoclopramide HCl AdvReac Dystonic Verified 05/16/23 07:24 [From Reglan] Reaction prochlorperazine edisylate AdvReac Dystonic Verified 05/16/23 07:24 [From Compazine] Reaction prochlorperazine maleate AdvReac Dystonic Verified 05/16/23 07:24 [From Compazine] Reaction Physical Exam Vitals: Vital Signs Temp Pulse Resp BP Pulse Ox 05/16/23 12:09 99.0 F 104 H 19 161/104 96 05/16/23 10:52 99.1 F 117 H 20 168/107 94 L 05/16/23 09:03 111 H 20 143/106 95 05/16/23 08:25 98.1 F 107 H 18 167/108 95 05/16/23 06:19 103 H 20 150/84 96 Intake and Output 05/15/23 05/16/23 05/16/23 22:59 06:59 14:59 Other: Weight 122.016 kg PHYSICAL EXAMINATION: This is a 57-year-old gentleman who appears to be having some discomfort at the time of my examination. VITAL SIGNS: Reviewed HEENT: Head is atraumatic, normocephalic. Pupils are equal, round. Sclerae anicteric. Conjunctivae are clear. Mucous membranes of the mouth are moist. Neck is supple. There is no elevated jugular venous pressure. No carotid bruit is heard. CHEST EXAMINATION: Clear to auscultation bilaterally. No wheezes rales or rhonchi. Respirations even and nonlabored. HEART EXAMINATION: Heart regular, positive S1 and S2. No S3. No S4. No clicks, rubs or murmurs. ABDOMEN: Soft, nontender. Bowel sounds are heard. No organomegaly noted. EXTREMITIES: 2+ peripheral pulses with no evidence of peripheral edema and no calf tenderness noted. NEUROLOGIC EXAMINATION: Patient is awake, alert and oriented x3. Results 05/16/23 08:20 05/16/23 08:20 Cardiac Enzymes 05/16/23 05/16/23 Range/Units 08:20 08:20 AST 25 (17-59) U/L Troponin I <0.012 (0.000-0.034) ng/mL Coagulation 05/16/23 Range/Units 08:20 PT 9.6 L (10.0-12.5) sec APTT 21.2 L (22.0-30.0) sec CBC 05/16/23 Range/Units 08:20 WBC 6.4 (3.8-10.6) k/uL RBC 4.82 (4.30-5.90) m/uL Hgb 14.3 (13.0-17.5) gm/dL Hct 41.8 (39.0-53.0) % Plt Count 257 (150-450) k/uL Comprehensive Metabolic Panel 05/16/23 Range/Units 08:20 Sodium 134 L (137-145) mmol/L Potassium 4.3 (3.5-5.1) mmol/L Chloride 104 (98-107) mmol/L Carbon Dioxide 19 L (22-30) mmol/L BUN 11 (9-20) mg/dL Creatinine 0.39 L (0.66-1.25) mg/dL Glucose 258 H (74-99) mg/dL Calcium 9.0 (8.4-10.2) mg/dL AST 25 (17-59) U/L ALT 34 (4-49) U/L Alkaline Phosphatase 100 (38-126) U/L Total Protein 6.8 (6.3-8.2) g/dL Albumin 3.9 (3.5-5.0) g/dL Current Medications Generic Name Dose Route Start Last Admin Trade Name Freq PRN Reason Stop Dose Admin Hydromorphone HCl 1 mg 05/16/23 06:32 05/16/23 10:46 Hydromorphone 1 Mg/Ml 1 Ml Syringe IVP 1 mg Q3HR PRN Administration Severe Pain (Scale 7 to 10) Sodium Chloride 1,000 mls @ 130 mls/hr 05/16/23 06:32 05/16/23 08:05 Saline 0.9% IV 05/16/23 14:13 130 mls/hr .[id number] STA Administration Methylprednisolone Sodium Succinate 40 mg 05/16/23 10:00 05/16/23 10:46 Methylprednisolone Sod Succi 40 Mg/Ml 1 Ml Vial IV 40 mg Q8HR JOEY Administration Miscellaneous Information 1 each 05/16/23 09:53 Rx Info: Iv Contrast Was Given 1 Each Misc MISCELLANE 05/18/23 09:53 DAILY PRN Per Protocol Naloxone HCl 0.2 mg 05/16/23 06:32 Naloxone 0.4 Mg/Ml 1 Ml Vial IV Q2M PRN Opioid Reversal Ondansetron HCl 4 mg 05/16/23 06:32 Ondansetron 4 Mg/2 Ml Vial IVP Q8HR PRN Nausea And Vomiting Intake and Output 05/15/23 05/16/23 05/16/23 22:59 06:59 14:59 Other: Weight 122.016 kg 05/16/23 08:20 05/16/23 08:20 EKG Interpretations (text) Sinus rhythm with no evidence of ischemia Assessment and Plan Assessment: #1 chest pain, noncardiac #2 hypertension #3 hyperlipidemia #4 diabetes mellitus type 2 #5 chronic back pain Plan: From cardiology's perspective and acute coronary event has been ruled out. Patient's chest discomfort appears to be noncardiac with recent cardiac workup including a heart catheterization in January of this year with no significant findings. At this time we will follow the patient on an as-needed basis. Please do not hesitate to contact us with questions. [employer] note has been reviewed, I agree with a documented findings and plan of care. Patient was seen and examined.
[2023-05-16 12:36] LABS: Glucose,Whole Blood 388 mg/dL (70-110)
[2023-05-16] MEDS: carvediloL 12.5 MG TAB PO SCH ×2 (13:16→19:44)
[2023-05-16] MEDS: oxyCODONE-APAP 5-325MG 1 EACH TAB PO SCH ×2 (13:16→17:49)
[2023-05-16] MEDS: PANTOPRAZOLE 40 MG TABLET PO SCH ×2 (13:16→19:44)
[2023-05-16] MEDS: INSULIN ASPART (NovoLOG) 100 UNIT/ML VIAL SQ SCH ×3 (13:17→20:43)
[2023-05-16] MEDS: TAMSULOSIN 0.4 MG CAP.ER.24H PO SCH (13:22)
[2023-05-16] MEDS: ASPIRIN 81 MG PO SCH (13:22)
[2023-05-16] MEDS: NIFEdipine XL 30 MG TAB.ER.24 PO SCH (13:22)
[2023-05-16] MEDS: BACLOFEN 10 MG TAB PO SCH ×2 (15:51→20:43)
[2023-05-16] MEDS: GABAPENTIN 400 MG CAP PO SCH ×2 (15:51→20:43)
--- NOTE | 2023-05-16 16:04 | P.HPIM ---
History of Present Illness H&P Date: 05/16/23 Chief Complaint: Chest pain and back pain started 2 days ago had been progre ssively 57-year-old male who has progressive increase pain in chest as well as in the back for last 2 days, off note that patient recently was hospitalized for severe back pain treated with IV steroids patient prior medical history significant for diabetes mellitus presented emergency department with 2 day history of the shooting pain in the right lower extremity along with numbness intermittent t ingling sensation patient has a history of the spinal stenosis with intermittent frequent exacerbation patient had a surgery done at [facility] 5 years ago and has been happening intermittent prolapse but that patient has problem with urinary retention bowel incontinence came into the hospital for further evaluation patient was attempted to transferred to [facility] has been unsuccessful due to lack of availability of bed and accepting physician. Patient has been seen by Dr. Short in the past and he is on consult, other active medical problems includes, congestive heart failure, BPH, GERD, COPD, insulin-requiring diabetes mellitus, obstructive sleep apnea on CPAP. Post admission has been started on Decadron to reduce inflammation and pain medicine and supportive care, thoracic lumbar computed tomography scan shows mid dish Murillo scattered fisted arthropathy and vertebral decompression and misalignment spinal stimulator unchanged posterior L3 to S1 posterior interbody fusion with L5 laminectomy no vertebral compression on misalignment seen mild right-sided neural foraminal stenosis L3 to L1, distended bladder Review of Systems All systems: negative Past Medical History Past Medical History: Asthma, Coronary Artery Disease (CAD), Chest Pain / Angina, Diabetes Mellitus, GERD/Reflux, GI Bleed, Hyperlipidemia, Hypertension, Myocardial Infarction ([place]), Mitral Valve Prolapse (MVP), Pulmonary Embolus (PE), Sleep Apnea/CPAP/BIPAP Additional Past Medical History / Comment(s): Asthmatic bronchitis-chronic, IDDM type II, neuropathy bilateral feet, lower and upper GI bleeds, PUD, diverticulitis, colectomy d/t benign mass/intusseption, BPH, renal cysts, nephrolithiais, UTI with sepsis, chronic back pain 2ndary to herniated lumbar discs/sciatica, JARED does not use his Cpap, MVP, murmur, chronic dysphagia Last Myocardial Infarction Date:: 2011 History of Any Multi-Drug Resistant Organisms: C-DIFF, MRSA Date of last positivie culture/infection: 2016 MDRO Source:: left axilla Past Surgical History: Appendectomy, Back Surgery, Cholecystectomy, Heart Catheterization, Hernia Repair, Orthopedic Surgery Additional Past Surgical History / Comment(s): Lumbar decompression/fusion/laminectomy, spinal stimulator, T lift procedure, L inguinal hernia repair, multiple ESWLs/stents/double J caths, colonoscopy, 02/2020 colectomy, EGDs for food obstructions and dilations Past Anesthesia/Blood Transfusion Reactions: No Reported Reaction Past Psychological History: No Psychological Hx Reported Smoking Status: Never smoker Past Alcohol Use History: None Reported Past Drug Use History: None Reported - Past Family History Father Family Medical History: Chest Pain / Angina Additional Family Medical History / Comment(s): "lung problems" Mother Family Medical History: Blood Disorder, Cancer, Chest Pain / Angina, Congestive Heart Failure (CHF), Osteoarthritis (OA), Thyroid Disorder Additional Family Medical History / Comment(s): "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" blood clots Medications and Allergies Home Medications Medication Instructions Recorded Confirmed Type Insulin Lispro [humaLOG Kwikpen] See Protocol SQ ACHS 06/16/21 05/16/23 History oxyCODONE-APAP 5-325MG [Percocet 1 tab PO Q6H 09/12/21 05/16/23 History 5-325 mg] Gabapentin [Neurontin] 400 mg PO TID 12/25/21 05/16/23 History Aspirin EC [Ecotrin Low Dose] 81 mg PO DAILY 05/23/22 05/16/23 History Atorvastatin Calcium [Lipitor] 40 mg PO HS 05/23/22 05/16/23 History Baclofen 10 mg PO TID 05/23/22 05/16/23 History Insulin Glargine,Hum.rec.anlog 28 units SQ BID 10/20/22 05/16/23 History [Lantus Solostar Pen] Tamsulosin [Flomax] 0.4 mg PO PC-BRKFST 90 Days #90 cap 10/25/22 05/16/23 Rx Dulaglutide [Trulicity] 0.75 mg SQ TH 03/10/23 05/16/23 History NIFEdipine XL [Procardia XL] 30 mg PO DAILY 03/10/23 05/16/23 History Omeprazole 20 mg PO BID 03/10/23 05/16/23 History carvediloL [Coreg] 25 mg PO BID 03/10/23 05/16/23 History Budesonide [Pulmicort] 0.5 mg INHALATION RT-BID 30 Days 03/14/23 05/16/23 Rx #60 ml Ipratropium-Albuterol Nebulize 3 ml INHALATION RT-QID 30 Days 03/14/23 05/16/23 Rx [Duoneb 0.5 mg-3 mg/3 ml Soln] #120 each Allergies Allergy/AdvReac Type Severity Reaction Status Date / Time doxycycline Allergy Swelling Verified 05/16/23 07:24 ketorolac tromethamine Allergy Rash/Hives Verified 05/16/23 07:24 [From Toradol] morphine Allergy Rash/Hives Verified 05/16/23 07:24 metoclopramide HCl AdvReac Dystonic Verified 05/16/23 07:24 [From Reglan] Reaction prochlorperazine edisylate AdvReac Dystonic Verified 05/16/23 07:24 [From Compazine] Reaction prochlorperazine maleate AdvReac Dystonic Verified 05/16/23 07:24 [From Compazine] Reaction Physical Exam Vitals: Vital Signs Temp Pulse Pulse Resp BP BP Pulse Ox 05/16/23 13:08 110 H 05/16/23 12:52 98.3 F 116 H 18 163/96 96 05/16/23 12:09 99.0 F 104 H 19 161/104 96 05/16/23 10:52 99.1 F 117 H 20 168/107 94 L 05/16/23 09:03 111 H 20 143/106 95 05/16/23 08:25 98.1 F 107 H 18 167/108 95 05/16/23 06:19 103 H 20 150/84 96 Intake and Output 05/16/23 05/16/23 05/16/23 06:59 14:59 22:59 Intake Total 240 Balance 240 Intake: Oral 240 Other: Weight 122.016 kg 122.016 kg - Constitutional General appearance: average body habitus, cooperative, disheveled, mild distress - EENT Eyes: EOMI, PERRLA ENT: normal oropharynx Ears: bilateral: normal - Neck Carotids: bilateral: upstroke normal Thyroid: bilateral: normal size - Respiratory Respiratory: bilateral: CTA - Cardiovascular Rhythm: regular Heart sounds: normal: S1, S2 - Gastrointestinal General gastrointestinal: normal bowel sounds - Integumentary Integumentary: normal, normal turgor - Neurologic Neurologic: CNII-XII intact - Musculoskeletal Musculoskeletal: gait normal, generalized weakness, strength equal bilaterally, right sided weakness - Psychiatric Psychiatric: A&O x's 3, appropriate affect, intact judgment & insight Results CBC & Chem 7: 05/16/23 08:20 05/16/23 08:20 Labs: Abnormal Lab Results - Last 24 Hours (Table) 05/16/23 05/16/23 05/16/23 Range/Units 08:20 08:20 12:34 PT 9.6 L (10.0-12.5) sec APTT 21.2 L (22.0-30.0) sec Sodium 134 L (137-145) mmol/L Carbon Dioxide 19 L (22-30) mmol/L Creatinine 0.39 L (0.66-1.25) mg/dL Glucose 258 H (74-99) mg/dL POC Glucose (mg/dL) 388 H (70-110) mg/dL CT scan - chest: report reviewed, image reviewed (ECG sinus tachycardia computed tomography scan of the chest negative for pulmonary embolism or acute pulmonary process some stranding atelectasis at the bases seen along with hepatic steatosis) Thrombosis Risk Factor Assmnt - Choose All That Apply Any of the Below Risk Factors Present?: Yes Each Factor Represents 1 point: Age 41-60 years Other Risk Factors: No Thrombosis Risk Factor Assessment Total Risk Factor Score: 1 Thrombosis Risk Factor Assessment Level: Low Risk Assessment and Plan Assessment: Atypical chest pain thought to be related to spine related problems or issues, spine surgery have been consulted but patient declined to see him, cardiology have been consulted as well Back pain related to right-sided L3 S1 foraminotomy stenosis Neurogenic bladder Type 2 diabetes mellitus insulin-dependent Congestive heart failure chronic diastolic heart failure Sleep disorder breathing and sleep apnea Hypertension hypertensive cardiovascular disease Morbid obesity Dyslipidemia GERD BPH Plan: Corticosteroids to reduce inflammation, pain control with oxycodone Continue short and long-acting insulin and oral hypoglycemic agent, monitor Accu-Cheks and sugar closely Continue home medications for dyslipidemia with high intensity statins, Coreg For peripheral neuropathy continue Neurontin monitor closely Continue on Prozac for GERD Bronchodilators as needed Further workup and evaluation pending as per clinical response of the patient Time with Patient: Greater than 30
[2023-05-16] MEDS: IPRATROPIUM-ALBUTEROL 3 ML NEB INHALATION SCH ×2 (16:05→21:10)
[2023-05-16 17:15] LABS: Glucose,Whole Blood 324 mg/dL (70-110)
[2023-05-16] MEDS: ATORVASTATIN 40 MG TAB PO SCH (19:44)
[2023-05-16 20:17] LABS: Glucose,Whole Blood 377 mg/dL (70-110)
[2023-05-16] MEDS: INSULIN DETEMIR (LEVEMIR) 100 UNIT/ML SYR SQ SCH (20:43)
[2023-05-16] MEDS: BUDESONIDE 0.5 MG/2 ML NEBU INHALATION SCH (21:10)
[2023-05-17] MEDS: oxyCODONE-APAP 5-325MG 1 EACH TAB PO SCH ×4 (00:37→18:18)
[2023-05-17] MEDS: methylPREDNISolone SOD SUCCI 40 MG/ML 1 ML VIAL IV SCH ×3 (00:37→16:31)
[2023-05-17] MEDS: HYDROmorphone 1 MG/ML 1 ML SYRINGE IVP PRN ×7 (02:18→22:56)
[2023-05-17 06:35] LABS: Glucose,Whole Blood 320 mg/dL (70-110)
[2023-05-17] MEDS: INSULIN ASPART (NovoLOG) 100 UNIT/ML VIAL SQ SCH ×4 (06:54→20:51)
[2023-05-17] MEDS: INSULIN DETEMIR (LEVEMIR) 100 UNIT/ML SYR SQ SCH ×2 (06:54→20:51)
[2023-05-17] MEDS: carvediloL 12.5 MG TAB PO SCH ×2 (06:55→16:32)
[2023-05-17] MEDS: GABAPENTIN 400 MG CAP PO SCH ×3 (08:14→20:50)
[2023-05-17] MEDS: TAMSULOSIN 0.4 MG CAP.ER.24H PO SCH (08:14)
[2023-05-17] MEDS: PANTOPRAZOLE 40 MG TABLET PO SCH ×2 (08:14→20:50)
[2023-05-17] MEDS: ASPIRIN 81 MG PO SCH (08:14)
[2023-05-17] MEDS: NIFEdipine XL 30 MG TAB.ER.24 PO SCH (08:14)
[2023-05-17] MEDS: BACLOFEN 10 MG TAB PO SCH ×3 (08:15→20:50)
[2023-05-17] MEDS: IPRATROPIUM-ALBUTEROL 3 ML NEB INHALATION SCH ×4 (08:55→20:57)
[2023-05-17] MEDS: BUDESONIDE 0.5 MG/2 ML NEBU INHALATION SCH ×2 (08:55→20:57)
[2023-05-17 09:00] LABS: Basophils # (A) 0.01 X 10*3/uL (0.00-0.10); Basophils % (A) 0.1 %; Eosinophils # (A) 0 X 10*3/uL (0.04-0.35); Eosinophils % (A) 0 %; HCT 39.8 % (39.6-50.0); HGB 13.2 d/dL (13.0-17.0); Lymphocytes # (A) 0.48 X 10*3/uL (0.90-5.00); Lymphocytes % (A) 6.6 %; MCH 28.6 pg (27.0-32.0); MCHC 33.2 d/dL (32.0-37.0); MCV 86.1 FL (80.0-97.0); Mean Platelet Volume 9.3 FL (9.5-12.2); Monocytes % (A) 1.4 %; NRBC Per 100 WBC 0 X 10*3/uL (0.00-0.01); Neutrophils # (A) 6.68 X 10*3/uL (1.80-7.70); Neutrophils % (A) 91.5 %; Platelet Count 243 X 10*3/uL (140-440); RBC 4.62 X 10*6/uL (4.40-5.60); RDW 13.4 % (11.5-14.5)
[2023-05-17 11:27] LABS: ALT 66 U/L (10-49); AST 29 U/L (14-35); Alkaline Phosphatase 114 U/L (41-126); Blood Urea Nitrogen 15.4 mg/dL (9.0-27.0); Calcium 9.3 mg/dL (8.7-10.3); Chloride 100 mmol/L (96-109); Globulin 2.1 g/dL (1.6-3.3); Glucose 323 mg/dL (70-110); Magnesium 2.2 mg/dL (1.5-2.4); Phosphorus 3.4 mg/dL (2.4-5.1); Potassium 4.2 mmol/L (3.5-5.5); Sodium 133 mmol/L (135-145); Total Bilirubin 0.6 mg/dL (0.3-1.2); Total Protein 6.1 g/dL (6.2-8.2)
[2023-05-17 11:58] LABS: Glucose,Whole Blood 352 mg/dL (70-110)
[2023-05-17 17:11] LABS: Glucose,Whole Blood 284 mg/dL (70-110)
[2023-05-17 20:48] LABS: Glucose,Whole Blood 378 mg/dL (70-110)
[2023-05-17] MEDS: ATORVASTATIN 40 MG TAB PO SCH (20:50)
[2023-05-18] MEDS: methylPREDNISolone SOD SUCCI 40 MG/ML 1 ML VIAL IV SCH ×2 (00:36→08:18)
[2023-05-18] MEDS: oxyCODONE-APAP 5-325MG 1 EACH TAB PO SCH ×3 (00:36→13:09)
--- NOTE | 2023-05-18 00:39 | PN ---
PROGRESS NOTE DATE OF SERVICE: 05/17/2023 SUBJECTIVE: This 57-year-old white male complains of chest pain, weakness, cardiology cleared for discharge. CTA is negative for pulmonary embolism. Sent home on his breathing treatments and medications that he takes at home. He is going to get a sleep study outpatient next week. Cardiology has cleared. OBJECTIVE: VITAL SIGNS: Stable, afebrile. LUNGS: Clear. CARDIOVASCULAR: S1, S2. MUSCULOSKELETAL: Palpation thoracic lumbar spine. He is going to follow up with Neurosurgery as an outpatient. Anesthesia does not want to do an epidural while in the hospital. Please see further orders. MMODL / IJN: [id number] /
[2023-05-18] MEDS: HYDROmorphone 1 MG/ML 1 ML SYRINGE IVP PRN ×5 (02:12→15:30)
[2023-05-18 06:14] LABS: Glucose,Whole Blood 292 mg/dL (70-110)
[2023-05-18] MEDS: carvediloL 12.5 MG TAB PO SCH (06:29)
[2023-05-18] MEDS: INSULIN ASPART (NovoLOG) 100 UNIT/ML VIAL SQ SCH ×2 (06:29→13:09)
[2023-05-18] MEDS: INSULIN DETEMIR (LEVEMIR) 100 UNIT/ML SYR SQ SCH (06:30)
[2023-05-18 07:58] VITALS: RESP 18
[2023-05-18] MEDS: PANTOPRAZOLE 40 MG TABLET PO SCH (08:18)
[2023-05-18] MEDS: TAMSULOSIN 0.4 MG CAP.ER.24H PO SCH (08:18)
[2023-05-18] MEDS: ASPIRIN 81 MG PO SCH (08:18)
[2023-05-18] MEDS: GABAPENTIN 400 MG CAP PO SCH (08:18)
[2023-05-18] MEDS: BACLOFEN 10 MG TAB PO SCH (08:18)
[2023-05-18] MEDS: NIFEdipine XL 30 MG TAB.ER.24 PO SCH (08:18)
[2023-05-18] MEDS: IPRATROPIUM-ALBUTEROL 3 ML NEB INHALATION SCH ×3 (08:30→16:01)
[2023-05-18] MEDS: BUDESONIDE 0.5 MG/2 ML NEBU INHALATION SCH (08:30)
[2023-05-18 12:26] LABS: Glucose,Whole Blood 383 mg/dL (70-110)
[2023-05-18 14:27] VITALS: BP 146/87; PULSE 104; TEMP 97.7
== END 2023-05-18 16:47 | disposition home or self-care (01) ==
LOC: EC 06:06 → 6NMEDSUR 06:33
PROVIDERS: ADMIT Internal Medicine Sleep Medicine; ATTEND Internal Medicine Sleep Medicine
DX: R07.89 Other chest pain (principal); G89.29 Other chronic pain; M51.16 Intervertebral disc disorders with radiculopathy, lumbar region; M48.07 Spinal stenosis, lumbosacral region; N31.9 Neuromuscular dysfunction of bladder, unspecified; T85.193A Other mechanical complication of implanted electronic neurostimulator, generator, initial encounter; I11.0 Hypertensive heart disease with heart failure; I50.32 Chronic diastolic (congestive) heart failure; J44.9 Chronic obstructive pulmonary disease, unspecified; G47.33 Obstructive sleep apnea (adult) (pediatric); E11.42 Type 2 diabetes mellitus with diabetic polyneuropathy; M48.14 Ankylosing hyperostosis [Forestier], thoracic region; I25.10 Atherosclerotic heart disease of native coronary artery without angina pectoris; I34.1 Nonrheumatic mitral (valve) prolapse; E78.5 Hyperlipidemia, unspecified; K57.90 Diverticulosis of intestine, part unspecified, without perforation or abscess without bleeding; R00.2 Palpitations; R13.10 Dysphagia, unspecified; K76.0 Fatty (change of) liver, not elsewhere classified; K21.9 Gastro-esophageal reflux disease without esophagitis; N40.0 Benign prostatic hyperplasia without lower urinary tract symptoms; I25.2 Old myocardial infarction; E66.01 Morbid (severe) obesity due to excess calories; Z68.37 Body mass index [BMI] 37.0-37.9, adult; Z79.82 Long term (current) use of aspirin; Z79.4 Long term (current) use of insulin; Z79.85 Long-term (current) use of injectable non-insulin antidiabetic drugs; Z79.51 Long term (current) use of inhaled steroids; Z79.899 Other long term (current) drug therapy; Z88.1 Allergy status to other antibiotic agents; Z88.5 Allergy status to narcotic agent; Z88.8 Allergy status to other drugs, medicaments and biological substances; Z86.711 Personal history of pulmonary embolism; Z96.82 Presence of neurostimulator; Z98.890 Other specified postprocedural states; Z16.39 Resistance to other specified antimicrobial drug; Z86.14 Personal history of Methicillin resistant Staphylococcus aureus infection; Z98.1 Arthrodesis status; Z90.49 Acquired absence of other specified parts of digestive tract; Z87.19 Personal history of other diseases of the digestive system; Z87.440 Personal history of urinary (tract) infections; Z87.442 Personal history of urinary calculi; Z82.49 Family history of ischemic heart disease and other diseases of the circulatory system; Z83.49 Family history of other endocrine, nutritional and metabolic diseases; Z82.61 Family history of arthritis; Z83.6 Family history of other diseases of the respiratory system; Z83.2 Family history of diseases of the blood and blood-forming organs and certain disorders involving the immune mechanism; Z80.49 Family history of malignant neoplasm of other genital organs
CPT/HCPCS: 96376 ×4; 96361; 96374; 96375; 99285; 99291; 94640 ×4; 93005; 83880; 80053 ×2; 83605; 83735 ×2; 84100 ×2; 84484; 85025 ×2; 85610; 85730; 71275; G0378 ×3; J2920 ×3; J1170 ×4; Q9967

== ENCOUNTER 2023-05-20 19:04 | Emergency (ER) | payer OTHER ==
[2023-05-20 19:23] VITALS: TEMP 98.6
[2023-05-20 19:28] LABS: Glucose,Whole Blood 388 mg/dL (70-110)
--- NOTE | 2023-05-20 19:55 | ED ---
General Adult HPI - General Chief complaint: Chest Pain Stated complaint: Chest Pain Time Seen by Provider: 05/20/23 19:06 Source: EMS Mode of arrival: EMS - History of Present Illness Initial comments: Dictation was produced using [employer] dictation software. please excuse any grammatical, word or spelling errors. Chief Complaint: 57-year-old male presents to the emergency department for chest pain History of Present Illness: Is a 57-year-old male presents emergency department for chest pain. He is well-known to emergency department for multiple visitati ons for chest and back pain. Patient was just discharged 2 days ago for chest pain. He was seen by cardiology and discharge. Patient states he has a chest pressure to substernal chest that radiates to the back. Not associated with nausea and diaphoresis. States that similar to when he presented with 4 days ago. The ROS documented in this emergency department record has been reviewed and con firmed by me. Those systems with pertinent positive or negative responses have been documented in the HPI. All other systems are other negative and/or noncontributory. - Related Data Home Medications Medication Instructions Recorded Confirmed Insulin Lispro [humaLOG Kwikpen] See Protocol SQ ACHS 06/16/21 05/20/23 oxyCODONE-APAP 5-325MG [Percocet 1 tab PO Q6H 09/12/21 05/20/23 5-325 mg] Gabapentin [Neurontin] 400 mg PO TID 12/25/21 05/20/23 Aspirin EC [Ecotrin Low Dose] 81 mg PO DAILY 05/23/22 05/20/23 Atorvastatin Calcium [Lipitor] 40 mg PO HS 05/23/22 05/20/23 Baclofen 10 mg PO TID 05/23/22 05/20/23 Insulin Glargine,Hum.rec.anlog 28 units SQ BID 10/20/22 05/20/23 [Lantus Solostar Pen] Dulaglutide [Trulicity] 0.75 mg SQ TH 03/10/23 05/20/23 NIFEdipine XL [Procardia XL] 30 mg PO DAILY 03/10/23 05/20/23 Omeprazole 20 mg PO BID 03/10/23 05/20/23 carvediloL [Coreg] 25 mg PO BID 03/10/23 05/20/23 Previous Rx's Medication Instructions Recorded Tamsulosin [Flomax] 0.4 mg PO PC-BRKFST 90 Days #90 cap 10/25/22 Budesonide [Pulmicort] 0.5 mg INHALATION RT-BID 30 Days 03/14/23 #60 ml Ipratropium-Albuterol Nebulize 3 ml INHALATION RT-QID 30 Days 03/14/23 [Duoneb 0.5 mg-3 mg/3 ml Soln] #120 each Allergies Allergy/AdvReac Type Severity Reaction Status Date / Time doxycycline Allergy Swelling Verified 05/20/23 21:03 ketorolac tromethamine Allergy Rash/Hives Verified 05/20/23 21:03 [From Toradol] morphine Allergy Rash/Hives Verified 05/20/23 21:03 metoclopramide HCl AdvReac Dystonic Verified 05/20/23 21:03 [From Reglan] Reaction prochlorperazine edisylate AdvReac Dystonic Verified 05/20/23 21:03 [From Compazine] Reaction prochlorperazine maleate AdvReac Dystonic Verified 05/20/23 21:03 [From Compazine] Reaction Review of Systems ROS Statement: Those systems with pertinent positive or pertinent negative responses have been documented in the HPI. ROS Other: All systems not noted in ROS Statement are negative. Past Medical History Past Medical History: Asthma, Coronary Artery Disease (CAD), Chest Pain / Angina, Diabetes Mellitus, GERD/Reflux, GI Bleed, Hyperlipidemia, Hypertension, Myocardial Infarction (ND), Mitral Valve Prolapse (MVP), Pulmonary Embolus (PE), Sleep Apnea/CPAP/BIPAP Additional Past Medical History / Comment(s): Asthmatic bronchitis-chronic, IDDM type II, neuropathy bilateral feet, lower and upper GI bleeds, PUD, diverticulitis, colectomy d/t benign mass/intusseption, BPH, renal cysts, nephrolithiais, UTI with sepsis, chronic back pain 2ndary to herniated lumbar discs/sciatica, JARED does not use his Cpap, MVP, murmur, chronic dysphagia Last Myocardial Infarction Date:: 2011 History of Any Multi-Drug Resistant Organisms: C-DIFF, MRSA Date of last positivie culture/infection: 2015 MDRO Source:: left axilla Past Surgical History: Appendectomy, Back Surgery, Cholecystectomy, Heart Catheterization, Hernia Repair, Orthopedic Surgery Additional Past Surgical History / Comment(s): Lumbar decompression/fusion/laminectomy, spinal stimulator, T lift procedure, L inguinal hernia repair, multiple ESWLs/stents/double J caths, colonoscopy, 02/2020 colectomy, EGDs for food obstructions and dilations Past Anesthesia/Blood Transfusion Reactions: No Reported Reaction Past Psychological History: No Psychological Hx Reported Smoking Status: Never smoker Past Alcohol Use History: None Reported Past Drug Use History: None Reported - Past Family History Father Family Medical History: Chest Pain / Angina Additional Family Medical History / Comment(s): "lung problems" Mother Family Medical History: Blood Disorder, Cancer, Chest Pain / Angina, Congestive Heart Failure (CHF), Osteoarthritis (OA), Thyroid Disorder Additional Family Medical History / Comment(s): "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 Cardiovascular: Heart regular rate and rhythm Chest: Able to complete full sentences, no retractions, no tachypnea Abdomen: abdomen soft, non-tender, non-distended, no organomegaly Musculoskeletal: Pulses present and equal in all extremities, no peripheral edema Motor: no focal deficits noted Neurological: CN II-XII grossly intact, no focal motor or sensory deficits noted Skin: Intact with no visualized rashes Psych: Normal affect and mood Course Vital Signs 05/20/23 05/20/23 05/20/23 19:05 19:31 20:00 Temperature 98.6 F Pulse Rate 129 H 100 Pulse Rate [ 126 H Mobile Ui Developer ] Respiratory 22 20 Rate Blood Pressure 201/100 O2 Sat by Pulse 97 Oximetry 05/20/23 05/20/23 05/20/23 20:18 20:30 21:30 Temperature Pulse Rate 99 105 H 98 Pulse Rate [ Mobile Ui Developer ] Respiratory 18 19 20 Rate Blood Pressure 140/104 O2 Sat by Pulse 97 97 Oximetry - Reevaluation(s) Reevaluation #1: 05/20/23 19:53 Chart review was performed showing the patient was recently admitted. He is discharged 2 days ago. He was admitted for chest pain again. He had a negative workup was evaluated by cardiology and discharge. EKG Findings - EKG Comments: EKG Findings:: My EKG interpretation: Ventricular rate of 25, sinus tachycardia, WV interval 147, QRS 105, QTC 408. No WV prolongation, no QTC prolongation, no ST or T-wave changes noted. EKG compared to 05/16/2023 showing no changes. Overall, this EKG is unremarkable Medical Decision Making - Medical Decision Making Was pt. sent in by a medical professional or institution (, [facility], [employer], urgent care, hospital, or group home...) When possible be specific @ -No Did you speak to anyone other than the patient for history (EMS, parent, family, police, friend...)? What history was obtained from this source @ -No Did you review nursing and triage notes (agree or disagree)? Why? @ -I reviewed and agree with nursing and triage notes Were old charts reviewed (outside hosp., previous admission, EMS record, old EKG, old radiological studies, urgent care reports/EKG's, group home records)? Report findings @ -No old charts were reviewed Differential Diagnosis (chest pain, altered mental status, abdominal pain women, abdominal pain men, vaginal bleeding, musculoskeletal, weakness, fever, dyspnea, syncope, headache, dizziness, GI bleed, back pain, seizure, CVA, palpatations, mental health)? @ -Differential Chest Pain: Stable Angina, Unstable Angina, STEMI, NSTEMI Aortic Dissection, Pneumothorax, Musculoskeletal, Esophageal Spasm GERD, Cholecystitis, Pancreatitis, Zoster, this is not meant to be an all-inclusive list. EKG interpreted by me (3pts min.). @ -As above X-rays interpreted by me (1pt min.). @ -Chest x-ray is unremarkable. CT interpreted by me (1pt min.). @ -None done U/S interpreted by me (1pt. min.). @ -None done What testing was considered but not performed or refused? (CT, X-rays, U/S, labs)? Why? @ -None What meds were considered but not given or refused? Why? @ -None Did you discuss the management of the patient with other professionals (professionals i.e. [facility] Oliveros, [employer], lab, RT, psych nurse, health social work professor, moth proofer, teacher, immigration officer, caser)? Give summary @ -Case discussed with Dr. Muñiz guarding patient's clinical presentation. Dr. Muñiz is agreeable for patient to be discharge to his negative workup and has undergone multiple inpatient workups for chest pain. Was smoking cessation discussed for >3mins.? @ -No Was critical care preformed (if so, how long)? @ -No Were there social determinants of health that impacted care today? How? (Homelessness, low income, unemployed, alcoholism, drug addiction, transpo rtation, low edu. Level, literacy, decrease access to med. care, senior living, rehab)? @ -No Was there de-escalation of care discussed even if they declined (Discuss DNR or withdrawal of care, Hospice)? DNR status @ -No What co-morbidities impacted this encounter? (DM, HTN, Smoking, COPD, CAD, Cancer, CVA, ARF, Chemo, Hep., AIDS, mental health diagnosis, sleep apnea, morbid obesity)? @ -None Was patient admitted / discharged? Hospital course, mention meds given and route, prescriptions, significant lab abnormalities, going to OR and other pertinent info. @ -57-year-old male presents yet again to the emergency department for chest pain. Just discharged recently after having seen by cardiology and had negative workup. States that he had chest pain for the whole day since waking up this morning. Labs are unremarkable. Troponin is negative. Patient discharged. Undiagnosed new problem with uncertain prognosis? @ -No Drug Therapy requiring intensive monitoring for toxicity (Heparin, Nitro, Insulin, Cardizem)? @ -No Were any procedures done? @ -No Diagnosis/symptom? Acute, or Chronic, or Acute on Chronic? Uncomplicated (with out systemic symptoms) or Complicated (systemic symptoms)? @ -Chest Pain Side effects of treatment? @ -No Exacerbation, Progression, or Severe Exacerbation? @ -No Poses a threat to life or bodily function? How? (Chest pain, USA, ND, pneumonia, PE, COPD, DKA, ARF, appy, cholecystitis, CVA, Diverticulitis, Homicidal, Suicidal, threat to staff... and all critical care pts) @ -No - Lab Data Result diagrams: 05/20/23 19:55 05/20/23 19:55 Lab Results 05/20/23 05/20/23 05/20/23 Range/Units 19:25 19:55 19:55 WBC 8.9 (3.8-10.6) k/uL RBC 5.22 (4.30-5.90) m/uL Hgb 15.5 (13.0-17.5) gm/dL Hct 44.3 (39.0-53.0) % MCV 84.9 (80.0-100.0) fL MCH 29.8 (25.0-35.0) pg MCHC 35.1 (31.0-37.0) g/dL RDW 13.4 (11.5-15.5) % Plt Count 204 (150-450) k/uL MPV 7.1 Neutrophils % 69 % Lymphocytes % 25 % Monocytes % 4 % Eosinophils % 1 % Basophils % 0 % Neutrophils # 6.1 (1.3-7.7) k/uL Lymphocytes # 2.2 (1.0-4.8) k/uL Monocytes # 0.4 (0-1.0) k/uL Eosinophils # 0.1 (0-0.7) k/uL Basophils # 0.0 (0-0.2) k/uL Sodium 133 L (137-145) mmol/L Potassium 4.0 (3.5-5.1) mmol/L Chloride 102 (98-107) mmol/L Carbon Dioxide 18 L (22-30) mmol/L Anion Gap 13 mmol/L BUN 13 (9-20) mg/dL Creatinine 0.40 L (0.66-1.25) mg/dL Est GFR (CKD-EPI)AfAm >90 (>60 ml/min/1.73 sqM) Est GFR (CKD-EPI)NonAf >90 (>60 ml/min/1.73 sqM) Glucose 279 H (74-99) mg/dL POC Glucose (mg/dL) 388 H (70-110) mg/dL POC Glu Cardiac Rehabilitation Specialist ID Yin Castillo Calcium 9.5 (8.4-10.2) mg/dL Magnesium 1.9 (1.6-2.3) mg/dL Total Bilirubin 0.7 (0.2-1.3) mg/dL AST 31 (17-59) U/L ALT 37 (4-49) U/L Alkaline Phosphatase 157 H (38-126) U/L Troponin I (0.000-0.034) ng/mL Total Protein 6.6 (6.3-8.2) g/dL Albumin 4.0 (3.5-5.0) g/dL 05/20/23 Range/Units 19:55 WBC (3.8-10.6) k/uL RBC (4.30-5.90) m/uL Hgb (13.0-17.5) gm/dL Hct (39.0-53.0) % MCV (80.0-100.0) fL MCH (25.0-35.0) pg MCHC (31.0-37.0) g/dL RDW (11.5-15.5) % Plt Count (150-450) k/uL MPV Neutrophils % % Lymphocytes % % Monocytes % % Eosinophils % % Basophils % % Neutrophils # (1.3-7.7) k/uL Lymphocytes # (1.0-4.8) k/uL Monocytes # (0-1.0) k/uL Eosinophils # (0-0.7) k/uL Basophils # (0-0.2) k/uL Sodium (137-145) mmol/L Potassium (3.5-5.1) mmol/L Chloride (98-107) mmol/L Carbon Dioxide (22-30) mmol/L Anion Gap mmol/L BUN (9-20) mg/dL Creatinine (0.66-1.25) mg/dL Est GFR (CKD-EPI)AfAm (>60 ml/min/1.73 sqM) Est GFR (CKD-EPI)NonAf (>60 ml/min/1.73 sqM) Glucose (74-99) mg/dL POC Glucose (mg/dL) (70-110) mg/dL POC Glu Cardiac Rehabilitation Specialist ID Calcium (8.4-10.2) mg/dL Magnesium (1.6-2.3) mg/dL Total Bilirubin (0.2-1.3) mg/dL AST (17-59) U/L ALT (4-49) U/L Alkaline Phosphatase (38-126) U/L Troponin I <0.012 (0.000-0.034) ng/mL Total Protein (6.3-8.2) g/dL Albumin (3.5-5.0) g/dL Disposition Clinical Impression: Chest pain Disposition: HOME SELF-CARE Condition: Good Instructions (If sedation given, give patient instructions): Chest Pain (ED) Is patient prescribed a controlled substance at d/c from ED?: No Referrals: González Muñiz MD [Primary Care Provider] - 1-2 days Time of Disposition: 22:20
--- NOTE | 2023-05-20 20:41 | XR ---
EXAMINATION TYPE: XR chest 2V DATE OF EXAM: 05/20/2023 7:58 PM CLINICAL INDICATION:Male, 57 years old with history of Chest Pain; [facility] COMPARISON: 04/13/2023 TECHNIQUE: XR chest 2V Frontal and lateral views of the chest. FINDINGS: Lines/Tubes/Devices: EKG leads overlie the chest. Partially seen hardware over the lower cervical spine at the midline. Ne urostimulator again seen with its distal portion the posterior aspect of the lower thoracic spinal ca nal. Lungs/Pleura: There is no evidence of pleural effusion, focal consolidation, or pneumothorax. Pulmonary vascularity: Unremarkable. Heart/mediastinum: Cardiomediastinal silhouette is unremarkable. Heart is not grossly enlarged. Musculoskeletal: No acute osseous pathology. Multilevel endplate spurring in the spine. Other findings: None IMPRESSION: No acute chest abnormality.
[2023-05-20 21:16] LABS: Basophils % (A) 0 %; Eosinophils # (A) 0.1 k/uL (0-0.7); Eosinophils % (A) 1 %; HCT 44.3 % (39.0-53.0); HGB 15.5 gm/dL (13.0-17.5); Lymphocytes # (A) 2.2 k/uL (1.0-4.8); Lymphocytes % (A) 25 %; MCH 29.8 pg (25.0-35.0); MCHC 35.1 g/dL (31.0-37.0); MCV 84.9 fL (80.0-100.0); Mean Platelet Volume 7.1; Monocytes # (A) 0.4 k/uL (0-1.0); Monocytes % (A) 4 %; Neutrophils # (A) 6.1 k/uL (1.3-7.7); Neutrophils % (A) 69 %; Platelet Count 204 k/uL (150-450); RBC 5.22 m/uL (4.30-5.90); RDW 13.4 % (11.5-15.5); WBC 8.9 k/uL (3.8-10.6)
[2023-05-20 21:26] LABS: ALT 37 U/L (4-49); AST 31 U/L (17-59); African American GFR (CKD) >90 (>60 ml/min/1.73 sqM); Alkaline Phosphatase 157 U/L (38-126); Anion Gap 13 mmol/L; Blood Urea Nitrogen 13 mg/dL (9-20); Calcium 9.5 mg/dL (8.4-10.2); Carbon Dioxide 18 mmol/L (22-30); Chloride 102 mmol/L (98-107); Glucose 279 mg/dL (74-99); Magnesium 1.9 mg/dL (1.6-2.3); Non-African American GFR(CKD) >90 (>60 ml/min/1.73 sqM); Sodium 133 mmol/L (137-145); Total Bilirubin 0.7 mg/dL (0.2-1.3); Total Protein 6.6 g/dL (6.3-8.2)
[2023-05-20 21:54] VITALS: BP 140/104; PULSE 98; RESP 20
[2023-05-20] MEDS ORDERED: oxyCODONE-APAP 7.5-325MG 1 EACH TAB PO STA (22:16)
== END 2023-05-20 22:44 | disposition home or self-care (01) ==
LOC: EC 19:04
DX: R07.89 Other chest pain (principal); R00.0 Tachycardia, unspecified; J45.909 Unspecified asthma, uncomplicated; I10 Essential (primary) hypertension; I25.10 Atherosclerotic heart disease of native coronary artery without angina pectoris; I25.2 Old myocardial infarction; K21.9 Gastro-esophageal reflux disease without esophagitis; E78.5 Hyperlipidemia, unspecified; Z88.8 Allergy status to other drugs, medicaments and biological substances; Z88.5 Allergy status to narcotic agent; Z79.4 Long term (current) use of insulin; Z79.82 Long term (current) use of aspirin; Z79.899 Other long term (current) drug therapy
CPT/HCPCS: 36415; 71046; 80053; 83735; 84484; 85025; 93005; 99285

== ENCOUNTER 2023-07-10 09:41 | Emergency (ER) | payer OTHER ==
[2023-07-10] MEDS ORDERED: SODIUM CHLORIDE 0.9% 500 ML 500 ML IV STA (10:02)
[2023-07-10] MEDS ORDERED: SODIUM CHLORIDE 0.9% 1,000 ML IV STA (10:02)
[2023-07-10] MEDS ORDERED: droPERidol 5 MG/2 ML VIAL IVP ONE (10:03)
[2023-07-10 10:06] VITALS: TEMP 98.2
--- NOTE | 2023-07-10 10:09 | ED ---
Male Urogenital HPI - General Chief complaint: Urogenital Stated complaint: Abd pain,vomiting Time Seen by Provider: 07/10/23 09:54 Source: patient, RN notes reviewed Mode of arrival: ambulatory Limitations: no limitations - History of Present Illness Initial comments: 57-year-old male presents emergency Department chief complaint right flank pain, hematuria. Patient states that history kidney stones he states pain started 1 day has worsen. He does admit to nausea vomiting throughout the night. Patient denies any reported fever today states he fell again a few the other day. Denies any chest pain shortness breath denies any back pain he states is able to urinate but states that there is some dysuria. - Related Data Home Medications Medication Instructions Recorded Confirmed Insulin Lispro [humaLOG Kwikpen] See Protocol SQ ACHS 06/16/21 05/20/23 oxyCODONE-APAP 5-325MG [Percocet 1 tab PO Q6H 09/12/21 05/20/23 5-325 mg] Gabapentin [Neurontin] 400 mg PO TID 12/25/21 05/20/23 Aspirin EC [Ecotrin Low Dose] 81 mg PO DAILY 05/23/22 05/20/23 Atorvastatin Calcium [Lipitor] 40 mg PO HS 05/23/22 05/20/23 Baclofen 10 mg PO TID 05/23/22 05/20/23 Insulin Glargine,Hum.rec.anlog 28 units SQ BID 10/20/22 05/20/23 [Lantus Solostar Pen] Dulaglutide [Trulicity] 0.75 mg SQ TH 03/10/23 05/20/23 NIFEdipine XL [Procardia XL] 30 mg PO DAILY 03/10/23 05/20/23 Omeprazole 20 mg PO BID 03/10/23 05/20/23 carvediloL [Coreg] 25 mg PO BID 03/10/23 05/20/23 Previous Rx's Medication Instructions Recorded Tamsulosin [Flomax] 0.4 mg PO PC-BRKFST 90 Days #90 cap 10/25/22 Budesonide [Pulmicort] 0.5 mg INHALATION RT-BID 30 Days 03/14/23 #60 ml Ipratropium-Albuterol Nebulize 3 ml INHALATION RT-QID 30 Days 03/14/23 [Duoneb 0.5 mg-3 mg/3 ml Soln] #120 each Ondansetron Odt [Zofran Odt] 4 mg PO Q8HR PRN #10 tab 07/10/23 Tamsulosin [Flomax] 0.4 mg PO DAILY #7 cap 07/10/23 Allergies Allergy/AdvReac Type Severity Reaction Status Date / Time doxycycline Allergy Swelling Verified 07/10/23 09:49 ketorolac tromethamine Allergy Rash/Hives Verified 07/10/23 09:49 [From Toradol] morphine Allergy Rash/Hives Verified 07/10/23 09:49 metoclopramide HCl AdvReac Dystonic Verified 07/10/23 09:49 [From Reglan] Reaction prochlorperazine edisylate AdvReac Dystonic Verified 07/10/23 09:49 [From Compazine] Reaction prochlorperazine maleate AdvReac Dystonic Verified 07/10/23 09:49 [From Compazine] Reaction Review of Systems ROS Statement: Those systems with pertinent positive or pertinent negative responses have been documented in the HPI. ROS Other: All systems not noted in ROS Statement are negative. Past Medical History Past Medical History: Asthma, Coronary Artery Disease (CAD), Chest Pain / Angina, Diabetes Mellitus, GERD/Reflux, GI Bleed, Hyperlipidemia, Hypertension, Myocardial Infarction ([place]), Mitral Valve Prolapse (MVP), Pulmonary Embolus (PE), Sleep Apnea/CPAP/BIPAP Additional Past Medical History / Comment(s): Asthmatic bronchitis-chronic, IDDM type II, neuropathy bilateral feet, lower and upper GI bleeds, PUD, diverticulitis, colectomy d/t benign mass/intusseption, BPH, renal cysts, nephrolithiais, UTI with sepsis, chronic back pain 2ndary to herniated lumbar discs/sciatica, JARED does not use his Cpap, MVP, murmur, chronic dysphagia Last Myocardial Infarction Date:: 2011 History of Any Multi-Drug Resistant Organisms: C-DIFF, MRSA Date of last positivie culture/infection: 2016 MDRO Source:: left axilla Past Surgical History: Appendectomy, Back Surgery, Cholecystectomy, Heart Catheterization, Hernia Repair, Orthopedic Surgery Additional Past Surgical History / Comment(s): Lumbar decompression/fusion/laminectomy, spinal stimulator, T lift procedure, L inguinal hernia repair, multiple ESWLs/stents/double J caths, colonoscopy, 02/2020 colectomy, EGDs for food obstructions and dilations Past Anesthesia/Blood Transfusion Reactions: No Reported Reaction Past Psychological History: No Psychological Hx Reported Smoking Status: Never smoker Past Alcohol Use History: None Reported Past Drug Use History: None Reported - Past Family History Father Family Medical History: Chest Pain / Angina Additional Family Medical History / Comment(s): "lung problems" Mother Family Medical History: Blood Disorder, Cancer, Chest Pain / Angina, Congestive Heart Failure (CHF), Osteoarthritis (OA), Thyroid Disorder Additional Family Medical History / Comment(s): "stope miner cancer" blood clots General Exam Limitations: no limitations General appearance: alert, in no apparent distress Head exam: Present: atraumatic, normocephalic, normal inspection Respiratory exam: Present: normal lung sounds bilaterally. Absent: respiratory distress, wheezes, rales, rhonchi, stridor Cardiovascular Exam: Present: regular rate, normal rhythm, normal heart sounds. Absent: systolic murmur, diastolic murmur, rubs, gallop, clicks GI/Abdominal exam: Present: soft, tenderness, normal bowel sounds. Absent: distended, guarding, rebound, rigid Back exam: Present: CVA tenderness (R). Absent: CVA tenderness (L) Course Vital Signs 07/10/23 07/10/23 09:47 11:26 Temperature 98.2 F Pulse Rate 120 H 103 H Respiratory 18 20 Rate Blood Pressure 157/92 137/89 O2 Sat by Pulse 98 96 Oximetry Medical Decision Making - Medical Decision Making Was pt. sent in by a medical professional or institution (, PA, CUSTOM WOOD STAIR BUILDER, urgent care, hospital, or intermediate...) When possible be specific @ -No Did you speak to anyone other than the patient for history (EMS, parent, family, police, friend...)? What history was obtained from this source @ -No Did you review nursing and triage notes (agree or disagree)? Why? @ -I reviewed and agree with nursing and triage notes Were old charts reviewed (outside hosp., previous admission, EMS record, old EKG, old radiological studies, urgent care reports/EKG's, intermediate records)? Report findings @ -Reviewed prior laboratory studies Differential Diagnosis (chest pain, altered mental status, abdominal pain women, abdominal pain men, vaginal bleeding, weakness, fever, dyspnea, syncope, headache, dizziness, GI bleed, back pain, seizure, CVA, palpatations, mental health, musculoskeletal)? @ -Differential Abdominal Pain Men: Appendicitis, cholecystitis, diverticulosis, ischemic bowel, pancreatitis, hepatitis, UTI, gastroenteritis, AAA, incarcerated hernia, bowel obstruction, constipation, inflammatory bowel, hepatitis, peptic ulcer disease, splenic infarction, perforated viscus, testicular torsion, this is not meant to be an all-inclusive liste EKG interpreted by me (3pts min.). @ -[None X-rays interpreted by me (1pt min.). @ -X-ray KUB nonspecific bowel gas pattern no definite calcification noted CT interpreted by me (1pt min.). @ -None done U/S interpreted by me (1pt. min.). @ -None done What testing was considered but not performed or refused? (CT, X-rays, U/S, labs)? Why? @ -None What meds were considered but not given or refused? Why? @ -None Did you discuss the management of the patient with other professionals (professionals i.e. , PA, CUSTOM WOOD STAIR BUILDER, lab, RT, psych nurse, social services technician, acid blower, teacher, assistant chief nursing officer, case mgr)? Give summary @ -No Was smoking cessation discussed for >3mins.? @ -No Was critical care preformed (if so, how long)? @ -No Were there social determinants of health that impacted care today? How? (Homelessness, low income, unemployed, alcoholism, drug addiction, transportation, low edu. Level, literacy, decrease access to med. care, penitentiary, rehab)? @ -No Was there de-escalation of care discussed even if they declined (Discuss DNR or withdrawal of care, Hospice)? DNR status @ -No What co-morbidities impacted this encounter? (DM, HTN, Smoking, COPD, CAD, Cancer, CVA, ARF, Chemo, Hep., AIDS, mental health diagnosis, sleep apnea, morbi d obesity)? @ -None Was patient admitted / discharged? Hospital course, mention meds given and route, prescriptions, significant lab abnormalities, going to OR and other pertinent info. @ -Discharge patient went right flank pain with a history kidney stones and noted hematuria patient has no associated infection, laboratory studies shows mi ld hyperglycemia otherwise no acute process pain is improved to be discharged in stable condition to follow-up with urology. Undiagnosed new problem with uncertain prognosis? @ -No Drug Therapy requiring intensive monitoring for toxicity (Heparin, Nitro, Insulin, Cardizem)? @ -No Were any procedures done? @ -No Diagnosis/symptom? @ -[ flank pain, hematuria, history kidney stones Acute, or Chronic, or Acute on Chronic? @ -Acute Uncomplicated (without systemic symptoms) or Complicated (systemic symptoms)? @ -Uncomplicated Side effects of treatment? @ -No Exacerbation, Progression, or Severe Exacerbation? @ -No Poses a threat to life or bodily function? How? (Chest pain, [place], [place], pneumonia, PE, COPD, DKA, ARF, appy, cholecystitis, CVA, Diverticulitis, Homicidal, Suicid al, threat to staff... and all critical care pts) @ -No - Lab Data Result diagrams: 07/10/23 10:09 07/10/23 10:09 Lab Results 07/10/23 07/10/23 07/10/23 Range/Units 10:09 10:09 10:09 WBC 6.2 (3.8-10.6) k/uL RBC 5.14 (4.30-5.90) m/uL Hgb 15.0 (13.0-17.5) gm/dL Hct 44.9 (39.0-53.0) % MCV 87.4 (80.0-100.0) fL MCH 29.2 (25.0-35.0) pg MCHC 33.5 (31.0-37.0) g/dL RDW 13.7 (11.5-15.5) % Plt Count 300 (150-450) k/uL MPV 7.1 Neutrophils % 63 % Lymphocytes % 23 % Monocytes % 5 % Eosinophils % 5 % Basophils % 1 % Neutrophils # 3.9 (1.3-7.7) k/uL Lymphocytes # 1.4 (1.0-4.8) k/uL Monocytes # 0.3 (0-1.0) k/uL Eosinophils # 0.3 (0-0.7) k/uL Basophils # 0.1 (0-0.2) k/uL Sodium 134 L (137-145) mmol/L Potassium 4.6 (3.5-5.1) mmol/L Chloride 101 (98-107) mmol/L Carbon Dioxide 18 L (22-30) mmol/L Anion Gap 15 mmol/L BUN 11 (9-20) mg/dL Creatinine 0.39 L (0.66-1.25) mg/dL Est GFR (CKD-EPI)AfAm >90 (>60 ml/min/1.73 sqM) Est GFR (CKD-EPI)NonAf >90 (>60 ml/min/1.73 sqM) Glucose 345 H (74-99) mg/dL Calcium 10.1 (8.4-10.2) mg/dL Total Bilirubin 0.7 (0.2-1.3) mg/dL AST 24 (17-59) U/L ALT 39 (4-49) U/L Alkaline Phosphatase 156 H (38-126) U/L Total Protein 7.2 (6.3-8.2) g/dL Albumin 4.3 (3.5-5.0) g/dL Lipase 158 (23-300) U/L Urine Color Colorless Urine Appearance Clear (Clear) Urine pH 5.0 (5.0-8.0) Ur Specific [place] 1.035 (1.001-1.035) Urine Protein Negative (Negative) Urine Glucose (UA) 4+ H (Negative) Urine Ketones Negative (Negative) Urine Blood Large H (Negative) Urine Nitrite Negative (Negative) Urine Bilirubin Negative (Negative) Urine Urobilinogen <2.0 (<2.0) mg/dL Ur Leukocyte Esterase Negative (Negative) Urine RBC 170 H (0-5) /hpf Ur Squamous Epith Cells 1 (0-4) /hpf Urine Mucus Rare H (None) /hpf Disposition Clinical Impression: Kidney stones, Hematuria, Right flank pain Disposition: HOME SELF-CARE Condition: Stable Instructions (If sedation given, give patient instructions): Kidney Stones (ED) Additional Instructions: Please return to the Emergency Department if symptoms worsen or any other concerns. Prescriptions: Tamsulosin [Flomax] 0.4 mg PO DAILY #7 cap Ondansetron Odt [Zofran Odt] 4 mg PO Q8HR PRN #10 tab PRN Reason: Nausea Is patient prescribed a controlled substance at d/c from ED?: No Referrals: González Muñiz MD [Primary Care Provider] - 1-2 days Bogdan Chavez MD [STAFF PHYSICIAN] - 1-2 days Time of Disposition: 10:58
[2023-07-10 10:18] LABS: Basophils # (A) 0.1 k/uL (0-0.2); Basophils % (A) 1 %; Eosinophils # (A) 0.3 k/uL (0-0.7); Eosinophils % (A) 5 %; HCT 44.9 % (39.0-53.0); Lymphocytes # (A) 1.4 k/uL (1.0-4.8); Lymphocytes % (A) 23 %; MCH 29.2 pg (25.0-35.0); MCHC 33.5 g/dL (31.0-37.0); MCV 87.4 fL (80.0-100.0); Mean Platelet Volume 7.1; Monocytes # (A) 0.3 k/uL (0-1.0); Monocytes % (A) 5 %; Neutrophils # (A) 3.9 k/uL (1.3-7.7); Neutrophils % (A) 63 %; Platelet Count 300 k/uL (150-450); RBC 5.14 m/uL (4.30-5.90); RDW 13.7 % (11.5-15.5); WBC 6.2 k/uL (3.8-10.6)
[2023-07-10 10:29] LABS: ALT 39 U/L (4-49); AST 24 U/L (17-59); African American GFR (CKD) >90 (>60 ml/min/1.73 sqM); Albumin 4.3 g/dL (3.5-5.0); Alkaline Phosphatase 156 U/L (38-126); Anion Gap 15 mmol/L; Blood Urea Nitrogen 11 mg/dL (9-20); Calcium 10.1 mg/dL (8.4-10.2); Carbon Dioxide 18 mmol/L (22-30); Chloride 101 mmol/L (98-107); Glucose 345 mg/dL (74-99); Lipase 158 U/L (23-300); Non-African American GFR(CKD) >90 (>60 ml/min/1.73 sqM); Potassium 4.6 mmol/L (3.5-5.1); Sodium 134 mmol/L (137-145); Total Bilirubin 0.7 mg/dL (0.2-1.3); Total Protein 7.2 g/dL (6.3-8.2)
[2023-07-10 10:47] LABS: Appearance,Urine Clear (Clear); Bilirubin,Urine Negative (Negative); Blood,Urine Large (Negative); Color,Urine Colorless; Glucose,Urine (UA) 4+ (Negative); Ketones,Urine Negative (Negative); Leukocyte Esterase,Urine Negative (Negative); Mucus,Urine Rare /hpf; Nitrite,Urine Negative (Negative); Protein,Urine Negative (Negative); RBC,Urine 170 /hpf (0-5); Specific Gravity,Urine 1.035 (1.001-1.035); Squamous Epithelial Cell,Urine 1 /hpf (0-4); Urobilinogen,Urine <2.0 mg/dL (<2.0)
[2023-07-10] MEDS ORDERED: TAMSULOSIN 0.4 MG CAP.ER.24H PO STA (10:56)
[2023-07-10] MEDS ORDERED: HYDROmorphone 1 MG/ML 1 ML SYRINGE IVP STA (10:56)
--- NOTE | 2023-07-10 11:16 | XR ---
EXAMINATION TYPE: XR KUB DATE OF EXAM: 07/10/2023 COMPARISON: 01/23/2023 INDICATION: Abdomen pain TECHNIQUE: Single view abdomen upright view FINDINGS: There is a normal bowel gas pattern. Psoas margins are normal. Hepatomegaly may be present. Clinical correlation recommended. There is prior lumbar fixation L3-S1. Thoracic Stimulator leads in the electronic device or the left pelvis IMPRESSION: 1. No acute changes. 2. Hepatomegaly
[2023-07-10 11:46] VITALS: BP 137/89; PULSE 103; RESP 20
== END 2023-07-10 11:34 | disposition home or self-care (01) ==
LOC: EC 09:41
DX: N20.0 Calculus of kidney (principal); R16.0 Hepatomegaly, not elsewhere classified; J45.909 Unspecified asthma, uncomplicated; I25.10 Atherosclerotic heart disease of native coronary artery without angina pectoris; E11.9 Type 2 diabetes mellitus without complications; I10 Essential (primary) hypertension; I25.2 Old myocardial infarction; E78.5 Hyperlipidemia, unspecified; K21.9 Gastro-esophageal reflux disease without esophagitis; G47.30 Sleep apnea, unspecified; Z79.4 Long term (current) use of insulin; Z79.82 Long term (current) use of aspirin; Z79.899 Other long term (current) drug therapy; Z88.5 Allergy status to narcotic agent; Z88.8 Allergy status to other drugs, medicaments and biological substances
CPT/HCPCS: 36415; 80053; 83690; 85025; 81001; 74018; 99284; 96374; 96375; 96361; J1170; J1790

== ENCOUNTER 2023-08-26 11:17 | Emergency (ER) | payer OTHER ==
--- NOTE | 2023-08-26 11:48 | ED ---
General Adult HPI - General Chief complaint: Urogenital Stated complaint: Flank pain Time Seen by Provider: 08/26/23 11:22 Source: patient, EMS, RN notes reviewed Mode of arrival: EMS Limitations: no limitations - History of Present Illness Initial comments: Patient is a pleasant 57-year-old male present to the emergency department with right flank pain. Onset of symptoms was around 24 hours ago. Discomfort has been waxing and waning. Discomfort has been moving location. Discomfort is mostly right posterior flank. Patient denies any midline back pain however has some chronic midline back problems. Patient has been having some urinary frequency and urgency. Patient questions if he had a fever last night - Related Data Home Medications Medication Instructions Recorded Confirmed Insulin Lispro [humaLOG Kwikpen] See Protocol SQ ACHS 06/16/21 05/20/23 oxyCODONE-APAP 5-325MG [Percocet 1 tab PO Q6H 09/12/21 05/20/23 5-325 mg] Gabapentin [Neurontin] 400 mg PO TID 12/25/21 05/20/23 Aspirin EC [Ecotrin Low Dose] 81 mg PO DAILY 05/23/22 05/20/23 Atorvastatin Calcium [Lipitor] 40 mg PO HS 05/23/22 05/20/23 Baclofen 10 mg PO TID 05/23/22 05/20/23 Insulin Glargine,Hum.rec.anlog 28 units SQ BID 10/20/22 05/20/23 [Lantus Solostar Pen] Dulaglutide [Trulicity] 0.75 mg SQ TH 03/10/23 05/20/23 NIFEdipine XL [Procardia XL] 30 mg PO DAILY 03/10/23 05/20/23 Omeprazole 20 mg PO BID 03/10/23 05/20/23 carvediloL [Coreg] 25 mg PO BID 03/10/23 05/20/23 Previous Rx's Medication Instructions Recorded Tamsulosin [Flomax] 0.4 mg PO PC-BRKFST 90 Days #90 cap 10/25/22 Budesonide [Pulmicort] 0.5 mg INHALATION RT-BID 30 Days 03/14/23 #60 ml Ipratropium-Albuterol Nebulize 3 ml INHALATION RT-QID 30 Days 03/14/23 [Duoneb 0.5 mg-3 mg/3 ml Soln] #120 each Ondansetron Odt [Zofran Odt] 4 mg PO Q8HR PRN #10 tab 07/10/23 Tamsulosin [Flomax] 0.4 mg PO DAILY #7 cap 07/10/23 Allergies Allergy/AdvReac Type Severity Reaction Status Date / Time doxycycline Allergy Swelling Verified 07/10/23 09:49 ketorolac tromethamine Allergy Rash/Hives Verified 07/10/23 09:49 [From Toradol] morphine Allergy Rash/Hives Verified 07/10/23 09:49 metoclopramide HCl AdvReac Dystonic Verified 07/10/23 09:49 [From Reglan] Reaction prochlorperazine edisylate AdvReac Dystonic Verified 07/10/23 09:49 [From Compazine] Reaction prochlorperazine maleate AdvReac Dystonic Verified 07/10/23 09:49 [From Compazine] Reaction Review of Systems ROS Statement: Those systems with pertinent positive or pertinent negative responses have been documented in the HPI. ROS Other: All systems not noted in ROS Statement are negative. Constitutional: Reports: as per HPI Eyes: Denies: eye pain ENT: Denies: ear pain Respiratory: Denies: cough Cardiovascular: Denies: chest pain Endocrine: Denies: fatigue Gastrointestinal: Reports: as per HPI, nausea. Denies: vomiting Musculoskeletal: Reports: as per HPI Past Medical History Past Medical History: Asthma, Coronary Artery Disease (CAD), Chest Pain / Brigitte na, Diabetes Mellitus, GERD/Reflux, GI Bleed, Hyperlipidemia, Hypertension, Myocardial Infarction (NH), Mitral Valve Prolapse (MVP), Pulmonary Embolus (PE), Sleep Apnea/CPAP/BIPAP Additional Past Medical History / Comment(s): Asthmatic bronchitis-chronic, IDDM type II, neuropathy bilateral feet, lower and upper GI bleeds, PUD, diverticulitis, colectomy d/t benign mass/intusseption, BPH, renal cysts, nephrolithiais, UTI with sepsis, chronic back pain 2ndary to herniated lumbar discs/sciatica, JARED does not use his Cpap, MVP, murmur, chronic dysphagia Last Myocardial Infarction Date:: 2011 History of Any Multi-Drug Resistant Organisms: C-DIFF, MRSA Date of last positivie culture/infection: 2015 MDRO Source:: left axilla Past Surgical History: Appendectomy, Back Surgery, Cholecystectomy, Heart Catheterization, Hernia Repair, Orthopedic Surgery Additional Past Surgical History / Comment(s): Lumbar decompression/fusio n/laminectomy, spinal stimulator, T lift procedure, L inguinal hernia repair, multiple ESWLs/stents/double J caths, colonoscopy, 02/2020 colectomy, EGDs for food obstructions and dilations Past Anesthesia/Blood Transfusion Reactions: No Reported Reaction Past Psychological History: No Psychological Hx Reported Smoking Status: Never smoker Past Alcohol Use History: None Reported Past Drug Use History: None Reported - Past Family History Father Family Medical History: Chest Pain / Angina Additional Family Medical History / Comment(s): "lung problems" Mother Family Medical History: Blood Disorder, Cancer, Chest Pain / Angina, Congestive Heart Failure (CHF), Osteoarthritis (OA), Thyroid Disorder Additional Family Medical History / Comment(s): "brick molder hand cancer" blood clots General Exam Limitations: no limitations General appearance: alert, in no apparent distress Head exam: Present: normocephalic Eye exam: Present: normal appearance Neck exam: Present: normal inspection Respiratory exam: Present: normal lung sounds bilaterally Cardiovascular Exam: Present: regular rate, normal rhythm Expanded Peripheral pulses: 2+: Posterior Tibialis (R), Posterior Tibialis (L) GI/Abdominal exam: Present: soft. Absent: distended, tenderness Extremities exam: Present: normal inspection Back exam: Present: normal inspection Neurological exam: Present: alert. Absent: motor sensory deficit Psychiatric exam: Present: normal affect, normal mood Skin exam: Present: normal color Course Vital Signs 08/26/23 08/26/23 08/26/23 11:21 12:46 13:24 Temperature 98.4 F Pulse Rate 100 100 100 Respiratory 18 18 18 Rate Blood Pressure 172/101 142/88 151/96 O2 Sat by Pulse 98 96 100 Oximetry Medical Decision Making - Medical Decision Making Was pt. sent in by a medical professional or institution (, PA, LAMINATING MACHINE FEEDER, urgent care, hospital, or [facility]...) When possible be specific @ -No Did you speak to anyone other than the patient for history (EMS, parent, family, police, friend...)? What history was obtained from this source @ -No Did you review nursing and triage notes (agree or disagree)? Why? @ -I reviewed and agree with nursing and triage notes Were old charts reviewed (outside hosp., previous admission, EMS record, old EKG, old radiological studies, urgent care reports/EKG's, [facility] records)? Report findings @ -Previous CT reports reviewed Differential Diagnosis (chest pain, altered mental status, abdominal pain women, abdominal pain men, vaginal bleeding, weakness, fever, dyspnea, syncope, headache, dizziness, GI bleed, back pain, seizure, CVA, palpatations, mental health, musculoskeletal)? @ -Differential Abdominal Pain Men: Appendicitis, cholecystitis, diverticulosis, ischemic bowel, pancreatitis, hepatitis, UTI, gastroenteritis, AAA, incarcerated hernia, bowel obstruction, constipation, inflammatory bowel, hepatitis, peptic ulcer disease, splenic infarction, perforated viscus, testicular torsion, this is not meant to be an all-inclusive list Differential Back Pain: Strain, zoster, cauda equina syndrome, epidural abscess, vertebral osteomyelitis, discitis, fracture, subluxation, disc herniation, DJD, spinal stenosis, dissection, AAA, pancreatitis, peptic ulcer disease, pyelonephritis, kidney stone, this is not meant to be an all-inclusive list. EKG interpreted by me (3pts min.). @ -As above X-rays interpreted by me (1pt min.). @ -None done CT interpreted by me (1pt min.). @ -CT scan abdomen pelvis without acute abnormality U/S interpreted by me (1pt. min.). @ -None done What testing was considered but not performed or refused? (CT, X-rays, U/S, labs)? Why? @ -None What meds were considered but not given or refused? Why? @ -None Did you discuss the management of the patient with other professionals (professionals i.e. , PA, LAMINATING MACHINE FEEDER, lab, RT, psych nurse, social media community manager, deputy county attorney, teacher, parcel post officer, manager rn case)? Give summary @ -No Was smoking cessation discussed for >3mins.? @ -No Was critical care preformed (if so, how long)? @ -No Were there social determinants of health that impacted care today? How? (Homelessness, low income, unemployed, alcoholism, drug addiction, transpor tation, low edu. Level, literacy, decrease access to med. care, halfway, rehab)? @ -No Was there de-escalation of care discussed even if they declined (Discuss DNR or withdrawal of care, Hospice)? DNR status @ -No What co-morbidities impacted this encounter? (DM, HTN, Smoking, COPD, CAD, Cancer, CVA, ARF, Chemo, Hep., AIDS, mental health diagnosis, sleep apnea, morbid obesity)? @ -None Was patient admitted / discharged? Hospital course, mention meds given and route, prescriptions, significant lab abnormalities, going to OR and other pertinent info. @ -Patient reevaluated. Patient resting comfortably in bed. Patient states pain medicine has helped however starting to wear off and does request more. Patient states he will follow-up with his doctor beginning of the week. Undiagnosed new problem with uncertain prognosis? @ -No Drug Therapy requiring intensive monitoring for toxicity (Heparin, Nitro, Insulin, Cardizem)? @ -No Were any procedures done? @ -No Diagnosis/symptom? @ -Back pain Acute, or Chronic, or Acute on Chronic? @ -Acute on chronic Uncomplicated (without systemic symptoms) or Complicated (systemic symptoms)? @ -Default Side effects of treatment? @ -No Exacerbation, Progression, or Severe Exacerbation? @ -No Poses a threat to life or bodily function? How? (Chest pain, USA, NH, pneumonia, PE, COPD, DKA, ARF, appy, cholecystitis, CVA, Diverticulitis, Homicidal, Suicidal, threat to staff... and all critical care pts) @ -No - Lab Data Result diagrams: 08/26/23 11:52 08/26/23 11:52 Lab Results 08/26/23 08/26/23 08/26/23 Range/Units 11:52 11:52 11:52 WBC 6.8 (3.8-10.6) k/uL RBC 5.40 (4.30-5.90) m/uL Hgb 15.8 (13.0-17.5) gm/dL Hct 46.4 (39.0-53.0) % MCV 85.9 (80.0-100.0) fL MCH 29.3 (25.0-35.0) pg MCHC 34.1 (31.0-37.0) g/dL RDW 12.9 (11.5-15.5) % Plt Count 278 (150-450) k/uL MPV 7.2 Neutrophils % 65 % Lymphocytes % 23 % Monocytes % 6 % Eosinophils % 3 % Basophils % 1 % Neutrophils # 4.5 (1.3-7.7) k/uL Lymphocytes # 1.5 (1.0-4.8) k/uL Monocytes # 0.4 (0-1.0) k/uL Eosinophils # 0.2 (0-0.7) k/uL Basophils # 0.0 (0-0.2) k/uL PT 10.2 (10.0-12.5) sec INR 0.9 (<1.2) APTT 22.5 (22.0-30.0) sec Sodium (137-145) mmol/L Potassium (3.5-5.1) mmol/L Chloride (98-107) mmol/L Carbon Dioxide (22-30) mmol/L Anion Gap mmol/L BUN (9-20) mg/dL Creatinine (0.66-1.25) mg/dL Est GFR (CKD-EPI)AfAm (>60 ml/min/1.73 sqM) Est GFR (CKD-EPI)NonAf (>60 ml/min/1.73 sqM) Glucose (74-99) mg/dL Calcium (8.4-10.2) mg/dL Total Bilirubin (0.2-1.3) mg/dL AST (17-59) U/L ALT (4-49) U/L Alkaline Phosphatase (38-126) U/L Total Protein (6.3-8.2) g/dL Albumin (3.5-5.0) g/dL Amylase (30-110) U/L Lipase (23-300) U/L Urine Color Yellow Urine Appearance Cloudy (Clear) Urine pH 5.0 (5.0-8.0) Ur Specific [place] 1.028 (1.001-1.035) Urine Protein Negative (Negative) Urine Glucose (UA) 4+ H (Negative) Urine Ketones Negative (Negative) Urine Blood Large H (Negative) Urine Nitrite Negative (Negative) Urine Bilirubin Negative (Negative) Urine Urobilinogen <2.0 (<2.0) mg/dL Ur Leukocyte Esterase Negative (Negative) Urine RBC 135 H (0-5) /hpf Urine WBC 3 (0-5) /hpf Ur Squamous Epith Cells 6 H (0-4) /hpf Urine Mucus Many H (None) /hpf 08/26/23 Range/Units 11:52 WBC (3.8-10.6) k/uL RBC (4.30-5.90) m/uL Hgb (13.0-17.5) gm/dL Hct (39.0-53.0) % MCV (80.0-100.0) fL MCH (25.0-35.0) pg MCHC (31.0-37.0) g/dL RDW (11.5-15.5) % Plt Count (150-450) k/uL MPV Neutrophils % % Lymphocytes % % Monocytes % % Eosinophils % % Basophils % % Neutrophils # (1.3-7.7) k/uL Lymphocytes # (1.0-4.8) k/uL Monocytes # (0-1.0) k/uL Eosinophils # (0-0.7) k/uL Basophils # (0-0.2) k/uL PT (10.0-12.5) sec INR (<1.2) APTT (22.0-30.0) sec Sodium 136 L (137-145) mmol/L Potassium 4.2 (3.5-5.1) mmol/L Chloride 104 (98-107) mmol/L Carbon Dioxide 20 L (22-30) mmol/L Anion Gap 12 mmol/L BUN 10 (9-20) mg/dL Creatinine 0.57 L (0.66-1.25) mg/dL Est GFR (CKD-EPI)AfAm >90 (>60 ml/min/1.73 sqM) Est GFR (CKD-EPI)NonAf >90 (>60 ml/min/1.73 sqM) Glucose 263 H (74-99) mg/dL Calcium 9.9 (8.4-10.2) mg/dL Total Bilirubin 0.8 (0.2-1.3) mg/dL AST 22 (17-59) U/L ALT 23 (4-49) U/L Alkaline Phosphatase 111 (38-126) U/L Total Protein 7.2 (6.3-8.2) g/dL Albumin 4.5 (3.5-5.0) g/dL Amylase 85 (30-110) U/L Lipase 250 (23-300) U/L Urine Color Urine Appearance (Clear) Urine pH (5.0-8.0) Ur Specific [place] (1.001-1.035) Urine Protein (Negative) Urine Glucose (UA) (Negative) Urine Ketones (Negative) Urine Blood (Negative) Urine Nitrite (Negative) Urine Bilirubin (Negative) Urine Urobilinogen (<2.0) mg/dL Ur Leukocyte Esterase (Negative) Urine RBC (0-5) /hpf Urine WBC (0-5) /hpf Ur Squamous Epith Cells (0-4) /hpf Urine Mucus (None) /hpf Disposition Clinical Impression: Back pain Disposition: HOME SELF-CARE Condition: Stable Instructions (If sedation given, give patient instructions): Back Pain (ED) Additional Instructions: Please do follow-up with your primary care physician Monday as planned. Please also follow-up with your back doctor on Monday. Return for increased pain, weakness, loss of control of bowel or bladder, worsening symptoms or any other concerns. Please follow-up with your urologist regarding hematuria. Is patient prescribed a controlled substance at d/c from ED?: No Referrals: González Muñiz MD [Primary Care Provider] - 1-2 days Trav Darling MD [STAFF PHYSICIAN] - 1-2 days Time of Disposition: 15:23
[2023-08-26 11:58] VITALS: RESP 18
[2023-08-26] MEDS: SODIUM CHLORIDE 0.9% 1,000 ML IV STA (11:58)
[2023-08-26] MEDS: ONDANSETRON 4 MG/2 ML VIAL IVP STA (12:00)
[2023-08-26] MEDS: HYDROmorphone 1 MG/ML 1 ML SYRINGE IVP STA ×3 (12:01→15:32)
[2023-08-26 12:14] LABS: Basophils % (A) 1 %; Eosinophils # (A) 0.2 k/uL (0-0.7); Eosinophils % (A) 3 %; HCT 46.4 % (39.0-53.0); HGB 15.8 gm/dL (13.0-17.5); Lymphocytes # (A) 1.5 k/uL (1.0-4.8); Lymphocytes % (A) 23 %; MCH 29.3 pg (25.0-35.0); MCHC 34.1 g/dL (31.0-37.0); MCV 85.9 fL (80.0-100.0); Mean Platelet Volume 7.2; Monocytes # (A) 0.4 k/uL (0-1.0); Monocytes % (A) 6 %; Neutrophils # (A) 4.5 k/uL (1.3-7.7); Neutrophils % (A) 65 %; Platelet Count 278 k/uL (150-450); RDW 12.9 % (11.5-15.5); WBC 6.8 k/uL (3.8-10.6)
[2023-08-26 12:20] LABS: ALT 23 U/L (4-49); AST 22 U/L (17-59); African American GFR (CKD) >90 (>60 ml/min/1.73 sqM); Albumin 4.5 g/dL (3.5-5.0); Alkaline Phosphatase 111 U/L (38-126); Amylase 85 U/L (30-110); Anion Gap 12 mmol/L; Blood Urea Nitrogen 10 mg/dL (9-20); Calcium 9.9 mg/dL (8.4-10.2); Carbon Dioxide 20 mmol/L (22-30); Chloride 104 mmol/L (98-107); Glucose 263 mg/dL (74-99); Lipase 250 U/L (23-300); Non-African American GFR(CKD) >90 (>60 ml/min/1.73 sqM); Potassium 4.2 mmol/L (3.5-5.1); Sodium 136 mmol/L (137-145); Total Bilirubin 0.8 mg/dL (0.2-1.3); Total Protein 7.2 g/dL (6.3-8.2)
[2023-08-26 12:29] LABS: INR 0.9 (<1.2); Partial Thromboplastin Time 22.5 sec (22.0-30.0); Prothrombin Time 10.2 sec (10.0-12.5)
[2023-08-26 12:32] LABS: Appearance,Urine Cloudy (Clear); Bilirubin,Urine Negative (Negative); Blood,Urine Large (Negative); Color,Urine Yellow; Glucose,Urine (UA) 4+ (Negative); Ketones,Urine Negative (Negative); Leukocyte Esterase,Urine Negative (Negative); Mucus,Urine Many /hpf; Nitrite,Urine Negative (Negative); Protein,Urine Negative (Negative); RBC,Urine 135 /hpf (0-5); Specific Gravity,Urine 1.028 (1.001-1.035); Squamous Epithelial Cell,Urine 6 /hpf (0-4); Urobilinogen,Urine <2.0 mg/dL (<2.0); WBC,Urine 3 /hpf (0-5)
--- NOTE | 2023-08-26 12:42 | CT ---
EXAMINATION TYPE: CT abdomen pelvis wo con CT DLP: 1367.9 mGycm, Automated exposure control for dose reduction was used. DATE OF EXAM: 08/26/2023 12:31 PM COMPARISON: 05/16/2023 01/23/2023 CLINICAL INDICATION:Male, 57 years old with history of abdominal pain; abd pain TECHNIQUE: Axial CT abdomen pelvis wo con;Sagittal and coronal reformats were created on a separate workstation. Contrast used: mL of , (none if empty) Oral contrast used: without Oral Contrast (none if empty) FINDINGS: LOWER CHEST: Unremarkable ABDOMEN LIVER: Diffusely hypoattenuating parenchyma. GALLBLADDER AND BILE DUCTS: Gallbladder surgically absent. PANCREAS: Unremarkable. SPLEEN: Unremarkable. ADRENAL GLANDS: Unremarkable. KIDNEYS AND URETERS: No evidence of hydronephrosis or renal calculus. The ureters are unremarkable. Simple right renal cyst. PELVIS BLADDER: Unremarkable REPRODUCTIVE: Unremarkable. ABDOMEN & PELVIS STOMACH AND BOWEL: No evidence of bowel obstruction. Postsurgical changes of left upper quadrant sage l with small bowel feces at the anastomotic site. The colon extending away from this is relatively no ndistended. PERITONEUM/RETROPERITONEUM: No evidence of pneumoperitoneum or free fluid. VASCULATURE: No evidence of aortic aneurysm. MUSCULOSKELETAL: No acute osseous abnormalities, postsurgical changes of the spine at L3-S1. Discecto my at L3-L4. There is 2 sets of fixation rods on both sides L2-L3 and L4-L5. Postprocedural changes r ight posterior iliac bone. LYMPH NODES: No gross evidence for lymphadenopathy. SOFT TISSUE/ABDOMINAL WALL: Nerve stimulator battery pack with leads terminating in the thecal sac po steriorly. IMPRESSION: 1. No evidence for obstructive uropathy or renal calculus. Appendix is not definitively visualized. No evidence for acute right sided process. 2. Hepatic steatosis. 3. Postsurgical changes to the splenic flexure of the colon.
[2023-08-26 15:37] VITALS: BP 146/71; PULSE 96; TEMP 98.1
== END 2023-08-26 16:09 | disposition home or self-care (01) ==
LOC: EC 11:17
DX: M54.9 Dorsalgia, unspecified (principal); E11.9 Type 2 diabetes mellitus without complications; E78.5 Hyperlipidemia, unspecified; I25.10 Atherosclerotic heart disease of native coronary artery without angina pectoris; I25.2 Old myocardial infarction; I10 Essential (primary) hypertension; K21.9 Gastro-esophageal reflux disease without esophagitis; G47.30 Sleep apnea, unspecified; J45.909 Unspecified asthma, uncomplicated; Z79.4 Long term (current) use of insulin; Z79.82 Long term (current) use of aspirin; Z79.899 Other long term (current) drug therapy; Z88.5 Allergy status to narcotic agent; Z88.8 Allergy status to other drugs, medicaments and biological substances
CPT/HCPCS: 99285 ×2; 96374 ×2; 96375 ×2; 96376 ×3; 96361 ×5; 36415; 80053; 82150; 83690; 85025; 85610; 85730; 81001; 74176; J2405; J1170

== ENCOUNTER 2023-09-20 14:10 | Emergency (ER) | payer OTHER ==
--- NOTE | 2023-09-20 15:11 | ED ---
Back Pain [facility] - General Chief Complaint: Back Pain/Injury Stated Complaint: fall,back pain Time Seen by Provider: 09/20/23 14:40 Source: patient, RN notes reviewed Limitations: no limitations - History of Present Illness Initial Comments: 57-year-old male, with past medical history of a thoracic spinal cord stimulator, to the emergency department chief complaint of back pain. Patient states that he has had increasing back pain with bilateral lower extremity paresthesias worsening since yesterday evening. Patient states that he has taken Percocet, muscle relaxer, ibuprofen yesterday evening. Denies loss of bladder or bowel continence or recent injury. patient has follow-up appointment with neurology and spine surgeon at the end of this calendar month. - Related Data Home Medications Medication Instructions Recorded Confirmed Insulin Lispro [humaLOG Kwikpen] See Protocol SQ ACHS 06/16/21 05/20/23 oxyCODONE-APAP 5-325MG [Percocet 1 tab PO Q6H 09/12/21 05/20/23 5-325 mg] Gabapentin [Neurontin] 400 mg PO TID 12/25/21 05/20/23 Aspirin EC [Ecotrin Low Dose] 81 mg PO DAILY 05/23/22 05/20/23 Atorvastatin Calcium [Lipitor] 40 mg PO HS 05/23/22 05/20/23 Baclofen 10 mg PO TID 05/23/22 05/20/23 Insulin Glargine,Hum.rec.anlog 28 units SQ BID 10/20/22 05/20/23 [Lantus Solostar Pen] Dulaglutide [Trulicity] 0.75 mg SQ TH 03/10/23 05/20/23 NIFEdipine XL [Procardia XL] 30 mg PO DAILY 03/10/23 05/20/23 Omeprazole 20 mg PO BID 03/10/23 05/20/23 carvediloL [Coreg] 25 mg PO BID 03/10/23 05/20/23 Previous Rx's Medication Instructions Recorded Tamsulosin [Flomax] 0.4 mg PO PC-BRKFST 90 Days #90 cap 10/25/22 Budesonide [Pulmicort] 0.5 mg INHALATION RT-BID 30 Days 03/14/23 #60 ml Ipratropium-Albuterol Nebulize 3 ml INHALATION RT-QID 30 Days 03/14/23 [Duoneb 0.5 mg-3 mg/3 ml Soln] #120 each Ondansetron Odt [Zofran Odt] 4 mg PO Q8HR PRN #10 tab 07/10/23 Tamsulosin [Flomax] 0.4 mg PO DAILY #7 cap 07/10/23 Allergies Allergy/AdvReac Type Severity Reaction Status Date / Time doxycycline Allergy Swelling Verified 07/10/23 09:49 ketorolac tromethamine Allergy Rash/Hives Verified 07/10/23 09:49 [From Toradol] morphine Allergy Rash/Hives Verified 07/10/23 09:49 metoclopramide HCl AdvReac Dystonic Verified 07/10/23 09:49 [From Reglan] Reaction prochlorperazine edisylate AdvReac Dystonic Verified 07/10/23 09:49 [From Compazine] Reaction prochlorperazine maleate AdvReac Dystonic Verified 07/10/23 09:49 [From Compazine] Reaction Review of Systems ROS Statement: Those systems with pertinent positive or pertinent negative responses have been documented in the HPI. ROS Other: All systems not noted in ROS Statement are negative. Past Medical History Past Medical History: Asthma, Coronary Artery Disease (CAD), Chest Pain / Angina, Diabetes Mellitus, GERD/Reflux, GI Bleed, Hyperlipidemia, Hypertension, Myocardial Infarction (IA), Mitral Valve Prolapse (MVP), Pulmonary Embolus (PE), Sleep Apnea/CPAP/BIPAP Additional Past Medical History / Comment(s): Asthmatic bronchitis-chronic, IDDM type II, neuropathy bilateral feet, lower and upper GI bleeds, PUD, diverticulitis, colectomy d/t benign mass/intusseption, BPH, renal cysts, nephrolithiais, UTI with sepsis, chronic back pain 2ndary to herniated lumbar discs/sciatica, JARED does not use his Cpap, MVP, murmur, chronic dysphagia Last Myocardial Infarction Date:: 2011 History of Any Multi-Drug Resistant Organisms: C-DIFF, MRSA Date of last positivie culture/infection: 2015 MDRO Source:: left axilla Past Surgical History: Appendectomy, Back Surgery, Cholecystectomy, Heart Catheterization, Hernia Repair, Orthopedic Surgery Additional Past Surgical History / Comment(s): Lumbar decompression/fusion/laminectomy, spinal stimulator, T lift procedure, L inguinal hernia repair, multiple ESWLs/stents/double J caths, colonoscopy, 02/2020 colectomy, EGDs for food obstructions and dilations, NERVE STIMULATOR Past Anesthesia/Blood Transfusion Reactions: No Reported Reaction Past Psychological History: No Psychological Hx Reported Smoking Status: Never smoker Past Alcohol Use History: None Reported Past Drug Use History: None Reported - Past Family History Father Family Medical History: Chest Pain / Angina Additional Family Medical History / Comment(s): "lung problems" Mother Family Medical History: Blood Disorder, Cancer, Chest Pain / Angina, Congestive Heart Failure (CHF), Osteoarthritis (OA), Thyroid Disorder Additional Family Medical History / Comment(s): "obgyn specialist cancer" blood clots General Exam Limitations: no limitations General appearance: alert, in no apparent distress Head exam: Present: atraumatic, normocephalic, normal inspection Eye exam: Present: normal appearance, PERRL, EOMI. Absent: scleral icterus, conjunctival injection, periorbital swelling ENT exam: Present: normal exam, mucous membranes moist Neck exam: Present: normal inspection. Absent: tenderness, meningismus, lymphadenopathy Respiratory exam: Present: normal lung sounds bilaterally. Absent: respiratory distress, wheezes, rales, rhonchi, stridor Cardiovascular Exam: Present: regular rate, normal rhythm, normal heart sounds. Absent: systolic murmur, diastolic murmur, rubs, gallop, clicks GI/Abdominal exam: Present: soft, normal bowel sounds. Absent: distended, tenderness, guarding, rebound, rigid Extremities exam: Present: normal inspection, full ROM, normal capillary refill. Absent: tenderness, pedal edema, joint swelling, calf tenderness Back exam: Present: tenderness (lumbar and sacral ). Absent: CVA tenderness (R) Neurological exam: Present: alert, oriented X3, CN II-XII intact Psychiatric exam: Present: normal affect, normal mood Skin exam: Present: warm, dry, intact, normal color. Absent: rash Course Vital Signs 09/20/23 14:16 Temperature 98.3 F Pulse Rate 118 H Respiratory 20 Rate Blood Pressure 169/93 O2 Sat by Pulse 99 Oximetry Medical Decision Making - Medical Decision Making Was pt. sent in by a medical professional or institution (, PA, COMPOSING ROOM MACHINIST APPRENTICE, urgent care, hospital, or halfway...) When possible be specific @ -No Did you speak to anyone other than the patient for history (EMS, parent, family, police, friend...)? What history was obtained from this source @ -No Did you review nursing and triage notes (agree or disagree)? Why? @ -I reviewed and agree with nursing and triage notes Were old charts reviewed (outside hosp., previous admission, EMS record, old EKG, old radiological studies, urgent care reports/EKG's, halfway records)? Report findings @ -previous charts reviewed showing degenerative back changes Differential Diagnosis (chest pain, altered mental status, abdominal pain women, abdominal pain men, vaginal bleeding, weakness, fever, dyspnea, syncope, headache, dizziness, GI bleed, back pain, seizure, CVA, palpatations, mental health, musculoskeletal)? @ -Differential Musculoskeletal Muscular strain, contusion, ligament sprain, fracture, arthritis, septic arthritis, bursitis, cellulitis, muscle spasm, nerve compression, DVT, arterial occlusion, herpes zoster, electrolyte abnormality, tumor.... This is not meant to be in all inclusive list EKG interpreted by me (3pts min.). @ -None X-rays interpreted by me (1pt min.). @ -None done CT interpreted by me (1pt min.). @ -None done U/S interpreted by me (1pt. min.). @ -None done What testing was considered but not performed or refused? (CT, X-rays, U/S, labs)? Why? @ -None What meds were considered but not given or refused? Why? @ -None Did you discuss the management of the patient with other professionals (professionals i.e. , PA, COMPOSING ROOM MACHINIST APPRENTICE, lab, RT, psych nurse, school social worker, commissioned defence force officer, teacher, chief accounting officer, child welfare caseworker)? Give summary @ -No Was smoking cessation discussed for >3mins.? @ -No Was critical care preformed (if so, how long)? @ -No Were there social determinants of health that impacted care today? How? (Homelessness, low income, unemployed, alcoholism, drug addiction, transportation, low edu. Level, literacy, decrease access to med. care, fci, rehab)? @ -No Was there de-escalation of care discussed even if they declined (Discuss DNR or withdrawal of care, Hospice)? DNR status @ -No What co-morbidities impacted this encounter? (DM, HTN, Smoking, COPD, CAD, Cancer, CVA, ARF, Chemo, Hep., AIDS, mental health diagnosis, sleep apnea, morbid obesity)? @ -None Was patient admitted / discharged? Hospital course, mention meds given and route, prescriptions, significant lab abnormalities, going to OR and other pertinent info. @ -Discharged. 57-year-old male presents emergency department chief complaint of back pain. Due to patient's extensive history, and no recent injury and or trauma to the area, patient's pain has markedly improved after administration of Dilaudid. Patient is amendable and agreeable to discharge. Recommend follow-up with neurology and spine surgeon. Undiagnosed new problem with uncertain prognosis? @ -No Drug Therapy requiring intensive monitoring for toxicity (Heparin, Nitro, Insulin, Cardizem)? @ -No Were any procedures done? @ -No Diagnosis/symptom? @ -Back pain Acute, or Chronic, or Acute on Chronic? @ -chronic Uncomplicated (without systemic symptoms) or Complicated (systemic symptoms)? @ -Uncomplicated Side effects of treatment? @ -No Exacerbation, Progression, or Severe Exacerbation? @ -No Poses a threat to life or bodily function? How? (Chest pain, USA, IA, pneumonia, PE, COPD, DKA, ARF, appy, cholecystitis, CVA, Diverticulitis, Homicidal, Suicidal, threat to staff... and all critical care pts) @ -No Disposition Clinical Impression: Back pain of lumbar region with sciatica Narrative: Please return to the Emergency Department if symptoms worsen or any other concerns. Disposition: HOME SELF-CARE Condition: Good Instructions (If sedation given, give patient instructions): Acute Low Back Pain (ED) Is patient prescribed a controlled substance at d/c from ED?: No Referrals: Trav Muñiz MD [Primary Care Provider] - 1-2 days
[2023-09-20] MEDS: HYDROmorphone 1 MG/ML 1 ML SYRINGE IVP STA (16:17)
[2023-09-20] MEDS: HYDROmorphone 1 MG/ML 1 ML SYRINGE IM STA (16:17)
[2023-09-20 16:53] VITALS: RESP 18
[2023-09-20 17:55] VITALS: BP 161/115; PULSE 115; TEMP 98.1
== END 2023-09-20 17:36 | disposition home or self-care (01) ==
LOC: EC 14:10
DX: M54.40 Lumbago with sciatica, unspecified side (principal); Z90.49 Acquired absence of other specified parts of digestive tract
CPT/HCPCS: 99283; 96372; J1170

== ENCOUNTER 2023-11-13 19:10 | Emergency (ER) | payer OTHER ==
--- NOTE | 2023-11-13 19:18 | ED ---
General Adult HPI - General Source: patient Mode of arrival: EMS Limitations: no limitations <Dominick Garibay - Last Filed: 11/13/23 19:17> - General Source: RN notes reviewed, old records reviewed Mode of arrival: EMS Limitations: no limitations - History of Present Illness -: hour(s) Location: chest, back, abdomen Radiation: back Severity scale (1-10): 10 Quality: sharp Consistency: constant Improves with: none Worsens with: none Associated Symptoms: chest pain, weakness Treatments Prior to Arrival: none <Gatito Casas - Last Filed: 11/13/23 23:14> - General Stated complaint: Chest Pain Time Seen by Provider: 11/13/23 19:17 - History of Present Illness Initial comments: 58-year-old male presenting with chief complaint of chest pain. He stopped his blood thinner 3 days ago. (Dominick Garibay) This is a 58-year-old male to the ER for evaluation patient is well-known to our emergency department presenting today for evaluation of chest pain severe pain chronic pain recently off blood thinners (Gatito Casas) - Related Data Home Medications Medication Instructions Recorded Confirmed Insulin Lispro [humaLOG Kwikpen] See Protocol SQ ACHS 06/16/21 05/20/23 oxyCODONE-APAP 5-325MG [Percocet 1 tab PO Q6H 09/12/21 05/20/23 5-325 mg] Gabapentin [Neurontin] 400 mg PO TID 12/25/21 05/20/23 Aspirin EC [Ecotrin Low Dose] 81 mg PO DAILY 05/23/22 05/20/23 Atorvastatin Calcium [Lipitor] 40 mg PO HS 05/23/22 05/20/23 Baclofen 10 mg PO TID 05/23/22 05/20/23 Insulin Glargine,Hum.rec.anlog 28 units SQ BID 10/20/22 05/20/23 [Lantus Solostar Pen] Dulaglutide [Trulicity] 0.75 mg SQ TH 03/10/23 05/20/23 NIFEdipine XL [Procardia XL] 30 mg PO DAILY 03/10/23 05/20/23 Omeprazole 20 mg PO BID 03/10/23 05/20/23 carvediloL [Coreg] 25 mg PO BID 03/10/23 05/20/23 Previous Rx's Medication Instructions Recorded Tamsulosin [Flomax] 0.4 mg PO PC-BRKFST 90 Days #90 cap 10/25/22 Budesonide [Pulmicort] 0.5 mg INHALATION RT-BID 30 Days 03/14/23 #60 ml Ipratropium-Albuterol Nebulize 3 ml INHALATION RT-QID 30 Days 03/14/23 [Duoneb 0.5 mg-3 mg/3 ml Soln] #120 each Ondansetron Odt [Zofran Odt] 4 mg PO Q8HR PRN #10 tab 07/10/23 Tamsulosin [Flomax] 0.4 mg PO DAILY #7 cap 07/10/23 Allergies Allergy/AdvReac Type Severity Reaction Status Date / Time doxycycline Allergy Swelling Verified 11/13/23 19:17 ketorolac tromethamine Allergy Rash/Hives Verified 11/13/23 19:17 [From Toradol] morphine Allergy Rash/Hives Verified 11/13/23 19:17 metoclopramide HCl AdvReac Dystonic Verified 11/13/23 19:17 [From Reglan] Reaction prochlorperazine edisylate AdvReac Dystonic Verified 11/13/23 19:17 [From Compazine] Reaction prochlorperazine maleate AdvReac Dystonic Verified 11/13/23 19:17 [From Compazine] Reaction Review of Systems ROS Other: All systems not noted in ROS Statement are negative. <Dominick Garibay - Last Filed: 11/13/23 19:17> ROS Other: All systems not noted in ROS Statement are negative. <Gatito Casas - Last Filed: 11/13/23 23:14> ROS Statement: Those systems with pertinent positive or pertinent negative responses have been documented in the HPI. Past Medical History Past Medical History: Asthma, Coronary Artery Disease (CAD), Chest Pain / A ngina, Diabetes Mellitus, GERD/Reflux, GI Bleed, Hyperlipidemia, Hypertension, Myocardial Infarction (AR), Mitral Valve Prolapse (MVP), Pulmonary Embolus (PE), Sleep Apnea/CPAP/BIPAP Additional Past Medical History / Comment(s): Asthmatic bronchitis-chronic, IDDM type II, neuropathy bilateral feet, lower and upper GI bleeds, PUD, diverticulitis, colectomy d/t benign mass/intusseption, BPH, renal cysts, nephrolithiais, UTI with sepsis, chronic back pain 2ndary to herniated lumbar discs/sciatica, JARED does not use his Cpap, MVP, murmur, chronic dysphagia Last Myocardial Infarction Date:: 2011 History of Any Multi-Drug Resistant Organisms: C-DIFF, MRSA Date of last positivie culture/infection: 2015 MDRO Source:: left axilla Past Surgical History: Appendectomy, Back Surgery, Cholecystectomy, Heart Catheterization, Hernia Repair, Orthopedic Surgery Additional Past Surgical History / Comment(s): Lumbar decompression/fusion/laminectomy, spinal stimulator, T lift procedure, L inguinal hernia repair, multiple ESWLs/stents/double J caths, colonoscopy, 02/2020 colectomy, EGDs for food obstructions and dilations, NERVE STIMULATOR Past Anesthesia/Blood Transfusion Reactions: No Reported Reaction Past Psychological History: No Psychological Hx Reported Smoking Status: Never smoker Past Alcohol Use History: None Reported Past Drug Use History: None Reported - Past Family History Father Family Medical History: Chest Pain / Angina Additional Family Medical History / Comment(s): "lung problems" Mother Family Medical History: Blood Disorder, Cancer, Chest Pain / Angina, Congestive Heart Failure (CHF), Osteoarthritis (OA), Thyroid Disorder Additional Family Medical History / Comment(s): "telecommunications analyst cancer" blood clots <Dominick Garibay - Last Filed: 11/13/23 19:17> General Exam <Dominick Garibay - Last Filed: 11/13/23 19:17> General appearance: alert, in no apparent distress Head exam: Present: atraumatic, normocephalic, normal inspection Eye exam: Present: normal appearance, PERRL, EOMI. Absent: scleral icterus, conjunctival injection, periorbital swelling ENT exam: Present: normal exam, mucous membranes moist Neck exam: Present: normal inspection. Absent: tenderness, meningismus, lymphadenopathy Respiratory exam: Present: normal lung sounds bilaterally. Absent: respiratory distress, wheezes, rales, rhonchi, stridor Cardiovascular Exam: Present: regular rate, normal rhythm, normal heart sounds. Absent: systolic murmur, diastolic murmur, rubs, gallop, clicks GI/Abdominal exam: Present: soft, normal bowel sounds. Absent: distended, tenderness, guarding, rebound, rigid Extremities exam: Present: normal inspection, full ROM, normal capillary refill. Absent: tenderness, pedal edema, joint swelling, calf tenderness Back exam: Present: normal inspection Neurological exam: Present: alert, oriented X3, CN II-XII intact Psychiatric exam: Present: normal affect, normal mood Skin exam: Present: warm, dry, intact, normal color. Absent: rash <Gatito Casas - Last Filed: 11/13/23 23:14> - General Exam Comments Initial Comments: Visual Physical Exam Vital signs reviewed General: Well-appearing, nontoxic, no acute distress. Head: Normocephalic, atraumatic Eyes: PERRLA, EOMI ENT: Airway patent Chest: Nonlabored breathing Skin: No visual rash, normal skin tone Neuro: Alert and oriented 3 Musculoskeletal: No gross abnormalities (Dominick Garibay) Course <Gatito Casas - Last Filed: 11/13/23 23:14> Vital Signs 11/13/23 19:15 Temperature 98.1 F Pulse Rate 120 H Respiratory 24 Rate Blood Pressure 99/74 O2 Sat by Pulse 98 Oximetry - Reevaluation(s) Reevaluation #1: 11/13/23 23:13 Medical records reviewed (Gatito Casas) Reevaluation #2: 11/13/23 23:13 Patient symptoms are improved (Gatito Casas) Reevaluation #3: 11/13/23 23:13 Patient informed of results and questions answered (Gatito Casas) Reevaluation #4: 11/13/23 23:13 Was pt. sent in by a medical professional or institution (, PA, ADJUNCT ENGLISH INSTRUCTOR, urgent care, hospital, or group home...) When possible be specific @ -no Did you speak to anyone other than the patient for history (EMS, parent, family, police, friend...)? What history was obtained from this source @ -no Did you review nursing and triage notes (agree or disagree)? Why? @ -agree Are old charts reviewed (outside hosp., previous admission, EMS record, old EKG, old radiological studies, urgent care reports/EKG's, group home records)? Report findings @ -yes Differential Diagnosis (chest pain, altered mental status, abdominal pain women, abdominal pain men, vaginal bleeding, weakness, fever, dyspnea, syncope, headache, dizziness, GI bleed, back pain, seizure, CVA, palpatations, mental health, musculoskeletal)? @ -prior EKG interpreted by me (3pts min.). @ -yes X-rays interpreted by me (1pt min.). @ -yes negative for acute disease CT interpreted by me (1pt min.). @ -no U/S interpreted by me (1pt. min.). @ -no What testing was considered but not performed or refused? (CT, X-rays, U/S, labs)? Why? @ -none What meds were considered but not given or refused? Why? @ -none Did you discuss the management of the patient with other professionals (professionals i.e. , PA, ADJUNCT ENGLISH INSTRUCTOR, lab, RT, psych nurse, social services designee, animal ride manager, teacher, chairman and chief executive officer, case management director)? Give summary @ -no Was smoking cessation discussed for >3mins.? @ -no Was critical care preformed (if so, how long)? @ -no Were there social determinants of health that impacted care today? How? (Homelessness, low income, unemployed, alcoholism, drug addiction, transportation, low edu. Level, literacy, decrease access to med. care, long-term, rehab)? @ -none Was there de-escalation of care discussed even if they declined (Discuss DNR or withdrawal of care, Hospice)? DNR status @ -no What co-morbidities impacted this encounter? (DM, HTN, Smoking, COPD, CAD, Cancer, CVA, ARF, Chemo, Hep., AIDS, mental health diagnosis, sleep apnea, morbid obesity)? @ -none Was patient admitted / discharged? Hospital course, mention meds given and route, prescriptions, significant lab abnormalities, going to OR and other pertinent info. @ - Undiagnosed new problem with uncertain prognosis? @ -no Drug Therapy requiring intensive monitoring for toxicity (Heparin, Nitro, Insulin, Cardizem)? @ -no Were any procedures done? @ -no Diagnosis/symptom? @ - Acute, or Chronic, or Acute on Chronic? @ -Acute Uncomplicated (without systemic symptoms) or Complicated (systemic symptoms)? @ -Complicated Side effects of treatment? @ -no Exacerbation, Progression, or Severe Exacerbation? @ -exacerbation Poses a threat to life or bodily function? How? (Chest pain, USA, AR, pneumonia, PE, COPD, DKA, ARF, appy, cholecystitis, CVA, Diverticulitis, Homicidal, Suicidal, threat to staff... and all critical care pts) @ -yes (Gatito Casas) Reevaluation #5: Differential Chest Pain: Stable Angina, Unstable Angina, STEMI, NSTEMI Aortic Dissection, Pneumothorax, Musculoskeletal, Esophageal Spasm GERD, Cholecystitis, Pancreatitis, Zoster, this is not meant to be an all-inclusive list. (Gatito Casas) Medical Decision Making <Dominick Garibay - Last Filed: 11/13/23 19:17> - Radiology Data Radiology results: report reviewed (X-rays negative for acute disease), image reviewed <Gatito Casas - Last Filed: 11/13/23 23:14> - Medical Decision Making I performed the quick note portion of this visit, electronically signed Dominick Garibay PA-C (Dominick Garibay) 58 male to the ER for evaluation patient has adequate pain control here in the ER refusing further testing and labs, patient will be discharged home (Gatito Casas) Disposition <Dominick Garibay - Last Filed: 11/13/23 19:17> Is patient prescribed a controlled substance at d/c from ED?: No Time of Disposition: 22:00 <Gatito Casas - Last Filed: 11/13/23 23:14> Clinical Impression: Back pain, Atypical chest pain Disposition: HOME SELF-CARE Condition: Fair Instructions (If sedation given, give patient instructions): Chest Pain (ED) Referrals: González Muñiz MD [Primary Care Provider] - 1-2 days
[2023-11-13 19:32] VITALS: TEMP 98.1
--- NOTE | 2023-11-13 21:07 | XR ---
EXAMINATION TYPE: XR chest 2V DATE OF EXAM: 11/13/2023 COMPARISON: 05/20/2023 HISTORY: Chest pain TECHNIQUE: Frontal and lateral views of the chest are obtained. FINDINGS: There is no focal air space opacity, pleural effusion, or pneumothorax seen. The cardiac silhouette size is within normal limits. There is cervical spine fusion. There is a TENS unit in the lower thor acic spine. IMPRESSION: No acute cardiopulmonary process.
[2023-11-13] MEDS: diphenhydrAMINE 50 MG CAP PO STA (23:31)
[2023-11-13] MEDS: LIDOCAINE 4% PATCH TOPICAL ONE (23:31)
[2023-11-13] MEDS: HYDROmorphone 1 MG/ML 1 ML SYRINGE IM STA (23:32)
[2023-11-13 23:44] VITALS: BP 121/78; PULSE 115; RESP 20
== END 2023-11-13 23:46 | disposition home or self-care (01) ==
LOC: EC 19:10
DX: R07.89 Other chest pain (principal); M54.9 Dorsalgia, unspecified; Z88.5 Allergy status to narcotic agent; Z88.8 Allergy status to other drugs, medicaments and biological substances
CPT/HCPCS: 93005; 71046; 99285; 96372; J1170

== ENCOUNTER 2023-12-01 04:25 | Emergency (ER) | payer OTHER ==
--- NOTE | 2023-12-01 05:41 | ED ---
Back Pain HPI - General Chief Complaint: Back Pain/Injury Stated Complaint: Post-op complications Time Seen by Provider: 12/01/23 04:38 Source: patient, EMS Limitations: no limitations - History of Present Illness Initial Comments: Jim is a 58-year-old gentleman with a history chronic back pain. Patient is presents the ER today for evaluation of worsening pain at his surgical site. Patient reports he had his lumbar nerve stimulator replaced last week at a surgical center in [place]. Patient states that the dressing that was placed over the surgical site became saturated with fluid so he bought new dressings and over the past couple days he has noted increasing pain in that area. Patient states he has had some chills and felt flushed but has not checked his temperature at home. He is having worsening pain and developed nausea today. Patient tried to take his home oral pain medication last night and vomited it up. His pains been out of control so he came to the ER for further evaluation. - Related Data Home Medications Medication Instructions Recorded Confirmed Insulin Lispro [humaLOG Kwikpen] See Protocol SQ ACHS 06/16/21 05/20/23 oxyCODONE-APAP 5-325MG [Percocet 1 tab PO Q6H 09/12/21 05/20/23 5-325 mg] Gabapentin [Neurontin] 400 mg PO TID 12/25/21 05/20/23 Aspirin EC [Ecotrin Low Dose] 81 mg PO DAILY 05/23/22 05/20/23 Atorvastatin Calcium [Lipitor] 40 mg PO HS 05/23/22 05/20/23 Baclofen 10 mg PO TID 05/23/22 05/20/23 Insulin Glargine,Hum.rec.anlog 28 units SQ BID 10/20/22 05/20/23 [Lantus Solostar Pen] Dulaglutide [Trulicity] 0.75 mg SQ TH 03/10/23 05/20/23 NIFEdipine XL [Procardia XL] 30 mg PO DAILY 03/10/23 05/20/23 Omeprazole 20 mg PO BID 03/10/23 05/20/23 carvediloL [Coreg] 25 mg PO BID 03/10/23 05/20/23 Previous Rx's Medication Instructions Recorded Tamsulosin [Flomax] 0.4 mg PO PC-BRKFST 90 Days #90 cap 10/25/22 Budesonide [Pulmicort] 0.5 mg INHALATION RT-BID 30 Days 03/14/23 #60 ml Ipratropium-Albuterol Nebulize 3 ml INHALATION RT-QID 30 Days 03/14/23 [Duoneb 0.5 mg-3 mg/3 ml Soln] #120 each Ondansetron Odt [Zofran Odt] 4 mg PO Q8HR PRN #10 tab 07/10/23 Tamsulosin [Flomax] 0.4 mg PO DAILY #7 cap 07/10/23 Allergies Allergy/AdvReac Type Severity Reaction Status Date / Time doxycycline Allergy Swelling Verified 12/01/23 04:30 ketorolac tromethamine Allergy Rash/Hives Verified 12/01/23 04:30 [From Toradol] morphine Allergy Rash/Hives Verified 12/01/23 04:30 metoclopramide HCl AdvReac Dystonic Verified 12/01/23 04:30 [From Reglan] Reaction prochlorperazine edisylate AdvReac Dystonic Verified 12/01/23 04:30 [From Compazine] Reaction prochlorperazine maleate AdvReac Dystonic Verified 12/01/23 04:30 [From Compazine] Reaction Review of Systems ROS Statement: Those systems with pertinent positive or pertinent negative responses have been documented in the HPI. ROS Other: All systems not noted in ROS Statement are negative. Past Medical History Past Medical History: Asthma, Coronary Artery Disease (CAD), Chest Pain / Angina, Diabetes Mellitus, GERD/Reflux, GI Bleed, Hyperlipidemia, Hypertension, Myocardial Infarction (PR), Mitral Valve Prolapse (MVP), Pulmonary Embolus (PE), Sleep Apnea/CPAP/BIPAP Additional Past Medical History / Comment(s): Asthmatic bronchitis-chronic, IDDM type II, neuropathy bilateral feet, lower and upper GI bleeds, PUD, diverticulitis, colectomy d/t benign mass/intusseption, BPH, renal cysts, nephrolithiais, UTI with sepsis, chronic back pain 2ndary to herniated lumbar discs/sciatica, JARED does not use his Cpap, MVP, murmur, chronic dysphagia Last Myocardial Infarction Date:: 2011 History of Any Multi-Drug Resistant Organisms: C-DIFF, MRSA Date of last positivie culture/infection: 2015 MDRO Source:: left axilla Past Surgical History: Appendectomy, Back Surgery, Cholecystectomy, Heart Catheterization, Hernia Repair, Orthopedic Surgery Additional Past Surgical History / Comment(s): Lumbar decompression/fusion/lami nectomy, spinal stimulator, T lift procedure, L inguinal hernia repair, multiple ESWLs/stents/double J caths, colonoscopy, 02/2020 colectomy, EGDs for food obstructions and dilations, NERVE STIMULATOR Past Anesthesia/Blood Transfusion Reactions: No Reported Reaction Past Psychological History: No Psychological Hx Reported Smoking Status: Never smoker Past Alcohol Use History: None Reported Past Drug Use History: None Reported - Past Family History Father Family Medical History: Chest Pain / Angina Additional Family Medical History / Comment(s): "lung problems" Mother Family Medical History: Blood Disorder, Cancer, Chest Pain / Angina, Congestive Heart Failure (CHF), Osteoarthritis (OA), Thyroid Disorder Additional Family Medical History / Comment(s): "elephant tamer cancer" blood clots General Exam - General Exam Comments Initial Comments: Physical Exam GENERAL: Obese gentleman sitting on the cot appears uncomfortable nontoxic HENT: Normocephalic, Atraumatic. EYES: PERRL, EOMI PULMONARY: Unlabored respirations. No audible rales rhonchi or wheezing was noted. CARDIOVASCULAR: And well-perfused extremities ABDOMEN: Soft, nontender SKIN: Well-healing surgical incision over the left lower back, small amount of clear fluid can be extruded with palpation no purulent drainage. The surrounding skin is irritated appears to have a contact dermatitis in the shape of previous dressing : Deferred NEUROLOGIC: Patient is alert and oriented x3. Moving all extremities spontaneously MUSCULOSKELETAL: Normal extremities with adequate strength and full range of motion. No lower extremity swelling or edema. No calf tenderness. PSYCHIATRIC: Normal psychiatric evaluation. Limitations: no limitations Course Vital Signs 12/01/23 12/01/23 12/01/23 04:27 07:34 08:16 Temperature 97.9 F 98.0 F Pulse Rate 100 107 H 104 H Respiratory 20 18 16 Rate Blood Pressure 177/108 157/94 166/97 O2 Sat by Pulse 98 96 97 Oximetry Medical Decision Making - Medical Decision Making Was pt. sent in by a medical professional or institution (, PA, YARD ENGINEER, urgent care, hospital, or custodial...) When possible be specific @ -No Did you speak to anyone other than the patient for history (EMS, parent, family, police, friend...)? What history was obtained from this source @ -No Did you review nursing and triage notes (agree or disagree)? Why? @ -I reviewed and agree with nursing and triage notes Were old charts reviewed (outside hosp., previous admission, EMS record, old EKG, old radiological studies, urgent care reports/EKG's, custodial records)? Report findings @ -No old charts were reviewed Differential Diagnosis (chest pain, altered mental status, abdominal pain women, abdominal pain men, vaginal bleeding, weakness, fever, dyspnea, syncope, headache, dizziness, GI bleed, back pain, seizure, CVA, palpatations, mental health)? @ -Differential Back Pain: Strain, zoster, cauda equina syndrome, epidural abscess, vertebral osteomyelitis, discitis, fracture, subluxation, disc herniation, DJD, spinal stenosis, dissection, AAA, pancreatitis, peptic ulcer disease, pyelonephritis, kidney stone, this is not meant to be an all-inclusive list. EKG interpreted by me (3pts min.). @ -As above X-rays interpreted by me (1pt min.). @ -None done CT interpreted by me (1pt min.). @ -None done U/S interpreted by me (1pt. min.). @ -None done What testing was considered but not performed or refused? (CT, X-rays, U/S, labs)? Why? @ -None What meds were considered but not given or refused? Why? @ -None Did you discuss the management of the patient with other professionals (professionals i.e. , PA, YARD ENGINEER, lab, RT, psych nurse, social worker health services, replenishment merchandising associate, teacher, patrol community service officer, piano case and bench assembler)? Give summary @ -No Was smoking cessation discussed for >3mins.? @ -No Was critical care preformed (if so, how long)? @ -No Were there social determinants of health that impacted care today? How? (Homelessness, low income, unemployed, alcoholism, drug addiction, transportation, low edu. Level, literacy, decrease access to med. care, fci, rehab)? @ -No Was there de-escalation of care discussed even if they declined (Discuss DNR or withdrawal of care, Hospice)? DNR status @ -No What co-morbidities impacted this encounter? (DM, HTN, Smoking, COPD, CAD, Cancer, CVA, ARF, Chemo, Hep., AIDS, mental health diagnosis, sleep apnea, morbid obesity)? @ -None Was patient admitted / discharged? Hospital course, mention meds given and route, prescriptions, significant lab abnormalities, going to OR and other pertinent info. @ -Discharged Patient was seen and evaluated. Patient has chronic pain, pain worse after having his nerve stimulator replaced in his back. Surgical site is unremarkable there is no signs of infection though the patient does have some contact dermatitis from the adhesive from his dressing rashes and a perfectly square shape consistent with contact dermatitis. Labs were obtained and are unremarkable there is no leukocytosis CRP is not elevated I have very low suspicion for infection based on these findings. CT was obtained there is no signs of infection or fluid collection. Patient received a dose of pain medication and will be discharged home he states he can follow-up with his surgeon later today. Undiagnosed new problem with uncertain prognosis? @ -No Drug Therapy requiring intensive monitoring for toxicity (Heparin, Nitro, Insulin, Cardizem)? @ -No Were any procedures done? @ -No Diagnosis/symptom? @ -Acute on chronic back pain Acute, or Chronic, or Acute on Chronic? @ -Acute on chronic Uncomplicated (without systemic symptoms) or Complicated (systemic symptoms)? @ -Default Side effects of treatment? @ -No Exacerbation, Progression, or Severe Exacerbation? @ -No Poses a threat to life or bodily function? How? (Chest pain, USA, PR, pneumonia, PE, COPD, DKA, ARF, appy, cholecystitis, CVA, Diverticulitis, Homicidal, Suicidal, threat to staff... and all critical care pts) @ -No - Lab Data Result diagrams: 12/01/23 05:30 12/01/23 05:30 Lab Results 12/01/23 12/01/23 12/01/23 Range/Units 05:30 05:30 05:30 WBC 6.6 (3.8-10.6) k/uL RBC 4.98 (4.30-5.90) m/uL Hgb 14.2 (13.0-17.5) gm/dL Hct 43.4 (39.0-53.0) % MCV 87.2 (80.0-100.0) fL MCH 28.6 (25.0-35.0) pg MCHC 32.8 (31.0-37.0) g/dL RDW 13.5 (11.5-15.5) % Plt Count 255 (150-450) k/uL MPV 7.0 Neutrophils % 73 % Lymphocytes % 17 % Monocytes % 4 % Eosinophils % 3 % Basophils % 1 % Neutrophils # 4.9 (1.3-7.7) k/uL Lymphocytes # 1.2 (1.0-4.8) k/uL Monocytes # 0.3 (0-1.0) k/uL Eosinophils # 0.2 (0-0.7) k/uL Basophils # 0.0 (0-0.2) k/uL PT 9.3 L (10.0-12.5) sec INR 0.8 (<1.2) APTT 21.8 L (22.0-30.0) sec Sodium 135 L (137-145) mmol/L Potassium 4.3 (3.5-5.1) mmol/L Chloride 105 (98-107) mmol/L Carbon Dioxide 21 L (22-30) mmol/L Anion Gap 9 mmol/L BUN 14 (9-20) mg/dL Creatinine 0.45 L (0.66-1.25) mg/dL Est GFR (CKD-EPI)AfAm >90 (>60 ml/min/1.73 sqM) Est GFR (CKD-EPI)NonAf >90 (>60 ml/min/1.73 sqM) Glucose 366 H (74-99) mg/dL Plasma Lactic Acid Edd (0.7-2.0) mmol/L Calcium 9.5 (8.4-10.2) mg/dL Total Bilirubin 0.5 (0.2-1.3) mg/dL AST 23 (17-59) U/L ALT 52 H (4-49) U/L Alkaline Phosphatase 172 H (38-126) U/L C-Reactive Protein 0.5 (<1.0) mg/dL Total Protein 7.1 (6.3-8.2) g/dL Albumin 4.2 (3.5-5.0) g/dL Procalcitonin (0.02-0.09) ng/mL 05/24/24 05/24/24 Range/Units 05:30 05:30 WBC (3.8-10.6) k/uL RBC (4.30-5.90) m/uL Hgb (13.0-17.5) gm/dL Hct (39.0-53.0) % MCV (80.0-100.0) fL MCH (25.0-35.0) pg MCHC (31.0-37.0) g/dL RDW (11.5-15.5) % Plt Count (150-450) k/uL MPV Neutrophils % % Lymphocytes % % Monocytes % % Eosinophils % % Basophils % % Neutrophils # (1.3-7.7) k/uL Lymphocytes # (1.0-4.8) k/uL Monocytes # (0-1.0) k/uL Eosinophils # (0-0.7) k/uL Basophils # (0-0.2) k/uL PT (10.0-12.5) sec INR (<1.2) APTT (22.0-30.0) sec Sodium (137-145) mmol/L Potassium (3.5-5.1) mmol/L Chloride (98-107) mmol/L Carbon Dioxide (22-30) mmol/L Anion Gap mmol/L BUN (9-20) mg/dL Creatinine (0.66-1.25) mg/dL Est GFR (CKD-EPI)AfAm (>60 ml/min/1.73 sqM) Est GFR (CKD-EPI)NonAf (>60 ml/min/1.73 sqM) Glucose (74-99) mg/dL Plasma Lactic Acid Edd 1.6 (0.7-2.0) mmol/L Calcium (8.4-10.2) mg/dL Total Bilirubin (0.2-1.3) mg/dL AST (17-59) U/L ALT (4-49) U/L Alkaline Phosphatase (38-126) U/L C-Reactive Protein (<1.0) mg/dL Total Protein (6.3-8.2) g/dL Albumin (3.5-5.0) g/dL Procalcitonin 0.11 H (0.02-0.09) ng/mL Disposition Clinical Impression: Back pain Disposition: HOME SELF-CARE Condition: Stable Additional Instructions: Follow up with your surgeon Is patient prescribed a controlled substance at d/c from ED?: No Referrals: González Muñiz MD [Primary Care Provider] - 1-2 days
[2023-12-01 05:58] LABS: Basophils % (A) 1 %; Eosinophils # (A) 0.2 k/uL (0-0.7); Eosinophils % (A) 3 %; HCT 43.4 % (39.0-53.0); HGB 14.2 gm/dL (13.0-17.5); Lymphocytes # (A) 1.2 k/uL (1.0-4.8); Lymphocytes % (A) 17 %; MCH 28.6 pg (25.0-35.0); MCHC 32.8 g/dL (31.0-37.0); MCV 87.2 fL (80.0-100.0); Monocytes # (A) 0.3 k/uL (0-1.0); Monocytes % (A) 4 %; Neutrophils # (A) 4.9 k/uL (1.3-7.7); Neutrophils % (A) 73 %; Platelet Count 255 k/uL (150-450); RBC 4.98 m/uL (4.30-5.90); RDW 13.5 % (11.5-15.5); WBC 6.6 k/uL (3.8-10.6)
[2023-12-01] MEDS: SODIUM CHLORIDE 0.9% 500 ML 500 ML IV SCH (05:58)
[2023-12-01] MEDS: HYDROmorphone 0.5 MG/0.5 ML SYRINGE IVP STA ×2 (05:58→08:12)
[2023-12-01] MEDS: ONDANSETRON 4 MG/2 ML VIAL IVP STA (05:59)
[2023-12-01 06:11] LABS: ALT 52 U/L (4-49); AST 23 U/L (17-59); African American GFR (CKD) >90 (>60 ml/min/1.73 sqM); Albumin 4.2 g/dL (3.5-5.0); Alkaline Phosphatase 172 U/L (38-126); Anion Gap 9 mmol/L; Blood Urea Nitrogen 14 mg/dL (9-20); C Reactive Protein 0.5 mg/dL (<1.0); Calcium 9.5 mg/dL (8.4-10.2); Carbon Dioxide 21 mmol/L (22-30); Chloride 105 mmol/L (98-107); Glucose 366 mg/dL (74-99); Non-African American GFR(CKD) >90 (>60 ml/min/1.73 sqM); Potassium 4.3 mmol/L (3.5-5.1); Sodium 135 mmol/L (137-145); Total Bilirubin 0.5 mg/dL (0.2-1.3); Total Protein 7.1 g/dL (6.3-8.2)
[2023-12-01 06:15] LABS: INR 0.8 (<1.2); Prothrombin Time 9.3 sec (10.0-12.5)
[2023-12-01 06:16] LABS: Partial Thromboplastin Time 21.8 sec (22.0-30.0)
[2023-12-01 08:06] VITALS: TEMP 98
[2023-12-01 09:05] VITALS: BP 166/97; PULSE 104; RESP 16
--- NOTE | 2023-12-01 11:36 | CT ---
EXAMINATION TYPE: CT lumbar spine w con CT DLP: 1348.4 mGycm, Automated exposure control for dose reduction was used. DATE OF EXAM: 12/01/2023 11:25 AM COMPARISON: 05/09/2023. CLINICAL INDICATION:Male, 58 years old with history of pain s/p stimulator placement; PHH, Pain post op stimulator placement. TECHNIQUE: Multiple axial images were obtained from the midportion of T11 through the sacroiliac luis nts. Soft tissue and bone windows in coronal and sagittal planes were obtained and reviewed. 3-D ref ormats of the bones were created on a separate workstation and submitted for review. Contrast used:100 mL of Isovue 300 with IV Contrast, (None, if empty). Oral contrast used: (None, if empty). FINDINGS: Alignment: There are 5 lumbar type vertebral bodies within normal alignment. Bone: There are stimulator leads partially visualized and terminating in the posterior thecal sac. P ost surgical changes at L3-S1 with hardware intact. There is discectomy at L3-L4. Lumpectomy changes at L4 and L5. There is osseous fusion of the lateral elements bilaterally left greater than right. Ev idence of fracture. Multilevel osteophyte formation disc space narrowing and facet joint arthropathy. Discs: T12-L1: No spinal canal or neural foraminal stenosis is identified. L1-L2: No spinal canal or neural foraminal stenosis is identified. L2-L3: No spinal canal or neural foraminal stenosis is identified. L3-L4: Facet joint arthropathy and disc bulging result without significant spinal canal stenosis or n eural foraminal stenosis. L4-L5: Facet joint arthropathy and disc bulging result without significant spinal canal stenosis or n eural foraminal stenosis. L5-S1: Facet joint arthropathy and disc bulging result without significant spinal canal stenosis or n eural foraminal stenosis. Other: None IMPRESSION: 1. No evidence for spinal fracture. 2. Postsurgical changes with hardware intact. 3. Multilevel degeneration changes without evidence of significant spinal canal or neural foraminal stenosis. 4. There are stimulator leads terminating in the posterior thecal sac.
== END 2023-12-01 08:23 | disposition home or self-care (01) ==
LOC: EC 04:25
DX: G89.29 Other chronic pain (principal); M54.50 Low back pain, unspecified; L25.9 Unspecified contact dermatitis, unspecified cause; Z88.1 Allergy status to other antibiotic agents; Z88.6 Allergy status to analgesic agent; Z88.8 Allergy status to other drugs, medicaments and biological substances
CPT/HCPCS: 36415; 80053; 83605; 85025; 85610; 85730; 86140; 87040; 84145; 72132; 99285; 96374; 96375; 96376; 96361 ×2; J2405; J1170; Q9967

== ENCOUNTER 2024-01-08 12:08 | Emergency (ER) | payer OTHER ==
--- NOTE | 2024-01-08 12:38 | ED ---
General Adult HPI - General Chief complaint: Upper Respiratory Infection Stated complaint: Vomiting,Headache-Covid exp. Time Seen by Provider: 01/08/24 12:10 Source: patient, RN notes reviewed, old records reviewed Mode of arrival: ambulatory Limitations: no limitations - History of Present Illness Initial comments: This is a 58-year-old male presents to the emergency department stating that on Monday started having a sore throat and a mild headache. Patient states he continued to have a sore throat and a headache through the weekend and again to day he states he has a lot of bodyaches today as well. Patient states he also vomited twice this morning. Patient denies chest pain difficulty breathing. Patient states he did have a fever on Monday of 101.1. Patient states he did have an exposure to COVID. Patient denies any back pain. Patient denies abdominal pain. Patient denies any diarrhea. Patient denies any numbness or weakness - Related Data Home Medications Medication Instructions Recorded Confirmed Insulin Lispro [humaLOG Kwikpen] See Protocol SQ ACHS 06/16/21 05/20/23 oxyCODONE-APAP 5-325MG [Percocet 1 tab PO Q6H 09/12/21 05/20/23 5-325 mg] Gabapentin [Neurontin] 400 mg PO TID 12/25/21 05/20/23 Aspirin EC [Ecotrin Low Dose] 81 mg PO DAILY 05/23/22 05/20/23 Atorvastatin Calcium [Lipitor] 40 mg PO HS 05/23/22 05/20/23 Baclofen 10 mg PO TID 05/23/22 05/20/23 Insulin Glargine,Hum.rec.anlog 28 units SQ BID 10/20/22 05/20/23 [Lantus Solostar Pen] Dulaglutide [Trulicity] 0.75 mg SQ TH 03/10/23 05/20/23 NIFEdipine XL [Procardia XL] 30 mg PO DAILY 03/10/23 05/20/23 Omeprazole 20 mg PO BID 03/10/23 05/20/23 carvediloL [Coreg] 25 mg PO BID 03/10/23 05/20/23 Previous Rx's Medication Instructions Recorded Tamsulosin [Flomax] 0.4 mg PO PC-BRKFST 90 Days #90 cap 10/25/22 Budesonide [Pulmicort] 0.5 mg INHALATION RT-BID 30 Days 03/14/23 #60 ml Ipratropium-Albuterol Nebulize 3 ml INHALATION RT-QID 30 Days 03/14/23 [Duoneb 0.5 mg-3 mg/3 ml Soln] #120 each Ondansetron Odt [Zofran Odt] 4 mg PO Q8HR PRN #10 tab 07/10/23 Tamsulosin [Flomax] 0.4 mg PO DAILY #7 cap 07/10/23 Allergies Allergy/AdvReac Type Severity Reaction Status Date / Time doxycycline Allergy Swelling Verified 01/08/24 12:11 ketorolac tromethamine Allergy Rash/Hives Verified 01/08/24 12:11 [From Toradol] morphine Allergy Rash/Hives Verified 01/08/24 12:11 metoclopramide HCl AdvReac Dystonic Verified 01/08/24 12:11 [From Reglan] Reaction prochlorperazine edisylate AdvReac Dystonic Verified 01/08/24 12:11 [From Compazine] Reaction prochlorperazine maleate AdvReac Dystonic Verified 01/08/24 12:11 [From Compazine] Reaction Review of Systems ROS Statement: Those systems with pertinent positive or pertinent negative responses have been documented in the HPI. ROS Other: All systems not noted in ROS Statement are negative. Past Medical History Past Medical History: Asthma, Coronary Artery Disease (CAD), Chest Pain / Angina, Diabetes Mellitus, GERD/Reflux, GI Bleed, Hyperlipidemia, Hypertension, Myocardial Infarction (ME), Mitral Valve Prolapse (MVP), Pulmonary Embolus (PE), Sleep Apnea/CPAP/BIPAP Additional Past Medical History / Comment(s): Asthmatic bronchitis-chronic, IDDM type II, neuropathy bilateral feet, lower and upper GI bleeds, PUD, diverticulitis, colectomy d/t benign mass/intusseption, BPH, renal cysts, nephrolithiais, UTI with sepsis, chronic back pain 2ndary to herniated lumbar discs/sciatica, JARED does not use his Cpap, MVP, murmur, chronic dysphagia Last Myocardial Infarction Date:: 2011 History of Any Multi-Drug Resistant Organisms: C-DIFF, MRSA Date of last positivie culture/infection: 2015 MDRO Source:: left axilla Past Surgical History: Appendectomy, Back Surgery, Cholecystectomy, Heart Catheterization, Hernia Repair, Orthopedic Surgery Additional Past Surgical History / Comment(s): Lumbar decompression/fusion/laminectomy, spinal stimulator, T lift procedure, L inguinal hernia repair, multiple ESWLs/stents/double J caths, colonoscopy, 02/2020 colectomy, EGDs for food obstructions and dilations, NERVE STIMULATOR Past Anesthesia/Blood Transfusion Reactions: No Reported Reaction Past Psychological History: No Psychological Hx Reported Smoking Status: Never smoker Past Alcohol Use History: None Reported Past Drug Use History: None Reported - Past Family History Father Family Medical History: Chest Pain / Angina Additional Family Medical History / Comment(s): "lung problems" Mother Family Medical History: Blood Disorder, Cancer, Chest Pain / Angina, Congestive Heart Failure (CHF), Osteoarthritis (OA), Thyroid Disorder Additional Family Medical History / Comment(s): "obstetrician gynecologist cancer" blood clots General Exam - General Exam Comments Initial Comments: GENERAL: Patient is well-developed and well-nourished. Patient is nontoxic and well- hydrated and is in mild distress. ENT: Neck is soft and supple. No significant lymphadenopathy is noted. Oropharynx is clear. Moist mucous membranes. Neck has full range of motion without eliciting any pain. EYES: The sclera were anicteric and conjunctiva were pink and moist. Extraocular movements were intact and pupils were equal round and reactive to light. Eyel ids were unremarkable. PULMONARY: Unlabored respirations. Good breath sounds bilaterally. No audible rales rhonchi or wheezing was noted. CARDIOVASCULAR: There is a regular rate and rhythm without any murmurs gallops or rubs. ABDOMEN: Soft and nontender with normal bowel sounds. SKIN: Skin is clear with no lesions or rashes and otherwise unremarkable. NEUROLOGIC: Patient is alert and oriented x3. Cranial nerves II through XII are grossly intact. Motor and sensory are also intact. Normal speech, volume and content. Symmetrical smile. MUSCULOSKELETAL: Normal extremities with adequate strength and full range of motion. LYMPHATICS: No significant lymphadenopathy is noted PSYCHIATRIC: Normal psychiatric evaluation. Limitations: no limitations Course Vital Signs 01/08/24 01/08/24 12:09 13:59 Temperature 98 F Pulse Rate 104 H 84 Respiratory 22 14 Rate Blood Pressure 147/88 142/93 O2 Sat by Pulse 100 99 Oximetry Medical Decision Making - Medical Decision Making EKG is interpreted by myself EKG shows a sinus rhythm at 91 bpm. 157 QRS 120 QT interval 392 QTc is 441. Patient EKG shows no ST segment elevation or depressio n. Was pt. sent in by a medical professional or institution (MAGGIE Oliveros, NEWS ASSIGNMENT EDITOR, urgent care, hospital, or halfway...) When possible be specific @ -No Did you speak to anyone other than the patient for history (EMS, parent, family, police, friend...)? What history was obtained from this source @ -No Did you review nursing and triage notes (agree or disagree)? Why? @ -I reviewed and agree with nursing and triage notes Were old charts reviewed (outside hosp., previous admission, EMS record, old E KG, old radiological studies, urgent care reports/EKG's, halfway records)? Report findings @ -No old charts were reviewed Differential Diagnosis (chest pain, altered mental status, abdominal pain women, abdominal pain men, vaginal bleeding, weakness, fever, dyspnea, syncope, headache, dizziness, GI bleed, back pain, seizure, CVA, palpatations, mental health, musculoskeletal)? @ -Upper respiratory infection, strep throat, COVID, influenza, this is not an all-inclusive list EKG interpreted by me (3pts min.). @ -As above X-rays interpreted by me (1pt min.). @ -None done CT interpreted by me (1pt min.). @ -None done U/S interpreted by me (1pt. min.). @ -None done What testing was considered but not performed or refused? (CT, X-rays, U/S, labs)? Why? @ -None What meds were considered but not given or refused? Why? @ -None Did you discuss the management of the patient with other professionals (professionals i.e. MAGGIE Oliveros, NEWS ASSIGNMENT EDITOR, lab, RT, psych nurse, health and social care teacher, pluck trimmer, teacher, environmental protection officer, rehabilitation caseworker)? Give summary @ -No Was smoking cessation discussed for >3mins.? @ -No Was critical care preformed (if so, how long)? @ -No Were there social determinants of health that impacted care today? How? (Homelessness, low income, unemployed, alcoholism, drug addiction, transportatio n, low edu. Level, literacy, decrease access to med. care, senior care, rehab)? @ -No Was there de-escalation of care discussed even if they declined (Discuss DNR or withdrawal of care, Hospice)? DNR status @ -No What co-morbidities impacted this encounter? (DM, HTN, Smoking, COPD, CAD, Cancer, CVA, ARF, Chemo, Hep., AIDS, mental health diagnosis, sleep apnea, morbid obesity)? @ -None Was patient admitted / discharged? Hospital course, mention meds given and route, prescriptions, significant lab abnormalities, going to OR and other pertinent info. @ -Hospital course Undiagnosed new problem with uncertain prognosis? @ -No Drug Therapy requiring intensive monitoring for toxicity (Heparin, Nitro, Insu rosa, Cardizem)? @ -No Were any procedures done? @ -No Diagnosis/symptom? @ -COVID Acute, or Chronic, or Acute on Chronic? @ -Default Uncomplicated (without systemic symptoms) or Complicated (systemic symptoms)? @ -uncomplicated Side effects of treatment? @ -No Exacerbation, Progression, or Severe Exacerbation? @ -No Poses a threat to life or bodily function? How? (Chest pain, USA, ME, pneumonia, PE, COPD, DKA, ARF, appy, cholecystitis, CVA, Diverticulitis, Homicidal, Suicidal, threat to staff... and all critical care pts) @ -No - Lab Data Result diagrams: 01/08/24 12:38 01/08/24 12:38 Lab Results 01/08/24 01/08/24 01/08/24 Range/Units 12:38 12:38 13:35 WBC 3.9 (3.8-10.6) k/uL RBC 4.92 (4.30-5.90) m/uL Hgb 14.4 (13.0-17.5) gm/dL Hct 43.1 (39.0-53.0) % MCV 87.7 (80.0-100.0) fL MCH 29.3 (25.0-35.0) pg MCHC 33.3 (31.0-37.0) g/dL RDW 13.1 (11.5-15.5) % Plt Count 212 (150-450) k/uL MPV 7.3 Neutrophils % 56 % Lymphocytes % 34 % Monocytes % 6 % Eosinophils % 3 % Basophils % 1 % Neutrophils # 2.2 (1.3-7.7) k/uL Lymphocytes # 1.3 (1.0-4.8) k/uL Monocytes # 0.2 (0-1.0) k/uL Eosinophils # 0.1 (0-0.7) k/uL Basophils # 0.0 (0-0.2) k/uL Sodium 138 (137-145) mmol/L Potassium 4.1 (3.5-5.1) mmol/L Chloride 105 (98-107) mmol/L Carbon Dioxide 24 (22-30) mmol/L Anion Gap 9 mmol/L BUN 9 (9-20) mg/dL Creatinine 0.46 L (0.66-1.25) mg/dL Est GFR (CKD-EPI)AfAm >90 (>60 ml/min/1.73 sqM) Est GFR (CKD-EPI)NonAf >90 (>60 ml/min/1.73 sqM) Glucose 186 H (74-99) mg/dL Calcium 9.2 (8.4-10.2) mg/dL Total Bilirubin 1.0 (0.2-1.3) mg/dL AST 28 (17-59) U/L ALT 22 (4-49) U/L Alkaline Phosphatase 70 (38-126) U/L Total Protein 7.0 (6.3-8.2) g/dL Albumin 4.3 (3.5-5.0) g/dL Influenza Type A (PCR) Not Detected (Not Detectd) Influenza Type B (PCR) Not Detected (Not Detectd) RSV (PCR) Not Detected (Not Detectd) SARS-CoV-2 (PCR) Detected A (Not Detectd) Disposition Clinical Impression: COVID Disposition: HOME SELF-CARE Condition: Good Instructions (If sedation given, give patient instructions): COVID-19 (Coronavirus Disease 2019) (ED) Is patient prescribed a controlled substance at d/c from ED?: No Referrals: González Muñiz MD [Primary Care Provider] - 1-2 days Time of Disposition: 14:18
[2024-01-08] MEDS: ACETAMINOPHEN TAB 500 MG TAB PO STA (13:48)
[2024-01-08] MEDS: SODIUM CHLORIDE 0.9% 1,000 ML IV ONE (13:48)
[2024-01-08] MEDS: ONDANSETRON 4 MG/2 ML VIAL IVP STA (13:48)
[2024-01-08 13:56] LABS: Basophils % (A) 1 %; Eosinophils # (A) 0.1 k/uL (0-0.7); Eosinophils % (A) 3 %; HCT 43.1 % (39.0-53.0); HGB 14.4 gm/dL (13.0-17.5); Lymphocytes # (A) 1.3 k/uL (1.0-4.8); Lymphocytes % (A) 34 %; MCH 29.3 pg (25.0-35.0); MCHC 33.3 g/dL (31.0-37.0); MCV 87.7 fL (80.0-100.0); Mean Platelet Volume 7.3; Monocytes # (A) 0.2 k/uL (0-1.0); Monocytes % (A) 6 %; Neutrophils # (A) 2.2 k/uL (1.3-7.7); Neutrophils % (A) 56 %; Platelet Count 212 k/uL (150-450); RBC 4.92 m/uL (4.30-5.90); RDW 13.1 % (11.5-15.5); WBC 3.9 k/uL (3.8-10.6)
[2024-01-08 14:00] VITALS: PULSE 84
[2024-01-08 14:05] LABS: ALT 22 U/L (4-49); African American GFR (CKD) >90 (>60 ml/min/1.73 sqM); Albumin 4.3 g/dL (3.5-5.0); Anion Gap 9 mmol/L; Blood Urea Nitrogen 9 mg/dL (9-20); Calcium 9.2 mg/dL (8.4-10.2); Carbon Dioxide 24 mmol/L (22-30); Chloride 105 mmol/L (98-107); Glucose 186 mg/dL (74-99); Non-African American GFR(CKD) >90 (>60 ml/min/1.73 sqM); Sodium 138 mmol/L (137-145)
[2024-01-08 14:12] LABS: AST 28 U/L (17-59); Alkaline Phosphatase 70 U/L (38-126); Potassium 4.1 mmol/L (3.5-5.1)
[2024-01-08] MEDS: ONDANSETRON 4 MG ODT STARTER PACK 2 TAB BTL PO STA (14:53)
[2024-01-08 14:57] VITALS: BP 147/93; RESP 20; TEMP 97.5
== END 2024-01-08 15:00 | disposition home or self-care (01) ==
LOC: EC 12:08
DX: U07.1 COVID-19 (principal); Z88.6 Allergy status to analgesic agent; Z88.5 Allergy status to narcotic agent; Z88.8 Allergy status to other drugs, medicaments and biological substances
CPT/HCPCS: 36415; 93005; 80053; 85025; 87636; 99284; 96374; 96361; J2405

== ENCOUNTER 2024-02-10 14:18 | Emergency (ER) | payer OTHER ==
--- NOTE | 2024-02-10 14:34 | ED ---
General Adult HPI - General Source: patient, RN notes reviewed Mode of arrival: ambulatory Limitations: no limitations <Karson Silverman - Last Filed: 02/10/24 14:33> - General Source: patient, RN notes reviewed Mode of arrival: ambulatory Limitations: no limitations <Marielle Smith - Last Filed: 02/11/24 03:35> - General Stated complaint: fall-on thinners Time Seen by Provider: 02/10/24 14:23 - History of Present Illness Initial comments: Quick [id number] male presents emerged from after a fall. Patient has chronic back pain he states he fell today striking his head and neck region he states he is on Eliquis for blood clots. He states he is having issues with the stimulator in which she has been evaluated by neurosurgery. (Karson Silverman) 58-year-old male presented to ER with a chief complaint of a fall. Patient states while getting out of bed this morning his bilateral lower extremities went numb causing him to fall. He states he hit the right side of his neck. He denies any head injury, loss of consciousness. He does take Eliquis for blood clots. He denies any dizziness, lightheadedness, chest pain, shortness of breath prior to fall. He does state he has a neurostimulator in his back due to chronic back pain. He does state he is having issues and is following up with his surgeon on 02-20-2024. Patient has taken prescribed Percocet and Robaxin for pain relief prior to arrival. He denies any bowel or bladder incontinence, saddle paresthesias, fevers, chills, nausea, vomiting, cough, congestion, chest pain, shortness of breath, abdominal pain, constipation/diarrhea or peripheral edema. (Marielle Smith) - Related Data Home Medications Medication Instructions Recorded Confirmed Insulin Lispro [humaLOG Kwikpen] See Protocol SQ ACHS 06/16/21 05/20/23 oxyCODONE-APAP 5-325MG [Percocet 1 tab PO Q6H 09/12/21 05/20/23 5-325 mg] Gabapentin [Neurontin] 400 mg PO TID 12/25/21 05/20/23 Aspirin EC [Ecotrin Low Dose] 81 mg PO DAILY 05/23/22 05/20/23 Atorvastatin Calcium [Lipitor] 40 mg PO HS 05/23/22 05/20/23 Baclofen 10 mg PO TID 05/23/22 05/20/23 Insulin Glargine,Hum.rec.anlog 28 units SQ BID 10/20/22 05/20/23 [Lantus Solostar Pen] Dulaglutide [Trulicity] 0.75 mg SQ TH 03/10/23 05/20/23 NIFEdipine XL [Procardia XL] 30 mg PO DAILY 03/10/23 05/20/23 Omeprazole 20 mg PO BID 03/10/23 05/20/23 carvediloL [Coreg] 25 mg PO BID 03/10/23 05/20/23 Previous Rx's Medication Instructions Recorded Tamsulosin [Flomax] 0.4 mg PO PC-BRKFST 90 Days #90 cap 10/25/22 Budesonide [Pulmicort] 0.5 mg INHALATION RT-BID 30 Days 03/14/23 #60 ml Ipratropium-Albuterol Nebulize 3 ml INHALATION RT-QID 30 Days 03/14/23 [Duoneb 0.5 mg-3 mg/3 ml Soln] #120 each Ondansetron Odt [Zofran Odt] 4 mg PO Q8HR PRN #10 tab 07/10/23 Tamsulosin [Flomax] 0.4 mg PO DAILY #7 cap 07/10/23 Allergies Allergy/AdvReac Type Severity Reaction Status Date / Time doxycycline Allergy Swelling Verified 02/10/24 15:28 ketorolac tromethamine Allergy Rash/Hives Verified 02/10/24 15:28 [From Toradol] morphine Allergy Rash/Hives Verified 02/10/24 15:28 metoclopramide HCl AdvReac Dystonic Verified 02/10/24 15:28 [From Reglan] Reaction prochlorperazine edisylate AdvReac Dystonic Verified 02/10/24 15:28 [From Compazine] Reaction prochlorperazine maleate AdvReac Dystonic Verified 02/10/24 15:28 [From Compazine] Reaction Review of Systems ROS Other: All systems not noted in ROS Statement are negative. <Karson Silverman - Last Filed: 02/10/24 14:33> ROS Other: All systems not noted in ROS Statement are negative. <Marielle Smith - Last Filed: 02/11/24 03:35> ROS Statement: Those systems with pertinent positive or pertinent negative responses have been documented in the HPI. Past Medical History Past Medical History: Asthma, Coronary Artery Disease (CAD), Chest Pain / Angina, Diabetes Mellitus, GERD/Reflux, GI Bleed, Hyperlipidemia, Hypertension, Myocardial Infarction (OR), Mitral Valve Prolapse (MVP), Pulmonary Embolus (PE), Sleep Apnea/CPAP/BIPAP Additional Past Medical History / Comment(s): Asthmatic bronchitis-chronic, IDDM type II, neuropathy bilateral feet, lower and upper GI bleeds, PUD, diverticulitis, colectomy d/t benign mass/intusseption, BPH, renal cysts, nephrolithiais, UTI with sepsis, chronic back pain 2ndary to herniated lumbar discs/sciatica, JARED does not use his Cpap, MVP, murmur, chronic dysphagia Last Myocardial Infarction Date:: 2011 History of Any Multi-Drug Resistant Organisms: C-DIFF, MRSA Date of last positivie culture/infection: 2015 MDRO Source:: left axilla Past Surgical History: Appendectomy, Back Surgery, Cholecystectomy, Heart Catheterization, Hernia Repair, Orthopedic Surgery Additional Past Surgical History / Comment(s): Lumbar decompression/fusion/laminectomy, spinal stimulator, T lift procedure, L inguinal hernia repair, multiple ESWLs/stents/double J caths, colonoscopy, 02/2020 colectomy, EGDs for food obstructions and dilations, NERVE STIMULATOR Past Anesthesia/Blood Transfusion Reactions: No Reported Reaction Past Psychological History: No Psychological Hx Reported Smoking Status: Never smoker Past Alcohol Use History: None Reported Past Drug Use History: None Reported - Past Family History Father Family Medical History: Chest Pain / Angina Additional Family Medical History / Comment(s): "lung problems" Mother Family Medical History: Blood Disorder, Cancer, Chest Pain / Angina, Congestive Heart Failure (CHF), Osteoarthritis (OA), Thyroid Disorder Additional Family Medical History / Comment(s): "closet organizer cancer" blood clots <Karson Silverman - Last Filed: 02/10/24 14:33> General Exam <Karson Silverman - Last Filed: 02/10/24 14:33> Limitations: no limitations General appearance: alert, in no apparent distress Head exam: Present: atraumatic, normocephalic, normal inspection Eye exam: Present: normal appearance, PERRL, EOMI. Absent: scleral icterus, conjunctival injection, periorbital swelling ENT exam: Present: normal exam, mucous membranes moist Neck exam: Present: normal inspection. Absent: tenderness, meningismus, lymphadenopathy Respiratory exam: Present: normal lung sounds bilaterally. Absent: respiratory distress, wheezes, rales, rhonchi, stridor Cardiovascular Exam: Present: regular rate, normal rhythm, normal heart sounds. Absent: systolic murmur, diastolic murmur, rubs, gallop, clicks Extremities exam: Present: normal inspection, full ROM, normal capillary refill. Absent: tenderness, pedal edema, joint swelling, calf tenderness Back exam: Present: normal inspection, other (Healed midline surgical wounds sca r lumbar spine. No surrounding erythema or purulent drainage. 4 cm healed surgical scar to left lumbar region. No surrounding erythema or purulent drainage.) Neurological exam: Present: alert, oriented X3, CN II-XII intact Skin exam: Present: warm, dry, intact, normal color. Absent: rash <Marielle Smith - Last Filed: 02/11/24 03:35> - General Exam Comments Initial Comments: Visual Physical Exam Vital signs reviewed General: Well-appearing, nontoxic, no acute distress. Head: Normocephalic, atraumatic Eyes: PERRLA, EOMI ENT: Airway patent Chest: Nonlabored breathing Skin: No visual rash, normal skin tone Neuro: Alert and oriented 3 Musculoskeletal: No gross abnormalities (Karson Silverman) Course Vital Signs 02/10/24 02/10/24 15:25 16:36 Temperature 100.2 F H 98.4 F Pulse Rate 112 H 110 H Respiratory 20 18 Rate Blood Pressure 153/82 180/90 O2 Sat by Pulse 99 98 Oximetry Medical Decision Making <Karson Silverman - Last Filed: 02/10/24 14:33> - Radiology Data Radiology results: report reviewed, image reviewed <Marielle Smith - Last Filed: 02/11/24 03:35> - Medical Decision Making I completed the quick note portion of this chart signed Karson Silverman PA-C (Karson Silverman) Was pt. sent in by a medical professional or institution (MAGGIE Oliveros, INSTRUMENT MAKER AND REPAIRER, urgent care, hospital, or senior living...) When possible be specific @ -No Did you speak to anyone other than the patient for history (EMS, parent, family, police, friend...)? What history was obtained from this source @ -No Did you review nursing and triage notes (agree or disagree)? Why? @ -I reviewed and agree with nursing and triage notes Were old charts reviewed (outside hosp., previous admission, EMS record, old EKG, old radiological studies, urgent care reports/EKG's, senior living records)? Report findings @ -No old charts were reviewed Differential Diagnosis (chest pain, altered mental status, abdominal pain women, abdominal pain men, vaginal bleeding, weakness, fever, dyspnea, syncope, headache, dizziness, GI bleed, back pain, seizure, CVA, palpatations, mental health, musculoskeletal)? @ -Fracture, dislocation, contusion, hematoma, intracranial hemorrhage, concussion, abrasion, laceration this list does not like to be all-inclusive EKG interpreted by me (3pts min.). @ -None X-rays interpreted by me (1pt min.). @ -Lumbar spine x-rays interpreted by me negative for acute osseous process. CT interpreted by me (1pt min.). @ -CT brain C-spine negative for acute intracranial process. No acute fracture or malalignment of the cervical spine. U/S interpreted by me (1pt. min.). @ -None done What testing was considered but not performed or refused? (CT, X-rays, U/S, labs)? Why? @ -None What meds were considered but not given or refused? Why? @ -Refused analgesic medications. Did you discuss the management of the patient with other professionals (professionals i.e. , PA, INSTRUMENT MAKER AND REPAIRER, lab, RT, psych nurse, outreach and education social worker, corporate travel expert, teacher, desk officer, director case)? Give summary @ -No Was smoking cessation discussed for >3mins.? @ -No Was critical care preformed (if so, how long)? @ -No Were there social determinants of health that impacted care today? How? (Homelessness, low income, unemployed, alcoholism, drug addiction, transportat ion, low edu. Level, literacy, decrease access to med. care, halfway, rehab)? @ -No Was there de-escalation of care discussed even if they declined (Discuss DNR or withdrawal of care, Hospice)? DNR status @ -No What co-morbidities impacted this encounter? (DM, HTN, Smoking, COPD, CAD, Cancer, CVA, ARF, Chemo, Hep., AIDS, mental health diagnosis, sleep apnea, morbid obesity)? @ -None Was patient admitted / discharged? Hospital course, mention meds given and route, prescriptions, significant lab abnormalities, going to OR and other pertinent info. @ -Discharge. 58-year-old male presented to ER with a chief complaint of a fall. History and physical exam completed. Vitals stable. Patient no signs of acute distress and nontoxic-appearing. GCS of 15. No acute neurologic findings on exam. No red flag back pain symptoms indicative cauda equina syndrome. Bilateral upper and lower extremities neurovascular intact. CT brain C-spine negative for acute process. Lumbar spine x-rays also negative for acute process. Patient refused analgesic medications. Upon reevaluation, patient resting comfortably in exam room no signs of acute distress. Results discussed with patient, all questions answered. Advised close follow-up with PCP and neurosurgery specialist. Return parameters discussed. Patient discharged in stable condition. Patient verbally expressed understanding agree with care plan. Case discussed with ED attending, Dr. Gusman. Undiagnosed new problem with uncertain prognosis? @ -No Drug Therapy requiring intensive monitoring for toxicity (Heparin, Nitro, Insulin, Cardizem)? @ -No Were any procedures done? @ -No Diagnosis/symptom? @ -Fall/chronic back pain Acute, or Chronic, or Acute on Chronic? @ -Acute Uncomplicated (without systemic symptoms) or Complicated (systemic symptoms)? @ -Uncomplicated Side effects of treatment? @ -No Exacerbation, Progression, or Severe Exacerbation? @ -No Poses a threat to life or bodily function? How? (Chest pain, USA, OR, pneumonia, PE, COPD, DKA, ARF, appy, cholecystitis, CVA, Diverticulitis, Homicidal, Suicidal, threat to staff... and all critical care pts) @ -No (Marielle Smith) Disposition <Karson Silverman - Last Filed: 02/10/24 14:33> Is patient prescribed a controlled substance at d/c from ED?: No Time of Disposition: 16:34 <Marielle Smith - Last Filed: 02/11/24 03:35> Clinical Impression: Fall, Chronic back pain Disposition: HOME SELF-CARE Condition: Stable Instructions (If sedation given, give patient instructions): Fall Prevention for Older Adults (ED) Additional Instructions: Follow-up with PCP and casework specialist as scheduled. Return to the ER for any new or worsening concerns. Referrals: González Muñiz MD [Primary Care Provider] - 1-2 days
--- NOTE | 2024-02-10 15:12 | XR ---
EXAMINATION TYPE: XR lumbar spine 3V DATE OF EXAM: 02/10/2024 Comparison: 03/17/2023 Clinical History: 58-year-old male with low back pain after fall Findings: Cholecystectomy clips. Generator device projecting at the left lower back with leads extending up bey ond the [id number] at the midline. Post surgical change L3-S1 posterior and interbody fusion. Mild degenerative disc disease along the nonfused levels as well as yejn-rn-ygsosktt facet arthropathy. V ertebral body heights and alignment are obtained. Laminectomy change along the mid to lower lumbar sp ine. Impression: No vertebral compression collapse or malalignment. Similar postsurgical change L3-S1 posterior and in terbody fusion. Mild degenerative disc disease and mild to moderate facet arthropathy along the nonfu sed levels.
--- NOTE | 2024-02-10 15:48 | CT ---
EXAMINATION TYPE: CT brain luis a wo con DATE OF EXAM: 02/10/2024 COMPARISON: 04/19/2023 HISTORY: 58-year-old male pain after fall CT DLP: 1436.6 mGycm Automated exposure control for dose reduction was used. Technique: Examination of the head was done in axial plane without intravenous contrast. Coronal and sagittal reconstructions performed. CT of the cervical spine was obtained in axial plane without intravenous injection of contrast mater ial. Coronal and sagittal reformatted images were obtained from the axial views for evaluation of f ractures, spinal alignment and canal. FINDINGS: Head: There is no evidence of acute intracranial hemorrhage, acute ischemic changes, mass, mass-effect, or extra-axial fluid collection. There is no effacement of cerebral sulci or basal subarachnoid cister ns. There is no hydrocephalus. There is no midline shift. Street-white matter distinction is preserv ed. Lobulated mucosal thickening floor of the right maxillary sinus. Mastoid air cells are well pneumatiz ed. Orbits and globes are intact. Cervical spine: No previous cervical junction anomaly, predental space widening, or prevertebral soft tissue swelling . Degenerative change of the C1 dens articulation. Mild degenerative disc disease throughout. Previous intervertebral disc prostheses at C4-C5 and C5-C6 . Hypertrophic facet arthropathy especially toward the left in the mid cervical spine. No acute fracture seen. Moderate bilateral neuroforaminal stenoses at C5-C6 and C6-C7. Sagittal and coronal reformatted images confirm above findings. COMBINED IMPRESSION: 1. No acute intracranial abnormality seen. 2. No acute fracture or malalignment of the cervical spine. Mild to moderate spondylotic change. Prev ious intervertebral disc prostheses at C4-C5 and C5-C6.
[2024-02-10 16:41] VITALS: BP 180/90; PULSE 110; RESP 18; TEMP 98.4
== END 2024-02-10 16:46 | disposition home or self-care (01) ==
LOC: EC 14:18
CPT/HCPCS: 70450; 72100; 72125; 99284

== ENCOUNTER 2024-02-12 21:53 | Emergency (ER) | payer OTHER ==
[2024-02-13] MEDS ORDERED: MORPHINE SULFATE 4 MG/ML SYRINGE ONE (02:45)
[2024-02-13] MEDS ORDERED: oxyCODONE-APAP 10-325MG 1 EACH TAB ONE (03:01)
[2024-02-13] MEDS ORDERED: oxyCODONE-APAP 7.5-325MG 1 EACH TAB ONE (07:50)
== END 2024-02-13 08:00 | disposition home or self-care (01) ==
LOC: EC 21:53
DX: G89.29 Other chronic pain (principal); M54.50 Low back pain, unspecified
CPT/HCPCS: 99283

== ENCOUNTER 2024-03-07 12:41 | Emergency (ER) | payer OTHER ==
[2024-03-07 13:03] VITALS: RESP 18
--- NOTE | 2024-03-07 13:03 | ED ---
Fall HPI - General Chief Complaint: Fall Stated Complaint: Fall/Back Pain Time Seen by Provider: 03/07/24 13:00 Source: patient, RN notes reviewed, old records reviewed Mode of arrival: ambulatory - History of Present Illness Initial Comments: This is a 58-year-old male well-known to this emergency department. Patient had a trip and fall mechanical fall today landing on his back and spine. 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 Fall Witnessed: no Place Fall Occurred: home Loss of Consciousness: none Prolonged Down Time?: no Symptoms Prior to Fall: none Location: head, chest, back, pelvis Quality: sharp Context: tripped/slipped Associated Symptoms: denies - Related Data Home Medications Medication Instructions Recorded Confirmed Insulin Lispro [humaLOG Kwikpen] See Protocol SQ ACHS 06/16/21 05/20/23 oxyCODONE-APAP 5-325MG [Percocet 1 tab PO Q6H 09/12/21 05/20/23 5-325 mg] Gabapentin [Neurontin] 400 mg PO TID 12/25/21 05/20/23 Aspirin EC [Ecotrin Low Dose] 81 mg PO DAILY 05/23/22 05/20/23 Atorvastatin Calcium [Lipitor] 40 mg PO HS 05/23/22 05/20/23 Baclofen 10 mg PO TID 05/23/22 05/20/23 Insulin Glargine,Hum.rec.anlog 28 units SQ BID 10/20/22 05/20/23 [Lantus Solostar Pen] Dulaglutide [Trulicity] 0.75 mg SQ TH 03/10/23 05/20/23 NIFEdipine XL [Procardia XL] 30 mg PO DAILY 03/10/23 05/20/23 Omeprazole 20 mg PO BID 03/10/23 05/20/23 carvediloL [Coreg] 25 mg PO BID 03/10/23 05/20/23 Previous Rx's Medication Instructions Recorded Tamsulosin [Flomax] 0.4 mg PO PC-BRKFST 90 Days #90 cap 10/25/22 Budesonide [Pulmicort] 0.5 mg INHALATION RT-BID 30 Days 03/14/23 #60 ml Ipratropium-Albuterol Nebulize 3 ml INHALATION RT-QID 30 Days 03/14/23 [Duoneb 0.5 mg-3 mg/3 ml Soln] #120 each Ondansetron Odt [Zofran Odt] 4 mg PO Q8HR PRN #10 tab 07/10/23 Tamsulosin [Flomax] 0.4 mg PO DAILY #7 cap 07/10/23 Allergies Allergy/AdvReac Type Severity Reaction Status Date / Time doxycycline Allergy Swelling Verified 02/10/24 15:28 ketorolac tromethamine Allergy Rash/Hives Verified 02/10/24 15:28 [From Toradol] morphine Allergy Rash/Hives Verified 02/10/24 15:28 metoclopramide HCl AdvReac Dystonic Verified 02/10/24 15:28 [From Reglan] Reaction prochlorperazine edisylate AdvReac Dystonic Verified 02/10/24 15:28 [From Compazine] Reaction prochlorperazine maleate AdvReac Dystonic Verified 02/10/24 15:28 [From Compazine] Reaction Review of Systems ROS Statement: Those systems with pertinent positive or pertinent negative responses have been documented in the HPI. ROS Other: All systems not noted in ROS Statement are negative. Past Medical History Past Medical History: Asthma, Coronary Artery Disease (CAD), Chest Pain / Angina, Diabetes Mellitus, GERD/Reflux, GI Bleed, Hyperlipidemia, Hypertension, Myocardial Infarction (ID), Mitral Valve Prolapse (MVP), Pulmonary Embolus (PE), Sleep Apnea/CPAP/BIPAP Additional Past Medical History / Comment(s): Asthmatic bronchitis-chronic, IDDM type II, neuropathy bilateral feet, lower and upper GI bleeds, PUD, diverticulitis, colectomy d/t benign mass/intusseption, BPH, renal cysts, nephrolithiais, UTI with sepsis, chronic back pain 2ndary to herniated lumbar discs/sciatica, JARED does not use his Cpap, MVP, murmur, chronic dysphagia Last Myocardial Infarction Date:: 2011 History of Any Multi-Drug Resistant Organisms: C-DIFF, MRSA Date of last positivie culture/infection: 2015 MDRO Source:: left axilla Past Surgical History: Appendectomy, Back Surgery, Cholecystectomy, Heart Catheterization, Hernia Repair, Orthopedic Surgery Additional Past Surgical History / Comment(s): Lumbar decompression/fusion/laminectomy, spinal stimulator, T lift procedure, L inguinal hernia repair, multiple ESWLs/stents/double J caths, colonoscopy, 02/2020 colectomy, EGDs for food obstructions and dilations, NERVE STIMULATOR Past Anesthesia/Blood Transfusion Reactions: No Reported Reaction Past Psychological History: No Psychological Hx Reported Smoking Status: Never smoker Past Alcohol Use History: None Reported Past Drug Use History: None Reported - Past Family History Father Family Medical History: Chest Pain / Angina Additional Family Medical History / Comment(s): "lung problems" Mother Family Medical History: Blood Disorder, Cancer, Chest Pain / Angina, Congestive Heart Failure (CHF), Osteoarthritis (OA), Thyroid Disorder Additional Family Medical History / Comment(s): "special needs babysitter cancer" blood clots General Exam Limitations: no limitations General appearance: alert, in no apparent distress Head exam: Present: atraumatic, normocephalic, normal inspection Eye exam: Present: normal appearance, PERRL, EOMI. Absent: scleral icterus, conjunctival injection, periorbital swelling ENT exam: Present: normal exam, mucous membranes moist Neck exam: Present: normal inspection. Absent: tenderness, meningismus, lymphadenopathy Respiratory exam: Present: normal lung sounds bilaterally. Absent: respiratory distress, wheezes, rales, rhonchi, stridor Cardiovascular Exam: Present: regular rate, normal rhythm, normal heart sounds. Absent: systolic murmur, diastolic murmur, rubs, gallop, clicks GI/Abdominal exam: Present: soft, normal bowel sounds. Absent: distended, tenderness, guarding, rebound, rigid Extremities exam: Present: normal inspection, full ROM, normal capillary refill. Absent: tenderness, pedal edema, joint swelling, calf tenderness Back exam: Present: normal inspection Neurological exam: Present: alert, oriented X3, CN II-XII intact Psychiatric exam: Present: normal affect, normal mood Skin exam: Present: warm, dry, intact, normal color. Absent: rash Course Vital Signs 03/07/24 03/07/24 12:59 16:33 Temperature 98 F 98.7 F Pulse Rate 108 H 111 H Respiratory 18 18 Rate Blood Pressure 176/108 154/96 O2 Sat by Pulse 99 97 Oximetry - Reevaluation(s) Reevaluation #1: 08/29/24 16:36 Medical records reviewed Reevaluation #2: 03/07/24 16:36 Patient's pain is improved Reevaluation #3: 03/07/24 16:36 Patient informed of results and questions answered Reevaluation #4: Was pt. sent in by a medical professional or institution (, [facility], MEDIA CENTER ASSISTANT, urgent care, hospital, or half-way...) When possible be specific @ -no Did you speak to anyone other than the patient for history (EMS, parent, family, police, friend...)? What history was obtained from this source @ -no Did you review nursing and triage notes (agree or disagree)? Why? @ -agree Are old charts reviewed (outside hosp., previous admission, EMS record, old EKG, old radiological studies, urgent care reports/EKG's, half-way records)? Report findings @ -yes Differential Diagnosis (chest pain, altered mental status, abdominal pain women, abdominal pain men, vaginal bleeding, weakness, fever, dyspnea, syncope, headache, dizziness, GI bleed, back pain, seizure, CVA, palpatations, mental health, musculoskeletal)? @ -prior EKG interpreted by me (3pts min.). @ -no X-rays interpreted by me (1pt min.). @ -no CT interpreted by me (1pt min.). @ -yes negative for acute disease U/S interpreted by me (1pt. min.). @ -no What testing was considered but not performed or refused? (CT, X-rays, U/S, labs)? Why? @ -none What meds were considered but not given or refused? Why? @ -none Did you discuss the management of the patient with other professionals (professionals i.e. MAGGIE Oliveros, MEDIA CENTER ASSISTANT, lab, RT, psych nurse, healthcare social worker, button facing machine operator, teacher, loss prevention officer, egg caser)? Give summary @ -no Was smoking cessation discussed for >3mins.? @ -no Was critical care preformed (if so, how long)? @ -no Were there social determinants of health that impacted care today? How? (Homelessness, low income, unemployed, alcoholism, drug addiction, transportation, low edu. Level, literacy, decrease access to med. care, longterm, rehab)? @ -none Was there de-escalation of care discussed even if they declined (Discuss DNR or withdrawal of care, Hospice)? DNR status @ -no What co-morbidities impacted this encounter? (DM, HTN, Smoking, COPD, CAD, Cancer, CVA, ARF, Chemo, Hep., AIDS, mental health diagnosis, sleep apnea, morbid obesity)? @ -none Was patient admitted / discharged? Hospital course, mention meds given and route, prescriptions, significant lab abnormalities, going to OR and other pertinent info. @ - 58 male to ER for evaluation of a fall fall from standing back pain thoracic back pain with minor head injury. Patient is on Eliquis, patient has negative imaging here in the ER and can be discharged home Discharge Undiagnosed new problem with uncertain prognosis? @ -no Drug Therapy requiring intensive monitoring for toxicity (Heparin, Nitro, Insulin, Cardizem)? @ -no Were any procedures done? @ -no Diagnosis/symptom? @ -Back pain Acute, or Chronic, or Acute on Chronic? @ -Acute Uncomplicated (without systemic symptoms) or Complicated (systemic symptoms)? @ -Complicated Side effects of treatment? @ -no Exacerbation, Progression, or Severe Exacerbation? @ -exacerbation Poses a threat to life or bodily function? How? (Chest pain, USA, ID, pneumonia, PE, COPD, DKA, ARF, appy, cholecystitis, CVA, Diverticulitis, Homicidal, Suicidal, threat to staff... and all critical care pts) @ -yes severe back issues Reevaluation #5: Differential Back Pain: Strain, zoster, cauda equina syndrome, epidural abscess, vertebral osteomyelitis, discitis, fracture, subluxation, disc herniation, DJD, spinal stenosis, dissection, AAA, pancreatitis, peptic ulcer disease, pyelonephritis, kidney stone, this is not meant to be an all-inclusive list. Medical Decision Making - Medical Decision Making 58 male to ER for evaluation of a fall fall from standing back pain thoracic back pain with minor head injury. Patient is on Eliquis, patient has negative imaging here in the ER and can be discharged home - Radiology Data Radiology results: report reviewed (CT brain C-spine and thoracolumbar spine negative for traumatic injury), image reviewed Disposition Clinical Impression: Fall Disposition: HOME SELF-CARE Condition: Fair Instructions (If sedation given, give patient instructions): Fall Prevention for Older Adults (ED) Is patient prescribed a controlled substance at d/c from ED?: No Referrals: González Muñiz MD [Primary Care Provider] - 1-2 days Time of Disposition: 15:30
[2024-03-07] MEDS: HYDROmorphone 1 MG/ML 1 ML SYRINGE IM STA ×2 (14:09→16:19)
--- NOTE | 2024-03-07 15:16 | CT ---
EXAMINATION TYPE: CT brain cspine wo con CT DLP: 1883 mGycm, Automated exposure control for dose reduction was used. DATE OF EXAM: 03/07/2024 3:06 PM COMPARISON: CT brain C-spine 02/10/2024. CLINICAL INDICATION:Male, 58 years old with history of fall; fall TECHNIQUE: Brain: Multiple axial CT images of the brain were obtained without IV contrast. Cspine: Axial CT images from the skull base to the inferior aspect of T2 we obtained without intraven ous contrast. Coronal and sagittal reformatted images were also reviewed. FINDINGS: Brain: Extra-axial spaces: No abnormal extra-axial fluid collections. Ventricular system: Within normal limits Cerebral parenchyma: No acute intraparenchymal hemorrhage or mass effect. The wu-white junction is well differentiated. Cerebellum: Unremarkable. Mass effect: No evidence of midline shift. Intracranial vasculature: unremarkable Soft tissues: Normal. Calvarium/osseous structures: No depressed skull fracture. Paranasal sinuses and mastoid air cells: Mastoid air cells are clear. Right inferior maxillary sinus 1.5 cm a tendinosis with adjacent minimal mucosal thickening. Visualized orbits: Orbital contents are intact. Cervical spine: Fracture: None. Osseous structures: Mild degenerative disc disease throughout. Previous intervertebral disc prosthesi s at C4-C5 and C5-C6. Hypertrophic facet arthropathy especially towards the left in the mid cervical spine. Incomplete fusion of the posterior arch of C1. Degenerative changes of the C1 dens articulatio n. Vertebral alignment: Within normal limits. Spinal canal/Neural Foramina: Moderate bilateral neuroforaminal stenosis at C5-C6 and C6-C7. No signi ficant central canal stenosis. Neck soft tissues: Prevertebral soft tissues are within normal limits. Enlarged submandibular and sub mental lymph nodes measuring up to 9 mm short axis. Other: The airway is patent. The lung apices are clear. IMPRESSION: 1. No acute intracranial process. 2. No evidence of cervical spine fracture. 3. Mild multilevel degenerative disc disease. Previous intravertebral disc prosthesis at C4-C5 and C 5-C6. 4. Nonspecific mildly enlarged submandibular and submental lymph nodes.
--- NOTE | 2024-03-07 15:27 | CT ---
EXAMINATION TYPE: CT thor lumbar spine wo con CT DLP: 1383.5 mGycm, Automated exposure control for dose reduction was used. DATE OF EXAM: 03/07/2024 3:08 PM CLINICAL INDICATION:Male, 58 years old with history of fall; back pain, fall COMPARISON: CT thoracolumbar spine 05/09/2023, CT lumbar spine 12/01/2023. TECHNIQUE: Axial images of the thoracic and lumbar spine were obtained without contrast. Coronal and sagittal reformats were performed. CT Contrast: Contrast used: none. Oral contrast used: none. FINDINGS: Thoracic: There is some DISH within the mid thoracic spine. The thoracic vertebral bodies have preserved heigh ts and alignment. Spinal stimulator array centered along the lower thoracic spine canal with leads en tering via the T11-T12 intralaminar space. Facet arthropathy of the right lower thoracic spine redemo nstrated. Results in moderate neural foraminal stenosis on the right at T1-T2 and on the left at T4-T 5 and T10-T11. I do not see any evidence of extradural defects nor significant spinal canal narrowing at any thoraci c vertebral body level. Please refer to CT cervical spine for findings related to the cervical spine of the same day. Visualized lungs are clear. Fatty infiltration of the visualized liver. Right renal 3.8 cm cyst. Lumbar: Alignment: There are 5 lumbar type vertebral bodies within normal alignment. Bone: No evidence of fracture is identified. Postsurgical changes at L3-S1 with hardware intact. Dis cectomy at L3-L4. Laminectomy changes at L5. Osseous fusion of the lateral, and bilaterally with left or the right. Multilevel osteophyte formation with disc space narrowing and facet joint arthropathy. Bone marrow signal the right iliac bone. Partial visualization of left gluteal neurostimulator power pack. Discs: Evaluation is limited due to streak artifact from lumbar hardware. T12-L1: No spinal canal or neural foraminal stenosis is identified. L1-L2: No spinal canal or neural foraminal stenosis is identified. L2-L3: No spinal canal or neural foraminal stenosis is identified. L3-L4: Disc spacer. Facet joint arthropathy without significant spinal canal stenosis or neural oz inal stenosis. L4-L5: Facet joint arthropathy without significant spinal canal stenosis. Mild right neural foramina l stenosis. The left neural foramen is patent. L5-S1: Facet joint arthropathy without significant spinal canal stenosis or neural foraminal stenosis . IMPRESSION: 1. No evidence of fracture of the thoracolumbar spine. 2. Postsurgical changes of L3-S1 with laminectomy at L5. Hardware is intact with appropriate alignmen t. 3. Multilevel degenerative changes without significant spinal canal stenosis.
[2024-03-07 16:42] VITALS: BP 154/96; PULSE 111; TEMP 98.7
== END 2024-03-07 16:42 | disposition home or self-care (01) ==
LOC: EC 12:41
DX: R52 Pain, unspecified
CPT/HCPCS: 70450; 72125; 72128; 72131; 96372; 99284

== ENCOUNTER 2024-03-25 13:19 | Emergency (ER) | payer OTHER ==
[2024-03-25 13:27] VITALS: RESP 18; TEMP 99
[2024-03-25 13:27] LABS: Glucose,Whole Blood 324 mg/dL (70-110)
[2024-03-25] MEDS: HYDROmorphone 0.5 MG/0.5 ML SYRINGE IVP STA ×2 (14:00→16:52)
[2024-03-25] MEDS: SODIUM CHLORIDE 0.9% 1,000 ML IV ONE (14:00)
[2024-03-25 14:06] LABS: VBG PH 7.44 (7.31-7.41)
[2024-03-25 14:07] LABS: Basophils % (A) 1 %; Eosinophils # (A) 0.1 k/uL (0-0.7); Eosinophils % (A) 2 %; HCT 43.7 % (39.0-53.0); HGB 14.5 gm/dL (13.0-17.5); Lymphocytes # (A) 0.9 k/uL (1.0-4.8); Lymphocytes % (A) 14 %; MCH 29.1 pg (25.0-35.0); MCHC 33.1 g/dL (31.0-37.0); Mean Platelet Volume 6.8; Monocytes # (A) 0.2 k/uL (0-1.0); Monocytes % (A) 4 %; Neutrophils # (A) 4.9 k/uL (1.3-7.7); Neutrophils % (A) 79 %; Platelet Count 237 k/uL (150-450); RBC 4.97 m/uL (4.30-5.90); RDW 13.6 % (11.5-15.5); WBC 6.3 k/uL (3.8-10.6)
[2024-03-25 14:22] LABS: ALT 84 U/L (4-49); AST 34 U/L (17-59); African American GFR (CKD) >90 (>60 ml/min/1.73 sqM); Albumin 4.5 g/dL (3.5-5.0); Alkaline Phosphatase 116 U/L (38-126); Anion Gap 14 mmol/L; Blood Urea Nitrogen 7 mg/dL (9-20); Calcium 9.7 mg/dL (8.4-10.2); Carbon Dioxide 19 mmol/L (22-30); Chloride 104 mmol/L (98-107); Glucose 339 mg/dL (74-99); Non-African American GFR(CKD) >90 (>60 ml/min/1.73 sqM); Sodium 137 mmol/L (137-145); Total Bilirubin 0.9 mg/dL (0.2-1.3); Total Protein 7.4 g/dL (6.3-8.2)
[2024-03-25 14:31] LABS: INR 0.8 (<1.2); Partial Thromboplastin Time 21.7 sec (22.0-30.0); Prothrombin Time 9.6 sec (10.0-12.5)
[2024-03-25] MEDS: SODIUM CHLORIDE 0.9% 1,000 ML IV STA (15:32)
--- NOTE | 2024-03-25 15:50 | CT ---
EXAMINATION TYPE: CT brain luis a ordaz con DATE OF EXAM: 03/25/2024 COMPARISON: 03/07/2024 HISTORY: Fall CT DLP: 1656.9 mGycm Automated exposure control for dose reduction was used. TECHNIQUE: CT scan of the head and cervical spine are performed without contrast. Findings: Head CT: Ventricles, basal cisterns and sulci over convexities within normal limits and there is no mass, mass effect or shift of midline structures. No abnormal density is seen throughout the brain parenchyma and there is no acute intra or extra-axia l hemorrhage. Posterior fossa including the brainstem, fourth ventricle and cerebellar pontine angles are grossly n ormal. Chronic inflammatory change in the right maxillary sinus. The mastoid air cells are well aerated. The intraorbital contents are normal and symmetric. CT cervical spine: Craniovertebral junction relationships and prevertebral soft tissues are normal. The cervical vertebral segments are normal in height and alignment and there is no fracture subluxati on. There is interbody fusion C4-5 and C5-6. The bony cervical canal is widely patent and there is no bony encroachment of the neural foramina. Note is again made of mildly enlarged submental and submandibular lymph nodes. IMPRESSION: 1. Head CT: No acute bleed or mass effect. 2. CT cervical spine: No acute trauma. 3. Note is again made of multiple enlarged submental and submandibular lymph nodes [facility], , 03/25/2024 3:48 PM
--- NOTE | 2024-03-25 15:53 | CT ---
EXAMINATION TYPE: CT thoracic spine wo con DATE OF EXAM: 03/25/2024 COMPARISON: 03/14/2023 HISTORY: Fall CT DLP: 1432 mGycm Automated exposure control for dose reduction was used. FINDINGS: The thoracic vertebral segments are normal in height and alignment there is no fracture. Paraspinal soft tissues unremarkable. There is no significant bony compromise of the thoracic spinal canal. There is multilevel degenerative disease with anterior osteophytes in the midthoracic spine. The lower thoracic spine there is a TENS unit. IMPRESSION: 1. NO EVIDENCE OF TRAUMA. 2. STABLE MILD DEGENERATIVE DISC DISEASE AT MULTIPLE LEVELS IN THE MIDTHORACIC SPINE. 3. TENS UNIT IN THE LOWER THORACIC SPINE [facility], , 03/25/2024 3:51 PM
--- NOTE | 2024-03-25 16:23 | XR ---
EXAMINATION TYPE: XR chest 1V portable DATE OF EXAM: 03/25/2024 COMPARISON: 11/13/2023 HISTORY: Chest pain TECHNIQUE: Single frontal view of the chest is obtained. FINDINGS: There is no focal air space opacity, pleural effusion, or pneumothorax seen. The cardiac silhouette size is within normal limits. The osseous structures are intact. IMPRESSION: No acute process. [facility], , 03/25/2024 4:21 PM
--- NOTE | 2024-03-25 16:25 | XR ---
Pelvis. HISTORY: Fall. COMPARISON: None TECHNIQUE: Single AP view the pelvis is obtained. FINDINGS: The pelvis is intact and there is no fracture or focal intraosseous abnormality. There is no diastasi s or sclerosis of the SI joints or pubic symphysis. Hips are symmetric and normal bilaterally. There postoperative changes of lower lumbar spine laminectomy and metallic fusion. IMPRESSION: Unremarkable pelvis and hips. [facility], Workstation: [id number] 03/25/2024 4:23 PM
[2024-03-25 16:43] LABS: Glucose,Whole Blood 258 mg/dL (70-110)
--- NOTE | 2024-03-25 16:51 | ED ---
General Adult HPI - General Chief complaint: Fall Stated complaint: Fall w/neck pain,Hyperglycemia Time Seen by Provider: 03/25/24 13:25 Source: patient, EMS, RN notes reviewed, old records reviewed Mode of arrival: EMS - History of Present Illness Initial comments: Patient is a 58-year-old male who frequents our emergency department complaining of a fall on blood thinners. Patient states that he experienced a fall after feeling nauseous and landed on the ground and reaggravated pain in his neck and his back which is chronic. Patient also has a history of poorly controlled diabetes. Does not believe his head to his head. Does not believe he lost consciousness. Patient is on blood thinners. Presents for further evaluation at this time. No other obvious injury at this time. Patient has a past medical history remarkable for diabetes, asthma, CAD, hypertension, hyperlipidemia, recurrent blood clots. - Related Data Home Medications Medication Instructions Recorded Confirmed Insulin Lispro [humaLOG Kwikpen] See Protocol SQ ACHS 06/16/21 03/25/24 Insulin Glargine,Hum.rec.anlog 36 units SQ DAILY 10/20/22 03/25/24 [Lantus Solostar Pen] carvediloL [Coreg] 25 mg PO BID 03/10/23 03/25/24 Cyanocobalamin [Vitamin B-12 1,000 mcg SQ Q7D 03/25/24 03/25/24 Injection] Gabapentin 600 mg PO TID 03/25/24 03/25/24 Insulin Lispro [humaLOG Kwikpen] 10 unit SQ AC-TID 03/25/24 03/25/24 Valsartan [Diovan] 80 mg PO DAILY 03/25/24 03/25/24 methocarbamoL [Robaxin-750] 750 mg PO TID 03/25/24 03/25/24 oxyCODONE-APAP 7.5-325MG [Percocet 1 tab PO QID 03/25/24 03/25/24 7.5-325 mg] Allergies Allergy/AdvReac Type Severity Reaction Status Date / Time doxycycline Allergy Swelling Verified 03/25/24 14:29 ketorolac tromethamine Allergy Rash/Hives Verified 03/25/24 14:29 [From Toradol] morphine Allergy Rash/Hives Verified 03/25/24 14:29 metoclopramide HCl AdvReac Dystonic Verified 03/25/24 14:29 [From Reglan] Reaction prochlorperazine edisylate AdvReac Dystonic Verified 03/25/24 14:29 [From Compazine] Reaction prochlorperazine maleate AdvReac Dystonic Verified 03/25/24 14:29 [From Compazine] Reaction Review of Systems ROS Statement: Those systems with pertinent positive or pertinent negative responses have been documented in the HPI. Review of Systems: CONST: Denies fever EYES: Denies blurry vision ENT: Denies nasal congestion C/V: Denies Chest pain RESP: Denies shortness of breath GI: Denies abdominal pain : Denies dysuria SKIN: Denies rash. MSK: Endorses neck pain, back pain NEURO: Denies headache ROS Other: All systems not noted in ROS Statement are negative. Past Medical History Past Medical History: Asthma, Coronary Artery Disease (CAD), Chest Pain / Angina, Diabetes Mellitus, GERD/Reflux, GI Bleed, Hyperlipidemia, Hypertension, Myocardial Infarction (SC), Mitral Valve Prolapse (MVP), Pulmonary Embolus (PE), Sleep Apnea/CPAP/BIPAP Additional Past Medical History / Comment(s): Asthmatic bronchitis-chronic, IDDM type II, neuropathy bilateral feet, lower and upper GI bleeds, PUD, diverticulitis, colectomy d/t benign mass/intusseption, BPH, renal cysts, nephrolithiais, UTI with sepsis, chronic back pain 2ndary to herniated lumbar discs/sciatica, JARED does not use his Cpap, MVP, murmur, chronic dysphagia Last Myocardial Infarction Date:: 2011 History of Any Multi-Drug Resistant Organisms: C-DIFF, MRSA Date of last positivie culture/infection: 2015 MDRO Source:: left axilla Past Surgical History: Appendectomy, Back Surgery, Cholecystectomy, Heart Catheterization, Hernia Repair, Orthopedic Surgery Additional Past Surgical History / Comment(s): Lumbar decompression/fusion/laminectomy, spinal stimulator, T lift procedure, L inguinal hernia repair, multiple ESWLs/stents/double J caths, colonoscopy, 02/2020 colectomy, EGDs for food obstructions and dilations, NERVE STIMULATOR Past Anesthesia/Blood Transfusion Reactions: No Reported Reaction Past Psychological History: No Psychological Hx Reported Smoking Status: Never smoker Past Alcohol Use History: None Reported Past Drug Use History: None Reported - Past Family History Father Family Medical History: Chest Pain / Angina Additional Family Medical History / Comment(s): "lung problems" Mother Family Medical History: Blood Disorder, Cancer, Chest Pain / Angina, Congestive Heart Failure (CHF), Osteoarthritis (OA), Thyroid Disorder Additional Family Medical History / Comment(s): "stiff leg derrick operator cancer" blood clots General Exam - General Exam Comments Initial Comments: General: Appears in no acute distress. HEAD: Normal with no signs of head trauma. Negative Salas sign. Negative raccoon eyes. EYES: PERRLA, EOMI, conjunctiva normal, no discharge. Pupils are 3 mm and equal bilaterally. ENT: Hearing grossly intact, normal oropharynx. RESPIRATORY: Clear breath sounds bilaterally. No wheezes, rales, or rhonchi. C/V: Regular rate and rhythm. S1 and S2 auscultated, no edema, peripheral pulses 2+ and intact throughout ABD: Abd is soft, nontender, nondistended EXT: Normal range of motion, no obvious deformity no step-offs or deformities of the spine appreciated. Patient does have some mild tenderness to palpation of midline cervical and thoracic spine. No lumbar spine tenderness to palpation. Pelvis is stable. SKIN: No rashes or lesions observed on exposed skin. NEURO: Alert and oriented x 4. Cranial nerves II-XII intact. No focal sensory or strength deficits. 0. GCS of 15. Course Vital Signs 03/25/24 03/25/24 13:21 16:50 Temperature 99.0 F Pulse Rate 125 H 104 H Respiratory 18 18 Rate Blood Pressure 167/111 164/107 O2 Sat by Pulse 97 99 Oximetry Medical Decision Making - Medical Decision Making Was pt. sent in by a medical professional or institution (, PA, DOOR CAPTAIN, urgent care, hospital, or senior living...) When possible be specific @ -No Did you speak to anyone other than the patient for history (EMS, parent, family, police, friend...)? What history was obtained from this source @ -No Did you review nursing and triage notes (agree or disagree)? Why? @ -I reviewed and agree with nursing and triage notes Were old charts reviewed (outside hosp., previous admission, EMS record, old EKG, old radiological studies, urgent care reports/EKG's, senior living records)? Report findings @ -Charts reviewed confirming patient is chronically on Percocet as well as a blood thinner per patient. Differential Diagnosis (chest pain, altered mental status, abdominal pain women, abdominal pain men, vaginal bleeding, weakness, fever, dyspnea, syncope, headache, dizziness, GI bleed, back pain, seizure, CVA, palpatations, mental health, musculoskeletal)? @ -Differential Musculoskeletal Muscular strain, contusion, ligament sprain, fracture, arthritis, septic arthritis, bursitis, cellulitis, muscle spasm, nerve compression, DVT, arterial occlusion, herpes zoster, electrolyte abnormality, tumor.... This is not meant to be in all inclusive list EKG interpreted by me (3pts min.). @ -As above X-rays interpreted by me (1pt min.). @ -Chest x-ray and pelvis x-ray showed no obvious acute injury or acute process. CT interpreted by me (1pt min.). @ -CT brain, C-spine, T-spine negative for any obvious acute injury or process. Patient does have chronic degenerative changes of the spine. U/S interpreted by me (1pt. min.). @ -None done What testing was considered but not performed or refused? (CT, X-rays, U/S, labs)? Why? @ -None What meds were considered but not given or refused? Why? @ -None Did you discuss the management of the patient with other professionals (professionals i.e. , PA, DOOR CAPTAIN, lab, RT, psych nurse, secondary social studies teacher, milling general superintendent, teacher, public affairs officer, case mgr)? Give summary @ -No Was smoking cessation discussed for >3mins.? @ -No Was critical care preformed (if so, how long)? @ -No Were there social determinants of health that impacted care today? How? (Homelessness, low income, unemployed, alcoholism, drug addiction, transportation, low edu. Level, literacy, decrease access to med. care, usp, rehab)? @ -No Was there de-escalation of care discussed even if they declined (Discuss DNR or withdrawal of care, Hospice)? DNR status @ -No What co-morbidities impacted this encounter? (DM, HTN, Smoking, COPD, CAD, Cancer, CVA, ARF, Chemo, Hep., AIDS, mental health diagnosis, sleep apnea, morbid obesity)? @ -None Was patient admitted / discharged? Hospital course, mention meds given and route, prescriptions, significant lab abnormalities, going to OR and other pertinent info. @ -Patient presents as a fall on blood thinners. Does not meet trauma activation criteria. Vital signs within acceptable limits other than mild tachycardia. Patient be given analgesia medications and IV fluids. Patient was found to be hyperglycemic and we will obtain basic trauma labs as well as DKA r ule out. Patient was in agreement this plan. Imaging will be obtained of the brain as well as spine and chest and pelvis. EKG showed sinus tachycardia. Laboratory studies are all within acceptable limits other than hyperglycemia which improved following fluids to 258. No evidence of DKA on workup. Imaging all negative for any acute injuries or process. Cervical collar removed. Updated the patient. He will be discharged home at this time. He was in agreement this plan. Vital signs within acceptable limits. Patient is an insulin-dependent diabetic and he did not take his normal as ne eded insulin today. This is likely because of his acute hyperglycemia. It did improve with fluids. Recommended he continue his normal regimen at home. I instructed the patient to follow up with their PCP in the next 1-3 days. I explained that the patient should return to the emergency department if they experience any worsening symptoms. Strict return precautions were discussed with the patient. The patient expressed understanding of these instructions. I answered all questions that the patient had. The patient was discharged home in good condition with their prescriptions and follow up information. Undiagnosed new problem with uncertain prognosis? @ -No Drug Therapy requiring intensive monitoring for toxicity (Heparin, Nitro, Insulin, Cardizem)? @ -No Were any procedures done? @ -No Diagnosis/symptom? @ -Fall, hyper glycemia, chronic pain Acute, or Chronic, or Acute on Chronic? @ -Acute Uncomplicated (without systemic symptoms) or Complicated (systemic symptoms)? @ -Uncomplicated Side effects of treatment? @ -No Exacerbation, Progression, or Severe Exacerbation? @ -No Poses a threat to life or bodily function? How? (Chest pain, USA, SC, pneumonia, PE, COPD, DKA, ARF, appy, cholecystitis, CVA, Diverticulitis, Homicidal, Suicidal, threat to staff... and all critical care pts) @ -No - Lab Data Result diagrams: 03/25/24 13:56 03/25/24 13:56 Lab Results 03/25/24 03/25/2403/25/24 Range/Units 13:25 13:56 13:56 WBC 6.3 (3.8-10.6) k/uL RBC 4.97 (4.30-5.90) m/uL Hgb 14.5 (13.0-17.5) gm/dL Hct 43.7 (39.0-53.0) % MCV 88.0 (80.0-100.0) fL MCH 29.1 (25.0-35.0) pg MCHC 33.1 (31.0-37.0) g/dL RDW 13.6 (11.5-15.5) % Plt Count 237 (150-450) k/uL MPV 6.8 Neutrophils % 79 % Lymphocytes % 14 % Monocytes % 4 % Eosinophils % 2 % Basophils % 1 % Neutrophils # 4.9 (1.3-7.7) k/uL Lymphocytes # 0.9 L (1.0-4.8) k/uL Monocytes # 0.2 (0-1.0) k/uL Eosinophils # 0.1 (0-0.7) k/uL Basophils # 0.0 (0-0.2) k/uL PT 9.6 L (10.0-12.5) sec INR 0.8 (<1.2) APTT 21.7 L (22.0-30.0) sec VBG pH (7.31-7.41) VBG pCO2 (37-51) mmHg VBG HCO3 (24-28) mmol/L Sodium (137-145) mmol/L Potassium (3.5-5.1) mmol/L Chloride (98-107) mmol/L Carbon Dioxide (22-30) mmol/L Anion Gap mmol/L BUN (9-20) mg/dL Creatinine (0.66-1.25) mg/dL Est GFR (CKD-EPI)AfAm (>60 ml/min/1.73 sqM) Est GFR (CKD-EPI)NonAf (>60 ml/min/1.73 sqM) Glucose (74-99) mg/dL POC Glucose (mg/dL) 324 H (70-110) mg/dL POC Glu Back Sewer ID Celena Carlos Calcium (8.4-10.2) mg/dL Total Bilirubin (0.2-1.3) mg/dL AST (17-59) U/L ALT (4-49) U/L Alkaline Phosphatase (38-126) U/L Total Protein (6.3-8.2) g/dL Albumin (3.5-5.0) g/dL Acetone, Qual (Negative) 03/25/24 03/25/24 03/25/24 Range/Units 13:56 13:56 16:36 WBC (3.8-10.6) k/uL RBC (4.30-5.90) m/uL Hgb (13.0-17.5) gm/dL Hct (39.0-53.0) % MCV (80.0-100.0) fL MCH (25.0-35.0) pg MCHC (31.0-37.0) g/dL RDW (11.5-15.5) % Plt Count (150-450) k/uL MPV Neutrophils % % Lymphocytes % % Monocytes % % Eosinophils % % Basophils % % Neutrophils # (1.3-7.7) k/uL Lymphocytes # (1.0-4.8) k/uL Monocytes # (0-1.0) k/uL Eosinophils # (0-0.7) k/uL Basophils # (0-0.2) k/uL PT (10.0-12.5) sec INR (<1.2) APTT (22.0-30.0) sec VBG pH 7.44 H (7.31-7.41) VBG pCO2 33 L (37-51) mmHg VBG HCO3 22 L (24-28) mmol/L Sodium 137 (137-145) mmol/L Potassium 4.0 (3.5-5.1) mmol/L Chloride 104 (98-107) mmol/L Carbon Dioxide 19 L (22-30) mmol/L Anion Gap 14 mmol/L BUN 7 L (9-20) mg/dL Creatinine 0.43 L (0.66-1.25) mg/dL Est GFR (CKD-EPI)AfAm >90 (>60 ml/min/1.73 sqM) Est GFR (CKD-EPI)NonAf >90 (>60 ml/min/1.73 sqM) Glucose 339 H (74-99) mg/dL POC Glucose (mg/dL) 258 H (70-110) mg/dL POC Glu Back Sewer ID Divina Sims Calcium 9.7 (8.4-10.2) mg/dL Total Bilirubin 0.9 (0.2-1.3) mg/dL AST 34 (17-59) U/L ALT 84 H (4-49) U/L Alkaline Phosphatase 116 (38-126) U/L Total Protein 7.4 (6.3-8.2) g/dL Albumin 4.5 (3.5-5.0) g/dL Acetone, Qual Negative (Negative) - EKG Data -: EKG Interpreted by Me EKG Comments: 12-lead Electrocardiogram Interpretation Note EKG was reviewed and interpreted by myself. 12-lead ECG performed at 1422 is interpreted by me as revealing sinus tachycardia at a rate of 112 beats per minute. [place] is normal. [place] interval is 161 ms, QRS duration is 116 ms, QTc is 424 ms.. There were no ST or T wave abnormalities to suggest myocardial ischemia or injury. R wave progression across the precordium was satisfactory. By my interpretation this EKG is non-diagnostic for acute ischemia. Disposition Clinical Impression: Chronic pain, Fall, Hyperglycemia Disposition: HOME SELF-CARE Condition: Good Instructions (If sedation given, give patient instructions): Fall Prevention for Older Adults (ED) Is patient prescribed a controlled substance at d/c from ED?: No Referrals: González Muñiz MD [Primary Care Provider] - 1-2 days Time of Disposition: 16:50
[2024-03-25 16:55] VITALS: BP 164/107; PULSE 104
== END 2024-03-25 16:50 | disposition home or self-care (01) ==
LOC: EC 13:19
DX: M54.2 Cervicalgia (principal); E11.65 Type 2 diabetes mellitus with hyperglycemia; G89.29 Other chronic pain; Z88.8 Allergy status to other drugs, medicaments and biological substances; Z90.49 Acquired absence of other specified parts of digestive tract; W18.39XA Other fall on same level, initial encounter
CPT/HCPCS: 36415; 70450; 71045; 72125; 72128; 72170; 80053; 82009; 82803; 85025; 85610; 85730; 93005; 96361; 96374; 96376; 99285

== ENCOUNTER 2024-04-12 14:32 | Emergency (ER) | payer OTHER ==
--- NOTE | 2024-04-12 14:55 | ED ---
Abdominal Pain HPI - General Chief Complaint: Abdominal Pain Stated Complaint: R Flank Pain Time Seen by Provider: 04/12/24 14:36 Source: patient, EMS, RN notes reviewed Mode of arrival: wheelchair Limitations: no limitations - History of Present Illness Initial Comments: This is a 58-year-old male who is well-known to this emergency department who presents for multiple complaints. Reports difficulty urinating and right flank pain for the past 2 days. Also reports diarrhea, abdominal pain, loose stools, and dark and tarry stools. Also states that he has been nauseous and vomiting multiple times. Reports a history of kidney stones and states that symptoms feel similar to that. However, states that the abdominal pain feels similar to diverticulitis. He reports a history of colon cancer in 2019. Denies any fevers or chills. MD Complaint: abdominal pain, flank pain - Related Data Home Medications Medication Instructions Recorded Confirmed Insulin Lispro [humaLOG Kwikpen] See Protocol SQ ACHS 06/16/21 04/12/24 Insulin Glargine,Hum.rec.anlog 36 units SQ DAILY 10/20/22 04/12/24 [Lantus Solostar Pen] Cyanocobalamin [Vitamin B-12 1,000 mcg SQ Q7D 03/25/24 04/12/24 Injection] Gabapentin 600 mg PO TID 03/25/24 04/12/24 Insulin Lispro [humaLOG Kwikpen] 10 unit SQ AC-TID 03/25/24 04/12/24 Valsartan [Diovan] 80 mg PO DAILY 03/25/24 04/12/24 methocarbamoL [Robaxin-750] 750 mg PO TID 03/25/24 04/12/24 oxyCODONE-APAP 7.5-325MG [Percocet 1 tab PO QID 03/25/24 04/12/24 7.5-325 mg] Dulaglutide [Trulicity] 1.5 mg SQ SA 04/12/24 04/12/24 carvediloL [Coreg] 3.125 mg PO BID 04/12/24 04/12/24 Allergies Allergy/AdvReac Type Severity Reaction Status Date / Time doxycycline Allergy Swelling Verified 04/12/24 15:51 ketorolac tromethamine Allergy Rash/Hives Verified 04/12/24 15:51 [From Toradol] morphine Allergy Rash/Hives Verified 04/12/24 15:51 metoclopramide HCl AdvReac Dystonic Verified 04/12/24 15:51 [From Reglan] Reaction prochlorperazine edisylate AdvReac Dystonic Verified 04/12/24 15:51 [From Compazine] Reaction prochlorperazine maleate AdvReac Dystonic Verified 04/12/24 15:51 [From Compazine] Reaction Review of Systems ROS Statement: Those systems with pertinent positive or pertinent negative responses have been documented in the HPI. ROS Other: All systems not noted in ROS Statement are negative. Past Medical History Past Medical History: Asthma, Coronary Artery Disease (CAD), Chest Pain / Angina, Diabetes Mellitus, GERD/Reflux, GI Bleed, Hyperlipidemia, Hypertension, Myocardial Infarction (DE), Mitral Valve Prolapse (MVP), Pulmonary Embolus (PE), Sleep Apnea/CPAP/BIPAP Additional Past Medical History / Comment(s): Asthmatic bronchitis-chronic, IDDM type II, neuropathy bilateral feet, lower and upper GI bleeds, PUD, divert iculitis, colectomy d/t benign mass/intusseption, BPH, renal cysts, nephrolithiais, UTI with sepsis, chronic back pain 2ndary to herniated lumbar discs/sciatica, JARED does not use his Cpap, MVP, murmur, chronic dysphagia Last Myocardial Infarction Date:: 2011 History of Any Multi-Drug Resistant Organisms: C-DIFF, MRSA Date of last positivie culture/infection: 2015 MDRO Source:: left axilla Past Surgical History: Appendectomy, Back Surgery, Cholecystectomy, Heart Catheterization, Hernia Repair, Orthopedic Surgery Additional Past Surgical History / Comment(s): Lumbar decompression/fusion/laminectomy, spinal stimulator, T lift procedure, L inguin al hernia repair, multiple ESWLs/stents/double J caths, colonoscopy, 02/2020 colectomy, EGDs for food obstructions and dilations, NERVE STIMULATOR Past Anesthesia/Blood Transfusion Reactions: No Reported Reaction Past Psychological History: No Psychological Hx Reported Smoking Status: Never smoker Past Alcohol Use History: None Reported Past Drug Use History: None Reported - Past Family History Father Family Medical History: Chest Pain / Angina Additional Family Medical History / Comment(s): "lung problems" Mother Family Medical History: Blood Disorder, Cancer, Chest Pain / Angina, Congestive Heart Failure (CHF), Osteoarthritis (OA), Thyroid Disorder Additional Family Medical History / Comment(s): "frozen pie maker cancer" blood clots General Exam Limitations: no limitations General appearance: alert, in distress Head exam: Present: atraumatic, normocephalic, normal inspection Respiratory exam: Present: normal lung sounds bilaterally. Absent: respiratory distress, wheezes, rales, rhonchi, stridor Cardiovascular Exam: Present: regular rate, normal rhythm, normal heart sounds. Absent: systolic murmur, diastolic murmur, rubs, gallop, clicks GI/Abdominal exam: Present: soft, tenderness (diffuse), normal bowel sounds. Absent: distended Back exam: Present: CVA tenderness (R) Neurological exam: Present: alert, oriented X3, CN II-XII intact Psychiatric exam: Present: normal affect, normal mood Skin exam: Present: warm, dry, intact, normal color. Absent: rash Course Vital Signs 04/12/24 04/12/24 04/12/24 14:42 16:29 18:26 Temperature 97.5 F L Pulse Rate 131 H 114 H 76 Respiratory 18 18 17 Rate Blood Pressure 185/121 130/91 170/86 O2 Sat by Pulse 97 98 98 Oximetry Medical Decision Making - Medical Decision Making This is a 58 year old male who presents to the emergency department for flank pain and abdominal pain. Was pt. sent in by a medical professional or institution? @ -No Did you speak to anyone other than the patient for history? @ -No Did you review nursing and triage notes? @ -Yes, and I agree, it is accurate with regards to the patient's symptoms. Were old charts reviewed? @ -No Differential Diagnosis? @ -Differential Abdominal Pain Men: Appendicitis, cholecystitis, diverticulosis, ischemic bowel, pancreatitis, hepatitis, UTI, gastroenteritis, AAA, incarcerated hernia, bowel obstruction, constipation, inflammatory bowel, hepatitis, peptic ulcer disease, splenic infarction, perforated viscus, testicular torsion, this is not meant to be an all-inclusive list EKG interpreted by me (3pts min.)? @ -EKG interpreted by me demonstrating the following: Sinus tachycardia. Ventricular rate 125 bpm, QRS duration 118 ms, QTc 434 ms. X-rays interpreted by me (1pt min.)? @ -Not obtained CT interpreted by me (1pt min.)? @ -CT scan of the abdomen and pelvis obtained. My interpretation identifies no evidence of a ureteral calculus. U/S interpreted by me (1pt. min.)? @ -Not obtained What testing was considered but not performed? (CT, X-rays, U/S, labs)? Why? @ -None What meds were considered but not given? Why? @ -None Did you discuss the management of the patient with other professionals? @ -No Did you reconcile home meds? @ -No Was smoking cessation discussed for >3mins.? @ -No Was critical care preformed (if so, how long)? @ -No Were there social determinants of health that impacted care today? How? (H omelessness, low income, unemployed, alcoholism, drug addiction, transportation, low edu. Level, literacy, decrease access to med. care, [facility], rehab)? @ -No Was there de-escalation of care discussed even if they declined? (Discuss DNR or withdrawal of care, Hospice)? @ -No What co-morbidities impacted this encounter? (DM, HTN, Smoking, COPD, CAD, Cancer, CVA, Hep., AIDS, mental health diagnosis, sleep apnea, morbid obesity)? @ -Asthma, CAD, DM, chronic back pain Was patient admitted / discharged? @ -Discharged. Lab work demonstrates an elevated lactic acid of 3.5 and was otherwise relatively unremarkable. Hemoglobin within normal limits. Urinalysis contains a large amount of blood but is negative for signs of infection. It appears that his UAs typically contain a large amount of blood. CT scan of the abdomen and pelvis reveals no suspicious abnormalities to account for ill- defined acute abdominal pain. No evidence of a ureteral calculus or obstructive uropathy was present. He has a mild focal ileus in the left mid abdomen duodenum, which is not consistent with his symptoms or with the location of his pain. Symptoms were managed in the emergency department. He was given 1.5 L of IV fluids. Recheck of lactic acid was within normal limits. Patient discharged home in stable condition and advised follow-up with his PCP. Case discussed with ED attending Dr. Gray. Return precautions reviewed in depth, the patient is instructed to return to the emergency department with any new, worsening, or concerning symptoms. Patient verbalized understanding. Undiagnosed new problem with uncertain prognosis? @ -None Drug Therapy requiring intensive monitoring for toxicity (Heparin, Nitro, Insulin, Cardizem)? @ -None Were any procedures done? @ -None Diagnosis/symptom? @ -Abdominal pain, flank pain, hematuria Acute, or Chronic, or Acute on Chronic? @ -Acute Uncomplicated (without systemic symptoms) or Complicated (systemic symptoms)? @ -Uncomplicated Side effects of treatment? @ -None Exacerbation, Progression, or Severe Exacerbation] @ -Not applicable Poses a threat to life or bodily function? @ -No - Lab Data Result diagrams: 04/12/24 14:45 04/12/24 14:45 Lab Results 04/12/24 04/12/24 04/12/24 Range/Units 14:41 14:45 14:45 WBC 6.0 (3.8-10.6) k/uL RBC 4.86 (4.30-5.90) m/uL Hgb 14.3 (13.0-17.5) gm/dL Hct 42.7 (39.0-53.0) % MCV 87.7 (80.0-100.0) fL MCH 29.3 (25.0-35.0) pg MCHC 33.5 (31.0-37.0) g/dL RDW 13.4 (11.5-15.5) % Plt Count 265 (150-450) k/uL MPV 6.6 Neutrophils % 68 % Lymphocytes % 21 % Monocytes % 5 % Eosinophils % 3 % Basophils % 0 % Neutrophils # 4.1 (1.3-7.7) k/uL Lymphocytes # 1.2 (1.0-4.8) k/uL Monocytes # 0.3 (0-1.0) k/uL Eosinophils # 0.2 (0-0.7) k/uL Basophils # 0.0 (0-0.2) k/uL Sodium (137-145) mmol/L Potassium (3.5-5.1) mmol/L Chloride (98-107) mmol/L Carbon Dioxide (22-30) mmol/L Anion Gap mmol/L BUN (9-20) mg/dL Creatinine (0.66-1.25) mg/dL Est GFR (CKD-EPI)AfAm (>60 ml/min/1.73 sqM) Est GFR (CKD-EPI)NonAf (>60 ml/min/1.73 sqM) Glucose (74-99) mg/dL POC Glucose (mg/dL) 240 H (70-110) mg/dL POC Glu Animal Control Supervisor ID Caitieval Kiana Lactic Ac Sepsis Rflx Plasma Lactic Acid Edd (0.7-2.0) mmol/L Calcium (8.4-10.2) mg/dL Magnesium (1.6-2.3) mg/dL Total Bilirubin (0.2-1.3) mg/dL AST (17-59) U/L ALT (4-49) U/L Alkaline Phosphatase (38-126) U/L Total Protein (6.3-8.2) g/dL Albumin (3.5-5.0) g/dL Amylase (30-110) U/L Lipase (23-300) U/L Urine Color Light Yellow Urine Appearance Clear (Clear) Urine pH 5.0 (5.0-8.0) Ur Specific Morton 1.038 H (1.001-1.035) Urine Protein Negative (Negative) Urine Glucose (UA) 4+ H (Negative) Urine Ketones Negative (Negative) Urine Blood Large H (Negative) Urine Nitrite Negative (Negative) Urine Bilirubin Negative (Negative) Urine Urobilinogen <2.0 (<2.0) mg/dL Ur Leukocyte Esterase Negative (Negative) Urine RBC >182 H (0-5) /hpf Ur Squamous Epith Cells 1 (0-4) /hpf Urine Mucus Rare H (None) /hpf 04/12/24 04/12/24 04/12/24 Range/Units 14:45 14:45 15:15 WBC (3.8-10.6) k/uL RBC (4.30-5.90) m/uL Hgb (13.0-17.5) gm/dL Hct (39.0-53.0) % MCV (80.0-100.0) fL MCH (25.0-35.0) pg MCHC (31.0-37.0) g/dL RDW (11.5-15.5) % Plt Count (150-450) k/uL MPV Neutrophils % % Lymphocytes % % Monocytes % % Eosinophils % % Basophils % % Neutrophils # (1.3-7.7) k/uL Lymphocytes # (1.0-4.8) k/uL Monocytes # (0-1.0) k/uL Eosinophils # (0-0.7) k/uL Basophils # (0-0.2) k/uL Sodium 138 (137-145) mmol/L Potassium 3.6 (3.5-5.1) mmol/L Chloride 104 (98-107) mmol/L Carbon Dioxide 21 L (22-30) mmol/L Anion Gap 13 mmol/L BUN 8 L (9-20) mg/dL Creatinine 0.51 L (0.66-1.25) mg/dL Est GFR (CKD-EPI)AfAm >90 (>60 ml/min/1.73 sqM) Est GFR (CKD-EPI)NonAf >90 (>60 ml/min/1.73 sqM) Glucose 261 H (74-99) mg/dL POC Glucose (mg/dL) (70-110) mg/dL POC Glu Animal Control Supervisor ID Lactic Ac Sepsis Rflx Y Plasma Lactic Acid Edd 3.5 H* (0.7-2.0) mmol/L Calcium 9.4 (8.4-10.2) mg/dL Magnesium 1.8 (1.6-2.3) mg/dL Total Bilirubin 0.5 (0.2-1.3) mg/dL AST 19 (17-59) U/L ALT 20 (4-49) U/L Alkaline Phosphatase 118 (38-126) U/L Total Protein 7.0 (6.3-8.2) g/dL Albumin 4.3 (3.5-5.0) g/dL Amylase 56 (30-110) U/L Lipase 63 (23-300) U/L Urine Color Urine Appearance (Clear) Urine pH (5.0-8.0) Ur Specific Morton (1.001-1.035) Urine Protein (Negative) Urine Glucose (UA) (Negative) Urine Ketones (Negative) Urine Blood (Negative) Urine Nitrite (Negative) Urine Bilirubin (Negative) Urine Urobilinogen (<2.0) mg/dL Ur Leukocyte Esterase (Negative) Urine RBC (0-5) /hpf Ur Squamous Epith Cells (0-4) /hpf Urine Mucus (None) /hpf 04/12/24 Range/Units 17:05 WBC (3.8-10.6) k/uL RBC (4.30-5.90) m/uL Hgb (13.0-17.5) gm/dL Hct (39.0-53.0) % MCV (80.0-100.0) fL MCH (25.0-35.0) pg MCHC (31.0-37.0) g/dL RDW (11.5-15.5) % Plt Count (150-450) k/uL MPV Neutrophils % % Lymphocytes % % Monocytes % % Eosinophils % % Basophils % % Neutrophils # (1.3-7.7) k/uL Lymphocytes # (1.0-4.8) k/uL Monocytes # (0-1.0) k/uL Eosinophils # (0-0.7) k/uL Basophils # (0-0.2) k/uL Sodium (137-145) mmol/L Potassium (3.5-5.1) mmol/L Chloride (98-107) mmol/L Carbon Dioxide (22-30) mmol/L Anion Gap mmol/L BUN (9-20) mg/dL Creatinine (0.66-1.25) mg/dL Est GFR (CKD-EPI)AfAm (>60 ml/min/1.73 sqM) Est GFR (CKD-EPI)NonAf (>60 ml/min/1.73 sqM) Glucose (74-99) mg/dL POC Glucose (mg/dL) (70-110) mg/dL POC Glu Animal Control Supervisor ID Lactic Ac Sepsis Rflx Plasma Lactic Acid Edd 1.9 (0.7-2.0) mmol/L Calcium (8.4-10.2) mg/dL Magnesium (1.6-2.3) mg/dL Total Bilirubin (0.2-1.3) mg/dL AST (17-59) U/L ALT (4-49) U/L Alkaline Phosphatase (38-126) U/L Total Protein (6.3-8.2) g/dL Albumin (3.5-5.0) g/dL Amylase (30-110) U/L Lipase (23-300) U/L Urine Color Urine Appearance (Clear) Urine pH (5.0-8.0) Ur Specific Morton (1.001-1.035) Urine Protein (Negative) Urine Glucose (UA) (Negative) Urine Ketones (Negative) Urine Blood (Negative) Urine Nitrite (Negative) Urine Bilirubin (Negative) Urine Urobilinogen (<2.0) mg/dL Ur Leukocyte Esterase (Negative) Urine RBC (0-5) /hpf Ur Squamous Epith Cells (0-4) /hpf Urine Mucus (None) /hpf - Radiology Data Radiology results: report reviewed, image reviewed Disposition Clinical Impression: Right flank pain, Abdominal pain Disposition: HOME SELF-CARE Instructions (If sedation given, give patient instructions): Abdominal Pain (ED), Flank Pain (ED) Additional Instructions: Return to the emergency department with any new, worsening, or concerning symptoms. Follow up with your primary care provider in 1-2 days. Is patient prescribed a controlled substance at d/c from ED?: No Referrals: González Muñiz MD [Primary Care Provider] - 1-2 days Time of Disposition: 17:34
[2024-04-12] MEDS: HYDROmorphone 1 MG/ML 1 ML SYRINGE IVP STA ×2 (14:56→16:25)
[2024-04-12 14:59] LABS: Basophils % (A) 0 %; Eosinophils # (A) 0.2 k/uL (0-0.7); Eosinophils % (A) 3 %; HCT 42.7 % (39.0-53.0); HGB 14.3 gm/dL (13.0-17.5); Lymphocytes # (A) 1.2 k/uL (1.0-4.8); Lymphocytes % (A) 21 %; MCH 29.3 pg (25.0-35.0); MCHC 33.5 g/dL (31.0-37.0); MCV 87.7 fL (80.0-100.0); Mean Platelet Volume 6.6; Monocytes # (A) 0.3 k/uL (0-1.0); Monocytes % (A) 5 %; Neutrophils # (A) 4.1 k/uL (1.3-7.7); Neutrophils % (A) 68 %; Platelet Count 265 k/uL (150-450); RBC 4.86 m/uL (4.30-5.90); RDW 13.4 % (11.5-15.5)
[2024-04-12] MEDS: ONDANSETRON 4 MG/2 ML VIAL IVP STA (15:02)
[2024-04-12 15:03] LABS: Glucose,Whole Blood 240 mg/dL (70-110)
[2024-04-12] MEDS: SODIUM CHLORIDE 0.9% 1,000 ML IV STA (15:04)
[2024-04-12 15:10] LABS: ALT 20 U/L (4-49); AST 19 U/L (17-59); African American GFR (CKD) >90 (>60 ml/min/1.73 sqM); Albumin 4.3 g/dL (3.5-5.0); Alkaline Phosphatase 118 U/L (38-126); Amylase 56 U/L (30-110); Anion Gap 13 mmol/L; Blood Urea Nitrogen 8 mg/dL (9-20); Calcium 9.4 mg/dL (8.4-10.2); Carbon Dioxide 21 mmol/L (22-30); Chloride 104 mmol/L (98-107); Glucose 261 mg/dL (74-99); Lipase 63 U/L (23-300); Magnesium 1.8 mg/dL (1.6-2.3); Non-African American GFR(CKD) >90 (>60 ml/min/1.73 sqM); Potassium 3.6 mmol/L (3.5-5.1); Sodium 138 mmol/L (137-145); Total Bilirubin 0.5 mg/dL (0.2-1.3)
[2024-04-12 15:11] VITALS: TEMP 97.5
[2024-04-12 15:13] LABS: Appearance,Urine Clear (Clear); Bilirubin,Urine Negative (Negative); Blood,Urine Large (Negative); Color,Urine Light Yellow; Glucose,Urine (UA) 4+ (Negative); Ketones,Urine Negative (Negative); Leukocyte Esterase,Urine Negative (Negative); Mucus,Urine Rare /hpf; Nitrite,Urine Negative (Negative); Protein,Urine Negative (Negative); RBC,Urine >182 /hpf (0-5); Specific Gravity,Urine 1.038 (1.001-1.035); Squamous Epithelial Cell,Urine 1 /hpf (0-4); Urobilinogen,Urine <2.0 mg/dL (<2.0)
--- NOTE | 2024-04-12 15:59 | CT ---
EXAMINATION TYPE: CT abdomen pelvis w con DATE OF EXAM: 04/12/2024 COMPARISON: 08/26/2023 INDICATION: lower abdominal pain DLP: 1942.2 mGycm, Automated exposure control for dose reduction was used. CONTRAST: 100 mL of Isovue 370. Study performed without Oral Contrast TECHNIQUE: Axial images were obtained from above the diaphragm to the pubic rami in the axial plane a t 5 mm thick sections. Reconstructed images are reviewed on the computer in the coronal plane. FINDINGS: Limited CT sections are obtained the lung bases. The lung bases are clear. CT ABDOMEN: Liver: Mild fatty infiltration of liver is present. Spleen: Normal Pancreas: Normal Adrenal glands: The adrenal glands are normal. Gallbladder: Surgically absent Kidneys: No masses are evident. No hydronephrosis is present. There is a 4.1 cm cyst on the right kid sheron. Delayed images were obtained through the kidneys, which remain unremarkable. Aorta: Vascular calcification is within the aorta. Inferior vena cava: Normal. CT PELVIS: Loops of bowel within the abdomen and pelvis are normal. There are some prominent small bowel loops w ithin the proximal duodenum. More normal caliber fluid-filled distal duodenum is present. The liver a ppears unremarkable. There are loops of bowel which are incompletely distended or lack oral contra st limiting their evaluation. Appendix: Not visualized. No dilated tubular structure or inflammatory changes evident. Urinary bladder: Normal. Genitourinary structures: The prostate appears unremarkable. Osseous structures: No suspicious lytic or sclerotic lesions. Surgical changes are in the lumbar spin e. Electronic device overlies the left buttocks. IMPRESSION: 1. No suspicious abnormalities to account for ill-defined acute abdominal pain. 2. Right renal cyst. 3. Mild focal ileus left mid abdomen duodenum. [facility], Workstation: [facility], 04/12/2024 3:57 PM
[2024-04-12] MEDS: SODIUM CHLORIDE 0.9% 500 ML 500 ML IV STA (16:26)
[2024-04-12] MEDS: ONDANSETRON 4 MG ODT STARTER PACK 2 TAB BTL PO STA (18:23)
[2024-04-12 18:27] VITALS: BP 170/86; PULSE 76; RESP 17
== END 2024-04-12 18:27 | disposition home or self-care (01) ==
LOC: EC 14:32
CPT/HCPCS: 36415; 74177; 80053; 81001; 82150; 83605; 83690; 83735; 85025; 93005; 96361; 96374; 96375; 96376; 99285

== ENCOUNTER 2024-04-28 17:04 | Emergency (ER) | payer OTHER ==
--- NOTE | 2024-04-28 17:13 | ED ---
General Adult HPI <Dominick Garibay - Last Filed: 04/28/24 17:13> - History of Present Illness -: hour(s) Location: neck, back Radiation: non-radiation Quality: aching Consistency: constant Improves with: none Worsens with: none Associated Symptoms: denies other symptoms Treatments Prior to Arrival: none <Edmond Hernandez - Last Filed: 05/13/24 13:39> - General Stated complaint: FALL Time Seen by Provider: 04/28/24 17:13 - History of Present Illness Initial comments: 58-year-old male presenting with chief complaint of fall. Patient states that he fell injuring his back and neck. He denies any head injury or loss of consciousness. He has history of chronic back and neck pain. (Dominick Garibay) Patient is a 58-year-old man with history of chronic back and neck pain. The patient states that he was walking when he had a spasm of back pain his knees buckled and he fell. He states that there was then pain to the low lumbar area of the back. He toppled backwards then and it flared up his chronic neck pain as well. Denies weakness or numbness to the legs. (Edmond Hernandez) - Related Data Home Medications Medication Instructions Recorded Confirmed Insulin Lispro [humaLOG Kwikpen] See Protocol SQ ACHS 06/16/21 04/29/24 Insulin Glargine,Hum.rec.anlog 36 units SQ DAILY 10/20/22 04/29/24 [Lantus Solostar Pen] Cyanocobalamin [Vitamin B-12 1,000 mcg SQ TU 03/25/24 04/29/24 Injection] Gabapentin 600 mg PO TID 03/25/24 04/29/24 Insulin Lispro [humaLOG Kwikpen] 10 unit SQ AC-TID 03/25/24 04/29/24 Valsartan [Diovan] 80 mg PO DAILY 03/25/24 04/29/24 methocarbamoL [Robaxin-750] 750 mg PO TID 03/25/24 04/29/24 Dulaglutide [Trulicity] 1.5 mg SQ SA 04/12/24 04/29/24 carvediloL [Coreg] 3.125 mg PO BID 04/12/24 04/29/24 oxyCODONE-APAP 5-325MG [Percocet 1 tab PO QID 04/29/24 04/29/24 5-325 mg] Allergies Allergy/AdvReac Type Severity Reaction Status Date / Time doxycycline Allergy Swelling Verified 05/06/24 13:12 ketorolac tromethamine Allergy Rash/Hives Verified 05/06/24 13:12 [From Toradol] morphine Allergy Rash/Hives Verified 05/06/24 13:12 metoclopramide HCl AdvReac Dystonic Verified 05/06/24 13:12 [From Reglan] Reaction prochlorperazine edisylate AdvReac Dystonic Verified 05/06/24 13:12 [From Compazine] Reaction prochlorperazine maleate AdvReac Dystonic Verified 05/06/24 13:12 [From Compazine] Reaction Review of Systems ROS Other: All systems not noted in ROS Statement are negative. <Dominick Garibay - Last Filed: 04/28/24 17:13> ROS Other: All systems not noted in ROS Statement are negative. Constitutional: Denies: fever, chills, weakness Respiratory: Denies: cough, dyspnea Cardiovascular: Denies: chest pain, palpitations, edema Gastrointestinal: Denies: abdominal pain, vomiting, diarrhea Genitourinary: Denies: dysuria, hematuria Musculoskeletal: Reports: as per HPI, back pain Skin: Denies: rash Neurological: Denies: headache, weakness, numbness, paresthesias <Edmond Hernandez - Last Filed: 05/13/24 13:39> ROS Statement: Those systems with pertinent positive or pertinent negative responses have been documented in the HPI. Past Medical History Past Medical History: Asthma, Coronary Artery Disease (CAD), Chest Pain / Angina, Diabetes Mellitus, GERD/Reflux, GI Bleed, Hyperlipidemia, Hypertension, Myocardial Infarction ([place]), Mitral Valve Prolapse (MVP), Pulmonary Embolus (PE), Sleep Apnea/CPAP/BIPAP Additional Past Medical History / Comment(s): Asthmatic bronchitis-chronic, IDDM type II, neuropathy bilateral feet, lower and upper GI bleeds, PUD, diverticulitis, colectomy d/t benign mass/intusseption, BPH, renal cysts, nephrolithiais, UTI with sepsis, chronic back pain 2ndary to herniated lumbar discs/sciatica, JARED does not use his Cpap, MVP, murmur, chronic dysphagia Last Myocardial Infarction Date:: 2011 History of Any Multi-Drug Resistant Organisms: C-DIFF, MRSA Date of last positivie culture/infection: 2016 MDRO Source:: left axilla Past Surgical History: Appendectomy, Back Surgery, Cholecystectomy, Heart Catheterization, Hernia Repair, Orthopedic Surgery Additional Past Surgical History / Comment(s): Lumbar decompression/fusion/laminectomy, spinal stimulator, T lift procedure, L inguinal hernia repair, multiple ESWLs/stents/double J caths, colonoscopy, 02/2020 colectomy, EGDs for food obstructions and dilations, NERVE STIMULATOR Past Anesthesia/Blood Transfusion Reactions: No Reported Reaction Past Psychological History: No Psychological Hx Reported Smoking Status: Never smoker Past Alcohol Use History: None Reported Past Drug Use History: None Reported - Past Family History Father Family Medical History: Chest Pain / Angina Additional Family Medical History / Comment(s): "lung problems" Mother Family Medical History: Blood Disorder, Cancer, Chest Pain / Angina, Congestive Heart Failure (CHF), Osteoarthritis (OA), Thyroid Disorder Additional Family Medical History / Comment(s): "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 Absent: scleral icterus, conjunctival injection Neck exam: Present: normal inspection, full ROM Respiratory exam: Present: normal lung sounds bilaterally. Absent: respiratory distress, wheezes, rales, rhonchi, stridor, accessory muscle use Cardiovascular Exam: Present: regular rate, normal rhythm, normal heart sounds. Absent: systolic murmur, diastolic murmur, rubs, gallop GI/Abdominal exam: Present: soft. Absent: distended, tenderness, guarding, rebound, rigid, mass Extremities exam: Present: normal inspection, normal capillary refill. Absent: pedal edema, calf tenderness Back exam: Present: normal inspection, paraspinal tenderness, vertebral tenderness. Absent: CVA tenderness (R), CVA tenderness (L) Neurological exam: Present: alert, reflexes normal. Absent: motor sensory deficit Skin exam: Present: warm, dry, intact, normal color. Absent: rash <Edmond Hernandez - Last Filed: 05/13/24 13:39> - General Exam Comments Initial Comments: Visual Physical Exam General: Well-appearing, nontoxic, no acute distress. Head: Normocephalic, atraumatic Eyes: PERRLA, EOMI ENT: Airway patent Chest: Nonlabored breathing Skin: No visual rash, normal skin tone Neuro: Alert and oriented 3 Musculoskeletal: No gross abnormalities (Dominick Garibay) Course Vital Signs 04/28/24 04/28/24 04/28/24 18:21 19:46 21:57 Temperature 98.3 F 98.8 F Pulse Rate 112 H 120 H 118 H Respiratory 20 22 20 Rate Blood Pressure 161/87 173/105 165/95 O2 Sat by Pulse 99 100 100 Oximetry 04/28/24 04/28/24 22:59 23:01 Temperature 98.2 F Pulse Rate 107 H Respiratory 20 Rate Blood Pressure 176/112 160/110 O2 Sat by Pulse 98 Oximetry Medical Decision Making <Dominick Garibay - Last Filed: 04/28/24 17:13> <Edmond Hernandez - Last Filed: 05/13/24 13:39> - Medical Decision Making I performed the quick note portion of this visit, electronically signed Dominick Garibay PA-C (Dominick Garibay) Was pt. sent in by a medical professional or institution (MAGGIE Oliveros, ANIMAL BIOLOGIST, urgent care, hospital, or skilled nursing...) When possible be specific @ -[No] Did you speak to anyone other than the patient for history (EMS, parent, family, police, friend...)? What history was obtained from this source @ -[No] Did you review nursing and triage notes (agree or disagree)? Why? @ -[I reviewed and agree with nursing and triage notes] Were old charts reviewed (outside hosp., previous admission, EMS record, old EKG, old radiological studies, urgent care reports/EKG's, skilled nursing records)? Report findings @ -[No old charts were reviewed] Differential Diagnosis (chest pain, altered mental status, abdominal pain women, abdominal pain men, vaginal bleeding, weakness, fever, dyspnea, syncope, he adache, dizziness, GI bleed, back pain, seizure, CVA, palpatations, mental health, musculoskeletal)? @ -[Differential Back Pain: Strain, zoster, cauda equina syndrome, epidural abscess, vertebral os teomyelitis, discitis, fracture, subluxation, disc herniation, DJD, spinal stenosis, dissection, AAA, pancreatitis, peptic ulcer disease, pyelonephritis, kidney stone, this is not meant to be an all-inclusive list. EKG interpreted by me (3pts min.). @ -[As above] X-rays interpreted by me (1pt min.). @ -[None done] CT interpreted by me (1pt min.). @ -[The patient had CT scan of the lumbosacral spine which I interpreted as negative for acute bony injury or evidence of cord compression. U/S interpreted by me (1pt. min.). @ -[None done] What testing was considered but not performed or refused? (CT, X-rays, U/S, labs)? Why? @ -[None] What meds were considered but not given or refused? Why? @ -[None] Did you discuss the management of the patient with other professionals (professionals i.e. , PA, ANIMAL BIOLOGIST, lab, RT, psych nurse, social services counselor, cartridge assembler, teacher, grants officer, foster care case manager)? Give summary @ -[No] Was smoking cessation discussed for >3mins.? @ -[No] Was critical care preformed (if so, how long)? @ -[No] Were there social determinants of health that impacted care today? How? (Homelessness, low income, unemployed, alcoholism, drug addiction, transportation, low edu. Level, literacy, decrease access to med. care, [place] [facility], rehab)? @ -[No] Was there de-escalation of care discussed even if they declined (Discuss DNR or withdrawal of care, Hospice)? DNR status @ -[No] What co-morbidities impacted this encounter? (DM, HTN, Smoking, COPD, CAD, Cancer, CVA, ARF, Chemo, Hep., AIDS, mental health diagnosis, sleep apnea, morbid obesity)? @ -[None] Was patient admitted / discharged? Hospital course, mention meds given and route, prescriptions, significant lab abnormalities, going to OR and other pertinent info. @ -[Patient is 58-year-old man with exacerbation of his chronic underlying back pain. No red flags associated with the episode. The patient's workup not revealing any signs of cauda equina or nerve compression. Patient having some relief with medication will follow with his specialist. Discussed return parameters. Undiagnosed new problem with uncertain prognosis? @ -[No] Drug Therapy requiring intensive monitoring for toxicity (Heparin, Nitro, Insuli n, Cardizem)? @ -[No] Were any procedures done? @ -[No] Diagnosis/symptom? @ -[Cute exacerbation of chronic back pain Acute, or Chronic, or Acute on Chronic? @ -[Acute on chronic Uncomplicated (without systemic symptoms) or Complicated (systemic symptoms)? @ -[Uncomplicated Side effects of treatment? @ -[No] Exacerbation, Progression, or Severe Exacerbation? @ -[No] Poses a threat to life or bodily function? How? (Chest pain, [place], [place], pneumonia, PE, COPD, DKA, ARF, appy, cholecystitis, CVA, Diverticulitis, Homicidal, Suicidal, threat to staff... and all critical care pts) @ -[No] (Edmond Hernandez) Disposition <Dominick Garibay - Last Filed: 04/28/24 17:13> Is patient prescribed a controlled substance at d/c from ED?: No <Edmond Hernandez - Last Filed: 05/13/24 13:39> Clinical Impression: Fall, Chronic back pain Disposition: HOME SELF-CARE Condition: Good Instructions (If sedation given, give patient instructions): Chronic Back Pain (DC) Referrals: González Muñiz MD [Primary Care Provider] - 1-2 days
[2024-04-28] MEDS: HYDROmorphone 1 MG/ML 1 ML SYRINGE IM STA ×2 (19:45→22:54)
[2024-04-28 21:58] VITALS: RESP 20
[2024-04-28] MEDS: ORPHENADRINE 30 MG/ML 2 ML VIAL IM STA (21:58)
--- NOTE | 2024-04-28 22:07 | CT ---
EXAMINATION TYPE: CT lumbar spine wo con CT DLP: 186.7 mGycm, Automated exposure control for dose reduction was used. DATE OF EXAM: 04/28/2024 9:55 PM COMPARISON: 03/07/2024. CLINICAL INDICATION: Male, 58 years old with history of fall injury; [facility], Pt c/o back pain after fall today. TECHNIQUE: Multiple axial images were obtained from the midportion of T11 through the sacroiliac luis nts. Soft tissue and bone windows in coronal and sagittal planes were obtained and reviewed. Contrast used: mL of , (None, if empty). Oral contrast used: (None, if empty). FINDINGS: Alignment: There are 5 lumbar type vertebral bodies within normal alignment. Bone: Fixation hardware at L4 3 to S1 appears intact. Multilevel degeneration with joint space narrow ing osteophyte formation and facet joint arthropathy. Neurostimulator leads and battery pack partiall y in the [id number]. No evidence of fracture. No significant spinal canal or neural foraminal sten osis. Discs: T12-L1: No spinal canal or neural foraminal stenosis is identified. L1-L2: No spinal canal or neural foraminal stenosis is identified. L2-L3: No spinal canal or neural foraminal stenosis is identified. L3-L4: No spinal canal or neural foraminal stenosis is identified. L4-L5: No spinal canal or neural foraminal stenosis is identified. L5-S1: No spinal canal or neural foraminal stenosis is identified. Other: Right renal cortical cyst. IMPRESSION: 1. Postsurgical changes to the spine hardware appears intact. No evidence of fracture. 2. Mild multilevel degeneration changes throughout spine. [facility], , 04/28/2024 10:04 PM
[2024-04-28 23:00] VITALS: PULSE 107; TEMP 98.2
[2024-04-28 23:01] VITALS: BP 160/110
== END 2024-04-28 23:04 | disposition home or self-care (01) ==
LOC: EC 17:04
DX: G89.29 Other chronic pain (principal); M54.2 Cervicalgia; Z88.6 Allergy status to analgesic agent; Z88.5 Allergy status to narcotic agent; Z88.8 Allergy status to other drugs, medicaments and biological substances; W19.XXXA Unspecified fall, initial encounter; Y93.01 Activity, walking, marching and hiking
CPT/HCPCS: 99284; 96372 ×3; 72131; J2360; J1171

== ENCOUNTER 2024-04-29 13:06 | Emergency (ER) | payer OTHER ==
--- NOTE | 2024-04-29 13:54 | ED ---
General Adult HPI - General Chief complaint: Back Pain/Injury Stated complaint: Urogenital recheck Time Seen by Provider: 04/29/24 13:31 Source: patient Mode of arrival: ambulatory Limitations: no limitations - History of Present Illness Initial comments: Dictation was produced using [employer] dictation software. please excuse any grammatical, word or spelling errors. Chief Complaint: 58-year-old male with back pain History of Present Illness: Patient is a 58-year-old male he is well-known to emergency department for back pain. Patient states that he sees PMNR doctor now. He was here last night where he was seen had CT scan discharged home. Patient states he has back pain similar to his usual chronic back pain. It was recommended to him by PMNR doctor to get injections in his back. Patient states he is having bowel bladder control issues. Denies any saddle anesthesia. No fever, chills or night sweats. The ROS documented in this emergency department record has been reviewed and confirmed by me. Those systems with pertinent positive or negative responses have been documented in the HPI. All other systems are other negative and/or noncontributory. - Related Data Home Medications Medication Instructions Recorded Confirmed Insulin Lispro [humaLOG Kwikpen] See Protocol SQ ACHS 06/16/21 04/12/24 Insulin Glargine,Hum.rec.anlog 36 units SQ DAILY 10/20/22 04/12/24 [Lantus Solostar Pen] Cyanocobalamin [Vitamin B-12 1,000 mcg SQ Q7D 03/25/24 04/12/24 Injection] Gabapentin 600 mg PO TID 03/25/24 04/12/24 Insulin Lispro [humaLOG Kwikpen] 10 unit SQ AC-TID 03/25/24 04/12/24 Valsartan [Diovan] 80 mg PO DAILY 03/25/24 04/12/24 methocarbamoL [Robaxin-750] 750 mg PO TID 03/25/24 04/12/24 oxyCODONE-APAP 7.5-325MG [Percocet 1 tab PO QID 03/25/24 04/12/24 7.5-325 mg] Dulaglutide [Trulicity] 1.5 mg SQ SA 04/12/24 04/12/24 carvediloL [Coreg] 3.125 mg PO BID 04/12/24 04/12/24 Allergies Allergy/AdvReac Type Severity Reaction Status Date / Time doxycycline Allergy Swelling Verified 04/29/24 13:13 ketorolac tromethamine Allergy Rash/Hives Verified 04/29/24 13:13 [From Toradol] morphine Allergy Rash/Hives Verified 04/29/24 13:13 metoclopramide HCl AdvReac Dystonic Verified 04/29/24 13:13 [From Reglan] Reaction prochlorperazine edisylate AdvReac Dystonic Verified 04/29/24 13:13 [From Compazine] Reaction prochlorperazine maleate AdvReac Dystonic Verified 04/29/24 13:13 [From Compazine] Reaction Review of Systems ROS Statement: Those systems with pertinent positive or pertinent negative responses have been documented in the HPI. ROS Other: All systems not noted in ROS Statement are negative. Past Medical History Past Medical History: Asthma, Coronary Artery Disease (CAD), Chest Pain / Angina, Diabetes Mellitus, GERD/Reflux, GI Bleed, Hyperlipidemia, Hypertension, Myocardial Infarction ([place]), Mitral Valve Prolapse (MVP), Pulmonary Embolus (PE), Sleep Apnea/CPAP/BIPAP Additional Past Medical History / Comment(s): Asthmatic bronchitis-chronic, IDDM type II, neuropathy bilateral feet, lower and upper GI bleeds, PUD, diverticulitis, colectomy d/t benign mass/intusseption, BPH, renal cysts, nephrolithiais, UTI with sepsis, chronic back pain 2ndary to herniated lumbar discs/sciatica, JARED does not use his Cpap, MVP, murmur, chronic dysphagia Last Myocardial Infarction Date:: 2011 History of Any Multi-Drug Resistant Organisms: C-DIFF, MRSA Date of last positivie culture/infection: 2015 MDRO Source:: left axilla Past Surgical History: Appendectomy, Back Surgery, Cholecystectomy, Heart Catheterization, Hernia Repair, Orthopedic Surgery Additional Past Surgical History / Comment(s): Lumbar decompression/fusion/laminectomy, spinal stimulator, T lift procedure, L inguinal hernia repair, multiple ESWLs/stents/double J caths, colonoscopy, 02/2020 colectomy, EGDs for food obstructions and dilations, NERVE STIMULATOR Past Anesthesia/Blood Transfusion Reactions: No Reported Reaction Past Psychological History: No Psychological Hx Reported Smoking Status: Never smoker Past Alcohol Use History: None Reported Past Drug Use History: None Reported - Past Family History Father Family Medical History: Chest Pain / Angina Additional Family Medical History / Comment(s): "lung problems" Mother Family Medical History: Blood Disorder, Cancer, Chest Pain / Angina, Congestive Heart Failure (CHF), Osteoarthritis (OA), Thyroid Disorder Additional Family Medical History / Comment(s): "supervisor canvas products cancer" blood clots General Exam - General Exam Comments Initial Comments: PHYSICAL EXAM: General Impression: Alert and oriented x3, not in acute distress HEENT: Normocephalic atraumatic, extra-ocular movements intact, pupils equal and reactive to light bilaterally, mucous membranes moist. Cardiovascular: Heart regular rate and rhythm Chest: Able to complete full sentences, no retractions, no tachypnea Abdomen: abdomen soft, non-tender, non-distended, no organomegaly Musculoskeletal: Pulses present and equal in all extremities, no peripheral edema Motor: no focal deficits noted Neurological: CN II-XII grossly intact, no focal motor or sensory deficits noted Skin: Intact with no visualized rashes Psych: Normal affect and mood Limitations: no limitations Course Vital Signs 04/29/24 13:10 Temperature 98 F Pulse Rate 16 L Respiratory 122 H Rate Blood Pressure 173/104 O2 Sat by Pulse 97 Oximetry Medical Decision Making - Medical Decision Making Was pt. sent in by a medical professional or institution (MAGGIE Oliveros, SALES EXHIBITOR, urgent care, hospital, or long-term...) When possible be specific @ -No Did you speak to anyone other than the patient for history (EMS, parent, family, police, friend...)? What history was obtained from this source @ -No Did you review nursing and triage notes (agree or disagree)? Why? @ -I reviewed and agree with nursing and triage notes Were old charts reviewed (outside hosp., previous admission, EMS record, old EKG, old radiological studies, urgent care reports/EKG's, long-term records)? Report findings @ -Chart review was performed showing multiple ER visits and hospital admissions for back pain all which did not show any evidence of cauda equina or cord compression Differential Diagnosis (chest pain, altered mental status, abdominal pain women, abdominal pain men, vaginal bleeding, musculoskeletal, weakness, fever, dyspnea, syncope, headache, dizziness, GI bleed, back pain, seizure, CVA, palpatations, mental health)? @ -Differential Back Pain: Strain, zoster, cauda equina syndrome, epidural abscess, vertebral osteomyelitis, discitis, fracture, subluxation, disc herniation, DJD, spinal stenosis, dissection, AAA, pancreatitis, peptic ulcer disease, pyelonephritis, kidney stone, this is not meant to be an all-inclusive list. EKG interpreted by me (3pts min.). @ -None done X-rays interpreted by me (1pt min.). @ -None done CT interpreted by me (1pt min.). @ -None done U/S interpreted by me (1pt. min.). @ -None done What testing was considered but not performed or refused? (CT, X-rays, U/S, labs)? Why? @ -None What meds were considered but not given or refused? Why? @ -None Was smoking cessation discussed for >3mins.? @ -No Were there social determinants of health that impacted care today? How? (Homelessness, low income, unemployed, alcoholism, drug addiction, transportation, low edu. Level, literacy, decrease access to med. care, care home, rehab)? @ -Opiate use disorder Was there de-escalation of care discussed even if they declined (Discuss DNR or withdrawal of care, Hospice)? DNR status @ -No What co-morbidities impacted this encounter? (DM, HTN, Smoking, COPD, CAD, Cancer, CVA, ARF, Chemo, Hep., AIDS, mental health diagnosis, sleep apnea, morbid obesity)? @ -None Was patient admitted / discharged? Hospital course, mention meds given and route, prescriptions, significant lab abnormalities, going to OR and other pertinent info. @ -58-year-old male presents emergency department with acute on chronic back pain. He is well-known to emergency department for back pain. Vital signs stable. I have seen this patient multiple occasions he appears to be at baseline. He has been admitted multiple occasions with negative workups. Patient given analgesics and discharge. Did you discuss the management of the patient with other professionals (professionals i.e. , PA, SALES EXHIBITOR, lab, RT, psych nurse, social sciences chair, inbound call center representative, teacher, staff air defense officer, case resource manager)? Give summary @ -No Was critical care preformed (if so, how long)? @ -No Undiagnosed new problem with uncertain prognosis? @ -No Drug Therapy requiring intensive monitoring for toxicity (Heparin, Nitro, Insulin, Cardizem)? @ -No Were any procedures done? @ -No Diagnosis/symptom? Acute, or Chronic, or Acute on Chronic? Uncomplicated (without systemic symptoms) or Complicated (systemic symptoms)? @ -Acute on chronic back pain Side effects of treatment? @ -No Exacerbation, Progression, or Severe Exacerbation? @ -No Poses a threat to life or bodily function? How? (Chest pain, [place], [place], pneumonia, PE, COPD, DKA, ARF, appy, cholecystitis, CVA, Diverticulitis, Homicidal, Suicidal, threat to staff... and all critical care pts) @ -No Disposition Clinical Impression: Back pain Disposition: HOME SELF-CARE Condition: Good Instructions (If sedation given, give patient instructions): Acute Low Back Pain (ED) Is patient prescribed a controlled substance at d/c from ED?: No Referrals: González Muñiz MD [Primary Care Provider] - 1-2 days Time of Disposition: 13:54
[2024-04-29] MEDS: HYDROmorphone 1 MG/ML 1 ML SYRINGE IM STA (14:11)
[2024-04-29 14:17] VITALS: BP 164/99; PULSE 95; RESP 16; TEMP 98.9
== END 2024-04-29 14:37 | disposition home or self-care (01) ==
LOC: EC 13:06
CPT/HCPCS: 96372; 99283

== ENCOUNTER 2024-05-06 12:34 | Emergency (ER) | payer OTHER ==
[2024-05-06 13:17] VITALS: TEMP 98.4
--- NOTE | 2024-05-06 13:51 | ED ---
Chest Pain HPI - General Source: patient, RN notes reviewed Mode of arrival: ambulatory Limitations: no limitations <Karson Silverman - Last Filed: 05/06/24 13:50> <Gatito Casas - Last Filed: 05/06/24 17:27> - General Chief Complaint: Chest Pain Stated Complaint: Chest pain Time Seen by Provider: 05/06/24 12:51 - History of Present Illness Initial Comments: Quick [id number] male presents emergency department with chief complaint of chest pain, hyperglycemia. Patient states that he has had pain started earlier this morning. Patient states centrocytes he also states his blood sugar has been elevated for last 2 days. (Karson Silverman) - Related Data Home Medications Medication Instructions Recorded Confirmed Insulin Lispro [humaLOG Kwikpen] See Protocol SQ ACHS 06/16/21 04/29/24 Insulin Glargine,Hum.rec.anlog 36 units SQ DAILY 10/20/22 04/29/24 [Lantus Solostar Pen] Cyanocobalamin [Vitamin B-12 1,000 mcg SQ TU 03/25/24 04/29/24 Injection] Gabapentin 600 mg PO TID 03/25/24 04/29/24 Insulin Lispro [humaLOG Kwikpen] 10 unit SQ AC-TID 03/25/24 04/29/24 Valsartan [Diovan] 80 mg PO DAILY 03/25/24 04/29/24 methocarbamoL [Robaxin-750] 750 mg PO TID 03/25/24 04/29/24 Dulaglutide [Trulicity] 1.5 mg SQ SA 04/12/24 04/29/24 carvediloL [Coreg] 3.125 mg PO BID 04/12/24 04/29/24 oxyCODONE-APAP 5-325MG [Percocet 1 tab PO QID 04/29/24 04/29/24 5-325 mg] Allergies Allergy/AdvReac Type Severity Reaction Status Date / Time doxycycline Allergy Swelling Verified 05/06/24 13:12 ketorolac tromethamine Allergy Rash/Hives Verified 05/06/24 13:12 [From Toradol] morphine Allergy Rash/Hives Verified 05/06/24 13:12 metoclopramide HCl AdvReac Dystonic Verified 05/06/24 13:12 [From Reglan] Reaction prochlorperazine edisylate AdvReac Dystonic Verified 05/06/24 13:12 [From Compazine] Reaction prochlorperazine maleate AdvReac Dystonic Verified 05/06/24 13:12 [From Compazine] Reaction Review of Systems ROS Other: All systems not noted in ROS Statement are negative. <Karson Silverman - Last Filed: 05/06/24 13:50> ROS Other: All systems not noted in ROS Statement are negative. <Gatito Casas - Last Filed: 05/06/24 17:27> ROS Statement: Those systems with pertinent positive or pertinent negative responses have been documented in the HPI. EKG Findings - EKG Comments: EKG Findings:: EKG is tachycardia 123 VT 230 QRS 1 7 QTc 411 - EKG Results: EKG: interpreted by ERMD <Gatito Casas - Last Filed: 05/06/24 17:27> Past Medical History Past Medical History: Asthma, Coronary Artery Disease (CAD), Chest Pain / Angina, Diabetes Mellitus, GERD/Reflux, GI Bleed, Hyperlipidemia, Hypertension, Myocardial Infarction ([place]), Mitral Valve Prolapse (MVP), Pulmonary Embolus (PE), Sleep Apnea/CPAP/BIPAP Additional Past Medical History / Comment(s): Asthmatic bronchitis-chronic, IDDM type II, neuropathy bilateral feet, lower and upper GI bleeds, PUD, diverticulitis, colectomy d/t benign mass/intusseption, BPH, renal cysts, nephrolithiais, UTI with sepsis, chronic back pain 2ndary to herniated lumbar discs/sciatica, JARED does not use his Cpap, MVP, murmur, chronic dysphagia Last Myocardial Infarction Date:: 2011 History of Any Multi-Drug Resistant Organisms: C-DIFF, MRSA Date of last positivie culture/infection: 2015 MDRO Source:: left axilla Past Surgical History: Appendectomy, Back Surgery, Cholecystectomy, Heart Catheterization, Hernia Repair, Orthopedic Surgery Additional Past Surgical History / Comment(s): Lumbar decompression/fusion/laminectomy, spinal stimulator, T lift procedure, L inguinal hernia repair, multiple ESWLs/stents/double J caths, colonoscopy, 02/2020 colectomy, EGDs for food obstructions and dilations, NERVE STIMULATOR Past Anesthesia/Blood Transfusion Reactions: No Reported Reaction Past Psychological History: No Psychological Hx Reported Smoking Status: Never smoker Past Alcohol Use History: None Reported Past Drug Use History: None Reported - Past Family History Father Family Medical History: Chest Pain / Angina Additional Family Medical History / Comment(s): "lung problems" Mother Family Medical History: Blood Disorder, Cancer, Chest Pain / Angina, Congestive Heart Failure (CHF), Osteoarthritis (OA), Thyroid Disorder Additional Family Medical History / Comment(s): "parks recreation coordinator cancer" blood clots <Karson Silverman - Last Filed: 05/06/24 13:50> General Exam Limitations: no limitations <Karson Silverman - Last Filed: 05/06/24 13:50> - General Exam Comments Initial Comments: Visual Physical Exam Vital signs reviewed General: Well-appearing, nontoxic, no acute distress. Head: Normocephalic, atraumatic Eyes: PERRLA, EOMI ENT: Airway patent Chest: Nonlabored breathing Skin: No visual rash, normal skin tone Neuro: Alert and oriented 3 Musculoskeletal: No gross abnormalities (Karson Silverman) Course Vital Signs 05/06/24 05/06/24 13:12 17:01 Temperature 98.4 F Pulse Rate 124 H 112 H Respiratory 22 21 Rate Blood Pressure 154/97 141/103 O2 Sat by Pulse 98 99 Oximetry Chest Pain MDM <Karson Silverman - Last Filed: 05/06/24 13:50> - MDM I completed the quick note portion of this chart signed Karson Silverman PA-C (Karson Silverman) Disposition <Karson Silverman - Last Filed: 05/06/24 13:50> <Gatito Casas - Last Filed: 05/06/24 17:27> Referrals: González Muñiz MD [Primary Care Provider] - 1-2 days
--- NOTE | 2024-05-06 15:21 | XR ---
EXAMINATION TYPE: XR chest 2V DATE OF EXAM: 05/06/2024 COMPARISON: 03/25/2024 HISTORY: 58-year-old male with chest pain and dizziness TECHNIQUE: PA and lateral views FINDINGS: Heart normal size. Mild interstitial prominence and hyperinflation is unchanged. Intervertebral disc prostheses in the cervical spine. Spinal stimulator array centered along the lower thoracic spinal ca nal.-Mid and lower thoracic spine. No consolidation or pleural effusion. IMPRESSION: COPD and chronic changes. No acute process seen. [facility], , 05/06/2024 3:18 PM
[2024-05-06 17:45] VITALS: RESP 20
[2024-05-06] MEDS: HYDROmorphone 1 MG/ML 1 ML SYRINGE IM STA (17:45)
[2024-05-06 17:59] VITALS: BP 184/98; PULSE 104
== END 2024-05-06 18:00 | disposition home or self-care (01) ==
LOC: EC 12:34
CPT/HCPCS: 71046; 93005; 96372; 99285

== ENCOUNTER 2024-06-14 14:56 | Emergency (ER) | payer OTHER ==
[2024-06-14 15:03] VITALS: RESP 20; TEMP 98.2
--- NOTE | 2024-06-14 15:26 | ED ---
General Adult HPI - General Chief complaint: Fall Stated complaint: Fall, weakness Time Seen by Provider: 06/14/24 15:13 Source: patient, RN notes reviewed, old records reviewed Mode of arrival: wheelchair Limitations: no limitations - History of Present Illness Initial comments: 58-year-old male with chronic back pain presents for evaluation of low back pain and numbness to the right lower extremity. Patient states he was recently at [facility] where he underwent MRI. He states that they noted some narrowing of the spinal canal related to his spinal cord stimulator. Patient states he is scheduled to see orthopedic surgeon in the new year. They did not operate on recent admission. Patient currently on oral pain medication which she receives through the pain clinic. - Related Data Home Medications Medication Instructions Recorded Confirmed Insulin Lispro [humaLOG Kwikpen] See Protocol SQ ACHS 06/16/21 06/14/24 Insulin Glargine,Hum.rec.anlog 50 units SQ DAILY 10/20/22 06/14/24 [Lantus Solostar Pen] Gabapentin 600 mg PO TID 03/25/24 06/14/24 Insulin Lispro [humaLOG Kwikpen] 10 unit SQ TID-W/MEALS 03/25/24 06/14/24 methocarbamoL [Robaxin-750] 750 mg PO TID 03/25/24 06/14/24 oxyCODONE-APAP 5-325MG [Percocet 1 tab PO QID 04/29/24 06/14/24 5-325 mg] Isosorbide Mononitrate ER [Imdur] 60 mg PO DAILY 06/14/24 06/14/24 Nitroglycerin Sl Tabs [Nitrostat] 0.4 mg SUBLINGUAL Q5M PRN 06/14/24 06/14/24 Pantoprazole [Protonix] 40 mg PO BID 06/14/24 06/14/24 carvediloL [Coreg] 25 mg PO BID 06/14/24 06/14/24 dilTIAZem HCL 30 mg PO DAILY 06/14/24 06/14/24 Allergies Allergy/AdvReac Type Severity Reaction Status Date / Time doxycycline Allergy Swelling Verified 06/14/24 15:48 ketorolac tromethamine Allergy Rash/Hives Verified 06/14/24 15:48 [From Toradol] morphine Allergy Rash/Hives Verified 06/14/24 15:48 metoclopramide HCl AdvReac Dystonic Verified 06/14/24 15:48 [From Reglan] Reaction prochlorperazine edisylate AdvReac Dystonic Verified 06/14/24 15:48 [From Compazine] Reaction prochlorperazine maleate AdvReac Dystonic Verified 06/14/24 15:48 [From Compazine] Reaction Review of Systems ROS Statement: Those systems with pertinent positive or pertinent negative responses have been documented in the HPI. ROS Other: All systems not noted in ROS Statement are negative. Past Medical History Past Medical History: Asthma, Coronary Artery Disease (CAD), Chest Pain / Angina, Diabetes Mellitus, GERD/Reflux, GI Bleed, Hyperlipidemia, Hypertension, [place]ocardial Infarction ([place]), Mitral Valve Prolapse (MVP), Pulmonary Embolus (PE), Sleep Apnea/CPAP/BIPAP Additional Past Medical History / Comment(s): Asthmatic bronchitis-chronic, IDDM type II, neuropathy bilateral feet, lower and upper GI bleeds, PUD, diverticulitis, colectomy d/t benign mass/intusseption, BPH, renal cysts, nephrolithiais, UTI with sepsis, chronic back pain 2ndary to herniated lumbar discs/sciatica, JARED does not use his Cpap, MVP, murmur, chronic dysphagia Last Myocardial Infarction Date:: 2011 History of Any Multi-Drug Resistant Organisms: C-DIFF, MRSA Date of last positivie culture/infection: 2015 MDRO Source:: left axilla Past Surgical History: Appendectomy, Back Surgery, Cholecystectomy, Heart Catheterization, Hernia Repair, Orthopedic Surgery Additional Past Surgical History / Comment(s): Lumbar decompression/fusion/laminectomy, spinal stimulator, T lift procedure, L inguinal hernia repair, multiple ESWLs/stents/double J caths, colonoscopy, 02/2020 colectomy, EGDs for food obstructions and dilations, NERVE STIMULATOR Past Anesthesia/Blood Transfusion Reactions: No Reported Reaction Past Psychological History: No Psychological Hx Reported Smoking Status: Never smoker Past Alcohol Use History: None Reported Past Drug Use History: None Reported - Past Family History Father Family Medical History: Chest Pain / Angina Additional Family Medical History / Comment(s): "lung problems" Mother Family Medical History: Blood Disorder, Cancer, Chest Pain / Angina, Congestive Heart Failure (CHF), Osteoarthritis (OA), Thyroid Disorder Additional Family Medical History / Comment(s): "procurement consultant cancer" blood clots General Exam Limitations: no limitations General appearance: alert, in no apparent distress Head exam: Present: atraumatic, normocephalic Eye exam: Present: normal appearance, PERRL ENT exam: Present: normal exam Neck exam: Present: normal inspection. Absent: tenderness, meningismus Respiratory exam: Present: normal lung sounds bilaterally. Absent: respiratory distress, wheezes Cardiovascular Exam: Present: regular rate, normal rhythm GI/Abdominal exam: Present: soft. Absent: distended, tenderness Rectal exam: Present: normal inspection, other (Retained formed stool). Absent: hemorrhoids Extremities exam: Present: normal inspection, normal capillary refill, other (4 out of 5 strength in the right lower extremity left lower extremity 5 out of 5). Absent: pedal edema Back exam: Present: normal inspection Neurological exam: Present: alert, oriented X3 Skin exam: Present: warm, dry, intact Course Vital Signs 06/14/24 15:00 Temperature 98.2 F Pulse Rate 112 H Respiratory 20 Rate Blood Pressure 154/95 O2 Sat by Pulse 98 Oximetry Medical Decision Making - Medical Decision Making Was pt. sent in by a medical professional or institution (, PA, STOCK PARTS INSPECTOR, urgent care, hospital, or alf...) When possible be specific @ -No Did you speak to anyone other than the patient for history (EMS, parent, family, police, friend...)? What history was obtained from this source @ -No Did you review nursing and triage notes (agree or disagree)? Why? @ -I reviewed and agree with nursing and triage notes Were old charts reviewed (outside hosp., previous admission, EMS record, old EKG, old radiological studies, urgent care reports/EKG's, alf records)? Report findings @ -No old charts were reviewed Differential Musculoskeletal: Chronic low back pain, Muscular strain, contusion, ligament sprain, fracture, arthritis, septic arthritis, bursitis, cellulitis, muscle spasm, nerve compression, DVT, arterial occlusion, herpes zoster, electrolyte abnormality, tumor.... This is not meant to be in all inclusive list EKG interpreted by me (3pts min.). @ -As above X-rays interpreted by me (1pt min.). @ -None done CT interpreted by me (1pt min.). @ -None done U/S interpreted by me (1pt. min.). @ -None done What testing was considered but not performed or refused? (CT, X-rays, U/S, labs)? Why? @ -None What meds were considered but not given or refused? Why? @ -None Did you discuss the management of the patient with other professionals (professionals i.e. DrSilvestre, PA, STOCK PARTS INSPECTOR, lab, RT, psych nurse, protective services social worker, scene painter, teacher, business banking officer, registered nurse hh case manager)? Give summary @ -No Was smoking cessation discussed for >3mins.? @ -No Was critical care preformed (if so, how long)? @ -No Were there social determinants of health that impacted care today? How? (Homelessness, low income, unemployed, alcoholism, drug addiction, transportation, low edu. Level, literacy, decrease access to med. care, snf, rehab)? @ -No Was there de-escalation of care discussed even if they declined (Discuss DNR or withdrawal of care, Hospice)? DNR status @ -No What co-morbidities impacted this encounter? (DM, HTN, Smoking, COPD, CAD, Cancer, CVA, ARF, Chemo, Hep., AIDS, mental health diagnosis, sleep apnea, morbid obesity)? @ -Multiple comorbidities, chronic low back pain for which she does follow with both pain management and orthopedics and had a recent MRI at outside hospital. Was patient admitted / discharged? Hospital course, mention meds given and route, prescriptions, significant lab abnormalities, going to OR and other pertinent info. @ -58-year-old male with acute on chronic low back pain. Patient states he was seen at outside hospital within the past 1 week where he did undergo MRI and states he is scheduled to see orthopedic surgery in the new year with no formal plan according to the patient for any specific operative repair possible removal of spinal stimulator. Patient does exhibit pain seeking behavior. He has multiple medication allergies limiting treatment of acute pain. I do provide Decadron for inflammation and pain control. I do feel this patient would be best served with continued care through his pain management center, primary care and current orthopedic team. He should contact these providers for further evaluation. Undiagnosed new problem with uncertain prognosis? @ -No Drug Therapy requiring intensive monitoring for toxicity (Heparin, Nitro, Insulin, Cardizem)? @ -No Were any procedures done? @ -No Diagnosis/symptom? @ -[chronic pain Acute, or Chronic, or Acute on Chronic? @ -Chronic Uncomplicated (without systemic symptoms) or Complicated (systemic symptoms)? @ -[Complicated Side effects of treatment? @ -[No Exacerbation, Progression, or Severe Exacerbation? @ -No Poses a threat to life or bodily function? How? (Chest pain, [place], [place], pneumonia, PE, COPD, DKA, ARF, appy, cholecystitis, CVA, Diverticulitis, Homicidal, Suicidal, threat to staff... and all critical care pts) @ -No Disposition Clinical Impression: Chronic back pain Disposition: HOME SELF-CARE Condition: Fair Instructions (If sedation given, give patient instructions): Chronic Back Pain (DC) Additional Instructions: Please follow-up with your pain management team and your orthopedic surgeon. Please contact your primary care provider for further recommendations. Is patient prescribed a controlled substance at d/c from ED?: No Referrals: González Muñiz MD [Primary Care Provider] - 1-2 days Time of Disposition: 16:27
[2024-06-14] MEDS: DEXAMETHASONE SOD PHOSPHATE 10 MG/ML 1 ML VIAL IM STA (16:35)
[2024-06-14 17:39] VITALS: BP 166/99; PULSE 111
== END 2024-06-14 17:39 | disposition home or self-care (01) ==
LOC: EC 14:56
DX: G89.29 Other chronic pain (principal); M54.9 Dorsalgia, unspecified; Z88.6 Allergy status to analgesic agent; Z88.8 Allergy status to other drugs, medicaments and biological substances
CPT/HCPCS: 99283; 96372; J1100

== ENCOUNTER 2024-07-04 23:57 | Emergency (ER) | payer OTHER ==
[2024-07-05 00:05] VITALS: TEMP 98.7
--- NOTE | 2024-07-05 00:44 | ED ---
Fall HPI - General Chief Complaint: Fall Stated Complaint: Fall Time Seen by Provider: 07/05/24 00:00 Source: patient, RN notes reviewed Mode of arrival: EMS Limitations: no limitations - History of Present Illness Initial Comments: This is a 58-year-old male who presents to the emergency department for a fall. Patient slipped on ice this afternoon and fell, injuring his back. He just had surgery on his thoracic spine at [facility] a week ago and is concerned about a problem with that. All of the pain is localized to the thoracic spine. Denies any loss of bowel/bladder control or saddle anesthesia. Denies hitting his head or any loss of consciousness. He is on Eliquis. MD Complaint: fall - Related Data Home Medications Medication Instructions Recorded Confirmed Insulin Lispro [humaLOG Kwikpen] See Protocol SQ ACHS 06/16/21 06/14/24 Insulin Glargine,Hum.rec.anlog 50 units SQ DAILY 10/20/22 06/14/24 [Lantus Solostar Pen] Gabapentin 600 mg PO TID 03/25/24 06/14/24 Insulin Lispro [humaLOG Kwikpen] 10 unit SQ TID-W/MEALS 03/25/24 06/14/24 methocarbamoL [Robaxin-750] 750 mg PO TID 03/25/24 06/14/24 oxyCODONE-APAP 5-325MG [Percocet 1 tab PO QID 04/29/24 06/14/24 5-325 mg] Isosorbide Mononitrate ER [Imdur] 60 mg PO DAILY 06/14/24 06/14/24 Nitroglycerin Sl Tabs [Nitrostat] 0.4 mg SUBLINGUAL Q5M PRN 06/14/24 06/14/24 Pantoprazole [Protonix] 40 mg PO BID 06/14/24 06/14/24 carvediloL [Coreg] 25 mg PO BID 06/14/24 06/14/24 dilTIAZem HCL 30 mg PO DAILY 06/14/24 06/14/24 Allergies Allergy/AdvReac Type Severity Reaction Status Date / Time doxycycline Allergy Swelling Verified 06/14/24 15:48 ketorolac tromethamine Allergy Rash/Hives Verified 06/14/24 15:48 [From Toradol] morphine Allergy Rash/Hives Verified 06/14/24 15:48 metoclopramide HCl AdvReac Dystonic Verified 06/14/24 15:48 [From Reglan] Reaction prochlorperazine edisylate AdvReac Dystonic Verified 06/14/24 15:48 [From Compazine] Reaction prochlorperazine maleate AdvReac Dystonic Verified 06/14/24 15:48 [From Compazine] Reaction Review of Systems ROS Statement: Those systems with pertinent positive or pertinent negative responses have been documented in the HPI. ROS Other: All systems not noted in ROS Statement are negative. Past Medical History Past Medical History: Asthma, Coronary Artery Disease (CAD), Chest Pain / Angina, Diabetes Mellitus, GERD/Reflux, GI Bleed, Hyperlipidemia, Hypertension, Myocardial Infarction ([place]), Mitral Valve Prolapse (MVP), Pulmonary Embolus (PE), Sleep Apnea/CPAP/BIPAP Additional Past Medical History / Comment(s): Asthmatic bronchitis-chronic, IDDM type II, neuropathy bilateral feet, lower and upper GI bleeds, PUD, diverticulitis, colectomy d/t benign mass/intusseption, BPH, renal cysts, nephrolithiais, UTI with sepsis, chronic back pain 2ndary to herniated lumbar discs/sciatica, JARED does not use his Cpap, MVP, murmur, chronic dysphagia Last Myocardial Infarction Date:: 2011 History of Any Multi-Drug Resistant Organisms: C-DIFF, MRSA Date of last positivie culture/infection: 2015 MDRO Source:: left axilla Past Surgical History: Appendectomy, Back Surgery, Cholecystectomy, Heart Catheterization, Hernia Repair, Orthopedic Surgery Additional Past Surgical History / Comment(s): Lumbar decompression/fusion/laminectomy, spinal stimulator, T lift procedure, L inguinal hernia repair, multiple ESWLs/stents/double J caths, colonoscopy, 02/2020 colectomy, EGDs for food obstructions and dilations, NERVE STIMULATOR Past Anesthesia/Blood Transfusion Reactions: No Reported Reaction Past Psychological History: No Psychological Hx Reported Smoking Status: Never smoker Past Alcohol Use History: None Reported Past Drug Use History: None Reported - Past Family History Father Family Medical History: Chest Pain / Angina Additional Family Medical History / Comment(s): "lung problems" Mother Family Medical History: Blood Disorder, Cancer, Chest Pain / Angina, Congestive Heart Failure (CHF), Osteoarthritis (OA), Thyroid Disorder Additional Family Medical History / Comment(s): "wood boat builder 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 Absent: respiratory distress, wheezes, rales, rhonchi, stridor Cardiovascular Exam: Present: regular rate, normal rhythm, normal heart sounds. Absent: systolic murmur, diastolic murmur, rubs, gallop, clicks Back exam: Present: other (Incision over the thoracic spine is intact. No surrounding swelling or ecchymosis.) Neurological exam: Present: alert, oriented X3, CN II-XII intact Psychiatric exam: Present: normal affect, normal mood Skin exam: Present: warm, dry, intact, normal color. Absent: rash Course Vital Signs 07/05/24 07/05/24 00:00 02:41 Temperature 98.7 F Pulse Rate 102 H 119 H Respiratory 20 18 Rate Blood Pressure 176/89 149/97 O2 Sat by Pulse 99 99 Oximetry Medical Decision Making - Medical Decision Making This is a 58-year-old male who presents to the emergency department for back pain. Was pt. sent in by a medical professional or institution? @ -No Did you speak to anyone other than the patient for history? @ -No Did you review nursing and triage notes? @ -Yes, and I agree, it is accurate with regards to the patient's symptoms. Were old charts reviewed? @ -No Differential Diagnosis? @ -Differential Back Pain: Strain, zoster, cauda equina syndrome, epidural abscess, vertebral osteomyelitis, discitis, fracture, subluxation, disc herniation, DJD, spinal stenosis, dissection, AAA, pancreatitis, peptic ulcer disease, pyelonephritis, kidney stone, this is not meant to be an all-inclusive list. EKG interpreted by me (3pts min.)? @ -Not obtained X-rays interpreted by me (1pt min.)? @ -Not obtained CT interpreted by me (1pt min.)? @ -CT scan of the thoracic and lumbar spine obtained. My interpretation identi fies no acute fractures. U/S interpreted by me (1pt. min.)? @ -Not obtained What testing was considered but not performed? (CT, X-rays, U/S, labs)? Why? @ -None What meds were considered but not given? Why? @ -None Did you discuss the management of the patient with other professionals? @ -No Did you reconcile home meds? @ -No Was smoking cessation discussed for >3mins.? @ -No Was critical care preformed (if so, how long)? @ -No Were there social determinants of health that impacted care today? How? (Homelessness, low income, unemployed, alcoholism, drug addiction, transportation, low edu. Level, literacy, decrease access to med. care, custodial, rehab)? @ -No Was there de-escalation of care discussed even if they declined? (Discuss DNR or withdrawal of care, Hospice)? @ -No What co-morbidities impacted this encounter? (DM, HTN, Smoking, COPD, CAD, Cancer, CVA, Hep., AIDS, mental health diagnosis, sleep apnea, morbid obesity)? @ -Degenerative disc disease Was patient admitted / discharged? @ -Discharged. CT scan of the thoracic and lumbar spine obtained. No acute fractures or problems with his surgical site were identified. His incision was also intact with no signs of acute injury. Pain treated in the emergency department. Patient discharged home in stable condition. Case discussed with ED attending Dr. Hernandez. Return precautions reviewed in depth, the patient is instructed to return to the emergency department with any new, worsening, or concerning symptoms. Patient verbalized understanding. Undiagnosed new problem with uncertain prognosis? @ -None Drug Therapy requiring intensive monitoring for toxicity (Heparin, Nitro, Insulin, Cardizem)? @ -None Were any procedures done? @ -None Diagnosis/symptom? @ -Fall, back pain Acute, or Chronic, or Acute on Chronic? @ -Acute Uncomplicated (without systemic symptoms) or Complicated (systemic symptoms)? @ -Uncomplicated Side effects of treatment? @ -None Exacerbation, Progression, or Severe Exacerbation] @ -Not applicable Poses a threat to life or bodily function? @ -No - Radiology Data Radiology results: report reviewed, image reviewed Disposition Clinical Impression: Fall, Back pain Disposition: HOME SELF-CARE Instructions (If sedation given, give patient instructions): Fall Prevention for Older Adults (ED) Additional Instructions: Return to the emergency department with any new, worsening, or concerning symptoms. Follow up with your primary care provider in 1-2 days. Is patient prescribed a controlled substance at d/c from ED?: No Referrals: González Muñiz MD [Primary Care Provider] - 1-2 days Time of Disposition: 02:09
[2024-07-05] MEDS: HYDROmorphone 1 MG/ML 1 ML SYRINGE IVP STA (00:57)
--- NOTE | 2024-07-05 01:44 | CT ---
1793 images EXAM: CT Thoracic Spine Without Intravenous Contrast CLINICAL HISTORY: Back pain after fall, recent surgery TECHNIQUE: Axial computed tomography images of the thoracic spine without intravenous contrast. CTDI is 17.9 mGy and DLP is 1167 mGy-cm. This CT exam was performed using one or more of the following dose reduction techniques: automated exposure control, adjustment of the mA and/or kV according to patient size, and/or use of iterative reconstruction technique. Coronal and sagittal reformatted images were created and reviewed. COMPARISON: No relevant prior studies available. FINDINGS: Vertebrae: Soft tissue scarring mixed with midline seroma which measures of bowel at 23 mm AP, 20 mm transverse and 75 mm craniocaudal over the region of laminectomy from T9-T12. No acute fracture. Discs/spinal canal/neural foramina: Moderate degenerative disc disease. Partially visualized artificial disc replacement at C5-6. Soft tissues: Unremarkable. IMPRESSION: No acute subluxation or fracture. Soft tissue scarring mixed with midline seroma which measures of bowel at 23 mm AP, 20 mm transverse and 75 mm craniocaudal over the region of laminectomy from T9-T12. EXAM: CT Lumbar Spine Without Intravenous Contrast CLINICAL HISTORY: Back pain after fall, recent surgery TECHNIQUE: Axial computed tomography images of the lumbar spine without intravenous contrast. CTDI is 17.9 mGy and DLP is 1167 mGy-cm. This CT exam was performed using one or more of the following dose reduction techniques: automated exposure control, adjustment of the mA and/or kV according to patient size, and/or use of iterative reconstruction technique. Coronal and sagittal reformatted images were created and reviewed. COMPARISON: No relevant prior studies available. FINDINGS: Vertebrae: Laminectomies from L4-S1. No acute fracture. Other bones/joints: Bone graft site from lateral aspect of right ilium at the level of sacroiliac joints. Discs/spinal canal/neural foramina: Posterior fusion hardware from L3- S1 caused large amount of streak artifact, which decreases sensitivity on associated images. Moderate degenerative disease.. Soft tissues: Unremarkable. Vasculature: Small amount of atherosclerotic calcifications. Gallbladder and bile ducts: Cholecystectomy clips. Kidneys and ureters: 4 cm exophytic anterior right renal cyst.
[2024-07-05] MEDS ORDERED: HYDROmorphone 1 MG/ML 1 ML SYRINGE IM STA (02:08)
[2024-07-05] MEDS: HYDROmorphone 1 MG/ML 1 ML SYRINGE IM STA (02:33)
[2024-07-05 02:43] VITALS: BP 149/97; PULSE 119; RESP 18
[2024-07-05] MEDS: ONDANSETRON 4 MG/2 ML VIAL IVP STA (02:44)
== END 2024-07-05 03:04 | disposition home or self-care (01) ==
LOC: EC 23:57
DX: M54.6 Pain in thoracic spine (principal); Z87.39 Personal history of other diseases of the musculoskeletal system and connective tissue; Z88.8 Allergy status to other drugs, medicaments and biological substances; W00.0XXA Fall on same level due to ice and snow, initial encounter
CPT/HCPCS: 72128; 72131; 99284; 96374; 96372; J1171

== ENCOUNTER 2024-07-05 15:28 | Emergency (ER) | payer OTHER ==
[2024-07-05] MEDS: HYDROmorphone 1 MG/ML 1 ML SYRINGE IM STA (17:21)
[2024-07-05] MEDS: ORPHENADRINE 30 MG/ML 2 ML VIAL IM STA (17:51)
--- NOTE | 2024-07-05 18:20 | ED ---
Back Pain HPI - General Chief Complaint: Back Pain/Injury Stated Complaint: Fall, back pain Time Seen by Provider: 07/05/24 17:00 Source: patient, RN notes reviewed Limitations: no limitations - History of Present Illness Initial Comments: 58-year-old male presenting for back pain status post fall yesterday. Patient states he slipped on ice and fell directly onto his mid back. Denies hitting his head. Patient was seen in the ER after the fall where CT thoracic/lumbar was taken and negative. Patient states he underwent emergency laminectomy 2 weeks ago and [facility]. Patient states he continues to have pain in the mid back at the incision sites since the fall. Denies bleeding or drainage from the incision site. Denies numbness, tingling, weakness of the bilateral lower extremities. Denies saddle anesthesia. Denies bowel or bladder incontinence. - Related Data Home Medications Medication Instructions Recorded Confirmed Insulin Lispro [humaLOG Kwikpen] See Protocol SQ ACHS 06/16/21 06/14/24 Insulin Glargine,Hum.rec.anlog 50 units SQ DAILY 10/20/22 06/14/24 [Lantus Solostar Pen] Gabapentin 600 mg PO TID 03/25/24 06/14/24 Insulin Lispro [humaLOG Kwikpen] 10 unit SQ TID-W/MEALS 03/25/24 06/14/24 methocarbamoL [Robaxin-750] 750 mg PO TID 03/25/24 06/14/24 oxyCODONE-APAP 5-325MG [Percocet 1 tab PO QID 04/29/24 06/14/24 5-325 mg] Isosorbide Mononitrate ER [Imdur] 60 mg PO DAILY 06/14/24 06/14/24 Nitroglycerin Sl Tabs [Nitrostat] 0.4 mg SUBLINGUAL Q5M PRN 06/14/24 06/14/24 Pantoprazole [Protonix] 40 mg PO BID 06/14/24 06/14/24 carvediloL [Coreg] 25 mg PO BID 06/14/24 06/14/24 dilTIAZem HCL 30 mg PO DAILY 06/14/24 06/14/24 Allergies Allergy/AdvReac Type Severity Reaction Status Date / Time doxycycline Allergy Swelling Verified 06/14/24 15:48 ketorolac tromethamine Allergy Rash/Hives Verified 06/14/24 15:48 [From Toradol] morphine Allergy Rash/Hives Verified 06/14/24 15:48 metoclopramide HCl AdvReac Dystonic Verified 06/14/24 15:48 [From Reglan] Reaction prochlorperazine edisylate AdvReac Dystonic Verified 06/14/24 15:48 [From Compazine] Reaction prochlorperazine maleate AdvReac Dystonic Verified 06/14/24 15:48 [From Compazine] Reaction Review of Systems ROS Statement: Those systems with pertinent positive or pertinent negative responses have been documented in the HPI. ROS Other: All systems not noted in ROS Statement are negative. Past Medical History Past Medical History: Asthma, Coronary Artery Disease (CAD), Chest Pain / Angina, Diabetes Mellitus, GERD/Reflux, GI Bleed, Hyperlipidemia, Hypertension, Myocardial Infarction ([place]), Mitral Valve Prolapse (MVP), Pulmonary Embolus (PE), Sleep Apnea/CPAP/BIPAP Additional Past Medical History / Comment(s): Asthmatic bronchitis-chronic, IDDM type II, neuropathy bilateral feet, lower and upper GI bleeds, PUD, diverticulitis, colectomy d/t benign mass/intusseption, BPH, renal cysts, nephrolithiais, UTI with sepsis, chronic back pain 2ndary to herniated lumbar discs/sciatica, JARED does not use his Cpap, MVP, murmur, chronic dysphagia Last Myocardial Infarction Date:: 2011 History of Any Multi-Drug Resistant Organisms: C-DIFF, MRSA Date of last positivie culture/infection: 2015 MDRO Source:: left axilla Past Surgical History: Appendectomy, Back Surgery, Cholecystectomy, Heart Catheterization, Hernia Repair, Orthopedic Surgery Additional Past Surgical History / Comment(s): Lumbar decompression/fusion/laminectomy, spinal stimulator, T lift procedure, L inguinal hernia repair, multiple ESWLs/stents/double J caths, colonoscopy, 02/2020 colectomy, EGDs for food obstructions and dilations, NERVE STIMULATOR Past Anesthesia/Blood Transfusion Reactions: No Reported Reaction Past Psychological History: No Psychological Hx Reported Smoking Status: Never smoker Past Alcohol Use History: None Reported Past Drug Use History: None Reported - Past Family History Father Family Medical History: Chest Pain / Angina Additional Family Medical History / Comment(s): "lung problems" Mother Family Medical History: Blood Disorder, Cancer, Chest Pain / Angina, Congestive Heart Failure (CHF), Osteoarthritis (OA), Thyroid Disorder Additional Family Medical History / Comment(s): "waxer tender cancer" blood clots General Exam Limitations: no limitations General appearance: alert, in no apparent distress Head exam: Present: atraumatic, normocephalic, normal inspection Eye exam: Present: normal appearance, PERRL, EOMI. Absent: scleral icterus, conjunctival injection, periorbital swelling GI/Abdominal exam: Present: soft, normal bowel sounds. Absent: distended, tenderness, guarding, rebound, rigid Back exam: Present: full ROM, tenderness (Diffuse tenderness along thoracic and lumbar incision sites with no erythema, hematomas, fluctuance, drainage, or dehiscence). Absent: rash noted Neurological exam: Present: alert, oriented X3 Psychiatric exam: Present: normal affect, normal mood Skin exam: Present: warm, dry, intact, normal color. Absent: rash Course Vital Signs 07/05/24 07/05/24 15:50 18:25 Temperature 97.9 F 98.2 F Pulse Rate 112 H 104 H Respiratory 20 18 Rate Blood Pressure 152/94 146/90 O2 Sat by Pulse 99 98 Oximetry Medical Decision Making - Medical Decision Making Was pt. sent in by a medical professional or institution (MAGGIE Oliveros, RESEARCH BIOLOGIST, urgent care, hospital, or senior living...) When possible be specific @ -No Did you speak to anyone other than the patient for history (EMS, parent, family, police, friend...)? What history was obtained from this source @ -No Did you review nursing and triage notes (agree or disagree)? Why? @ -I reviewed and agree with nursing and triage notes Were old charts reviewed (outside hosp., previous admission, EMS record, old EKG, old radiological studies, urgent care reports/EKG's, senior living records)? Report findings @ -Reviewed ER visit from yesterday including CT thoracic/lumbar spine which revealed no acute process Differential Diagnosis (chest pain, altered mental status, abdominal pain women, abdominal pain men, vaginal bleeding, weakness, fever, dyspnea, syncope, headache, dizziness, GI bleed, back pain, seizure, CVA, palpatations, mental health, musculoskeletal)? @ -Differential Musculoskeletal Muscular strain, contusion, ligament sprain, fracture, arthritis, septic arthritis, bursitis, cellulitis, muscle spasm, nerve compression, DVT, arterial occlusion, herpes zoster, electrolyte abnormality, tumor.... This is not meant to be in all inclusive list EKG interpreted by me (3pts min.). @ -None X-rays interpreted by me (1pt min.). @ -None done CT interpreted by me (1pt min.). @ -None done U/S interpreted by me (1pt. min.). @ -None done What testing was considered but not performed or refused? (CT, X-rays, U/S, labs)? Why? @ -Imaging deferred due to patient had CT thoracic/lumbar spine after fall yesterday which revealed no acute process What meds were considered but not given or refused? Why? @ -None Did you discuss the management of the patient with other professionals (professionals i.e. , PA, RESEARCH BIOLOGIST, lab, RT, psych nurse, manager social responsibility, bag maker, teacher, law enforcement officer, skilled nursing case manager)? Give summary @ -No Was smoking cessation discussed for >3mins.? @ -No Was critical care preformed (if so, how long)? @ -No Were there social determinants of health that impacted care today? How? (Homelessness, low income, unemployed, alcoholism, drug addiction, transpo rtation, low edu. Level, literacy, decrease access to med. care, senior care, rehab)? @ -No Was there de-escalation of care discussed even if they declined (Discuss DNR or withdrawal of care, Hospice)? DNR status @ -No What co-morbidities impacted this encounter? (DM, HTN, Smoking, COPD, CAD, Cancer, CVA, ARF, Chemo, Hep., AIDS, mental health diagnosis, sleep apnea, morbid obesity)? @ -None Was patient admitted / discharged? Hospital course, mention meds given and route, prescriptions, significant lab abnormalities, going to OR and other pertinent info. @ -Discharge. This is a 58-year-old male presenting for mid back pain status post fall yesterday. Patient was seen after the fall yesterday where CT thoracic/lumbar spine was performed and was negative for acute process. Incision sites are clean, dry, and intact with no erythema, drainage, dehiscence, or hematomas present. Patient is neurovascularly intact in the bilateral lower extremities. Provided with analgesics. Patient was offered transfer to [facility] to be seen by surgery team, however patient declines and states he would like to be discharged and follow-up with the surgeon on Monday. I believe this is reasonable as there is no sign of life- threatening condition. Case was discussed with my ED attending Dr. De Leon. Undiagnosed new problem with uncertain prognosis? @ -No Drug Therapy requiring intensive monitoring for toxicity (Heparin, Nitro, Insulin, Cardizem)? @ -No Were any procedures done? @ -No Diagnosis/symptom? @ -Thoracolumbar pain Acute, or Chronic, or Acute on Chronic? @ -Acute Uncomplicated (without systemic symptoms) or Complicated (systemic symptoms)? @ -Uncomplicated Side effects of treatment? @ -No Exacerbation, Progression, or Severe Exacerbation? @ -No Poses a threat to life or bodily function? How? (Chest pain, [place], MA, pneumonia, PE, COPD, DKA, ARF, appy, cholecystitis, CVA, Diverticulitis, Homicidal, Suicidal, threat to staff... and all critical care pts) @ -Not at this time Disposition Clinical Impression: Thoracolumbar back pain Disposition: HOME SELF-CARE Condition: Stable Instructions (If sedation given, give patient instructions): Acute Low Back Pain (ED) Additional Instructions: Follow-up with surgeon on Monday as discussed. Please return to the Emergency Department if symptoms worsen or any other concerns. Is patient prescribed a controlled substance at d/c from ED?: No Referrals: González Muñiz MD [Primary Care Provider] - 1-2 days Time of Disposition: 18:20
[2024-07-05 18:25] VITALS: RESP 18
[2024-07-05] MEDS: HYDROmorphone 0.5 MG/0.5 ML SYRINGE IVP STA (18:28)
[2024-07-05 18:48] VITALS: BP 144/86; PULSE 102; TEMP 98.1
== END 2024-07-05 18:46 | disposition home or self-care (01) ==
LOC: EC 15:28
DX: M54.50 Low back pain, unspecified (principal); M54.6 Pain in thoracic spine; Z88.8 Allergy status to other drugs, medicaments and biological substances; W00.0XXA Fall on same level due to ice and snow, initial encounter
CPT/HCPCS: 99283; 96374; 96372 ×2; J2360; J1171 ×2; 99284

== ENCOUNTER 2024-07-25 16:21 | Emergency (ER) | payer OTHER ==
[2024-07-25 16:55] VITALS: RESP 19
--- NOTE | 2024-07-25 18:00 | ED ---
Fall HPI - General Chief Complaint: Fall Stated Complaint: fall-on thinners Time Seen by Provider: 07/25/24 17:49 Source: patient Mode of arrival: ambulatory - History of Present Illness Initial Comments: 58-year-old male presenting with chief complaint of fall. Patient states that he was walking his dog when his dog pulled him and caused him to fall into a ditch. States that he hit his head neck and back. States that last month he had surgery on his thoracic spine. He admits to pain. No loss of consciousness. He is on Eliquis. No nausea vomiting or dizziness. No numbness tingling or weakness. - Related Data Home Medications Medication Instructions Recorded Confirmed Insulin Lispro [humaLOG Kwikpen] See Protocol SQ ACHS 06/16/21 06/14/24 Insulin Glargine,Hum.rec.anlog 50 units SQ DAILY 10/20/22 06/14/24 [Lantus Solostar Pen] Gabapentin 600 mg PO TID 03/25/24 06/14/24 Insulin Lispro [humaLOG Kwikpen] 10 unit SQ TID-W/MEALS 03/25/24 06/14/24 methocarbamoL [Robaxin-750] 750 mg PO TID 03/25/24 06/14/24 oxyCODONE-APAP 5-325MG [Percocet 1 tab PO QID 04/29/24 06/14/24 5-325 mg] Isosorbide Mononitrate ER [Imdur] 60 mg PO DAILY 06/14/24 06/14/24 Nitroglycerin Sl Tabs [Nitrostat] 0.4 mg SUBLINGUAL Q5M PRN 06/14/24 06/14/24 Pantoprazole [Protonix] 40 mg PO BID 06/14/24 06/14/24 carvediloL [Coreg] 25 mg PO BID 06/14/24 06/14/24 dilTIAZem HCL 30 mg PO DAILY 06/14/24 06/14/24 Allergies Allergy/AdvReac Type Severity Reaction Status Date / Time doxycycline Allergy Swelling Verified 07/25/24 16:55 ketorolac tromethamine Allergy Rash/Hives Verified 07/25/24 16:55 [From Toradol] morphine Allergy Rash/Hives Verified 07/25/24 16:55 metoclopramide HCl AdvReac Dystonic Verified 07/25/24 16:55 [From Reglan] Reaction prochlorperazine edisylate AdvReac Dystonic Verified 07/25/24 16:55 [From Compazine] Reaction prochlorperazine maleate AdvReac Dystonic Verified 07/25/24 16:55 [From Compazine] Reaction Review of Systems ROS Statement: Those systems with pertinent positive or pertinent negative responses have been documented in the HPI. ROS Other: All systems not noted in ROS Statement are negative. Past Medical History Past Medical History: Asthma, Coronary Artery Disease (CAD), Chest Pain / Angina, Diabetes Mellitus, GERD/Reflux, GI Bleed, Hyperlipidemia, Hypertension, [place]ocardial Infarction ([place]), Mitral Valve Prolapse (MVP), Pulmonary Embolus (PE), Sleep Apnea/CPAP/BIPAP Additional Past Medical History / Comment(s): Asthmatic bronchitis-chronic, IDDM type II, neuropathy bilateral feet, lower and upper GI bleeds, PUD, diverticulitis, colectomy d/t benign mass/intusseption, BPH, renal cysts, nephrolithiais, UTI with sepsis, chronic back pain 2ndary to herniated lumbar discs/sciatica, JARED does not use his Cpap, MVP, murmur, chronic dysphagia Last Myocardial Infarction Date:: 2011 History of Any Multi-Drug Resistant Organisms: C-DIFF, MRSA Date of last positivie culture/infection: 2015 MDRO Source:: left axilla Past Surgical History: Appendectomy, Back Surgery, Cholecystectomy, Heart Catheterization, Hernia Repair, Orthopedic Surgery Additional Past Surgical History / Comment(s): Lumbar decompression/fusion/laminectomy, spinal stimulator, T lift procedure, L inguinal hernia repair, multiple ESWLs/stents/double J caths, colonoscopy, 02/2020 colectomy, EGDs for food obstructions and dilations, NERVE STIMULATOR Past Anesthesia/Blood Transfusion Reactions: No Reported Reaction Past Psychological History: No Psychological Hx Reported Smoking Status: Never smoker Past Alcohol Use History: None Reported Past Drug Use History: None Reported - Past Family History Father Family Medical History: Chest Pain / Angina Additional Family Medical History / Comment(s): "lung problems" Mother Family Medical History: Blood Disorder, Cancer, Chest Pain / Angina, Congestive Heart Failure (CHF), Osteoarthritis (OA), Thyroid Disorder Additional Family Medical History / Comment(s): "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 Absent: periorbital swelling Neck exam: Present: normal inspection. Absent: meningismus Respiratory exam: Absent: respiratory distress Back exam: Present: normal inspection, tenderness Neurological exam: Present: alert, oriented X3 Expanded Patient oriented to: Present: person, place, time Speech: Present: fluid speech Eye Response: (4) open spontaneously Motor Response: (6) obeys commands Verbal Response: (5) oriented Burke Total: 15 Psychiatric exam: Present: normal affect, normal mood Skin exam: Present: warm, dry Course Vital Signs 07/25/24 07/25/24 16:51 19:57 Temperature 99.3 F 98.9 F Pulse Rate 124 H 102 H Respiratory 19 19 Rate Blood Pressure 130/92 128/91 O2 Sat by Pulse 98 98 Oximetry Medical Decision Making - Medical Decision Making Was pt. sent in by a medical professional or institution (Dr. PA, SHIFT LAB TECHNICIAN, urgent care, hospital, or retirement...) When possible be specific @ -[No] Did you speak to anyone other than the patient for history (EMS, parent, family, police, friend...)? What history was obtained from this source @ -[No] Did you review nursing and triage notes (agree or disagree)? Why? @ -[I reviewed and agree with nursing and triage notes] Were old charts reviewed (outside hosp., previous admission, EMS record, old EKG, old radiological studies, urgent care reports/EKG's, retirement records)? Report findings @ -[No old charts were reviewed] Differential Diagnosis (chest pain, altered mental status, abdominal pain women, abdominal pain men, vaginal bleeding, weakness, fever, dyspnea, syncope, headache, dizziness, GI bleed, back pain, seizure, CVA, palpatations, mental health, musculoskeletal)? @ -Differential includes uncomplicated head injury, concussion, fracture, hemorrhage, this is not an all-inclusive list EKG interpreted by me (3pts min.). @ -[As above] X-rays interpreted by me (1pt min.). @ -[None done] CT interpreted by me (1pt min.). @ -CT shows no acute intracranial process. No acute osseous abnormality of the cervical spine. No acute thoracic spine abnormality U/S interpreted by me (1pt. min.). @ -[None done] What testing was considered but not performed or refused? (CT, X-rays, U/S, labs)? Why? @ -[None] What meds were considered but not given or refused? Why? @ -[None] Did you discuss the management of the patient with other professionals (professionals i.e. , PA, SHIFT LAB TECHNICIAN, lab, RT, psych nurse, aids social worker, peritoneal dialysis registered nurse, teacher, data officer, lead case manager)? Give summary @ -[No] Was smoking cessation discussed for >3mins.? @ -[No] Was critical care preformed (if so, how long)? @ -[No] Were there social determinants of health that impacted care today? How? (Homelessness, low income, unemployed, alcoholism, drug addiction, transportation, low edu. Level, literacy, decrease access to med. care, skilled nursing, rehab)? @ -[No] Was there de-escalation of care discussed even if they declined (Discuss DNR or withdrawal of care, Hospice)? DNR status @ -[No] What co-morbidities impacted this encounter? (DM, HTN, Smoking, COPD, CAD, Cancer, CVA, ARF, Chemo, Hep., AIDS, mental health diagnosis, sleep apnea, morbid obesity)? @ -[None] Was patient admitted / discharged? Hospital course, mention meds given and route, prescriptions, significant lab abnormalities, going to OR and other pertinent info. @ -58-year-old male presenting with chief complaint of head injury. Patient was walking his dog when his dog pulled him into a ditch. He fell hitting his head neck and back. He is on Eliquis, no loss of consciousness. Code coag was called. CT is negative for acute intracranial process or acute osseous process of the cervical or thoracic spine. Patient is educated on today's findings and treated with pain medication. Follow-up with PCP. Report back to ER with any new or worsening symptoms. Discussed return parameters and answered all questions. Patient conveyed verbal understanding and agreed to the plan. I discussed this case in detail with my attending Dr. Gray Undiagnosed new problem with uncertain prognosis? @ -[No] Drug Therapy requiring intensive monitoring for toxicity (Heparin, Nitro, Insulin, Cardizem)? @ -[No] Were any procedures done? @ -[No] Diagnosis/symptom? @ -Head injury Acute, or Chronic, or Acute on Chronic? @ -Acute Uncomplicated (without systemic symptoms) or Complicated (systemic symptoms)? @ -Uncomplicated Side effects of treatment? @ -[No] Exacerbation, Progression, or Severe Exacerbation? @ -[No] Poses a threat to life or bodily function? How? (Chest pain, [place], [place], pneumonia, PE, COPD, DKA, ARF, appy, cholecystitis, CVA, Diverticulitis, Homicidal, Suicidal, threat to staff... and all critical care pts) @ -Low likelihood Disposition Clinical Impression: Fall, Head injury Disposition: HOME SELF-CARE Condition: Good Instructions (If sedation given, give patient instructions): Head Injury (ED) Additional Instructions: Follow-up with PCP. Report back to ER with any new or worsening symptoms Is patient prescribed a controlled substance at d/c from ED?: No Referrals: González Muñiz MD [Primary Care Provider] - 1-2 days Time of Disposition: 19:06
--- NOTE | 2024-07-25 18:35 | CT ---
EXAMINATION TYPE: CT brain gailine wo con DATE OF EXAM: 07/25/2024 6:26 PM COMPARISON: None. CLINICAL INDICATION: Male, 58 years old with history of fall, Fall on thinners, Neck and back pain. TECHNIQUE: CT of the brain is performed utilizing 3 mm thick sections through the posterior fossa and 3 mm thick sections through the remaining calvarium. Study is performed within 24 hours of arrival to the hospital. Contrast used: mL of , (none if empty) CT DLP: 1492.8 mGycm, Automated exposure control for dose reduction was used. FINDINGS: No abnormal hyperdensity is present to suggest an acute intracranial hemorrhage. No mass lesion is evident. No acute infarcts are evident. Ventricles and sulci are appropriate for the patient age. Paranasal sinuses and mastoid air cells within the [id number] are clear. IMPRESSIONS: 1. No acute intracranial process. Follow-up MRI can be performed as clinically indicated. CT cervical spine. COMPARISON: None TECHNIQUE: CT of the cervical spine is performed in the axial plane at 2 mm thick sections. Reconstr ucted images in the coronal, and sagittal plane are reviewed on the computer. FINDINGS: No acute fractures are evident. Spina bifida occulta of C1 is present. Vertebral body alignment is normal. Disc heights are preserved. Disc spaces are present C4-5 C5-6. Vertebral body heights are preserved. No spinal canal stenosis is evident. IMPRESSION: 1. No acute osseous abnormality cervical spine [facility], , 07/25/2024 6:32 PM
--- NOTE | 2024-07-25 18:54 | CT ---
EXAMINATION TYPE: CT thoracic spine wo con DATE OF EXAM: 07/25/2024 6:26 PM COMPARISON: None. CLINICAL INDICATION: Male, 58 years old with history of fall, Fall on thinners, Neck and back pain. TECHNIQUE: Contrast used: mL of , (none if empty) Oral contrast used: (none if empty) Axial images 3 mm thick sections. Reconstructed images in the sagittal plane. This exam is compared t o 03/25/2024 FINDINGS: Disc heights are preserved. Vertebral body heights are preserved. There is been interval laminectomy in the lower thoracic region. This appears to be T10-T11 region. No spinal canal stenosis is present. No focal disc herniation is evident. IMPRESSION: 1. NO ACUTE THORACIC SPINE ABNORMALITY [facility], , 07/25/2024 6:52 PM
[2024-07-25] MEDS: HYDROmorphone 1 MG/ML 1 ML SYRINGE IM STA (19:51)
[2024-07-25 19:59] VITALS: BP 128/91; PULSE 102; TEMP 98.9
== END 2024-07-25 20:29 | disposition home or self-care (01) ==
LOC: EC 16:21
DX: S09.90XA Unspecified injury of head, initial encounter (principal); Z88.8 Allergy status to other drugs, medicaments and biological substances; Z88.5 Allergy status to narcotic agent; W18.09XA Striking against other object with subsequent fall, initial encounter; Y93.K1 Activity, walking an animal
CPT/HCPCS: 72128; 72125; 70450; 99284; 96372; J1171

== ENCOUNTER 2024-07-26 11:55 | Emergency (ER) | payer OTHER ==
--- NOTE | 2024-07-26 14:26 | ED ---
Neck Injury/Pain HPI - General Source: patient, RN notes reviewed Mode of arrival: ambulatory Limitations: no limitations - History of Present Illness MD Complaint: neck pain <Kain Zheng - Last Filed: 07/26/24 14:24> <Luli De Leon - Last Filed: 07/26/24 23:45> - General Chief Complaint: Neck Pain/Injury Stated Complaint: Fall-Back pain Time Seen by Provider: 07/26/24 12:10 - History of Present Illness Initial Comments: Quick note: This is a 58-year-old male complaining of ongoing neck/back pain (03/19) following a fall yesterday. Patient was seen in this ER yesterday following a fall into the ditch. Received head/neck CT with no fracture, dislocation, intracranial abnormality noted at the time. Patient states pain is worsening, especially in his neck and back. States he is now having chest pain (/10) and leg pain as well. Patient currently taking blood thinners. States he needs more pain medication. (Kain Zheng) Patient is a 58-year-old gentleman with history of chronic back pain, well-known to this emergency department presenting today for back and neck pain. Patient states that he was out yesterday walking his dog when his dog pulled him and he fell into a ditch. He states he hit the back of his head and neck and low back. He states he came in today for persistent pain and because he had thoracic spine surgery done about a month ago and was concerned about this. He did not call his orthopedic spine surgeon today. He states that he takes Percocet at home and this did not improve his pain. He states this [id number] along the front of his legs bilaterally. He denies incontinence of urine, states he has some loose stools, but denies saddle anesthesia. He also states he feels tightness across on his chest, feels like this is secondary to his back pain. Patient also notes that he came in today because he needed to bring his mother in to be seen. (Luli De Leon) - Related Data Home Medications Medication Instructions Recorded Confirmed Insulin Lispro [humaLOG Kwikpen] See Protocol SQ ACHS 06/16/21 06/14/24 Insulin Glargine,Hum.rec.anlog 50 units SQ DAILY 10/20/22 06/14/24 [Lantus Solostar Pen] Gabapentin 600 mg PO TID 03/25/24 06/14/24 Insulin Lispro [humaLOG Kwikpen] 10 unit SQ TID-W/MEALS 03/25/24 06/14/24 methocarbamoL [Robaxin-750] 750 mg PO TID 03/25/24 06/14/24 oxyCODONE-APAP 5-325MG [Percocet 1 tab PO QID 04/29/24 06/14/24 5-325 mg] Isosorbide Mononitrate ER [Imdur] 60 mg PO DAILY 06/14/24 06/14/24 Nitroglycerin Sl Tabs [Nitrostat] 0.4 mg SUBLINGUAL Q5M PRN 06/14/24 06/14/24 Pantoprazole [Protonix] 40 mg PO BID 06/14/24 06/14/24 carvediloL [Coreg] 25 mg PO BID 06/14/24 06/14/24 dilTIAZem HCL 30 mg PO DAILY 06/14/24 06/14/24 Allergies Allergy/AdvReac Type Severity Reaction Status Date / Time doxycycline Allergy Swelling Verified 07/26/24 12:11 ketorolac tromethamine Allergy Rash/Hives Verified 07/26/24 12:11 [From Toradol] morphine Allergy Rash/Hives Verified 07/26/24 12:11 metoclopramide HCl AdvReac Dystonic Verified 07/26/24 12:11 [From Reglan] Reaction prochlorperazine edisylate AdvReac Dystonic Verified 07/26/24 12:11 [From Compazine] Reaction prochlorperazine maleate AdvReac Dystonic Verified 07/26/24 12:11 [From Compazine] Reaction Review of Systems ROS Other: All systems not noted in ROS Statement are negative. <Kain Zheng - Last Filed: 07/26/24 14:24> ROS Other: All systems not noted in ROS Statement are negative. <Luli De Leon - Last Filed: 07/26/24 23:45> ROS Statement: Those systems with pertinent positive or pertinent negative responses have been documented in the HPI. Past Medical History Past Medical History: Asthma, Coronary Artery Disease (CAD), Chest Pain / Angina, Diabetes Mellitus, GERD/Reflux, GI Bleed, Hyperlipidemia, Hypertension, Myocardial Infarction (DC), Mitral Valve Prolapse (MVP), Pulmonary Embolus (PE), Sleep Apnea/CPAP/BIPAP Additional Past Medical History / Comment(s): Asthmatic bronchitis-chronic, IDDM type II, neuropathy bilateral feet, lower and upper GI bleeds, PUD, diverticulitis, colectomy d/t benign mass/intusseption, BPH, renal cysts, nephrolithiais, UTI with sepsis, chronic back pain 2ndary to herniated lumbar discs/sciatica, JARED does not use his Cpap, MVP, murmur, chronic dysphagia Last Myocardial Infarction Date:: 2011 History of Any Multi-Drug Resistant Organisms: C-DIFF, MRSA Date of last positivie culture/infection: 2015 MDRO Source:: left axilla Past Surgical History: Appendectomy, Back Surgery, Cholecystectomy, Heart Catheterization, Hernia Repair, Orthopedic Surgery Additional Past Surgical History / Comment(s): Lumbar decompression/fusion/laminectomy, spinal stimulator, T lift procedure, L inguinal hernia repair, multiple ESWLs/stents/double J caths, colonoscopy, 02/2020 colectomy, EGDs for food obstructions and dilations, NERVE STIMULATOR Past Anesthesia/Blood Transfusion Reactions: No Reported Reaction Past Psychological History: No Psychological Hx Reported Smoking Status: Never smoker Past Alcohol Use History: None Reported Past Drug Use History: None Reported - Past Family History Father Family Medical History: Chest Pain / Angina Additional Family Medical History / Comment(s): "lung problems" Mother Family Medical History: Blood Disorder, Cancer, Chest Pain / Angina, Congestive Heart Failure (CHF), Osteoarthritis (OA), Thyroid Disorder Additional Family Medical History / Comment(s): "gas distribution supervisor cancer" blood clots <Kain Zheng - Last Filed: 07/26/24 14:24> General Exam Limitations: no limitations <Kain Zheng - Last Filed: 07/26/24 14:24> <Luli De Leon - Last Filed: 07/26/24 23:45> - General Exam Comments Initial Comments: Visual Physical Exam Vital signs reviewed General: Well-appearing, nontoxic, no acute distress. Head: Normocephalic, atraumatic Eyes: PERRLA, EOMI ENT: Airway patent Chest: Nonlabored breathing Skin: No visual rash, normal skin tone Neuro: Alert and oriented 3 Musculoskeletal: No gross abnormalities (Kain Zheng) PE: CONSTITUTIONAL: [no apparent distress, well appearing] SKIN: [warm, dry, no jaundice, hives or petechiae] EYES:[ pupils are equally round, extraocular movements intact without nystagmus, clear conjunctiva, non-icteric sclera] HENT: [normocephalic, atraumatic, moist mucus membranes, oropharynx clear without exudates] NECK: , [Full range of motion, normal appearance] PULMONARY: [clear to auscultation without wheezes, rhonchi, or rales, normal excursion, no accessory muscle use and no stridor] CARDIOVASCULAR:[ regular rate, rhythm, normal S1 and S2. No appreciated murmurs, rubs or gallops. Strong radial pulses with intact distal perfusion. No lower extremity edema] GASTROINTESTINAL: [soft, active bowel sounds throughout, non-tender, non- distended, no palpable masses, no rebound or guarding. No hepatosplenomegaly] GENITOURINARY: Rectal exam was performed with fondant machine operator, PCT at bedside, showed soft brown stool, pt is able to sense ROSS, rectal tone is intact MUSCULOSKELETAL: [Extremities have no gross deformity, diffuse midline and paraspinal spinal TTP, pt seems to react strongly to pain regardless of how much pressure is applied during palpation ] NEUROLOGIC: [_a/o x 3, GCS 15, normal mentation and speech. Moves all extremities x 4 without motor or sensory deficit; normal patellar, trcieps and bracioradialis reflexes, no clonus, pt endorses decreased sensation to light touch diffuse around feet, anterior and posterior distal LE, endorses intact sensation proximal anterior LUE when distracted, states decreased sensation to light touch anterior right thigh] PSYCHIATRIC:[ _normal mood and affect, thought process is clear and linear] (Luli De Leon) Course Vital Signs 07/26/24 07/26/24 12:08 16:09 Temperature 98 F 98.5 F Pulse Rate 120 H 106 H Respiratory 19 20 Rate Blood Pressure 158/94 160/99 O2 Sat by Pulse 99 95 Oximetry Medical Decision Making <Kain Zheng - Last Filed: 07/26/24 14:24> <Luli De Leon - Last Filed: 07/26/24 23:45> - Medical Decision Making I completed the quick note portion of this chart signed YANELI Stahl (Kain Zheng) Was pt. sent in by a medical professional or institution (MAGGIE Oliveros, GOLDSMITH APPRENTICE, urgent care, hospital, or [facility]...) When possible be specific @ -[No] Did you speak to anyone other than the patient for history (EMS, parent, family, police, friend...)? What history was obtained from this source @ -[No] Did you review nursing and triage notes (agree or disagree)? Why? @ -[I reviewed nursing and triage notes] Were old charts reviewed (outside hosp., previous admission, EMS record, old EKG, old radiological studies, urgent care reports/EKG's, [facility] records)? Report findings @ -[Medical records reviewed] reviewed CT's C-spine, head, thoracic spine performed yesterday, these showed no acute process fracture or dislocation Differential Diagnosis (chest pain, altered mental status, abdominal pain women, abdominal pain men, vaginal bleeding, weakness, fever, dyspnea, syncope, headache, dizziness, GI bleed, back pain, seizure, CVA, palpatations, mental health, musculoskeletal)? @Differential Back Pain: Strain, zoster, cauda equina syndrome, epidural abscess, vertebral os teomyelitis, discitis, fracture, subluxation, disc herniation, DJD, spinal stenosis, dissection, AAA, pancreatitis, peptic ulcer disease, pyelonephritis, kidney stone, this is not meant to be an all-inclusive list. EKG interpreted by me (3pts min.). @ -[As above] X-rays interpreted by me (1pt min.). @ -[None done] CT interpreted by me (1pt min.). @ -[None done] U/S interpreted by me (1pt. min.). @ -[None done] What testing was considered but not performed or refused? (CT, X-rays, U/S, labs)? Why? @ -[None] What meds were considered but not given or refused? Why? @ -[None] Did you discuss the management of the patient with other professionals (professionals i.e. MAGGIE Oliveros, GOLDSMITH APPRENTICE, lab, RT, psych nurse, health care social worker, lead rider, teacher, bomb squad officer, rn field case manager)? Give summary @ -[No] Was smoking cessation discussed for >3mins.? @ -[No] Was critical care preformed (if so, how long)? @ -[No] Were there social determinants of health that impacted care today? How? (Homelessness, low income, unemployed, alcoholism, drug addiction, transportation, low edu. Level, literacy, decrease access to med. care, nursing home, rehab)? @ -[No] Was there de-escalation of care discussed even if they declined (Discuss DNR or withdrawal of care, Hospice)? @ -[No] What co-morbidities impacted this encounter? (DM, HTN, Smoking, COPD, CAD, Cancer, CVA, ARF, Chemo, Hep., AIDS, mental health diagnosis, sleep apnea, morbid obesity)? @Chronic back pain Was patient admitted / discharged? Hospital course, mention meds given and route, prescriptions, significant lab abnormalities, going to OR and other pertinent info. @ Discharge- Patient is a 58-year-old gentleman past medical history of chronic back pain, presenting today for persistent neck and back pain after a fall into a ditch yesterday. Pt is well known to this department with multiple prior visits for back pain. On my assessment pt is laying in bed in [facility]. Complete history and physical exam performed. Pt endorsed midline spinal TTP regardless of the pressure used when palpating his spine and pain was relatively nonspecific. Of note, on initial assessment pt states his numbness and tingling in his bilateral anterior LE however, when distracted by his mother during my exam, pt states he has decreased sensation to light touch of the entirety of his feet, entirety of his distal LE and up to his anterior right thigh just above the knee and normal sensation along his left thigh. Pt has 2+ triceps, brachioradialis, patellar reflexes bilaterally, no clonus and downgoing babinski. Denies difficulty urinating, saddle anesthesia. States is here anna use he had to bring his mother in. Requests pain medications. Discussed with him reassuring workup yesterday and pt likely needs to follow up with his spine physician. Discussed giving him a dose home pain meds and obtaining EKG and cardiac labs and monitor in ED until labs result. After I told the pt that we would only be doing a dose of home percocet and flexeril he requested discharge and declined EKG and further cardiac labs, stating he thinks his heart is fine and all of his pain is related to his back. I discussed with him the importance of following up with his spine surgeon immediately after discharge. Pt verbalized understanding of this and discharged in stable condition. Undiagnosed new problem with uncertain prognosis? @ -[No] Drug Therapy requiring intensive monitoring for toxicity (Heparin, Nitro, Insulin, Cardizem)? @ -[No] Were any procedures done? @ -[No] Diagnosis/symptom? @ -[default] Acute, or Chronic, or Acute on Chronic? @ -[default] Uncomplicated (without systemic symptoms) or Complicated (systemic symptoms)? @ -[default] Side effects of treatment? @ -[No] Exacerbation, Progression, or Severe Exacerbation? @ -[No] Poses a threat to life or bodily function? How? (Chest pain, [place], DC, pneumonia, PE, COPD, DKA, ARF, appy, cholecystitis, CVA, Diverticulitis, Homicidal, Suicidal, threat to staff... and all critical care pts) @ -[No] (Luli De Leon) Disposition <Kain Zheng - Last Filed: 07/26/24 14:24> Is patient prescribed a controlled substance at d/c from ED?: No <Luli De Loen - Last Filed: 07/26/24 23:45> Clinical Impression: Acute exacerbation of chronic low back pain, Drug-seeking behavior Disposition: HOME SELF-CARE Condition: Good Instructions (If sedation given, give patient instructions): Cervical Sprain (ED) Additional Instructions: Every disease is a spectrum and a small chance still exists that a serious condition could develop, for this reason, please monitor yourself closely for new, changing or worsening symptoms, symptoms that persist beyond 72 hours, change from your usual symptoms, [fever], inability to tolerate/keep down fluids or your medications, inability to follow up with outpatient providers as instructed and should you experience these symptoms or should you have any further concerns for your wellbeing please return to the ED or call 911 immediately. Your pain can be treated with acetaminophen and home percocet. Please get plenty of rest and you may also use lidocaine patches to held with pain. You can take up to 650 mg of acetaminophen (Tylenol) every 6 hours. Be careful as this is included in some medicines like Nyquil, Norvell, Percocet, Vicodin, STANBACK, Goody's Powders, and Excedrin. If taking percocet, please take that into account with the amount of tylenol you are taking. Do not exceed 1000 mg tylenol in 1 dose or 4 doses in 24 hours. You can also use lidocaine patches for topical pain. You can purchase 4% patches over the counter at most drug stores. These can be helpful for pain from your muscles or bones. Return to the emergency department if you develop constipation, urinary retention, loss of bowel or bladder function, numbness or tingling into the rectum, groin, or develop fevers and chills Please follow-up with Dr. Paredes your spine surgeon this afternoon regarding today's visit PLEASE call your primary care physician as soon as possible to arrange / discuss plan for followup appointment. Appointment in the next 1-3 days is strongly encouraged if possible. PLEASE let us know here before you leave if there is anything further we can do to be of any assistance. Take care and feel Better! Referrals: González Muñiz MD [Primary Care Provider] - 1-2 days
--- NOTE | 2024-07-26 15:36 | XR ---
EXAMINATION TYPE: XR ribs RT w pa chest xray DATE OF EXAM: 07/26/2024 3:29 PM COMPARISON: 04/28/2024 CLINICAL INDICATION: Male, 58 years old with history of Fall yesterday, now has chest pain; PHH, pain TECHNIQUE: XR ribs RT w pa chest xray; Frontal and oblique views of the ribs with frontal chest radio graph. FINDINGS: The ribs have a normal appearance. No evidence of fracture. Overall, the lungs are clear. The cardiac silhouette is normal in size. The remaining osseous structures are intact. IMPRESSION: No acute osseous pathology. [facility], , 07/26/2024 3:34 PM
[2024-07-26] MEDS: oxyCODONE-APAP 5-325MG 1 EACH TAB PO STA (16:02)
[2024-07-26] MEDS: CYCLOBENZAPRINE 5 MG TAB PO STA (16:03)
[2024-07-26 16:10] VITALS: BP 160/99; PULSE 106; RESP 20; TEMP 98.5
== END 2024-07-26 16:10 | disposition home or self-care (01) ==
LOC: EC 11:55
DX: G89.29 Other chronic pain (principal); M54.50 Low back pain, unspecified; M54.2 Cervicalgia; Z76.5 Malingerer [conscious simulation]; Z88.1 Allergy status to other antibiotic agents; Z88.5 Allergy status to narcotic agent; Z88.8 Allergy status to other drugs, medicaments and biological substances; W18.30XA Fall on same level, unspecified, initial encounter; Y93.K1 Activity, walking an animal
CPT/HCPCS: 99284

== ENCOUNTER 2024-07-28 11:24 | Emergency (ER) | payer OTHER ==
[2024-07-28 11:28] VITALS: RESP 18
--- NOTE | 2024-07-28 11:47 | ED ---
Back Pain HPI - General Chief Complaint: Back Pain/Injury Stated Complaint: back pain Time Seen by Provider: 07/28/24 11:30 Source: patient Limitations: no limitations - History of Present Illness Initial Comments: 58-year-old male presenting with chief complaint of back pain. Patient has history of chronic back pain and is well-known to our ER. He is having pain mainly in the thoracic back and neck area. No saddle paresthesia. He is having some pins and needle sensation that goes down his bilateral thighs. No weakness. No fevers or chills. No new injury or trauma. He has been taking Percocet at home which has not changed his pain much. Currently follows with orthopedics out of [facility]. No saddle paresthesia. States that he has been having loose stools. He had a negative CT of the brain, neck, thoracic spine on the after a fall - Related Data Home Medications Medication Instructions Recorded Confirmed Insulin Lispro [humaLOG Kwikpen] See Protocol SQ ACHS 06/16/21 06/14/24 Insulin Glargine,Hum.rec.anlog 50 units SQ DAILY 10/20/22 06/14/24 [Lantus Solostar Pen] Gabapentin 600 mg PO TID 03/25/24 06/14/24 Insulin Lispro [humaLOG Kwikpen] 10 unit SQ TID-W/MEALS 03/25/24 06/14/24 methocarbamoL [Robaxin-750] 750 mg PO TID 03/25/24 06/14/24 oxyCODONE-APAP 5-325MG [Percocet 1 tab PO QID 04/29/24 06/14/24 5-325 mg] Isosorbide Mononitrate ER [Imdur] 60 mg PO DAILY 06/14/24 06/14/24 Nitroglycerin Sl Tabs [Nitrostat] 0.4 mg SUBLINGUAL Q5M PRN 06/14/24 06/14/24 Pantoprazole [Protonix] 40 mg PO BID 06/14/24 06/14/24 carvediloL [Coreg] 25 mg PO BID 06/14/24 06/14/24 dilTIAZem HCL 30 mg PO DAILY 06/14/24 06/14/24 Allergies Allergy/AdvReac Type Severity Reaction Status Date / Time doxycycline Allergy Swelling Verified 07/28/24 11:28 ketorolac tromethamine Allergy Rash/Hives Verified 07/28/24 11:28 [From Toradol] morphine Allergy Rash/Hives Verified 07/28/24 11:28 metoclopramide HCl AdvReac Dystonic Verified 07/28/24 11:28 [From Reglan] Reaction prochlorperazine edisylate AdvReac Dystonic Verified 07/28/24 11:28 [From Compazine] Reaction prochlorperazine maleate AdvReac Dystonic Verified 07/28/24 11:28 [From Compazine] Reaction Review of Systems ROS Statement: Those systems with pertinent positive or pertinent negative responses have been documented in the HPI. ROS Other: All systems not noted in ROS Statement are negative. Past Medical History Past Medical History: Asthma, Coronary Artery Disease (CAD), Chest Pain / Angina, Diabetes Mellitus, GERD/Reflux, GI Bleed, Hyperlipidemia, Hypertension, Myocardial Infarction ([place]), Mitral Valve Prolapse (MVP), Pulmonary Embolus (PE), Sleep Apnea/CPAP/BIPAP Additional Past Medical History / Comment(s): Asthmatic bronchitis-chronic, IDDM type II, neuropathy bilateral feet, lower and upper GI bleeds, PUD, diverticulitis, colectomy d/t benign mass/intusseption, BPH, renal cysts, nephrolithiais, UTI with sepsis, chronic back pain 2ndary to herniated lumbar discs/sciatica, JARED does not use his Cpap, MVP, murmur, chronic dysphagia Last Myocardial Infarction Date:: 2011 History of Any Multi-Drug Resistant Organisms: C-DIFF, MRSA Date of last positivie culture/infection: 2015 MDRO Source:: left axilla Past Surgical History: Appendectomy, Back Surgery, Cholecystectomy, Heart Catheterization, Hernia Repair, Orthopedic Surgery Additional Past Surgical History / Comment(s): Lumbar decompression/fusion/laminectomy, spinal stimulator, T lift procedure, L inguinal hernia repair, multiple ESWLs/stents/double J caths, colonoscopy, 02/2020 colectomy, EGDs for food obstructions and dilations, NERVE STIMULATOR Past Anesthesia/Blood Transfusion Reactions: No Reported Reaction Past Psychological History: No Psychological Hx Reported Smoking Status: Never smoker Past Alcohol Use History: None Reported Past Drug Use History: None Reported - Past Family History Father Family Medical History: Chest Pain / Angina Additional Family Medical History / Comment(s): "lung problems" Mother Family Medical History: Blood Disorder, Cancer, Chest Pain / Angina, Congestive Heart Failure (CHF), Osteoarthritis (OA), Thyroid Disorder Additional Family Medical History / Comment(s): "brake drum lathe operator cancer" blood clots General Exam Limitations: no limitations General appearance: alert, in no apparent distress Head exam: Present: atraumatic, normocephalic, normal inspection Eye exam: Present: normal appearance, EOMI Neck exam: Present: normal inspection. Absent: meningismus Respiratory exam: Absent: respiratory distress Back exam: Present: normal inspection, tenderness (Generalized) Neurological exam: Present: alert, oriented X3 Psychiatric exam: Present: normal affect, normal mood Skin exam: Present: warm, dry, normal color Course Vital Signs 07/28/24 07/28/24 11:26 13:29 Temperature 98.7 F 97.9 F Pulse Rate 118 H 111 H Respiratory 18 18 Rate Blood Pressure 177/89 166/89 O2 Sat by Pulse 99 99 Oximetry Medical Decision Making - Medical Decision Making Was pt. sent in by a medical professional or institution (, PA, SUPERVISOR FACEPIECE LINE, urgent care, hospital, or longterm...) When possible be specific @ -No Did you speak to anyone other than the patient for history (EMS, parent, family, police, friend...)? What history was obtained from this source @ -No Did you review nursing and triage notes (agree or disagree)? Why? @ -I reviewed and agree with nursing and triage notes Were old charts reviewed (outside hosp., previous admission, EMS record, old EKG, old radiological studies, urgent care reports/EKG's, longterm records)? Report findings @ -No old charts were reviewed Differential Diagnosis (chest pain, altered mental status, abdominal pain women, abdominal pain men, vaginal bleeding, weakness, fever, dyspnea, syncope, headache, dizziness, GI bleed, back pain, seizure, CVA, palpatations, mental health, musculoskeletal)? @ - MDM Differential Back Pain: Strain, zoster, cauda equina syndrome, epidural abscess, vertebral osteomyelitis, discitis, fracture, subluxation, disc herniation, DJD, spinal stenosis, dissection, AAA, pancreatitis, peptic ulcer disease, pyelonephritis, kidney stone this is not meant to be an all-inclusive list. EKG interpreted by me (3pts min.). @ -As above X-rays interpreted by me (1pt min.). @ -None done CT interpreted by me (1pt min.). @ -None done U/S interpreted by me (1pt. min.). @ -None done What testing was considered but not performed or refused? (CT, X-rays, U/S, labs)? Why? @ -None What meds were considered but not given or refused? Why? @ -None Did you discuss the management of the patient with other professionals (professionals i.e. DrSilvestre, PA, SUPERVISOR FACEPIECE LINE, lab, RT, psych nurse, social work therapist, vice president pharmacy, teacher, national insurance officer, family preservation caseworker)? Give summary @ -No Was smoking cessation discussed for >3mins.? @ -No Was critical care preformed (if so, how long)? @ -No Were there social determinants of health that impacted care today? How? (Homelessness, low income, unemployed, alcoholism, drug addiction, transportation, low edu. Level, literacy, decrease access to med. care, detention, rehab)? @ -No Was there de-escalation of care discussed even if they declined (Discuss DNR or withdrawal of care, Hospice)? DNR status @ -No What co-morbidities impacted this encounter? (DM, HTN, Smoking, COPD, CAD, Cancer, CVA, ARF, Chemo, Hep., AIDS, mental health diagnosis, sleep apnea, morbid obesity)? @ -None Was patient admitted / discharged? Hospital course, mention meds given and route, prescriptions, significant lab abnormalities, going to OR and other pertinent info. @ -58-year-old male presenting with chief complaint of back pain. Patient has history of chronic back pain, this feels consistent with his previous flareups of chronic pain. No red flag symptoms. No new injury or trauma. He had a negative CT of the brain neck and thoracic spine on the . History and physical examination are conducted. Patient is treated with pain medication and reports improvement in his symptoms. Patient would like to be discharged home and follow-up with his surgeon outpatient, I believe this is reasonable. Follow-up with PCP. Report back to ER with any new or worsening symptoms. Discussed return parameters and answered all questions. Patient conveyed verbal understanding and agreed to the plan. I discussed this case in detail with my attending Dr. Gusman Undiagnosed new problem with uncertain prognosis? @ -No Drug Therapy requiring intensive monitoring for toxicity (Heparin, Nitro, Insulin, Cardizem)? @ -No Were any procedures done? @ -No Diagnosis/symptom? @ -Back pain Acute, or Chronic, or Acute on Chronic? @ -Acute on chronic Uncomplicated (without systemic symptoms) or Complicated (systemic symptoms)? @ -Uncomplicated Side effects of treatment? @ -No Exacerbation, Progression, or Severe Exacerbation? @ -No Poses a threat to life or bodily function? How? (Chest pain, [place], [place], pneumonia, PE, COPD, DKA, ARF, appy, cholecystitis, CVA, Diverticulitis, Homicidal, Suicidal, threat to staff... and all critical care pts) @ -Unlikely Disposition Clinical Impression: Chronic back pain Disposition: HOME SELF-CARE Condition: Good Instructions (If sedation given, give patient instructions): Chronic Back Pain (DC) Additional Instructions: Follow-up with your PCP and surgeon. Report back to ER with any new or worsening symptoms. Is patient prescribed a controlled substance at d/c from ED?: No Referrals: González Muñiz MD [Primary Care Provider] - 1-2 days Time of Disposition: 12:45
[2024-07-28] MEDS: HYDROmorphone 1 MG/ML 1 ML SYRINGE IM STA ×2 (11:49→12:55)
[2024-07-28 13:31] VITALS: BP 166/89; PULSE 111; TEMP 97.9
== END 2024-07-28 13:31 | disposition home or self-care (01) ==
LOC: EC 11:24
DX: G89.29 Other chronic pain (principal); M54.9 Dorsalgia, unspecified; Z88.8 Allergy status to other drugs, medicaments and biological substances
CPT/HCPCS: 99283; 96372 ×2; J1171

== ENCOUNTER 2024-07-30 16:34 | Emergency (ER) | payer OTHER ==
[2024-07-30 16:59] VITALS: TEMP 97.6
--- NOTE | 2024-07-30 18:40 | ED ---
Recheck HPI - General Chief Complaint: Chest Pain Stated Complaint: Chest pain,vomiting Time Seen by Provider: 07/30/24 16:51 Source: patient, RN notes reviewed, old records reviewed Mode of arrival: ambulatory Limitations: no limitations - History of Present Illness Initial Comments: This is a 58-year-old male to the ER for evaluation patient is well-known to this emergency department for chronic medical issues including back pain chest pain falls recent and recurrent falls. Patient states he also had a recent fall he landed on his back complaining of back and chest pain but he states there is not cardiac and is not worried about his heart MD Complaint: medication refill request (States his pain is out of control with nausea vomiting and unable to control his bowels but he states his inability to control his bowels is related to his prior surgeries) -: days(s) Returns Today for: persistent/worsening pain related to initial visit Symptoms Since Prior Visit: worsening pain Context: called for abnormal lab result Associated Symptoms: none Treatments Prior to Arrival: Given Pain Meds on - Related Data Home Medications Medication Instructions Recorded Confirmed Insulin Lispro [humaLOG Kwikpen] See Protocol SQ ACHS 06/16/21 06/14/24 Insulin Glargine,Hum.rec.anlog 50 units SQ DAILY 10/20/22 06/14/24 [Lantus Solostar Pen] Gabapentin 600 mg PO TID 03/25/24 06/14/24 Insulin Lispro [humaLOG Kwikpen] 10 unit SQ TID-W/MEALS 03/25/24 06/14/24 methocarbamoL [Robaxin-750] 750 mg PO TID 03/25/24 06/14/24 oxyCODONE-APAP 5-325MG [Percocet 1 tab PO QID 04/29/24 06/14/24 5-325 mg] Isosorbide Mononitrate ER [Imdur] 60 mg PO DAILY 06/14/24 06/14/24 Nitroglycerin Sl Tabs [Nitrostat] 0.4 mg SUBLINGUAL Q5M PRN 06/14/24 06/14/24 Pantoprazole [Protonix] 40 mg PO BID 06/14/24 06/14/24 carvediloL [Coreg] 25 mg PO BID 06/14/24 06/14/24 dilTIAZem HCL 30 mg PO DAILY 06/14/24 06/14/24 Allergies Allergy/AdvReac Type Severity Reaction Status Date / Time doxycycline Allergy Swelling Verified 07/30/24 16:59 ketorolac tromethamine Allergy Rash/Hives Verified 07/30/24 16:59 [From Toradol] morphine Allergy Rash/Hives Verified 07/30/24 16:59 metoclopramide HCl AdvReac Dystonic Verified 07/30/24 16:59 [From Reglan] Reaction prochlorperazine edisylate AdvReac Dystonic Verified 07/30/24 16:59 [From Compazine] Reaction prochlorperazine maleate AdvReac Dystonic Verified 07/30/24 16:59 [From Compazine] Reaction Review of Systems ROS Statement: Those systems with pertinent positive or pertinent negative responses have been documented in the HPI. ROS Other: All systems not noted in ROS Statement are negative. 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, JARED does not use his Cpap, MVP, murmur, chronic dysphagia Last Myocardial Infarction Date:: 2011 History of Any Multi-Drug Resistant Organisms: C-DIFF, MRSA Date of last positivie culture/infection: 2015 MDRO Source:: left axilla Past Surgical History: Appendectomy, Back Surgery, Cholecystectomy, Heart Catheterization, Hernia Repair, Orthopedic Surgery Additional Past Surgical History / Comment(s): Lumbar decompression/fusion/laminectomy, spinal stimulator, T lift procedure, L inguinal hernia repair, multiple ESWLs/stents/double J caths, colonoscopy, 02/2020 colectomy, EGDs for food obstructions and dilations, NERVE STIMULATOR Past Anesthesia/Blood Transfusion Reactions: No Reported Reaction Past Psychological History: No Psychological Hx Reported Smoking Status: Never smoker Past Alcohol Use History: None Reported Past Drug Use History: None Reported - Past Family History Father Family Medical History: Chest Pain / Angina Additional Family Medical History / Comment(s): "lung problems" Mother Family Medical History: Blood Disorder, Cancer, Chest Pain / Angina, Congestive Heart Failure (CHF), Osteoarthritis (OA), Thyroid Disorder Additional Family Medical History / Comment(s): "engineering specialist technician cancer" blood clots General Exam Limitations: no limitations General appearance: alert, in no apparent distress Head exam: Present: atraumatic, normocephalic, normal inspection Eye exam: Present: normal appearance, PERRL, EOMI. Absent: scleral icterus, conjunctival injection, periorbital swelling ENT exam: Present: normal exam, mucous membranes moist Neck exam: Present: normal inspection. Absent: tenderness, meningismus, lymphadenopathy Respiratory exam: Present: normal lung sounds bilaterally. Absent: respiratory distress, wheezes, rales, rhonchi, stridor Cardiovascular Exam: Present: regular rate, normal rhythm, normal heart sounds. Absent: systolic murmur, diastolic murmur, rubs, gallop, clicks GI/Abdominal exam: Present: soft, normal bowel sounds. Absent: distended, tenderness, guarding, rebound, rigid Extremities exam: Present: normal inspection, full ROM, normal capillary refill. Absent: tenderness, pedal edema, joint swelling, calf tenderness Back exam: Present: normal inspection Neurological exam: Present: alert, oriented X3, CN II-XII intact Psychiatric exam: Present: normal affect, normal mood Skin exam: Present: warm, dry, intact, normal color. Absent: rash Course Vital Signs 07/30/24 07/30/24 16:56 19:27 Temperature 97.6 F Pulse Rate 107 H 111 H Respiratory 22 20 Rate Blood Pressure 155/90 173/117 O2 Sat by Pulse 100 99 Oximetry - Reevaluation(s) Reevaluation #1: 07/30/24 19:40 Record is reviewed Reevaluation #2: 07/30/24 19:41 Patient symptoms are improved here in the ER Reevaluation #3: 07/30/24 19:41 Informed of results and questions answered Reevaluation #4: 07/30/24 19:41 Was pt. sent in by a medical professional or institution (, PA, PRINTING WORKER SUPERVISOR, urgent care, hospital, or longterm...) When possible be specific @ -no Did you speak to anyone other than the patient for history (EMS, parent, family, police, friend...)? What history was obtained from this source @ -no Did you review nursing and triage notes (agree or disagree)? Why? @ -agree Are old charts reviewed (outside hosp., previous admission, EMS record, old EKG, old radiological studies, urgent care reports/EKG's, longterm records)? Report findings @ -yes Differential Diagnosis (chest pain, altered mental status, abdominal pain women, abdominal pain men, vaginal bleeding, weakness, fever, dyspnea, syncope, he adache, dizziness, GI bleed, back pain, seizure, CVA, palpatations, mental health, musculoskeletal)? @ -prior EKG interpreted by me (3pts min.). @ -yes X-rays interpreted by me (1pt min.). @ -yes negative for acute disease CT interpreted by me (1pt min.). @ -no U/S interpreted by me (1pt. min.). @ -no What testing was considered but not performed or refused? (CT, X-rays, U/S, labs)? Why? @ -none What meds were considered but not given or refused? Why? @ -none Did you discuss the management of the patient with other professionals (professionals i.e. , PA, PRINTING WORKER SUPERVISOR, lab, RT, psych nurse, director social, paying teller, teacher, customs officer, caser up)? Give summary @ -no Was smoking cessation discussed for >3mins.? @ -no Was critical care preformed (if so, how long)? @ -no Were there social determinants of health that impacted care today? How? (Homelessness, low income, unemployed, alcoholism, drug addiction, transportation, low edu. Level, literacy, decrease access to med. care, nursing home, rehab)? @ -none Was there de-escalation of care discussed even if they declined (Discuss DNR or withdrawal of care, Hospice)? DNR status @ -no What co-morbidities impacted this encounter? (DM, HTN, Smoking, COPD, CAD, Cancer, CVA, ARF, Chemo, Hep., AIDS, mental health diagnosis, sleep apnea, morbid obesity)? @ -none Was patient admitted / discharged? Hospital course, mention meds given and route, prescriptions, significant lab abnormalities, going to OR and other pertinent info. @ - Undiagnosed new problem with uncertain prognosis? @ -no Drug Therapy requiring intensive monitoring for toxicity (Heparin, Nitro, Insulin, Cardizem)? @ -no Were any procedures done? @ -no Diagnosis/symptom? @ - Acute, or Chronic, or Acute on Chronic? @ -Acute Uncomplicated (without systemic symptoms) or Complicated (systemic symptoms)? @ -Complicated Side effects of treatment? @ -no Exacerbation, Progression, or Severe Exacerbation? @ -exacerbation Poses a threat to life or bodily function? How? (Chest pain, [place], [place], pneumonia, PE, COPD, DKA, ARF, appy, cholecystitis, CVA, Diverticulitis, Homicidal, Suicidal, threat to staff... and all critical care pts) @ -yes Reevaluation #5: Differential Chest Pain: Stable Angina, Unstable Angina, STEMI, NSTEMI Aortic Dissection, Pneumothorax, Musculoskeletal, Esophageal Spasm GERD, Cholecystitis, Pancreatitis, Zoster, this is not meant to be an all-inclusive list. Differential Back Pain: Strain, zoster, cauda equina syndrome, epidural abscess, vertebral osteomyelitis, discitis, fracture, subluxation, disc herniation, DJD, spinal stenosis, dissection, AAA, pancreatitis, peptic ulcer disease, pyelonephritis, kidney stone, this is not meant to be an all-inclusive list. Medical Decision Making - Medical Decision Making 58 male with chronic back pain chest pain due to recent fall. Patient has pain control can be discharged home - EKG Data -: EKG Interpreted by [facility] - Radiology Data Radiology results: report reviewed (X-rays negative for acute disease), image reviewed Disposition Clinical Impression: Back pain, Chest pain Disposition: HOME SELF-CARE Condition: Fair Instructions (If sedation given, give patient instructions): Chest Pain (ED) Is patient prescribed a controlled substance at d/c from ED?: No Referrals: González Muñiz MD [Primary Care Provider] - 1-2 days Time of Disposition: 18:35
--- NOTE | 2024-07-30 18:57 | XR ---
EXAMINATION TYPE: XR chest 2V DATE OF EXAM: 07/30/2024 6:48 PM COMPARISON: Chest radiographs from 07/26/2024 CLINICAL INDICATION: Male, 58 years old with history of cp; TECHNIQUE: XR chest 2V Frontal and lateral views of the chest. FINDINGS: Lungs/Pleura: There is no evidence of pleural effusion, focal consolidation, or pneumothorax. Pulmonary vascularity: Unremarkable. Heart/mediastinum: Cardiomediastinal silhouette is unremarkable. Musculoskeletal: No acute osseous pathology. IMPRESSION: No acute cardiopulmonary disease/process. [facility], , 07/30/2024 6:54 PM
[2024-07-30] MEDS: HYDROmorphone 1 MG/ML 1 ML SYRINGE IM STA (19:22)
[2024-07-30] MEDS: droPERidol 2.5 MG/ML VIAL IM ONE (19:22)
[2024-07-30 19:30] VITALS: BP 173/117; PULSE 111; RESP 20
== END 2024-07-30 19:52 | disposition home or self-care (01) ==
LOC: EC 16:34
DX: R07.9 Chest pain, unspecified (principal); M54.9 Dorsalgia, unspecified; Z88.6 Allergy status to analgesic agent; Z88.5 Allergy status to narcotic agent; Z88.8 Allergy status to other drugs, medicaments and biological substances
CPT/HCPCS: 71046; 99285; 96372; J1171

== ENCOUNTER 2024-08-02 22:18 | Emergency (ER) | payer OTHER ==
[2024-08-02 22:27] VITALS: RESP 18
--- NOTE | 2024-08-02 22:49 | ED ---
General Adult HPI - General Chief complaint: Chest Pain Stated complaint: Chest pain Time Seen by Provider: 08/02/24 22:31 Source: patient, EMS, RN notes reviewed Mode of arrival: EMS Limitations: no limitations - History of Present Illness Initial comments: 58-year-old male presents to the emergency department for evaluation of chest and back pain. Patient reports a history of chronic back pain. He reports stabbing pain in his back. He reports a history of similar pain. He states he has Percocet at home without relief. He denies any shortness of breath, fever, chills, cough, congestion. - Related Data Home Medications Medication Instructions Recorded Confirmed Insulin Lispro [humaLOG Kwikpen] See Protocol SQ ACHS 06/16/21 06/14/24 Insulin Glargine,Hum.rec.anlog 50 units SQ DAILY 10/20/22 06/14/24 [Lantus Solostar Pen] Gabapentin 600 mg PO TID 03/25/24 06/14/24 Insulin Lispro [humaLOG Kwikpen] 10 unit SQ TID-W/MEALS 03/25/24 06/14/24 methocarbamoL [Robaxin-750] 750 mg PO TID 03/25/24 06/14/24 oxyCODONE-APAP 5-325MG [Percocet 1 tab PO QID 04/29/24 06/14/24 5-325 mg] Isosorbide Mononitrate ER [Imdur] 60 mg PO DAILY 06/14/24 06/14/24 Nitroglycerin Sl Tabs [Nitrostat] 0.4 mg SUBLINGUAL Q5M PRN 06/14/24 06/14/24 Pantoprazole [Protonix] 40 mg PO BID 06/14/24 06/14/24 carvediloL [Coreg] 25 mg PO BID 06/14/24 06/14/24 dilTIAZem HCL 30 mg PO DAILY 06/14/24 06/14/24 Allergies Allergy/AdvReac Type Severity Reaction Status Date / Time doxycycline Allergy Swelling Verified 07/30/24 16:59 ketorolac tromethamine Allergy Rash/Hives Verified 07/30/24 16:59 [From Toradol] morphine Allergy Rash/Hives Verified 07/30/24 16:59 metoclopramide HCl AdvReac Dystonic Verified 07/30/24 16:59 [From Reglan] Reaction prochlorperazine edisylate AdvReac Dystonic Verified 07/30/24 16:59 [From Compazine] Reaction prochlorperazine maleate AdvReac Dystonic Verified 07/30/24 16:59 [From Compazine] Reaction Review of Systems ROS Statement: Those systems with pertinent positive or pertinent negative responses have been documented in the HPI. ROS Other: All systems not noted in ROS Statement are negative. Past Medical History Past Medical History: Asthma, Coronary Artery Disease (CAD), Cancer, Chest Pain / Angina, Diabetes Mellitus, GERD/Reflux, GI Bleed, Hyperlipidemia, Hypertension, Myocardial Infarction (IN), Mitral Valve Prolapse (MVP), Pulmonary Embolus (PE), Sleep Apnea/CPAP/BIPAP Additional Past Medical History / Comment(s): Asthmatic bronchitis-chronic, IDDM type II, neuropathy bilateral feet, lower and upper GI bleeds, PUD, diverticulitis, colectomy d/t benign mass/intusseption, BPH, renal cysts, nephrolithiais, UTI with sepsis, chronic back pain 2ndary to herniated lumbar discs/sciatica, JARED does not use his Cpap, MVP, murmur, chronic dysphagia, colon cancer Last Myocardial Infarction Date:: 2011 History of Any Multi-Drug Resistant Organisms: C-DIFF, MRSA Date of last positivie culture/infection: 2015 MDRO Source:: left axilla Past Surgical History: Appendectomy, Back Surgery, Cholecystectomy, Heart Catheterization, Hernia Repair, Orthopedic Surgery Additional Past Surgical History / Comment(s): Lumbar d ecompression/fusion/laminectomy, spinal stimulator, T lift procedure, L inguinal hernia repair, multiple ESWLs/stents/double J caths, colonoscopy, 02/2020 colectomy, EGDs for food obstructions and dilations, NERVE STIMULATOR Past Anesthesia/Blood Transfusion Reactions: No Reported Reaction Past Psychological History: No Psychological Hx Reported Smoking Status: Never smoker Past Alcohol Use History: None Reported Past Drug Use History: None Reported - Past Family History Father Family Medical History: Chest Pain / Angina Additional Family Medical History / Comment(s): "lung problems" Mother Family Medical History: Blood Disorder, Cancer, Chest Pain / Angina, Congestive Heart Failure (CHF), Osteoarthritis (OA), Thyroid Disorder Additional Family Medical History / Comment(s): "student support services director cancer" blood clots General Exam Limitations: no limitations General appearance: alert, in no apparent distress Head exam: Present: atraumatic, normocephalic, normal inspection Eye exam: Present: normal appearance, PERRL, EOMI. Absent: scleral icterus, conjunctival injection, periorbital swelling ENT exam: Present: normal exam, mucous membranes moist Neck exam: Present: normal inspection. Absent: tenderness, meningismus, lymphadenopathy Respiratory exam: Present: normal lung sounds bilaterally. Absent: respiratory distress, wheezes, rales, rhonchi, stridor Cardiovascular Exam: Present: regular rate, normal rhythm, normal heart sounds. Absent: systolic murmur, diastolic murmur, rubs, gallop, clicks Extremities exam: Present: normal inspection, full ROM, normal capillary refill. Absent: tenderness, pedal edema, joint swelling, calf tenderness Neurological exam: Present: alert, oriented X3 Psychiatric exam: Present: normal affect, normal mood Skin exam: Present: warm, dry, intact, normal color. Absent: rash Course Vital Signs 08/02/24 08/03/24 22:22 00:30 Temperature 99.0 F 98.9 F Pulse Rate 125 H 75 Respiratory 18 18 Rate Blood Pressure 141/101 173/99 O2 Sat by Pulse 98 99 Oximetry Medical Decision Making - Medical Decision Making Was pt. sent in by a medical professional or institution (MAGGIE Oliveros, LEACHER, urgent care, hospital, or jail...) When possible be specific @ -No Did you speak to anyone other than the patient for history (EMS, parent, family, police, friend...)? What history was obtained from this source @ -No Did you review nursing and triage notes (agree or disagree)? Why? @ -I reviewed and agree with nursing and triage notes Were old charts reviewed (outside hosp., previous admission, EMS record, old EKG, old radiological studies, urgent care reports/EKG's, jail records)? Report findings @ -No old charts were reviewed Differential Diagnosis (chest pain, altered mental status, abdominal pain women, abdominal pain men, vaginal bleeding, weakness, fever, dyspnea, syncope, headache, dizziness, GI bleed, back pain, seizure, CVA, palpatations, mental health, musculoskeletal)? @ -Differential Back Pain: Strain, zoster, cauda equina syndrome, epidural abscess, vertebral osteomyelitis, discitis, fracture, subluxation, disc herniation, DJD, spinal stenosis, dissection, AAA, pancreatitis, peptic ulcer disease, pyelonephritis, kidney stone, this is not meant to be an all-inclusive list. EKG interpreted by me (3pts min.). @ -As above X-rays interpreted by me (1pt min.). @ -Chest x-ray shows no acute process CT interpreted by me (1pt min.). @ -None done U/S interpreted by me (1pt. min.). @ -None done What testing was considered but not performed or refused? (CT, X-rays, U/S, labs)? Why? @ -None What meds were considered but not given or refused? Why? @ -None Did you discuss the management of the patient with other professionals (pro fessionals i.e. , PA, LEACHER, lab, RT, psych nurse, manager social media, projection technician, teacher, regulatory compliance officer, human services case manager)? Give summary @ -No Was smoking cessation discussed for >3mins.? @ -No Was critical care preformed (if so, how long)? @ -No Were there social determinants of health that impacted care today? How? (Homelessness, low income, unemployed, alcoholism, drug addiction, transportation, low edu. Level, literacy, decrease access to med. care, usp, rehab)? @ -No Was there de-escalation of care discussed even if they declined (Discuss DNR or withdrawal of care, Hospice)? DNR status @ -No What co-morbidities impacted this encounter? (DM, HTN, Smoking, COPD, CAD, Cancer, CVA, ARF, Chemo, Hep., AIDS, mental health diagnosis, sleep apnea, morbid obesity)? @ -None Was patient admitted / discharged? Hospital course, mention meds given and route, prescriptions, significant lab abnormalities, going to OR and other pertinent info. @ -Discharged. Patient presented to the emergency department for chest pain and back pain. Laboratory studies obtained. CBC unremarkable, Normal coagulation studies; negative troponin. Chest x-ray shows no acute process. Patient was provided his home dose of Percocet. He was given medication for nausea. Patient was advised on findings and will be discharged home. Patient stable at time of discharge. Case discussed with Dr. Gusman Undiagnosed new problem with uncertain prognosis? @ -No Drug Therapy requiring intensive monitoring for toxicity (Heparin, Nitro, Insulin, Cardizem)? @ -No Were any procedures done? @ -No Diagnosis/symptom? @ -Back pain Acute, or Chronic, or Acute on Chronic? @ -chronic Uncomplicated (without systemic symptoms) or Complicated (systemic symptoms)? @ -uncomplicated Side effects of treatment? @ -No Exacerbation, Progression, or Severe Exacerbation? @ -No Poses a threat to life or bodily function? How? (Chest pain, USA, IN, pneumonia, PE, COPD, DKA, ARF, appy, cholecystitis, CVA, Diverticulitis, Homicidal, Suicidal, threat to staff... and all critical care pts) @ -No - Lab Data Result diagrams: 08/02/24 23:04 08/02/24 23:04 Lab Results 08/02/24 08/02/24 08/02/24 Range/Units 23:04 23:04 23:04 WBC 5.5 (3.8-10.6) k/uL RBC 4.58 (4.30-5.90) m/uL Hgb 13.3 (13.0-17.5) gm/dL Hct 39.4 (39.0-53.0) % MCV 85.9 (80.0-100.0) fL MCH 29.0 (25.0-35.0) pg MCHC 33.8 (31.0-37.0) g/dL RDW 14.1 (11.5-15.5) % Plt Count 263 (150-450) k/uL MPV 6.7 Neutrophils % 55 % Lymphocytes % 29 % Monocytes % 7 % Eosinophils % 5 % Basophils % 1 % Neutrophils # 3.0 (1.3-7.7) k/uL Lymphocytes # 1.6 (1.0-4.8) k/uL Monocytes # 0.4 (0-1.0) k/uL Eosinophils # 0.3 (0-0.7) k/uL Basophils # 0.0 (0-0.2) k/uL PT 10.1 (10.0-12.5) sec INR 0.9 (<1.2) APTT 20.2 L (22.0-30.0) sec Sodium 135 L (137-145) mmol/L Potassium 3.7 (3.5-5.1) mmol/L Chloride 104 (98-107) mmol/L Carbon Dioxide 19 L (22-30) mmol/L Anion Gap 12 mmol/L BUN 11 (9-20) mg/dL Creatinine 0.49 L (0.66-1.25) mg/dL Est GFR (CKD-EPI)AfAm >90 (>60 ml/min/1.73 sqM) Est GFR (CKD-EPI)NonAf >90 (>60 ml/min/1.73 sqM) Glucose 225 H (74-99) mg/dL Calcium 9.2 (8.4-10.2) mg/dL Magnesium 1.7 (1.6-2.3) mg/dL Total Bilirubin 0.5 (0.2-1.3) mg/dL AST 20 (17-59) U/L ALT 26 (4-49) U/L Alkaline Phosphatase 138 H (38-126) U/L Troponin I (0.000-0.034) ng/mL Total Protein 6.2 L (6.3-8.2) g/dL Albumin 3.6 (3.5-5.0) g/dL 08/02/24 Range/Units 23:04 WBC (3.8-10.6) k/uL RBC (4.30-5.90) m/uL Hgb (13.0-17.5) gm/dL Hct (39.0-53.0) % MCV (80.0-100.0) fL MCH (25.0-35.0) pg MCHC (31.0-37.0) g/dL RDW (11.5-15.5) % Plt Count (150-450) k/uL MPV Neutrophils % % Lymphocytes % % Monocytes % % Eosinophils % % Basophils % % Neutrophils # (1.3-7.7) k/uL Lymphocytes # (1.0-4.8) k/uL Monocytes # (0-1.0) k/uL Eosinophils # (0-0.7) k/uL Basophils # (0-0.2) k/uL PT (10.0-12.5) sec INR (<1.2) APTT (22.0-30.0) sec Sodium (137-145) mmol/L Potassium (3.5-5.1) mmol/L Chloride (98-107) mmol/L Carbon Dioxide (22-30) mmol/L Anion Gap mmol/L BUN (9-20) mg/dL Creatinine (0.66-1.25) mg/dL Est GFR (CKD-EPI)AfAm (>60 ml/min/1.73 sqM) Est GFR (CKD-EPI)NonAf (>60 ml/min/1.73 sqM) Glucose (74-99) mg/dL Calcium (8.4-10.2) mg/dL Magnesium (1.6-2.3) mg/dL Total Bilirubin (0.2-1.3) mg/dL AST (17-59) U/L ALT (4-49) U/L Alkaline Phosphatase (38-126) U/L Troponin I <0.012 (0.000-0.034) ng/mL Total Protein (6.3-8.2) g/dL Albumin (3.5-5.0) g/dL Disposition Clinical Impression: Atypical chest pain Disposition: HOME SELF-CARE Condition: Stable Instructions (If sedation given, give patient instructions): Chest Pain (ED) Additional Instructions: Please follow up with your primary care provider. Return to the emergency department for new or worsening symptoms. Is patient prescribed a controlled substance at d/c from ED?: No Referrals: González Muñiz MD [Primary Care Provider] - 1-2 days
[2024-08-02] MEDS: ONDANSETRON 4 MG/2 ML VIAL IVP STA (23:11)
[2024-08-02] MEDS: ORPHENADRINE 30 MG/ML 2 ML VIAL IVP STA (23:12)
[2024-08-02 23:44] LABS: Basophils % (A) 1 %; Eosinophils # (A) 0.3 k/uL (0-0.7); Eosinophils % (A) 5 %; HCT 39.4 % (39.0-53.0); HGB 13.3 gm/dL (13.0-17.5); Lymphocytes # (A) 1.6 k/uL (1.0-4.8); Lymphocytes % (A) 29 %; MCHC 33.8 g/dL (31.0-37.0); MCV 85.9 fL (80.0-100.0); Mean Platelet Volume 6.7; Monocytes # (A) 0.4 k/uL (0-1.0); Monocytes % (A) 7 %; Neutrophils % (A) 55 %; Platelet Count 263 k/uL (150-450); RBC 4.58 m/uL (4.30-5.90); RDW 14.1 % (11.5-15.5); WBC 5.5 k/uL (3.8-10.6)
[2024-08-02] MEDS: oxyCODONE-APAP 5-325MG 1 EACH TAB PO STA (23:54)
[2024-08-02 23:55] LABS: ALT 26 U/L (4-49); AST 20 U/L (17-59); African American GFR (CKD) >90 (>60 ml/min/1.73 sqM); Albumin 3.6 g/dL (3.5-5.0); Alkaline Phosphatase 138 U/L (38-126); Anion Gap 12 mmol/L; Blood Urea Nitrogen 11 mg/dL (9-20); Calcium 9.2 mg/dL (8.4-10.2); Carbon Dioxide 19 mmol/L (22-30); Chloride 104 mmol/L (98-107); Glucose 225 mg/dL (74-99); INR 0.9 (<1.2); Magnesium 1.7 mg/dL (1.6-2.3); Non-African American GFR(CKD) >90 (>60 ml/min/1.73 sqM); Potassium 3.7 mmol/L (3.5-5.1); Prothrombin Time 10.1 sec (10.0-12.5); Sodium 135 mmol/L (137-145); Total Bilirubin 0.5 mg/dL (0.2-1.3); Total Protein 6.2 g/dL (6.3-8.2)
[2024-08-02 23:58] LABS: Partial Thromboplastin Time 20.2 sec (22.0-30.0)
[2024-08-03 00:31] VITALS: BP 173/99; PULSE 75; TEMP 98.9
--- NOTE | 2024-08-03 00:53 | XR ---
EXAM: XR Chest, 2 Views CLINICAL HISTORY: ITS.REASON XR Reason: Chest Pain TECHNIQUE: Frontal and lateral views of the chest. COMPARISON: Chest radiograph on 11/13/2022 FINDINGS: Hardware: None. Lungs/pleura: Normal. No focal consolidation. No pleural effusion or pneumothorax. Heart/mediastinum: Normal. No cardiomegaly. Soft tissues: Unremarkable. Bones: No acute fracture. Degenerative changes of the spine. Upper abdomen: Normal. IMPRESSION: No acute disease identified.
== END 2024-08-03 00:31 | disposition home or self-care (01) ==
LOC: EC 22:18
DX: R07.89 Other chest pain (principal); Z88.1 Allergy status to other antibiotic agents; Z88.8 Allergy status to other drugs, medicaments and biological substances
CPT/HCPCS: 36415; 93005; 80053; 83735; 84484; 85025; 85610; 85730; 71046; 99285; 96374; 96375; J2360; J2405

== ENCOUNTER 2024-09-09 19:22 | Emergency (ER) | payer OTHER ==
[2024-09-09 19:31] VITALS: BP 165/96; PULSE 98; RESP 18; TEMP 98.2
--- NOTE | 2024-09-09 19:35 | ED ---
Chest Pain HPI - General Chief Complaint: Chest Pain Stated Complaint: Chest Pain,Back Pain Time Seen by Provider: 09/09/24 19:34 Source: patient Mode of arrival: wheelchair - History of Present Illness Initial Comments: Quick note: 58-year-old male presenting with chief complaint of chest pain. Started this afternoon when he was helping a neighbor move some furniture. States that the pain shoots into his back. - Related Data Home Medications Medication Instructions Recorded Confirmed Insulin Lispro [humaLOG Kwikpen] See Protocol SQ ACHS 06/16/21 06/14/24 Insulin Glargine,Hum.rec.anlog 50 units SQ DAILY 10/20/22 06/14/24 [Lantus Solostar Pen] Gabapentin 600 mg PO TID 03/25/24 06/14/24 Insulin Lispro [humaLOG Kwikpen] 10 unit SQ TID-W/MEALS 03/25/24 06/14/24 methocarbamoL [Robaxin-750] 750 mg PO TID 03/25/24 06/14/24 oxyCODONE-APAP 5-325MG [Percocet 1 tab PO QID 04/29/24 06/14/24 5-325 mg] Isosorbide Mononitrate ER [Imdur] 60 mg PO DAILY 06/14/24 06/14/24 Nitroglycerin Sl Tabs [Nitrostat] 0.4 mg SUBLINGUAL Q5M PRN 06/14/24 06/14/24 Pantoprazole [Protonix] 40 mg PO BID 06/14/24 06/14/24 carvediloL [Coreg] 25 mg PO BID 06/14/24 06/14/24 dilTIAZem HCL 30 mg PO DAILY 06/14/24 06/14/24 Allergies Allergy/AdvReac Type Severity Reaction Status Date / Time doxycycline Allergy Swelling Verified 09/09/24 19:32 ketorolac tromethamine Allergy Rash/Hives Verified 09/09/24 19:32 [From Toradol] morphine Allergy Rash/Hives Verified 09/09/24 19:32 metoclopramide HCl AdvReac Dystonic Verified 09/09/24 19:32 [From Reglan] Reaction prochlorperazine edisylate AdvReac Dystonic Verified 09/09/24 19:32 [From Compazine] Reaction prochlorperazine maleate AdvReac Dystonic Verified 09/09/24 19:32 [From Compazine] Reaction Review of Systems ROS Statement: Those systems with pertinent positive or pertinent negative responses have been documented in the HPI. ROS Other: All systems not noted in ROS Statement are negative. Past Medical History Past Medical History: Asthma, Coronary Artery Disease (CAD), Cancer, Chest Pain / Angina, Diabetes Mellitus, GERD/Reflux, GI Bleed, Hyperlipidemia, Hypertension, Myocardial Infarction (MD), Mitral Valve Prolapse (MVP), Pulmonary Embolus (PE), Sleep Apnea/CPAP/BIPAP Additional Past Medical History / Comment(s): Asthmatic bronchitis-chronic, IDDM type II, neuropathy bilateral feet, lower and upper GI bleeds, PUD, diverticulitis, colectomy d/t benign mass/intusseption, BPH, renal cysts, nephrolithiais, UTI with sepsis, chronic back pain 2ndary to herniated lumbar discs/sciatica, JARED does not use his Cpap, MVP, murmur, chronic dysphagia, colon cancer Last Myocardial Infarction Date:: 2011 History of Any Multi-Drug Resistant Organisms: C-DIFF, MRSA Date of last positivie culture/infection: 2015 MDRO Source:: left axilla Past Surgical History: Appendectomy, Back Surgery, Cholecystectomy, Heart Catheterization, Hernia Repair, Orthopedic Surgery Additional Past Surgical History / Comment(s): Lumbar decompression/fusion/laminectomy, spinal stimulator, T lift procedure, L inguinal hernia repair, multiple ESWLs/stents/double J caths, colonoscopy, 02/2020 colectomy, EGDs for food obstructions and dilations, NERVE STIMULATOR Past Anesthesia/Blood Transfusion Reactions: No Reported Reaction Past Psychological History: No Psychological Hx Reported Smoking Status: Never smoker Past Alcohol Use History: None Reported Past Drug Use History: None Reported - Past Family History Father Family Medical History: Chest Pain / Angina Additional Family Medical History / Comment(s): "lung problems" Mother Family Medical History: Blood Disorder, Cancer, Chest Pain / Angina, Congestive Heart Failure (CHF), Osteoarthritis (OA), Thyroid Disorder Additional Family Medical History / Comment(s): "assistant manager/embalmer cancer" blood clots General Exam - General Exam Comments Initial Comments: Visual Physical Exam Vital signs reviewed General: Well-appearing, nontoxic, no acute distress. Head: Normocephalic, atraumatic Eyes: PERRLA, EOMI ENT: Airway patent Chest: Nonlabored breathing Skin: No visual rash, normal skin tone Neuro: Alert and oriented 3 Musculoskeletal: No gross abnormalities Course Vital Signs 09/09/24 19:27 Temperature 98.2 F Pulse Rate 98 Respiratory 18 Rate Blood Pressure 165/96 O2 Sat by Pulse 98 Oximetry Chest Pain MDM - MDM I performed the quick note portion of this visit, electronically signed Dominick Garibay PA-C Patient later eloped from the waiting room prior to complete evaluation Disposition Clinical Impression: Chest pain Disposition: LEFT AGAINST MEDICAL ADVICE Condition: Undetermined Referrals: González Muñiz MD [Primary Care Provider] - 1-2 days
== END 2024-09-09 20:51 | disposition left against medical advice (07) ==
LOC: EC 19:22
DX: R07.9 Chest pain, unspecified (principal); Z88.8 Allergy status to other drugs, medicaments and biological substances; Z88.5 Allergy status to narcotic agent; Z53.29 Procedure and treatment not carried out because of patient's decision for other reasons
CPT/HCPCS: 93005; 99284

== ENCOUNTER 2024-09-12 10:36 | Emergency (ER) | payer OTHER ==
[2024-09-12 10:43] VITALS: TEMP 98
--- NOTE | 2024-09-12 10:58 | ED ---
General Adult HPI - General Chief complaint: Back Pain/Injury Stated complaint: back injury Time Seen by Provider: 09/12/24 10:45 Source: patient, RN notes reviewed Mode of arrival: ambulatory Limitations: no limitations - History of Present Illness Initial comments: 58-year-old male who is well-known to the department with chronic back pain presents emergency department for thoracic back pain. States that he was assisting one of his neighbors when he believes he may have infection in his back. He denies falling at the time of the injury. He endorses radiation of pain down bilateral lower extremities. Denies loss of bladder bowel continence or saddle anesthesias. Attempted to make appointment with his internal specialist however he was unable to get until Monday. He has been taking his gabapentin, Percocet, Robaxin with minimal relief. Denies increase in urinary frequency or urgency, flank pain. States he has been experiencing intermittent hematuria however has an appoint with urology for this. - Related Data Home Medications Medication Instructions Recorded Confirmed Insulin Lispro [humaLOG Kwikpen] See Protocol SQ ACHS 06/16/21 06/14/24 Insulin Glargine,Hum.rec.anlog 50 units SQ DAILY 10/20/22 06/14/24 [Lantus Solostar Pen] Gabapentin 600 mg PO TID 03/25/24 06/14/24 Insulin Lispro [humaLOG Kwikpen] 10 unit SQ TID-W/MEALS 03/25/24 06/14/24 methocarbamoL [Robaxin-750] 750 mg PO TID 03/25/24 06/14/24 oxyCODONE-APAP 5-325MG [Percocet 1 tab PO QID 04/29/24 06/14/24 5-325 mg] Isosorbide Mononitrate ER [Imdur] 60 mg PO DAILY 06/14/24 06/14/24 Nitroglycerin Sl Tabs [Nitrostat] 0.4 mg SUBLINGUAL Q5M PRN 06/14/24 06/14/24 Pantoprazole [Protonix] 40 mg PO BID 06/14/24 06/14/24 carvediloL [Coreg] 25 mg PO BID 06/14/24 06/14/24 dilTIAZem HCL 30 mg PO DAILY 06/14/24 06/14/24 Allergies Allergy/AdvReac Type Severity Reaction Status Date / Time doxycycline Allergy Swelling Verified 09/09/24 19:32 ketorolac tromethamine Allergy Rash/Hives Verified 09/09/24 19:32 [From Toradol] morphine Allergy Rash/Hives Verified 09/09/24 19:32 metoclopramide HCl AdvReac Dystonic Verified 09/09/24 19:32 [From Reglan] Reaction prochlorperazine edisylate AdvReac Dystonic Verified 09/09/24 19:32 [From Compazine] Reaction prochlorperazine maleate AdvReac Dystonic Verified 09/09/24 19:32 [From Compazine] Reaction Review of Systems ROS Statement: Those systems with pertinent positive or pertinent negative responses have been documented in the HPI. ROS Other: All systems not noted in ROS Statement are negative. Past Medical History Past Medical History: Asthma, Coronary Artery Disease (CAD), Cancer, Chest Pain / Angina, Diabetes Mellitus, GERD/Reflux, GI Bleed, Hyperlipidemia, Hypertens ion, Myocardial Infarction (ND), Mitral Valve Prolapse (MVP), Pulmonary Embolus (PE), Sleep Apnea/CPAP/BIPAP Additional Past Medical History / Comment(s): Asthmatic bronchitis-chronic, IDDM type II, neuropathy bilateral feet, lower and upper GI bleeds, PUD, diverticulitis, colectomy d/t benign mass/intusseption, BPH, renal cysts, nephrolithiais, UTI with sepsis, chronic back pain 2ndary to herniated lumbar discs/sciatica, JARED does not use his Cpap, MVP, murmur, chronic dysphagia, colon cancer Last Myocardial Infarction Date:: 2011 History of Any Multi-Drug Resistant Organisms: C-DIFF, MRSA Date of last positivie culture/infection: 2015 MDRO Source:: left axilla Past Surgical History: Appendectomy, Back Surgery, Cholecystectomy, Heart Catheterization, Hernia Repair, Orthopedic Surgery Additional Past Surgical History / Comment(s): Lumbar decompression/fusion/laminectomy, spinal stimulator, T lift procedure, L inguinal hernia repair, multiple ESWLs/stents/double J caths, colonoscopy, 02/2020 colectomy, EGDs for food obstructions and dilations, NERVE STIMULATOR Past Anesthesia/Blood Transfusion Reactions: No Reported Reaction Past Psychological History: No Psychological Hx Reported Smoking Status: Never smoker Past Alcohol Use History: None Reported Past Drug Use History: None Reported - Past Family History Father Family Medical History: Chest Pain / Angina Additional Family Medical History / Comment(s): "lung problems" Mother Family Medical History: Blood Disorder, Cancer, Chest Pain / Angina, Congestive Heart Failure (CHF), Osteoarthritis (OA), Thyroid Disorder Additional Family Medical History / Comment(s): "manager urgent care cancer" blood clots General Exam Limitations: no limitations General appearance: alert, in no apparent distress Neck exam: Present: normal inspection. Absent: tenderness, meningismus, lymphadenopathy Respiratory exam: Present: normal lung sounds bilaterally. Absent: respiratory distress, wheezes, rales, rhonchi, stridor Cardiovascular Exam: Present: regular rate, normal rhythm, normal heart sounds. Absent: systolic murmur, diastolic murmur, rubs, gallop, clicks GI/Abdominal exam: Present: soft, normal bowel sounds. Absent: distended, tenderness, guarding, rebound, rigid Extremities exam: Present: normal inspection, full ROM, normal capillary refill. Absent: tenderness, pedal edema, joint swelling, calf tenderness Back exam: Present: tenderness (with ROM, not on palpation), other (post- surgical incision sites, well healed) Neurological exam: Present: alert, oriented X3, CN II-XII intact Course Vital Signs 09/12/24 09/12/24 10:40 11:57 Temperature 98 F 98 F Pulse Rate 104 H 92 Respiratory 20 18 Rate Blood Pressure 158/97 152/86 O2 Sat by Pulse 99 99 Oximetry Medical Decision Making - Medical Decision Making Was pt. sent in by a medical professional or institution (, PA, BOLT HEADER, urgent care, hospital, or shelter...) When possible be specific @ -No Did you speak to anyone other than the patient for history (EMS, parent, family, police, friend...)? What history was obtained from this source @ -No Did you review nursing and triage notes (agree or disagree)? Why? @ -I reviewed and agree with nursing and triage notes Were old charts reviewed (outside hosp., previous admission, EMS record, old EKG, old radiological studies, urgent care reports/EKG's, shelter records)? Report findings @ -No old charts were reviewed Differential Diagnosis (chest pain, altered mental status, abdominal pain women, abdominal pain men, vaginal bleeding, weakness, fever, dyspnea, syncope, headache, dizziness, GI bleed, back pain, seizure, CVA, palpatations, mental health, musculoskeletal)? @ -Differential Back Pain: Strain, zoster, cauda equina syndrome, epidural abscess, vertebral osteomyelitis, discitis, fracture, subluxation, disc herniation, DJD, spinal stenosis, dissection, AAA, pancreatitis, peptic ulcer disease, pyelonephritis, kidney stone, this is not meant to be an all-inclusive list. EKG interpreted by me (3pts min.). @ -none X-rays interpreted by me (1pt min.). @ -None done CT interpreted by me (1pt min.). @ -None done U/S interpreted by me (1pt. min.). @ -None done What testing was considered but not performed or refused? (CT, X-rays, U/S, labs)? Why? @ -None What meds were considered but not given or refused? Why? @ -None Did you discuss the management of the patient with other professionals (professionals i.e. , PA, BOLT HEADER, lab, RT, psych nurse, social insurance analyst, kicking machine operator, teacher, occupational health and safety officer, porter sample case)? Give summary @ -No Was smoking cessation discussed for >3mins.? @ -No Was critical care preformed (if so, how long)? @ -No Were there social determinants of health that impacted care today? How? (Homelessness, low income, unemployed, alcoholism, drug addiction, transportation, low edu. Level, literacy, decrease access to med. care, longterm, rehab)? @ -No Was there de-escalation of care discussed even if they declined (Discuss DNR or withdrawal of care, Hospice)? DNR status @ -No What co-morbidities impacted this encounter? (DM, HTN, Smoking, COPD, CAD, Cancer, CVA, ARF, Chemo, Hep., AIDS, mental health diagnosis, sleep apnea, morbid obesity)? @ -None Was patient admitted / discharged? Hospital course, mention meds given and route, prescriptions, significant lab abnormalities, going to OR and other pertinent info. @ -Discharge. 58-year-old male well-known to emergency department for back pain. Overall is well-appearing with no red flag symptoms concerning for cauda equina. He is provided with pain medication. Recommend follow-up as scheduled with internal specialist. Case discussed with Dr. Balbuena Undiagnosed new problem with uncertain prognosis? @ -No Drug Therapy requiring intensive monitoring for toxicity (Heparin, Nitro, Insulin, Cardizem)? @ -No Were any procedures done? @ -No Diagnosis/symptom? @ -chronic back pain Acute, or Chronic, or Acute on Chronic? @ -acute Uncomplicated (without systemic symptoms) or Complicated (systemic symptoms)? @ -uncomplicated Side effects of treatment? @ -No Exacerbation, Progression, or Severe Exacerbation? @ -No Poses a threat to life or bodily function? How? (Chest pain, USA, ND, pneumonia, PE, COPD, DKA, ARF, appy, cholecystitis, CVA, Diverticulitis, Homicidal, Suicidal, threat to staff... and all critical care pts) @ -No Disposition Clinical Impression: Back pain Disposition: HOME SELF-CARE Condition: Good Instructions (If sedation given, give patient instructions): Chronic Back Pain (DC) Additional Instructions: Please return to the Emergency Department if symptoms worsen or any other concerns. Is patient prescribed a controlled substance at d/c from ED?: No Referrals: González Muñiz MD [Primary Care Provider] - 1-2 days Time of Disposition: 11:38
[2024-09-12] MEDS: methylPREDNISolone SOD SUCCI 125 MG/2 ML VIAL IM ONE (11:11)
[2024-09-12] MEDS: HYDROmorphone 1 MG/ML 1 ML SYRINGE IM STA (11:12)
[2024-09-12 12:00] VITALS: BP 152/86; PULSE 92; RESP 18
== END 2024-09-12 11:59 | disposition home or self-care (01) ==
LOC: EC 10:36
DX: G89.29 Other chronic pain (principal); M54.6 Pain in thoracic spine; X50.0XXA Overexertion from strenuous movement or load, initial encounter; Y92.009 Unspecified place in unspecified non-institutional (private) residence as the place of occurrence of the external cause
CPT/HCPCS: 99283; 96372 ×2; J1171; J2919

== ENCOUNTER 2024-10-08 17:28 | Emergency (ER) | payer OTHER ==
--- NOTE | 2024-10-08 18:05 | ED ---
Back Pain HPI - General Chief Complaint: Back Pain/Injury Stated Complaint: Back Injury Time Seen by Provider: 10/08/24 17:59 Source: patient, RN notes reviewed, old records reviewed Limitations: no limitations - History of Present Illness Initial Comments: This is a 58 male well-known to this facility patient states he fell off the daugherty of a moving truck landing on his back patient has severe back pain here in the ER but no loss of bowel or bladder states he just needs some pain medication to feel better MD Complaint: back pain, back injury, fall -: days(s) Similar Symptoms Previously: Yes Place: home Radiation: none Quality: sharp, dull Consistency: constant Improves With: none, movement Worsens With: none Associated Symptoms: denies other symptoms Treatments Prior to Arrival: other (0) - Related Data Home Medications Medication Instructions Recorded Confirmed Insulin Lispro [humaLOG Kwikpen] See Protocol SQ ACHS 06/16/21 06/14/24 Insulin Glargine,Hum.rec.anlog 50 units SQ DAILY 10/20/22 06/14/24 [Lantus Solostar Pen] Gabapentin 600 mg PO TID 03/25/24 06/14/24 Insulin Lispro [humaLOG Kwikpen] 10 unit SQ TID-W/MEALS 03/25/24 06/14/24 methocarbamoL [Robaxin-750] 750 mg PO TID 03/25/24 06/14/24 oxyCODONE-APAP 5-325MG [Percocet 1 tab PO QID 04/29/24 06/14/24 5-325 mg] Isosorbide Mononitrate ER [Imdur] 60 mg PO DAILY 06/14/24 06/14/24 Nitroglycerin Sl Tabs [Nitrostat] 0.4 mg SUBLINGUAL Q5M PRN 06/14/24 06/14/24 Pantoprazole [Protonix] 40 mg PO BID 06/14/24 06/14/24 carvediloL [Coreg] 25 mg PO BID 06/14/24 06/14/24 dilTIAZem HCL 30 mg PO DAILY 06/14/24 06/14/24 Allergies Allergy/AdvReac Type Severity Reaction Status Date / Time doxycycline Allergy Swelling Verified 10/10/24 11:58 ketorolac tromethamine Allergy Rash/Hives Verified 10/10/24 11:58 [From Toradol] morphine Allergy Rash/Hives Verified 10/10/24 11:58 metoclopramide HCl AdvReac Dystonic Verified 10/10/24 11:58 [From Reglan] Reaction prochlorperazine edisylate AdvReac Dystonic Verified 10/10/24 11:58 [From Compazine] Reaction prochlorperazine maleate AdvReac Dystonic Verified 10/10/24 11:58 [From Compazine] Reaction Review of Systems ROS Statement: Those systems with pertinent positive or pertinent negative responses have been documented in the HPI. ROS Other: All systems not noted in ROS Statement are negative. Past Medical History Past Medical History: Asthma, Coronary Artery Disease (CAD), Cancer, Chest Pain / Angina, Diabetes Mellitus, GERD/Reflux, GI Bleed, Hyperlipidemia, Hypertension, Myocardial Infarction (MS), Mitral Valve Prolapse (MVP), Pulmonary Embolus (PE), Sleep Apnea/CPAP/BIPAP Additional Past Medical History / Comment(s): Asthmatic bronchitis-chronic, IDDM type II, neuropathy bilateral feet, lower and upper GI bleeds, PUD, diverticulitis, colectomy d/t benign mass/intusseption, BPH, renal cysts, nephrolithiais, UTI with sepsis, chronic back pain 2ndary to herniated lumbar discs/sciatica, JARED does not use his Cpap, MVP, murmur, chronic dysphagia, colon cancer Last Myocardial Infarction Date:: 2011 History of Any Multi-Drug Resistant Organisms: C-DIFF, MRSA Date of last positivie culture/infection: 2015 MDRO Source:: left axilla Past Surgical History: Appendectomy, Back Surgery, Cholecystectomy, Heart Catheterization, Hernia Repair, Orthopedic Surgery Additional Past Surgical History / Comment(s): Lumbar decompression/fusion/laminectomy, spinal stimulator, T lift procedure, L inguinal hernia repair, multiple ESWLs/stents/double J caths, colonoscopy, 2019 colectomy, EGDs for food obstructions and dilations, NERVE STIMULATOR Past Anesthesia/Blood Transfusion Reactions: No Reported Reaction Past Psychological History: No Psychological Hx Reported Smoking Status: Never smoker Past Alcohol Use History: None Reported Past Drug Use History: None Reported - Past Family History Father Family Medical History: Chest Pain / Angina Additional Family Medical History / Comment(s): "lung problems" Mother Family Medical History: Blood Disorder, Cancer, Chest Pain / Angina, Congestive Heart Failure (CHF), Osteoarthritis (OA), Thyroid Disorder Additional Family Medical History / Comment(s): "tool planer set up operator cancer" blood clots General Exam Limitations: no limitations General appearance: alert, in no apparent distress Head exam: Present: atraumatic, normocephalic, normal inspection Eye exam: Present: normal appearance, PERRL, EOMI. Absent: scleral icterus, conjunctival injection, periorbital swelling ENT exam: Present: normal exam, mucous membranes moist Neck exam: Present: normal inspection. Absent: tenderness, meningismus, lymphadenopathy Respiratory exam: Present: normal lung sounds bilaterally. Absent: respiratory distress, wheezes, rales, rhonchi, stridor Cardiovascular Exam: Present: regular rate, normal rhythm, normal heart sounds. Absent: systolic murmur, diastolic murmur, rubs, gallop, clicks GI/Abdominal exam: Present: soft, normal bowel sounds. Absent: distended, tenderness, guarding, rebound, rigid Extremities exam: Present: normal inspection, full ROM, normal capillary refill. Absent: tenderness, pedal edema, joint swelling, calf tenderness Back exam: Present: normal inspection Neurological exam: Present: alert, oriented X3, CN II-XII intact Psychiatric exam: Present: normal affect, normal mood Skin exam: Present: warm, dry, intact, normal color. Absent: rash Course Vital Signs 10/08/24 10/08/24 10/08/24 17:37 18:59 19:02 Temperature 98.2 F 97.7 F Pulse Rate 122 H 112 H Respiratory 20 18 Rate Blood Pressure 144/90 162/98 O2 Sat by Pulse 99 99 Oximetry - Reevaluation(s) Reevaluation #1: Medical records reviewed Reevaluation #2: Patient symptoms resolved able to ambulate Reevaluation #3: Patient informed of results questions answered Reevaluation #4: Was pt. sent in by a medical professional or institution (, PA, DRUM PULLER, urgent care, hospital, or fdc...) When possible be specific @ -no Did you speak to anyone other than the patient for history (EMS, parent, family, police, friend...)? What history was obtained from this source @ -no Did you review nursing and triage notes (agree or disagree)? Why? @ -agree Are old charts reviewed (outside hosp., previous admission, EMS record, old EKG, old radiological studies, urgent care reports/EKG's, fdc records)? Report findings @ -yes Differential Diagnosis (chest pain, altered mental status, abdominal pain women, abdominal pain men, vaginal bleeding, weakness, fever, dyspnea, syncope, headache, dizziness, GI bleed, back pain, seizure, CVA, palpatations, mental health, musculoskeletal)? @ -prior EKG interpreted by me (3pts min.). @ -no X-rays interpreted by me (1pt min.). @ -no CT interpreted by me (1pt min.). @ -no U/S interpreted by me (1pt. min.). @ -no What testing was considered but not performed or refused? (CT, X-rays, U/S, labs)? Why? @ -none What meds were considered but not given or refused? Why? @ -none Did you discuss the management of the patient with other professionals (professionals i.e. , PA, DRUM PULLER, lab, RT, psych nurse, social work lecturer, piston maker, teacher, lodge officer, behavioral health case manager)? Give summary @ -no Was smoking cessation discussed for >3mins.? @ -no Was critical care preformed (if so, how long)? @ -no Were there social determinants of health that impacted care today? How? (Homelessness, low income, unemployed, alcoholism, drug addiction, transportation, low edu. Level, literacy, decrease access to med. care, custodial, rehab)? @ -none Was there de-escalation of care discussed even if they declined (Discuss DNR or withdrawal of care, Hospice)? DNR status @ -no What co-morbidities impacted this encounter? (DM, HTN, Smoking, COPD, CAD, Cancer, CVA, ARF, Chemo, Hep., AIDS, mental health diagnosis, sleep apnea, morbid obesity)? @ -none Was patient admitted / discharged? Hospital course, mention meds given and route, prescriptions, significant lab abnormalities, going to OR and other pertinent info. @ -58 male well-known to this emergency room for back pain patient given pain control can be discharged Discharge Undiagnosed new problem with uncertain prognosis? @ -no Drug Therapy requiring intensive monitoring for toxicity (Heparin, Nitro, Insulin, Cardizem)? @ -no Were any procedures done? @ -no Diagnosis/symp chronic back pain alexsandra? @ - Acute, or Chronic, or Acute on Chronic? @ -Acute Uncomplicated (without systemic symptoms) or Complicated (systemic symptoms)? @ -Complicated Side effects of treatment? @ -no Exacerbation, Progression, or Severe Exacerbation? @ -exacerbation Poses a threat to life or bodily function? How? (Chest pain, USA, MS, pneumonia, PE, COPD, DKA, ARF, appy, cholecystitis, CVA, Diverticulitis, Homicidal, Suicidal, threat to staff... and all critical care pts) @ -no Reevaluation #5: Differential Back Pain: Strain, zoster, cauda equina syndrome, epidural abscess, vertebral osteomyelitis, discitis, fracture, subluxation, disc herniation, DJD, spinal stenosis, dissection, AAA, pancreatitis, peptic ulcer disease, pyelonephritis, kidney stone, this is not meant to be an all-inclusive list. Medical Decision Making - Medical Decision Making 58 male to the ER for evaluation patient presents today for evaluation of severe back pain back pain is well-controlled here in the ER and can be discharged home - Radiology Data Radiology results: report reviewed (XR Of the T and L-spine negative for traum atic injury), image reviewed Disposition Clinical Impression: Mid back pain, Fall, Back contusion Disposition: HOME SELF-CARE Condition: Fair Instructions (If sedation given, give patient instructions): Acute Low Back Pain (ED) Is patient prescribed a controlled substance at d/c from ED?: No Referrals: González Muñiz MD [Primary Care Provider] - 1-2 days Time of Disposition: 18:20
--- NOTE | 2024-10-08 18:26 | XR ---
EXAMINATION TYPE: XR thoracic spine 2V, XR lumbar spine 2 or 3V DATE OF EXAM: 10/08/2024 6:03 PM COMPARISON: None CLINICAL INDICATION: Male, 58 years old with history of pain s/p fall; PHH, pain TECHNIQUE: XR thoracic spine 2V, XR lumbar spine 2 or 3V views of the spine in Frontal, swimmers and lateral projections. Frontal lateral and coned in L5-S1 views of the lumbar spine. FINDINGS: Fixation hardware in the lumbar spine at L3 L4 L5 and S1 appears intact. Discectomy at L3-L4 present. No evidence of acute fracture. There is scattered multilevel disk space narrowing without loss of ve rtebral body height. There is normal alignment of the thoracic vertebral bodies. Scattered osteophyte formation along the anterior and lateral aspects of the vertebral bodies. Neural foramen are patent given limitations of this exam. Spinal canal appears patent. Postsurgical changes lower cervical spin e. Right upper quadrant dissection clips. IMPRESSION: 1. No acute osseous pathology. 2. 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 [facility], , 10/08/2024 6:24 PM
[2024-10-08 19:00] VITALS: PULSE 112; RESP 18; TEMP 97.7
[2024-10-08 19:02] VITALS: BP 162/98
[2024-10-08] MEDS: diphenhydrAMINE 50 MG CAP PO STA (19:02)
[2024-10-08] MEDS: HYDROmorphone 1 MG/ML 1 ML SYRINGE IM STA (19:06)
== END 2024-10-08 19:23 | disposition home or self-care (01) ==
LOC: EC 17:28
DX: S20.224A Contusion of middle back wall of thorax, initial encounter (principal); Z88.1 Allergy status to other antibiotic agents; Z88.6 Allergy status to analgesic agent; Z88.8 Allergy status to other drugs, medicaments and biological substances; W17.89XA Other fall from one level to another, initial encounter; Y92.009 Unspecified place in unspecified non-institutional (private) residence as the place of occurrence of the external cause
CPT/HCPCS: 99283; 96372; 72070; 72100; J1171

== ENCOUNTER 2024-10-10 11:50 | Emergency (ER) | payer OTHER ==
--- NOTE | 2024-10-10 12:57 | ED ---
General Adult HPI - General Chief complaint: Back Pain/Injury Stated complaint: Recheck Back Pain Time Seen by Provider: 10/10/24 12:04 Source: patient, RN notes reviewed Mode of arrival: ambulatory Limitations: no limitations - History of Present Illness Initial comments: Patient is a 58-year-old male present to the emergency department with concerns for back pain. Patient has chronic back pain. Patient states he did have a fall a couple of days ago. Patient states his x-rays were negative however when he followed up with his doctor today he was sent here for CAT scan of his back. Patient does have history of previous thoracic back surgery. No new incontinence or retention of bowel or bladder. No new leg weakness or loss of sensation. - Related Data Home Medications Medication Instructions Recorded Confirmed Insulin Lispro [humaLOG Kwikpen] See Protocol SQ ACHS 06/16/21 06/14/24 Insulin Glargine,Hum.rec.anlog 50 units SQ DAILY 10/20/22 06/14/24 [Lantus Solostar Pen] Gabapentin 600 mg PO TID 03/25/24 06/14/24 Insulin Lispro [humaLOG Kwikpen] 10 unit SQ TID-W/MEALS 03/25/24 06/14/24 methocarbamoL [Robaxin-750] 750 mg PO TID 03/25/24 06/14/24 oxyCODONE-APAP 5-325MG [Percocet 1 tab PO QID 04/29/24 06/14/24 5-325 mg] Isosorbide Mononitrate ER [Imdur] 60 mg PO DAILY 06/14/24 06/14/24 Nitroglycerin Sl Tabs [Nitrostat] 0.4 mg SUBLINGUAL Q5M PRN 06/14/24 06/14/24 Pantoprazole [Protonix] 40 mg PO BID 06/14/24 06/14/24 carvediloL [Coreg] 25 mg PO BID 06/14/24 06/14/24 dilTIAZem HCL 30 mg PO DAILY 06/14/24 06/14/24 Allergies Allergy/AdvReac Type Severity Reaction Status Date / Time doxycycline Allergy Swelling Verified 10/10/24 11:58 ketorolac tromethamine Allergy Rash/Hives Verified 10/10/24 11:58 [From Toradol] morphine Allergy Rash/Hives Verified 10/10/24 11:58 metoclopramide HCl AdvReac Dystonic Verified 10/10/24 11:58 [From Reglan] Reaction prochlorperazine edisylate AdvReac Dystonic Verified 10/10/24 11:58 [From Compazine] Reaction prochlorperazine maleate AdvReac Dystonic Verified 10/10/24 11:58 [From Compazine] Reaction Review of Systems ROS Statement: Those systems with pertinent positive or pertinent negative responses have been documented in the HPI. ROS Other: All systems not noted in ROS Statement are negative. Constitutional: Denies: fever Eyes: Denies: eye pain ENT: Denies: throat pain Respiratory: Denies: dyspnea Cardiovascular: Denies: chest pain Gastrointestinal: Denies: abdominal pain Musculoskeletal: Reports: as per HPI, back pain Neurological: Denies: weakness Past Medical History Past Medical History: Asthma, Coronary Artery Disease (CAD), Cancer, Chest Pain / Angina, Diabetes Mellitus, GERD/Reflux, GI Bleed, Hyperlipidemia, Hypertension, Myocardial Infarction (MD), Mitral Valve Prolapse (MVP), Pulmonary Embolus (PE), Sleep Apnea/CPAP/BIPAP Additional Past Medical History / Comment(s): Asthmatic bronchitis-chronic, IDDM type II, neuropathy bilateral feet, lower and upper GI bleeds, PUD, diverticulitis, colectomy d/t benign mass/intusseption, BPH, renal cysts, nephrolithiais, UTI with sepsis, chronic back pain 2ndary to herniated lumbar discs/sciatica, JARED does not use his Cpap, MVP, murmur, chronic dysphagia, colon cancer Last Myocardial Infarction Date:: 2011 History of Any Multi-Drug Resistant Organisms: C-DIFF, MRSA Date of last positivie culture/infection: 2015 MDRO Source:: left axilla Past Surgical History: Appendectomy, Back Surgery, Cholecystectomy, Heart Catheterization, Hernia Repair, Orthopedic Surgery Additional Past Surgical History / Comment(s): Lumbar decompression/fusion/laminectomy, spinal stimulator, T lift procedure, L inguinal hernia repair, multiple ESWLs/stents/double J caths, colonoscopy, 02/2020 colectomy, EGDs for food obstructions and dilations, NERVE STIMULATOR Past Anesthesia/Blood Transfusion Reactions: No Reported Reaction Past Psychological History: No Psychological Hx Reported Smoking Status: Never smoker Past Alcohol Use History: None Reported Past Drug Use History: None Reported - Past Family History Father Family Medical History: Chest Pain / Angina Additional Family Medical History / Comment(s): "lung problems" Mother Family Medical History: Blood Disorder, Cancer, Chest Pain / Angina, Congestive Heart Failure (CHF), Osteoarthritis (OA), Thyroid Disorder Additional Family Medical History / Comment(s): "grain ii farmworker cancer" blood clots General Exam Limitations: no limitations General appearance: alert, in no apparent distress Head exam: Present: normocephalic Eye exam: Present: normal appearance Neck exam: Present: normal inspection, full ROM. Absent: tenderness Respiratory exam: Present: normal lung sounds bilaterally Cardiovascular Exam: Present: regular rate, normal rhythm GI/Abdominal exam: Present: soft. Absent: tenderness Extremities exam: Present: normal inspection, full ROM. Absent: tenderness Back exam: Present: vertebral tenderness (Minimal tenderness midline lower thoracic region, approximately T9/T10) Neurological exam: Present: alert. Absent: motor sensory deficit Expanded Sensory exam: Lower Extremity Light Touch: Normal Motor strength exam: RUE: 5, LUE: 5, RLE: 5, LLE: 5 Eye Response: (4) open spontaneously Motor Response: (6) obeys commands Verbal Response: (5) oriented Psychiatric exam: Present: normal affect, normal mood Skin exam: Present: normal color Course Vital Signs 10/10/24 10/10/24 11:54 12:43 Temperature 98.2 F Pulse Rate 121 H 101 H Respiratory 18 Rate Blood Pressure 142/88 O2 Sat by Pulse 98 99 Oximetry Medical Decision Making - Medical Decision Making Was pt. sent in by a medical professional or institution (Dr. PA, INSPECTING SUPERVISOR, urgent care, hospital, or half-way...) When possible be specific @ -Patient states he was sent over by Dr. Muñiz's office Did you speak to anyone other than the patient for history (EMS, parent, family, police, friend...)? What history was obtained from this source @ -No Did you review nursing and triage notes (agree or disagree)? Why? @ -I reviewed and agree with nursing and triage notes Were old charts reviewed (outside hosp., previous admission, EMS record, old EKG, old radiological studies, urgent care reports/EKG's, half-way records)? Report findings @ -Multiple previous visits reviewed Differential Diagnosis (chest pain, altered mental status, abdominal pain women, abdominal pain men, vaginal bleeding, weakness, fever, dyspnea, syncope, headache, dizziness, GI bleed, back pain, seizure, CVA, palpatations, mental health, musculoskeletal)? @ -Differential Back Pain: Strain, zoster, cauda equina syndrome, epidural abscess, vertebral osteomyelitis, discitis, fracture, subluxation, disc herniation, DJD, spinal stenosis, dissection, AAA, pancreatitis, peptic ulcer disease, pyelonephritis, kidney stone, this is not meant to be an all-inclusive list. EKG interpreted by me (3pts min.). @ -As above X-rays interpreted by me (1pt min.). @ -None done CT interpreted by me (1pt min.). @ -CT thoracic spine shows postoperative changes. No acute abnormality U/S interpreted by me (1pt. min.). @ -None done What testing was considered but not performed or refused? (CT, X-rays, U/S, labs)? Why? @ -None What meds were considered but not given or refused? Why? @ -None Did you discuss the management of the patient with other professionals (professionals i.e. , PA, INSPECTING SUPERVISOR, lab, RT, psych nurse, social service liaison, sales floor team leader, teacher, affirmative action officer, case repairer)? Give summary @ -No Was smoking cessation discussed for >3mins.? @ -No Was critical care preformed (if so, how long)? @ -No Were there social determinants of health that impacted care today? How? (Homelessness, low income, unemployed, alcoholism, drug addiction, transportation, low edu. Level, literacy, decrease access to med. care, [facility], rehab)? @ -No Was there de-escalation of care discussed even if they declined (Discuss DNR or withdrawal of care, Hospice)? DNR status @ -No What co-morbidities impacted this encounter? (DM, HTN, Smoking, COPD, CAD, Cancer, CVA, ARF, Chemo, Hep., AIDS, mental health diagnosis, sleep apnea, morbid obesity)? @ -None Was patient admitted / discharged? Hospital course, mention meds given and route, prescriptions, significant lab abnormalities, going to OR and other pertinent info. @ -Patient presents again with acute on chronic back pain. Patient states his doctor wants a CT scan of the thoracic spine. This was ordered without any evidence of acute abnormality. Patient will be discharged. Patient requests a Percocet that he does normally take at home. Patient is updated on results and need for follow-up Undiagnosed new problem with uncertain prognosis? @ -No Drug Therapy requiring intensive monitoring for toxicity (Heparin, Nitro, Insulin, Cardizem)? @ -No Were any procedures done? @ -No Diagnosis/symptom? @ -Back pain Acute, or Chronic, or Acute on Chronic? @ -Acute on chronic Uncomplicated (without systemic symptoms) or Complicated (systemic symptoms)? @ -Default Side effects of treatment? @ -No Exacerbation, Progression, or Severe Exacerbation? @ -No Poses a threat to life or bodily function? How? (Chest pain, USA, MD, pneumonia, PE, COPD, DKA, ARF, appy, cholecystitis, CVA, Diverticulitis, Homicidal, Suicidal, threat to staff... and all critical care pts) @ -No Disposition Clinical Impression: Chronic back pain Disposition: HOME SELF-CARE Condition: Stable Instructions (If sedation given, give patient instructions): Acute Low Back Pain (ED) Additional Instructions: Please do follow-up with your primary care physician in the next day or 2 for recheck. Return for weakness, loss of control of bowel or bladder function, worsening symptoms or other concerns. Is patient prescribed a controlled substance at d/c from ED?: No Referrals: González Muñiz MD [Primary Care Provider] - 1-2 days Time of Disposition: 14:16
--- NOTE | 2024-10-10 13:55 | CT ---
EXAMINATION TYPE: CT thoracic spine wo con DATE OF EXAM: 10/10/2024 COMPARISON: CT thoracolumbar spine dated 07/05/2024 CLINICAL INDICATION: Male, 58 years old with history of fall; [facility], Fall, mid back pain CT DLP: 1136.3 mGycm Automated exposure control for dose reduction was used. FINDINGS: The lumbar vertebral segments are normal in height and alignment there is no fracture or subluxation. There is flowing anterior osteophytes in the mid to lower thoracic spine. The disc spaces are well p reserved in height. There is a laminectomy defect from T9 through T12. There is no lumbar disc herniation. There is no re current spinal stenosis. IMPRESSION: No evidence of acute trauma to the thoracic spine. Postsurgical changes as described above. [facility], Workstation: AMANDA 10/10/2024 1:53 PM
[2024-10-10] MEDS: oxyCODONE-APAP 5-325MG 1 EACH TAB PO STA (14:17)
[2024-10-10 14:28] VITALS: BP 139/88; PULSE 102; RESP 20; TEMP 98
== END 2024-10-10 14:26 | disposition home or self-care (01) ==
LOC: EC 11:50
DX: G89.29 Other chronic pain (principal); M54.9 Dorsalgia, unspecified; Z88.8 Allergy status to other drugs, medicaments and biological substances; Z88.5 Allergy status to narcotic agent
CPT/HCPCS: 72128; 99284

== ENCOUNTER 2024-10-27 18:55 | Emergency (ER) | payer OTHER ==
[2024-10-27] MEDS: HYDROmorphone 1 MG/ML 1 ML SYRINGE IM STA (19:28)
--- NOTE | 2024-10-27 19:30 | ED ---
Chest Pain HPI - General Chief Complaint: Chest Pain Stated Complaint: Chest pain Time Seen by Provider: 10/27/24 18:57 Source: patient, EMS, RN notes reviewed, old records reviewed Mode of arrival: EMS Limitations: no limitations - History of Present Illness Initial Comments: This is a 58-year-old male presenting with chest pain history of chronic pain chronic back pain chronic chest pain. Patient states he recently was evaluated for this chest pain less than 3 months ago with a heart catheterization that was normal. Patient knows that it is not his heart he notes that he likely just has chronic pain and needed pain medication MD Complaint: chest pain -: days(s) Onset: during rest, during exertion Pain Location: substernal, left chest Pain Radiation: none Severity: moderate Severity scale (1-10): 4 Quality: aching Consistency: constant Improves With: nothing Worsens With: nothing Other Symptoms: palpitations Treatments Prior to Arrival: none - Related Data Home Medications Medication Instructions Recorded Confirmed Insulin Lispro [humaLOG Kwikpen] See Protocol SQ ACHS 06/16/21 06/14/24 Insulin Glargine,Hum.rec.anlog 50 units SQ DAILY 10/20/22 06/14/24 [Lantus Solostar Pen] Gabapentin 600 mg PO TID 03/25/24 06/14/24 Insulin Lispro [humaLOG Kwikpen] 10 unit SQ TID-W/MEALS 03/25/24 06/14/24 methocarbamoL [Robaxin-750] 750 mg PO TID 03/25/24 06/14/24 oxyCODONE-APAP 5-325MG [Percocet 1 tab PO QID 04/29/24 06/14/24 5-325 mg] Isosorbide Mononitrate ER [Imdur] 60 mg PO DAILY 06/14/24 06/14/24 Nitroglycerin Sl Tabs [Nitrostat] 0.4 mg SUBLINGUAL Q5M PRN 06/14/24 06/14/24 Pantoprazole [Protonix] 40 mg PO BID 06/14/24 06/14/24 carvediloL [Coreg] 25 mg PO BID 06/14/24 06/14/24 dilTIAZem HCL 30 mg PO DAILY 06/14/24 06/14/24 Allergies Allergy/AdvReac Type Severity Reaction Status Date / Time doxycycline Allergy Swelling Verified 10/10/24 11:58 ketorolac tromethamine Allergy Rash/Hives Verified 10/10/24 11:58 [From Toradol] morphine Allergy Rash/Hives Verified 10/10/24 11:58 metoclopramide HCl AdvReac Dystonic Verified 10/10/24 11:58 [From Reglan] Reaction prochlorperazine edisylate AdvReac Dystonic Verified 10/10/24 11:58 [From Compazine] Reaction prochlorperazine maleate AdvReac Dystonic Verified 10/10/24 11:58 [From Compazine] Reaction Review of Systems ROS Statement: Those systems with pertinent positive or pertinent negative responses have been documented in the HPI. ROS Other: All systems not noted in ROS Statement are negative. EKG Findings - EKG Comments: EKG Findings:: EKG is sinus 73 OK 166 QRS 113 QTc 431 - EKG Results: EKG: interpreted by LUIS Past Medical History Past Medical History: Asthma, Coronary Artery Disease (CAD), Cancer, Chest Pain / Angina, Diabetes Mellitus, GERD/Reflux, GI Bleed, Hyperlipidemia, Hypertension, Myocardial Infarction (NV), Mitral Valve Prolapse (MVP), Pulmonary Embolus (PE), Sleep Apnea/CPAP/BIPAP Additional Past Medical History / Comment(s): Asthmatic bronchitis-chronic, IDDM type II, neuropathy bilateral feet, lower and upper GI bleeds, PUD, diverticulitis, colectomy d/t benign mass/intusseption, BPH, renal cysts, nephrolithiais, UTI with sepsis, chronic back pain 2ndary to herniated lumbar discs/sciatica, JARED does not use his Cpap, MVP, murmur, chronic dysphagia, colon cancer Last Myocardial Infarction Date:: 2011 History of Any Multi-Drug Resistant Organisms: C-DIFF, MRSA Date of last positivie culture/infection: 2015 MDRO Source:: left axilla Past Surgical History: Appendectomy, Back Surgery, Cholecystectomy, Heart Catheterization, Hernia Repair, Orthopedic Surgery Additional Past Surgical History / Comment(s): Lumbar decompression/fusion/laminectomy, spinal stimulator, T lift procedure, L inguinal hernia repair, multiple ESWLs/stents/double J caths, colonoscopy, 02/2020 colectomy, EGDs for food obstructions and dilations, NERVE STIMULATOR Past Anesthesia/Blood Transfusion Reactions: No Reported Reaction Past Psychological History: No Psychological Hx Reported Smoking Status: Never smoker Past Alcohol Use History: None Reported Past Drug Use History: None Reported - Past Family History Father Family Medical History: Chest Pain / Angina Additional Family Medical History / Comment(s): "lung problems" Mother Family Medical History: Blood Disorder, Cancer, Chest Pain / Angina, Congestive Heart Failure (CHF), Osteoarthritis (OA), Thyroid Disorder Additional Family Medical History / Comment(s): "medical artist cancer" blood clots General Exam General appearance: alert, in no apparent distress Head exam: Present: atraumatic, normocephalic, normal inspection Eye exam: Present: normal appearance, PERRL, EOMI. Absent: scleral icterus, conjunctival injection, periorbital swelling ENT exam: Present: normal exam, mucous membranes moist Neck exam: Present: normal inspection. Absent: tenderness, meningismus, lymphadenopathy Respiratory exam: Present: normal lung sounds bilaterally. Absent: respiratory distress, wheezes, rales, rhonchi, stridor Cardiovascular Exam: Present: regular rate, normal rhythm, normal heart sounds. Absent: systolic murmur, diastolic murmur, rubs, gallop, clicks GI/Abdominal exam: Present: soft, normal bowel sounds. Absent: distended, tenderness, guarding, rebound, rigid Extremities exam: Present: normal inspection, full ROM, normal capillary refill. Absent: tenderness, pedal edema, joint swelling, calf tenderness Back exam: Present: normal inspection Neurological exam: Present: alert, oriented X3, CN II-XII intact Psychiatric exam: Present: normal affect, normal mood Skin exam: Present: warm, dry, intact, normal color. Absent: rash Course Vital Signs 10/27/24 18:56 Temperature 98.3 F Pulse Rate 96 Respiratory 20 Rate Blood Pressure 177/111 O2 Sat by Pulse 99 Oximetry - Reevaluation(s) Reevaluation #1: 10/27/24 20:02 Medical records reviewed Reevaluation #2: 10/27/24 20:02 Patient symptoms improved Reevaluation #3: 10/27/24 20:02 Patient formed of results questions answered Reevaluation #4: Was pt. sent in by a medical professional or institution (, PA, SITE ACQUISITION SPECIALIST, urgent care, hospital, or custodial...) When possible be specific @ -no Did you speak to anyone other than the patient for history (EMS, parent, family, police, friend...)? What history was obtained from this source @ -no Did you review nursing and triage notes (agree or disagree)? Why? @ -agree Are old charts reviewed (outside hosp., previous admission, EMS record, old EKG, old radiological studies, urgent care reports/EKG's, custodial records)? Report findings @ -yes Differential Diagnosis (chest pain, altered mental status, abdominal pain women, abdominal pain men, vaginal bleeding, weakness, fever, dyspnea, syncope, headache, dizziness, GI bleed, back pain, seizure, CVA, palpatations, mental health, musculoskeletal)? @ -prior EKG interpreted by me (3pts min.). @ -yes X-rays interpreted by me (1pt min.). @ -yes negative for acute disease CT interpreted by me (1pt min.). @ -no U/S interpreted by me (1pt. min.). @ -no What testing was considered but not performed or refused? (CT, X-rays, U/S, labs)? Why? @ -none What meds were considered but not given or refused? Why? @ -none Did you discuss the management of the patient with other professionals (professionals i.e. , PA, SITE ACQUISITION SPECIALIST, lab, RT, psych nurse, social sciences instructor, ramp service agent, teacher, aviation tactical readiness officer, counseling case manager)? Give summary @ -no Was smoking cessation discussed for >3mins.? @ -no Was critical care preformed (if so, how long)? @ -no Were there social determinants of health that impacted care today? How? (Vasiliy elessness, low income, unemployed, alcoholism, drug addiction, transportation, low edu. Level, literacy, decrease access to med. care, custodial, rehab)? @ -none Was there de-escalation of care discussed even if they declined (Discuss DNR or withdrawal of care, Hospice)? DNR status @ -no What co-morbidities impacted this encounter? (DM, HTN, Smoking, COPD, CAD, Cancer, CVA, ARF, Chemo, Hep., AIDS, mental health diagnosis, sleep apnea, morbid obesity)? @ -none Was patient admitted / discharged? Hospital course, mention meds given and route, prescriptions, significant lab abnormalities, going to OR and other pertinent info. @ - Undiagnosed new problem with uncertain prognosis? @ -no Drug Therapy requiring intensive monitoring for toxicity (Heparin, Nitro, Insulin, Cardizem)? @ -no Were any procedures done? @ -no Diagnosis/symptom? @ - Acute, or Chronic, or Acute on Chronic? @ -Acute Uncomplicated (without systemic symptoms) or Complicated (systemic symptoms)? @ -Complicated Side effects of treatment? @ -no Exacerbation, Progression, or Severe Exacerbation? @ -exacerbation Poses a threat to life or bodily function? How? (Chest pain, USA, NV, pneumonia, PE, COPD, DKA, ARF, appy, cholecystitis, CVA, Diverticulitis, Homicidal, Suicidal, threat to staff... and all critical care pts) @ -yes Reevaluation #5: Differential Chest Pain: Stable Angina, Unstable Angina, STEMI, NSTEMI Aortic Dissection, Pneumothorax, Musculoskeletal, Esophageal Spasm GERD, Cholecystitis, Pancreatitis, Zoster, this is not meant to be an all-inclusive list. Chest Pain MDM - MDM 58 male for chest pain no cause of chest pain here in the ER recent heart catheterization normal EKG normal chest x-ray normal patient can be discharged home Disposition Clinical Impression: Chest wall syndrome Disposition: HOME SELF-CARE Condition: Good Instructions (If sedation given, give patient instructions): Chest Pain (ED), Costochondritis (ED) Is patient prescribed a controlled substance at d/c from ED?: No Referrals: González Muñiz MD [Primary Care Provider] - 1-2 days Time of Disposition: 19:45
--- NOTE | 2024-10-27 19:50 | XR ---
EXAMINATION TYPE: XR chest 2V DATE OF EXAM: 10/27/2024 7:40 PM COMPARISON: None. CLINICAL INDICATION: Male, 58 years old with history of cp; [facility] TECHNIQUE: XR chest 2V Frontal and lateral views of the chest. FINDINGS: Lungs/Pleura: There is no evidence of pleural effusion, focal consolidation, or pneumothorax. Pulmonary vascularity: Unremarkable. Heart/mediastinum: Cardiomediastinal silhouette is unremarkable. Musculoskeletal: No acute osseous pathology. Partially visualized cervical spinal fusion hardware. Other findings: None IMPRESSION: No acute cardiopulmonary disease/process. [facility], , 10/27/2024 7:48 PM
[2024-10-27 20:27] VITALS: BP 179/102; PULSE 99; RESP 18; TEMP 98.1
== END 2024-10-27 20:28 | disposition home or self-care (01) ==
LOC: EC 18:55
DX: R07.9 Chest pain, unspecified (principal); G89.29 Other chronic pain; Z88.1 Allergy status to other antibiotic agents; Z88.3 Allergy status to other anti-infective agents; Z88.5 Allergy status to narcotic agent; Z88.8 Allergy status to other drugs, medicaments and biological substances
CPT/HCPCS: 93005; 71046; 99285; 96372; J1171; 96374

== ENCOUNTER 2024-10-28 10:42 | Emergency (ER) | payer OTHER ==
--- NOTE | 2024-10-28 11:28 | ED ---
General Adult HPI - General Chief complaint: Chest Pain Stated complaint: Chest pain Time Seen by Provider: 10/28/24 10:46 Source: patient, RN notes reviewed, old records reviewed Mode of arrival: EMS Limitations: no limitations - History of Present Illness Initial comments: 58-year-old male presenting for evaluation for central chest pain. Patient does have history of chronic pain and is well-known to this hospital. He states he was seen yesterday had EKG and chest x-ray and was subsequently discharged. Patient denies dyspnea. Denies fever. He has had a recent heart cath at outside hospital, no stenting. - Related Data Home Medications Medication Instructions Recorded Confirmed Insulin Lispro [humaLOG Kwikpen] See Protocol SQ ACHS 06/16/21 06/14/24 Insulin Glargine,Hum.rec.anlog 50 units SQ DAILY 10/20/22 06/14/24 [Lantus Solostar Pen] Gabapentin 600 mg PO TID 03/25/24 06/14/24 Insulin Lispro [humaLOG Kwikpen] 10 unit SQ TID-W/MEALS 03/25/24 06/14/24 methocarbamoL [Robaxin-750] 750 mg PO TID 03/25/24 06/14/24 oxyCODONE-APAP 5-325MG [Percocet 1 tab PO QID 04/29/24 06/14/24 5-325 mg] Isosorbide Mononitrate ER [Imdur] 60 mg PO DAILY 06/14/24 06/14/24 Nitroglycerin Sl Tabs [Nitrostat] 0.4 mg SUBLINGUAL Q5M PRN 06/14/24 06/14/24 Pantoprazole [Protonix] 40 mg PO BID 06/14/24 06/14/24 carvediloL [Coreg] 25 mg PO BID 06/14/24 06/14/24 dilTIAZem HCL 30 mg PO DAILY 06/14/24 06/14/24 Allergies Allergy/AdvReac Type Severity Reaction Status Date / Time doxycycline Allergy Swelling Verified 10/28/24 13:22 ketorolac tromethamine Allergy Rash/Hives Verified 10/28/24 13:22 [From Toradol] morphine Allergy Rash/Hives Verified 10/28/24 13:22 metoclopramide HCl AdvReac Dystonic Verified 10/28/24 13:22 [From Reglan] Reaction prochlorperazine edisylate AdvReac Dystonic Verified 10/28/24 13:22 [From Compazine] Reaction prochlorperazine maleate AdvReac Dystonic Verified 10/28/24 13:22 [From Compazine] Reaction Review of Systems ROS Statement: Those systems with pertinent positive or pertinent negative responses have been documented in the HPI. ROS Other: All systems not noted in ROS Statement are negative. Past Medical History Past Medical History: Asthma, Coronary Artery Disease (CAD), Cancer, Chest Pain / Angina, Diabetes Mellitus, GERD/Reflux, GI Bleed, Hyperlipidemia, Hypertension, Myocardial Infarction (NH), Mitral Valve Prolapse (MVP), Pulmonary Embolus (PE), Sleep Apnea/CPAP/BIPAP Additional Past Medical History / Comment(s): Asthmatic bronchitis-chronic, IDDM type II, neuropathy bilateral feet, lower and upper GI bleeds, PUD, diverticulitis, colectomy d/t benign mass/intusseption, BPH, renal cysts, nephrolithiais, UTI with sepsis, chronic back pain 2ndary to herniated lumbar discs/sciatica, JARED does not use his Cpap, MVP, murmur, chronic dysphagia, colon cancer Last Myocardial Infarction Date:: 2011 History of Any Multi-Drug Resistant Organisms: C-DIFF, MRSA Date of last positivie culture/infection: 2015 MDRO Source:: left axilla Past Surgical History: Appendectomy, Back Surgery, Cholecystectomy, Heart Catheterization, Hernia Repair, Orthopedic Surgery Additional Past Surgical History / Comment(s): Lumbar decompression/fusion/laminectomy, spinal stimulator, T lift procedure, L inguinal hernia repair, multiple ESWLs/stents/double J caths, colonoscopy, 02/2020 colectomy, EGDs for food obstructions and dilations, NERVE STIMULATOR Past Anesthesia/Blood Transfusion Reactions: No Reported Reaction Past Psychological History: No Psychological Hx Reported Smoking Status: Never smoker Past Alcohol Use History: None Reported Past Drug Use History: None Reported - Past Family History Father Family Medical History: Chest Pain / Angina Additional Family Medical History / Comment(s): "lung problems" Mother Family Medical History: Blood Disorder, Cancer, Chest Pain / Angina, Congestive Heart Failure (CHF), Osteoarthritis (OA), Thyroid Disorder Additional Family Medical History / Comment(s): "medical insurance claims specialist cancer" blood clots General Exam Limitations: no limitations General appearance: alert, in no apparent distress Head exam: Present: atraumatic, normocephalic Eye exam: Present: normal appearance, PERRL ENT exam: Present: normal exam Neck exam: Present: normal inspection. Absent: tenderness, meningismus Respiratory exam: Present: normal lung sounds bilaterally. Absent: respiratory distress, wheezes Cardiovascular Exam: Present: regular rate, normal rhythm GI/Abdominal exam: Present: soft. Absent: distended, tenderness, guarding Extremities exam: Present: normal inspection, normal capillary refill Neurological exam: Present: alert, oriented X3, CN II-XII intact. Absent: motor sensory deficit Skin exam: Present: warm, dry, intact. Absent: cyanosis, diaphoretic Course Vital Signs 10/28/24 10/28/24 10/28/24 10:46 11:30 12:30 Temperature 98.9 F 98.8 F Pulse Rate 100 96 98 Respiratory 20 19 16 Rate Blood Pressure 184/110 179/101 148/99 O2 Sat by Pulse 99 98 98 Oximetry Medical Decision Making - Medical Decision Making Was pt. sent in by a medical professional or institution (, PA, M[employer], urgent care, hospital, or chcf...) When possible be specific @ -No Did you speak to anyone other than the patient for history (EMS, parent, family, police, friend...)? What history was obtained from this source @ -No Did you review nursing and triage notes (agree or disagree)? Why? @ -I reviewed and agree with nursing and triage notes Were old charts reviewed (outside hosp., previous admission, EMS record, old EKG, old radiological studies, urgent care reports/EKG's, chcf records)? Report findings @ -No old charts were reviewed Differential Chest Pain: Stable Angina, Unstable Angina, STEMI, NSTEMI Aortic Dissection, Pneumothorax, Musculoskeletal, Esophageal Spasm GERD, Cholecystitis, Pancreatitis, Zoster, this is not meant to be an all-inclusive list. EKG interpreted by me (3pts min.). @EKG: Sinus tachycardia rate of 101 moderate intraventricular conduction delay, WV interval 162, QRS duration 116, QTc 444 X-rays interpreted by me (1pt min.). @ -Chest x-ray negative for acute cardiopulmonary findings CT interpreted by me (1pt min.). @ -None done U/S interpreted by me (1pt. min.). @ -None done What testing was considered but not performed or refused? (CT, X-rays, U/S, labs)? Why? @ -None What meds were considered but not given or refused? Why? @ -None Did you discuss the management of the patient with other professionals (professionals i.e. Dr., PA, [employer], lab, RT, psych nurse, social staff worker, bandage winding machine operator, teacher, hospital admissions officer, case checker)? Give summary @ -No Was smoking cessation discussed for >3mins.? @ -No Was critical care preformed (if so, how long)? @ -No Were there social determinants of health that impacted care today? How? (Homelessness, low income, unemployed, alcoholism, drug addiction, transportation, low edu. Level, literacy, decrease access to med. care, assisted, rehab)? @ -No Was there de-escalation of care discussed even if they declined (Discuss DNR or withdrawal of care, Hospice)? DNR status @ -No What co-morbidities impacted this encounter? (DM, HTN, Smoking, COPD, CAD, Cancer, CVA, ARF, Chemo, Hep., AIDS, mental health diagnosis, sleep apnea, morbid obesity)? @ -None Was patient admitted / discharged? Hospital course, mention meds given and route, prescriptions, significant lab abnormalities, going to OR and other pertinent info. @ -[58-year-old male with acute on chronic pain chest pain. EKG sinus without ST segment elevation chest x-ray is negative, normal CBC, normal CMP, negative troponin. I do feel this patient is stable for discharge given the chronicity of his symptoms and should follow-up with his primary care provider. Undiagnosed new problem with uncertain prognosis? @ -No Drug Therapy requiring intensive monitoring for toxicity (Heparin, Nitro, Insulin, Cardizem)? @ -No Were any procedures done? @ -No Diagnosis/symptom? @Chest pain Acute, or Chronic, or Acute on Chronic? @ -Acute Uncomplicated (without systemic symptoms) or Complicated (systemic symptoms)? @ -Default Side effects of treatment? @ -No Exacerbation, Progression, or Severe Exacerbation? @ -No Poses a threat to life or bodily function? How? (Chest pain, USA, NH, pneumonia, PE, COPD, DKA, ARF, appy, cholecystitis, CVA, Diverticulitis, Homicidal, Suicidal, threat to staff... and all critical care pts) @Low risk at this time - Lab Data Result diagrams: 10/28/24 11:53 10/28/24 11:53 Lab Results 10/28/24 10/28/24 10/28/24 Range/Units 11:53 11:53 11:53 WBC 6.07 (4.50-10.00) 10*3/uL RBC 5.00 (4.40-5.60) 10*6/uL Hgb 14.6 (13.0-17.0) g/dL Hct 41.6 (39.6-50.0) % MCV 83.2 (80.0-97.0) fL MCH 29.2 (27.0-32.0) pg MCHC 35.1 (32.0-37.0) g/dL Plt Count 260 (140-440) 10*3/uL MPV 9.0 L (9.5-12.2) fL Immature Gran % (Auto) 0.5 % Neutrophils % 72.8 % Lymphocytes % 17.8 % Monocytes % 6.1 % Eosinophils % 2.3 % Basophils % 0.5 % Immature Gran # 0.03 (0.00-0.04) 10*3/uL Neutrophils # 4.42 (1.80-7.70) 10*3/uL Lymphocytes # 1.08 (0.90-5.00) 10*3/uL Monocytes # 0.37 (0.20-1.00) 10*3/uL Eosinophils # 0.14 (0.04-0.35) 10*3/uL Basophils # 0.03 (0.00-0.10) 10*3/uL Sodium 134 L (137-145) mmol/L Potassium 4.8 (3.5-5.1) mmol/L Chloride 103 (98-107) mmol/L Carbon Dioxide 19 L (22-30) mmol/L Anion Gap 12 mmol/L BUN 11 (9-20) mg/dL Creatinine 0.38 L (0.66-1.25) mg/dL Est GFR (CKD-EPI)AfAm >90 (>60 ml/min/1.73 sqM) Est GFR (CKD-EPI)NonAf >90 (>60 ml/min/1.73 sqM) Glucose 225 H (74-99) mg/dL Calcium 9.8 (8.4-10.2) mg/dL Magnesium 1.8 (1.6-2.3) mg/dL Total Bilirubin 1.1 (0.2-1.3) mg/dL AST 41 (17-59) U/L ALT 33 (4-49) U/L Alkaline Phosphatase 122 (38-126) U/L Troponin I <0.012 (0.000-0.034) ng/mL Total Protein 7.7 (6.3-8.2) g/dL Albumin 4.5 (3.5-5.0) g/dL Disposition Clinical Impression: Atypical chest pain Disposition: HOME SELF-CARE Condition: Fair Instructions (If sedation given, give patient instructions): Chest Pain (ED) Is patient prescribed a controlled substance at d/c from ED?: No Referrals: González Muñiz MD [Primary Care Provider] - 1-2 days Time of Disposition: 13:38
--- NOTE | 2024-10-28 11:44 | XR ---
EXAMINATION TYPE: XR chest 2V DATE OF EXAM: 10/28/2024 11:36 AM COMPARISON: Chest radiographs from 10/27/2024 TECHNIQUE: XR chest 2V Frontal and lateral views of the chest. CLINICAL INDICATION:Male, 58 years old with history of chest pain; FINDINGS: Lungs/Pleura: There is no evidence of pleural effusion, focal consolidation, or pneumothorax. Pulmonary vascularity: Unremarkable. Heart/mediastinum: Cardiomediastinal silhouette is unremarkable. Musculoskeletal: Multiple level degenerative disc disease changes seen throughout the spine. Multilev el cervical disc hardware. No acute osseous abnormality. IMPRESSION: No acute cardiopulmonary disease/process. [facility], , 10/28/2024 11:42 AM
[2024-10-28 12:27] LABS: Basophils # (A) 0.03 10*3/uL (0.00-0.10); Basophils % (A) 0.5 %; Eosinophils # (A) 0.14 10*3/uL (0.04-0.35); Eosinophils % (A) 2.3 %; HCT 41.6 % (39.6-50.0); HGB 14.6 g/dL (13.0-17.0); Lymphocytes # (A) 1.08 10*3/uL (0.90-5.00); Lymphocytes % (A) 17.8 %; MCH 29.2 pg (27.0-32.0); MCHC 35.1 g/dL (32.0-37.0); MCV 83.2 fL (80.0-97.0); Monocytes # (A) 0.37 10*3/uL (0.20-1.00); Monocytes % (A) 6.1 %; Neutrophils # (A) 4.42 10*3/uL (1.80-7.70); Neutrophils % (A) 72.8 %; Platelet Count 260 10*3/uL (140-440); RDW 13.5 % (11.5-14.5); WBC 6.07 10*3/uL (4.50-10.00)
[2024-10-28 12:52] VITALS: PULSE 98; TEMP 98.8
[2024-10-28 12:54] LABS: ALT 33 U/L (4-49); African American GFR (CKD) >90 (>60 ml/min/1.73 sqM); Anion Gap 12 mmol/L; Blood Urea Nitrogen 11 mg/dL (9-20); Calcium 9.8 mg/dL (8.4-10.2); Carbon Dioxide 19 mmol/L (22-30); Chloride 103 mmol/L (98-107); Glucose 225 mg/dL (74-99); Non-African American GFR(CKD) >90 (>60 ml/min/1.73 sqM); Sodium 134 mmol/L (137-145)
[2024-10-28 12:56] LABS: AST 41 U/L (17-59); Albumin 4.5 g/dL (3.5-5.0); Alkaline Phosphatase 122 U/L (38-126); Magnesium 1.8 mg/dL (1.6-2.3); Potassium 4.8 mmol/L (3.5-5.1); Total Bilirubin 1.1 mg/dL (0.2-1.3); Total Protein 7.7 g/dL (6.3-8.2)
[2024-10-28 13:47] VITALS: BP 169/101; RESP 19
== END 2024-10-28 13:53 | disposition home or self-care (01) ==
LOC: EC 10:42
DX: G89.29 Other chronic pain (principal); R07.89 Other chest pain; R00.0 Tachycardia, unspecified; Z88.6 Allergy status to analgesic agent; Z88.8 Allergy status to other drugs, medicaments and biological substances
CPT/HCPCS: 36415; 71046; 80053; 83735; 84484; 85025; 93005; 99285

== ENCOUNTER 2024-10-28 18:59 | Emergency (ER) | payer OTHER ==
[2024-10-28 19:12] VITALS: TEMP 98.2
--- NOTE | 2024-10-28 19:26 | ED ---
Recheck [facility] - General Chief Complaint: Chest Pain Stated Complaint: Chest Pain Source: patient, RN notes reviewed, old records reviewed Mode of arrival: ambulatory Limitations: no limitations - History of Present Illness Initial Comments: This is a 58-year-old male to the ER for evaluation of chest pain back pain chronic pain. Patient is requesting pain medication MD Complaint: medication refill request -: days(s) Returns Today for: persistent/worsening pain related to initial visit Symptoms Since Prior Visit: worsening pain Context: ran out of medication Associated Symptoms: none Treatments Prior to Arrival: Given Pain Meds on - Related Data Home Medications Medication Instructions Recorded Confirmed Insulin Lispro [humaLOG Kwikpen] See Protocol SQ ACHS 06/16/21 06/14/24 Insulin Glargine,Hum.rec.anlog 50 units SQ DAILY 10/20/22 06/14/24 [Lantus Solostar Pen] Gabapentin 600 mg PO TID 03/25/24 06/14/24 Insulin Lispro [humaLOG Kwikpen] 10 unit SQ TID-W/MEALS 03/25/24 06/14/24 methocarbamoL [Robaxin-750] 750 mg PO TID 03/25/24 06/14/24 oxyCODONE-APAP 5-325MG [Percocet 1 tab PO QID 04/29/24 06/14/24 5-325 mg] Isosorbide Mononitrate ER [Imdur] 60 mg PO DAILY 06/14/24 06/14/24 Nitroglycerin Sl Tabs [Nitrostat] 0.4 mg SUBLINGUAL Q5M PRN 06/14/24 06/14/24 Pantoprazole [Protonix] 40 mg PO BID 06/14/24 06/14/24 carvediloL [Coreg] 25 mg PO BID 06/14/24 06/14/24 dilTIAZem HCL 30 mg PO DAILY 06/14/24 06/14/24 Allergies Allergy/AdvReac Type Severity Reaction Status Date / Time doxycycline Allergy Swelling Verified 10/28/24 19:12 ketorolac tromethamine Allergy Rash/Hives Verified 10/28/24 19:12 [From Toradol] morphine Allergy Rash/Hives Verified 10/28/24 19:12 metoclopramide HCl AdvReac Dystonic Verified 10/28/24 19:12 [From Reglan] Reaction prochlorperazine edisylate AdvReac Dystonic Verified 10/28/24 19:12 [From Compazine] Reaction prochlorperazine maleate AdvReac Dystonic Verified 10/28/24 19:12 [From Compazine] Reaction Review of Systems ROS Statement: Those systems with pertinent positive or pertinent negative responses have been documented in the HPI. ROS Other: All systems not noted in ROS Statement are negative. Past Medical History Past Medical History: Asthma, Coronary Artery Disease (CAD), Cancer, Chest Pain / Angina, Diabetes Mellitus, GERD/Reflux, GI Bleed, Hyperlipidemia, Hypertension, Myocardial Infarction (NC), Mitral Valve Prolapse (MVP), Pulmonary Embolus (PE), Sleep Apnea/CPAP/BIPAP Additional Past Medical History / Comment(s): Asthmatic bronchitis-chronic, IDDM type II, neuropathy bilateral feet, lower and upper GI bleeds, PUD, diverticulitis, colectomy d/t benign mass/intusseption, BPH, renal cysts, nephrolithiais, UTI with sepsis, chronic back pain 2ndary to herniated lumbar discs/sciatica, JARED does not use his Cpap, MVP, murmur, chronic dysphagia, colon cancer Last Myocardial Infarction Date:: 2011 History of Any Multi-Drug Resistant Organisms: C-DIFF, MRSA Date of last positivie culture/infection: 2015 MDRO Source:: left axilla Past Surgical History: Appendectomy, Back Surgery, Cholecystectomy, Heart Catheterization, Hernia Repair, Orthopedic Surgery Additional Past Surgical History / Comment(s): Lumbar decompression/ fusion/laminectomy, spinal stimulator, T lift procedure, L inguinal hernia repair, multiple ESWLs/stents/double J caths, colonoscopy, 02/2020 colectomy, EGDs for food obstructions and dilations, NERVE STIMULATOR Past Anesthesia/Blood Transfusion Reactions: No Reported Reaction Past Psychological History: No Psychological Hx Reported Smoking Status: Never smoker Past Alcohol Use History: None Reported Past Drug Use History: None Reported - Past Family History Father Family Medical History: Chest Pain / Angina Additional Family Medical History / Comment(s): "lung problems" Mother Family Medical History: Blood Disorder, Cancer, Chest Pain / Angina, Congestive Heart Failure (CHF), Osteoarthritis (OA), Thyroid Disorder Additional Family Medical History / Comment(s): "director external communications cancer" blood clots General Exam Limitations: no limitations General appearance: alert, in no apparent distress Head exam: Present: atraumatic, normocephalic, normal inspection Eye exam: Present: normal appearance, PERRL, EOMI. Absent: scleral icterus, conjunctival injection, periorbital swelling ENT exam: Present: normal exam, mucous membranes moist Neck exam: Present: normal inspection. Absent: tenderness, meningismus, lymphadenopathy Respiratory exam: Present: normal lung sounds bilaterally. Absent: respiratory distress, wheezes, rales, rhonchi, stridor Cardiovascular Exam: Present: regular rate, normal rhythm, normal heart sounds. Absent: systolic murmur, diastolic murmur, rubs, gallop, clicks GI/Abdominal exam: Present: soft, normal bowel sounds. Absent: distended, tenderness, guarding, rebound, rigid Extremities exam: Present: normal inspection, full ROM, normal capillary refill. Absent: tenderness, pedal edema, joint swelling, calf tenderness Back exam: Present: normal inspection Neurological exam: Present: alert, oriented X3, CN II-XII intact Psychiatric exam: Present: normal affect, normal mood Skin exam: Present: warm, dry, intact, normal color. Absent: rash Course Vital Signs 10/28/24 10/28/24 19:09 19:32 Temperature 98.2 F Pulse Rate 105 H 107 H Respiratory 18 20 Rate Blood Pressure 143/95 194/109 O2 Sat by Pulse 96 96 Oximetry - Reevaluation(s) Reevaluation #1: 10/28/24 21:40 Medical records reviewed ER visit today underwent cardiac evaluation normal troponin normal EKG Reevaluation #2: 10/28/24 21:40 Patient symptoms improved Reevaluation #3: 10/28/24 21:40 Patient informed of results questions answered Reevaluation #4: Was pt. sent in by a medical professional or institution (, PA, LEAD VULCANIZING OPERATOR, urgent care, hospital, or group home...) When possible be specific @ -no Did you speak to anyone other than the patient for history (EMS, parent, family, police, friend...)? What history was obtained from this source @ -no Did you review nursing and triage notes (agree or disagree)? Why? @ -agree Are old charts reviewed (outside hosp., previous admission, EMS record, old EKG, old radiological studies, urgent care reports/EKG's, group home records)? Re port findings @ -yes Differential Diagnosis (chest pain, altered mental status, abdominal pain women, abdominal pain men, vaginal bleeding, weakness, fever, dyspnea, syncope, headache, dizziness, GI bleed, back pain, seizure, CVA, palpatations, mental health, musculoskeletal)? @ -prior EKG interpreted by me (3pts min.). @ -yes X-rays interpreted by me (1pt min.). @ -yes negative for acute disease CT interpreted by me (1pt min.). @ -no U/S interpreted by me (1pt. min.). @ -no What testing was considered but not performed or refused? (CT, X-rays, U/S, labs)? Why? @ -none What meds were considered but not given or refused? Why? @ -none Did you discuss the management of the patient with other professionals (professionals i.e. , PA, LEAD VULCANIZING OPERATOR, lab, RT, psych nurse, director social service, financial administrative assistant, teacher, foreign policy officer, rehabilitation caseworker)? Give summary @ -no Was smoking cessation discussed for >3mins.? @ -no Was critical care preformed (if so, how long)? @ -no Were there social determinants of health that impacted care today? How? (Homelessness, low income, unemployed, alcoholism, drug addiction, transportation, low edu. Level, literacy, decrease access to med. care, longterm, rehab)? @ -none Was there de-escalation of care discussed even if they declined (Discuss DNR or withdrawal of care, Hospice)? DNR status @ -no What co-morbidities impacted this encounter? (DM, HTN, Smoking, COPD, CAD, Cancer, CVA, ARF, Chemo, Hep., AIDS, mental health diagnosis, sleep apnea, morbid obesity)? @ -none Was patient admitted / discharged? Hospital course, mention meds given and route, prescriptions, significant lab abnormalities, going to OR and other pertinent info. @ - Undiagnosed new problem with uncertain prognosis? @ -no Drug Therapy requiring intensive monitoring for toxicity (Heparin, Nitro, Insulin, Cardizem)? @ -no Were any procedures done? @ -no Diagnosis/symptom? @ - Acute, or Chronic, or Acute on Chronic? @ -Acute Uncomplicated (without systemic symptoms) or Complicated (systemic symptoms)? @ -Complicated Side effects of treatment? @ -no Exacerbation, Progression, or Severe Exacerbation? @ -exacerbation Poses a threat to life or bodily function? How? (Chest pain, USA, NC, pneumonia, PE, COPD, DKA, ARF, appy, cholecystitis, CVA, Diverticulitis, Homicidal, Suicidal, threat to staff... and all critical care pts) @ -yes Reevaluation #5: Differential Chest Pain: Stable Angina, Unstable Angina, STEMI, NSTEMI Aortic Dissection, Pneumothorax, Musculoskeletal, Esophageal Spasm GERD, Cholecystitis, Pancreatitis, Zoster, this is not meant to be an all-inclusive list. Medical Decision Making - Medical Decision Making 58 male can be discharged home chronic pain given pain control - EKG Data -: EKG Interpreted by Me (EKG sinus 107 MN 152 QRS 117 QTc 438) Disposition Clinical Impression: Chronic pain Disposition: HOME SELF-CARE Condition: Fair Instructions (If sedation given, give patient instructions): Chest Pain (ED) Is patient prescribed a controlled substance at d/c from ED?: No Referrals: None,Stated [REFERRING] - 1-2 days Time of Disposition: 19:30
[2024-10-28 19:32] VITALS: BP 194/109; PULSE 107; RESP 20
[2024-10-28] MEDS: HYDROmorphone 1 MG/ML 1 ML SYRINGE IM STA (19:36)
[2024-10-28] MEDS: ACET/COD 300 MG/30 MG STARTER PACK 6 TAB BTL PO STA (19:39)
== END 2024-10-28 19:42 | disposition home or self-care (01) ==
LOC: EC 18:59
DX: Z76.0 Encounter for issue of repeat prescription (principal); G89.29 Other chronic pain; Z88.8 Allergy status to other drugs, medicaments and biological substances
CPT/HCPCS: 93005; 99285; 96372; J1171

== ENCOUNTER 2024-10-30 14:09 | Emergency (ER) | payer OTHER ==
[2024-10-30 14:25] VITALS: RESP 20
--- NOTE | 2024-10-30 16:15 | ED ---
Back Pain HPI - General Chief Complaint: Back Pain/Injury Stated Complaint: back pain Time Seen by Provider: 10/30/24 16:11 Source: patient, RN notes reviewed Limitations: no limitations - History of Present Illness Initial Comments: 58-year-old male presenting for back pain. States 1 week ago he fell approximately 4 feet off the back of a truck and landed on his back. States he has been seen in the ER for this where x-rays returned negative. He was also admitted to [facility] for an MRI which did not show any acute injuries. [facility] he continues to have back pain and has a follow-up with his spine physician on Monday and is requesting pain control. He takes Percocet, muscle relaxers, and gabapentin at home. Denies bowel or bladder incontinence. Denies numbness, tin gling, weakness of the bilateral lower extremities. - Related Data Home Medications Medication Instructions Recorded Confirmed Insulin Lispro [humaLOG Kwikpen] See Protocol SQ ACHS 06/16/21 06/14/24 Insulin Glargine,Hum.rec.anlog 50 units SQ DAILY 10/20/22 06/14/24 [Lantus Solostar Pen] Gabapentin 600 mg PO TID 03/25/24 06/14/24 Insulin Lispro [humaLOG Kwikpen] 10 unit SQ TID-W/MEALS 03/25/24 06/14/24 methocarbamoL [Robaxin-750] 750 mg PO TID 03/25/24 06/14/24 oxyCODONE-APAP 5-325MG [Percocet 1 tab PO QID 04/29/24 06/14/24 5-325 mg] Isosorbide Mononitrate ER [Imdur] 60 mg PO DAILY 06/14/24 06/14/24 Nitroglycerin Sl Tabs [Nitrostat] 0.4 mg SUBLINGUAL Q5M PRN 06/14/24 06/14/24 Pantoprazole [Protonix] 40 mg PO BID 06/14/24 06/14/24 carvediloL [Coreg] 25 mg PO BID 06/14/24 06/14/24 dilTIAZem HCL 30 mg PO DAILY 06/14/24 06/14/24 Allergies Allergy/AdvReac Type Severity Reaction Status Date / Time doxycycline Allergy Swelling Verified 10/30/24 14:25 ketorolac tromethamine Allergy Rash/Hives Verified 10/30/24 14:25 [From Toradol] morphine Allergy Rash/Hives Verified 10/30/24 14:25 metoclopramide HCl AdvReac Dystonic Verified 10/30/24 14:25 [From Reglan] Reaction prochlorperazine edisylate AdvReac Dystonic Verified 10/30/24 14:25 [From Compazine] Reaction prochlorperazine maleate AdvReac Dystonic Verified 10/30/24 14:25 [From Compazine] Reaction Review of Systems ROS Statement: Those systems with pertinent positive or pertinent negative responses have been documented in the HPI. ROS Other: All systems not noted in ROS Statement are negative. Past Medical History Past Medical History: Asthma, Coronary Artery Disease (CAD), Cancer, Chest Pain / Angina, Diabetes Mellitus, GERD/Reflux, GI Bleed, Hyperlipidemia, Hypertension, Myocardial Infarction ([place]), Mitral Valve Prolapse (MVP), Pulmonary Embolus (PE), Sleep Apnea/CPAP/BIPAP Additional Past Medical History / Comment(s): Asthmatic bronchitis-chronic, IDDM type II, neuropathy bilateral feet, lower and upper GI bleeds, PUD, diverticulitis, colectomy d/t benign mass/intusseption, BPH, renal cysts, nephrolithiais, UTI with sepsis, chronic back pain 2ndary to herniated lumbar discs/sciatica, JARED does not use his Cpap, MVP, murmur, chronic dysphagia, colon cancer Last Myocardial Infarction Date:: 2011 History of Any Multi-Drug Resistant Organisms: C-DIFF, MRSA Date of last positivie culture/infection: 2015 MDRO Source:: left axilla Past Surgical History: Appendectomy, Back Surgery, Cholecystectomy, Heart Catheterization, Hernia Repair, Orthopedic Surgery Additional Past Surgical History / Comment(s): Lumbar decompression/fusion/laminectomy, spinal stimulator, T lift procedure, L inguinal hernia repair, multiple ESWLs/stents/double J caths, colonoscopy, 02/2020 colectomy, EGDs for food obstructions and dilations, NERVE STIMULATOR Past Anesthesia/Blood Transfusion Reactions: No Reported Reaction Past Psychological History: No Psychological Hx Reported Smoking Status: Never smoker Past Alcohol Use History: None Reported Past Drug Use History: None Reported - Past Family History Father Family Medical History: Chest Pain / Angina Additional Family Medical History / Comment(s): "lung problems" Mother Family Medical History: Blood Disorder, Cancer, Chest Pain / Angina, Congestive Heart Failure (CHF), Osteoarthritis (OA), Thyroid Disorder Additional Family Medical History / Comment(s): "chainstitch elastic attacher cancer" blood clots General Exam Limitations: no limitations General appearance: alert, in no apparent distress Head exam: Present: atraumatic, normocephalic, normal inspection Eye exam: Present: normal appearance, PERRL, EOMI. Absent: scleral icterus, conjunctival injection, periorbital swelling Neck exam: Present: normal inspection. Absent: tenderness, meningismus, lymphadenopathy Respiratory exam: Present: normal lung sounds bilaterally. Absent: respiratory distress, wheezes, rales, rhonchi, stridor Cardiovascular Exam: Present: regular rate, normal rhythm, normal heart sounds. Absent: systolic murmur, diastolic murmur, rubs, gallop, clicks Back exam: Present: normal inspection, full ROM, paraspinal tenderness, other (Full strength and range of motion of bilateral hips, no saddle anesthesia, full sensation and DP pulses bilaterally). Absent: tenderness, CVA tenderness (R), CVA tenderness (L) Neurological exam: Present: alert, oriented X3 Psychiatric exam: Present: normal affect, normal mood Skin exam: Present: warm, dry, intact, normal color. Absent: rash Course Vital Signs 10/30/24 14:22 Temperature 98.1 F Pulse Rate 120 H Respiratory 20 Rate Blood Pressure 155/90 O2 Sat by Pulse 99 Oximetry Medical Decision Making - Medical Decision Making Was pt. sent in by a medical professional or institution (, PA, GUEST RELATIONS MANAGER, urgent care, hospital, or fci...) When possible be specific @ -No Did you speak to anyone other than the patient for history (EMS, parent, family, police, friend...)? What history was obtained from this source @ -No Did you review nursing and triage notes (agree or disagree)? Why? @ -I reviewed and agree with nursing and triage notes Were old charts reviewed (outside hosp., previous admission, EMS record, old EKG, old radiological studies, urgent care reports/EKG's, fci records)? Report findings @ -Previous ER visits reviewed including x-rays of thoracic and lumbar spine Differential Diagnosis (chest pain, altered mental status, abdominal pain women, abdominal pain men, vaginal bleeding, weakness, fever, dyspnea, syncope, headache, dizziness, GI bleed, back pain, seizure, CVA, palpatations, mental health, musculoskeletal)? @ -Differential Back Pain: Strain, zoster, cauda equina syndrome, epidural abscess, vertebral osteomyelitis, discitis, fracture, subluxation, disc herniation, DJD, spinal stenosis, dissection, AAA, pancreatitis, peptic ulcer disease, pyelonephritis, kidney stone, this is not meant to be an all-inclusive list. EKG interpreted by me (3pts min.). @ -None X-rays interpreted by me (1pt min.). @ -None done CT interpreted by me (1pt min.). @ -None done U/S interpreted by me (1pt. min.). @ -None done What testing was considered but not performed or refused? (CT, X-rays, U/S, labs)? Why? @ -None What meds were considered but not given or refused? Why? @ -None Did you discuss the management of the patient with other professionals (johan giles i.e. , PA, GUEST RELATIONS MANAGER, lab, RT, psych nurse, social media marketing manager, patent prosecution paralegal, teacher, mobile patrol officer, insurance case manager)? Give summary @ -No Was smoking cessation discussed for >3mins.? @ -No Was critical care preformed (if so, how long)? @ -No Were there social determinants of health that impacted care today? How? (Homelessness, low income, unemployed, alcoholism, drug addiction, transportation, low edu. Level, literacy, decrease access to med. care, retirement, rehab)? @ -No Was there de-escalation of care discussed even if they declined (Discuss DNR or withdrawal of care, Hospice)? DNR status @ -No What co-morbidities impacted this encounter? (DM, HTN, Smoking, COPD, CAD, Cancer, CVA, ARF, Chemo, Hep., AIDS, mental health diagnosis, sleep apnea, morbid obesity)? @ -None Was patient admitted / discharged? Hospital course, mention meds given and route, prescriptions, significant lab abnormalities, going to OR and other pertinent info. @ -Discharge. 58-year-old male well-known to ER presenting for back pain. States he had a fall 1 week ago and has had x-rays and MRI at [facility] which returned negative for acute injury. He is requesting pain control as his follow-up appointment with the spine doctor is in 2 days. Neurovascularly intact. No red flag symptoms. Provided with analgesics and reports significant improvement of symptoms. Appropriate return precautions and follow-up care dis cussed. Case was discussed with my ED attending Dr. Gray Undiagnosed new problem with uncertain prognosis? @ -No Drug Therapy requiring intensive monitoring for toxicity (Heparin, Nitro, Insulin, Cardizem)? @ -[No] Were any procedures donNo -[No] Diagnosis/symptom? @ -ANo on chronic back pain Acute, or Chronic, or Acute on Chronic? @ -Acute on chronic Uncomplicated (without systemic symptoms) or Complicated (systemic symptoms)? @ -Uncomplicated Side effects of treatment? @ -[No] Exacerbation, ProgressiNoor Severe Exacerbation? @ -[No] Poses a threat to life Noodily function? How? (Chest pain, [place], [place], pneumonia, PE, COPD, DKA, ARF, appy, cholecystitis, CVA, Diverticulitis, Homicidal, Suicidal, threat to staff... and all critical care pts) @ -[No] Disposition Clinical Impression: Acute on chronic back pain Disposition: HOME SELF-CARE Additional Instructions: Follow-up for your appointment with your spine doctor in 2 days. Please return to the Emergency Department if symptoms worsen or any other concerns. Is patient prescribed a controlled substance at d/c from ED?: No Referrals: González Muñiz MD [Primary Care Provider] - 1-2 days Time of Disposition: 16:47
[2024-10-30] MEDS: ORPHENADRINE 30 MG/ML 2 ML VIAL IM STA (16:20)
[2024-10-30] MEDS: LIDOCAINE 4% PATCH TOPICAL ONE (16:21)
[2024-10-30] MEDS: HYDROmorphone 1 MG/ML 1 ML SYRINGE IVP STA (16:24)
[2024-10-30] MEDS: HYDROmorphone 1 MG/ML 1 ML SYRINGE IM STA (16:25)
[2024-10-30 17:16] VITALS: BP 143/90; PULSE 109; TEMP 98.6
== END 2024-10-30 17:19 | disposition home or self-care (01) ==
LOC: EC 14:09
DX: G89.29 Other chronic pain (principal); M54.9 Dorsalgia, unspecified; Z88.8 Allergy status to other drugs, medicaments and biological substances; W17.89XA Other fall from one level to another, initial encounter
CPT/HCPCS: 99283; 96372 ×2; J2360; J1171

== ENCOUNTER 2024-10-31 03:00 | Observation (INO) | payer OTHER ==
--- NOTE | 2024-10-31 03:34 | ED ---
General Adult HPI - General Chief complaint: GI Bleed Stated complaint: Abd pain Time Seen by Provider: 10/31/24 03:03 Source: patient Mode of arrival: EMS - History of Present Illness Initial comments: Patient is a 58-year-old gentleman past medical historyHistory CAD, colon canc er, diabetes, hyperlipidemia, hypertension, chronic pain, prior PE on Eliquis presenting for abdominal pain. States it started 6-hour prior to arrival described as burning, located in the periumbilical region/suprapubic region and radiates towards the right flank. States he has had 3 episodes of bloody emesis describing "chunks" of blood. He states prior to arrival he had a stool that was streaked with blood so decided to come to the emergency department. Prior abdominal surgeries include prior cholecystectomy and appendectomy. Denies fevers or chills, lightheadedness or dizziness, shortness of breath. States he has some pain radiating to the epigastrium and towards his back but did not otherwise denies chest pain. No lower extremity swelling. Is in remission from colon cancer x 3 years. Denies dysuria or hematuria. Has no numbness or weakness in his legs. - Related Data Home Medications Medication Instructions Recorded Confirmed Insulin Lispro [humaLOG Kwikpen] See Protocol SQ ACHS 06/16/21 10/31/24 Insulin Glargine,Hum.rec.anlog 34 units SQ DAILY 10/20/22 10/31/24 [Lantus Solostar Pen] Gabapentin 600 mg PO TID 03/25/24 10/31/24 Insulin Lispro [humaLOG Kwikpen] 10 unit SQ TID-W/MEALS 03/25/24 10/31/24 methocarbamoL [Robaxin-750] 750 mg PO TID 03/25/24 10/31/24 oxyCODONE-APAP 5-325MG [Percocet 1 tab PO QID 04/29/24 10/31/24 5-325 mg] Nitroglycerin Sl Tabs [Nitrostat] 0.4 mg SUBLINGUAL Q5M PRN 06/14/24 10/31/24 Apixaban [Eliquis] 5 mg PO BID 10/31/24 10/31/24 Atorvastatin [Lipitor] 20 mg PO DAILY 10/31/24 10/31/24 Insulin Glargine,Hum.rec.anlog 34 units SQ HS PRN 10/31/24 10/31/24 [Lantus Solostar Pen] Isosorbide Mononitrate ER [Imdur] 30 mg PO DAILY 10/31/24 10/31/24 Losartan [Cozaar] 50 mg PO DAILY 10/31/24 10/31/24 Omeprazole [PriLOSEC] 40 mg PO DAILY 10/31/24 10/31/24 amLODIPine [Norvasc] 5 mg PO DAILY 10/31/24 10/31/24 carvediloL [Coreg] 6.25 mg PO BID 10/31/24 10/31/24 Allergies Allergy/AdvReac Type Severity Reaction Status Date / Time doxycycline Allergy Swelling Verified 10/31/24 07:34 ketorolac tromethamine Allergy Rash/Hives Verified 10/31/24 07:34 [From Toradol] morphine Allergy Rash/Hives Verified 10/31/24 07:34 metoclopramide HCl AdvReac Dystonic Verified 10/31/24 07:34 [From Reglan] Reaction prochlorperazine edisylate AdvReac Dystonic Verified 10/31/24 07:34 [From Compazine] Reaction prochlorperazine maleate AdvReac Dystonic Verified 10/31/24 07:34 [From Compazine] Reaction Review of Systems ROS Statement: Those systems with pertinent positive or pertinent negative responses have been documented in the HPI. ROS Other: All systems not noted in ROS Statement are negative. Past Medical History Past Medical History: Asthma, Coronary Artery Disease (CAD), Cancer, Chest Pain / Angina, Diabetes Mellitus, GERD/Reflux, GI Bleed, Hyperlipidemia, Hypertension, Myocardial Infarction (VT), Mitral Valve Prolapse (MVP), Pulmonary Embolus (PE), Sleep Apnea/CPAP/BIPAP Additional Past Medical History / Comment(s): Asthmatic bronchitis-chronic, IDDM type II, neuropathy bilateral feet, lower and upper GI bleeds, PUD, diverticulitis, colectomy d/t benign mass/intusseption, BPH, renal cysts, nephrolithiais, UTI with sepsis, chronic back pain 2ndary to herniated lumbar discs/sciatica, JARED does not use his Cpap, MVP, murmur, chronic dysphagia, colon cancer Last Myocardial Infarction Date:: 2011 History of Any Multi-Drug Resistant Organisms: C-DIFF, MRSA Date of last positivie culture/infection: 2015 MDRO Source:: left axilla Past Surgical History: Appendectomy, Back Surgery, Cholecystectomy, Heart Catheterization, Hernia Repair, Orthopedic Surgery Additional Past Surgical History / Comment(s): Lumbar decompression/fusion/laminectomy, spinal stimulator, T lift procedure, L inguinal hernia repair, multiple ESWLs/stents/double J caths, colonoscopy, 02/2020 colectomy, EGDs for food obstructions and dilations, NERVE STIMULATOR Past Anesthesia/Blood Transfusion Reactions: No Reported Reaction Past Psychological History: No Psychological Hx Reported Smoking Status: Never smoker Past Alcohol Use History: None Reported Past Drug Use History: None Reported - Past Family History Father Family Medical History: Chest Pain / Angina Additional Family Medical History / Comment(s): "lung problems" Mother Family Medical History: Blood Disorder, Cancer, Chest Pain / Angina, Congestive Heart Failure (CHF), Osteoarthritis (OA), Thyroid Disorder Additional Family Medical History / Comment(s): "life skills consultant cancer" blood clots General Exam - General Exam Comments Initial Comments: PE: CONSTITUTIONAL: No apparent distress, well appearing, actively dry heaving SKIN: Warm, dry, no jaundice, hives or petechiae, no pallor EYES: Pupils are equally round, extraocular movements intact without nystagmus, clear conjunctiva, non-icteric sclera HENT: Normocephalic, atraumatic, moist mucus membranes, oropharynx clear without exudates NECK: , Full range of motion, normal appearance PULMONARY: Clear to auscultation without wheezes, rhonchi, or rales, normal excursion, no accessory muscle use and no stridor CARDIOVASCULAR: Regular rate, rhythm, normal S1 and S2. No appreciated murmurs, rubs or gallops. Strong radial pulses with intact distal perfusion. No lower extremity edema GASTROINTESTINAL: Soft, active bowel sounds throughout, non-tender, non- distended, no palpable masses, no rebound or guarding. No hepatosplenomegaly, no CVA tenderness palpation GENITOURINARY: Rectal exam was performed with ROMA Solis at bedside, shows large amount of very light brown stool, no hemorrhoids, no palpable masses, no melena or visible blood MUSCULOSKELETAL: Extremities have no gross deformity, no edema, redness, or swelling. NEUROLOGIC:_a/o x 3, GCS 15, normal mentation and speech. Moves all extremities x 4 without motor or sensory deficit PSYCHIATRIC:_normal mood and affect, thought process is clear and linear Course Vital Signs 10/31/24 10/31/24 10/31/24 03:03 04:04 05:56 Temperature 98.4 F 98.5 F Pulse Rate 125 H 108 H 102 H Pulse Rate [ Pulse Oximetery ] Respiratory 24 22 18 Rate Blood Pressure 190/119 153/109 163/103 O2 Sat by Pulse 100 98 99 Oximetry 10/31/24 10/31/24 10/31/24 06:58 08:00 08:25 Temperature Pulse Rate 99 88 Pulse Rate [ 90 Pulse Oximetery ] Respiratory 18 20 20 Rate Blood Pressure 146/96 155/93 O2 Sat by Pulse 98 96 Oximetry EKG Findings - EKG Comments: EKG Findings:: Sinus tachycardia, rate 120 bpm MN interval 149 ms QT/QTc 353/424 ms, left axis deviation, artifact present limiting interpretation no no acute ST elevations or depressions, no arrhythmia Medical Decision Making - Medical Decision Making Was pt. sent in by a medical professional or institution (, PA, PROFESSOR OF ANTHROPOLOGY, urgent care, hospital, or fdc...) When possible be specific @ -No Did you speak to anyone other than the patient for history (EMS, parent, family, police, friend...)? What history was obtained from this source @ -No Did you review nursing and triage notes (agree or disagree)? Why? @ -I reviewed and agree with nursing and triage notes Were old charts reviewed (outside hosp., previous admission, EMS record, old EKG, old radiological studies, urgent care reports/EKG's, fdc records)? Report findings @ -Medical records reviewed-patient is well-known to this emergency department, he has had 4 visits in the last 4 days for various complaints of chronic pain Differential Diagnosis (chest pain, altered mental status, abdominal pain women, abdominal pain men, vaginal bleeding, weakness, fever, dyspnea, syncope, headache, dizziness, GI bleed, back pain, seizure, CVA, palpatations, mental health, musculoskeletal)? @Differential GI Bleed: Esophageal varices, aortoenteric fistula, Jessica-Wade, gastritis, peptic ulcer disease, diverticulosis, inflammatory bowel disease, hemorrhoids, fissure, colitis, malignancy, Meckel's diverticulum, this is not meant to be an all- inclusive list. EKG interpreted by me (3pts min.). @ -As above X-rays interpreted by me (1pt min.). Personally reviewed chest x-ray, I see no evidence of cardiomegaly, consolidations or pneumothorax CT interpreted by me (1pt min.). Personally reviewed CT scan I see no evidence of active contrast extravasation or hemorrhage, no abscess or obstruction U/S interpreted by me (1pt. min.). @ -None done What testing was considered but not performed or refused? (CT, X-rays, U/S, labs)? Why? @ -None What meds were considered but not given or refused? Why? Reversal of Eliquis was considered however at this time the emesis on patient's chart does not have blood in it, his stool does not appear bloody or melanotic, vital signs are stable we will hold off on anticoagulant reversal Did you discuss the management of the patient with other professionals (professionals i.e. , PA, PROFESSOR OF ANTHROPOLOGY, lab, RT, psych nurse, social media content specialist, commutator inspector, teacher, transit authority police officer, case finisher)? Give summary @ -No Was smoking cessation discussed for >3mins.? @ -No Was critical care preformed (if so, how long)? Yes, 35 minutes Were there social determinants of health that impacted care today? How? (Homelessness, low income, unemployed, alcoholism, drug addiction, transportation, low edu. Level, literacy, decrease access to med. care, half-way, rehab)? @ -No Was there de-escalation of care discussed even if they declined (Discuss DNR or withdrawal of care, Hospice)? @ -No What co-morbidities impacted this encounter? (DM, HTN, Smoking, COPD, CAD, Cancer, CVA, ARF, Chemo, Hep., AIDS, mental health diagnosis, sleep apnea, morbid obesity)? CAD, cancer, diabetes, GERD, prior GI bleed, hyperlipidemia, hypertension, prior VT, PE on Eliquis Was patient admitted / discharged? Hospital course, mention meds given and route, prescriptions, significant lab abnormalities, going to OR and other pertinent info. @This is a 58-year-old gentleman, well-known to this emergency department presenting today for abdominal pain nausea and endorses 3 episodes of hematemesis. On assessment patient is hypertensive and tachycardic. I suspect hypertension is secondary to pain, will treat patient's blood pressure with antihypertensive if does not come down with pain control. Rectal exam shows no hemorrhoids, no signs of melena or hematochezia, light brown stool. Abdomen is soft and nontender, no CVA tenderness. Pt's shirt has emesis on it that is light orange but nonbloody. Plan for GI bleed workup, including CT abdomen pelvis, Protonix, IV fluids, pain control, will obtain troponin and chest x-ray as well due to epigastric pain. Patient's hemoglobin is actually increased from 2 days ago, 16.6 today, on was 14.6, BUN is 14, sodium 133, lactic of 2.5, glucose 282, LFTs within normal limits, alk phos 133 troponin undetectable lipase 76, stool occult blood negative. Patient request additional pain meds which were ordered for him. I personally reviewed CT scan I see no evidence of free fluid or free air, no evidence of active hemorrhage. CT read by radiologist as enteritis versus ileus. Of note patient had positive blood acetone, anion gap of 15 and with hyperglycemia, does meet criteria for DKA. He was started on insulin infusion though insulin bolus will be held due to blood glucose only 243. Updated pt to findings and plan for admission due to DKA. He is agreeable with POC. Of note, pt had 2 episodes of emesis here, states first one had blood in it. When I looked at indicated emesis back, there is no blood, there are few small flecks of orange foot particles and emesis is otherwise clear and yellow. Of note, due to only marginally elevated anion gap of 15, pH 7.40 with VBG pCO2 31, bicarb of 19 the decision was made to discontinue insulin infusion and initiate patient's home insulin dosing to gradually improve metabolic dera ngements. Patient was admitted to Dr. Gomez in stable condition. Undiagnosed new problem with uncertain prognosis? @ -No Drug Therapy requiring intensive monitoring for toxicity (Heparin, Nitro, In sulin, Cardizem)? @ -No Were any procedures done? @ -No Diagnosis/symptom? DKA, enteritis, abdominal pain Acute, or Chronic, or Acute on Chronic? acute Uncomplicated (without systemic symptoms) or Complicated (systemic symptoms)? complicated Side effects of treatment? @ -No Exacerbation, Progression, or Severe Exacerbation? @ -No Poses a threat to life or bodily function? How? (Chest pain, USA, VT, pneumonia, PE, COPD, DKA, ARF, appy, cholecystitis, CVA, Diverticulitis, Homicidal, Suicidal, threat to staff... and all critical care pts) @Yes, if left untreated could progress to severe dehydration, severe electrolyte derangement, arrhythmia and - Lab Data Result diagrams: 11/02/24 03:07 11/02/24 03:07 Lab Results 10/31/24 10/31/24 10/31/24 Range/Units 03:34 03:34 03:34 WBC 9.92 (4.50-10.00) 10*3/uL RBC 5.71 H (4.40-5.60) 10*6/uL Hgb 16.6 (13.0-17.0) g/dL Hct 47.7 (39.6-50.0) % MCV 83.5 (80.0-97.0) fL MCH 29.1 (27.0-32.0) pg MCHC 34.8 (32.0-37.0) g/dL Plt Count 313 (140-440) 10*3/uL MPV 8.9 L (9.5-12.2) fL Immature Gran % (Auto) 0.3 % Neutrophils % 67.8 % Lymphocytes % 19.4 % Monocytes % 7.9 % Eosinophils % 3.8 % Basophils % 0.8 % Immature Gran # 0.03 (0.00-0.04) 10*3/uL Neutrophils # 6.73 (1.80-7.70) 10*3/uL Lymphocytes # 1.92 (0.90-5.00) 10*3/uL Monocytes # 0.78 (0.20-1.00) 10*3/uL Eosinophils # 0.38 H (0.04-0.35) 10*3/uL Basophils # 0.08 (0.00-0.10) 10*3/uL PT (10.0-12.5) sec INR (<1.2) APTT (22.0-30.0) sec VBG pH (7.31-7.41) VBG pCO2 (37-51) mmHg VBG HCO3 (24-28) mmol/L Sodium 133 L (137-145) mmol/L Potassium 4.6 (3.5-5.1) mmol/L Chloride 99 (98-107) mmol/L Carbon Dioxide 19 L (22-30) mmol/L Anion Gap 15 mmol/L BUN 14 (9-20) mg/dL Creatinine 0.48 L (0.66-1.25) mg/dL Est GFR (CKD-EPI)AfAm >90 (>60 ml/min/1.73 sqM) Est GFR (CKD-EPI)NonAf >90 (>60 ml/min/1.73 sqM) Glucose 282 H (74-99) mg/dL Lactic Ac Sepsis Rflx Plasma Lactic Acid Edd (0.7-2.0) mmol/L Calcium 10.7 H (8.4-10.2) mg/dL Phosphorus (2.5-4.5) mg/dL Magnesium (1.6-2.3) mg/dL Total Bilirubin 1.0 (0.2-1.3) mg/dL AST 28 (17-59) U/L ALT 25 (4-49) U/L Alkaline Phosphatase 133 H (38-126) U/L Troponin I <0.012 (0.000-0.034) ng/mL Total Protein 7.7 (6.3-8.2) g/dL Albumin 4.7 (3.5-5.0) g/dL Lipase 76 (23-300) U/L Urine Color Urine Appearance (Clear) Urine pH (5.0-8.0) Ur Specific [place] (1.001-1.035) Urine Protein (Negative) Urine Glucose (UA) (Negative) Urine Ketones (Negative) Urine Blood (Negative) Urine Nitrite (Negative) Urine Bilirubin (Negative) Urine Urobilinogen (<2.0) mg/dL Ur Leukocyte Esterase (Negative) Stool Occult Blood (Negative) Acetone, Qual (Negative) Blood Type Blood Type Recheck Bld Type Recheck Status Antibody Screen Spec Expiration Date 10/31/24 10/31/24 10/31/24 Range/Units 03:34 03:34 03:34 WBC (4.50-10.00) 10*3/uL RBC (4.40-5.60) 10*6/uL Hgb (13.0-17.0) g/dL Hct (39.6-50.0) % MCV (80.0-97.0) fL MCH (27.0-32.0) pg MCHC (32.0-37.0) g/dL Plt Count (140-440) 10*3/uL MPV (9.5-12.2) fL Immature Gran % (Auto) % Neutrophils % % Lymphocytes % % Monocytes % % Eosinophils % % Basophils % % Immature Gran # (0.00-0.04) 10*3/uL Neutrophils # (1.80-7.70) 10*3/uL Lymphocytes # (0.90-5.00) 10*3/uL Monocytes # (0.20-1.00) 10*3/uL Eosinophils # (0.04-0.35) 10*3/uL Basophils # (0.00-0.10) 10*3/uL PT (10.0-12.5) sec INR (<1.2) APTT (22.0-30.0) sec VBG pH (7.31-7.41) VBG pCO2 (37-51) mmHg VBG HCO3 (24-28) mmol/L Sodium (137-145) mmol/L Potassium (3.5-5.1) mmol/L Chloride (98-107) mmol/L Carbon Dioxide (22-30) mmol/L Anion Gap mmol/L BUN (9-20) mg/dL Creatinine (0.66-1.25) mg/dL Est GFR (CKD-EPI)AfAm (>60 ml/min/1.73 sqM) Est GFR (CKD-EPI)NonAf (>60 ml/min/1.73 sqM) Glucose (74-99) mg/dL Lactic Ac Sepsis Rflx Plasma Lactic Acid Edd (0.7-2.0) mmol/L Calcium (8.4-10.2) mg/dL Phosphorus 4.4 (2.5-4.5) mg/dL Magnesium 1.7 (1.6-2.3) mg/dL Total Bilirubin (0.2-1.3) mg/dL AST (17-59) U/L ALT (4-49) U/L Alkaline Phosphatase (38-126) U/L Troponin I (0.000-0.034) ng/mL Total Protein (6.3-8.2) g/dL Albumin (3.5-5.0) g/dL Lipase (23-300) U/L Urine Color Urine Appearance (Clear) Urine pH (5.0-8.0) Ur Specific [place] (1.001-1.035) Urine Protein (Negative) Urine Glucose (UA) (Negative) Urine Ketones (Negative) Urine Blood (Negative) Urine Nitrite (Negative) Urine Bilirubin (Negative) Urine Urobilinogen (<2.0) mg/dL Ur Leukocyte Esterase (Negative) Stool Occult Blood Negative (Negative) Acetone, Qual Positive (Negative) Blood Type Blood Type Recheck Bld Type Recheck Status Antibody Screen Spec Expiration Date 10/31/24 10/31/24 10/31/24 Range/Units 03:42 03:45 03:45 WBC (4.50-10.00) 10*3/uL RBC (4.40-5.60) 10*6/uL Hgb (13.0-17.0) g/dL Hct (39.6-50.0) % MCV (80.0-97.0) fL MCH (27.0-32.0) pg MCHC (32.0-37.0) g/dL Plt Count (140-440) 10*3/uL MPV (9.5-12.2) fL Immature Gran % (Auto) % Neutrophils % % Lymphocytes % % Monocytes % % Eosinophils % % Basophils % % Immature Gran # (0.00-0.04) 10*3/uL Neutrophils # (1.80-7.70) 10*3/uL Lymphocytes # (0.90-5.00) 10*3/uL Monocytes # (0.20-1.00) 10*3/uL Eosinophils # (0.04-0.35) 10*3/uL Basophils # (0.00-0.10) 10*3/uL PT 10.4 (10.0-12.5) sec INR 0.9 (<1.2) APTT 17.7 L (22.0-30.0) sec VBG pH (7.31-7.41) VBG pCO2 (37-51) mmHg VBG HCO3 (24-28) mmol/L Sodium (137-145) mmol/L Potassium (3.5-5.1) mmol/L Chloride (98-107) mmol/L Carbon Dioxide (22-30) mmol/L Anion Gap mmol/L BUN (9-20) mg/dL Creatinine (0.66-1.25) mg/dL Est GFR (CKD-EPI)AfAm (>60 ml/min/1.73 sqM) Est GFR (CKD-EPI)NonAf (>60 ml/min/1.73 sqM) Glucose (74-99) mg/dL Lactic Ac Sepsis Rflx Plasma Lactic Acid Edd 2.5 H* (0.7-2.0) mmol/L Calcium (8.4-10.2) mg/dL Phosphorus (2.5-4.5) mg/dL Magnesium (1.6-2.3) mg/dL Total Bilirubin (0.2-1.3) mg/dL AST (17-59) U/L ALT (4-49) U/L Alkaline Phosphatase (38-126) U/L Troponin I (0.000-0.034) ng/mL Total Protein (6.3-8.2) g/dL Albumin (3.5-5.0) g/dL Lipase (23-300) U/L Urine Color Urine Appearance (Clear) Urine pH (5.0-8.0) Ur Specific [place] (1.001-1.035) Urine Protein (Negative) Urine Glucose (UA) (Negative) Urine Ketones (Negative) Urine Blood (Negative) Urine Nitrite (Negative) Urine Bilirubin (Negative) Urine Urobilinogen (<2.0) mg/dL Ur Leukocyte Esterase (Negative) Stool Occult Blood (Negative) Acetone, Qual (Negative) Blood Type O Positive Blood Type Recheck O Pos Bld Type Recheck Status No Antibody Screen NEGATIVE Spec Expiration Date 11/03/2024 - 234110/31/24 10/31/24 10/31/24 Range/Units 05:34 05:55 06:14 WBC (4.50-10.00) 10*3/uL RBC (4.40-5.60) 10*6/uL Hgb (13.0-17.0) g/dL Hct (39.6-50.0) % MCV (80.0-97.0) fL MCH (27.0-32.0) pg MCHC (32.0-37.0) g/dL Plt Count (140-440) 10*3/uL MPV (9.5-12.2) fL Immature Gran % (Auto) % Neutrophils % % Lymphocytes % % Monocytes % % Eosinophils % % Basophils % % Immature Gran # (0.00-0.04) 10*3/uL Neutrophils # (1.80-7.70) 10*3/uL Lymphocytes # (0.90-5.00) 10*3/uL Monocytes # (0.20-1.00) 10*3/uL Eosinophils # (0.04-0.35) 10*3/uL Basophils # (0.00-0.10) 10*3/uL PT (10.0-12.5) sec INR (<1.2) APTT (22.0-30.0) sec VBG pH 7.40 (7.31-7.41) VBG pCO2 31 L (37-51) mmHg VBG HCO3 19 L (24-28) mmol/L Sodium (137-145) mmol/L Potassium (3.5-5.1) mmol/L Chloride (98-107) mmol/L Carbon Dioxide (22-30) mmol/L Anion Gap mmol/L BUN (9-20) mg/dL Creatinine (0.66-1.25) mg/dL Est GFR (CKD-EPI)AfAm (>60 ml/min/1.73 sqM) Est GFR (CKD-EPI)NonAf (>60 ml/min/1.73 sqM) Glucose (74-99) mg/dL Lactic Ac Sepsis Rflx Y Plasma Lactic Acid Edd (0.7-2.0) mmol/L Calcium (8.4-10.2) mg/dL Phosphorus (2.5-4.5) mg/dL Magnesium (1.6-2.3) mg/dL Total Bilirubin (0.2-1.3) mg/dL AST (17-59) U/L ALT (4-49) U/L Alkaline Phosphatase (38-126) U/L Troponin I (0.000-0.034) ng/mL Total Protein (6.3-8.2) g/dL Albumin (3.5-5.0) g/dL Lipase (23-300) U/L Urine Color Colorless Urine Appearance Clear (Clear) Urine pH 5.0 (5.0-8.0) Ur Specific [place] >1.050 H (1.001-1.035) Urine Protein Trace H (Negative) Urine Glucose (UA) 4+ H (Negative) Urine Ketones 1+ H (Negative) Urine Blood Negative (Negative) Urine Nitrite Negative (Negative) Urine Bilirubin Negative (Negative) Urine Urobilinogen <2.0 (<2.0) mg/dL Ur Leukocyte Esterase Negative (Negative) Stool Occult Blood (Negative) Acetone, Qual (Negative) Blood Type Blood Type Recheck Bld Type Recheck Status Antibody Screen Spec Expiration Date Disposition Clinical Impression: Enteritis, Uncontrolled diabetes mellitus with hyperglycemia Disposition: [facility]MITTED IP TO [facility] Condition: Stable
[2024-10-31 03:45] LABS: Basophils # (A) 0.08 10*3/uL (0.00-0.10); Basophils % (A) 0.8 %; Eosinophils # (A) 0.38 10*3/uL (0.04-0.35); Eosinophils % (A) 3.8 %; HCT 47.7 % (39.6-50.0); HGB 16.6 g/dL (13.0-17.0); Lymphocytes # (A) 1.92 10*3/uL (0.90-5.00); Lymphocytes % (A) 19.4 %; MCH 29.1 pg (27.0-32.0); MCHC 34.8 g/dL (32.0-37.0); MCV 83.5 fL (80.0-97.0); Mean Platelet Volume 8.9 fL (9.5-12.2); Monocytes # (A) 0.78 10*3/uL (0.20-1.00); Monocytes % (A) 7.9 %; Neutrophils # (A) 6.73 10*3/uL (1.80-7.70); Neutrophils % (A) 67.8 %; Platelet Count 313 10*3/uL (140-440); RBC 5.71 10*6/uL (4.40-5.60); RDW 13.7 % (11.5-14.5); WBC 9.92 10*3/uL (4.50-10.00)
[2024-10-31] MEDS: SODIUM CHLORIDE 0.9% 1,000 ML IV STA (03:51)
[2024-10-31] MEDS: ONDANSETRON 4 MG/2 ML VIAL IVP STA ×2 (03:51→04:16)
[2024-10-31] MEDS: HYDROmorphone 1 MG/ML 1 ML SYRINGE IVP STA (03:54)
[2024-10-31] MEDS: PANTOPRAZOLE 40 MG/10 ML VIAL IVP STA (03:57)
[2024-10-31 03:59] LABS: ALT 25 U/L (4-49); AST 28 U/L (17-59); African American GFR (CKD) >90 (>60 ml/min/1.73 sqM); Albumin 4.7 g/dL (3.5-5.0); Alkaline Phosphatase 133 U/L (38-126); Anion Gap 15 mmol/L; Blood Urea Nitrogen 14 mg/dL (9-20); Calcium 10.7 mg/dL (8.4-10.2); Carbon Dioxide 19 mmol/L (22-30); Chloride 99 mmol/L (98-107); Glucose 282 mg/dL (74-99); Lipase 76 U/L (23-300); Non-African American GFR(CKD) >90 (>60 ml/min/1.73 sqM); Sodium 133 mmol/L (137-145); Total Protein 7.7 g/dL (6.3-8.2)
--- NOTE | 2024-10-31 04:13 | XR ---
EXAM: XR Chest, 1 View CLINICAL HISTORY: ITS.REASON XR Reason: pain TECHNIQUE: Frontal view of the chest. COMPARISON: XR Chest dated 10/28/24 FINDINGS: Lungs: Low lung volumes. No consolidation. Pleural space: Unremarkable. No pneumothorax. Heart: Unremarkable. No cardiomegaly. Mediastinum: Unremarkable. Normal mediastinal contour. Bones/joints: Hardware in the cervical spine. No acute fracture. IMPRESSION: Low lung volumes. No evidence of acute cardiopulmonary disease.
[2024-10-31 04:18] LABS: INR 0.9 (<1.2); Prothrombin Time 10.4 sec (10.0-12.5)
[2024-10-31 04:22] LABS: Partial Thromboplastin Time 17.7 sec (22.0-30.0)
[2024-10-31 04:43] LABS: Potassium 4.6 mmol/L (3.5-5.1)
[2024-10-31] MEDS: FAMOTIDINE 20 MG/2 ML VIAL IV STA (05:40)
[2024-10-31] MEDS: LIDOCAINE VISCOUS 2% 15 ML CUP PO ONE (05:41)
[2024-10-31] MEDS: HYDROmorphone 0.5 MG/0.5 ML SYRINGE IVP STA (05:41)
[2024-10-31] MEDS: SODIUM CHLORIDE 0.9% 1,000 ML IV ONE (05:41)
[2024-10-31] MEDS: MAG HYDROX/AL HYDROX/SIMETH 30 ML CUP PO STA (05:41)
--- NOTE | 2024-10-31 05:45 | CT ---
EXAM: CT Abdomen and Pelvis With Intravenous Contrast CLINICAL HISTORY: ITS.REASON CT Reason: r.abd. pain, rads. to flank, hematemasis Per technologist additional History lines:Lumbar decompression/fusion/laminectomy, spinal stimulator, T lift procedure, L inguinal hernia repair, multiple ESWLs/stents/double J caths, colonoscopy, 02/2020 colectomy, EGDs for food obstructions and dilations, NERVE STIMULATOR, appy, manpreet, heart cath, hx of prolapse mitral valve, PE. Patient coming in with complaints of abdominal pain and vomitting bright red blood and having bright red loose stools for 6 hours. TECHNIQUE: Axial computed tomography images of the abdomen and pelvis with intravenous contrast. CTDI is 37.1 mGy and DLP is 1948.8 mGy-cm. This CT exam was performed using one or more of the following dose reduction techniques: automated exposure control, adjustment of the mA and/or kV according to patient size, and/or use of iterative reconstruction technique. COMPARISON: CT Abdomen Pelvis dated 04/12/2024 FINDINGS: Lung bases: Unremarkable. No mass. No consolidation. ABDOMEN: Liver: Hepatic steatosis. Gallbladder and bile ducts: Cholecystectomy. No ductal dilation. Pancreas: Unremarkable. No mass. No ductal dilation. Spleen: Unremarkable. No splenomegaly. Adrenals: Unremarkable. No mass. Kidneys and ureters: Right renal cyst. No hydronephrosis. Stomach and bowel: Mild colonic diverticulosis. Colonic sutures near the splenic flexure region. Few mildly distended small bowel loops in the left lower abdomen. There is fluid in the colon suggesting diarrhea. No mucosal thickening. PELVIS: Appendix: Appendix not visualized/appendectomy per history. Bladder: Unremarkable. No mass. Reproductive: Unremarkable as visualized. ABDOMEN and PELVIS: Intraperitoneal space: Unremarkable. No free air. No significant fluid collection. Bones/joints: L3-S1 posterior fusion, stable appearance. L5 laminectomy. No acute fracture. No dislocation. Soft tissues: Unremarkable. Vasculature: Mild aortoiliac atherosclerotic calcifications. Circumaortic left renal vein. Lymph nodes: Unremarkable. No enlarged lymph nodes. IMPRESSION: 1. Few mildly distended small bowel loops in the left lower abdomen. May represent ileus/enteritis. 2. There is fluid in the colon suggesting diarrhea.
[2024-10-31] MEDS: carvediloL 12.5 MG TAB PO STA (05:53)
[2024-10-31 06:05] LABS: Appearance,Urine Clear (Clear); Bilirubin,Urine Negative (Negative); Blood,Urine Negative (Negative); Color,Urine Colorless; Glucose,Urine (UA) 4+ (Negative); Ketones,Urine 1+ (Negative); Leukocyte Esterase,Urine Negative (Negative); Nitrite,Urine Negative (Negative); Protein,Urine Trace (Negative); Urobilinogen,Urine <2.0 mg/dL (<2.0)
[2024-10-31 06:20] LABS: Glucose,Whole Blood 243 mg/dL (70-110)
[2024-10-31] MEDS ORDERED: NITROGLYCERIN SL TABS 0.4 MG TAB SUBLINGUAL PRN (06:20)
[2024-10-31] MEDS: carvediloL 12.5 MG TAB PO SCH (06:39)
[2024-10-31] MEDS ORDERED: D5-0.45% NACL WITH KCL 20MEQ/L 1,000 ML IV SCH (06:45)
[2024-10-31] MEDS: INSULIN LISPRO (HumaLOG) 100 UNIT/ML 10 mL VL SQ SCH (07:06)
[2024-10-31 07:12] LABS: VBG PH 7.4 (7.31-7.41)
[2024-10-31 07:14] LABS: Magnesium 1.7 mg/dL (1.6-2.3); Phosphorus 4.4 mg/dL (2.5-4.5)
[2024-10-31 07:25] LABS: Glucose,Whole Blood 252 mg/dL (70-110)
[2024-10-31] MEDS: INSULIN GLARGINE (LANTUS) 100 UNIT/ML SYR SQ SCH (07:25)
[2024-10-31] MEDS: SODIUM CHLORIDE 0.9% 1,000 ML IV SCH (07:26)
[2024-10-31] MEDS: INSULIN REGULAR 100 UNIT in SODIUM CHLORIDE 0.9% 100 ML IV SCH (07:26)
[2024-10-31 07:36] LABS: Specific Gravity,Urine >1.050 (1.001-1.035)
[2024-10-31] MEDS: methocarbamoL 750 MG TAB PO SCH (08:23)
[2024-10-31 08:50] LABS: African American GFR (CKD) >90 (>60 ml/min/1.73 sqM); Blood Urea Nitrogen 12 mg/dL (9-20); Glucose 254 mg/dL (74-99); Non-African American GFR(CKD) >90 (>60 ml/min/1.73 sqM)
[2024-10-31] MEDS ORDERED: INSULIN GLARGINE (LANTUS) 100 UNIT/ML SYR SQ SCH (09:00)
[2024-10-31] MEDS ORDERED: ISOSORBIDE MONONITRATE ER 60 MG TAB.ER.24H PO SCH (09:00)
[2024-10-31] MEDS ORDERED: DILTIAZEM ORAL 30 MG TAB PO SCH (09:00)
[2024-10-31] MEDS: GABAPENTIN 300 MG CAP PO SCH (09:33)
[2024-10-31] MEDS: APIXABAN 5 MG TAB PO SCH (09:33)
[2024-10-31] MEDS: oxyCODONE-APAP 5-325MG 1 EACH TAB PO SCH (09:33)
[2024-10-31] MEDS: PANTOPRAZOLE 40 MG TABLET PO SCH (09:33)
[2024-10-31] MEDS: ATORVASTATIN 20 MG TAB PO SCH (09:34)
[2024-10-31] MEDS: LOSARTAN 50 MG TAB PO SCH (09:34)
[2024-10-31] MEDS: amLODIPine 5 MG TAB PO SCH (09:34)
[2024-10-31] MEDS: ISOSORBIDE MONONITRATE ER 30 MG TAB.ER.24H PO SCH (09:34)
[2024-10-31] MEDS: HYDROmorphone 0.5 MG/0.5 ML SYRINGE IVP PRN (11:29)
[2024-10-31 12:00] LABS: Glucose,Whole Blood 199 mg/dL (70-110)
[2024-10-31 12:02] VITALS: BMI 34.5
[2024-10-31 12:34] LABS: African American GFR (CKD) >90 (>60 ml/min/1.73 sqM); Blood Urea Nitrogen 11 mg/dL (9-20); Glucose 196 mg/dL (74-99); Non-African American GFR(CKD) >90 (>60 ml/min/1.73 sqM)
[2024-10-31 15:20] LABS: ALT 21 U/L (4-49); AST 20 U/L (17-59); Albumin 3.7 g/dL (3.5-5.0); Albumin/Globulin Ratio 1.4; Alkaline Phosphatase 102 U/L (38-126); Anion Gap 13 mmol/L; Calcium 9.1 mg/dL (8.4-10.2); Carbon Dioxide 16 mmol/L (22-30); Chloride 106 mmol/L (98-107); Globulin 2.6 g/dL; Potassium 4.5 mmol/L (3.5-5.1); Sodium 135 mmol/L (137-145); Total Bilirubin 0.8 mg/dL (0.2-1.3); Total Protein 6.3 g/dL (6.3-8.2)
[2024-10-31 15:20] LABS: Anion Gap 12 mmol/L; Carbon Dioxide 17 mmol/L (22-30); Chloride 106 mmol/L (98-107); Potassium 4.3 mmol/L (3.5-5.1); Sodium 135 mmol/L (137-145)
[2024-10-31 17:03] LABS: Glucose,Whole Blood 225 mg/dL (70-110)
[2024-10-31 20:31] LABS: Glucose,Whole Blood 243 mg/dL (70-110)
[2024-10-31] MEDS: carvediloL 6.25 MG TAB PO SCH (21:13)
[2024-11-01 07:06] LABS: Glucose,Whole Blood 181 mg/dL (70-110)
[2024-11-01] MEDS: IPRATROPIUM-ALBUTEROL 3 ML NEB INHALATION SCH (07:53)
[2024-11-01] MEDS: PANTOPRAZOLE 40 MG TABLET PO SCH (11:34)
[2024-11-01 11:40] LABS: HCT 36.5 % (39.6-50.0); MCH 29.2 pg (27.0-32.0); MCHC 34.5 g/dL (32.0-37.0); MCV 84.5 fL (80.0-97.0); Mean Platelet Volume 8.6 fL (9.5-12.2); Platelet Count 216 10*3/uL (140-440); RBC 4.32 10*6/uL (4.40-5.60); RDW 13.5 % (11.5-14.5); WBC 5.11 10*3/uL (4.50-10.00)
[2024-11-01 11:45] LABS: HGB 12.6 g/dL (13.0-17.0)
[2024-11-01 12:08] LABS: Glucose,Whole Blood 189 mg/dL (70-110)
--- NOTE | 2024-11-01 14:02 | P.HPIM ---
History of Present Illness H&P Date: 11/01/24 Chief Complaint: Abdominal pain and bloody emesis 58-year-old morbidly obese male presented emergency department with 3 episodes of bloody emesis along with central abdominal pain which is pretty much in central also some pain was going to the lateral right flank which is resolved, lately he has a bowel movement with a streak of blood came to the hospital for further evaluation. Prior medical history significant for colon cancer 3 years ago patient is in remission, on specific questioning patient denies any fever chills lightheaded dizziness denies any shortness of breath denies any chest pain denies any loss of consciousness dizziness lightheadedness. His labs were significant for CBC fairly within normal limit, coags within normal limit, sodium 135 potassium 4.3 BUN/creatinine 11/0.5, glucose 199 chemistry otherwise fairly within normal limit, glucose is 196. Chest x-ray seen for low lung volumes, CT scan of the abdominal pelvis mildly distended small bowel likely ileus, fluid in the colon suggestive of diarrhea Active medical problems include type 2 diabetes mellitus with hyperglycemia on short and long-acting insulin, chronic neuropathy, chronic pain syndrome, coronary artery disease, GERD, heart failure, chronic asthma history of pulmonary embolism sleep disordered breathing and sleep apnea has been noncompliant with CPAP machine Review of Systems All systems: negative Past Medical History Past Medical History: Asthma, Coronary Artery Disease (CAD), Cancer, Chest Pain / Angina, Diabetes Mellitus, GERD/Reflux, GI Bleed, Hyperlipidemia, Hypertension, Myocardial Infarction (OR), Mitral Valve Prolapse (MVP), Pulmonary Embolus (PE), Sleep Apnea/CPAP/BIPAP Additional Past Medical History / Comment(s): Asthmatic bronchitis-chronic, IDDM type II, neuropathy bilateral feet, lower and upper GI bleeds, PUD, diverticulitis, colectomy d/t benign mass/intusseption, BPH, renal cysts, nephrolithiais, UTI with sepsis, chronic back pain 2ndary to herniated lumbar discs/sciatica, JARED does not use his Cpap, MVP, murmur, chronic dysphagia, colon cancer Last Myocardial Infarction Date:: 2011 History of Any Multi-Drug Resistant Organisms: C-DIFF, MRSA Date of last positivie culture/infection: 2015 MDRO Source:: left axilla Past Surgical History: Appendectomy, Back Surgery, Cholecystectomy, Heart Catheterization, Hernia Repair, Orthopedic Surgery Additional Past Surgical History / Comment(s): Lumbar decompression/fusion/laminectomy, spinal stimulator, T lift procedure, L inguinal hernia repair, multiple ESWLs/stents/double J caths, colonoscopy, 02/2020 colectomy, EGDs for food obstructions and dilations, NERVE STIMULATOR Past Anesthesia/Blood Transfusion Reactions: No Reported Reaction Past Psychological History: No Psychological Hx Reported Smoking Status: Never smoker Past Alcohol Use History: None Reported Past Drug Use History: None Reported - Past Family History Father Family Medical History: Chest Pain / Angina Additional Family Medical History / Comment(s): "lung problems" Mother Family Medical History: Blood Disorder, Cancer, Chest Pain / Angina, Congestive Heart Failure (CHF), Osteoarthritis (OA), Thyroid Disorder Additional Family Medical History / Comment(s): "building appraiser cancer" blood clots Medications and Allergies Home Medications Medication Instructions Recorded Confirmed Type Insulin Lispro [humaLOG Kwikpen] See Protocol SQ ACHS 06/16/21 10/31/24 History Insulin Glargine,Hum.rec.anlog 34 units SQ DAILY 10/20/22 10/31/24 History [Lantus Solostar Pen] Gabapentin 600 mg PO TID 03/25/24 10/31/24 History Insulin Lispro [humaLOG Kwikpen] 10 unit SQ TID-W/MEALS 03/25/24 10/31/24 History methocarbamoL [Robaxin-750] 750 mg PO TID 03/25/24 10/31/24 History oxyCODONE-APAP 5-325MG [Percocet 1 tab PO QID 04/29/24 10/31/24 History 5-325 mg] Nitroglycerin Sl Tabs [Nitrostat] 0.4 mg SUBLINGUAL Q5M PRN 06/14/24 10/31/24 History Apixaban [Eliquis] 5 mg PO BID 10/31/24 10/31/24 History Atorvastatin [Lipitor] 20 mg PO DAILY 10/31/24 10/31/24 History Insulin Glargine,Hum.rec.anlog 34 units SQ HS PRN 10/31/24 10/31/24 History [Lantus Solostar Pen] Isosorbide Mononitrate ER [Imdur] 30 mg PO DAILY 10/31/24 10/31/24 History Losartan [Cozaar] 50 mg PO DAILY 10/31/24 10/31/24 History Omeprazole [PriLOSEC] 40 mg PO DAILY 10/31/24 10/31/24 History amLODIPine [Norvasc] 5 mg PO DAILY 10/31/24 10/31/24 History carvediloL [Coreg] 6.25 mg PO BID 10/31/24 10/31/24 History Allergies Allergy/AdvReac Type Severity Reaction Status Date / Time doxycycline Allergy Swelling Verified 10/31/24 07:34 ketorolac tromethamine Allergy Rash/Hives Verified 10/31/24 07:34 [From Toradol] morphine Allergy Rash/Hives Verified 10/31/24 07:34 metoclopramide HCl AdvReac Dystonic Verified 10/31/24 07:34 [From Reglan] Reaction prochlorperazine edisylate AdvReac Dystonic Verified 10/31/24 07:34 [From Compazine] Reaction prochlorperazine maleate AdvReac Dystonic Verified 10/31/24 07:34 [From Compazine] Reaction Physical Exam Vitals: Vital Signs Temp Pulse Pulse Resp BP Pulse Ox 11/01/24 13:23 97.9 F 102 H 18 131/80 97 11/01/24 11:40 84 11/01/24 11:28 84 11/01/24 08:11 80 11/01/24 08:05 98.1 F 90 18 165/105 100 11/01/24 07:53 76 11/01/24 07:06 98.5 F 79 16 145/91 99 11/01/24 02:00 125/69 11/01/24 01:26 97.8 F 81 18 96/61 94 L 10/31/24 19:01 99.1 F 99 20 99/67 98 Intake and Output 10/31/24 11/01/24 11/01/24 22:59 06:59 14:59 Intake Total 300 Balance 300 Intake: Oral 300 Other: Voiding Method Toilet # Voids 2 - Constitutional General appearance: average body habitus, cooperative, disheveled - EENT Eyes: EOMI, PERRLA ENT: normal oropharynx Ears: bilateral: normal - Neck Neck: normal ROM Carotids: bilateral: upstroke normal Thyroid: bilateral: normal size - Respiratory Respiratory: bilateral: CTA - Cardiovascular Rhythm: regular Heart sounds: normal: S1, S2 - Gastrointestinal General gastrointestinal: normal bowel sounds, soft - Integumentary Integumentary: normal turgor - Neurologic Neurologic: CNII-XII intact - Musculoskeletal Musculoskeletal: gait normal, generalized weakness, strength equal bilaterally - Psychiatric Psychiatric: A&O x's 3, appropriate affect, intact judgment & insight Results CBC & Chem 7: 11/01/24 11:13 10/31/24 11:35 Labs: Abnormal Lab Results - Last 24 Hours (Table) 10/31/24 10/31/24 10/31/24 Range/Units 08:22 11:35 17:02 RBC (4.40-5.60) 10*6/uL Hgb (13.0-17.0) g/dL Hct (39.6-50.0) % MPV (9.5-12.2) fL Sodium 135 L 135 L (137-145) mmol/L Carbon Dioxide 16 L 17 L (22-30) mmol/L Creatinine 0.42 L 0.45 L (0.66-1.25) mg/dL Glucose 254 H 196 H (74-99) mg/dL POC Glucose (mg/dL) 225 H (70-110) mg/dL Hemoglobin A1c (<=6.0) % 10/31/24 10/31/24 11/01/24 Range/Units 17:38 20:30 07:04 RBC (4.40-5.60) 10*6/uL Hgb (13.0-17.0) g/dL Hct (39.6-50.0) % MPV (9.5-12.2) fL Sodium (137-145) mmol/L Carbon Dioxide (22-30) mmol/L Creatinine (0.66-1.25) mg/dL Glucose (74-99) mg/dL POC Glucose (mg/dL) 243 H 181 H (70-110) mg/dL Hemoglobin A1c 10.4 H (<=6.0) % 11/01/24 11/01/24 Range/Units 11:13 12:06 RBC 4.32 L (4.40-5.60) 10*6/uL Hgb 12.6 L D (13.0-17.0) g/dL Hct 36.5 L (39.6-50.0) % MPV 8.6 L (9.5-12.2) fL Sodium (137-145) mmol/L Carbon Dioxide (22-30) mmol/L Creatinine (0.66-1.25) mg/dL Glucose (74-99) mg/dL POC Glucose (mg/dL) 189 H (70-110) mg/dL Hemoglobin A1c (<=6.0) % Thrombosis Risk Factor Assmnt - Choose All That Apply Any of the Below Risk Factors Present?: Yes Each Factor Represents 1 point: Age 41-60 years Other Risk Factors: No Other congenital or acquired thrombophilia - If yes, enter type in comment: No Thrombosis Risk Factor Assessment Total Risk Factor Score: 1 Thrombosis Risk Factor Assessment Level: Low Risk Assessment and Plan Assessment: Upper GI bleed Small bowel obstruction Chronic pain syndrome Sleep disordered breathing and sleep apnea History of pulmonary embolism COPD Hypertension hypertensive cardiovascular disease Type 2 diabetes mellitus with hyperglycemia uncontrolled Patient with history of using direct oral anticoagulant which is on hold Plan: Continue home medicine PPI GI consult for upper and lower endoscopy Pain control Continue to follow hemoglobin closely Time with Patient: Greater than 30
--- NOTE | 2024-11-01 15:11 | P.GSCN ---
History of Present Illness Consult date: 11/01/24 History of present illness: CHIEF COMPLAINT: Abdominal pain HISTORY OF PRESENT ILLNESS: This is a 58-year-old male who presented the hospital with complaints of periumbilical abdominal pain and epigastric pain for the last 3 days. Patient reports he had been having dry heaves and nausea intermittently over the last couple of weeks. Yesterday he had 3 episodes of b loody emesis and streaks of blood in his stool. He is on Eliquis at home for PE. Patient has a known history of colon cancer with bowel resection about 5 years ago at [facility]. He reports his last colonoscopy was at that time. Hemoglobin on admission was 16. CT scan of abdomen had reported a few mildly distended small bowel loops in the left lower abdomen with evidence of ileus versus enteritis. Stool for occult blood was negative. Patient also complaining of difficulty with swallowing. He reports that sometimes solid foods for like they are sticking. He does have a prior history of stomach ulcers. He reports having an EGD with dilation about [address] Sawant. Patient has had no further bleeding since being admitted to hospital. PAST MEDICAL HISTORY: Asthma, Coronary Artery Disease (CAD), Cancer, Chest Pain / Angina, Diabetes Mellitus, GERD/Reflux, GI Bleed, Hyperlipidemia, Hypertension, Myocardial Infarction (LA), Mitral Valve Prolapse (MVP), Pulmonary Embolus (PE), Sleep Apnea/CPAP/BIPAP, Asthmatic bronchitis-chronic, IDDM type II, neuropathy bilateral feet, lower and upper GI bleeds, PUD, diverticulitis, colectomy d/t benign mass/intusseption, BPH, renal cysts, nephrolithiais, UTI with sepsis, chronic back pain 2ndary to herniated lumbar discs/sciatica, JARED does not use his Cpap, MVP, murmur, chronic dysphagia, colon cancer PAST SURGICAL HISTORY: Appendectomy, Back Surgery, Cholecystectomy, Heart Catheterization, Hernia Repair, Orthopedic Surgery, Lumbar decompression/fusion/laminectomy, spinal stimulator, T lift procedure, L inguinal hernia repair, multiple ESWLs/stents/double J caths, colonoscopy, 02/2020 colectomy, EGDs for food obstructions and dilations, NERVE STIMULATOR MEDICATIONS: See below ALLERGIES: See below SOCIAL HISTORY: No illicit drug use. REVIEW OF SYSTEMS: CONSTITUTIONAL: Denies fever or chills. HEENT: Denies blurred vision, vision changes, or eye pain. Denies hemoptysis CARDIOVASCULAR: Denies chest pain or pressure. RESPIRATORY: No shortness of breath. GASTROINTESTINAL: See HPI for pertinent findings HEMATOLOGIC: Denies bleeding disorders. GENITOURINARY: Denies any blood in urine or increased urinary frequency. SKIN: Denies pruitis. Denies rash. PHYSICAL EXAM: VITAL SIGNS: Reviewed GENERAL: Well-developed in no acute distress. HEENT: No sclera icterus. Extraocular movements grossly intact. Moist buccal mucosa. Head is atraumatic, normocephalic. No nasal drainage. ABDOMEN: Soft. Nondistended. Tenderness palpation of epigastric area and just above the umbilicus. No rebound or guarding noted. NEUROLOGIC: Alert and oriented. Cranial nerves II through XII grossly intact. LABORATORY DATA: WBC 9.92 Hgb 16.6 down to 12.6 platelets 216 Sodium 135 potassium 4.3 creatinine 0.45 Hemoglobin A1c 10.4 Lactic acid 2.5 down to 1.8 Stool for occult blood negative IMAGING: CT scan abdomen pelvis reports a few mildly distended small bowel loops in the left lower abdomen. May represent ileus versus enteritis. There is fluid in the colon suggesting diarrhea. ASSESSMENT: 1. Epigastric abdominal pain and periumbilical pain 2. Acute GI bleed with vomiting of bright red blood and streaks of blood in stool 3. Difficulty with swallowing with history of EGD and dilation. Patient report s his last dilation was [address] Arora 4. Diabetic with elevated blood sugars 5. Possible ileus versus enteritis PLAN: - GI service is not available at this time. - Will plan for EGD and colonoscopy on Monday with Dr. Weiss - Hold Eliquis. Last dose of Eliquis was this morning 11/01/2024 - Continue to monitor for any signs or symptoms of bleeding - Continue to monitor hemoglobin - Change Protonix to 40 mg IV twice a day Physician Battery Tester Field note has been reviewed by physician. Signing provider agrees with the documented findings, assessment, and plan of care. Past Medical History Past Medical History: Asthma, Coronary Artery Disease (CAD), Cancer, Chest Pain / Angina, Diabetes Mellitus, GERD/Reflux, GI Bleed, Hyperlipidemia, Hyper tension, Myocardial Infarction (LA), Mitral Valve Prolapse (MVP), Pulmonary Embolus (PE), Sleep Apnea/CPAP/BIPAP Additional Past Medical History / Comment(s): Asthmatic bronchitis-chronic, IDDM type II, neuropathy bilateral feet, lower and upper GI bleeds, PUD, diverticulitis, colectomy d/t benign mass/intusseption, BPH, renal cysts, nephrolithiais, UTI with sepsis, chronic back pain 2ndary to herniated lumbar discs/sciatica, JARED does not use his Cpap, MVP, murmur, chronic dysphagia, colon cancer Last Myocardial Infarction Date:: 2011 History of Any Multi-Drug Resistant Organisms: C-DIFF, MRSA Year Discovered:: 2015 MDRO Source:: left axilla Past Surgical History: Appendectomy, Back Surgery, Cholecystectomy, Heart Catheterization, Hernia Repair, Orthopedic Surgery Additional Past Surgical History / Comment(s): Lumbar decompression/fusion/laminectomy, spinal stimulator, T lift procedure, L inguinal hernia repair, multiple ESWLs/stents/double J caths, colonoscopy, 02/2020 colectomy, EGDs for food obstructions and dilations, NERVE STIMULATOR Past Anesthesia/Blood Transfusion Reactions: No Reported Reaction Past Psychological History: No Psychological Hx Reported Smoking Status: Never smoker Past Alcohol Use History: None Reported Past Drug Use History: None Reported - Past Family History Father Family Medical History: Chest Pain / Angina Additional Family Medical History / Comment(s): "lung problems" Mother Family Medical History: Blood Disorder, Cancer, Chest Pain / Angina, Congestive Heart Failure (CHF), Osteoarthritis (OA), Thyroid Disorder Additional Family Medical History / Comment(s): "digital solution architect cancer" blood clots Medications and Allergies Home Medications Medication Instructions Recorded Confirmed Type Insulin Lispro [humaLOG Kwikpen] See Protocol SQ ACHS 06/16/21 10/31/24 History Insulin Glargine,Hum.rec.anlog 34 units SQ DAILY 10/20/22 10/31/24 History [Lantus Solostar Pen] Gabapentin 600 mg PO TID 03/25/24 10/31/24 History Insulin Lispro [humaLOG Kwikpen] 10 unit SQ TID-W/MEALS 03/25/24 10/31/24 History methocarbamoL [Robaxin-750] 750 mg PO TID 03/25/24 10/31/24 History oxyCODONE-APAP 5-325MG [Percocet 1 tab PO QID 04/29/24 10/31/24 History 5-325 mg] Nitroglycerin Sl Tabs [Nitrostat] 0.4 mg SUBLINGUAL Q5M PRN 06/14/24 10/31/24 History Apixaban [Eliquis] 5 mg PO BID 10/31/24 10/31/24 History Atorvastatin [Lipitor] 20 mg PO DAILY 10/31/24 10/31/24 History Insulin Glargine,Hum.rec.anlog 34 units SQ HS PRN 10/31/24 10/31/24 History [Lantus Solostar Pen] Isosorbide Mononitrate ER [Imdur] 30 mg PO DAILY 10/31/24 10/31/24 History Losartan [Cozaar] 50 mg PO DAILY 10/31/24 10/31/24 History Omeprazole [PriLOSEC] 40 mg PO DAILY 10/31/24 10/31/24 History amLODIPine [Norvasc] 5 mg PO DAILY 10/31/24 10/31/24 History carvediloL [Coreg] 6.25 mg PO BID 10/31/24 10/31/24 History Allergies Allergy/AdvReac Type Severity Reaction Status Date / Time doxycycline Allergy Swelling Verified 10/31/24 07:34 ketorolac tromethamine Allergy Rash/Hives Verified 10/31/24 07:34 [From Toradol] morphine Allergy Rash/Hives Verified 10/31/24 07:34 metoclopramide HCl AdvReac Dystonic Verified 10/31/24 07:34 [From Reglan] Reaction prochlorperazine edisylate AdvReac Dystonic Verified 10/31/24 07:34 [From Compazine] Reaction prochlorperazine maleate AdvReac Dystonic Verified 10/31/24 07:34 [From Compazine] Reaction Surgical - Exam Vital Signs Temp Pulse Resp BP Pulse Ox 98.4 F 125 H 24 190/119 100 10/31/24 03:03 10/31/24 03:03 10/31/24 03:03 10/31/24 03:03 10/31/24 03:03 Results - Labs 11/01/24 11:13 10/31/24 11:35 Abnormal Lab Results - Last 24 Hours (Table) 10/31/24 10/31/2425 Range/Units 08:22 11:35 11:59 Sodium 135 L 135 L (137-145) mmol/L Carbon Dioxide 16 L 17 L (22-30) mmol/L Creatinine 0.42 L 0.45 L (0.66-1.25) mg/dL Glucose 254 H 196 H (74-99) mg/dL POC Glucose (mg/dL) 199 H (70-110) mg/dL Hemoglobin A1c (<=6.0) % 10/31/24 10/31/24 10/31/24 Range/Units 17:02 17:38 20:30 Sodium (137-145) mmol/L Carbon Dioxide (22-30) mmol/L Creatinine (0.66-1.25) mg/dL Glucose (74-99) mg/dL POC Glucose (mg/dL) 225 H 243 H (70-110) mg/dL Hemoglobin A1c 10.4 H (<=6.0) % 11/01/24 Range/Units 07:04 Sodium (137-145) mmol/L Carbon Dioxide (22-30) mmol/L Creatinine (0.66-1.25) mg/dL Glucose (74-99) mg/dL POC Glucose (mg/dL) 181 H (70-110) mg/dL Hemoglobin A1c (<=6.0) % Diabetes panel 10/31/24 10/31/24 10/31/24 Range/Units 08:22 11:35 17:38 Sodium 135 L 135 L (137-145) mmol/L Potassium 4.5 4.3 (3.5-5.1) mmol/L Chloride 106 106 (98-107) mmol/L Carbon Dioxide 16 L 17 L (22-30) mmol/L BUN 12 11 (9-20) mg/dL Creatinine 0.42 L 0.45 L (0.66-1.25) mg/dL Glucose 254 H 196 H (74-99) mg/dL Hemoglobin A1c 10.4 H (<=6.0) % Calcium 9.1 (8.4-10.2) mg/dL AST 20 (17-59) U/L ALT 21 (4-49) U/L Alkaline Phosphatase 102 (38-126) U/L Total Protein 6.3 (6.3-8.2) g/dL Albumin 3.7 (3.5-5.0) g/dL Calcium panel 10/31/24 10/31/24 Range/Units 08:22 11:35 Calcium 9.1 (8.4-10.2) mg/dL Phosphorus 3.3 (2.5-4.5) mg/dL Albumin 3.7 (3.5-5.0) g/dL Pituitary panel 10/31/24 10/31/24 Range/Units 08:22 11:35 Sodium 135 L 135 L (137-145) mmol/L Potassium 4.5 4.3 (3.5-5.1) mmol/L Chloride 106 106 (98-107) mmol/L Carbon Dioxide 16 L 17 L (22-30) mmol/L BUN 12 11 (9-20) mg/dL Creatinine 0.42 L 0.45 L (0.66-1.25) mg/dL Glucose 254 H 196 H (74-99) mg/dL Calcium 9.1 (8.4-10.2) mg/dL Adrenal panel 10/31/24 10/31/24 Range/Units 08:22 11:35 Sodium 135 L 135 L (137-145) mmol/L Potassium 4.5 4.3 (3.5-5.1) mmol/L Chloride 106 106 (98-107) mmol/L Carbon Dioxide 16 L 17 L (22-30) mmol/L BUN 12 11 (9-20) mg/dL Creatinine 0.42 L 0.45 L (0.66-1.25) mg/dL Glucose 254 H 196 H (74-99) mg/dL Calcium 9.1 (8.4-10.2) mg/dL Total Bilirubin 0.8 (0.2-1.3) mg/dL AST 20 (17-59) U/L ALT 21 (4-49) U/L Alkaline Phosphatase 102 (38-126) U/L Total Protein 6.3 (6.3-8.2) g/dL Albumin 3.7 (3.5-5.0) g/dL
[2024-11-01 17:02] LABS: Glucose,Whole Blood 185 mg/dL (70-110)
[2024-11-01 20:21] LABS: Glucose,Whole Blood 172 mg/dL (70-110)
[2024-11-01] MEDS: PANTOPRAZOLE 40 MG/10 ML VIAL IVP SCH (20:44)
[2024-11-02 03:48] LABS: HCT 35.3 % (39.6-50.0); HGB 11.8 g/dL (13.0-17.0); MCH 28.7 pg (27.0-32.0); MCHC 33.4 g/dL (32.0-37.0); MCV 85.9 fL (80.0-97.0); Mean Platelet Volume 8.8 fL (9.5-12.2); Platelet Count 208 10*3/uL (140-440); RBC 4.11 10*6/uL (4.40-5.60); RDW 13.5 % (11.5-14.5); WBC 5.18 10*3/uL (4.50-10.00)
[2024-11-02 04:16] LABS: African American GFR (CKD) >90 (>60 ml/min/1.73 sqM); Anion Gap 11 mmol/L; Blood Urea Nitrogen 12 mg/dL (9-20); Calcium 8.9 mg/dL (8.4-10.2); Carbon Dioxide 21 mmol/L (22-30); Chloride 100 mmol/L (98-107); Glucose 239 mg/dL (74-99); Non-African American GFR(CKD) >90 (>60 ml/min/1.73 sqM); Potassium 3.8 mmol/L (3.5-5.1); Sodium 132 mmol/L (137-145)
[2024-11-02 07:17] LABS: Glucose,Whole Blood 190 mg/dL (70-110)
--- NOTE | 2024-11-02 09:45 | P.PN ---
Subjective Progress Note Date: 11/02/24 Principal diagnosis: Acute COPD exacerbation Upper GI bleed Small bowel obstruction Chronic pain syndrome Sleep disordered breathing and sleep apnea History of pulmonary embolism COPD Hypertension hypertensive cardiovascular disease Type 2 diabetes mellitus with hyperglycemia uncontrolled Patient with history of using direct oral anticoagulant which is on hold November 02, 2024, patient seen eval examined during rounds labs reviewed medications or care plan discussed, respiratory status overall not much changes still have ongoing cough congestion shortness of breath wheezing is present, patient has generalized aches and pain has been getting Dilaudid discussed with him at length we will taper Dilaudid in next 24 hours labs from today reviewed sodium is 132 potassium 3.8 BUN/creatinine within normal limit, CBC reviewed WBC count is 5.8 hemoglobin down to 11.8, patient remains on Protonix General Surgery following possible endoscopy Monday 58-year-old morbidly obese male presented emergency department with 3 episodes of bloody emesis along with central abdominal pain which is pretty much in central also some pain was going to the lateral right flank which is resolved, lately he has a bowel movement with a streak of blood came to the hospital for further evaluation. Prior medical history significant for colon cancer 3 years ago patient is in remission, on specific questioning patient denies any fever chills lightheaded dizziness denies any shortness of breath denies any chest pain denies any loss of consciousness dizziness lightheadedness. His labs were significant for CBC fairly within normal limit, coags within normal limit, sodium 135 potassium 4.3 BUN/creatinine 11/0.5, glucose 199 chemistry otherwise fairly within normal limit, glucose is 196. Chest x-ray seen for low lung volumes, CT scan of the abdominal pelvis mildly distended small bowel likely ileus, fluid in the colon suggestive of diarrhea Active medical problems include type 2 diabetes mellitus with hyperglycemia on short and long-acting insulin, chronic neuropathy, chronic pain syndrome, coronary artery disease, GERD, heart failure, chronic asthma history of pulmonary embolism sleep disordered breathing and sleep apnea has been noncompliant with CPAP machine Objective - Vital Signs Vital signs: Vital Signs Temp 98.4 F 11/02/24 07:14 Pulse 84 11/02/24 07:14 Resp 16 11/02/24 07:14 BP 131/84 11/02/24 07:14 Pulse Ox 98 11/02/24 07:14 FiO2 Intake & Output 11/01/24 11/02/2425 18:59 06:59 18:59 Intake Total 1080 222 560 Balance 1080 222 560 Intake: Oral 1080 222 560 Other: Voiding Method Toilet # Voids 2 1 - Exam - Constitutional General appearance: average body habitus, cooperative, disheveled - EENT Eyes: EOMI, PERRLA ENT: normal oropharynx Ears: bilateral: normal - Neck Neck: normal ROM Carotids: bilateral: upstroke normal Thyroid: bilateral: normal size - Respiratory Respiratory: bilateral: CTA - Cardiovascular Rhythm: regular Heart sounds: normal: S1, S2 - Gastrointestinal General gastrointestinal: normal bowel sounds, soft - Integumentary Integumentary: normal turgor - Neurologic Neurologic: CNII-XII intact - Musculoskeletal Musculoskeletal: gait normal, generalized weakness, strength equal bilaterally - Psychiatric Psychiatric: A&O x's 3, appropriate affect, intact judgment & insight - Labs CBC & Chem 7: 11/02/24 03:07 11/02/24 03:07 Labs: Abnormal Lab Results - Last 24 Hours (Table) 11/01/24 11/01/24 11/01/24 Range/Units 11:13 12:06 16:55 RBC 4.32 L (4.40-5.60) 10*6/uL Hgb 12.6 L D (13.0-17.0) g/dL Hct 36.5 L (39.6-50.0) % MPV 8.6 L (9.5-12.2) fL Sodium (137-145) mmol/L Carbon Dioxide (22-30) mmol/L Creatinine (0.66-1.25) mg/dL Glucose (74-99) mg/dL POC Glucose (mg/dL) 189 H 185 H (70-110) mg/dL 11/01/24 11/02/24 11/02/24 Range/Units 20:18 03:07 03:07 RBC 4.11 L (4.40-5.60) 10*6/uL Hgb 11.8 L (13.0-17.0) g/dL Hct 35.3 L (39.6-50.0) % MPV 8.8 L (9.5-12.2) fL Sodium 132 L (137-145) mmol/L Carbon Dioxide 21 L (22-30) mmol/L Creatinine 0.50 L (0.66-1.25) mg/dL Glucose 239 H (74-99) mg/dL POC Glucose (mg/dL) 172 H (70-110) mg/dL 11/02/24 Range/Units 07:16 RBC (4.40-5.60) 10*6/uL Hgb (13.0-17.0) g/dL Hct (39.6-50.0) % MPV (9.5-12.2) fL Sodium (137-145) mmol/L Carbon Dioxide (22-30) mmol/L Creatinine (0.66-1.25) mg/dL Glucose (74-99) mg/dL POC Glucose (mg/dL) 190 H (70-110) mg/dL Assessment and Plan Assessment: Acute COPD exacerbation Upper GI bleed Small bowel obstruction Chronic pain syndrome Sleep disordered breathing and sleep apnea History of pulmonary embolism COPD Hypertension hypertensive cardiovascular disease Type 2 diabetes mellitus with hyperglycemia uncontrolled Patient with history of using direct oral anticoagulant which is on hold Plan: Add bronchodilators and IV steroids Continue monitor hemoglobin close Continue home medicine PPI GI consult for upper and lower endoscopy Pain control Continue to follow hemoglobin closely Time with Patient: Greater than 30
[2024-11-02 12:07] LABS: Glucose,Whole Blood 195 mg/dL (70-110)
[2024-11-02] MEDS: methylPREDNISolone SOD SUCCI 40 MG/ML 1 ML VIAL IV SCH (12:46)
[2024-11-02 17:08] LABS: Glucose,Whole Blood 261 mg/dL (70-110)
--- NOTE | 2024-11-02 17:08 | P.PN ---
Subjective Progress Note Date: 11/02/24 Patient is resting comfortably in his bed. He denies any further GI bleed. His hemoglobin is 11.8. On exam vital signs appear stable. Abdomen is soft. Patient scheduled for EGD colonoscopy on Monday. Objective - Vital Signs Vital signs: Vital Signs Temp 98.1 F 11/02/24 14:00 Pulse 80 11/02/24 15:00 Resp 16 11/02/24 14:00 BP 133/87 11/02/24 14:00 Pulse Ox 96 11/02/24 14:00 FiO2 Intake & Output 11/01/24 11/02/24 11/02/24 18:59 06:59 18:59 Intake Total 3695 533 5689 Balance 5516 981 8439 Intake: Oral 2333 584 5575 Other: Voiding Method Toilet Toilet # Voids 2 1 - Labs CBC & Chem 7: 11/02/24 03:07 11/02/24 03:07 Labs: Abnormal Lab Results - Last 24 Hours (Table) 11/01/24 11/02/24 11/02/24 Range/Units 20:18 03:07 03:07 RBC 4.11 L (4.40-5.60) 10*6/uL Hgb 11.8 L (13.0-17.0) g/dL Hct 35.3 L (39.6-50.0) % MPV 8.8 L (9.5-12.2) fL Sodium 132 L (137-145) mmol/L Carbon Dioxide 21 L (22-30) mmol/L Creatinine 0.50 L (0.66-1.25) mg/dL Glucose 239 H (74-99) mg/dL POC Glucose (mg/dL) 172 H (70-110) mg/dL 11/02/24 11/02/24 Range/Units 07:16 12:06 RBC (4.40-5.60) 10*6/uL Hgb (13.0-17.0) g/dL Hct (39.6-50.0) % MPV (9.5-12.2) fL Sodium (137-145) mmol/L Carbon Dioxide (22-30) mmol/L Creatinine (0.66-1.25) mg/dL Glucose (74-99) mg/dL POC Glucose (mg/dL) 190 H 195 H (70-110) mg/dL
[2024-11-02] MEDS: HYDROmorphone 0.5 MG/0.5 ML SYRINGE IVP PRN (18:30)
[2024-11-02 20:18] LABS: Glucose,Whole Blood 343 mg/dL (70-110)
[2024-11-03 06:45] LABS: Glucose,Whole Blood 216 mg/dL (70-110)
[2024-11-03] MEDS: PEG 3350 (236 GM/BTL) + LYTES 4,000 ML BOTTLE PO ONE (09:29)
[2024-11-03 09:56] LABS: Basophils # (A) 0.01 X 10*3/uL (0.00-0.10); Basophils % (A) 0.1 %; Eosinophils # (A) 0 X 10*3/uL (0.04-0.35); Eosinophils % (A) 0 %; HCT 40.6 % (39.6-50.0); HGB 13.6 g/dL (13.0-17.0); Lymphocytes # (A) 0.73 X 10*3/uL (0.90-5.00); Lymphocytes % (A) 9.9 %; MCH 28.8 pg (27.0-32.0); MCHC 33.5 g/dL (32.0-37.0); MCV 85.8 FL (80.0-97.0); Monocytes # (A) 0.24 X 10*3/uL (0.20-1.00); Monocytes % (A) 3.3 %; NRBC Per 100 WBC 0 X 10*3/uL (0.00-0.01); Neutrophils # (A) 6.33 X 10*3/uL (1.80-7.70); Neutrophils % (A) 86.3 %; Platelet Count 268 X 10*3/uL (140-440); RBC 4.73 X 10*6/uL (4.40-5.60); RDW 13.3 % (11.5-14.5); WBC 7.34 X 10*3/uL (4.50-10.00)
--- NOTE | 2024-11-03 10:31 | P.PN ---
Subjective Progress Note Date: 11/03/24 Principal diagnosis: Acute COPD exacerbation Upper GI bleed Small bowel obstruction Chronic pain syndrome Sleep disordered breathing and sleep apnea History of pulmonary embolism COPD Hypertension hypertensive cardiovascular disease Type 2 diabetes mellitus with hyperglycemia uncontrolled Patient with history of using direct oral anticoagulant which is on hold November 03, 2024, patient seen eval examined during rounds labs reviewed medications and care plan discussed, respiratory status slightly better patient remains on IV steroids bronchodilator medications reviewed currently patient is on DuoNeb, blood pressure control with Norvasc along with high intensity stat ins, patient has been on Coreg Neurontin pain control with Dilaudid every 6 hourly as needed 0.5 mg patient also getting Lantus and short acting insulin Solu-Medrol is every 12 hours patient has ongoing cough congestion shortness of breath, will add broad-spectrum antibiotics with Rocephin tracheobronchitis. Saturation 98%, blood pressure is stable patient does have ongoing wheezing and thick sputum production but mostly swallows it unable to get any samples November 02, 2024, patient seen eval examined during rounds labs reviewed medications or care plan discussed, respiratory status overall not much changes still have ongoing cough congestion shortness of breath wheezing is present, patient has generalized aches and pain has been getting Dilaudid discussed with him at length we will taper Dilaudid in next 24 hours labs from today reviewed sodium is 132 potassium 3.8 BUN/creatinine within normal limit, CBC reviewed WBC count is 5.8 hemoglobin down to 11.8, patient remains on Protonix General Surgery following possible endoscopy Monday 58-year-old morbidly obese male presented emergency department with 3 episodes of bloody emesis along with central abdominal pain which is pretty much in central also some pain was going to the lateral right flank which is resolved, lately he has a bowel movement with a streak of blood came to the hospital for further evaluation. Prior medical history significant for colon cancer 3 years ago patient is in remission, on specific questioning patient denies any fever chills lightheaded dizziness denies any shortness of breath denies any chest p ain denies any loss of consciousness dizziness lightheadedness. His labs were significant for CBC fairly within normal limit, coags within normal limit, sodium 135 potassium 4.3 BUN/creatinine 11/0.5, glucose 199 chemistry otherwise fairly within normal limit, glucose is 196. Chest x-ray seen for low lung volumes, CT scan of the abdominal pelvis mildly distended small bowel likely ileus, fluid in the colon suggestive of diarrhea Active medical problems include type 2 diabetes mellitus with hyperglycemia on short and long-acting insulin, chronic neuropathy, chronic pain syndrome, coronary artery disease, GERD, heart failure, chronic asthma history of pulmonary embolism sleep disordered breathing and sleep apnea has been noncompliant with CPAP machine Objective - Vital Signs Vital signs: Vital Signs Temp 97.7 F 11/03/24 06:45 Pulse 86 11/03/24 06:45 Resp 16 11/03/24 06:45 BP 136/72 11/03/24 06:45 Pulse Ox 98 11/03/24 06:45 FiO2 Intake & Output 11/02/24 11/03/24 11/03/24 18:59 06:59 18:59 Intake Total 3680 Balance 3680 Intake: Oral 3680 Other: Voiding Method Toilet Toilet # Voids 5 2 # Bowel Movements 1 - Exam - Constitutional General appearance: average body habitus, cooperative, disheveled - EENT Eyes: EOMI, PERRLA ENT: normal oropharynx Ears: bilateral: normal - Neck Neck: normal ROM Carotids: bilateral: upstroke normal Thyroid: bilateral: normal size - Respiratory Respiratory: bilateral: CTA - Cardiovascular Rhythm: regular Heart sounds: normal: S1, S2 - Gastrointestinal General gastrointestinal: normal bowel sounds, soft - Integumentary Integumentary: normal turgor - Neurologic Neurologic: CNII-XII intact - Musculoskeletal Musculoskeletal: gait normal, generalized weakness, strength equal bilaterally - Psychiatric Psychiatric: A&O x's 3, appropriate affect, intact judgment & insight - Labs CBC & Chem 7: 11/03/24 06:10 11/02/24 03:07 Labs: Abnormal Lab Results - Last 24 Hours (Table) 11/02/24 11/02/24 11/02/24 Range/Units 12:06 17:07 20:16 POC Glucose (mg/dL) 195 H 261 H 343 H (70-110) mg/dL 11/03/24 Range/Units 06:45 POC Glucose (mg/dL) 216 H (70-110) mg/dL Assessment and Plan Assessment: Acute COPD exacerbation Tracheobronchitis Upper GI bleed Small bowel obstruction Chronic pain syndrome Sleep disordered breathing and sleep apnea History of pulmonary embolism COPD Hypertension hypertensive cardiovascular disease Type 2 diabetes mellitus with hyperglycemia uncontrolled Patient with history of using direct oral anticoagulant which is on hold Plan: Add bronchodilators and IV steroids IV Rocephin and obtain sputum sample Continue monitor hemoglobin close Continue home medicine PPI GI consult for upper and lower endoscopy Pain control Continue to follow hemoglobin closely
--- NOTE | 2024-11-03 10:39 | P.PN ---
Subjective Progress Note Date: 11/03/24 Patient remained stable. He shows no signs of acute GI bleed. His hemoglobin is 13.6. On exam vital signs appear stable. Patient schedule upper and lower endoscopy tomorrow. Objective - Vital Signs Vital signs: Vital Signs Temp 97.7 F 11/03/24 06:45 Pulse 86 11/03/24 06:45 Resp 16 11/03/24 06:45 BP 136/72 11/03/24 06:45 Pulse Ox 98 11/03/24 06:45 FiO2 Intake & Output 11/02/24 11/03/24 11/03/24 18:59 06:59 18:59 Intake Total 3680 560 Balance 3680 560 Intake: Oral 3680 560 Other: Voiding Method Toilet Toilet # Voids 5 2 # Bowel Movements 1 - Labs CBC & Chem 7: 11/03/24 06:10 11/02/24 03:07 Labs: Abnormal Lab Results - Last 24 Hours (Table) 11/02/24 11/02/24 11/02/24 Range/Units 12:06 17:07 20:16 MPV (9.5-12.2) FL Lymphocytes # (0.90-5.00) X 10*3/uL Eosinophils # (0.04-0.35) X 10*3/uL POC Glucose (mg/dL) 195 H 261 H 343 H (70-110) mg/dL 11/03/24 11/03/24 Range/Units 06:10 06:45 MPV 9.0 L (9.5-12.2) FL Lymphocytes # 0.73 L (0.90-5.00) X 10*3/uL Eosinophils # 0 L (0.04-0.35) X 10*3/uL POC Glucose (mg/dL) 216 H (70-110) mg/dL
[2024-11-03 12:01] LABS: Glucose,Whole Blood 196 mg/dL (70-110)
[2024-11-03 16:59] LABS: Glucose,Whole Blood 178 mg/dL (70-110)
[2024-11-03 20:32] LABS: Glucose,Whole Blood 165 mg/dL (70-110)
[2024-11-04 06:03] LABS: Basophils # (A) 0.03 10*3/uL (0.00-0.10); Basophils % (A) 0.5 %; Eosinophils # (A) 0.01 10*3/uL (0.04-0.35); Eosinophils % (A) 0.2 %; HGB 13.1 g/dL (13.0-17.0); Lymphocytes % (A) 15.3 %; MCHC 34.5 g/dL (32.0-37.0); MCV 84.3 fL (80.0-97.0); Mean Platelet Volume 9.4 fL (9.5-12.2); Monocytes # (A) 0.27 10*3/uL (0.20-1.00); Monocytes % (A) 4.1 %; Neutrophils % (A) 78.2 %; Platelet Count 264 10*3/uL (140-440); RBC 4.51 10*6/uL (4.40-5.60); RDW 13.6 % (11.5-14.5); WBC 6.52 10*3/uL (4.50-10.00)
[2024-11-04 07:28] LABS: Glucose,Whole Blood 176 mg/dL (70-110)
--- NOTE | 2024-11-04 10:03 | P.PN ---
Subjective Progress Note Date: 11/04/24 Principal diagnosis: Acute COPD exacerbation Upper GI bleed Small bowel obstruction Chronic pain syndrome Sleep disordered breathing and sleep apnea History of pulmonary embolism COPD Hypertension hypertensive cardiovascular disease Type 2 diabetes mellitus with hyperglycemia uncontrolled Patient with history of using direct oral anticoagulant which is on hold November 04, 2024, patient seen eval examined during rounds labs reviewed medications and care plan discussed, respiratory status continue to improve slowly still have intermittent wheezing cough congestion patient remains on steroids bronchodilators antibiotics, maximal medical therapy with short and long-acting insulin and heart failure, no overt signs of bleeding is seen, labs from today including CBC reviewed hemoglobin is 13.1 patient is scheduled for upper and lower endoscopy later on today, blood glucose 170s November 03, 2024, patient seen eval examined during rounds labs reviewed medications and care plan discussed, respiratory status slightly better patient remains on IV steroids bronchodilator medications reviewed currently patient is on DuoNeb, blood pressure control with Norvasc along with high intensity statins, patient has been on Coreg Neurontin pain control with Dilaudid every 6 hourly as needed 0.5 mg patient also getting Lantus and short acting insulin Solu-Medrol is every 12 hours patient has ongoing cough congestion shortness of breath, will add broad-spectrum antibiotics with Rocephin tracheobronchitis. Saturation 98%, blood pressure is stable patient does have ongoing wheezing and thick sputum production but mostly swallows it unable to get any samples November 02, 2024, patient seen eval examined during rounds labs reviewed medications or care plan discussed, respiratory status overall not much changes still have ongoing cough congestion shortness of breath wheezing is present, patient has generalized aches and pain has been getting Dilaudid discussed with him at length we will taper Dilaudid in next 24 hours labs from today reviewed sodium is 132 potassium 3.8 BUN/creatinine within normal limit, CBC reviewed WBC count is 5.8 hemoglobin down to 11.8, patient remains on Protonix General Surgery following possible endoscopy Monday 58-year-old morbidly obese male presented emergency department with 3 episodes of bloody emesis along with central abdominal pain which is pretty much in central also some pain was going to the lateral right flank which is resolved, lately he has a bowel movement with a streak of blood came to the hospital for further evaluation. Prior medical history significant for colon cancer 3 years ago patient is in remission, on specific questioning patient denies any fever chills lightheaded dizziness denies any shortness of breath denies any chest pain denies any loss of consciousness dizziness lightheadedness. His labs were significant for CBC fairly within normal limit, coags within normal limit, sodium 135 potassium 4.3 BUN/creatinine 11/0.5, glucose 199 chemistry otherwise fairly within normal limit, glucose is 196. Chest x-ray seen for low lung volumes, CT scan of the abdominal pelvis mildly distended small bowel likely ileus, fluid in the colon suggestive of diarrhea Active medical problems include type 2 diabetes mellitus with hyperglycemia on short and long-acting insulin, chronic neuropathy, chronic pain syndrome, coronary artery disease, GERD, heart failure, chronic asthma history of pulmonary embolism sleep disordered breathing and sleep apnea has been noncompliant with CPAP machine Objective - Vital Signs Vital signs: Vital Signs Temp 98.4 F 11/04/24 07:47 Pulse 77 11/04/24 07:47 Resp 19 11/04/24 07:47 BP 151/87 11/04/24 07:47 Pulse Ox 99 11/04/24 07:47 FiO2 Intake & Output 11/03/24 11/04/24 11/04/24 18:59 06:59 18:59 Intake Total 3180 Balance 3180 Intake: Oral 3180 Other: Voiding Method Toilet # Voids 5 1 # Bowel Movements 8 - Exam - Constitutional General appearance: average body habitus, cooperative, disheveled - EENT Eyes: EOMI, PERRLA ENT: normal oropharynx Ears: bilateral: normal - Neck Neck: normal ROM Carotids: bilateral: upstroke normal Thyroid: bilateral: normal size - Respiratory Respiratory: bilateral: CTA - Cardiovascular Rhythm: regular Heart sounds: normal: S1, S2 - Gastrointestinal General gastrointestinal: normal bowel sounds, soft - Integumentary Integumentary: normal turgor - Neurologic Neurologic: CNII-XII intact - Musculoskeletal Musculoskeletal: gait normal, generalized weakness, strength equal bilaterally - Psychiatric Psychiatric: A&O x's 3, appropriate affect, intact judgment & insight - Labs CBC & Chem 7: 11/04/24 05:36 11/02/24 03:07 Labs: Abnormal Lab Results - Last 24 Hours (Table) 11/03/24 11/03/24 11/03/24 Range/Units 12:00 16:57 20:30 Hct (39.6-50.0) % MPV (9.5-12.2) fL Immature Gran # (0.00-0.04) 10*3/uL Eosinophils # (0.04-0.35) 10*3/uL POC Glucose (mg/dL) 196 H 178 H 165 H (70-110) mg/dL 11/04/24 11/04/24 Range/Units 05:36 07:14 Hct 38.0 L (39.6-50.0) % MPV 9.4 L (9.5-12.2) fL Immature Gran # 0.11 H (0.00-0.04) 10*3/uL Eosinophils # 0.01 L (0.04-0.35) 10*3/uL POC Glucose (mg/dL) 176 H (70-110) mg/dL Assessment and Plan Assessment: Acute COPD exacerbation Tracheobronchitis Upper GI bleed Small bowel obstruction Chronic pain syndrome Sleep disordered breathing and sleep apnea History of pulmonary embolism COPD Hypertension hypertensive cardiovascular disease Type 2 diabetes mellitus with hyperglycemia uncontrolled Patient with history of using direct oral anticoagulant which is on hold Plan: Continue bronchodilators and IV steroids IV Rocephin and obtain sputum sample cough is nonproductive now unable to obtain Continue monitor hemoglobin close Continue home medicine PPI GI consult for upper and lower endoscopy Pain control Continue to follow hemoglobin closely Time with Patient: Greater than 30
[2024-11-04 12:38] LABS: Glucose,Whole Blood 211 mg/dL (70-110)
[2024-11-04] MEDS ORDERED: LIDOCAINE 2% (PF) 20 MG/ML 5 ML VIAL ONE (14:48)
[2024-11-04] MEDS ORDERED: PROPOFOL 10 MG/ML 20 ML VIAL IV ONE (14:48)
[2024-11-04] MEDS: IV FLUID CONTINUATION 1,000 ML IV ONE ×2 (14:52→15:06)
--- NOTE | 2024-11-04 14:52 | P.PN ---
Subjective Progress Note Date: 11/04/24 SURGICAL PROGRESS NOTE CHIEF COMPLAINT: GI bleed HISTORY OF PRESENT ILLNESS: Patient scheduled for EGD and colonoscopy today. Tolerated bowel prep. No signs of bleeding. Hemoglobin 13. Vital stable PHYSICAL EXAM: VITAL SIGNS: Reviewed. GENERAL: Well-developed in no acute distress. ABDOMEN: Soft. Nondistended. Nontender. NEUROLOGIC: Alert and oriented. Cranial nerves II through XII grossly intact. ASSESSMENT: 1. Acute GI bleed PLAN: - Patient scheduled for EGD and colonoscopy today Physician [employer] note has been reviewed by physician. Signing provider agrees with the documented findings, assessment, and plan of care. Objective - Vital Signs Vital signs: Vital Signs Temp 98 F 11/04/24 12:45 Pulse 90 11/04/24 12:45 Resp 17 11/04/24 12:45 BP 124/71 11/04/24 12:45 Pulse Ox 96 11/04/24 12:45 FiO2 Intake & Output 11/03/24 11/04/24 11/04/24 18:59 06:59 18:59 Intake Total 3180 Balance 3180 Intake: Oral 3180 Other: Voiding Method Toilet # Voids 5 1 # Bowel Movements 8 - Labs CBC & Chem 7: 11/04/24 05:36 11/02/24 03:07 Labs: Abnormal Lab Results - Last 24 Hours (Table) 11/03/24 11/03/24 11/04/24 Range/Units 16:57 20:30 05:36 Hct 38.0 L (39.6-50.0) % MPV 9.4 L (9.5-12.2) fL Immature Gran # 0.11 H (0.00-0.04) 10*3/uL Eosinophils # 0.01 L (0.04-0.35) 10*3/uL POC Glucose (mg/dL) 178 H 165 H (70-110) mg/dL 11/04/24 11/04/24 Range/Units 07:14 12:16 Hct (39.6-50.0) % MPV (9.5-12.2) fL Immature Gran # (0.00-0.04) 10*3/uL Eosinophils # (0.04-0.35) 10*3/uL POC Glucose (mg/dL) 176 H 211 H (70-110) mg/dL
--- NOTE | 2024-11-04 15:12 | P.OP ---
Date of Procedure: 11/04/24 Preoperative Diagnosis: GI bleed Postoperative Diagnosis: Antral gastritis Small sliding hiatal hernia Mild esophagitis Normal colon status post left colectomy Procedure(s) Performed: Colonoscopy Anesthesia: MAC Surgeon: Augie Weiss Pathology: other (Antrum, esophagus) Condition: stable Disposition: PACU Description of Procedure: Patient was placed on the endoscopy table in the lateral position. The patient received IV sedation. The Gastroflux oropharynx passed in the esophagus into the stomach. Scope was placed with the pylorus. The 1st and 2nd portion of the duodenum appeared normal. Scope was then brought back to the antrum this was mildly Flaim. A biopsy was performed. The scope was then retroflexed and the Mainer of the stomach appeared normal. The GE junction was at 38 cm. There is there was a small sliding hiatal hernia. The distal esophagus was mildly inflamed. The proximal esophagus appeared normal. Scope withdrawn the patient. Next digital rectal exam was performed. This revealed no abnormalities. The flexible colonoscope was then placed patient anus and passed throughout the entire colon. The ileocecal valve was visualized. The cecum, ascending and transverse colon appeared normal. The descending colon appeared normal. The patient had previous left colectomy. The colon rectal anastomosis visualized. This appeared normal. The scope back in the rectum this appeared normal. Scope withdrawn the patient. There is no evidence of any active GI bleed. This appears soon the patient may have anemia due to esophagitis.
[2024-11-04 17:08] LABS: Glucose,Whole Blood 206 mg/dL (70-110)
[2024-11-04 20:40] LABS: Glucose,Whole Blood 320 mg/dL (70-110)
[2024-11-04] MEDS: INSULIN GLARGINE (LANTUS) 100 UNIT/ML SYR SQ PRN (21:39)
[2024-11-05] MEDS: LACTATED RINGERS 1,000 ML IV SCH (06:02)
[2024-11-05 06:37] LABS: Basophils # (A) 0.04 10*3/uL (0.00-0.10); Basophils % (A) 0.5 %; Eosinophils # (A) 0.01 10*3/uL (0.04-0.35); Eosinophils % (A) 0.1 %; HCT 39.5 % (39.6-50.0); HGB 13.8 g/dL (13.0-17.0); Lymphocytes # (A) 1.09 10*3/uL (0.90-5.00); Lymphocytes % (A) 14.9 %; MCH 29.6 pg (27.0-32.0); MCHC 34.9 g/dL (32.0-37.0); MCV 84.8 fL (80.0-97.0); Mean Platelet Volume 9.1 fL (9.5-12.2); Monocytes # (A) 0.42 10*3/uL (0.20-1.00); Monocytes % (A) 5.7 %; Neutrophils # (A) 5.74 10*3/uL (1.80-7.70); Neutrophils % (A) 78.3 %; Platelet Count 277 10*3/uL (140-440); RBC 4.66 10*6/uL (4.40-5.60); RDW 13.6 % (11.5-14.5); WBC 7.34 10*3/uL (4.50-10.00)
[2024-11-05 07:38] LABS: Glucose,Whole Blood 266 mg/dL (70-110)
[2024-11-05 08:07] LABS: African American GFR (CKD) >90 (>60 ml/min/1.73 sqM); Anion Gap 15 mmol/L; Blood Urea Nitrogen 14 mg/dL (9-20); Calcium 9.7 mg/dL (8.4-10.2); Carbon Dioxide 16 mmol/L (22-30); Chloride 106 mmol/L (98-107); Glucose 261 mg/dL (74-99); Non-African American GFR(CKD) >90 (>60 ml/min/1.73 sqM); Potassium 4.7 mmol/L (3.5-5.1); Sodium 137 mmol/L (137-145)
[2024-11-05 08:16] VITALS: PULSE 91; RESP 19; TEMP 98.1
[2024-11-05 08:18] VITALS: BP 167/88
--- NOTE | 2024-11-05 10:42 | P.DS ---
Providers Date of admission: 10/31/24 06:16 Expected date of discharge: 11/05/24 Attending physician: González Muñiz Consults: 10/31/24 23:01 Consult Physician Routine Consulting Provider: Augie Weiss Consult Reason/Comments: abdominal pain Do you want consulting provider notified?: Yes 10/31/24 23:04 Consult Physician Routine Consulting Provider: Clive Fritz Consult Reason/Comments: radha Do you want consulting provider notified?: Yes 11/01/24 10:36 Consult Physician Routine Consulting Provider: Rachael Arora Consult Reason/Comments: Gi bleed Do you want consulting provider notified?: Yes Primary care physician: Stated None Hospital Course: Today's exam he is awake and alert denies any cough or sputum production able to ambulate shortness of breath improved not wheezing slept well from today reviewed CBC chemistry fairly within normal limit sugar is 266 patient expresses desire to go home, being discharged on same home medicine, patient finished course of antibiotics and steroids, also has endoscopy including EGD and colonoscopy, EGD showed antral gastritis, small sliding hiatal hernia, mild esophagitis, colonoscopy revealed status post left colectomy November 04, 2024, patient seen eval examined during rounds labs reviewed medications and care plan discussed, respiratory status continue to improve slowly still have intermittent wheezing cough congestion patient remains on steroids bronchodilators antibiotics, maximal medical therapy with short and long-acting insulin and heart failure, no overt signs of bleeding is seen, labs from today including CBC reviewed hemoglobin is 13.1 patient is scheduled for upper and lower endoscopy later on today, blood glucose 170s November 03, 2024, patient seen eval examined during rounds labs reviewed medicatio ns and care plan discussed, respiratory status slightly better patient remains on IV steroids bronchodilator medications reviewed currently patient is on DuoNeb, blood pressure control with Norvasc along with high intensity statins, patient has been on Coreg Neurontin pain control with Dilaudid every 6 hourly as needed 0.5 mg patient also getting Lantus and short acting insulin Solu-Medrol is every 12 hours patient has ongoing cough congestion shortness of breath, will add broad-spectrum antibiotics with Rocephin tracheobronchitis. Saturation 98%, blood pressure is stable patient does have ongoing wheezing and thick sputum production but mostly swallows it unable to get any samples November 02, 2024, patient seen eval examined during rounds labs reviewed medications or care plan discussed, respiratory status overall not much changes still have ongoing cough congestion shortness of breath wheezing is present, patient has generalized aches and pain has been getting Dilaudid discussed with him at length we will taper Dilaudid in next 24 hours labs from today reviewed sodium is 132 potassium 3.8 BUN/creatinine within normal limit, CBC reviewed WBC count is 5.8 hemoglobin down to 11.8, patient remains on Protonix General Surgery following possible endoscopy Monday 58-year-old morbidly obese male presented emergency department with 3 episodes of bloody emesis along with central abdominal pain which is pretty much in central also some pain was going to the lateral right flank which is resolved, lately he has a bowel movement with a streak of blood came to the hospital for further evaluation. Prior medical history significant for colon cancer 3 years ago patient is in remission, on specific questioning patient denies any fever chills lightheaded dizziness denies any shortness of breath denies any chest pain denies any loss of consciousness dizziness lightheadedness. His labs were significant for CBC fairly within normal limit, coags within normal limit, sodium 135 potassium 4.3 BUN/creatinine 11/0.5, glucose 199 chemistry otherwise fairly within normal limit, glucose is 196. Chest x-ray seen for low lung volumes, CT scan of the abdominal pelvis mildly distended small bowel likely ileus, fluid in the colon suggestive of diarrhea Active medical problems include type 2 diabetes mellitus with hyperglycemia on short Procedures: EGD and colonoscopy on November 05, 2024 Patient Condition at Discharge: Good Plan - Discharge Summary Discharge Rx Participant: Yes New Discharge Prescriptions: No Action Insulin Lispro [humaLOG Kwikpen] See Protocol SQ ACHS Insulin Glargine,Hum.rec.anlog [Lantus Solostar Pen] 34 units SQ DAILY methocarbamoL [Robaxin-750] 750 mg PO TID Gabapentin 600 mg PO TID Nitroglycerin Sl Tabs [Nitrostat] 0.4 mg SUBLINGUAL Q5M PRN PRN Reason: Chest Pain Insulin Glargine,Hum.rec.anlog [Lantus Solostar Pen] 34 units SQ HS PRN PRN Reason: Blood Sugar - High amLODIPine [Norvasc] 5 mg PO DAILY Atorvastatin [Lipitor] 20 mg PO DAILY carvediloL [Coreg] 6.25 mg PO BID Losartan [Cozaar] 50 mg PO DAILY Omeprazole [PriLOSEC] 40 mg PO DAILY Insulin Lispro [humaLOG Kwikpen] 10 unit SQ TID-W/MEALS oxyCODONE-APAP 5-325MG [Percocet 5-325 mg] 1 tab PO QID Apixaban [Eliquis] 5 mg PO BID Isosorbide Mononitrate ER [Imdur] 30 mg PO DAILY Discharge Medication List Insulin Lispro [humaLOG Kwikpen] See Protocol SQ ACHS 06/16/21 [History] Insulin Glargine,Hum.rec.anlog [Lantus Solostar Pen] 34 units SQ DAILY 10/20/22 [History] Gabapentin 600 mg PO TID 03/25/24 [History] Insulin Lispro [humaLOG Kwikpen] 10 unit SQ TID-W/MEALS 03/25/24 [History] methocarbamoL [Robaxin-750] 750 mg PO TID 03/25/24 [History] oxyCODONE-APAP 5-325MG [Percocet 5-325 mg] 1 tab PO QID 04/29/24 [History] Nitroglycerin Sl Tabs [Nitrostat] 0.4 mg SUBLINGUAL Q5M PRN 06/14/24 [History] Apixaban [Eliquis] 5 mg PO BID 10/31/24 [History] Atorvastatin [Lipitor] 20 mg PO DAILY 10/31/24 [History] Insulin Glargine,Hum.rec.anlog [Lantus Solostar Pen] 34 units SQ HS PRN 10/31/24 [History] Isosorbide Mononitrate ER [Imdur] 30 mg PO DAILY 10/31/24 [History] Losartan [Cozaar] 50 mg PO DAILY 10/31/24 [History] Omeprazole [PriLOSEC] 40 mg PO DAILY 10/31/24 [History] amLODIPine [Norvasc] 5 mg PO DAILY 10/31/24 [History] carvediloL [Coreg] 6.25 mg PO BID 10/31/24 [History] Follow up Appointment(s)/Referral(s): None,Stated [Primary Care Provider] - 1-2 days González Muñiz MD [STAFF PHYSICIAN] - 1 Week Discharge Disposition: HOME SELF-CARE
== END 2024-11-05 11:13 | disposition home or self-care (01) ==
LOC: EC 03:00 → 5NMEDONC 06:16
PROVIDERS: ADMIT Family Medicine; ATTEND Family Medicine
DX: K92.0 Hematemesis (principal); K21.00 Gastro-esophageal reflux disease with esophagitis, without bleeding; K29.50 Unspecified chronic gastritis without bleeding; K56.609 Unspecified intestinal obstruction, unspecified as to partial versus complete obstruction; J44.1 Chronic obstructive pulmonary disease with (acute) exacerbation; J40 Bronchitis, not specified as acute or chronic; E11.65 Type 2 diabetes mellitus with hyperglycemia; K44.9 Diaphragmatic hernia without obstruction or gangrene; E11.40 Type 2 diabetes mellitus with diabetic neuropathy, unspecified; E78.5 Hyperlipidemia, unspecified; G47.33 Obstructive sleep apnea (adult) (pediatric); G89.4 Chronic pain syndrome; I11.0 Hypertensive heart disease with heart failure; I25.10 Atherosclerotic heart disease of native coronary artery without angina pectoris; I25.2 Old myocardial infarction; I34.1 Nonrheumatic mitral (valve) prolapse; I50.9 Heart failure, unspecified; E66.01 Morbid (severe) obesity due to excess calories; Z79.01 Long term (current) use of anticoagulants; Z79.4 Long term (current) use of insulin; Z79.899 Other long term (current) drug therapy; Z85.038 Personal history of other malignant neoplasm of large intestine; Z86.711 Personal history of pulmonary embolism; Z87.11 Personal history of peptic ulcer disease; Z90.49 Acquired absence of other specified parts of digestive tract; Z91.199 Patient's noncompliance with other medical treatment and regimen due to unspecified reason; Z88.1 Allergy status to other antibiotic agents; Z88.5 Allergy status to narcotic agent; Z88.8 Allergy status to other drugs, medicaments and biological substances; Z79.891 Long term (current) use of opiate analgesic
CPT/HCPCS: 96376 ×7; 96365; 96366; 96375 ×2; 96361; 99291; 36415; 94640 ×7; 93005; 86900; 86901; 88305; 80051; 80053; 80048 ×2; 82565; 82803; 82009; 83605; 83690; 83735; 84100; 82947; 84520; 84484; 85025 ×4; 85027 ×2; 85610; 85730; 86850; 82272; 81003; 83036; 71045; 74177; 45378; 43239; G0378 ×6; J2405; J0696 ×3; J1171 ×7; J2704; Q9967; J2003; J2919 ×4; J2470 ×6; J1308

== ENCOUNTER 2024-11-08 17:37 | Emergency (ER) | payer OTHER ==
[2024-11-08 17:56] VITALS: TEMP 98.6
--- NOTE | 2024-11-08 18:25 | ED ---
Back Pain HPI - General Chief Complaint: Back Pain/Injury Stated Complaint: back injury Time Seen by Provider: 11/08/24 18:06 Source: patient, RN notes reviewed, old records reviewed Mode of arrival: ambulatory Limitations: no limitations - History of Present Illness Initial Comments: This is a 59-year-old male to the ER for severe back pain known to our facility for back pain coming in for medication refill chronic pain states he recent fall but does not think that is really contributing to his pain states pain is more his baseline pain just worse MD Complaint: back pain, fall -: days(s) Similar Symptoms Previously: Yes Place: home Radiation: none Severity: moderate, severe Severity scale (1-10): 10 Quality: sharp Consistency: constant Improves With: none Worsens With: none Context: while lifting, turning/twisting, bending, fall Associated Symptoms: denies other symptoms - Related Data Home Medications Medication Instructions Recorded Confirmed Insulin Lispro [humaLOG Kwikpen] See Protocol SQ ACHS 06/16/21 10/31/24 Insulin Glargine,Hum.rec.anlog 34 units SQ DAILY 10/20/22 10/31/24 [Lantus Solostar Pen] Gabapentin 600 mg PO TID 03/25/24 10/31/24 Insulin Lispro [humaLOG Kwikpen] 10 unit SQ TID-W/MEALS 03/25/24 10/31/24 methocarbamoL [Robaxin-750] 750 mg PO TID 03/25/24 10/31/24 oxyCODONE-APAP 5-325MG [Percocet 1 tab PO QID 04/29/24 10/31/24 5-325 mg] Nitroglycerin Sl Tabs [Nitrostat] 0.4 mg SUBLINGUAL Q5M PRN 06/14/24 10/31/24 Apixaban [Eliquis] 5 mg PO BID 10/31/24 10/31/24 Atorvastatin [Lipitor] 20 mg PO DAILY 10/31/24 10/31/24 Insulin Glargine,Hum.rec.anlog 34 units SQ HS PRN 10/31/24 10/31/24 [Lantus Solostar Pen] Isosorbide Mononitrate ER [Imdur] 30 mg PO DAILY 10/31/24 10/31/24 Losartan [Cozaar] 50 mg PO DAILY 10/31/24 10/31/24 Omeprazole [PriLOSEC] 40 mg PO DAILY 10/31/24 10/31/24 amLODIPine [Norvasc] 5 mg PO DAILY 10/31/24 10/31/24 carvediloL [Coreg] 6.25 mg PO BID 10/31/24 10/31/24 Allergies Allergy/AdvReac Type Severity Reaction Status Date / Time doxycycline Allergy Swelling Verified 10/31/24 07:34 ketorolac tromethamine Allergy Rash/Hives Verified 10/31/24 07:34 [From Toradol] morphine Allergy Rash/Hives Verified 10/31/24 07:34 metoclopramide HCl AdvReac Dystonic Verified 10/31/24 07:34 [From Reglan] Reaction prochlorperazine edisylate AdvReac Dystonic Verified 10/31/24 07:34 [From Compazine] Reaction prochlorperazine maleate AdvReac Dystonic Verified 10/31/24 07:34 [From Compazine] Reaction Review of Systems ROS Statement: Those systems with pertinent positive or pertinent negative responses have been documented in the HPI. ROS Other: All systems not noted in ROS Statement are negative. Past Medical History Past Medical History: Asthma, Coronary Artery Disease (CAD), Cancer, Chest Pain / Angina, Diabetes Mellitus, GERD/Reflux, GI Bleed, Hyperlipidemia, Hypertension, Myocardial Infarction ([place]), Mitral Valve Prolapse (MVP), Pulmonary Embolus (PE), Sleep Apnea/CPAP/BIPAP Additional Past Medical History / Comment(s): Asthmatic bronchitis-chronic, IDDM type II, neuropathy bilateral feet, lower and upper GI bleeds, PUD, diverticulitis, colectomy d/t benign mass/intusseption, BPH, renal cysts, nephrolithiais, UTI with sepsis, chronic back pain 2ndary to herniated lumbar discs/sciatica, JARED does not use his Cpap, MVP, murmur, chronic dysphagia, colon cancer Last Myocardial Infarction Date:: 2011 History of Any Multi-Drug Resistant Organisms: C-DIFF, MRSA Date of last positivie culture/infection: 2015 MDRO Source:: left axilla Past Surgical History: Appendectomy, Back Surgery, Cholecystectomy, Heart Catheterization, Hernia Repair, Orthopedic Surgery Additional Past Surgical History / Comment(s): Lumbar decompression/fusion/laminectomy, spinal stimulator, T lift procedure, L inguinal hernia repair, multiple ESWLs/stents/double J caths, colonoscopy, 02/2020 colectomy, EGDs for food obstructions and dilations, NERVE STIMULATOR Past Anesthesia/Blood Transfusion Reactions: No Reported Reaction Past Psychological History: No Psychological Hx Reported Smoking Status: Never smoker Past Alcohol Use History: None Reported Past Drug Use History: None Reported - Past Family History Father Family Medical History: Chest Pain / Angina Additional Family Medical History / Comment(s): "lung problems" Mother Family Medical History: Blood Disorder, Cancer, Chest Pain / Angina, Congestive Heart Failure (CHF), Osteoarthritis (OA), Thyroid Disorder Additional Family Medical History / Comment(s): "obstetrician/gynecologist cancer" blood clots General Exam Limitations: no limitations General appearance: alert, in no apparent distress Head exam: Present: atraumatic, normocephalic, normal inspection Eye exam: Present: normal appearance, PERRL, EOMI. Absent: scleral icterus, conjunctival injection, periorbital swelling ENT exam: Present: normal exam, mucous membranes moist Neck exam: Present: normal inspection. Absent: tenderness, meningismus, lymphadenopathy Respiratory exam: Present: normal lung sounds bilaterally. Absent: respiratory distress, wheezes, rales, rhonchi, stridor Cardiovascular Exam: Present: regular rate, normal rhythm, normal heart sounds. Absent: systolic murmur, diastolic murmur, rubs, gallop, clicks GI/Abdominal exam: Present: soft, normal bowel sounds. Absent: distended, tenderness, guarding, rebound, rigid Extremities exam: Present: normal inspection, full ROM, normal capillary refill. Absent: tenderness, pedal edema, joint swelling, calf tenderness Back exam: Present: normal inspection Neurological exam: Present: alert, oriented X3, CN II-XII intact Psychiatric exam: Present: normal affect, normal mood Skin exam: Present: warm, dry, intact, normal color. Absent: rash Course Vital Signs 11/08/24 11/08/24 17:54 19:19 Temperature 98.6 F Pulse Rate 56 L 126 H Respiratory 18 20 Rate Blood Pressure 149/103 149/91 O2 Sat by Pulse 100 96 Oximetry - Reevaluation(s) Reevaluation #1: Medical records reviewed Reevaluation #2: Patient symptoms resolved feels well Reevaluation #3: Patient informed of results and questions answered Reevaluation #4: Was pt. sent in by a medical professional or institution (MAGGIE Oliveros, [employer], urgent care, hospital, or retirement...) When possible be specific @ -no Did you speak to anyone other than the patient for history (EMS, parent, family, police, friend...)? What history was obtained from this source @ -no Did you review nursing and triage notes (agree or disagree)? Why? @ -agree Are old charts reviewed (outside hosp., previous admission, EMS record, old EKG, old radiological studies, urgent care reports/EKG's, retirement records)? Report findings @ -yes Differential Diagnosis (chest pain, altered mental status, abdominal pain women, abdominal pain men, vaginal bleeding, weakness, fever, dyspnea, syncope, headache, dizziness, GI bleed, back pain, seizure, CVA, palpatations, mental health, musculoskeletal)? @ -prior EKG interpreted by me (3pts min.). @ -no X-rays interpreted by me (1pt min.). @ -no CT interpreted by me (1pt min.). @ -no U/S interpreted by me (1pt. min.). @ -no What testing was considered but not performed or refused? (CT, X-rays, U/S, labs)? Why? @ -none What meds were considered but not given or refused? Why? @ -none Did you discuss the management of the patient with other professionals (professionals i.e. MAGGIE Oliveros, [employer], lab, RT, psych nurse, geriatric social work professor, admiralty lawyer, teacher, booking officer, case fitter)? Give summary @ -no Was smoking cessation discussed for >3mins.? @ -no Was critical care preformed (if so, how long)? @ -no Were there social determinants of health that impacted care today? How? (Vasiliy elessness, low income, unemployed, alcoholism, drug addiction, transportation, low edu. Level, literacy, decrease access to med. care, fpc, rehab)? @ -none Was there de-escalation of care discussed even if they declined (Discuss DNR or withdrawal of care, Hospice)? DNR status @ -no What co-morbidities impacted this encounter? (DM, HTN, Smoking, COPD, CAD, Cancer, CVA, ARF, Chemo, Hep., AIDS, mental health diagnosis, sleep apnea, morbid obesity)? @ -none Was patient admitted / discharged? Hospital course, mention meds given and route, prescriptions, significant lab abnormalities, going to OR and other pertinent info. @ -59-year-old male with acute on chronic back pain. Pain well-controlled here in the ER and he can be discharged home Discharge Undiagnosed new problem with uncertain prognosis? @ -no Drug Therapy requiring intensive monitoring for toxicity (Heparin, Nitro, Insulin, Cardizem)? @ -no Were any procedures done? @ -no Diagnosis/symptom? @ - Acute, or Chronic, or Acute on Chronic? @ -Acute Uncomplicated (without systemic symptoms) or Complicated (systemic symptoms)? @ -Complicated Side effects of treatment? @ -no Exacerbation, Progression, or Severe Exacerbation? @ -exacerbation Poses a threat to life or bodily function? How? (Chest pain, [place], [place], pneumonia, PE, COPD, DKA, ARF, appy, cholecystitis, CVA, Diverticulitis, Homicidal, Suicidal, threat to staff... and all critical care pts) @ -no Reevaluation #5: Differential Back Pain: Strain, zoster, cauda equina syndrome, epidural abscess, vertebral osteomyelitis, discitis, fracture, subluxation, disc herniation, DJD, spinal stenosis, dissection, AAA, pancreatitis, peptic ulcer disease, pyelonephritis, kidney stone, this is not meant to be an all-inclusive list. Medical Decision Making - Medical Decision Making 59-year-old male with acute on chronic back pain. Pain well-controlled here in the ER and he can be discharged home Disposition Clinical Impression: Chronic neck pain, Chronic pain, Acute on chronic back pain Disposition: HOME SELF-CARE Condition: Fair Instructions (If sedation given, give patient instructions): Acute Low Back Pain (ED) Is patient prescribed a controlled substance at d/c from ED?: No Referrals: González Muñiz MD [Primary Care Provider] - 1-2 days Time of Disposition: 18:20
[2024-11-08] MEDS: HYDROmorphone 1 MG/ML 1 ML SYRINGE IM STA (18:55)
[2024-11-08] MEDS: diphenhydrAMINE 50 MG CAP PO STA (18:55)
[2024-11-08 19:32] VITALS: BP 149/91; PULSE 126; RESP 20
== END 2024-11-08 19:51 | disposition home or self-care (01) ==
LOC: EC 17:37
DX: G89.29 Other chronic pain (principal); M54.9 Dorsalgia, unspecified; M54.2 Cervicalgia; Z88.6 Allergy status to analgesic agent; Z88.5 Allergy status to narcotic agent; Z88.8 Allergy status to other drugs, medicaments and biological substances; Z76.0 Encounter for issue of repeat prescription; Z79.01 Long term (current) use of anticoagulants; W19.XXXA Unspecified fall, initial encounter
CPT/HCPCS: 99283; 96372; J1171

== ENCOUNTER 2024-11-24 12:16 | Emergency (ER) | payer OTHER ==
[2024-11-24 12:40] LABS: Glucose,Whole Blood 209 mg/dL (70-110)
--- NOTE | 2024-11-24 12:43 | ED ---
Chest Pain HPI - General Source: patient, RN notes reviewed Mode of arrival: ambulatory Limitations: no limitations <Kain Zheng - Last Filed: 11/24/24 12:42> <Lamont Balbuena - Last Filed: 11/24/24 17:10> - General Chief Complaint: Chest Pain Stated Complaint: Chest pain Time Seen by Provider: 11/24/24 12:34 - History of Present Illness Initial Comments: Quick note: This is a 59-year-old male with history including CAD, AMI, DM and colon CA presenting for chest pain x 1 day. Patient describes pain as intermittent and squeezing/stabbing, radiating to back (01/16) and left shoulder. Also states that his blood sugar has been above 300 mg/dL and was recently hospitalized for DKA. Endorses having tremors and palpitations yesterday. Denies shortness of breath, dizziness, diaphoresis. (Kain Zheng) - Related Data Home Medications Medication Instructions Recorded Confirmed Insulin Lispro [humaLOG Kwikpen] See Protocol SQ ACHS 06/16/21 10/31/24 Insulin Glargine,Hum.rec.anlog 34 units SQ DAILY 10/20/22 10/31/24 [Lantus Solostar Pen] Gabapentin 600 mg PO TID 03/25/24 10/31/24 Insulin Lispro [humaLOG Kwikpen] 10 unit SQ TID-W/MEALS 03/25/24 10/31/24 methocarbamoL [Robaxin-750] 750 mg PO TID 03/25/24 10/31/24 oxyCODONE-APAP 5-325MG [Percocet 1 tab PO QID 04/29/24 10/31/24 5-325 mg] Nitroglycerin Sl Tabs [Nitrostat] 0.4 mg SUBLINGUAL Q5M PRN 06/14/24 10/31/24 Apixaban [Eliquis] 5 mg PO BID 10/31/24 10/31/24 Atorvastatin [Lipitor] 20 mg PO DAILY 10/31/24 10/31/24 Insulin Glargine,Hum.rec.anlog 34 units SQ HS PRN 10/31/24 10/31/24 [Lantus Solostar Pen] Isosorbide Mononitrate ER [Imdur] 30 mg PO DAILY 10/31/24 10/31/24 Losartan [Cozaar] 50 mg PO DAILY 10/31/24 10/31/24 Omeprazole [PriLOSEC] 40 mg PO DAILY 10/31/24 10/31/24 amLODIPine [Norvasc] 5 mg PO DAILY 10/31/24 10/31/24 carvediloL [Coreg] 6.25 mg PO BID 10/31/24 10/31/24 Allergies Allergy/AdvReac Type Severity Reaction Status Date / Time doxycycline Allergy Swelling Verified 11/24/24 12:38 ketorolac tromethamine Allergy Rash/Hives Verified 11/24/24 12:38 [From Toradol] morphine Allergy Rash/Hives Verified 11/24/24 12:38 metoclopramide HCl AdvReac Dystonic Verified 11/24/24 12:38 [From Reglan] Reaction prochlorperazine edisylate AdvReac Dystonic Verified 11/24/24 12:38 [From Compazine] Reaction prochlorperazine maleate AdvReac Dystonic Verified 11/24/24 12:38 [From Compazine] Reaction Review of Systems ROS Other: All systems not noted in ROS Statement are negative. <Kain Zheng - Last Filed: 11/24/24 12:42> ROS Other: All systems not noted in ROS Statement are negative. <Lamont Balbuena - Last Filed: 11/24/24 17:10> ROS Statement: Those systems with pertinent positive or pertinent negative responses have been documented in the HPI. Past Medical History Past Medical History: Asthma, Coronary Artery Disease (CAD), Cancer, Chest Pain / Angina, Diabetes Mellitus, GERD/Reflux, GI Bleed, Hyperlipidemia, Hypertension, Myocardial Infarction ([place]), Mitral Valve Prolapse (MVP), Pulmonary Embolus (PE), Sleep Apnea/CPAP/BIPAP Additional Past Medical History / Comment(s): Asthmatic bronchitis-chronic, IDDM type II, neuropathy bilateral feet, lower and upper GI bleeds, PUD, diverticulitis, colectomy d/t benign mass/intusseption, BPH, renal cysts, nephrolithiais, UTI with sepsis, chronic back pain 2ndary to herniated lumbar discs/sciatica, JARED does not use his Cpap, MVP, murmur, chronic dysphagia, colon cancer Last Myocardial Infarction Date:: 2011 History of Any Multi-Drug Resistant Organisms: C-DIFF, MRSA Date of last positivie culture/infection: 2016 MDRO Source:: left axilla Past Surgical History: Appendectomy, Back Surgery, Cholecystectomy, Heart Catheterization, Hernia Repair, Orthopedic Surgery Additional Past Surgical History / Comment(s): Lumbar decompression/fusion /laminectomy, spinal stimulator, T lift procedure, L inguinal hernia repair, multiple ESWLs/stents/double J caths, colonoscopy, 02/2020 colectomy, EGDs for food obstructions and dilations, NERVE STIMULATOR Past Anesthesia/Blood Transfusion Reactions: No Reported Reaction Past Psychological History: No Psychological Hx Reported Smoking Status: Never smoker Past Alcohol Use History: None Reported Past Drug Use History: None Reported - Past Family History Father Family Medical History: Chest Pain / Angina Additional Family Medical History / Comment(s): "lung problems" Mother Family Medical History: Blood Disorder, Cancer, Chest Pain / Angina, Congestive Heart Failure (CHF), Osteoarthritis (OA), Thyroid Disorder Additional Family Medical History / Comment(s): "french folder cancer" blood clots <Kain Zheng - Last Filed: 11/24/24 12:42> General Exam Limitations: no limitations <Kain Zheng - Last Filed: 11/24/24 12:42> General appearance: alert, in no apparent distress Head exam: Present: atraumatic, normocephalic Eye exam: Present: normal appearance, PERRL ENT exam: Present: mucous membranes moist Neck exam: Present: normal inspection. Absent: tenderness, meningismus Respiratory exam: Present: normal lung sounds bilaterally. Absent: respiratory distress, wheezes Cardiovascular Exam: Present: normal rhythm, tachycardia GI/Abdominal exam: Present: soft. Absent: distended, tenderness Extremities exam: Present: normal inspection, normal capillary refill Neurological exam: Present: alert, oriented X3, CN II-XII intact. Absent: motor sensory deficit Psychiatric exam: Present: normal affect, normal mood Skin exam: Present: warm, dry, intact. Absent: cyanosis, diaphoretic <Lamont Balbuena - Last Filed: 11/24/24 17:10> - General Exam Comments Initial Comments: Visual Physical Exam Vital signs reviewed General: Well-appearing, nontoxic, no acute distress. Head: Normocephalic, atraumatic Eyes: PERRLA, EOMI ENT: Airway patent Chest: Nonlabored breathing Skin: No visual rash, normal skin tone Neuro: Alert and oriented 3 Musculoskeletal: No gross abnormalities (Kain Zheng) Course Vital Signs 11/24/24 11/24/24 11/24/24 12:36 13:48 17:05 Temperature 98.6 F 98.4 F Pulse Rate 112 H 112 H 107 H Respiratory 16 20 Rate Blood Pressure 148/79 161/107 O2 Sat by Pulse 95 100 Oximetry Chest Pain MDM <Kain Zheng - Last Filed: 11/24/24 12:42> <Lamont Balbuena Avery - Last Filed: 11/24/24 17:10> - MDM I completed the quick note portion of this chart signed YANELI Stahl (Kain Zheng) Was pt. sent in by a medical professional or institution ([facility] Oliveros, [employer], urgent care, hospital, or senior care...) When possible be specific @ -No Did you speak to anyone other than the patient for history (EMS, parent, family, police, friend...)? What history was obtained from this source @ -No Did you review nursing and triage notes (agree or disagree)? Why? @ -I reviewed and agree with nursing and triage notes Were old charts reviewed (outside hosp., previous admission, EMS record, old EKG, old radiological studies, urgent care reports/EKG's, senior care records)? Report findings @ -No old charts were reviewed Differential Diagnosis (chest pain, altered mental status, abdominal pain women, abdominal pain men, vaginal bleeding, weakness, fever, dyspnea, syncope, headache, dizziness, GI bleed, back pain, seizure, CVA, palpatations, mental health, musculoskeletal)? @ -Not applicable EKG interpreted by me (3pts min.). @ -Sinus tachycardia rate of 112, NH interval 156, QRS duration 111, QTc [address] segment elevation. X-rays interpreted by me (1pt min.). @X-ray negative for acute cardiopulmonary findings CT interpreted by me (1pt min.). @ -None done U/S interpreted by me (1pt. min.). @ -None done What testing was considered but not performed or refused? (CT, X-rays, U/S, labs)? Why? @ -None What meds were considered but not given or refused? Why? @ -None Did you discuss the management of the patient with other professionals (professionals i.e. , PA, FRUIT DISTRIBUTOR, lab, RT, psych nurse, social work professor, hris analyst, teacher, amphibious operations officer, case resolution specialist)? Give summary @ -No Was smoking cessation discussed for >3mins.? @ -No Was critical care preformed (if so, how long)? @ -No Were there social determinants of health that impacted care today? How? (Homelessness, low income, unemployed, alcoholism, drug addiction, transportation, low edu. Level, literacy, decrease access to med. care, fci, rehab)? @ -No Was there de-escalation of care discussed even if they declined (Discuss DNR or withdrawal of care, Hospice)? DNR status @ -No What co-morbidities impacted this encounter? (DM, HTN, Smoking, COPD, CAD, Cancer, CVA, ARF, Chemo, Hep., AIDS, mental health diagnosis, sleep apnea, morbid obesity)? @ -[DM Was patient admitted / discharged? Hospital course, mention meds given and route, prescriptions, significant lab abnormalities, going to OR and other pertinent info. @59-year-old male with acute on chronic chest pain with multiple pain complaints. EKG sinus tach with no change compared to prior chest x-ray is clear. I did order laboratory testing however the patient is very difficult IV start and IV access is not obtainable in the emergency department I recommended a femoral stick for central line placement patient declined. He states he will follow-up with his primary care provider tomorrow and contact his supervisor bindery. Undiagnosed new problem with uncertain prognosis? @ -No Drug Therapy requiring intensive monitoring for toxicity (Heparin, Nitro, Insulin, Cardizem)? @ -No Were any procedures done? @ -No Diagnosis/symptom? @ -Chest pain Acute, or Chronic, or Acute on Chronic? @Acute on chronic Uncomplicated (without systemic symptoms) or Complicated (systemic symptoms)? @ -Default Side effects of treatment? @ -No Exacerbation, Progression, or Severe Exacerbation? @ -No Poses a threat to life or bodily function? How? (Chest pain, [place], [place], pneumonia, PE, COPD, DKA, ARF, appy, cholecystitis, CVA, Diverticulitis, Homicidal, Suicidal, threat to staff... and all critical care pts) @ -No (Lamont Balbuena) Disposition <Kain Zheng - Last Filed: 11/24/24 12:42> Is patient prescribed a controlled substance at d/c from ED?: No Time of Disposition: 17:10 <Lamont Balbuena - Last Filed: 11/24/24 17:10> Clinical Impression: Chronic pain Disposition: HOME SELF-CARE Condition: Fair Instructions (If sedation given, give patient instructions): Chest Pain (ED) Referrals: González Muñiz MD [Primary Care Provider] - 1-2 days
--- NOTE | 2024-11-24 14:08 | XR ---
EXAMINATION TYPE: XR chest 2V DATE OF EXAM: 11/24/2024 2:04 PM COMPARISON: Prior chest radiograph, most recently dated 10/31/2024. CLINICAL INDICATION: Male, 59 years old with history of Chest Pain; [facility] TECHNIQUE: XR chest 2V Frontal and lateral views of the chest. FINDINGS: Lungs/Pleura: There is no evidence of pleural effusion, focal consolidation, or pneumothorax. Pulmonary vascularity: Unremarkable. Heart/mediastinum: Cardiomediastinal silhouette is unremarkable. Musculoskeletal: No acute osseous pathology. Other findings: None IMPRESSION: No acute cardiopulmonary disease/process. [facility], , 11/24/2024 2:05 PM
[2024-11-24] MEDS: oxyCODONE-APAP 7.5-325MG 1 EACH TAB PO STA (16:51)
[2024-11-24 17:06] VITALS: PULSE 107; RESP 20; TEMP 98.4
[2024-11-24] MEDS: HYDROmorphone 1 MG/ML 1 ML SYRINGE IM STA (17:25)
[2024-11-24 17:28] VITALS: BP 154/92
== END 2024-11-24 17:28 | disposition home or self-care (01) ==
LOC: EC 12:16
DX: G89.29 Other chronic pain (principal); R07.89 Other chest pain; E11.9 Type 2 diabetes mellitus without complications; Z79.4 Long term (current) use of insulin; Z88.8 Allergy status to other drugs, medicaments and biological substances
CPT/HCPCS: 36415; 93005; 71046; 99285; 96372; J1171

== ENCOUNTER 2024-11-25 03:36 | Emergency (ER) | payer OTHER ==
[2024-11-25 03:41] VITALS: RESP 20
[2024-11-25 04:19] LABS: Basophils # (A) 0.05 10*3/uL (0.00-0.10); Basophils % (A) 0.9 %; Eosinophils # (A) 0.22 10*3/uL (0.04-0.35); Eosinophils % (A) 3.9 %; HCT 45.1 % (39.6-50.0); HGB 15.6 g/dL (13.0-17.0); Lymphocytes # (A) 1.26 10*3/uL (0.90-5.00); Lymphocytes % (A) 22.4 %; MCH 29.2 pg (27.0-32.0); MCHC 34.6 g/dL (32.0-37.0); MCV 84.3 fL (80.0-97.0); Mean Platelet Volume 9.1 fL (9.5-12.2); Monocytes # (A) 0.44 10*3/uL (0.20-1.00); Monocytes % (A) 7.8 %; Neutrophils # (A) 3.65 10*3/uL (1.80-7.70); Platelet Count 284 10*3/uL (140-440); RBC 5.35 10*6/uL (4.40-5.60); RDW 13.7 % (11.5-14.5); WBC 5.62 10*3/uL (4.50-10.00)
[2024-11-25] MEDS: ASPIRIN 81 MG PO STA (04:29)
[2024-11-25] MEDS: SODIUM CHLORIDE 0.9% 1,000 ML IV ONE (04:29)
[2024-11-25] MEDS: FAMOTIDINE 20 MG/2 ML VIAL IV STA (04:30)
[2024-11-25 04:42] LABS: INR 0.9 (<1.2); Prothrombin Time 10.1 sec (10.0-12.5)
[2024-11-25 04:46] LABS: ALT 31 U/L (4-49); AST 20 U/L (17-59); African American GFR (CKD) >90 (>60 ml/min/1.73 sqM); Albumin 4.9 g/dL (3.5-5.0); Alkaline Phosphatase 148 U/L (38-126); Anion Gap 15 mmol/L; Blood Urea Nitrogen 10 mg/dL (9-20); Calcium 10.1 mg/dL (8.4-10.2); Carbon Dioxide 22 mmol/L (22-30); Chloride 100 mmol/L (98-107); Glucose 261 mg/dL (74-99); Non-African American GFR(CKD) >90 (>60 ml/min/1.73 sqM); Potassium 3.8 mmol/L (3.5-5.1); Sodium 137 mmol/L (137-145); Total Bilirubin 0.8 mg/dL (0.2-1.3); Total Protein 7.9 g/dL (6.3-8.2)
--- NOTE | 2024-11-25 05:05 | ED ---
General Adult HPI - General Chief complaint: Chest Pain Stated complaint: chest pain Time Seen by Provider: 11/25/24 03:59 Source: EMS Mode of arrival: EMS Limitations: no limitations - History of Present Illness Initial comments: Patient is a 59-year-old gentleman well-known to this emergency department, history of CAD, diabetes, presenting today for chest pain. Patient states has been ongoing for 2 days. Was seen here earlier today and states that he was discharged because I cannot get an IV. States it is intermittently sharp in nature. Intermittently radiates to back. Tried home Percocet prior to arrival without relief. Endorses 1 episode of nonbloody nonbilious emesis. Denies associated nausea, vomiting, shortness of breath, lightheadedness, denies abdominal pain, focal numbness or weakness or any additional symptoms. - Related Data Home Medications Medication Instructions Recorded Confirmed Insulin Lispro [humaLOG Kwikpen] See Protocol SQ ACHS 06/16/21 10/31/24 Insulin Glargine,Hum.rec.anlog 34 units SQ DAILY 10/20/22 10/31/24 [Lantus Solostar Pen] Gabapentin 600 mg PO TID 03/25/24 10/31/24 Insulin Lispro [humaLOG Kwikpen] 10 unit SQ TID-W/MEALS 03/25/24 10/31/24 methocarbamoL [Robaxin-750] 750 mg PO TID 03/25/24 10/31/24 oxyCODONE-APAP 5-325MG [Percocet 1 tab PO QID 04/29/24 10/31/24 5-325 mg] Nitroglycerin Sl Tabs [Nitrostat] 0.4 mg SUBLINGUAL Q5M PRN 06/14/24 10/31/24 Apixaban [Eliquis] 5 mg PO BID 10/31/24 10/31/24 Atorvastatin [Lipitor] 20 mg PO DAILY 10/31/24 10/31/24 Insulin Glargine,Hum.rec.anlog 34 units SQ HS PRN 10/31/24 10/31/24 [Lantus Solostar Pen] Isosorbide Mononitrate ER [Imdur] 30 mg PO DAILY 10/31/24 10/31/24 Losartan [Cozaar] 50 mg PO DAILY 10/31/24 10/31/24 Omeprazole [PriLOSEC] 40 mg PO DAILY 10/31/24 10/31/24 amLODIPine [Norvasc] 5 mg PO DAILY 10/31/24 10/31/24 carvediloL [Coreg] 6.25 mg PO BID 10/31/24 10/31/24 Allergies Allergy/AdvReac Type Severity Reaction Status Date / Time doxycycline Allergy Swelling Verified 11/25/24 03:42 ketorolac tromethamine Allergy Rash/Hives Verified 11/25/24 03:42 [From Toradol] morphine Allergy Rash/Hives Verified 11/25/24 03:42 metoclopramide HCl AdvReac Dystonic Verified 11/25/24 03:42 [From Reglan] Reaction prochlorperazine edisylate AdvReac Dystonic Verified 11/25/24 03:42 [From Compazine] Reaction prochlorperazine maleate AdvReac Dystonic Verified 11/25/24 03:42 [From Compazine] Reaction Review of Systems ROS Statement: Those systems with pertinent positive or pertinent negative responses have been documented in the HPI. ROS Other: All systems not noted in ROS Statement are negative. Past Medical History Past Medical History: Asthma, Coronary Artery Disease (CAD), Cancer, Chest Pain / Angina, Diabetes Mellitus, GERD/Reflux, GI Bleed, Hyperlipidemia, Hypertension, Myocardial Infarction ([place]), Mitral Valve Prolapse (MVP), Pulmonary Embolus (PE), Sleep Apnea/CPAP/BIPAP Additional Past Medical History / Comment(s): Asthmatic bronchitis-chronic, IDDM type II, neuropathy bilateral feet, lower and upper GI bleeds, PUD, diverticulitis, colectomy d/t benign mass/intusseption, BPH, renal cysts, nephrolithiais, UTI with sepsis, chronic back pain 2ndary to herniated lumbar discs/sciatica, JARED does not use his Cpap, MVP, murmur, chronic dysphagia, colon cancer Last Myocardial Infarction Date:: 2011 History of Any Multi-Drug Resistant Organisms: C-DIFF, MRSA Date of last positivie culture/infection: 2015 MDRO Source:: left axilla Past Surgical History: Appendectomy, Back Surgery, Cholecystectomy, Heart Catheterization, Hernia Repair, Orthopedic Surgery Additional Past Surgical History / Comment(s): Lumbar decompression/fusion/laminectomy, spinal stimulator, T lift procedure, L inguinal hernia repair, multiple ESWLs/stents/double J caths, colonoscopy, 02/2020 colectomy, EGDs for food obstructions and dilations, NERVE STIMULATOR Past Anesthesia/Blood Transfusion Reactions: No Reported Reaction Past Psychological History: No Psychological Hx Reported Smoking Status: Never smoker Past Alcohol Use History: None Reported Past Drug Use History: None Reported - Past Family History Father Family Medical History: Chest Pain / Angina Additional Family Medical History / Comment(s): "lung problems" Mother Family Medical History: Blood Disorder, Cancer, Chest Pain / Angina, Congestive Heart Failure (CHF), Osteoarthritis (OA), Thyroid Disorder Additional Family Medical History / Comment(s): "obgyn nurse cancer" blood clots General Exam - General Exam Comments Initial Comments: PE: CONSTITUTIONAL: No apparent distress, well appearing SKIN: Warm, dry, no jaundice, hives or petechiae EYES: Pupils are equally round, extraocular movements intact without nystagmus, clear conjunctiva, non-icteric sclera HENT: Normocephalic, atraumatic, moist mucus membranes, oropharynx clear without exudates NECK: , Full range of motion, normal appearance PULMONARY: Clear to auscultation without wheezes, rhonchi, or rales, normal excursion, no accessory muscle use and no stridor CARDIOVASCULAR: Regular rate, rhythm, normal S1 and S2. No appreciated murmurs, rubs or gallops. Strong, 2+ pulses bilateral radial pulses, bilateral DP pulses, equal in all 4 extremities GASTROINTESTINAL: Soft, active bowel sounds throughout, non-tender, non- distended, no palpable masses, no rebound or guarding. No hepatosplenomegaly GENITOURINARY: MUSCULOSKELETAL: Extremities have no gross deformity, no edema, redness, or swelling. NEUROLOGIC:_a/o x 3, GCS 15, normal mentation and speech. Moves all extremities x 4 without motor or sensory deficit PSYCHIATRIC:_normal mood and affect, thought process is clear and linear Limitations: no limitations Course Vital Signs 11/25/24 11/25/24 11/25/24 03:38 03:42 05:54 Pulse Rate 94 104 H Pulse Rate [ 99 Right Sitting Radial] Respiratory 20 20 Rate Blood Pressure 184/105 210/190 O2 Sat by Pulse 100 99 Oximetry 11/25/24 11/25/24 05:58 06:43 Pulse Rate 115 H 99 Pulse Rate [ Right Sitting Radial] Respiratory 20 20 Rate Blood Pressure 132/87 150/99 O2 Sat by Pulse 98 99 Oximetry EKG Findings - EKG Comments: EKG Findings:: Rhythm, rate 97 bpm AR interval 162 ms QT/QTc within normal limits, normal axis, no significant ST elevations or depressions, no ischemic changes Medical Decision Making - Medical Decision Making Was pt. sent in by a medical professional or institution (, PA, MANAGER LANDSCAPE, urgent care, hospital, or residential...) When possible be specific @ -No Did you speak to anyone other than the patient for history (EMS, parent, family, police, friend...)? What history was obtained from this source @ -No Did you review nursing and triage notes (agree or disagree)? Why? @ -I reviewed nursing and triage notes Were old charts reviewed (outside hosp., previous admission, EMS record, old EKG, old radiological studies, urgent care reports/EKG's, residential records)? Report findings @ -Medical records reviewed-of note Patient was seen yesterday afternoon for chest pain as well, described similar today, per HPI from ED note, on review of ED visit from yesterday afternoon, it appears there was difficulty obtaining IV access and patient was offered the option of obtaining labs via femoral venous access however the patient declined and stated he will follow-up with his prima ry care provider tomorrow. Differential Diagnosis (chest pain, altered mental status, abdominal pain women, abdominal pain men, vaginal bleeding, weakness, fever, dyspnea, syncope, headache, dizziness, GI bleed, back pain, seizure, CVA, palpatations, mental health, musculoskeletal)? @Differential Chest Pain: Stable Angina, Unstable Angina, STEMI, NSTEMI Aortic Dissection, pericarditis, pleurisy, chostochondirits, Pneumothorax, Musculoskeletal, Esophageal Spasm GERD, Cholecystitis, Pancreatitis, Zoster, this is not meant to be an all- inclusive list. EKG interpreted by me (3pts min.). @ -As above X-rays interpreted by me (1pt min.). Personally reviewed chest x-ray see no evidence of consolidations, cardiomegaly, pleural effusions mediastinal widening or other acute process CT interpreted by me (1pt min.). @ -None done U/S interpreted by me (1pt. min.). @ -None done What testing was considered but not performed or refused? (CT, X-rays, U/S, labs)? Why? @ -None What meds were considered but not given or refused? Why? @Additional SL nitroglycerin was offered however patient refused Did you discuss the management of the patient with other professionals (professionals i.e. , PA, MANAGER LANDSCAPE, lab, RT, psych nurse, hospice social worker, reporter anchor, teacher, airframe technical officer, outpatient case manager)? Give summary @ -No Was smoking cessation discussed for >3mins.? @ -No Was critical care preformed (if so, how long)? @ -No Were there social determinants of health that impacted care today? How? (Homelessness, low income, unemployed, alcoholism, drug addiction, transportation, low edu. Level, literacy, decrease access to med. care, group home, rehab)? @Homelessness Was there de-escalation of care discussed even if they declined (Discuss DNR or withdrawal of care, Hospice)? @ -No What co-morbidities impacted this encounter? (DM, HTN, Smoking, COPD, CAD, Cancer, CVA, ARF, Chemo, Hep., AIDS, mental health diagnosis, sleep apnea, morbid obesity)? @Diabetes, CAD Was patient admitted / discharged? Hospital course, mention meds given and route, prescriptions, significant lab abnormalities, going to OR and other p ertinent info. @ -Discharged-patient is a 59-year-old gentleman, well-known to this emergency department, presenting today for chest pain x 2 days. Of note patient is hypertensive on arrival with blood pressure 184/105, otherwise remaining vital signs within acceptable limits. IV access was obtained. Patient be given 324 mg aspirin, SL nitroglycerin for both pain and hypertension, Pepcid. Of note patient has a documented allergy to morphine so morphine will not be given at this time. Plan for comprehensive labs, including troponin, CBC, CMP, chest x- ray. Patient agreeable with plan of care. Shortly after this patient requested home Percocet however he did tell RN that he is prescribed Percocet every 6 hours and he took a Percocet 1 hour prior to arrival so he is not yet due for his home Percocet, pt will remain NPO at this time until workup resulted. Labs and imaging reviewed. Grossly within normal limits. Abnormal values not concerning for acute pathology related to presenting complaint. I do not feel repeat troponin is indicated at this time as patient's pain ongoing x 2 days and if pain 2/2 ACS would expect elevated troponin at this point. HEART score of 3, anticipate discharge. On reassessment patient blood pressure is much improved, he denied much improvement in pain though is comfortable appearing. I offered him additional sublingual nitroglycerin however he refused. I updated him to reassuring findings thus far and anticipated discharge. Patient requests home percocet prior to discharge, however we discussed that since he he is being discharged it would be appropriate for him to take his percocet upon arriving home. At this time patient became angry and states he "will go to a real hospital where they will do a real workup on me". I again discussed with the patient workup done here with reassuring findings and the importance of following up with his PCP and annual giving director. I am concerned for opioid seeking behaviors given patient's repeated requests for percocet and anger when he did not receive narcotics when requested. Patient discharged home with strict return precautions warranting return to the ED in stable condition. Undiagnosed new problem with uncertain prognosis? @ -No Drug Therapy requiring intensive monitoring for toxicity (Heparin, Nitro, Insulin, Cardizem)? @ -No Were any procedures done? @ -No Diagnosis/symptom? @Chest pain Acute, or Chronic, or Acute on Chronic? @Acute Uncomplicated (without systemic symptoms) or Complicated (systemic symptoms)? @ -complicated Side effects of treatment? @ -No Exacerbation, Progression, or Severe Exacerbation? @ -No Poses a threat to life or bodily function? How? (Chest pain, [place], [place], pneumonia, PE, COPD, DKA, ARF, appy, cholecystitis, CVA, Diverticulitis, Homicidal, Suicidal, threat to staff... and all critical care pts) @ -No - Lab Data Result diagrams: 11/25/24 04:09 11/25/24 04:09 Lab Results 11/25/24 11/25/24 11/25/24 Range/Units 04:09 04:09 04:09 WBC 5.62 (4.50-10.00) 10*3/uL RBC 5.35 (4.40-5.60) 10*6/uL Hgb 15.6 (13.0-17.0) g/dL Hct 45.1 (39.6-50.0) % MCV 84.3 (80.0-97.0) fL MCH 29.2 (27.0-32.0) pg MCHC 34.6 (32.0-37.0) g/dL Plt Count 284 (140-440) 10*3/uL MPV 9.1 L (9.5-12.2) fL Immature Gran % (Auto) 0 % Neutrophils % 65.0 % Lymphocytes % 22.4 % Monocytes % 7.8 % Eosinophils % 3.9 % Basophils % 0.9 % Immature Gran # 0.00 (0.00-0.04) 10*3/uL Neutrophils # 3.65 (1.80-7.70) 10*3/uL Lymphocytes # 1.26 (0.90-5.00) 10*3/uL Monocytes # 0.44 (0.20-1.00) 10*3/uL Eosinophils # 0.22 (0.04-0.35) 10*3/uL Basophils # 0.05 (0.00-0.10) 10*3/uL PT 10.1 (10.0-12.5) sec INR 0.9 (<1.2) APTT 22.0 (22.0-30.0) sec Sodium 137 (137-145) mmol/L Potassium 3.8 (3.5-5.1) mmol/L Chloride 100 (98-107) mmol/L Carbon Dioxide 22 (22-30) mmol/L Anion Gap 15 mmol/L BUN 10 (9-20) mg/dL Creatinine 0.45 L (0.66-1.25) mg/dL Est GFR (CKD-EPI)AfAm >90 (>60 ml/min/1.73 sqM) Est GFR (CKD-EPI)NonAf >90 (>60 ml/min/1.73 sqM) Glucose 261 H (74-99) mg/dL Calcium 10.1 (8.4-10.2) mg/dL Total Bilirubin 0.8 (0.2-1.3) mg/dL AST 20 (17-59) U/L ALT 31 (4-49) U/L Alkaline Phosphatase 148 H (38-126) U/L Troponin I (0.000-0.034) ng/mL Total Protein 7.9 (6.3-8.2) g/dL Albumin 4.9 (3.5-5.0) g/dL Acetone, Qual (Negative) 11/25/24 11/25/24 Range/Units 04:09 04:09 WBC (4.50-10.00) 10*3/uL RBC (4.40-5.60) 10*6/uL Hgb (13.0-17.0) g/dL Hct (39.6-50.0) % MCV (80.0-97.0) fL MCH (27.0-32.0) pg MCHC (32.0-37.0) g/dL Plt Count (140-440) 10*3/uL MPV (9.5-12.2) fL Immature Gran % (Auto) % Neutrophils % % Lymphocytes % % Monocytes % % Eosinophils % % Basophils % % Immature Gran # (0.00-0.04) 10*3/uL Neutrophils # (1.80-7.70) 10*3/uL Lymphocytes # (0.90-5.00) 10*3/uL Monocytes # (0.20-1.00) 10*3/uL Eosinophils # (0.04-0.35) 10*3/uL Basophils # (0.00-0.10) 10*3/uL PT (10.0-12.5) sec INR (<1.2) APTT (22.0-30.0) sec Sodium (137-145) mmol/L Potassium (3.5-5.1) mmol/L Chloride (98-107) mmol/L Carbon Dioxide (22-30) mmol/L Anion Gap mmol/L BUN (9-20) mg/dL Creatinine (0.66-1.25) mg/dL Est GFR (CKD-EPI)AfAm (>60 ml/min/1.73 sqM) Est GFR (CKD-EPI)NonAf (>60 ml/min/1.73 sqM) Glucose (74-99) mg/dL Calcium (8.4-10.2) mg/dL Total Bilirubin (0.2-1.3) mg/dL AST (17-59) U/L ALT (4-49) U/L Alkaline Phosphatase (38-126) U/L Troponin I <0.012 (0.000-0.034) ng/mL Total Protein (6.3-8.2) g/dL Albumin (3.5-5.0) g/dL Acetone, Qual Negative (Negative) Disposition Clinical Impression: Chest pain, Narcotic dependence Disposition: HOME SELF-CARE Condition: Stable Instructions (If sedation given, give patient instructions): Chest Pain (ED) Additional Instructions: Every disease is a spectrum and a small chance still exists that a serious condition could develop, for this reason, please monitor yourself closely for new, changing or worsening symptoms, symptoms that persist beyond 48 hours difficulty in breathing, coughing up blood or thick sputum, leg swelling, fever, inability to tolerate/keep down fluids or your medications, inability to follow up with outpatient providers as instructed and should you experience these sy mptoms or should you have any further concerns for your wellbeing please return to the ED or call 911 immediately. PLEASE call your primary care physician as soon as possible to arrange / discuss plan for followup appointment. Appointment in the next 1-3 days is strongly encouraged if possible. PLEASE let us know here before you leave if there is anything further we can do to be of any assistance. Take care and feel Better! Is patient prescribed a controlled substance at d/c from ED?: No Referrals: González Muñiz MD [Primary Care Provider] - 1-2 days Miguel Arora MD [STAFF PHYSICIAN] - 1-2 days
[2024-11-25] MEDS: NITROGLYCERIN SL TABS 0.4 MG TAB SUBLINGUAL PRN (05:53)
--- NOTE | 2024-11-25 06:21 | XR ---
EXAM: XR Chest, 2 Views CLINICAL HISTORY: Chest Pain TECHNIQUE: Frontal and lateral views of the chest. COMPARISON: Chest radiograph 10/28/2024 FINDINGS: Lungs: Unremarkable. No consolidation. Pleural space: Unremarkable. No pneumothorax. Heart: Unremarkable. No cardiomegaly. Mediastinum: Unremarkable. Normal mediastinal contour. Bones/joints: There are degenerative changes of the spine. No acute fracture. IMPRESSION: No acute findings in the chest.
[2024-11-25 06:47] VITALS: BP 150/99; PULSE 99
== END 2024-11-25 06:47 | disposition home or self-care (01) ==
LOC: EC 03:36
DX: R07.9 Chest pain, unspecified (principal); F11.20 Opioid dependence, uncomplicated; I25.10 Atherosclerotic heart disease of native coronary artery without angina pectoris; E11.9 Type 2 diabetes mellitus without complications; Z88.1 Allergy status to other antibiotic agents; Z88.3 Allergy status to other anti-infective agents; Z88.5 Allergy status to narcotic agent; Z88.6 Allergy status to analgesic agent; Z88.8 Allergy status to other drugs, medicaments and biological substances
CPT/HCPCS: 36415; 93005; 80053; 82009; 84484; 85025; 85610; 85730; 71046; 96374; 96361; 99285; J1308

== ENCOUNTER 2024-12-23 18:29 | Emergency (ER) | payer OTHER ==
[2024-12-23 18:42] LABS: Glucose,Whole Blood 286 mg/dL (70-110)
--- NOTE | 2024-12-23 19:07 | ED ---
Back Pain HPI - General Chief Complaint: Recheck/Abnormal Lab/Rx Stated Complaint: abn labs Time Seen by Provider: 12/23/24 18:53 Source: patient, RN notes reviewed, old records reviewed Limitations: no limitations - History of Present Illness Initial Comments: This is a 59-year-old male to the ER for evaluation, patient believes he had a little diabetic reaction earlier today with severe back pain after a fall. Pain is upper back thoracic spine chronic in nature just acute on chronic pain also related to recent fall. No neurological symptoms able to ambulate without diff iculty had some mild nausea and unable to take pain medications at home MD Complaint: back pain, back injury -: days(s) Severity: severe Severity scale (1-10): 10 Quality: sharp Consistency: constant Improves With: none Worsens With: none Context: fall Associated Symptoms: denies other symptoms Treatments Prior to Arrival: other (0) - Related Data Home Medications Medication Instructions Recorded Confirmed Insulin Lispro [humaLOG Kwikpen] See Protocol SQ ACHS 06/16/21 10/31/24 Insulin Glargine,Hum.rec.anlog 34 units SQ DAILY 10/20/22 10/31/24 [Lantus Solostar Pen] Gabapentin 600 mg PO TID 03/25/24 10/31/24 Insulin Lispro [humaLOG Kwikpen] 10 unit SQ TID-W/MEALS 03/25/24 10/31/24 methocarbamoL [Robaxin-750] 750 mg PO TID 03/25/24 10/31/24 oxyCODONE-APAP 5-325MG [Percocet 1 tab PO QID 04/29/24 10/31/24 5-325 mg] Nitroglycerin Sl Tabs [Nitrostat] 0.4 mg SUBLINGUAL Q5M PRN 06/14/24 10/31/24 Apixaban [Eliquis] 5 mg PO BID 10/31/24 10/31/24 Atorvastatin [Lipitor] 20 mg PO DAILY 10/31/24 10/31/24 Insulin Glargine,Hum.rec.anlog 34 units SQ HS PRN 10/31/24 10/31/24 [Lantus Solostar Pen] Isosorbide Mononitrate ER [Imdur] 30 mg PO DAILY 10/31/24 10/31/24 Losartan [Cozaar] 50 mg PO DAILY 10/31/24 10/31/24 Omeprazole [PriLOSEC] 40 mg PO DAILY 10/31/24 10/31/24 amLODIPine [Norvasc] 5 mg PO DAILY 10/31/24 10/31/24 carvediloL [Coreg] 6.25 mg PO BID 10/31/24 10/31/24 Allergies Allergy/AdvReac Type Severity Reaction Status Date / Time doxycycline Allergy Swelling Verified 12/23/24 18:41 ketorolac tromethamine Allergy Rash/Hives Verified 12/23/24 18:41 [From Toradol] morphine Allergy Rash/Hives Verified 12/23/24 18:41 metoclopramide HCl AdvReac Dystonic Verified 12/23/24 18:41 [From Reglan] Reaction prochlorperazine edisylate AdvReac Dystonic Verified 12/23/24 18:41 [From Compazine] Reaction prochlorperazine maleate AdvReac Dystonic Verified 12/23/24 18:41 [From Compazine] Reaction Review of Systems ROS Statement: Those systems with pertinent positive or pertinent negative responses have been documented in the HPI. ROS Other: All systems not noted in ROS Statement are negative. Past Medical History Past Medical History: Asthma, Coronary Artery Disease (CAD), Cancer, Chest Pain / Angina, Diabetes Mellitus, GERD/Reflux, GI Bleed, Hyperlipidemia, Hyp ertension, Myocardial Infarction (CA), Mitral Valve Prolapse (MVP), Pulmonary Embolus (PE), Sleep Apnea/CPAP/BIPAP Additional Past Medical History / Comment(s): Asthmatic bronchitis-chronic, IDDM type II, neuropathy bilateral feet, lower and upper GI bleeds, PUD, diverticulitis, colectomy d/t benign mass/intusseption, BPH, renal cysts, nephrolithiais, UTI with sepsis, chronic back pain 2ndary to herniated lumbar discs/sciatica, JARED does not use his Cpap, MVP, murmur, chronic dysphagia, colon cancer Last Myocardial Infarction Date:: 2011 History of Any Multi-Drug Resistant Organisms: C-DIFF, MRSA Date of last positivie culture/infection: 2015 MDRO Source:: left axilla Past Surgical History: Appendectomy, Back Surgery, Cholecystectomy, Heart Catheterization, Hernia Repair, Orthopedic Surgery Additional Past Surgical History / Comment(s): Lumbar decompression/fusion/laminectomy, spinal stimulator, T lift procedure, L inguinal hernia repair, multiple ESWLs/stents/double J caths, colonoscopy, 02/2020 colectomy, EGDs for food obstructions and dilations, NERVE STIMULATOR Past Anesthesia/Blood Transfusion Reactions: No Reported Reaction Past Psychological History: No Psychological Hx Reported Smoking Status: Never smoker Past Alcohol Use History: None Reported Past Drug Use History: None Reported - Past Family History Father Family Medical History: Chest Pain / Angina Additional Family Medical History / Comment(s): "lung problems" Mother Family Medical History: Blood Disorder, Cancer, Chest Pain / Angina, Congestive Heart Failure (CHF), Osteoarthritis (OA), Thyroid Disorder Additional Family Medical History / Comment(s): "soldering machine setter cancer" blood clots General Exam Limitations: no limitations General appearance: alert, in no apparent distress Head exam: Present: atraumatic, normocephalic, normal inspection Eye exam: Present: normal appearance, PERRL, EOMI. Absent: scleral icterus, conjunctival injection, periorbital swelling ENT exam: Present: normal exam, mucous membranes moist Neck exam: Present: normal inspection. Absent: tenderness, meningismus, lymphadenopathy Respiratory exam: Present: normal lung sounds bilaterally. Absent: respiratory distress, wheezes, rales, rhonchi, stridor Cardiovascular Exam: Present: regular rate, normal rhythm, normal heart sounds. Absent: systolic murmur, diastolic murmur, rubs, gallop, clicks GI/Abdominal exam: Present: soft, normal bowel sounds. Absent: distended, tenderness, guarding, rebound, rigid Extremities exam: Present: normal inspection, full ROM, normal capillary refill. Absent: tenderness, pedal edema, joint swelling, calf tenderness Back exam: Present: normal inspection Neurological exam: Present: alert, oriented X3, CN II-XII intact Psychiatric exam: Present: normal affect, normal mood Skin exam: Present: warm, dry, intact, normal color. Absent: rash Course Vital Signs 12/23/24 18:33 Temperature 98.6 F Pulse Rate 124 H Respiratory 17 Rate Blood Pressure 200/103 O2 Sat by Pulse 98 Oximetry - Reevaluation(s) Reevaluation #1: 12/23/24 19:05 Medical records reviewed Reevaluation #2: 12/23/24 19:05 Patient has adequate pain control Reevaluation #3: 12/23/24 19:05 Patient informed of results questions answered Reevaluation #4: Was pt. sent in by a medical professional or institution (MAGGIE Oliveros, [employer], urgent care, hospital, or long term...) When possible be specific @ -no Did you speak to anyone other than the patient for history (EMS, parent, family, police, friend...)? What history was obtained from this source @ -no Did you review nursing and triage notes (agree or disagree)? Why? @ -agree Are old charts reviewed (outside hosp., previous admission, EMS record, old EKG, old radiological studies, urgent care reports/EKG's, long term records)? Report findings @ -yes Differential Diagnosis (chest pain, altered mental status, abdominal pain women, abdominal pain men, vaginal bleeding, weakness, fever, dyspnea, syncope, headache, dizziness, GI bleed, back pain, seizure, CVA, palpatations, mental health, musculoskeletal)? @ -prior EKG interpreted by me (3pts min.). @ -yes X-rays interpreted by me (1pt min.). @ -yes negative for acute disease CT interpreted by me (1pt min.). @ -no U/S interpreted by me (1pt. min.). @ -no What testing was considered but not performed or refused? (CT, X-rays, U/S, labs)? Why? @ -none What meds were considered but not given or refused? Why? @ -none Did you discuss the management of the patient with other professionals (professionals i.e. MAGGIE Oliveros, [employer] IN[employer]CTOR, lab, RT, psych nurse, geriatric social work professor, probate lawyer, teacher, chief sustainability officer, window caser)? Give summary @ -no Was smoking cessation discussed for >3mins.? @ -no Was critical care preformed (if so, how long)? @ -no Were there social determinants of health that impacted care today? How? (Homel essness, low income, unemployed, alcoholism, drug addiction, transportation, low edu. Level, literacy, decrease access to med. care, prison, rehab)? @ -none Was there de-escalation of care discussed even if they declined (Discuss DNR or withdrawal of care, Hospice)? DNR status @ -no What co-morbidities impacted this encounter? (DM, HTN, Smoking, COPD, CAD, Cancer, CVA, ARF, Chemo, Hep., AIDS, mental health diagnosis, sleep apnea, morbid obesity)? @ -none Was patient admitted / discharged? Hospital course, mention meds given and route, prescriptions, significant lab abnormalities, going to OR and other pertinent info. @ - Undiagnosed new problem with uncertain prognosis? @ -no Drug Therapy requiring intensive monitoring for toxicity (Heparin, Nitro, Insulin, Cardizem)? @ -no Were any procedures done? @ -no Diagnosis/symptom? @ - Acute, or Chronic, or Acute on Chronic? @ -Acute Uncomplicated (without systemic symptoms) or Complicated (systemic symptoms)? @ -Complicated Side effects of treatment? @ -no Exacerbation, Progression, or Severe Exacerbation? @ -exacerbation Poses a threat to life or bodily function? How? (Chest pain, USA, CA, pneumonia, PE, COPD, DKA, ARF, appy, cholecystitis, CVA, Diverticulitis, Homicidal, Suicidal, threat to staff... and all critical care pts) @ -yes Reevaluation #5: Differential Back Pain: Strain, zoster, cauda equina syndrome, epidural abscess, vertebral osteomyelitis, discitis, fracture, subluxation, disc herniation, DJD, spinal stenosis, dissection, AAA, pancreatitis, peptic ulcer disease, pyelonephritis, kidney stone, this is not meant to be an all-inclusive list. Medical Decision Making - Medical Decision Making 59 male acute on chronic back pain pain is well-controlled and patient can be discharged home - Lab Data Lab Results 12/23/24 Range/Units 18:40 POC Glucose (mg/dL) 286 H (70-110) mg/dL POC Glu Clay Artist ID Dick Camara Disposition Clinical Impression: Intractable back pain Disposition: HOME SELF-CARE Condition: Good Instructions (If sedation given, give patient instructions): Acute Low Back Pain (ED) Is patient prescribed a controlled substance at d/c from ED?: No Referrals: González Muñiz MD [Primary Care Provider] - 1-2 days Time of Disposition: 19:20
[2024-12-23] MEDS: diphenhydrAMINE 50 MG CAP PO STA (19:28)
[2024-12-23] MEDS: LORazepam 1 MG TAB PO STA (19:28)
[2024-12-23] MEDS: HYDROmorphone 1 MG/ML 1 ML SYRINGE IM STA (19:29)
[2024-12-23 19:36] VITALS: BP 171/122; PULSE 112; RESP 18; TEMP 98.4
== END 2024-12-23 19:39 | disposition home or self-care (01) ==
LOC: EC 18:29
DX: M54.6 Pain in thoracic spine (principal); Z88.8 Allergy status to other drugs, medicaments and biological substances; Z88.5 Allergy status to narcotic agent
CPT/HCPCS: 36415; 93005; 99284; 96372; J1171

== ENCOUNTER 2025-01-02 13:04 | Emergency (ER) | payer OTHER ==
--- NOTE | 2025-01-02 15:40 | ED ---
Nausea/Vomiting/Diarrhea HPI - General Source: patient, RN notes reviewed Mode of arrival: ambulatory Limitations: no limitations <Karson Silverman - Last Filed: 01/02/25 15:39> <Dominick Garibay - Last Filed: 01/08/25 18:01> - General Chief complaint: Nausea/Vomiting/Diarrhea Stated complaint: Urogenital Time Seen by Provider: 01/02/25 13:15 - History of Present Illness Initial comments: Quick note 59-year-old male presents emergency department chief complaint of right flank pain. Patient dates he had associated nausea vomiting, feels dehydrated. Patient states he has flank pain uncontrolled with medication. Patient offers no other complaints. (Karson Silverman) 59-year-old male presenting with chief complaint of right flank pain. History of kidney stones. Denies any injury or trauma. Admits to nausea and vomiting. Some dysuria. No hematuria. No fever or chills. No other complaints (Dominick Garibay) - Related Data Home Medications Medication Instructions Recorded Confirmed Insulin Lispro [humaLOG Kwikpen] See Protocol SQ ACHS 06/16/21 10/31/24 Insulin Glargine,Hum.rec.anlog 34 units SQ DAILY 10/20/22 10/31/24 [Lantus Solostar Pen] Gabapentin 600 mg PO TID 03/25/24 10/31/24 Insulin Lispro [humaLOG Kwikpen] 10 unit SQ TID-W/MEALS 03/25/24 10/31/24 methocarbamoL [Robaxin-750] 750 mg PO TID 03/25/24 10/31/24 oxyCODONE-APAP 5-325MG [Percocet 1 tab PO QID 04/29/24 10/31/24 5-325 mg] Nitroglycerin Sl Tabs [Nitrostat] 0.4 mg SUBLINGUAL Q5M PRN 06/14/24 10/31/24 Apixaban [Eliquis] 5 mg PO BID 10/31/24 10/31/24 Atorvastatin [Lipitor] 20 mg PO DAILY 10/31/24 10/31/24 Insulin Glargine,Hum.rec.anlog 34 units SQ HS PRN 10/31/24 10/31/24 [Lantus Solostar Pen] Isosorbide Mononitrate ER [Imdur] 30 mg PO DAILY 10/31/24 10/31/24 Losartan [Cozaar] 50 mg PO DAILY 10/31/24 10/31/24 Omeprazole [PriLOSEC] 40 mg PO DAILY 10/31/24 10/31/24 amLODIPine [Norvasc] 5 mg PO DAILY 10/31/24 10/31/24 carvediloL [Coreg] 6.25 mg PO BID 10/31/24 10/31/24 Allergies Allergy/AdvReac Type Severity Reaction Status Date / Time doxycycline Allergy Swelling Verified 12/23/24 18:41 ketorolac tromethamine Allergy Rash/Hives Verified 12/23/24 18:41 [From Toradol] morphine Allergy Rash/Hives Verified 12/23/24 18:41 metoclopramide HCl AdvReac Dystonic Verified 12/23/24 18:41 [From Reglan] Reaction prochlorperazine edisylate AdvReac Dystonic Verified 12/23/24 18:41 [From Compazine] Reaction prochlorperazine maleate AdvReac Dystonic Verified 12/23/24 18:41 [From Compazine] Reaction Review of Systems ROS Other: All systems not noted in ROS Statement are negative. <Karson Silverman - Last Filed: 01/02/25 15:39> ROS Other: All systems not noted in ROS Statement are negative. <Dominick Garibay - Last Filed: 01/08/25 18:01> ROS Statement: Those systems with pertinent positive or pertinent negative responses have been documented in the HPI. Past Medical History Past Medical History: Asthma, Coronary Artery Disease (CAD), Cancer, Chest Pain / Angina, Diabetes Mellitus, GERD/Reflux, GI Bleed, Hyperlipidemia, Hypertension, Myocardial Infarction (MD), Mitral Valve Prolapse (MVP), Pulmonary Embolus (PE), Sleep Apnea/CPAP/BIPAP Additional Past Medical History / Comment(s): Asthmatic bronchitis-chronic, IDDM type II, neuropathy bilateral feet, lower and upper GI bleeds, PUD, diverticulitis, colectomy d/t benign mass/intusseption, BPH, renal cysts, nephrolithiais, UTI with sepsis, chronic back pain 2ndary to herniated lumbar discs/sciatica, JARED does not use his Cpap, MVP, murmur, chronic dysphagia, colon cancer Last Myocardial Infarction Date:: 2011 History of Any Multi-Drug Resistant Organisms: C-DIFF, MRSA Date of last positivie culture/infection: 2016 MDRO Source:: left axilla Past Surgical History: Appendectomy, Back Surgery, Cholecystectomy, Heart Catheterization, Hernia Repair, Orthopedic Surgery Additional Past Surgical History / Comment(s): Lumbar decompression/fusion/laminectomy, spinal stimulator, T lift procedure, L inguinal hernia repair, multiple ESWLs/stents/double J caths, colonoscopy, 02/2020 colectomy, EGDs for food obstructions and dilations, NERVE STIMULATOR Past Anesthesia/Blood Transfusion Reactions: No Reported Reaction Past Psychological History: No Psychological Hx Reported Smoking Status: Never smoker Past Alcohol Use History: None Reported Past Drug Use History: None Reported - Past Family History Father Family Medical History: Chest Pain / Angina Additional Family Medical History / Comment(s): "lung problems" Mother Family Medical History: Blood Disorder, Cancer, Chest Pain / Angina, Congestive Heart Failure (CHF), Osteoarthritis (OA), Thyroid Disorder Additional Family Medical History / Comment(s): "obstetrician/gynecologist cancer" blood clots <Karson Silverman - Last Filed: 01/02/25 15:39> General Exam <Karson Silverman - Last Filed: 01/02/25 15:39> Limitations: no limitations General appearance: alert, in no apparent distress Head exam: Present: atraumatic, normocephalic, normal inspection Eye exam: Present: normal appearance, EOMI Neck exam: Present: normal inspection. Absent: meningismus Respiratory exam: Present: normal lung sounds bilaterally. Absent: respiratory distress, wheezes, rales, rhonchi, stridor Cardiovascular Exam: Present: regular rate, normal rhythm, normal heart sounds. Absent: systolic murmur, diastolic murmur, rubs, gallop, clicks GI/Abdominal exam: Present: soft. Absent: distended, tenderness, guarding, rebound, rigid Back exam: Present: normal inspection Neurological exam: Present: alert, oriented X3 Psychiatric exam: Present: normal affect, normal mood Skin exam: Present: warm, dry, normal color <Dominick Garibay - Last Filed: 01/08/25 18:01> - General Exam Comments Initial Comments: Visual Physical Exam Vital signs reviewed General: Well-appearing, nontoxic, no acute distress. Head: Normocephalic, atraumatic Eyes: PERRLA, EOMI ENT: Airway patent Chest: Nonlabored breathing Skin: No visual rash, normal skin tone Neuro: Alert and oriented 3 Musculoskeletal: No gross abnormalities (Karson Silverman) Course Vital Signs 01/02/25 01/02/25 13:31 19:38 Temperature 97.9 F 98.3 F Pulse Rate 107 H 102 H Respiratory 16 18 Rate Blood Pressure 184/107 162/107 O2 Sat by Pulse 99 99 Oximetry Medical Decision Making <Karson Silverman - Last Filed: 01/02/25 15:39> <Dominick Garibay - Last Filed: 01/08/25 18:01> - Medical Decision Making I completed the quick note portion of this chart signed Karson Silvreman PA-C (Karson Silverman) Was pt. sent in by a medical professional or institution (MAGGIE Oliveros, [employer], urgent care, hospital, or skilled nursing...) When possible be specific @ -No Did you speak to anyone other than the patient for history (EMS, parent, family, police, friend...)? What history was obtained from this source @ -No Did you review nursing and triage notes (agree or disagree)? Why? @ -I reviewed and agree with nursing and triage notes Were old charts reviewed (outside hosp., previous admission, EMS record, old EKG, old radiological studies, urgent care reports/EKG's, skilled nursing records)? Report findings @ -No old charts were reviewed Differential Diagnosis (chest pain, altered mental status, abdominal pain women, abdominal pain men, vaginal bleeding, weakness, fever, dyspnea, syncope, headache, dizziness, GI bleed, back pain, seizure, CVA, palpatations, mental health, musculoskeletal)? @ - MDM Differential Back Pain: Strain, zoster, cauda equina syndrome, epidural abscess, vertebral osteomyelitis, discitis, fracture, subluxation, disc herniation, DJD, spinal stenosis, dissection, AAA, pancreatitis, peptic ulcer disease, pyelonephritis, kidney stone… this is not meant to be an all-inclusive list. EKG interpreted by me (3pts min.). @ -As above X-rays interpreted by me (1pt min.). @ -None done CT interpreted by me (1pt min.). @ -CT shows no calcified renal calculi or hydronephrosis identified. Attenuated contents are seen within the bladder which may relate to previous contrast administration versus hemorrhagic products. Postsurgical changes. U/S interpreted by me (1pt. min.). @ -None done What testing was considered but not performed or refused? (CT, X-rays, U/S, labs)? Why? @ -None What meds were considered but not given or refused? Why? @ -None Did you discuss the management of the patient with other professionals (professionals i.e. , PA, [employer], lab, RT, psych nurse, vp digital marketing social media and crm, raisin separator operator, teacher, aviation safety officer, supportive employment case manager)? Give summary @ -No Was smoking cessation discussed for >3mins.? @ -No Was critical care preformed (if so, how long)? @ -No Were there social determinants of health that impacted care today? How? (Homelessness, low income, unemployed, alcoholism, drug addiction, transportation, low edu. Level, literacy, decrease access to med. care, shelter, rehab)? @ -No Was there de-escalation of care discussed even if they declined (Discuss DNR or withdrawal of care, Hospice)? DNR status @ -No What co-morbidities impacted this encounter? (DM, HTN, Smoking, COPD, CAD, Ca ncer, CVA, ARF, Chemo, Hep., AIDS, mental health diagnosis, sleep apnea, morbid obesity)? @ -None Was patient admitted / discharged? Hospital course, mention meds given and route, prescriptions, significant lab abnormalities, going to OR and other pertinent info. @ -59-year-old male presenting with chief complaint of right flank pain. Urine shows negative blood and no evidence of infection. CT negative for stone or obstructive uropathy. Patient educated on today's findings. He reports he did just have recent imaging on his back yesterday which corresponds to the CT findings. Provided with pain medication and discharged. follow-up with PCP. Report back to ER with any new or worsening symptoms. Discussed return parameters and answered all questions. Patient conveyed verbal understanding and agreed to the plan. I discussed this case in detail with my attending Dr. Gusman Undiagnosed new problem with uncertain prognosis? @ -No Drug Therapy requiring intensive monitoring for toxicity (Heparin, Nitro, Insulin, Cardizem)? @ -No Were any procedures done? @ -No Diagnosis/symptom? @ -Back pain Acute, or Chronic, or Acute on Chronic? @ -Acute on chronic Uncomplicated (without systemic symptoms) or Complicated (systemic symptoms)? @ -Uncomplicated Side effects of treatment? @ -No Exacerbation, Progression, or Severe Exacerbation? @ -No Poses a threat to life or bodily function? How? (Chest pain, USA, MD, pneumonia, PE, COPD, DKA, ARF, appy, cholecystitis, CVA, Diverticulitis, Homicidal, Suicidal, threat to staff... and all critical care pts) @ -Unlikely (Dominick Garibay) - Lab Data Lab Results 01/02/25 Range/Units 18:28 Urine Color Yellow Urine Appearance Cloudy (Clear) Urine pH 5.5 (5.0-8.0) Ur Specific [place] 1.035 (1.001-1.035) Urine Protein Trace H (Negative) Urine Glucose (UA) 4+ H (Negative) Urine Ketones 2+ H (Negative) Urine Blood Negative (Negative) Urine Nitrite Negative (Negative) Urine Bilirubin Negative (Negative) Urine Urobilinogen <2.0 (<2.0) mg/dL Ur Leukocyte Esterase Negative (Negative) Urine RBC 1 (0-5) /hpf Urine WBC 2 (0-5) /hpf Ur Squamous Epith Cells 3 (0-4) /hpf Hyaline Casts 7 H (0-2) /lpf Urine Mucus Many H (None) /hpf Disposition <Karson Silverman - Last Filed: 01/02/25 15:39> Is patient prescribed a controlled substance at d/c from ED?: No Time of Disposition: 19:37 <Dominick Garibay - Last Filed: 01/08/25 18:01> Clinical Impression: Back pain Disposition: HOME SELF-CARE Condition: Good Instructions (If sedation given, give patient instructions): Chronic Back Pain (DC) Additional Instructions: Follow-up with PCP. Report back to ER with any new or worsening symptoms. Referrals: González Muñiz MD [Primary Care Provider] - 1-2 days
[2025-01-02 18:38] LABS: Appearance,Urine Cloudy (Clear); Bilirubin,Urine Negative (Negative); Blood,Urine Negative (Negative); Color,Urine Yellow; Glucose,Urine (UA) 4+ (Negative); Hyaline Casts,Urine 7 /lpf (0-2); Leukocyte Esterase,Urine Negative (Negative); Mucus,Urine Many /hpf; Nitrite,Urine Negative (Negative); PH, Urine 5.5 (5.0-8.0); Protein,Urine Trace (Negative); RBC,Urine 1 /hpf (0-5); Specific Gravity,Urine 1.035 (1.001-1.035); Squamous Epithelial Cell,Urine 3 /hpf (0-4); Urobilinogen,Urine <2.0 mg/dL (<2.0); WBC,Urine 2 /hpf (0-5)
[2025-01-02 18:57] LABS: Ketones,Urine 2+ (Negative)
--- NOTE | 2025-01-02 19:22 | CT ---
EXAMINATION TYPE: CT abdomen pelvis wo con CT DLP: 1105.4 mGycm, Automated exposure control for dose reduction was used. DATE OF EXAM: 01/02/2025 6:50 PM COMPARISON: CT abdomen pelvis most recent from 10/31/2024 CLINICAL INDICATION:Male, 59 years old with history of R flank pain; rt flank pain TECHNIQUE: Axial CT abdomen pelvis wo con;Sagittal and coronal reformats were created on a separate workstation. Contrast used: mL of , (none if empty) Oral contrast used: without Oral Contrast (none if empty) FINDINGS: LOWER CHEST: Patchy groundglass changes in the lung bases are most likely relating to atelectasis. ABDOMEN LIVER: Diffusely hypoattenuating parenchyma. Morphology appears within normal limits. GALLBLADDER AND BILE DUCTS: The gallbladder is surgically absent. PANCREAS: Unremarkable. SPLEEN: Unremarkable. ADRENAL GLANDS: Unremarkable. KIDNEYS AND URETERS: No evidence of hydronephrosis or renal calculus. The ureters are unremarkable. R ight renal cyst is noted PELVIS BLADDER: Incompletely distended with attenuated contents seen intraluminally. REPRODUCTIVE: Prostate is not enlarged. ABDOMEN & PELVIS STOMACH AND BOWEL: Stomach is grossly unremarkable. Small bowel is of normal caliber. Postsurgical ch anges are seen in the splenic flexure. No evidence of bowel obstruction. PERITONEUM/RETROPERITONEUM: No evidence of pneumoperitoneum or free fluid. VASCULATURE: No evidence of aortic aneurysm. MUSCULOSKELETAL: Posterior fusion hardware is redemonstrated in the lumbosacral spine. No acute osseo us abnormalities LYMPH NODES: No gross evidence for lymphadenopathy. SOFT TISSUE/ABDOMINAL WALL: Mild soft tissue edema is seen in the flanks and posterior subcutaneous t issues. IMPRESSION: 1. No calcified renal calculi or hydronephrosis identified. 2. Attenuated contents are seen within the bladder which may relate to previous contrast administrati on versus hemorrhagic products. Correlate with urinalysis. 3. Postsurgical changes. [facility], , 01/02/2025 7:19 PM
[2025-01-02 19:40] VITALS: PULSE 102; RESP 18
[2025-01-02 19:55] VITALS: BP 162/107; TEMP 98.3
[2025-01-02] MEDS: HYDROmorphone 0.5 MG/0.5 ML SYRINGE IM STA (20:05)
== END 2025-01-02 20:13 | disposition home or self-care (01) ==
LOC: EC 13:04
DX: M54.9 Dorsalgia, unspecified (principal); R11.2 Nausea with vomiting, unspecified; R10.9 Unspecified abdominal pain; Z88.8 Allergy status to other drugs, medicaments and biological substances; Z88.1 Allergy status to other antibiotic agents; Z88.5 Allergy status to narcotic agent; Z88.6 Allergy status to analgesic agent
CPT/HCPCS: 99284; 96372; 81001; 74176; J1171

== ENCOUNTER 2025-01-10 14:20 | Emergency (ER) | payer OTHER ==
[2025-01-10 14:32] VITALS: TEMP 97.7
--- NOTE | 2025-01-10 14:53 | ED ---
Neck Injury/Pain HPI - General Chief Complaint: Neck Pain/Injury Stated Complaint: neck pain Time Seen by Provider: 01/10/25 14:35 Source: patient, RN notes reviewed Mode of arrival: ambulatory Limitations: no limitations - History of Present Illness Initial Comments: This is a 59-year-old male who presents to the emergency department for neck pain. Patient is well-known to this emergency department for recurrent visits related to pain. States that he was transferring his mother, who is rather large, into bed and in the process pinched nerve in his neck. Currently complains of pain in the neck and upper back since this occurred yesterday. He is dependent on opioids, which have not been helping this pain. States that he is following up with a surgeon this upcoming week for preoperative testing and they are going to plan on doing a cervical fusion. - Related Data Home Medications Medication Instructions Recorded Confirmed Insulin Lispro [humaLOG Kwikpen] See Protocol SQ ACHS 06/16/21 10/31/24 Insulin Glargine,Hum.rec.anlog 34 units SQ DAILY 10/20/22 10/31/24 [Lantus Solostar Pen] Gabapentin 600 mg PO TID 03/25/24 10/31/24 Insulin Lispro [humaLOG Kwikpen] 10 unit SQ TID-W/MEALS 03/25/24 10/31/24 methocarbamoL [Robaxin-750] 750 mg PO TID 03/25/24 10/31/24 oxyCODONE-APAP 5-325MG [Percocet 1 tab PO QID 04/29/24 10/31/24 5-325 mg] Nitroglycerin Sl Tabs [Nitrostat] 0.4 mg SUBLINGUAL Q5M PRN 06/14/24 10/31/24 Apixaban [Eliquis] 5 mg PO BID 10/31/24 10/31/24 Atorvastatin [Lipitor] 20 mg PO DAILY 10/31/24 10/31/24 Insulin Glargine,Hum.rec.anlog 34 units SQ HS PRN 10/31/24 10/31/24 [Lantus Solostar Pen] Isosorbide Mononitrate ER [Imdur] 30 mg PO DAILY 10/31/24 10/31/24 Losartan [Cozaar] 50 mg PO DAILY 10/31/24 10/31/24 Omeprazole [PriLOSEC] 40 mg PO DAILY 10/31/24 10/31/24 amLODIPine [Norvasc] 5 mg PO DAILY 10/31/24 10/31/24 carvediloL [Coreg] 6.25 mg PO BID 10/31/24 10/31/24 Allergies Allergy/AdvReac Type Severity Reaction Status Date / Time doxycycline Allergy Swelling Verified 01/10/25 14:35 ketorolac tromethamine Allergy Rash/Hives Verified 01/10/25 14:35 [From Toradol] morphine Allergy Rash/Hives Verified 01/10/25 14:35 metoclopramide HCl AdvReac Dystonic Verified 01/10/25 14:35 [From Reglan] Reaction prochlorperazine edisylate AdvReac Dystonic Verified 01/10/25 14:35 [From Compazine] Reaction prochlorperazine maleate AdvReac Dystonic Verified 01/10/25 14:35 [From Compazine] Reaction Review of Systems ROS Statement: Those systems with pertinent positive or pertinent negative responses have been documented in the HPI. ROS Other: All systems not noted in ROS Statement are negative. Past Medical History Past Medical History: Asthma, Coronary Artery Disease (CAD), Cancer, Chest Pain / Angina, Diabetes Mellitus, GERD/Reflux, GI Bleed, Hyperlipidemia, Hypertension, Myocardial Infarction ([place]), Mitral Valve Prolapse (MVP), Pulmonary Embolus (PE), Sleep Apnea/CPAP/BIPAP Additional Past Medical History / Comment(s): Asthmatic bronchitis-chronic, IDDM type II, neuropathy bilateral feet, lower and upper GI bleeds, PUD, diverticulit is, colectomy d/t benign mass/intusseption, BPH, renal cysts, nephrolithiais, UTI with sepsis, chronic back pain 2ndary to herniated lumbar discs/sciatica, JARED does not use his Cpap, MVP, murmur, chronic dysphagia, colon cancer Last Myocardial Infarction Date:: 2011 History of Any Multi-Drug Resistant Organisms: C-DIFF, MRSA Date of last positivie culture/infection: 2015 MDRO Source:: left axilla Past Surgical History: Appendectomy, Back Surgery, Cholecystectomy, Heart C atheterization, Hernia Repair, Orthopedic Surgery Additional Past Surgical History / Comment(s): Lumbar decompression/fusion/laminectomy, spinal stimulator, T lift procedure, L inguinal hernia repair, multiple ESWLs/stents/double J caths, colonoscopy, 02/2020 colectomy, EGDs for food obstructions and dilations, NERVE STIMULATOR Past Anesthesia/Blood Transfusion Reactions: No Reported Reaction Past Psychological History: No Psychological Hx Reported Smoking Status: Never smoker Past Alcohol Use History: None Reported Past Drug Use History: None Reported - Past Family History Father Family Medical History: Chest Pain / Angina Additional Family Medical History / Comment(s): "lung problems" Mother Family Medical History: Blood Disorder, Cancer, Chest Pain / Angina, Congestive Heart Failure (CHF), Osteoarthritis (OA), Thyroid Disorder Additional Family Medical History / Comment(s): "grader operator cancer" blood clots General Exam Limitations: no limitations General appearance: alert, in no apparent distress Head exam: Present: atraumatic, normocephalic, normal inspection Neck exam: Present: normal inspection, full ROM Respiratory exam: Present: normal lung sounds bilaterally. Absent: respiratory distress, wheezes, rales, rhonchi, stridor Cardiovascular Exam: Present: regular rate, normal rhythm Neurological exam: Present: alert, oriented X3, CN II-XII intact Psychiatric exam: Present: normal affect, normal mood Skin exam: Present: warm, dry, intact, normal color. Absent: rash Course Vital Signs 01/10/25 01/10/25 14:29 15:16 Temperature 97.7 F Pulse Rate 117 H 98 Respiratory 21 18 Rate Blood Pressure 157/97 167/95 O2 Sat by Pulse 98 98 Oximetry Medical Decision Making - Medical Decision Making This is a 59 year old male who presents to the emergency department for neck pain. Was pt. sent in by a medical professional or institution? @ -No Did you speak to anyone other than the patient for history? @ -No Did you review nursing and triage notes? @ -Yes, and I agree, it is accurate with regards to the patient's symptoms. Were old charts reviewed? @ -No Differential Diagnosis? @ -Differential Neck Pain: Fracture, dislocation, contusion, strain, DDD, disc herniation, this is not meant to be an all-inclusive list. EKG interpreted by me (3pts min.)? @ -Not obtained X-rays interpreted by me (1pt min.)? @ -Not obtained CT interpreted by me (1pt min.)? @ -Not obtained U/S interpreted by me (1pt. min.)? @ -Not obtained What testing was considered but not performed? (CT, X-rays, U/S, labs)? Why? @ -None What meds were considered but not given? Why? @ -None Did you discuss the management of the patient with other professionals? @ -No Did you reconcile home meds? @ -No Was smoking cessation discussed for >3mins.? @ -No Was critical care preformed (if so, how long)? @ -No Were there social determinants of health that impacted care today? How? (Homelessness, low income, unemployed, alcoholism, drug addiction, transporta tion, low edu. Level, literacy, decrease access to med. care, longterm, rehab)? @ -No Was there de-escalation of care discussed even if they declined? (Discuss DNR or withdrawal of care, Hospice)? @ -No What co-morbidities impacted this encounter? (DM, HTN, Smoking, COPD, CAD, Cancer, CVA, Hep., AIDS, mental health diagnosis, sleep apnea, morbid obesity)? @ -Chronic pain Was patient admitted / discharged? @ -Discharged. Given that there was no specific injury and he essentially just strained his neck with movement, discussed that imaging would likely not be of any benefit. Patient is in agreement. Pain medication provided and he was discharged home in stable condition. Case discussed with ED attending Dr. Leiva. Return precautions reviewed in depth, the patient is instructed to return to the emergency department with any new, worsening, or concerning symptoms. Patient verbalized understanding. Undiagnosed new problem with uncertain prognosis? @ -None Drug Therapy requiring intensive monitoring for toxicity (Heparin, Nitro, Insulin, Cardizem)? @ -None Were any procedures done? @ -None Diagnosis/symptom? @ -Cervical strain Acute, or Chronic, or Acute on Chronic? @ -Acute Uncomplicated (without systemic symptoms) or Complicated (systemic symptoms)? @ -Uncomplicated Side effects of treatment? @ -No Exacerbation, Progression, or Severe Exacerbation] @ -Not applicable Poses a threat to life or bodily function? @ -No Disposition Clinical Impression: Strain of neck muscle Disposition: HOME SELF-CARE Instructions (If sedation given, give patient instructions): Cervical Strain (ED) Additional Instructions: Return to the emergency department with any new, worsening, or concerning symptoms. Follow up with your primary care provider in 1-2 days. Is patient prescribed a controlled substance at d/c from ED?: No Referrals: González Muñiz MD [Primary Care Provider] - 1-2 days Time of Disposition: 14:53
[2025-01-10] MEDS: ORPHENADRINE 30 MG/ML 2 ML VIAL IM STA (15:11)
[2025-01-10] MEDS: HYDROmorphone 1 MG/ML 1 ML SYRINGE IM STA (15:11)
[2025-01-10 15:18] VITALS: BP 167/95; PULSE 98; RESP 18
== END 2025-01-10 15:19 | disposition home or self-care (01) ==
LOC: EC 14:20
DX: S16.1XXA Strain of muscle, fascia and tendon at neck level, initial encounter (principal); G89.29 Other chronic pain; Z88.5 Allergy status to narcotic agent; Z88.8 Allergy status to other drugs, medicaments and biological substances; Z88.6 Allergy status to analgesic agent; X58.XXXA Exposure to other specified factors, initial encounter
CPT/HCPCS: 99283; 96372 ×2; J2360; J1171

== ENCOUNTER 2025-01-26 19:33 | Emergency (ER) | payer OTHER ==
[2025-01-26 19:38] VITALS: TEMP 98.7
--- NOTE | 2025-01-26 19:57 | ED ---
Recheck HPI - General Chief Complaint: Neck Pain/Injury Stated Complaint: Back pain Time Seen by Provider: 01/26/25 19:45 Source: patient, RN notes reviewed, old records reviewed Mode of arrival: ambulatory Limitations: no limitations - History of Present Illness Initial Comments: This is a 59-year-old male to the ER for evaluation he presents today for evaluation of acute on chronic neck pain MD Complaint: other (Post lumbar puncture headache) -: days(s) Returns Today for: persistent/worsening pain related to initial visit Symptoms Since Prior Visit: worsening pain Context: planned re-check Associated Symptoms: none - Related Data Home Medications Medication Instructions Recorded Confirmed Insulin Lispro [humaLOG Kwikpen] See Protocol SQ ACHS 06/16/21 10/31/24 Insulin Glargine,Hum.rec.anlog 34 units SQ DAILY 10/20/22 10/31/24 [Lantus Solostar Pen] Gabapentin 600 mg PO TID 03/25/24 10/31/24 Insulin Lispro [humaLOG Kwikpen] 10 unit SQ TID-W/MEALS 03/25/24 10/31/24 methocarbamoL [Robaxin-750] 750 mg PO TID 03/25/24 10/31/24 oxyCODONE-APAP 5-325MG [Percocet 1 tab PO QID 04/29/24 10/31/24 5-325 mg] Nitroglycerin Sl Tabs [Nitrostat] 0.4 mg SUBLINGUAL Q5M PRN 06/14/24 10/31/24 Apixaban [Eliquis] 5 mg PO BID 10/31/24 10/31/24 Atorvastatin [Lipitor] 20 mg PO DAILY 10/31/24 10/31/24 Insulin Glargine,Hum.rec.anlog 34 units SQ HS PRN 10/31/24 10/31/24 [Lantus Solostar Pen] Isosorbide Mononitrate ER [Imdur] 30 mg PO DAILY 10/31/24 10/31/24 Losartan [Cozaar] 50 mg PO DAILY 10/31/24 10/31/24 Omeprazole [PriLOSEC] 40 mg PO DAILY 10/31/24 10/31/24 amLODIPine [Norvasc] 5 mg PO DAILY 10/31/24 10/31/24 carvediloL [Coreg] 6.25 mg PO BID 10/31/24 10/31/24 Allergies Allergy/AdvReac Type Severity Reaction Status Date / Time doxycycline Allergy Swelling Verified 01/28/25 00:58 ketorolac tromethamine Allergy Rash/Hives Verified 01/28/25 00:58 [From Toradol] morphine Allergy Rash/Hives Verified 01/28/25 00:58 metoclopramide HCl AdvReac Dystonic Verified 01/28/25 00:58 [From Reglan] Reaction prochlorperazine edisylate AdvReac Dystonic Verified 01/28/25 00:58 [From Compazine] Reaction prochlorperazine maleate AdvReac Dystonic Verified 01/28/25 00:58 [From Compazine] Reaction Review of Systems ROS Statement: Those systems with pertinent positive or pertinent negative responses have been documented in the HPI. ROS Other: All systems not noted in ROS Statement are negative. Past Medical History Past Medical History: Asthma, Coronary Artery Disease (CAD), Cancer, Chest Pain / Angina, Diabetes Mellitus, GERD/Reflux, GI Bleed, Hyperlipidemia, Hypertension, Myocardial Infarction ([place]), Mitral Valve Prolapse (MVP), Pulmonary Embolus (PE), Sleep Apnea/CPAP/BIPAP Additional Past Medical History / Comment(s): Asthmatic bronchitis-chronic, IDDM type II, neuropathy bilateral feet, lower and upper GI bleeds, PUD, diverticulitis, colectomy d/t benign mass/intusseption, BPH, renal cysts, nephrolithiais, UTI with sepsis, chronic back pain 2ndary to herniated lumbar discs/sciatica, JARED does not use his Cpap, MVP, murmur, chronic dysphagia, colon cancer Last Myocardial Infarction Date:: 2011 History of Any Multi-Drug Resistant Organisms: C-DIFF, MRSA Date of last positivie culture/infection: 2015 MDRO Source:: left axilla Past Surgical History: Appendectomy, Back Surgery, Cholecystectomy, Heart Catheterization, Hernia Repair, Orthopedic Surgery Additional Past Surgical History / Comment(s): Lumbar decompression/fusion/laminectomy, spinal stimulator, T lift procedure, L inguinal hernia repair, multiple ESWLs/stents/double J caths, colonoscopy, 02/2020 colectomy, EGDs for food obstructions and dilations, NERVE STIMULATOR Past Anesthesia/Blood Transfusion Reactions: No Reported Reaction Past Psychological History: No Psychological Hx Reported Smoking Status: Never smoker Past Alcohol Use History: None Reported Past Drug Use History: None Reported - Past Family History Father Family Medical History: Chest Pain / Angina Additional Family Medical History / Comment(s): "lung problems" Mother Family Medical History: Blood Disorder, Cancer, Chest Pain / Angina, Congestive Heart Failure (CHF), Osteoarthritis (OA), Thyroid Disorder Additional Family Medical History / Comment(s): "material reprocessing associate cancer" blood clots General Exam Limitations: no limitations Course Vital Signs 01/26/25 01/26/25 19:34 20:48 Temperature 98.7 F Pulse Rate 134 H 96 Respiratory 20 18 Rate Blood Pressure 152/98 179/112 O2 Sat by Pulse 98 96 Oximetry - Reevaluation(s) Reevaluation #1: 01/26/25 20:23 Medical records reviewed Reevaluation #2: 01/26/25 20:24 Headache and neck pain are improved Reevaluation #3: 01/26/25 20:24 Patient informed of results questions answered Reevaluation #4: Was pt. sent in by a medical professional or institution (, PA, PRODUCTION CHECKER, urgent care, hospital, or senior living...) When possible be specific @ -no Did you speak to anyone other than the patient for history (EMS, parent, family, police, friend...)? What history was obtained from this source @ -no Did you review nursing and triage notes (agree or disagree)? Why? @ -agree Are old charts reviewed (outside hosp., previous admission, EMS record, old EKG, old radiological studies, urgent care reports/EKG's, senior living records)? Report findings @ -yes Differential Diagnosis (chest pain, altered mental status, abdominal pain women, abdominal pain men, vaginal bleeding, weakness, fever, dyspnea, syncope, headache, dizziness, GI bleed, back pain, seizure, CVA, palpatations, mental health, musculoskeletal)? @ -prior EKG interpreted by me (3pts min.). @ -no X-rays interpreted by me (1pt min.). @ -no CT interpreted by me (1pt min.). @ -no U/S interpreted by me (1pt. min.). @ -no What testing was considered but not performed or refused? (CT, X-rays, U/S, labs)? Why? @ -none What meds were considered but not given or refused? Why? @ -none Did you discuss the management of the patient with other professionals (professionals i.e. , PA, PRODUCTION CHECKER, lab, RT, psych nurse, social worker aide, microbiological analyst, teacher, deck officer, case managers)? Give summary @ -no Was smoking cessation discussed for >3mins.? @ -no Was critical care preformed (if so, how long)? @ -no Were there social determinants of health that impacted care today? How? (Homelessness, low income, unemployed, alcoholism, drug addiction, transportation, low edu. Level, literacy, decrease access to med. care, assisted, rehab)? @ -none Was there de-escalation of care discussed even if they declined (Discuss DNR or withdrawal of care, Hospice)? DNR status @ -no What co-morbidities impacted this encounter? (DM, HTN, Smoking, COPD, CAD, Cancer, CVA, ARF, Chemo, Hep., AIDS, mental health diagnosis, sleep apnea, morbid obesity)? @ -none Was patient admitted / discharged? Hospital course, mention meds given and route, prescriptions, significant lab abnormalities, going to OR and other pertinent info. @ - 59 male severe headache severe back pain severe neck pain pain controlled patient can be discharged home I think discharge Undiagnosed new problem with uncertain prognosis? @ -no Drug Therapy requiring intensive monitoring for toxicity (Heparin, Nitro, Insulin, Cardizem)? @ -no Were any procedures done? @ -no Diagnosis/symptom? @ -Chronic pain Acute, or Chronic, or Acute on Chronic? @ -Acute Uncomplicated (without systemic symptoms) or Complicated (systemic symptoms)? @ -Complicated Side effects of treatment? @ -no Exacerbation, Progression, or Severe Exacerbation? @ -exacerbation Poses a threat to life or bodily function? How? (Chest pain, USA, IA, pneumonia, PE, COPD, DKA, ARF, appy, cholecystitis, CVA, Diverticulitis, Homicidal, Suicidal, threat to staff... and all critical care pts) @ -no Reevaluation #5: Differential Back Pain: Strain, zoster, cauda equina syndrome, epidural abscess, vertebral osteomyelitis, discitis, fracture, subluxation, disc herniation, DJD, spinal stenosis, dissection, AAA, pancreatitis, peptic ulcer disease, pyelonephritis, kidney stone, this is not meant to be an all-inclusive list. Medical Decision Making - Medical Decision Making 59 male severe headache severe back pain severe neck pain pain controlled patient can be discharged home Disposition Clinical Impression: Back pain, Strain of neck muscle, Chronic neck pain Disposition: HOME SELF-CARE Condition: Fair Instructions (If sedation given, give patient instructions): Cervical Strain (ED), Cervical Sprain (ED) Is patient prescribed a controlled substance at d/c from ED?: No Referrals: González Muñiz MD [Primary Care Provider] - 1-2 days Time of Disposition: 20:20
[2025-01-26] MEDS: LIDOCAINE 4% PATCH TOPICAL STA (20:26)
[2025-01-26] MEDS: cloNIDine 0.2 MG/24HR PATCH TRANSDERM STA (20:26)
[2025-01-26] MEDS: HYDROmorphone 1 MG/ML 1 ML SYRINGE IM STA ×2 (20:44→20:48)
[2025-01-26 20:53] VITALS: BP 179/112; PULSE 96; RESP 18
== END 2025-01-26 21:08 | disposition home or self-care (01) ==
LOC: EC 19:33
DX: S16.1XXA Strain of muscle, fascia and tendon at neck level, initial encounter (principal); M54.9 Dorsalgia, unspecified; G89.29 Other chronic pain; Z88.8 Allergy status to other drugs, medicaments and biological substances; X58.XXXA Exposure to other specified factors, initial encounter; Y84.4 Aspiration of fluid as the cause of abnormal reaction of the patient, or of later complication, without mention of misadventure at the time of the procedure
CPT/HCPCS: 99283; 96372; J1171

== ENCOUNTER 2025-01-28 00:54 | Emergency (ER) | payer OTHER ==
[2025-01-28 00:59] VITALS: TEMP 98.6
[2025-01-28 01:05] LABS: Glucose,Whole Blood 363 mg/dL (70-110)
[2025-01-28] MEDS: HYDROmorphone 0.5 MG/0.5 ML SYRINGE IVP STA ×2 (01:58→03:03)
[2025-01-28] MEDS: HYDROmorphone 0.5 MG/0.5 ML SYRINGE IM STA ×2 (02:01→03:05)
[2025-01-28 02:50] VITALS: BP 163/92
--- NOTE | 2025-01-28 03:05 | ED ---
Back Pain HPI - General Chief Complaint: Back Pain/Injury Stated Complaint: Fall Time Seen by Provider: 01/28/25 00:56 Source: patient, EMS - History of Present Illness Initial Comments: This patient is a 59-year-old man well-known to this department who complains of a flare of his chronic back pain after he had a low mechanism of injury, ground- level fall. The patient denies motor or sensory change to the lower extremities. No change in bladder or bowel function. He states that his pain has been flaring and he was hoping to have some pain relief. No fevers MD Complaint: back pain, fall -: hour(s) Similar Symptoms Previously: Yes Place: home Radiation: none Severity: severe Quality: aching Consistency: constant Improves With: none Worsens With: movement Associated Symptoms: denies other symptoms - Related Data Home Medications Medication Instructions Recorded Confirmed Insulin Lispro [humaLOG Kwikpen] See Protocol SQ ACHS 06/16/21 10/31/24 Insulin Glargine,Hum.rec.anlog 34 units SQ DAILY 10/20/22 10/31/24 [Lantus Solostar Pen] Gabapentin 600 mg PO TID 03/25/24 10/31/24 Insulin Lispro [humaLOG Kwikpen] 10 unit SQ TID-W/MEALS 03/25/24 10/31/24 methocarbamoL [Robaxin-750] 750 mg PO TID 03/25/24 10/31/24 oxyCODONE-APAP 5-325MG [Percocet 1 tab PO QID 04/29/24 10/31/24 5-325 mg] Nitroglycerin Sl Tabs [Nitrostat] 0.4 mg SUBLINGUAL Q5M PRN 06/14/24 10/31/24 Apixaban [Eliquis] 5 mg PO BID 10/31/24 10/31/24 Atorvastatin [Lipitor] 20 mg PO DAILY 10/31/24 10/31/24 Insulin Glargine,Hum.rec.anlog 34 units SQ HS PRN 10/31/24 10/31/24 [Lantus Solostar Pen] Isosorbide Mononitrate ER [Imdur] 30 mg PO DAILY 10/31/24 10/31/24 Losartan [Cozaar] 50 mg PO DAILY 10/31/24 10/31/24 Omeprazole [PriLOSEC] 40 mg PO DAILY 10/31/24 10/31/24 amLODIPine [Norvasc] 5 mg PO DAILY 10/31/24 10/31/24 carvediloL [Coreg] 6.25 mg PO BID 10/31/24 10/31/24 Allergies Allergy/AdvReac Type Severity Reaction Status Date / Time doxycycline Allergy Swelling Verified 01/28/25 21:02 ketorolac tromethamine Allergy Rash/Hives Verified 01/28/25 21:02 [From Toradol] morphine Allergy Rash/Hives Verified 01/28/25 21:02 metoclopramide HCl AdvReac Dystonic Verified 01/28/25 21:02 [From Reglan] Reaction prochlorperazine edisylate AdvReac Dystonic Verified 01/28/25 21:02 [From Compazine] Reaction prochlorperazine maleate AdvReac Dystonic Verified 01/28/25 21:02 [From Compazine] Reaction Review of Systems ROS Statement: Those systems with pertinent positive or pertinent negative responses have been documented in the HPI. ROS Other: All systems not noted in ROS Statement are negative. Constitutional: Denies: fever, chills, weakness Gastrointestinal: Denies: abdominal pain, vomiting, diarrhea, constipation Genitourinary: Denies: dysuria, testicular pain, testicular mass Musculoskeletal: Reports: as per HPI, back pain Neurological: Denies: weakness, numbness, paresthesias Past Medical History Past Medical History: Asthma, Coronary Artery Disease (CAD), Cancer, Chest Pain / Angina, Diabetes Mellitus, GERD/Reflux, GI Bleed, Hyperlipidemia, Hypertension, Myocardial Infarction (ID), Mitral Valve Prolapse (MVP), Pulmonary Embolus (PE), Sleep Apnea/CPAP/BIPAP Additional Past Medical History / Comment(s): Asthmatic bronchitis-chronic, IDDM type II, neuropathy bilateral feet, lower and upper GI bleeds, PUD, diverticulitis, colectomy d/t benign mass/intusseption, BPH, renal cysts, nephrolithiais, UTI with sepsis, chronic back pain 2ndary to herniated lumbar discs/sciatica, JARED does not use his Cpap, MVP, murmur, chronic dysphagia, colon cancer Last Myocardial Infarction Date:: 2011 History of Any Multi-Drug Resistant Organisms: C-DIFF, MRSA Date of last positivie culture/infection: 2016 MDRO Source:: left axilla Past Surgical History: Appendectomy, Back Surgery, Cholecystectomy, Heart Catheterization, Hernia Repair, Orthopedic Surgery Additional Past Surgical History / Comment(s): Lumbar decompression/fusion/laminectomy, spinal stimulator, T lift procedure, L inguinal hernia repair, multiple ESWLs/stents/double J caths, colonoscopy, 02/2020 colectomy, EGDs for food obstructions and dilations, NERVE STIMULATOR Past Anesthesia/Blood Transfusion Reactions: No Reported Reaction Past Psychological History: No Psychological Hx Reported Smoking Status: Never smoker Past Alcohol Use History: None Reported Past Drug Use History: None Reported - Past Family History Father Family Medical History: Chest Pain / Angina Additional Family Medical History / Comment(s): "lung problems" Mother Family Medical History: Blood Disorder, Cancer, Chest Pain / Angina, Congestive Heart Failure (CHF), Osteoarthritis (OA), Thyroid Disorder Additional Family Medical History / Comment(s): "separator tender cancer" blood clots General Exam Limitations: no limitations General appearance: alert, in no apparent distress Head exam: Present: atraumatic Neck exam: Present: normal inspection, full ROM. Absent: tenderness Respiratory exam: Present: normal lung sounds bilaterally. Absent: respiratory distress, wheezes, rales, rhonchi, stridor, accessory muscle use Cardiovascular Exam: Present: normal rhythm, tachycardia (Rate was 104 at my exam), normal heart sounds. Absent: systolic murmur, diastolic murmur, rubs, gallop GI/Abdominal exam: Present: soft. Absent: distended, tenderness, guarding, rebound, rigid Extremities exam: Present: normal inspection, normal capillary refill. Absent: pedal edema Back exam: Present: normal inspection, paraspinal tenderness. Absent: CVA tenderness (R), CVA tenderness (L), vertebral tenderness Neurological exam: Present: alert, reflexes normal. Absent: motor sensory deficit Skin exam: Present: warm, dry, intact, normal color. Absent: rash Course Vital Signs 01/28/25 01/28/25 01/28/25 00:55 02:46 03:12 Temperature 98.6 F Pulse Rate 118 H 95 81 Respiratory 18 18 16 Rate Blood Pressure 190/104 163/92 O2 Sat by Pulse 99 97 99 Oximetry Medical Decision Making - Medical Decision Making Was pt. sent in by a medical professional or institution (MAGGIE Oliveros, PSYCHIATRIC TECHNICIAN ASSISTANT, urgent care, hospital, or senior living...) When possible be specific @ -[No] Did you speak to anyone other than the patient for history (EMS, parent, family, police, friend...)? What history was obtained from this source @ -[No] Did you review nursing and triage notes (agree or disagree)? Why? @ -[I reviewed and agree with nursing and triage notes] Were old charts reviewed (outside hosp., previous admission, EMS record, old EKG, old radiological studies, urgent care reports/EKG's, senior living records)? Report findings @ -[No old charts were reviewed] Differential Diagnosis (chest pain, altered mental status, abdominal pain women, abdominal pain men, vaginal bleeding, weakness, fever, dyspnea, syncope, headache, dizziness, GI bleed, back pain, seizure, CVA, palpatations, mental health, musculoskeletal)? @ -Differential Back Pain: Strain, zoster, cauda equina syndrome, epidural abscess, vertebral osteomyelitis, discitis, fracture, subluxation, disc herniation, DJD, spinal stenosis, dissection, AAA, pancreatitis, peptic ulcer disease, pyelonephritis, kidney stone, this is not meant to be an all-inclusive list. EKG interpreted by me (3pts min.). @ -[As above] X-rays interpreted by me (1pt min.). @ -[None done] CT interpreted by me (1pt min.). @ -[None done] U/S interpreted by me (1pt. min.). @ -[None done] What testing was considered but not performed or refused? (CT, X-rays, U/S, labs)? Why? @ -[None] What meds were considered but not given or refused? Why? @ -[None] Did you discuss the management of the patient with other professionals (professionals i.e. MAGGIE Oliveros, PSYCHIATRIC TECHNICIAN ASSISTANT, lab, RT, psych nurse, social sciences chair, electronic specialist, teacher, administrative hearing officer, case investigator)? Give summary @ -[No] Was smoking cessation discussed for >3mins.? @ -[No] Was critical care preformed (if so, how long)? @ -[No] Were there social determinants of health that impacted care today? How? (Homelessness, low income, unemployed, alcoholism, drug addiction, transportation, low edu. Level, literacy, decrease access to med. care, nursing home, rehab)? @ -[No] Was there de-escalation of care discussed even if they declined (Discuss DNR or withdrawal of care, Hospice)? DNR status @ -[No] What co-morbidities impacted this encounter? (DM, HTN, Smoking, COPD, CAD, Cancer, CVA, ARF, Chemo, Hep., AIDS, mental health diagnosis, sleep apnea, morbid obesity)? @ -Chronic back pain Was patient admitted / discharged? Hospital course, mention meds given and route, prescriptions, significant lab abnormalities, going to OR and other pertinent info. @ -[Patient is 59-year-old man with chronic back pain which flared up tonight after low mechanism of injury fall. There is nothing in the history and physical it points towards spinal fracture/subluxation. The patient did have relief of symptoms following analgesics and is ready to go home. Undiagnosed new problem with uncertain prognosis? @ -[No] Drug Therapy requiring intensive monitoring for toxicity (Heparin, Nitro, Insulin, Cardizem)? @ -[No] Were any procedures done? @ -[No] Diagnosis/symptom? @ -[Acute fall injury Acute on chronic back pain Acute, or Chronic, or Acute on Chronic? @ -[default] Uncomplicated (without systemic symptoms) or Complicated (systemic symptoms)? @ -[Uncomplicated Side effects of treatment? @ -[No] Exacerbation, Progression, or Severe Exacerbation? @ -[No] Poses a threat to life or bodily function? How? (Chest pain, USA, ID, pneumonia, PE, COPD, DKA, ARF, appy, cholecystitis, CVA, Diverticulitis, Homicidal, Suicidal, threat to staff... and all critical care pts) @ -[No] All treatments are based on ideal body weight as in ED triage - Lab Data Lab Results 01/28/25 Range/Units 01:03 POC Glucose (mg/dL) 363 H (70-110) mg/dL POC Glu Concrete Spreader ID Bin Garcia Disposition Clinical Impression: Chronic neck pain, Chronic back pain Disposition: HOME SELF-CARE Condition: Good Instructions (If sedation given, give patient instructions): Acute Low Back Pain (ED) Is patient prescribed a controlled substance at d/c from ED?: No Referrals: González Muñiz MD [Primary Care Provider] - 1-2 days
[2025-01-28 03:13] VITALS: PULSE 81; RESP 16
== END 2025-01-28 03:13 | disposition home or self-care (01) ==
LOC: EC 00:54
DX: G89.29 Other chronic pain (principal); M54.9 Dorsalgia, unspecified; M54.2 Cervicalgia; Z88.8 Allergy status to other drugs, medicaments and biological substances
CPT/HCPCS: 36415; 99283; 96372; J1171

== ENCOUNTER 2025-01-28 13:24 | Emergency (ER) | payer OTHER ==
[2025-01-28 13:29] VITALS: TEMP 98.2
--- NOTE | 2025-01-28 13:46 | ED ---
Back Pain HPI - General Chief Complaint: Back Pain/Injury Stated Complaint: Back Pain Time Seen by Provider: 01/28/25 13:46 Source: patient, EMS, RN notes reviewed, old records reviewed Mode of arrival: EMS Limitations: no limitations - History of Present Illness Initial Comments: 59-year-old male presented to ER via EMS for evaluation of back pain. Patient reports he has an extensive history of cervical, thoracic and lumbar back surgeries. He has followed up at [facility] and had recent angiogram completed showing disc herniation to cervical region. Patient reports 4 days ago he was eating his disabled mother with transfers and he exacerbated his pain. He states since then he has been in uncontrolled pain. Patient has been seen over the past couple of days for similar complaint. He has been taking prescribed Percocet, gabapentin and Robaxin without relief of discomfort. He denies any new injuries from prior discharge this morning. He denies any paresthesias to bilateral upper extremities. No chest pain, shortness of breath. No bowel or bladder incontinence, saddle paresthesias, fevers or history of IV drug abuse. Patient denies any headache, dizziness, lightheadedness, visual disturbances or weakness. He reports he attempted to reach out to neurosurgeon out of [facility] but states they told him to report to the ER for pain control. He is scheduled to follow-up with them February 24. Patient reports he has someone who can drive him to [facility] tomorrow if needed. - Related Data Home Medications Medication Instructions Recorded Confirmed Insulin Lispro [humaLOG Kwikpen] See Protocol SQ ACHS 06/16/21 10/31/24 Insulin Glargine,Hum.rec.anlog 34 units SQ DAILY 10/20/22 10/31/24 [Lantus Solostar Pen] Gabapentin 600 mg PO TID 03/25/24 10/31/24 Insulin Lispro [humaLOG Kwikpen] 10 unit SQ TID-W/MEALS 03/25/24 10/31/24 methocarbamoL [Robaxin-750] 750 mg PO TID 03/25/24 10/31/24 oxyCODONE-APAP 5-325MG [Percocet 1 tab PO QID 04/29/24 10/31/24 5-325 mg] Nitroglycerin Sl Tabs [Nitrostat] 0.4 mg SUBLINGUAL Q5M PRN 06/14/24 10/31/24 Apixaban [Eliquis] 5 mg PO BID 10/31/24 10/31/24 Atorvastatin [Lipitor] 20 mg PO DAILY 10/31/24 10/31/24 Insulin Glargine,Hum.rec.anlog 34 units SQ HS PRN 10/31/24 10/31/24 [Lantus Solostar Pen] Isosorbide Mononitrate ER [Imdur] 30 mg PO DAILY 10/31/24 10/31/24 Losartan [Cozaar] 50 mg PO DAILY 10/31/24 10/31/24 Omeprazole [PriLOSEC] 40 mg PO DAILY 10/31/24 10/31/24 amLODIPine [Norvasc] 5 mg PO DAILY 10/31/24 10/31/24 carvediloL [Coreg] 6.25 mg PO BID 10/31/24 10/31/24 Allergies Allergy/AdvReac Type Severity Reaction Status Date / Time doxycycline Allergy Swelling Verified 01/28/25 00:58 ketorolac tromethamine Allergy Rash/Hives Verified 01/28/25 00:58 [From Toradol] morphine Allergy Rash/Hives Verified 01/28/25 00:58 metoclopramide HCl AdvReac Dystonic Verified 01/28/25 00:58 [From Reglan] Reaction prochlorperazine edisylate AdvReac Dystonic Verified 01/28/25 00:58 [From Compazine] Reaction prochlorperazine maleate AdvReac Dystonic Verified 01/28/25 00:58 [From Compazine] Reaction Review of Systems ROS Statement: Those systems with pertinent positive or pertinent negative responses have been documented in the HPI. ROS Other: All systems not noted in ROS Statement are negative. Past Medical History Past Medical History: Asthma, Coronary Artery Disease (CAD), Cancer, Chest Pain / Angina, Diabetes Mellitus, GERD/Reflux, GI Bleed, Hyperlipidemia, Hypertension, Myocardial Infarction (NH), Mitral Valve Prolapse (MVP), Pulmonary Embolus (PE), Sleep Apnea/CPAP/BIPAP Additional Past Medical History / Comment(s): Asthmatic bronchitis-chronic, IDDM type II, neuropathy bilateral feet, lower and upper GI bleeds, PUD, diverticulitis, colectomy d/t benign mass/intusseption, BPH, renal cysts, nephrolithiais, UTI with sepsis, chronic back pain 2ndary to herniated lumbar discs/sciatica, JARED does not use his Cpap, MVP, murmur, chronic dysphagia, colon cancer Last Myocardial Infarction Date:: 2011 History of Any Multi-Drug Resistant Organisms: C-DIFF, MRSA Date of last positivie culture/infection: 2015 MDRO Source:: left axilla Past Surgical History: Appendectomy, Back Surgery, Cholecystectomy, Heart Catheterization, Hernia Repair, Orthopedic Surgery Additional Past Surgical History / Comment(s): Lumbar decompression/fusion/laminectomy, spinal stimulator, T lift procedure, L inguinal hernia repair, multiple ESWLs/stents/double J caths, colonoscopy, 02/2020 colectomy, EGDs for food obstructions and dilations, NERVE STIMULATOR Past Anesthesia/Blood Transfusion Reactions: No Reported Reaction Past Psychological History: No Psychological Hx Reported Smoking Status: Never smoker Past Alcohol Use History: None Reported Past Drug Use History: None Reported - Past Family History Father Family Medical History: Chest Pain / Angina Additional Family Medical History / Comment(s): "lung problems" Mother Family Medical History: Blood Disorder, Cancer, Chest Pain / Angina, Congestive Heart Failure (CHF), Osteoarthritis (OA), Thyroid Disorder Additional Family Medical History / Comment(s): "microfilm operator cancer" blood clots General Exam Limitations: no limitations General appearance: alert, in no apparent distress Neck exam: Present: normal inspection. Absent: tenderness, meningismus, lymphadenopathy Respiratory exam: Present: normal lung sounds bilaterally. Absent: respiratory distress, wheezes, rales, rhonchi, stridor Cardiovascular Exam: Present: regular rate, normal rhythm, normal heart sounds. Absent: systolic murmur, diastolic murmur, rubs, gallop, clicks Extremities exam: Present: normal inspection, full ROM, normal capillary refill (2+ bilateral radial and PT pulses. 4-5+ bilateral upper extremity strength.). Absent: tenderness, pedal edema, joint swelling, calf tenderness Neurological exam: Present: alert, oriented X3, CN II-XII intact Skin exam: Present: warm, dry, intact, normal color. Absent: rash Course Vital Signs 01/28/25 01/28/25 13:27 14:09 Temperature 98.2 F Pulse Rate 103 H 99 Respiratory 18 16 Rate Blood Pressure 176/94 171/93 O2 Sat by Pulse 99 99 Oximetry Medical Decision Making - Medical Decision Making Was pt. sent in by a medical professional or institution (MAGGIE Oliveros, FLEET ADMINISTRATIVE ASSISTANT, urgent care, hospital, or intermediate...) When possible be specific @ -[No] Did you speak to anyone other than the patient for history (EMS, parent, family, police, friend...)? What history was obtained from this source @ -[No] Did you review nursing and triage notes (agree or disagree)? Why? @ -[I reviewed and agree with nursing and triage notes] Were old charts reviewed (outside hosp., previous admission, EMS record, old EKG, old radiological studies, urgent care reports/EKG's, intermediate records)? Report findings @ -Prior ER visits Differential Diagnosis (chest pain, altered mental status, abdominal pain women, abdominal pain men, vaginal bleeding, weakness, fever, dyspnea, syncope, headache, dizziness, GI bleed, back pain, seizure, CVA, palpatations, mental health, musculoskeletal)? @ -Differential Back Pain:Strain, zoster, cauda equina syndrome, epidural abscess, vertebral osteomyelitis, discitis, fracture, subluxation, disc herniation, DJD, spinal stenosis, dissection, AAA, pancreatitis, peptic ulcer disease, pyelonephritis, kidney stone, this is not meant to be an all-inclusive list. EKG interpreted by me (3pts min.). @ -None done X-rays interpreted by me (1pt min.). @ -[None done] CT interpreted by me (1pt min.). @ -[None done] U/S interpreted by me (1pt. min.). @ -[None done] What testing was considered but not performed or refused? (CT, X-rays, U/S, labs)? Why? @ -Cervical spine/thoracic spine imaging considered however patient denies any new injuries or traumas. Pain is chronic for typical pain exacerbations. Patient is agreeable. What meds were considered but not given or refused? Why? @ -[None] Did you discuss the management of the patient with other professionals (professionals i.e. MAGGIE Oliveros, FLEET ADMINISTRATIVE ASSISTANT, lab, RT, psych nurse, social secretary, voice over announcer, teacher, sheriffs officer, trimming caser)? Give summary @ -[No] Was smoking cessation discussed for >3mins.? @ -[No] Was critical care preformed (if so, how long)? @ -[No] Were there social determinants of health that impacted care today? How? (Homelessness, low income, unemployed, alcoholism, drug addiction, transportation, low edu. Level, literacy, decrease access to med. care, senior care, rehab)? @ -[No] Was there de-escalation of care discussed even if they declined (Discuss DNR or withdrawal of care, Hospice)? DNR status @ -[No] What co-morbidities impacted this encounter? (DM, HTN, Smoking, COPD, CAD, Cancer, CVA, ARF, Chemo, Hep., AIDS, mental health diagnosis, sleep apnea, morbid obesity)? @ -Chronic back pain Was patient admitted / discharged? Hospital course, mention meds given and route, prescriptions, significant lab abnormalities, going to OR and other pertinent info. @ -Discharge. 59-year-old male presented to ER via EMS for evaluation of chronic back pain. Patient is well-known to this emergency department for similar complaint. Patient was discharged earlier this morning for similar complaint. Vital signs stable. Patient in no signs of acute distress and is neurovascularly intact. Given no specific injury patient essentially strained neck muscle. I discussed with patient as there is no specific movement is believed to be a neck strain and imaging of cervical spine would not be beneficial. Patient is agreeable. Patient provided with symptomatic treatment emergency department and will be discharged stable condition advised follow-up closely with neurosurgeon out of [facility]. Patient reports he has saud eone to give him a ride down there either tomorrow or the next day. Return parameters discussed. Patient discharged stable condition. Patient verbally expressed understand agree with care plan. Case discussed with ED attending by Dr. Dawson. Undiagnosed new problem with uncertain prognosis? @ -[No] Drug Therapy requiring intensive monitoring for toxicity (Heparin, Nitro, Insulin, Cardizem)? @ -[No] Were any procedures done? @ -[No] Diagnosis/symptom? @ -Muscle strain/chronic pain Acute, or Chronic, or Acute on Chronic? @ -chronic Uncomplicated (without systemic symptoms) or Complicated (systemic symptoms)? @ -Uncomplicated Side effects of treatment? @ -[No] Exacerbation, Progression, or Severe Exacerbation? @ -[No] Poses a threat to life or bodily function? How? (Chest pain, USA, NH, pneumonia, PE, COPD, DKA, ARF, appy, cholecystitis, CVA, Diverticulitis, Homicidal, Suicidal, threat to staff... and all critical care pts) @ -[No] Disposition Clinical Impression: Chronic neck pain Disposition: HOME SELF-CARE Condition: Stable Instructions (If sedation given, give patient instructions): Acute Low Back Pain (ED) Additional Instructions: Follow-up with neurosurgeon I would recommend calling them at discharge. Vincent w-up with PCP. Is patient prescribed a controlled substance at d/c from ED?: No Referrals: González Muñiz MD [Primary Care Provider] - 1-2 days Time of Disposition: 13:59
[2025-01-28] MEDS: HYDROmorphone 0.5 MG/0.5 ML SYRINGE IVP STA (14:03)
[2025-01-28] MEDS: ORPHENADRINE 30 MG/ML 2 ML VIAL IVP STA (14:03)
[2025-01-28] MEDS: LIDOCAINE 4% PATCH TOPICAL ONE (14:04)
[2025-01-28 14:12] VITALS: BP 171/93; PULSE 99; RESP 16
== END 2025-01-28 14:11 | disposition home or self-care (01) ==
LOC: EC 13:24
DX: M54.2 Cervicalgia (principal); G89.29 Other chronic pain; Z88.8 Allergy status to other drugs, medicaments and biological substances; Z88.1 Allergy status to other antibiotic agents
CPT/HCPCS: 99284; 96374; 96375; J2360; J1171

== ENCOUNTER 2025-01-28 20:57 | Emergency (ER) | payer OTHER ==
[2025-01-28 21:02] VITALS: BP 170/140; PULSE 123; RESP 21; TEMP 97.9
--- NOTE | 2025-01-28 21:13 | ED ---
Recheck HPI - General Chief Complaint: Back Pain/Injury Stated Complaint: Back Pain, R Arm Numbness/Neck Time Seen by Provider: 01/28/25 21:07 Source: patient, RN notes reviewed, old records reviewed Mode of arrival: ambulatory Limitations: no limitations - History of Present Illness Initial Comments: This is a 59 male to the ER for evaluation patient is here for severe back pain MD Complaint: other -: days(s) Returns Today for: Called Because of Abnormal Lab/Test, persistent/worsening pain related to initial visit Symptoms Since Prior Visit: worsening pain Associated Symptoms: none - Related Data Home Medications Medication Instructions Recorded Confirmed Insulin Lispro [humaLOG Kwikpen] See Protocol SQ ACHS 06/16/21 10/31/24 Insulin Glargine,Hum.rec.anlog 34 units SQ DAILY 10/20/22 10/31/24 [Lantus Solostar Pen] Gabapentin 600 mg PO TID 03/25/24 10/31/24 Insulin Lispro [humaLOG Kwikpen] 10 unit SQ TID-W/MEALS 03/25/24 10/31/24 methocarbamoL [Robaxin-750] 750 mg PO TID 03/25/24 10/31/24 oxyCODONE-APAP 5-325MG [Percocet 1 tab PO QID 04/29/24 10/31/24 5-325 mg] Nitroglycerin Sl Tabs [Nitrostat] 0.4 mg SUBLINGUAL Q5M PRN 06/14/24 10/31/24 Apixaban [Eliquis] 5 mg PO BID 10/31/24 10/31/24 Atorvastatin [Lipitor] 20 mg PO DAILY 10/31/24 10/31/24 Insulin Glargine,Hum.rec.anlog 34 units SQ HS PRN 10/31/24 10/31/24 [Lantus Solostar Pen] Isosorbide Mononitrate ER [Imdur] 30 mg PO DAILY 10/31/24 10/31/24 Losartan [Cozaar] 50 mg PO DAILY 10/31/24 10/31/24 Omeprazole [PriLOSEC] 40 mg PO DAILY 10/31/24 10/31/24 amLODIPine [Norvasc] 5 mg PO DAILY 10/31/24 10/31/24 carvediloL [Coreg] 6.25 mg PO BID 10/31/24 10/31/24 Allergies Allergy/AdvReac Type Severity Reaction Status Date / Time doxycycline Allergy Swelling Verified 01/28/25 21:02 ketorolac tromethamine Allergy Rash/Hives Verified 01/28/25 21:02 [From Toradol] morphine Allergy Rash/Hives Verified 01/28/25 21:02 metoclopramide HCl AdvReac Dystonic Verified 01/28/25 21:02 [From Reglan] Reaction prochlorperazine edisylate AdvReac Dystonic Verified 01/28/25 21:02 [From Compazine] Reaction prochlorperazine maleate AdvReac Dystonic Verified 01/28/25 21:02 [From Compazine] Reaction Review of Systems ROS Statement: Those systems with pertinent positive or pertinent negative responses have been documented in the HPI. ROS Other: All systems not noted in ROS Statement are negative. Past Medical History Past Medical History: Asthma, Coronary Artery Disease (CAD), Cancer, Chest Pain / Angina, Diabetes Mellitus, GERD/Reflux, GI Bleed, Hyperlipidemia, Hypertension, Myocardial Infarction (PR), Mitral Valve Prolapse (MVP), Pulmonary Embolus (PE), Sleep Apnea/CPAP/BIPAP Additional Past Medical History / Comment(s): Asthmatic bronchitis-chronic, IDDM type II, neuropathy bilateral feet, lower and upper GI bleeds, PUD, diverticulitis, colectomy d/t benign mass/intusseption, BPH, renal cysts, nephrolithiais, UTI with sepsis, chronic back pain 2ndary to herniated lumbar discs/sciatica, JARED does not use his Cpap, MVP, murmur, chronic dysphagia, colon cancer Last Myocardial Infarction Date:: 2011 History of Any Multi-Drug Resistant Organisms: C-DIFF, MRSA Date of last positivie culture/infection: 2015 MDRO Source:: left axilla Past Surgical History: Appendectomy, Back Surgery, Cholecystectomy, Heart Catheterization, Hernia Repair, Orthopedic Surgery Additional Past Surgical History / Comment(s): Lumbar decompression/fusion /laminectomy, spinal stimulator, T lift procedure, L inguinal hernia repair, multiple ESWLs/stents/double J caths, colonoscopy, 02/2020 colectomy, EGDs for food obstructions and dilations, NERVE STIMULATOR Past Anesthesia/Blood Transfusion Reactions: No Reported Reaction Past Psychological History: No Psychological Hx Reported Smoking Status: Never smoker Past Alcohol Use History: None Reported Past Drug Use History: None Reported - Past Family History Father Family Medical History: Chest Pain / Angina Additional Family Medical History / Comment(s): "lung problems" Mother Family Medical History: Blood Disorder, Cancer, Chest Pain / Angina, Congestive Heart Failure (CHF), Osteoarthritis (OA), Thyroid Disorder Additional Family Medical History / Comment(s): "digging machine operator cancer" blood clots General Exam Limitations: no limitations General appearance: alert, in no apparent distress Head exam: Present: atraumatic, normocephalic, normal inspection Eye exam: Present: normal appearance, PERRL, EOMI. Absent: scleral icterus, conjunctival injection, periorbital swelling ENT exam: Present: normal exam, mucous membranes moist Neck exam: Present: normal inspection. Absent: tenderness, meningismus, lymphadenopathy Respiratory exam: Present: normal lung sounds bilaterally. Absent: respiratory distress, wheezes, rales, rhonchi, stridor Cardiovascular Exam: Present: regular rate, normal rhythm, normal heart sounds. Absent: systolic murmur, diastolic murmur, rubs, gallop, clicks GI/Abdominal exam: Present: soft, normal bowel sounds. Absent: distended, tenderness, guarding, rebound, rigid Extremities exam: Present: normal inspection, full ROM, normal capillary refill. Absent: tenderness, pedal edema, joint swelling, calf tenderness Back exam: Present: normal inspection Neurological exam: Present: alert, oriented X3, CN II-XII intact Psychiatric exam: Present: normal affect, normal mood Skin exam: Present: warm, dry, intact, normal color. Absent: rash Course Vital Signs 01/28/25 20:58 Temperature 97.9 F Pulse Rate 123 H Respiratory 21 Rate Blood Pressure 170/140 O2 Sat by Pulse 99 Oximetry - Reevaluation(s) Reevaluation #1: 01/28/25 21:12 Medical records reviewed Reevaluation #2: 01/28/25 21:12 Patient symptoms improved Reevaluation #3: 01/28/25 21:13 Patient informed of results questions answered Reevaluation #4: Was pt. sent in by a medical professional or institution (, PA, CISSP, urgent care, hospital, or snf...) When possible be specific @ -no Did you speak to anyone other than the patient for history (EMS, parent, family, police, friend...)? What history was obtained from this source @ -no Did you review nursing and triage notes (agree or disagree)? Why? @ -agree Are old charts reviewed (outside hosp., previous admission, EMS record, old EKG, old radiological studies, urgent care reports/EKG's, snf records)? Report findings @ -yes Differential Diagnosis (chest pain, altered mental status, abdominal pain women, abdominal pain men, vaginal bleeding, weakness, fever, dyspnea, syncope, headache, dizziness, GI bleed, back pain, seizure, CVA, palpatations, mental health, musculoskeletal)? @ -prior EKG interpreted by me (3pts min.). @ -yes X-rays interpreted by me (1pt min.). @ -yes negative for acute disease CT interpreted by me (1pt min.). @ -no U/S interpreted by me (1pt. min.). @ -no What testing was considered but not performed or refused? (CT, X-rays, U/S, labs)? Why? @ -none What meds were considered but not given or refused? Why? @ -none Did you discuss the management of the patient with other professionals (professionals i.e. , PA, CISSP, lab, RT, psych nurse, social service worker, business planner, teacher, drug abuse resistance education officer, case management director)? Give summary @ -no Was smoking cessation discussed for >3mins.? @ -no Was critical care preformed (if so, how long)? @ -no Were there social determinants of health that impacted care today? How? (Homelessness, low income, unemployed, alcoholism, drug addiction, transportation, low edu. Level, literacy, decrease access to med. care, detention, rehab)? @ -none Was there de-escalation of care discussed even if they declined (Discuss DNR or withdrawal of care, Hospice)? DNR status @ -no What co-morbidities impacted this encounter? (DM, HTN, Smoking, COPD, CAD, Cancer, CVA, ARF, Chemo, Hep., AIDS, mental health diagnosis, sleep apnea, morbid obesity)? @ -none Was patient admitted / discharged? Hospital course, mention meds given and route, prescriptions, significant lab abnormalities, going to OR and other pertinent info. @ - Undiagnosed new problem with uncertain prognosis? @ -no Drug Therapy requiring intensive monitoring for toxicity (Heparin, Nitro, Insulin, Cardizem)? @ -no Were any procedures done? @ -no Diagnosis/symptom? @ - Acute, or Chronic, or Acute on Chronic? @ -Acute Uncomplicated (without systemic symptoms) or Complicated (systemic symptoms)? @ -Complicated Side effects of treatment? @ -no Exacerbation, Progression, or Severe Exacerbation? @ -exacerbation Poses a threat to life or bodily function? How? (Chest pain, USA, PR, pneumonia, PE, COPD, DKA, ARF, appy, cholecystitis, CVA, Diverticulitis, Homicidal, Suicidal, threat to staff... and all critical care pts) @ -yes Reevaluation #5: Differential Back Pain: Strain, zoster, cauda equina syndrome, epidural abscess, vertebral osteomyeliti s, discitis, fracture, subluxation, disc herniation, DJD, spinal stenosis, dissection, AAA, pancreatitis, peptic ulcer disease, pyelonephritis, kidney stone, this is not meant to be an all-inclusive list. Medical Decision Making - Medical Decision Making 59 male acute on chronic pain chronic back pain patient can be discharged home Disposition Clinical Impression: Chronic neck pain, Chronic back pain Disposition: HOME SELF-CARE Condition: Fair Instructions (If sedation given, give patient instructions): Acute Low Back Pain (ED) Is patient prescribed a controlled substance at d/c from ED?: No Referrals: González Muñiz MD [Primary Care Provider] - 1-2 days Time of Disposition: 21:00
[2025-01-28] MEDS: HYDROmorphone 1 MG/ML 1 ML SYRINGE IM STA (21:33)
== END 2025-01-28 21:42 | disposition home or self-care (01) ==
LOC: EC 20:57
DX: M54.2 Cervicalgia (principal); M54.50 Low back pain, unspecified; G89.29 Other chronic pain; Z88.8 Allergy status to other drugs, medicaments and biological substances; Z88.1 Allergy status to other antibiotic agents; Z88.5 Allergy status to narcotic agent; Z88.6 Allergy status to analgesic agent
CPT/HCPCS: 99283; 96372; J1171

== ENCOUNTER 2025-02-04 16:16 | Emergency (ER) | payer OTHER ==
[2025-02-04 16:48] VITALS: TEMP 98
--- NOTE | 2025-02-04 16:54 | ED ---
Back Pain HPI - General Source: patient Limitations: no limitations <Dominick Garibay - Last Filed: 02/04/25 16:53> - General Source: patient, RN notes reviewed, old records reviewed Limitations: no limitations - History of Present Illness MD Complaint: back pain -: year(s) Similar Symptoms Previously: Yes Place: home Radiation: none Severity: severe Severity scale (1-10): 9 Quality: sharp Consistency: constant Improves With: none Worsens With: none <Gatito Casas - Last Filed: 02/04/25 21:56> - General Chief Complaint: Back Pain/Injury Stated Complaint: Back and neck pain Time Seen by Provider: 02/04/25 16:54 - History of Present Illness Initial Comments: Quick note: 59-year-old male presenting with chief complaint of neck and upper back pain. Patient has a history of chronic pain. States that he strained the area while lifting his mother yesterday. (Dominick Garibay) This is a 59 male to ER for evaluation of chest pain and back pain chronic pain (Gatito Casas) - Related Data Home Medications Medication Instructions Recorded Confirmed Insulin Lispro [humaLOG Kwikpen] See Protocol SQ ACHS 06/16/21 10/31/24 Insulin Glargine,Hum.rec.anlog 34 units SQ DAILY 10/20/22 10/31/24 [Lantus Solostar Pen] Gabapentin 600 mg PO TID 03/25/24 10/31/24 Insulin Lispro [humaLOG Kwikpen] 10 unit SQ TID-W/MEALS 03/25/24 10/31/24 methocarbamoL [Robaxin-750] 750 mg PO TID 03/25/24 10/31/24 oxyCODONE-APAP 5-325MG [Percocet 1 tab PO QID 04/29/24 10/31/24 5-325 mg] Nitroglycerin Sl Tabs [Nitrostat] 0.4 mg SUBLINGUAL Q5M PRN 06/14/24 10/31/24 Apixaban [Eliquis] 5 mg PO BID 10/31/24 10/31/24 Atorvastatin [Lipitor] 20 mg PO DAILY 10/31/24 10/31/24 Insulin Glargine,Hum.rec.anlog 34 units SQ HS PRN 10/31/24 10/31/24 [Lantus Solostar Pen] Isosorbide Mononitrate ER [Imdur] 30 mg PO DAILY 10/31/24 10/31/24 Losartan [Cozaar] 50 mg PO DAILY 10/31/24 10/31/24 Omeprazole [PriLOSEC] 40 mg PO DAILY 10/31/24 10/31/24 amLODIPine [Norvasc] 5 mg PO DAILY 10/31/24 10/31/24 carvediloL [Coreg] 6.25 mg PO BID 10/31/24 10/31/24 Allergies Allergy/AdvReac Type Severity Reaction Status Date / Time doxycycline Allergy Swelling Verified 01/28/25 21:02 ketorolac tromethamine Allergy Rash/Hives Verified 01/28/25 21:02 [From Toradol] morphine Allergy Rash/Hives Verified 01/28/25 21:02 metoclopramide HCl AdvReac Dystonic Verified 01/28/25 21:02 [From Reglan] Reaction prochlorperazine edisylate AdvReac Dystonic Verified 01/28/25 21:02 [From Compazine] Reaction prochlorperazine maleate AdvReac Dystonic Verified 01/28/25 21:02 [From Compazine] Reaction Review of Systems ROS Other: All systems not noted in ROS Statement are negative. <Dominick Garibay - Last Filed: 02/04/25 16:53> ROS Other: All systems not noted in ROS Statement are negative. <Gatito Casas - Last Filed: 02/04/25 21:56> ROS Statement: Those systems with pertinent positive or pertinent negative responses have been documented in the HPI. Past Medical History Past Medical History: Asthma, Coronary Artery Disease (CAD), Cancer, Chest Pain / Angina, Diabetes Mellitus, GERD/Reflux, GI Bleed, Hyperlipidemia, Hypertension, Myocardial Infarction (VT), Mitral Valve Prolapse (MVP), Pulmonary Embolus (PE), Sleep Apnea/CPAP/BIPAP Additional Past Medical History / Comment(s): Asthmatic bronchitis-chronic, IDDM type II, neuropathy bilateral feet, lower and upper GI bleeds, PUD, diverticulitis, colectomy d/t benign mass/intusseption, BPH, renal cysts, nephrolithiais, UTI with sepsis, chronic back pain 2ndary to herniated lumbar discs/sciatica, JARED does not use his Cpap, MVP, murmur, chronic dysphagia, colon cancer Last Myocardial Infarction Date:: 2011 History of Any Multi-Drug Resistant Organisms: C-DIFF, MRSA Date of last positivie culture/infection: 2015 MDRO Source:: left axilla Past Surgical History: Appendectomy, Back Surgery, Cholecystectomy, Heart Catheterization, Hernia Repair, Orthopedic Surgery Additional Past Surgical History / Comment(s): Lumbar decompression/fusion/laminectomy, spinal stimulator, T lift procedure, L inguinal hernia repair, multiple ESWLs/stents/double J caths, colonoscopy, 02/2020 colectomy, EGDs for food obstructions and dilations, NERVE STIMULATOR Past Anesthesia/Blood Transfusion Reactions: No Reported Reaction Past Psychological History: No Psychological Hx Reported Smoking Status: Never smoker Past Alcohol Use History: None Reported Past Drug Use History: None Reported - Past Family History Father Family Medical History: Chest Pain / Angina Additional Family Medical History / Comment(s): "lung problems" Mother Family Medical History: Blood Disorder, Cancer, Chest Pain / Angina, Congestive Heart Failure (CHF), Osteoarthritis (OA), Thyroid Disorder Additional Family Medical History / Comment(s): "bridge operator slip cancer" blood clots <Dominick Garibay - Last Filed: 02/04/25 16:53> General Exam Limitations: no limitations <Dominick Garibay - Last Filed: 02/04/25 16:53> General appearance: alert, in no apparent distress Head exam: Present: atraumatic, normocephalic, normal inspection Eye exam: Present: normal appearance, PERRL, EOMI. Absent: scleral icterus, conjunctival injection, periorbital swelling ENT exam: Present: normal exam, mucous membranes moist Neck exam: Present: normal inspection. Absent: tenderness, meningismus, lymphadenopathy Respiratory exam: Present: normal lung sounds bilaterally. Absent: respiratory distress, wheezes, rales, rhonchi, stridor Cardiovascular Exam: Present: regular rate, normal rhythm, normal heart sounds. Absent: systolic murmur, diastolic murmur, rubs, gallop, clicks GI/Abdominal exam: Present: soft, normal bowel sounds. Absent: distended, tenderness, guarding, rebound, rigid Extremities exam: Present: normal inspection, full ROM, normal capillary refill. Absent: tenderness, pedal edema, joint swelling, calf tenderness Back exam: Present: normal inspection Neurological exam: Present: alert, oriented X3, CN II-XII intact Psychiatric exam: Present: normal affect, normal mood Skin exam: Present: warm, dry, intact, normal color. Absent: rash <Gatito Casas - Last Filed: 02/04/25 21:56> - General Exam Comments Initial Comments: Visual Physical Exam Vital signs reviewed General: Well-appearing, nontoxic, no acute distress. Head: Normocephalic, atraumatic Eyes: PERRLA, EOMI ENT: Airway patent Chest: Nonlabored breathing Skin: No visual rash, normal skin tone Neuro: Alert and oriented 3 Musculoskeletal: No gross abnormalities (Dominick Garibay) Course <Gatito Casas - Last Filed: 02/04/25 21:56> Vital Signs 02/04/25 02/04/25 16:47 19:37 Temperature 98 F Pulse Rate 100 96 Respiratory 20 18 Rate Blood Pressure 132/73 116/80 O2 Sat by Pulse 97 97 Oximetry - Reevaluation(s) Reevaluation #1: 02/04/25 21:55 Medical records reviewed (Gatito Casas) Reevaluation #2: 02/04/25 21:55 Patient's pain is resolved (Gatito Casas) Reevaluation #3: 02/04/25 21:55 Patient informed of results questions answered (Gatito Casas) Reevaluation #4: Was pt. sent in by a medical professional or institution (, PA, DIRECTOR OF COMMUNITY LIFE, urgent care, hospital, or residential...) When possible be specific @ -no Did you speak to anyone other than the patient for history (EMS, parent, family, police, friend...)? What history was obtained from this source @ -no Did you review nursing and triage notes (agree or disagree)? Why? @ -agree Are old charts reviewed (outside hosp., previous admission, EMS record, old EKG, old radiological studies, urgent care reports/EKG's, residential records)? Report findings @ -yes Differential Diagnosis (chest pain, altered mental status, abdominal pain women, abdominal pain men, vaginal bleeding, weakness, fever, dyspnea, syncope, headache, dizziness, GI bleed, back pain, seizure, CVA, palpatations, mental health, musculoskeletal)? @ -prior EKG interpreted by me (3pts min.). @ -yes X-rays interpreted by me (1pt min.). @ -yes negative for acute disease CT interpreted by me (1pt min.). @ -no U/S interpreted by me (1pt. min.). @ -no What testing was considered but not performed or refused? (CT, X-rays, U/S, labs)? Why? @ -none What meds were considered but not given or refused? Why? @ -none Did you discuss the management of the patient with other professionals (professionals i.e. , PA, DIRECTOR OF COMMUNITY LIFE, lab, RT, psych nurse, aids social worker, retail helper, teacher, jailer/training officer, hospice case manager)? Give summary @ -no Was smoking cessation discussed for >3mins.? @ -no Was critical care preformed (if so, how long)? @ -no Were there social determinants of health that impacted care today? How? (Homelessness, low income, unemployed, alcoholism, drug addiction, transportation, low edu. Level, literacy, decrease access to med. care, residential, rehab)? @ -none Was there de-escalation of care discussed even if they declined (Discuss DNR or withdrawal of care, Hospice)? DNR status @ -no What co-morbidities impacted this encounter? (DM, HTN, Smoking, COPD, CAD, Cancer, CVA, ARF, Chemo, Hep., AIDS, mental health diagnosis, sleep apnea, morbid obesity)? @ -none Was patient admitted / discharged? Hospital course, mention meds given and route, prescriptions, significant lab abnormalities, going to OR and other pertinent info. @ - Undiagnosed new problem with uncertain prognosis? @ -no Drug Therapy requiring intensive monitoring for toxicity (Heparin, Nitro, Insulin, Cardizem)? @ -no Were any procedures done? @ -no Diagnosis/symptom? @ - Acute, or Chronic, or Acute on Chronic? @ -Acute Uncomplicated (without systemic symptoms) or Complicated (systemic symptoms)? @ -Complicated Side effects of treatment? @ -no Exacerbation, Progression, or Severe Exacerbation? @ -exacerbation Poses a threat to life or bodily function? How? (Chest pain, USA, VT, pneumonia, PE, COPD, DKA, ARF, appy, cholecystitis, CVA, Diverticulitis, Homicidal, Suicidal, threat to staff... and all critical care pts) @ -yes (Gatito Casas) Reevaluation #5: Differential Back Pain: Strain, zoster, cauda equina syndrome, epidural abscess, vertebral osteomyeliti s, discitis, fracture, subluxation, disc herniation, DJD, spinal stenosis, dissection, AAA, pancreatitis, peptic ulcer disease, pyelonephritis, kidney stone, this is not meant to be an all-inclusive list. (Gatito Casas) Medical Decision Making <Dominick Garibay - Last Filed: 02/04/25 16:53> <Gatito Casas - Last Filed: 02/04/25 21:56> - Medical Decision Making I performed the quick note portion of this visit, electronically signed Dominick Garibay PA-C (Dominick Garibay) 59 male to ER for evaluation of severe back pain here in the ER back pain improved patient can be discharged (Gatito Casas) Disposition <Dominick Garibay - Last Filed: 02/04/25 16:53> Is patient prescribed a controlled substance at d/c from ED?: No Time of Disposition: 19:00 <Gatito Casas - Last Filed: 02/04/25 21:56> Clinical Impression: Mechanical back pain, Mid back pain Disposition: HOME SELF-CARE Condition: Fair Instructions (If sedation given, give patient instructions): Acute Low Back Pain (ED) Referrals: González Muñiz MD [Primary Care Provider] - 1-2 days
[2025-02-04] MEDS: HYDROmorphone 1 MG/ML 1 ML SYRINGE IM STA (19:35)
[2025-02-04 19:39] VITALS: BP 116/80; PULSE 96; RESP 18
== END 2025-02-04 19:39 | disposition home or self-care (01) ==
LOC: EC 16:16
DX: M54.9 Dorsalgia, unspecified (principal); Z88.8 Allergy status to other drugs, medicaments and biological substances; Z88.5 Allergy status to narcotic agent; Z88.6 Allergy status to analgesic agent
CPT/HCPCS: 99282; 96372; J1171